=== PATIENT | female | born 1945 | race Caucasian/White ===

== ENCOUNTER 2017-12-07 15:59 | Inpatient (IN) | payer MEDICARE ==
[2017-12-07 16:52] LABS: Basophils % (A) 0 %; Eosinophils # (A) 0.1 k/uL (0-0.7); Eosinophils % (A) 1 %; HGB 13.3 gm/dL (11.4-16.0); Lymphocytes # (A) 1.9 k/uL (1.0-4.8); Lymphocytes % (A) 23 %; MCH 28.7 pg (25.0-35.0); MCHC 31.5 g/dL (31.0-37.0); MCV 90.9 fL (80.0-100.0); Mean Platelet Volume 6.8; Monocytes # (A) 0.4 k/uL (0-1.0); Monocytes % (A) 5 %; Neutrophils # (A) 5.6 k/uL (1.3-7.7); Neutrophils % (A) 69 %; Platelet Count 213 k/uL (150-450); RBC 4.62 m/uL (3.80-5.40); RDW 13.9 % (11.5-15.5); WBC 8.2 k/uL (3.8-10.6)
--- NOTE | 2017-12-07 16:53 | ED ---
General Adult HPI - General Chief complaint: Arrhythmia/Palpitations Stated complaint: Abnormal EKG, SOB Time Seen by Provider: 12/07/17 16:08 Source: patient Mode of arrival: wheelchair Limitations: no limitations - History of Present Illness Initial comments: This is a 72-year-old female who presents emergency department for shortness of breath and a shaking sensation. She states it started 3 days ago. She states that she is vibrating. She states that it feels similar to when she had a viral pneumonia in the past. She denies any fevers or chills. No lower extremity swelling. No abdominal pain. No nausea, vomiting, or diarrhea. She went to a [facility] who did an EKG and were concerned due to EKG abnormalities and sent her here. Patient denies any chest pain. She follows with Dr. Watson who is her supervisor net making and had an echo and a stress test recently that were unremarkable. No other complaints. - Related Data Home Medications Medication Instructions Recorded Confirmed Levothyroxine Sodium [Synthroid] 175 mcg PO DAILY 05/07/14 12/07/17 Insulin Aspart Protam & Aspart 40 unit SQ AC-TID 12/07/17 12/07/17 [Novolog Mix 70-30 Flexpen Syrn] Metoprolol Tartrate [Lopressor] 12.5 mg PO BID 12/07/17 12/07/17 Allergies Allergy/AdvReac Type Severity Reaction Status Date / Time nitrofurantoin Allergy Rash/Hives Verified 12/07/17 17:30 macrocrystalline [From Macrodantin] phenazopyridine HCl Allergy Rash/Hives Verified 12/07/17 17:30 [From Pyridium] Review of Systems ROS Statement: Those systems with pertinent positive or pertinent negative responses have been documented in the HPI. ROS Other: All systems not noted in ROS Statement are negative. Past Medical History Past Medical History: Atrial Fibrillation, Diabetes Mellitus, Hearing Disorder / Deafness, Hyperlipidemia, Osteoarthritis (OA), Sleep Apnea/CPAP/BIPAP, Thyroid Disorder Additional Past Medical History / Comment(s): USES BIPAP, HX AORTIC STENOSIS. HX A-FIB WITH PNEUMONIA,CATARACT LT EYE History of Any Multi-Drug Resistant Organisms: VRE Date of last positivie culture/infection: 02/02/13 MDRO Source:: URINE Past Surgical History: Joint Replacement, Orthopedic Surgery, Tonsillectomy, Tubal Ligation Additional Past Surgical History / Comment(s): JOSEPH THUMB JOINTS REPLACED; JOSEPH CTR; JOSEPH KNEE ARTHROSCOPIES; TOTAL RT KNEE 04/2013, LATER HAD MANIPULATION OF KNEE. HAD THYROID AND PARATHYROID REMOVAL. TOTAL LEFT KNEE REPLACEMENT, CATARACT RT EYE Past Anesthesia/Blood Transfusion Reactions: No Reported Reaction Past Psychological History: No Psychological Hx Reported Smoking Status: Never smoker Past Alcohol Use History: None Reported Past Drug Use History: None Reported - Past Family History Sister(s) Family Medical History: Cancer Additional Family Medical History / Comment(s): BREAST CANCER General Exam - General Exam Comments Initial Comments: Constitutional: Awake alert Appears comfortable Head: Normocephalic atraumatic Eyes: no conjunctival injection No scleral icterus EOMI Neck: No JVD Supple Heart: Regular rate rhythm normal S1-S2 no murmurs Lungs: Clear to auscultation bilaterally No wheezing No rales Abdomen: Soft nondistended nontender Extremities: Non edematous DP pulses intact Radial pulses intact Neuro: A&Ox3 No focal neurologic deficits Psych: Appropriate mood and affect Limitations: no limitations Course Vital Signs 12/07/17 12/07/17 12/07/17 16:01 16:53 17:36 Temperature 98.8 F Pulse Rate 66 66 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 There is a marked first-degree AV block with a ME of 302. There is no abnormal ST segment changes or T-wave inversions. QTC is 455. Other intervals normal. No ectopy. Medical Decision Making - Medical Decision Making This is a 72-year-old female who presents emergency report for exertional dyspnea and a vibrating sensation in her chest. The patient does have a marked first-degree AV block on her EKG. I got her up and ambulated her and she became extremely tachypneic and short of breath. She did not become hypoxic however heart rate did dip down into the 40s at that time. She states that that time is when she felt the vibrating sensation in her chest. His troponin is mildly elevated. Due to her history of aortic stenosis, the exertional components of her examination, and the bradycardia I'm concerned about her heart. I think that she needs to stay in the hospital and be evaluated by a supervisor net making. Dr. Parikh accepts the admission. - Lab Data Result diagrams: 12/07/17 16:32 12/07/17 16:32 Lab Results 12/07/17 12/07/17 12/07/17 Range/Units 16:32 16:32 16:32 WBC 8.2 (3.8-10.6) k/uL RBC 4.62 (3.80-5.40) m/uL Hgb 13.3 (11.4-16.0) gm/dL Hct 42.0 (34.0-46.0) % MCV 90.9 (80.0-100.0) fL MCH 28.7 (25.0-35.0) pg MCHC 31.5 (31.0-37.0) g/dL RDW 13.9 (11.5-15.5) % Plt Count 213 (150-450) k/uL Neutrophils % 69 % Lymphocytes % 23 % Monocytes % 5 % Eosinophils % 1 % Basophils % 0 % Neutrophils # 5.6 (1.3-7.7) k/uL Lymphocytes # 1.9 (1.0-4.8) k/uL Monocytes # 0.4 (0-1.0) k/uL Eosinophils # 0.1 (0-0.7) k/uL Basophils # 0.0 (0-0.2) k/uL PT (9.0-12.0) sec INR (<1.2) APTT (22.0-30.0) sec Sodium 142 (137-145) mmol/L Potassium 4.5 (3.5-5.1) mmol/L Chloride 104 (98-107) mmol/L Carbon Dioxide 28 (22-30) mmol/L Anion Gap 10 mmol/L BUN 9 (7-17) mg/dL Creatinine 0.77 (0.52-1.04) mg/dL Est GFR (MDRD) Af Amer >60 (>60 ml/min/1.73 sqM) Est GFR (MDRD) Non-Af >60 (>60 ml/min/1.73 sqM) Glucose 146 H (74-99) mg/dL Calcium 9.8 (8.4-10.2) mg/dL Magnesium 1.5 L (1.6-2.3) mg/dL Total Bilirubin 0.5 (0.2-1.3) mg/dL AST 25 (14-36) U/L ALT 35 (9-52) U/L Alkaline Phosphatase 89 (38-126) U/L CK-MB (CK-2) 2.1 (0.0-2.4) ng/mL Troponin I 0.038 H* (0.000-0.034) ng/mL NT-Pro-B Natriuret Pep pg/mL Total Protein 6.8 (6.3-8.2) g/dL Albumin 4.1 (3.5-5.0) g/dL 12/07/17 12/07/17 Range/Units 16:32 16:32 WBC (3.8-10.6) k/uL RBC (3.80-5.40) m/uL Hgb (11.4-16.0) gm/dL Hct (34.0-46.0) % MCV (80.0-100.0) fL MCH (25.0-35.0) pg MCHC (31.0-37.0) g/dL RDW (11.5-15.5) % Plt Count (150-450) k/uL Neutrophils % % Lymphocytes % % Monocytes % % Eosinophils % % Basophils % % Neutrophils # (1.3-7.7) k/uL Lymphocytes # (1.0-4.8) k/uL Monocytes # (0-1.0) k/uL Eosinophils # (0-0.7) k/uL Basophils # (0-0.2) k/uL PT 10.5 (9.0-12.0) sec INR 1.1 (<1.2) APTT 22.6 (22.0-30.0) sec Sodium (137-145) mmol/L Potassium (3.5-5.1) mmol/L Chloride (98-107) mmol/L Carbon Dioxide (22-30) mmol/L Anion Gap mmol/L BUN (7-17) mg/dL Creatinine (0.52-1.04) mg/dL Est GFR (MDRD) Af Amer (>60 ml/min/1.73 sqM) Est GFR (MDRD) Non-Af (>60 ml/min/1.73 sqM) Glucose (74-99) mg/dL Calcium (8.4-10.2) mg/dL Magnesium (1.6-2.3) mg/dL Total Bilirubin (0.2-1.3) mg/dL AST (14-36) U/L ALT (9-52) U/L Alkaline Phosphatase (38-126) U/L CK-MB (CK-2) (0.0-2.4) ng/mL Troponin I (0.000-0.034) ng/mL NT-Pro-B Natriuret Pep 598 pg/mL Total Protein (6.3-8.2) g/dL Albumin (3.5-5.0) g/dL Disposition Clinical Impression: Exertional dyspnea, Bradycardia, Palpitations, Aortic stenosis Disposition: ADMITTED IP TO THIS [facility] Condition: Stable
[2017-12-07 16:57] LABS: Partial Thromboplastin Time 22.6 sec (22.0-30.0)
--- NOTE | 2017-12-07 16:57 | XR ---
EXAMINATION TYPE: XR chest 2V DATE OF EXAM: 12/07/2017 COMPARISON: 02/03/2013 HISTORY: 72 year-old female shortness of breath TECHNIQUE: PA and lateral views FINDINGS: The cardiomediastinal silhouette, aorta, and pulmonary vasculature are within normal limits. Stable m ild peribronchial cuffing. Strandy left basilar atelectasis. Otherwise, no consolidation or pleural e ffusion. IMPRESSION: Chronic changes, possible chronic bronchitis/asthma. Otherwise, no acute process seen.
[2017-12-07 16:59] LABS: INR 1.1 (<1.2); Prothrombin Time 10.5 sec (9.0-12.0)
[2017-12-07 17:12] LABS: ALT 35 U/L (9-52); AST 25 U/L (14-36); Albumin 4.1 g/dL (3.5-5.0); Alkaline Phosphatase 89 U/L (38-126); Anion Gap 10 mmol/L; Blood Urea Nitrogen 9 mg/dL (7-17); Calcium 9.8 mg/dL (8.4-10.2); Carbon Dioxide 28 mmol/L (22-30); Chloride 104 mmol/L (98-107); Glucose 146 mg/dL (74-99); Magnesium 1.5 mg/dL (1.6-2.3); Potassium 4.5 mmol/L (3.5-5.1); Sodium 142 mmol/L (137-145); Total Bilirubin 0.5 mg/dL (0.2-1.3); Total Protein 6.8 g/dL (6.3-8.2)
[2017-12-07 17:23] LABS: Creatine Kinase MB 2.1 ng/mL (0.0-2.4)
[2017-12-07 17:25] LABS: Troponin I 0.038 ng/mL (0.000-0.034)
[2017-12-07] MEDS ORDERED: ASPIRIN 81 MG PO STA (18:13)
[2017-12-07] MEDS ORDERED: NALOXONE 0.4 MG/ML 1 ML VIAL IV PRN (18:40)
[2017-12-07 19:20] LABS: Appearance,Urine Clear (Clear); Bacteria,Urine Rare /hpf; Bilirubin,Urine Negative (Negative); Blood,Urine Negative (Negative); Color,Urine Light Yellow; Glucose,Urine (UA) Negative (Negative); Ketones,Urine Negative (Negative); Leukocyte Esterase,Urine Trace (Negative); Nitrite,Urine Negative (Negative); Protein,Urine Negative (Negative); RBC,Urine <1 /hpf (0-5); Specific Gravity,Urine 1.005 (1.001-1.035); Urobilinogen,Urine <2.0 mg/dL (<2.0); WBC,Urine 1 /hpf (0-5)
[2017-12-07 20:18] LABS: Glucose,Whole Blood 135 mg/dL (75-99)
[2017-12-07] MEDS ORDERED: METOPROLOL TARTRATE 12.5 MG TAB PO SCH (21:00)
[2017-12-07 23:49] LABS: Creatine Kinase MB 1.9 ng/mL (0.0-2.4)
[2017-12-07 23:50] LABS: Troponin I 0.04 ng/mL (0.000-0.034)
[2017-12-08 05:54] LABS: Basophils # (A) 0.1 k/uL (0-0.2); Basophils % (A) 1 %; Eosinophils # (A) 0.2 k/uL (0-0.7); Eosinophils % (A) 2 %; HCT 39.4 % (34.0-46.0); HGB 12.5 gm/dL (11.4-16.0); Hypochromasia Slight; Lymphocytes # (A) 1.9 k/uL (1.0-4.8); Lymphocytes % (A) 25 %; MCH 28.9 pg (25.0-35.0); MCHC 31.7 g/dL (31.0-37.0); MCV 91.1 fL (80.0-100.0); Mean Platelet Volume 7.5; Monocytes # (A) 0.4 k/uL (0-1.0); Monocytes % (A) 5 %; Neutrophils % (A) 66 %; Platelet Count 189 k/uL (150-450); RBC 4.33 m/uL (3.80-5.40); WBC 7.6 k/uL (3.8-10.6)
[2017-12-08 06:07] LABS: Anion Gap 7 mmol/L; Blood Urea Nitrogen 14 mg/dL (7-17); Calcium 9.2 mg/dL (8.4-10.2); Carbon Dioxide 31 mmol/L (22-30); Chloride 104 mmol/L (98-107); Glucose 87 mg/dL (74-99); Magnesium 1.7 mg/dL (1.6-2.3); Potassium 4.4 mmol/L (3.5-5.1); Sodium 142 mmol/L (137-145)
[2017-12-08] MEDS: INSULN ASP PRT/INSULIN ASPART 100 UNIT/ML 10 ML VIAL SQ SCH ×3 (06:09→17:40)
[2017-12-08] MEDS: LEVOTHYROXINE 100 MCG TAB PO SCH (06:09)
[2017-12-08] MEDS: LEVOTHYROXINE 75 MCG TAB PO SCH (06:09)
[2017-12-08 06:29] LABS: Creatine Kinase MB 1.5 ng/mL (0.0-2.4)
[2017-12-08 06:31] LABS: Glucose,Whole Blood 115 mg/dL (75-99)
[2017-12-08 06:33] LABS: Troponin I 0.042 ng/mL (0.000-0.034)
[2017-12-08] MEDS ORDERED: ACETAMINOPHEN TAB 325 MG TAB PO PRN ×2 (10:32→12:28)
[2017-12-08] MEDS ORDERED: ONDANSETRON 4 MG/2 ML VIAL IVP PRN (12:28)
[2017-12-08 12:33] LABS: Glucose,Whole Blood 185 mg/dL (75-99)
--- NOTE | 2017-12-08 14:33 | P.HPIM ---
History of Present Illness H&P Date: 12/08/17 Chief Complaint: Chest discomfort and vibrating sensation This is a 72-year-old female with past medical history noted below who presented to the emergency room with chest discomfort and upper respiratory tract symptoms. Patient said that for the past few days she has not been feeling well. She described flulike symptoms with no significant shortness of breath. No fevers or chills. No gray chest pain. Patient said that she noted that her heart rate was dropping into the 50s at times. She usually take metoprolol twice a day at home. She went to a local urgent care and a 12 leads EKG was performed showing evidence of first-degree heart block. Patient was sent to the emergency room for further evaluation. She was hemodynamically stable. She reported dizziness and lightheadedness. She is also feeling weak. She was evaluated by electrophysiology and plan is to proceed with pacemaker placement in the morning. Review of Systems Review of system: 14 points review of systems were obtained and were negative except to what were mentioned in the HPI. Past Medical History Past Medical History: Atrial Fibrillation, Diabetes Mellitus, Hearing Disorder / Deafness, Hyperlipidemia, Osteoarthritis (OA), Sleep Apnea/CPAP/BIPAP, Thyroid Disorder Additional Past Medical History / Comment(s): USES BIPAP, HX AORTIC STENOSIS. HX A-FIB WITH PNEUMONIA,CATARACT LT EYE History of Any Multi-Drug Resistant Organisms: VRE Date of last positivie culture/infection: 02/02/13 MDRO Source:: URINE Past Surgical History: Joint Replacement, Orthopedic Surgery, Tonsillectomy, Tubal Ligation Additional Past Surgical History / Comment(s): JOSEPH THUMB JOINTS REPLACED; OJSEPH CTR; JOSEPH KNEE ARTHROSCOPIES; TOTAL RT KNEE 04/2013, LATER HAD MANIPULATION OF KNEE. HAD THYROID AND PARATHYROID REMOVAL. TOTAL LEFT KNEE REPLACEMENT, CATARACT RT EYE Past Anesthesia/Blood Transfusion Reactions: No Reported Reaction Past Psychological History: No Psychological Hx Reported Smoking Status: Never smoker Past Alcohol Use History: None Reported Past Drug Use History: None Reported - Past Family History Sister(s) Family Medical History: Cancer Additional Family Medical History / Comment(s): BREAST CANCER Medications and Allergies Home Medications Medication Instructions Recorded Confirmed Type Levothyroxine Sodium [Synthroid] 175 mcg PO DAILY 05/07/14 12/07/17 History Insulin Aspart Protam & Aspart 20 - 30 unit SQ HS 12/07/17 12/07/17 History [NovoLOG MIX 70-30 Flexpen] Insulin Aspart Protam & Aspart 40 unit SQ AC-TID 12/07/17 12/07/17 History [Novolog Mix 70-30 Flexpen Syrn] Metoprolol Tartrate [Lopressor] 12.5 mg PO BID 12/07/17 12/07/17 History RX: Calcium Carbonate 1,000 mg PO DAILY 12/08/17 12/08/17 History Allergies Allergy/AdvReac Type Severity Reaction Status Date / Time nitrofurantoin Allergy Rash/Hives Verified 12/07/17 17:30 macrocrystalline [From Macrodantin] phenazopyridine HCl Allergy Rash/Hives Verified 12/07/17 17:30 [From Pyridium] Physical Exam Vitals: Vital Signs Temp Pulse Pulse Resp BP BP Pulse Ox 12/08/17 12:00 64 18 138/63 95 12/08/17 08:15 141/69 12/08/17 08:00 47 L 18 165/70 96 12/08/17 04:00 97.3 F L 55 L 16 113/58 98 12/07/17 23:23 98.8 F 55 L 18 109/53 98 12/07/17 20:00 97.9 F 60 18 138/61 97 12/07/17 19:16 99.7 F H 60 18 111/57 100 12/07/17 18:33 44 L 16 131/58 100 12/07/17 17:36 66 18 162/68 98 12/07/17 16:53 66 12/07/17 16:01 98.8 F 66 20 152/67 96 Intake and Output 12/07/17 12/08/17 12/08/17 22:59 06:59 14:59 Intake Total 20 10 200 Balance 20 10 200 Intake: IV 20 10 0.9 20 10 Oral 200 Other: Weight 115.666 kg 115.5 kg General: The patient is awake and alert, in no distress Eye: there is normal conjunctiva bilaterally. Neck: The neck is supple, there is no JVD. Cardiovascular: Normal S1-S2, no S3-S4, no murmurs. Respiratory: Lungs clear to auscultation bilaterally Gastrointestinal: Abdomen is soft, nontender Musculoskeletal: There is no pedal edema. Neurological:. Speech is normal. Skin: Skin is warm and dry Results CBC & Chem 7: 12/08/17 05:21 12/08/17 05:21 Labs: Abnormal Lab Results - Last 24 Hours (Table) 12/07/17 12/07/17 12/07/17 Range/Units 16:32 16:32 18:54 Carbon Dioxide (22-30) mmol/L Glucose 146 H (74-99) mg/dL POC Glucose (mg/dL) (75-99) mg/dL Magnesium 1.5 L (1.6-2.3) mg/dL Total Creatine Kinase (30-135) U/L Troponin I 0.038 H* (0.000-0.034) ng/mL Ur Leukocyte Esterase Trace H (Negative) Urine Bacteria Rare H (None) /hpf 12/07/17 12/07/17 12/08/17 Range/Units 20:17 22:50 05:21 Carbon Dioxide (22-30) mmol/L Glucose (74-99) mg/dL POC Glucose (mg/dL) 135 H (75-99) mg/dL Magnesium (1.6-2.3) mg/dL Total Creatine Kinase 187 H 190 H (30-135) U/L Troponin I 0.040 H* 0.042 H* (0.000-0.034) ng/mL Ur Leukocyte Esterase (Negative) Urine Bacteria (None) /hpf 12/08/17 12/08/17 12/08/17 Range/Units 05:21 06:30 11:23 Carbon Dioxide 31 H (22-30) mmol/L Glucose (74-99) mg/dL POC Glucose (mg/dL) 115 H 185 H (75-99) mg/dL Magnesium (1.6-2.3) mg/dL Total Creatine Kinase (30-135) U/L Troponin I (0.000-0.034) ng/mL Ur Leukocyte Esterase (Negative) Urine Bacteria (None) /hpf Thrombosis Risk Factor Assmnt - Choose All That Apply Any of the Below Risk Factors Present?: Yes Each Factor Represents 1 point: Abnormal pulmonary function (COPD), Obesity ( BMI >25) Each Risk Factor Represents 2 Points: Age 61-74 years Thrombosis Risk Factor Assessment Total Risk Factor Score: 4 Thrombosis Risk Factor Assessment Level: Moderate Risk Assessment and Plan Assessment: 1. Symptomatic first-degree AV block: AL interval 302. I would check thyroid function tests. Metoprolol was discontinued. Patient is hemodynamically stable. She was seen and evaluated by EP. Plan to proceed with pacemaker implantation in the morning. 2. Hypothyroidism awaiting TSH 3. Type 2 diabetes mellitus resume home dose of insulin 4. Hypomagnesemia, replaced Today, I reviewed her medication list and lab work results. Continue current regimen. Appreciate EP recommendations. Repeat lab work in the morning.
[2017-12-08 18:15] LABS: Glucose,Whole Blood 171 mg/dL (75-99)
[2017-12-08] MEDS: HEPARIN SODIUM,PORCINE 5,000 UNIT/ML 1 ML VIAL SQ SCH (19:10)
[2017-12-08] MEDS: SODIUM CHLORIDE 0.9% 1,000 ML IV SCH (19:10)
[2017-12-08 21:16] LABS: Glucose,Whole Blood 152 mg/dL (75-99)
[2017-12-09 06:22] LABS: Glucose,Whole Blood 122 mg/dL (75-99)
[2017-12-09] MEDS: LEVOTHYROXINE 75 MCG TAB PO SCH (06:28)
[2017-12-09] MEDS: LEVOTHYROXINE 100 MCG TAB PO SCH (06:28)
[2017-12-09] MEDS: INSULN ASP PRT/INSULIN ASPART 100 UNIT/ML 10 ML VIAL SQ SCH ×2 (06:29→11:42)
[2017-12-09 06:41] LABS: Basophils # (A) 0.1 k/uL (0-0.2); Basophils % (A) 1 %; Eosinophils # (A) 0.2 k/uL (0-0.7); Eosinophils % (A) 3 %; HCT 44.7 % (34.0-46.0); HGB 13.8 gm/dL (11.4-16.0); Lymphocytes # (A) 2.6 k/uL (1.0-4.8); Lymphocytes % (A) 35 %; MCH 28.4 pg (25.0-35.0); MCHC 30.9 g/dL (31.0-37.0); MCV 91.9 fL (80.0-100.0); Mean Platelet Volume 7.3; Monocytes # (A) 0.4 k/uL (0-1.0); Monocytes % (A) 5 %; Neutrophils # (A) 4.1 k/uL (1.3-7.7); Neutrophils % (A) 55 %; Platelet Count 215 k/uL (150-450); RBC 4.86 m/uL (3.80-5.40); WBC 7.5 k/uL (3.8-10.6)
[2017-12-09 06:54] LABS: ALT 38 U/L (9-52); AST 30 U/L (14-36); Albumin 4.1 g/dL (3.5-5.0); Alkaline Phosphatase 93 U/L (38-126); Anion Gap 12 mmol/L; Blood Urea Nitrogen 17 mg/dL (7-17); Calcium 9.7 mg/dL (8.4-10.2); Carbon Dioxide 27 mmol/L (22-30); Chloride 102 mmol/L (98-107); Glucose 131 mg/dL (74-99); Potassium 4.3 mmol/L (3.5-5.1); Sodium 141 mmol/L (137-145); Total Bilirubin 0.5 mg/dL (0.2-1.3); Total Protein 6.9 g/dL (6.3-8.2)
[2017-12-09 07:48] LABS: T4, Free (Free Thyroxine) 1.25 ng/dL (0.78-2.19)
[2017-12-09] MEDS: HEPARIN SODIUM,PORCINE 5,000 UNIT/ML 1 ML VIAL SQ SCH ×2 (08:29→20:58)
[2017-12-09 11:45] LABS: Glucose,Whole Blood 170 mg/dL (75-99)
--- NOTE | 2017-12-09 12:35 | P.PN ---
Subjective Progress Note Date: 12/09/17 This is a 72-year-old female with past medical history noted below who presented to the emergency room with chest discomfort and upper respiratory tract symptoms. Patient said that for the past few days she has not been feeling well. She described flulike symptoms with no significant shortness of breath. No fevers or chills. No gray chest pain. Patient said that she noted that her heart rate was dropping into the 50s at times. She usually take metoprolol twice a day at home. She went to a local urgent care and a 12 leads EKG was performed showing evidence of first-degree heart block. Patient was sent to the emergency room for further evaluation. She was hemodynamically stable. She reported dizziness and lightheadedness. She is also feeling weak. She was evaluated by electrophysiology and plan is to proceed with pacemaker placement in the morning. 12/09/2017 patient has been bradycardic evidence of heart block. She is scheduled for pacemaker today. Metoprolol discontinued during this admission. Patient reports that she just doesn't feel well and shaky Objective - Vital Signs Vital signs: Vital Signs Temp 98.1 F 12/09/17 08:00 Pulse 60 12/09/17 04:00 Resp 16 12/09/17 08:00 BP 135/63 12/09/17 08:00 Pulse Ox 98 12/09/17 08:00 Intake & Output 12/08/17 12/09/17 12/09/17 18:59 06:59 18:59 Intake Total 200 20 Output Total 500 Balance -300 20 Weight 114 kg Intake: IV 20 0.9 20 Oral 200 Output: Urine 500 - Exam Head normocephalic Neck supple Lungs clear to auscultation bilaterally no wheezing or crackles Heart positive murmur Abdomen is soft nontender nondistended positive bowel sounds no hepatosplenomegaly Extremities no edema Neuro alert and orientated to 3 - Labs CBC & Chem 7: 12/09/17 06:17 12/09/17 06:17 Labs: Abnormal Lab Results - Last 24 Hours (Table) 12/08/17 12/08/17 12/08/17 Range/Units 11:23 18:00 21:14 MCHC (31.0-37.0) g/dL Glucose (74-99) mg/dL POC Glucose (mg/dL) 185 H 171 H 152 H (75-99) mg/dL TSH (0.465-4.680) mIU/L 12/09/17 12/09/17 12/09/17 Range/Units 06:17 06:17 06:18 MCHC 30.9 L (31.0-37.0) g/dL Glucose 131 H (74-99) mg/dL POC Glucose (mg/dL) 122 H (75-99) mg/dL TSH <0.015 L (0.465-4.680) mIU/L Assessment and Plan Assessment: 1. Symptomatic second-degree heart block : Metoprolol discontinued. Cardiology is planning for pacemaker today. 2. Hypothyroidism : Continue home dose of Synthroid. Free T4 normal at 1.25, TSH less than 0.015 3. Type 2 diabetes mellitus: Continue insulin 4. Hypomagnesemia, replaced DVT prophylaxis subcu heparin I performed an examination of the patient and discussed their management with the physician Tree Sapper. I have reviewed the Physician Tree Sapper's notes and agree with the documented findings and plan of care
[2017-12-09] MEDS ORDERED: ceFAZolin 1,000 MG in SODIUM CHLORIDE 0.9% IRRIGATIO 250 ML IRRIGATION ONE (13:54)
[2017-12-09] MEDS ORDERED: ceFAZolin IN SWFI 2 GM/20 ML SYRINGE IVP ONE ×2 (15:00→18:45)
[2017-12-09] MEDS ORDERED: ceFAZolin IN SWFI 2 GM/20 ML SYRINGE IVP STA (16:19)
[2017-12-09] MEDS ORDERED: ceFAZolin 1,000 MG in DEXTROSE/WATER 1 50ML.BAG IVPB STA (16:20)
[2017-12-09] MEDS: SODIUM CHLORIDE 0.9% 1,000 ML IV SCH ×2 (17:33→17:40)
[2017-12-09] MEDS ORDERED: IOHEXOL 350 MG/ML 50ML BOTTLE INJ ONE (17:49)
[2017-12-09] MEDS ORDERED: ACETAMINOPHEN TAB 325 MG TAB PO PRN (17:51)
[2017-12-09] MEDS ORDERED: ACETAMINOPHEN IV (For NPO) 1,000 MG in EMPTY BAG 1 BAG IVPB ONE (18:00)
[2017-12-09] MEDS ORDERED: MIDAZOLAM 2 MG/2 ML VIAL ONE (18:05)
[2017-12-09] MEDS ORDERED: MIDAZOLAM 2 MG/2 ML VIAL IV ONE (18:06)
[2017-12-09] MEDS ORDERED: LIDOCAINE 2% INJ 20 MG/ML SQ ONE (18:07)
[2017-12-09] MEDS ORDERED: fentaNYL (PF) 50 MCG/ML 2 ML AMP ONE (18:30)
[2017-12-09] MEDS: fentaNYL (PF) 50 MCG/ML 2 ML AMP IV ONE ×2 (18:36→18:55)
[2017-12-09] MEDS ORDERED: LIDOCAINE 1% INJ 10MG/ML (20 ML MDV) SQ ONE ×4 (18:40→18:46)
[2017-12-09] MEDS ORDERED: ceFAZolin 1,000 MG in DEXTROSE/WATER 1 50ML.BAG IVPB ONE (18:45)
--- NOTE | 2017-12-09 19:53 | P.PCN ---
Preoperative Diagnosis: Transvenous temporary pacing procedure Indication for the procedure: Severe underlying bradycardia secondary to intermittent complete heart block Patient was brought to the EP lab in a fasting state. Written informed consent was obtained prior to the procedure. The right groin was prepped and draped as a protocol. A 6-Syriac sheath was placed in the right femoral vein. Via this, a temporary pacing catheter was placed in the right ventricle. Thresholds were interrogated. Temporary pacing was performed through the rest of the procedure. At the end of the entire procedure, the TVP was removed. The sheath was removed and hemostasis was assured. Patient tolerated the procedure well without any acute complications. Procedure performed Transvenous temporary pacing
--- NOTE | 2017-12-09 19:53 | P.PCN ---
Preoperative Diagnosis: My Conscious SedationPatient underwent EP procedure under conscious sedation/ moderate sedation, monitoring of the level of consciousness and physiologic parameters including but not limited to vital signs and oxygenation. Patient tolerated the procedure well without any acute complications. Start time: 1799 Stop time: 1946 Increase procedural services This was a long procedure involving dual-chamber pacemaker implantation, on account of patient's body habitus, the pocket is very deep, very deep subfascial pocket made, and at the end of the procedure it was sutured in 6 layers Disposition: floor
--- NOTE | 2017-12-09 19:59 | P.PCN ---
Preoperative Diagnosis: Successful dual-chamber pacemaker implantation for intermittent complete heart block, symptomatic with underlying aortic valve disease and preserved LV systolic function Full dictation separately
[2017-12-09 20:38] LABS: Glucose,Whole Blood 194 mg/dL (75-99)
[2017-12-09] MEDS: LOSARTAN 50 MG TAB PO SCH (20:55)
--- NOTE | 2017-12-09 21:36 | PCN ---
PROCEDURE NOTE 72-year-old female who presented with dizzy spells and feeling very odd when she stood up and walked around. She was in intermittent complete heart block with an escape rhythm in the 40s. The baseline ECG has a very prolonged HI interval but on telemetry the symptoms corresponded to third-degree heart block. She also has aortic valve disease. She is brought to the EP lab in a fasting state. Written informed consent was obtained prior to the procedure. After placement of the PVP, the left pectoral area was prepped and draped as per protocol. 1% lidocaine was used for local anesthesia. A 4 cm incision was made parallel to the deltopectoral groove about 1.5 cm medial to it. The incision was carried down to the level of the pectoralis muscle. In view of the large body habitus, this was a very large pocket and a deep pocket. The left axillary vein was accessed at 2 separate points under fluoroscopy and via appropriately-sized introducer sheaths, two passive leads were positioned in the right heart. The atrial lead was a [employer] model #1944, 46 cm in length and serial number [id number]. P waves were 5 mV. Pacing impedance 690 ohms. Pacing threshold 0.75 V at 0.4 milliseconds. The RV lead was a [employer], model #1948, 58 cm in length and serial number [id number]. R-waves 12 mV, pacing impedance 810 ohms, pacing threshold 0.5 V at 0.4 milliseconds. 10 V test negative. Both leads were secured to the underlying pectoralis fascia using 2 nonabsorbable sutures. Pocket was irrigated with antibiotic solution. Leads were connected to the generator ([employer] model number [id number] serial #[id number]) leads and the generator were then placed in the subfascial pocket. The wound was closed in 6 layers and dressed per protocol. This was a long closure on account of a very deep pocket. The device was then programmed to DDD at 60 ppm. MMODL / IJN: [id number] /
[2017-12-09] MEDS: ceFAZolin IN SWFI 2 GM/20 ML SYRINGE IVP SCH (23:03)
[2017-12-10] MEDS: HYDROcodone/APAP 5-325MG 1 EACH TAB PO PRN ×2 (00:29→15:57)
[2017-12-10] MEDS: ceFAZolin IN SWFI 2 GM/20 ML SYRINGE IVP SCH ×2 (05:08→15:46)
[2017-12-10 06:29] LABS: Glucose,Whole Blood 254 mg/dL (75-99)
[2017-12-10] MEDS: LEVOTHYROXINE 100 MCG TAB PO SCH (06:36)
[2017-12-10] MEDS: LEVOTHYROXINE 75 MCG TAB PO SCH (06:36)
[2017-12-10] MEDS: INSULN ASP PRT/INSULIN ASPART 100 UNIT/ML 10 ML VIAL SQ SCH ×4 (06:39→17:19)
[2017-12-10 06:41] LABS: Basophils # (A) 0.1 k/uL (0-0.2); Basophils % (A) 1 %; Eosinophils # (A) 0.1 k/uL (0-0.7); Eosinophils % (A) 2 %; HCT 43.2 % (34.0-46.0); HGB 13.6 gm/dL (11.4-16.0); Hypochromasia Slight; Lymphocytes # (A) 1.6 k/uL (1.0-4.8); Lymphocytes % (A) 20 %; MCH 28.8 pg (25.0-35.0); MCHC 31.5 g/dL (31.0-37.0); MCV 91.5 fL (80.0-100.0); Mean Platelet Volume 7.6; Monocytes # (A) 0.4 k/uL (0-1.0); Monocytes % (A) 5 %; Neutrophils # (A) 5.9 k/uL (1.3-7.7); Neutrophils % (A) 72 %; Platelet Count 230 k/uL (150-450); RBC 4.72 m/uL (3.80-5.40); RDW 15.2 % (11.5-15.5); WBC 8.2 k/uL (3.8-10.6)
[2017-12-10 06:51] LABS: ALT 38 U/L (9-52); AST 34 U/L (14-36); Alkaline Phosphatase 84 U/L (38-126); Anion Gap 11 mmol/L; Blood Urea Nitrogen 20 mg/dL (7-17); Calcium 9.2 mg/dL (8.4-10.2); Carbon Dioxide 28 mmol/L (22-30); Chloride 101 mmol/L (98-107); Glucose 287 mg/dL (74-99); Potassium 5.2 mmol/L (3.5-5.1); Sodium 140 mmol/L (137-145); Total Bilirubin 0.5 mg/dL (0.2-1.3); Total Protein 6.7 g/dL (6.3-8.2)
--- NOTE | 2017-12-10 08:16 | XR ---
EXAMINATION TYPE: XR chest 2V DATE OF EXAM: 12/10/2017 COMPARISON: 12/07/2017 HISTORY: Shortness of breath TECHNIQUE: Frontal and lateral views of the chest are obtained. FINDINGS: Dual-lead pacer is noted with distal leads overlying the right atrium and right ventricle. No evidenc e for pneumothorax. Scattered senescent parenchymal changes noted. Hyperinflation compatible with COPD. No evidence for infiltrate. No evidence for atelectasis. Heart size is stable. Mediastinal structures are stable and grossly unremarkable. No evidence for hilar prominence. Degenerative changes dorsal spine. IMPRESSION: 1. No evidence for acute pulmonary disease.
[2017-12-10] MEDS: HEPARIN SODIUM,PORCINE 5,000 UNIT/ML 1 ML VIAL SQ SCH ×2 (08:36→20:55)
[2017-12-10] MEDS: LOSARTAN 50 MG TAB PO SCH (08:36)
[2017-12-10 08:42] VITALS: RESP 16
--- NOTE | 2017-12-10 10:10 | P.PN ---
Subjective Progress Note Date: 12/10/17 This is a 72-year-old female with past medical history noted below who presented to the emergency room with chest discomfort and upper respiratory tract symptoms. Patient said that for the past few days she has not been feeling well. She described flulike symptoms with no significant shortness of breath. No fevers or chills. No gray chest pain. Patient said that she noted that her heart rate was dropping into the 50s at times. She usually take metoprolol twice a day at home. She went to a local urgent care and a 12 leads EKG was performed showing evidence of first-degree heart block. Patient was sent to the emergency room for further evaluation. She was hemodynamically stable. She reported dizziness and lightheadedness. She is also feeling weak. She was evaluated by electrophysiology and plan is to proceed with pacemaker placement in the morning. 12/09/2017 patient has been bradycardic evidence of heart block. She is scheduled for pacemaker today. Metoprolol discontinued during this admission. Patient reports that she just doesn't feel well and shaky 12/10/2017 patient is status post pacemaker placement yesterday evening. Patient reports improvement in her symptoms. She feels better today. She has been up and a be relating. She is no longer having that shakiness. Denies any chest pain or shortness breath. Denies any nausea or vomiting. Reports having bowel movements. Denies any difficulty urinating. Objective - Vital Signs Vital signs: Vital Signs Temp 98.7 F 12/10/17 08:00 Pulse 70 12/10/17 08:00 Resp 16 12/10/17 08:00 BP 126/63 12/10/17 08:00 Pulse Ox 95 12/10/17 08:00 Intake & Output 12/09/17 12/10/17 12/10/17 18:59 06:59 18:59 Intake Total 700 40 390 Output Total 400 Balance 300 40 390 Weight 113.5 kg Intake: IV 500 Intake, IV Titration 40 Amount Sodium Chloride 0.9% 1, 40 000 ml @ 20 mls/hr IV . Q24H [facility] Rx#:[id number] Oral 200 390 Output: Urine 400 Other: # Voids 2 - Exam Head normocephalic Neck supple Lungs clear to auscultation bilaterally no wheezing or crackles Heart positive murmur. Dressing over pacemaker to small dry patches of blood Abdomen is soft nontender nondistended positive bowel sounds no hepatosplenomegaly Extremities no edema Neuro alert and orientated to 3 - Labs CBC & Chem 7: 12/10/17 06:00 12/10/17 06:00 Labs: Abnormal Lab Results - Last 24 Hours (Table) 12/09/17 12/09/17 12/10/17 Range/Units 11:41 20:36 06:00 Potassium 5.2 H (3.5-5.1) mmol/L BUN 20 H (7-17) mg/dL Glucose 287 H (74-99) mg/dL POC Glucose (mg/dL) 170 H 194 H (75-99) mg/dL 12/10/17 Range/Units 06:28 Potassium (3.5-5.1) mmol/L BUN (7-17) mg/dL Glucose (74-99) mg/dL POC Glucose (mg/dL) 254 H (75-99) mg/dL Assessment and Plan Assessment: 1. Symptomatic third-degree heart block : Status post pacemaker placement. Metoprolol discontinued on admission. Cardiology wants to monitor patient for one more day 2. Hypothyroidism : Continue home dose of Synthroid. Free T4 normal at 1.25, TSH less than 0.015 3. Type 2 diabetes mellitus: Continue insulin. Add sliding scale coverage 4. Hypomagnesemia, replaced 5. Mild hyperkalemia potassium 5.2. Likely will correct with patient's insulin. Repeat labs in a.m. Discussed with patient to avoid eating high potassium rich foods. Repeat potassium level in a.m. DVT prophylaxis subcu heparin I performed an examination of the patient and discussed their management with the physician Cross Roller. I have reviewed the Physician Cross Roller's notes and agree with the documented findings and plan of care
[2017-12-10 11:33] LABS: Glucose,Whole Blood 332 mg/dL (75-99)
[2017-12-10] MEDS: INSULIN ASPART 100 UNIT/ML 1 ML 10 ML VIAL SQ SCH ×3 (12:01→21:37)
--- NOTE | 2017-12-10 13:57 | P.PN ---
Subjective Progress Note Date: 12/10/17 This is a 72-year-old female who presented to the hospital with symptoms of dizzy spell and shaking symptoms. She was found to be in intermittent complete heart block, she underwent implantation of a temporary pacemaker and subsequently underwent implantation of a permanent pacemaker by Dr. Badillo. Device was interrogated this morning and is functioning appropriately. Chest x-ray was performed which did not reveal any evidence of a pneumothorax. Patient was seen and examined this morning, feels well overall , she's been ambulating in the [place] most of the morning without any symptoms. Objective - Vital Signs Vital signs: Vital Signs Temp 98.7 F 12/10/17 08:00 Pulse 69 12/10/17 12:00 Resp 16 12/10/17 12:00 BP 126/65 12/10/17 12:00 Pulse Ox 96 12/10/17 12:00 Intake & Output 12/09/17 12/10/17 12/10/17 18:59 06:59 18:59 Intake Total 700 40 390 Output Total 400 Balance 300 40 390 Weight 113.5 kg Intake: IV 500 Intake, IV Titration 40 Amount Sodium Chloride 0.9% 1, 40 000 ml @ 20 mls/hr IV . Q24H [facility] Rx#:[id number] Oral 200 390 Output: Urine 400 Other: # Voids 2 - Exam PHYSICAL EXAMINATION: HEENT: Head is atraumatic, normocephalic. Pupils equal, round. Neck is supple. There is no elevated jugular venous pressure. HEART EXAMINATION: Heart S1, S2 normal. No murmur or gallop heard. CHEST EXAMINATION: Lungs are clear to auscultation and precussion. No chest wall tenderness is noted on palpation or with deep breathing. Site of pacemaker implantation, dressing is dry and intact. ABDOMEN: Soft, nontender. Bowel sounds are heard. No organomegaly noted. EXTREMITIES: 2+ peripheral pulses with no evidence of peripheral edema and no calf tenderness noted. NEUROLOGIC patient is awake, alert and oriented -3. . - Labs CBC & Chem 7: 12/10/17 06:00 12/10/17 06:00 Labs: Abnormal Lab Results - Last 24 Hours (Table) 12/09/17 12/10/17 12/10/17 Range/Units 20:36 06:00 06:28 Potassium 5.2 H (3.5-5.1) mmol/L BUN 20 H (7-17) mg/dL Glucose 287 H (74-99) mg/dL POC Glucose (mg/dL) 194 H 254 H (75-99) mg/dL 12/10/17 Range/Units 11:27 Potassium (3.5-5.1) mmol/L BUN (7-17) mg/dL Glucose (74-99) mg/dL POC Glucose (mg/dL) 332 H (75-99) mg/dL Assessment and Plan Plan: Assessment and plan #1 status post implantation of a permanent pacemaker for complete heart block #2 hypothyroidism #3 diabetes #4 hypomagnesemia, replaced Plan We will continue the patient on her current medications. Plan for possible discharge home in 24 hours if stable. DNP note has been reviewed, I agree with a documented findings and plan of care. Patient was seen and examined.
[2017-12-10 16:52] LABS: Glucose,Whole Blood 112 mg/dL (75-99)
[2017-12-10 17:44] LABS: Hemoglobin A1C 7.5 % (4.0-6.0)
[2017-12-10] MEDS: SODIUM CHLORIDE 0.9% 1,000 ML IV SCH (19:32)
[2017-12-10] MEDS ORDERED: ceFAZolin IN SWFI 2 GM/20 ML SYRINGE IVP ONE (21:00)
[2017-12-10 21:07] LABS: Glucose,Whole Blood 174 mg/dL (75-99)
[2017-12-11 05:11] VITALS: TEMP 97.5
[2017-12-11 05:56] LABS: Glucose,Whole Blood 112 mg/dL (75-99)
[2017-12-11] MEDS: INSULIN ASPART 100 UNIT/ML 1 ML 10 ML VIAL SQ SCH ×2 (05:56→11:38)
[2017-12-11] MEDS: LEVOTHYROXINE 75 MCG TAB PO SCH (05:59)
[2017-12-11] MEDS: LEVOTHYROXINE 100 MCG TAB PO SCH (05:59)
[2017-12-11 06:17] LABS: Basophils # (A) 0.1 k/uL (0-0.2); Basophils % (A) 1 %; Eosinophils # (A) 0.2 k/uL (0-0.7); Eosinophils % (A) 4 %; HCT 39.4 % (34.0-46.0); HGB 12.4 gm/dL (11.4-16.0); Hypochromasia Slight; Lymphocytes % (A) 31 %; MCHC 31.4 g/dL (31.0-37.0); MCV 92.4 fL (80.0-100.0); Mean Platelet Volume 7.5; Monocytes # (A) 0.3 k/uL (0-1.0); Monocytes % (A) 5 %; Neutrophils # (A) 3.8 k/uL (1.3-7.7); Neutrophils % (A) 58 %; Platelet Count 170 k/uL (150-450); RBC 4.26 m/uL (3.80-5.40); WBC 6.6 k/uL (3.8-10.6)
[2017-12-11 06:31] LABS: ALT 34 U/L (9-52); AST 30 U/L (14-36); Albumin 3.4 g/dL (3.5-5.0); Alkaline Phosphatase 72 U/L (38-126); Anion Gap 11 mmol/L; Blood Urea Nitrogen 22 mg/dL (7-17); Calcium 8.4 mg/dL (8.4-10.2); Carbon Dioxide 27 mmol/L (22-30); Chloride 103 mmol/L (98-107); Glucose 111 mg/dL (74-99); Potassium 4.6 mmol/L (3.5-5.1); Sodium 141 mmol/L (137-145); Total Bilirubin 0.3 mg/dL (0.2-1.3)
[2017-12-11] MEDS: INSULN ASP PRT/INSULIN ASPART 100 UNIT/ML 10 ML VIAL SQ SCH ×2 (07:01→11:38)
[2017-12-11] MEDS: HEPARIN SODIUM,PORCINE 5,000 UNIT/ML 1 ML VIAL SQ SCH (08:04)
[2017-12-11] MEDS: LOSARTAN 50 MG TAB PO SCH (08:04)
[2017-12-11 11:32] LABS: Glucose,Whole Blood 188 mg/dL (75-99)
[2017-12-11 11:43] VITALS: BP 133/65; PULSE 66
--- NOTE | 2017-12-11 12:20 | CONS ---
CONSULTATION Patient admitted on the 07 of December. I saw her that Saturday, the , in consultation. This is a 72-year-old female who presented with feeling dizzy and feeling very odd when she stood up and walked around. The symptoms were intermittent and she felt extremely strange. No chest discomfort. No actual loss of consciousness. She felt a vibrating sensation in the chest and she was short of breath. Her 12-lead ECG initially showed sinus rhythm with a very long NM interval of greater than 300 to 350 milliseconds, but on telemetry subsequently intermittent complete heart block was noted with severe bradycardia. She also felt weak. REVIEW OF SYSTEMS: No fever, chills, or rigors. No cough or expectoration. No nausea, vomiting or diarrhea. No hematuria or dysuria. No strokes or seizures. No skin lesions or musculoskeletal complaints. PAST HISTORY: Past history of moderate aortic stenosis. She is followed by Dr. Watson. History of diabetes, history of osteoarthritis, obstructive sleep apnea using a CPAP mask. PAST SURGICAL HISTORY: Cataract in left eye, tonsillectomy, tubal ligation, joint replacement. Her medications included levothyroxine, insulin and metoprolol 12.5 mg twice daily and calcium. Metoprolol was discontinued and she continued to remain in third-degree heart block. Allergies to NITROFURANTOIN and PYRIDIUM. SOCIAL HISTORY: Noncontributory. She is a never smoker. No alcohol use. PHYSICAL EXAMINATION: On examination, blood pressure was 138/63 mmHg, pulse was in the 40s during third- degree heart block. HEAD AND NECK EXAMINATION: Normal. Heart sounds S1 and S2 soft. There is an ejection systolic murmur of aortic stenosis. No S3 gallop. ABDOMEN: Soft, nontender. Extremities are warm. No edema. LABS: Labs are reviewed. White count is 12.5. BUN and creatinine are normal. Her troponins were 0.04, 0.04. Magnesium was 1.5. Potassium was normal. The 2-D echo showed preserved LV systolic function with moderate aortic stenosis based upon the 2-D echo from the office report of about 6 months back. This was in mid 2017 when she had an echo in the office. I reviewed her office data also. IMPRESSION: 1. Symptomatic third-degree heart block. 2. Moderate aortic stenosis. 3. Diabetes type 2. 4. Hypomagnesemia, replaced. SUGGEST: Dual chamber pacemaker implantation has been recommended and await TSH. MMMARIA VICTORIAL / ABDIRASHIDN: [id number] /
--- NOTE | 2017-12-11 12:40 | P.PN ---
Subjective Progress Note Date: 12/11/17 This is a 72-year-old female who presented to the hospital with symptoms of dizzy spell and shaking symptoms. She was found to be in intermittent complete heart block, she underwent implantation of a temporary pacemaker and subsequently underwent implantation of a permanent pacemaker by Dr. Badillo. Device was interrogated this morning and is functioning appropriately. Chest x-ray was performed which did not reveal any evidence of a pneumothorax. Patient was seen and examined this morning, feels well overall , she's been ambulating in the [place] most of the morning without any symptoms. 12/11/2017 Patient seen and examined this morning, doing well overall. Pacer functioning appropriately. From cardiology's perspective she may be able to be discharged home today. We will make her a follow-up appointment in the office with the device clinic as well as Dr. Waston post discharge. Objective - Vital Signs Vital signs: Vital Signs Temp 97.5 F L 12/11/17 04:00 Pulse 66 12/11/17 11:42 Resp 16 12/11/17 11:44 BP 133/65 12/11/17 11:42 Pulse Ox 98 12/11/17 11:42 Intake & Output 12/10/17 12/11/17 12/11/17 18:59 06:59 18:59 Intake Total 870 480 240 Output Total 300 Balance 870 180 240 Weight 115.5 kg Intake: Oral 870 480 240 Output: Urine 300 Other: Voiding Method Toilet Toilet # Voids 1 1 1 - Exam PHYSICAL EXAMINATION: HEENT: Head is atraumatic, normocephalic. Pupils equal, round. Neck is supple. There is no elevated jugular venous pressure. HEART EXAMINATION: Heart S1, S2 normal. No murmur or gallop heard. CHEST EXAMINATION: Lungs are clear to auscultation and precussion. No chest wall tenderness is noted on palpation or with deep breathing. Site of pacemaker implantation, dressing is dry and intact. ABDOMEN: Soft, nontender. Bowel sounds are heard. No organomegaly noted. EXTREMITIES: 2+ peripheral pulses with no evidence of peripheral edema and no calf tenderness noted. NEUROLOGIC patient is awake, alert and oriented -3. . - Labs CBC & Chem 7: 12/11/17 05:52 12/11/17 05:52 Labs: Abnormal Lab Results - Last 24 Hours (Table) 12/10/17 12/10/17 12/10/17 Range/Units 06:00 16:50 21:06 BUN (7-17) mg/dL Glucose (74-99) mg/dL POC Glucose (mg/dL) 112 H 174 H (75-99) mg/dL Hemoglobin A1c 7.5 H (4.0-6.0) % Total Protein (6.3-8.2) g/dL Albumin (3.5-5.0) g/dL 12/11/17 12/11/17 12/11/17 Range/Units 05:52 05:54 11:30 BUN 22 H (7-17) mg/dL Glucose 111 H (74-99) mg/dL POC Glucose (mg/dL) 112 H 188 H (75-99) mg/dL Hemoglobin A1c (4.0-6.0) % Total Protein 6.0 L (6.3-8.2) g/dL Albumin 3.4 L (3.5-5.0) g/dL Assessment and Plan Plan: Assessment and plan #1 status post implantation of a permanent pacemaker for complete heart block #2 hypothyroidism #3 diabetes #4 hypomagnesemia, replaced Plan We will continue the patient on her current medications. Discharged home today. Follow-up appointment with Dr. Watson and the device clinic post discharge DNP note has been reviewed, I agree with a documented findings and plan of care. Patient was seen and examined.
--- NOTE | 2017-12-11 12:52 | P.DS ---
Providers Date of admission: 12/09/17 14:09 Expected date of discharge: 12/11/17 Attending physician: Adelina Parikh Consults: 12/07/17 18:41 Consult Physician Routine Consulting Provider: [facility] Consult Reason/Comments: Bradycardia, Exertional Dyspnea, Aortic Stenosis Do you want consulting provider notified?: Yes Primary care physician: Muriel Kang [facility] Course: Diagnoses on discharge: 1. Symptomatic third-degree heart block : underwent pacemaker placement. Metoprolol discontinued on admission. Cardiology cleared patient for discharge. 2. Hypothyroidism : Continue home dose of Synthroid. Free T4 normal at 1.25, TSH less than 0.015 3. Type 2 diabetes mellitus: Continue insulin. Add sliding scale coverage 4. Hypomagnesemia, replaced 5. Mild hyperkalemia potassium 5.2. Likely will correct with patient's insulin. Repeat labs in a.m. Discussed with patient to avoid eating high potassium rich foods. Repeat potassium level in a. Hospital course: This is a 72-year-old female with past medical history noted below who presented to the emergency room with chest discomfort and upper respiratory tract symptoms. Patient said that for the past few days she has not been feeling well. She described flulike symptoms with no significant shortness of breath. No fevers or chills. No gray chest pain. Patient said that she noted that her heart rate was dropping into the 50s at times. She usually take metoprolol twice a day at home. She went to a local urgent care and a 12 leads EKG was performed showing evidence of first-degree heart block. Patient was sent to the emergency room for further evaluation. She was hemodynamically stable. She reported dizziness and lightheadedness. She is also feeling weak. She was evaluated by electrophysiology and plan is to proceed with pacemaker placement in the morning. 12/09/2017 patient has been bradycardic evidence of heart block. She is scheduled for pacemaker today. Metoprolol discontinued during this admission. Patient reports that she just doesn't feel well and shaky 12/10/2017 patient is status post pacemaker placement yesterday evening. Patient reports improvement in her symptoms. She feels better today. She has been up and a be relating. She is no longer having that shakiness. Denies any chest pain or shortness breath. Denies any nausea or vomiting. Reports having bowel movements. Denies any difficulty urinating. Patient Condition at Discharge: Stable Plan - Discharge Summary Discharge Rx Participant: No New Discharge Prescriptions: New Losartan [Cozaar] 50 mg PO DAILY tab Continue Levothyroxine Sodium [Synthroid] 175 mcg PO DAILY Metoprolol Tartrate [Lopressor] 12.5 mg PO BID Insulin Aspart Protam & Aspart [NovoLOG MIX 70-30 Flexpen] 40 unit SQ AC-TID Insulin Aspart Protam & Aspart [NovoLOG MIX 70-30 Flexpen] 20 - 30 unit SQ HS Calcium Carbonate 1,000 mg PO DAILY Discharge Medication List Levothyroxine Sodium [Synthroid] 175 mcg PO DAILY 05/07/14 [History] Insulin Aspart Protam & Aspart [NovoLOG MIX 70-30 Flexpen] 20 - 30 unit SQ HS [History] Insulin Aspart Protam & Aspart [NovoLOG MIX 70-30 Flexpen] 40 unit SQ AC-TID [History] Metoprolol Tartrate [Lopressor] 12.5 mg PO BID 12/07/17 [History] Calcium Carbonate 1,000 mg PO DAILY 12/08/17 [History] Losartan [Cozaar] 50 mg PO DAILY tab 12/11/17 [Rx] Follow up Appointment(s)/Referral(s): Caitie Watson MD [STAFF PHYSICIAN] - 12/20/17 11:15 am (SaturdayDecember 16 at 3:30 PM at [facility].) Muriel Kang DO [Primary Care Provider] - () Patient Instructions/Handouts: Pacemaker (GEN) Activity/Diet/Wound Care/Special Instructions: PATIENT EDUCATION MATERIAL Instructions following a heart rhythm device implant. 1. Keep dressing DRY for 5 DAYS. You may cover the area with Saran or Cling Wrap, prior to a shower. 2. The dressing will be removed in the Device [facility] @ [facility]. Absorbable sutures were used to close the wound. 3. Avoid raising the [left] arm above the shoulder level. [4 week restriction] 4. Avoid arm movements, like backscratching, rubbing the head, or pulling on a cord. (4 weeks restriction) 5. Gentle range of motion movements of the shoulder, closest to the incision should be performed to avoid a frozen shoulder. (Pendulum exercises of the shoulder) 6. The opposite arm may be used freely. 7. Avoid driving for 7 days. 8. Avoid activities such as golfing, swimming, weed whacking, lifting more than 10 pounds weight, bowling, gymnastics and weight training/lifting. (6 weeks restriction) 9. Activities such as wood chopping with an axe, pull-ups in the gymnasium, power lifting, arc-welding, being close to home induction cooktops will always be a problem. 10. Arm sling is a mere reminder not to raise the arm above the head. However you do not need to keep the arm completely immobilized. Your free to move the arm and use it and for normal activities. In case of any problems, please call [facility], [place], @ [phone], Attention: Device Clinic Follow up in the device clinic in [address] Watson as scheduled
== END 2017-12-11 13:20 | disposition home or self-care (01) | DRG 244 ==
LOC: EC 15:59 → 6SEL 18:42 → OBSVTOIN 12-09 14:09
PROVIDERS: ADMIT Internal Medicine; ATTEND Internal Medicine
PROC: 02H63JZ Insertion of Pacemaker Lead into Right Atrium, Percutaneous Approach (ICD-10-PCS; 2017-12-09)
PROC: 02HK3JZ Insertion of Pacemaker Lead into Right Ventricle, Percutaneous Approach (ICD-10-PCS; 2017-12-09)
PROC: 0JH606Z Insertion of Pacemaker, Dual Chamber into Chest Subcutaneous Tissue and Fascia, Open Approach (ICD-10-PCS; principal; 2017-12-09 17:40)
DX: I44.2 Atrioventricular block, complete (principal); E11.9 Type 2 diabetes mellitus without complications; E83.42 Hypomagnesemia; E87.5 Hyperkalemia; I35.0 Nonrheumatic aortic (valve) stenosis; I48.91 Unspecified atrial fibrillation; R00.1 Bradycardia, unspecified; E03.9 Hypothyroidism, unspecified; H91.90 Unspecified hearing loss, unspecified ear; M19.91 Primary osteoarthritis, unspecified site; G47.33 Obstructive sleep apnea (adult) (pediatric); E78.5 Hyperlipidemia, unspecified; Z79.4 Long term (current) use of insulin; Z79.899 Other long term (current) drug therapy; Z86.19 Personal history of other infectious and parasitic diseases; Z96.693 Finger-joint replacement, bilateral; Z96.653 Presence of artificial knee joint, bilateral; Z98.41 Cataract extraction status, right eye; Z87.01 Personal history of pneumonia (recurrent); Z88.2 Allergy status to sulfonamides; Z88.8 Allergy status to other drugs, medicaments and biological substances
CPT/HCPCS: 33208; 36415; 71046; 80048; 80053; 81001; 82550; 82553; 83036; 83735; 83880; 84439; 84443; 84484; 85025; 85610; 85730; 93005; 94760; 99285

== ENCOUNTER → 2018-06-27 | Outpatient (CLI) | payer MEDICARE ==
[2018-06-27 07:33] LABS: ALT 36 U/L (9-52); AST 36 U/L (14-36); Cholesterol 150 mg/dL (<200); HDL Cholesterol 45 mg/dL (40-60); LDL Cholesterol,Calculated 85 mg/dL (0-99); Triglycerides 98 mg/dL (<150)
== END | disposition home or self-care (01) ==
LOC: LABWHC1 07:03
PROVIDERS: ATTEND Nurse Practitioner Adult Health
DX: E78.2 Mixed hyperlipidemia (principal)
CPT/HCPCS: 36415; 80061; 84450; 84460

== ENCOUNTER → 2018-07-23 | Outpatient (CLI) | payer MEDICARE ==
[2018-07-23 13:09] LABS: HCT 40.5 % (34.0-46.0); HGB 12.8 gm/dL (11.4-16.0); Hypochromasia Slight; MCH 28.7 pg (25.0-35.0); MCHC 31.7 g/dL (31.0-37.0); MCV 90.6 fL (80.0-100.0); Mean Platelet Volume 6.7; Platelet Count 237 k/uL (150-450); RBC 4.47 m/uL (3.80-5.40); RDW 14.8 % (11.5-15.5); WBC 8.4 k/uL (3.8-10.6)
[2018-07-23 13:19] LABS: Potassium 4.6 mmol/L (3.5-5.1)
== END | disposition home or self-care (01) ==
LOC: LABPAT 12:42
PROVIDERS: ATTEND Internal Medicine Interventional Cardiology
DX: Z01.812 Encounter for preprocedural laboratory examination (principal); I35.0 Nonrheumatic aortic (valve) stenosis; I10 Essential (primary) hypertension; R06.02 Shortness of breath
CPT/HCPCS: 36415; 80051; 82565; 84520; 85027

== ENCOUNTER 2018-07-30 06:04 | Day surgery (SDC) | payer MEDICARE ==
[2018-07-24 16:07] VITALS: BMI 45.1
[~2018-07-30 06:04] MED LIST: ALPRAZolam 0.25 MG TAB PO PRN; ALPRAZolam 0.5 MG TAB PO PRN; ASPIRIN 325 MG TAB PO STA; ATORVASTATIN 80 MG TAB PO STA; NITROGLYCERIN SL TABS 0.4 MG TAB SUBLINGUAL PRN; SODIUM CHLORIDE 0.9% 1,000 ML in EMPTY BAG 1 BAG IV ONE
[2018-07-30] MEDS ORDERED: MIDAZOLAM 2 MG/2 ML VIAL ONE (06:49)
[2018-07-30] MEDS ORDERED: fentaNYL (PF) 50 MCG/ML 2 ML AMP ONE (06:49)
[2018-07-30 06:57] VITALS: PULSE 60; TEMP 99.3
[2018-07-30 07:00] LABS: Glucose,Whole Blood 152 mg/dL (75-99)
[2018-07-30] MEDS: BENZOCAINE SPRAY 1 CAN MUCOUS MEM ONE ×2 (07:03→07:09)
[2018-07-30] MEDS: MIDAZOLAM 2 MG/2 ML VIAL IVP ONE ×2 (07:09→07:11)
[2018-07-30] MEDS: fentaNYL (PF) 50 MCG/ML 2 ML AMP IVP ONE ×2 (07:09→07:11)
[2018-07-30] MEDS ORDERED: SODIUM CHLORIDE 0.9% 100 ML IV ONE (07:14)
[2018-07-30] MEDS ORDERED: LIDOCAINE 1% INJ 10MG/ML (20 ML MDV) ONE (07:17)
[2018-07-30] MEDS ORDERED: SODIUM CHLORIDE 0.9% 1,000 ML IV ONE (07:35)
[2018-07-30] MEDS ORDERED: LIDOCAINE 1% INJ 10MG/ML (20 ML MDV) SQ ONE (08:02)
--- NOTE | 2018-07-30 08:19 | ECHOT ---
TRANSESOPHAGEAL ECHOCARDIOGRAM INDICATION: Evaluation of aortic valve. PROCEDURE: After explaining the procedure to the patient, its risks and the complications, her blood pressure, heart rate, O2 saturation was monitored. The throat was sprayed with Cetacaine. She received 2 mg intravenous Versed, 50 mcg intravenous fentanyl. The probe was introduced into the esophagus without difficulty. Images were obtained. Following that, the probe was removed. There was no immediate complication. FINDING: Left atrial size is normal. The left atrial appendage is normal. Left ventricular size and systolic function normal. Concentric left ventricular hypertrophy was noted. The aortic valve revealed fibrocalcific change with aortic cusp with reduced opening. By planimetry the valve area is 0.9 centimeter square. Severe mitral annulus calcification was noted. The tricuspid valve appears to be normal. Descending thoracic aorta appears to be normal. No pericardial effusion was noted. Contrast bubble study revealed no evidence of shunting across the interatrial septum. Doppler, pulse wave and color Doppler obtained revealed mild to moderate aortic with mild mitral and tricuspid regurgitation. The peak gradient across the aortic valve was 67 mmHg with a mean of 40 mmHg. There was no shunting by color Doppler study. CONCLUSION: 1. Normal left ventricular size and systolic function with concentric left ventricular hypertrophy. 2. Severe aortic stenosis with [id number] aortic regurgitation. 3. Mitral anulus calcification. 4. Mild to moderate mitral with mild tricuspid regurgitation. 5. No shunting across the interatrial septum. MMODL / IJN: [id number] /
[2018-07-30 08:31] LABS: O2 Sat Blood Gas 66.2 %; O2 Sat Blood Gas 68.2 %; O2 Sat Blood Gas 95.3 %
[2018-07-30] MEDS ORDERED: IOPAMIDOL-370 125ML BTL INJ ONE (08:31)
[2018-07-30] MEDS ORDERED: IOPAMIDOL-370 50ML BTL INJ ONE (08:32)
[2018-07-30] MEDS ORDERED: RX INFO: IV CONTRAST WAS GIVEN 1 EACH MISC MISCELLANE PRN (08:47)
[2018-07-30] MEDS ORDERED: SODIUM CHLORIDE 0.9% 1,000 ML IV SCH (09:00)
[2018-07-30] MEDS ORDERED: LEVOTHYROXINE SODIUM 150 MCG PO SCH (09:00)
[2018-07-30] MEDS ORDERED: METOPROLOL TARTRATE 25 MG TAB PO SCH (09:00)
[2018-07-30] MEDS ORDERED: CALCIUM CARBONATE 1000 MG PO SCH (09:00)
[2018-07-30] MEDS ORDERED: ASPIRIN 325 MG TAB PO SCH (09:00)
[2018-07-30] MEDS ORDERED: ATORVASTATIN 20 MG TAB PO SCH (09:00)
--- NOTE | 2018-07-30 09:10 | CC ---
CARDIAC CATHETERIZATION REPORT Mrs. Perales is a 73-year-old female with a known history of hypertension, hyperlipidemia, diabetes mellitus, progressive aortic stenosis, who has been complaining of progressive dyspnea. In view of that, recommendation made regarding cardiac catheterization. The procedure, as well as risks and complications were discussed with the patient who is in full understanding and agreement. PROCEDURE: Patient was brought to chemical laboratory assistant in a fasting state. After receiving fentanyl and Benadryl and achieving moderate conscious state, using Xylocaine anesthesia and Seldinger technique, a 6-Uzbek sheath was introduced in the right femoral artery and an 8-Uzbek sheath in the right femoral vein. Right heart catheterization was performed using Zeigler-Mallory catheter. Multiple pressure and samples were obtained. Cardiac output by thermodilution was calculated. Following that, selective right and left angiography performed using 6-Uzbek 4 bend right and left Karen catheter. Multiple views of the coronary artery including hemiaxial views were obtained. Following that, a 6-Uzbek tight pigtail catheter was introduced into the left ventricle and a 30 degree RAY view of the left ventricle was obtained. Following that, the catheter and sheaths were removed. Hemostasis was obtained with deployment of an Angio-Seal in the right femoral artery and compression of the right femoral vein. There was no immediate complication. FINDINGS: FLUOROSCOPY: There was severe calcification involving the mitral anulus as well as the aortic valve. HEMODYNAMICS: Right atrial saturation of 68%, pulmonary artery saturation 66%. Femoral artery saturation 95%. Cardiac output by Helen 4 L/minute and by thermodilution 5.37 L/minute poor. Pulmonary artery systolic pressure of 36 with a diastolic of 20 and a mean of 23 mmHg. Pulmonary capillary wedge pressure: A-wave of 12, V-wave 14 with mean of 10 mmHg. Right ventricle systolic pressure of 38 with an end-diastolic of 8 mmHg. Right atrium A-wave of 4, V-wave of 6 with a mean of 4 mmHg. Peak gradient across the aortic valve of about 40 mmHg. The aortic valve of less than 1 cm2. CORONARIES: LEFT MAIN: This is a large-sized vessel bifurcating into the left circumflex, left anterior descending artery, left main coronary artery has no evidence of high-grade stenosis. LEFT ANTERIOR DESCENDING ARTERY: This is a large-sized vessel reaching toward the apex with a wraparound the apex segment giving rise to a large diagonal branch. The left anterior descending artery after the takeoff of diagonal branch has a 50% to 60% plaque. The rest of the vessel has no high-grade stenosis. LEFT CIRCUMFLEX: This is a nondominant vessel giving rise to a very proximal obtuse marginal branch distally giving rise to a distal obtuse marginal branch. The left circumflex and distal segment had a 40-50 percent plaque without any evidence of high- grade stenosis. RIGHT CORONARY ARTERY: This is a large dominant vessel bifurcating distally into PDA and posterolateral segment and branches. At the takeoff of the PDA, there is a 60-70% plaque. The rest of the vessel has no high-grade stenosis. LEFT VENTRICULOGRAM: Left ventriculogram was performed in 30 degree RAY view and revealed normal left ventricular size and systolic function. Ejection fraction 60%. There was no significant mitral regurgitation. CONCLUSION: 1. Calcified mitral anulus as well as calcified aortic valve. 2. Moderate triple-vessel disease. 3. Severe aortic stenosis. RECOMMENDATIONS: In view of findings and anatomy, I recommend proceeding with evaluation for aortic valve replacement. Those findings and recommendations were discussed with the patient and her family who are in full understanding and agreement. MMODL / IJN: [id number] /
[2018-07-30] MEDS ORDERED: ASPART SQ SCH ×2 (12:30→21:00)
[2018-07-30] MEDS ORDERED: INSULIN ASPART PROTAM SQ SCH ×2 (12:30→21:00)
[2018-07-30 13:22] LABS: Glucose,Whole Blood 163 mg/dL (75-99)
[2018-07-30 13:38] VITALS: RESP 20
[2018-07-30 16:14] VITALS: BP 140/62
== END 2018-07-30 16:05 | disposition home or self-care (01) ==
LOC: CATHCVL 06:04
PROVIDERS: ATTEND Internal Medicine Interventional Cardiology
DX: I08.3 Combined rheumatic disorders of mitral, aortic and tricuspid valves (principal); I25.10 Atherosclerotic heart disease of native coronary artery without angina pectoris; I70.0 Atherosclerosis of aorta; I10 Essential (primary) hypertension; E78.2 Mixed hyperlipidemia; Z95.0 Presence of cardiac pacemaker; E11.9 Type 2 diabetes mellitus without complications; Z79.4 Long term (current) use of insulin; Z79.82 Long term (current) use of aspirin; Z79.890 Hormone replacement therapy; Z79.899 Other long term (current) drug therapy; Z88.1 Allergy status to other antibiotic agents; Z88.8 Allergy status to other drugs, medicaments and biological substances
CPT/HCPCS: 93312; 93320; 93325; 93460; 85018; 82810; C1760; C1769 ×2; C1894 ×2; J2250; J2001; J3010; Q9967 ×2; 93456

== ENCOUNTER → 2018-09-02 | Outpatient (CLI) | payer MEDICARE ==
[2018-09-02 13:49] LABS: Blood Urea Nitrogen 16 mg/dL (7-17)
== END | disposition home or self-care (01) ==
LOC: LABWHC1 12:38
PROVIDERS: ATTEND Registered Nurse Critical Care Medicine
DX: I35.0 Nonrheumatic aortic (valve) stenosis (principal)
CPT/HCPCS: 36415; 82565; 84520

== ENCOUNTER 2019-02-13 19:05 | Observation (INO) | payer MEDICARE ==
--- NOTE | 2019-02-13 19:44 | ED ---
General Adult HPI - General Chief complaint: Arrhythmia/Palpitations Stated complaint: heart concerns Time Seen by Provider: 02/13/19 19:23 Source: patient, RN notes reviewed, old records reviewed Mode of arrival: ambulatory Limitations: no limitations - History of Present Illness Initial comments: 74-year-old female presenting with chief complaint of palpitations. Patient's symptoms have been ongoing over the past 2 days. She does report intermittent episodes of palpitations. She states that in between she feels quite well. She has history of previous pacemaker, follows with cardiology on a regular basis. In October 2018 she had a TAVR, at [facility]. She is currently on metoprolol, aspirin and Plavix. Denies any chest pain associated with her symptoms. No dyspnea. No fever or chills. No vomiting or diarrhea. No abdominal pain. - Related Data Home Medications Medication Instructions Recorded Confirmed Insulin Aspart Protam & Aspart 40 unit SQ AC-TID 12/07/17 02/13/19 [NovoLOG MIX 70-30 Flexpen] Metoprolol Tartrate [Lopressor] 12.5 mg PO BID 12/07/17 02/13/19 Calcium Carbonate 1,000 mg PO DAILY 12/08/17 02/13/19 Ascorbic Acid [Vitamin C] 1,000 mg PO DAILY 02/13/19 02/13/19 Aspirin EC [Ecotrin Low Dose] 81 mg PO DAILY 02/13/19 02/13/19 Clopidogrel [Plavix] 75 mg PO DAILY 02/13/19 02/13/19 Fish Oil/Dha/Epa [Fish Oil 1,200 1 cap PO DAILY 02/13/19 02/13/19 mg Fish Oil] Ginkgo Biloba 500 mg PO DAILY 02/13/19 02/13/19 L.acidoph,Paracasei, B.lactis 1 cap PO DAILY 02/13/19 02/13/19 [Probiotic] Levothyroxine Sodium [Synthroid] 175 mcg PO DAILY 02/13/19 02/13/19 Multivitamins, Thera [Multivitamin 1 tab PO DAILY 02/13/19 02/13/19 (formulary)] Rosuvastatin [Crestor] 20 mg PO HS 02/13/19 02/13/19 Vitamin D3(Unknown Dose) 1 tab PO DAILY 02/13/19 02/13/19 Vitamin E 100 unit PO DAILY 02/13/19 02/13/19 Allergies Allergy/AdvReac Type Severity Reaction Status Date / Time nitrofurantoin Allergy Rash/Hives Verified 02/13/19 19:59 macrocrystalline [From Macrodantin] phenazopyridine HCl Allergy Rash/Hives Verified 02/13/19 19:59 [From Pyridium] Review of Systems ROS Statement: Those systems with pertinent positive or pertinent negative responses have been documented in the HPI. ROS Other: All systems not noted in ROS Statement are negative. Past Medical History Past Medical History: Atrial Fibrillation, Diabetes Mellitus, Hearing Disorder / Deafness, Hyperlipidemia, Osteoarthritis (OA), Sleep Apnea/CPAP/BIPAP, Thyroid Disorder Additional Past Medical History / Comment(s): USES BIPAP, HX AORTIC STENOSIS. HX A-FIB WITH PNEUMONIA,CATARACT LT EYE History of Any Multi-Drug Resistant Organisms: VRE Date of last positivie culture/infection: 02/02/13 MDRO Source:: URINE Past Surgical History: Joint Replacement, Orthopedic Surgery, Tonsillectomy, T ubal Ligation Additional Past Surgical History / Comment(s): JOSEPH THUMB JOINTS REPLACED; JOSEPH CTR; JOSEPH KNEE ARTHROSCOPIES; TOTAL RT KNEE 04/2013, LATER HAD MANIPULATION OF KNEE. HAD THYROID AND PARATHYROID REMOVAL. TOTAL LEFT KNEE REPLACEMENT, CATARACT RT EYE Past Anesthesia/Blood Transfusion Reactions: No Reported Reaction Type of Cardiac Device: Unknown Device Placement Date:: PACEMAKER NOV 2017. Past Psychological History: No Psychological Hx Reported Smoking Status: Never smoker Past Alcohol Use History: None Reported Past Drug Use History: None Reported - Past Family History Sister(s) Family Medical History: Cancer Additional Family Medical History / Comment(s): BREAST CANCER General Exam Limitations: no limitations General appearance: alert, in no apparent distress Head exam: Present: atraumatic, normocephalic Eye exam: Present: normal appearance, PERRL ENT exam: Present: mucous membranes dry Neck exam: Present: normal inspection. Absent: tenderness, meningismus Respiratory exam: Present: normal lung sounds bilaterally. Absent: respiratory distress, wheezes Cardiovascular Exam: Present: regular rate, normal rhythm, systolic murmur GI/Abdominal exam: Present: soft. Absent: distended, tenderness Extremities exam: Present: normal inspection, normal capillary refill. Absent: pedal edema, calf tenderness Neurological exam: Present: alert, oriented X3, CN II-XII intact. Absent: motor sensory deficit Psychiatric exam: Present: normal affect, normal mood Skin exam: Present: warm, dry, intact. Absent: cyanosis, diaphoretic Course Vital Signs 02/13/19 02/13/19 19:19 20:30 Temperature 98.9 F Pulse Rate 74 60 Respiratory 16 14 Rate Blood Pressure 174/70 152/70 O2 Sat by Pulse 96 98 Oximetry EKG Findings - EKG Comments: EKG Findings:: EKG: Sinus rhythm first-degree AV block, left axis deviation, left bundle branch block rate of 68, NV interval 3:30, QRS duration 164, QTC 484, there is several pacer spikes. Medical Decision Making - Medical Decision Making 74-year-old female history of A. fib status post pacemaker, history of aortic stenosis status post TAVR, presenting with palpitations. EKG does show wide complex rhythm, there is several pacer spikes however patient is not completely pacemaker dependent. Blood pressure vitals are stable. Patient has normal CBC, normal electrolytes. She remains symptomatic in the emergency department. No evidence of arrhythmia on telemetry. Given the patient's recent valve replacement, she will be kept in observation on telemetry. Echo will be obtained. Cardiology placed on consult. Case discussed with admitting physician. - Lab Data Result diagrams: 02/13/19 19:45 02/13/19 19:45 Lab Results 02/13/19 02/13/19 02/13/19 Range/Units 19:45 19:45 19:45 WBC 6.5 (3.8-10.6) k/uL RBC 4.41 (3.80-5.40) m/uL Hgb 12.1 (11.4-16.0) gm/dL Hct 38.6 (34.0-46.0) % MCV 87.7 (80.0-100.0) fL MCH 27.4 (25.0-35.0) pg MCHC 31.3 (31.0-37.0) g/dL RDW 15.2 (11.5-15.5) % Plt Count 158 (150-450) k/uL Neutrophils % 71 % Lymphocytes % 20 % Monocytes % 4 % Eosinophils % 4 % Basophils % 0 % Neutrophils # 4.6 (1.3-7.7) k/uL Lymphocytes # 1.3 (1.0-4.8) k/uL Monocytes # 0.2 (0-1.0) k/uL Eosinophils # 0.2 (0-0.7) k/uL Basophils # 0.0 (0-0.2) k/uL PT 10.1 (9.0-12.0) sec INR 0.9 (<1.2) APTT 24.1 (22.0-30.0) sec Sodium 139 (137-145) mmol/L Potassium 4.3 (3.5-5.1) mmol/L Chloride 105 (98-107) mmol/L Carbon Dioxide 26 (22-30) mmol/L Anion Gap 8 mmol/L BUN 11 (7-17) mg/dL Creatinine 0.64 (0.52-1.04) mg/dL Est GFR (CKD-EPI)AfAm >90 (>60 ml/min/1.73 sqM) Est GFR (CKD-EPI)NonAf 89 (>60 ml/min/1.73 sqM) Glucose 323 H (74-99) mg/dL Calcium 9.2 (8.4-10.2) mg/dL Magnesium 1.8 (1.6-2.3) mg/dL Total Bilirubin 0.4 (0.2-1.3) mg/dL AST 30 (14-36) U/L ALT 31 (9-52) U/L Alkaline Phosphatase 112 (38-126) U/L Troponin I (0.000-0.034) ng/mL Total Protein 6.5 (6.3-8.2) g/dL Albumin 3.8 (3.5-5.0) g/dL 02/13/19 Range/Units 19:45 WBC (3.8-10.6) k/uL RBC (3.80-5.40) m/uL Hgb (11.4-16.0) gm/dL Hct (34.0-46.0) % MCV (80.0-100.0) fL MCH (25.0-35.0) pg MCHC (31.0-37.0) g/dL RDW (11.5-15.5) % Plt Count (150-450) k/uL Neutrophils % % Lymphocytes % % Monocytes % % Eosinophils % % Basophils % % Neutrophils # (1.3-7.7) k/uL Lymphocytes # (1.0-4.8) k/uL Monocytes # (0-1.0) k/uL Eosinophils # (0-0.7) k/uL Basophils # (0-0.2) k/uL PT (9.0-12.0) sec INR (<1.2) APTT (22.0-30.0) sec Sodium (137-145) mmol/L Potassium (3.5-5.1) mmol/L Chloride (98-107) mmol/L Carbon Dioxide (22-30) mmol/L Anion Gap mmol/L BUN (7-17) mg/dL Creatinine (0.52-1.04) mg/dL Est GFR (CKD-EPI)AfAm (>60 ml/min/1.73 sqM) Est GFR (CKD-EPI)NonAf (>60 ml/min/1.73 sqM) Glucose (74-99) mg/dL Calcium (8.4-10.2) mg/dL Magnesium (1.6-2.3) mg/dL Total Bilirubin (0.2-1.3) mg/dL AST (14-36) U/L ALT (9-52) U/L Alkaline Phosphatase (38-126) U/L Troponin I <0.012 (0.000-0.034) ng/mL Total Protein (6.3-8.2) g/dL Albumin (3.5-5.0) g/dL Disposition Clinical Impression: Paroxysmal a-fib, S/P TAVR (transcatheter aortic valve replacement), Palpitations Disposition: ADMITTED IP TO THIS [facility] Condition: Stable Is patient prescribed a controlled substance at d/c from ED?: No Referrals: Muriel Kang DO [Primary Care Provider] - 1-2 days Decision to Admit Reason: Admit from EC Decision Date: 02/13/19 Decision Time: 21:02
[2019-02-13 19:56] LABS: Basophils % (A) 0 %; Eosinophils # (A) 0.2 k/uL (0-0.7); Eosinophils % (A) 4 %; HCT 38.6 % (34.0-46.0); HGB 12.1 gm/dL (11.4-16.0); Lymphocytes # (A) 1.3 k/uL (1.0-4.8); Lymphocytes % (A) 20 %; MCH 27.4 pg (25.0-35.0); MCHC 31.3 g/dL (31.0-37.0); MCV 87.7 fL (80.0-100.0); Mean Platelet Volume 6.6; Monocytes # (A) 0.2 k/uL (0-1.0); Monocytes % (A) 4 %; Neutrophils # (A) 4.6 k/uL (1.3-7.7); Neutrophils % (A) 71 %; Platelet Count 158 k/uL (150-450); RBC 4.41 m/uL (3.80-5.40); RDW 15.2 % (11.5-15.5); WBC 6.5 k/uL (3.8-10.6)
[2019-02-13 20:04] LABS: INR 0.9 (<1.2); Partial Thromboplastin Time 24.1 sec (22.0-30.0); Prothrombin Time 10.1 sec (9.0-12.0)
[2019-02-13 20:05] LABS: ALT 31 U/L (9-52); AST 30 U/L (14-36); Albumin 3.8 g/dL (3.5-5.0); Alkaline Phosphatase 112 U/L (38-126); Anion Gap 8 mmol/L; Blood Urea Nitrogen 11 mg/dL (7-17); Calcium 9.2 mg/dL (8.4-10.2); Carbon Dioxide 26 mmol/L (22-30); Chloride 105 mmol/L (98-107); Glucose 323 mg/dL (74-99); Magnesium 1.8 mg/dL (1.6-2.3); Potassium 4.3 mmol/L (3.5-5.1); Sodium 139 mmol/L (137-145); Total Bilirubin 0.4 mg/dL (0.2-1.3); Total Protein 6.5 g/dL (6.3-8.2)
--- NOTE | 2019-02-13 20:13 | XR ---
EXAMINATION TYPE: XR chest 2V DATE OF EXAM: 02/13/2019 COMPARISON: 12/10/2017 HISTORY: Palpitations TECHNIQUE: Frontal and lateral views of the chest are obtained. FINDINGS: There is no heart failure nor confluent pneumonic infiltrate. Costophrenic angles are ally r. There is a left side pacemaker. There are chest leads. There is no pleural effusion. Bony thorax i s intact. There is some spurring in the thoracic spine. IMPRESSION: No active cardiopulmonary disease. No change.
[2019-02-13] MEDS ORDERED: NALOXONE 0.4 MG/ML 1 ML VIAL IV PRN (21:03)
[2019-02-13] MEDS ORDERED: ACETAMINOPHEN TAB 325 MG TAB PO PRN (21:03)
[2019-02-13] MEDS ORDERED: SODIUM CHLORIDE 0.9% 1,000 ML IV SCH (21:15)
[2019-02-13 22:04] VITALS: BMI 46.0
[2019-02-13 22:16] LABS: Glucose,Whole Blood 259 mg/dL (75-99)
[2019-02-13] MEDS ORDERED: INSULIN ASPART (NovoLOG) 100 UNIT/ML VIAL SQ ONE (22:54)
[2019-02-13] MEDS: CALCIUM CARBONATE 500 MG CHEWABLE PO SCH (23:17)
[2019-02-14 05:23] VITALS: TEMP 98.5
[2019-02-14] MEDS ORDERED: LEVOTHYROXINE 88 MCG TAB PO SCH (06:30)
[2019-02-14 06:50] LABS: Glucose,Whole Blood 189 mg/dL (75-99)
[2019-02-14] MEDS ORDERED: ASPIRIN 81 MG PO SCH (09:00)
[2019-02-14] MEDS ORDERED: NON-FORMULARY DRUG (Vitamin E [Vitamin E] 100 UNIT) PO SCH (09:00)
[2019-02-14] MEDS ORDERED: VITAMIN D3 PO SCH (09:00)
[2019-02-14] MEDS ORDERED: ASCORBIC ACID 500 MG TAB PO SCH (09:00)
[2019-02-14] MEDS ORDERED: CLOPIDOGREL 75 MG TAB PO SCH ×2 (09:00→21:00)
[2019-02-14] MEDS ORDERED: NON-FORMULARY DRUG (L.Acidoph,Paracasei, B.Lactis [Probiotic] 1 CAP) PO SCH (09:00)
[2019-02-14] MEDS ORDERED: NON-FORMULARY DRUG (Ginkgo Biloba [Ginkgo Biloba] 500 MG) PO SCH (09:00)
[2019-02-14] MEDS ORDERED: NON-FORMULARY DRUG (Fish Oil/Dha/Epa [Fish Oil 1,200 Mg Fish Oil] 1 CAP) PO SCH (09:00)
[2019-02-14] MEDS ORDERED: METOPROLOL TARTRATE 12.5 MG TAB PO SCH (09:00)
--- NOTE | 2019-02-14 09:03 | P.CRDCN ---
<Janna Verde A - Last Filed: 02/14/19 08:57> History of Present Illness Consult date: 02/14/19 Reason for Consult (text): Palpitations, left bundle branch block, status post TAVR History of present illness: IMPRESSION / ASSESSMENT: Palpitations History of severe aortic stenosis status post TAVR History of complete heart block status post pacemaker placement Diabetes mellitus type 2 Hypothyroidism PLAN: We will have [facility] pacemaker device interrogated for evaluation of sustained or nonsustained arrhythmia. Echocardiogram Check TSH If above studies are within normal limits, patient may be discharged home with follow-up with Dr. Watson in the next couple days. HPI This is a 74-year-old female patient of Dr. Watson who presented to the hospital with concerns for palpitations that been going on for the past 2 days. She has intermittent episodes of palpitations that she can feel in her sinuses and feels that she is skipping beats. Patient denies any chest pain, shortness of breath. She does have history of pacemaker in November [address] Badillo for complete heart block. In October 2018, patient underwent TAVR at [facility]. Heart catheterization 07/30/2018 revealed calcified mitral annulus as well as calcified aortic valve, moderate triple-vessel disease and severe aortic stenosis. MELISSA revealed normal left ventricle size and systolic function with concentric left hypertrophy. Severe aortic stenosis with mild to moderate aortic regurgitation. Mitral annulus calcification. Mild to moderate mitral and mild tricuspid regurgitation. No shunting across intra- atrial septum. ROS: No fever chills or rigors, no cough, phlegm or expectoration, no nausea, vomiting or diarrhea, no hematuria, dysuria, no musculoskeletal complaints, no strokes or seizures, no skin lesions. EXAMINATION: Gen: This is a 74-year-old morbidly obese female. She is resting in bed and appears to be comfortable and in no acute distress. 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 Pupils equal, round. Sclerae is anicteric. NECK: Supple. No JVD. No lymphadenopathy. No thyromegaly. LUNGS: Clear to auscultation. No wheezes or rhonchi. No intercostal retractions. HEART: Regular rate and rhythm. No murmur. ABDOMEN: Soft. Bowel sounds are present. No masses. No tenderness. EXTREMITIES: No pedal edema. No calf tenderness. NEUROLOGICAL: Patient is awake, alert and oriented x3. Cranial nerves 2 through 12 are grossly intact. REVIEW OF LABS, ECG & MEDICAL DATA EKG is pacer rhythm with first-degree AV block, Heart rate 68 CBC within normal limits. Complete metabolic panel within normal limits except for blood sugar of 323. Magnesium was 1.8 and potassium 4.3. Troponin 0.012. Chest x-ray shows no active cardiac pulmonary disease. Nurse practitioner note has been reviewed, I agree with documented findings and plan of care. Patient was seen and examined. Past Medical History Past Medical History: Atrial Fibrillation, Diabetes Mellitus, Hearing Disorder / Deafness, Hyperlipidemia, Osteoarthritis (OA), Pneumonia, Sleep Apnea/CPAP/BIPAP, Thyroid Disorder Additional Past Medical History / Comment(s): USES BIPAP, HX AORTIC STENOSIS. 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 HAD THYROID AND PARATHYROID REMOVAL. TOTAL LEFT KNEE REPLACEMENT, CATARACT RT EYE Past Anesthesia/Blood Transfusion Reactions: No Reported Reaction Type of Cardiac Device: Unknown Device Placement Date:: PACEMAKER NOV 2017. Past Psychological History: No Psychological Hx Reported Smoking Status: Never smoker Past Alcohol Use History: None Reported Past Drug Use History: None Reported - Past Family History Sister(s) Family Medical History: Cancer Additional Family Medical History / Comment(s): BREAST CANCER Medications and Allergies Home Medications Medication Instructions Recorded Confirmed Type Insulin Aspart Protam & Aspart 40 unit SQ AC-TID 12/07/17 02/13/19 History [NovoLOG MIX 70-30 Flexpen] Metoprolol Tartrate [Lopressor] 12.5 mg PO BID 12/07/17 02/13/19 History Calcium Carbonate 500 mg PO BID 12/08/17 02/13/19 History Ascorbic Acid [Vitamin C] 1,000 mg PO DAILY 02/13/19 02/13/19 History Aspirin EC [Ecotrin Low Dose] 81 mg PO DAILY 02/13/19 02/13/19 History Clopidogrel [Plavix] 75 mg PO DAILY 02/13/19 02/13/19 History Fish Oil/Dha/Epa [Fish Oil 1,200 1 cap PO DAILY 02/13/19 02/13/19 History mg Fish Oil] Ginkgo Biloba 500 mg PO DAILY 02/13/19 02/13/19 History L.acidoph,Paracasei, B.lactis 1 cap PO DAILY 02/13/19 02/13/19 History [Probiotic] Levothyroxine Sodium [Synthroid] 175 mcg PO DAILY 02/13/19 02/13/19 History Multivitamins, Thera [Multivitamin 1 tab PO DAILY 02/13/19 02/13/19 History (formulary)] Rosuvastatin [Crestor] 20 mg PO HS 02/13/19 02/13/19 History Vitamin D3(Unknown Dose) 1 tab PO DAILY 02/13/19 02/13/19 History Vitamin E 100 unit PO DAILY 02/13/19 02/13/19 History Allergies Allergy/AdvReac Type Severity Reaction Status Date / Time nitrofurantoin Allergy Rash/Hives Verified 02/13/19 19:59 macrocrystalline [From Macrodantin] phenazopyridine HCl Allergy Rash/Hives Verified 02/13/19 19:59 [From Pyridium] Physical Exam Vitals: Vital Signs Temp Pulse Pulse Resp BP BP Pulse Ox 02/14/19 04:00 98.5 F 62 18 142/78 100 02/14/19 00:00 98.3 F 60 18 122/58 95 02/13/19 23:39 18 02/13/19 22:35 18 02/13/19 21:56 98.8 F 65 18 143/60 96 02/13/19 21:00 60 17 187/84 98 02/13/19 20:30 60 14 152/70 98 02/13/19 19:19 98.9 F 74 16 174/70 96 Intake and Output 02/13/19 02/14/19 02/14/19 22:59 06:59 14:59 Other: Voiding Method Toilet Toilet # Voids 2 2 Weight 117.934 kg Results 02/13/19 19:45 03/29/19 19:45 Cardiac Enzymes 02/13/19 02/13/19 Range/Units 19:45 19:45 AST 30 (14-36) U/L Troponin I <0.012 (0.000-0.034) ng/mL Coagulation 02/13/19 Range/Units 19:45 PT 10.1 (9.0-12.0) sec APTT 24.1 (22.0-30.0) sec CBC 02/13/19 Range/Units 19:45 WBC 6.5 (3.8-10.6) k/uL RBC 4.41 (3.80-5.40) m/uL Hgb 12.1 (11.4-16.0) gm/dL Hct 38.6 (34.0-46.0) % Plt Count 158 (150-450) k/uL Comprehensive Metabolic Panel 02/13/19 Range/Units 19:45 Sodium 139 (137-145) mmol/L Potassium 4.3 (3.5-5.1) mmol/L Chloride 105 (98-107) mmol/L Carbon Dioxide 26 (22-30) mmol/L BUN 11 (7-17) mg/dL Creatinine 0.64 (0.52-1.04) mg/dL Glucose 323 H (74-99) mg/dL Calcium 9.2 (8.4-10.2) mg/dL AST 30 (14-36) U/L ALT 31 (9-52) U/L Alkaline Phosphatase 112 (38-126) U/L Total Protein 6.5 (6.3-8.2) g/dL Albumin 3.8 (3.5-5.0) g/dL Current Medications Generic Name Dose Route Start Last Admin Trade Name Freq PRN Reason Stop Dose Admin Acetaminophen 650 mg 02/13/19 21:03 Tylenol Tab PO Q6HR PRN Mild Pain or Fever > 100.5 Ascorbic Acid 1,000 mg 02/14/19 09:00 Vitamin C PO DAILY [facility] Aspirin 81 mg 02/14/19 09:00 Aspirin PO DAILY [facility] Atorvastatin Calcium 40 mg 02/14/19 21:00 Lipitor PO HS [facility] Calcium Carbonate/Glycine 500 mg 02/13/19 23:00 02/13/19 23:17 Tums PO 500 mg BID LILIYA Administration Clopidogrel Bisulfate 75 mg 02/14/19 09:00 Plavix PO DAILY [facility] Sodium Chloride 1,000 mls @ 20 mls/hr 02/13/19 21:15 02/13/19 22:20 Saline 0.9% IV Not Given .Q24H [facility] Insulin Aspart 40 unit 02/14/19 07:30 Novolog Mix 70-30 Vial SQ AC-TID [facility] Levothyroxine Sodium 176 mcg 02/14/19 06:30 02/14/19 06:47 Synthroid PO 176 mcg 0630 [facility] Administration Metoprolol Tartrate 12.5 mg 02/14/19 09:00 Lopressor PO BID [facility] Multivitamins 1 each 02/14/19 12:00 Theragran PO 1200 [facility] Naloxone HCl 0.2 mg 02/13/19 21:03 Narcan IV Q2M PRN Opioid Reversal Intake and Output 02/13/19 02/14/19 02/14/19 22:59 06:59 14:59 Other: Voiding Method Toilet Toilet # Voids 2 2 Weight 117.934 kg 02/13/19 19:45 02/13/19 19:45 <Sourav Badillo - Last Filed: 02/14/19 09:04> Physical Exam Vitals: Vital Signs Temp Pulse Pulse Resp BP BP Pulse Ox 02/14/19 08:00 98.5 F 57 L 16 146/64 95 02/14/19 07:58 62 18 02/14/19 04:00 98.5 F 62 18 142/78 100 02/14/19 00:00 98.3 F 60 18 122/58 95 02/13/19 23:39 18 02/13/19 22:35 18 02/13/19 21:56 98.8 F 65 18 143/60 96 02/13/19 21:00 60 17 187/84 98 02/13/19 20:30 60 14 152/70 98 02/13/19 19:19 98.9 F 74 16 174/70 96 Intake and Output 02/13/19 02/14/19 02/14/19 22:59 06:59 14:59 Other: Voiding Method Toilet Toilet Toilet # Voids 2 2 Weight 117.934 kg Results 02/13/19 19:45 02/13/19 19:45 Cardiac Enzymes 02/13/19 02/13/19 Range/Units 19:45 19:45 AST 30 (14-36) U/L Troponin I <0.012 (0.000-0.034) ng/mL Coagulation 02/13/19 Range/Units 19:45 PT 10.1 (9.0-12.0) sec APTT 24.1 (22.0-30.0) sec CBC 02/13/19 Range/Units 19:45 WBC 6.5 (3.8-10.6) k/uL RBC 4.41 (3.80-5.40) m/uL Hgb 12.1 (11.4-16.0) gm/dL Hct 38.6 (34.0-46.0) % Plt Count 158 (150-450) k/uL Comprehensive Metabolic Panel 02/13/19 Range/Units 19:45 Sodium 139 (137-145) mmol/L Potassium 4.3 (3.5-5.1) mmol/L Chloride 105 (98-107) mmol/L Carbon Dioxide 26 (22-30) mmol/L BUN 11 (7-17) mg/dL Creatinine 0.64 (0.52-1.04) mg/dL Glucose 323 H (74-99) mg/dL Calcium 9.2 (8.4-10.2) mg/dL AST 30 (14-36) U/L ALT 31 (9-52) U/L Alkaline Phosphatase 112 (38-126) U/L Total Protein 6.5 (6.3-8.2) g/dL Albumin 3.8 (3.5-5.0) g/dL Current Medications Generic Name Dose Route Start Last Admin Trade Name Freq PRN Reason Stop Dose Admin Acetaminophen 650 mg 02/13/19 21:03 Tylenol Tab PO Q6HR PRN Mild Pain or Fever > 100.5 Ascorbic Acid 1,000 mg 02/14/19 09:00 Vitamin C PO DAILY [facility] Aspirin 81 mg 02/14/19 09:00 Aspirin PO DAILY [facility] Atorvastatin Calcium 40 mg 02/14/19 21:00 Lipitor PO HS [facility] Calcium Carbonate/Glycine 500 mg 02/13/19 23:00 02/13/19 23:17 Tums PO 500 mg BID LILIYA Administration Clopidogrel Bisulfate 75 mg 02/14/19 09:00 Plavix PO DAILY [facility] Sodium Chloride 1,000 mls @ 20 mls/hr 02/13/19 21:15 02/13/19 22:20 Saline 0.9% IV Not Given .Q24H [facility] Insulin Aspart 40 unit 02/14/19 07:30 Novolog Mix 70-30 Vial SQ AC-TID [facility] Levothyroxine Sodium 176 mcg 02/14/19 06:30 02/14/19 06:47 Synthroid PO 176 mcg 0630 LILIYA Administration Metoprolol Tartrate 12.5 mg 02/14/19 09:00 Lopressor PO BID [facility] Multivitamins 1 each 02/14/19 12:00 Theragran PO 1200 [facility] Naloxone HCl 0.2 mg 02/13/19 21:03 Narcan IV Q2M PRN Opioid Reversal Intake and Output 02/13/19 02/14/19 02/14/19 22:59 06:59 14:59 Other: Voiding Method Toilet Toilet Toilet # Voids 2 2 Weight 117.934 kg 02/13/19 19:45 02/13/19 19:45
--- NOTE | 2019-02-14 09:04 | P.CRDCN ---
History of Present Illness History of present illness: Patient admitted with palpitations. No chest pain no syncope no loss of consciousness no breathing trouble She denies any sustained or nonsustained palpitations history. She felt something going up in her neck into her nose area She has a history of complete heart block status post permanent pacemaker implantation last November. Subsequently she had a Jc performed for severe aortic stenosis. Previously her LV function was normal but she has a history of complete heart block and his 100% RV paced My plan is to check a TSH, a pacemaker interrogation to look for any arrhythmias on pacemaker telemetry, LV function assessment especially since she is 100% RV paced. Further recommendations to follow See full dictation maneuvers practitioner Past Medical History Past Medical History: Atrial Fibrillation, Diabetes Mellitus, Hearing Disorder / Deafness, Hyperlipidemia, Osteoarthritis (OA), Pneumonia, Sleep Apnea/CPAP/BIPAP, Thyroid Disorder Additional Past Medical History / Comment(s): USES BIPAP, HX AORTIC STENOSIS. 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 HAD THYROID AND PARATHYROID REMOVAL. TOTAL LEFT KNEE REPLACEMENT, CATARACT RT EYE Past Anesthesia/Blood Transfusion Reactions: No Reported Reaction Type of Cardiac Device: Unknown Device Placement Date:: PACEMAKER NOV 2017. Past Psychological History: No Psychological Hx Reported Smoking Status: Never smoker Past Alcohol Use History: None Reported Past Drug Use History: None Reported - Past Family History Sister(s) Family Medical History: Cancer Additional Family Medical History / Comment(s): BREAST CANCER Medications and Allergies Home Medications Medication Instructions Recorded Confirmed Type Insulin Aspart Protam & Aspart 40 unit SQ AC-TID 12/07/17 02/13/19 History [NovoLOG MIX 70-30 Flexpen] Metoprolol Tartrate [Lopressor] 12.5 mg PO BID 12/07/17 02/13/19 History Calcium Carbonate 500 mg PO BID 12/08/17 02/13/19 History Ascorbic Acid [Vitamin C] 1,000 mg PO DAILY 02/13/19 02/13/19 History Aspirin EC [Ecotrin Low Dose] 81 mg PO DAILY 02/13/19 02/13/19 History Clopidogrel [Plavix] 75 mg PO DAILY 02/13/19 02/13/19 History Fish Oil/Dha/Epa [Fish Oil 1,200 1 cap PO DAILY 02/13/19 02/13/19 History mg Fish Oil] Ginkgo Biloba 500 mg PO DAILY 02/13/19 02/13/19 History L.acidoph,Paracasei, B.lactis 1 cap PO DAILY 02/13/19 02/13/19 History [Probiotic] Levothyroxine Sodium [Synthroid] 175 mcg PO DAILY 02/13/19 02/13/19 History Multivitamins, Thera [Multivitamin 1 tab PO DAILY 02/13/19 02/13/19 History (formulary)] Rosuvastatin [Crestor] 20 mg PO HS 02/13/19 02/13/19 History Vitamin D3(Unknown Dose) 1 tab PO DAILY 02/13/19 02/13/19 History Vitamin E 100 unit PO DAILY 02/13/19 02/13/19 History Allergies Allergy/AdvReac Type Severity Reaction Status Date / Time nitrofurantoin Allergy Rash/Hives Verified 02/13/19 19:59 macrocrystalline [From Macrodantin] phenazopyridine HCl Allergy Rash/Hives Verified 02/13/19 19:59 [From Pyridium] Physical Exam Vitals: Vital Signs Temp Pulse Pulse Resp BP BP Pulse Ox 02/14/19 08:00 98.5 F 57 L 16 146/64 95 02/14/19 07:58 62 18 02/14/19 04:00 98.5 F 62 18 142/78 100 02/14/19 00:00 98.3 F 60 18 122/58 95 02/13/19 23:39 18 02/13/19 22:35 18 02/13/19 21:56 98.8 F 65 18 143/60 96 02/13/19 21:00 60 17 187/84 98 02/13/19 20:30 60 14 152/70 98 02/13/19 19:19 98.9 F 74 16 174/70 96 Intake and Output 02/13/19 02/14/19 02/14/19 22:59 06:59 14:59 Other: Voiding Method Toilet Toilet Toilet # Voids 2 2 Weight 117.934 kg Results 02/13/19 19:45 02/13/19 19:45 Cardiac Enzymes 02/13/19 02/13/19 Range/Units 19:45 19:45 AST 30 (14-36) U/L Troponin I <0.012 (0.000-0.034) ng/mL Coagulation 02/13/19 Range/Units 19:45 PT 10.1 (9.0-12.0) sec APTT 24.1 (22.0-30.0) sec CBC 02/13/19 Range/Units 19:45 WBC 6.5 (3.8-10.6) k/uL RBC 4.41 (3.80-5.40) m/uL Hgb 12.1 (11.4-16.0) gm/dL Hct 38.6 (34.0-46.0) % Plt Count 158 (150-450) k/uL Comprehensive Metabolic Panel 02/13/19 Range/Units 19:45 Sodium 139 (137-145) mmol/L Potassium 4.3 (3.5-5.1) mmol/L Chloride 105 (98-107) mmol/L Carbon Dioxide 26 (22-30) mmol/L BUN 11 (7-17) mg/dL Creatinine 0.64 (0.52-1.04) mg/dL Glucose 323 H (74-99) mg/dL Calcium 9.2 (8.4-10.2) mg/dL AST 30 (14-36) U/L ALT 31 (9-52) U/L Alkaline Phosphatase 112 (38-126) U/L Total Protein 6.5 (6.3-8.2) g/dL Albumin 3.8 (3.5-5.0) g/dL Current Medications Generic Name Dose Route Start Last Admin Trade Name Freq PRN Reason Stop Dose Admin Acetaminophen 650 mg 02/13/19 21:03 Tylenol Tab PO Q6HR PRN Mild Pain or Fever > 100.5 Ascorbic Acid 1,000 mg 02/14/19 09:00 Vitamin C PO DAILY [facility] Aspirin 81 mg 02/14/19 09:00 Aspirin PO DAILY [facility] Atorvastatin Calcium 40 mg 02/14/19 21:00 Lipitor PO HS [facility] Calcium Carbonate/Glycine 500 mg 02/13/19 23:00 02/13/19 23:17 Tums PO 500 mg BID LILIYA Administration Clopidogrel Bisulfate 75 mg 02/14/19 09:00 Plavix PO DAILY [facility] Sodium Chloride 1,000 mls @ 20 mls/hr 02/13/19 21:15 02/13/19 22:20 Saline 0.9% IV Not Given .Q24H [facility] Insulin Aspart 40 unit 02/14/19 07:30 Novolog Mix 70-30 Vial SQ AC-TID [facility] Levothyroxine Sodium 176 mcg 02/14/19 06:30 02/14/19 06:47 Synthroid PO 176 mcg 0630 [facility] Administration Metoprolol Tartrate 12.5 mg 02/14/19 09:00 Lopressor PO BID [facility] Multivitamins 1 each 02/14/19 12:00 Theragran PO 1200 [facility] Naloxone HCl 0.2 mg 02/13/19 21:03 Narcan IV Q2M PRN Opioid Reversal Intake and Output 02/13/19 02/14/19 02/14/19 22:59 06:59 14:59 Other: Voiding Method Toilet Toilet Toilet # Voids 2 2 Weight 117.934 kg 02/13/19 19:45 02/13/19 19:45
[2019-02-14] MEDS: INSULN ASP PRT/INSULIN ASPART 100 UNIT/ML 10 ML VIAL SQ SCH ×2 (09:46→12:13)
[2019-02-14] MEDS: CALCIUM CARBONATE 500 MG CHEWABLE PO SCH (09:46)
[2019-02-14 11:52] LABS: Glucose,Whole Blood 329 mg/dL (75-99)
[2019-02-14 12:00] LABS: T4, Free (Free Thyroxine) 1.62 ng/dL (0.78-2.19)
[2019-02-14] MEDS ORDERED: MULTIVITAMINS, THERA 1 EACH TAB PO SCH (12:00)
[2019-02-14 12:03] VITALS: BP 124/74; PULSE 62; RESP 18
--- NOTE | 2019-02-14 16:08 | P.PN ---
Progress Note - Text Progress Note Date: 02/14/19 Came to see patient however she left AMA Not seen no billing
[2019-02-14] MEDS ORDERED: ATORVASTATIN 40 MG TAB PO SCH (21:00)
--- NOTE | 2019-02-15 10:58 | ECHOF ---
Referral Reason:s/p TAVR MEASUREMENTS -------- HEIGHT: 160.0 cm WEIGHT: 117.9 kg BP: 142/78 IVSd: 1.2 cm (0.6 - 1.1) LVIDd: 4.3 cm (3.9 - 5.3) LVPWd: 1.4 cm (0.6 - 1.1) IVSs: 2.2 cm LVIDs: 2.3 cm LVPWs: 1.8 cm Ao Diam: 3.0 cm (2.0 - 3.7) LA Diam: 4.4 cm (2.7 - 3.8) AV Cusp: 1.7 cm (1.5 - 2.6) EPSS: 0.9 cm MV E Ted: 1.49 m/s MV DecT: 281 ms MV A Ted: 1.87 m/s MV E/A Ratio: 0.80 AV maxP.87 mmHg AV meanP.01 mmHg RAP: 5.00 mmHg RVSP: 21.22 mmHg MV EF SLOPE: 39.96 mm/s (70 - 150) MV EXCURSION: 13.19 mm (> 18.000) FINDINGS -------- Paced rhythm. This was a technically difficult study with suboptimal views. The left ventricular size is normal. There is mild concentric left ventricular hypertrophy. Overa ll left ventricular systolic function is normal with, an EF between 55 - 60 %. The right ventricle is normal in size. The left atrium is mildly dilated. The right atrial size is normal. 5.0mg OF Lumason UTLIZED: 2 OR MORE WALL SEGMENTS NOT VISUALIZED. Peak/mean gradient across the Aortic Valve is 31.87mmHg / 20.01mmHg. Pt had the TAVR procedure done . The mitral valve leaflets are moderately thickened. Moderate mitral annular calcification present. Mild mitral regurgitation is present. The peak and mean MV gradients are 18.34mmHg 6.60mmHg as m easured by doppler. [id number] mitral stenosis. Mild tricuspid regurgitation present. The right ventricular systolic pressure, as measured by Doppl er, is 21.22mmHg. There is no pulmonic regurgitation present. The aortic root size is normal. IVC Not well visulized. There is no pericardial effusion. CONCLUSIONS -------- 1. Paced rhythm. 2. This was a technically difficult study with suboptimal views. 3. The left ventricular size is normal. 4. There is mild concentric left ventricular hypertrophy. 5. Overall left ventricular systolic function is normal with, an EF between 55 - 60 %. 6. The right ventricle is normal in size. 7. The left atrium is mildly dilated. 8. The right atrial size is normal. 9. 5.0mg OF Lumason UTLIZED: 2 OR MORE WALL SEGMENTS NOT VISUALIZED. 10. Peak/mean gradient across the Aortic Valve is 31.87mmHg / 20.01mmHg. 11. Pt had the TAVR procedure done. 12. The mitral valve leaflets are moderately thickened. 13. Moderate mitral annular calcification present. 14. Mild mitral regurgitation is present. 15. The peak and mean MV gradients are 18.34mmHg 6.60mmHg as measured by doppler. 16. Dagb-pd-gxwesqwz mitral stenosis. 17. Mild tricuspid regurgitation present. 18. The right ventricular systolic pressure, as measured by Doppler, is 21.22mmHg. 19. There is no pulmonic regurgitation present. 20. The aortic root size is normal. 21. IVC Not well visulized. 22. There is no pericardial effusion. TOOL STRAIGHTENER: Paola Paula RDCS
== END 2019-02-14 15:56 | disposition left against medical advice (07) ==
LOC: EC 19:05 → 1SOBS 21:03
PROVIDERS: ADMIT Internal Medicine; ATTEND Internal Medicine
DX: R00.2 Palpitations (principal); I48.0 Paroxysmal atrial fibrillation; E11.9 Type 2 diabetes mellitus without complications; H91.90 Unspecified hearing loss, unspecified ear; E78.5 Hyperlipidemia, unspecified; M19.90 Unspecified osteoarthritis, unspecified site; G47.30 Sleep apnea, unspecified; Z99.89 Dependence on other enabling machines and devices; E89.0 Postprocedural hypothyroidism; E66.01 Morbid (severe) obesity due to excess calories; Z68.42 Body mass index [BMI] 45.0-49.9, adult; Z53.21 Procedure and treatment not carried out due to patient leaving prior to being seen by health care provider; Z87.01 Personal history of pneumonia (recurrent); Z95.2 Presence of prosthetic heart valve; Z95.0 Presence of cardiac pacemaker; Z79.4 Long term (current) use of insulin; Z79.82 Long term (current) use of aspirin; Z79.02 Long term (current) use of antithrombotics/antiplatelets; Z79.890 Hormone replacement therapy; Z79.899 Other long term (current) drug therapy; Z88.1 Allergy status to other antibiotic agents; Z88.6 Allergy status to analgesic agent; Z16.24 Resistance to multiple antibiotics; Z80.3 Family history of malignant neoplasm of breast
CPT/HCPCS: 99285; 36415; 93005; 84439; 80053; 84443; 83735; 84484; 85025; 85610; 85730; 71046; G0378 ×2; C8929; Q9950; 93306

== ENCOUNTER 2020-10-27 06:06 | Day surgery (SDC) | payer MEDICARE ==
[2020-10-25 13:11] VITALS: BMI 46.0
[~2020-10-27 06:06] MED LIST changes: -ALPRAZolam 0.25 MG TAB PO PRN; -ALPRAZolam 0.5 MG TAB PO PRN; -ASPIRIN 325 MG TAB PO STA; -ATORVASTATIN 80 MG TAB PO STA; -NITROGLYCERIN SL TABS 0.4 MG TAB SUBLINGUAL PRN; +SODIUM CHLORIDE 0.9% 1,000 ML IV SCH; -SODIUM CHLORIDE 0.9% 1,000 ML in EMPTY BAG 1 BAG IV ONE
[2020-10-27 06:35] VITALS: PULSE 60; TEMP 99
[2020-10-27] MEDS ORDERED: SODIUM CHLORIDE 0.9% 500 ML 500 ML IV ONE (06:35)
[2020-10-27 06:43] LABS: Glucose,Whole Blood 276 mg/dL (75-99)
[2020-10-27] MEDS ORDERED: INSULIN ASPART (NovoLOG) 100 UNIT/ML VIAL SQ SCH (07:30)
[2020-10-27 07:41] VITALS: BP 166/72; RESP 16
--- NOTE | 2020-10-27 08:39 | P.EPPROC ---
- EP Procedure Note Electrophysiology Procedure Note: Procedure Cinefluoroscopy of the atrial and ventricular leads Left upper extremity venogram Diagnosis/indication Elevated atrial impedances since February 2020 The impedance graft was evaluated and somewhere between January and March there was a progressive rise in her atrial lead impedance from her baseline from 400 to a current level of almost 2500 Looking of his grafts this seems to be in almost abrupt increase in the month of February or March 2020 High atrial pacing percentage Atrial pacing threshold 1.5 V at 0.5 ms P waves 4.2 mV No noise in the atrial channel so far Current impedance 2525 ohms RV pacing threshold 0.4 start 0.4 ms, patient is pacemaker dependent, pacing impedance 630 ohms Details Cinefluoroscopy of the leads was performed no clear-cut fractures or breaks were noted in the atrial lead This is a passive lead positioned in the right atrial appendage RV lead is an RV apex 50 mL dye injected in the left arm. 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 This problem seemed to have begun in the month of March 2020 The patient denies any injury or fall or trauma to that region There does not appear to be any evidence for Twiddler's syndrome at least fluoroscopically The options include getting a central access with the subclavian stick or OR obtaining access in the reverse direction from the innominate vein, INSIDE OUT technique Versus Laser lead extraction of the atrial lead and implantation of an LV and an atrial lead Versus epicardial LV and atrial lead placement placement These were briefly discussed with the patient
== END 2020-10-27 07:54 | disposition home or self-care (01) ==
LOC: CATHEP 06:06
PROVIDERS: ATTEND Internal Medicine Clinical Cardiac Electrophysiology
DX: I70.8 Atherosclerosis of other arteries (principal); I44.2 Atrioventricular block, complete; T82.110A Breakdown (mechanical) of cardiac electrode, initial encounter; I10 Essential (primary) hypertension; E78.2 Mixed hyperlipidemia; E11.9 Type 2 diabetes mellitus without complications; Z95.2 Presence of prosthetic heart valve; I25.10 Atherosclerotic heart disease of native coronary artery without angina pectoris; Z79.02 Long term (current) use of antithrombotics/antiplatelets; Z79.82 Long term (current) use of aspirin; Z79.899 Other long term (current) drug therapy; Z79.4 Long term (current) use of insulin; Z79.890 Hormone replacement therapy
CPT/HCPCS: 36005; 75820; 76000

== ENCOUNTER → 2021-06-27 | Outpatient (CLI) | payer MEDICARE ==
--- NOTE | 2021-06-27 21:16 | CONS ---
CONSULTATION REASON FOR CONSULTATION: Sleep apnea. HISTORY OF PRESENT ILLNESS: Sheila is 76 with diagnosis of obstructive sleep apnea. The patient has been diagnosed having sleep apnea more than 20 years ago and currently she is using a BiPAP unit which is at a pressure of 18/14 cm of water. This is a ResMed F9 series unit that has exceeded its motor life and the patient is interested in updating her BiPAP unit. She has been very compliant with the treatment. She has been averaging more than 7-8 hours of her BiPAP use per night. She wakes up alert and refreshed during the day without any major hypersomnia or sleepiness. No tiredness. No fatigue. No nighttime snoring, gasping, choking, or chest pain. She is using a Comfort Gel Blue nasal mask which she is interested also in updating. Note that her weight has remained stable over the years and she is currently weighing around 282 pounds. No new onset comorbidities. PAST MEDICAL HISTORY: Obstructive sleep apnea, history of aortic valve replacement. History of pacemaker insertion, diabetes mellitus, hypothyroidism, coronary artery disease with previous coronary stent insertion, paroxysmal atrial fibrillation and hyperlipidemia. PAST SURGICAL HISTORY: Includes pacemaker insertion, knee replacement, bilateral and aortic valve replacement and cardiac catheterization and stenting. OUTPATIENT MEDICATIONS: Synthroid 175 mcg once a day, insulin 40 units 3 times a day, Imdur 10 mg p.o. daily metoprolol 25 mg twice a day and Plavix 85 mg p.o. daily. SOCIAL HISTORY: Nonsmoker, no history of alcoholism. No history of IV drugs. FAMILY HISTORY: Negative for obstructive sleep apnea. REVIEW OF SYSTEMS: Fourteen-point review of system was done and positive findings are mentioned in history of present illness. PHYSICAL EXAMINATION: BP is 149/59, pulse is 94, respirations 18, temperature 97.1. Saturation 91% on room air. BMI is 49.4. Thida score is 18-3/4 of an inch and Thida score is at 2. GENERAL APPEARANCE: Obese, calm, comfortable. HEAD: Atraumatic, normocephalic. NECK: Supple. Mallampati class 4. There is no goiter or neck mass. LUNGS: Diminished, otherwise clear. HEART: Heart sounds are irregular, positive S1-S2. No murmurs. ABDOMEN: Soft, nontender. No organomegaly. EXTREMITIES: No edema, no cyanosis or clubbing. NEUROLOGIC: Awake and alert. No focal neurological deficits. PSYCHIATRIC: Negative for anxiety or depression. IMPRESSION: 1. Obstructive sleep apnea diagnosed more than 20 years ago, successfully treated with a BiPAP at a pressure of 18/14 cm of water. 2. Obesity with a BMI of 49.9. 3. Aortic valve replacement. 4. History of pacemaker insertion. 5. Diabetes mellitus. 6. Hypothyroidism. 7. Coronary artery disease, previous coronary stenting. 8. Paroxysmal atrial fibrillation. 9. Hypothyroidism. 10.Osteoarthritis with bilateral knee replacement. PLAN: We will order a new BiPAP unit at the same settings. I do not see the need for repeating a titration for this patient, knowing that his previous treatment with the same pressure setting has been extremely successful. Her current machine has exceeded its motor life and for that reason will be important for us to proceed with a new machine that will give us adequate followup on this patient including compliancy data and success of treatment. If needed, a home sleep study will be done to confirm the findings. Otherwise, we should be able to proceed with a new BiPAP unit for this patient. I offered an AirFit N20 nasal mask, large size. The patient will try and let me know if this is something that she would like to use in the future. Encourage weight loss. Continue her followup with Cardiology and see me back after obtaining her new BiPAP unit for a compliancy check. MMODL / IJN: [id number] /
== END ==
LOC: SLEEP 15:07
PROVIDERS: ATTEND Internal Medicine Critical Care Medicine
DX: G47.33 Obstructive sleep apnea (adult) (pediatric) (principal); E66.9 Obesity, unspecified; E11.9 Type 2 diabetes mellitus without complications; E03.9 Hypothyroidism, unspecified; I25.10 Atherosclerotic heart disease of native coronary artery without angina pectoris; I48.0 Paroxysmal atrial fibrillation; M17.0 Bilateral primary osteoarthritis of knee; E78.5 Hyperlipidemia, unspecified; Z68.35 Body mass index [BMI] 35.0-35.9, adult; Z96.653 Presence of artificial knee joint, bilateral; Z95.4 Presence of other heart-valve replacement; Z95.5 Presence of coronary angioplasty implant and graft; Z95.0 Presence of cardiac pacemaker; Z79.890 Hormone replacement therapy; Z79.4 Long term (current) use of insulin; Z79.899 Other long term (current) drug therapy; Z79.01 Long term (current) use of anticoagulants; Z88.1 Allergy status to other antibiotic agents; Z88.8 Allergy status to other drugs, medicaments and biological substances
CPT/HCPCS: 99211

== ENCOUNTER 2022-01-03 15:28 | Emergency (ER) | payer MEDICARE ==
[2022-01-03 16:12] VITALS: BP 149/60; PULSE 60; RESP 20; TEMP 97.9
[2022-01-03] MEDS ORDERED: HYDROmorphone 1 MG/ML 1 ML SYRINGE IM STA ×2 (16:55→19:51)
--- NOTE | 2022-01-03 18:00 | XR ---
EXAMINATION TYPE: XR shoulder complete RT DATE OF EXAM: 01/03/2022 COMPARISON: NONE HISTORY: Shoulder pain TECHNIQUE: 4 views FINDINGS: There is some deformity of the humeral neck suggestive of an acute impacted neck fracture. There is no dislocation. Scapula is intact. AC joint is intact. IMPRESSION: There is impacted humeral neck fracture that appears acute.
[2022-01-03] MEDS ORDERED: HYDROmorphone 1 MG/ML 1 ML SYRINGE IVP STA (19:11)
--- NOTE | 2022-01-03 19:28 | ED ---
Fall HPI - General Chief Complaint: Fall Stated Complaint: fall, shoulder pain Time Seen by Provider: 01/03/22 16:28 Source: patient Mode of arrival: EMS - History of Present Illness Initial Comments: 76-year-old female with past medical history of A. fib, diabetes presents to the emergency department after she sustained a fall. She was attempting to pick her car up at [facility]. States that she slipped on some gravel and fell on an outstretched right hand. She did not sustain any head injury. Denies any neck or back pain. She is not on any blood thinners. Does have pain in the right shoulder. She is right-hand dominant. Has seen Dr. Nixon before for orthopedic surgery. Denies any numbness, tingling or weakness in her hand. No pain in the wrist or elbow. She was offered pain medication by EMS however refused. No other alleviating, precipitating or modifying factors - Related Data Home Medications Medication Instructions Recorded Confirmed Metoprolol Tartrate [Lopressor] 25 mg PO BID 12/07/17 01/03/22 Ascorbic Acid [Vitamin C] 1,000 mg PO DAILY 02/13/19 01/03/22 Clopidogrel [Plavix] 75 mg PO HS 02/13/19 01/03/22 Multivitamins, Thera [Multivitamin 1 tab PO DAILY 02/13/19 01/03/22 (formulary)] Rosuvastatin [Crestor] 20 mg PO HS 02/13/19 01/03/22 Levothyroxine Sodium [Levoxyl] 175 mcg PO DAILY 10/25/20 01/03/22 Biotin 5 mg PO DAILY 01/03/22 01/03/22 Cholecalciferol [Vitamin D3 (125 125 mcg PO BID 01/03/22 01/03/22 Mcg = 5000 Iu)] FLUoxetine HCL [PROzac] 10 mg PO DAILY 01/03/22 01/03/22 Insulin Aspart [NovoLOG Flexpen] 40 units SQ AC-TID 01/03/22 01/03/22 Irbesartan [Avapro] 37.5 mg PO DAILY 01/03/22 01/03/22 Isosorbide Mononitrate ER [Imdur] 30 mg PO DAILY 01/03/22 01/03/22 Previous Rx's Medication Instructions Recorded HYDROcodone/APAP 10-325MG [[place] 1 tab PO Q6H PRN #18 tab 01/03/22 10-325] Allergies Allergy/AdvReac Type Severity Reaction Status Date / Time nitrofurantoin Allergy Rash/Hives Verified 01/03/22 17:43 macrocrystalline [From Macrodantin] phenazopyridine HCl Allergy Rash/Hives Verified 01/03/22 17:43 [From Pyridium] Review of Systems ROS Statement: Those systems with pertinent positive or pertinent negative responses have been documented in the HPI. ROS Other: All systems not noted in ROS Statement are negative. 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 HAD THYROID AND PARATHYROID REMOVAL. TOTAL LEFT KNEE REPLACEMENT, CATARACT RT EYE, CATARACT LEFT EYE SURGERY Past Anesthesia/Blood Transfusion Reactions: No Reported Reaction Type of Cardiac Device: Unknown Device Placement Date:: PACEMAKER NOV 2017. Past Psychological History: No Psychological Hx Reported Smoking Status: Never smoker Past Alcohol Use History: None Reported Past Drug Use History: None Reported - Past Family History Daughter(s) Family Medical History: Deep Vein Thrombosis (DVT) Sister(s) Family Medical History: Cancer Additional Family Medical History / Comment(s): BREAST CANCER General Exam Limitations: no limitations Course Vital Signs 01/03/22 16:09 Temperature 97.9 F Pulse Rate 60 Respiratory 20 Rate Blood Pressure 149/60 O2 Sat by Pulse 94 L Oximetry Medical Decision Making - Medical Decision Making Upon arrival patient was placed into room 16. A thorough history and physical exam was performed. 1 mg of IM Dilaudid was given to the patient she was sent over for an x-ray of her right shoulder. He does demonstrate an impacted humeral neck fracture. Results are discussed with the patient. No signs of dislocation. Patient remains neurovascularly intact. I did discuss the diagnosis and treatment plan. She will be discharged home with a prescription for [place]. She is to alternate taking this with Motrin. Call and make an appointment with Dr. Nixon in the morning. Return for any new or worsening symptoms. Patient agreed to plan was discharged home in stable condition Disposition Clinical Impression: Fall, Right humeral fracture Disposition: HOME SELF-CARE Condition: Stable Instructions (If sedation given, give patient instructions): Arm Fracture in Adults (ED) Additional Instructions: Please follow-up with orthopedic doctor. Call and make an appointment tomorrow. Take the [place] alternating with Motrin 600 mg every 4 hours. Return for any new or worsening symptoms. Wear the sling, rest, ice the area Prescriptions: HYDROcodone/APAP 10-325MG [[place] 10-325] 1 tab PO Q6H PRN #18 tab PRN Reason: pain Is patient prescribed a controlled substance at d/c from ED?: Yes When asked, does pt state using other controlled substances?: No If prescribed controlled substance>3 days was MAPS reviewed?: Prescribed <3 Days If opioid is for acute pain is fill amount 7 days or less?: Yes If Rx opioid, was Start Talking consent form obtained?: Yes Referrals: Ibrahima Hua MD [Primary Care Provider] - 1-2 days Leobardo Soto MD [STAFF PHYSICIAN] - 1-2 days Time of Disposition: 19:27
== END 2022-01-03 20:09 | disposition home or self-care (01) ==
LOC: EC 15:28
DX: S42.211A Unspecified displaced fracture of surgical neck of right humerus, initial encounter for closed fracture (principal); I48.91 Unspecified atrial fibrillation; E11.9 Type 2 diabetes mellitus without complications; E78.5 Hyperlipidemia, unspecified; M19.90 Unspecified osteoarthritis, unspecified site; E07.9 Disorder of thyroid, unspecified; Z79.02 Long term (current) use of antithrombotics/antiplatelets; Z79.4 Long term (current) use of insulin; Z95.0 Presence of cardiac pacemaker; Z98.51 Tubal ligation status; Z96.653 Presence of artificial knee joint, bilateral; W01.0XXA Fall on same level from slipping, tripping and stumbling without subsequent striking against object, initial encounter
CPT/HCPCS: 99283; 96372 ×2; 73030; J1170

== ENCOUNTER 2022-04-17 06:10 | Day surgery (SDC) | payer MEDICARE ==
[2022-04-12 14:57] VITALS: BMI 46.0
--- NOTE | 2022-04-16 11:34 | HP ---
HISTORY AND PHYSICAL CHIEF COMPLAINT: Right hip pain. HISTORY OF PRESENT ILLNESS: The patient is a 77-year-old retired female who presents with progressive right hip pain for the past several years, worsening recently. She is having pain with any weight- bearing activities. She notes that her leg wants to give out on her. She uses a cane intermittently. She has tried medications, with minimal relief. PAST MEDICAL HISTORY: Significant for arthritis, hypertension, hypothyroidism, heart disease, type 2 diabetes. PAST SURGICAL HISTORY: Significant for bilateral total knee arthroplasty, aortic valve replacement and pacemaker placement. CURRENT MEDICATIONS: Crestor, insulin, Levoxyl, Plavix, Soma, hydrocodone. ALLERGIES: MACRODANTIN. FAMILY HISTORY: Significant for cancer and heart disease. SOCIAL HISTORY: Negative for current tobacco or alcohol use. REVIEW OF SYSTEMS: Sixteen-point review of systems otherwise reviewed and is noncontributory. PHYSICAL EXAMINATION: On examination, the patient is approximately 5 feet 3 inches, 260 pounds of endomorphic habitus. HEENT exam is nonfocal. Neck is supple. Passive motion of right hip: Flexion 80 degrees, external rotation with the hip flexed 60 degrees, internal rotation zero degrees with pain. Clinically she has 1 cm shortening of the right lower extremity compared to the left. She does have an antalgic gait pattern. Her distal neurovascular exam appears intact in the right lower extremity. X-rays to include AP of the pelvis obtained in the office show severe right hip osteoarthrosis with [id number] changes. IMPRESSION: 1. Right hip severe osteoarthrosis. 2. Increased body mass index. 3. History of aortic valve replacement. RECOMMENDATIONS: I talked to the patient at length regarding her condition along with treatment options. At this point she is quite limited because of pain related to her osteoarthrosis despite previous conservative measures. After thorough discussion, she opts to proceed with surgery. We will plan to proceed with right total hip arthroplasty utilizing the lateral approach. We will reinstitute her Plavix postoperatively. Risks and benefits were discussed at length in layman's terms. The patient underwent preoperative cardiac evaluation by Dr. Watson. MMMARIA VICTORIAL / MIYA: [id number] / ROSY
[~2022-04-17 06:10] MED LIST changes: +ACETAMINOPHEN TAB 500 MG TAB PO PRN; +DEXAMETHASONE SOD PHOSPHATE 4 MG/ML 1 ML VIAL IV ONE; +HYDROmorphone 0.5 MG/0.5 ML SYRINGE IVP PRN; +LIDOCAINE 1% (10MG/ML) FOR IV START INTRADERMA PRN; +MELOXICAM 7.5 MG TAB PO PRN; +ONDANSETRON 4 MG/2 ML VIAL IVP ONE; +ONDANSETRON 4 MG/2 ML VIAL IVP PRN; -SODIUM CHLORIDE 0.9% 1,000 ML IV SCH; +TRANEXAMIC ACID IN NACL,ISO-OS 1,000 MG in SALINE 1 100ML.BAG IVPB PRN
[2022-04-17 07:01] LABS: Glucose,Whole Blood 337 mg/dL (75-99)
[2022-04-17 07:01] LABS: Glucose,Whole Blood 336 mg/dL (75-99)
[2022-04-17] MEDS: LACTATED RINGERS 1,000 ML IV SCH (07:04)
[2022-04-17] MEDS: INSULIN ASPART (NovoLOG) 100 UNIT/ML VIAL SQ SCH ×4 (07:10→21:08)
[2022-04-17] MEDS ORDERED: MIDAZOLAM 2 MG/2 ML VIAL ONE (07:46)
[2022-04-17] MEDS ORDERED: TRANEXAMIC ACID IN NACL,ISO-OS 1,000 MG/100 ML BAG ONE (07:46)
[2022-04-17] MEDS ORDERED: SUCCINYLCHOLINE CHLORIDE VIAL 200 MG/10 ML VIAL IV ONE (07:46)
[2022-04-17] MEDS ORDERED: fentaNYL (PF) 50 MCG/ML 2 ML AMP ONE (07:46)
[2022-04-17] MEDS ORDERED: PROPOFOL 10 MG/ML 20 ML VIAL IV ONE (07:46)
[2022-04-17] MEDS ORDERED: NEOSTIGMINE 1 MG/ML 10 ML VIAL ONE (07:46)
[2022-04-17] MEDS ORDERED: PHENYLEPHRINE-0.9% NACL SYG 1,000 MCG/10 ML SYRINGE ONE (07:46)
[2022-04-17] MEDS ORDERED: GLYCOPYRROLATE 0.2 MG/ML 2 ML VIAL ONE (07:46)
[2022-04-17] MEDS ORDERED: ePHEDrine 50 MG/ML 1 ML VIAL ONE (07:46)
[2022-04-17] MEDS ORDERED: HYDROmorphone (PF) 1 MG/ML ONE (07:46)
[2022-04-17] MEDS ORDERED: ROCURONIUM 10 MG/ML (5 ML VIAL) IV ONE (07:46)
[2022-04-17] MEDS ORDERED: ceFAZolin 1,000 MG in SODIUM CHLORIDE 0.9% 1,000 ML IRRIGATION ONE (08:21)
[2022-04-17] MEDS ORDERED: LACTATED RINGERS 1,000 ML IV ONE (09:00)
[2022-04-17] MEDS ORDERED: NALOXONE 0.4 MG/ML 1 ML VIAL IV PRN (09:34)
--- NOTE | 2022-04-17 09:59 | P.OP ---
Date of Procedure: 04/17/22 Preoperative Diagnosis: Right hip severe osteoarthrosis Postoperative Diagnosis: Same Procedure(s) Performed: Right total hip arthroplastypress-fitlateral approach Implants: Depuy Corail size 11 collared KLA press-fit femoral stem, 36mm -2 cobalt chrome femoral head, 52 mm [place] acetabular shell with neutral polyethylene liner. Anesthesia: BKA Surgeon: Leobardo Soto Director Of Teacher Education #1: Jorge Guajardo Estimated Blood Loss (ml): 200 Pathology: other (Femoral head) Condition: stable Disposition: PACU Indications for Procedure: The patient's a 77-year-old female who presents with progressive right hip pain secondary osteoporosis despite conservative measures. A discussion of the risks and benefits of operative intervention versus continued conservative measures made with patient. She opted to proceed with surgery. Operative risks to include infection, neurovascular injury, development of blood clots, fracture, leg length discrepancy, instability, possible need for subsequent procedures was discussed. Informed consent was obtained. Operative Findings: As below Description of Procedure: The patient was brought to the operating room, and after induction of spinal anesthesia was placed in a lateral decubitus position. The bony prominences were appropriately padded. The pelvis was stable perpendicular to the floor with a pegboard. The right lower extremity was prepped and draped in normal fashion. A 12 cm incision was then made centered over the greater trochanter extending superiorly to level the ASIS and distally in line with the femoral shaft. The skin and subcutaneous tissues were divided sharply. Electrocautery was used for hemostasis. The fascia herb and gluteus festus fascia was split in line with the skin incision. The muscle fibers were bluntly dissected proximally. A self-retaining retractor was placed. The anterior and posterior margins of the gluteus medius muscles identified and the anterior two thirds was detached from the greater trochanter with electrocautery. The gluteus minimus tendon was identified and detached in a similar fashion. A wide capsulotomy was performed. The femoral neck fracture was identified in the lower neck cut was made approximately 1 1/2 cm above the level of the lesser trochanter with a sagittal saw at a 45 the shaft. The head was then extracted with a corkscrew. Attention was then paid towards preparing the acetabular. Anterior and posterior retractors were placed. The remaining capsular labral tissues debrided sharply clearly defining the acetabular margins. Began reaming with a 45 mm reamer taking care to initially medialize, then reaming at 45 of abduction and 20 of anteversion. Sequential reaming is performed up to 51 mm. This was down to bleeding bony surface. A trial 52 mm acetabular shell was inserted at 45 of abduction and 20 of anteversion. This was fully seated. There was good rim fit and stability. A neutral polyethylene liner was then impacted. Care taken to avoid any soft tissue interposition. Attention was then paid towards preparing the proximal femur. A box chisel was used to open the metaphyseal region. A canal finder was used to find the femoral canal. Sequential broaching was performed up to a size 11. This is placed in 15 of anteversion with the leg perpendicular floor judging off the trans-epicondylar axis. There is good rotational stability. A calcar mill was used to fashion the medial calcar. A trial KLA neck along with a 36 mm -2 trial head was placed. The hip was gently reduced. It was taken through range of motion. I felt to be stable in flexion and extension with internal and external rotation. I felt there was adequate protestant of soft tissue tension. The hip was gently dislocated. The trial components removed. Pulsatile lavage was utilized. The final size 11 KLA collared femoral stem was inserted again with the leg perpendicular to the floor in 15 of anteversion. Again there was good rotational stability. A 36 mm -2 cobalt chrome femoral head was gently impacted. The hip was gently reduced. Again it was taken through motion and felt to be stable in flexion and extension with internal and external rotation. Pulsatile lavage was again utilized. With the leg in abduction the gluteus minimus and medius tendons reattached to the greater trochanter with #2 Ethibond suture. There was minimal drainage therefore a deep drain was not placed. The fascia herb and gluteus festus fascia was closed with #2 Ethibond suture. The subcutaneous tissues were reapproximated interrupted 2-0 Vicryl sutures. The skin was reapproximated with 3-0 subcuticular strata fix suture. Skin tape and adhesive was applied. A sterile dressing was applied. The patient was awoken from sedation and transferred to recovery room in good condition. Blood loss was estimated 200 mL. No complications were incurred. Sponge and needle counts were correct in the case. Jorge CHEEK assisted during the major composes case to include exposure, implantation, and closure.
[2022-04-17] MEDS ORDERED: INSULIN ASPART (NovoLOG) 100 UNIT/ML VIAL SQ ONE (10:11)
[2022-04-17 10:15] LABS: Glucose,Whole Blood 377 mg/dL (75-99)
--- NOTE | 2022-04-17 10:25 | XR ---
EXAMINATION TYPE: XR Hip Limited RT DATE OF EXAM: 04/17/2022 Comparison: 01/25/2022 Clinical History: 77-year-old female Status post hip surgery, assess surgical alignment Findings: Image shows placement of right hip total arthroplasty. Acetabular cup and femoral stem components of the prosthesis are well seated without periprosthetic fracture. Alignment grossly anatomic. Vascular calcifications noted along the medial aspect of the upper thigh. Degenerative subarticular sclerosis right SI joint. Linear ossification projecting along the right side of the pelvis were present on the preoperative images, probably some type of soft tissue calcification. Impression: Uncomplicated postoperative appearance right hip total arthroplasty. Suspect some type of linear soft tissue calcifications projecting along the right side of the pelvis.
[2022-04-17] MEDS: HYDROmorphone 0.5 MG/0.5 ML SYRINGE IVP PRN ×2 (12:09→19:35)
[2022-04-17 14:34] LABS: Glucose,Whole Blood 436 mg/dL (75-99)
[2022-04-17] MEDS: HYDROcodone/APAP 7.5-325MG 1 EACH TAB PO PRN (15:53)
[2022-04-17] MEDS: ceFAZolin 3 GM in SODIUM CHLORIDE 0.9% 100 ML IVPB SCH (15:53)
[2022-04-17 16:31] LABS: Glucose,Whole Blood 431 mg/dL (75-99)
[2022-04-17 20:57] LABS: Glucose,Whole Blood 360 mg/dL (75-99)
[2022-04-17] MEDS ORDERED: SENNOSIDES-DOCUSATE SODIUM 1 EACH TAB PO SCH (21:00)
[2022-04-17] MEDS: HYDROcodone/APAP 5-325MG 1 EACH TAB PO PRN (21:12)
[2022-04-17] MEDS ORDERED: INSULIN DETEMIR (LEVEMIR) 100 UNIT/ML SYR SQ SCH ×2 (22:15)
--- NOTE | 2022-04-17 22:24 | P.CONS ---
History of Present Illness - History of Present Illness This is a pleasant 77 years old female with past medical history of severe os teoarthritis including of the right hip, Atrial Fibrillation not on anticoagulation, Diabetes Mellitus, Hearing Disorder / Deafness, Hyperlipidemia, Hypertension, Sleep Apnea/CPAP/BIPAP hypothyroidism Was admitted for severe osteoarthritis of the right hip and she underwent total hip arthroplasty. Today is postoperative day #1, she was sitting comfortable in bed and pleasant. She denies any specific symptoms. No chest pain, no vomiting or diarrhea. No change in urine or bowel habits. No fever. Pressure was low normal like 101/50. Her metoprolol 25 mg on hold. She is continued on aspirin and Plavix We will add normal saline 100 mL per hour Patient takes NovoLog 40 units with meals with no long-acting at home. She says she has Lantus at home but she does not use it, patient was counseled about insulin management and she agrees to start long-acting insulin and Levemir. We will start 15 units of Levemir at bedtime with 15 units of with meals of NovoLog. Review of Systems CONSTITUTIONAL: No fever, no malaise, no fatigue. HEENT: No recent visual problems or hearing problems. Denied any sore throat. CARDIOVASCULAR: No orthopnea, PND, no palpitations, no syncope. PULMONARY: No shortness of breath, no cough, no hemoptysis. GASTROINTESTINAL: No diarrhea, no nausea, no vomiting, no abdominal pain. Normoactive bowel sounds. NEUROLOGICAL: No headaches, no weakness, no numbness. HEMATOLOGICAL: Denies any bleeding or petechiae. GENITOURINARY: Denies any burning micturition, frequency, or urgency. MUSCULOSKELETAL/RHEUMATOLOGICAL: Denies any joint pain, swelling, or any muscle pain. ENDOCRINE: Denies any polyuria or polydipsia. Past Medical History Past Medical History: Atrial Fibrillation, Diabetes Mellitus, Hearing Disorder / Deafness, Hyperlipidemia, Hypertension, Osteoarthritis (OA), Pneumonia, Sleep Apnea/CPAP/BIPAP, Thyroid Disorder Additional Past Medical History / Comment(s): USES BIPAP, AORTIC VALVE REPLACEMENT , HX A-FIB WITH PNEUMONIA-RESOLVED. FX RT SHOULDER 01/03/22 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 HAD THYROID AND PARATHYROID REMOVAL. TOTAL LEFT KNEE REPLACEMENT, CATARACT RT EYE, CATARACT LEFT EYE SURGERY ,COLONOSCOPY, TVAR- 11/2018 , Aortic valve replacement 10/2018 Past Anesthesia/Blood Transfusion Reactions: No Reported Reaction Type of Cardiac Device: Permanent Pacemaker Device Placement Date:: PACEMAKER NOV 2017. Past Psychological History: No Psychological Hx Reported Smoking Status: Never smoker Past Alcohol Use History: None Reported Past Drug Use History: None Reported - Past Family History Daughter(s) Family Medical History: Deep Vein Thrombosis (DVT) Sister(s) Family Medical History: Cancer Additional Family Medical History / Comment(s): BREAST CANCER Medications and Allergies Home Medications Medication Instructions Recorded Confirmed Type Metoprolol Tartrate [Lopressor] 25 mg PO BID 12/07/17 04/12/22 History Clopidogrel [Plavix] 75 mg PO HS 02/13/19 04/12/22 History Multivitamins, Thera [Multivitamin 1 tab PO DAILY 02/13/19 04/17/22 History (formulary)] Rosuvastatin [Crestor] 20 mg PO HS 02/13/19 04/17/22 History Levothyroxine Sodium [Levoxyl] 175 mcg PO DAILY 10/25/20 04/12/22 History Insulin Aspart [NovoLOG Flexpen] 40 units SQ AC-TID 01/03/22 04/17/22 History Isosorbide Mononitrate ER [Imdur] 30 mg PO DAILY 01/03/22 04/12/22 History Aspirin [Adult Low Dose Aspirin EC] 81 mg PO DAILY 04/12/22 04/17/22 History Allergies Allergy/AdvReac Type Severity Reaction Status Date / Time nitrofurantoin Allergy Rash/Hives Verified 04/12/22 14:16 macrocrystalline [From Macrodantin] phenazopyridine HCl Allergy Rash/Hives Verified 04/12/22 14:16 [From Pyridium] Physical Exam Vitals: Vital Signs Temp Pulse Pulse Resp BP BP Pulse Ox 04/17/22 11:44 64 16 122/59 97 04/17/22 11:25 63 16 119/57 92 L 04/17/22 11:10 62 16 115/56 94 L 04/17/22 10:55 61 16 116/54 95 04/17/22 10:40 62 16 141/68 98 04/17/22 10:25 62 16 131/60 98 04/17/22 10:10 63 16 126/56 98 04/17/22 09:54 97.4 F L 75 16 166/78 93 L 04/17/22 06:48 97.9 F 63 18 137/62 93 L Intake and Output 04/16/22 04/17/22 04/17/22 22:59 06:59 14:59 Intake Total 1551 Output Total 200 Balance 1351 Intake: IV 1551 Output: Estimated Blood Loss 200 Other: Weight 125 kg 125 kg GENERAL: The patient is alert and oriented x3, not in any acute distress. Well developed, well nourished. HEENT: Pupils are round and equally reacting to light. EOMI. No scleral icterus. No conjunctival pallor. Normocephalic, atraumatic. No pharyngeal erythema. No thyromegaly. CARDIOVASCULAR: S1 and S2 present. No murmurs, rubs, or gallops. PULMONARY: Chest is clear to auscultation, no wheezing or crackles. ABDOMEN: Soft, nontender, nondistended, normoactive bowel sounds. No palpable organomegaly. MUSCULOSKELETAL: No joint swelling or deformity. EXTREMITIES: No cyanosis, clubbing, or pedal edema. NEUROLOGICAL: Gross neurological examination did not reveal any focal deficits. SKIN: No rashes. No petechiae guarded Results Labs: Abnormal Lab Results - Last 24 Hours (Table) 04/17/22 04/17/22 04/17/22 Range/Units 06:53 06:58 10:03 POC Glucose (mg/dL) 337 H 336 H 377 H (75-99) mg/dL Assessment and Plan Assessment: Severe osteoarthritis status post right ОЛЕГ Diabetes mellitus with hyperglycemia Hypertension Hyperlipidemia Chronic atrial fibrillation not on anticoagulation Obesity History of sleep apnea Plan: This is a pleasant 77 years old female with right ОЛЕГ. We'll change her insulin regimen and Levemir 15 units at bedtime and NovoLog 15 units with meals, follow-up as an outpatient. Hold metoprolol, standard 100 ml per hour Labs and medication were reviewed.. Continue same treatment. Continue with symptomatic treatment. Resume home medication. Monitor lytes and vitals. DVT and GI prophylaxis. Further recommendations as per clinical course of the patient DVT prophylaxis: Deferred to surgery primary team GI Prophylaxis: Pepcid We recommend patient follow up with PCP in one week after discharge as well as with [facility] Dr. Gaines or Dr. phelps in one week after discharge Thank you for consulting us
[2022-04-17] MEDS: SODIUM CHLORIDE 0.9% 1,000 ML IV SCH (22:46)
[2022-04-18] MEDS: ceFAZolin 3 GM in SODIUM CHLORIDE 0.9% 100 ML IVPB SCH (00:28)
[2022-04-18] MEDS: HYDROcodone/APAP 5-325MG 1 EACH TAB PO PRN (03:15)
[2022-04-18 06:58] LABS: Glucose,Whole Blood 267 mg/dL (75-99)
[2022-04-18] MEDS: INSULIN ASPART (NovoLOG) 100 UNIT/ML VIAL SQ SCH (07:18)
[2022-04-18] MEDS ORDERED: INSULIN ASPART (NovoLOG) 100 UNIT/ML VIAL SQ SCH ×3 (07:30→12:30)
[2022-04-18 07:33] VITALS: BP 139/64; PULSE 90; RESP 17; TEMP 98.6
[2022-04-18] MEDS: LACTATED RINGERS 1,000 ML IV SCH (08:35)
[2022-04-18] MEDS: SODIUM CHLORIDE 0.9% 1,000 ML IV SCH (08:36)
[2022-04-18] MEDS ORDERED: ASPIRIN 81 MG PO SCH (09:00)
[2022-04-18] MEDS ORDERED: CLOPIDOGREL 75 MG TAB PO SCH (09:00)
[2022-04-18 09:14] LABS: Basophils # (A) 0.02 X 10*3/uL (0.00-0.10); Basophils % (A) 0.2 %; Eosinophils # (A) 0 X 10*3/uL (0.04-0.35); Eosinophils % (A) 0 %; HCT 32.4 % (37.2-46.3); HGB 10.1 g/dL (12.0-15.0); Immature Grans, Automated 0.4 %; Lymphocytes # (A) 0.99 X 10*3/uL (0.90-5.00); Lymphocytes % (A) 10.6 %; MCH 29.5 pg (27.0-32.0); MCHC 31.2 g/dL (32.0-37.0); MCV 94.7 fL (80.0-97.0); Mean Platelet Volume 10.9 fL (9.5-12.2); Monocytes # (A) 0.78 X 10*3/uL (0.20-1.00); Monocytes % (A) 8.4 %; NRBC Per 100 WBC 0 /100 WBCS (0.0-0.0); Neutrophils % (A) 80.4 %; Platelet Count 143 X 10*3/uL (140-440); RBC 3.42 X 10*6/uL (4.10-5.20); RDW 14.4 % (11.5-14.5); WBC 9.33 X 10*3/uL (4.50-10.00)
--- NOTE | 2022-04-18 09:56 | P.PN ---
Subjective Progress Note Date: 04/18/22 Principal diagnosis: Status post right total hip arthroplasty Patient evaluated today at bedside, she is redressed in the sitting up in her hospital chair. She's done very well with physical therapy. Her pain is well- controlled at this time. She currently denies any headaches, lightheadedness, chest pain or shortness of breath. Objective - Vital Signs Vital signs: Vital Signs Temp 98.6 F 04/18/22 07:32 Pulse 90 04/18/22 07:32 Resp 17 04/18/22 07:32 BP 139/64 04/18/22 07:32 Pulse Ox 90 L 04/18/22 07:32 FiO2 Intake & Output 04/17/22 04/18/22 04/18/22 18:59 06:59 18:59 Intake Total 1551 Output Total 200 Balance 1351 Weight 125 kg Intake: IV 1551 Output: Estimated Blood Loss 200 Other: Voiding Method Toilet # Voids 1 - Exam Right lower extremity: Incision is clean, dry, and intact. The postoperative bandage is in good condition. There is minimal soft tissue swelling and ecchymosis surrounding the medial and lateral aspects of the incision. Calf is soft, no tenderness with palpation. Plantar flexion, dorsiflexion, EHL, FHL are intact. Sensory exam to light touch throughout the extremity is intact, dorsal pedis pulses 2+. - Labs CBC & Chem 7: 04/18/22 04:55 Labs: Abnormal Lab Results - Last 24 Hours (Table) 04/17/22 04/17/22 04/17/22 Range/Units 10:03 14:30 16:27 RBC (4.10-5.20) X 10*6/uL Hgb (12.0-15.0) g/dL Hct (37.2-46.3) % MCHC (32.0-37.0) g/dL Eosinophils # (0.04-0.35) X 10*3/uL POC Glucose (mg/dL) 377 H 436 H 431 H (75-99) mg/dL Hemoglobin A1c (0.0-6.0) % 04/17/22 04/18/22 04/18/22 Range/Units 20:48 04:55 04:55 RBC 3.42 L (4.10-5.20) X 10*6/uL Hgb 10.1 L (12.0-15.0) g/dL Hct 32.4 L (37.2-46.3) % MCHC 31.2 L (32.0-37.0) g/dL Eosinophils # 0 L (0.04-0.35) X 10*3/uL POC Glucose (mg/dL) 360 H (75-99) mg/dL Hemoglobin A1c 10.3 H (0.0-6.0) % 04/18/22 Range/Units 06:56 RBC (4.10-5.20) X 10*6/uL Hgb (12.0-15.0) g/dL Hct (37.2-46.3) % MCHC (32.0-37.0) g/dL Eosinophils # (0.04-0.35) X 10*3/uL POC Glucose (mg/dL) 267 H (75-99) mg/dL Hemoglobin A1c (0.0-6.0) % Assessment and Plan Assessment: Postoperative day #1 status post right total hip arthroplasty, lateral approach Plan: Pain control, low-dose [place] for discharge. Discussed [id number] Tylenol use also DVT prophylaxis, patient will resume both aspirin and Plavix at discharge Wound care instructions discussed, postop bandage to be removed tomorrow. We discussed showering instructions along with icing and elevating Activity level and restrictions were discussed with patient, this including posterior hip precautions Medical recommendations Discharge planning: Stable for discharge home today Time with Patient: Less than 30
--- NOTE | 2022-04-18 10:00 | P.DS ---
Providers Date of admission: 04/17/2022 Expected date of discharge: 04/18/22 Attending physician: Leobardo Soto Consults: 04/17/22 09:34 Consult Physician Routine Consulting Provider: Ibrahima Hua Consult Reason/Comments: s/p right total hip arthroplasty (lateral approach) Do you want consulting provider notified?: Yes Primary care physician: Ibrahima Hua MD Hospital Course: Date of admission: 04/17/2022 Date of discharge: 04/18/2022 Admission diagnosis: Status post right total hip arthroplasty, lateral approach Discharge diagnosis: Same Attending physician: Dr. Soto Surgical procedures: Right total hip arthroplasty, lateral approach Brief history: Patient is a 77-year-old female with a history of progressive primary right hip osteoarthritis. At this point patient has failed conservative treatment measures and has opted to proceed with a elective right total hip arthroplasty. Hospital course: Details of patient's surgery can be found in operative report. Patient tolerated the procedure well and was subsequently transported to orthopedic floor. Patient's orthopeidc and medical care was provided daily. Patient had daily laboratory tests performed for evaluation of overall blood counts. Patient had daily physical therapy to include strengthening range of motion as well as education with walker ambulation. Patient was treated with Plavix/aspirin for their postoperative DVT prophylaxis during their inpatient stay. Patient was noted to have a relatively uneventful postoperative course. Patient reported satisfactory pain control with oral pain medications by postoperative day 0. Patient showed satisfactory progress with physical therapy. Patient moved steadily through the program and had no difficulty meeting the goals by postoperative day 1. Given patient's otherwise satisfactory course and having met physical therapy goals, plan is to discharge patient home on postoperative day 1. Discharge condition/disposition: Patient will be discharged home in stable condition. Discharge medications: Instructions are given on resumption of patient's normal daily medications per primary care recommendation, in addition patient will be prescribed [place] 5 mg/325 mg, Colace 100 mg. Discharge instructions: 1. Wound care and infection precautions, keep incision dry and covered while showering, no lotions, creams, moisturizers. No soaking, tubs, pools, hottubs. Do not scrub over the incision. 2. Weight-bear as tolerated with walker / cane until follow-up. Posterior hip precautions, this including no crossing the legs, sleeping on that side, flexion of the hip past 90. 3. Ice and elevate when necessary. Do not exceed 20 minutes per hour with ice pack. 4. Utilize compression sleeve until seen at first follow up appointment. 5. Visiting nursing care. 6. Home physical therapy. 7. Pain meds and anticoagulants per prescription. 8. Pain medication has potential to cause constipation. Increase oral fluid and fiber intake. Contact primary care provider if you have not had a bowel movement within 48 hours after discharge 9. No anti-inflammatory medication until discussed at first post operative visit, this including Motrin, Aleve, Mobic, Diclofenac. 10. Follow up in office at 2 weeks postop with Efraín Clinton PA-C/Jorge Ansari 11. Follow up with your primary care doctor 7-10 days after discharge. 12. Contact [facility] with any questions, . Procedures: Right total hip arthroplasty, lateral approach Patient Condition at Discharge: Good Plan - Discharge Summary Discharge Rx Participant: Yes New Discharge Prescriptions: New Docusate [Colace] 100 mg PO DAILY #21 capsule HYDROcodone/APAP 5-325MG [[place] 5-325] 1 tab PO Q6HR PRN #21 tab PRN Reason: Pain No Action Metoprolol Tartrate [Lopressor] 25 mg PO BID Multivitamins, Thera [Multivitamin (formulary)] 1 tab PO DAILY Clopidogrel [Plavix] 75 mg PO HS Rosuvastatin [Crestor] 20 mg PO HS Levothyroxine Sodium [Levoxyl] 175 mcg PO DAILY Isosorbide Mononitrate ER [Imdur] 30 mg PO DAILY Insulin Aspart [NovoLOG Flexpen] 40 units SQ AC-TID Aspirin [Adult Low Dose Aspirin EC] 81 mg PO DAILY Discharge Medication List Metoprolol Tartrate [Lopressor] 25 mg PO BID 12/07/17 [History] Clopidogrel [Plavix] 75 mg PO HS 02/13/19 [History] Multivitamins, Thera [Multivitamin (formulary)] 1 tab PO DAILY 02/13/19 [History] Rosuvastatin [Crestor] 20 mg PO HS 02/13/19 [History] Levothyroxine Sodium [Levoxyl] 175 mcg PO DAILY 10/25/20 [History] Insulin Aspart [NovoLOG Flexpen] 40 units SQ AC-TID 01/03/22 [History] Isosorbide Mononitrate ER [Imdur] 30 mg PO DAILY 01/03/22 [History] Aspirin [Adult Low Dose Aspirin EC] 81 mg PO DAILY 04/12/22 [History] Docusate [Colace] 100 mg PO DAILY #21 capsule 04/18/22 [Rx] HYDROcodone/APAP 5-325MG [[place] 5-325] 1 tab PO Q6HR PRN #21 tab 04/18/22 [Rx] Follow up Appointment(s)/Referral(s): Jorge Guajardo PAC [PHYSICIAN RIG OPERATOR] - 05/04/22 Ibrahima Hua MD [Primary Care Provider] - 1 Week Ez Marie MD [REFERRING] - 1 Week (Manager Of Security, for diabetes mellitus) Fabby Gaines MD [STAFF PHYSICIAN] - 1 Week (Manager Of Security, for diabetes mellitus) Patient Instructions/Handouts: Total Hip Replacement (DC) Activity/Diet/Wound Care/Special Instructions: Orthopedic Discharge Instructions: 1. Wound care and infection precautions, keep incision dry and covered while showering, no lotions, creams, moisturizers. No soaking, pools, hot tubs. Do not scrub over incision. 2. Weight-bear as tolerated with walker / cane until follow-up. 3. Ice and elevate when necessary. Do not exceed 20 minutes per hour with ice pack. 4. Utilize compression sleeve until seen at first follow up appointment. 5. Pain meds and anticoagulants per prescription. 6. Pain medication has potential to cause constipation. Increase oral fluid and fiber intake. Contact primary care provider if you have not had a bowel movement within 48 hours after discharge. 7. No anti-inflammatory medication until discussed at first post operative visit, this including Motrin, Aleve, Mobic, Diclofenac. 8. Follow up in office at 2 weeks postop with Efraín Clinton PA-C/Jorge Guajardo PA-C 9. Follow up with your primary care doctor 7-10 days after discharge. 10. Contact [facility] with any questions, . Discharge Disposition: HOME SELF-CARE
[2022-04-18] MEDS: HYDROcodone/APAP 7.5-325MG 1 EACH TAB PO PRN (11:20)
--- NOTE | 2022-04-18 23:28 | P.PN ---
Subjective This is a pleasant 77 years old female with past medical history of severe osteoarthritis including of the right hip, Atrial Fibrillation not on anticoagulation, Diabetes Mellitus, Hearing Disorder / Deafness, Hyperlipidemia, Hypertension, Sleep Apnea/CPAP/BIPAP hypothyroidism Was admitted for severe osteoarthritis of the right hip and she underwent total hip arthroplasty. Today is postoperative day #1, she was sitting comfortable in bed and pleasant. She denies any specific symptoms. No chest pain, no vomiting or diarrhea. No change in urine or bowel habits. No fever. Pressure was low normal like 101/50. Her metoprolol 25 mg on hold. She is continued on aspirin and Plavix We will add normal saline 100 mL per hour Patient takes NovoLog 40 units with meals with no long-acting at home. She says she has Lantus at home but she does not use it, patient was counseled about insulin management and she agrees to start long-acting insulin and Levemir. We will start 15 units of Levemir at bedtime with 15 units of with meals of NovoLog. 04/18/1922 This morning patient was stressed. Already when I worked to home with daughter at bedside. She was pleasant, fully awake and oriented, asymptomatic. No chest pain or dyspnea. No abdominal pain. No diarrhea or dysuria. No headache or weakness or numbness. No vomiting. Previous Patient is hemodynamically stable. Hemoglobin 10.1, sugar is improved below 300 at 267, her hemoglobin A1c is 10.3. She was started yesterday on Levemir 15 units and today she was counseled as well and she agrees to continue with long-acting insulin. While increased her short-acting insulin with meals into 20 units. Patient states she has a glucometer and agrees to keep with her and her sugar and blood pressure as an outpatient. Patient denies any other symptoms. Blood pressure improved and his blood pressure medication, resumed. Patient continue with aspirin and Plavix and importance of adherence to therapy is explained to her. Objective - Vital Signs Vital signs: Vital Signs Temp 98.6 F 04/18/22 07:32 Pulse 90 04/18/22 07:32 Resp 17 04/18/22 07:32 BP 139/64 04/18/22 07:32 Pulse Ox 90 L 04/18/22 07:32 FiO2 Intake & Output 04/18/22 04/18/22 04/19/22 06:59 18:59 06:59 Other: Voiding Method Toilet - Exam GENERAL: The patient is alert and oriented x3, not in any acute distress. Morbidly obese HEENT: Pupils are round and equally reacting to light. EOMI. No scleral icterus. No conjunctival pallor. Normocephalic, atraumatic. No pharyngeal erythema. No thyromegaly. CARDIOVASCULAR: S1 and S2 present. No murmurs, rubs, or gallops. PULMONARY: Chest is clear to auscultation, no wheezing or crackles. ABDOMEN: Soft, nontender, nondistended, normoactive bowel sounds. No palpable organomegaly. MUSCULOSKELETAL: No joint swelling or deformity. -EXTREMITIES: No cyanosis, clubbing, or pedal edema. Right hip surgical wound is clean with dressing in place, rest of exam is deferred to surgery team NEUROLOGICAL: Gross neurological examination did not reveal any focal deficits. SKIN: No rashes. no petechiae. - Labs CBC & Chem 7: 04/18/22 04:55 Labs: Abnormal Lab Results - Last 24 Hours (Table) 04/18/22 04/18/22 04/18/22 Range/Units 04:55 04:55 06:56 RBC 3.42 L (4.10-5.20) X 10*6/uL Hgb 10.1 L (12.0-15.0) g/dL Hct 32.4 L (37.2-46.3) % MCHC 31.2 L (32.0-37.0) g/dL Eosinophils # 0 L (0.04-0.35) X 10*3/uL POC Glucose (mg/dL) 267 H (75-99) mg/dL Hemoglobin A1c 10.3 H (0.0-6.0) % Assessment and Plan Assessment: Severe osteoarthritis status post right ОЛЕГ Diabetes mellitus with hyperglycemia Hypertension Hyperlipidemia Chronic atrial fibrillation not on anticoagulation Obesity History of sleep apnea Plan: This is a pleasant 77 years old female with right ОЛЕГ. We'll change her insulin regimen and Levemir 20 units at bedtime and NovoLog 15 units with meals, follow-up as an outpatient. Patient agrees with this changes since that she will follow up with her PCP. Also patient was referred to mosaic worker as an outpatient Dr. Gaines and Dr. phelps, and she agrees to f/u with them resume metoprolol Labs and medication were reviewed.. Continue same treatment. Continue with symptomatic treatment. Resume home medication. Monitor lytes and vitals. DVT and GI prophylaxis. Further recommendations as per clinical course of the patient DVT prophylaxis: Deferred to surgery primary team GI Prophylaxis: Pepcid We recommend patient follow up with PCP in one week after discharge as well as with mosaic worker Dr. Gaines or Dr. phelps in one week after discharge Thank you for consulting us
== END 2022-04-18 11:54 | disposition home or self-care (01) ==
LOC: OR 06:10 → 4SSUR 09:53 → OR 04-18 11:54
PROVIDERS: ATTEND Orthopaedic Surgery
DX: M16.11 Unilateral primary osteoarthritis, right hip (principal); E03.9 Hypothyroidism, unspecified; E11.36 Type 2 diabetes mellitus with diabetic cataract; E11.65 Type 2 diabetes mellitus with hyperglycemia; E66.9 Obesity, unspecified; E78.5 Hyperlipidemia, unspecified; G47.30 Sleep apnea, unspecified; H91.90 Unspecified hearing loss, unspecified ear; I10 Essential (primary) hypertension; I48.20 Chronic atrial fibrillation, unspecified; Z79.02 Long term (current) use of antithrombotics/antiplatelets; Z79.4 Long term (current) use of insulin; Z79.82 Long term (current) use of aspirin; Z79.899 Other long term (current) drug therapy; Z80.3 Family history of malignant neoplasm of breast; Z82.49 Family history of ischemic heart disease and other diseases of the circulatory system; Z88.1 Allergy status to other antibiotic agents; Z95.0 Presence of cardiac pacemaker; Z95.2 Presence of prosthetic heart valve
CPT/HCPCS: 97161; 97535; 97165; 86900; 86901; 85025; 86850; 88300; 83036; 73501; C1776; J2250; J0330; J1100; J2710; J0690 ×3; J2405; J3010; J1170 ×2; J2370; J2704

== ENCOUNTER 2024-10-08 16:10 | Inpatient (IN) | payer MEDICARE ==
--- NOTE | 2024-10-08 17:00 | ED ---
Weakness HPI - General Chief complaint: Weakness Stated complaint: Increased weakness Time Seen by Provider: 10/08/24 16:22 Source: EMS, RN notes reviewed, old records reviewed Mode of arrival: EMS Limitations: no limitations - History of Present Illness Initial comments: This is a 79-year-old female to the ER, this patient presents today for evaluation of severe weakness and severe shortness of breath f patient's daughter called EMS secondary to weakness and shortness of breath MD Complaint: generalized weakness -: days(s) Location: generalized Severity: severe Severity scale (1-10): 9 Consistency: constant Improves with: none Worsens with: none Context: recent illness, history of similar Associated Symptoms: chest pain - Related Data Home Medications Medication Instructions Recorded Confirmed Levothyroxine Sodium [Levoxyl] 175 mcg PO DAILY 10/25/20 10/08/24 Isosorbide Mononitrate ER [Imdur] 30 mg PO DAILY 01/03/22 10/08/24 Apixaban [Eliquis] 5 mg PO BID 10/08/24 10/08/24 FLUoxetine HCL [PROzac] 10 mg PO DAILY 10/08/24 10/08/24 Furosemide [Lasix] 20 mg PO BID 10/08/24 10/08/24 Insulin Aspart [NovoLOG Flexpen] 40 units SQ AC-TID 10/08/24 10/08/24 Insulin Glargine,Hum.rec.anlog 20 - 30 units SQ HS 10/08/24 10/08/24 [Lantus Solostar Pen] Metoprolol Succinate (ER) [Toprol 50 mg PO DAILY 10/08/24 10/08/24 Xl] Rosuvastatin Calcium [Crestor] 40 mg PO HS 10/08/24 10/08/24 Allergies Allergy/AdvReac Type Severity Reaction Status Date / Time nitrofurantoin Allergy Rash/Hives Verified 10/08/24 19:32 macrocrystalline [From Macrodantin] phenazopyridine HCl Allergy Rash/Hives Verified 10/08/24 19:32 [From Pyridium] Review of Systems ROS Statement: Those systems with pertinent positive or pertinent negative responses have been documented in the HPI. ROS Other: All systems not noted in ROS Statement are negative. 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 HAD THYROID AND PARATHYROID REMOVAL. TOTAL LEFT KNEE REPLACEMENT, CATARACT RT EYE, CATARACT LEFT EYE SURGERY ,COLONOSCOPY, TVAR- 11/2018 , Aortic valve replacement 10/2018 Past Anesthesia/Blood Transfusion Reactions: No Reported Reaction Type of Cardiac Device: Permanent Pacemaker Device Placement Date:: PACEMAKER NOV 2017. Past Psychological History: No Psychological Hx Reported Smoking Status: Never smoker Past Alcohol Use History: None Reported Past Drug Use History: None Reported - Past Family History Daughter(s) Family Medical History: Deep Vein Thrombosis (DVT) Sister(s) Family Medical History: Cancer Additional Family Medical History / Comment(s): BREAST CANCER General Exam Limitations: no limitations General appearance: alert, in no apparent distress Head exam: Present: atraumatic, normocephalic, normal inspection Eye exam: Present: normal appearance, PERRL, EOMI. Absent: scleral icterus, conjunctival injection, periorbital swelling ENT exam: Present: normal exam, mucous membranes moist Neck exam: Present: normal inspection. Absent: tenderness, meningismus, lymphadenopathy Respiratory exam: Present: normal lung sounds bilaterally. Absent: respiratory distress, wheezes, rales, rhonchi, stridor Cardiovascular Exam: Present: regular rate, normal rhythm, normal heart sounds. Absent: systolic murmur, diastolic murmur, rubs, gallop, clicks GI/Abdominal exam: Present: soft, normal bowel sounds. Absent: distended, tenderness, guarding, rebound, rigid Extremities exam: Present: normal inspection, full ROM, normal capillary refill. Absent: tenderness, pedal edema, joint swelling, calf tenderness Back exam: Present: normal inspection Neurological exam: Present: alert, oriented X3, CN II-XII intact Psychiatric exam: Present: normal affect, normal mood Skin exam: Present: warm, dry, intact, normal color. Absent: rash Course Vital Signs 10/08/24 10/08/24 10/08/24 16:14 16:23 16:28 Temperature 97.9 F Pulse Rate 65 71 Respiratory 16 22 18 Rate Blood Pressure 139/101 133/75 O2 Sat by Pulse 100 100 Oximetry 10/08/24 10/08/24 10/08/24 17:39 17:45 18:35 Temperature Pulse Rate 67 67 64 Respiratory 18 18 22 Rate Blood Pressure 92/59 125/45 120/60 O2 Sat by Pulse 100 100 99 Oximetry 10/08/24 10/08/24 10/09/24 19:37 23:54 05:48 Temperature 97.4 F L 97.6 F Pulse Rate 62 64 65 Respiratory 20 20 19 Rate Blood Pressure 106/55 122/70 116/60 O2 Sat by Pulse 100 100 99 Oximetry 10/09/24 10/09/24 10/09/24 08:51 10:36 10:46 Temperature 97.6 F Pulse Rate 100 64 60 Respiratory 18 218 H 18 Rate Blood Pressure 116/60 83/40 91/79 O2 Sat by Pulse 67 L 98 100 Oximetry 10/09/24 10/09/24 10/09/24 11:06 11:34 12:11 Temperature 97.8 F Pulse Rate 60 70 62 Respiratory 18 18 18 Rate Blood Pressure 102/50 102/47 112/60 O2 Sat by Pulse 100 99 97 Oximetry 10/09/24 10/09/24 10/09/24 13:05 14:42 16:43 Temperature 97.5 F L 98.6 F Pulse Rate 61 61 62 Respiratory 18 18 18 Rate Blood Pressure 112/50 102/50 92/47 O2 Sat by Pulse 100 100 100 Oximetry 10/09/24 10/09/24 10/09/24 16:53 17:13 18:14 Temperature 98.3 F Pulse Rate 61 60 66 Respiratory 18 18 18 Rate Blood Pressure 97/53 115/52 107/40 O2 Sat by Pulse 100 100 100 Oximetry 10/09/24 10/09/24 10/09/24 18:51 20:21 20:42 Temperature Pulse Rate 64 63 62 Respiratory 18 18 16 Rate Blood Pressure 111/39 95/62 100/61 O2 Sat by Pulse 100 100 Oximetry - Reevaluation(s) Reevaluation #1: 10/08/24 18:03 Medical records reviewed Reevaluation #2: 10/08/24 18:03 Patient symptoms improved unchanged Reevaluation #3: 10/08/24 18:03 Patient informed of results questions answered Reevaluation #4: Was pt. sent in by a medical professional or institution (, [facility], [employer] AND EXHIBIT DESIGNER, urgent care, hospital, or care home...) When possible be specific @ -no Did you speak to anyone other than the patient for history (EMS, parent, family, police, friend...)? What history was obtained from this source @ -no Did you review nursing and triage notes (agree or disagree)? Why? @ -agree Are old charts reviewed (outside hosp., previous admission, EMS record, old EKG, old radiological studies, urgent care reports/EKG's, care home records)? Report findings @ -yes Differential Diagnosis (chest pain, altered mental status, abdominal pain women, abdominal pain men, vaginal bleeding, weakness, fever, dyspnea, syncope, headache, dizziness, GI bleed, back pain, seizure, CVA, palpatations, mental health, musculoskeletal)? @ -prior EKG interpreted by me (3pts min.). @ -yes X-rays interpreted by me (1pt min.). @ -Yes negative for acute disease CT interpreted by me (1pt min.). @ -no U/S interpreted by me (1pt. min.). @ -no What testing was considered but not performed or refused? (CT, X-rays, U/S, labs)? Why? @ -none What meds were considered but not given or refused? Why? @ -none Did you discuss the management of the patient with other professionals (professionals i.e. [facility] Chu, [employer] AND EXHIBIT DESIGNER, lab, RT, psych nurse, home health care social worker, cardiology physician assistant, teacher, restoration officer, case packer and sealer)? Give summary @ -no Was smoking cessation discussed for >3mins.? @ -no Was critical care preformed (if so, how long)? @ -no Were there social determinants of health that impacted care today? How? (Homelessness, low income, unemployed, alcoholism, drug addiction, transportati on, low edu. Level, literacy, decrease access to med. care, senior care, rehab)? @ -none Was there de-escalation of care discussed even if they declined (Discuss DNR or withdrawal of care, Hospice)? DNR status @ -no What co-morbidities impacted this encounter? (DM, HTN, Smoking, COPD, CAD, Cancer, CVA, ARF, Chemo, Hep., AIDS, mental health diagnosis, sleep apnea, morbid obesity)? @ -none Was patient admitted / discharged? Hospital course, mention meds given and route, prescriptions, significant lab abnormalities, going to OR and other pertinent info. @ - 79 female to ER for evaluation of severe and significant weakness with altered mental status and abnormal lab testing acute kidney injury patient will be admitted for nephrology evaluation Admitted Undiagnosed new problem with uncertain prognosis? @ -no Drug Therapy requiring intensive monitoring for toxicity (Heparin, Nitro, Insulin, Cardizem)? @ -no Were any procedures done? @ -no Diagnosis/symptom? @ -Weakness altered mental status acute kidney injury Acute, or Chronic, or Acute on Chronic? @ -Acute Uncomplicated (without systemic symptoms) or Complicated (systemic symptoms)? @ -Complicated Side effects of treatment? @ -no Exacerbation, Progression, or Severe Exacerbation? @ -exacerbation Poses a threat to life or bodily function? How? (Chest pain, [place], [place], pneumonia, PE, COPD, DKA, ARF, appy, cholecystitis, CVA, Diverticulitis, Homicidal, Suicidal, threat to staff... and all critical care pts) @ -yes extremes of age Reevaluation #5: Differential Dyspnea: Coronary syndrome, arrhythmia, tamponade, asthma, COPD, pulmonary embolism, pneumonia, pneumothorax, pulmonary effusion, anaphylaxis, diabetic ketoacidosis, flailed chest, pulmonary contusion, diaphragmatic rupture, anemia, neuromuscular, this is not meant to be an all-inclusive list. - Consultations Consultation #1: Spoke with admitting physicians who agreed admit this patient EKG Findings - EKG Comments: EKG Findings:: EKG is paced 64 QRS 53 QTc 396 - EKG Results: EKG: interpreted by [facility] Medical Decision Making - Medical Decision Making 79 female to ER for evaluation of weakness shortness of breath with severe anemia - Lab Data Result diagrams: 10/16/24 06:04 10/16/24 06:04 Lab Results 10/08/24 10/08/24 10/08/24 Range/Units 17:06 17:06 17:06 WBC 10.6 (3.8-10.6) k/uL RBC 2.69 L (3.80-5.40) m/uL Hgb 6.2 L* (11.4-16.0) gm/dL Hct 21.6 L (34.0-46.0) % MCV 80.2 (80.0-100.0) fL MCH 23.1 L (25.0-35.0) pg MCHC 28.8 L (31.0-37.0) g/dL RDW 18.8 H (11.5-15.5) % Plt Count 204 (150-450) k/uL MPV 7.3 Neutrophils % 83 % Lymphocytes % 10 % Monocytes % 4 % Eosinophils % 2 % Basophils % 0 % Neutrophils # 8.8 H (1.3-7.7) k/uL Lymphocytes # 1.0 (1.0-4.8) k/uL Monocytes # 0.5 (0-1.0) k/uL Eosinophils # 0.2 (0-0.7) k/uL Basophils # 0.0 (0-0.2) k/uL Manual Slide Review Performed Polychromasia Present Hypochromasia Marked Poikilocytosis Slight Anisocytosis Slight Microcytosis Slight Target Cells Present Tear Drop Cells Present PT 11.0 (10.0-12.5) sec INR 1.0 (<1.2) APTT 17.0 L (22.0-30.0) sec Sodium 133 L (137-145) mmol/L Potassium 4.2 (3.5-5.1) mmol/L Chloride 99 (98-107) mmol/L Carbon Dioxide 28 (22-30) mmol/L Anion Gap 6 mmol/L BUN 36 H (7-17) mg/dL Creatinine 0.94 (0.52-1.04) mg/dL Est GFR (CKD-EPI)AfAm 67 (>60 ml/min/1.73 sqM) Est GFR (CKD-EPI)NonAf 58 (>60 ml/min/1.73 sqM) Glucose 139 H (74-99) mg/dL Lactic Ac Sepsis Rflx Plasma Lactic Acid Jez (0.7-2.0) mmol/L Calcium 8.2 L (8.4-10.2) mg/dL Phosphorus 3.6 (2.5-4.5) mg/dL Magnesium 2.3 (1.6-2.3) mg/dL Total Bilirubin 0.7 (0.2-1.3) mg/dL AST 27 (14-36) U/L ALT 16 (4-34) U/L Alkaline Phosphatase 78 (38-126) U/L Troponin I (0.000-0.034) ng/mL NT-Pro-B Natriuret Pep 2830 pg/mL Total Protein 6.4 (6.3-8.2) g/dL Albumin 3.5 (3.5-5.0) g/dL Urine Color Urine Appearance (Clear) Urine pH (5.0-8.0) Ur Specific [place] (1.001-1.035) Urine Protein (Negative) Urine Glucose (UA) (Negative) Urine Ketones (Negative) Urine Blood (Negative) Urine Nitrite (Negative) Urine Bilirubin (Negative) Urine Urobilinogen (<2.0) mg/dL Ur Leukocyte Esterase (Negative) Urine RBC (0-5) /hpf Urine WBC (0-5) /hpf Ur Squamous Epith Cells (0-4) /hpf Urine Bacteria (None) /hpf Hyaline Casts (0-2) /lpf 10/08/24 10/08/24 10/08/24 Range/Units 17:06 17:06 17:09 WBC (3.8-10.6) k/uL RBC (3.80-5.40) m/uL Hgb (11.4-16.0) gm/dL Hct (34.0-46.0) % MCV (80.0-100.0) fL MCH (25.0-35.0) pg MCHC (31.0-37.0) g/dL RDW (11.5-15.5) % Plt Count (150-450) k/uL MPV Neutrophils % % Lymphocytes % % Monocytes % % Eosinophils % % Basophils % % Neutrophils # (1.3-7.7) k/uL Lymphocytes # (1.0-4.8) k/uL Monocytes # (0-1.0) k/uL Eosinophils # (0-0.7) k/uL Basophils # (0-0.2) k/uL Manual Slide Review Polychromasia Hypochromasia Poikilocytosis Anisocytosis Microcytosis Target Cells Tear Drop Cells PT (10.0-12.5) sec INR (<1.2) APTT (22.0-30.0) sec Sodium (137-145) mmol/L Potassium (3.5-5.1) mmol/L Chloride (98-107) mmol/L Carbon Dioxide (22-30) mmol/L Anion Gap mmol/L BUN (7-17) mg/dL Creatinine (0.52-1.04) mg/dL Est GFR (CKD-EPI)AfAm (>60 ml/min/1.73 sqM) Est GFR (CKD-EPI)NonAf (>60 ml/min/1.73 sqM) Glucose (74-99) mg/dL Lactic Ac Sepsis Rflx Plasma Lactic Acid Jez 2.5 H* (0.7-2.0) mmol/L Calcium (8.4-10.2) mg/dL Phosphorus (2.5-4.5) mg/dL Magnesium (1.6-2.3) mg/dL Total Bilirubin (0.2-1.3) mg/dL AST (14-36) U/L ALT (4-34) U/L Alkaline Phosphatase (38-126) U/L Troponin I 0.065 H* (0.000-0.034) ng/mL NT-Pro-B Natriuret Pep pg/mL Total Protein (6.3-8.2) g/dL Albumin (3.5-5.0) g/dL Urine Color Colorless Urine Appearance Cloudy H (Clear) Urine pH 6.0 (5.0-8.0) Ur Specific [place] 1.009 (1.001-1.035) Urine Protein Negative (Negative) Urine Glucose (UA) Negative (Negative) Urine Ketones Negative (Negative) Urine Blood Large H (Negative) Urine Nitrite Negative (Negative) Urine Bilirubin Negative (Negative) Urine Urobilinogen <2.0 (<2.0) mg/dL Ur Leukocyte Esterase Large H (Negative) Urine RBC 98 H (0-5) /hpf Urine WBC 103 H (0-5) /hpf Ur Squamous Epith Cells 1 (0-4) /hpf Urine Bacteria Many H (None) /hpf Hyaline Casts 3 H (0-2) /lpf 10/08/24 Range/Units 18:35 WBC (3.8-10.6) k/uL RBC (3.80-5.40) m/uL Hgb (11.4-16.0) gm/dL Hct (34.0-46.0) % MCV (80.0-100.0) fL MCH (25.0-35.0) pg MCHC (31.0-37.0) g/dL RDW (11.5-15.5) % Plt Count (150-450) k/uL MPV Neutrophils % % Lymphocytes % % Monocytes % % Eosinophils % % Basophils % % Neutrophils # (1.3-7.7) k/uL Lymphocytes # (1.0-4.8) k/uL Monocytes # (0-1.0) k/uL Eosinophils # (0-0.7) k/uL Basophils # (0-0.2) k/uL Manual Slide Review Polychromasia Hypochromasia Poikilocytosis Anisocytosis Microcytosis Target Cells Tear Drop Cells PT (10.0-12.5) sec INR (<1.2) APTT (22.0-30.0) sec Sodium (137-145) mmol/L Potassium (3.5-5.1) mmol/L Chloride (98-107) mmol/L Carbon Dioxide (22-30) mmol/L Anion Gap mmol/L BUN (7-17) mg/dL Creatinine (0.52-1.04) mg/dL Est GFR (CKD-EPI)AfAm (>60 ml/min/1.73 sqM) Est GFR (CKD-EPI)NonAf (>60 ml/min/1.73 sqM) Glucose (74-99) mg/dL Lactic Ac Sepsis Rflx Y Plasma Lactic Acid Jez (0.7-2.0) mmol/L Calcium (8.4-10.2) mg/dL Phosphorus (2.5-4.5) mg/dL Magnesium (1.6-2.3) mg/dL Total Bilirubin (0.2-1.3) mg/dL AST (14-36) U/L ALT (4-34) U/L Alkaline Phosphatase (38-126) U/L Troponin I (0.000-0.034) ng/mL NT-Pro-B Natriuret Pep pg/mL Total Protein (6.3-8.2) g/dL Albumin (3.5-5.0) g/dL Urine Color Urine Appearance (Clear) Urine pH (5.0-8.0) Ur Specific [place] (1.001-1.035) Urine Protein (Negative) Urine Glucose (UA) (Negative) Urine Ketones (Negative) Urine Blood (Negative) Urine Nitrite (Negative) Urine Bilirubin (Negative) Urine Urobilinogen (<2.0) mg/dL Ur Leukocyte Esterase (Negative) Urine RBC (0-5) /hpf Urine WBC (0-5) /hpf Ur Squamous Epith Cells (0-4) /hpf Urine Bacteria (None) /hpf Hyaline Casts (0-2) /lpf - EKG Data -: EKG Interpreted by [facility] - Radiology Data Radiology results: report reviewed (Chest x-ray is negative for acute disease), image reviewed Critical Care Time Critical Care Time: Yes Total Critical Care Time: 31 Disposition Clinical Impression: Weakness, Palpitations, Anemia, Pulmonary edema, CHF (congestive heart failure) Disposition: ADMITTED IP TO THIS [facility] Condition: Serious Is patient prescribed a controlled substance at d/c from ED?: No Time of Disposition: 18:00
[2024-10-08 17:38] LABS: Anisocytosis Slight; Basophils % (A) 0 %; Eosinophils # (A) 0.2 k/uL (0-0.7); Eosinophils % (A) 2 %; HCT 21.6 % (34.0-46.0); Hypochromasia Marked; Lymphocytes % (A) 10 %; MCH 23.1 pg (25.0-35.0); MCHC 28.8 g/dL (31.0-37.0); MCV 80.2 fL (80.0-100.0); Mean Platelet Volume 7.3; Microcytosis Slight; Monocytes # (A) 0.5 k/uL (0-1.0); Monocytes % (A) 4 %; Neutrophils # (A) 8.8 k/uL (1.3-7.7); Neutrophils % (A) 83 %; Platelet Count 204 k/uL (150-450); Poikilocytosis Slight; RBC 2.69 m/uL (3.80-5.40); RDW 18.8 % (11.5-15.5); WBC 10.6 k/uL (3.8-10.6)
--- NOTE | 2024-10-08 17:46 | XR ---
EXAMINATION TYPE: XR chest 1V portable DATE OF EXAM: 10/08/2024 5:35 PM COMPARISON: Chest radiographs from 02/13/2019 CLINICAL INDICATION: Female, 79 years old with history of sob; TECHNIQUE: XR chest 1V portable Frontal view of the chest. FINDINGS: Lungs/Pleura: There is no evidence of pleural effusion, focal consolidation, or pneumothorax. Pulmonary vascularity: Unremarkable. Heart/mediastinum: Cardiomediastinal silhouette is enlarged. Two lead cardiac conduction device overl gabriella the left hemithorax with lead tips projecting over the right ventricle and right atrium. Musculoskeletal: No acute osseous pathology. IMPRESSION: Cardiomegaly, pulmonary vascular congestion and bilateral pleural effusions. Correlate with BNP for c ongestive heart failure. [facility], , 10/08/2024 5:44 PM
[2024-10-08 17:51] LABS: HGB 6.2 gm/dL (11.4-16.0)
[2024-10-08 18:07] LABS: ALT 16 U/L (4-34); AST 27 U/L (14-36); African American GFR (CKD) 67 (>60 ml/min/1.73 sqM); Albumin 3.5 g/dL (3.5-5.0); Alkaline Phosphatase 78 U/L (38-126); Anion Gap 6 mmol/L; Blood Urea Nitrogen 36 mg/dL (7-17); Calcium 8.2 mg/dL (8.4-10.2); Carbon Dioxide 28 mmol/L (22-30); Chloride 99 mmol/L (98-107); Glucose 139 mg/dL (74-99); Magnesium 2.3 mg/dL (1.6-2.3); Non-African American GFR(CKD) 58 (>60 ml/min/1.73 sqM); Phosphorus 3.6 mg/dL (2.5-4.5); Potassium 4.2 mmol/L (3.5-5.1); Sodium 133 mmol/L (137-145); Total Bilirubin 0.7 mg/dL (0.2-1.3); Total Protein 6.4 g/dL (6.3-8.2)
[2024-10-08 18:14] LABS: NT-Pro-B-Type Natriuretic Pept 2830 pg/mL
[2024-10-08 18:15] LABS: Polychromasia Present; Target Cells Present
[2024-10-08 18:16] LABS: Tear Drop Cells Present
[2024-10-08] MEDS ORDERED: NALOXONE 0.4 MG/ML 1 ML VIAL IV PRN (19:48)
[2024-10-08] MEDS: SODIUM CHLORIDE 0.9% 1,000 ML IV SCH (22:12)
[2024-10-08] MEDS: PANTOPRAZOLE 40 MG/10 ML VIAL IV SCH (22:14)
[2024-10-08] MEDS ORDERED: DEXTROSE 50% SYRINGE 50 ML IVP PRN ×2 (22:31)
[2024-10-08 23:01] LABS: Glucose,Whole Blood 181 mg/dL (70-110)
[2024-10-09] MEDS: LEVOTHYROXINE 88 MCG TAB PO SCH (05:45)
[2024-10-09 06:51] LABS: Anisocytosis Slight; Basophils % (A) 0 %; Eosinophils # (A) 0.1 k/uL (0-0.7); Eosinophils % (A) 2 %; Hypochromasia Marked; Lymphocytes # (A) 0.7 k/uL (1.0-4.8); Lymphocytes % (A) 11 %; MCH 23.3 pg (25.0-35.0); MCHC 28.7 g/dL (31.0-37.0); MCV 81.4 fL (80.0-100.0); Mean Platelet Volume 8.1; Microcytosis Slight; Monocytes # (A) 0.4 k/uL (0-1.0); Monocytes % (A) 6 %; Neutrophils # (A) 5.3 k/uL (1.3-7.7); Neutrophils % (A) 80 %; Platelet Count 172 k/uL (150-450); Poikilocytosis Slight; RBC 2.36 m/uL (3.80-5.40); RDW 18.9 % (11.5-15.5); WBC 6.6 k/uL (3.8-10.6)
[2024-10-09 07:04] LABS: ALT 15 U/L (4-34); AST 25 U/L (14-36); African American GFR (CKD) 70 (>60 ml/min/1.73 sqM); Albumin 3.1 g/dL (3.5-5.0); Alkaline Phosphatase 70 U/L (38-126); Anion Gap 3 mmol/L; Blood Urea Nitrogen 32 mg/dL (7-17); Calcium 7.9 mg/dL (8.4-10.2); Carbon Dioxide 33 mmol/L (22-30); Chloride 98 mmol/L (98-107); Glucose 129 mg/dL (74-99); Magnesium 2.3 mg/dL (1.6-2.3); Non-African American GFR(CKD) 61 (>60 ml/min/1.73 sqM); Phosphorus 3.5 mg/dL (2.5-4.5); Potassium 4.4 mmol/L (3.5-5.1); Sodium 134 mmol/L (137-145); Total Bilirubin 0.6 mg/dL (0.2-1.3); Total Protein 5.7 g/dL (6.3-8.2)
[2024-10-09 07:06] LABS: HGB 5.5 gm/dL (11.4-16.0)
[2024-10-09 07:07] LABS: HCT 19.2 % (34.0-46.0)
[2024-10-09] MEDS ORDERED: INSULIN ASPART (NovoLOG) 100 UNIT/ML VIAL SQ SCH (07:30)
[2024-10-09 09:03] LABS: Glucose,Whole Blood 135 mg/dL (70-110)
[2024-10-09] MEDS: INSULIN ASPART (NovoLOG) 100 UNIT/ML VIAL SQ SCH (09:07)
--- NOTE | 2024-10-09 09:49 | P.CONS ---
History of Present Illness - Reason for Consult Consult date: 10/09/24 Anemia Requesting physician: Geovany Hutchinson - Chief Complaint Shortness of breath and swelling of lower extremities - History of Present Illness This is a pleasant 79-year-old female who presented to the emergency department with shortness of breath and lower extremity swelling as well as states swelling all over. She has a past medical history of coronary artery disease, atrial fibrillation, hyperlipidemia, osteoarthritis, sleep apnea with BiPAP, heart valve disease status post replacement May 2024, and thyroid disorder. She reports she last took her Eliquis 2 or 3 days ago. Denies any regular NSAID use. Denies any abdominal pain, nausea or vomiting. States she has been having dark stool for the last couple weeks. Initial hemoglobin on admission was 6.2 with a drop today to 5.5. Blood has been ordered however currently has not received yet. She reports last colonoscopy about 15 years ago. No history of upper endoscopy or peptic ulcer disease. Today's labs WBC 6.6 hemoglobin 5.5 hematocrit 19.2 INR was 1.0 sodium 134 potassium 4.4 BUN 32 creatinine 0.9 total bilirubin 0.6 AST 25 ALT 15 alkaline phosphatase 70 Review of Systems REVIEW OF SYSTEMS: CARDIOPULMONARY: No chest pain, reports shortness of breath, weakness and lower extremity swelling. Gastrointestinal: No abdominal pain. No nausea or vomiting. No hematemesis, coffee-ground emesis. No rectal bleeding, reports dark stools. GENITOURINARY: No dysuria or hematuria. MUSCULOSKELETAL: Reports normal range of motion., Joint pain. SKIN: No rashes. No jaundice. ENDOCRINE: No chills, fevers. No excessive weight gain or loss. No polydipsia or polyuria. PSYCHIATRIC: Unremarkable. NEUROLOGY: No change in mental status. Denies dizziness, headache. ENT: Vision unremarkable. CONSTITUTIONAL: No recent weight loss. No fever, chills, night sweats. Increased weakness. 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 HAD THYROID AND PARATHYROID REMOVAL. TOTAL LEFT KNEE REPLACEMENT, CATARACT RT EYE, CATARACT LEFT EYE SURGERY ,COLONOSCOPY, TVAR- 11/2018 , Aortic valve replacement 10/2018 Past Anesthesia/Blood Transfusion Reactions: No Reported Reaction Type of Cardiac Device: Permanent Pacemaker Device Placement Date:: PACEMAKER NOV 2017. Past Psychological History: No Psychological Hx Reported Smoking Status: Never smoker Past Alcohol Use History: None Reported Past Drug Use History: None Reported - Past Family History Daughter(s) Family Medical History: Deep Vein Thrombosis (DVT) Sister(s) Family Medical History: Cancer Additional Family Medical History / Comment(s): BREAST CANCER Medications and Allergies Home Medications Medication Instructions Recorded Confirmed Type Levothyroxine Sodium [Levoxyl] 175 mcg PO DAILY 10/25/20 10/08/24 History Isosorbide Mononitrate ER [Imdur] 30 mg PO DAILY 01/03/22 10/08/24 History Apixaban [Eliquis] 5 mg PO BID 10/08/24 10/08/24 History FLUoxetine HCL [PROzac] 10 mg PO DAILY 10/08/24 10/08/24 History Furosemide [Lasix] 20 mg PO BID 10/08/24 10/08/24 History Insulin Aspart [NovoLOG Flexpen] 40 units SQ AC-TID 10/08/24 10/08/24 History Insulin Glargine,Hum.rec.anlog 20 - 30 units SQ HS 10/08/24 10/08/24 History [Lantus Solostar Pen] Metoprolol Succinate (ER) [Toprol 50 mg PO DAILY 10/08/24 10/08/24 History Xl] Rosuvastatin Calcium [Crestor] 40 mg PO HS 10/08/24 10/08/24 History Allergies Allergy/AdvReac Type Severity Reaction Status Date / Time nitrofurantoin Allergy Rash/Hives Verified 10/08/24 19:32 macrocrystalline [From Macrodantin] phenazopyridine HCl Allergy Rash/Hives Verified 10/08/24 19:32 [From Pyridium] Physical Exam Vitals: Vital Signs Temp Pulse Resp BP Pulse Ox 10/09/24 05:48 97.6 F 65 19 116/60 99 10/08/24 23:54 64 20 122/70 100 10/08/24 19:37 97.4 F L 62 20 106/55 100 10/08/24 18:35 64 22 120/60 99 10/08/24 17:45 67 18 125/45 100 10/08/24 17:39 67 18 92/59 100 10/08/24 16:28 71 18 133/75 100 10/08/24 16:23 22 10/08/24 16:14 97.9 F 65 16 139/101 100 Intake and Output 10/08/24 10/09/24 10/09/24 22:59 06:59 14:59 Other: Weight 117.934 kg General appearance: The patient is alert, oriented, appears in no acute distress. Morbidly obese. HET: Head is normocephalic and atraumatic. Conjunctiva pink. Sclera anicteric. Neck: Supple without lymphadenopathy. Trachea midline. Heart: Regular. Lungs: Equal expansion, normal respiratory effort. Abdomen: Soft, nontender, nondistended. Morbidly obese. Skin: No rashes. No jaundice. Extremities: Normal skin color and turgor. Lower extremity swelling. Neurological: No focal deficits. Alert and oriented x3. Results CBC & Chem 7: 10/09/24 06:04 10/09/24 06:04 Labs: Abnormal Lab Results - Last 24 Hours (Table) 10/08/24 10/08/24 10/08/24 Range/Units 17:06 17:06 17:06 RBC 2.69 L (3.80-5.40) m/uL Hgb 6.2 L* (11.4-16.0) gm/dL Hct 21.6 L (34.0-46.0) % MCH 23.1 L (25.0-35.0) pg MCHC 28.8 L (31.0-37.0) g/dL RDW 18.8 H (11.5-15.5) % Neutrophils # 8.8 H (1.3-7.7) k/uL Lymphocytes # (1.0-4.8) k/uL APTT 17.0 L (22.0-30.0) sec Sodium 133 L (137-145) mmol/L Carbon Dioxide (22-30) mmol/L BUN 36 H (7-17) mg/dL Glucose 139 H (74-99) mg/dL POC Glucose (mg/dL) (70-110) mg/dL Plasma Lactic Acid Jez (0.7-2.0) mmol/L Calcium 8.2 L (8.4-10.2) mg/dL Troponin I (0.000-0.034) ng/mL Total Protein (6.3-8.2) g/dL Albumin (3.5-5.0) g/dL Crossmatch 10/08/24 10/08/24 10/08/24 Range/Units 17:06 17:06 20:57 RBC (3.80-5.40) m/uL Hgb (11.4-16.0) gm/dL Hct (34.0-46.0) % MCH (25.0-35.0) pg MCHC (31.0-37.0) g/dL RDW (11.5-15.5) % Neutrophils # (1.3-7.7) k/uL Lymphocytes # (1.0-4.8) k/uL APTT (22.0-30.0) sec Sodium (137-145) mmol/L Carbon Dioxide (22-30) mmol/L BUN (7-17) mg/dL Glucose (74-99) mg/dL POC Glucose (mg/dL) (70-110) mg/dL Plasma Lactic Acid Jez 2.5 H* (0.7-2.0) mmol/L Calcium (8.4-10.2) mg/dL Troponin I 0.065 H* 0.052 H* (0.000-0.034) ng/mL Total Protein (6.3-8.2) g/dL Albumin (3.5-5.0) g/dL Crossmatch 10/08/24 10/08/24 10/08/24 Range/Units 21:59 22:59 23:45 RBC (3.80-5.40) m/uL Hgb (11.4-16.0) gm/dL Hct (34.0-46.0) % MCH (25.0-35.0) pg MCHC (31.0-37.0) g/dL RDW (11.5-15.5) % Neutrophils # (1.3-7.7) k/uL Lymphocytes # (1.0-4.8) k/uL APTT (22.0-30.0) sec Sodium (137-145) mmol/L Carbon Dioxide (22-30) mmol/L BUN (7-17) mg/dL Glucose (74-99) mg/dL POC Glucose (mg/dL) 181 H (70-110) mg/dL Plasma Lactic Acid Jez (0.7-2.0) mmol/L Calcium (8.4-10.2) mg/dL Troponin I 0.048 H* (0.000-0.034) ng/mL Total Protein (6.3-8.2) g/dL Albumin (3.5-5.0) g/dL Crossmatch See Detail 10/08/24 10/09/24 10/09/24 Range/Units 23:50 06:04 06:04 RBC 2.36 L (3.80-5.40) m/uL Hgb 5.5 L* (11.4-16.0) gm/dL Hct 19.2 L* (34.0-46.0) % MCH 23.3 L (25.0-35.0) pg MCHC 28.7 L (31.0-37.0) g/dL RDW 18.9 H (11.5-15.5) % Neutrophils # (1.3-7.7) k/uL Lymphocytes # 0.7 L (1.0-4.8) k/uL APTT (22.0-30.0) sec Sodium 134 L (137-145) mmol/L Carbon Dioxide 33 H (22-30) mmol/L BUN 32 H (7-17) mg/dL Glucose 129 H (74-99) mg/dL POC Glucose (mg/dL) (70-110) mg/dL Plasma Lactic Acid Jez (0.7-2.0) mmol/L Calcium 7.9 L (8.4-10.2) mg/dL Troponin I (0.000-0.034) ng/mL Total Protein 5.7 L (6.3-8.2) g/dL Albumin 3.1 L (3.5-5.0) g/dL Crossmatch See Detail Comments: Chest x-ray reports cardiomegaly. Pulmonary vascular congestion and bilateral pleural effusions. Correlate with BNP for congestive heart failure. Assessment and Plan (1) Anemia Narrative/Plan: D9-year-[age] female with multiple comorbidities presenting with shortness of breath and lower extremity swelling underwent triple valve surgery she according to patient in May of this year. At that time she was started on Eliquis. She is presenting with anemia with reported dark stools over the last couple weeks. Last colonoscopy 15 years ago. No prior history of peptic ulcer disease. Had another drop in her hemoglobin today BUN is elevated. Need to consider possible upper GI bleed secondary to black stool, anemia and elevated BUN. Will proceed with upper endoscopy tomorrow if cleared by cardiology. Until then transfuse as needed for hemoglobin under 7. Current Visit: Yes Status: Acute Code(s): D64.9 - ANEMIA, UNSPECIFIED SNOMED Code(s): 842905760 (2) Shortness of breath Current Visit: Yes Status: Acute Code(s): R06.02 - SHORTNESS OF BREATH SNOMED Code(s): 498316610 (3) Coronary artery disease Current Visit: Yes Status: Acute Code(s): I25.10 - ATHSCL HEART DISEASE OF [place] CORONARY ARTERY W/O ANG PCTRS SNOMED Code(s): 07962142 (4) Atrial fibrillation Current Visit: Yes Status: Acute Code(s): I48.91 - UNSPECIFIED ATRIAL FIBRI LLATION SNOMED Code(s): 29515810 (5) Pacemaker Current Visit: Yes Status: Acute Code(s): Z95.0 - PRESENCE OF CARDIAC PACEMAKER SNOMED Code(s): 760683665 (6) Insulin dependent type 2 diabetes mellitus Current Visit: No Status: Acute Code(s): E11.9 - TYPE 2 DIABETES MELLITUS WITHOUT COMPLICATIONS SNOMED Code(s): 401438307 Plan: 1. Continue symptomatic and supportive care 2. Transfuse PRBC as ordered 3. Daily CBC, transfuse for hemoglobin less than 7 4. Protonix 40 mg daily for GI prophylaxis 5. Hold Eliquis 6. Recommend upper endoscopy 7. Await cardiology evaluation and clearance for upper endoscopy 8. Rest of medical management per primary medical team Thank you for this consultation, further recommendations forthcoming after upper endoscopy. Otherwise gastroenterology will be signing off as there will be no GI availability in the hospital next week. Dr. Bailee Allen I agree with the dictator's note, documented as a scribe by Marline Ansari.
[2024-10-09] MEDS: FLUoxetine HCL 10 MG CAP PO SCH (10:59)
[2024-10-09 12:46] LABS: Glucose,Whole Blood 191 mg/dL (70-110)
--- NOTE | 2024-10-09 13:37 | P.CRDCN ---
History of Present Illness Consult date: 10/09/24 Consult reason: congestive heart failure History of present illness: This is a 79-year-old female patient of Dr. 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 We have been asked to evaluate the patient for CHF. Patient presented to the emergency center due to severe weakness and shortness of breath. Patient underwent aortic valve replacement, mitral valve replacement and tricuspid valve repair at [facility] in May of this year. She has had follow-up with Dr. Watson with complaints of continued limited physical activity, dyspnea and peripheral edema and fatigue. She has not felt any real improvement of her symptoms since she had her surgery and is disappointed about that. She denies having any chest pain or chest pressure. Her shortness of breath seems to be worsening and she has had significantly worse edema extending into her abdomen. She apparently has also been started on home oxygen which she is increased to 7 L. Regarding anemia, patient did receive 3 to 4 units after her surgery in May and she has had follow-up lab work done in July with her PCP and she was not contacted about any abnormality at that time. Also, patient is not eating or drinking very much. She states she has no appetite and has lost her sense of taste since the surgery. She denies any abdominal pain. Daughter states that she has had a distended abdomen for few weeks that waxes and wanes. Patient states her stools are very dark but not black. She has not been on iron at home. She has been taking baby aspirin and Eliquis although aspirin is not listed on her home medication list. She denies any vaginal bleeding. Blood pressure 116/60, heart rate 100, pulse ox 99% on CPAP. Patient is seen today in the emergency center waiting for a bed on the cardiac stepdown unit. Eliquis has been placed on hold. Patient has been seen by GI with plan for EGD tomorrow if cleared by cardiology. -EKG: Atrial paced rhythm -Chest x-ray: Cardiomegaly, pulmonary vascular congestion and bilateral pleural effusions. -Laboratory studies: Hemoglobin initially 6.2 now 5.5. Sodium 134, BUN 32 and creatinine 0.91. Hemoglobin A1c 7.5. Troponin 0.065, 0.052, 0.048. proBNP 2830. -Home cardiac medications: Eliquis 5 mg twice daily, Lasix 20 mg twice daily, Imdur 30 mg daily, Toprol-XL 50 mg daily, Crestor 40 mg at bedtime, also on levothyroxine 175 mcg daily. -Echocardiogram performed 05/24/2024 revealed normal EF, prosthetic AV, prosthetic MV, TV repair. -Cardiovascular surgery 05/20/2024: Tissue AVR, tissue MVR, TV repair -Previous CV surgery 11/06/2018: TAVR. -Cardiac catheterization 2020 with stent placed in the mid D1, stent in the ostial PDA. Review Of Systems: At the time of my exam: CONSTITUTIONAL: Denies fever or chills. Reports generalized weakness, fatigue HEENT: Denies blurred vision, vision changes, or eye pain. Denies hemoptysis CARDIOVASCULAR: Denies chest pain. Denies orthopnea. Denies PND. Denies palpitations RESPIRATORY: Reports progressive shortness of breath. Reports dyspnea on exertion GASTROINTESTINAL: Denies abdominal pain. Reports abdominal bloating, abdominal edema, denies nausea or vomiting. HEMATOLOGIC: Denies bleeding disorders. GENITOURINARY: Denies any blood in urine. SKIN: Denies puritis. Denies rash. Physical examination: Gen: This is a 79-year-old female in no acute distress VS: reviewed HEENT: Head is atraumatic, normocephalic. Pupils equal, round. Sclerae is ani cteric. NECK: Supple. No JVD. LUNGS: Clear to auscultation. No wheezes or rhonchi. No intercostal retractions. HEART: Regular rate and rhythm. 2/6 systolic ejection murmur at the base, 2/6 holosystolic murmur at the apex. ABDOMEN: Soft No tenderness. EXTREMITIES: Significant lower extremity edema including the thighs and lower abdomen. No calf tenderness. NEUROLOGICAL: Patient is awake, alert and oriented x3. Assessment: Acute diastolic heart failure Severe anemia, scheduled for transfusion packed RBCs Probable acute blood loss anemia secondary to acute on chronic GI bleed History of aortic valve replacement, mitral valve replacement, tricuspid valve repair May 2024 at [facility] Coronary artery disease with prior stenting Dual-chamber pacemaker, [place], November 2017 Paroxysmal atrial fibrillation on Eliquis Hyperlipidemia Diabetes mellitus type 2 Hypertension Plan: Resume patient's home cardiac medications Start patient on IV Lasix 40 mg every 12 hours Monitor ALICIA, daily weights, electrolytes and renal function Interrogate pacemaker Obtain 2-D echocardiogram and Doppler study to assess cardiac structure and function Due to severe degree of heart failure, edema and anasarca, discussed case with GI and would not recommend moving forward with endoscopy at this point. Endoscopy has been canceled. Further recommendations to follow based upon clinical course Thank you kindly for this consultation. Nurse practitioner note has been reviewed, I agree with documented findings and plan of care. Patient was seen and examined. 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 HAD THYROID AND PARATHYROID REMOVAL. TOTAL LEFT KNEE REPLACEMENT, CATARACT RT EYE, CATARACT LEFT EYE SURGERY ,COLONOSCOPY, TVAR- 11/2018 , Aortic valve replacement 10/2018 Past Anesthesia/Blood Transfusion Reactions: No Reported Reaction Type of Cardiac Device: Permanent Pacemaker Device Placement Date:: PACEMAKER NOV 2017. Past Psychological History: No Psychological Hx Reported Smoking Status: Never smoker Past Alcohol Use History: None Reported Past Drug Use History: None Reported - Past Family History Daughter(s) Family Medical History: Deep Vein Thrombosis (DVT) Sister(s) Family Medical History: Cancer Additional Family Medical History / Comment(s): BREAST CANCER Medications and Allergies Home Medications Medication Instructions Recorded Confirmed Type Levothyroxine Sodium [Levoxyl] 175 mcg PO DAILY 10/25/20 10/08/24 History Isosorbide Mononitrate ER [Imdur] 30 mg PO DAILY 01/03/22 10/08/24 History Apixaban [Eliquis] 5 mg PO BID 10/08/24 10/08/24 History FLUoxetine HCL [PROzac] 10 mg PO DAILY 10/08/24 10/08/24 History Furosemide [Lasix] 20 mg PO BID 10/08/24 10/08/24 History Insulin Aspart [NovoLOG Flexpen] 40 units SQ AC-TID 10/08/24 10/08/24 History Insulin Glargine,Hum.rec.anlog 20 - 30 units SQ HS 10/08/24 10/08/24 History [Lantus Solostar Pen] Metoprolol Succinate (ER) [Toprol 50 mg PO DAILY 10/08/24 10/08/24 History Xl] Rosuvastatin Calcium [Crestor] 40 mg PO HS 10/08/24 10/08/24 History Allergies Allergy/AdvReac Type Severity Reaction Status Date / Time nitrofurantoin Allergy Rash/Hives Verified 10/08/24 19:32 macrocrystalline [From Macrodantin] phenazopyridine HCl Allergy Rash/Hives Verified 10/08/24 19:32 [From Pyridium] Physical Exam Vitals: Vital Signs Temp Pulse Resp BP Pulse Ox 10/09/24 05:48 97.6 F 65 19 116/60 99 10/08/24 23:54 64 20 122/70 100 10/08/24 19:37 97.4 F L 62 20 106/55 100 10/08/24 18:35 64 22 120/60 99 10/08/24 17:45 67 18 125/45 100 10/08/24 17:39 67 18 92/59 100 10/08/24 16:28 71 18 133/75 100 10/08/24 16:23 22 10/08/24 16:14 97.9 F 65 16 139/101 100 Intake and Output 10/08/24 10/09/24 10/09/24 22:59 06:59 14:59 Other: Weight 117.934 kg Results 10/09/24 06:04 10/09/24 06:04 Cardiac Enzymes 10/08/24 10/08/24 10/08/24 Range/Units 17:06 17:06 20:57 AST 27 (14-36) U/L Troponin I 0.065 H* 0.052 H* (0.000-0.034) ng/mL 10/08/24 10/09/24 Range/Units 23:45 06:04 AST 25 (14-36) U/L Troponin I 0.048 H* (0.000-0.034) ng/mL Coagulation 10/08/24 Range/Units 17:06 PT 11.0 (10.0-12.5) sec APTT 17.0 L (22.0-30.0) sec CBC 10/08/24 10/09/24 Range/Units 17:06 06:04 WBC 10.6 6.6 (3.8-10.6) k/uL RBC 2.69 L 2.36 L (3.80-5.40) m/uL Hgb 6.2 L* 5.5 L* (11.4-16.0) gm/dL Hct 21.6 L 19.2 L* (34.0-46.0) % Plt Count 204 172 (150-450) k/uL Comprehensive Metabolic Panel 10/08/24 10/09/24 Range/Units 17:06 06:04 Sodium 133 L 134 L (137-145) mmol/L Potassium 4.2 4.4 (3.5-5.1) mmol/L Chloride 99 98 (98-107) mmol/L Carbon Dioxide 28 33 H (22-30) mmol/L BUN 36 H 32 H (7-17) mg/dL Creatinine 0.94 0.91 (0.52-1.04) mg/dL Glucose 139 H 129 H (74-99) mg/dL Calcium 8.2 L 7.9 L (8.4-10.2) mg/dL AST 27 25 (14-36) U/L ALT 16 15 (4-34) U/L Alkaline Phosphatase 78 70 (38-126) U/L Total Protein 6.4 5.7 L (6.3-8.2) g/dL Albumin 3.5 3.1 L (3.5-5.0) g/dL Current Medications Generic Name Dose Route Start Last Admin Trade Name Freq PRN Reason Stop Dose Admin Atorvastatin Calcium 80 mg 10/09/24 21:00 Atorvastatin 80 Mg Tab PO HS LILIYA Dextrose/Water 25 ml 10/08/24 22:31 Dextrose 50% Syringe 50 Ml IVP PER PROTOCOL PRN Hypoglycemia Protocol Dextrose/Water 50 ml 10/08/24 22:31 Dextrose 50% Syringe 50 Ml IVP PER PROTOCOL PRN Hypoglycemia Protocol Fluoxetine HCl 10 mg 10/09/24 09:00 Fluoxetine Hcl 10 Mg Cap PO DAILY [facility] Sodium Chloride 1,000 mls @ 20 mls/hr 10/08/24 20:00 10/08/24 22:12 Saline 0.9% IV 20 mls/hr .Q24H LILIYA Administration Insulin Aspart 0 unit 10/09/24 07:30 Insulin Aspart (Novolog) 100 Unit/Ml Vial SQ ACHS [facility] Protocol Insulin Detemir 20 unit 10/09/24 21:00 Insulin Detemir (Levemir) 100 Unit/Ml Syr SQ HS [facility] Isosorbide Mononitrate 30 mg 10/09/24 09:00 Isosorbide Mononitrate Er 30 Mg Tab.Er.24h PO DAILY LILIYA Levothyroxine Sodium 176 mcg 10/09/24 06:30 10/09/24 05:45 Levothyroxine 88 Mcg Tab PO 176 mcg DAILY@0630 LILIYA Administration Metoprolol Succinate 50 mg 10/09/24 09:00 Metoprolol Succinate (Er) 50 Mg Tab.Er.24h PO DAILY LILIYA Naloxone HCl 0.2 mg 10/08/24 19:48 Naloxone 0.4 Mg/Ml 1 Ml Vial IV Q2M PRN Opioid Reversal Pantoprazole Sodium 40 mg 10/08/24 21:00 10/08/24 22:14 Pantoprazole 40 Mg/10 Ml Vial IV 40 mg BID LILIYA Administration Intake and Output 10/08/24 10/09/24 10/09/24 22:59 06:59 14:59 Other: Weight 117.934 kg 10/09/24 06:04 10/09/24 06:04
[2024-10-09] MEDS: ISOSORBIDE MONONITRATE ER 30 MG TAB.ER.24H PO SCH (14:37)
[2024-10-09] MEDS: METOPROLOL SUCCINATE (ER) 50 MG TAB.ER.24H PO SCH (14:37)
[2024-10-09] MEDS: FUROSEMIDE 10 MG/ML 4 ML VIAL IV STA (14:45)
[2024-10-09 15:08] LABS: Anisocytosis Slight; Basophils % (A) 0 %; Eosinophils # (A) 0.1 k/uL (0-0.7); Eosinophils % (A) 1 %; HCT 21.5 % (34.0-46.0); Hypochromasia Marked; Lymphocytes # (A) 0.6 k/uL (1.0-4.8); Lymphocytes % (A) 8 %; MCH 24.1 pg (25.0-35.0); MCHC 29.5 g/dL (31.0-37.0); MCV 81.9 fL (80.0-100.0); Mean Platelet Volume 7.9; Microcytosis Slight; Monocytes # (A) 0.3 k/uL (0-1.0); Monocytes % (A) 4 %; Neutrophils # (A) 5.9 k/uL (1.3-7.7); Neutrophils % (A) 85 %; Platelet Count 161 k/uL (150-450); Poikilocytosis Moderate; RBC 2.62 m/uL (3.80-5.40); RDW 18.7 % (11.5-15.5); WBC 6.9 k/uL (3.8-10.6)
[2024-10-09 15:11] LABS: HGB 6.3 gm/dL (11.4-16.0)
[2024-10-09 17:32] LABS: Appearance,Urine Cloudy (Clear); Bacteria,Urine Many /hpf; Bilirubin,Urine Negative (Negative); Blood,Urine Large (Negative); Color,Urine Colorless; Glucose,Urine (UA) Negative (Negative); Hyaline Casts,Urine 3 /lpf (0-2); Ketones,Urine Negative (Negative); Leukocyte Esterase,Urine Large (Negative); Nitrite,Urine Negative (Negative); Protein,Urine Negative (Negative); RBC,Urine 98 /hpf (0-5); Specific Gravity,Urine 1.009 (1.001-1.035); Squamous Epithelial Cell,Urine 1 /hpf (0-4); Urobilinogen,Urine <2.0 mg/dL (<2.0); WBC,Urine 103 /hpf (0-5)
[2024-10-09 17:59] LABS: Glucose,Whole Blood 243 mg/dL (70-110)
[2024-10-09 21:25] LABS: Glucose,Whole Blood 279 mg/dL (70-110)
--- NOTE | 2024-10-09 21:33 | P.HPIM ---
History of Present Illness H&P Date: 10/09/24 Chief Complaint: bhargavi Perales is a 79 yo F female with past medical history of aortic valve replacement and mitral valve replacement and tricuspid valve repair 05/2024, valvular cardiomyopathy, coronary artery disease, dual-chamber pacemaker, paroxysmal atrial fibrillation, hyperlipidemia, diabetes mellitus type 2, hypertension who presented to the emergency center due to severe weakness and shortness of breath. She complains that ever since her heart surgery at [facility] she has felt short of breath and did not get any real improvement from the procedure. She denies having any chest pain or chest pressure. She complains her shortness of breath recently worsened and she had to turn her oxygen up. She denies abdominal pain although endorses lack of appetite. Patient states her stools are very dark but not black. Blood pressure 116/60, heart rate 100, pulse ox 99% on CPAP. Hgb down to 5.1 this morning. Review of Systems All systems: negative Constitutional: Reports fatigue, Reports weakness, Denies chills, Denies fever Eyes: denies blurred vision, denies pain Ears, nose, mouth and throat: Denies headache, Denies sore throat Cardiovascular: Denies chest pain, Denies shortness of breath Respiratory: Denies cough Gastrointestinal: Denies abdominal pain, Denies diarrhea, Denies nausea, Denies vomiting Genitourinary: Denies dysuria, Denies hematuria Musculoskeletal: Denies myalgias Integumentary: Denies pruritus, Denies rash Neurological: Denies numbness, Denies weakness Psychiatric: Denies anxiety, Denies depression Endocrine: Denies fatigue, Denies weight change Past Medical History Past Medical History: Atrial Fibrillation, Diabetes Mellitus, Hearing Disorder / Deafness, Hyperlipidemia, Osteoarthritis (OA), Pneumonia, Sleep Apnea/CPAP/BIPAP, Thyroid Disorder Additional Past Medical History / Comment(s): USES BIPAP, AORTIC VALVE REPLACE MENT , HX A-FIB WITH PNEUMONIA,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 HAD THYROID AND PARATHYROID REMOVAL. TOTAL LEFT KNEE REPLACEMENT, CATARACT RT EYE, CATARACT LEFT EYE SURGERY ,COLONOSCOPY, TVAR- 11/2018 , Aortic valve replacement 10/2018 Past Anesthesia/Blood Transfusion Reactions: No Reported Reaction Type of Cardiac Device: Permanent Pacemaker Device Placement Date:: PACEMAKER NOV 2017. Past Psychological History: No Psychological Hx Reported Smoking Status: Never smoker Past Alcohol Use History: None Reported Past Drug Use History: None Reported - Past Family History Daughter(s) Family Medical History: Deep Vein Thrombosis (DVT) Sister(s) Family Medical History: Cancer Additional Family Medical History / Comment(s): BREAST CANCER Medications and Allergies Home Medications Medication Instructions Recorded Confirmed Type Levothyroxine Sodium [Levoxyl] 175 mcg PO DAILY 10/25/20 10/08/24 History Isosorbide Mononitrate ER [Imdur] 30 mg PO DAILY 01/03/22 10/08/24 History Apixaban [Eliquis] 5 mg PO BID 10/08/24 10/08/24 History FLUoxetine HCL [PROzac] 10 mg PO DAILY 10/08/24 10/08/24 History Furosemide [Lasix] 20 mg PO BID 10/08/24 10/08/24 History Insulin Aspart [NovoLOG Flexpen] 40 units SQ AC-TID 10/08/24 10/08/24 History Insulin Glargine,Hum.rec.anlog 20 - 30 units SQ HS 10/08/24 10/08/24 History [Lantus Solostar Pen] Metoprolol Succinate (ER) [Toprol 50 mg PO DAILY 10/08/24 10/08/24 History Xl] Rosuvastatin Calcium [Crestor] 40 mg PO HS 10/08/24 10/08/24 History Allergies Allergy/AdvReac Type Severity Reaction Status Date / Time nitrofurantoin Allergy Rash/Hives Verified 10/08/24 19:32 macrocrystalline [From Macrodantin] phenazopyridine HCl Allergy Rash/Hives Verified 10/08/24 19:32 [From Pyridium] Physical Exam Vitals: Vital Signs Temp Pulse Resp BP Pulse Ox 10/09/24 20:42 62 16 100/61 10/09/24 20:21 63 18 95/62 100 10/09/24 18:51 64 18 111/39 100 10/09/24 18:14 66 18 107/40 100 10/09/24 17:13 98.3 F 60 18 115/52 100 10/09/24 16:53 61 18 97/53 100 10/09/24 16:43 98.6 F 62 18 92/47 100 10/09/24 14:42 61 18 102/50 100 10/09/24 13:05 97.5 F L 61 18 112/50 100 10/09/24 12:11 62 18 112/60 97 10/09/24 11:34 70 18 102/47 99 10/09/24 11:06 97.8 F 60 18 102/50 100 10/09/24 10:46 97.6 F 60 18 91/79 100 10/09/24 10:36 64 218 H 83/40 98 10/09/24 08:51 100 18 116/60 67 L 10/09/24 05:48 97.6 F 65 19 116/60 99 10/08/24 23:54 64 20 122/70 100 Intake and Output 10/09/24 10/09/24 10/09/24 06:59 14:59 22:59 Intake Total 279 300 Output Total 600 Balance 279 -300 Intake: Intake, IV Titration 200 Amount Sodium Chloride 0.9% 1, 200 000 ml @ 20 mls/hr IV . Q24H [facility] Rx#:[id number] Oral 100 Blood Product 279 0 Rc As-1 Unit 0 [id number] Rc Pheresis 2 As3 Unit 279 [id number] Output: Urine 600 Obese elderly female on CPAP NC/AT, mmm Neck supple no thyromegaly or JVD CV irregular, systolic murmur Lungs CTAB Abd soft nondistended Skin: wamr and dry Neruo: AAOx3 no focal deficit Results CBC & Chem 7: 10/09/24 14:34 10/09/24 06:04 Labs: Abnormal Lab Results - Last 24 Hours (Table) 10/08/24 10/08/24 10/08/24 Range/Units 17:09 20:57 21:59 RBC (3.80-5.40) m/uL Hgb (11.4-16.0) gm/dL Hct (34.0-46.0) % MCH (25.0-35.0) pg MCHC (31.0-37.0) g/dL RDW (11.5-15.5) % Lymphocytes # (1.0-4.8) k/uL Sodium (137-145) mmol/L Carbon Dioxide (22-30) mmol/L BUN (7-17) mg/dL Glucose (74-99) mg/dL POC Glucose (mg/dL) (70-110) mg/dL Hemoglobin A1c (<=6.0) % Calcium (8.4-10.2) mg/dL Troponin I 0.052 H* (0.000-0.034) ng/mL Total Protein (6.3-8.2) g/dL Albumin (3.5-5.0) g/dL Urine Appearance Cloudy H (Clear) Urine Blood Large H (Negative) Ur Leukocyte Esterase Large H (Negative) Urine RBC 98 H (0-5) /hpf Urine WBC 103 H (0-5) /hpf Urine Bacteria Many H (None) /hpf Hyaline Casts 3 H (0-2) /lpf Crossmatch See Detail Blood Bank Comment 10/08/24 10/08/24 10/08/24 Range/Units 22:59 23:45 23:50 RBC (3.80-5.40) m/uL Hgb (11.4-16.0) gm/dL Hct (34.0-46.0) % MCH (25.0-35.0) pg MCHC (31.0-37.0) g/dL RDW (11.5-15.5) % Lymphocytes # (1.0-4.8) k/uL Sodium (137-145) mmol/L Carbon Dioxide (22-30) mmol/L BUN (7-17) mg/dL Glucose (74-99) mg/dL POC Glucose (mg/dL) 181 H (70-110) mg/dL Hemoglobin A1c (<=6.0) % Calcium (8.4-10.2) mg/dL Troponin I 0.048 H* (0.000-0.034) ng/mL Total Protein (6.3-8.2) g/dL Albumin (3.5-5.0) g/dL Urine Appearance (Clear) Urine Blood (Negative) Ur Leukocyte Esterase (Negative) Urine RBC (0-5) /hpf Urine WBC (0-5) /hpf Urine Bacteria (None) /hpf Hyaline Casts (0-2) /lpf Crossmatch See Detail Blood Bank Comment Sent to [facility] A 10/09/24 10/09/24 10/09/24 Range/Units 06:04 06:04 06:04 RBC 2.36 L (3.80-5.40) m/uL Hgb 5.5 L* (11.4-16.0) gm/dL Hct 19.2 L* (34.0-46.0) % MCH 23.3 L (25.0-35.0) pg MCHC 28.7 L (31.0-37.0) g/dL RDW 18.9 H (11.5-15.5) % Lymphocytes # 0.7 L (1.0-4.8) k/uL Sodium 134 L (137-145) mmol/L Carbon Dioxide 33 H (22-30) mmol/L BUN 32 H (7-17) mg/dL Glucose 129 H (74-99) mg/dL POC Glucose (mg/dL) (70-110) mg/dL Hemoglobin A1c 7.5 H (<=6.0) % Calcium 7.9 L (8.4-10.2) mg/dL Troponin I (0.000-0.034) ng/mL Total Protein 5.7 L (6.3-8.2) g/dL Albumin 3.1 L (3.5-5.0) g/dL Urine Appearance (Clear) Urine Blood (Negative) Ur Leukocyte Esterase (Negative) Urine RBC (0-5) /hpf Urine WBC (0-5) /hpf Urine Bacteria (None) /hpf Hyaline Casts (0-2) /lpf Crossmatch Blood Bank Comment 10/09/24 10/09/24 10/09/24 Range/Units 09:02 12:42 14:34 RBC 2.62 L (3.80-5.40) m/uL Hgb 6.3 L* (11.4-16.0) gm/dL Hct 21.5 L (34.0-46.0) % MCH 24.1 L (25.0-35.0) pg MCHC 29.5 L (31.0-37.0) g/dL RDW 18.7 H (11.5-15.5) % Lymphocytes # 0.6 L (1.0-4.8) k/uL Sodium (137-145) mmol/L Carbon Dioxide (22-30) mmol/L BUN (7-17) mg/dL Glucose (74-99) mg/dL POC Glucose (mg/dL) 135 H 191 H (70-110) mg/dL Hemoglobin A1c (<=6.0) % Calcium (8.4-10.2) mg/dL Troponin I (0.000-0.034) ng/mL Total Protein (6.3-8.2) g/dL Albumin (3.5-5.0) g/dL Urine Appearance (Clear) Urine Blood (Negative) Ur Leukocyte Esterase (Negative) Urine RBC (0-5) /hpf Urine WBC (0-5) /hpf Urine Bacteria (None) /hpf Hyaline Casts (0-2) /lpf Crossmatch Blood Bank Comment 10/09/24 10/09/24 Range/Units 17:56 21:23 RBC (3.80-5.40) m/uL Hgb (11.4-16.0) gm/dL Hct (34.0-46.0) % MCH (25.0-35.0) pg MCHC (31.0-37.0) g/dL RDW (11.5-15.5) % Lymphocytes # (1.0-4.8) k/uL Sodium (137-145) mmol/L Carbon Dioxide (22-30) mmol/L BUN (7-17) mg/dL Glucose (74-99) mg/dL POC Glucose (mg/dL) 243 H 279 H (70-110) mg/dL Hemoglobin A1c (<=6.0) % Calcium (8.4-10.2) mg/dL Troponin I (0.000-0.034) ng/mL Total Protein (6.3-8.2) g/dL Albumin (3.5-5.0) g/dL Urine Appearance (Clear) Urine Blood (Negative) Ur Leukocyte Esterase (Negative) Urine RBC (0-5) /hpf Urine WBC (0-5) /hpf Urine Bacteria (None) /hpf Hyaline Casts (0-2) /lpf Crossmatch Blood Bank Comment Assessment and Plan Plan: Acute on chronic systolic CHF Cardiomyopathy Valvular heart disease Acute blood loss anemia Admit, consult Cardiology and GI. Start IV protonix and start lasix and continue remiander of cardiac regimen. Hold eliquis
[2024-10-09] MEDS: FUROSEMIDE 10 MG/ML 4 ML VIAL IV SCH (21:36)
[2024-10-09] MEDS: metOLazone 5 MG TAB PO SCH (21:36)
[2024-10-09] MEDS: INSULIN DETEMIR (LEVEMIR) 100 UNIT/ML SYR SQ SCH (21:36)
[2024-10-09] MEDS: ATORVASTATIN 80 MG TAB PO SCH (21:36)
[2024-10-10 06:07] LABS: Glucose,Whole Blood 167 mg/dL (70-110)
[2024-10-10 07:22] LABS: Anisocytosis Slight; HCT 22.6 % (34.0-46.0); Hypochromasia Marked; MCH 25.2 pg (25.0-35.0); MCHC 30.6 g/dL (31.0-37.0); MCV 82.3 fL (80.0-100.0); Mean Platelet Volume 9.2; Microcytosis Slight; Platelet Count 144 k/uL (150-450); Poikilocytosis Marked; RBC 2.75 m/uL (3.80-5.40); RDW 18.6 % (11.5-15.5); WBC 6.3 k/uL (3.8-10.6)
[2024-10-10 07:35] LABS: African American GFR (CKD) 59 (>60 ml/min/1.73 sqM); Anion Gap 0 mmol/L; Blood Urea Nitrogen 29 mg/dL (7-17); Calcium 7.8 mg/dL (8.4-10.2); Carbon Dioxide 36 mmol/L (22-30); Chloride 96 mmol/L (98-107); Glucose 136 mg/dL (74-99); Non-African American GFR(CKD) 51 (>60 ml/min/1.73 sqM); Potassium 3.8 mmol/L (3.5-5.1); Sodium 132 mmol/L (137-145)
[2024-10-10 07:39] LABS: HGB 6.9 gm/dL (11.4-16.0)
--- NOTE | 2024-10-10 09:49 | CA ---
Transthoracic Echo Report Name: Sheila Perales Age: 79 Gender: F : 1945 Exam Date: 10/09/2024 15:27 Exam Location: [facility] Ht (in): 63 Wt (lb): 260 Ordering Physician: Janna Verde Attending/Referring Phys: [id number], Ammon Manager Latin Tereza Saldana RDCS Procedure CPT: Indications: LVF Cardiac Hx: Technical Quality: Very technically difficult study Contrast 1: Definity Total Dose (mL): 2 Contrast 2: Total Dose (mL): MEASUREMENTS (Male / Female) Normal Values 2D ECHO LVOT Diameter 2.2 cm LV Diastolic Volume MOD BP 75.4 cm??? 67 - 155 / 56 - 104 cm??? LV Systolic Volume MOD BP 26.4 cm??? 22 - 58 / 19 - 49 cm??? LV Ejection Fraction MOD BP 64.9 % >= 55 % LV Cardiac Index MOD BP 1557.4 cm???/min???m??? LV Diastolic Volume MOD 4C 70.3 cm??? LV Systolic Volume MOD 4C 23.5 cm??? LV Ejection Fraction MOD 4C 66.6 % LV Cardiac Index MOD 4C 1486.8 cm???/min???m??? LV Diastolic Length 4C 7.8 cm LV Systolic Length 4C 6.1 cm LV Diastolic Volume MOD 2C 79.6 cm??? LV Systolic Volume MOD 2C 28.3 cm??? LV Ejection Fraction MOD 2C 64.5 % LV Cardiac Index MOD 2C 1632.6 cm???/min???m??? LV Diastolic Length 2C 7.7 cm LV Systolic Length 2C 6.4 cm Ascending Aorta Diameter 3.2 cm DOPPLER AV Peak Velocity 176.4 cm/s AV Peak Gradient 12.5 mmHg AV Mean Velocity 123.3 cm/s AV Mean Gradient 6.7 mmHg AV Velocity Time Integral 40.4 cm LVOT Peak Velocity 112.6 cm/s LVOT Peak Gradient 5.1 mmHg LVOT Velocity Time Integral 24.3 cm LVOT Stroke Volume 90.0 cm??? LVOT Stroke Volume Index 41.6 ml/m??? LVOT Cardiac Index 2860.6 cm???/min???m??? AV Area Cont Eq vti 2.2 cm??? AV Area Cont Eq pk 2.4 cm??? MV Peak Velocity 198.2 cm/s MV Peak Gradient 15.7 mmHg MV Mean Velocity 121.1 cm/s MV Mean Gradient 6.7 mmHg MV Velocity Time Integral 70.3 cm TV Peak Velocity 113.0 cm/s TR Peak Velocity 338.8 cm/s TR Peak Gradient 45.9 mmHg Right Atrial Pressure 10.0 mmHg Pulmonary Artery Systolic Pressu 55.9 mmHg Right Ventricular Systolic Press 55.9 mmHg PV Peak Velocity 126.7 cm/s PV Peak Gradient 6.4 mmHg FINDINGS Left Ventricle Left ventricular ejection fraction is estimated at 60-65 %. Left ventricular cavity size normal. Left ventricular wall thickness normal. No obvious regional wall motion abnormalities. Right Ventricle Normal right ventricular size. Moderate to severe pulmonary hypertension. Right Atrium Right atrium not well visualized. Left Atrium Left atrium not well visualized. Mitral Valve Mitral valve replacement. Mean gradient 7mmHg. Mitral mitral regurgitation. Aortic Valve Aortic valve replacement. No paravalvular aortic regurgitation. No central aortic regurgitation. Tricuspid Valve Tricuspid valve repair. Mean gradient 3mmHg. Mild tricuspid regurgitation. Pulmonic Valve Pulmonic valve not well visualized. Pericardium No pericardial effusion. Aorta Aortic root and proximal ascending aorta not well visualized. CONCLUSIONS Technically difficult study with poor acoustic window Left ventricular ejection fraction is estimated at 60-65 %. No obvious regional wall motion abnormalities. Severe pulmonary hypertension, RVSP 56 mmHg Status post mitral valve replacement, mild mitral stenosis, mean gradient 6 mmHg at heart rate 68 bpm Aortic valve replacement, no significant PVL, or stenosis Previewed by: Dr Chip Loco (Electronically Signed) Final Date: 10 October 2024 09:48
[2024-10-10 11:26] LABS: Glucose,Whole Blood 209 mg/dL (70-110)
--- NOTE | 2024-10-10 14:59 | P.PN ---
Subjective Progress Note Date: 10/10/24 This is a 79-year-old female patient of Dr. 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 We have been asked to evaluate the patient for CHF. Patient presented to the emergency center due to severe weakness and shortness of breath. Patient underwent aortic valve replacement, mitral valve replacement and tricuspid valve repair at [facility] in May of this year. She has had follow-up with Dr. Watson with complaints of continued limited physical activity, dyspnea and peripheral edema and fatigue. She has not felt any real improvement of her symptoms since she had her surgery and is disappointed about that. She denies having any chest pain or chest pressure. Her shortness of breath seems to be worsening and she has had significantly worse edema extending into her abdomen. She apparently has also been started on home oxygen which she is increased to 7 L. Regarding anemia, patient did receive 3 to 4 units after her surgery in May and she has had follow-up lab work done in July with her PCP and she was not contacted about any abnormality at that time. Also, patient is not eating or drinking very much. She states she has no appetite and has lost her sense of taste since the surgery. She denies any abdominal pain. Daughter states that she has had a distended abdomen for few weeks that waxes and wanes. Patient states her stools are very dark but not black. She has not been on iron at home. She has been taking baby aspirin and Eliquis although aspirin is not listed on her home medication list. She denies any vaginal bleeding. Blood pressure 116/60, heart rate 100, pulse ox 99% on CPAP. Patient is seen today in the emergency center waiting for a bed on the cardiac stepdown unit. Eliquis has been placed on hold. Patient has been seen by GI with plan for EGD tomorrow if cleared by cardiology. -EKG: Atrial paced rhythm -Chest x-ray: Cardiomegaly, pulmonary vascular congestion and bilateral pleural effusions. -Laboratory studies: Hemoglobin initially 6.2 now 5.5. Sodium 134, BUN 32 and creatinine 0.91. Hemoglobin A1c 7.5. Troponin 0.065, 0.052, 0.048. proBNP 2830. -Home cardiac medications: Eliquis 5 mg twice daily, Lasix 20 mg twice daily, Imdur 30 mg daily, Toprol-XL 50 mg daily, Crestor 40 mg at bedtime, also on levothyroxine 175 mcg daily. -Echocardiogram performed 05/24/2024 revealed normal EF, prosthetic AV, prosthetic MV, TV repair. -Cardiovascular surgery 05/20/2024: Tissue AVR, tissue MVR, TV repair -Previous CV surgery 11/06/2018: TAVR. -Cardiac catheterization 2020 with stent placed in the mid D1, stent in the ostial PDA. 10/10 Physical examination: Gen: This is a 79-year-old female in no acute distress VS: reviewed HEENT: Head is atraumatic, normocephalic. Pupils equal, round. Sclerae is anicteric. NECK: Supple. No JVD. LUNGS: Clear to auscultation. No wheezes or rhonchi. No intercostal retractions. HEART: Regular rate and rhythm. 2/6 systolic ejection murmur at the base, 2/6 holosystolic murmur at the apex. ABDOMEN: Soft No tenderness. EXTREMITIES: Significant lower extremity edema including the thighs and lower abdomen. No calf tenderness. NEUROLOGICAL: Patient is awake, alert and oriented x3. Assessment: Acute diastolic heart failure Severe anemia, scheduled for transfusion packed RBCs Probable acute blood loss anemia secondary to acute on chronic GI bleed History of aortic valve replacement, mitral valve replacement, tricuspid valve repair May 2024 at [facility] Coronary artery disease with prior stenting Dual-chamber pacemaker, [place], November 2017 Paroxysmal atrial fibrillation on Eliquis Hyperlipidemia Diabetes mellitus type 2 Hypertension Echocardiogram showed EF of 60%, normally functioning bioprosthetic mitral valve with mild stenosis, normally functioning bioprosthetic aortic valve with no significant PVL or stenosis. Plan: Resume patient's home cardiac medications Start patient on IV Lasix 40 mg every 12 hours Continue metolazone, add Aldactone 25 mg daily today. Increase metoprolol to 50 mg twice daily to achieve a lower heart rate to decrease the effect of mild mitral stenosis. Replace blood as needed, keep hemoglobin above 7. Monitor ALICIA, daily weights, electrolytes and renal function Interrogate pacemaker Due to severe degree of heart failure, edema and anasarca, discussed case with GI and would not recommend moving forward with endoscopy at this point. Endoscopy has been canceled. Further recommendations to follow based upon clinical course . Objective - Vital Signs Vital signs: Vital Signs Temp 97.0 F L 10/10/24 14:18 Pulse 66 10/10/24 14:18 Resp 18 10/10/24 14:18 BP 111/57 10/10/24 14:18 Pulse Ox 99 10/10/24 14:18 FiO2 Intake & Output 10/09/24 10/10/24 10/10/24 18:59 06:59 18:59 Intake Total 579 0 690 Output Total 600 1600 1150 Balance - -460 Weight 117.934 kg Intake: IV 20 Invasive Line 1 20 Intake, IV Titration 200 Amount Sodium Chloride 0.9% 1, 200 000 ml @ 20 mls/hr IV . Q24H [facility] Rx#:[id number] Oral 100 360 Blood Product 279 0 310 Rc As-1 Unit 0 0 [id number] Rc As-1 Unit 310 [id number] Rc Pheresis 2 As3 Unit 279 [id number] Output: Urine 600 1600 1150 Other: Voiding Method External Catheter External Catheter # Voids 3 - Labs CBC & Chem 7: 10/10/24 07:07 10/10/24 07:07 Labs: Abnormal Lab Results - Last 24 Hours (Table) 10/08/24 10/08/24 10/09/24 Range/Units 17:09 23:50 14:34 RBC 2.62 L (3.80-5.40) m/uL Hgb 6.3 L* (11.4-16.0) gm/dL Hct 21.5 L (34.0-46.0) % MCH 24.1 L (25.0-35.0) pg MCHC 29.5 L (31.0-37.0) g/dL RDW 18.7 H (11.5-15.5) % Plt Count (150-450) k/uL Lymphocytes # 0.6 L (1.0-4.8) k/uL Sodium (137-145) mmol/L Chloride (98-107) mmol/L Carbon Dioxide (22-30) mmol/L BUN (7-17) mg/dL Creatinine (0.52-1.04) mg/dL Glucose (74-99) mg/dL POC Glucose (mg/dL) (70-110) mg/dL Calcium (8.4-10.2) mg/dL Urine Appearance Cloudy H (Clear) Urine Blood Large H (Negative) Ur Leukocyte Esterase Large H (Negative) Urine RBC 98 H (0-5) /hpf Urine WBC 103 H (0-5) /hpf Urine Bacteria Many H (None) /hpf Hyaline Casts 3 H (0-2) /lpf Crossmatch See Detail Blood Bank Comment Sent to [facility] A 10/09/24 10/09/24 10/10/24 Range/Units 17:56 21:23 06:03 RBC (3.80-5.40) m/uL Hgb (11.4-16.0) gm/dL Hct (34.0-46.0) % MCH (25.0-35.0) pg MCHC (31.0-37.0) g/dL RDW (11.5-15.5) % Plt Count (150-450) k/uL Lymphocytes # (1.0-4.8) k/uL Sodium (137-145) mmol/L Chloride (98-107) mmol/L Carbon Dioxide (22-30) mmol/L BUN (7-17) mg/dL Creatinine (0.52-1.04) mg/dL Glucose (74-99) mg/dL POC Glucose (mg/dL) 243 H 279 H 167 H (70-110) mg/dL Calcium (8.4-10.2) mg/dL Urine Appearance (Clear) Urine Blood (Negative) Ur Leukocyte Esterase (Negative) Urine RBC (0-5) /hpf Urine WBC (0-5) /hpf Urine Bacteria (None) /hpf Hyaline Casts (0-2) /lpf Crossmatch Blood Bank Comment 10/10/24 10/10/24 10/10/24 Range/Units 07:07 07:07 11:24 RBC 2.75 L (3.80-5.40) m/uL Hgb 6.9 L* (11.4-16.0) gm/dL Hct 22.6 L (34.0-46.0) % MCH (25.0-35.0) pg MCHC 30.6 L (31.0-37.0) g/dL RDW 18.6 H (11.5-15.5) % Plt Count 144 L (150-450) k/uL Lymphocytes # (1.0-4.8) k/uL Sodium 132 L (137-145) mmol/L Chloride 96 L (98-107) mmol/L Carbon Dioxide 36 H (22-30) mmol/L BUN 29 H (7-17) mg/dL Creatinine 1.05 H (0.52-1.04) mg/dL Glucose 136 H (74-99) mg/dL POC Glucose (mg/dL) 209 H (70-110) mg/dL Calcium 7.8 L (8.4-10.2) mg/dL Urine Appearance (Clear) Urine Blood (Negative) Ur Leukocyte Esterase (Negative) Urine RBC (0-5) /hpf Urine WBC (0-5) /hpf Urine Bacteria (None) /hpf Hyaline Casts (0-2) /lpf Crossmatch Blood Bank Comment
[2024-10-10] MEDS: SPIRONOLACTONE 25 MG TAB PO SCH (15:11)
[2024-10-10 16:34] LABS: Glucose,Whole Blood 207 mg/dL (70-110)
[2024-10-10] MEDS ORDERED: SENNOSIDES 8.6 MG TAB PO PRN (16:43)
--- NOTE | 2024-10-10 17:53 | P.PN ---
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 She complains that ever since her heart surgery at [facility] she has felt short of breath and did not get any real improvement from the procedure. She denies having any chest pain or chest pressure. She complains her shortness of breath recently worsened and she had to turn her oxygen up. She denies abdominal pain although endorses lack of radha etite. Patient states her stools are very dark but not black. Blood pressure 116/60, heart rate 100, pulse ox 99% on CPAP. Hgb down to 5.1 this [facility] 10/10 Patient presents reports of dyspnea. Patient states her breathing is better today No chest pain Currently she is getting blood transfusion Patient had severe anemia on admission with hemoglobin 5.5 and 6.3, after blood transfusion 6.9 GI team saw her yesterday but patient was not cleared by reference services head to undergo EGD which is held now Patient remains on IV Protonix Eliquis is on hold for her A-fib and other cardiac diseases Also she was placed on IV Lasix 40 mg twice daily given her acute CHF. And also on review of her blood transfusion Cardiology team added aspirin 81 mg while she is off Eliquis Ejection fraction is 60-65 percent, severe pulmonary hypertension with RVSP is 56 Hemoglobin A1c is elevated at 7.5% Review of systems CONSTITUTIONAL: No fever, no malaise, no fatigue. HEENT: No recent visual problems or hearing problems. Denied any sore throat. HEMATOLOGICAL: Denies any bleeding or petechiae. GENITOURINARY: Denies any burning micturition, frequency, or urgency. MUSCULOSKELETAL/RHEUMATOLOGICAL: Denies any joint pain, swelling, or any muscle pain. ENDOCRINE: Denies any polyuria or polydipsia. Active Medications Generic Name Dose Route Start Last Admin Trade Name Freq PRN Reason Stop Dose Admin Aspirin 81 mg 10/11/24 09:00 Aspirin 81 Mg PO DAILY [facility] Atorvastatin Calcium 20 mg 10/10/24 21:00 Atorvastatin 20 Mg Tab PO HS [facility] Dextrose/Water 25 ml 10/08/24 22:31 Dextrose 50% Syringe 50 Ml IVP PER PROTOCOL PRN Hypoglycemia Protocol Dextrose/Water 50 ml 10/08/24 22:31 Dextrose 50% Syringe 50 Ml IVP PER PROTOCOL PRN Hypoglycemia Protocol Fluoxetine HCl 10 mg 10/09/24 09:00 10/10/24 07:39 Fluoxetine Hcl 10 Mg Cap PO 10 mg DAILY LILIYA Administration Furosemide 40 mg 10/09/24 21:00 10/10/24 07:38 Furosemide 10 Mg/Ml 4 Ml Vial IV 40 mg BID LILIYA Administration Insulin Aspart 0 unit 10/09/24 07:30 10/10/24 16:55 Insulin Aspart (Novolog) 100 Unit/Ml Vial SQ 15 unit ACHS LILIYA Administration Protocol Insulin Detemir 20 unit 10/09/24 21:00 10/09/24 21:36 Insulin Detemir (Levemir) 100 Unit/Ml Syr SQ 20 unit HS LILIYA Administration Levothyroxine Sodium 176 mcg 10/09/24 06:30 10/10/24 06:13 Levothyroxine 88 Mcg Tab PO 176 mcg DAILY@0630 LILIYA Administration Metolazone 10 mg 10/09/24 20:30 10/10/24 07:38 Metolazone 5 Mg Tab PO 10 mg DAILY LILIYA Administration Metoprolol Succinate 50 mg 10/10/24 21:00 Metoprolol Succinate (Er) 50 Mg Tab.Er.24h PO BID LILIYA Naloxone HCl 0.2 mg 10/08/24 19:48 Naloxone 0.4 Mg/Ml 1 Ml Vial IV Q2M PRN Opioid Reversal Pantoprazole Sodium 40 mg 10/08/24 21:00 10/10/24 07:38 Pantoprazole 40 Mg/10 Ml Vial IV 40 mg BID LILIYA Administration Senna 8.6 mg 10/10/24 16:43 Sennosides 8.6 Mg Tab PO DAILY PRN Constipation Spironolactone 25 mg 10/10/24 15:30 10/10/24 15:11 Spironolactone 25 Mg Tab PO 25 mg DAILY LILIYA Administration Objective - Vital Signs Vital signs: Vital Signs Temp 97.0 F L 10/10/24 07:33 Pulse 60 10/10/24 07:33 Resp 18 10/10/24 07:33 BP 112/61 10/10/24 07:33 Pulse Ox 99 10/10/24 07:33 FiO2 Intake & Output 1110/10/24 10/10/24 18:59 06:59 18:59 Intake Total 579 0 190 Output Total 600 1600 Balance -21 -1600 190 Weight 117.934 kg Intake: IV 10 Invasive Line 1 10 Intake, IV Titration 200 Amount Sodium Chloride 0.9% 1, 200 000 ml @ 20 mls/hr IV . Q24H [facility] Rx#:[id number] Oral 100 180 Blood Product 279 0 Rc As-1 Unit 0 0 [id number] Rc Pheresis 2 As3 Unit 279 [id number] Output: Urine 600 1600 Other: Voiding Method External Catheter External Catheter - Exam -GENERAL: The patient is alert and oriented x3, not in any acute distress. Well developed, well nourished. Patient looks somewhat pale and tired HEENT: Pupils are round and equally reacting to light. EOMI. No scleral icterus. No conjunctival pallor. Normocephalic, atraumatic. No pharyngeal erythema. No thyromegaly. CARDIOVASCULAR: S1 and S2 present. No murmurs, rubs, or gallops. PULMONARY: Chest is clear to auscultation, no wheezing , no crackles. ABDOMEN: Soft, nontender, nondistended, normoactive bowel sounds. No palpable organomegaly. MUSCULOSKELETAL: No joint swelling or deformity. EXTREMITIES: No cyanosis, clubbing, or pedal edema. NEUROLOGICAL: Gross neurological examination did not reveal any focal deficits. SKIN: No rashes. no petechiae. - Labs CBC & Chem 7: 10/10/24 07:07 10/10/24 07:07 Labs: Abnormal Lab Results - Last 24 Hours (Table) 10/08/24 10/08/24 10/09/24 Range/Units 17:09 23:50 12:42 RBC (3.80-5.40) m/uL Hgb (11.4-16.0) gm/dL Hct (34.0-46.0) % MCH (25.0-35.0) pg MCHC (31.0-37.0) g/dL RDW (11.5-15.5) % Plt Count (150-450) k/uL Lymphocytes # (1.0-4.8) k/uL Sodium (137-145) mmol/L Chloride (98-107) mmol/L Carbon Dioxide (22-30) mmol/L BUN (7-17) mg/dL Creatinine (0.52-1.04) mg/dL Glucose (74-99) mg/dL POC Glucose (mg/dL) 191 H (70-110) mg/dL Calcium (8.4-10.2) mg/dL Urine Appearance Cloudy H (Clear) Urine Blood Large H (Negative) Ur Leukocyte Esterase Large H (Negative) Urine RBC 98 H (0-5) /hpf Urine WBC 103 H (0-5) /hpf Urine Bacteria Many H (None) /hpf Hyaline Casts 3 H (0-2) /lpf Crossmatch See Detail Blood Bank Comment Sent to [facility] 10/09/24 10/09/24 10/09/24 Range/Units 14:34 17:56 21:23 RBC 2.62 L (3.80-5.40) m/uL Hgb 6.3 L* (11.4-16.0) gm/dL Hct 21.5 L (34.0-46.0) % MCH 24.1 L (25.0-35.0) pg MCHC 29.5 L (31.0-37.0) g/dL RDW 18.7 H (11.5-15.5) % Plt Count (150-450) k/uL Lymphocytes # 0.6 L (1.0-4.8) k/uL Sodium (137-145) mmol/L Chloride (98-107) mmol/L Carbon Dioxide (22-30) mmol/L BUN (7-17) mg/dL Creatinine (0.52-1.04) mg/dL Glucose (74-99) mg/dL POC Glucose (mg/dL) 243 H 279 H (70-110) mg/dL Calcium (8.4-10.2) mg/dL Urine Appearance (Clear) Urine Blood (Negative) Ur Leukocyte Esterase (Negative) Urine RBC (0-5) /hpf Urine WBC (0-5) /hpf Urine Bacteria (None) /hpf Hyaline Casts (0-2) /lpf Crossmatch Blood Bank Comment 10/10/24 10/10/24 10/10/24 Range/Units 06:03 07:07 07:07 RBC 2.75 L (3.80-5.40) m/uL Hgb 6.9 L* (11.4-16.0) gm/dL Hct 22.6 L (34.0-46.0) % MCH (25.0-35.0) pg MCHC 30.6 L (31.0-37.0) g/dL RDW 18.6 H (11.5-15.5) % Plt Count 144 L (150-450) k/uL Lymphocytes # (1.0-4.8) k/uL Sodium 132 L (137-145) mmol/L Chloride 96 L (98-107) mmol/L Carbon Dioxide 36 H (22-30) mmol/L BUN 29 H (7-17) mg/dL Creatinine 1.05 H (0.52-1.04) mg/dL Glucose 136 H (74-99) mg/dL POC Glucose (mg/dL) 167 H (70-110) mg/dL Calcium 7.8 L (8.4-10.2) mg/dL Urine Appearance (Clear) Urine Blood (Negative) Ur Leukocyte Esterase (Negative) Urine RBC (0-5) /hpf Urine WBC (0-5) /hpf Urine Bacteria (None) /hpf Hyaline Casts (0-2) /lpf Crossmatch Blood Bank Comment Assessment and Plan Assessment: Acute blood loss severe anemia, present on admission. Acute on chronic diastolic CHF with ejection fraction 60 to 65% History of aortic valve replacement, mitral valve replacement and tricuspid valve repair on 05/2024 Diabetes mellitus Coronary artery disease Paroxysmal atrial fibrillation status post dual-chamber pacemaker Hypertension Hyperlipidemia Plan: Continue with the blood transfusion [facility] Cardiology team started the patient on aspirin for her A-fib while off [employer] GI team evaluated the patient, recommended EGD however patient was not cleared by reference services head yet. No GI service in this frail state during the weekend Continue with IV Protonix Continue with IV Lasix Resume cardiac medication Labs and medication were reviewed.. Continue same treatment. Continue with symptomatic treatment. Resume home medication. Monitor labs and vitals. DVT and GI prophylaxis. Further recommendations as per clinical course of the patient DVT prophylaxis: hold anticoagulation in view of severe anemia GI Prophylaxis: Protonix Prognosis is guarded
[2024-10-10 19:41] LABS: Glucose,Whole Blood 132 mg/dL (70-110)
[2024-10-10] MEDS: ATORVASTATIN 20 MG TAB PO SCH (19:43)
[2024-10-10] MEDS: METOPROLOL SUCCINATE (ER) 50 MG TAB.ER.24H PO SCH (19:43)
[2024-10-11 06:03] LABS: Glucose,Whole Blood 139 mg/dL (70-110)
[2024-10-11] MEDS: ASPIRIN 81 MG PO SCH (07:30)
[2024-10-11 10:56] LABS: Anisocytosis Slight; HCT 29.4 % (34.0-46.0); Hypochromasia Marked; MCH 25.3 pg (25.0-35.0); MCHC 30.3 g/dL (31.0-37.0); MCV 83.7 fL (80.0-100.0); Mean Platelet Volume 7.8; Platelet Count 158 k/uL (150-450); Poikilocytosis Moderate; RBC 3.51 m/uL (3.80-5.40); RDW 18.2 % (11.5-15.5); WBC 9.2 k/uL (3.8-10.6)
[2024-10-11 11:18] LABS: African American GFR (CKD) 53 (>60 ml/min/1.73 sqM); Anion Gap 5 mmol/L; Blood Urea Nitrogen 25 mg/dL (7-17); Carbon Dioxide 40 mmol/L (22-30); Chloride 91 mmol/L (98-107); Glucose 155 mg/dL (74-99); Non-African American GFR(CKD) 46 (>60 ml/min/1.73 sqM); Potassium 3.4 mmol/L (3.5-5.1); Sodium 136 mmol/L (137-145)
[2024-10-11 11:26] LABS: HGB 8.9 gm/dL (11.4-16.0)
[2024-10-11 11:29] LABS: Glucose,Whole Blood 203 mg/dL (70-110)
--- NOTE | 2024-10-11 14:17 | P.PN ---
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 She complains that ever since her heart surgery at [facility] she has felt short of breath and did not get any real improvement from the procedure. She denies having any chest pain or chest pressure. She complains her shortness of breath recently worsened and she had to turn her oxygen up. She denies abdominal pain although endorses lack of radha etite. Patient states her stools are very dark but not black. Blood pressure 116/60, heart rate 100, pulse ox 99% on CPAP. [facility] 5[facility] Patient presents reports of dyspnea. Patient states her breathing is better today No chest pain Currently she is getting blood transfusion Patient had severe anemia on admission with hemoglobin 5.5 and 6.3, after blood transfusion 6.9 GI team saw her yesterday but patient was not cleared by station jailer to undergo EGD which is held now Patient remains on IV Protonix Eliquis is on hold for her A-fib and other cardiac diseases Also she was placed on IV Lasix 40 mg twice daily given her acute CHF. And also on review of her blood transfusion Cardiology team added aspirin 81 mg while she is off Eliquis Ejection fraction is 60-65 percent, severe pulmonary hypertension with RVSP is 56 Hemoglobin A1c is elevated at 7.5% 10/11 Patient sitting at the edge of the bed She is still complaining from some dyspnea but improving. Still complaining from 2-3+ bilateral pitting leg edema. Also patient drinking a lot of water, she was counseled extensively about fluid restriction and she agrees She is kept on IV Lasix 40 mg twice daily. Fluid restriction is added Currently her Eliquis is on hold and she was started on aspirin 81 mg Patient evaluated by GI team however she was not cleared to undergo EGD/colonoscopy by station jailer. Patient status 3 units of blood transfusion and hemoglobin improved to 8.9 Hemoglobin A1c 7.5 Ejection fraction 60 to 65% with severe pulmonary hypertension with RVSP at 56 Patient also is on IV Protonix Review of systems CONSTITUTIONAL: No fever, no malaise, no fatigue. HEENT: No recent visual problems or hearing problems. HEMATOLOGICAL: Denies any bleeding or petechiae. GENITOURINARY: Denies any burning micturition, frequency, or urgency. MUSCULOSKELETAL/RHEUMATOLOGICAL: Denies any joint pain, swelling, or any muscle pain. ENDOCRINE: Denies any polyuria or polydipsia. Active Medications Generic Name Dose Route Start Last Admin Trade Name Freq PRN Reason Stop Dose Admin Aspirin 81 mg 10/11/24 09:00 10/11/24 07:30 Aspirin 81 Mg PO 81 mg DAILY LILIYA Administration Atorvastatin Calcium 20 mg 10/10/24 21:00 10/10/24 19:43 Atorvastatin 20 Mg Tab PO 20 mg HS LILIYA Administration Dextrose/Water 25 ml 10/08/24 22:31 Dextrose 50% Syringe 50 Ml IVP PER PROTOCOL PRN Hypoglycemia Protocol Dextrose/Water 50 ml 10/08/24 22:31 Dextrose 50% Syringe 50 Ml IVP PER PROTOCOL PRN Hypoglycemia Protocol Fluoxetine HCl 10 mg 10/09/24 09:00 10/11/24 07:30 Fluoxetine Hcl 10 Mg Cap PO 10 mg DAILY LILIYA Administration Furosemide 40 mg 10/09/24 21:00 10/11/24 07:30 Furosemide 10 Mg/Ml 4 Ml Vial IV 40 mg BID LILIYA Administration Insulin Aspart 0 unit 10/09/24 07:30 10/11/24 11:56 Insulin Aspart (Novolog) 100 Unit/Ml Vial SQ 15 unit ACHS LILIYA Administration Protocol Insulin Detemir 20 unit 10/09/24 21:00 10/10/24 19:42 Insulin Detemir (Levemir) 100 Unit/Ml Syr SQ 20 unit HS LILIYA Administration Levothyroxine Sodium 176 mcg 10/09/24 06:30 10/11/24 06:17 Levothyroxine 88 Mcg Tab PO 176 mcg DAILY@0630 LILIYA Administration Metolazone 10 mg 10/09/24 20:30 10/11/24 07:31 Metolazone 5 Mg Tab PO 10 mg DAILY LILIYA Administration Metoprolol Succinate 50 mg 10/10/24 21:00 10/11/24 07:30 Metoprolol Succinate (Er) 50 Mg Tab.Er.24h PO 50 mg BID LILIYA Administration Naloxone HCl 0.2 mg 10/08/24 19:48 Naloxone 0.4 Mg/Ml 1 Ml Vial IV Q2M PRN Opioid Reversal Pantoprazole Sodium 40 mg 10/08/24 21:00 10/11/24 07:31 Pantoprazole 40 Mg/10 Ml Vial IV 40 mg BID LILIYA Administration Senna 8.6 mg 10/10/24 16:43 Sennosides 8.6 Mg Tab PO DAILY PRN Constipation Spironolactone 25 mg 10/10/24 15:30 10/11/24 07:31 Spironolactone 25 Mg Tab PO 25 mg DAILY LILIYA Administration Objective - Vital Signs Vital signs: Vital Signs Temp 97.5 F L 10/11/24 07:14 Pulse 63 10/11/24 11:34 Resp 18 10/11/24 11:34 BP 117/62 10/11/24 11:34 Pulse Ox 98 10/11/24 11:34 FiO2 Intake & Output 10/10/24 10/11/24 10/11/24 18:59 06:59 18:59 Intake Total 870 368 Output Total 1150 850 850 Balance -987 -583 -872 Intake: IV 20 8 Invasive Line 1 20 8 Oral 540 360 Blood Product 310 Rc As-1 Unit 310 [id number] Output: Urine 1150 850 850 Other: Voiding Method External Catheter External Catheter External Catheter # Voids 3 1 # Bowel Movements 1 - Exam -GENERAL: The patient is alert and oriented x3, not in any acute distress. Well developed, well nourished. Patient looks somewhat pale and tired HEENT: Pupils are round and equally reacting to light. EOMI. No scleral icterus. No conjunctival pallor. Normocephalic, atraumatic. No pharyngeal erythema. No thyromegaly. CARDIOVASCULAR: S1 and S2 present. No murmurs, rubs, or gallops. -PULMONARY: Chest is clear to auscultation, no wheezing , bilateral basal crackles. ABDOMEN: Soft, nontender, nondistended, normoactive bowel sounds. No palpable organomegaly. MUSCULOSKELETAL: No joint swelling or deformity. -EXTREMITIES: No cyanosis, clubbing,. Bilateral pitting leg edema. NEUROLOGICAL: Gross neurological examination did not reveal any focal deficits. SKIN: No rashes. no petechiae. - Labs CBC & Chem 7: 10/11/24 09:49 10/11/24 09:49 Labs: Abnormal Lab Results - Last 24 Hours (Table) 10/08/24 10/10/2410/10/24 Range/Units 23:50 16:32 19:40 RBC (3.80-5.40) m/uL Hgb (11.4-16.0) gm/dL Hct (34.0-46.0) % MCHC (31.0-37.0) g/dL RDW (11.5-15.5) % Sodium (137-145) mmol/L Potassium (3.5-5.1) mmol/L Chloride (98-107) mmol/L Carbon Dioxide (22-30) mmol/L BUN (7-17) mg/dL Creatinine (0.52-1.04) mg/dL Glucose (74-99) mg/dL POC Glucose (mg/dL) 207 H 132 H (70-110) mg/dL Calcium (8.4-10.2) mg/dL Crossmatch See Detail Reference Lab Result See [facility] REF Reports A 10/11/24 10/11/24 10/11/24 Range/Units 06:01 09:49 09:49 RBC 3.51 L (3.80-5.40) m/uL Hgb 8.9 L D (11.4-16.0) gm/dL Hct 29.4 L (34.0-46.0) % MCHC 30.3 L (31.0-37.0) g/dL RDW 18.2 H (11.5-15.5) % Sodium 136 L (137-145) mmol/L Potassium 3.4 L (3.5-5.1) mmol/L Chloride 91 L (98-107) mmol/L Carbon Dioxide 40 H (22-30) mmol/L BUN 25 H (7-17) mg/dL Creatinine 1.15 H (0.52-1.04) mg/dL Glucose 155 H (74-99) mg/dL POC Glucose (mg/dL) 139 H (70-110) mg/dL Calcium 8.0 L (8.4-10.2) mg/dL Crossmatch Reference Lab Result 10/11/24 Range/Units 11:27 RBC (3.80-5.40) m/uL Hgb (11.4-16.0) gm/dL Hct (34.0-46.0) % MCHC (31.0-37.0) g/dL RDW (11.5-15.5) % Sodium (137-145) mmol/L Potassium (3.5-5.1) mmol/L Chloride (98-107) mmol/L Carbon Dioxide (22-30) mmol/L BUN (7-17) mg/dL Creatinine (0.52-1.04) mg/dL Glucose (74-99) mg/dL POC Glucose (mg/dL) 203 H (70-110) mg/dL Calcium (8.4-10.2) mg/dL Crossmatch Reference Lab Result Assessment and Plan Assessment: Acute blood loss severe anemia, present on admission. Acute on chronic diastolic CHF with ejection fraction 60 to 65% History of aortic valve replacement, mitral valve replacement and tricuspid valve repair on 05/2024 Diabetes mellitus Coronary artery disease Paroxysmal atrial fibrillation status post dual-chamber pacemaker Hypertension Hyperlipidemia Plan: S/p blood transfusion, blood hemoglobin improved. Keep monitoring Eliquis is on hold and patient was started on aspirin by station jailer GI team evaluated the patient, recommended EGD however patient was not cleared by station jailer yet. No GI service in this frail state during the weekend Continue with IV Protonix Continue with IV Lasix And fluid restriction Resume cardiac medication Labs and medication were reviewed.. Continue same treatment. Continue with symptomatic treatment. Resume home medication. Monitor labs and vitals. DVT and GI prophylaxis. Further recommendations as per clinical course of the patient DVT prophylaxis: hold anticoagulation in view of severe anemia GI Prophylaxis: Protonix Prognosis is guarded
[2024-10-11 16:13] LABS: Glucose,Whole Blood 218 mg/dL (70-110)
[2024-10-11] MEDS: POTASSIUM CHLORIDE ER 20 MEQ TAB.ER PO STA (17:13)
--- NOTE | 2024-10-11 18:25 | P.PN ---
Subjective Progress Note Date: 10/11/24 This is a 79-year-old female patient of Dr. 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 We have been asked to evaluate the patient for CHF. Patient presented to the emergency center due to severe weakness and shortness of breath. Patient underwent aortic valve replacement, mitral valve replacement and tricuspid valve repair at [facility] in May of this year. She has had follow-up with Dr. Watson with complaints of continued limited physical activity, dyspnea and peripheral edema and fatigue. She has not felt any real improvement of her symptoms since she had her surgery and is disappointed about that. She denies having any chest pain or chest pressure. Her shortness of breath seems to be worsening and she has had significantly worse edema extending into her abdomen. She apparently has also been started on home oxygen which she is increased to 7 L. Regarding anemia, patient did receive 3 to 4 units after her surgery in May and she has had follow-up lab work done in July with her PCP and she was not contacted about any abnormality at that time. Also, patient is not eating or drinking very much. She states she has no appetite and has lost her sense of taste since the surgery. She denies any abdominal pain. Daughter states that she has had a distended abdomen for few weeks that waxes and wanes. Patient states her stools are very dark but not black. She has not been on iron at home. She has been taking baby aspirin and Eliquis although aspirin is not listed on her home medication list. She denies any vaginal bleeding. Blood pressure 116/60, heart rate 100, pulse ox 99% on CPAP. Patient is seen today in the emergency center waiting for a bed on the cardiac stepdown unit. Eliquis has been placed on hold. Patient has been seen by GI with plan for EGD tomorrow if cleared by cardiology. -EKG: Atrial paced rhythm -Chest x-ray: Cardiomegaly, pulmonary vascular congestion and bilateral pleural effusions. -Laboratory studies: Hemoglobin initially 6.2 now 5.5. Sodium 134, BUN 32 and creatinine 0.91. Hemoglobin A1c 7.5. Troponin 0.065, 0.052, 0.048. proBNP 2830. -Home cardiac medications: Eliquis 5 mg twice daily, Lasix 20 mg twice daily, Imdur 30 mg daily, Toprol-XL 50 mg daily, Crestor 40 mg at bedtime, also on levothyroxine 175 mcg daily. -Echocardiogram performed 05/24/2024 revealed normal EF, prosthetic AV, prosthetic MV, TV repair. -Cardiovascular surgery 05/20/2024: Tissue AVR, tissue MVR, TV repair -Previous CV surgery 11/06/2018: TAVR. -Cardiac catheterization 2020 with stent placed in the mid D1, stent in the ostial PDA. October 11 Patient's creatinine slightly trended up. She is continuing to have good urine output. Will continue IV diuretics at this time. Hemoglobin has been stable. Physical examination: Gen: This is a 79-year-old female in no acute distress VS: reviewed HEENT: Head is atraumatic, normocephalic. Pupils equal, round. Sclerae is anicteric. NECK: Supple. No JVD. LUNGS: Clear to auscultation. No wheezes or rhonchi. No intercostal retractions. HEART: Regular rate and rhythm. 2/6 systolic ejection murmur at the base, 2/6 holosystolic murmur at the apex. ABDOMEN: Soft No tenderness. EXTREMITIES: Significant lower extremity edema including the thighs and lower abdomen. No calf tenderness. NEUROLOGICAL: Patient is awake, alert and oriented x3. Assessment: Acute diastolic heart failure Severe anemia, scheduled for transfusion packed RBCs Probable acute blood loss anemia secondary to acute on chronic GI bleed History of aortic valve replacement, mitral valve replacement, tricuspid valve repair May 2024 at [facility] Coronary artery disease with prior stenting Dual-chamber pacemaker, [facility] [place], November 2017 Paroxysmal atrial fibrillation on Eliquis Hyperlipidemia Diabetes mellitus type 2 Hypertension Echocardiogram showed EF of 60%, normally functioning bioprosthetic mitral valve with mild stenosis, normally functioning bioprosthetic aortic valve with no significant PVL or stenosis. Plan: Resume patient's home cardiac medications Start patient on IV Lasix 40 mg every 12 hours Continue metolazone, add Aldactone 25 mg daily today. Increase metoprolol to 50 mg twice daily to achieve a lower heart rate to decrease the effect of mild mitral stenosis. Replace blood as needed, keep hemoglobin above 7. Monitor ALICIA, daily weights, electrolytes and renal function Interrogate pacemaker Due to severe degree of heart failure, edema and anasarca, discussed case with GI and would not recommend moving forward with endoscopy at this point. Endoscopy has been canceled. Further recommendations to follow based upon clinical course . Objective - Vital Signs Vital signs: Vital Signs Temp 97.4 F L 10/11/24 17:48 Pulse 62 10/11/24 17:48 Resp 18 10/11/24 17:48 BP 136/76 10/11/24 17:48 Pulse Ox 95 10/11/24 17:48 FiO2 Intake & Output 10/10/24 10/11/24 10/11/24 18:59 06:59 18:59 Intake Total 870 548 Output Total 1150 850 850 Balance -280 -850 -302 Intake: IV 20 8 Invasive Line 1 20 8 Oral 540 540 Blood Product 310 Rc As-1 Unit 310 [id number] Output: Urine 1150 850 850 Other: Voiding Method External Catheter External Catheter External Catheter # Voids 3 1 # Bowel Movements 1 - Labs CBC & Chem 7: 10/11/24 09:49 10/11/24 09:49 Labs: Abnormal Lab Results - Last 24 Hours (Table) 10/08/24 10/10/24 10/11/24 Range/Units 23:50 19:40 06:01 RBC (3.80-5.40) m/uL Hgb (11.4-16.0) gm/dL Hct (34.0-46.0) % MCHC (31.0-37.0) g/dL RDW (11.5-15.5) % Sodium (137-145) mmol/L Potassium (3.5-5.1) mmol/L Chloride (98-107) mmol/L Carbon Dioxide (22-30) mmol/L BUN (7-17) mg/dL Creatinine (0.52-1.04) mg/dL Glucose (74-99) mg/dL POC Glucose (mg/dL) 132 H 139 H (70-110) mg/dL Calcium (8.4-10.2) mg/dL Reference Lab Result See [facility] REF Reports A 10/11/24 10/11/24 10/11/24 Range/Units 09:49 09:49 11:27 RBC 3.51 L (3.80-5.40) m/uL Hgb 8.9 L D (11.4-16.0) gm/dL Hct 29.4 L (34.0-46.0) % MCHC 30.3 L (31.0-37.0) g/dL RDW 18.2 H (11.5-15.5) % Sodium 136 L (137-145) mmol/L Potassium 3.4 L (3.5-5.1) mmol/L Chloride 91 L (98-107) mmol/L Carbon Dioxide 40 H (22-30) mmol/L BUN 25 H (7-17) mg/dL Creatinine 1.15 H (0.52-1.04) mg/dL Glucose 155 H (74-99) mg/dL POC Glucose (mg/dL) 203 H (70-110) mg/dL Calcium 8.0 L (8.4-10.2) mg/dL Reference Lab Result 10/11/24 Range/Units 16:11 RBC (3.80-5.40) m/uL Hgb (11.4-16.0) gm/dL Hct (34.0-46.0) % MCHC (31.0-37.0) g/dL RDW (11.5-15.5) % Sodium (137-145) mmol/L Potassium (3.5-5.1) mmol/L Chloride (98-107) mmol/L Carbon Dioxide (22-30) mmol/L BUN (7-17) mg/dL Creatinine (0.52-1.04) mg/dL Glucose (74-99) mg/dL POC Glucose (mg/dL) 218 H (70-110) mg/dL Calcium (8.4-10.2) mg/dL Reference Lab Result
[2024-10-11 20:08] LABS: Glucose,Whole Blood 161 mg/dL (70-110)
[2024-10-12 05:57] LABS: Glucose,Whole Blood 142 mg/dL (70-110)
[2024-10-12 06:59] LABS: Anisocytosis Slight; Basophils % (A) 0 %; Eosinophils # (A) 0.2 k/uL (0-0.7); Eosinophils % (A) 3 %; HCT 26.8 % (34.0-46.0); HGB 8.1 gm/dL (11.4-16.0); Hypochromasia Marked; Lymphocytes # (A) 0.8 k/uL (1.0-4.8); Lymphocytes % (A) 11 %; MCH 25.1 pg (25.0-35.0); MCHC 30.1 g/dL (31.0-37.0); MCV 83.5 fL (80.0-100.0); Mean Platelet Volume 7.6; Monocytes # (A) 0.4 k/uL (0-1.0); Monocytes % (A) 6 %; Neutrophils # (A) 5.6 k/uL (1.3-7.7); Neutrophils % (A) 78 %; Platelet Count 122 k/uL (150-450); Poikilocytosis Moderate; RBC 3.21 m/uL (3.80-5.40); WBC 7.1 k/uL (3.8-10.6)
[2024-10-12 07:16] LABS: African American GFR (CKD) 60 (>60 ml/min/1.73 sqM); Blood Urea Nitrogen 21 mg/dL (7-17); Chloride 92 mmol/L (98-107); Glucose 121 mg/dL (74-99); Magnesium 1.9 mg/dL (1.6-2.3); Non-African American GFR(CKD) 52 (>60 ml/min/1.73 sqM); Potassium 3.9 mmol/L (3.5-5.1); Sodium 136 mmol/L (137-145)
[2024-10-12 07:23] LABS: Anion Gap 5 mmol/L
[2024-10-12 07:48] LABS: Carbon Dioxide 39 mmol/L (22-30)
[2024-10-12 11:45] LABS: Glucose,Whole Blood 182 mg/dL (70-110)
--- NOTE | 2024-10-12 14:15 | P.PN ---
Subjective HISTORY OF PRESENT ILLNESS: This is a 79-year-old female patient of Dr. 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 We have been asked to evaluate the patient for CHF. Patient presented to the emergency center due to severe weakness and shortness of breath. Patient underwent aortic valve replacement, mitral valve replacement and tricuspid valve repair at [facility] in May of this year. She has had follow-up with Dr. Watson with complaints of continued limited physical activity, dyspnea and peripheral edema and fatigue. She has not felt any real improvement of her symptoms since she had her surgery and is disappointed about that. She denies having any chest pain or chest pressure. Her shortness of breath seems to be worsening and she has had significantly worse edema extending into her abdomen. She apparently has also been started on home oxygen which she is increased to 7 L. Regarding anemia, patient did receive 3 to 4 units after her surgery in May and she has had follow-up lab work done in July with her PCP and she was not contacted about any abnormality at that time. Also, patient is not eating or drinking very much. She states she has no appetite and has lost her sense of taste since the surgery. She denies any abdominal pain. Daughter states that she has had a distended abdomen for few weeks that waxes and wanes. Patient states her stools are very dark but not black. She has not been on iron at home. She has been taking baby aspirin and Eliquis although aspirin is not listed on her home medication list. She denies any vaginal bleeding. Blood pressure 116/60, heart rate 100, pulse ox 99% on CPAP. Patient is seen today in the emergency center waiting for a bed on the cardiac stepdown unit. Eliquis has been placed on hold. Patient has been seen by GI with plan for EGD tomorrow if cleared by cardiology. -EKG: Atrial paced rhythm -Chest x-ray: Cardiomegaly, pulmonary vascular congestion and bilateral pleural effusions. -Laboratory studies: Hemoglobin initially 6.2 now 5.5. Sodium 134, BUN 32 and creatinine 0.91. Hemoglobin A1c 7.5. Troponin 0.065, 0.052, 0.048. proBNP 2830. -Home cardiac medications: Eliquis 5 mg twice daily, Lasix 20 mg twice daily, Imdur 30 mg daily, Toprol-XL 50 mg daily, Crestor 40 mg at bedtime, also on levothyroxine 175 mcg daily. -Echocardiogram performed 05/24/2024 revealed normal EF, prosthetic AV, prosthetic MV, TV repair. -Cardiovascular surgery 05/20/2024: Tissue AVR, tissue MVR, TV repair -Previous CV surgery 11/06/2018: TAVR. -Cardiac catheterization 2020 with stent placed in the mid D1, stent in the ostial PDA. 10/12/2024 Patient examined this morning at the bedside. Patient currently denies chest pain or pressure. She denies shortness of breath. She continues to have significant lower extremity edema. Patient is feeling ember at the bedside also reports she has a lot of swelling around her abdomen which is not normal for her. Echocardiogram completed revealing ejection fraction 60 to 65%, status post mitral valve replacement, mild mitral stenosis, mean gradient 6 mmHg, aortic valve replacement with no perivalvular aortic regurgitation, moderate to severe pulmonary hypertension. Hemoglobin today 8.1. Telemetry reveals paced rhythm at 60. PHYSICAL EXAM: VITAL SIGNS: Reviewed. GENERAL: Well-developed in no acute distress. NECK: Supple. No JVD or thyromegaly LUNGS: Respirations even and unlabored. Lungs essentially clear to auscultation bilaterally. HEART: Regular rate and rhythm. S1 and S2 heard. Systolic murmur noted. EXTREMITIES: Normal range of motion. No clubbing or cyanosis. Peripheral p ulses intact. 3+ pitting bilateral lower extremity edema ASSESSMENT: Acute diastolic heart failure Severe anemia, status post RBC transfusion, endoscopy canceled secondary to heart failure Probable acute blood loss anemia secondary to acute on chronic GI bleed History of aortic valve replacement, mitral valve replacement, tricuspid valve repair May 2024 at [facility] Coronary artery disease with prior stenting Dual-chamber pacemaker, [facility] [place], November 2017 Paroxysmal atrial fibrillation on Eliquis Hyperlipidemia Diabetes mellitus type 2 Hypertension Moderate to severe pulmonary hypertension PLAN: Continue to monitor hemoglobin. Eliquis remains on hold. Increase Lasix to 40 mg every 8 hours Daily weights, accurate intake and output, and monitoring of kidney function Decrease Zaroxolyn to 5 mg daily Further recommendations pending patient course Nurse practitioner note has been reviewed by physician. Signing provider agrees with the documented findings, assessment, and plan of care documented by [employer] as a scribe. Objective - Vital Signs Vital signs: Vital Signs Temp 97.9 F 10/12/24 08:00 Pulse 61 10/12/24 08:00 Resp 16 10/12/24 08:00 BP 115/59 10/12/24 08:00 Pulse Ox 96 10/12/24 08:27 FiO2 Intake & Output 10/11/24 10/12/24 10/12/24 18:59 06:59 18:59 Intake Total 548 240 Output Total 850 1600 Balance -302 -1600 240 Intake: IV 8 Invasive Line 1 8 Oral 540 240 Output: Urine 850 1600 Other: Voiding Method External Catheter External Catheter External Catheter # Voids 1 # Bowel Movements 1 - Labs CBC & Chem 7: 10/12/24 06:39 10/12/24 06:39 Labs: Abnormal Lab Results - Last 24 Hours (Table) 10/08/24 10/11/24 10/11/24 Range/Units 23:50 16:11 20:07 RBC (3.80-5.40) m/uL Hgb (11.4-16.0) gm/dL Hct (34.0-46.0) % MCHC (31.0-37.0) g/dL RDW (11.5-15.5) % Plt Count (150-450) k/uL Lymphocytes # (1.0-4.8) k/uL Sodium (137-145) mmol/L Chloride (98-107) mmol/L Carbon Dioxide (22-30) mmol/L BUN (7-17) mg/dL Glucose (74-99) mg/dL POC Glucose (mg/dL) 218 H 161 H (70-110) mg/dL Calcium (8.4-10.2) mg/dL Crossmatch See Detail 10/12/24 10/12/24 10/12/24 Range/Units 05:56 06:39 06:39 RBC 3.21 L (3.80-5.40) m/uL Hgb 8.1 L (11.4-16.0) gm/dL Hct 26.8 L (34.0-46.0) % MCHC 30.1 L (31.0-37.0) g/dL RDW 18.0 H (11.5-15.5) % Plt Count 122 L (150-450) k/uL Lymphocytes # 0.8 L (1.0-4.8) k/uL Sodium 136 L (137-145) mmol/L Chloride 92 L (98-107) mmol/L Carbon Dioxide 39 H (22-30) mmol/L BUN 21 H (7-17) mg/dL Glucose 121 H (74-99) mg/dL POC Glucose (mg/dL) 142 H (70-110) mg/dL Calcium 8.0 L (8.4-10.2) mg/dL Crossmatch
[2024-10-12 16:42] LABS: Glucose,Whole Blood 227 mg/dL (70-110)
[2024-10-12] MEDS: FUROSEMIDE 10 MG/ML 4 ML VIAL IV SCH (17:01)
[2024-10-12 19:54] LABS: Glucose,Whole Blood 259 mg/dL (70-110)
--- NOTE | 2024-10-12 21:31 | P.PN ---
Subjective Progress Note Date: 10/12/24 Vamsi Alexandre is a 72 year-old male with past medical history of coronary artery disease, paroxysmal atrial fibrillation on Eliquis, ischemic cardiomyopathy, who presented to the ED complaining of chest pain. He describes a tightness across his entire chest that happened after he was exerting himself but then did not resolve so he came to the ED. He does report BP intermittently going high and patient also complains of lower extremity edema right greater than left. On presentation blood pressure 109/86, heart rate 65, pulse ox 97% on room air, EKG NSR, WBC 6.9 Hgb 11.6, BUN 25 Cr 2.84. Trop 0.041, 0.042, 0.051. BNP 1690. 10/10 Patient complains from some His dyspnea is off on all as he explains, worse when he lays down He denies chest pain] Vital stable His creatinine 2.8 and 2.7 indicative of chronic kidney disease His troponin were mildly elevated 0.04 and 0.05. [employer] team are planning for cardiac cath on Saturday morning Nephrology team were consulted Chest x-ray is negative Echocardiogram showing ejection fraction 40 to 45% with hypokinetic basal and inferior wall 10/11 Patient with no chest pain. Dyspnea improved. No leg swelling No other complaint Is currently on aspirin 81 mg, Eliquis is on hold for his paroxysmal A-fib Also he is currently not on heparin drip. IV Lasix also was discontinued Creatinine stable at 2.8. Hemoglobin stable at 11.8 Renal ultrasound showing no hydronephrosis, I reviewed and agree Lisinopril dose lowered to 10 mg and Norvasc dose lowered to 5 mg. Patient continued on metoprolol 75 mg 10/12 Her Hgb is stable at 8.2 this morning, she denies shortness of breath. Eliquis remains on hold. Objective - Vital Signs Vital signs: Vital Signs Temp 98.4 F 10/12/24 19:49 Pulse 62 10/12/24 19:49 Resp 16 10/12/24 19:49 BP 181/79 10/12/24 19:49 Pulse Ox 98 10/12/24 19:49 FiO2 Intake & Output 10/12/24 10/12/24 10/13/24 06:59 18:59 06:59 Intake Total 240 Output Total 1600 750 800 Balance -1600 -510 -800 Intake: Oral 240 Output: Urine 1600 750 800 Other: Voiding Method External Catheter External Catheter External Catheter - Exam Gen: elderly female in NAD HEENT: On CPAP machine CV: Irregular, no murmur Lungs; CTAB - Labs CBC & Chem 7: 10/12/24 06:39 10/12/24 06:39 Labs: Abnormal Lab Results - Last 24 Hours (Table) 10/08/24 10/12/24 10/12/24 Range/Units 23:50 05:56 06:39 RBC 3.21 L (3.80-5.40) m/uL Hgb 8.1 L (11.4-16.0) gm/dL Hct 26.8 L (34.0-46.0) % MCHC 30.1 L (31.0-37.0) g/dL RDW 18.0 H (11.5-15.5) % Plt Count 122 L (150-450) k/uL Lymphocytes # 0.8 L (1.0-4.8) k/uL Sodium (137-145) mmol/L Chloride (98-107) mmol/L Carbon Dioxide (22-30) mmol/L BUN (7-17) mg/dL Glucose (74-99) mg/dL POC Glucose (mg/dL) 142 H (70-110) mg/dL Calcium (8.4-10.2) mg/dL Crossmatch See Detail 10/12/24 10/12/24 10/12/24 Range/Units 06:39 11:41 16:41 RBC (3.80-5.40) m/uL Hgb (11.4-16.0) gm/dL Hct (34.0-46.0) % MCHC (31.0-37.0) g/dL RDW (11.5-15.5) % Plt Count (150-450) k/uL Lymphocytes # (1.0-4.8) k/uL Sodium 136 L (137-145) mmol/L Chloride 92 L (98-107) mmol/L Carbon Dioxide 39 H (22-30) mmol/L BUN 21 H (7-17) mg/dL Glucose 121 H (74-99) mg/dL POC Glucose (mg/dL) 182 H 227 H (70-110) mg/dL Calcium 8.0 L (8.4-10.2) mg/dL Crossmatch 10/12/24 Range/Units 19:53 RBC (3.80-5.40) m/uL Hgb (11.4-16.0) gm/dL Hct (34.0-46.0) % MCHC (31.0-37.0) g/dL RDW (11.5-15.5) % Plt Count (150-450) k/uL Lymphocytes # (1.0-4.8) k/uL Sodium (137-145) mmol/L Chloride (98-107) mmol/L Carbon Dioxide (22-30) mmol/L BUN (7-17) mg/dL Glucose (74-99) mg/dL POC Glucose (mg/dL) 259 H (70-110) mg/dL Calcium (8.4-10.2) mg/dL Crossmatch Assessment and Plan Plan: Closely monitor hgb, eliquis per cardiology. Continue with ASA. Continue
[2024-10-13 06:16] LABS: Glucose,Whole Blood 183 mg/dL (70-110)
[2024-10-13 07:06] LABS: Anisocytosis Slight; Basophils % (A) 0 %; Eosinophils # (A) 0.2 k/uL (0-0.7); Eosinophils % (A) 3 %; HCT 27.3 % (34.0-46.0); HGB 8.2 gm/dL (11.4-16.0); Hypochromasia Marked; Lymphocytes # (A) 0.6 k/uL (1.0-4.8); Lymphocytes % (A) 9 %; MCH 25.1 pg (25.0-35.0); MCV 83.8 fL (80.0-100.0); Mean Platelet Volume 8.3; Monocytes # (A) 0.5 k/uL (0-1.0); Monocytes % (A) 7 %; Neutrophils % (A) 79 %; Platelet Count 127 k/uL (150-450); Poikilocytosis Moderate; RBC 3.25 m/uL (3.80-5.40); RDW 18.5 % (11.5-15.5); WBC 6.4 k/uL (3.8-10.6)
[2024-10-13 07:20] LABS: African American GFR (CKD) 60 (>60 ml/min/1.73 sqM); Blood Urea Nitrogen 19 mg/dL (7-17); Chloride 86 mmol/L (98-107); Glucose 169 mg/dL (74-99); Magnesium 1.8 mg/dL (1.6-2.3); Non-African American GFR(CKD) 52 (>60 ml/min/1.73 sqM); Potassium 3.1 mmol/L (3.5-5.1); Sodium 136 mmol/L (137-145)
[2024-10-13 07:36] LABS: Anion Gap 8 mmol/L
[2024-10-13 07:41] LABS: Carbon Dioxide 42 mmol/L (22-30)
[2024-10-13] MEDS: metOLazone 5 MG TAB PO SCH (09:17)
[2024-10-13] MEDS: POTASSIUM CHLORIDE ER 20 MEQ TAB.ER PO STA (09:17)
[2024-10-13 11:33] LABS: Glucose,Whole Blood 292 mg/dL (70-110)
--- NOTE | 2024-10-13 12:35 | P.PN ---
Subjective HISTORY OF PRESENT ILLNESS: This is a 79-year-old female patient of Dr. 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 We have been asked to evaluate the patient for CHF. Patient presented to the emergency center due to severe weakness and shortness of breath. Patient underwent aortic valve replacement, mitral valve replacement and tricuspid valve repair at [facility] in May of this year. She has had follow-up with Dr. Watson with complaints of continued limited physical activity, dyspnea and peripheral edema and fatigue. She has not felt any real improvement of her symptoms since she had her surgery and is disappointed about that. She denies having any chest pain or chest pressure. Her shortness of breath seems to be worsening and she has had significantly worse edema extending into her abdomen. She apparently has also been started on home oxygen which she is increased to 7 L. Regarding anemia, patient did receive 3 to 4 units after her surgery in May and she has had follow-up lab work done in July with her PCP and she was not contacted about any abnormality at that time. Also, patient is not eating or drinking very much. She states she has no appetite and has lost her sense of taste since the surgery. She denies any abdominal pain. Daughter states that she has had a distended abdomen for few weeks that waxes and wanes. Patient states her stools are very dark but not black. She has not been on iron at home. She has been taking baby aspirin and Eliquis although aspirin is not listed on her home medication list. She denies any vaginal bleeding. Blood pressure 116/60, heart rate 100, pulse ox 99% on CPAP. Patient is seen today in the emergency center waiting for a bed on the cardiac stepdown unit. Eliquis has been placed on hold. Patient has been seen by GI with plan for EGD tomorrow if cleared by cardiology. -EKG: Atrial paced rhythm -Chest x-ray: Cardiomegaly, pulmonary vascular congestion and bilateral pleural effusions. -Laboratory studies: Hemoglobin initially 6.2 now 5.5. Sodium 134, BUN 32 and creatinine 0.91. Hemoglobin A1c 7.5. Troponin 0.065, 0.052, 0.048. proBNP 2830. -Home cardiac medications: Eliquis 5 mg twice daily, Lasix 20 mg twice daily, Imdur 30 mg daily, Toprol-XL 50 mg daily, Crestor 40 mg at bedtime, also on levothyroxine 175 mcg daily. -Echocardiogram performed 05/24/2024 revealed normal EF, prosthetic AV, prosthetic MV, TV repair. -Cardiovascular surgery 05/20/2024: Tissue AVR, tissue MVR, TV repair -Previous CV surgery 11/06/2018: TAVR. -Cardiac catheterization 2020 with stent placed in the mid D1, stent in the ostial PDA. 10/12/2024 Patient examined this morning at the bedside. Patient currently denies chest pain or pressure. She denies shortness of breath. She continues to have significant lower extremity edema. Patient is feeling ember at the bedside also reports she has a lot of swelling around her abdomen which is not normal for her. Echocardiogram completed revealing ejection fraction 60 to 65%, status post mitral valve replacement, mild mitral stenosis, mean gradient 6 mmHg, aortic valve replacement with no perivalvular aortic regurgitation, moderate to severe pulmonary hypertension. Hemoglobin today 8.1. Telemetry reveals paced rhythm at 60. 10/13/2024 Patient examined this morning at the bedside. Patient is currently sitting up in the chair. Patient currently denies chest pain or pressure. She denies shortness of breath. She remains on IV diuretics. She continues to have lower extremity edema. CO2 42 today. She has been started on Diamox per pulmonary medicine. blood pressure 118/63. BUN 19. Creatinine 1.04. Hemoglobin today 8.2. Eliquis remains on hold. Telemetry reveals paced rhythm. PHYSICAL EXAM: VITAL SIGNS: Reviewed. GENERAL: Well-developed in no acute distress. NECK: Supple. No JVD or thyromegaly LUNGS: Respirations even and unlabored. Lungs essentially clear to auscultation bilaterally. HEART: Regular rate and rhythm. S1 and S2 heard. Systolic murmur noted. EXTREMITIES: Normal range of motion. No clubbing or cyanosis. Peripheral pulses intact. 3+ pitting bilateral lower extremity edema ASSESSMENT: Acute diastolic heart failure Severe anemia, status post RBC transfusion, endoscopy canceled secondary to heart failure Probable acute blood loss anemia secondary to acute on chronic GI bleed History of aortic valve replacement, mitral valve replacement, tricuspid valve repair May 2024 at [facility] Coronary artery disease with prior stenting Dual-chamber pacemaker, [facility] [employer], November 2017 Paroxysmal atrial fibrillation on Eliquis Hyperlipidemia Diabetes mellitus type 2 Hypertension Moderate to severe pulmonary hypertension PLAN: Continue to monitor hemoglobin. Eliquis remains on hold. Continue IV diuretics for additional 24 hours Daily weights, accurate intake and output, and monitoring of kidney function CO2 42. Patient has been started on Diamox per pulmonary medicine Further recommendations pending patient course Nurse practitioner note has been reviewed by physician. Signing provider agrees with the documented findings, assessment, and plan of care documented by OPERATIONS RESEARCH SCIENTIST as a scribe. Objective - Vital Signs Vital signs: Vital Signs Temp 98.1 F 10/13/24 08:00 Pulse 63 10/13/24 08:00 Resp 16 10/13/24 08:00 BP 118/63 10/13/24 08:00 Pulse Ox 99 10/13/24 08:16 FiO2 Intake & Output 10/12/24 10/13/24 10/13/24 18:59 06:59 18:59 Intake Total 240 236 Output Total 750 3025 600 Balance -510 -3024 -806 Weight 130.7 kg Intake: Oral 240 236 Output: Urine 750 3025 600 Other: Voiding Method External Catheter External Catheter # Bowel Movements 1 - Labs CBC & Chem 7: 10/13/24 05:34 10/13/24 05:34 Labs: Abnormal Lab Results - Last 24 Hours (Table) 10/12/24 10/12/24 10/12/24 Range/Units 11:41 16:41 19:53 RBC (3.80-5.40) m/uL Hgb (11.4-16.0) gm/dL Hct (34.0-46.0) % MCHC (31.0-37.0) g/dL RDW (11.5-15.5) % Plt Count (150-450) k/uL Lymphocytes # (1.0-4.8) k/uL Sodium (137-145) mmol/L Potassium (3.5-5.1) mmol/L Chloride (98-107) mmol/L Carbon Dioxide (22-30) mmol/L BUN (7-17) mg/dL Glucose (74-99) mg/dL POC Glucose (mg/dL) 182 H 227 H 259 H (70-110) mg/dL Calcium (8.4-10.2) mg/dL 11/10/13/24 10/13/24 Range/Units 05:34 05:34 06:15 RBC 3.25 L (3.80-5.40) m/uL Hgb 8.2 L (11.4-16.0) gm/dL Hct 27.3 L (34.0-46.0) % MCHC 30.0 L (31.0-37.0) g/dL RDW 18.5 H (11.5-15.5) % Plt Count 127 L (150-450) k/uL Lymphocytes # 0.6 L (1.0-4.8) k/uL Sodium 136 L (137-145) mmol/L Potassium 3.1 L (3.5-5.1) mmol/L Chloride 86 L (98-107) mmol/L Carbon Dioxide 42 H* (22-30) mmol/L BUN 19 H (7-17) mg/dL Glucose 169 H (74-99) mg/dL POC Glucose (mg/dL) 183 H (70-110) mg/dL Calcium 8.0 L (8.4-10.2) mg/dL
--- NOTE | 2024-10-13 13:28 | XR ---
EXAMINATION TYPE: XR chest 1V DATE OF EXAM: 10/13/2024 COMPARISON: 10/08/2024 CLINICAL INDICATION: Female, 79 years old with shortness of breath, history of CHF; TECHNIQUE: Single frontal view of the chest is obtained. FINDINGS: Median sternotomy wires are present with prosthetic aortic valve. Left anterior chest wall pacemaker generator with right atrial right ventricular leads. Heart upper limits of normal in size. Diffuse interstitial density. [id number] left pleural effusion and left basilar opacity persi sts. IMPRESSION: Overall stable exam with a finding suggesting CHF with pulmonary vascular congestion. Al so, similar small to moderate left pleural effusion with adjacent atelectasis and/or consolidation. [facility], , 10/13/2024 1:26 PM
--- NOTE | 2024-10-13 13:48 | P.CNPUL ---
History of Present Illness Consult date: 10/13/24 Reason for consult: dyspnea History of present illness: This is a 79-year-old female patient who is being seen in consultation for metabolic alkalosis. The patient was hospitalized on 10/08/2024 and the patient was in significant volume overload and she was also complaining of some shortness of breath and the patient's chest x-ray showed a left-sided pleural effusion. The patient had previous history of aortic valve placement and mitral valve replacement and tricuspid valve repair patient also has history of coronary artery disease and the patient has undergone previous stenting of the mid LAD and ostial PDA.The patient has a dual-chamber pacemaker insertion. She has paroxysmal atrial fibrillation, diabetes mellitus type 2, hypertension hyperlipidemia. The patient underwent her cardiac surgery at the [facility] back in May of this year. She has been followed by [facility]. She is also known to have obstructive sleep apnea. I have seen her in the sleep center in the past and the patient has been maintained on the BiPAP pressure of 18 over 14 cm of water and she has been quite compliant with treatment. She is also on oxygen and she had progressive worsening in her hypoxemia along with increased shortness of breath. Based on that, the patient came into the hospital. EKG showed a paced rhythm. The chest x-ray showed cardiomegaly and bilateral pleural effusion worse on the left. The patient's hemoglobin was low at 6.2 and dropped down to 5.5. The patient was transfused with a total of 3 units of packed RBC during the current hospitalization the patient's hemoglobin is currently is at 8.2. A repeat echocardiogram was done during this current hospitalization on 10/09/2024 and the patient was found to have a normal LV with an ejection fraction of 6065%, severe pulm hypertension with a PA pressure of 56. The patient had mitral valve replacement with mild mitral stenosis and aortic valve replacement without any valvular abnormalities or regurgitation. No evidence of any pericardial effusion. During this current admission, the patient was subjected to diuresis the patient is currently on Lasix 40 mg IV every 8 hours and the patient is also on Zaroxolyn 5 mg p.o. daily and Aldactone 25 mg p.o. daily. I checked the fluid balance and over the past 4 days, the patient has been in the negative fluid balance of at least 8 L. There has been also steady increase in his serum bicarb. The patient is initial bicarb at the time of admission was 28 and currently is up to 42. I obtained a follow-up chest x-ray this morning and it showed overall stable findings consistent with CHF and pulm vessel congestion. There is a small to moderate-sized left-sided pleural effusion along with some adjacent atelectatic change. Hemoglobin is at 8.2 with a white cell count of 6.4 and a platelet count of 127. BUN is 19 with a creatinine of 1.09 and sodium levels at 136 and potassium levels at 3.1. She remains on Levemir insulin 20 units nightly and NovoLog sliding scale coverage. She is also on Toprol 50 mg p.o. twice daily and IV Protonix. She remains on aspirin. Review of Systems Constitutional: Reports fatigue, Reports weight gain Eyes: denies as per HPI, denies blurred vision, denies bulging eye, denies decreased vision, denies diplopia, denies discharge, denies dry eye, denies irritation, denies itching, denies pain, denies photophobia, denies loss of peripheral vision, denies loss of vision, denies tunnel vision/blind spots Ears: deny: decreased hearing, ear discharge, earache, tinnitus Ears, nose, mouth and throat: Reports as per HPI Breasts: absent: as per HPI, change in shape, gynecomastia, masses, nipple discharge, pain, skin changes, swelling Breasts: Reports as per HPI Cardiovascular: Reports decreased exercise tolerance, Reports dyspnea on exertion, Reports edema, Reports shortness of breath Respiratory: Reports dyspnea, Reports home oxygen, Reports sleep apnea, Reports snoring Gastrointestinal: Reports as per HPI Genitourinary: Reports as per HPI Menstruation: Reports as per HPI Musculoskeletal: Reports as per HPI Musculoskeletal: bilateral: ankle swelling, absent: ankle pain, ankle stiffness Integumentary: Reports as per HPI Neurological: Reports as per HPI Psychiatric: Reports as per HPI Endocrine: Reports as per HPI Hematologic/Lymphatic: Reports as per HPI Allergic/Immunologic: Reports as per HPI Past Medical History Past Medical History: Atrial Fibrillation, Diabetes Mellitus, Hearing Disorder / Deafness, Hyperlipidemia, Osteoarthritis (OA), Pneumonia, Sleep Apnea/CPAP/BIPAP, Thyroid Disorder Additional Past Medical History / Comment(s): USES BIPAP, AORTIC VALVE REPLACEMENT , HX A-FIB WITH PNEUMONIA,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 HAD THYROID AND PARATHYROID REMOVAL. TOTAL LEFT KNEE REPLACEMENT, CATARACT RT EYE, CATARACT LEFT EYE SURGERY ,COLONOSCOPY, TVAR- , Aortic valve replacement 10/2018 Past Anesthesia/Blood Transfusion Reactions: No Reported Reaction Type of Cardiac Device: Permanent Pacemaker Device Placement Date:: PACEMAKER NOV 2017. Past Psychological History: No Psychological Hx Reported Smoking Status: Never smoker Past Alcohol Use History: None Reported Past Drug Use History: None Reported - Past Family History Daughter(s) Family Medical History: Deep Vein Thrombosis (DVT) Sister(s) Family Medical History: Cancer Additional Family Medical History / Comment(s): BREAST CANCER Medications and Allergies Home Medications Medication Instructions Recorded Confirmed Type Levothyroxine Sodium [Levoxyl] 175 mcg PO DAILY 10/25/20 10/08/24 History Isosorbide Mononitrate ER [Imdur] 30 mg PO DAILY 01/03/22 10/08/24 History Apixaban [Eliquis] 5 mg PO BID 10/08/24 10/08/24 History FLUoxetine HCL [PROzac] 10 mg PO DAILY 10/08/24 10/08/24 History Furosemide [Lasix] 20 mg PO BID 10/08/24 10/08/24 History Insulin Aspart [NovoLOG Flexpen] 40 units SQ AC-TID 10/08/24 10/08/24 History Insulin Glargine,Hum.rec.anlog 20 - 30 units SQ HS 10/08/24 10/08/24 History [Lantus Solostar Pen] Metoprolol Succinate (ER) [Toprol 50 mg PO DAILY 10/08/24 10/08/24 History Xl] Rosuvastatin Calcium [Crestor] 40 mg PO HS 10/08/24 10/08/24 History Allergies Allergy/AdvReac Type Severity Reaction Status Date / Time nitrofurantoin Allergy Rash/Hives Verified 10/08/24 19:32 macrocrystalline [From Macrodantin] phenazopyridine HCl Allergy Rash/Hives Verified 10/08/24 19:32 [From Pyridium] Physical Exam Vitals: Vital Signs Temp Pulse Resp BP Pulse Ox 10/13/24 12:00 98.1 F 62 16 102/58 99 10/13/24 08:16 99 10/13/24 08:00 98.1 F 63 16 118/63 97 10/13/24 03:53 61 18 177/69 99 10/12/24 23:25 63 16 144/69 98 10/12/24 19:49 98.4 F 62 16 181/79 98 10/12/24 16:00 98.1 F 64 14 127/82 98 10/12/24 14:00 62 14 Intake and Output 10/12/24 10/13/24 10/13/24 22:59 06:59 14:59 Intake Total 354 Output Total 1200 1825 600 Balance -1200 -1825 -246 Intake: Oral 354 Output: Urine 1200 1825 600 Other: Voiding Method External Catheter External Catheter External Catheter # Bowel Movements 1 Weight 130.7 kg The patient appeared well nourished and normally developed. Vital signs as documented. At the time of my evaluation, the patient was utilizing her home BiPAP from home at a pressure of 18/14 cm of water. While off the BiPAP, the patient is on 5 L. Head exam is unremarkable. No scleral icterus or corneal arcus noted. Neck is without jugular venous distension, thyromegaly, or carotid bruits. Carotid upstrokes are brisk bilaterally. Lungs are clear to auscultation and percussion. Diminished breath sound lung base especially left lung base along with dullness to percussion. Cardiac exam reveals the PMI to be normally sized and situated. Rhythm is regular. First and second heart sounds normal. No murmurs, rubs or gallops. Patient has a pacemaker in place. Abdominal exam reveals normal bowel sounds, no masses, no organomegaly and no aortic enlargement. Extremities show significant edema in all 4 extremities mainly in the lower extremities extending to her thighs and abdomen and both femoral and pedal pulses are normal. Examination of the skin revealed no evidence of significant rashes, suspicious appearing nevi or other concerning lesions. Neurologically, the patient is awake and alert and the patient does not have any focal neurological deficit. Cranial nerves are essentially intact. Results - Laboratory Findings CBC and BMP: 10/13/24 05:34 10/13/24 05:34 PT/INR, D-dimer PT 11.0 sec (10.0-12.5) 10/08/24 17:06 INR 1.0 (<1.2) 10/08/24 17:06 Abnormal lab findings: Abnormal Labs 10/08/24 10/08/24 10/08/24 17:06 17:06 17:06 RBC 2.69 L Hgb 6.2 L* Hct 21.6 L MCH 23.1 L MCHC 28.8 L RDW 18.8 H Plt Count Neutrophils # 8.8 H Lymphocytes # APTT 17.0 L Sodium 133 L Potassium Chloride Carbon Dioxide BUN 36 H Creatinine Glucose 139 H POC Glucose (mg/dL) Hemoglobin A1c Plasma Lactic Acid Jez Calcium 8.2 L Troponin I Total Protein Albumin Urine Appearance Urine Blood Ur Leukocyte Esterase Urine RBC Urine WBC Urine Bacteria Hyaline Casts Crossmatch Blood Bank Comment Reference Lab Result 10/08/24 10/08/24 10/08/24 17:06 17:06 17:09 RBC Hgb Hct MCH MCHC RDW Plt Count Neutrophils # Lymphocytes # APTT Sodium Potassium Chloride Carbon Dioxide BUN Creatinine Glucose POC Glucose (mg/dL) Hemoglobin A1c Plasma Lactic Acid Jez 2.5 H* Calcium Troponin I 0.065 H* Total Protein Albumin Urine Appearance Cloudy H Urine Blood Large H Ur Leukocyte Esterase Large H Urine RBC 98 H Urine WBC 103 H Urine Bacteria Many H Hyaline Casts 3 H Crossmatch Blood Bank Comment Reference Lab Result 10/08/24 10/08/24 10/08/24 20:57 21:59 22:59 RBC Hgb Hct MCH MCHC RDW Plt Count Neutrophils # Lymphocytes # APTT Sodium Potassium Chloride Carbon Dioxide BUN Creatinine Glucose POC Glucose (mg/dL) 181 H Hemoglobin A1c Plasma Lactic Acid Jez Calcium Troponin I 0.052 H* Total Protein Albumin Urine Appearance Urine Blood Ur Leukocyte Esterase Urine RBC Urine WBC Urine Bacteria Hyaline Casts Crossmatch See Detail Blood Bank Comment Reference Lab Result 10/08/24 10/08/24 10/09/24 23:45 23:50 06:04 RBC 2.36 L Hgb 5.5 L* Hct 19.2 L* MCH 23.3 L MCHC 28.7 L RDW 18.9 H Plt Count Neutrophils # Lymphocytes # 0.7 L APTT Sodium Potassium Chloride Carbon Dioxide BUN Creatinine Glucose POC Glucose (mg/dL) Hemoglobin A1c Plasma Lactic Acid Jez Calcium Troponin I 0.048 H* Total Protein Albumin Urine Appearance Urine Blood Ur Leukocyte Esterase Urine RBC Urine WBC Urine Bacteria Hyaline Casts Crossmatch See Detail Blood Bank Comment Sent to [facility] A Reference Lab Result See BBK REF Reports A 10/09/24 10/09/24 10/09/24 06:04 06:04 09:02 RBC Hgb Hct MCH MCHC RDW Plt Count Neutrophils # Lymphocytes # APTT Sodium 134 L Potassium Chloride Carbon Dioxide 33 H BUN 32 H Creatinine Glucose 129 H POC Glucose (mg/dL) 135 H Hemoglobin A1c 7.5 H Plasma Lactic Acid Jez Calcium 7.9 L Troponin I Total Protein 5.7 L Albumin 3.1 L Urine Appearance Urine Blood Ur Leukocyte Esterase Urine RBC Urine WBC Urine Bacteria Hyaline Casts Crossmatch Blood Bank Comment Reference Lab Result 10/09/24 10/09/24 10/09/24 12:42 14:34 17:56 RBC 2.62 L Hgb 6.3 L* Hct 21.5 L MCH 24.1 L MCHC 29.5 L RDW 18.7 H Plt Count Neutrophils # Lymphocytes # 0.6 L APTT Sodium Potassium Chloride Carbon Dioxide BUN Creatinine Glucose POC Glucose (mg/dL) 191 H 243 H Hemoglobin A1c Plasma Lactic Acid Jez Calcium Troponin I Total Protein Albumin Urine Appearance Urine Blood Ur Leukocyte Esterase Urine RBC Urine WBC Urine Bacteria Hyaline Casts Crossmatch Blood Bank Comment Reference Lab Result 10/09/24 10/10/24 10/10/24 21:23 06:03 07:07 RBC Hgb Hct MCH MCHC RDW Plt Count Neutrophils # Lymphocytes # APTT Sodium 132 L Potassium Chloride 96 L Carbon Dioxide 36 H BUN 29 H Creatinine 1.05 H Glucose 136 H POC Glucose (mg/dL) 279 H 167 H Hemoglobin A1c Plasma Lactic Acid Jez Calcium 7.8 L Troponin I Total Protein Albumin Urine Appearance Urine Blood Ur Leukocyte Esterase Urine RBC Urine WBC Urine Bacteria Hyaline Casts Crossmatch Blood Bank Comment Reference Lab Result 10/10/24 10/10/24 10/10/24 07:07 11:24 16:32 RBC 2.75 L Hgb 6.9 L* Hct 22.6 L MCH MCHC 30.6 L RDW 18.6 H Plt Count 144 L Neutrophils # Lymphocytes # APTT Sodium Potassium Chloride Carbon Dioxide BUN Creatinine Glucose POC Glucose (mg/dL) 209 H 207 H Hemoglobin A1c Plasma Lactic Acid Jez Calcium Troponin I Total Protein Albumin Urine Appearance Urine Blood Ur Leukocyte Esterase Urine RBC Urine WBC Urine Bacteria Hyaline Casts Crossmatch Blood Bank Comment Reference Lab Result 10/10/24 10/11/24 10/11/24 19:40 06:01 09:49 RBC Hgb Hct MCH MCHC RDW Plt Count Neutrophils # Lymphocytes # APTT Sodium 136 L Potassium 3.4 L Chloride 91 L Carbon Dioxide 40 H BUN 25 H Creatinine 1.15 H Glucose 155 H POC Glucose (mg/dL) 132 H 139 H Hemoglobin A1c Plasma Lactic Acid Jez Calcium 8.0 L Troponin I Total Protein Albumin Urine Appearance Urine Blood Ur Leukocyte Esterase Urine RBC Urine WBC Urine Bacteria Hyaline Casts Crossmatch Blood Bank Comment Reference Lab Result 10/11/24 10/11/24 10/11/24 09:49 11:27 16:11 RBC 3.51 L Hgb 8.9 L D Hct 29.4 L MCH MCHC 30.3 L RDW 18.2 H Plt Count Neutrophils # Lymphocytes # APTT Sodium Potassium Chloride Carbon Dioxide BUN Creatinine Glucose POC Glucose (mg/dL) 203 H 218 H Hemoglobin A1c Plasma Lactic Acid Jez Calcium Troponin I Total Protein Albumin Urine Appearance Urine Blood Ur Leukocyte Esterase Urine RBC Urine WBC Urine Bacteria Hyaline Casts Crossmatch Blood Bank Comment Reference Lab Result 10/11/24 10/12/24 10/12/24 20:07 05:56 06:39 RBC 3.21 L Hgb 8.1 L Hct 26.8 L MCH MCHC 30.1 L RDW 18.0 H Plt Count 122 L Neutrophils # Lymphocytes # 0.8 L APTT Sodium Potassium Chloride Carbon Dioxide BUN Creatinine Glucose POC Glucose (mg/dL) 161 H 142 H Hemoglobin A1c Plasma Lactic Acid Jez Calcium Troponin I Total Protein Albumin Urine Appearance Urine Blood Ur Leukocyte Esterase Urine RBC Urine WBC Urine Bacteria Hyaline Casts Crossmatch Blood Bank Comment Reference Lab Result 10/12/24 10/12/24 10/12/24 06:39 11:41 16:41 RBC Hgb Hct MCH MCHC RDW Plt Count Neutrophils # Lymphocytes # APTT Sodium 136 L Potassium Chloride 92 L Carbon Dioxide 39 H BUN 21 H Creatinine Glucose 121 H POC Glucose (mg/dL) 182 H 227 H Hemoglobin A1c Plasma Lactic Acid Jez Calcium 8.0 L Troponin I Total Protein Albumin Urine Appearance Urine Blood Ur Leukocyte Esterase Urine RBC Urine WBC Urine Bacteria Hyaline Casts Crossmatch Blood Bank Comment Reference Lab Result 10/12/24 10/13/24 10/13/24 19:53 05:34 05:34 RBC 3.25 L Hgb 8.2 L Hct 27.3 L MCH MCHC 30.0 L RDW 18.5 H Plt Count 127 L Neutrophils # Lymphocytes # 0.6 L APTT Sodium 136 L Potassium 3.1 L Chloride 86 L Carbon Dioxide 42 H* BUN 19 H Creatinine Glucose 169 H POC Glucose (mg/dL) 259 H Hemoglobin A1c Plasma Lactic Acid Jez Calcium 8.0 L Troponin I Total Protein Albumin Urine Appearance Urine Blood Ur Leukocyte Esterase Urine RBC Urine WBC Urine Bacteria Hyaline Casts Crossmatch Blood Bank Comment Reference Lab Result 10/13/24 10/13/24 06:15 11:32 RBC Hgb Hct MCH MCHC RDW Plt Count Neutrophils # Lymphocytes # APTT Sodium Potassium Chloride Carbon Dioxide BUN Creatinine Glucose POC Glucose (mg/dL) 183 H 292 H Hemoglobin A1c Plasma Lactic Acid Jez Calcium Troponin I Total Protein Albumin Urine Appearance Urine Blood Ur Leukocyte Esterase Urine RBC Urine WBC Urine Bacteria Hyaline Casts Crossmatch Blood Bank Comment Reference Lab Result - Diagnostic Findings Chest x-ray: image reviewed Assessment and Plan Plan: Acute on chronic dyspnea with signs of decompensated heart failure essentially due to diastolic heart failure and valvular heart disease. The patient had significant volume overload at time of admission and the patient has been diuresed with IV Lasix and she is currently on a combination of Lasix, Zaroxolyn and Aldactone. Acute on chronic hypoxic respiratory failure, currently on 5 L of oxygen by nasal cannula Obstructive sleep apnea maintained on BiPAP pressure of 18/14 cm of water, u tilizing her on device from home Acute on chronic anemia, s/p transfusion with a total of 3 units of packed RBC. Awaiting endoscopy History of valvular heart disease and the patient is status post aortic valve replacement, mitral valve replacement and tricuspid valve repair in May 2024 performed at [facility] Dual-chamber pacemaker insertion, November 2017 Paroxysmal A-fib maintained on anticoagulation with Eliquis Coronary artery disease with previous coronary stenting of the LAD and ostial PDA Diabetes mellitus type 2 Hyperlipidemia Hypertension Severe pulmonary hypertension, group 2 Metabolic alkalosis developed during this current hospital stay due to aggressive diuresis and the patient has been increased 8 to 9 L negative fluid balance with ongoing edema Plan Continue diuretics per cardiology Give the patient Diamox 500 mg IV x 2 doses and monitor the serum bicarb Monitor the hemoglobin and keep anticoagulation on hold Continue BiPAP at a pressure of 18/14 cm of water and the patient is using her own device Continue metoprolol Currently on 5 L of oxygen by nasal cannula with failure to to maintain saturation above 90% Mild left-sided pleural effusion thoracentesis if needed Cardiology follow-up Will continue to follow
[2024-10-13 16:40] LABS: Glucose,Whole Blood 304 mg/dL (70-110)
[2024-10-13 19:59] LABS: Glucose,Whole Blood 264 mg/dL (70-110)
--- NOTE | 2024-10-13 20:38 | P.PN ---
Subjective Progress Note Date: 10/13/24 Vamsi Alexandre is a 72 year-old male with past medical history of coronary artery disease, paroxysmal atrial fibrillation on Eliquis, ischemic cardiomyopathy, who presented to the ED complaining of chest pain. He describes a tightness across his entire chest that happened after he was exerting himself but then did not resolve so he came to the ED. He does report BP intermittently going high and patient also complains of lower extremity edema right greater than left. On presentation blood pressure 109/86, heart rate 65, pulse ox 97% on room air, EKG NSR, WBC 6.9 Hgb 11.6, BUN 25 Cr 2.84. Trop 0.041, 0.042, 0.051. BNP 1690. 10/10 Patient complains from some His dyspnea is off on all as he explains, worse when he lays down He denies chest pain] Vital stable His creatinine 2.8 and 2.7 indicative of chronic kidney disease His troponin were mildly elevated 0.04 and 0.05. [employer] team are planning for cardiac cath on Saturday Nephrology team were consulted Chest x-ray is negative Echocardiogram showing ejection fraction 40 to 45% with hypokinetic basal and inferior wall 10/11 Patient with no chest pain. Dyspnea improved. No leg swelling No other complaint Is currently on aspirin 81 mg, Eliquis is on hold for his paroxysmal A-fib Also he is currently not on heparin drip. IV Lasix also was discontinued Creatinine stable at 2.8. Hemoglobin stable at 11.8 Renal ultrasound showing no hydronephrosis, I reviewed and agree Lisinopril dose lowered to 10 mg and Norvasc dose lowered to 5 mg. Patient continued on metoprolol 75 mg 10/12 Her Hgb is stable at 8.2 this morning, she denies shortness of breath. Eliquis remains on hold. 10/13 Her Hgb remains stable and eliquis is on hold today. She continues negative fluid balance. Her CO2 this morning is up to 42 Objective - Vital Signs Vital signs: Vital Signs Temp 97.8 F 10/13/24 20:19 Pulse 61 10/13/24 20:19 Resp 16 10/13/24 20:19 BP 100/61 10/13/24 20:19 Pulse Ox 98 10/13/24 20:19 FiO2 Intake & Output 1110/13/24 10/14/24 06:59 18:59 06:59 Intake Total 354 Output Total 3025 800 Balance -3025 -446 Weight 130.7 kg Intake: Oral 354 Output: Urine 3020 800 Other: Voiding Method External Catheter External Catheter # Bowel Movements 1 - Exam Gen: elderly female in NAD HEENT: On CPAP machine CV: Regular rate and rhythm Lungs; CTAB - Labs CBC & Chem 7: 10/13/24 05:34 10/13/24 05:34 Labs: Abnormal Lab Results - Last 24 Hours (Table) 10/13/24 10/13/24 10/13/24 Range/Units 05:34 05:34 06:15 RBC 3.25 L (3.80-5.40) m/uL Hgb 8.2 L (11.4-16.0) gm/dL Hct 27.3 L (34.0-46.0) % MCHC 30.0 L (31.0-37.0) g/dL RDW 18.5 H (11.5-15.5) % Plt Count 127 L (150-450) k/uL Lymphocytes # 0.6 L (1.0-4.8) k/uL Sodium 136 L (137-145) mmol/L Potassium 3.1 L (3.5-5.1) mmol/L Chloride 86 L (98-107) mmol/L Carbon Dioxide 42 H* (22-30) mmol/L BUN 19 H (7-17) mg/dL Glucose 169 H (74-99) mg/dL POC Glucose (mg/dL) 183 H (70-110) mg/dL Calcium 8.0 L (8.4-10.2) mg/dL 10/13/24 10/13/24 10/13/24 Range/Units 11:32 16:39 19:57 RBC (3.80-5.40) m/uL Hgb (11.4-16.0) gm/dL Hct (34.0-46.0) % MCHC (31.0-37.0) g/dL RDW (11.5-15.5) % Plt Count (150-450) k/uL Lymphocytes # (1.0-4.8) k/uL Sodium (137-145) mmol/L Potassium (3.5-5.1) mmol/L Chloride (98-107) mmol/L Carbon Dioxide (22-30) mmol/L BUN (7-17) mg/dL Glucose (74-99) mg/dL POC Glucose (mg/dL) 292 H 304 H 264 H (70-110) mg/dL Calcium (8.4-10.2) mg/dL Assessment and Plan Plan: Continue with current regimen, hold anticoagulation per Cardiology and diurese. Consult pulmonology and start diamox for mixed acid base disturbance. Closely monitor Hgb and continue PPI
[2024-10-14 06:06] LABS: Glucose,Whole Blood 291 mg/dL (70-110)
[2024-10-14 07:42] LABS: African American GFR (CKD) 49 (>60 ml/min/1.73 sqM); Blood Urea Nitrogen 18 mg/dL (7-17); Calcium 7.9 mg/dL (8.4-10.2); Chloride 89 mmol/L (98-107); Glucose 231 mg/dL (74-99); Non-African American GFR(CKD) 43 (>60 ml/min/1.73 sqM); Potassium 3.2 mmol/L (3.5-5.1); Sodium 133 mmol/L (137-145)
[2024-10-14 07:49] LABS: Anion Gap 7 mmol/L
[2024-10-14 07:50] LABS: Carbon Dioxide 37 mmol/L (22-30)
[2024-10-14 09:20] LABS: Anisocytosis Slight; HCT 28.1 % (34.0-46.0); HGB 8.1 gm/dL (11.4-16.0); Hypochromasia Marked; MCH 24.6 pg (25.0-35.0); MCHC 28.8 g/dL (31.0-37.0); MCV 85.5 fL (80.0-100.0); Mean Platelet Volume 8.9; Platelet Count 114 k/uL (150-450); Poikilocytosis Moderate; RBC 3.29 m/uL (3.80-5.40); RDW 18.1 % (11.5-15.5); WBC 6.6 k/uL (3.8-10.6)
[2024-10-14] MEDS: FUROSEMIDE 20 MG TAB PO SCH (09:48)
--- NOTE | 2024-10-14 09:49 | P.PN ---
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 She complains that ever since her heart surgery at [facility] she has felt short of breath and did not get any real improvement from the procedure. She denies having any chest pain or chest pressure. She complains her shortness of breath recently worsened and she had to turn her oxygen up. She denies abdominal pain although endorses lack of radha etite. Patient states her stools are very dark but not black. Blood pressure 116/60, heart rate 100, pulse ox 99% on CPAP. Hgb down to 5.1 this morning. 10/10 Patient complains from some His dyspnea is off on all as he explains, worse when he lays down He denies chest pain] Vital stable His creatinine 2.8 and 2.7 indicative of chronic kidney disease His troponin were mildly elevated 0.04 and 0.05. Personal Care Worker team are planning for cardiac cath on Saturday Nephrology team were consulted Chest x-ray is negative Echocardiogram showing ejection fraction 40 to 45% with hypokinetic basal and inferior wall 10/11 Patient with no chest pain. Dyspnea improved. No leg swelling No other complaint Is currently on aspirin 81 mg, Eliquis is on hold for his paroxysmal A-fib Also he is currently not on heparin drip. IV Lasix also was discontinued Creatinine stable at 2.8. Hemoglobin stable at 11.8 Renal ultrasound showing no hydronephrosis, I reviewed and agree Lisinopril dose lowered to 10 mg and Norvasc dose lowered to 5 mg. Patient continued on metoprolol 75 mg 10/12 Her Hgb is stable at 8.2 this morning, she denies shortness of breath. Eliquis remains on hold. 10/13 Her Hgb remains stable and eliquis is on hold today. She continues negative fluid balance. Her CO2 this morning is up to 42 10/14 She is feeling well today, denies chest pain, shortness of breath. She did get I V diamox with improvement in bicarb to 38 today. Hgb remains stable at 8.1 today. Objective - Vital Signs Vital signs: Vital Signs Temp 97.5 F L 10/14/24 03:40 Pulse 61 10/14/24 03:40 Resp 17 10/14/24 03:40 BP 110/58 10/14/24 03:40 Pulse Ox 100 10/14/24 03:40 FiO2 Intake & Output 10/13/24 10/14/24 10/14/24 18:59 06:59 18:59 Intake Total 354 30 240 Output Total 800 2100 Balance -446 240 Weight 127.3 kg Intake: IV 30 Invasive Line 1 20 Invasive Line 2 10 Oral 354 240 Output: Urine 800 2100 Other: Voiding Method External Catheter External Catheter # Bowel Movements 1 - Exam Gen: elderly female in NAD HEENT: On CPAP machine CV: Regular rate and rhythm Lungs; CTAB - Labs CBC & Chem 7: 10/14/24 06:32 10/14/24 06:32 Labs: Abnormal Lab Results - Last 24 Hours (Table) 10/13/24 10/13/24 10/13/24 Range/Units 11: 16:39 19:57 RBC (3.80-5.40) m/uL Hgb (11.4-16.0) gm/dL Hct (34.0-46.0) % MCH (25.0-35.0) pg MCHC (31.0-37.0) g/dL RDW (11.5-15.5) % Plt Count (150-450) k/uL Sodium (137-145) mmol/L Potassium (3.5-5.1) mmol/L Chloride (98-107) mmol/L Carbon Dioxide (22-30) mmol/L BUN (7-17) mg/dL Creatinine (0.52-1.04) mg/dL Glucose (74-99) mg/dL POC Glucose (mg/dL) 292 H 304 H 264 H (70-110) mg/dL Calcium (8.4-10.2) mg/dL 10/14/24 10/14/24 10/14/24 Range/Units 06:04 06:32 06:32 RBC 3.29 L (3.80-5.40) m/uL Hgb 8.1 L (11.4-16.0) gm/dL Hct 28.1 L (34.0-46.0) % MCH 24.6 L (25.0-35.0) pg MCHC 28.8 L (31.0-37.0) g/dL RDW 18.1 H (11.5-15.5) % Plt Count 114 L (150-450) k/uL Sodium 133 L (137-145) mmol/L Potassium 3.2 L (3.5-5.1) mmol/L Chloride 89 L (98-107) mmol/L Carbon Dioxide 37 H (22-30) mmol/L BUN 18 H (7-17) mg/dL Creatinine 1.22 H (0.52-1.04) mg/dL Glucose 231 H (74-99) mg/dL POC Glucose (mg/dL) 291 H (70-110) mg/dL Calcium 7.9 L (8.4-10.2) mg/dL Assessment and Plan Plan: Continue with current regimen, hold anticoagulation per Cardiology and diurese. Closely monitor Hgb and continue PPI. Pulmonology following
[2024-10-14 11:39] LABS: Glucose,Whole Blood 203 mg/dL (70-110)
--- NOTE | 2024-10-14 12:08 | P.PN ---
Subjective HISTORY OF PRESENT ILLNESS: This is a 79-year-old female patient of Dr. 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 We have been asked to evaluate the patient for CHF. Patient presented to the emergency center due to severe weakness and shortness of breath. Patient underwent aortic valve replacement, mitral valve replacement and tricuspid valve repair at [place] in May of this year. She has had follow-up with Dr. Watson with complaints of continued limited physical activity, dyspnea and peripheral edema and fatigue. She has not felt any real improvement of her symptoms since she had her surgery and is disappointed about that. She denies having any chest pain or chest pressure. Her shortness of breath seems to be worsening and she has had significantly worse edema extending into her abdomen. She apparently has also been started on home oxygen which she is increased to 7 L. Regarding anemia, patient did receive 3 to 4 units after her surgery in May and she has had follow-up lab work done in July with her PCP and she was not contacted about any abnormality at that time. Also, patient is not eating or drinking very much. She states she has no appetite and has lost her sense of taste since the surgery. She denies any abdominal pain. Daughter states that she has had a distended abdomen for few weeks that waxes and wanes. Patient states her stools are very dark but not black. She has not been on iron at home. She has been taking baby aspirin and Eliquis although aspirin is not listed on her home medication list. She denies any vaginal bleeding. Blood pressure 116/60, heart rate 100, pulse ox 99% on CPAP. Patient is seen today in the emergency center waiting for a bed on the cardiac stepdown unit. Eliquis has been placed on hold. Patient has been seen by GI with plan for EGD tomorrow if cleared by cardiology. -EKG: Atrial paced rhythm -Chest x-ray: Cardiomegaly, pulmonary vascular congestion and bilateral pleural effusions. -Laboratory studies: Hemoglobin initially 6.2 now 5.5. Sodium 134, BUN 32 and creatinine 0.91. Hemoglobin A1c 7.5. Troponin 0.065, 0.052, 0.048. proBNP 2830. -Home cardiac medications: Eliquis 5 mg twice daily, Lasix 20 mg twice daily, Imdur 30 mg daily, Toprol-XL 50 mg daily, Crestor 40 mg at bedtime, also on levothyroxine 175 mcg daily. -Echocardiogram performed 05/24/2024 revealed normal EF, prosthetic AV, prosthetic MV, TV repair. -Cardiovascular surgery 05/20/2024: Tissue AVR, tissue MVR, TV repair -Previous CV surgery 11/06/2018: TAVR. -Cardiac catheterization 2020 with stent placed in the mid D1, stent in the ostial PDA. 10/12/2024 Patient examined this morning at the bedside. Patient currently denies chest pain or pressure. She denies shortness of breath. She continues to have significant lower extremity edema. Patient is feeling ember at the bedside also reports she has a lot of swelling around her abdomen which is not normal for her. Echocardiogram completed revealing ejection fraction 60 to 65%, status post mitral valve replacement, mild mitral stenosis, mean gradient 6 mmHg, aortic valve replacement with no perivalvular aortic regurgitation, moderate to severe pulmonary hypertension. Hemoglobin today 8.1. Telemetry reveals paced rhythm at 60. 10/13/2024 Patient examined this morning at the bedside. Patient is currently sitting up in the chair. Patient currently denies chest pain or pressure. She denies shortness of breath. She remains on IV diuretics. She continues to have lower extremity edema. CO2 42 today. She has been started on Diamox per pulmonary medicine. blood pressure 118/63. BUN 19. Creatinine 1.04. Hemoglobin today 8.2. Eliquis remains on hold. Telemetry reveals paced rhythm. 10/14/2024 Patient examined this morning the bedside. Patient denies having any chest pain or pressure. She denies shortness of breath. Remains on IV Lasix. Patient CO2 improved today. She was given Diamox x 2 doses yesterday per pulmonary medicine. She continues to have lower extremity edema although improving. Telemetry reveals paced rhythm. PHYSICAL EXAM: VITAL SIGNS: Reviewed. GENERAL: Well-developed in no acute distress. NECK: Supple. No JVD or thyromegaly LUNGS: Respirations even and unlabored. Lungs essentially clear to auscultation bilaterally. HEART: Regular rate and rhythm. S1 and S2 heard. Systolic murmur noted. EXTREMITIES: Normal range of motion. No clubbing or cyanosis. Peripheral pulses intact. 2+ pitting bilateral lower extremity edema ASSESSMENT: Acute diastolic heart failure Severe anemia, status post RBC transfusion, endoscopy canceled secondary to h eart failure Probable acute blood loss anemia secondary to acute on chronic GI bleed History of aortic valve replacement, mitral valve replacement, tricuspid valve repair May 2024 at [place] Coronary artery disease with prior stenting Dual-chamber pacemaker, [facility], November 2017 Paroxysmal atrial fibrillation on Eliquis Hyperlipidemia Diabetes mellitus type 2 Hypertension Moderate to severe pulmonary hypertension PLAN: Continue to monitor hemoglobin. Eliquis remains on hold. Discontinue IV Lasix. Begin oral Lasix 60 mg in the morning and 40 mg in the afternoon Daily weights, accurate intake and output, and monitoring of kidney function Further recommendations pending patient course Nurse practitioner note has been reviewed by physician. Signing provider agrees with the documented findings, assessment, and plan of care documented by AMBULANCE OPERATIONS SUPERVISOR as a scribe. Objective - Vital Signs Vital signs: Vital Signs Temp 97.8 F 10/14/24 08:10 Pulse 63 10/14/24 08:10 Resp 19 10/14/24 08:10 BP 103/57 10/14/24 08:10 Pulse Ox 100 10/14/24 08:10 FiO2 Intake & Output 10/13/24 10/14/24 10/14/24 18:59 06:59 18:59 Intake Total 354 30 250 Output Total 800 2100 Balance - 250 Weight 127.3 kg 127.3 kg Intake: IV 30 10 Invasive Line 1 20 Invasive Line 2 10 10 Oral 354 240 Output: Urine 800 2100 Other: Voiding Method External Catheter External Catheter External Catheter # Bowel Movements 1 - Labs CBC & Chem 7: 10/14/24 06:32 10/14/24 06:32 Labs: Abnormal Lab Results - Last 24 Hours (Table) 10/13/24 10/13/24 10/14/24 Range/Units 16:39 19:57 06:04 RBC (3.80-5.40) m/uL Hgb (11.4-16.0) gm/dL Hct (34.0-46.0) % MCH (25.0-35.0) pg MCHC (31.0-37.0) g/dL RDW (11.5-15.5) % Plt Count (150-450) k/uL Sodium (137-145) mmol/L Potassium (3.5-5.1) mmol/L Chloride (98-107) mmol/L Carbon Dioxide (22-30) mmol/L BUN (7-17) mg/dL Creatinine (0.52-1.04) mg/dL Glucose (74-99) mg/dL POC Glucose (mg/dL) 304 H 264 H 291 H (70-110) mg/dL Calcium (8.4-10.2) mg/dL 10/14/24 10/14/24 10/14/24 Range/Units 06:32 06:32 11:37 RBC 3.29 L (3.80-5.40) m/uL Hgb 8.1 L (11.4-16.0) gm/dL Hct 28.1 L (34.0-46.0) % MCH 24.6 L (25.0-35.0) pg MCHC 28.8 L (31.0-37.0) g/dL RDW 18.1 H (11.5-15.5) % Plt Count 114 L (150-450) k/uL Sodium 133 L (137-145) mmol/L Potassium 3.2 L (3.5-5.1) mmol/L Chloride 89 L (98-107) mmol/L Carbon Dioxide 37 H (22-30) mmol/L BUN 18 H (7-17) mg/dL Creatinine 1.22 H (0.52-1.04) mg/dL Glucose 231 H (74-99) mg/dL POC Glucose (mg/dL) 203 H (70-110) mg/dL Calcium 7.9 L (8.4-10.2) mg/dL
[2024-10-14] MEDS ORDERED: Potassium Replacement Protocol 1 EACH MISC MISCELLANE PRN (13:34)
[2024-10-14] MEDS: POTASSIUM CHLORIDE ER 20 MEQ TAB.ER PO SCH (15:08)
[2024-10-14] MEDS: FUROSEMIDE 40 MG TAB PO SCH (15:08)
[2024-10-14 16:58] LABS: Glucose,Whole Blood 242 mg/dL (70-110)
--- NOTE | 2024-10-14 19:48 | P.PN ---
Subjective Progress Note Date: 10/14/24 This is a 79-year-old female patient who is being seen in consultation for metabolic alkalosis. The patient was hospitalized on 10/08/2024 and the patient was in significant volume overload and she was also complaining of some shortness of breath and the patient's chest x-ray showed a left-sided pleural effusion. The patient had previous history of aortic valve placement and mitral valve replacement and tricuspid valve repair patient also has history of coronary artery disease and the patient has undergone previous stenting of the mid LAD and ostial PDA.The patient has a dual-chamber pacemaker insertion. She has paroxysmal atrial fibrillation, diabetes mellitus type 2, hypertension hyperlipidemia. The patient underwent her cardiac surgery at the [facility] back in May of this year. She has been followed by [facility]. She is also known to have obstructive sleep apnea. I have seen her in the sleep center in the past and the patient has been maintained on the BiPAP pressure of 18 over 14 cm of water and she has been quite compliant with treatment. She is also on oxygen and she had progressive worsening in her hypoxemia along with increased shortness of breath. Based on that, the patient came into the hospital. EKG showed a paced rhythm. The chest x-ray showed cardiomegaly and bilateral pleural effusion worse on the left. The patient's hemoglobin was low at 6.2 and dropped down to 5.5. The patient was transfused with a total of 3 units of packed RBC during the current hospitalization the patient's hemoglobin is currently is at 8.2. A repeat echocardiogram was done during this current hospitalization on 10/09/2024 and the patient was found to have a normal LV with an ejection fraction of 6065%, severe pulm hypertension with a PA pressure of 56. The patient had mitral valve replacement with mild mitral stenosis and aortic valve replacement without any valvular abnormalities or regurgitation. No evidence of any pericardial effusion. During this current admission, the patient was subjected to diuresis the patient is currently on Lasix 40 mg IV every 8 hours and the patient is also on Zaroxolyn 5 mg p.o. daily and Aldactone 25 mg p.o. daily. I checked the fluid balance and over the past 4 days, the patient has been in the negative fluid balance of at least 8 L. There has been also steady increase in his serum bicarb. The patient is initial bicarb at the time of admission was 28 and currently is up to 42. I obtained a follow-up chest x-ray this morning and it showed overall stable findings consistent with CHF and pulm vessel congestion. There is a small to moderate-sized left-sided pleural effusion along with some adjacent atelectatic change. Hemoglobin is at 8.2 with a white cell count of 6.4 and a platelet count of 127. BUN is 19 with a creatinine of 1.09 and sodium levels at 136 and potassium levels at 3.1. She remains on Levemir insulin 20 units nightly and NovoLog sliding scale coverage. She is also on Toprol 50 mg p.o. twice daily and IV Protonix. She remains on aspirin. On 10/14/2024, the patient is being seen for a follow-up. The patient is doing well. She continues to diurese well. Fluid balance has been -2.5 L over the past 24 hours. Nevertheless, she continues to have significant amount of edema in the abdomen lower extremities involving the thighs. BUN is 18 with a creatinine of 1.22. The patient developed metabolic alkalosis. The serum bicarb was quite elevated and the patient received a total of 2 doses of Diamox and the serum bicarb is down to 37. Meanwhile, the diuretics have been modified and the patient is currently on Lasix 60 mg in the morning and 40 mg in the evening. The patient is also on Zaroxolyn 5 mg p.o. daily and Aldactone 25 mg p.o. daily. The patient is utilizing her BiPAP and once off the BiPAP, she is maintaining herself on oxygen at 5 L/min nasal cannula. No significant shortness of breath. No cough or sputum production. Edema still extensive. Objective - Vital Signs Vital signs: Vital Signs Temp 97.8 F 10/14/24 16:10 Pulse 65 10/14/24 16:10 Resp 18 10/14/24 16:10 BP 102/64 10/14/24 16:10 Pulse Ox 98 10/14/24 16:10 FiO2 Intake & Output 10/13/24 10/14/24 10/14/24 18:59 06:59 18:59 Intake Total 354 30 260 Output Total 800 2100 1000 Balance -446 -2070 -740 Weight 127.3 kg 127.3 kg Intake: IV 30 20 Invasive Line 1 20 Invasive Line 2 10 20 Oral 354 240 Output: Urine 800 2100 1000 Other: Voiding Method External Catheter External Catheter External Catheter # Bowel Movements 1 - Exam The patient appeared well nourished and normally developed. Vital signs as documented. At the time of my evaluation, the patient was utilizing her home BiPAP from home at a pressure of 18/14 cm of water. While off the BiPAP, the patient is on 5 L. Head exam is unremarkable. No scleral icterus or corneal arcus noted. Neck is without jugular venous distension, thyromegaly, or carotid bruits. Carotid upstrokes are brisk bilaterally. Lungs are clear to auscultation and percussion. Diminished breath sound lung base especially left lung base along with dullness to percussion. Cardiac exam reveals the PMI to be normally sized and situated. Rhythm is r egular. First and second heart sounds normal. No murmurs, rubs or gallops. Patient has a pacemaker in place. Abdominal exam reveals normal bowel sounds, no masses, no organomegaly and no aortic enlargement. Extremities show significant edema in all 4 extremities mainly in the lower extremities extending to her thighs and abdomen and both femoral and pedal pulses are normal. Examination of the skin revealed no evidence of significant rashes, suspicious appearing nevi or other concerning lesions. Neurologically, the patient is awake and alert and the patient does not have any focal neurological deficit. Cranial nerves are essentially intact. - Labs CBC & Chem 7: 10/14/24 06:32 10/14/24 06:32 Labs: Abnormal Lab Results - Last 24 Hours (Table) 10/13/24 10/14/24 10/14/24 Range/Units 19:57 06:04 06:32 RBC (3.80-5.40) m/uL Hgb (11.4-16.0) gm/dL Hct (34.0-46.0) % MCH (25.0-35.0) pg MCHC (31.0-37.0) g/dL RDW (11.5-15.5) % Plt Count (150-450) k/uL Sodium 133 L (137-145) mmol/L Potassium 3.2 L (3.5-5.1) mmol/L Chloride 89 L (98-107) mmol/L Carbon Dioxide 37 H (22-30) mmol/L BUN 18 H (7-17) mg/dL Creatinine 1.22 H (0.52-1.04) mg/dL Glucose 231 H (74-99) mg/dL POC Glucose (mg/dL) 264 H 291 H (70-110) mg/dL Calcium 7.9 L (8.4-10.2) mg/dL 10/14/24 10/14/24 10/14/24 Range/Units 06:32 11:37 16:56 RBC 3.29 L (3.80-5.40) m/uL Hgb 8.1 L (11.4-16.0) gm/dL Hct 28.1 L (34.0-46.0) % MCH 24.6 L (25.0-35.0) pg MCHC 28.8 L (31.0-37.0) g/dL RDW 18.1 H (11.5-15.5) % Plt Count 114 L (150-450) k/uL Sodium (137-145) mmol/L Potassium (3.5-5.1) mmol/L Chloride (98-107) mmol/L Carbon Dioxide (22-30) mmol/L BUN (7-17) mg/dL Creatinine (0.52-1.04) mg/dL Glucose (74-99) mg/dL POC Glucose (mg/dL) 203 H 242 H (70-110) mg/dL Calcium (8.4-10.2) mg/dL Assessment and Plan Plan: Acute on chronic dyspnea with signs of decompensated heart failure essentially due to diastolic heart failure and valvular heart disease. The patient had significant volume overload at time of admission and the patient has been diuresed with IV Lasix and she is currently on a combination of p.o. Lasix, Zaroxolyn and Aldactone. The patient maintains a negative fluid balance. Acute on chronic hypoxic respiratory failure, currently on 5 L of oxygen by nasal cannula Obstructive sleep apnea maintained on BiPAP pressure of 18/14 cm of water, utilizing her on device from home Acute on chronic anemia, s/p transfusion with a total of 3 units of packed RBC. Awaiting endoscopy History of valvular heart disease and the patient is status post aortic valve replacement, mitral valve replacement and tricuspid valve repair in May 2024 performed at [facility] Dual-chamber pacemaker insertion, November 2017 Paroxysmal A-fib maintained on anticoagulation with Eliquis Coronary artery disease with previous coronary stenting of the LAD and ostial PDA Diabetes mellitus type 2 Hyperlipidemia Hypertension Severe pulmonary hypertension, group 2 Metabolic alkalosis developed during this current hospital stay due to aggressive diuresis and the patient has been increased 8 to 9 L negative fluid balance with ongoing edema. The patient was given 2 doses of Diamox and the metabolic alkalosis improved. Plan Continue diuretics per cardiology Given Diamox yesterday, a total of 2 doses Monitor the hemoglobin and keep anticoagulation on hold and the hemoglobin remains stable Continue BiPAP at a pressure of 18/14 cm of water and the patient is using her own device Continue metoprolol Currently on 5 L of oxygen by nasal cannula with failure to to maintain sa turation above 90% Mild left-sided pleural effusion thoracentesis if needed Cardiology follow-up Will continue to follow
[2024-10-14 20:01] LABS: Glucose,Whole Blood 241 mg/dL (70-110)
[2024-10-15 06:28] LABS: Glucose,Whole Blood 205 mg/dL (70-110)
[2024-10-15 11:32] LABS: Glucose,Whole Blood 243 mg/dL (70-110)
--- NOTE | 2024-10-15 13:13 | P.PN ---
Subjective HISTORY OF PRESENT ILLNESS: This is a 79-year-old female patient of Dr. 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 We have been asked to evaluate the patient for CHF. Patient presented to the emergency center due to severe weakness and shortness of breath. Patient underwent aortic valve replacement, mitral valve replacement and tricuspid valve repair at [facility] in May of this year. She has had follow-up with Dr. Watson with complaints of continued limited physical activity, dyspnea and peripheral edema and fatigue. She has not felt any real improvement of her symptoms since she had her surgery and is disappointed about that. She denies having any chest pain or chest pressure. Her shortness of breath seems to be worsening and she has had significantly worse edema extending into her abdomen. She apparently has also been started on home oxygen which she is increased to 7 L. Regarding anemia, patient did receive 3 to 4 units after her surgery in May and she has had follow-up lab work done in July with her PCP and she was not contacted about any abnormality at that time. Also, patient is not eating or drinking very much. She states she has no appetite and has lost her sense of taste since the surgery. She denies any abdominal pain. Daughter states that she has had a distended abdomen for few weeks that waxes and wanes. Patient states her stools are very dark but not black. She has not been on iron at home. She has been taking baby aspirin and Eliquis although aspirin is not listed on her home medication list. She denies any vaginal bleeding. Blood pressure 116/60, heart rate 100, pulse ox 99% on CPAP. Patient is seen today in the emergency center waiting for a bed on the cardiac stepdown unit. Eliquis has been placed on hold. Patient has been seen by GI with plan for EGD tomorrow if cleared by cardiology. -EKG: Atrial paced rhythm -Chest x-ray: Cardiomegaly, pulmonary vascular congestion and bilateral pleural effusions. -Laboratory studies: Hemoglobin initially 6.2 now 5.5. Sodium 134, BUN 32 and creatinine 0.91. Hemoglobin A1c 7.5. Troponin 0.065, 0.052, 0.048. proBNP 2830. -Home cardiac medications: Eliquis 5 mg twice daily, Lasix 20 mg twice daily, Imdur 30 mg daily, Toprol-XL 50 mg daily, Crestor 40 mg at bedtime, also on levothyroxine 175 mcg daily. -Echocardiogram performed 05/24/2024 revealed normal EF, prosthetic AV, prosthetic MV, TV repair. -Cardiovascular surgery 05/20/2024: Tissue AVR, tissue MVR, TV repair -Previous CV surgery 11/06/2018: TAVR. -Cardiac catheterization 2020 with stent placed in the mid D1, stent in the ostial PDA. 10/12/2024 Patient examined this morning at the bedside. Patient currently denies chest pain or pressure. She denies shortness of breath. She continues to have significant lower extremity edema. Patient is feeling ember at the bedside also reports she has a lot of swelling around her abdomen which is not normal for her. Echocardiogram completed revealing ejection fraction 60 to 65%, status post mitral valve replacement, mild mitral stenosis, mean gradient 6 mmHg, aortic valve replacement with no perivalvular aortic regurgitation, moderate to severe pulmonary hypertension. Hemoglobin today 8.1. Telemetry reveals paced rhythm at 60. 10/13/2024 Patient examined this morning at the bedside. Patient is currently sitting up in the chair. Patient currently denies chest pain or pressure. She denies shortness of breath. She remains on IV diuretics. She continues to have lower extremity edema. CO2 42 today. She has been started on Diamox per pulmonary medicine. blood pressure 118/63. BUN 19. Creatinine 1.04. Hemoglobin today 8.2. Eliquis remains on hold. Telemetry reveals paced rhythm. 10/14/2024 Patient examined this morning the bedside. Patient denies having any chest pain or pressure. She denies shortness of breath. Remains on IV Lasix. Patient CO2 improved today. She was given Diamox x 2 doses yesterday per pulmonary medicine. She continues to have lower extremity edema although improving. Telemetry reveals paced rhythm. 10/14/2024 Patient examined this morning at the bedside. Patient on CPAP at the time of examination. She denies chest pain or pressure. She denies shortness of breath. She has been transitioned to oral Lasix. PHYSICAL EXAM: VITAL SIGNS: Reviewed. GENERAL: Well-developed in no acute distress. NECK: Supple. No JVD or thyromegaly LUNGS: Respirations even and unlabored. Lungs essentially clear to auscultation bilaterally. HEART: Regular rate and rhythm. S1 and S2 heard. Systolic murmur noted. EXTREMITIES: Normal range of motion. No clubbing or cyanosis. Peripheral pulses intact. 2+ pitting bilateral lower extremity edema, improving ASSESSMENT: Acute diastolic heart failure Severe anemia, status post RBC transfusion, endoscopy canceled secondary to heart failure Probable acute blood loss anemia secondary to acute on chronic GI bleed History of aortic valve replacement, mitral valve replacement, tricuspid valve repair May 2024 at [facility] Coronary artery disease with prior stenting Dual-chamber pacemaker, [facility] [employer], November 2017 Paroxysmal atrial fibrillation on Eliquis Hyperlipidemia Diabetes mellitus type 2 Hypertension Moderate to severe pulmonary hypertension PLAN: Continue to monitor hemoglobin. Eliquis remains on hold. Continue oral Lasix 60 mg in the morning and 40 mg in the afternoon Daily weights, accurate intake and output, and monitoring of kidney function Further recommendations pending patient course Nurse practitioner note has been reviewed by physician. Signing provider agrees with the documented findings, assessment, and plan of care documented by [employer] as a scribe. Objective - Vital Signs Vital signs: Vital Signs Temp 98.5 F 10/15/24 11:38 Pulse 61 10/15/24 11:38 Resp 18 10/15/24 11:38 BP 105/63 10/15/24 11:38 Pulse Ox 96 10/15/24 11:38 FiO2 Intake & Output 10/14/24 10/15/24 10/15/24 18:59 06:59 18:59 Intake Total 260 20 490 Output Total 1000 Balance -740 20 490 Weight 127.3 kg 125.1 kg Intake: IV 20 20 10 Invasive Line 2 20 20 10 Oral 240 480 Output: Urine 1000 Other: Voiding Method External Catheter External Catheter - Labs CBC & Chem 7: 10/14/24 06:32 10/14/24 06:32 Labs: Abnormal Lab Results - Last 24 Hours (Table) 10/14/24 10/14/24 10/15/24 Range/Units 16:56 20:00 06:27 POC Glucose (mg/dL) 242 H 241 H 205 H (70-110) mg/dL 10/15/24 Range/Units 11:30 POC Glucose (mg/dL) 243 H (70-110) mg/dL
--- NOTE | 2024-10-15 14:25 | P.PN ---
Subjective Progress Note Date: 10/15/24 This is a 79-year-old female patient who is being seen in consultation for metabolic alkalosis. The patient was hospitalized on 10/08/2024 and the patient was in significant volume overload and she was also complaining of some shortness of breath and the patient's chest x-ray showed a left-sided pleural effusion. The patient had previous history of aortic valve placement and mitral valve replacement and tricuspid valve repair patient also has history of coronary artery disease and the patient has undergone previous stenting of the mid LAD and ostial PDA.The patient has a dual-chamber pacemaker insertion. She has paroxysmal atrial fibrillation, diabetes mellitus type 2, hypertension hyperlipidemia. The patient underwent her cardiac surgery at the [facility] back in May of this year. She has been followed by [facility]. She is also known to have obstructive sleep apnea. I have seen her in the sleep center in the past and the patient has been maintained on the BiPAP pressure of 18 over 14 cm of water and she has been quite compliant with treatment. She is also on oxygen and she had progressive worsening in her hypoxemia along with increased shortness of breath. Based on that, the patient came into the hospital. EKG showed a paced rhythm. The chest x-ray showed cardiomegaly and bilateral pleural effusion worse on the left. The patient's hemoglobin was low at 6.2 and dropped down to 5.5. The patient was transfused with a total of 3 units of packed RBC during the current hospitalization the patient's hemoglobin is currently is at 8.2. A repeat echocardiogram was done during this current hospitalization on 10/09/2024 and the patient was found to have a normal LV with an ejection fraction of 6065%, severe pulm hypertension with a PA pressure of 56. The patient had mitral valve replacement with mild mitral stenosis and aortic valve replacement without any valvular abnormalities or regurgitation. No evidence of any pericardial effusion. During this current admission, the patient was subjected to diuresis the patient is currently on Lasix 40 mg IV every 8 hours and the patient is also on Zaroxolyn 5 mg p.o. daily and Aldactone 25 mg p.o. daily. I checked the fluid balance and over the past 4 days, the patient has been in the negative fluid balance of at least 8 L. There has been also steady increase in his serum bicarb. The patient is initial bicarb at the time of admission was 28 and currently is up to 42. I obtained a follow-up chest x-ray this morning and it showed overall stable findings consistent with CHF and pulm vessel congestion. There is a small to moderate-sized left-sided pleural effusion along with some adjacent atelectatic change. Hemoglobin is at 8.2 with a white cell count of 6.4 and a platelet count of 127. BUN is 19 with a creatinine of 1.09 and sodium levels at 136 and potassium levels at 3.1. She remains on Levemir insulin 20 units nightly and NovoLog sliding scale coverage. She is also on Toprol 50 mg p.o. twice daily and IV Protonix. She remains on aspirin. On 10/14/2024, the patient is being seen for a follow-up. The patient is doing well. She continues to diurese well. Fluid balance has been -2.5 L over the past 24 hours. Nevertheless, she continues to have significant amount of edema in the abdomen lower extremities involving the thighs. BUN is 18 with a creatinine of 1.22. The patient developed metabolic alkalosis. The serum bicarb was quite elevated and the patient received a total of 2 doses of Diamox and the serum bicarb is down to 37. Meanwhile, the diuretics have been modified and the patient is currently on Lasix 60 mg in the morning and 40 mg in the evening. The patient is also on Zaroxolyn 5 mg p.o. daily and Aldactone 25 mg p.o. daily. The patient is utilizing her BiPAP and once off the BiPAP, she is maintaining herself on oxygen at 5 L/min nasal cannula. No significant shortness of breath. No cough or sputum production. Edema still extensive. On 10/15/2024, the patient is being seen for a follow-up. Doing well. Still has edema lower extremities. Nevertheless, the fluid balance has been -2.5 L over the past 24 hours and if she is producing good urine output. She remains on Lasix 60 mg in the morning and 40 mg in the evenings p.o. and the patient remains on Aldactone 25 mg p.o. daily and Zaroxolyn 5 mg p.o. daily. She is utilizing her BiPAP routinely. No labs are available from today. Nevertheless, the patient is awake and alert and communicating. No other significant events overnight. Objective - Vital Signs Vital signs: Vital Signs Temp 98.8 F 10/15/24 08:20 Pulse 62 10/15/24 08:20 Resp 18 10/15/24 08:20 BP 96/48 10/15/24 08:20 Pulse Ox 98 10/15/24 08:20 FiO2 Intake & Output 10/14/24 10/15/24 10/15/24 18:59 06:59 18:59 Intake Total 260 20 490 Output Total 1000 Balance -740 20 490 Weight 127.3 kg 125.1 kg Intake: IV 20 20 10 Invasive Line 2 20 20 10 Oral 240 480 Output: Urine 1000 Other: Voiding Method External Catheter External Catheter - Exam The patient appeared well nourished and normally developed. Vital signs as documented. At the time of my evaluation, the patient was utilizing her home BiPAP from home at a pressure of 18/14 cm of water. While off the BiPAP, the patient is on 5 L. Head exam is unremarkable. No scleral icterus or corneal arcus noted. Neck is without jugular venous distension, thyromegaly, or carotid bruits. Carotid upstrokes are brisk bilaterally. Lungs are clear to auscultation and percussion. Diminished breath sound lung base especially left lung base along with dullness to percussion. Cardiac exam reveals the PMI to be normally sized and situated. Rhythm is regular. First and second heart sounds normal. No murmurs, rubs or gallops. Patient has a pacemaker in place. Abdominal exam reveals normal bowel sounds, no masses, no organomegaly and no aortic enlargement. Extremities show significant edema in all 4 extremities mainly in the lower extremities extending to her thighs and abdomen and both femoral and pedal pulses are normal. Examination of the skin revealed no evidence of significant rashes, suspicious appearing nevi or other concerning lesions. Neurologically, the patient is awake and alert and the patient does not have any focal neurological deficit. Cranial nerves are essentially intact. - Labs CBC & Chem 7: 10/14/24 06:32 10/14/24 06:32 Labs: Abnormal Lab Results - Last 24 Hours (Table) 10/14/24 10/14/24 10/14/24 Range/Units 11:37 16:56 20:00 POC Glucose (mg/dL) 203 H 242 H 241 H (70-110) mg/dL 10/15/24 Range/Units 06:27 POC Glucose (mg/dL) 205 H (70-110) mg/dL Assessment and Plan Plan: Acute on chronic dyspnea with signs of decompensated heart failure essentially due to diastolic heart failure and valvular heart disease. The patient had significant volume overload at time of admission and the patient has been diuresed with IV Lasix and she is currently on a combination of p.o. Lasix, Zaroxolyn and Aldactone. The patient maintains a negative fluid balance. Acute on chronic hypoxic respiratory failure, currently on 5 L of oxygen by nasal cannula Obstructive sleep apnea maintained on BiPAP pressure of 18/14 cm of water, utilizing her on device from home Acute on chronic anemia, s/p transfusion with a total of 3 units of packed RBC. Awaiting endoscopy History of valvular heart disease and the patient is status post aortic valve replacement, mitral valve replacement and tricuspid valve repair in May 2024 performed at [facility] Dual-chamber pacemaker insertion, November 2017 Paroxysmal A-fib maintained on anticoagulation with Eliquis Coronary artery disease with previous coronary stenting of the LAD and ostial PDA Diabetes mellitus type 2 Hyperlipidemia Hypertension Severe pulmonary hypertension, group 2 Metabolic alkalosis developed during this current hospital stay due to aggressive diuresis and the patient has been increased 8 to 9 L negative fluid balance with ongoing edema. The patient was given 2 doses of Diamox and the metabolic alkalosis improved. Plan Continue diuretics per cardiology Monitor electrolytes including the serum bicarb level Monitor the hemoglobin and keep anticoagulation on hold and the hemoglobin remains stable Continue BiPAP at a pressure of 18/14 cm of water and the patient is using her own device Continue metoprolol Currently on 5 L of oxygen by nasal cannula with failure to to maintain saturation above 90% Mild left-sided pleural effusion thoracentesis if needed Cardiology follow-up Will continue to follow
[2024-10-15 17:14] LABS: Glucose,Whole Blood 238 mg/dL (70-110)
[2024-10-15 20:22] LABS: Glucose,Whole Blood 235 mg/dL (70-110)
--- NOTE | 2024-10-15 23:10 | P.PN ---
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 She complains that ever since her heart surgery at [facility] she has felt short of breath and did not get any real improvement from the procedure. She denies having any chest pain or chest pressure. She complains her shortness of breath recently worsened and she had to turn her oxygen up. She denies abdominal pain although endorses lack of radha etite. Patient states her stools are very dark but not black. Blood pressure 116/60, heart rate 100, pulse ox 99% on CPAP. [facility] Patient presents reports of dyspnea. Patient states her breathing is better today No chest pain Currently she is getting blood transfusion Patient had severe anemia on admission with hemoglobin 5.5 and 6.3, after blood transfusion 6.9 GI team saw her yesterday but patient was not cleared by supervisor [employer] to undergo EGD which is held now Patient remains on IV Protonix Eliquis is on hold for her A-fib and other cardiac diseases Also she was placed on IV Lasix 40 mg twice daily given her acute CHF. And also on review of her blood transfusion Cardiology team added aspirin 81 mg while she is off Eliquis Ejection fraction is 60-65 percent, severe pulmonary hypertension with RVSP is 56 Hemoglobin A1c is elevated at 7.5% 10/11 Patient sitting at the edge of the bed She is still complaining from some dyspnea but improving. Still complaining from 2-3+ bilateral pitting leg edema. Also patient drinking a lot of water, she was counseled extensively about fluid restriction and she agrees She is kept on IV Lasix 40 mg twice daily. Fluid restriction is added Currently her Eliquis is on hold and she was started on aspirin 81 mg Patient evaluated by GI team however she was not cleared to undergo EGD/colonoscopy by supervisor [employer]. Patient status 3 units of blood transfusion and hemoglobin improved to 8.9 Hemoglobin A1c 7.5 Ejection fraction 60 to 65% with severe pulmonary hypertension with RVSP at 56 10/12 Patient breathing is better No blood in stool and she has a brown bowel movement She is diuresing very well while she kept on 100 mg of oral Lasix daily at 40 mg in the morning and 60 mg in the evening plus metolazone 5 mg. Eliquis remains on hold, GI team consult EGD because patient was not cleared by supervisor [employer] earlier in the week. Will keep monitoring hemoglobin while off Eliquis for her paroxysmal A-fib. She is currently on aspirin added instead of holding Eliquis She is on oral Lasix and IV Protonix Objective - Vital Signs Vital signs: Vital Signs Temp 98.5 F 10/15/24 11:38 Pulse 61 10/15/24 11:38 Resp 18 10/15/24 11:38 BP 105/63 10/15/24 11:38 Pulse Ox 96 10/15/24 11:38 FiO2 Intake & Output 10/14/24 10/15/24 10/15/24 18:59 06:59 18:59 Intake Total 260 20 490 Output Total 1000 Balance -740 20 490 Weight 127.3 kg 125.1 kg Intake: IV 20 20 10 Invasive Line 2 20 20 10 Oral 240 480 Output: Urine 1000 Other: Voiding Method External Catheter External Catheter - Exam -GENERAL: The patient is alert and oriented x3, not in any acute distress. Well developed, well nourished. Patient looks somewhat pale and tired HEENT: Pupils are round and equally reacting to light. EOMI. No scleral icterus. No conjunctival pallor. Normocephalic, atraumatic. No pharyngeal erythema. No thyromegaly. CARDIOVASCULAR: S1 and S2 present. No murmurs, rubs, or gallops. -PULMONARY: Chest is clear to auscultation, no wheezing , bilateral basal crackles. ABDOMEN: Soft, nontender, nondistended, normoactive bowel sounds. No palpable organomegaly. MUSCULOSKELETAL: No joint swelling or deformity. -EXTREMITIES: No cyanosis, clubbing,. Bilateral pitting leg edema. NEUROLOGICAL: Gross neurological examination did not reveal any focal deficits. SKIN: No rashes. no petechiae. - Labs CBC & Chem 7: 10/14/24 06:32 10/14/24 06:32 Labs: Abnormal Lab Results - Last 24 Hours (Table) 10/14/24 10/14/24 10/15/24 Range/Units 16:56 20:00 06:27 POC Glucose (mg/dL) 242 H 241 H 205 H (70-110) mg/dL 10/15/24 Range/Units 11:30 POC Glucose (mg/dL) 243 H (70-110) mg/dL Assessment and Plan Assessment: Acute blood loss severe anemia, present on admission. Acute on chronic diastolic CHF with ejection fraction 60 to 65% History of aortic valve replacement, mitral valve replacement and tricuspid valve repair on 05/2024 Diabetes mellitus Coronary artery disease Paroxysmal atrial fibrillation status post dual-chamber pacemaker Hypertension Hyperlipidemia Plan: S/p blood transfusion, blood hemoglobin improved. Keep monitoring Eliquis is on hold and patient was started on aspirin by supervisor [employer] GI team evaluated the patient, recommended EGD however patient was not cleared by supervisor [employer] yet. No GI service in this frail state during the weekend Continue with IV Protonix Continue with oral Lasix plus metolazone And fluid restriction Resume cardiac medication Labs and medication were reviewed.. Continue same treatment. Continue with symptomatic treatment. Resume home medication. Monitor labs and vitals. DVT and GI prophylaxis. Further recommendations as per clinical course of the patient DVT prophylaxis: hold anticoagulation in view of severe anemia GI Prophylaxis: Protonix Prognosis is guarded
[2024-10-16 06:13] LABS: Glucose,Whole Blood 235 mg/dL (70-110)
[2024-10-16 06:35] LABS: African American GFR (CKD) 49 (>60 ml/min/1.73 sqM); Blood Urea Nitrogen 24 mg/dL (7-17); Calcium 7.8 mg/dL (8.4-10.2); Chloride 91 mmol/L (98-107); Glucose 211 mg/dL (74-99); Non-African American GFR(CKD) 42 (>60 ml/min/1.73 sqM); Potassium 3.4 mmol/L (3.5-5.1); Sodium 134 mmol/L (137-145)
[2024-10-16 06:41] LABS: Anion Gap 6 mmol/L
[2024-10-16 06:43] LABS: Carbon Dioxide 37 mmol/L (22-30)
[2024-10-16 07:34] LABS: Anisocytosis Slight; Basophils # (A) 0.1 k/uL (0-0.2); Basophils % (A) 1 %; Eosinophils # (A) 0.2 k/uL (0-0.7); Eosinophils % (A) 2 %; HCT 26.3 % (34.0-46.0); HGB 7.9 gm/dL (11.4-16.0); Hypochromasia Marked; Lymphocytes # (A) 0.5 k/uL (1.0-4.8); Lymphocytes % (A) 7 %; MCH 25.5 pg (25.0-35.0); MCHC 30.1 g/dL (31.0-37.0); MCV 84.5 fL (80.0-100.0); Mean Platelet Volume 8.2; Monocytes # (A) 0.6 k/uL (0-1.0); Monocytes % (A) 7 %; Neutrophils # (A) 6.3 k/uL (1.3-7.7); Neutrophils % (A) 81 %; Platelet Count 122 k/uL (150-450); Poikilocytosis Slight; RBC 3.11 m/uL (3.80-5.40); RDW 18.3 % (11.5-15.5); WBC 7.7 k/uL (3.8-10.6)
--- NOTE | 2024-10-16 09:45 | P.PN ---
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 She complains that ever since her heart surgery at [facility] she has felt short of breath and did not get any real improvement from the procedure. She denies having any chest pain or chest pressure. She complains her shortness of breath recently worsened and she had to turn her oxygen up. She denies abdominal pain although endorses lack of radha etite. Patient states her stools are very dark but not black. Blood pressure 116/60, heart rate 100, pulse ox 99% on CPAP. [facility] Patient presents reports of dyspnea. 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 And also on review of her blood transfusion Cardiology team added aspirin 81 mg while she is off Eliquis Ejection fraction is 60-65 percent, severe pulmonary hypertension with RVSP is 56 Hemoglobin A1c is elevated at 7.5% 10/11 Patient sitting at the edge of the bed She is still complaining from some dyspnea but improving. Still complaining from 2-3+ bilateral pitting leg edema. Also patient drinking a lot of water, she was counseled extensively about fluid restriction and she agrees She is kept on IV Lasix 40 mg twice daily. Fluid restriction is added Currently her Eliquis is on hold and she was started on aspirin 81 mg Patient evaluated by GI team however she was not cleared to undergo EGD/colonoscopy by ship [employer] pilot. Patient status 3 units of blood transfusion and hemoglobin improved to 8.9 Hemoglobin A1c 7.5 Ejection fraction 60 to 65% with severe pulmonary hypertension with RVSP at 56 10/12 Patient breathing is better No blood in stool and she has a brown bowel movement She is diuresing very well while she kept on 100 mg of oral Lasix daily at 40 mg in the morning and 60 mg in the evening plus metolazone 5 mg. Eliquis remains on hold, GI team consult EGD because patient was not cleared by ship [employer] pilot earlier in the week. Will keep monitoring hemoglobin while off Eliquis for her paroxysmal A-fib. She is currently on aspirin added instead of holding Eliquis She is on oral Lasix and IV Protonix 10/16 Patient keep doing well She is on 5 L oxygen via nasal cannula No other new complaint Hemoglobin improved to 7.9 today Creatinine stable 1.2. Low potassium replaced at 3.4 She remains on p.o. Lasix 40 mg in the evening and 40 mg in the a.m. twice daily Objective - Vital Signs Vital signs: Vital Signs Temp 98.3 F 10/16/24 08:00 Pulse 60 10/16/24 08:00 Resp 16 10/16/24 08:00 BP 95/39 10/16/24 08:00 Pulse Ox 93 L 10/16/24 08:00 FiO2 Intake & Output 10/15/24 10/16/24 10/16/24 18:59 06:59 18:59 Intake Total 740 250 Output Total 1000 400 Balance -260 -150 Weight 123.7 kg Intake: IV 20 10 Invasive Line 2 20 10 Oral 720 240 Output: Urine 1000 400 Other: Voiding Method External Catheter External Catheter # Voids 1 - Exam -GENERAL: The patient is alert and oriented x3, not in any acute distress. Well developed, well nourished. Patient looks somewhat pale and tired HEENT: Pupils are round and equally reacting to light. EOMI. No scleral icterus. No conjunctival pallor. Normocephalic, atraumatic. No pharyngeal erythema. No thyromegaly. CARDIOVASCULAR: S1 and S2 present. No murmurs, rubs, or gallops. -PULMONARY: Chest is clear to auscultation, no wheezing , bilateral basal crackles. ABDOMEN: Soft, nontender, nondistended, normoactive bowel sounds. No palpable organomegaly. MUSCULOSKELETAL: No joint swelling or deformity. -EXTREMITIES: No cyanosis, clubbing,. Bilateral pitting leg edema. NEUROLOGICAL: Gross neurological examination did not reveal any focal deficits. SKIN: No rashes. no petechiae. - Labs CBC & Chem 7: 10/16/24 06:04 10/16/24 06:04 Labs: Abnormal Lab Results - Last 24 Hours (Table) 10/15/24 10/15/24 10/15/24 Range/Units 11:30 17:12 20:20 RBC (3.80-5.40) m/uL Hgb (11.4-16.0) gm/dL Hct (34.0-46.0) % MCHC (31.0-37.0) g/dL RDW (11.5-15.5) % Plt Count (150-450) k/uL Lymphocytes # (1.0-4.8) k/uL Sodium (137-145) mmol/L Potassium (3.5-5.1) mmol/L Chloride (98-107) mmol/L Carbon Dioxide (22-30) mmol/L BUN (7-17) mg/dL Creatinine (0.52-1.04) mg/dL Glucose (74-99) mg/dL POC Glucose (mg/dL) 243 H 238 H 235 H (70-110) mg/dL Calcium (8.4-10.2) mg/dL 10/16/24 10/16/24 10/16/24 Range/Units 06:04 06:04 06:12 RBC 3.11 L (3.80-5.40) m/uL Hgb 7.9 L (11.4-16.0) gm/dL Hct 26.3 L (34.0-46.0) % MCHC 30.1 L (31.0-37.0) g/dL RDW 18.3 H (11.5-15.5) % Plt Count 122 L (150-450) k/uL Lymphocytes # 0.5 L (1.0-4.8) k/uL Sodium 134 L (137-145) mmol/L Potassium 3.4 L (3.5-5.1) mmol/L Chloride 91 L (98-107) mmol/L Carbon Dioxide 37 H (22-30) mmol/L BUN 24 H (7-17) mg/dL Creatinine 1.23 H (0.52-1.04) mg/dL Glucose 211 H (74-99) mg/dL POC Glucose (mg/dL) 235 H (70-110) mg/dL Calcium 7.8 L (8.4-10.2) mg/dL Assessment and Plan Assessment: Acute blood loss severe anemia, present on admission. Acute on chronic diastolic CHF with ejection fraction 60 to 65% History of aortic valve replacement, mitral valve replacement and tricuspid valve repair on 05/2024 Diabetes mellitus Coronary artery disease Paroxysmal atrial fibrillation status post dual-chamber pacemaker Hypertension Hyperlipidemia Plan: Monitor hemoglobin. Eliquis is on hold and patient was started on aspirin by ship [employer] pilot GI team evaluated the patient, recommended EGD however patient was not cleared by ship harbor pilot yet. No GI service in this frail state during the weekend Continue with IV Protonix Continue with oral Lasix plus metolazone And fluid restriction Resume cardiac medication Labs and medication were reviewed.. Continue same treatment. Continue with symptomatic treatment. Resume home medication. Monitor labs and vitals. DVT and GI prophylaxis. Further recommendations as per clinical course of the patient DVT prophylaxis: hold anticoagulation in view of severe anemia GI Prophylaxis: Protonix Prognosis is guarded
--- NOTE | 2024-10-16 11:33 | P.PN ---
Subjective HISTORY OF PRESENT ILLNESS: This is a 79-year-old female patient of Dr. 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 We have been asked to evaluate the patient for CHF. Patient presented to the emergency center due to severe weakness and shortness of breath. Patient underwent aortic valve replacement, mitral valve replacement and tricuspid valve repair at [facility] in May of this year. She has had follow-up with Dr. Watson with complaints of continued limited physical activity, dyspnea and peripheral edema and fatigue. She has not felt any real improvement of her symptoms since she had her surgery and is disappointed about that. She denies having any chest pain or chest pressure. Her shortness of breath seems to be worsening and she has had significantly worse edema extending into her abdomen. She apparently has also been started on home oxygen which she is increased to 7 L. Regarding anemia, patient did receive 3 to 4 units after her surgery in May and she has had follow-up lab work done in July with her PCP and she was not contacted about any abnormality at that time. Also, patient is not eating or drinking very much. She states she has no appetite and has lost her sense of taste since the surgery. She denies any abdominal pain. Daughter states that she has had a distended abdomen for few weeks that waxes and wanes. Patient states her stools are very dark but not black. She has not been on iron at home. She has been taking baby aspirin and Eliquis although aspirin is not listed on her home medication list. She denies any vaginal bleeding. Blood pressure 116/60, heart rate 100, pulse ox 99% on CPAP. Patient is seen today in the emergency center waiting for a bed on the cardiac stepdown unit. Eliquis has been placed on hold. Patient has been seen by GI with plan for EGD tomorrow if cleared by cardiology. -EKG: Atrial paced rhythm -Chest x-ray: Cardiomegaly, pulmonary vascular congestion and bilateral pleural effusions. -Laboratory studies: Hemoglobin initially 6.2 now 5.5. Sodium 134, BUN 32 and creatinine 0.91. Hemoglobin A1c 7.5. Troponin 0.065, 0.052, 0.048. proBNP 2830. -Home cardiac medications: Eliquis 5 mg twice daily, Lasix 20 mg twice daily, Imdur 30 mg daily, Toprol-XL 50 mg daily, Crestor 40 mg at bedtime, also on levothyroxine 175 mcg daily. -Echocardiogram performed 05/24/2024 revealed normal EF, prosthetic AV, prosthetic MV, TV repair. -Cardiovascular surgery 05/20/2024: Tissue AVR, tissue MVR, TV repair -Previous CV surgery 11/06/2018: TAVR. -Cardiac catheterization 2020 with stent placed in the mid D1, stent in the ostial PDA. 10/12/2024 Patient examined this morning at the bedside. Patient currently denies chest pain or pressure. She denies shortness of breath. She continues to have significant lower extremity edema. Patient is feeling ember at the bedside also reports she has a lot of swelling around her abdomen which is not normal for her. Echocardiogram completed revealing ejection fraction 60 to 65%, status post mitral valve replacement, mild mitral stenosis, mean gradient 6 mmHg, aortic valve replacement with no perivalvular aortic regurgitation, moderate to severe pulmonary hypertension. Hemoglobin today 8.1. Telemetry reveals paced rhythm at 60. 10/13/2024 Patient examined this morning at the bedside. Patient is currently sitting up in the chair. Patient currently denies chest pain or pressure. She denies shortness of breath. She remains on IV diuretics. She continues to have lower extremity edema. CO2 42 today. She has been started on Diamox per pulmonary medicine. blood pressure 118/63. BUN 19. Creatinine 1.04. Hemoglobin today 8.2. Eliquis remains on hold. Telemetry reveals paced rhythm. 10/14/2024 Patient examined this morning the bedside. Patient denies having any chest pain or pressure. She denies shortness of breath. Remains on IV Lasix. Patient CO2 improved today. She was given Diamox x 2 doses yesterday per pulmonary medicine. She continues to have lower extremity edema although improving. Telemetry reveals paced rhythm. 10/15/2024 Patient examined this morning at the bedside. Patient on CPAP at the time of examination. She denies chest pain or pressure. She denies shortness of breath. She has been transitioned to oral Lasix. 10/16/2024 Patient examined this morning at the bedside. Patient currently denies chest pain or pressure. She denies shortness of breath. She remains on oral diuretics. Creatinine today 1.23. Patient's lower extremity edema is slowly improving. Hemoglobin stable at 7.9. Her Eliquis remains on hold. PHYSICAL EXAM: VITAL SIGNS: Reviewed. GENERAL: Well-developed in no acute distress. NECK: Supple. No JVD or thyromegaly LUNGS: Respirations even and unlabored. Lungs essentially clear to auscultation bilaterally. HEART: Regular rate and rhythm. S1 and S2 heard. Systolic murmur noted. EXTREMITIES: Normal range of motion. No clubbing or cyanosis. Peripheral pulses intact. 2+ pitting bilateral lower extremity edema, improving ASSESSMENT: Acute diastolic heart failure Severe anemia, status post RBC transfusion, endoscopy canceled secondary to heart failure Probable acute blood loss anemia secondary to acute on chronic GI bleed History of aortic valve replacement, mitral valve replacement, tricuspid valve r epair May 2024 at [facility] Coronary artery disease with prior stenting Dual-chamber pacemaker, [facility], November 2017 Paroxysmal atrial fibrillation on Eliquis Hyperlipidemia Diabetes mellitus type 2 Hypertension Moderate to severe pulmonary hypertension PLAN: Continue to monitor hemoglobin. Eliquis remains on hold. Continue oral Lasix 60 mg in the morning and 40 mg in the afternoon Daily weights, accurate intake and output, and monitoring of kidney function Patient is currently stable from a cardiac perspective Further recommendations pending patient course Nurse practitioner note has been reviewed by physician. Signing provider agrees with the documented findings, assessment, and plan of care documented by QUAL[employer] TECHNICIAN [employer]ERGLASS as a scribe. Objective - Vital Signs Vital signs: Vital Signs Temp 98.3 F 10/16/24 08:00 Pulse 60 10/16/24 08:00 Resp 16 10/16/24 08:00 BP 95/39 10/16/24 08:00 Pulse Ox 93 L 10/16/24 08:00 FiO2 Intake & Output 10/15/24 10/16/24 10/16/24 18:59 06:59 18:59 Intake Total 740 250 Output Total 1000 400 Balance -260 -150 Weight 123.7 kg Intake: IV 20 10 Invasive Line 2 20 10 Oral 720 240 Output: Urine 1000 400 Other: Voiding Method External Catheter External Catheter External Catheter # Voids 1 - Labs CBC & Chem 7: 10/16/24 06:04 10/16/24 06:04 Labs: Abnormal Lab Results - Last 24 Hours (Table) 10/15/24 10/15/24 10/15/24 Range/Units 11:30 17:12 20:20 RBC (3.80-5.40) m/uL Hgb (11.4-16.0) gm/dL Hct (34.0-46.0) % MCHC (31.0-37.0) g/dL RDW (11.5-15.5) % Plt Count (150-450) k/uL Lymphocytes # (1.0-4.8) k/uL Sodium (137-145) mmol/L Potassium (3.5-5.1) mmol/L Chloride (98-107) mmol/L Carbon Dioxide (22-30) mmol/L BUN (7-17) mg/dL Creatinine (0.52-1.04) mg/dL Glucose (74-99) mg/dL POC Glucose (mg/dL) 243 H 238 H 235 H (70-110) mg/dL Calcium (8.4-10.2) mg/dL 10/16/24 10/16/24 10/16/24 Range/Units 06:04 06:04 06:12 RBC 3.11 L (3.80-5.40) m/uL Hgb 7.9 L (11.4-16.0) gm/dL Hct 26.3 L (34.0-46.0) % MCHC 30.1 L (31.0-37.0) g/dL RDW 18.3 H (11.5-15.5) % Plt Count 122 L (150-450) k/uL Lymphocytes # 0.5 L (1.0-4.8) k/uL Sodium 134 L (137-145) mmol/L Potassium 3.4 L (3.5-5.1) mmol/L Chloride 91 L (98-107) mmol/L Carbon Dioxide 37 H (22-30) mmol/L BUN 24 H (7-17) mg/dL Creatinine 1.23 H (0.52-1.04) mg/dL Glucose 211 H (74-99) mg/dL POC Glucose (mg/dL) 235 H (70-110) mg/dL Calcium 7.8 L (8.4-10.2) mg/dL
[2024-10-16 11:45] LABS: Glucose,Whole Blood 226 mg/dL (70-110)
[2024-10-16] MEDS: POTASSIUM CHLORIDE ER 20 MEQ TAB.ER PO STA (12:10)
[2024-10-16 16:33] LABS: Glucose,Whole Blood 252 mg/dL (70-110)
--- NOTE | 2024-10-16 17:04 | CDI ---
Documentation Clarification Form Date: 10/16/2024 04:52:53 PM From: Sabrina Hdz RN, CCDS Phone: [phone] Admit Date: 10/08/2024 07:50:00 PM Patient Name: Sheila Perales Visit Number: [id number] Discharge Date: ATTENTION: The Clinical Documentation Specialists (CDI) and [facility] Coding Staff appreciate your assistance in clarifying documentation. Please respond to the clarification below the line at the bottom and electronically sign. The CDI & [facility] Coding staff will review the response and follow-up if needed. Please note: Queries are made part of the Legal Health Record. If you have any questions, please contact the author of this message via ITS. Doctor. Ibrahima Hua Your patient has documentation of chronic kidney disease in the progress notes starting on 10/12/24. Based on this information and the findings below, is there an additional diagnosis that is clinically appropriate for this patient? Patient history/risk factors: Atrial Fibrillation, Diabetes Mellitus, Hyperlipidemia, Thyroid Disorder Clinical Indicators: 79-year-old female to the ER complaint, increased weakness and severe shortness of breath. Her HGB 6.3 HCT 21.5 She is being treated for acute diastolic heart failure and severe anemia. 114/66 62 14 98.3 100% CPAP 10/08 BUN 36 CR 0.94 GFR 58 10/09 BUN 32 CR 0.01 GFR 61 10/10 BUN 29 CR 1.05 GFR 51 10/11 BUN 25 CR 1.15 GFR 46 10/12 BUN 21 CR 1.04 GFR 52 12/13 BUN 19 CR 1.04 GFR 52 10/14 BUN 18 CR 1.22 GFR 43 10/16 BUN 24 CR 1.23 GFR 42 Treatment Daily weights, accurate intake and output Basic Metabolic Panel Daily (per orders Is there an additional diagnosis that is clinically appropriate for this patient? [ X ] Acute Kidney Injury [ ] Acute Renal Failure [ ] Acute on Chronic Renal Failure (please stage) [ ] No additional diagnosis/Not clinically significant [ ] Unable to determine [ ] Other, please specify Reference: KDIGO AKASH Criteria An increase in serum creatinine by greater than or equal to 0.3 mg/dL within 48 hours; An increase in serum creatinine by greater than or equal to 1.5 times baseline, which is known or presumed to have occurred within the prior 7 days; A urine volume less than 0.5 ml/kg/h for 6 hours. When the baseline is unknown the lowest creatinine during admission assumed to be baseline (Template Last Revised: December 2022) MTDD
--- NOTE | 2024-10-16 17:22 | P.PN ---
Subjective Progress Note Date: 10/16/24 This is a 79-year-old female patient who is being seen in consultation for metabolic alkalosis. The patient was hospitalized on 10/08/2024 and the patient was in significant volume overload and she was also complaining of some shortness of breath and the patient's chest x-ray showed a left-sided pleural effusion. The patient had previous history of aortic valve placement and mitral valve replacement and tricuspid valve repair patient also has history of coronary artery disease and the patient has undergone previous stenting of the mid LAD and ostial PDA.The patient has a dual-chamber pacemaker insertion. She has paroxysmal atrial fibrillation, diabetes mellitus type 2, hypertension hyperlipidemia. The patient underwent her cardiac surgery at [facility] back in May of this year. She has been followed [facility]. She is also known to have obstructive sleep apnea. I have seen her in the sleep center in the past and the patient has been maintained on the BiPAP pressure of 18 over 14 cm of water and she has been quite compliant with treatment. She is also on oxygen and she had progressive worsening in her hypoxemia along with increased shortness of breath. Based on that, the patient came into the hospital. EKG showed a paced rhythm. The chest x-ray showed cardiomegaly and bilateral pleural effusion worse on the left. The patient's hemoglobin was low at 6.2 and dropped down to 5.5. The patient was transfused with a total of 3 units of packed RBC during the current hospitalization the patient's hemoglobin is currently is at 8.2. A repeat echocardiogram was done during this current hospitalization on 10/09/2024 and the patient was found to have a normal LV with an ejection fraction of 6065%, severe pulm hypertension with a PA pressure of 56. The patient had mitral valve replacement with mild mitral stenosis and aortic valve replacement without any valvular abnormalities or regurgitation. No evidence of any pericardial effusion. During this current admission, the patient was subjected to diuresis the patient is currently on Lasix 40 mg IV every 8 hours and the patient is also on Zaroxolyn 5 mg p.o. daily and Aldactone 25 mg p.o. daily. I checked the fluid balance and over the past 4 days, the patient has been in the negative fluid balance of at least 8 L. There has been also steady increase in his serum bicarb. The patient is initial bicarb at the time of admission was 28 and currently is up to 42. I obtained a follow-up chest x-ray this morning and it showed overall stable findings consistent with CHF and pulm vessel congestion. There is a small to moderate-sized left-sided pleural effusion along with some adjacent atelectatic change. Hemoglobin is at 8.2 with a white cell count of 6.4 and a platelet count of 127. BUN is 19 with a creatinine of 1.09 and sodium levels at 136 and potassium levels at 3.1. She remains on Levemir insulin 20 units nightly and NovoLog sliding scale coverage. She is also on Toprol 50 mg p.o. twice daily and IV Protonix. She remains on aspirin. On 10/14/2024, the patient is being seen for a follow-up. The patient is doing well. She continues to diurese well. Fluid balance has been -2.5 L over the past 24 hours. Nevertheless, she continues to have significant amount of edema in the abdomen lower extremities involving the thighs. BUN is 18 with a creatinine of 1.22. The patient developed metabolic alkalosis. The serum bicarb was quite elevated and the patient received a total of 2 doses of Diamox and the serum bicarb is down to 37. Meanwhile, the diuretics have been modified and the patient is currently on Lasix 60 mg in the morning and 40 mg in the evening. The patient is also on Zaroxolyn 5 mg p.o. daily and Aldactone 25 mg p.o. daily. The patient is utilizing her BiPAP and once off the BiPAP, she is maintaining herself on oxygen at 5 L/min nasal cannula. No significant shortness of breath. No cough or sputum production. Edema still extensive. On 10/15/2024, the patient is being seen for a follow-up. Doing well. Still has edema lower extremities. Nevertheless, the fluid balance has been -2.5 L over the past 24 hours and if she is producing good urine output. She remains on Lasix 60 mg in the morning and 40 mg in the evenings p.o. and the patient remains on Aldactone 25 mg p.o. daily and Zaroxolyn 5 mg p.o. daily. She is utilizing her BiPAP routinely. No labs are available from today. Nevertheless, the patient is awake and alert and communicating. No other significant events overnight. On 10/16/2024, the patient remains clinically stable. No new complaints. Remains in negative fluid balance. She has developed some metabolic alkalosis with a serum bicarb of 37. BUN is 24 with a creatinine of 1.2. The white cell count is at 7.7 with a hemoglobin of 7.5. Continues to utilize her BiPAP on a regular basis. After BiPAP, she is on 5 L of oxygen nasal cannula. No new complaints. Diuretics include Lasix 60 mg morning and 40 mg the evening and the patient remains on Zaroxolyn and Aldactone. Objective - Vital Signs Vital signs: Vital Signs Temp 98.3 F 10/16/24 08:00 Pulse 60 10/16/24 08:00 Resp 16 10/16/24 08:00 BP 95/39 10/16/24 08:00 Pulse Ox 93 L 10/16/24 08:00 FiO2 Intake & Output 10/15/24 10/16/24 10/16/24 18:59 06:59 18:59 Intake Total 740 250 Output Total 1000 400 Balance -260 -150 Weight 123.7 kg Intake: IV 20 10 Invasive Line 2 20 10 Oral 720 240 Output: Urine 1000 400 Other: Voiding Method External Catheter External Catheter External Catheter # Voids 1 - Exam The patient appeared well nourished and normally developed. Vital signs as documented. At the time of my evaluation, the patient was utilizing her home BiPAP from home at a pressure of 18/14 cm of water. While off the BiPAP, the patient is on 5 L. Head exam is unremarkable. No scleral icterus or corneal arcus noted. Neck is without jugular venous distension, thyromegaly, or carotid bruits. Carotid upstrokes are brisk bilaterally. Lungs are clear to auscultation and percussion. Diminished breath sound lung base especially left lung base along with dullness to percussion. Cardiac exam reveals the PMI to be normally sized and situated. Rhythm is regular. First and second heart sounds normal. No murmurs, rubs or gallops. Patient has a pacemaker in place. Abdominal exam reveals normal bowel sounds, no masses, no organomegaly and no aortic enlargement. Extremities show significant edema in all 4 extremities mainly in the lower extremities extending to her thighs and abdomen and both femoral and pedal pulses are normal. Examination of the skin revealed no evidence of significant rashes, suspicious appearing nevi or other concerning lesions. Neurologically, the patient is awake and alert and the patient does not have any focal neurological deficit. Cranial nerves are essentially intact. - Labs CBC & Chem 7: 10/16/24 06:04 10/16/24 06:04 Labs: Abnormal Lab Results - Last 24 Hours (Table) 10/15/24 10/15/24 10/16/24 Range/Units 17:12 20:20 06:04 RBC 3.11 L (3.80-5.40) m/uL Hgb 7.9 L (11.4-16.0) gm/dL Hct 26.3 L (34.0-46.0) % MCHC 30.1 L (31.0-37.0) g/dL RDW 18.3 H (11.5-15.5) % Plt Count 122 L (150-450) k/uL Lymphocytes # 0.5 L (1.0-4.8) k/uL Sodium (137-145) mmol/L Potassium (3.5-5.1) mmol/L Chloride (98-107) mmol/L Carbon Dioxide (22-30) mmol/L BUN (7-17) mg/dL Creatinine (0.52-1.04) mg/dL Glucose (74-99) mg/dL POC Glucose (mg/dL) 238 H 235 H (70-110) mg/dL Calcium (8.4-10.2) mg/dL 10/16/24 10/16/24 10/16/24 Range/Units 06:04 06:12 11:43 RBC (3.80-5.40) m/uL Hgb (11.4-16.0) gm/dL Hct (34.0-46.0) % MCHC (31.0-37.0) g/dL RDW (11.5-15.5) % Plt Count (150-450) k/uL Lymphocytes # (1.0-4.8) k/uL Sodium 134 L (137-145) mmol/L Potassium 3.4 L (3.5-5.1) mmol/L Chloride 91 L (98-107) mmol/L Carbon Dioxide 37 H (22-30) mmol/L BUN 24 H (7-17) mg/dL Creatinine 1.23 H (0.52-1.04) mg/dL Glucose 211 H (74-99) mg/dL POC Glucose (mg/dL) 235 H 226 H (70-110) mg/dL Calcium 7.8 L (8.4-10.2) mg/dL Assessment and Plan Plan: Acute on chronic dyspnea with signs of decompensated heart failure essentially due to diastolic heart failure and valvular heart disease. The patient had significant volume overload at time of admission and the patient has been diuresed with IV Lasix and she is currently on a combination of p.o. Lasix, Zaroxolyn and Aldactone. The patient maintains a negative fluid balance. Acute on chronic hypoxic respiratory failure, currently on 5 L of oxygen by nasal cannula Obstructive sleep apnea maintained on BiPAP pressure of 18/14 cm of water, utilizing her on device from home Acute on chronic anemia, s/p transfusion with a total of 3 units of packed RBC. Awaiting endoscopy History of valvular heart disease and the patient is status post aortic valve replacement, mitral valve replacement and tricuspid valve repair in May 2024 performed at [facility] Dual-chamber pacemaker insertion, November 2017 Paroxysmal A-fib maintained on anticoagulation with Eliquis Coronary artery disease with previous coronary stenting of the LAD and ostial PDA Diabetes mellitus type 2 Hyperlipidemia Hypertension Severe pulmonary hypertension, group 2 Metabolic alkalosis developed during this current hospital stay due to aggressiv e diuresis and the patient has been increased 8 to 9 L negative fluid balance with ongoing edema. The patient was given 2 doses of Diamox and the metabolic alkalosis improved. Plan Continue diuretics per cardiology, the patient remains on a combination of Lasix, Zaroxolyn and Aldactone. Monitor electrolytes including the serum bicarb level, as the patient has a component of metabolic alkalosis with a serum bicarb of 37 Monitor the hemoglobin and keep anticoagulation on hold and the hemoglobin remains stable Continue BiPAP at a pressure of 18/14 cm of water and the patient is using her own device Continue metoprolol Currently on 5 L of oxygen by nasal cannula with failure to to maintain sa turation above 90% Mild left-sided pleural effusion thoracentesis if needed Cardiology follow-up Will continue to follow
[2024-10-16 20:01] LABS: Glucose,Whole Blood 314 mg/dL (70-110)
[2024-10-17 06:11] LABS: Glucose,Whole Blood 168 mg/dL (70-110)
[2024-10-17 06:56] LABS: African American GFR (CKD) 51 (>60 ml/min/1.73 sqM); Blood Urea Nitrogen 25 mg/dL (7-17); Calcium 8.1 mg/dL (8.4-10.2); Chloride 91 mmol/L (98-107); Glucose 155 mg/dL (74-99); Magnesium 2.1 mg/dL (1.6-2.3); Non-African American GFR(CKD) 44 (>60 ml/min/1.73 sqM); Potassium 3.7 mmol/L (3.5-5.1); Sodium 133 mmol/L (137-145)
[2024-10-17 07:03] LABS: Anion Gap 7 mmol/L; Carbon Dioxide 35 mmol/L (22-30)
[2024-10-17 11:34] LABS: Glucose,Whole Blood 269 mg/dL (70-110)
--- NOTE | 2024-10-17 12:15 | P.PN ---
Subjective HISTORY OF PRESENT ILLNESS: This is a 79-year-old female patient of Dr. 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 We have been asked to evaluate the patient for CHF. Patient presented to the emergency center due to severe weakness and shortness of breath. Patient underwent aortic valve replacement, mitral valve replacement and tricuspid valve repair at [facility] in May of this year. She has had follow-up with Dr. Watson with complaints of continued limited physical activity, dyspnea and peripheral edema and fatigue. She has not felt any real improvement of her symptoms since she had her surgery and is disappointed about that. She denies having any chest pain or chest pressure. Her shortness of breath seems to be worsening and she has had significantly worse edema extending into her abdomen. She apparently has also been started on home oxygen which she is increased to 7 L. Regarding anemia, patient did receive 3 to 4 units after her surgery in May and she has had follow-up lab work done in July with her PCP and she was not contacted about any abnormality at that time. Also, patient is not eating or drinking very much. She states she has no appetite and has lost her sense of taste since the surgery. She denies any abdominal pain. Daughter states that she has had a distended abdomen for few weeks that waxes and wanes. Patient states her stools are very dark but not black. She has not been on iron at home. She has been taking baby aspirin and Eliquis although aspirin is not listed on her home medication list. She denies any vaginal bleeding. Blood pressure 116/60, heart rate 100, pulse ox 99% on CPAP. Patient is seen today in the emergency center waiting for a bed on the cardiac stepdown unit. Eliquis has been placed on hold. Patient has been seen by GI with plan for EGD tomorrow if cleared by cardiology. -EKG: Atrial paced rhythm -Chest x-ray: Cardiomegaly, pulmonary vascular congestion and bilateral pleural effusions. -Laboratory studies: Hemoglobin initially 6.2 now 5.5. Sodium 134, BUN 32 and creatinine 0.91. Hemoglobin A1c 7.5. Troponin 0.065, 0.052, 0.048. proBNP 2830. -Home cardiac medications: Eliquis 5 mg twice daily, Lasix 20 mg twice daily, Imdur 30 mg daily, Toprol-XL 50 mg daily, Crestor 40 mg at bedtime, also on levothyroxine 175 mcg daily. -Echocardiogram performed 05/24/2024 revealed normal EF, prosthetic AV, prosthetic MV, TV repair. -Cardiovascular surgery 05/20/2024: Tissue AVR, tissue MVR, TV repair -Previous CV surgery 11/06/2018: TAVR. -Cardiac catheterization 2020 with stent placed in the mid D1, stent in the ostial PDA. 10/12/2024 Patient examined this morning at the bedside. Patient currently denies chest pain or pressure. She denies shortness of breath. She continues to have significant lower extremity edema. Patient is feeling ember at the bedside also reports she has a lot of swelling around her abdomen which is not normal for her. Echocardiogram completed revealing ejection fraction 60 to 65%, status post mitral valve replacement, mild mitral stenosis, mean gradient 6 mmHg, aortic valve replacement with no perivalvular aortic regurgitation, moderate to severe pulmonary hypertension. Hemoglobin today 8.1. Telemetry reveals paced rhythm at 60. 10/13/2024 Patient examined this morning at the bedside. Patient is currently sitting up in the chair. Patient currently denies chest pain or pressure. She denies shortness of breath. She remains on IV diuretics. She continues to have lower extremity edema. CO2 42 today. She has been started on Diamox per pulmonary medicine. blood pressure 118/63. BUN 19. Creatinine 1.04. Hemoglobin today 8.2. Eliquis remains on hold. Telemetry reveals paced rhythm. 10/14/2024 Patient examined this morning the bedside. Patient denies having any chest pain or pressure. She denies shortness of breath. Remains on IV Lasix. Patient CO2 improved today. She was given Diamox x 2 doses yesterday per pulmonary medicine. She continues to have lower extremity edema although improving. Telemetry reveals paced rhythm. 10/15/2024 Patient examined this morning at the bedside. Patient on CPAP at the time of examination. She denies chest pain or pressure. She denies shortness of breath. She has been transitioned to oral Lasix. 10/16/2024 Patient examined this morning at the bedside. Patient currently denies chest pain or pressure. She denies shortness of breath. She remains on oral diuretics. Creatinine today 1.23. Patient's lower extremity edema is slowly improving. Hemoglobin stable at 7.9. Her Eliquis remains on hold. 10/17/2024 Patient examined this morning. She is sitting up in the chair. Patient currently denies chest pain or pressure. She denies shortness of breath. She remains on oral diuretics. Creatinine today 1.19. It was noted that the patient was eating Pringles yesterday plan evaluation. Patient was once again educated on low-sodium diet. She verbalized understanding. PHYSICAL EXAM: VITAL SIGNS: Reviewed. GENERAL: Well-developed in no acute distress. NECK: Supple. No JVD or thyromegaly LUNGS: Respirations even and unlabored. Lungs essentially clear to auscultation bilaterally. HEART: Regular rate and rhythm. S1 and S2 heard. Systolic murmur noted. EXTREMITIES: Normal range of motion. No clubbing or cyanosis. Peripheral pulses intact. 2+ pitting bilateral lower extremity edema, improving ASSESSMENT: Acute on chronic diastolic heart failure Severe anemia, status post RBC transfusion, endoscopy canceled secondary to heart failure Probable acute blood loss anemia secondary to acute on chronic GI bleed History of aortic valve replacement, mitral valve replacement, tricuspid valve repair May 2024 at [facility] Coronary artery disease with prior stenting Dual-chamber pacemaker, [facility] [employer], November 2017 Paroxysmal atrial fibrillation on Eliquis Hyperlipidemia Diabetes mellitus type 2 Hypertension Moderate to severe pulmonary hypertension PLAN: Continue to monitor hemoglobin. Eliquis remains on hold. Continue oral Lasix 60 mg in the morning and 40 mg in the afternoon Daily weights, accurate intake and output, and monitoring of kidney function Patient is currently stable from a cardiac perspective Further recommendations pending patient course Nurse practitioner note has been reviewed by physician. Signing provider agrees with the documented findings, assessment, and plan of care documented by [employer] REPRESENTATIVE as a scribe. Objective - Vital Signs Vital signs: Vital Signs Temp 98.0 F 10/17/24 11:36 Pulse 64 10/17/24 11:36 Resp 17 10/17/24 11:36 BP 110/65 10/17/24 11:36 Pulse Ox 100 10/17/24 11:36 FiO2 Intake & Output 10/16/24 10/17/24 10/17/24 18:59 06:59 18:59 Intake Total 240 190 Balance 240 190 Weight 123.9 kg Intake: IV 10 Invasive Line 3 10 Oral 240 180 Other: Voiding Method External Catheter External Catheter Toilet External Catheter # Voids 1 - Labs CBC & Chem 7: 10/16/24 06:04 10/17/24 06:25 Labs: Abnormal Lab Results - Last 24 Hours (Table) 10/16/24 10/16/24 10/17/24 Range/Units 16:32 20:00 06:10 Sodium (137-145) mmol/L Chloride (98-107) mmol/L Carbon Dioxide (22-30) mmol/L BUN (7-17) mg/dL Creatinine (0.52-1.04) mg/dL Glucose (74-99) mg/dL POC Glucose (mg/dL) 252 H 314 H 168 H (70-110) mg/dL Calcium (8.4-10.2) mg/dL 10/17/24 10/17/24 Range/Units 06:25 11:33 Sodium 133 L (137-145) mmol/L Chloride 91 L (98-107) mmol/L Carbon Dioxide 35 H (22-30) mmol/L BUN 25 H (7-17) mg/dL Creatinine 1.19 H (0.52-1.04) mg/dL Glucose 155 H (74-99) mg/dL POC Glucose (mg/dL) 269 H (70-110) mg/dL Calcium 8.1 L (8.4-10.2) mg/dL
[2024-10-17] MEDS: ZINC OXIDE PASTE (Z-GUARD) 1 APPLIC TOPICAL PRN (13:32)
--- NOTE | 2024-10-17 14:20 | P.PN ---
Subjective Progress Note Date: 10/17/24 This is a 79-year-old female patient who is being seen in consultation for metabolic alkalosis. The patient was hospitalized on 10/08/2024 and the patient was in significant volume overload and she was also complaining of some shortness of breath and the patient's chest x-ray showed a left-sided pleural effusion. The patient had previous history of aortic valve placement and mitral valve replacement and tricuspid valve repair patient also has history of coronary artery disease and the patient has undergone previous stenting of the mid LAD and ostial PDA.The patient has a dual-chamber pacemaker insertion. She has paroxysmal atrial fibrillation, diabetes mellitus type 2, hypertension hyperlipidemia. The patient underwent her cardiac surgery at the [facility] back in May of this year. She has been [facility]. She is also known to have obstructive sleep apnea. I have seen her in the sleep center in the past and the patient has been maintained on the BiPAP pressure of 18 over 14 cm of water and she has been quite compliant with treatment. She is also on oxygen and she had progressive worsening in her hypoxemia along with increased shortness of breath. Based on that, the patient came into the hospital. EKG showed a paced rhythm. The chest x-ray showed cardiomegaly and bilateral pleural effusion worse on the left. The patient's hemoglobin was low at 6.2 and dropped down to 5.5. The patient was transfused with a total of 3 units of packed RBC during the current hospitalization the patient's hemoglobin is currently is at 8.2. A repeat echocardiogram was done during this current hospitalization on 10/09/2024 and the patient was found to have a normal LV with an ejection fraction of 6065%, severe pulm hypertension with a PA pressure of 56. The patient had mitral valve replacement with mild mitral stenosis and aortic valve replacement without any valvular abnormalities or regurgitation. No evidence of any pericardial effusion. During this current admission, the patient was subjected to diuresis the patient is currently on Lasix 40 mg IV every 8 hours and the patient is also on Zaroxolyn 5 mg p.o. daily and Aldactone 25 mg p.o. daily. I checked the fluid balance and over the past 4 days, the patient has been in the negative fluid balance of at least 8 L. There has been also steady increase in his serum bicarb. The patient is initial bicarb at the time of admission was 28 and currently is up to 42. I obtained a follow-up chest x-ray this morning and it showed overall stable findings consistent with CHF and pulm vessel congestion. There is a small to moderate-sized left-sided pleural effusion along with some adjacent atelectatic change. Hemoglobin is at 8.2 with a white cell count of 6.4 and a platelet count of 127. BUN is 19 with a creatinine of 1.09 and sodium levels at 136 and potassium levels at 3.1. She remains on Levemir insulin 20 units nightly and NovoLog sliding scale coverage. She is also on Toprol 50 mg p.o. twice daily and IV Protonix. She remains on aspirin. On 10/14/2024, the patient is being seen for a follow-up. The patient is doing well. She continues to diurese well. Fluid balance has been -2.5 L over the past 24 hours. Nevertheless, she continues to have significant amount of edema in the abdomen lower extremities involving the thighs. BUN is 18 with a creatinine of 1.22. The patient developed metabolic alkalosis. The serum bicarb was quite elevated and the patient received a total of 2 doses of Diamox and the serum bicarb is down to 37. Meanwhile, the diuretics have been modified and the patient is currently on Lasix 60 mg in the morning and 40 mg in the evening. The patient is also on Zaroxolyn 5 mg p.o. daily and Aldactone 25 mg p.o. daily. The patient is utilizing her BiPAP and once off the BiPAP, she is maintaining herself on oxygen at 5 L/min nasal cannula. No significant shortness of breath. No cough or sputum production. Edema still extensive. On 10/15/2024, the patient is being seen for a follow-up. Doing well. Still has edema lower extremities. Nevertheless, the fluid balance has been -2.5 L over the past 24 hours and if she is producing good urine output. She remains on Lasix 60 mg in the morning and 40 mg in the evenings p.o. and the patient remains on Aldactone 25 mg p.o. daily and Zaroxolyn 5 mg p.o. daily. She is utilizing her BiPAP routinely. No labs are available from today. Nevertheless, the patient is awake and alert and communicating. No other significant events overnight. On 10/16/2024, the patient remains clinically stable. No new complaints. Remains in negative fluid balance. She has developed some metabolic alkalosis with a serum bicarb of 37. BUN is 24 with a creatinine of 1.2. The white cell count is at 7.7 with a hemoglobin of 7.5. Continues to utilize her BiPAP on a regular basis. After BiPAP, she is on 5 L of oxygen nasal cannula. No new complaints. Diuretics include Lasix 60 mg morning and 40 mg the evening and the patient remains on Zaroxolyn and Aldactone. On 10/17/2024, the patient is sitting up in a chair and she is calm and comfortable and she reports improvement in her volume status and edema in lower extremities. She remains negative fluid balance. She continues to be on di uretics, a combination of Lasix, Aldactone and Zaroxolyn. Fluid balance is negative. BUN 25 with a creatinine of 1.1. Sodium levels at 133. No altered mentation. Using BiPAP and once off the BiPAP, the patient is on oxygen at 5 L/min nasal cannula. No cough. No sputum production. No fever or chills. No altered mentation. Objective - Vital Signs Vital signs: Vital Signs Temp 97.6 F 10/17/24 08:28 Pulse 60 10/17/24 08:28 Resp 17 10/17/24 08:29 BP 99/65 10/17/24 08:28 Pulse Ox 97 10/17/24 08:28 FiO2 Intake & Output 10/16/24 10/17/24 10/17/24 18:59 06:59 18:59 Intake Total 240 190 Balance 240 190 Weight 123.9 kg Intake: IV 10 Invasive Line 3 10 Oral 240 180 Other: Voiding Method External Catheter External Catheter Toilet External Catheter - Exam The patient appeared well nourished and normally developed. Vital signs as documented. At the time of my evaluation, the patient was utilizing her home BiPAP from home at a pressure of 18/14 cm of water. While off the BiPAP, the patient is on 5 L. Head exam is unremarkable. No scleral icterus or corneal arcus noted. Neck is without jugular venous distension, thyromegaly, or carotid bruits. Carotid upstrokes are brisk bilaterally. Lungs are clear to auscultation and percussion. Diminished breath sound lung base especially left lung base along with dullness to percussion. Cardiac exam reveals the PMI to be normally sized and situated. Rhythm is regular. First and second heart sounds normal. No murmurs, rubs or gallops. Patient has a pacemaker in place. Abdominal exam reveals normal bowel sounds, no masses, no organomegaly and no aortic enlargement. Extremities show significant edema in all 4 extremities mainly in the lower extremities extending to her thighs and abdomen and both femoral and pedal pulses are normal. Examination of the skin revealed no evidence of significant rashes, suspicious appearing nevi or other concerning lesions. Neurologically, the patient is awake and alert and the patient does not have any focal neurological deficit. Cranial nerves are essentially intact. - Labs CBC & Chem 7: 10/16/24 06:04 10/17/24 06:25 Labs: Abnormal Lab Results - Last 24 Hours (Table) 10/16/24 10/16/24 10/16/24 Range/Units 11:43 16:32 20:00 Sodium (137-145) mmol/L Chloride (98-107) mmol/L Carbon Dioxide (22-30) mmol/L BUN (7-17) mg/dL Creatinine (0.52-1.04) mg/dL Glucose (74-99) mg/dL POC Glucose (mg/dL) 226 H 252 H 314 H (70-110) mg/dL Calcium (8.4-10.2) mg/dL 10/17/24 10/17/24 Range/Units 06:10 06:25 Sodium 133 L (137-145) mmol/L Chloride 91 L (98-107) mmol/L Carbon Dioxide 35 H (22-30) mmol/L BUN 25 H (7-17) mg/dL Creatinine 1.19 H (0.52-1.04) mg/dL Glucose 155 H (74-99) mg/dL POC Glucose (mg/dL) 168 H (70-110) mg/dL Calcium 8.1 L (8.4-10.2) mg/dL Assessment and Plan Plan: Acute on chronic dyspnea with signs of decompensated heart failure essentially due to diastolic heart failure and valvular heart disease. The patient had significant volume overload at time of admission and the patient has been diuresed with IV Lasix and she is currently on a combination of p.o. Lasix, Zaroxolyn and Aldactone. The patient maintains a negative fluid balance. Acute on chronic hypoxic respiratory failure, currently on 5 L of oxygen by nasal cannula Obstructive sleep apnea maintained on BiPAP pressure of 18/14 cm of water, utilizing her on device from home Acute on chronic anemia, s/p transfusion with a total of 3 units of packed RBC. Awaiting endoscopy History of valvular heart disease and the patient is status post aortic valve replacement, mitral valve replacement and tricuspid valve repair in May 2024 performed at [facility] Dual-chamber pacemaker insertion, November 2017 Paroxysmal A-fib maintained on anticoagulation with Eliquis Coronary artery disease with previous coronary stenting of the LAD and ostial PDA Diabetes mellitus type 2 Hyperlipidemia Hypertension Severe pulmonary hypertension, group 2 Metabolic alkalosis developed during this current hospital stay due to aggressive diuresis and the patient has been increased 8 to 9 L negative fluid balance with ongoing edema. The patient was given 2 doses of Diamox and the metabolic alkalosis improved. Plan Continue diuretics per cardiology, the patient remains on a combination of Lasix, Zaroxolyn and Aldactone. Monitor electrolytes including the serum bicarb level, as the patient has a component of metabolic alkalosis with a serum bicarb of 37 Monitor the hemoglobin and keep anticoagulation on hold and the hemoglobin remains stable Continue BiPAP at a pressure of 18/14 cm of water and the patient is using her own device Continue metoprolol Currently on 5 L of oxygen by nasal cannula with failure to to maintain saturation above 90% Awaiting GI workup regarding possibility of GI bleed. She is being considered for EGD and colonoscopy Will continue to follow
[2024-10-17 16:10] LABS: Glucose,Whole Blood 275 mg/dL (70-110)
--- NOTE | 2024-10-17 19:55 | P.PN ---
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 She complains that ever since her heart surgery at [facility] she has felt short of breath and did not get any real improvement from the procedure. She denies having any chest pain or chest pressure. She complains her shortness of breath recently worsened and she had to turn her oxygen up. She denies abdominal pain although endorses lack of radha etite. Patient states her stools are very dark but not black. Blood pressure 116/60, heart rate 100, pulse ox 99% on CPAP. [facility] Patient presents reports of dyspnea. Patient states her breathing is better today No chest pain Currently she is getting blood transfusion Patient had severe anemia on admission with hemoglobin 5.5 and 6.3, after blood transfusion 6.9 GI team saw her yesterday but patient was not cleared by key account executive to undergo EGD which is held now Patient remains on IV Protonix Eliquis is on hold for her A-fib and other cardiac diseases Also she was placed on IV Lasix 40 mg twice daily given her acute CHF. And also on review of her blood transfusion Cardiology team added aspirin 81 mg while she is off Eliquis Ejection fraction is 60-65 percent, severe pulmonary hypertension with RVSP is 56 Hemoglobin A1c is elevated at 7.5% 10/11 Patient sitting at the edge of the bed She is still complaining from some dyspnea but improving. Still complaining from 2-3+ bilateral pitting leg edema. Also patient drinking a lot of water, she was counseled extensively about fluid restriction and she agrees She is kept on IV Lasix 40 mg twice daily. Fluid restriction is added Currently her Eliquis is on hold and she was started on aspirin 81 mg Patient evaluated by GI team however she was not cleared to undergo EGD/colonoscopy by key account executive. Patient status 3 units of blood transfusion and hemoglobin improved to 8.9 Hemoglobin A1c 7.5 Ejection fraction 60 to 65% with severe pulmonary hypertension with RVSP at 56 10/12 Patient breathing is better No blood in stool and she has a brown bowel movement She is diuresing very well while she kept on 100 mg of oral Lasix daily at 40 mg in the morning and 60 mg in the evening plus metolazone 5 mg. Eliquis remains on hold, GI team consult EGD because patient was not cleared by key account executive earlier in the week. Will keep monitoring hemoglobin while off Eliquis for her paroxysmal A-fib. She is currently on aspirin added instead of holding Eliquis She is on oral Lasix and IV Protonix 10/16 Patient keep doing well She is on 5 L oxygen via nasal cannula No other new complaint Hemoglobin improved to 7.9 today Creatinine stable 1.2. Low potassium replaced at 3.4 She remains on p.o. Lasix 40 mg in the evening and 40 mg in the a.m. twice daily 10/17 currently patient is euvolemic And kept on oral Lasix 40 mg daily and metolazone 5 mg daily. Creatinine stable at 1.1. Patient is stable now per key account executive. Pending the GI team for further workup. Possible EGD and colonoscopy. Eliquis is on hold. Objective - Vital Signs Vital signs: Vital Signs Temp 98.0 F 10/17/24 11:36 Pulse 64 10/17/24 13:25 Resp 17 10/17/24 13:25 BP 110/65 10/17/24 11:36 Pulse Ox 100 10/17/24 11:36 FiO2 Intake & Output 10/16/24 10/17/24 10/17/24 18:59 06:59 18:59 Intake Total 240 380 Balance 240 380 Weight 123.9 kg Intake: IV 20 Invasive Line 3 20 Oral 240 360 Other: Voiding Method External Catheter External Catheter Toilet External Catheter # Voids 1 - Exam -GENERAL: The patient is alert and oriented x3, not in any acute distress. Well developed, well nourished. Patient looks somewhat pale and tired HEENT: Pupils are round and equally reacting to light. EOMI. No scleral icterus. No conjunctival pallor. Normocephalic, atraumatic. No pharyngeal erythema. No thyromegaly. CARDIOVASCULAR: S1 and S2 present. No murmurs, rubs, or gallops. -PULMONARY: Chest is clear to auscultation, no wheezing , bilateral basal crackles. ABDOMEN: Soft, nontender, nondistended, normoactive bowel sounds. No palpable organomegaly. MUSCULOSKELETAL: No joint swelling or deformity. -EXTREMITIES: No cyanosis, clubbing,. Bilateral pitting leg edema. NEUROLOGICAL: Gross neurological examination did not reveal any focal deficits. SKIN: No rashes. no petechiae. - Labs CBC & Chem 7: 10/16/24 06:04 10/17/24 06:25 Labs: Abnormal Lab Results - Last 24 Hours (Table) 10/16/24 10/16/24 10/17/24 Range/Units 16:32 20:00 06:10 Sodium (137-145) mmol/L Chloride (98-107) mmol/L Carbon Dioxide (22-30) mmol/L BUN (7-17) mg/dL Creatinine (0.52-1.04) mg/dL Glucose (74-99) mg/dL POC Glucose (mg/dL) 252 H 314 H 168 H (70-110) mg/dL Calcium (8.4-10.2) mg/dL 10/17/24 10/17/24 Range/Units 06:25 11:33 Sodium 133 L (137-145) mmol/L Chloride 91 L (98-107) mmol/L Carbon Dioxide 35 H (22-30) mmol/L BUN 25 H (7-17) mg/dL Creatinine 1.19 H (0.52-1.04) mg/dL Glucose 155 H (74-99) mg/dL POC Glucose (mg/dL) 269 H (70-110) mg/dL Calcium 8.1 L (8.4-10.2) mg/dL Assessment and Plan Assessment: Acute blood loss severe anemia, present on admission. Acute on chronic diastolic CHF with ejection fraction 60 to 65% History of aortic valve replacement, mitral valve replacement and tricuspid valve repair on 05/2024 Diabetes mellitus Coronary artery disease Paroxysmal atrial fibrillation status post dual-chamber pacemaker Hypertension Hyperlipidemia Plan: Monitor hemoglobin. Eliquis is on hold and patient was started on aspirin by key account executive GI team evaluated the patient, recommended EGD however patient was not cleared by key account executive yet. No GI service in this frail state during the weekend. Currently key account executive found her stable and GI team might consider further workup now Continue with IV Protonix Continue with oral Lasix plus metolazone And fluid restriction Resume cardiac medication Labs and medication were reviewed.. Continue same treatment. Continue with symptomatic treatment. Resume home medication. Monitor labs and vitals. DVT and GI prophylaxis. Further recommendations as per clinical course of the patient DVT prophylaxis: hold anticoagulation in view of severe anemia GI Prophylaxis: Protonix Prognosis is guarded
[2024-10-17 19:58] LABS: Glucose,Whole Blood 218 mg/dL (70-110)
[2024-10-18 06:06] LABS: Glucose,Whole Blood 149 mg/dL (70-110)
[2024-10-18 08:14] LABS: Anisocytosis Slight; Basophils # (A) 0.1 k/uL (0-0.2); Basophils % (A) 1 %; Eosinophils # (A) 0.2 k/uL (0-0.7); Eosinophils % (A) 3 %; HCT 26.7 % (34.0-46.0); HGB 8.1 gm/dL (11.4-16.0); Hypochromasia Marked; Lymphocytes # (A) 0.4 k/uL (1.0-4.8); Lymphocytes % (A) 6 %; MCH 25.6 pg (25.0-35.0); MCHC 30.2 g/dL (31.0-37.0); MCV 84.7 fL (80.0-100.0); Mean Platelet Volume 7.8; Monocytes # (A) 0.4 k/uL (0-1.0); Monocytes % (A) 6 %; Neutrophils # (A) 5.5 k/uL (1.3-7.7); Neutrophils % (A) 83 %; Platelet Count 146 k/uL (150-450); Poikilocytosis Slight; RBC 3.15 m/uL (3.80-5.40); RDW 18.8 % (11.5-15.5); WBC 6.6 k/uL (3.8-10.6)
[2024-10-18 08:29] LABS: African American GFR (CKD) 49 (>60 ml/min/1.73 sqM); Blood Urea Nitrogen 25 mg/dL (7-17); Calcium 8.2 mg/dL (8.4-10.2); Chloride 89 mmol/L (98-107); Glucose 127 mg/dL (74-99); Non-African American GFR(CKD) 42 (>60 ml/min/1.73 sqM); Potassium 3.8 mmol/L (3.5-5.1); Sodium 136 mmol/L (137-145)
[2024-10-18 08:38] LABS: Anion Gap 8 mmol/L
[2024-10-18 08:45] LABS: Carbon Dioxide 39 mmol/L (22-30)
--- NOTE | 2024-10-18 11:24 | P.PN ---
Subjective HISTORY OF PRESENT ILLNESS: This is a 79-year-old female patient of Dr. 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 We have been asked to evaluate the patient for CHF. Patient presented to the emergency center due to severe weakness and shortness of breath. Patient underwent aortic valve replacement, mitral valve replacement and tricuspid valve repair at [facility] in May of this year. She has had follow-up with Dr. Watson with complaints of continued limited physical activity, dyspnea and peripheral edema and fatigue. She has not felt any real improvement of her symptoms since she had her surgery and is disappointed about that. She denies having any chest pain or chest pressure. Her shortness of breath seems to be worsening and she has had significantly worse edema extending into her abdomen. She apparently has also been started on home oxygen which she is increased to 7 L. Regarding anemia, patient did receive 3 to 4 units after her surgery in May and she has had follow-up lab work done in July with her PCP and she was not contacted about any abnormality at that time. Also, patient is not eating or drinking very much. She states she has no appetite and has lost her sense of taste since the surgery. She denies any abdominal pain. Daughter states that she has had a distended abdomen for few weeks that waxes and wanes. Patient states her stools are very dark but not black. She has not been on iron at home. She has been taking baby aspirin and Eliquis although aspirin is not listed on her home medication list. She denies any vaginal bleeding. Blood pressure 116/60, heart rate 100, pulse ox 99% on CPAP. Patient is seen today in the emergency center waiting for a bed on the cardiac stepdown unit. Eliquis has been placed on hold. Patient has been seen by GI with plan for EGD tomorrow if cleared by cardiology. -EKG: Atrial paced rhythm -Chest x-ray: Cardiomegaly, pulmonary vascular congestion and bilateral pleural effusions. -Laboratory studies: Hemoglobin initially 6.2 now 5.5. Sodium 134, BUN 32 and creatinine 0.91. Hemoglobin A1c 7.5. Troponin 0.065, 0.052, 0.048. proBNP 2830. -Home cardiac medications: Eliquis 5 mg twice daily, Lasix 20 mg twice daily, Imdur 30 mg daily, Toprol-XL 50 mg daily, Crestor 40 mg at bedtime, also on levothyroxine 175 mcg daily. -Echocardiogram performed 05/24/2024 revealed normal EF, prosthetic AV, prosthetic MV, TV repair. -Cardiovascular surgery 05/20/2024: Tissue AVR, tissue MVR, TV repair -Previous CV surgery 11/06/2018: TAVR. -Cardiac catheterization 2020 with stent placed in the mid D1, stent in the ostial PDA. 10/12/2024 Patient examined this morning at the bedside. Patient currently denies chest pain or pressure. She denies shortness of breath. She continues to have significant lower extremity edema. Patient is feeling ember at the bedside also reports she has a lot of swelling around her abdomen which is not normal for her. Echocardiogram completed revealing ejection fraction 60 to 65%, status post mitral valve replacement, mild mitral stenosis, mean gradient 6 mmHg, aortic valve replacement with no perivalvular aortic regurgitation, moderate to severe pulmonary hypertension. Hemoglobin today 8.1. Telemetry reveals paced rhythm at 60. 10/13/2024 Patient examined this morning at the bedside. Patient is currently sitting up in the chair. Patient currently denies chest pain or pressure. She denies shortness of breath. She remains on IV diuretics. She continues to have lower extremity edema. CO2 42 today. She has been started on Diamox per pulmonary medicine. blood pressure 118/63. BUN 19. Creatinine 1.04. Hemoglobin today 8.2. Eliquis remains on hold. Telemetry reveals paced rhythm. 10/14/2024 Patient examined this morning the bedside. Patient denies having any chest pain or pressure. She denies shortness of breath. Remains on IV Lasix. Patient CO2 improved today. She was given Diamox x 2 doses yesterday per pulmonary medicine. She continues to have lower extremity edema although improving. Telemetry reveals paced rhythm. 10/15/2024 Patient examined this morning at the bedside. Patient on CPAP at the time of examination. She denies chest pain or pressure. She denies shortness of breath. She has been transitioned to oral Lasix. 10/16/2024 Patient examined this morning at the bedside. Patient currently denies chest pain or pressure. She denies shortness of breath. She remains on oral diuretics. Creatinine today 1.23. Patient's lower extremity edema is slowly improving. Hemoglobin stable at 7.9. Her Eliquis remains on hold. 10/17/2024 Patient examined this morning. She is sitting up in the chair. Patient currently denies chest pain or pressure. She denies shortness of breath. She remains on oral diuretics. Creatinine today 1.19. It was noted that the patient was eating Pringles yesterday plan evaluation. Patient was once again educated on low-sodium diet. She verbalized understanding. 10/18/2024 Patient examined this morning at the bedside. Patient currently denies chest pain or pressure. She denies shortness of breath. She remains on oral diuretics. Creatinine stable at 1.23. Hemoglobin stable at 8.1. Her Eliquis remains on hold. PHYSICAL EXAM: VITAL SIGNS: Reviewed. GENERAL: Well-developed in no acute distress. NECK: Supple. No JVD or thyromegaly LUNGS: Respirations even and unlabored. Lungs essentially clear to auscultation bilaterally. HEART: Regular rate and rhythm. S1 and S2 heard. Systolic murmur noted. EXTREMITIES: Normal range of motion. No clubbing or cyanosis. Peripheral pulses intact. 1-2+ pitting bilateral lower extremity edema, improving ASSESSMENT: Acute on chronic diastolic heart failure Severe anemia, status post RBC transfusion, endoscopy canceled secondary to heart failure Probable acute blood loss anemia secondary to acute on chronic GI bleed History of aortic valve replacement, mitral valve replacement, tricuspid valve repair May 2024 at [facility] Coronary artery disease with prior stenting Dual-chamber pacemaker, [facility] [employer], November 2017 Paroxysmal atrial fibrillation on Eliquis Hyperlipidemia Diabetes mellitus type 2 Hypertension Moderate to severe pulmonary hypertension PLAN: Continue to monitor hemoglobin. Eliquis remains on hold. Continue oral Lasix 60 mg in the morning and 40 mg in the afternoon Daily weights, accurate intake and output, and monitoring of kidney function Patient is currently stable from a cardiac perspective Further recommendations pending patient course Nurse practitioner note has been reviewed by physician. Signing provider agrees with the documented findings, assessment, and plan of care documented by [employer] as a scribe. Objective - Vital Signs Vital signs: Vital Signs Temp 97.7 F 10/18/24 08:06 Pulse 61 10/18/24 08:07 Resp 19 10/18/24 08:07 BP 100/56 10/18/24 08:06 Pulse Ox 92 L 10/18/24 08:06 FiO2 Intake & Output 10/17/24 10/18/24 10/18/24 18:59 06:59 18:59 Intake Total 380 20 246 Output Total 300 Balance 80 20 246 Weight 122.5 kg Intake: IV 20 20 10 Invasive Line 3 20 20 10 Oral 360 236 Output: Urine 300 Other: Voiding Method Toilet Toilet Toilet External Catheter External Catheter External Catheter # Voids 1 # Bowel Movements 1 - Labs CBC & Chem 7: 10/18/24 07:36 10/18/24 07:36 Labs: Abnormal Lab Results - Last 24 Hours (Table) 10/17/24 10/17/24 10/17/24 Range/Units 11:33 16:09 19:57 RBC (3.80-5.40) m/uL Hgb (11.4-16.0) gm/dL Hct (34.0-46.0) % MCHC (31.0-37.0) g/dL RDW (11.5-15.5) % Plt Count (150-450) k/uL Lymphocytes # (1.0-4.8) k/uL Sodium (137-145) mmol/L Chloride (98-107) mmol/L Carbon Dioxide (22-30) mmol/L BUN (7-17) mg/dL Creatinine (0.52-1.04) mg/dL Glucose (74-99) mg/dL POC Glucose (mg/dL) 269 H 275 H 218 H (70-110) mg/dL Calcium (8.4-10.2) mg/dL 10/18/24 10/18/24 10/18/24 Range/Units 06:05 07:36 07:36 RBC 3.15 L (3.80-5.40) m/uL Hgb 8.1 L (11.4-16.0) gm/dL Hct 26.7 L (34.0-46.0) % MCHC 30.2 L (31.0-37.0) g/dL RDW 18.8 H (11.5-15.5) % Plt Count 146 L (150-450) k/uL Lymphocytes # 0.4 L (1.0-4.8) k/uL Sodium 136 L (137-145) mmol/L Chloride 89 L (98-107) mmol/L Carbon Dioxide 39 H (22-30) mmol/L BUN 25 H (7-17) mg/dL Creatinine 1.23 H (0.52-1.04) mg/dL Glucose 127 H (74-99) mg/dL POC Glucose (mg/dL) 149 H (70-110) mg/dL Calcium 8.2 L (8.4-10.2) mg/dL
[2024-10-18 11:27] LABS: Glucose,Whole Blood 243 mg/dL (70-110)
--- NOTE | 2024-10-18 13:30 | P.PN ---
Subjective Progress Note Date: 10/18/24 This is a 79-year-old female patient who is being seen in consultation for metabolic alkalosis. The patient was hospitalized on 10/08/2024 and the patient was in significant volume overload and she was also complaining of some shortness of breath and the patient's chest x-ray showed a left-sided pleural effusion. The patient had previous history of aortic valve placement and mitral valve replacement and tricuspid valve repair patient also has history of coronary artery disease and the patient has undergone previous stenting of the mid LAD and ostial PDA.The patient has a dual-chamber pacemaker insertion. She has paroxysmal atrial fibrillation, diabetes mellitus type 2, hypertension hyperlipidemia. The patient underwent her cardiac surgery at the [facility] back in May of this year. She has been followed by [facility]. She is also known to have obstructive sleep apnea. I have seen her in the sleep center in the past and the patient has been maintained on the BiPAP pressure of 18 over 14 cm of water and she has been quite compliant with treatment. She is also on oxygen and she had progressive worsening in her hypoxemia along with increased shortness of breath. Based on that, the patient came into the hospital. EKG showed a paced rhythm. The chest x-ray showed cardiomegaly and bilateral pleural effusion worse on the left. The patient's hemoglobin was low at 6.2 and dropped down to 5.5. The patient was transfused with a total of 3 units of packed RBC during the current hospitalization the patient's hemoglobin is currently is at 8.2. A repeat echocardiogram was done during this current hospitalization on 10/09/2024 and the patient was found to have a normal LV with an ejection fraction of 6065%, severe pulm hypertension with a PA pressure of 56. The patient had mitral valve replacement with mild mitral stenosis and aortic valve replacement without any valvular abnormalities or regurgitation. No evidence of any pericardial effusion. During this current admission, the patient was subjected to diuresis the patient is currently on Lasix 40 mg IV every 8 hours and the patient is also on Zaroxolyn 5 mg p.o. daily and Aldactone 25 mg p.o. daily. I checked the fluid balance and over the past 4 days, the patient has been in the negative fluid balance of at least 8 L. There has been also steady increase in his serum bicarb. The patient is initial bicarb at the time of admission was 28 and currently is up to 42. I obtained a follow-up chest x-ray this morning and it showed overall stable findings consistent with CHF and pulm vessel congestion. There is a small to moderate-sized left-sided pleural effusion along with some adjacent atelectatic change. Hemoglobin is at 8.2 with a white cell count of 6.4 and a platelet count of 127. BUN is 19 with a creatinine of 1.09 and sodium levels at 136 and potassium levels at 3.1. She remains on Levemir insulin 20 units nightly and NovoLog sliding scale coverage. She is also on Toprol 50 mg p.o. twice daily and IV Protonix. She remains on aspirin. On 10/14/2024, the patient is being seen for a follow-up. The patient is doing well. She continues to diurese well. Fluid balance has been -2.5 L over the past 24 hours. Nevertheless, she continues to have significant amount of edema in the abdomen lower extremities involving the thighs. BUN is 18 with a creatinine of 1.22. The patient developed metabolic alkalosis. The serum bicarb was quite elevated and the patient received a total of 2 doses of Diamox and the serum bicarb is down to 37. Meanwhile, the diuretics have been modified and the patient is currently on Lasix 60 mg in the morning and 40 mg in the evening. The patient is also on Zaroxolyn 5 mg p.o. daily and Aldactone 25 mg p.o. daily. The patient is utilizing her BiPAP and once off the BiPAP, she is maintaining herself on oxygen at 5 L/min nasal cannula. No significant shortness of breath. No cough or sputum production. Edema still extensive. On 10/15/2024, the patient is being seen for a follow-up. Doing well. Still has edema lower extremities. Nevertheless, the fluid balance has been -2.5 L over the past 24 hours and if she is producing good urine output. She remains on Lasix 60 mg in the morning and 40 mg in the evenings p.o. and the patient remains on Aldactone 25 mg p.o. daily and Zaroxolyn 5 mg p.o. daily. She is utilizing her BiPAP routinely. No labs are available from today. Nevertheless, the patient is awake and alert and communicating. No other significant events overnight. On 10/16/2024, the patient remains clinically stable. No new complaints. Remains in negative fluid balance. She has developed some metabolic alkalosis with a serum bicarb of 37. BUN is 24 with a creatinine of 1.2. The white cell count is at 7.7 with a hemoglobin of 7.5. Continues to utilize her BiPAP on a regular basis. After BiPAP, she is on 5 L of oxygen nasal cannula. No new complaints. Diuretics include Lasix 60 mg morning and 40 mg the evening and the patient remains on Zaroxolyn and Aldactone. On 10/17/2024, the patient is sitting up in a chair and she is calm and comfortable and she reports improvement in her volume status and edema in lower extremities. She remains negative fluid balance. She continues to be on di uretics, a combination of Lasix, Aldactone and Zaroxolyn. Fluid balance is negative. BUN 25 with a creatinine of 1.1. Sodium levels at 133. No altered mentation. Using BiPAP and once off the BiPAP, the patient is on oxygen at 5 L/min nasal cannula. No cough. No sputum production. No fever or chills. No altered mentation. On 10/18/2024, the patient is being seen for a follow-up. Doing well. No specific complaints. Continues to diurese. Negative fluid balance. Maintain on BiPAP on and off during the day and continuously overnight. While off the BiPAP, the patient is on 5 L with a pulse ox of 99%. Hemoglobin is 8.1. Awaiting EGD and colonoscopy. The BUN is 25 with a creatinine of 1.23 and a serum bicarb is at 39 and sodium levels at 139. Remains on Lasix, Zaroxolyn and Aldactone. Objective - Vital Signs Vital signs: Vital Signs Temp 97.7 F 10/18/24 08:06 Pulse 61 10/18/24 08:07 Resp 19 10/18/24 08:07 BP 100/56 10/18/24 08:06 Pulse Ox 92 L 10/18/24 08:06 FiO2 Intake & Output 10/17/24 10/18/24 10/18/24 18:59 06:59 18:59 Intake Total 380 20 246 Output Total 300 Balance 80 20 246 Weight 122.5 kg Intake: IV 20 20 10 Invasive Line 3 20 20 10 Oral 360 236 Output: Urine 300 Other: Voiding Method Toilet Toilet Toilet External Catheter External Catheter External Catheter # Voids 1 # Bowel Movements 1 - Exam The patient appeared well nourished and normally developed. Vital signs as documented. At the time of my evaluation, the patient was utilizing her home BiPAP from home at a pressure of 18/14 cm of water. While off the BiPAP, the patient is on 5 L. Head exam is unremarkable. No scleral icterus or corneal arcus noted. Neck is without jugular venous distension, thyromegaly, or carotid bruits. Carotid upstrokes are brisk bilaterally. Lungs are clear to auscultation and percussion. Diminished breath sound lung base especially left lung base along with dullness to percussion. Cardiac exam reveals the PMI to be normally sized and situated. Rhythm is re gular. First and second heart sounds normal. No murmurs, rubs or gallops. Patient has a pacemaker in place. Abdominal exam reveals normal bowel sounds, no masses, no organomegaly and no aortic enlargement. Extremities show significant edema in all 4 extremities mainly in the lower extremities extending to her thighs and abdomen and both femoral and pedal pulses are normal. Examination of the skin revealed no evidence of significant rashes, suspicious appearing nevi or other concerning lesions. Neurologically, the patient is awake and alert and the patient does not have any focal neurological deficit. Cranial nerves are essentially intact. - Labs CBC & Chem 7: 10/18/24 07:36 10/18/24 07:36 Labs: Abnormal Lab Results - Last 24 Hours (Table) 10/17/24 10/17/24 10/17/24 Range/Units 11:33 16:09 19:57 RBC (3.80-5.40) m/uL Hgb (11.4-16.0) gm/dL Hct (34.0-46.0) % MCHC (31.0-37.0) g/dL RDW (11.5-15.5) % Plt Count (150-450) k/uL Lymphocytes # (1.0-4.8) k/uL Sodium (137-145) mmol/L Chloride (98-107) mmol/L Carbon Dioxide (22-30) mmol/L BUN (7-17) mg/dL Creatinine (0.52-1.04) mg/dL Glucose (74-99) mg/dL POC Glucose (mg/dL) 269 H 275 H 218 H (70-110) mg/dL Calcium (8.4-10.2) mg/dL 10/18/24 10/18/24 10/18/24 Range/Units 06:05 07:36 07:36 RBC 3.15 L (3.80-5.40) m/uL Hgb 8.1 L (11.4-16.0) gm/dL Hct 26.7 L (34.0-46.0) % MCHC 30.2 L (31.0-37.0) g/dL RDW 18.8 H (11.5-15.5) % Plt Count 146 L (150-450) k/uL Lymphocytes # 0.4 L (1.0-4.8) k/uL Sodium 136 L (137-145) mmol/L Chloride 89 L (98-107) mmol/L Carbon Dioxide 39 H (22-30) mmol/L BUN 25 H (7-17) mg/dL Creatinine 1.23 H (0.52-1.04) mg/dL Glucose 127 H (74-99) mg/dL POC Glucose (mg/dL) 149 H (70-110) mg/dL Calcium 8.2 L (8.4-10.2) mg/dL Assessment and Plan Plan: Acute on chronic dyspnea with signs of decompensated heart failure essentially due to diastolic heart failure and valvular heart disease. The patient had significant volume overload at time of admission and the patient has been diuresed with IV Lasix and she is currently on a combination of p.o. Lasix, Zaroxolyn and Aldactone. The patient maintains a negative fluid balance. Acute on chronic hypoxic respiratory failure, currently on 5 L of oxygen by nasal cannula Obstructive sleep apnea maintained on BiPAP pressure of 18/14 cm of water, utilizing her on device from home Acute on chronic anemia, s/p transfusion with a total of 3 units of packed RBC. Awaiting endoscopy, hemoglobin is at 8.1. History of valvular heart disease and the patient is status post aortic valve replacement, mitral valve replacement and tricuspid valve repair in May 2024 performed at [facility] Dual-chamber pacemaker insertion, November 2017 Paroxysmal A-fib maintained on anticoagulation with Eliquis Coronary artery disease with previous coronary stenting of the LAD and ostial PDA Diabetes mellitus type 2 Hyperlipidemia Hypertension Severe pulmonary hypertension, group 2 Metabolic alkalosis developed during this current hospital stay due to aggressive diuresis and the patient has been increased 8 to 9 L negative fluid balance with ongoing edema. The patient was given 2 doses of Diamox and the metabolic alkalosis improved. Plan Continue diuretics per cardiology, the patient remains on a combination of Lasix, Zaroxolyn and Aldactone. Monitor electrolytes including the serum bicarb level, as the patient has a component of metabolic alkalosis with a serum bicarb of 39 Monitor the hemoglobin and keep anticoagulation on hold and the hemoglobin remains stable Continue BiPAP at a pressure of 18/14 cm of water and the patient is using her own device Continue metoprolol Currently on 5 L of oxygen by nasal cannula with failure to to maintain saturation above 90% Awaiting GI workup regarding possibility of GI bleed. She is being considered for EGD and colonoscopy Will continue to follow
[2024-10-18 16:24] LABS: Glucose,Whole Blood 317 mg/dL (70-110)
--- NOTE | 2024-10-18 17:16 | P.GSHP ---
History of Present Illness H&P Date: 10/18/24 CHIEF COMPLAINT: Acute anemia HISTORY OF PRESENT ILLNESS: The patient is a 79-year-old female with recent triple valve replacement at [facility] in May 2024 who presented to the hospital with severe fatigue. She was sent acute heart failure due to severe anemia. Patient does report that her stools have been dark since her procedure as she has been on blood thinners. History is obtained by her daughter at bedside as well. Patient initially was to undergo a upper and lower endoscopy h owever due to the severity on instability of her heart condition, nothing was done. She is still off blood thinners. Patient was about to be discharged until family requested endoscopies due to her acute anemia. Patient is currently tolerating normal diet. No reports abdominal pain. She still reports dark stools. Last colonoscopy was over 15 years ago. PAST MEDICAL HISTORY: See list and reviewed PAST SURGICAL HISTORY: See list and reviewed MEDICATIONS: See list and reviewed ALLERGIES: See list and reviewed SOCIAL HISTORY: See list and reviewed FAMILY HISTORY: See list and reviewed REVIEW OF ORGAN SYSTEMS: CONSTITUTIONAL: No fevers or chills. Morbid obesity, BMI 47.8 EYES: Denies any trouble with vision. No glasses. HEENT: No difficulties with hearing. No nosebleeds. No difficulty swallowing. RESPIRATORY: Difficulty breathing with dyspnea on admission. Dyspnea now resolved. CARDIOVASCULAR: Congestive heart failure status post triple valve replacement at [facility]. Hyperlipidemia. GASTROINTESTINAL: Reports dark stools. Last colonoscopy 15 years ago. GENITOURINARY: Denies any blood in urine or increased urinary frequency. NEUROLOGICAL: Denies any numbness or tingling along the distal extremities. No seizure disorders or headaches. MUSCULOSKELETAL: Denies any back pain, stiffness or joint arthritis. SKIN: No current skin cancer. No rash. PSYCHIATRIC: Denies current depression or suicidal thoughts. ENDOCRINE: Denies current thyroid disorders. Has diabetes type 2, insulin- dependent. HEME/LYMPHATIC: Denies any lumps and bumps around the neck. No recent deep venous thrombosis. ALLERGY/IMMUNOLOGY: No immunoglobulin therapy. No immune deficiencies. BREAST: Denies current breast lumps, pain or nipple discharge. PHYSICAL EXAM: VITALS: Reviewed CONSTITUTIONAL: Well developed and in no acute distress. EYES: Conjuctivae without sclera icterus. Extraocular movements grossly intact. HEAD, EARS, NOSE, THROAT: Moist buccal mucosa. Head is atraumatic, normocephalic. Hears conversational speech. No nasal drainage. NECK: Supple. No JV distention. No thyroidomegaly. RESPIRATORY: Non-labored respirations and equal bilateral excursions. No gross wheezes. CARDIOVASCULAR: Palpable 2+ radial pulses. ABDOMEN: Obese nontender. LYMPH: No neck lymphadenopathy. MUSCULOSKELETAL: No clubbing cyanosis or edema SKIN: Warm and well perfused with good skin turgor. NEUROLOGIC: Cranial nerves II through XII grossly intact. No focal or lateralizing signs. PSYCH: Appropriate affect. Alert and oriented to person, place and time. Displays appropriate insight. CLINCAL LABS: Reviewed. Acute anemia hemoglobin 5.5 now up to 8.1. Creatinine at 1.23. WBC normal. ECHO: Demonstrates ejection fraction over 60%. IMAGING: Chest x-ray 10/13/2024 demonstrates left pleural effusion. This is my independent interpretation. EKG: EKG reviewed demonstrates atrial pacemaker. Anterior myocardial infarction noted. ASSESSMENT: 1. Acute blood loss anemia, hemoglobin 5.5 now 8.1 2. Morbid obesity excess calories, BMI 47.8 3. Congestive heart failure, diastolic dysfunction 4. Diabetes type 2, insulin-dependent 5. GI bleed PLAN: 1. Patient reports longstanding dark stools and being on blood thinners with high risk of GI bleed from a upper source. Will proceed with upper endoscopy. 2. As patient is tolerating a normal diet, bowel cleanse will be needed. Defer colonoscopy pending upper endoscopy described and discussed with the patient and daughter at bedside. 3. Shared decision making performed whereby cautious interventions to be performed due to patient's recent acute anemia, diastolic heart failure. 4. Patient is elevated risk. ADVANCE DIRECTIVE: CODE STATUS in chart. 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 HAD THYROID AND PARATHYROID REMOVAL. TOTAL LEFT KNEE REPLACEMENT, CATARACT RT EYE, CATARACT LEFT EYE SURGERY ,COLONOSCOPY, TVAR- 11/2018 , Aortic valve replacement 10/2018 Past Anesthesia/Blood Transfusion Reactions: No Reported Reaction Type of Cardiac Device: Permanent Pacemaker Device Placement Date:: PACEMAKER NOV 2017. Past Psychological History: No Psychological Hx Reported Smoking Status: Never smoker Past Alcohol Use History: None Reported Past Drug Use History: None Reported - Past Family History Daughter(s) Family Medical History: Deep Vein Thrombosis (DVT) Sister(s) Family Medical History: Cancer Additional Family Medical History / Comment(s): BREAST CANCER Medications and Allergies Home Medications Medication Instructions Recorded Confirmed Type Levothyroxine Sodium [Levoxyl] 175 mcg PO DAILY 10/25/20 10/08/24 History Isosorbide Mononitrate ER [Imdur] 30 mg PO DAILY 01/03/22 10/08/24 History Apixaban [Eliquis] 5 mg PO BID 10/08/24 10/08/24 History FLUoxetine HCL [PROzac] 10 mg PO DAILY 10/08/24 10/08/24 History Furosemide [Lasix] 20 mg PO BID 10/08/24 10/08/24 History Insulin Aspart [NovoLOG Flexpen] 40 units SQ AC-TID 10/08/24 10/08/24 History Insulin Glargine,Hum.rec.anlog 20 - 30 units SQ HS 10/08/24 10/08/24 History [Lantus Solostar Pen] Metoprolol Succinate (ER) [Toprol 50 mg PO DAILY 10/08/24 10/08/24 History Xl] Rosuvastatin Calcium [Crestor] 40 mg PO HS 10/08/24 10/08/24 History Allergies Allergy/AdvReac Type Severity Reaction Status Date / Time nitrofurantoin Allergy Rash/Hives Verified 10/08/24 19:32 macrocrystalline [From Macrodantin] phenazopyridine HCl Allergy Rash/Hives Verified 10/08/24 19:32 [From Pyridium] Surgical - Exam Vital Signs Temp Pulse Resp BP Pulse Ox 97.9 F 65 16 139/101 100 10/08/24 16:14 10/08/24 16:14 10/08/24 16:14 10/08/24 16:14 10/08/24 16:14 Results - Labs 10/18/24 07:36 10/18/24 07:36 Abnormal Lab Results - Last 24 Hours (Table) 10/17/24 10/18/24 10/18/24 Range/Units 19:57 06:05 07:36 RBC 3.15 L (3.80-5.40) m/uL Hgb 8.1 L (11.4-16.0) gm/dL Hct 26.7 L (34.0-46.0) % MCHC 30.2 L (31.0-37.0) g/dL RDW 18.8 H (11.5-15.5) % Plt Count 146 L (150-450) k/uL Lymphocytes # 0.4 L (1.0-4.8) k/uL Sodium (137-145) mmol/L Chloride (98-107) mmol/L Carbon Dioxide (22-30) mmol/L BUN (7-17) mg/dL Creatinine (0.52-1.04) mg/dL Glucose (74-99) mg/dL POC Glucose (mg/dL) 218 H 149 H (70-110) mg/dL Calcium (8.4-10.2) mg/dL 10/18/24 10/18/24 10/18/24 Range/Units 07:36 11:26 16:22 RBC (3.80-5.40) m/uL Hgb (11.4-16.0) gm/dL Hct (34.0-46.0) % MCHC (31.0-37.0) g/dL RDW (11.5-15.5) % Plt Count (150-450) k/uL Lymphocytes # (1.0-4.8) k/uL Sodium 136 L (137-145) mmol/L Chloride 89 L (98-107) mmol/L Carbon Dioxide 39 H (22-30) mmol/L BUN 25 H (7-17) mg/dL Creatinine 1.23 H (0.52-1.04) mg/dL Glucose 127 H (74-99) mg/dL POC Glucose (mg/dL) 243 H 317 H (70-110) mg/dL Calcium 8.2 L (8.4-10.2) mg/dL Diabetes panel 10/18/24 Range/Units 07:36 Sodium 136 L (137-145) mmol/L Potassium 3.8 (3.5-5.1) mmol/L Chloride 89 L (98-107) mmol/L Carbon Dioxide 39 H (22-30) mmol/L BUN 25 H (7-17) mg/dL Creatinine 1.23 H (0.52-1.04) mg/dL Glucose 127 H (74-99) mg/dL Calcium 8.2 L (8.4-10.2) mg/dL Calcium panel 10/18/24 Range/Units 07:36 Calcium 8.2 L (8.4-10.2) mg/dL Pituitary panel 10/18/24 Range/Units 07:36 Sodium 136 L (137-145) mmol/L Potassium 3.8 (3.5-5.1) mmol/L Chloride 89 L (98-107) mmol/L Carbon Dioxide 39 H (22-30) mmol/L BUN 25 H (7-17) mg/dL Creatinine 1.23 H (0.52-1.04) mg/dL Glucose 127 H (74-99) mg/dL Calcium 8.2 L (8.4-10.2) mg/dL Adrenal panel 10/18/24 Range/Units 07:36 Sodium 136 L (137-145) mmol/L Potassium 3.8 (3.5-5.1) mmol/L Chloride 89 L (98-107) mmol/L Carbon Dioxide 39 H (22-30) mmol/L BUN 25 H (7-17) mg/dL Creatinine 1.23 H (0.52-1.04) mg/dL Glucose 127 H (74-99) mg/dL Calcium 8.2 L (8.4-10.2) mg/dL
[2024-10-18 19:58] LABS: Glucose,Whole Blood 322 mg/dL (70-110)
--- NOTE | 2024-10-19 04:34 | P.PN ---
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 She complains that ever since her heart surgery at [facility] she has felt short of breath and did not get any real improvement from the procedure. She denies having any chest pain or chest pressure. She complains her shortness of breath recently worsened and she had to turn her oxygen up. She denies abdominal pain although endorses lack of radha etite. Patient states her stools are very dark but not black. Blood pressure 116/60, heart rate 100, pulse ox 99% on CPAP. Hgb down to 5.1 this [facility] 10/10 Patient presents reports of dyspnea. Patient states her breathing is better today No chest pain Currently she is getting blood transfusion Patient had severe anemia on admission with hemoglobin 5.5 and 6.3, after blood transfusion 6.9 GI team saw her yesterday but patient was not cleared by [facility] to undergo EGD which is held now Patient remains on IV Protonix Eliquis is on hold for her A-fib and other cardiac diseases Also she was placed on IV Lasix 40 mg twice daily given her acute CHF. And also on review of her blood transfusion Cardiology team added aspirin 81 mg while she is off Eliquis Ejection fraction is 60-65 percent, severe pulmonary hypertension with RVSP is 56 Hemoglobin A1c is elevated at 7.5% 10/11 Patient sitting at the edge of the bed She is still complaining from some dyspnea but improving. Still complaining from 2-3+ bilateral pitting leg edema. Also patient drinking a lot of water, she was counseled extensively about fluid restriction and she agrees She is kept on IV Lasix 40 mg twice daily. Fluid restriction is added Currently her Eliquis is on hold and she was started on aspirin 81 mg Patient evaluated by GI team however she was not cleared to undergo EGD/colonoscopy by [facility]. Patient status 3 units of blood transfusion and hemoglobin improved to 8.9 Hemoglobin A1c 7.5 Ejection fraction 60 to 65% with severe pulmonary hypertension with RVSP at 56 10/12 Patient breathing is better No blood in stool and she has a brown bowel movement She is diuresing very well while she kept on 100 mg of oral Lasix daily at 40 mg in the morning and 60 mg in the evening plus metolazone 5 mg. Eliquis remains on hold, GI team consult EGD because patient was not cleared by [facility] earlier in the week. Will keep monitoring hemoglobin while off Eliquis for her paroxysmal A-fib. She is currently on aspirin added instead of holding Eliquis She is on oral Lasix and IV Protonix 10/16 Patient keep doing well She is on 5 L oxygen via nasal cannula No other new complaint Hemoglobin improved to 7.9 today Creatinine stable 1.2. Low potassium replaced at 3.4 She remains on p.o. Lasix 40 mg in the evening and 40 mg in the a.m. twice daily 10/17 currently patient is euvolemic And kept on oral Lasix 40 mg daily and metolazone 5 mg daily. Creatinine stable at 1.1. Patient is stable now per [facility]. Pending the GI team for further workup. Possible EGD and colonoscopy. Eliquis is on hold. 10/18 Patient awake sitting up in bed looks comfortable and relaxed, no new complaints She is getting more euvolemic now No GI coverage this coming week therefore we are going to consult surgery for her anemia. Initially plans for EGD was held as patient was not cardiologically stable. Consult surgery team for further evaluation Objective - Vital Signs Vital signs: Vital Signs Temp 98.3 F 10/18/24 12:00 Pulse 62 10/18/24 12:00 Resp 19 10/18/24 12:00 BP 114/60 10/18/24 12:00 Pulse Ox 99 10/18/24 12:00 FiO2 Intake & Output 10/17/24 10/18/24 10/18/24 18:59 06:59 18:59 Intake Total 380 20 246 Output Total 300 200 Balance 80 20 46 Weight 122.5 kg Intake: IV 20 20 10 Invasive Line 3 20 20 10 Oral 360 236 Output: Urine 300 200 Other: Voiding Method Toilet Toilet Toilet External Catheter External Catheter External Catheter # Voids 1 1 # Bowel Movements 1 - Exam -GENERAL: The patient is alert and oriented x3, not in any acute distress. Well developed, well nourished. Patient looks somewhat pale and tired HEENT: Pupils are round and equally reacting to light. EOMI. No scleral icterus. No conjunctival pallor. Normocephalic, atraumatic. No pharyngeal erythema. No thyromegaly. CARDIOVASCULAR: S1 and S2 present. No murmurs, rubs, or gallops. -PULMONARY: Chest is clear to auscultation, no wheezing , bilateral basal crackles. ABDOMEN: Soft, nontender, nondistended, normoactive bowel sounds. No palpable organomegaly. MUSCULOSKELETAL: No joint swelling or deformity. -EXTREMITIES: No cyanosis, clubbing,. Bilateral pitting leg edema. NEUROLOGICAL: Gross neurological examination did not reveal any focal deficits. SKIN: No rashes. no petechiae. - Labs CBC & Chem 7: 10/18/24 07:36 10/18/24 07:36 Labs: Abnormal Lab Results - Last 24 Hours (Table) 10/17/24 10/17/24 10/18/24 Range/Units 16:09 19:57 06:05 RBC (3.80-5.40) m/uL Hgb (11.4-16.0) gm/dL Hct (34.0-46.0) % MCHC (31.0-37.0) g/dL RDW (11.5-15.5) % Plt Count (150-450) k/uL Lymphocytes # (1.0-4.8) k/uL Sodium (137-145) mmol/L Chloride (98-107) mmol/L Carbon Dioxide (22-30) mmol/L BUN (7-17) mg/dL Creatinine (0.52-1.04) mg/dL Glucose (74-99) mg/dL POC Glucose (mg/dL) 275 H 218 H 149 H (70-110) mg/dL Calcium (8.4-10.2) mg/dL 10/18/24 10/18/24 10/18/24 Range/Units 07:36 07:36 11:26 RBC 3.15 L (3.80-5.40) m/uL Hgb 8.1 L (11.4-16.0) gm/dL Hct 26.7 L (34.0-46.0) % MCHC 30.2 L (31.0-37.0) g/dL RDW 18.8 H (11.5-15.5) % Plt Count 146 L (150-450) k/uL Lymphocytes # 0.4 L (1.0-4.8) k/uL Sodium 136 L (137-145) mmol/L Chloride 89 L (98-107) mmol/L Carbon Dioxide 39 H (22-30) mmol/L BUN 25 H (7-17) mg/dL Creatinine 1.23 H (0.52-1.04) mg/dL Glucose 127 H (74-99) mg/dL POC Glucose (mg/dL) 243 H (70-110) mg/dL Calcium 8.2 L (8.4-10.2) mg/dL Assessment and Plan Assessment: Acute blood loss severe anemia, present on admission. Acute on chronic diastolic CHF with ejection fraction 60 to 65% History of aortic valve replacement, mitral valve replacement and tricuspid valve repair on 05/2024 Diabetes mellitus Coronary artery disease Paroxysmal atrial fibrillation status post dual-chamber pacemaker Hypertension Hyperlipidemia Plan: Monitor hemoglobin. Eliquis is on hold and patient was started on aspirin by [facility] GI team evaluated the patient, recommended EGD however patient was not cleared by [facility] yet. No GI service in this frail state during the weekend. Currently [facility] found her stable and GI team might consider further workup now Consult surgery team Continue with IV Protonix Continue with oral Lasix plus metolazone fluid restriction Resume cardiac medication Labs and medication were reviewed.. Continue same treatment. Continue with symptomatic treatment. Resume home medication. Monitor labs and vitals. DVT and GI prophylaxis. Further recommendations as per clinical course of the patient DVT prophylaxis: hold anticoagulation in view of severe anemia GI Prophylaxis: Protonix Prognosis is guarded
[2024-10-19 06:22] LABS: Glucose,Whole Blood 164 mg/dL (70-110)
[2024-10-19 07:17] LABS: Anisocytosis Slight; Basophils % (A) 1 %; Eosinophils # (A) 0.2 k/uL (0-0.7); Eosinophils % (A) 3 %; HCT 24.6 % (34.0-46.0); HGB 7.5 gm/dL (11.4-16.0); Hypochromasia Marked; Lymphocytes # (A) 0.5 k/uL (1.0-4.8); Lymphocytes % (A) 8 %; MCH 25.4 pg (25.0-35.0); MCHC 30.3 g/dL (31.0-37.0); MCV 83.9 fL (80.0-100.0); Mean Platelet Volume 8.7; Monocytes # (A) 0.3 k/uL (0-1.0); Monocytes % (A) 5 %; Neutrophils % (A) 82 %; Platelet Count 156 k/uL (150-450); Poikilocytosis Slight; RBC 2.94 m/uL (3.80-5.40); RDW 18.6 % (11.5-15.5); WBC 6.1 k/uL (3.8-10.6)
[2024-10-19 07:34] LABS: African American GFR (CKD) 53 (>60 ml/min/1.73 sqM); Anion Gap 1 mmol/L; Blood Urea Nitrogen 25 mg/dL (7-17); Calcium 7.7 mg/dL (8.4-10.2); Carbon Dioxide 40 mmol/L (22-30); Chloride 93 mmol/L (98-107); Glucose 143 mg/dL (74-99); Non-African American GFR(CKD) 46 (>60 ml/min/1.73 sqM); Potassium 3.7 mmol/L (3.5-5.1); Sodium 134 mmol/L (137-145)
[2024-10-19] MEDS ORDERED: PROPOFOL 10 MG/ML 20 ML VIAL IV ONE (10:15)
[2024-10-19] MEDS ORDERED: GLYCOPYRROLATE 0.2 MG/ML 2 ML VIAL ONE (10:15)
[2024-10-19] MEDS ORDERED: KETAMINE HCL IN 0.9 % NACL 50 MG/5 ML SYRINGE ONE (10:15)
[2024-10-19] MEDS ORDERED: LIDOCAINE 1% INJ 10MG/ML (20 ML MDV) ONE (10:15)
[2024-10-19] MEDS: LACTATED RINGERS 1,000 ML IV ONE (10:21)
--- NOTE | 2024-10-19 10:24 | P.GSCN ---
History of Present Illness Consult date: 10/18/24 History of present illness: CHIEF COMPLAINT: Acute anemia HISTORY OF PRESENT ILLNESS: The patient is a 79-year-old female with recent triple valve replacement at [facility] in May 2024 who presented to the hospital with severe fatigue. She was sent acute heart failure due to severe anemia. Patient does report that her stools have been dark since her procedure as she has been on blood thinners. History is obtained by her daughter at bedside as well. Patient initially was to undergo a upper and lower endoscopy however due to the severity on instability of her heart condition, nothing was done. She is still off blood thinners. Patient was about to be discharged until family requested endoscopies due to her acute anemia. Patient is currently tolerating normal diet. No reports abdominal pain. She still reports dark stools. Last colonoscopy was over 15 years ago. PAST MEDICAL HISTORY: See list and reviewed PAST SURGICAL HISTORY: See list and reviewed MEDICATIONS: See list and reviewed ALLERGIES: See list and reviewed SOCIAL HISTORY: See list and reviewed FAMILY HISTORY: See list and reviewed REVIEW OF ORGAN SYSTEMS: CONSTITUTIONAL: No fevers or chills. Morbid obesity, BMI 47.8 EYES: Denies any trouble with vision. No glasses. HEENT: No difficulties with hearing. No nosebleeds. No difficulty swallowing. RESPIRATORY: Difficulty breathing with dyspnea on admission. Dyspnea now resolved. CARDIOVASCULAR: Congestive heart failure status post triple valve replacement at [facility]. Hyperlipidemia. GASTROINTESTINAL: Reports dark stools. Last colonoscopy 15 years ago. GENITOURINARY: Denies any blood in urine or increased urinary frequency. NEUROLOGICAL: Denies any numbness or tingling along the distal extremities. No seizure disorders or headaches. MUSCULOSKELETAL: Denies any back pain, stiffness or joint arthritis. SKIN: No current skin cancer. No rash. PSYCHIATRIC: Denies current depression or suicidal thoughts. ENDOCRINE: Denies current thyroid disorders. Has diabetes type 2, insulin- dependent. HEME/LYMPHATIC: Denies any lumps and bumps around the neck. No recent deep venous thrombosis. ALLERGY/IMMUNOLOGY: No immunoglobulin therapy. No immune deficiencies. BREAST: Denies current breast lumps, pain or nipple discharge. PHYSICAL EXAM: VITALS: Reviewed CONSTITUTIONAL: Well developed and in no acute distress. EYES: Conjuctivae without sclera icterus. Extraocular movements grossly intact. HEAD, EARS, NOSE, THROAT: Moist buccal mucosa. Head is atraumatic, normocephalic. Hears conversational speech. No nasal drainage. NECK: Supple. No JV distention. No thyroidomegaly. RESPIRATORY: Non-labored respirations and equal bilateral excursions. No gross wheezes. CARDIOVASCULAR: Palpable 2+ radial pulses. ABDOMEN: Obese nontender. LYMPH: No neck lymphadenopathy. MUSCULOSKELETAL: No clubbing cyanosis or edema SKIN: Warm and well perfused with good skin turgor. NEUROLOGIC: Cranial nerves II through XII grossly intact. No focal or lateralizing signs. PSYCH: Appropriate affect. Alert and oriented to person, place and time. Displays appropriate insight. CLINCAL LABS: Reviewed. Acute anemia hemoglobin 5.5 now up to 8.1. Creatinine at 1.23. WBC normal. ECHO: Demonstrates ejection fraction over 60%. IMAGING: Chest x-ray 10/13/2024 demonstrates left pleural effusion. This is my independent interpretation. EKG: EKG reviewed demonstrates atrial pacemaker. Anterior myocardial infarction noted. ASSESSMENT: 1. Acute blood loss anemia, hemoglobin 5.5 now 8.1 2. Morbid obesity excess calories, BMI 47.8 3. Congestive heart failure, diastolic dysfunction 4. Diabetes type 2, insulin-dependent 5. GI bleed PLAN: 1. Patient reports longstanding dark stools and being on blood thinners with high risk of GI bleed from a upper source. Will proceed with upper endoscopy. 2. As patient is tolerating a normal diet, bowel cleanse will be needed. Defer colonoscopy pending upper endoscopy described and discussed with the patient and daughter at bedside. 3. Shared decision making performed whereby cautious interventions to be performed due to patient's recent acute anemia, diastolic heart failure. 4. Patient is elevated risk. ADVANCE DIRECTIVE: CODE STATUS in chart. 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 HAD THYROID AND PARATHYROID REMOVAL. TOTAL LEFT KNEE REPLACEMENT, CATARACT RT EYE, CATARACT LEFT EYE SURGERY ,COLONOSCOPY, TVAR- 11/2018 , Aortic valve replacement 10/2018 Past Anesthesia/Blood Transfusion Reactions: No Reported Reaction Type of Cardiac Device: Permanent Pacemaker Device Placement Date:: PACEMAKER NOV 2017. Past Psychological History: No Psychological Hx Reported Smoking Status: Never smoker Past Alcohol Use History: None Reported Past Drug Use History: None Reported - Past Family History Daughter(s) Family Medical History: Deep Vein Thrombosis (DVT) Sister(s) Family Medical History: Cancer Additional Family Medical History / Comment(s): BREAST CANCER Medications and Allergies Home Medications Medication Instructions Recorded Confirmed Type Levothyroxine Sodium [Levoxyl] 175 mcg PO DAILY 10/25/20 10/08/24 History Isosorbide Mononitrate ER [Imdur] 30 mg PO DAILY 01/03/22 10/08/24 History Apixaban [Eliquis] 5 mg PO BID 10/08/24 10/08/24 History FLUoxetine HCL [PROzac] 10 mg PO DAILY 10/08/24 10/08/24 History Furosemide [Lasix] 20 mg PO BID 10/08/24 10/08/24 History Insulin Aspart [NovoLOG Flexpen] 40 units SQ AC-TID 10/08/24 10/08/24 History Insulin Glargine,Hum.rec.anlog 20 - 30 units SQ HS 10/08/24 10/08/24 History [Lantus Solostar Pen] Metoprolol Succinate (ER) [Toprol 50 mg PO DAILY 10/08/24 10/08/24 History Xl] Rosuvastatin Calcium [Crestor] 40 mg PO HS 10/08/24 10/08/24 History Allergies Allergy/AdvReac Type Severity Reaction Status Date / Time nitrofurantoin Allergy Rash/Hives Verified 10/08/24 19:32 macrocrystalline [From Macrodantin] phenazopyridine HCl Allergy Rash/Hives Verified 10/08/24 19:32 [From Pyridium] Surgical - Exam Vital Signs Temp Pulse Resp BP Pulse Ox 97.9 F 65 16 139/101 100 10/08/24 16:14 10/08/24 16:14 10/08/24 16:14 10/08/24 16:14 10/08/24 16:14 Results - Labs 10/19/24 06:41 10/19/24 06:41 Abnormal Lab Results - Last 24 Hours (Table) 10/18/24 10/18/24 10/18/24 Range/Units 11:26 16:22 19:57 RBC (3.80-5.40) m/uL Hgb (11.4-16.0) gm/dL Hct (34.0-46.0) % MCHC (31.0-37.0) g/dL RDW (11.5-15.5) % Lymphocytes # (1.0-4.8) k/uL Sodium (137-145) mmol/L Chloride (98-107) mmol/L Carbon Dioxide (22-30) mmol/L BUN (7-17) mg/dL Creatinine (0.52-1.04) mg/dL Glucose (74-99) mg/dL POC Glucose (mg/dL) 243 H 317 H 322 H (70-110) mg/dL Calcium (8.4-10.2) mg/dL 10/19/24 10/19/24 10/19/24 Range/Units 06:20 06:41 06:41 RBC 2.94 L (3.80-5.40) m/uL Hgb 7.5 L (11.4-16.0) gm/dL Hct 24.6 L (34.0-46.0) % MCHC 30.3 L (31.0-37.0) g/dL RDW 18.6 H (11.5-15.5) % Lymphocytes # 0.5 L (1.0-4.8) k/uL Sodium 134 L (137-145) mmol/L Chloride 93 L (98-107) mmol/L Carbon Dioxide 40 H (22-30) mmol/L BUN 25 H (7-17) mg/dL Creatinine 1.15 H (0.52-1.04) mg/dL Glucose 143 H (74-99) mg/dL POC Glucose (mg/dL) 164 H (70-110) mg/dL Calcium 7.7 L (8.4-10.2) mg/dL Diabetes panel 10/19/24 Range/Units 06:41 Sodium 134 L (137-145) mmol/L Potassium 3.7 (3.5-5.1) mmol/L Chloride 93 L (98-107) mmol/L Carbon Dioxide 40 H (22-30) mmol/L BUN 25 H (7-17) mg/dL Creatinine 1.15 H (0.52-1.04) mg/dL Glucose 143 H (74-99) mg/dL Calcium 7.7 L (8.4-10.2) mg/dL Calcium panel 10/19/24 Range/Units 06:41 Calcium 7.7 L (8.4-10.2) mg/dL Pituitary panel 10/19/24 Range/Units 06:41 Sodium 134 L (137-145) mmol/L Potassium 3.7 (3.5-5.1) mmol/L Chloride 93 L (98-107) mmol/L Carbon Dioxide 40 H (22-30) mmol/L BUN 25 H (7-17) mg/dL Creatinine 1.15 H (0.52-1.04) mg/dL Glucose 143 H (74-99) mg/dL Calcium 7.7 L (8.4-10.2) mg/dL Adrenal panel 10/19/24 Range/Units 06:41 Sodium 134 L (137-145) mmol/L Potassium 3.7 (3.5-5.1) mmol/L Chloride 93 L (98-107) mmol/L Carbon Dioxide 40 H (22-30) mmol/L BUN 25 H (7-17) mg/dL Creatinine 1.15 H (0.52-1.04) mg/dL Glucose 143 H (74-99) mg/dL Calcium 7.7 L (8.4-10.2) mg/dL
--- NOTE | 2024-10-19 10:25 | P.HPADDEND ---
H&P Addendum H&P Addendum Date: 10/19/24 Patient agrees to be full code during her upper and lower endoscopy. Will be no code after her procedure.
--- NOTE | 2024-10-19 10:33 | P.PCN ---
Date of Procedure: 10/19/24 Description of Procedure: PREOPERATIVE DIAGNOSIS: Gastrointestinal bleeding with melena Morbid obesity excess calories, BMI 48.1 Status post blood transfusions POSTOPERATIVE DIAGNOSIS: Gastroesophageal reflux disease with erosive esophagitis Morbid obesity. Gastritis without active bleeding Duodenitis without active bleeding Duodenal polyp OPERATION: Esophagogastroduodenoscopy with biopsies along esophagus, antrum and duodenum SURGEON: Lorrie Hurtado MD ANESTHESIA: MAC. INDICATIONS: The patient is a 79-year-old female who presents with melena and gastrointestinal bleeding. Benefits and risks of the procedure were described. Informed consent was obtained. DESCRIPTION: The patient was brought into the endoscopy suite and laid in the left lateral decubitus position. An Olympus gastroscope was passed along the posterior oropharynx down to the distal esophagus where the squamocolumnar junction was encountered at 38 cm from the incisors. Blood was found in the posterior oropharynx. The stomach was entered and no bile reflux was found. Additional findings are listed below. Biopsies with cold forceps were obtained of the antrum. The first through third portion of the duodenum was examined. Retroflexion of the scope confirmed Hill grade 2 lower esophageal valve. The squamocolumnar junction demonstrated LA grade B erosive esophagitis. The stomach was desufflated. The patient tolerated the procedure well. FINDINGS: Squamocolumnar junction 38 cm from the incisors. Diaphragmatic hiatus at 38 cm. Hill grade 2 lower esophageal valve. LA grade B erosive esophagitis. Biopsies obtained Biopsies obtained of the duodenum. Duodenitis and duodenal polyps first portion. Chronic gastritis with biopsies obtained. Blood found on the posterior oropharynx RECOMMENDATIONS: Recommend colonoscopy for GI bleed workup.
[2024-10-19 11:21] LABS: Glucose,Whole Blood 175 mg/dL (70-110)
--- NOTE | 2024-10-19 11:47 | P.PN ---
Subjective Progress Note Date: 10/19/24 HISTORY OF PRESENT ILLNESS: This is a 79-year-old female patient of Dr. 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 We have been asked to evaluate the patient for CHF. Patient presented to the emergency center due to severe weakness and shortness of breath. Patient underwent aortic valve replacement, mitral valve replacement and tricuspid valve repair at [facility] in May of this year. She has had follow-up with Dr. Watson with complaints of continued limited physical activity, dyspnea and peripheral edema and fatigue. She has not felt any real improvement of her symptoms since she had her surgery and is disappointed about that. She denies having any chest pain or chest pressure. Her shortness of breath seems to be worsening and she has had significantly worse edema extending into her abdomen. She apparently has also been started on home oxygen which she is increased to 7 L. Regarding anemia, patient did receive 3 to 4 units after her surgery in May and she has h ad follow-up lab work done in July with her PCP and she was not contacted about any abnormality at that time. Also, patient is not eating or drinking very much. She states she has no appetite and has lost her sense of taste since the surgery. She denies any abdominal pain. Daughter states that she has had a distended abdomen for few weeks that waxes and wanes. Patient states her stools are very dark but not black. She has not been on iron at home. She has been taking baby aspirin and Eliquis although aspirin is not listed on her home medication list. She denies any vaginal bleeding. Blood pressure 116/60, heart rate 100, pulse ox 99% on CPAP. Patient is seen today in the emergency center waiting for a bed on the cardiac stepdown unit. Eliquis has been placed on hold. Patient has been seen by GI with plan for EGD tomorrow if cleared by cardiology. -EKG: Atrial paced rhythm -Chest x-ray: Cardiomegaly, pulmonary vascular congestion and bilateral pleural effusions. -Laboratory studies: Hemoglobin initially 6.2 now 5.5. Sodium 134, BUN 32 and creatinine 0.91. Hemoglobin A1c 7.5. Troponin 0.065, 0.052, 0.048. proBNP 2830. -Home cardiac medications: Eliquis 5 mg twice daily, Lasix 20 mg twice daily, Imdur 30 mg daily, Toprol-XL 50 mg daily, Crestor 40 mg at bedtime, also on levothyroxine 175 mcg daily. -Echocardiogram performed 05/24/2024 revealed normal EF, prosthetic AV, prosthetic MV, TV repair. -Cardiovascular surgery 05/20/2024: Tissue AVR, tissue MVR, TV repair -Previous CV surgery 11/06/2018: TAVR. -Cardiac catheterization 2020 with stent placed in the mid D1, stent in the ostial PDA. 10/12/2024 Patient examined this morning at the bedside. Patient currently denies chest pain or pressure. She denies shortness of breath. She continues to have significant lower extremity edema. Patient is feeling ember at the bedside also reports she has a lot of swelling around her abdomen which is not normal for her. Echocardiogram completed revealing ejection fraction 60 to 65%, status post mitral valve replacement, mild mitral stenosis, mean gradient 6 mmHg, aortic valve replacement with no perivalvular aortic regurgitation, moderate to severe pulmonary hypertension. Hemoglobin today 8.1. Telemetry reveals paced rhythm at 60. 10/13/2024 Patient examined this morning at the bedside. Patient is currently sitting up in the chair. Patient currently denies chest pain or pressure. She denies shortness of breath. She remains on IV diuretics. She continues to have lower extremity edema. CO2 42 today. She has been started on Diamox per pulmonary medicine. blood pressure 118/63. BUN 19. Creatinine 1.04. Hemoglobin today 8.2. Eliquis remains on hold. Telemetry reveals paced rhythm. 10/14/2024 Patient examined this morning the bedside. Patient denies having any chest pain or pressure. She denies shortness of breath. Remains on IV Lasix. Patient CO2 improved today. She was given Diamox x 2 doses yesterday per pulmonary medicine. She continues to have lower extremity edema although improving. Telemetry reveals paced rhythm. 10/15/2024 Patient examined this morning at the bedside. Patient on CPAP at the time of examination. She denies chest pain or pressure. She denies shortness of breath. She has been transitioned to oral Lasix. 10/16/2024 Patient examined this morning at the bedside. Patient currently denies chest pain or pressure. She denies shortness of breath. She remains on oral diuretics. Creatinine today 1.23. Patient's lower extremity edema is slowly improving. Hemoglobin stable at 7.9. Her Eliquis remains on hold. 10/17/2024 Patient examined this morning. She is sitting up in the chair. Patient currently denies chest pain or pressure. She denies shortness of breath. She remains on oral diuretics. Creatinine today 1.19. It was noted that the patient was eating Pringles yesterday plan evaluation. Patient was once again educated on low-sodium diet. She verbalized understanding. 10/18/2024 Patient examined this morning at the bedside. Patient currently denies chest pain or pressure. She denies shortness of breath. She remains on oral diuretics. Creatinine stable at 1.23. Hemoglobin stable at 8.1. Her Eliquis remains on hold. 10/19/24 Patient seen and examined. Patient is scheduled for EGD today with general surgery. Eliquis remains on hold and family member asking about this. Eliquis will remain on hold until cleared by the general surgery. She is currently on CPAP. Blood pressure 107/55, heart rate in the 60s, pulse ox 97%. Repeat blood work reveals hemoglobin 7.5, BUN 25 creatinine 1.15. PHYSICAL EXAM: VITAL SIGNS: Reviewed. GENERAL: Well-developed in no acute distress. NECK: Supple. No JVD or thyromegaly LUNGS: Respirations even and unlabored. Lungs essentially clear to auscultation bilaterally. HEART: Regular rate and rhythm. S1 and S2 heard. Systolic murmur noted. EXTREMITIES: Normal range of motion. No clubbing or cyanosis. Peripheral pul ses intact. 1-2+ pitting bilateral lower extremity edema, improving ASSESSMENT: Acute on chronic diastolic heart failure Severe anemia, status post RBC transfusion, EGD scheduled today Probable acute blood loss anemia secondary to acute on chronic GI bleed History of aortic valve replacement, mitral valve replacement, tricuspid valve repair May 2024 at [facility] Coronary artery disease with prior stenting Dual-chamber pacemaker, [facility], November 2017 Paroxysmal atrial fibrillation on Eliquis Hyperlipidemia Diabetes mellitus type 2 Hypertension Moderate to severe pulmonary hypertension PLAN: Continue to monitor hemoglobin. Eliquis remains on hold. Resume Eliquis once cleared by general surgery. Continue oral Lasix 60 mg in the morning and 40 mg in the afternoon Daily weights, accurate intake and output, and monitoring of kidney function Patient is currently stable from a cardiac perspective Further recommendations pending patient course Nurse practitioner note has been reviewed by physician. Signing provider agrees with the documented findings, assessment, and plan of care documented by [employer] as a scribe. Objective - Vital Signs Vital signs: Vital Signs Temp 97.8 F 10/19/24 04:00 Pulse 65 10/19/24 04:00 Resp 16 10/19/24 04:00 BP 113/71 10/19/24 04:00 Pulse Ox 98 10/19/24 04:00 FiO2 Intake & Output 10/18/24 10/19/24 10/19/24 18:59 06:59 18:59 Intake Total 256 Output Total 200 350 Balance 56 -350 Weight 123.1 kg Intake: IV 20 Invasive Line 3 20 Oral 236 Output: Urine 200 350 Other: Voiding Method Toilet Toilet External Catheter External Catheter # Voids 1 # Bowel Movements 1 - Labs CBC & Chem 7: 10/19/24 06:41 10/19/24 06:41 Labs: Abnormal Lab Results - Last 24 Hours (Table) 10/18/24 10/18/24 10/18/24 Range/Units 07:36 11:26 16:22 RBC (3.80-5.40) m/uL Hgb (11.4-16.0) gm/dL Hct (34.0-46.0) % MCHC (31.0-37.0) g/dL RDW (11.5-15.5) % Lymphocytes # (1.0-4.8) k/uL Sodium 136 L (137-145) mmol/L Chloride 89 L (98-107) mmol/L Carbon Dioxide 39 H (22-30) mmol/L BUN 25 H (7-17) mg/dL Creatinine 1.23 H (0.52-1.04) mg/dL Glucose 127 H (74-99) mg/dL POC Glucose (mg/dL) 243 H 317 H (70-110) mg/dL Calcium 8.2 L (8.4-10.2) mg/dL 10/18/24 10/19/24 10/19/24 Range/Units 19:57 06:20 06:41 RBC 2.94 L (3.80-5.40) m/uL Hgb 7.5 L (11.4-16.0) gm/dL Hct 24.6 L (34.0-46.0) % MCHC 30.3 L (31.0-37.0) g/dL RDW 18.6 H (11.5-15.5) % Lymphocytes # 0.5 L (1.0-4.8) k/uL Sodium (137-145) mmol/L Chloride (98-107) mmol/L Carbon Dioxide (22-30) mmol/L BUN (7-17) mg/dL Creatinine (0.52-1.04) mg/dL Glucose (74-99) mg/dL POC Glucose (mg/dL) 322 H 164 H (70-110) mg/dL Calcium (8.4-10.2) mg/dL 10/19/24 Range/Units 06:41 RBC (3.80-5.40) m/uL Hgb (11.4-16.0) gm/dL Hct (34.0-46.0) % MCHC (31.0-37.0) g/dL RDW (11.5-15.5) % Lymphocytes # (1.0-4.8) k/uL Sodium 134 L (137-145) mmol/L Chloride 93 L (98-107) mmol/L Carbon Dioxide 40 H (22-30) mmol/L BUN 25 H (7-17) mg/dL Creatinine 1.15 H (0.52-1.04) mg/dL Glucose 143 H (74-99) mg/dL POC Glucose (mg/dL) (70-110) mg/dL Calcium 7.7 L (8.4-10.2) mg/dL
[2024-10-19] MEDS: LACTULOSE 20 GM/30 ML CUP PO SCH (12:07)
[2024-10-19 16:23] LABS: Glucose,Whole Blood 290 mg/dL (70-110)
--- NOTE | 2024-10-19 16:32 | P.PN ---
Subjective Progress Note Date: 10/19/24 This is a 79-year-old female patient who is being seen in consultation for metabolic alkalosis. The patient was hospitalized on 10/08/2024 and the patient was in significant volume overload and she was also complaining of some shortness of breath and the patient's chest x-ray showed a left-sided pleural effusion. The patient had previous history of aortic valve placement and mitral valve replacement and tricuspid valve repair patient also has history of coronary artery disease and the patient has undergone previous stenting of the mid LAD and ostial PDA.The patient has a dual-chamber pacemaker insertion. She has paroxysmal atrial fibrillation, diabetes mellitus type 2, hypertension hyperlipidemia. The patient underwent her cardiac surgery at the [facility] back in May of this year. [facility] has been [facility]. She is also known to have obstructive sleep apnea. I have seen her in the sleep center in the past and the patient has been maintained on the BiPAP pressure of 18 over 14 cm of water and she has been quite compliant with treatment. She is also on oxygen and she had progressive worsening in her hypoxemia along with increased shortness of breath. Based on that, the patient came into the hospital. EKG showed a paced rhythm. The chest x-ray showed cardiomegaly and bilateral pleural effusion worse on the left. The patient's hemoglobin was low at 6.2 and dropped down to 5.5. The patient was transfused with a total of 3 units of packed RBC during the current hospitalization the patient's hemoglobin is currently is at 8.2. A repeat echocardiogram was done during this current hospitalization on 10/09/2024 and the patient was found to have a normal LV with an ejection fraction of 6065%, severe pulm hypertension with a PA pressure of 56. The patient had mitral valve replacement with mild mitral stenosis and aortic valve replacement without any valvular abnormalities or regurgitation. No evidence of any pericardial effusion. During this current admission, the patient was subjected to diuresis the patient is currently on Lasix 40 mg IV every 8 hours and the patient is also on Zaroxolyn 5 mg p.o. daily and Aldactone 25 mg p.o. daily. I checked the fluid balance and over the past 4 days, the patient has been in the negative fluid balance of at least 8 L. There has been also steady increase in his serum bicarb. The patient is i nitial bicarb at the time of admission was 28 and currently is up to 42. I obtained a follow-up chest x-ray this morning and it showed overall stable findings consistent with CHF and pulm vessel congestion. There is a small to moderate-sized left-sided pleural effusion along with some adjacent atelectatic change. Hemoglobin is at 8.2 with a white cell count of 6.4 and a platelet count of 127. BUN is 19 with a creatinine of 1.09 and sodium levels at 136 and potassium levels at 3.1. She remains on Levemir insulin 20 units nightly and NovoLog sliding scale coverage. She is also on Toprol 50 mg p.o. twice daily and IV Protonix. She remains on aspirin. On 10/14/2024, the patient is being seen for a follow-up. The patient is doing well. She continues to diurese well. Fluid balance has been -2.5 L over the past 24 hours. Nevertheless, she continues to have significant amount of edema in the abdomen lower extremities involving the thighs. BUN is 18 with a creatinine of 1.22. The patient developed metabolic alkalosis. The serum bicarb was quite elevated and the patient received a total of 2 doses of Diamox and the serum bicarb is down to 37. Meanwhile, the diuretics have been modified and the patient is currently on Lasix 60 mg in the morning and 40 mg in the evening. The patient is also on Zaroxolyn 5 mg p.o. daily and Aldactone 25 mg p.o. daily. The patient is utilizing her BiPAP and once off the BiPAP, she is maintaining herself on oxygen at 5 L/min nasal cannula. No significant shortness of breath. No cough or sputum production. Edema still extensive. On 10/15/2024, the patient is being seen for a follow-up. Doing well. Still has edema lower extremities. Nevertheless, the fluid balance has been -2.5 L over the past 24 hours and if she is producing good urine output. She remains on Lasix 60 mg in the morning and 40 mg in the evenings p.o. and the patient remains on Aldactone 25 mg p.o. daily and Zaroxolyn 5 mg p.o. daily. She is utilizing her BiPAP routinely. No labs are available from today. Nevertheless, the patient is awake and alert and communicating. No other significant events overnight. On 10/16/2024, the patient remains clinically stable. No new complaints. Remains in negative fluid balance. She has developed some metabolic alkalosis with a serum bicarb of 37. BUN is 24 with a creatinine of 1.2. The white cell count is at 7.7 with a hemoglobin of 7.5. Continues to utilize her BiPAP on a regular basis. After BiPAP, she is on 5 L of oxygen nasal cannula. No new complaints. Diuretics include Lasix 60 mg morning and 40 mg the evening and the patient remains on Zaroxolyn and Aldactone. On 10/17/2024, the patient is sitting up in a chair and she is calm and comfortable and she reports improvement in her volume status and edema in lower extremities. She remains negative fluid balance. She continues to be on diu retics, a combination of Lasix, Aldactone and Zaroxolyn. Fluid balance is negative. BUN 25 with a creatinine of 1.1. Sodium levels at 133. No altered mentation. Using BiPAP and once off the BiPAP, the patient is on oxygen at 5 L/min nasal cannula. No cough. No sputum production. No fever or chills. No altered mentation. On 10/18/2024, the patient is being seen for a follow-up. Doing well. No specific complaints. Continues to diurese. Negative fluid balance. Maintain on BiPAP on and off during the day and continuously overnight. While off the BiPAP, the patient is on 5 L with a pulse ox of 99%. Hemoglobin is 8.1. Awaiting EGD and colonoscopy. The BUN is 25 with a creatinine of 1.23 and a serum bicarb is at 39 and sodium levels at 139. Remains on Lasix, Zaroxolyn and Aldactone. The patient is seen today October 19, 2024 in follow-up on the selective care unit. She is currently resting comfortably in bed. Awake and alert in no acute distress. She is maintaining O2 saturations in the 90s on 5 L/min per nasal cannula. She is utilizing BiPAP throughout the evenings and during the day while napping. She did undergo EGD today revealed no evidence of active bleeding. There is gastritis, duodenitis. Erosive esophagitis. White count 6.1. Hemoglobin 7.5. Platelets 156. Sodium 134. Potassium 3.7. Bicarb 40. BUN 25. Creatinine 1.15. Glucose 143. She remains on diuretics. Objective - Vital Signs Vital signs: Vital Signs Temp 97.4 F L 10/19/24 15:56 Pulse 63 10/19/24 15:56 Resp 16 10/19/24 15:56 BP 104/52 10/19/24 15:56 Pulse Ox 99 10/19/24 15:56 FiO2 Intake & Output 10/18/24 10/19/24 10/19/24 18:59 06:59 18:59 Intake Total 256 100 Output Total 200 350 Balance 56 -350 100 Weight 123.1 kg Intake: IV 20 100 Invasive Line 3 20 Oral 236 Output: Urine 200 350 Other: Voiding Method Toilet Toilet Toilet External Catheter External Catheter External Catheter # Voids 1 # Bowel Movements 1 - Exam GENERAL EXAM: Alert, obese 79-year-old female, on 5 L nasal cannula, comfortable in no apparent distress. HEAD: Normocephalic. EYES: Normal reaction of pupils, equal size. NOSE: Clear with pink turbinates. THROAT: No erythema or exudates. NECK: No masses, no JVD. CHEST: No chest wall deformity. LUNGS: Equal air entry with no crackles, wheeze, rhonchi or dullness. CVS: S1 and S2 normal with no audible murmur, regular rhythm. ABDOMEN: No hepatosplenomegaly, normal bowel sounds, no guarding or rigidity. SPINE: No scoliosis or deformity SKIN: No rashes CENTRAL NERVOUS SYSTEM: No focal deficits, tone is normal in all 4 extremities. EXTREMITIES: There is no peripheral edema. No clubbing, no cyanosis. Peripheral pulses are intact. - Labs CBC & Chem 7: 10/19/24 06:41 10/19/24 06:41 Labs: Abnormal Lab Results - Last 24 Hours (Table) 10/18/24 10/19/24 10/19/24 Range/Units 19:57 06:20 06:41 RBC 2.94 L (3.80-5.40) m/uL Hgb 7.5 L (11.4-16.0) gm/dL Hct 24.6 L (34.0-46.0) % MCHC 30.3 L (31.0-37.0) g/dL RDW 18.6 H (11.5-15.5) % Lymphocytes # 0.5 L (1.0-4.8) k/uL Sodium (137-145) mmol/L Chloride (98-107) mmol/L Carbon Dioxide (22-30) mmol/L BUN (7-17) mg/dL Creatinine (0.52-1.04) mg/dL Glucose (74-99) mg/dL POC Glucose (mg/dL) 322 H 164 H (70-110) mg/dL Calcium (8.4-10.2) mg/dL 10/19/24 10/19/24 10/19/24 Range/Units 06:41 11:19 16:22 RBC (3.80-5.40) m/uL Hgb (11.4-16.0) gm/dL Hct (34.0-46.0) % MCHC (31.0-37.0) g/dL RDW (11.5-15.5) % Lymphocytes # (1.0-4.8) k/uL Sodium 134 L (137-145) mmol/L Chloride 93 L (98-107) mmol/L Carbon Dioxide 40 H (22-30) mmol/L BUN 25 H (7-17) mg/dL Creatinine 1.15 H (0.52-1.04) mg/dL Glucose 143 H (74-99) mg/dL POC Glucose (mg/dL) 175 H 290 H (70-110) mg/dL Calcium 7.7 L (8.4-10.2) mg/dL Assessment and Plan Assessment: Acute on chronic dyspnea with signs of decompensated heart failure essentially due to diastolic heart failure and valvular heart disease. The patient had sign ificant volume overload at time of admission and the patient has been diuresed with IV Lasix and she is currently on a combination of p.o. Lasix, Zaroxolyn and Aldactone. The patient maintains a negative fluid balance Acute on chronic hypoxic respiratory failure, currently on 5 L of oxygen by nasa l cannula Obstructive sleep apnea maintained on BiPAP pressure of 18/14 cm of water, utilizing her on device from home Acute on chronic anemia, s/p transfusion with a total of 3 units of packed RBC. Hemoglobin is at 7.5. EGD today October 19, 2024 revealed no active bleeding History of valvular heart disease and the patient is status post aortic valve replacement, mitral valve replacement and tricuspid valve repair in May 2024 performed at [facility] Dual-chamber pacemaker insertion, November 2017 Paroxysmal A-fib maintained on anticoagulation with Eliquis Coronary artery disease with previous coronary stenting of the LAD and ostial PDA Diabetes mellitus type 2 Hyperlipidemia Hypertension Severe pulmonary hypertension, group 2 Metabolic alkalosis developed during this current hospital stay due to aggressive diuresis and the patient has been increased 8 to 9 L negative fluid balance with ongoing edema. The patient was given 2 doses of Diamox and the metabolic alkalosis improved. Plan: The patient was seen and evaluated EGD results reviewed Labs and medications reviewed Current hemoglobin 7.5 Status post 3 units packed red blood cells this admission Titrate down the FiO2 as tolerated We will continue to follow I have personally seen and examined the patient, performed the documentation and the assessment and plan as written. Number of minutes spent on the visit: 10 Dictation was produced using [employer] dictation software. Please excuse any grammatical, word or spelling errors.
--- NOTE | 2024-10-19 18:06 | P.PN ---
Subjective Progress Note Date: 10/19/24 Lissett remains on hold ,patient is n.p.o., scheduled for EGD today with general surgery. Pending EGD results potential colonoscopy. Hemoglobin decreased to 7.5, platelets 156. Glucose 127, BUN 25, creatinine 1.15, carb 40. Maintaining O2 sats in the 90s on 5 L nasal cannula. Used BiPAP during the night. Denies chest pain, palpitations or increase in shortness of breath. Denies lightheadedness dizziness or focal deficits. Denies abdominal pain. Objective - Vital Signs Vital signs: Vital Signs Temp 97.4 F L 10/19/24 15:56 Pulse 63 10/19/24 15:56 Resp 16 10/19/24 15:56 BP 104/52 10/19/24 15:56 Pulse Ox 99 10/19/24 15:56 FiO2 Intake & Output 10/18/24 10/19/24 10/19/24 18:59 06:59 18:59 Intake Total 256 100 Output Total 200 350 Balance 56 -350 100 Weight 123.1 kg Intake: IV 20 100 Invasive Line 3 20 Oral 236 Output: Urine 200 350 Other: Voiding Method Toilet Toilet Toilet External Catheter External Catheter External Catheter # Voids 1 # Bowel Movements 1 - Exam PHYSICAL EXAM: VITAL SIGNS: [Reviewed] GENERAL: Alert and oriented x 3, sitting up in bed, no acute distress HEENT: Conjunctivae normal. eyes normal. NECK: Supple, no JVD. CARDIOVASCULAR: S1, S2 regular. Systolic murmur. RESPIRATION: Unlabored , equal air entry ,breath sounds diminished in the bases. No rhonchi or crackles. ABDOMEN: Soft, nontender . No guarding. no masses palpable. No ascites, No hepatosplenomegaly.Bowel sounds heard. LEGS: No edema. no swelling NERVOUS SYSTEM: Cranial N 2-12 grossly normal.No focal deficits. Strength and sensation grossly intact. Skin: Warm and dry no rash - Labs CBC & Chem 7: 10/19/24 06:41 10/19/24 06:41 Labs: Abnormal Lab Results - Last 24 Hours (Table) 10/18/24 10/19/24 10/19/24 Range/Units 19:57 06:20 06:41 RBC 2.94 L (3.80-5.40) m/uL Hgb 7.5 L (11.4-16.0) gm/dL Hct 24.6 L (34.0-46.0) % MCHC 30.3 L (31.0-37.0) g/dL RDW 18.6 H (11.5-15.5) % Lymphocytes # 0.5 L (1.0-4.8) k/uL Sodium (137-145) mmol/L Chloride (98-107) mmol/L Carbon Dioxide (22-30) mmol/L BUN (7-17) mg/dL Creatinine (0.52-1.04) mg/dL Glucose (74-99) mg/dL POC Glucose (mg/dL) 322 H 164 H (70-110) mg/dL Calcium (8.4-10.2) mg/dL 10/19/24 10/19/24 10/19/24 Range/Units 06:41 11:19 16:22 RBC (3.80-5.40) m/uL Hgb (11.4-16.0) gm/dL Hct (34.0-46.0) % MCHC (31.0-37.0) g/dL RDW (11.5-15.5) % Lymphocytes # (1.0-4.8) k/uL Sodium 134 L (137-145) mmol/L Chloride 93 L (98-107) mmol/L Carbon Dioxide 40 H (22-30) mmol/L BUN 25 H (7-17) mg/dL Creatinine 1.15 H (0.52-1.04) mg/dL Glucose 143 H (74-99) mg/dL POC Glucose (mg/dL) 175 H 290 H (70-110) mg/dL Calcium 7.7 L (8.4-10.2) mg/dL Assessment and Plan Assessment: Acute on chronic anemia, status post 3 units packed RBCs, EGD pending Acute on chronic CHF, diastolic dysfunction Acute on chronic hypoxic respiratory failure, secondary to the above Moderate to severe pulmonary hypertension Diabetes mellitus type 2 History of aortic valve replacement, mitral valve replacement and tricuspid valve repair May 2024-[facility] Paroxysmal atrial fibrillation, anticoagulated with Eliquis CAD, history of stent Dual-chamber pacemaker, [facility] [place],11/2017 Hypertension Hyperlipidemia Plan: Continue on current medication regimen ,monitoring and symptomatic treatment. Maintain n.p.o., continue holding Eliquis, EGD pending. Diuresing metolazone and oral Lasix. The impression and plan of care has been dictated as directed. : I performed a history and examination of this patient, discussed the same with the dictator. I agree with the dictator's note ,documented as a scribe. Any additional findings or plans will be noted.
[2024-10-19 19:54] LABS: Glucose,Whole Blood 294 mg/dL (70-110)
--- NOTE | 2024-10-19 21:59 | P.PN ---
Subjective Progress Note Date: 10/19/24 CHIEF COMPLAINT: GI bleed HISTORY OF PRESENT ILLNESS: The patient is a 79-year-old female with GI bleed. She completed upper endoscopy. Daughter is at bedside. She denies any abdominal pain. ROS: No reports of nausea and vomiting. No bowel movements. No fevers or chills. No new chest pain. No productive sputum PHYSICAL EXAM: VITAL SIGNS: Reviewed CONSTITUTIONAL: Well developed and in no acute distress. EYES: Conjuctivae without sclera icterus. Extraocular movements grossly intact. HEAD, EARS, NOSE, THROAT: Moist buccal mucosa. Head is atraumatic, normocephalic. Hears conversational speech. No nasal drainage. RESPIRATORY: Non-labored respirations and equal bilateral excursions. CARDIOVASCULAR: Palpable 2+ radial pulses. ABDOMEN: Obese. Nontender. MUSCULOSKELETAL: No gross deformity of the lower extremities noted. No clubbing. No cyanosis. SKIN: Good skin turgor. Well perfused. NEUROLOGIC: Cranial nerves II through XII grossly intact. No focal or lateralizing signs. PSYCH: Appropriate affect. Alert and oriented to person, place and time. CLINICAL LABS: Reviewed. Hemoglobin down 8.1-7.5, anemia. ASSESSMENT: 1. Gastrointestinal bleed 2. Status post blood transfusion 3. Congestive heart failure with diastolic dysfunction 4. History of triple valve replacement 5. Acute blood loss anemia PLAN: 1. Recommend colonoscopy due to unremarkable upper endoscopy. Patient reports last colonoscopy was over 15 years ago. 2. Due to patient's recent diastolic dysfunction with congestive heart failure, slow cleanse described including a low volume GI prep. 3. Clear liquid diet today and tomorrow Objective - Vital Signs Vital signs: Vital Signs Temp 97.4 F L 10/19/24 15:56 Pulse 63 10/19/24 15:56 Resp 16 10/19/24 15:56 BP 104/52 10/19/24 15:56 Pulse Ox 99 10/19/24 15:56 FiO2 Intake & Output 10/19/24 10/19/24 10/20/24 06:59 18:59 06:59 Intake Total 280 240 Output Total 350 Balance -350 280 240 Weight 123.1 kg Intake: IV 100 Oral 180 240 Output: Urine 350 Other: Voiding Method Toilet Toilet External Catheter External Catheter - Labs CBC & Chem 7: 10/19/24 06:41 10/19/24 06:41 Labs: Abnormal Lab Results - Last 24 Hours (Table) 10/19/24 10/19/24 10/19/24 Range/Units 06:20 06:41 06:41 RBC 2.94 L (3.80-5.40) m/uL Hgb 7.5 L (11.4-16.0) gm/dL Hct 24.6 L (34.0-46.0) % MCHC 30.3 L (31.0-37.0) g/dL RDW 18.6 H (11.5-15.5) % Lymphocytes # 0.5 L (1.0-4.8) k/uL Sodium 134 L (137-145) mmol/L Chloride 93 L (98-107) mmol/L Carbon Dioxide 40 H (22-30) mmol/L BUN 25 H (7-17) mg/dL Creatinine 1.15 H (0.52-1.04) mg/dL Glucose 143 H (74-99) mg/dL POC Glucose (mg/dL) 164 H (70-110) mg/dL Calcium 7.7 L (8.4-10.2) mg/dL 10/19/24 10/19/24 10/19/24 Range/Units 11:19 16:22 19:52 RBC (3.80-5.40) m/uL Hgb (11.4-16.0) gm/dL Hct (34.0-46.0) % MCHC (31.0-37.0) g/dL RDW (11.5-15.5) % Lymphocytes # (1.0-4.8) k/uL Sodium (137-145) mmol/L Chloride (98-107) mmol/L Carbon Dioxide (22-30) mmol/L BUN (7-17) mg/dL Creatinine (0.52-1.04) mg/dL Glucose (74-99) mg/dL POC Glucose (mg/dL) 175 H 290 H 294 H (70-110) mg/dL Calcium (8.4-10.2) mg/dL
[2024-10-20 06:11] LABS: Glucose,Whole Blood 69 mg/dL (70-110)
[2024-10-20 07:28] LABS: Anisocytosis Slight; Basophils # (A) 0.1 k/uL (0-0.2); Basophils % (A) 1 %; Eosinophils # (A) 0.2 k/uL (0-0.7); Eosinophils % (A) 3 %; HCT 25.3 % (34.0-46.0); HGB 7.5 gm/dL (11.4-16.0); Hypochromasia Marked; Lymphocytes # (A) 0.5 k/uL (1.0-4.8); Lymphocytes % (A) 8 %; MCHC 29.6 g/dL (31.0-37.0); MCV 84.2 fL (80.0-100.0); Mean Platelet Volume 7.6; Monocytes # (A) 0.4 k/uL (0-1.0); Monocytes % (A) 6 %; Neutrophils # (A) 4.9 k/uL (1.3-7.7); Neutrophils % (A) 81 %; Platelet Count 159 k/uL (150-450); Poikilocytosis Slight; RBC 3.01 m/uL (3.80-5.40)
[2024-10-20 07:35] LABS: African American GFR (CKD) 59 (>60 ml/min/1.73 sqM); Anion Gap 4 mmol/L; Blood Urea Nitrogen 23 mg/dL (7-17); Calcium 7.9 mg/dL (8.4-10.2); Chloride 90 mmol/L (98-107); Glucose 80 mg/dL (74-99); Non-African American GFR(CKD) 51 (>60 ml/min/1.73 sqM); Potassium 3.5 mmol/L (3.5-5.1); Sodium 134 mmol/L (137-145)
[2024-10-20 07:56] LABS: Carbon Dioxide 34 mmol/L (22-30)
[2024-10-20] MEDS ORDERED: LIDOCAINE 1% (10MG/ML) FOR IV START INTRADERMA PRN (08:11)
[2024-10-20] MEDS: PEG 3350 (236 GM/BTL) + LYTES 4,000 ML BOTTLE PO ONE ×2 (10:28→17:55)
--- NOTE | 2024-10-20 11:17 | P.PN ---
Subjective Progress Note Date: 10/20/24 HISTORY OF PRESENT ILLNESS: This is a 79-year-old female patient of Dr. 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 We have been asked to evaluate the patient for CHF. Patient presented to the emergency center due to severe weakness and shortness of breath. Patient underwent aortic valve replacement, mitral valve replacement and tricuspid valve repair at [facility] in May of this year. She has had follow-up with Dr. Watson with complaints of continued limited physical activity, dyspnea and peripheral edema and fatigue. She has not felt any real improvement of her symptoms since she had her surgery and is disappointed about that. She denies having any chest pain or chest pressure. Her shortness of breath seems to be worsening and she has had significantly worse edema extending into her abdomen. She apparently has also been started on home oxygen which she is increased to 7 L. Regarding anemia, patient did receive 3 to 4 units after her surgery in May and she has h ad follow-up lab work done in July with her PCP and she was not contacted about any abnormality at that time. Also, patient is not eating or drinking very much. She states she has no appetite and has lost her sense of taste since the surgery. She denies any abdominal pain. Daughter states that she has had a distended abdomen for few weeks that waxes and wanes. Patient states her stools are very dark but not black. She has not been on iron at home. She has been taking baby aspirin and Eliquis although aspirin is not listed on her home medication list. She denies any vaginal bleeding. Blood pressure 116/60, heart rate 100, pulse ox 99% on CPAP. Patient is seen today in the emergency center waiting for a bed on the cardiac stepdown unit. Eliquis has been placed on hold. Patient has been seen by GI with plan for EGD tomorrow if cleared by cardiology. -EKG: Atrial paced rhythm -Chest x-ray: Cardiomegaly, pulmonary vascular congestion and bilateral pleural effusions. -Laboratory studies: Hemoglobin initially 6.2 now 5.5. Sodium 134, BUN 32 and creatinine 0.91. Hemoglobin A1c 7.5. Troponin 0.065, 0.052, 0.048. proBNP 2830. -Home cardiac medications: Eliquis 5 mg twice daily, Lasix 20 mg twice daily, Imdur 30 mg daily, Toprol-XL 50 mg daily, Crestor 40 mg at bedtime, also on levothyroxine 175 mcg daily. -Echocardiogram performed 05/24/2024 revealed normal EF, prosthetic AV, prosthetic MV, TV repair. -Cardiovascular surgery 05/20/2024: Tissue AVR, tissue MVR, TV repair -Previous CV surgery 11/06/2018: TAVR. -Cardiac catheterization 2020 with stent placed in the mid D1, stent in the ostial PDA. 10/12/2024 Patient examined this morning at the bedside. Patient currently denies chest pain or pressure. She denies shortness of breath. She continues to have significant lower extremity edema. Patient is feeling ember at the bedside also reports she has a lot of swelling around her abdomen which is not normal for her. Echocardiogram completed revealing ejection fraction 60 to 65%, status post mitral valve replacement, mild mitral stenosis, mean gradient 6 mmHg, aortic valve replacement with no perivalvular aortic regurgitation, moderate to severe pulmonary hypertension. Hemoglobin today 8.1. Telemetry reveals paced rhythm at 60. 10/13/2024 Patient examined this morning at the bedside. Patient is currently sitting up in the chair. Patient currently denies chest pain or pressure. She denies shortness of breath. She remains on IV diuretics. She continues to have lower extremity edema. CO2 42 today. She has been started on Diamox per pulmonary medicine. blood pressure 118/63. BUN 19. Creatinine 1.04. Hemoglobin today 8.2. Eliquis remains on hold. Telemetry reveals paced rhythm. 10/14/2024 Patient examined this morning the bedside. Patient denies having any chest pain or pressure. She denies shortness of breath. Remains on IV Lasix. Patient CO2 improved today. She was given Diamox x 2 doses yesterday per pulmonary medicine. She continues to have lower extremity edema although improving. Telemetry reveals paced rhythm. 10/15/2024 Patient examined this morning at the bedside. Patient on CPAP at the time of examination. She denies chest pain or pressure. She denies shortness of breath. She has been transitioned to oral Lasix. 10/16/2024 Patient examined this morning at the bedside. Patient currently denies chest pain or pressure. She denies shortness of breath. She remains on oral diuretics. Creatinine today 1.23. Patient's lower extremity edema is slowly improving. Hemoglobin stable at 7.9. Her Ugois remains on hold. 10/17/2024 Patient examined this morning. She is sitting up in the chair. Patient currently denies chest pain or pressure. She denies shortness of breath. She remains on oral diuretics. Creatinine today 1.19. It was noted that the patient was eating Pringles yesterday plan evaluation. Patient was once again educated on low-sodium diet. She verbalized understanding. 10/18/2024 Patient examined this morning at the bedside. Patient currently denies chest pain or pressure. She denies shortness of breath. She remains on oral diuretics. Creatinine stable at 1.23. Hemoglobin stable at 8.1. Her Nayeliquis remains on hold. 10/19/24 Patient seen and examined. Patient is scheduled for EGD today with general surgery. Lissett remains on hold and family member asking about this. Lissett will remain on hold until cleared by the general surgery. She is currently on CPAP. Blood pressure 107/55, heart rate in the 60s, pulse ox 97%. Repeat blood work reveals hemoglobin 7.5, BUN 25 creatinine 1.15. 10/20/2024 Patient seen and examined. Yesterday she underwent EGD that did not find source of bleeding. She is now scheduled for colonoscopy tomorrow. Lissett remains on hold until cleared by general surgery. She states she is feeling well today. No chest pain and no shortness of breath. Blood pressure 115/70, heart rate 63, pulse ox 99% on 5 L nasal cannula. Repeat blood work reveals hemoglobin 7.5, BUN 23 and creatinine 1.05. PHYSICAL EXAM: VITAL SIGNS: Reviewed. GENERAL: Well-developed in no acute distress. NECK: Supple. No JVD or thyro, BUN 23 creatinine 1.05.megaly LUNGS: Respirations even and unlabored. Lungs essentially clear to auscultation bilaterally. HEART: Regular rate and rhythm. S1 and S2 heard. Systolic murmur noted. EXTREMITIES: Normal range of motion. No clubbing or cyanosis. Peripheral pulses intact. 1-2+ pitting bilateral lower extremity edema, improving ASSESSMENT: Acute on chronic diastolic heart failure Severe anemia, status post RBC transfusion, status post EGD and colonoscopy is scheduled for tomorrow Probable acute blood loss anemia secondary to acute on chronic GI bleed History of aortic valve replacement, mitral valve replacement, tricuspid valve repair May 2024 at [facility] Coronary artery disease with prior stenting Dual-chamber pacemaker, [facility], November 2017 Paroxysmal atrial fibrillation on Eliquis Hyperlipidemia Diabetes mellitus type 2 Hypertension Moderate to severe pulmonary hypertension PLAN: Continue to monitor hemoglobin. Eliquis remains on hold. Resume Eliquis once cleared by general surgery. Continue oral Lasix 60 mg in the morning and 40 mg in the afternoon Daily weights, accurate intake and output, and monitoring of kidney function Patient is currently stable from a cardiac perspective Further recommendations pending patient course Nurse practitioner note has been reviewed by physician. Signing provider agrees with the documented findings, assessment, and plan of care documented by TEACHING FELLOW as a scribe. Objective - Vital Signs Vital signs: Vital Signs Temp 98.1 F 10/20/24 04:00 Pulse 63 10/20/24 04:00 Resp 16 10/20/24 04:00 BP 119/58 10/20/24 04:00 Pulse Ox 95 10/20/24 04:00 FiO2 Intake & Output 10/19/24 10/20/24 10/20/24 18:59 06:59 18:59 Intake Total 280 240 Output Total 500 Balance 280 -260 Weight 121 kg Intake: IV 100 Oral 180 240 Output: Urine 500 Other: Voiding Method Toilet Toilet External Catheter External Catheter - Labs CBC & Chem 7: 10/20/24 07:03 10/20/24 07:03 Labs: Abnormal Lab Results - Last 24 Hours (Table) 10/19/24 10/19/24 10/19/24 Range/Units 11:19 16:22 19:52 RBC (3.80-5.40) m/uL Hgb (11.4-16.0) gm/dL Hct (34.0-46.0) % MCHC (31.0-37.0) g/dL RDW (11.5-15.5) % Lymphocytes # (1.0-4.8) k/uL Sodium (137-145) mmol/L Chloride (98-107) mmol/L Carbon Dioxide (22-30) mmol/L BUN (7-17) mg/dL Creatinine (0.52-1.04) mg/dL POC Glucose (mg/dL) 175 H 290 H 294 H (70-110) mg/dL Calcium (8.4-10.2) mg/dL 10/20/24 10/20/24 10/20/24 Range/Units 06:10 07:03 07:03 RBC 3.01 L (3.80-5.40) m/uL Hgb 7.5 L (11.4-16.0) gm/dL Hct 25.3 L (34.0-46.0) % MCHC 29.6 L (31.0-37.0) g/dL RDW 19.0 H (11.5-15.5) % Lymphocytes # 0.5 L (1.0-4.8) k/uL Sodium 134 L (137-145) mmol/L Chloride 90 L (98-107) mmol/L Carbon Dioxide 34 H (22-30) mmol/L BUN 23 H (7-17) mg/dL Creatinine 1.05 H (0.52-1.04) mg/dL POC Glucose (mg/dL) 69 L (70-110) mg/dL Calcium 7.9 L (8.4-10.2) mg/dL
[2024-10-20 11:56] LABS: Glucose,Whole Blood 174 mg/dL (70-110)
--- NOTE | 2024-10-20 12:03 | P.PN ---
Subjective Progress Note Date: 10/20/24 CHIEF COMPLAINT: GI bleed HISTORY OF PRESENT ILLNESS: Surgical service following regards to patient's GI bleed. Patient reports having a brown bowel movement yesterday. No further dark stools. Her EGD had reported erosive esophagitis, chronic gastritis, duodenitis and a duodenal polyp. Blood found on the posterior oropharynx. Hemoglobin stable at 7.5. Vital stable. PHYSICAL EXAM: VITAL SIGNS: Reviewed GENERAL: Well-developed in no acute distress. HEENT: No sclera icterus. Extraocular movements grossly intact. Moist buccal mucosa. Head is atraumatic, normocephalic. Hears conversational speech. No nasal drainage. NECK: Supple without lymphadenopathy. CHEST: Non-labored respirations and equal bilateral excursions. CARDIOVASCULAR: Palpable 2+ radial pulses. ABDOMEN: Soft. Nondistended. Nontender. MUSCULOSKELETAL: No clubbing or cyanosis. NEUROLOGIC: No focal or lateralizing signs. Cranial nerves II through XII grossly intact. PSYCH: Appropriate affect. Alert and oriented to person, place and time. SKIN: Well perfused. Good skin turgor. ASSESSMENT: 1. Gastrointestinal bleed 2. Status post blood transfusion 3. Congestive heart failure with diastolic dysfunction 4. History of triple valve replacement 5. Acute blood loss anemia PLAN: -Patient scheduled for colonoscopy tomorrow -Bowel prep today with 2 L of GoLytely, milk of mag and lactulose -Clear liquid diet today -N.p.o. after midnight Physician Log Operations Coordinator note has been reviewed by physician. Signing provider agrees with the documented findings, assessment, and plan of care. As above. Recommend low volume prep due to recent congestive heart failure. Patient is elevated risk for colonoscopy. Overall, hemoglobin stable 7.5 in the last 24 hours. Objective - Vital Signs Vital signs: Vital Signs Temp 98.8 F 10/20/24 08:00 Pulse 63 10/20/24 08:00 Resp 20 10/20/24 08:00 BP 115/70 10/20/24 08:00 Pulse Ox 99 10/20/24 08:00 FiO2 Intake & Output 10/19/24 10/20/24 10/20/24 18:59 06:59 18:59 Intake Total 280 240 Output Total 500 Balance 280 -260 Weight 121 kg Intake: IV 100 Oral 180 240 Output: Urine 500 Other: Voiding Method Toilet Toilet Toilet External Catheter External Catheter External Catheter - Labs CBC & Chem 7: 10/21/24 06:43 10/21/24 06:43 Labs: Abnormal Lab Results - Last 24 Hours (Table) 10/19/24 10/19/24 10/20/24 Range/Units 16:22 19:52 06:10 RBC (3.80-5.40) m/uL Hgb (11.4-16.0) gm/dL Hct (34.0-46.0) % MCHC (31.0-37.0) g/dL RDW (11.5-15.5) % Lymphocytes # (1.0-4.8) k/uL Sodium (137-145) mmol/L Chloride (98-107) mmol/L Carbon Dioxide (22-30) mmol/L BUN (7-17) mg/dL Creatinine (0.52-1.04) mg/dL POC Glucose (mg/dL) 290 H 294 H 69 L (70-110) mg/dL Calcium (8.4-10.2) mg/dL 10/20/24 10/20/24 10/20/24 Range/Units 07:03 07:03 11:47 RBC 3.01 L (3.80-5.40) m/uL Hgb 7.5 L (11.4-16.0) gm/dL Hct 25.3 L (34.0-46.0) % MCHC 29.6 L (31.0-37.0) g/dL RDW 19.0 H (11.5-15.5) % Lymphocytes # 0.5 L (1.0-4.8) k/uL Sodium 134 L (137-145) mmol/L Chloride 90 L (98-107) mmol/L Carbon Dioxide 34 H (22-30) mmol/L BUN 23 H (7-17) mg/dL Creatinine 1.05 H (0.52-1.04) mg/dL POC Glucose (mg/dL) 174 H (70-110) mg/dL Calcium 7.9 L (8.4-10.2) mg/dL
--- NOTE | 2024-10-20 15:43 | P.PN ---
Subjective Progress Note Date: 10/20/24 Principal diagnosis: Acute on chronic diastolic congestive heart failure, acute on chronic hypoxic respiratory failure with history of obstructive sleep apnea syndrome and valvular heart disease. This is a 79-year-old female patient who is being seen in consultation for metabolic alkalosis. The patient was hospitalized on 10/08/2024 and the patient was in significant volume overload and she was also complaining of some shortness of breath and the patient's chest x-ray showed a left-sided pleural effusion. The patient had previous history of aortic valve placement and mitral valve replacement and tricuspid valve repair patient also has history of coronary artery disease and the patient has undergone previous stenting of the mid LAD and ostial PDA.The patient has a dual-chamber pacemaker insertion. She has paroxysmal atrial fibrillation, diabetes mellitus type 2, hypertension hyperlipidemia. The patient underwent her cardiac surgery at the [facility] back in May of this year. She has been followed by [facility]. She is also known to have obstructive sleep apnea. I have seen her in the sleep center in the past and the patient has been maintained on the BiPAP pressure of 18 over 14 cm of water and she has been quite compliant with treat ent. She is also on oxygen and she had progressive worsening in her hypoxemia along with increased shortness of breath. Based on that, the patient came into the hospital. EKG showed a paced rhythm. The chest x-ray showed cardiomegaly and bilateral pleural effusion worse on the left. The patient's hemoglobin was low at 6.2 and dropped down to 5.5. The patient was transfused with a total of 3 units of packed RBC during the current hospitalization the patient's hemoglobin is currently is at 8.2. A repeat echocardiogram was done during this current hospitalization on 10/09/2024 and the patient was found to have a normal LV with an ejection fraction of 6065%, severe pulm hypertension with a PA pressure of 56. The patient had mitral valve replacement with mild mitral stenosis and aortic valve replacement without any valvular abnormalities or regurgitation. No evidence of any pericardial effusion. During this current admission, the patient was subjected to diuresis the patient is currently on Lasix 40 mg IV every 8 hours and the patient is also on Zaroxolyn 5 mg p.o. daily and Aldactone 25 mg p.o. daily. I checked the fluid balance and over the past 4 days, the patient has been in the negative fluid balance of at least 8 L. There has been also steady increase in his serum bicarb. The patient is initial bicarb at the time of admission was 28 and currently is up to 42. I obtained a follow-up chest x-ray this morning and it showed overall stable findings consistent with CHF and pulm vessel congestion. There is a small to moderate-sized left-sided pleural effusion along with some adjacent atelectatic change. Hemoglobin is at 8.2 with a white cell count of 6.4 and a platelet count of 127. BUN is 19 with a creatinine of 1.09 and sodium levels at 136 and potassium levels at 3.1. She remains on Levemir insulin 20 units nightly and NovoLog sliding scale coverage. She is also on Toprol 50 mg p.o. twice daily and IV Protonix. She remains on aspirin. On 10/14/2024, the patient is being seen for a follow-up. The patient is doing well. She continues to diurese well. Fluid balance has been -2.5 L over the past 24 hours. Nevertheless, she continues to have significant amount of edema in the abdomen lower extremities involving the thighs. BUN is 18 with a c reatinine of 1.22. The patient developed metabolic alkalosis. The serum bicarb was quite elevated and the patient received a total of 2 doses of Diamox and the serum bicarb is down to 37. Meanwhile, the diuretics have been modified and the patient is currently on Lasix 60 mg in the morning and 40 mg in the evening. The patient is also on Zaroxolyn 5 mg p.o. daily and Aldactone 25 mg p.o. daily. The patient is utilizing her BiPAP and once off the BiPAP, she is maintaining herself on oxygen at 5 L/min nasal cannula. No significant shortness of breath. No cough or sputum production. Edema still extensive. On 10/15/2024, the patient is being seen for a follow-up. Doing well. Still has edema lower extremities. Nevertheless, the fluid balance has been -2.5 L over the past 24 hours and if she is producing good urine output. She remains on Lasix 60 mg in the morning and 40 mg in the evenings p.o. and the patient remains on Aldactone 25 mg p.o. daily and Zaroxolyn 5 mg p.o. daily. She is utilizing her BiPAP routinely. No labs are available from today. Nevertheless, the patient is awake and alert and communicating. No other significant events overnight. On 10/16/2024, the patient remains clinically stable. No new complaints. Remains in negative fluid balance. She has developed some metabolic alkalosis with a serum bicarb of 37. BUN is 24 with a creatinine of 1.2. The white cell count is at 7.7 with a hemoglobin of 7.5. Continues to utilize her BiPAP on a regular basis. After BiPAP, she is on 5 L of oxygen nasal cannula. No new complaints. Diuretics include Lasix 60 mg morning and 40 mg the evening and the patient remains on Zaroxolyn and Aldactone. On 10/17/2024, the patient is sitting up in a chair and she is calm and comfortable and she reports improvement in her volume status and edema in lower extremities. She remains negative fluid balance. She continues to be on diuretics, a combination of Lasix, Aldactone and Zaroxolyn. Fluid balance is n egative. BUN 25 with a creatinine of 1.1. Sodium levels at 133. No altered mentation. Using BiPAP and once off the BiPAP, the patient is on oxygen at 5 L/min nasal cannula. No cough. No sputum production. No fever or chills. No altered mentation. On 10/18/2024, the patient is being seen for a follow-up. Doing well. No specific complaints. Continues to diurese. Negative fluid balance. Maintain on BiPAP on and off during the day and continuously overnight. While off the BiPAP, the patient is on 5 L with a pulse ox of 99%. Hemoglobin is 8.1. Awaiting EGD and colonoscopy. The BUN is 25 with a creatinine of 1.23 and a serum bicarb is at 39 and sodium levels at 139. Remains on Lasix, Zaroxolyn and Aldactone. The patient is seen today October 19, 2024 in follow-up on the selective care unit. She is currently resting comfortably in bed. Awake and alert in no acute distress. She is maintaining O2 saturations in the 90s on 5 L/min per nasal cannula. She is utilizing BiPAP throughout the evenings and during the day while napping. She did undergo EGD today revealed no evidence of active bleeding. There is gastritis, duodenitis. Erosive esophagitis. White count 6.1. Hemoglobin 7.5. Platelets 156. Sodium 134. Potassium 3.7. Bicarb 40. BUN 25. Creatinine 1.15. Glucose 143. She remains on diuretics. Patient today on 10/20/2024, feeling better, her EGD is basically nondiagnostic, patient is now scheduled to have colonoscopy. She was found to have gastritis duodenitis and erosive gastritis. Clinically the patient is feeling better, not in any distress, sitting at the bedside chair, denies any shortness of breath. Continues to have 5 L nasal cannula however her O2 saturation 100% her blood pressure is stable 105/53. And she is afebrile. WBC count is 6 hemoglobin 7.5, unchanged from yesterday and it was 7.5 hemoglobin was 8.1 on 10/18. Patient den ies any symptoms to suggest active bleeding Objective - Vital Signs Vital signs: Vital Signs Temp 98 F 10/20/24 12:55 Pulse 65 10/20/24 12:55 Resp 20 10/20/24 12:55 BP 105/53 10/20/24 12:55 Pulse Ox 100 10/20/24 12:55 FiO2 Intake & Output 10/19/24 10/20/24 10/20/24 18:59 06:59 18:59 Intake Total 280 240 Output Total 500 Balance 280 -260 Weight 121 kg Intake: IV 100 Oral 180 240 Output: Urine 500 Other: Voiding Method Toilet Toilet Toilet External Catheter External Catheter External Catheter - Exam GENERAL EXAM: 79-year-old female in no distress on nasal cannula BiPAP is at bedside, patient has been on BiPAP on a regular basis HEAD: Normocephalic. EYES: Normal reaction of pupils, equal size. NOSE: Clear with pink turbinates. THROAT: No erythema or exudates. NECK: No masses, no JVD. CHEST: No chest wall deformity. LUNGS: Equal air entry with no crackles, wheeze, rhonchi or dullness. CVS: S1 and S2 normal with no audible murmur, regular rhythm. ABDOMEN: No hepatosplenomegaly, normal bowel sounds, no guarding or rigidity. SKIN: No rashes CENTRAL NERVOUS SYSTEM: No focal deficits, tone is normal in all 4 extremities. EXTREMITIES: There is no peripheral edema. No clubbing, no cyanosis. Rain pheral pulses are intact. - Labs CBC & Chem 7: 10/20/24 07:03 10/20/24 07:03 Labs: Abnormal Lab Results - Last 24 Hours (Table) 10/19/24 10/19/24 10/20/24 Range/Units 16:22 19:52 06:10 RBC (3.80-5.40) m/uL Hgb (11.4-16.0) gm/dL Hct (34.0-46.0) % MCHC (31.0-37.0) g/dL RDW (11.5-15.5) % Lymphocytes # (1.0-4.8) k/uL Sodium (137-145) mmol/L Chloride (98-107) mmol/L Carbon Dioxide (22-30) mmol/L BUN (7-17) mg/dL Creatinine (0.52-1.04) mg/dL POC Glucose (mg/dL) 290 H 294 H 69 L (70-110) mg/dL Calcium (8.4-10.2) mg/dL 10/20/24 10/20/24 10/20/24 Range/Units 07:03 07:03 11:47 RBC 3.01 L (3.80-5.40) m/uL Hgb 7.5 L (11.4-16.0) gm/dL Hct 25.3 L (34.0-46.0) % MCHC 29.6 L (31.0-37.0) g/dL RDW 19.0 H (11.5-15.5) % Lymphocytes # 0.5 L (1.0-4.8) k/uL Sodium 134 L (137-145) mmol/L Chloride 90 L (98-107) mmol/L Carbon Dioxide 34 H (22-30) mmol/L BUN 23 H (7-17) mg/dL Creatinine 1.05 H (0.52-1.04) mg/dL POC Glucose (mg/dL) 174 H (70-110) mg/dL Calcium 7.9 L (8.4-10.2) mg/dL Assessment and Plan Assessment: Impression Acute on chronic dyspnea with signs of decompensated heart failure essentially due to diastolic heart failure and valvular heart disease. Remains on diuretics, improving. Acute on chronic hypoxic respiratory failure, currently on 5 L of oxygen by nasal cannula Obstructive sleep apnea maintained on BiPAP pressure of 18/14 cm of water, utilizing her on device from home Acute on chronic anemia, s/p transfusion with a total of 3 units of packed RBC. Hemoglobin is at 7.5. EGD today October 19, 2024 revealed no active bleeding History of valvular heart disease and the patient is status post aortic valve replacement, mitral valve replacement and tricuspid valve repair in May 2024 performed at [facility] Dual-chamber pacemaker insertion, November 2017 Paroxysmal A-fib maintained on anticoagulation with Eliquis Coronary artery disease with previous coronary stenting of the LAD and ostial PDA Diabetes mellitus type 2 Hyperlipidemia Hypertension Severe pulmonary hypertension, group 2 Metabolic alkalosis developed during this current hospital stay due to agg ressive diuresis and the patient has been increased 8 to 9 L negative fluid balance with ongoing edema. The patient was given 2 doses of Diamox and the metabolic alkalosis improved. Recommendation: Continue diuretics Reviewed the results of her EGD Continue to monitor hemoglobin today is 7.5 patient received a total of 3 units of packed RBCs since admission Patient is being considered for colonoscopy on . Will continue to follow Time with Patient: Less than 30
[2024-10-20 16:47] LABS: Glucose,Whole Blood 139 mg/dL (70-110)
[2024-10-20 20:07] LABS: Glucose,Whole Blood 228 mg/dL (70-110)
[2024-10-20] MEDS: LACTATED RINGERS 1,000 ML IV SCH (20:13)
[2024-10-21 05:59] LABS: Glucose,Whole Blood 108 mg/dL (70-110)
[2024-10-21 07:38] LABS: Anisocytosis Slight; HCT 25.6 % (34.0-46.0); HGB 7.6 gm/dL (11.4-16.0); Hypochromasia Marked; MCH 24.8 pg (25.0-35.0); MCHC 29.6 g/dL (31.0-37.0); MCV 83.7 fL (80.0-100.0); Mean Platelet Volume 7.9; Microcytosis Slight; Platelet Count 193 k/uL (150-450); Poikilocytosis Slight; RBC 3.06 m/uL (3.80-5.40); RDW 19.1 % (11.5-15.5); WBC 5.5 k/uL (3.8-10.6)
[2024-10-21 07:56] LABS: African American GFR (CKD) 58 (>60 ml/min/1.73 sqM); Anion Gap 6 mmol/L; Blood Urea Nitrogen 21 mg/dL (7-17); Carbon Dioxide 39 mmol/L (22-30); Chloride 89 mmol/L (98-107); Glucose 95 mg/dL (74-99); Non-African American GFR(CKD) 50 (>60 ml/min/1.73 sqM); Potassium 3.7 mmol/L (3.5-5.1); Sodium 134 mmol/L (137-145)
--- NOTE | 2024-10-21 11:04 | P.PN ---
Subjective Progress Note Date: 10/20/24 Lissett remains on hold ,patient is n.p.o., scheduled for EGD today with general surgery. Pending EGD results potential colonoscopy. Hemoglobin decreased to 7.5, platelets 156. Glucose 127, BUN 25, creatinine 1.15, carb 40. Maintaining O2 sats in the 90s on 5 L nasal cannula. Used BiPAP during the night. Denies chest pain, palpitations or increase in shortness of breath. Denies lightheadedness dizziness or focal deficits. Denies abdominal pain. 10/20/2024 hemoglobin remains at 7.5, platelets 159 .status post EGD reporting blood found in the posterior oropharynx, gastroesophageal reflux disease with erosive esophagitis nonbleeding gastritis, nonbleeding duodenitis, duodenal polyp. Scheduled for colonoscopy tomorrow. Positive bowel movement yesterday. Denies nosebleeds, denies nausea, vomiting or diarrhea. Denies abdominal pain. Denies chest pain, palpitations or increased shortness of breath. Denies lightheadedness, dizziness or focal deficits. Bicarb 34, BUN 23, creatinine 1.0 5. Afebrile, normal WBC. Objective - Vital Signs Vital signs: Vital Signs Temp 98 F 10/20/24 12:55 Pulse 65 10/20/24 12:55 Resp 20 10/20/24 12:55 BP 105/53 10/20/24 12:55 Pulse Ox 100 10/20/24 12:55 FiO2 Intake & Output 10/19/24 10/20/24 10/20/24 18:59 06:59 18:59 Intake Total 280 240 Output Total 500 Balance 280 -260 Weight 121 kg Intake: IV 100 Oral 180 240 Output: Urine 500 Other: Voiding Method Toilet Toilet Toilet External Catheter External Catheter External Catheter - Exam PHYSICAL EXAM: VITAL SIGNS: [Reviewed] GENERAL: Alert and oriented x 3, sitting up in bed, no acute distress HEENT: Conjunctivae normal. eyes normal. NECK: Supple, no JVD. CARDIOVASCULAR: S1, S2 regular. Systolic murmur. RESPIRATION: Unlabored , equal air entry , clear to auscultation. ABDOMEN: Soft, nontender . No guarding. no masses palpable. Positive bowel sounds. LEGS: Trace edema. no clubbing or cyanosis. NERVOUS SYSTEM: Cranial N 2-12 grossly normal.No focal deficits. Strength and sensation grossly intact. Skin: Warm and dry, no rash - Labs CBC & Chem 7: 10/21/24 06:43 10/21/24 06:43 Labs: Abnormal Lab Results - Last 24 Hours (Table) 10/19/24 10/19/24 10/20/24 Range/Units 16:22 19:52 06:10 RBC (3.80-5.40) m/uL Hgb (11.4-16.0) gm/dL Hct (34.0-46.0) % MCHC (31.0-37.0) g/dL RDW (11.5-15.5) % Lymphocytes # (1.0-4.8) k/uL Sodium (137-145) mmol/L Chloride (98-107) mmol/L Carbon Dioxide (22-30) mmol/L BUN (7-17) mg/dL Creatinine (0.52-1.04) mg/dL POC Glucose (mg/dL) 290 H 294 H 69 L (70-110) mg/dL Calcium (8.4-10.2) mg/dL 10/20/24 10/20/24 10/20/24 Range/Units 07:03 07:03 11:47 RBC 3.01 L (3.80-5.40) m/uL Hgb 7.5 L (11.4-16.0) gm/dL Hct 25.3 L (34.0-46.0) % MCHC 29.6 L (31.0-37.0) g/dL RDW 19.0 H (11.5-15.5) % Lymphocytes # 0.5 L (1.0-4.8) k/uL Sodium 134 L (137-145) mmol/L Chloride 90 L (98-107) mmol/L Carbon Dioxide 34 H (22-30) mmol/L BUN 23 H (7-17) mg/dL Creatinine 1.05 H (0.52-1.04) mg/dL POC Glucose (mg/dL) 174 H (70-110) mg/dL Calcium 7.9 L (8.4-10.2) mg/dL Assessment and Plan Assessment: Acute on chronic anemia, status post 3 units packed RBCs, status post EGD reporting blood found in the posterior oropharynx ,no active bleeding;gastroesophageal reflux disease with erosive esophagitis,gastritis, duodenitis, duodenal polyp. Acute on chronic CHF, diastolic dysfunction Acute on chronic hypoxic respiratory failure, secondary to the above Moderate to severe pulmonary hypertension Diabetes mellitus type 2 History of aortic valve replacement, mitral valve replacement and tricuspid valve repair May 2024-[facility] Paroxysmal atrial fibrillation, anticoagulated with Eliquis CAD, history of stent Dual-chamber pacemaker, [facility],11/2017 Hypertension Hyperlipidemia Plan: Continue on current medication regimen ,monitoring and symptomatic treatment. Continue holding Eliquis, colonoscopy scheduled for tomorrow. maintain diuretics. Close monitoring of hemoglobin, renal function with repeat labs ordered for a.m. The impression and plan of care has been dictated as directed. : I performed a history and examination of this patient, discussed the same with the dictator. I agree with the dictator's note ,documented as a scribe. Any additional findings or plans will be noted.
--- NOTE | 2024-10-21 11:08 | P.PN ---
Subjective Progress Note Date: 10/21/24 Lissett remains on hold ,patient is n.p.o., scheduled for EGD today with general surgery. Pending EGD results potential colonoscopy. Hemoglobin decreased to 7.5, platelets 156. Glucose 127, BUN 25, creatinine 1.15, carb 40. Maintaining O2 sats in the 90s on 5 L nasal cannula. Used BiPAP during the night. Denies chest pain, palpitations or increase in shortness of breath. Denies lightheadedness dizziness or focal deficits. Denies abdominal pain. 10/20/2024 hemoglobin remains at 7.5, platelets 159 .status post EGD reporting blood found in the posterior oropharynx, gastroesophageal reflux disease with erosive esophagitis nonbleeding gastritis, nonbleeding duodenitis, duodenal polyp. Scheduled for colonoscopy tomorrow. Positive bowel movement yesterday. Denies nosebleeds, denies nausea, vomiting or diarrhea. Denies abdominal pain. Denies chest pain, palpitations or increased shortness of breath. Denies lightheadedness, dizziness or focal deficits. Bicarb 34, BUN 23, creatinine 1.0 5. Afebrile, normal WBC. 10/21/2024 hemoglobin 7.6, platelets 193 .duodenum, gastric antrum and esophagus biopsies -pathology reporting mild acute duodenitis with focal foveolar metaplasia and submucosal Susan's gland hyperplasia suggestive of peptic duodenitis, minimal chronic gastritis with mucosal reactive changes, Helicobacter pylori organisms not identified, mild chronic esophagitis with rare intramucosal eosinophils consistent with reflux esophagitis. Diuresing well with 24-hour I&O reflecting a negative fluid balance .NPO, Lissett remains on hold, scheduled for colonoscopy. Denies chest pain, palpitations or increase shortness of breath. Maintaining O2 sats in the high 90s to 100% on 4 L nasal cannula. Bicarb 39, BUN 21, creatinine 1.07. Objective - Vital Signs Vital signs: Vital Signs Temp 97.2 F L 10/21/24 04:40 Pulse 61 10/21/24 09:36 Resp 18 10/21/24 09:36 BP 108/54 10/21/24 09:36 Pulse Ox 100 10/21/24 09:36 FiO2 Intake & Output 10/20/24 10/21/24 10/21/24 18:59 06:59 18:59 Intake Total 0 Output Total 600 Balance -600 0 Weight 120.9 kg Intake: Oral 0 Output: Urine 600 Other: Voiding Method Toilet Toilet Toilet External Catheter External Catheter External Catheter # Voids 1 # Bowel Movements 2 - Exam PHYSICAL EXAM: VITAL SIGNS: [Reviewed] GENERAL: Alert and oriented x 3, sitting up in bed, no acute distress HEENT: Conjunctivae normal. eyes normal. NECK: Supple, no JVD. CARDIOVASCULAR: S1, S2 regular. Systolic murmur. RESPIRATION: Unlabored , equal air entry , clear to auscultation. ABDOMEN: Soft, nontender . No guarding. no masses palpable. Positive bowel sounds. LEGS: Trace edema. no clubbing or cyanosis. NERVOUS SYSTEM: Cranial N 2-12 grossly normal.No focal deficits. Strength and sensation grossly intact. Skin: Warm and dry, no rash - Labs CBC & Chem 7: 10/21/24 06:43 10/21/24 06:43 Labs: Abnormal Lab Results - Last 24 Hours (Table) 10/20/24 10/20/24 10/20/24 Range/Units 11:47 16:45 20:05 RBC (3.80-5.40) m/uL Hgb (11.4-16.0) gm/dL Hct (34.0-46.0) % MCH (25.0-35.0) pg MCHC (31.0-37.0) g/dL RDW (11.5-15.5) % Sodium (137-145) mmol/L Chloride (98-107) mmol/L Carbon Dioxide (22-30) mmol/L BUN (7-17) mg/dL Creatinine (0.52-1.04) mg/dL POC Glucose (mg/dL) 174 H 139 H 228 H (70-110) mg/dL Calcium (8.4-10.2) mg/dL 10/21/24 10/21/24 Range/Units 06:43 06:43 RBC 3.06 L (3.80-5.40) m/uL Hgb 7.6 L (11.4-16.0) gm/dL Hct 25.6 L (34.0-46.0) % MCH 24.8 L (25.0-35.0) pg MCHC 29.6 L (31.0-37.0) g/dL RDW 19.1 H (11.5-15.5) % Sodium 134 L (137-145) mmol/L Chloride 89 L (98-107) mmol/L Carbon Dioxide 39 H (22-30) mmol/L BUN 21 H (7-17) mg/dL Creatinine 1.07 H (0.52-1.04) mg/dL POC Glucose (mg/dL) (70-110) mg/dL Calcium 8.0 L (8.4-10.2) mg/dL Assessment and Plan Assessment: Acute on chronic anemia, status post 3 units packed RBCs, status post EGD reporting blood found in the posterior oropharynx ,no active bleeding;gastroesophageal reflux disease with erosive esophagitis,gastritis, duodenitis, duodenal polyp. Acute on chronic CHF, diastolic dysfunction Acute on chronic hypoxic respiratory failure, secondary to the above Moderate to severe pulmonary hypertension Diabetes mellitus type 2 History of aortic valve replacement, mitral valve replacement and tricuspid valve repair May 2024-[facility] Paroxysmal atrial fibrillation, anticoagulated with Eliquis CAD, history of stent Dual-chamber pacemaker, [facility],11/2017 Hypertension Hyperlipidemia Plan: Continue on current medication regimen ,monitoring and symptomatic treatment. NPO, Eliquis remains on hold, colonoscopy pending. close monitoring of hemoglobin, renal function with repeat labs ordered for a.m. The impression and plan of care has been dictated as directed. : I performed a history and examination of this patient, discussed the same with the dictator. I agree with the dictator's note ,documented as a scribe. Any additional findings or plans will be noted.
[2024-10-21 11:35] LABS: Glucose,Whole Blood 113 mg/dL (70-110)
[2024-10-21] MEDS ORDERED: PROPOFOL 10 MG/ML 20 ML VIAL IV ONE (11:57)
[2024-10-21] MEDS: LACTATED RINGERS 1,000 ML IV ONE (12:30)
--- NOTE | 2024-10-21 12:35 | P.PCN ---
Date of Procedure: 10/21/24 Description of Procedure: PREOPERATIVE DIAGNOSIS: Gastrointestinal bleeding Acute blood loss anemia Morbid obesity excess calories, BMI 47.2 POSTOPERATIVE DIAGNOSIS: Tubular adenoma hepatic flexure Tubular adenoma cecum Sigmoid diverticulosis Internal hemorrhoids, grade 2 Melanosis coli OPERATION: Colonoscopy to the ileocecal valve and appendiceal orifice, cecum Colonoscopy with hot snare polypectomy SURGEON: Lorrie Hurtado MD. ANESTHESIA: MAC. INDICATIONS: The patient is an 79-year-old female who presents with acute blood loss anemia including transfusions. Upper endoscopy had been unremarkable. Lower endoscopy was performed for GI bleed. Benefits and risks were described and informed c onsent was obtained. DESCRIPTION OF PROCEDURE: The patient had undergone Nulytely prep with lactulose and milk of magnesia. The patient had been brought into the operating room and laid in the left lateral decubitus position. After adequate intravenous sedation, the rectum was examined with 2% lidocaine jelly. External hemorrhoids were encountered. The rectal tone was within normal limits. No lesions were palpated in the rectal vault. An Olympus colonoscope was advanced until the cecum, ileocecal valve and appendiceal orifice were clearly viewed. The prep was good. Sigmoid diverticulosis was encountered. Colonic polyps were found and removed. No evidence of focal colitis was found. Retroflexion of the scope demonstrated grade 2 internal hemorrhoids without active bleeding or inflammation. The colon was desufflated. The patient had tolerated the procedure well. Withdrawal time was over 6 minutes. FINDINGS: Aronchick preparation quality scale 2 (1-5) Internal hemorrhoids, grade 2 without bleeding External hemorrhoids, grade 2 without bleeding. No arteriovenous malformations. Sigmoid diverticulosis, moderate Redundant sigmoid colon requiring abdominal wall pressure Removal of 3 polyps: - Snare polypectomy cecum, 8 mm tubulovillous adenoma - Snare polypectomy hepatic flexure x 2, 4 - 5 mm flat villous adenoma No focal colitis. RECOMMENDATIONS: Repeat colonoscopy 3 years, 2026 May resume blood thinner 10/24/2024 Plan - Discharge Summary Discharge Rx Participant: No New Discharge Prescriptions: No Action Levothyroxine Sodium [Levoxyl] 175 mcg PO DAILY Isosorbide Mononitrate ER [Imdur] 30 mg PO DAILY FLUoxetine HCL [PROzac] 10 mg PO DAILY Rosuvastatin Calcium [Crestor] 40 mg PO HS Metoprolol Succinate (ER) [Toprol Xl] 50 mg PO DAILY Insulin Glargine,Hum.rec.anlog [Lantus Solostar Pen] 20 - 30 units SQ HS Furosemide [Lasix] 20 mg PO BID Apixaban [Eliquis] 5 mg PO BID Insulin Aspart [NovoLOG Flexpen] 40 units SQ AC-TID Discharge Medication List Levothyroxine Sodium [Levoxyl] 175 mcg PO DAILY 10/25/20 [History] Isosorbide Mononitrate ER [Imdur] 30 mg PO DAILY 01/03/22 [History] Apixaban [Eliquis] 5 mg PO BID 10/08/24 [History] FLUoxetine HCL [PROzac] 10 mg PO DAILY 10/08/24 [History] Furosemide [Lasix] 20 mg PO BID 10/08/24 [History] Insulin Aspart [NovoLOG Flexpen] 40 units SQ AC-TID 10/08/24 [History] Insulin Glargine,Hum.rec.anlog [Lantus Solostar Pen] 20 - 30 units SQ HS 10/08/24 [History] Metoprolol Succinate (ER) [Toprol Xl] 50 mg PO DAILY 10/08/24 [History] Rosuvastatin Calcium [Crestor] 40 mg PO HS 10/08/24 [History] Follow up Appointment(s)/Referral(s): [facility], [NON-STAFF] - Ibrahima Hua MD [Primary Care Provider] - 1-2 days Eber Owens DO [STAFF PHYSICIAN] - 1 Week (Patient has seen Dr. Watson in the past and now would like to switch to Dr. Owens) [employer] [facility] [NON-STAFF] - As Needed ([employer] contact as requested. Please call them for any equipment needs (i.e. information on getting a ramp))
--- NOTE | 2024-10-21 13:50 | P.PN ---
Subjective Progress Note Date: 10/21/24 This is a 79-year-old female patient who is being seen in consultation for metabolic alkalosis. The patient was hospitalized on 10/08/2024 and the patient was in significant volume overload and she was also complaining of some shortness of breath and the patient's chest x-ray showed a left-sided pleural effusion. The patient had previous history of aortic valve placement and mitral valve replacement and tricuspid valve repair patient also has history of coronary artery disease and the patient has undergone previous stenting of the mid LAD and ostial PDA.The patient has a dual-chamber pacemaker insertion. She has paroxysmal atrial fibrillation, diabetes mellitus type 2, hypertension hyperlipidemia. The patient underwent her cardiac surgery at the [facility] back in May of this year. She has been followed by [facility]. She is also known to have obstructive sleep apnea. I have seen her in the sleep center in the past and the patient has been maintained on the BiPAP pressure of 18 over 14 cm of water and she has been quite compliant with treatment. She is also on oxygen and she had progressive worsening in her hypoxemia along with increased shortness of breath. Based on that, the patient came into the hospital. EKG showed a paced rhythm. The chest x-ray showed cardiomegaly and bilateral pleural effusion worse on the left. The patient's hemoglobin was low at 6.2 and dropped down to 5.5. The patient was transfused with a total of 3 units of packed RBC during the current hospitalization the patient's hemoglobin is currently is at 8.2. A repeat echocardiogram was done during this current hospitalization on 10/09/2024 and the patient was found to have a normal LV with an ejection fraction of 6065%, severe pulm hypertension with a PA pressure of 56. The patient had mitral valve replacement with mild mitral stenosis and aortic valve replacement without any valvular abnormalities or regurgitation. No evidence of any pericardial effusion. During this current admission, the patient was subjected to diuresis the patient is currently on Lasix 40 mg IV every 8 hours and the patient is also on Zaroxolyn 5 mg p.o. daily and Aldactone 25 mg p.o. daily. I checked the fluid balance and over the past 4 days, the patient has been in the negative fluid balance of at least 8 L. There has been also steady increase in his serum bicarb. The patient is i nitial bicarb at the time of admission was 28 and currently is up to 42. I obtained a follow-up chest x-ray this morning and it showed overall stable findings consistent with CHF and pulm vessel congestion. There is a small to moderate-sized left-sided pleural effusion along with some adjacent atelectatic change. Hemoglobin is at 8.2 with a white cell count of 6.4 and a platelet count of 127. BUN is 19 with a creatinine of 1.09 and sodium levels at 136 and potassium levels at 3.1. She remains on Levemir insulin 20 units nightly and NovoLog sliding scale coverage. She is also on Toprol 50 mg p.o. twice daily and IV Protonix. She remains on aspirin. On 10/14/2024, the patient is being seen for a follow-up. The patient is doing well. She continues to diurese well. Fluid balance has been -2.5 L over the past 24 hours. Nevertheless, she continues to have significant amount of edema in the abdomen lower extremities involving the thighs. BUN is 18 with a creatinine of 1.22. The patient developed metabolic alkalosis. The serum bicarb was quite elevated and the patient received a total of 2 doses of Diamox and the serum bicarb is down to 37. Meanwhile, the diuretics have been modified and the patient is currently on Lasix 60 mg in the morning and 40 mg in the evening. The patient is also on Zaroxolyn 5 mg p.o. daily and Aldactone 25 mg p.o. daily. The patient is utilizing her BiPAP and once off the BiPAP, she is maintaining herself on oxygen at 5 L/min nasal cannula. No significant shortness of breath. No cough or sputum production. Edema still extensive. On 10/15/2024, the patient is being seen for a follow-up. Doing well. Still has edema lower extremities. Nevertheless, the fluid balance has been -2.5 L over the past 24 hours and if she is producing good urine output. She remains on Lasix 60 mg in the morning and 40 mg in the evenings p.o. and the patient remains on Aldactone 25 mg p.o. daily and Zaroxolyn 5 mg p.o. daily. She is utilizing her BiPAP routinely. No labs are available from today. Nevertheless, the patient is awake and alert and communicating. No other significant events overnight. On 10/16/2024, the patient remains clinically stable. No new complaints. Remains in negative fluid balance. She has developed some metabolic alkalosis with a serum bicarb of 37. BUN is 24 with a creatinine of 1.2. The white cell count is at 7.7 with a hemoglobin of 7.5. Continues to utilize her BiPAP on a regular basis. After BiPAP, she is on 5 L of oxygen nasal cannula. No new complaints. Diuretics include Lasix 60 mg morning and 40 mg the evening and the patient remains on Zaroxolyn and Aldactone. On 10/17/2024, the patient is sitting up in a chair and she is calm and comfortable and she reports improvement in her volume status and edema in lower extremities. She remains negative fluid balance. She continues to be on diu retics, a combination of Lasix, Aldactone and Zaroxolyn. Fluid balance is negative. BUN 25 with a creatinine of 1.1. Sodium levels at 133. No altered mentation. Using BiPAP and once off the BiPAP, the patient is on oxygen at 5 L/min nasal cannula. No cough. No sputum production. No fever or chills. No altered mentation. On 10/18/2024, the patient is being seen for a follow-up. Doing well. No specific complaints. Continues to diurese. Negative fluid balance. Maintain on BiPAP on and off during the day and continuously overnight. While off the BiPAP, the patient is on 5 L with a pulse ox of 99%. Hemoglobin is 8.1. Awaiting EGD and colonoscopy. The BUN is 25 with a creatinine of 1.23 and a serum bicarb is at 39 and sodium levels at 139. Remains on Lasix, Zaroxolyn and Aldactone. The patient is seen today October 19, 2024 in follow-up on the selective care unit. She is currently resting comfortably in bed. Awake and alert in no acute distress. She is maintaining O2 saturations in the 90s on 5 L/min per nasal cannula. She is utilizing BiPAP throughout the evenings and during the day while napping. She did undergo EGD today revealed no evidence of active bleeding. There is gastritis, duodenitis. Erosive esophagitis. White count 6.1. Hemoglobin 7.5. Platelets 156. Sodium 134. Potassium 3.7. Bicarb 40. BUN 25. Creatinine 1.15. Glucose 143. She remains on diuretics. The patient is seen today October 21, 2024 in follow-up on the [facility]. She is currently sitting up in bed. Awake and alert in no acute distress. Maintaining good O2 saturations in the 90s on 5 L/min per nasal cannula. She is utilizing her BiPap at night. Plan is for colonoscopy today. White count 5.5. Hemoglobin 7.6. Platelets 193. Sodium 134. Potassium 3.7. Bicarb 39. BUN 21. Creatinine 1.07. Glucose 95. She has been afebrile. Hemodynamically sta ble. Objective - Vital Signs Vital signs: Vital Signs Temp 97.2 F L 10/21/24 04:40 Pulse 61 10/21/24 09:36 Resp 18 10/21/24 09:36 BP 108/54 10/21/24 09:36 Pulse Ox 100 10/21/24 09:36 FiO2 Intake & Output 10/20/24 10/21/24 10/21/24 18:59 06:59 18:59 Intake Total 100 Output Total 600 Balance -600 100 Weight 120.9 kg Intake: IV 100 Oral 0 Output: Urine 600 Other: Voiding Method Toilet Toilet Toilet External Catheter External Catheter External Catheter # Voids 1 # Bowel Movements 2 - Exam GENERAL EXAM: Alert, obese 79-year-old female, sitting up in bed, on 5 L nasal cannula, comfortable in no apparent distress. HEAD: Normocephalic. EYES: Normal reaction of pupils, equal size. NOSE: Clear with pink turbinates. THROAT: No erythema or exudates. NECK: No masses, no JVD. CHEST: No chest wall deformity. LUNGS: Equal air entry with no crackles, wheeze, rhonchi or dullness. CVS: S1 and S2 normal with no audible murmur, regular rhythm. ABDOMEN: No hepatosplenomegaly, normal bowel sounds, no guarding or rigidity. SPINE: No scoliosis or deformity SKIN: No rashes CENTRAL NERVOUS SYSTEM: No focal deficits, tone is normal in all 4 extremities. EXTREMITIES: There is no peripheral edema. No clubbing, no cyanosis. Peripheral pulses are intact. - Labs CBC & Chem 7: 10/21/24 06:43 10/21/24 06:43 Labs: Abnormal Lab Results - Last 24 Hours (Table) 10/20/24 10/20/24 10/21/24 Range/Units 16:45 20:05 06:43 RBC 3.06 L (3.80-5.40) m/uL Hgb 7.6 L (11.4-16.0) gm/dL Hct 25.6 L (34.0-46.0) % MCH 24.8 L (25.0-35.0) pg MCHC 29.6 L (31.0-37.0) g/dL RDW 19.1 H (11.5-15.5) % Sodium (137-145) mmol/L Chloride (98-107) mmol/L Carbon Dioxide (22-30) mmol/L BUN (7-17) mg/dL Creatinine (0.52-1.04) mg/dL POC Glucose (mg/dL) 139 H 228 H (70-110) mg/dL Calcium (8.4-10.2) mg/dL 10/21/24 10/21/24 Range/Units 06:43 11:32 RBC (3.80-5.40) m/uL Hgb (11.4-16.0) gm/dL Hct (34.0-46.0) % MCH (25.0-35.0) pg MCHC (31.0-37.0) g/dL RDW (11.5-15.5) % Sodium 134 L (137-145) mmol/L Chloride 89 L (98-107) mmol/L Carbon Dioxide 39 H (22-30) mmol/L BUN 21 H (7-17) mg/dL Creatinine 1.07 H (0.52-1.04) mg/dL POC Glucose (mg/dL) 113 H (70-110) mg/dL Calcium 8.0 L (8.4-10.2) mg/dL Assessment and Plan Assessment: Acute on chronic dyspnea with signs of decompensated heart failure essentially due to diastolic heart failure and valvular heart disease. The patient had significant volume overload at time of admission and the patient has been diuresed with IV Lasix and she is currently on a combination of p.o. Lasix, Zaroxolyn and Aldactone. The patient maintains a negative fluid balance Acute on chronic hypoxic respiratory failure, currently on 5 L of oxygen by nasal cannula Obstructive sleep apnea maintained on BiPAP pressure of 18/14 cm of water, utilizing her on device from home Acute on chronic anemia, s/p transfusion with a total of 3 units of packed RBC. Hemoglobin is at 7.6. EGD today October 19, 2024 revealed no active bleeding. Plan is for colonoscopy today History of valvular heart disease and the patient is status post aortic valve replacement, mitral valve replacement and tricuspid valve repair in May 2024 performed at [facility] Dual-chamber pacemaker insertion, November 2017 Paroxysmal A-fib maintained on anticoagulation with Eliquis Coronary artery disease with previous coronary stenting of the LAD and ostial PDA Diabetes mellitus type 2 Hyperlipidemia Hypertension Severe pulmonary hypertension, group 2 Plan: The patient was seen and evaluated Labs and medications reviewed Current hemoglobin 7.6 Titrate down the FiO2 as tolerated Plan is for colonoscopy today We will continue to follow I have personally seen and examined the patient, performed the documentation and the assessment and plan as written. Number of minutes spent on the visit: 10 Dictation was produced using G3 dictation software. Please excuse any grammatical, word or spelling errors.
--- NOTE | 2024-10-21 15:18 | P.PN ---
Subjective Progress Note Date: 10/21/24 HISTORY OF PRESENT ILLNESS: This is a 79-year-old female patient of Dr. 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 We have been asked to evaluate the patient for CHF. Patient presented to the emergency center due to severe weakness and shortness of breath. Patient underwent aortic valve replacement, mitral valve replacement and tricuspid valve repair at [facility] in May of this year. She has had follow-up with Dr. Watson with complaints of continued limited physical activity, dyspnea and peripheral edema and fatigue. She has not felt any real improvement of her symptoms since she had her surgery and is disappointed about that. She denies having any chest pain or chest pressure. Her shortness of breath seems to be worsening and she has had significantly worse edema extending into her abdomen. She apparently has also been started on home oxygen which she is increased to 7 L. Regarding anemia, patient did receive 3 to 4 units after her surgery in May and she has h ad follow-up lab work done in July with her PCP and she was not contacted about any abnormality at that time. Also, patient is not eating or drinking very much. She states she has no appetite and has lost her sense of taste since the surgery. She denies any abdominal pain. Daughter states that she has had a distended abdomen for few weeks that waxes and wanes. Patient states her stools are very dark but not black. She has not been on iron at home. She has been taking baby aspirin and Eliquis although aspirin is not listed on her home medication list. She denies any vaginal bleeding. Blood pressure 116/60, heart rate 100, pulse ox 99% on CPAP. Patient is seen today in the emergency center waiting for a bed on the cardiac stepdown unit. Eliquis has been placed on hold. Patient has been seen by GI with plan for EGD tomorrow if cleared by cardiology. -EKG: Atrial paced rhythm -Chest x-ray: Cardiomegaly, pulmonary vascular congestion and bilateral pleural effusions. -Laboratory studies: Hemoglobin initially 6.2 now 5.5. Sodium 134, BUN 32 and creatinine 0.91. Hemoglobin A1c 7.5. Troponin 0.065, 0.052, 0.048. proBNP 2830. -Home cardiac medications: Eliquis 5 mg twice daily, Lasix 20 mg twice daily, Imdur 30 mg daily, Toprol-XL 50 mg daily, Crestor 40 mg at bedtime, also on levothyroxine 175 mcg daily. -Echocardiogram performed 05/24/2024 revealed normal EF, prosthetic AV, prosthetic MV, TV repair. -Cardiovascular surgery 05/20/2024: Tissue AVR, tissue MVR, TV repair -Previous CV surgery 11/06/2018: TAVR. -Cardiac catheterization 2020 with stent placed in the mid D1, stent in the ostial PDA. 10/12/2024 Patient examined this morning at the bedside. Patient currently denies chest pain or pressure. She denies shortness of breath. She continues to have significant lower extremity edema. Patient is feeling ember at the bedside also reports she has a lot of swelling around her abdomen which is not normal for her. Echocardiogram completed revealing ejection fraction 60 to 65%, status post mitral valve replacement, mild mitral stenosis, mean gradient 6 mmHg, aortic valve replacement with no perivalvular aortic regurgitation, moderate to severe pulmonary hypertension. Hemoglobin today 8.1. Telemetry reveals paced rhythm at 60. 10/13/2024 Patient examined this morning at the bedside. Patient is currently sitting up in the chair. Patient currently denies chest pain or pressure. She denies shortness of breath. She remains on IV diuretics. She continues to have lower extremity edema. CO2 42 today. She has been started on Diamox per pulmonary medicine. blood pressure 118/63. BUN 19. Creatinine 1.04. Hemoglobin today 8.2. Eliquis remains on hold. Telemetry reveals paced rhythm. 10/14/2024 Patient examined this morning the bedside. Patient denies having any chest pain or pressure. She denies shortness of breath. Remains on IV Lasix. Patient CO2 improved today. She was given Diamox x 2 doses yesterday per pulmonary medicine. She continues to have lower extremity edema although improving. Telemetry reveals paced rhythm. 10/15/2024 Patient examined this morning at the bedside. Patient on CPAP at the time of examination. She denies chest pain or pressure. She denies shortness of breath. She has been transitioned to oral Lasix. 10/16/2024 Patient examined this morning at the bedside. Patient currently denies chest pain or pressure. She denies shortness of breath. She remains on oral diuretics. Creatinine today 1.23. Patient's lower extremity edema is slowly improving. Hemoglobin stable at 7.9. Her Eliquis remains on hold. 10/17/2024 Patient examined this morning. She is sitting up in the chair. Patient currently denies chest pain or pressure. She denies shortness of breath. She remains on oral diuretics. Creatinine today 1.19. It was noted that the patient was eating Pringles yesterday plan evaluation. Patient was once again educated on low-sodium diet. She verbalized understanding. 10/18/2024 Patient examined this morning at the bedside. Patient currently denies chest pain or pressure. She denies shortness of breath. She remains on oral diuretics. Creatinine stable at 1.23. Hemoglobin stable at 8.1. Her Eliquis remains on hold. 10/19/24 Patient seen and examined. Patient is scheduled for EGD today with general surgery. Lissett remains on hold and family member asking about this. Lissett will remain on hold until cleared by the general surgery. She is currently on CPAP. Blood pressure 107/55, heart rate in the 60s, pulse ox 97%. Repeat blood work reveals hemoglobin 7.5, BUN 25 creatinine 1.15. 10/20/2024 Patient seen and examined. Yesterday she underwent EGD that did not find source of bleeding. She is now scheduled for colonoscopy tomorrow. Lissett remains on hold until cleared by general surgery. She states she is feeling well today. No chest pain and no shortness of breath. Blood pressure 115/70, heart rate 63, pulse ox 99% on 5 L nasal cannula. Repeat blood work reveals hemoglobin 7.5, BUN 23 and creatinine 1.05. 10/21/2024 Patient seen and examined. Patient is scheduled for colonoscopy today with Dr. Hurtado. She denies have any chest pain or shortness of breath. Heart rates are in the 60s, blood pressure 108/54, pulse ox 100% on room air. Repeat blood work reveals hemoglobin 7.6, BUN 21 creatinine 1.07. PHYSICAL EXAM: VITAL SIGNS: Reviewed. GENERAL: Well-developed in no acute distress. NECK: Supple. No JVD or thyro, BUN 23 creatinine 1.05.megaly LUNGS: Respirations even and unlabored. Lungs essentially clear to auscultation bilaterally. HEART: Regular rate and rhythm. S1 and S2 heard. Systolic murmur noted. EXTREMITIES: Normal range of motion. No clubbing or cyanosis. Peripheral pulses intact. 1-2+ pitting bilateral lower extremity edema, improving ASSESSMENT: Acute on chronic diastolic heart failure Severe anemia, status post RBC transfusion, status post EGD and colonoscopy is scheduled for tomorrow Probable acute blood loss anemia secondary to acute on chronic GI bleed History of aortic valve replacement, mitral valve replacement, tricuspid valve repair May 2024 at [facility] Coronary artery disease with prior stenting Dual-chamber pacemaker, [facility] [employer], November 2017 Paroxysmal atrial fibrillation on Eliquis Hyperlipidemia Diabetes mellitus type 2 Hypertension Moderate to severe pulmonary hypertension PLAN: Continue to monitor hemoglobin. Eliquis remains on hold. Resume Eliquis once cleared by general surgery. Continue aspirin 81 mg daily for now. Continue oral Lasix 60 mg in the morning and 40 mg in the afternoon Continue patient on statin, Toprol XL 50 mg twice daily and Aldactone 25 mg daily Further recommendations pending patient course Nurse practitioner note has been reviewed by physician. Signing provider agrees with the documented findings, assessment, and plan of care documented by LANDSCAPE DRAFTER as a scribe. Objective - Vital Signs Vital signs: Vital Signs Temp 97.2 F L 10/21/24 04:40 Pulse 61 10/21/24 09:36 Resp 18 10/21/24 09:36 BP 108/54 10/21/24 09:36 Pulse Ox 100 10/21/24 09:36 FiO2 Intake & Output 10/20/24 10/21/24 10/21/24 18:59 06:59 18:59 Intake Total 0 Output Total 600 Balance -600 0 Weight 120.9 kg Intake: Oral 0 Output: Urine 600 Other: Voiding Method Toilet Toilet Toilet External Catheter External Catheter External Catheter # Voids 1 # Bowel Movements 2 - Labs CBC & Chem 7: 10/21/24 06:43 10/21/24 06:43 Labs: Abnormal Lab Results - Last 24 Hours (Table) 10/20/24 10/20/24 10/20/24 Range/Units 11:47 16:45 20:05 RBC (3.80-5.40) m/uL Hgb (11.4-16.0) gm/dL Hct (34.0-46.0) % MCH (25.0-35.0) pg MCHC (31.0-37.0) g/dL RDW (11.5-15.5) % Sodium (137-145) mmol/L Chloride (98-107) mmol/L Carbon Dioxide (22-30) mmol/L BUN (7-17) mg/dL Creatinine (0.52-1.04) mg/dL POC Glucose (mg/dL) 174 H 139 H 228 H (70-110) mg/dL Calcium (8.4-10.2) mg/dL 10/21/24 10/21/24 Range/Units 06:43 06:43 RBC 3.06 L (3.80-5.40) m/uL Hgb 7.6 L (11.4-16.0) gm/dL Hct 25.6 L (34.0-46.0) % MCH 24.8 L (25.0-35.0) pg MCHC 29.6 L (31.0-37.0) g/dL RDW 19.1 H (11.5-15.5) % Sodium 134 L (137-145) mmol/L Chloride 89 L (98-107) mmol/L Carbon Dioxide 39 H (22-30) mmol/L BUN 21 H (7-17) mg/dL Creatinine 1.07 H (0.52-1.04) mg/dL POC Glucose (mg/dL) (70-110) mg/dL Calcium 8.0 L (8.4-10.2) mg/dL
[2024-10-21 16:32] LABS: Glucose,Whole Blood 164 mg/dL (70-110)
[2024-10-21 20:06] LABS: Glucose,Whole Blood 204 mg/dL (70-110)
[2024-10-22 05:40] LABS: Glucose,Whole Blood 178 mg/dL (70-110)
[2024-10-22 07:12] LABS: Anisocytosis Slight; Basophils % (A) 1 %; Eosinophils # (A) 0.2 k/uL (0-0.7); Eosinophils % (A) 3 %; HCT 24.2 % (34.0-46.0); HGB 7.2 gm/dL (11.4-16.0); Hypochromasia Marked; Lymphocytes # (A) 0.6 k/uL (1.0-4.8); Lymphocytes % (A) 10 %; MCH 24.9 pg (25.0-35.0); MCHC 29.8 g/dL (31.0-37.0); MCV 83.8 fL (80.0-100.0); Mean Platelet Volume 6.7; Microcytosis Slight; Monocytes # (A) 0.4 k/uL (0-1.0); Monocytes % (A) 7 %; Neutrophils # (A) 4.6 k/uL (1.3-7.7); Neutrophils % (A) 78 %; Platelet Count 170 k/uL (150-450); Poikilocytosis Slight; RBC 2.89 m/uL (3.80-5.40); RDW 19.3 % (11.5-15.5); WBC 5.9 k/uL (3.8-10.6)
[2024-10-22 07:34] LABS: African American GFR (CKD) 50 (>60 ml/min/1.73 sqM); Blood Urea Nitrogen 20 mg/dL (7-17); Chloride 90 mmol/L (98-107); Glucose 141 mg/dL (74-99); Non-African American GFR(CKD) 43 (>60 ml/min/1.73 sqM); Potassium 3.9 mmol/L (3.5-5.1); Sodium 136 mmol/L (137-145)
[2024-10-22 07:40] LABS: Anion Gap 9 mmol/L; Carbon Dioxide 37 mmol/L (22-30)
--- NOTE | 2024-10-22 11:23 | P.DS ---
Providers Date of admission: 10/08/24 19:50 Expected date of discharge: 10/22/24 Attending physician: Ibrahima Hua MD Consults: 10/08/24 19:48 Consult Physician Routine Consulting Provider: Caitie Watson Consult Reason/Comments: chf Do you want consulting provider notified?: Yes Consult Physician Routine Consulting Provider: Little Allen Consult Reason/Comments: anemia Do you want consulting provider notified?: Yes 10/13/24 08:45 Consult Physician Routine Consulting Provider: Mehrdad Evans Consult Reason/Comments: hypercapnia Do you want consulting provider notified?: Yes 10/18/24 14:19 Consult Physician Routine Consulting Provider: Lorrie Hurtado Consult Reason/Comments: amenia/GI Bleed EGD/Colonscopy? Do you want consulting provider notified?: Yes Primary care physician: Ibrahima Hua MD Hospital Course: Acute on chronic anemia, status post 4 units packed RBCs, status post EGD reporting blood found in the posterior oropharynx ,no active bleed ing;gastroesophageal reflux disease with erosive esophagitis,gastritis, duodenitis, duodenal polyp. Status post colonoscopy reporting nonbleeding internal and external hemorrhoids, no AV malformation, moderate sigmoid diverticulosis, removal of 3 polyps, no focal colitis. Acute on chronic CHF, diastolic dysfunction Acute on chronic hypoxic respiratory failure, secondary to the above Moderate to severe pulmonary hypertension Diabetes mellitus type 2 History of aortic valve replacement, mitral valve replacement and tricuspid valve repair May 2024-[facility] Paroxysmal atrial fibrillation, anticoagulated with Eliquis CAD, history of stent Dual-chamber pacemaker, [facility],11/2017 Hypertension Hyperlipidemia Morbid obesity, BMI 47 Hospital course:Eliquis remains on hold ,patient is n.p.o., scheduled for EGD today with general surgery. Pending EGD results potential colonoscopy. Hemoglobin decreased to 7.5, platelets 156. Glucose 127, BUN 25, creatinine 1.15, carb 40. Maintaining O2 sats in the 90s on 5 L nasal cannula. Used BiPAP during the night. Denies chest pain, palpitations or increase in shortness of breath. Denies lightheadedness dizziness or focal deficits. Denies abdominal pain. 10/20/2024 hemoglobin remains at 7.5, platelets 159 .status post EGD reporting blood found in the posterior oropharynx, gastroesophageal reflux disease with erosive esophagitis nonbleeding gastritis, nonbleeding duodenitis, duodenal polyp. Scheduled for colonoscopy tomorrow. Positive bowel movement yesterday. Denies nosebleeds, denies nausea, vomiting or diarrhea. Denies abdominal pain. Denies chest pain, palpitations or increased shortness of breath. Denies lightheadedness, dizziness or focal deficits. Bicarb 34, BUN 23, creatinine 1.05. Afebrile, normal WBC. 10/21/2024 hemoglobin 7.6, platelets 193 .duodenum, gastric antrum and esophagus biopsies -pathology reporting mild acute duodenitis with focal foveolar metaplasia and submucosal Susan's gland hyperplasia suggestive of peptic duodenitis, minimal chronic gastritis with mucosal reactive changes, Helicobacter pylori organisms not identified, mild chronic esophagitis with rare intramucosal eosinophils consistent with reflux esophagitis. Diuresing well with 24-hour I&O reflecting a negative fluid balance .NPO, Eliquis remains on hold, scheduled for colonoscopy. Denies chest pain, palpitations or increase shortness of breath. Maintaining O2 sats in the high 90s to 100% on 4 L nasal cannula. Bicarb 39, BUN 21, creatinine 1.07. Completed colonoscopy yesterday, reporting nonbleeding internal and external hemorrhoids, no AV malformation, moderate sigmoid diverticulosis, removal of 3 polyps, no focal colitis. Patient received clearance for discharge and clearance to resume blood thinner on 10/24/2024 per general surgery. Patient has been instructed to resume Eliquis 2 days prior to follow-up with PCP next week. Close monitoring of hemoglobin, will recheck in 3 days and at PCPs office. patient also has been scheduled for capsule study with Dr. Little Palacios/GI on 10/29/2024, out patient, as there is no inpatient GI services currently. Denies bleeding. Denies dark stools. Denies nausea, vomiting or abdominal pain. Hemoglobin 7.2, receiving 1 unit of packed RBCs prior to discharge. cleared by cardiology for discharge , recommending current medication regimen with Lasix decreased to 40 twice daily. Denies chest pain, palpitations or increase in shortness of breath. Patient will be discharged home in a stable condition with guarded prognosis. The impression and plan of care has been dictated as directed. : I performed a history and examination of this patient, discussed the same with the dictator. I agree with the dictator's note ,documented as a scribe. Any additional findings or plans will be noted. Patient Condition at Discharge: Stable Plan - Discharge Summary Discharge Rx Participant: No New Discharge Prescriptions: New Spironolactone [Aldactone] 25 mg PO DAILY #30 tab Pantoprazole Sodium [Protonix] 40 mg PO DAILY #30 tab Sennosides [Senokot] 8.6 mg PO DAILY PRN tab PRN Reason: Constipation Aspirin 81 mg PO DAILY tab Lactulose [Cephulac] 30 gm PO BID #900 ml Furosemide [Lasix] 40 mg PO BID #60 tab Metoprolol Succinate (ER) [Toprol XL] 50 mg PO BID #60 tab metOLazone [Zaroxolyn] 5 mg PO DAILY #30 tab Continue Levothyroxine Sodium [Levoxyl] 175 mcg PO DAILY Apixaban [Eliquis] 5 mg PO BID #0 FLUoxetine HCL [PROzac] 10 mg PO DAILY Rosuvastatin Calcium [Crestor] 40 mg PO HS Insulin Glargine,Hum.rec.anlog [Lantus Solostar Pen] 20 - 30 units SQ HS Furosemide [Lasix] 20 mg PO BID Insulin Aspart [NovoLOG Flexpen] 40 units SQ AC-TID Discontinued Isosorbide Mononitrate ER [Imdur] 30 mg PO DAILY Metoprolol Succinate (ER) [Toprol XL] 50 mg PO DAILY Discharge Medication List Levothyroxine Sodium [Levoxyl] 175 mcg PO DAILY 10/25/20 [History] FLUoxetine HCL [PROzac] 10 mg PO DAILY 10/08/24 [History] Furosemide [Lasix] 20 mg PO BID 10/08/24 [History] Insulin Aspart [NovoLOG Flexpen] 40 units SQ AC-TID 10/08/24 [History] Insulin Glargine,Hum.rec.anlog [Lantus Solostar Pen] 20 - 30 units SQ HS 10/08/24 [History] Rosuvastatin Calcium [Crestor] 40 mg PO HS 10/08/24 [History] Apixaban [Eliquis] 5 mg PO BID #0 10/22/24 [Rx] Aspirin 81 mg PO DAILY tab 10/22/24 [Rx] Furosemide [Lasix] 40 mg PO BID #60 tab 10/22/24 [Rx] Lactulose [Cephulac] 30 gm PO BID #900 ml 10/22/24 [Rx] Metoprolol Succinate (ER) [Toprol XL] 50 mg PO BID #60 tab 10/22/24 [Rx] Pantoprazole Sodium [Protonix] 40 mg PO DAILY #30 tab 10/22/24 [Rx] Sennosides [Senokot] 8.6 mg PO DAILY PRN tab 10/22/24 [Rx] Spironolactone [Aldactone] 25 mg PO DAILY #30 tab 10/22/24 [Rx] metOLazone [Zaroxolyn] 5 mg PO DAILY #30 tab 10/22/24 [Rx] Follow up Appointment(s)/Referral(s): [facility], [NON-STAFF] - Caitie Watson MD [STAFF PHYSICIAN] - 1 Week Ibrahima Hua MD [Primary Care Provider] - 10/26/24 Little Allen MD [STAFF PHYSICIAN] - 10/29/24 (Capsule study.) [employer] [NON-STAFF] - As Needed ([employer] contact as requested. Please call them for any equipment needs (i.e. information on getting a ramp)) Ambulatory/Diagnostic Orders: Complete Blood Count w/diff [LAB.AMB] Time Frame: 3 Days, Location: None Selected Activity/Diet/Wound Care/Special Instructions: Patient has been instructed to resume Eliquis 2 days before confirmed appointment with PCP early next week. Please schedule patient for appointment for earlier in the week next week, preferably Saturday or Saturday prior to discharge.
[2024-10-22 11:27] LABS: Glucose,Whole Blood 193 mg/dL (70-110)
--- NOTE | 2024-10-22 13:24 | P.PN ---
Subjective Progress Note Date: 10/22/24 CHIEF COMPLAINT: GI bleed HISTORY OF PRESENT ILLNESS: Surgical service following regards to patient's GI bleed. Patient is status post colonoscopy with findings of a tubular adenoma at the hepatic flexure and cecum, sigmoid diverticulosis, internal hemorrhoids and melanosis coli. Patient has had no further bleeding. Denies any abdominal pain. Hemoglobin is 7.2 she is receiving a unit of blood. They are planning discharge today. Patient denies any abdominal pain. PHYSICAL EXAM: VITAL SIGNS: Reviewed GENERAL: Well-developed in no acute distress. HEENT: No sclera icterus. Extraocular movements grossly intact. Moist buccal mucosa. Head is atraumatic, normocephalic. Hears conversational speech. No nasal drainage. NECK: Supple without lymphadenopathy. CHEST: Non-labored respirations and equal bilateral excursions. CARDIOVASCULAR: Palpable 2+ radial pulses. ABDOMEN: Soft. Nondistended. Nontender. MUSCULOSKELETAL: No clubbing or cyanosis. NEUROLOGIC: No focal or lateralizing signs. Cranial nerves II through XII grossly intact. PSYCH: Appropriate affect. Alert and oriented to person, place and time. SKIN: Well perfused. Good skin turgor. ASSESSMENT: 1. Gastrointestinal bleed 2. Status post blood transfusion 3. Congestive heart failure with diastolic dysfunction 4. History of triple valve replacement 5. Acute blood loss anemia PLAN: -Recommend to hold anticoagulation until 10/24/2024 -Recommend patient follow-up with GI service for capsule endoscopy -Recommend that patient follows up with her motorized squad lieutenant out of [facility] where she has had her heart valve surgery -Patient can be discharge from surgical standpoint Physician [employer] Supervisor note has been reviewed by physician. Signing provider agrees with the documented findings, assessment, and plan of care. As above. Please see additional documentation below. CHIEF COMPLAINT: GI bleed HISTORY OF PRESENT ILLNESS: The patient is a 79-year-old female with GI bleed of unclear etiology. Both upper and lower endoscopy were completed. No visible signs of bleeding. Additionally, patient has pre-existing history of triple valvular replacement requiring anticoagulant therapy. Extended time off of blood thinners is encouraged due to recent colonoscopy polypectomy. ROS: No reports of nausea and vomiting. No bowel movements. No fevers or chills. No new chest pain. No productive sputum PHYSICAL EXAM: VITAL SIGNS: Reviewed CONSTITUTIONAL: Well developed and in no acute distress. EYES: Conjuctivae without sclera icterus. Extraocular movements grossly intact. HEAD, EARS, NOSE, THROAT: Moist buccal mucosa. Head is atraumatic, normocephalic. Hears conversational speech. No nasal drainage. RESPIRATORY: Non-labored respirations and equal bilateral excursions. CARDIOVASCULAR: Palpable 2+ radial pulses. ABDOMEN: Obese. Nontender. MUSCULOSKELETAL: No gross deformity of the lower extremities noted. No clubbing. No cyanosis. SKIN: Good skin turgor. Well perfused. NEUROLOGIC: Cranial nerves II through XII grossly intact. No focal or lateralizing signs. PSYCH: Appropriate affect. Alert and oriented to person, place and time. CLINICAL LABS: Reviewed. Hemoglobin down 8.1-7.5, today 7.2, anemia. ASSESSMENT: 1. Gastrointestinal bleed 2. Status post blood transfusion 3. Congestive heart failure with diastolic dysfunction 4. History of triple valve replacement 5. Acute blood loss anemia 6. Obesity due to excess calories, BMI 43.1 7. Chronic anticoagulant use PLAN: 1. Diet as tolerated. 2. Continue of blood thinners due to recent colonoscopy. 3. Due to patient's complicated cardiac history of recent valvular replacement do recommend follow-up at [facility] regarding management of prolonged anticoagulation due to recent anemia 4. Additionally, as both upper and lower endoscopy did not demonstrate acute bleeding, capsule endoscopy may be of benefit as outpatient. Objective - Vital Signs Vital signs: Vital Signs Temp 97.3 F L 10/22/24 08:55 Pulse 67 10/22/24 08:55 Resp 20 10/22/24 08:55 BP 112/56 10/22/24 08:55 Pulse Ox 98 10/22/24 08:55 FiO2 Intake & Output 10/21/24 10/22/24 10/22/24 18:59 06:59 18:59 Intake Total 336 150 Output Total 400 Balance 336 -400 150 Weight 120.7 kg Intake: IV 100 Oral 236 150 Output: Urine 400 Other: Voiding Method Toilet Toilet Toilet External Catheter # Voids 2 - Labs CBC & Chem 7: 10/29/24 11:25 10/28/24 09:29 Labs: Abnormal Lab Results - Last 24 Hours (Table) 10/21/24 10/21/24 10/22/24 Range/Units 16:29 20:01 05:38 RBC (3.80-5.40) m/uL Hgb (11.4-16.0) gm/dL Hct (34.0-46.0) % MCH (25.0-35.0) pg MCHC (31.0-37.0) g/dL RDW (11.5-15.5) % Lymphocytes # (1.0-4.8) k/uL Sodium (137-145) mmol/L Chloride (98-107) mmol/L Carbon Dioxide (22-30) mmol/L BUN (7-17) mg/dL Creatinine (0.52-1.04) mg/dL Glucose (74-99) mg/dL POC Glucose (mg/dL) 164 H 204 H 178 H (70-110) mg/dL Calcium (8.4-10.2) mg/dL Crossmatch 10/22/24 10/22/24 10/22/24 Range/Units 06:43 06:43 10:55 RBC 2.89 L (3.80-5.40) m/uL Hgb 7.2 L (11.4-16.0) gm/dL Hct 24.2 L (34.0-46.0) % MCH 24.9 L (25.0-35.0) pg MCHC 29.8 L (31.0-37.0) g/dL RDW 19.3 H (11.5-15.5) % Lymphocytes # 0.6 L (1.0-4.8) k/uL Sodium 136 L (137-145) mmol/L Chloride 90 L (98-107) mmol/L Carbon Dioxide 37 H (22-30) mmol/L BUN 20 H (7-17) mg/dL Creatinine 1.21 H (0.52-1.04) mg/dL Glucose 141 H (74-99) mg/dL POC Glucose (mg/dL) (70-110) mg/dL Calcium 8.0 L (8.4-10.2) mg/dL Crossmatch See Detail 10/22/24 Range/Units 11:25 RBC (3.80-5.40) m/uL Hgb (11.4-16.0) gm/dL Hct (34.0-46.0) % MCH (25.0-35.0) pg MCHC (31.0-37.0) g/dL RDW (11.5-15.5) % Lymphocytes # (1.0-4.8) k/uL Sodium (137-145) mmol/L Chloride (98-107) mmol/L Carbon Dioxide (22-30) mmol/L BUN (7-17) mg/dL Creatinine (0.52-1.04) mg/dL Glucose (74-99) mg/dL POC Glucose (mg/dL) 193 H (70-110) mg/dL Calcium (8.4-10.2) mg/dL Crossmatch
--- NOTE | 2024-10-22 13:35 | P.PN ---
Subjective Progress Note Date: 10/22/24 HISTORY OF PRESENT ILLNESS: This is a 79-year-old female patient of Dr. 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 We have been asked to evaluate the patient for CHF. Patient presented to the emergency center due to severe weakness and shortness of breath. Patient underwent aortic valve replacement, mitral valve replacement and tricuspid valve repair at [facility] in May of this year. She has had follow-up with Dr. Watson with complaints of continued limited physical activity, dyspnea and peripheral edema and fatigue. She has not felt any real improvement of her symptoms since she had her surgery and is disappointed about that. She denies having any chest pain or chest pressure. Her shortness of breath seems to be worsening and she has had significantly worse edema extending into her abdomen. She apparently has also been started on home oxygen which she is increased to 7 L. Regarding anemia, patient did receive 3 to 4 units after her surgery in May and she has h ad follow-up lab work done in July with her PCP and she was not contacted about any abnormality at that time. Also, patient is not eating or drinking very much. She states she has no appetite and has lost her sense of taste since the surgery. She denies any abdominal pain. Daughter states that she has had a distended abdomen for few weeks that waxes and wanes. Patient states her stools are very dark but not black. She has not been on iron at home. She has been taking baby aspirin and Eliquis although aspirin is not listed on her home medication list. She denies any vaginal bleeding. Blood pressure 116/60, heart rate 100, pulse ox 99% on CPAP. Patient is seen today in the emergency center waiting for a bed on the cardiac stepdown unit. Eliquis has been placed on hold. Patient has been seen by GI with plan for EGD tomorrow if cleared by cardiology. -EKG: Atrial paced rhythm -Chest x-ray: Cardiomegaly, pulmonary vascular congestion and bilateral pleural effusions. -Laboratory studies: Hemoglobin initially 6.2 now 5.5. Sodium 134, BUN 32 and creatinine 0.91. Hemoglobin A1c 7.5. Troponin 0.065, 0.052, 0.048. proBNP 2830. -Home cardiac medications: Eliquis 5 mg twice daily, Lasix 20 mg twice daily, Imdur 30 mg daily, Toprol-XL 50 mg daily, Crestor 40 mg at bedtime, also on levothyroxine 175 mcg daily. -Echocardiogram performed 05/24/2024 revealed normal EF, prosthetic AV, prosthetic MV, TV repair. -Cardiovascular surgery 05/20/2024: Tissue AVR, tissue MVR, TV repair -Previous CV surgery 11/06/2018: TAVR. -Cardiac catheterization 2020 with stent placed in the mid D1, stent in the ostial PDA. 10/12/2024 Patient examined this morning at the bedside. Patient currently denies chest pain or pressure. She denies shortness of breath. She continues to have significant lower extremity edema. Patient is feeling ember at the bedside also reports she has a lot of swelling around her abdomen which is not normal for her. Echocardiogram completed revealing ejection fraction 60 to 65%, status post mitral valve replacement, mild mitral stenosis, mean gradient 6 mmHg, aortic valve replacement with no perivalvular aortic regurgitation, moderate to severe pulmonary hypertension. Hemoglobin today 8.1. Telemetry reveals paced rhythm at 60. 10/13/2024 Patient examined this morning at the bedside. Patient is currently sitting up in the chair. Patient currently denies chest pain or pressure. She denies shortness of breath. She remains on IV diuretics. She continues to have lower extremity edema. CO2 42 today. She has been started on Diamox per pulmonary medicine. blood pressure 118/63. BUN 19. Creatinine 1.04. Hemoglobin today 8.2. Eliquis remains on hold. Telemetry reveals paced rhythm. 10/14/2024 Patient examined this morning the bedside. Patient denies having any chest pain or pressure. She denies shortness of breath. Remains on IV Lasix. Patient CO2 improved today. She was given Diamox x 2 doses yesterday per pulmonary medicine. She continues to have lower extremity edema although improving. Telemetry reveals paced rhythm. 10/15/2024 Patient examined this morning at the bedside. Patient on CPAP at the time of examination. She denies chest pain or pressure. She denies shortness of breath. She has been transitioned to oral Lasix. 10/16/2024 Patient examined this morning at the bedside. Patient currently denies chest pain or pressure. She denies shortness of breath. She remains on oral diuretics. Creatinine today 1.23. Patient's lower extremity edema is slowly improving. Hemoglobin stable at 7.9. Her Eliquis remains on hold. 10/17/2024 Patient examined this morning. She is sitting up in the chair. Patient currently denies chest pain or pressure. She denies shortness of breath. She remains on oral diuretics. Creatinine today 1.19. It was noted that the patient was eating Pringles yesterday plan evaluation. Patient was once again educated on low-sodium diet. She verbalized understanding. 10/18/2024 Patient examined this morning at the bedside. Patient currently denies chest pain or pressure. She denies shortness of breath. She remains on oral diuretics. Creatinine stable at 1.23. Hemoglobin stable at 8.1. Her Eliquis remains on hold. 10/19/24 Patient seen and examined. Patient is scheduled for EGD today with general surgery. Lissett remains on hold and family member asking about this. Lissett will remain on hold until cleared by the general surgery. She is currently on CPAP. Blood pressure 107/55, heart rate in the 60s, pulse ox 97%. Repeat blood work reveals hemoglobin 7.5, BUN 25 creatinine 1.15. 10/20/2024 Patient seen and examined. Yesterday she underwent EGD that did not find source of bleeding. She is now scheduled for colonoscopy tomorrow. Lissett remains on hold until cleared by general surgery. She states she is feeling well today. No chest pain and no shortness of breath. Blood pressure 115/70, heart rate 63, pulse ox 99% on 5 L nasal cannula. Repeat blood work reveals hemoglobin 7.5, BUN 23 and creatinine 1.05. 10/21/2024 Patient seen and examined. Patient is scheduled for colonoscopy today with Dr. Hurtado. She denies have any chest pain or shortness of breath. Heart rates are in the 60s, blood pressure 108/54, pulse ox 100% on room air. Repeat blood work reveals hemoglobin 7.6, BUN 21 creatinine 1.07. 10/22/24 Patient seen and examined. Yesterday, patient underwent colonoscopy with no source of bleeding found. Daughter is quite upset with the entire situation. Patient denies having any chest pain, no shortness of breath. Blood pressure 112/56, heart rate 67, pulse ox 98% on 5 L nasal cannula. Patient has been on Lasix 60 mg in the morning 40 mg in the afternoon. PHYSICAL EXAM: VITAL SIGNS: Reviewed. GENERAL: Well-developed in no acute distress. NECK: Supple. No JVD or thyro, BUN 23 creatinine 1.05.megaly LUNGS: Respirations even and unlabored. Lungs essentially clear to auscultation bilaterally. HEART: Regular rate and rhythm. S1 and S2 heard. Systolic murmur noted. EXTREMITIES: Normal range of motion. No clubbing or cyanosis. Peripheral pulses intact. 1-2+ pitting bilateral lower extremity edema, improving ASSESSMENT: Acute on chronic diastolic heart failure Severe anemia, status post RBC transfusion, status post EGD and colonoscopy is scheduled for tomorrow Probable acute blood loss anemia secondary to acute on chronic GI bleed History of aortic valve replacement, mitral valve replacement, tricuspid valve repair May 2024 at [facility] Coronary artery disease with prior stenting Dual-chamber pacemaker, [facility], November 2017 Paroxysmal atrial fibrillation on Eliquis Hyperlipidemia Diabetes mellitus type 2 Hypertension Moderate to severe pulmonary hypertension PLAN: Continue to monitor hemoglobin. Eliquis remains on hold. Resume Eliquis once cleared by general surgery. Continue aspirin 81 mg daily for now. Continue oral Lasix 40 mg twice daily Continue patient on statin, Toprol XL 50 mg twice daily and Aldactone 25 mg daily Patient is cleared for discharge from cardiology May follow-up in the office with Dr. Watson in 1 to 2 weeks. Nurse practitioner note has been reviewed by physician. Signing provider agrees with the documented findings, assessment, and plan of care documented by CREDIT OFFICER as a scribe. Objective - Vital Signs Vital signs: Vital Signs Temp 97.3 F L 10/22/24 08:55 Pulse 67 10/22/24 08:55 Resp 20 10/22/24 08:55 BP 112/56 10/22/24 08:55 Pulse Ox 98 10/22/24 08:55 FiO2 Intake & Output 10/21/24 10/22/24 10/22/24 18:59 06:59 18:59 Intake Total 336 150 Output Total 400 Balance 336 -400 150 Weight 120.7 kg Intake: IV 100 Oral 236 150 Output: Urine 400 Other: Voiding Method Toilet Toilet External Catheter # Voids 2 - Labs CBC & Chem 7: 10/22/24 06:43 10/22/24 06:43 Labs: Abnormal Lab Results - Last 24 Hours (Table) 10/21/24 10/21/24 10/21/24 Range/Units 11:32 16:29 20:01 RBC (3.80-5.40) m/uL Hgb (11.4-16.0) gm/dL Hct (34.0-46.0) % MCH (25.0-35.0) pg MCHC (31.0-37.0) g/dL RDW (11.5-15.5) % Lymphocytes # (1.0-4.8) k/uL Sodium (137-145) mmol/L Chloride (98-107) mmol/L Carbon Dioxide (22-30) mmol/L BUN (7-17) mg/dL Creatinine (0.52-1.04) mg/dL Glucose (74-99) mg/dL POC Glucose (mg/dL) 113 H 164 H 204 H (70-110) mg/dL Calcium (8.4-10.2) mg/dL 10/22/24 10/22/24 10/22/24 Range/Units 05:38 06:43 06:43 RBC 2.89 L (3.80-5.40) m/uL Hgb 7.2 L (11.4-16.0) gm/dL Hct 24.2 L (34.0-46.0) % MCH 24.9 L (25.0-35.0) pg MCHC 29.8 L (31.0-37.0) g/dL RDW 19.3 H (11.5-15.5) % Lymphocytes # 0.6 L (1.0-4.8) k/uL Sodium 136 L (137-145) mmol/L Chloride 90 L (98-107) mmol/L Carbon Dioxide 37 H (22-30) mmol/L BUN 20 H (7-17) mg/dL Creatinine 1.21 H (0.52-1.04) mg/dL Glucose 141 H (74-99) mg/dL POC Glucose (mg/dL) 178 H (70-110) mg/dL Calcium 8.0 L (8.4-10.2) mg/dL
--- NOTE | 2024-10-22 14:15 | XR ---
EXAMINATION TYPE: XR chest 1V portable DATE OF EXAM: 10/22/2024 12:53 PM COMPARISON: 10/13/2024 CLINICAL INDICATION: Female, 79 years old with history of f/u pleural effusion, , FINDINGS: Median sternotomy wires and prosthetic aortic valve. Left anterior chest wall pacemaker generator wit h right atrial and ventricular leads. Heart borderline enlarged. Diffuse interstitial density persist s with slight worsening. Ongoing moderate left pleural effusion with adjacent patchy left basilar opa city. IMPRESSION: 1. Correlate for CHF with pulmonary vascular congestion, slightly worsened from prior. 2. Ongoing moderate left pleural effusion with adjacent atelectasis and/or consolidation. [facility], , 10/22/2024 2:13 PM
[2024-10-22] MEDS: FUROSEMIDE 40 MG TAB PO SCH (15:49)
--- NOTE | 2024-10-22 16:45 | P.PN ---
Subjective Progress Note Date: 10/22/24 Principal diagnosis: Acute on chronic diastolic congestive heart failure, acute on chronic hypoxic respiratory failure with history of obstructive sleep apnea syndrome and valvular heart disease. This is a 79-year-old female patient who is being seen in consultation for metabolic alkalosis. The patient was hospitalized on 10/08/2024 and the patient was in significant volume overload and she was also complaining of some shortness of breath and the patient's chest x-ray showed a left-sided pleural effusion. The patient had previous history of aortic valve placement and mitral valve replacement and tricuspid valve repair patient also has history of coronary artery disease and the patient has undergone previous stenting of the mid LAD and ostial PDA.The patient has a dual-chamber pacemaker insertion. She has paroxysmal atrial fibrillation, diabetes mellitus type 2, hypertension hyperlipidemia. The patient underwent her cardiac surgery at the [facility] back in May of this year. She has been followed by [facility]. She is also known to have obstructive sleep apnea. I have seen her in the sleep center in the past and the patient has been maintained on the BiPAP pressure of 18 over 14 cm of water and she has been quite compliant with treat ent. She is also on oxygen and she had progressive worsening in her hypoxemia along with increased shortness of breath. Based on that, the patient came into the hospital. EKG showed a paced rhythm. The chest x-ray showed cardiomegaly and bilateral pleural effusion worse on the left. The patient's hemoglobin was low at 6.2 and dropped down to 5.5. The patient was transfused with a total of 3 units of packed RBC during the current hospitalization the patient's hemoglobin is currently is at 8.2. A repeat echocardiogram was done during this current hospitalization on 10/09/2024 and the patient was found to have a normal LV with an ejection fraction of 6065%, severe pulm hypertension with a PA pressure of 56. The patient had mitral valve replacement with mild mitral stenosis and aortic valve replacement without any valvular abnormalities or regurgitation. No evidence of any pericardial effusion. During this current admission, the patient was subjected to diuresis the patient is currently on Lasix 40 mg IV every 8 hours and the patient is also on Zaroxolyn 5 mg p.o. daily and Aldactone 25 mg p.o. daily. I checked the fluid balance and over the past 4 days, the patient has been in the negative fluid balance of at least 8 L. There has been also steady increase in his serum bicarb. The patient is initial bicarb at the time of admission was 28 and currently is up to 42. I obtained a follow-up chest x-ray this morning and it showed overall stable findings consistent with CHF and pulm vessel congestion. There is a small to moderate-sized left-sided pleural effusion along with some adjacent atelectatic change. Hemoglobin is at 8.2 with a white cell count of 6.4 and a platelet count of 127. BUN is 19 with a creatinine of 1.09 and sodium levels at 136 and potassium levels at 3.1. She remains on Levemir insulin 20 units nightly and NovoLog sliding scale coverage. She is also on Toprol 50 mg p.o. twice daily and IV Protonix. She remains on aspirin. On 10/14/2024, the patient is being seen for a follow-up. The patient is doing well. She continues to diurese well. Fluid balance has been -2.5 L over the past 24 hours. Nevertheless, she continues to have significant amount of edema in the abdomen lower extremities involving the thighs. BUN is 18 with a c reatinine of 1.22. The patient developed metabolic alkalosis. The serum bicarb was quite elevated and the patient received a total of 2 doses of Diamox and the serum bicarb is down to 37. Meanwhile, the diuretics have been modified and the patient is currently on Lasix 60 mg in the morning and 40 mg in the evening. The patient is also on Zaroxolyn 5 mg p.o. daily and Aldactone 25 mg p.o. daily. The patient is utilizing her BiPAP and once off the BiPAP, she is maintaining herself on oxygen at 5 L/min nasal cannula. No significant shortness of breath. No cough or sputum production. Edema still extensive. On 10/15/2024, the patient is being seen for a follow-up. Doing well. Still has edema lower extremities. Nevertheless, the fluid balance has been -2.5 L over the past 24 hours and if she is producing good urine output. She remains on Lasix 60 mg in the morning and 40 mg in the evenings p.o. and the patient remains on Aldactone 25 mg p.o. daily and Zaroxolyn 5 mg p.o. daily. She is utilizing her BiPAP routinely. No labs are available from today. Nevertheless, the patient is awake and alert and communicating. No other significant events overnight. On 10/16/2024, the patient remains clinically stable. No new complaints. Remains in negative fluid balance. She has developed some metabolic alkalosis with a serum bicarb of 37. BUN is 24 with a creatinine of 1.2. The white cell count is at 7.7 with a hemoglobin of 7.5. Continues to utilize her BiPAP on a regular basis. After BiPAP, she is on 5 L of oxygen nasal cannula. No new complaints. Diuretics include Lasix 60 mg morning and 40 mg the evening and the patient remains on Zaroxolyn and Aldactone. On 10/17/2024, the patient is sitting up in a chair and she is calm and comfortable and she reports improvement in her volume status and edema in lower extremities. She remains negative fluid balance. She continues to be on diuretics, a combination of Lasix, Aldactone and Zaroxolyn. Fluid balance is n egative. BUN 25 with a creatinine of 1.1. Sodium levels at 133. No altered mentation. Using BiPAP and once off the BiPAP, the patient is on oxygen at 5 L/min nasal cannula. No cough. No sputum production. No fever or chills. No altered mentation. On 10/18/2024, the patient is being seen for a follow-up. Doing well. No specific complaints. Continues to diurese. Negative fluid balance. Maintain on BiPAP on and off during the day and continuously overnight. While off the BiPAP, the patient is on 5 L with a pulse ox of 99%. Hemoglobin is 8.1. Awaiting EGD and colonoscopy. The BUN is 25 with a creatinine of 1.23 and a serum bicarb is at 39 and sodium levels at 139. Remains on Lasix, Zaroxolyn and Aldactone. The patient is seen today October 19, 2024 in follow-up on the selective care unit. She is currently resting comfortably in bed. Awake and alert in no acute distress. She is maintaining O2 saturations in the 90s on 5 L/min per nasal cannula. She is utilizing BiPAP throughout the evenings and during the day while napping. She did undergo EGD today revealed no evidence of active bleeding. There is gastritis, duodenitis. Erosive esophagitis. White count 6.1. Hemoglobin 7.5. Platelets 156. Sodium 134. Potassium 3.7. Bicarb 40. BUN 25. Creatinine 1.15. Glucose 143. She remains on diuretics. Patient today on 10/20/2024, feeling better, her EGD is basically nondiagnostic, patient is now scheduled to have colonoscopy. She was found to have gastritis duodenitis and erosive gastritis. Clinically the patient is feeling better, not in any distress, sitting at the bedside chair, denies any shortness of breath. Continues to have 5 L nasal cannula however her O2 saturation 100% her blood pressure is stable 105/53. And she is afebrile. WBC count is 6 hemoglobin 7.5, unchanged from yesterday and it was 7.5 hemoglobin was 8.1 on 10/18. Patient den ies any symptoms to suggest active bleeding Reevaluate today on 10/21/2024, patient is doing fairly well, she had colonoscopy and she had polyps removed, there was no evidence of active bleeding. Patient is being considered for discharge, follow-up chest x-ray showed basically the same continues to have left pleural effusion, hence I recommended increasing the Lasix dose she is presently on. Apparently this was cut down since admission but clinically no major change hemoglobin is holding she has a hemoglobin of 7.2 WBC is 5.9, electrolytes are normal renal profile showed a BUN of 20 creatinine 1.21 patient is now on Lasix 60 mg in the morning and 40 mg in the afternoon. This was adjusted by cardiology nonetheless her chest x-ray continues to show evidence of mild pulmonary edema with left pleural effusion patient is known to have history of aortic valve replacement mitral valve replacement and tricuspid valve repair at the [facility] in May of 2024. And she does have moderat e to severe pulmonary hypertension She is chronically on home O2 Objective - Vital Signs Vital signs: Vital Signs Temp 98.1 F 10/22/24 15:51 Pulse 64 10/22/24 15:51 Resp 16 10/22/24 15:51 BP 121/59 10/22/24 15:51 Pulse Ox 98 10/22/24 15:51 FiO2 Intake & Output 10/21/24 10/22/24 10/22/24 18:59 06:59 18:59 Intake Total 336 270 Output Total 400 Balance 336 -400 270 Weight 120.7 kg Intake: IV 100 Oral 236 270 Output: Urine 400 Other: Voiding Method Toilet Toilet Toilet External Catheter # Voids 2 1 # Bowel Movements 1 - Exam GENERAL EXAM: 79-year-old female in no distress on nasal cannula 5 L nasal cannula with O2 sat of 98% HEAD: Normocephalic. EYES: Normal reaction of pupils, equal size. NOSE: Clear with pink turbinates. THROAT: No erythema or exudates. NECK: No masses, no JVD. CHEST: No chest wall deformity. LUNGS: Equal air entry with no crackles, wheeze, rhonchi or dullness. Likely diminished breath sounds at the left base no crackles wheezes CVS: S1 and S2 normal with no audible murmur, regular rhythm. ABDOMEN: No hepatosplenomegaly, normal bowel sounds, no guarding or rigidity. SKIN: No rashes CENTRAL NERVOUS SYSTEM: No focal deficits, tone is normal in all 4 extremities. EXTREMITIES: There is no peripheral edema. No clubbing, no cyanosis. Peripheral pulses are intact. - Labs CBC & Chem 7: 10/22/24 06:43 10/22/24 06:43 Labs: Abnormal Lab Results - Last 24 Hours (Table) 10/21/24 10/22/24 10/22/24 Range/Units 20:01 05:38 06:43 RBC 2.89 L (3.80-5.40) m/uL Hgb 7.2 L (11.4-16.0) gm/dL Hct 24.2 L (34.0-46.0) % MCH 24.9 L (25.0-35.0) pg MCHC 29.8 L (31.0-37.0) g/dL RDW 19.3 H (11.5-15.5) % Lymphocytes # 0.6 L (1.0-4.8) k/uL Sodium (137-145) mmol/L Chloride (98-107) mmol/L Carbon Dioxide (22-30) mmol/L BUN (7-17) mg/dL Creatinine (0.52-1.04) mg/dL Glucose (74-99) mg/dL POC Glucose (mg/dL) 204 H 178 H (70-110) mg/dL Calcium (8.4-10.2) mg/dL Crossmatch 10/22/24 10/22/24 10/22/24 Range/Units 06:43 10:55 11:25 RBC (3.80-5.40) m/uL Hgb (11.4-16.0) gm/dL Hct (34.0-46.0) % MCH (25.0-35.0) pg MCHC (31.0-37.0) g/dL RDW (11.5-15.5) % Lymphocytes # (1.0-4.8) k/uL Sodium 136 L (137-145) mmol/L Chloride 90 L (98-107) mmol/L Carbon Dioxide 37 H (22-30) mmol/L BUN 20 H (7-17) mg/dL Creatinine 1.21 H (0.52-1.04) mg/dL Glucose 141 H (74-99) mg/dL POC Glucose (mg/dL) 193 H (70-110) mg/dL Calcium 8.0 L (8.4-10.2) mg/dL Crossmatch See Detail Assessment and Plan Assessment: Impression Acute on chronic dyspnea with signs of decompensated heart failure essentially due to diastolic heart failure and valvular heart disease. Remains on diuretics, clinically improving. Chest x-ray is basically unchanged Acute on chronic hypoxic respiratory failure, currently on 5 L of oxygen by nasal cannula Obstructive sleep apnea maintained on BiPAP pressure of 18/14 cm of water, utilizing her on device from home Acute on chronic anemia, s/p transfusion with a total of 3 units of packed RBC. Hemoglobin is at 7.5. EGD today October 19, 2024 revealed no active bleeding History of valvular heart disease and the patient is status post aortic valve replacement, mitral valve replacement and tricuspid valve repair in May 2024 performed at [facility] Dual-chamber pacemaker insertion, November 2017 Paroxysmal A-fib maintained on anticoagulation with Eliquis Coronary artery disease with previous coronary stenting of the LAD and ostial PDA Diabetes mellitus type 2 Hyperlipidemia Hypertension Severe pulmonary hypertension, group 2 Metabolic alkalosis developed during this current hospital stay due to aggressive diuresis and the patient has been increased 8 to 9 L negative fluid balance with ongoing edema. The patient was given 2 doses of Diamox and the metabolic alkalosis improved. Recommendation: Continue diuretics, as per cardiology consider increasing the dose since her chest x-ray is basically about the same continues to have left pleural effusion Reviewed the results of her EGD, and the results of the colonoscopy Continue to monitor hemoglobin today is 7.2 patient received a total of 3 units of packed RBCs, will receive another unit today Will continue to follow Time with Patient: Less than 30
[2024-10-22 16:53] LABS: Glucose,Whole Blood 212 mg/dL (70-110)
[2024-10-22 20:23] LABS: Glucose,Whole Blood 270 mg/dL (70-110)
[2024-10-23 06:13] LABS: Glucose,Whole Blood 109 mg/dL (70-110)
--- NOTE | 2024-10-23 08:25 | US ---
EXAMINATION TYPE: US chest DATE OF EXAM: 10/23/2024 COMPARISON: Radiograph 10/22/2024 CLINICAL INDICATION: Female, 79 years old with history of Markings for thoracentesis by pulmonary sta ff; Left effusion TECHNIQUE: Grayscale imaging of the chest. Targeted ultrasound of the posterior lower left hemithora x FINDINGS: EXAM MEASUREMENTS: Left Pleural Effusion pocket size: 10.5 cm Left skin surface to fluid distance: 3.5 cm Left side marked for possible thoracentesis outside the dept. Pulmonologists are able to review the images in the patient?s EMR. IMPRESSIONS: Moderate left pleural effusion with marking performed. [facility], , 10/23/2024 8:23 AM
[2024-10-23 09:38] LABS: Anisocytosis Slight; HCT 24.3 % (34.0-46.0); HGB 7.3 gm/dL (11.4-16.0); Hypochromasia Marked; MCH 25.5 pg (25.0-35.0); Mean Platelet Volume 8.1; Platelet Count 171 k/uL (150-450); Poikilocytosis Slight; RBC 2.85 m/uL (3.80-5.40); RDW 19.5 % (11.5-15.5); WBC 6.5 k/uL (3.8-10.6)
[2024-10-23 09:58] LABS: African American GFR (CKD) 54 (>60 ml/min/1.73 sqM); Anion Gap 6 mmol/L; Blood Urea Nitrogen 20 mg/dL (7-17); Calcium 8.1 mg/dL (8.4-10.2); Carbon Dioxide 38 mmol/L (22-30); Chloride 90 mmol/L (98-107); Glucose 182 mg/dL (74-99); Non-African American GFR(CKD) 47 (>60 ml/min/1.73 sqM); Potassium 3.7 mmol/L (3.5-5.1); Sodium 134 mmol/L (137-145)
[2024-10-23 11:07] LABS: Glucose,Whole Blood 210 mg/dL (70-110)
--- NOTE | 2024-10-23 11:39 | P.PN ---
Subjective Progress Note Date: 10/23/24 CHIEF COMPLAINT: GI bleed HISTORY OF PRESENT ILLNESS: Surgical service following regards to patient's GI bleed. Patient is status post colonoscopy with findings of a tubular adenoma at the hepatic flexure and cecum, sigmoid diverticulosis, internal hemorrhoids and melanosis coli. EGD reporting erosive esophagitis and gastritis. Patient denies any blood or in her stools or any black stools. She has had normal brown bowel movement. Discharge held yesterday due to pleural effusion. She is scheduled for a chest ultrasound today. Patient did not receive blood transfusion yesterday because PRBCs were not available. Patient had to have antibody identification done. Vital stable. Hemoglobin stable 7.3 PHYSICAL EXAM: VITAL SIGNS: Reviewed GENERAL: Well-developed in no acute distress. HEENT: No sclera icterus. Extraocular movements grossly intact. Moist buccal mucosa. Head is atraumatic, normocephalic. Hears conversational speech. No nasal drainage. NECK: Supple without lymphadenopathy. CHEST: Non-labored respirations and equal bilateral excursions. CARDIOVASCULAR: Palpable 2+ radial pulses. ABDOMEN: Soft. Nondistended. Nontender. MUSCULOSKELETAL: No clubbing or cyanosis. NEUROLOGIC: No focal or lateralizing signs. Cranial nerves II through XII grossly intact. PSYCH: Appropriate affect. Alert and oriented to person, place and time. SKIN: Well perfused. Good skin turgor. ASSESSMENT: 1. Gastrointestinal bleed resolved status post EGD and colonoscopy 2. Status post blood transfusion 3. Congestive heart failure with diastolic dysfunction 4. History of triple valve replacement 5. Acute blood loss anemia PLAN: -Recommend to hold anticoagulation until 10/24/2024 -Recommend patient follow-up with GI service for capsule endoscopy outpatient -Recommend that patient follows up with her sterile process tech out of [facility] where she has had her heart valve surgery -Patient can be discharge from surgical standpoint when medically cleared Physician Commercial [employer] Auditor note has been reviewed by physician. Signing provider agrees with the documented findings, assessment, and plan of care. As above. Please see additional documentation below. CHIEF COMPLAINT: GI bleed HISTORY OF PRESENT ILLNESS: The patient is a 79-year-old female who presents to the hospital with acute anemia. Upper and lower endoscopies were performed. Additionally, patient has new problem of pleural effusion. She did present with congestive heart failure upon her initial admission. At this time, her hemoglobin has been stable. No signs of bleeding. ROS: No reports of nausea and vomiting. Bowel movement without blood. No fevers or chills. No new chest pain. No productive sputum PHYSICAL EXAM: VITAL SIGNS: Reviewed CONSTITUTIONAL: Well developed and in no acute distress. EYES: Conjuctivae without sclera icterus. Extraocular movements grossly intact. HEAD, EARS, NOSE, THROAT: Moist buccal mucosa. Head is atraumatic, normocephalic. Hears conversational speech. No nasal drainage. RESPIRATORY: Non-labored respirations and equal bilateral excursions. CARDIOVASCULAR: Palpable 2+ radial pulses. ABDOMEN: Obese. Nontender. MUSCULOSKELETAL: No gross deformity of the lower extremities noted. No clubbing. No cyanosis. SKIN: Good skin turgor. Well perfused. NEUROLOGIC: Cranial nerves II through XII grossly intact. No focal or lateralizing signs. PSYCH: Appropriate affect. Alert and oriented to person, place and time. CLINICAL LABS: Reviewed. Hemoglobin stabilizing 7.2-7.3, persistent anemia. ASSESSMENT: 1. Gastrointestinal bleed 2. Status post blood transfusion 3. Congestive heart failure with diastolic dysfunction 4. History of triple valve replacement 5. Acute blood loss anemia 6. Obesity due to excess calories, BMI 43.1 7. Chronic anticoagulant use 8. Pleural effusion, new PLAN: 1. Recommend management of pleural effusion due to recent congestive heart failure including cardiopulmonary history of valvular replacement. 2. May benefit from GI consultation for capsule endoscopy which also may be done as outpatient. 3. Overall, patient is high risk with complications of valvular surgery including recent anemia due to prolonged nonanticoagulation status. Objective - Vital Signs Vital signs: Vital Signs Temp 99.4 F 10/23/24 08:00 Pulse 62 10/23/24 08:00 Resp 16 10/23/24 08:00 BP 101/52 10/23/24 08:00 Pulse Ox 100 10/23/24 08:00 FiO2 Intake & Output 10/22/24 10/23/24 10/23/24 18:59 06:59 18:59 Intake Total 570 120 Output Total 1450 Balance 570 -1450 120 Weight 118.7 kg Intake: Oral 570 120 Output: Urine 1450 Other: Voiding Method Toilet Toilet Toilet # Voids 1 # Bowel Movements 1 - Labs CBC & Chem 7: 10/29/24 11:25 10/28/24 09:29 Labs: Abnormal Lab Results - Last 24 Hours (Table) 10/22/24 10/22/24 10/22/24 Range/Units 10:55 16:52 20:22 RBC (3.80-5.40) m/uL Hgb (11.4-16.0) gm/dL Hct (34.0-46.0) % MCHC (31.0-37.0) g/dL RDW (11.5-15.5) % Sodium (137-145) mmol/L Chloride (98-107) mmol/L Carbon Dioxide (22-30) mmol/L BUN (7-17) mg/dL Creatinine (0.52-1.04) mg/dL Glucose (74-99) mg/dL POC Glucose (mg/dL) 212 H 270 H (70-110) mg/dL Calcium (8.4-10.2) mg/dL Crossmatch See Detail Blood Bank Comment Sent to [facility] A Reference Lab Result See [facility] REF Reports A 10/23/24 10/23/24 10/23/24 Range/Units 09:10 09:10 11:05 RBC 2.85 L (3.80-5.40) m/uL Hgb 7.3 L (11.4-16.0) gm/dL Hct 24.3 L (34.0-46.0) % MCHC 30.0 L (31.0-37.0) g/dL RDW 19.5 H (11.5-15.5) % Sodium 134 L (137-145) mmol/L Chloride 90 L (98-107) mmol/L Carbon Dioxide 38 H (22-30) mmol/L BUN 20 H (7-17) mg/dL Creatinine 1.13 H (0.52-1.04) mg/dL Glucose 182 H (74-99) mg/dL POC Glucose (mg/dL) 210 H (70-110) mg/dL Calcium 8.1 L (8.4-10.2) mg/dL Crossmatch Blood Bank Comment Reference Lab Result
[2024-10-23 14:33] LABS: Total Protein 6.7 g/dL (6.3-8.2)
--- NOTE | 2024-10-23 14:39 | XR ---
EXAMINATION TYPE: XR chest 1V portable DATE OF EXAM: 10/23/2024 2:20 PM COMPARISON: 10/22/2024 CLINICAL INDICATION: Female, 79 years old with shortness of breath, history of lt thoracentesis, , FINDINGS: Left anterior chest wall pacemaker generator with right atrial and ventricular leads. Median sternoto my wires are present with prosthetic aortic valve. Heart mildly enlarged. Suspect dense mitral annula r calcifications. Diffuse interstitial opacities persist with slight worsening. Small bilateral pleur al effusions remain, improved on the left. No appreciable pneumothorax. IMPRESSION: 1. Correlate for ongoing CHF with mild interstitial pulmonary edema, similar to slightly worsened. 2. Residual small bilateral pleural effusions, improved on the left. [facility], , 10/23/2024 2:37 PM
[2024-10-23] MEDS: FUROSEMIDE 10 MG/ML 10 ML VIAL IV STA (15:39)
--- NOTE | 2024-10-23 15:52 | XR ---
EXAMINATION TYPE: XR chest 1V DATE OF EXAM: 10/23/2024 3:45 PM COMPARISON: Chest radiographs from 10/23/2024 CLINICAL INDICATION: Female, 79 years old with history of sob after thora; TECHNIQUE: XR chest 1V Frontal view of the chest. FINDINGS: Lungs/Pleura: There is no evidence of pleural effusion, focal consolidation, or pneumothorax. Pulmonary vascularity: Unremarkable. Heart/mediastinum: Cardiomediastinal silhouette is enlarged. Two lead cardiac conduction device overl gabriella the left hemithorax with lead tips projecting over the right ventricle and right atrium. Musculoskeletal: No acute osseous pathology. IMPRESSION: 1. No evidence for pneumothorax. 2. Cardiomegaly, pulmonary vascular congestion and bilateral pleural effusions. Correlate with BNP f or congestive heart failure. [facility], , 10/23/2024 3:49 PM
[2024-10-23 16:13] LABS: Glucose,Whole Blood 309 mg/dL (70-110)
--- NOTE | 2024-10-23 16:38 | P.PN ---
Subjective Progress Note Date: 10/23/24 79-year-old female patient who is on oxygen and she had progressive worsening in her hypoxemia along with increased shortness of breath. Based on that, the patient came into the hospital. EKG showed a paced rhythm. The chest x-ray showed cardiomegaly and bilateral pleural effusion worse on the left. The patient's hemoglobin was low at 6.2 and dropped down to 5.5. The patient was transfused with a total of 3 units of packed RBC during the current hospitalization the patient's hemoglobin is currently is at 8.2. A repeat echocardiogram was done during this current hospitalization on 10/09/2024 and the patient was found to have a normal LV with an ejection fraction of 6065%, severe pulm hypertension with a PA pressure of 56. The patient had mitral valve replacement with mild mitral stenosis and aortic valve replacement without any valvular abnormalities or regurgitation. No evidence of any pericardial effusion. During this current admission, the patient was subjected to diuresis the patient is currently on Lasix 40 mg IV every 8 hours and the patient is also on Zaroxolyn 5 mg p.o. daily and Aldactone 25 mg p.o. daily. I checked the fluid balance and over the past 4 days, the patient has been in the negative fluid balance of at least 8 L. There has been also steady increase in his serum bicarb. The patient is initial bicarb at the time of admission was 28 and currently is up to 42. I obtained a follow-up chest x-ray this morning and it showed overall stable findings consistent with CHF and pulm vessel congestion. There is a small to moderate-sized left-sided pleural effusion along with some adjacent atelectatic change. Hemoglobin is at 8.2 with a white cell count of 6.4 and a platelet count of 127. BUN is 19 with a creatinine of 1.09 and sodium levels at 136 and potassium levels at 3.1. She remains on Levemir insulin 20 units nightly and NovoLog sliding scale coverage. She is also on Toprol 50 mg p.o. twice daily and IV Protonix. She remains on aspirin. Objective - Vital Signs Vital signs: Vital Signs Temp 99.4 F 10/23/24 08:00 Pulse 62 10/23/24 08:00 Resp 16 10/23/24 08:00 BP 101/52 10/23/24 08:00 Pulse Ox 100 10/23/24 08:00 FiO2 Intake & Output 10/22/24 10/23/24 10/23/24 18:59 06:59 18:59 Intake Total 570 120 Output Total 1450 Balance 570 -1450 120 Weight 118.7 kg Intake: Oral 570 120 Output: Urine 1450 Other: Voiding Method Toilet Toilet # Voids 1 # Bowel Movements 1 - Exam GENERAL EXAM: 79-year-old female in no distress on nasal cannula 5 L nasal cannula with O2 sat of 98% HEAD: Normocephalic. EYES: Normal reaction of pupils, equal size. NECK: No masses, no JVD. CHEST: No chest wall deformity. LUNGS: Equal air entry with no crackles, wheeze, rhonchi or dullness. Likely diminished breath sounds at the left base no crackles wheezes CVS: S1 and S2 normal with no audible murmur, regular rhythm. ABDOMEN: No hepatosplenomegaly, normal bowel sounds, no guarding or rigidity. CENTRAL NERVOUS SYSTEM: No focal deficits, tone is normal in all 4 extremities. EXTREMITIES: There is no peripheral edema. No clubbing, no cyanosis. Peripheral pulses are intact. - Labs CBC & Chem 7: 10/23/24 09:10 10/23/24 09:10 Labs: Abnormal Lab Results - Last 24 Hours (Table) 10/22/24 10/22/24 10/22/24 Range/Units 10:55 11:25 16:52 RBC (3.80-5.40) m/uL Hgb (11.4-16.0) gm/dL Hct (34.0-46.0) % MCHC (31.0-37.0) g/dL RDW (11.5-15.5) % Sodium (137-145) mmol/L Chloride (98-107) mmol/L Carbon Dioxide (22-30) mmol/L BUN (7-17) mg/dL Creatinine (0.52-1.04) mg/dL Glucose (74-99) mg/dL POC Glucose (mg/dL) 193 H 212 H (70-110) mg/dL Calcium (8.4-10.2) mg/dL Crossmatch See Detail Blood Bank [facility] Result See BBK REF Reports A 10/22/24 10/23/24 10/23/24 Range/Units 20:22 09:10 09:10 RBC 2.85 L (3.80-5.40) m/uL Hgb 7.3 L (11.4-16.0) gm/dL Hct 24.3 L (34.0-46.0) % MCHC 30.0 L (31.0-37.0) g/dL RDW 19.5 H (11.5-15.5) % Sodium 134 L (137-145) mmol/L Chloride 90 L (98-107) mmol/L Carbon Dioxide 38 H (22-30) mmol/L BUN 20 H (7-17) mg/dL Creatinine 1.13 H (0.52-1.04) mg/dL Glucose 182 H (74-99) mg/dL POC Glucose (mg/dL) 270 H (70-110) mg/dL Calcium 8.1 L (8.4-10.2) mg/dL Crossmatch Blood Bank Comment Reference Lab Result Assessment and Plan Assessment: Acute on chronic anemia, status post 3 units packed RBCs, status post EGD reporting blood found in the posterior oropharynx ,no active bleeding;gastroesophageal reflux disease with erosive esophagitis,gastritis, duodenitis, duodenal polyp. 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 PHILLIPOLissett remains on hold, colonoscopy pending. close monitoring of hemoglobin, renal function with repeat labs ordered for a.m.
--- NOTE | 2024-10-23 17:44 | P.PN ---
Subjective Progress Note Date: 10/23/24 This is a 79-year-old female patient who is being seen in consultation for metabolic alkalosis. The patient was hospitalized on 10/08/2024 and the patient was in significant volume overload and she was also complaining of some shortness of breath and the patient's chest x-ray showed a left-sided pleural effusion. The patient had previous history of aortic valve placement and mitral valve replacement and tricuspid valve repair patient also has history of coronary artery disease and the patient has undergone previous stenting of the mid LAD and ostial PDA.The patient has a dual-chamber pacemaker insertion. She has paroxysmal atrial fibrillation, diabetes mellitus type 2, hypertension hyperlipidemia. The patient underwent her cardiac surgery at the [facility] back in May of this year. [facility] has [facility]. She is also known to have obstructive sleep apnea. I have seen her in the sleep center in the past and the patient has been maintained on the BiPAP pressure of 18 over 14 cm of water and she has been quite compliant with treatment. She is also on oxygen and she had progressive worsening in her hypoxemia along with increased shortness of breath. Based on that, the patient came into the hospital. EKG showed a paced rhythm. The chest x-ray showed cardiomegaly and bilateral pleural effusion worse on the left. The patient's hemoglobin was low at 6.2 and dropped down to 5.5. The patient was transfused with a total of 3 units of packed RBC during the current hospitalization the patient's hemoglobin is currently is at 8.2. A repeat echocardiogram was done during this current hospitalization on 10/09/2024 and the patient was found to have a normal LV with an ejection fraction of 6065%, severe pulm hypertension with a PA pressure of 56. The patient had mitral valve replacement with mild mitral stenosis and aortic valve replacement without any valvular abnormalities or regurgitation. No evidence of any pericardial effusion. During this current admission, the patient was subjected to diuresis the patient is currently on Lasix 40 mg IV every 8 hours and the patient is also on Zaroxolyn 5 mg p.o. daily and Aldactone 25 mg p.o. daily. I checked the fluid balance and over the past 4 days, the patient has been in the negative fluid balance of at least 8 L. There has been also steady increase in his serum bicarb. The patient is i nitial bicarb at the time of admission was 28 and currently is up to 42. I obtained a follow-up chest x-ray this morning and it showed overall stable findings consistent with CHF and pulm vessel congestion. There is a small to moderate-sized left-sided pleural effusion along with some adjacent atelectatic change. Hemoglobin is at 8.2 with a white cell count of 6.4 and a platelet count of 127. BUN is 19 with a creatinine of 1.09 and sodium levels at 136 and potassium levels at 3.1. She remains on Levemir insulin 20 units nightly and NovoLog sliding scale coverage. She is also on Toprol 50 mg p.o. twice daily and IV Protonix. She remains on aspirin. On 10/14/2024, the patient is being seen for a follow-up. The patient is doing well. She continues to diurese well. Fluid balance has been -2.5 L over the past 24 hours. Nevertheless, she continues to have significant amount of edema in the abdomen lower extremities involving the thighs. BUN is 18 with a creatinine of 1.22. The patient developed metabolic alkalosis. The serum bicarb was quite elevated and the patient received a total of 2 doses of Diamox and the serum bicarb is down to 37. Meanwhile, the diuretics have been modified and the patient is currently on Lasix 60 mg in the morning and 40 mg in the evening. The patient is also on Zaroxolyn 5 mg p.o. daily and Aldactone 25 mg p.o. daily. The patient is utilizing her BiPAP and once off the BiPAP, she is maintaining herself on oxygen at 5 L/min nasal cannula. No significant shortness of breath. No cough or sputum production. Edema still extensive. On 10/15/2024, the patient is being seen for a follow-up. Doing well. Still has edema lower extremities. Nevertheless, the fluid balance has been -2.5 L over the past 24 hours and if she is producing good urine output. She remains on Lasix 60 mg in the morning and 40 mg in the evenings p.o. and the patient remains on Aldactone 25 mg p.o. daily and Zaroxolyn 5 mg p.o. daily. She is utilizing her BiPAP routinely. No labs are available from today. Nevertheless, the patient is awake and alert and communicating. No other significant events overnight. On 10/16/2024, the patient remains clinically stable. No new complaints. Remains in negative fluid balance. She has developed some metabolic alkalosis with a serum bicarb of 37. BUN is 24 with a creatinine of 1.2. The white cell count is at 7.7 with a hemoglobin of 7.5. Continues to utilize her BiPAP on a regular basis. After BiPAP, she is on 5 L of oxygen nasal cannula. No new complaints. Diuretics include Lasix 60 mg morning and 40 mg the evening and the patient remains on Zaroxolyn and Aldactone. On 10/17/2024, the patient is sitting up in a chair and she is calm and comfortable and she reports improvement in her volume status and edema in lower extremities. She remains negative fluid balance. She continues to be on diu retics, a combination of Lasix, Aldactone and Zaroxolyn. Fluid balance is negative. BUN 25 with a creatinine of 1.1. Sodium levels at 133. No altered mentation. Using BiPAP and once off the BiPAP, the patient is on oxygen at 5 L/min nasal cannula. No cough. No sputum production. No fever or chills. No altered mentation. On 10/18/2024, the patient is being seen for a follow-up. Doing well. No specific complaints. Continues to diurese. Negative fluid balance. Maintain on BiPAP on and off during the day and continuously overnight. While off the BiPAP, the patient is on 5 L with a pulse ox of 99%. Hemoglobin is 8.1. Awaiting EGD and colonoscopy. The BUN is 25 with a creatinine of 1.23 and a serum bicarb is at 39 and sodium levels at 139. Remains on Lasix, Zaroxolyn and Aldactone. The patient is seen today October 19, 2024 in follow-up on the selective care unit. She is currently resting comfortably in bed. Awake and alert in no acute distress. She is maintaining O2 saturations in the 90s on 5 L/min per nasal cannula. She is utilizing BiPAP throughout the evenings and during the day while napping. She did undergo EGD today revealed no evidence of active bleeding. There is gastritis, duodenitis. Erosive esophagitis. White count 6.1. Hemoglobin 7.5. Platelets 156. Sodium 134. Potassium 3.7. Bicarb 40. BUN 25. Creatinine 1.15. Glucose 143. She remains on diuretics. The patient is seen today October 21, 2024 in follow-up on the [facility]. She is currently sitting up in bed. Awake and alert in no acute distress. Maintaining good O2 saturations in the 90s on 5 L/min per nasal cannula. She is utilizing her BiPap at night. Plan is for colonoscopy today. White count 5.5. Hemoglobin 7.6. Platelets 193. Sodium 134. Potassium 3.7. Bicarb 39. BUN 21. Creatinine 1.07. Glucose 95. She has been afebrile. Hemodynamically sta ble. The patient is seen today October 22, 2024 in follow-up on the selective care unit. She is currently sitting up in a chair at the bedside. Awake and alert in no acute distress. Receiving a unit of packed red blood cells. Denies any worsening shortness of breath, cough or congestion. She did have ongoing left pleural effusion. Ultrasound did show significant fluid. She underwent a left- sided thoracentesis today with Dr. Ledbetter. 850 mL of dark yellow fluid removed. She tolerated the procedure well. Chest x-ray showed improvement. No evidence of pneumothorax. She is maintaining O2 saturations in the high 90s on 5 L/min per nasal cannula. She is afebrile. Hemodynamically stable. White count 6.5. Hemoglobin 7.3. Platelets 171. Sodium 134. Potassium 3.7. Bicarb 38. BUN 20. Creatinine 1.13. Glucose 182. Eliquis remains on hold. Objective - Vital Signs Vital signs: Vital Signs Temp 98.5 F 10/23/24 15:41 Pulse 68 10/23/24 15:41 Resp 22 10/23/24 15:41 BP 101/68 10/23/24 15:41 Pulse Ox 97 10/23/24 15:41 FiO2 Intake & Output 10/22/24 10/23/24 10/23/24 18:59 06:59 18:59 Intake Total 570 430 Output Total 1450 Balance 570 -1450 430 Weight 118.7 kg Intake: Oral 570 120 Blood Product 310 Rc As-1 Unit 310 [id number] Output: Urine 1450 Other: Voiding Method Toilet Toilet Toilet # Voids 1 # Bowel Movements 1 - Exam GENERAL EXAM: Alert, pleasant 79-year-old female, sitting up in bed, on 5 L nasal cannula, in no apparent distress. HEAD: Normocephalic. EYES: Normal reaction of pupils, equal size. NOSE: Clear with pink turbinates. THROAT: No erythema or exudates. NECK: No masses, no JVD. CHEST: No chest wall deformity. LUNGS: Equal air entry with crackles in the left lung base. CVS: S1 and S2 normal with no audible murmur, regular rhythm. ABDOMEN: No hepatosplenomegaly, normal bowel sounds, no guarding or rigidity. SPINE: No scoliosis or deformity SKIN: No rashes CENTRAL NERVOUS SYSTEM: No focal deficits, tone is normal in all 4 extremities. EXTREMITIES: There is no peripheral edema. No clubbing, no cyanosis. Peripheral pulses are intact. - Labs CBC & Chem 7: 10/23/24 09:10 10/23/24 09:10 Labs: Abnormal Lab Results - Last 24 Hours (Table) 10/22/24 10/22/24 10/23/24 Range/Units 10:55 20:22 09:10 RBC (3.80-5.40) m/uL Hgb (11.4-16.0) gm/dL Hct (34.0-46.0) % MCHC (31.0-37.0) g/dL RDW (11.5-15.5) % Sodium 134 L (137-145) mmol/L Chloride 90 L (98-107) mmol/L Carbon Dioxide 38 H (22-30) mmol/L BUN 20 H (7-17) mg/dL Creatinine 1.13 H (0.52-1.04) mg/dL Glucose 182 H (74-99) mg/dL POC Glucose (mg/dL) 270 H (70-110) mg/dL Calcium 8.1 L (8.4-10.2) mg/dL Lactate Dehydrogenase (120-246) U/L Crossmatch See Detail Blood Bank Comment Sent to [facility] A Reference Lab Result See BBK REF Reports A 10/23/24 10/23/24 10/23/24 Range/Units 09:10 09:10 11:05 RBC 2.85 L (3.80-5.40) m/uL Hgb 7.3 L (11.4-16.0) gm/dL Hct 24.3 L (34.0-46.0) % MCHC 30.0 L (31.0-37.0) g/dL RDW 19.5 H (11.5-15.5) % Sodium (137-145) mmol/L Chloride (98-107) mmol/L Carbon Dioxide (22-30) mmol/L BUN (7-17) mg/dL Creatinine (0.52-1.04) mg/dL Glucose (74-99) mg/dL POC Glucose (mg/dL) 210 H (70-110) mg/dL Calcium (8.4-10.2) mg/dL Lactate Dehydrogenase 393 H (120-246) U/L Crossmatch Blood Bank Comment Reference Lab Result 10/23/24 Range/Units 16:11 RBC (3.80-5.40) m/uL Hgb (11.4-16.0) gm/dL Hct (34.0-46.0) % MCHC (31.0-37.0) g/dL RDW (11.5-15.5) % Sodium (137-145) mmol/L Chloride (98-107) mmol/L Carbon Dioxide (22-30) mmol/L BUN (7-17) mg/dL Creatinine (0.52-1.04) mg/dL Glucose (74-99) mg/dL POC Glucose (mg/dL) 309 H (70-110) mg/dL Calcium (8.4-10.2) mg/dL Lactate Dehydrogenase (120-246) U/L Crossmatch Blood Bank Comment Reference Lab Result Assessment and Plan Assessment: Acute on chronic dyspnea with signs of decompensated heart failure essentially due to diastolic heart failure and valvular heart disease. The patient had significant volume overload at time of admission and the patient has been diuresed with IV Lasix and she is currently on a combination of p.o. Lasix, Zaroxolyn and Aldactone. The patient maintains a negative fluid balance Left sided pleural effusion, status post thoracentesis on 10/23/2024 with 850 mL removed, cultures and cytology pending Acute on chronic hypoxic respiratory failure, currently on 5 L of oxygen by nasal cannula Obstructive sleep apnea maintained on BiPAP pressure of 18/14 cm of water, utilizing her on device from home Acute on chronic anemia, s/p transfusion with a total of 4 units of packed RBC. Hemoglobin is at 7.3. EGD October 19, 2024 revealed no active bleeding. Colonoscopy on 10/21/2024 revealed no active bleeding History of valvular heart disease and the patient is status post aortic valve replacement, mitral valve replacement and tricuspid valve repair in May 2024 performed at [facility] Dual-chamber pacemaker insertion, November 2017 Paroxysmal A-fib maintained on anticoagulation with Eliquis Coronary artery disease with previous coronary stenting of the LAD and ostial PDA Diabetes mellitus type 2 Hyperlipidemia Hypertension Severe pulmonary hypertension, group 2 Plan: The patient was seen and evaluated Chest x-rays, labs and medications reviewed Current hemoglobin 7.3 Receiving a unit of packed red blood cells today Did undergo thoracentesis today by Dr. Ledbetter 850 mL of fluid removed Cytology and cultures pending Titrate down the FiO2 as tolerated Lissett remains on hold Home once cleared by surgical services I have personally seen and examined the patient, performed the documentation and the assessment and plan as written. Number of minutes spent on the visit: 10 Dictation was produced using [employer] dictation software. Please excuse any grammatical, word or spelling errors.
[2024-10-23 20:02] LABS: Glucose,Whole Blood 250 mg/dL (70-110)
--- NOTE | 2024-10-23 22:10 | OP ---
OPERATIVE REPORT DATE OF SERVICE : PROCEDURE: Left-sided thoracentesis. PREOPERATIVE DIAGNOSIS: Left pleural effusion, not improving with diuretics. POSTOPERATIVE DIAGNOSIS: Left pleural effusion, not improving with diuretics. ANESTHESIA USED: 2 mL of 1% lidocaine. DESCRIPTION OF PROCEDURE: The patient was placed in a sitting upright position, the area below the left scapula was prepared in a sterile fashion. Drapes were applied. The area was earlier localized by ultrasound and correlated to the 8th intercostal space and tip of the scapula. The area was locally anesthetized, then a 26-gauge needle inserted at the same site, advanced into the pleural space until fluid was localized with the needle. Then a small tiny incision was made and a standard thoracentesis catheter and needle used, advanced into the pleural space. Fluid was obtained. Catheter advanced over the needle and the needle was pulled out of the pleural space. Freely flowing fluid was removed, roughly 850 cc of slightly serosanguineous fluid removed from the right pleural space. Fluid was sent for different diagnostic studies. Procedure was well was well tolerated. Chest x-ray showed no complications. MMODL / IJN: [id number] /
[2024-10-24] MEDS: FUROSEMIDE 10 MG/ML 4 ML VIAL IV SCH (00:32)
[2024-10-24 05:49] LABS: Appearance,BF Slightly Cloudy (Clear)
[2024-10-24 06:16] LABS: Glucose,Whole Blood 183 mg/dL (70-110)
[2024-10-24 06:27] LABS: LDH, Body Fluid Source Pleural Fluid; T. Protein, Body Fluid Source Pleural Fluid; Total Protein, Body Fluid 2960 mg/dL
[2024-10-24 08:00] LABS: Anisocytosis Slight; Basophils % (A) 0 %; Eosinophils # (A) 0.2 k/uL (0-0.7); Eosinophils % (A) 3 %; HCT 26.7 % (34.0-46.0); HGB 8.1 gm/dL (11.4-16.0); Hypochromasia Marked; Lymphocytes # (A) 0.5 k/uL (1.0-4.8); Lymphocytes % (A) 9 %; MCH 25.7 pg (25.0-35.0); MCHC 30.5 g/dL (31.0-37.0); MCV 84.3 fL (80.0-100.0); Mean Platelet Volume 8.1; Monocytes # (A) 0.3 k/uL (0-1.0); Monocytes % (A) 5 %; Neutrophils # (A) 4.7 k/uL (1.3-7.7); Neutrophils % (A) 81 %; Platelet Count 170 k/uL (150-450); Poikilocytosis Moderate; RBC 3.16 m/uL (3.80-5.40); WBC 5.8 k/uL (3.8-10.6)
[2024-10-24 08:11] LABS: African American GFR (CKD) 57 (>60 ml/min/1.73 sqM); Blood Urea Nitrogen 19 mg/dL (7-17); Calcium 8.3 mg/dL (8.4-10.2); Chloride 89 mmol/L (98-107); Glucose 137 mg/dL (74-99); Non-African American GFR(CKD) 49 (>60 ml/min/1.73 sqM); Potassium 3.3 mmol/L (3.5-5.1); Sodium 134 mmol/L (137-145)
[2024-10-24 08:18] LABS: Anion Gap 10 mmol/L
[2024-10-24 08:39] LABS: Carbon Dioxide 35 mmol/L (22-30)
[2024-10-24 11:56] LABS: Glucose,Whole Blood 270 mg/dL (70-110)
--- NOTE | 2024-10-24 12:23 | P.PN ---
Progress Note - Text Progress Note Date: 10/24/24 Surgery locums coverage Hospitalized for anemia with eliquis after valve replacement, had colonoscopy and polyp removal. No external sign of bleeding. Hgb up to 8.1 post transfusion The family reports today is day to start Eliquis
--- NOTE | 2024-10-24 15:20 | P.PN ---
Subjective Progress Note Date: 10/24/24 This is a 79-year-old female patient who is being seen in consultation for metabolic alkalosis. The patient was hospitalized on 10/08/2024 and the patient was in significant volume overload and she was also complaining of some shortness of breath and the patient's chest x-ray showed a left-sided pleural effusion. The patient had previous history of aortic valve placement and mitral valve replacement and tricuspid valve repair patient also has history of coronary artery disease and the patient has undergone previous stenting of the mid LAD and ostial PDA.The patient has a dual-chamber pacemaker insertion. She has paroxysmal atrial fibrillation, diabetes mellitus type 2, hypertension hyperlipidemia. The patient underwent her cardiac surgery at the [facility] back in May of this year. She has been [facility]. She is also known to have obstructive sleep apnea. I have seen her in the sleep center in the past and the patient has been maintained on the BiPAP pressure of 18 over 14 cm of water and she has been quite compliant with treatment. She is also on oxygen and she had progressive worsening in her hypoxemia along with increased shortness of breath. Based on that, the patient came into the hospital. EKG showed a paced rhythm. The chest x-ray showed cardiomegaly and bilateral pleural effusion worse on the left. The patient's hemoglobin was low at 6.2 and dropped down to 5.5. The patient was transfused with a total of 3 units of packed RBC during the current hospitalization the patient's hemoglobin is currently is at 8.2. A repeat echocardiogram was done during this current hospitalization on 10/09/2024 and the patient was found to have a normal LV with an ejection fraction of 6065%, severe pulm hypertension with a PA pressure of 56. The patient had mitral valve replacement with mild mitral stenosis and aortic valve replacement without any valvular abnormalities or regurgitation. No evidence of any pericardial effusion. During this current admission, the patient was subjected to diuresis the patient is currently on Lasix 40 mg IV every 8 hours and the patient is also on Zaroxolyn 5 mg p.o. daily and Aldactone 25 mg p.o. daily. I checked the fluid balance and over the past 4 days, the patient has been in the negative fluid balance of at least 8 L. There has been also steady increase in his serum bicarb. The patient is i nitial bicarb at the time of admission was 28 and currently is up to 42. I obtained a follow-up chest x-ray this morning and it showed overall stable findings consistent with CHF and pulm vessel congestion. There is a small to moderate-sized left-sided pleural effusion along with some adjacent atelectatic change. Hemoglobin is at 8.2 with a white cell count of 6.4 and a platelet count of 127. BUN is 19 with a creatinine of 1.09 and sodium levels at 136 and potassium levels at 3.1. She remains on Levemir insulin 20 units nightly and NovoLog sliding scale coverage. She is also on Toprol 50 mg p.o. twice daily and IV Protonix. She remains on aspirin. On 10/14/2024, the patient is being seen for a follow-up. The patient is doing well. She continues to diurese well. Fluid balance has been -2.5 L over the past 24 hours. Nevertheless, she continues to have significant amount of edema in the abdomen lower extremities involving the thighs. BUN is 18 with a creatinine of 1.22. The patient developed metabolic alkalosis. The serum bicarb was quite elevated and the patient received a total of 2 doses of Diamox and the serum bicarb is down to 37. Meanwhile, the diuretics have been modified and the patient is currently on Lasix 60 mg in the morning and 40 mg in the evening. The patient is also on Zaroxolyn 5 mg p.o. daily and Aldactone 25 mg p.o. daily. The patient is utilizing her BiPAP and once off the BiPAP, she is maintaining herself on oxygen at 5 L/min nasal cannula. No significant shortness of breath. No cough or sputum production. Edema still extensive. On 10/15/2024, the patient is being seen for a follow-up. Doing well. Still has edema lower extremities. Nevertheless, the fluid balance has been -2.5 L over the past 24 hours and if she is producing good urine output. She remains on Lasix 60 mg in the morning and 40 mg in the evenings p.o. and the patient remains on Aldactone 25 mg p.o. daily and Zaroxolyn 5 mg p.o. daily. She is utilizing her BiPAP routinely. No labs are available from today. Nevertheless, the patient is awake and alert and communicating. No other significant events overnight. On 10/16/2024, the patient remains clinically stable. No new complaints. Remains in negative fluid balance. She has developed some metabolic alkalosis with a serum bicarb of 37. BUN is 24 with a creatinine of 1.2. The white cell count is at 7.7 with a hemoglobin of 7.5. Continues to utilize her BiPAP on a regular basis. After BiPAP, she is on 5 L of oxygen nasal cannula. No new complaints. Diuretics include Lasix 60 mg morning and 40 mg the evening and the patient remains on Zaroxolyn and Aldactone. On 10/17/2024, the patient is sitting up in a chair and she is calm and comfortable and she reports improvement in her volume status and edema in lower extremities. She remains negative fluid balance. She continues to be on diu retics, a combination of Lasix, Aldactone and Zaroxolyn. Fluid balance is negative. BUN 25 with a creatinine of 1.1. Sodium levels at 133. No altered mentation. Using BiPAP and once off the BiPAP, the patient is on oxygen at 5 L/min nasal cannula. No cough. No sputum production. No fever or chills. No altered mentation. On 10/18/2024, the patient is being seen for a follow-up. Doing well. No specific complaints. Continues to diurese. Negative fluid balance. Maintain on BiPAP on and off during the day and continuously overnight. While off the BiPAP, the patient is on 5 L with a pulse ox of 99%. Hemoglobin is 8.1. Awaiting EGD and colonoscopy. The BUN is 25 with a creatinine of 1.23 and a serum bicarb is at 39 and sodium levels at 139. Remains on Lasix, Zaroxolyn and Aldactone. The patient is seen today October 19, 2024 in follow-up on the selective care unit. She is currently resting comfortably in bed. Awake and alert in no acute distress. She is maintaining O2 saturations in the 90s on 5 L/min per nasal cannula. She is utilizing BiPAP throughout the evenings and during the day while napping. She did undergo EGD today revealed no evidence of active bleeding. There is gastritis, duodenitis. Erosive esophagitis. White count 6.1. Hemoglobin 7.5. Platelets 156. Sodium 134. Potassium 3.7. Bicarb 40. BUN 25. Creatinine 1.15. Glucose 143. She remains on diuretics. The patient is seen today October 21, 2024 in follow-up on the [facility] care it. She is currently sitting up in bed. Awake and alert in no acute distress. Maintaining good O2 saturations in the 90s on 5 L/min per nasal cannula. She is utilizing her BiPap at night. Plan is for colonoscopy today. White count 5.5. Hemoglobin 7.6. Platelets 193. Sodium 134. Potassium 3.7. Bicarb 39. BUN 21. Creatinine 1.07. Glucose 95. She has been afebrile. Hemodynamically sta ble. The patient is seen today October 23, 2024 in follow-up on the selective care unit. She is currently sitting up in a chair at the bedside. Awake and alert in no acute distress. Receiving a unit of packed red blood cells. Denies any worsening shortness of breath, cough or congestion. She did have ongoing left pleural effusion. Ultrasound did show significant fluid. She underwent a left- sided thoracentesis today with Dr. Ledbetter. 850 mL of dark yellow fluid removed. She tolerated the procedure well. Chest x-ray showed improvement. No evidence of pneumothorax. She is maintaining O2 saturations in the high 90s on 5 L/min per nasal cannula. She is afebrile. Hemodynamically stable. White count 6.5. Hemoglobin 7.3. Platelets 171. Sodium 134. Potassium 3.7. Bicarb 38. BUN 20. Creatinine 1.13. Glucose 182. Eliquis remains on hold. The patient is seen today October 24, 2024 in follow-up on the selective care unit. She is currently sitting up in a chair. Awake and alert in no acute distress. Denies any worsening shortness of breath, cough or congestion. She d id undergo a left-sided thoracentesis yesterday. She remains on IV diuretics. White count 5.8. Hemoglobin 8.1. Platelets 170. Sodium 134. Potassium 3.8. Bicarb 35. BUN 19. Creatinine 1.08. Sodium 137. Objective - Vital Signs Vital signs: Vital Signs Temp 98.4 F 10/24/24 08:00 Pulse 68 10/24/24 08:00 Resp 16 10/24/24 08:00 BP 125/56 10/24/24 08:00 Pulse Ox 96 10/24/24 08:00 FiO2 Intake & Output 10/23/24 10/24/24 10/24/24 18:59 06:59 18:59 Intake Total 430 358 Output Total 1700 625 Balance 430 -1700 -267 Weight 118.4 kg Intake: Oral 120 358 Blood Product 310 Rc As-1 Unit 310 [id number] Output: Urine 1700 625 Other: Voiding Method Toilet Toilet Toilet - Exam GENERAL EXAM: Alert, pleasant 79-year-old female, up in a chair, on 5 L nasal cannula, in no apparent distress. HEAD: Normocephalic. EYES: Normal reaction of pupils, equal size. NOSE: Clear with pink turbinates. THROAT: No erythema or exudates. NECK: No masses, no JVD. CHEST: No chest wall deformity. LUNGS: Equal air entry with crackles in the left lung base. CVS: S1 and S2 normal with no audible murmur, regular rhythm. ABDOMEN: No hepatosplenomegaly, normal bowel sounds, no guarding or rigidity. SPINE: No scoliosis or deformity SKIN: No rashes CENTRAL NERVOUS SYSTEM: No focal deficits, tone is normal in all 4 extremities. EXTREMITIES: There is no peripheral edema. No clubbing, no cyanosis. Peripheral pulses are intact. - Labs CBC & Chem 7: 10/24/24 07:07 10/24/24 07:07 Labs: Abnormal Lab Results - Last 24 Hours (Table) 10/22/24 10/23/24 10/23/24 Range/Units 10:55 13:45 16:11 RBC (3.80-5.40) m/uL Hgb (11.4-16.0) gm/dL Hct (34.0-46.0) % MCHC (31.0-37.0) g/dL RDW (11.5-15.5) % Lymphocytes # (1.0-4.8) k/uL Sodium (137-145) mmol/L Potassium (3.5-5.1) mmol/L Chloride (98-107) mmol/L Carbon Dioxide (22-30) mmol/L BUN (7-17) mg/dL Creatinine (0.52-1.04) mg/dL Glucose (74-99) mg/dL POC Glucose (mg/dL) 309 H (70-110) mg/dL Calcium (8.4-10.2) mg/dL Fluid Appearance Slightly Cloudy A (Clear) Crossmatch See Detail 10/23/24 10/24/24 10/24/24 Range/Units 20:01 06:15 07:07 RBC 3.16 L (3.80-5.40) m/uL Hgb 8.1 L (11.4-16.0) gm/dL Hct 26.7 L (34.0-46.0) % MCHC 30.5 L (31.0-37.0) g/dL RDW 19.0 H (11.5-15.5) % Lymphocytes # 0.5 L (1.0-4.8) k/uL Sodium (137-145) mmol/L Potassium (3.5-5.1) mmol/L Chloride (98-107) mmol/L Carbon Dioxide (22-30) mmol/L BUN (7-17) mg/dL Creatinine (0.52-1.04) mg/dL Glucose (74-99) mg/dL POC Glucose (mg/dL) 250 H 183 H (70-110) mg/dL Calcium (8.4-10.2) mg/dL Fluid Appearance (Clear) Crossmatch 10/24/24 10/24/24 Range/Units 07:07 11:54 RBC (3.80-5.40) m/uL Hgb (11.4-16.0) gm/dL Hct (34.0-46.0) % MCHC (31.0-37.0) g/dL RDW (11.5-15.5) % Lymphocytes # (1.0-4.8) k/uL Sodium 134 L (137-145) mmol/L Potassium 3.3 L (3.5-5.1) mmol/L Chloride 89 L (98-107) mmol/L Carbon Dioxide 35 H (22-30) mmol/L BUN 19 H (7-17) mg/dL Creatinine 1.08 H (0.52-1.04) mg/dL Glucose 137 H (74-99) mg/dL POC Glucose (mg/dL) 270 H (70-110) mg/dL Calcium 8.3 L (8.4-10.2) mg/dL Fluid Appearance (Clear) Crossmatch Assessment and Plan Assessment: Acute on chronic dyspnea with signs of decompensated heart failure essentially due to diastolic heart failure and valvular heart disease. The patient had significant volume overload at time of admission and the patient has been diuresed with IV Lasix Left sided pleural effusion, status post thoracentesis on 10/23/2024 with 850 mL removed, cultures and cytology pending Acute on chronic hypoxic respiratory failure, currently on 5 L of oxygen by nasal cannula Obstructive sleep apnea maintained on BiPAP pressure of 18/14 cm of water, utilizing her on device from home Acute on chronic anemia, s/p transfusion with a total of 4 units of packed RBC. Hemoglobin is at 7.3. EGD October 19, 2024 revealed no active bleeding. Colonoscopy on 10/21/2024 revealed no active bleeding History of valvular heart disease and the patient is status post aortic valve replacement, mitral valve replacement and tricuspid valve repair in May 2024 performed at [facility] Dual-chamber pacemaker insertion, November 2017 Paroxysmal A-fib maintained on anticoagulation with Eliquis Coronary artery disease with previous coronary stenting of the LAD and ostial PDA Diabetes mellitus type 2 Hyperlipidemia Hypertension Severe pulmonary hypertension, group 2 Plan: The patient was seen and evaluated Chest x-rays, labs and medications reviewed Current hemoglobin 8.1 Thoracentesis performed yesterday Cytology and cultures pending Titrate down the FiO2 as tolerated Increase her activity as tolerated I have personally seen and examined the patient, performed the documentation and the assessment and plan as written. Number of minutes spent on the visit: 10 Dictation was produced using [employer] dictation software. Please excuse any grammatical, word or spelling errors.
--- NOTE | 2024-10-24 15:58 | P.PN ---
Subjective Progress Note Date: 10/24/24 79-year-old female patient who is on oxygen and she had progressive worsening in her hypoxemia along with increased shortness of breath. Based on that, the patient came into the hospital. EKG showed a paced rhythm. The chest x-ray showed cardiomegaly and bilateral pleural effusion worse on the left. The patient's hemoglobin was low at 6.2 and dropped down to 5.5. The patient was transfused with a total of 3 units of packed RBC during the current hospitalization the patient's hemoglobin is currently is at 8.2. A repeat echocardiogram was done during this current hospitalization on 10/09/2024 and the patient was found to have a normal LV with an ejection fraction of 6065%, severe pulm hypertension with a PA pressure of 56. The patient had mitral valve replacement with mild mitral stenosis and aortic valve replacement without any valvular abnormalities or regurgitation. No evidence of any pericardial effusion. During this current admission, the patient was subjected to diuresis the patient is currently on Lasix 40 mg IV every 8 hours and the patient is also on Zaroxolyn 5 mg p.o. daily and Aldactone 25 mg p.o. daily. I checked the fluid balance and over the past 4 days, the patient has been in the negative fluid balance of at least 8 L. There has been also steady increase in his serum bicarb. The patient is initial bicarb at the time of admission was 28 and currently is up to 42. I obtained a follow-up chest x-ray this morning and it showed overall stable findings consistent with CHF and pulm vessel congestion. There is a small to moderate-sized left-sided pleural effusion along with some adjacent atelectatic change. Hemoglobin is at 8.2 with a white cell count of 6.4 and a platelet count of 127. BUN is 19 with a creatinine of 1.09 and sodium levels at 136 and potassium levels at 3.1. She remains on Levemir insulin 20 units nightly and NovoLog sliding scale coverage. She is also on Toprol 50 mg p.o. twice daily and IV Protonix. She remains on aspirin. 24-hour interval change 10/24/2024 Patient is seen and evaluated in follow-up on the selective care unit. She is currently resting comfortably in bed. Awake and alert in no acute distress. She is maintaining O2 saturations in the 90s on 5 L/min per nasal cannula. She is utilizing BiPAP throughout the evenings and during the day while napping. Denies any worsening shortness of breath, cough or congestion. --She did undergo a left-sided thoracentesis yesterday with 850 cc of dark yellow fluid removed. She remains on IV diuretics. White count 5.8. Hemoglobin 8.1. Platelets 170. Sodium 134. Potassium 3.8. Bicarb 35. BUN 19. Creatinine 1.08. Sodium 137. Follow-up chest x-ray does not reveal any pneumothorax -- Hemoglobin is currently stable; with resume home anticoagulation today as recommended by surgery Objective - Vital Signs Vital signs: Vital Signs Temp 98.4 F 10/24/24 08:00 Pulse 68 10/24/24 08:00 Resp 16 10/24/24 08:00 BP 125/56 10/24/24 08:00 Pulse Ox 96 10/24/24 08:00 FiO2 Intake & Output 10/23/24 10/24/24 10/24/24 18:59 06:59 18:59 Intake Total 430 240 Output Total 1700 Balance 430 -1700 240 Weight 118.4 kg Intake: Oral 120 240 Blood Product 310 Rc As-1 Unit 310 [id number] Output: Urine 1700 Other: Voiding Method Toilet Toilet Toilet - Exam GENERAL EXAM: 79-year-old female in no distress on nasal cannula 5 L nasal cannula with O2 sat of 98% HEAD: Normocephalic. EYES: Normal reaction of pupils, equal size. NECK: No masses, no JVD. CHEST: No chest wall deformity. LUNGS: Equal air entry with no crackles, wheeze, rhonchi or dullness. Likely diminished breath sounds at the left base no crackles wheezes CVS: S1 and S2 normal with no audible murmur, regular rhythm. ABDOMEN: No hepatosplenomegaly, normal bowel sounds, no guarding or rigidity. CENTRAL NERVOUS SYSTEM: No focal deficits, tone is normal in all 4 extremities. EXTREMITIES: There is no peripheral edema. No clubbing, no cyanosis. Peripheral pulses are intact. - Labs CBC & Chem 7: 10/24/24 07:07 10/24/24 07:07 Labs: Abnormal Lab Results - Last 24 Hours (Table) 12/05/24 12/06/24 12/06/24 Range/Units 10:55 09:10 13:45 RBC (3.80-5.40) m/uL Hgb (11.4-16.0) gm/dL Hct (34.0-46.0) % MCHC (31.0-37.0) g/dL RDW (11.5-15.5) % Lymphocytes # (1.0-4.8) k/uL Sodium (137-145) mmol/L Potassium (3.5-5.1) mmol/L Chloride (98-107) mmol/L Carbon Dioxide (22-30) mmol/L BUN (7-17) mg/dL Creatinine (0.52-1.04) mg/dL Glucose (74-99) mg/dL POC Glucose (mg/dL) (70-110) mg/dL Calcium (8.4-10.2) mg/dL Lactate Dehydrogenase 393 H (120-246) U/L Fluid Appearance Slightly Cloudy A (Clear) Crossmatch See Detail 10/23/24 10/23/24 10/24/24 Range/Units 16:11 20:01 06:15 RBC (3.80-5.40) m/uL Hgb (11.4-16.0) gm/dL Hct (34.0-46.0) % MCHC (31.0-37.0) g/dL RDW (11.5-15.5) % Lymphocytes # (1.0-4.8) k/uL Sodium (137-145) mmol/L Potassium (3.5-5.1) mmol/L Chloride (98-107) mmol/L Carbon Dioxide (22-30) mmol/L BUN (7-17) mg/dL Creatinine (0.52-1.04) mg/dL Glucose (74-99) mg/dL POC Glucose (mg/dL) 309 H 250 H 183 H (70-110) mg/dL Calcium (8.4-10.2) mg/dL Lactate Dehydrogenase (120-246) U/L Fluid Appearance (Clear) Crossmatch 10/24/24 10/24/24 10/24/24 Range/Units 07:07 07:07 11:54 RBC 3.16 L (3.80-5.40) m/uL Hgb 8.1 L (11.4-16.0) gm/dL Hct 26.7 L (34.0-46.0) % MCHC 30.5 L (31.0-37.0) g/dL RDW 19.0 H (11.5-15.5) % Lymphocytes # 0.5 L (1.0-4.8) k/uL Sodium 134 L (137-145) mmol/L Potassium 3.3 L (3.5-5.1) mmol/L Chloride 89 L (98-107) mmol/L Carbon Dioxide 35 H (22-30) mmol/L BUN 19 H (7-17) mg/dL Creatinine 1.08 H (0.52-1.04) mg/dL Glucose 137 H (74-99) mg/dL POC Glucose (mg/dL) 270 H (70-110) mg/dL Calcium 8.3 L (8.4-10.2) mg/dL Lactate Dehydrogenase (120-246) U/L Fluid Appearance (Clear) Crossmatch Assessment and Plan Assessment: Acute on chronic anemia, status post 3 units packed RBCs, status post EGD reporting blood found in the posterior oropharynx ,no active bleeding;gastroesophageal reflux disease with erosive esophagitis,gastritis, duo denitis, duodenal polyp. Acute on chronic CHF, diastolic dysfunction Acute on chronic hypoxic respiratory failure, secondary to the above Moderate to severe pulmonary hypertension Diabetes mellitus type 2 History of aortic valve replacement, mitral valve replacement and tricuspid valve repair May 2024-[facility] Paroxysmal atrial fibrillation, anticoagulated with Eliquis CAD, history of stent Dual-chamber pacemaker, [facility] [place],11/2017 Hypertension Hyperlipidemia Plan: Continue on current medication regimen ,monitoring and symptomatic treatment. PHILLIPOLissett remains on hold, colonoscopy pending. close monitoring of hemoglobin, renal function with repeat labs ordered for a.m.
[2024-10-24 16:25] LABS: Glucose,Whole Blood 306 mg/dL (70-110)
[2024-10-24 20:19] LABS: Glucose,Whole Blood 273 mg/dL (70-110)
[2024-10-24] MEDS: APIXABAN 5 MG TAB PO SCH (20:20)
[2024-10-25 06:18] LABS: Glucose,Whole Blood 147 mg/dL (70-110)
[2024-10-25 09:14] LABS: Anisocytosis Slight; Basophils % (A) 0 %; Eosinophils # (A) 0.2 k/uL (0-0.7); Eosinophils % (A) 2 %; HCT 26.2 % (34.0-46.0); HGB 8.2 gm/dL (11.4-16.0); Hypochromasia Marked; Lymphocytes # (A) 0.6 k/uL (1.0-4.8); Lymphocytes % (A) 8 %; MCH 26.5 pg (25.0-35.0); MCHC 31.1 g/dL (31.0-37.0); MCV 85.3 fL (80.0-100.0); Mean Platelet Volume 7.5; Monocytes # (A) 0.4 k/uL (0-1.0); Monocytes % (A) 5 %; Neutrophils # (A) 6.2 k/uL (1.3-7.7); Neutrophils % (A) 82 %; Platelet Count 180 k/uL (150-450); Poikilocytosis Slight; RBC 3.07 m/uL (3.80-5.40); RDW 19.4 % (11.5-15.5); WBC 7.6 k/uL (3.8-10.6)
--- NOTE | 2024-10-25 09:15 | P.PN ---
Subjective Progress Note Date: 10/25/24 patient is stable. There is no signs of GI bleed. Her Hemoccult was a 0.2. On exam vital signs were stable. Abdomen soft. Patient will be observed. Objective - Vital Signs Vital signs: Vital Signs Temp 98.9 F 10/25/24 08:00 Pulse 68 10/25/24 08:00 Resp 16 10/25/24 08:00 BP 101/49 10/25/24 08:00 Pulse Ox 95 10/25/24 08:00 FiO2 Intake & Output 10/24/24 10/25/24 10/25/24 18:59 06:59 18:59 Intake Total 598 240 Output Total 625 400 Balance -27 -400 240 Weight 118.1 kg Intake: Oral 598 240 Output: Urine 625 400 Other: Voiding Method Toilet Toilet - Labs CBC & Chem 7: 10/25/24 08:08 10/24/24 07:07 Labs: Abnormal Lab Results - Last 24 Hours (Table) 10/24/24 10/24/24 10/24/24 Range/Units 11:54 16:23 20:18 RBC (3.80-5.40) m/uL Hgb (11.4-16.0) gm/dL Hct (34.0-46.0) % RDW (11.5-15.5) % Lymphocytes # (1.0-4.8) k/uL POC Glucose (mg/dL) 270 H 306 H 273 H (70-110) mg/dL 10/25/24 10/25/24 Range/Units 06:16 08:08 RBC 3.07 L (3.80-5.40) m/uL Hgb 8.2 L (11.4-16.0) gm/dL Hct 26.2 L (34.0-46.0) % RDW 19.4 H (11.5-15.5) % Lymphocytes # 0.6 L (1.0-4.8) k/uL POC Glucose (mg/dL) 147 H (70-110) mg/dL Microbiology - Last 24 Hours (Table) 10/23/24 13:45 Gram Stain - Preliminary Pleural Fluid
[2024-10-25 09:32] LABS: African American GFR (CKD) 54 (>60 ml/min/1.73 sqM); Blood Urea Nitrogen 20 mg/dL (7-17); Calcium 8.4 mg/dL (8.4-10.2); Chloride 88 mmol/L (98-107); Glucose 125 mg/dL (74-99); Non-African American GFR(CKD) 46 (>60 ml/min/1.73 sqM); Potassium 3.6 mmol/L (3.5-5.1); Sodium 133 mmol/L (137-145)
[2024-10-25 09:39] LABS: Anion Gap 10 mmol/L
[2024-10-25 09:44] LABS: Carbon Dioxide 35 mmol/L (22-30)
[2024-10-25 11:44] LABS: Glucose,Whole Blood 240 mg/dL (70-110)
--- NOTE | 2024-10-25 15:17 | P.PN ---
Subjective Progress Note Date: 10/25/24 Principal diagnosis: Acute on chronic diastolic congestive heart failure, acute on chronic hypoxic respiratory failure with history of obstructive sleep apnea syndrome and valvular heart disease. This is a 79-year-old female patient who is being seen in consultation for metabolic alkalosis. The patient was hospitalized on 10/08/2024 and the patient was in significant volume overload and she was also complaining of some shortness of breath and the patient's chest x-ray showed a left-sided pleural effusion. The patient had previous history of aortic valve placement and mitral valve replacement and tricuspid valve repair patient also has history of coronary artery disease and the patient has undergone previous stenting of the mid LAD and ostial PDA.The patient has a dual-chamber pacemaker insertion. She has paroxysmal atrial fibrillation, diabetes mellitus type 2, hypertension hyperlipidemia. The patient underwent her cardiac surgery at the [facility] back in May of this year. She has been [facility]. She is also known to have obstructive sleep apnea. I have seen her in the sleep center in the past and the patient has been maintained on the BiPAP pressure of 18 over 14 cm of water and she has been quite compliant with treat ent. She is also on oxygen and she had progressive worsening in her hypoxemia along with increased shortness of breath. Based on that, the patient came into the hospital. EKG showed a paced rhythm. The chest x-ray showed cardiomegaly and bilateral pleural effusion worse on the left. The patient's hemoglobin was low at 6.2 and dropped down to 5.5. The patient was transfused with a total of 3 units of packed RBC during the current hospitalization the patient's hemoglobin is currently is at 8.2. A repeat echocardiogram was done during this current hospitalization on 10/09/2024 and the patient was found to have a normal LV with an ejection fraction of 6065%, severe pulm hypertension with a PA pressure of 56. The patient had mitral valve replacement with mild mitral stenosis and aortic valve replacement without any valvular abnormalities or regurgitation. No evidence of any pericardial effusion. During this current admission, the patient was subjected to diuresis the patient is currently on Lasix 40 mg IV every 8 hours and the patient is also on Zaroxolyn 5 mg p.o. daily and Aldactone 25 mg p.o. daily. I checked the fluid balance and over the past 4 days, the patient has been in the negative fluid balance of at least 8 L. There has been also steady increase in his serum bicarb. The patient is initial bicarb at the time of admission was 28 and currently is up to 42. I obtained a follow-up chest x-ray this morning and it showed overall stable findings consistent with CHF and pulm vessel congestion. There is a small to moderate-sized left-sided pleural effusion along with some adjacent atelectatic change. Hemoglobin is at 8.2 with a white cell count of 6.4 and a platelet count of 127. BUN is 19 with a creatinine of 1.09 and sodium levels at 136 and potassium levels at 3.1. She remains on Levemir insulin 20 units nightly and NovoLog sliding scale coverage. She is also on Toprol 50 mg p.o. twice daily and IV Protonix. She remains on aspirin. On 10/14/2024, the patient is being seen for a follow-up. The patient is doing well. She continues to diurese well. Fluid balance has been -2.5 L over the past 24 hours. Nevertheless, she continues to have significant amount of edema in the abdomen lower extremities involving the thighs. BUN is 18 with a c reatinine of 1.22. The patient developed metabolic alkalosis. The serum bicarb was quite elevated and the patient received a total of 2 doses of Diamox and the serum bicarb is down to 37. Meanwhile, the diuretics have been modified and the patient is currently on Lasix 60 mg in the morning and 40 mg in the evening. The patient is also on Zaroxolyn 5 mg p.o. daily and Aldactone 25 mg p.o. daily. The patient is utilizing her BiPAP and once off the BiPAP, she is maintaining herself on oxygen at 5 L/min nasal cannula. No significant shortness of breath. No cough or sputum production. Edema still extensive. On 10/15/2024, the patient is being seen for a follow-up. Doing well. Still has edema lower extremities. Nevertheless, the fluid balance has been -2.5 L over the past 24 hours and if she is producing good urine output. She remains on Lasix 60 mg in the morning and 40 mg in the evenings p.o. and the patient remains on Aldactone 25 mg p.o. daily and Zaroxolyn 5 mg p.o. daily. She is utilizing her BiPAP routinely. No labs are available from today. Nevertheless, the patient is awake and alert and communicating. No other significant events overnight. On 10/16/2024, the patient remains clinically stable. No new complaints. Remains in negative fluid balance. She has developed some metabolic alkalosis with a serum bicarb of 37. BUN is 24 with a creatinine of 1.2. The white cell count is at 7.7 with a hemoglobin of 7.5. Continues to utilize her BiPAP on a regular basis. After BiPAP, she is on 5 L of oxygen nasal cannula. No new complaints. Diuretics include Lasix 60 mg morning and 40 mg the evening and the patient remains on Zaroxolyn and Aldactone. On 10/17/2024, the patient is sitting up in a chair and she is calm and comfortable and she reports improvement in her volume status and edema in lower extremities. She remains negative fluid balance. She continues to be on diuretics, a combination of Lasix, Aldactone and Zaroxolyn. Fluid balance is n egative. BUN 25 with a creatinine of 1.1. Sodium levels at 133. No altered mentation. Using BiPAP and once off the BiPAP, the patient is on oxygen at 5 L/min nasal cannula. No cough. No sputum production. No fever or chills. No altered mentation. On 10/18/2024, the patient is being seen for a follow-up. Doing well. No specific complaints. Continues to diurese. Negative fluid balance. Maintain on BiPAP on and off during the day and continuously overnight. While off the BiPAP, the patient is on 5 L with a pulse ox of 99%. Hemoglobin is 8.1. Awaiting EGD and colonoscopy. The BUN is 25 with a creatinine of 1.23 and a serum bicarb is at 39 and sodium levels at 139. Remains on Lasix, Zaroxolyn and Aldactone. The patient is seen today October 19, 2024 in follow-up on the selective care unit. She is currently resting comfortably in bed. Awake and alert in no acute distress. She is maintaining O2 saturations in the 90s on 5 L/min per nasal cannula. She is utilizing BiPAP throughout the evenings and during the day while napping. She did undergo EGD today revealed no evidence of active bleeding. There is gastritis, duodenitis. Erosive esophagitis. White count 6.1. Hemoglobin 7.5. Platelets 156. Sodium 134. Potassium 3.7. Bicarb 40. BUN 25. Creatinine 1.15. Glucose 143. She remains on diuretics. Patient today on 10/20/2024, feeling better, her EGD is basically nondiagnostic, patient is now scheduled to have colonoscopy. She was found to have gastritis duodenitis and erosive gastritis. Clinically the patient is feeling better, not in any distress, sitting at the bedside chair, denies any shortness of breath. Continues to have 5 L nasal cannula however her O2 saturation 100% her blood pressure is stable 105/53. And she is afebrile. WBC count is 6 hemoglobin 7.5, unchanged from yesterday and it was 7.5 hemoglobin was 8.1 on 10/18. Patient den ies any symptoms to suggest active bleeding Reevaluate today on 10/21/2024, patient is doing fairly well, she had colonoscopy and she had polyps removed, there was no evidence of active bleeding. Patient is being considered for discharge, follow-up chest x-ray showed basically the same continues to have left pleural effusion, hence I recommended increasing the Lasix dose she is presently on. Apparently this was cut down since admission but clinically no major change hemoglobin is holding she has a hemoglobin of 7.2 WBC is 5.9, electrolytes are normal renal profile showed a BUN of 20 creatinine 1.21 patient is now on Lasix 60 mg in the morning and 40 mg in the afternoon. This was adjusted by cardiology nonetheless her chest x-ray continues to show evidence of mild pulmonary edema with left pleural effusion patient is known to have history of aortic valve replacement mitral valve replacement and tricuspid valve repair at the [facility] in May of 2024. And she does have moderat e to severe pulmonary hypertension She is chronically on home O2 Patient was seen today on 10/25/2024, doing well, feeling much better, breathing easier, hemoglobin is stable, no evidence of active blood loss, pulmonary xavier hardly any pulmonary symptoms no cough no wheezing no shortness of breath, her shortness of breath improved significantly since she had her thoracentesis. Her pleural effusion showed relatively low LDH but her protein was a bit elevated at 2960, baseline serum total protein is 6.7 hence I believe the fluid is basically transudative in nature and it is consistent with fluid of congestive heart failure Objective - Vital Signs Vital signs: Vital Signs Temp 98.2 F 10/25/24 12:00 Pulse 60 10/25/24 12:00 Resp 14 10/25/24 12:00 BP 99/50 10/25/24 12:00 Pulse Ox 99 10/25/24 12:00 FiO2 Intake & Output 10/24/24 10/25/24 10/25/24 18:59 06:59 18:59 Intake Total 598 358 Output Total 625 400 Balance -27 -400 358 Weight 118.1 kg Intake: Oral 598 358 Output: Urine 625 400 Other: Voiding Method Toilet Toilet Toilet - Exam GENERAL EXAM: 79-year-old female in no distress on nasal cannula 5 L nasal cannula with O2 sat of 99 % HEAD: Normocephalic. EYES: Normal reaction of pupils, equal size. NOSE: Clear with pink turbinates. THROAT: No erythema or exudates. NECK: No masses, no JVD. CHEST: No chest wall deformity. LUNGS: Equal air entry with no crackles, wheeze, rhonchi or dullness. CVS: S1 and S2 normal with no audible murmur, regular rhythm. ABDOMEN: No hepatosplenomegaly, normal bowel sounds, no guarding or rigidity. SKIN: No rashes CENTRAL NERVOUS SYSTEM: No focal deficits, tone is normal in all 4 extremities. EXTREMITIES: There is no peripheral edema. No clubbing, no cyanosis. Rain pheral pulses are intact. - Labs CBC & Chem 7: 10/25/24 08:08 10/25/24 08:08 Labs: Abnormal Lab Results - Last 24 Hours (Table) 10/24/24 10/24/24 10/25/24 Range/Units 16:23 20:18 06:16 RBC (3.80-5.40) m/uL Hgb (11.4-16.0) gm/dL Hct (34.0-46.0) % RDW (11.5-15.5) % Lymphocytes # (1.0-4.8) k/uL Sodium (137-145) mmol/L Chloride (98-107) mmol/L Carbon Dioxide (22-30) mmol/L BUN (7-17) mg/dL Creatinine (0.52-1.04) mg/dL Glucose (74-99) mg/dL POC Glucose (mg/dL) 306 H 273 H 147 H (70-110) mg/dL 10/25/24 10/25/24 10/25/24 Range/Units 08:08 08:08 11:42 RBC 3.07 L (3.80-5.40) m/uL Hgb 8.2 L (11.4-16.0) gm/dL Hct 26.2 L (34.0-46.0) % RDW 19.4 H (11.5-15.5) % Lymphocytes # 0.6 L (1.0-4.8) k/uL Sodium 133 L (137-145) mmol/L Chloride 88 L (98-107) mmol/L Carbon Dioxide 35 H (22-30) mmol/L BUN 20 H (7-17) mg/dL Creatinine 1.14 H (0.52-1.04) mg/dL Glucose 125 H (74-99) mg/dL POC Glucose (mg/dL) 240 H (70-110) mg/dL Microbiology - Last 24 Hours (Table) 10/23/24 13:45 Gram Stain - Preliminary Pleural Fluid Body Fluid Culture - Preliminary Assessment and Plan Assessment: Impression Acute on chronic dyspnea with signs of decompensated heart failure essentially due to diastolic heart failure and valvular heart disease. Remains on diuretics, clinically improving. Chest x-ray is basically unchanged Acute on chronic hypoxic respiratory failure, currently on 5 L of oxygen by nasal cannula Obstructive sleep apnea maintained on BiPAP pressure of 18/14 cm of water, utilizing her on device from home Acute on chronic anemia, s/p transfusion with a total of 3 units of packed RBC. Hemoglobin is at 7.5. EGD today October 19, 2024 revealed no active bleeding History of valvular heart disease and the patient is status post aortic valve replacement, mitral valve replacement and tricuspid valve repair in May 2024 performed at [facility] Dual-chamber pacemaker insertion, November 2017 Paroxysmal A-fib maintained on anticoagulation with Eliquis Coronary artery disease with previous coronary stenting of the LAD and ostial PDA Diabetes mellitus type 2 Hyperlipidemia Hypertension Severe pulmonary hypertension, group 2 Metabolic alkalosis developed during this current hospital stay due to aggressive diuresis and the patient has been increased 8 to 9 L negative fluid balance with ongoing edema. The patient was given 2 doses of Diamox and the metabolic alkalosis improved. Recommendation: Continue diuretics, pleural effusion turned out to be transudative in nature Continue to monitor hemoglobin Cytology of the pleural effusion is pending but very unlikely to be malignant Continue oxygen and titrate accordingly Increase activity Consider discharge planning once cleared by other consultants Will continue to follow Time with Patient: Less than 30
--- NOTE | 2024-10-25 16:05 | P.PN ---
Subjective Progress Note Date: 10/25/24 79-year-old female patient who is on oxygen and she had progressive worsening in her hypoxemia along with increased shortness of breath. Based on that, the patient came into the hospital. EKG showed a paced rhythm. The chest x-ray showed cardiomegaly and bilateral pleural effusion worse on the left. The patient's hemoglobin was low at 6.2 and dropped down to 5.5. The patient was transfused with a total of 3 units of packed RBC during the current hospitalization the patient's hemoglobin is currently is at 8.2. A repeat echocardiogram was done during this current hospitalization on 10/09/2024 and the patient was found to have a normal LV with an ejection fraction of 6065%, severe pulm hypertension with a PA pressure of 56. The patient had mitral valve replacement with mild mitral stenosis and aortic valve replacement without any valvular abnormalities or regurgitation. No evidence of any pericardial effusion. During this current admission, the patient was subjected to diuresis the patient is currently on Lasix 40 mg IV every 8 hours and the patient is also on Zaroxolyn 5 mg p.o. daily and Aldactone 25 mg p.o. daily. I checked the fluid balance and over the past 4 days, the patient has been in the negative fluid balance of at least 8 L. There has been also steady increase in his serum bicarb. The patient is initial bicarb at the time of admission was 28 and currently is up to 42. I obtained a follow-up chest x-ray this morning and it showed overall stable findings consistent with CHF and pulm vessel congestion. There is a small to moderate-sized left-sided pleural effusion along with some adjacent atelectatic change. Hemoglobin is at 8.2 with a white cell count of 6.4 and a platelet count of 127. BUN is 19 with a creatinine of 1.09 and sodium levels at 136 and potassium levels at 3.1. She remains on Levemir insulin 20 units nightly and NovoLog sliding scale coverage. She is also on Toprol 50 mg p.o. twice daily and IV Protonix. She remains on aspirin. 24-hour interval change 10/24/2024 Patient is seen and evaluated in follow-up on the selective care unit. She is currently resting comfortably in bed. Awake and alert in no acute distress. She is maintaining O2 saturations in the 90s on 5 L/min per nasal cannula. She is utilizing BiPAP throughout the evenings and during the day while napping. Denies any worsening shortness of breath, cough or congestion. --She did undergo a left-sided thoracentesis yesterday with 850 cc of dark yellow fluid removed. She remains on IV diuretics. White count 5.8. Hemoglobin 8.1. Platelets 170. Sodium 134. Potassium 3.8. Bicarb 35. BUN 19. Creatinine 1.08. Sodium 137. Follow-up chest x-ray does not reveal any pneumothorax -- Hemoglobin is currently stable; with resume home anticoagulation today as recommended by surgery 10/25/2024 -Patient is seen and evaluated in room with daughter at bedside; sitting up in a bedside chair; reports she is doing well, feeling much better, breathing easier, hemoglobin is stable, no evidence of active blood loss, pulmonary xavier hardly any pulmonary symptoms no cough no wheezing no shortness of breath, her shortness of breath improved significantly since she had her thoracentesis. - Her pleural effusion showed relatively low LDH but her protein was a bit elevated at 2960, baseline serum total protein is 6.7; transudative in nature and it is consistent with fluid of congestive heart failure Pulmonary recommending to continue with diuretics for pleural effusion Patient has been resumed on anticoagulation; hemoglobin staying stable Objective - Vital Signs Vital signs: Vital Signs Temp 98.9 F 10/25/24 08:00 Pulse 68 10/25/24 08:00 Resp 16 10/25/24 08:00 BP 101/49 10/25/24 08:00 Pulse Ox 95 10/25/24 08:00 FiO2 Intake & Output 10/24/24 10/25/24 10/25/24 18:59 06:59 18:59 Intake Total 598 240 Output Total 625 400 Balance -27 -400 240 Weight 118.1 kg Intake: Oral 598 240 Output: Urine 625 400 Other: Voiding Method Toilet Toilet - Exam GENERAL EXAM: 79-year-old female in no distress on nasal cannula 5 L nasal ca nnula with O2 sat of 98% HEAD: Normocephalic. EYES: Normal reaction of pupils, equal size. NECK: No masses, no JVD. CHEST: No chest wall deformity. LUNGS: Equal air entry with no crackles, wheeze, rhonchi or dullness. Likely diminished breath sounds at the left base no crackles wheezes CVS: S1 and S2 normal with no audible murmur, regular rhythm. ABDOMEN: No hepatosplenomegaly, normal bowel sounds, no guarding or rigidity. CENTRAL NERVOUS SYSTEM: No focal deficits, tone is normal in all 4 extremities. EXTREMITIES: There is no peripheral edema. No clubbing, no cyanosis. Peripheral pulses are intact. - Labs CBC & Chem 7: 10/25/24 08:08 10/25/24 08:08 Labs: Abnormal Lab Results - Last 24 Hours (Table) 10/24/24 10/24/24 10/24/24 Range/Units 11:54 16:23 20:18 RBC (3.80-5.40) m/uL Hgb (11.4-16.0) gm/dL Hct (34.0-46.0) % RDW (11.5-15.5) % Lymphocytes # (1.0-4.8) k/uL Sodium (137-145) mmol/L Chloride (98-107) mmol/L Carbon Dioxide (22-30) mmol/L BUN (7-17) mg/dL Creatinine (0.52-1.04) mg/dL Glucose (74-99) mg/dL POC Glucose (mg/dL) 270 H 306 H 273 H (70-110) mg/dL 10/25/24 10/25/24 10/25/24 Range/Units 06:16 08:08 08:08 RBC 3.07 L (3.80-5.40) m/uL Hgb 8.2 L (11.4-16.0) gm/dL Hct 26.2 L (34.0-46.0) % RDW 19.4 H (11.5-15.5) % Lymphocytes # 0.6 L (1.0-4.8) k/uL Sodium 133 L (137-145) mmol/L Chloride 88 L (98-107) mmol/L Carbon Dioxide 35 H (22-30) mmol/L BUN 20 H (7-17) mg/dL Creatinine 1.14 H (0.52-1.04) mg/dL Glucose 125 H (74-99) mg/dL POC Glucose (mg/dL) 147 H (70-110) mg/dL Microbiology - Last 24 Hours (Table) 10/23/24 13:45 Gram Stain - Preliminary Pleural Fluid Body Fluid Culture - Preliminary Assessment and Plan Assessment: Acute on chronic anemia, status post 3 units packed RBCs, status post EGD reporting blood found in the posterior oropharynx ,no active bleeding;gastroesophageal reflux disease with erosive esophagitis,gastritis, duodenitis, duodenal polyp. Acute on chronic CHF, diastolic dysfunction Acute on chronic hypoxic respiratory failure, secondary to the above Moderate to severe pulmonary hypertension Diabetes mellitus type 2 History of aortic valve replacement, mitral valve replacement and tricuspid valve repair May 2024-[facility] Paroxysmal atrial fibrillation, anticoagulated with Eliquis CAD, history of stent Dual-chamber pacemaker, [facility],11/2017 Hypertension Hyperlipidemia Plan: Continue on current medication regimen ,monitoring and symptomatic treatment. NPO, Nayeliquis remains on hold, colonoscopy pending. close monitoring of hemoglobin, renal function with repeat labs ordered for a.m.
[2024-10-25 16:50] LABS: Glucose,Whole Blood 275 mg/dL (70-110)
[2024-10-25 20:00] LABS: Glucose,Whole Blood 307 mg/dL (70-110)
[2024-10-26 06:12] LABS: Glucose,Whole Blood 144 mg/dL (70-110)
[2024-10-26 07:59] LABS: Anisocytosis Slight; Basophils % (A) 0 %; Eosinophils # (A) 0.2 k/uL (0-0.7); Eosinophils % (A) 3 %; HCT 26.4 % (34.0-46.0); Hypochromasia Marked; Lymphocytes # (A) 0.5 k/uL (1.0-4.8); Lymphocytes % (A) 9 %; MCHC 30.5 g/dL (31.0-37.0); MCV 85.2 fL (80.0-100.0); Mean Platelet Volume 7.6; Monocytes # (A) 0.4 k/uL (0-1.0); Monocytes % (A) 6 %; Neutrophils # (A) 4.9 k/uL (1.3-7.7); Neutrophils % (A) 80 %; Platelet Count 187 k/uL (150-450); RDW 19.3 % (11.5-15.5); WBC 6.1 k/uL (3.8-10.6)
[2024-10-26 08:17] LABS: African American GFR (CKD) 52 (>60 ml/min/1.73 sqM); Blood Urea Nitrogen 22 mg/dL (7-17); Calcium 8.3 mg/dL (8.4-10.2); Chloride 88 mmol/L (98-107); Glucose 111 mg/dL (74-99); Non-African American GFR(CKD) 45 (>60 ml/min/1.73 sqM); Potassium 3.3 mmol/L (3.5-5.1); Sodium 135 mmol/L (137-145)
[2024-10-26 08:24] LABS: Anion Gap 9 mmol/L
[2024-10-26 08:26] LABS: Carbon Dioxide 38 mmol/L (22-30)
[2024-10-26 11:25] LABS: Glucose,Whole Blood 272 mg/dL (70-110)
--- NOTE | 2024-10-26 11:33 | P.PN ---
Subjective Progress Note Date: 10/26/24 CHIEF COMPLAINT: GI bleed HISTORY OF PRESENT ILLNESS: Surgical service following regards to patient's GI bleed. Patient is status post colonoscopy with findings of a tubular adenoma at the hepatic flexure and cecum, sigmoid diverticulosis, internal hemorrhoids and melanosis coli. EGD reporting erosive esophagitis and gastritis. Patient denies any blood in her stools or melanotic stools throughout the weekend. Her Eliquis was restarted on Saturday. Patient denies any abdominal pain. Denies any nausea or vomiting. Hemoglobin stable at 8.0. She did have a thoracentesis for the pleural effusion on Saturday with pulmonary service. PHYSICAL EXAM: VITAL SIGNS: Reviewed GENERAL: Well-developed in no acute distress. HEENT: No sclera icterus. Extraocular movements grossly intact. Moist buccal mucosa. Head is atraumatic, normocephalic. Hears conversational speech. No nasal drainage. NECK: Supple without lymphadenopathy. CHEST: Non-labored respirations and equal bilateral excursions. CARDIOVASCULAR: Palpable 2+ radial pulses. ABDOMEN: Soft. Nondistended. Nontender. MUSCULOSKELETAL: No clubbing or cyanosis. NEUROLOGIC: No focal or lateralizing signs. Cranial nerves II through XII grossly intact. PSYCH: Appropriate affect. Alert and oriented to person, place and time. SKIN: Well perfused. Good skin turgor. ASSESSMENT: 1. Gastrointestinal bleed resolved status post EGD and colonoscopy 2. Status post blood transfusion 3. Congestive heart failure with diastolic dysfunction 4. History of triple valve replacement 5. Acute blood loss anemia PLAN: -Recommend patient follow-up with GI service for capsule endoscopy outpatient -Recommend that patient follows up with her director of speech pathology out of [facility] where she has had her heart valve surgery -Continue PPI for esophagitis and gastritis -Patient can be discharge from surgical standpoint when medically cleared Physician Electrophysiology Tech note has been reviewed by physician. Signing provider agrees with the documented findings, assessment, and plan of care. As above. Please see additional documentation below. CHIEF COMPLAINT: GI bleed HISTORY OF PRESENT ILLNESS: The patient is a 79-year-old female who presents to the hospital with acute anemia. Upper and lower endoscopies were performed with finding of adenoma of the colon. Has no further signs of bleeding. No reports of abdominal pain. She is having bowel movements without blood. ROS: No reports of nausea and vomiting. Bowel movement without blood. No fevers or chills. No new chest pain. No productive sputum PHYSICAL EXAM: VITAL SIGNS: Reviewed CONSTITUTIONAL: Well developed and in no acute distress. EYES: Conjuctivae without sclera icterus. Extraocular movements grossly intact. HEAD, EARS, NOSE, THROAT: Moist buccal mucosa. Head is atraumatic, normocephalic. Hears conversational speech. No nasal drainage. RESPIRATORY: Non-labored respirations and equal bilateral excursions. CARDIOVASCULAR: Palpable 2+ radial pulses. ABDOMEN: Obese. Nontender. MUSCULOSKELETAL: No gross deformity of the lower extremities noted. No clubbing. No cyanosis. SKIN: Good skin turgor. Well perfused. NEUROLOGIC: Cranial nerves II through XII grossly intact. No focal or lateralizing signs. PSYCH: Appropriate affect. Alert and oriented to person, place and time. CLINICAL LABS: Reviewed. Hemoglobin trending upward 7.2-8.0. ASSESSMENT: 1. Gastrointestinal bleed 2. Status post blood transfusion 3. Congestive heart failure with diastolic dysfunction 4. History of triple valve replacement 5. Acute blood loss anemia 6. Obesity due to excess calories, BMI 43.1 7. Chronic anticoagulant use 8. Pleural effusion, new PLAN: 1. Due to patient's complex cardiopulmonary history, follow-up with [facility] regarding management of her valvular heart disease. 2. Outpatient capsule endoscopy due to acute anemia on presentation to the hospital now improved. 3. May dischargewhen medically stable. Objective - Vital Signs Vital signs: Vital Signs Temp 98.2 F 10/26/24 08:00 Pulse 60 10/26/24 08:00 Resp 14 10/26/24 08:00 BP 95/59 10/26/24 08:00 Pulse Ox 99 10/26/24 08:00 FiO2 Intake & Output 10/25/24 10/26/24 10/26/24 18:59 06:59 18:59 Intake Total 476 360 Output Total 850 Balance 476 -850 360 Weight 113 kg Intake: Oral 476 360 Output: Urine 850 Other: Voiding Method Toilet Toilet Toilet - Labs CBC & Chem 7: 10/29/24 11:25 10/28/24 09:29 Labs: Abnormal Lab Results - Last 24 Hours (Table) 10/25/24 10/25/24 10/25/24 Range/Units 11:42 16:48 19:58 RBC (3.80-5.40) m/uL Hgb (11.4-16.0) gm/dL Hct (34.0-46.0) % MCHC (31.0-37.0) g/dL RDW (11.5-15.5) % Lymphocytes # (1.0-4.8) k/uL Sodium (137-145) mmol/L Potassium (3.5-5.1) mmol/L Chloride (98-107) mmol/L Carbon Dioxide (22-30) mmol/L BUN (7-17) mg/dL Creatinine (0.52-1.04) mg/dL Glucose (74-99) mg/dL POC Glucose (mg/dL) 240 H 275 H 307 H (70-110) mg/dL Calcium (8.4-10.2) mg/dL 10/26/24 10/26/24 10/26/24 Range/Units 06:11 07:27 07:27 RBC 3.10 L (3.80-5.40) m/uL Hgb 8.0 L (11.4-16.0) gm/dL Hct 26.4 L (34.0-46.0) % MCHC 30.5 L (31.0-37.0) g/dL RDW 19.3 H (11.5-15.5) % Lymphocytes # 0.5 L (1.0-4.8) k/uL Sodium 135 L (137-145) mmol/L Potassium 3.3 L (3.5-5.1) mmol/L Chloride 88 L (98-107) mmol/L Carbon Dioxide 38 H (22-30) mmol/L BUN 22 H (7-17) mg/dL Creatinine 1.17 H (0.52-1.04) mg/dL Glucose 111 H (74-99) mg/dL POC Glucose (mg/dL) 144 H (70-110) mg/dL Calcium 8.3 L (8.4-10.2) mg/dL 10/26/24 Range/Units 11:23 RBC (3.80-5.40) m/uL Hgb (11.4-16.0) gm/dL Hct (34.0-46.0) % MCHC (31.0-37.0) g/dL RDW (11.5-15.5) % Lymphocytes # (1.0-4.8) k/uL Sodium (137-145) mmol/L Potassium (3.5-5.1) mmol/L Chloride (98-107) mmol/L Carbon Dioxide (22-30) mmol/L BUN (7-17) mg/dL Creatinine (0.52-1.04) mg/dL Glucose (74-99) mg/dL POC Glucose (mg/dL) 272 H (70-110) mg/dL Calcium (8.4-10.2) mg/dL Microbiology - Last 24 Hours (Table) 10/23/24 13:45 Gram Stain - Preliminary Pleural Fluid Body Fluid Culture - Preliminary 10/23/24 13:45 Acid Fast Bacilli Smear - Preliminary Pleural Fluid
[2024-10-26] MEDS ORDERED: Potassium Replacement Protocol 1 EACH MISC MISCELLANE PRN (15:33)
[2024-10-26 16:16] LABS: Glucose,Whole Blood 270 mg/dL (70-110)
[2024-10-26] MEDS: POTASSIUM CHLORIDE ER 20 MEQ TAB.ER PO SCH (16:25)
--- NOTE | 2024-10-26 16:31 | P.PN ---
Subjective Progress Note Date: 10/26/24 This is a 79-year-old female patient who is being seen in consultation for metabolic alkalosis. The patient was hospitalized on 10/08/2024 and the patient was in significant volume overload and she was also complaining of some shortness of breath and the patient's chest x-ray showed a left-sided pleural effusion. The patient had previous history of aortic valve placement and mitral valve replacement and tricuspid valve repair patient also has history of coronary artery disease and the patient has undergone previous stenting of the mid LAD and ostial PDA.The patient has a dual-chamber pacemaker insertion. She has paroxysmal atrial fibrillation, diabetes mellitus type 2, hypertension hyperlipidemia. The patient underwent her cardiac surgery at the [facility] back in May of this year. [facility] has been [facility]. She is also known to have obstructive sleep apnea. I have seen her in the sleep center in the past and the patient has been maintained on the BiPAP pressure of 18 over 14 cm of water and she has been quite compliant with treatment. She is also on oxygen and she had progressive worsening in her hypoxemia along with increased shortness of breath. Based on that, the patient came into the hospital. EKG showed a paced rhythm. The chest x-ray showed cardiomegaly and bilateral pleural effusion worse on the left. The patient's hemoglobin was low at 6.2 and dropped down to 5.5. The patient was transfused with a total of 3 units of packed RBC during the current hospitalization the patient's hemoglobin is currently is at 8.2. A repeat echocardiogram was done during this current hospitalization on 10/09/2024 and the patient was found to have a normal LV with an ejection fraction of 6065%, severe pulm hypertension with a PA pressure of 56. The patient had mitral valve replacement with mild mitral stenosis and aortic valve replacement without any valvular abnormalities or regurgitation. No evidence of any pericardial effusion. During this current admission, the patient was subjected to diuresis the patient is currently on Lasix 40 mg IV every 8 hours and the patient is also on Zaroxolyn 5 mg p.o. daily and Aldactone 25 mg p.o. daily. I checked the fluid balance and over the past 4 days, the patient has been in the negative fluid balance of at least 8 L. There has been also steady increase in his serum bicarb. The patient is i nitial bicarb at the time of admission was 28 and currently is up to 42. I obtained a follow-up chest x-ray this morning and it showed overall stable findings consistent with CHF and pulm vessel congestion. There is a small to moderate-sized left-sided pleural effusion along with some adjacent atelectatic change. Hemoglobin is at 8.2 with a white cell count of 6.4 and a platelet count of 127. BUN is 19 with a creatinine of 1.09 and sodium levels at 136 and potassium levels at 3.1. She remains on Levemir insulin 20 units nightly and NovoLog sliding scale coverage. She is also on Toprol 50 mg p.o. twice daily and IV Protonix. She remains on aspirin. On 10/14/2024, the patient is being seen for a follow-up. The patient is doing well. She continues to diurese well. Fluid balance has been -2.5 L over the past 24 hours. Nevertheless, she continues to have significant amount of edema in the abdomen lower extremities involving the thighs. BUN is 18 with a creatinine of 1.22. The patient developed metabolic alkalosis. The serum bicarb was quite elevated and the patient received a total of 2 doses of Diamox and the serum bicarb is down to 37. Meanwhile, the diuretics have been modified and the patient is currently on Lasix 60 mg in the morning and 40 mg in the evening. The patient is also on Zaroxolyn 5 mg p.o. daily and Aldactone 25 mg p.o. daily. The patient is utilizing her BiPAP and once off the BiPAP, she is maintaining herself on oxygen at 5 L/min nasal cannula. No significant shortness of breath. No cough or sputum production. Edema still extensive. On 10/15/2024, the patient is being seen for a follow-up. Doing well. Still has edema lower extremities. Nevertheless, the fluid balance has been -2.5 L over the past 24 hours and if she is producing good urine output. She remains on Lasix 60 mg in the morning and 40 mg in the evenings p.o. and the patient remains on Aldactone 25 mg p.o. daily and Zaroxolyn 5 mg p.o. daily. She is utilizing her BiPAP routinely. No labs are available from today. Nevertheless, the patient is awake and alert and communicating. No other significant events overnight. On 10/16/2024, the patient remains clinically stable. No new complaints. Remains in negative fluid balance. She has developed some metabolic alkalosis with a serum bicarb of 37. BUN is 24 with a creatinine of 1.2. The white cell count is at 7.7 with a hemoglobin of 7.5. Continues to utilize her BiPAP on a regular basis. After BiPAP, she is on 5 L of oxygen nasal cannula. No new complaints. Diuretics include Lasix 60 mg morning and 40 mg the evening and the patient remains on Zaroxolyn and Aldactone. On 10/17/2024, the patient is sitting up in a chair and she is calm and comfortable and she reports improvement in her volume status and edema in lower extremities. She remains negative fluid balance. She continues to be on diu retics, a combination of Lasix, Aldactone and Zaroxolyn. Fluid balance is negative. BUN 25 with a creatinine of 1.1. Sodium levels at 133. No altered mentation. Using BiPAP and once off the BiPAP, the patient is on oxygen at 5 L/min nasal cannula. No cough. No sputum production. No fever or chills. No altered mentation. On 10/18/2024, the patient is being seen for a follow-up. Doing well. No specific complaints. Continues to diurese. Negative fluid balance. Maintain on BiPAP on and off during the day and continuously overnight. While off the BiPAP, the patient is on 5 L with a pulse ox of 99%. Hemoglobin is 8.1. Awaiting EGD and colonoscopy. The BUN is 25 with a creatinine of 1.23 and a serum bicarb is at 39 and sodium levels at 139. Remains on Lasix, Zaroxolyn and Aldactone. The patient is seen today October 19, 2024 in follow-up on the selective care unit. She is currently resting comfortably in bed. Awake and alert in no acute distress. She is maintaining O2 saturations in the 90s on 5 L/min per nasal cannula. She is utilizing BiPAP throughout the evenings and during the day while napping. She did undergo EGD today revealed no evidence of active bleeding. There is gastritis, duodenitis. Erosive esophagitis. White count 6.1. Hemoglobin 7.5. Platelets 156. Sodium 134. Potassium 3.7. Bicarb 40. BUN 25. Creatinine 1.15. Glucose 143. She remains on diuretics. The patient is seen today October 21, 2024 in follow-up on the [facility] it. She is currently sitting up in bed. Awake and alert in no acute distress. Maintaining good O2 saturations in the 90s on 5 L/min per nasal cannula. She is utilizing her BiPap at night. Plan is for colonoscopy today. White count 5.5. Hemoglobin 7.6. Platelets 193. Sodium 134. Potassium 3.7. Bicarb 39. BUN 21. Creatinine 1.07. Glucose 95. She has been afebrile. Hemodynamically sta ble. The patient is seen today October 23, 2024 in follow-up on the selective care unit. She is currently sitting up in a chair at the bedside. Awake and alert in no acute distress. Receiving a unit of packed red blood cells. Denies any worsening shortness of breath, cough or congestion. She did have ongoing left pleural effusion. Ultrasound did show significant fluid. She underwent a left- sided thoracentesis today with Dr. Ledbetter. 850 mL of dark yellow fluid removed. She tolerated the procedure well. Chest x-ray showed improvement. No evidence of pneumothorax. She is maintaining O2 saturations in the high 90s on 5 L/min per nasal cannula. She is afebrile. Hemodynamically stable. White count 6.5. Hemoglobin 7.3. Platelets 171. Sodium 134. Potassium 3.7. Bicarb 38. BUN 20. Creatinine 1.13. Glucose 182. Eliquis remains on hold. The patient is seen today October 24, 2024 in follow-up on the [facility] care unit. She is currently sitting up in a chair. Awake and alert in no acute distress. Denies any worsening shortness of breath, cough or congestion. She d id undergo a left-sided thoracentesis yesterday. She remains on IV diuretics. White count 5.8. Hemoglobin 8.1. Platelets 170. Sodium 134. Potassium 3.8. Bicarb 35. BUN 19. Creatinine 1.08. Sodium 137. The patient is seen today October 26, 2024 in follow-up on the selective care unit. She is currently resting in bed. Awake and alert in no acute distress. Maintaining O2 saturations in the 90s on 5 L/min per nasal cannula. She denies any worsening shortness of breath, cough or congestion. She did undergo a left- sided thoracentesis on October 23, 2024. Cytology pending. White count 6.1. Hemoglobin 8.0. Platelets 187. Sodium 135. Potassium 3.3. Bicarb 38. BUN 22. Creatinine 1.17. Glucose 111. She remains on Eliquis. Remains on IV and oral diuretics. Objective - Vital Signs Vital signs: Vital Signs Temp 98.1 F 10/26/24 11:36 Pulse 61 10/26/24 13:53 Resp 16 10/26/24 13:53 BP 103/64 10/26/24 11:36 Pulse Ox 99 10/26/24 11:36 FiO2 Intake & Output 10/25/24 10/26/24 10/26/24 18:59 06:59 18:59 Intake Total 476 720 Output Total 850 Balance 476 -850 720 Weight 113 kg Intake: Oral 476 720 Output: Urine 850 Other: Voiding Method Toilet Toilet Toilet - Exam GENERAL EXAM: Alert, 79-year-old female, resting comfortably in bed, on 5 L nasal cannula, in no apparent distress. HEAD: Normocephalic. EYES: Normal reaction of pupils, equal size. NOSE: Clear with pink turbinates. THROAT: No erythema or exudates. NECK: No masses, no JVD. CHEST: No chest wall deformity. LUNGS: Equal air entry with crackles in the left lung base. CVS: S1 and S2 normal with no audible murmur, regular rhythm. ABDOMEN: No hepatosplenomegaly, normal bowel sounds, no guarding or rigidity. SPINE: No scoliosis or deformity SKIN: No rashes CENTRAL NERVOUS SYSTEM: No focal deficits, tone is normal in all 4 extremities. EXTREMITIES: There is no peripheral edema. No clubbing, no cyanosis. Peripheral pulses are intact. - Labs CBC & Chem 7: 10/26/24 07:27 10/26/24 07:27 Labs: Abnormal Lab Results - Last 24 Hours (Table) 10/25/24 10/25/24 10/26/24 Range/Units 16:48 19:58 06:11 RBC (3.80-5.40) m/uL Hgb (11.4-16.0) gm/dL Hct (34.0-46.0) % MCHC (31.0-37.0) g/dL RDW (11.5-15.5) % Lymphocytes # (1.0-4.8) k/uL Sodium (137-145) mmol/L Potassium (3.5-5.1) mmol/L Chloride (98-107) mmol/L Carbon Dioxide (22-30) mmol/L BUN (7-17) mg/dL Creatinine (0.52-1.04) mg/dL Glucose (74-99) mg/dL POC Glucose (mg/dL) 275 H 307 H 144 H (70-110) mg/dL Calcium (8.4-10.2) mg/dL 10/26/24 10/26/24 10/26/24 Range/Units 07:27 07:27 11:23 RBC 3.10 L (3.80-5.40) m/uL Hgb 8.0 L (11.4-16.0) gm/dL Hct 26.4 L (34.0-46.0) % MCHC 30.5 L (31.0-37.0) g/dL RDW 19.3 H (11.5-15.5) % Lymphocytes # 0.5 L (1.0-4.8) k/uL Sodium 135 L (137-145) mmol/L Potassium 3.3 L (3.5-5.1) mmol/L Chloride 88 L (98-107) mmol/L Carbon Dioxide 38 H (22-30) mmol/L BUN 22 H (7-17) mg/dL Creatinine 1.17 H (0.52-1.04) mg/dL Glucose 111 H (74-99) mg/dL POC Glucose (mg/dL) 272 H (70-110) mg/dL Calcium 8.3 L (8.4-10.2) mg/dL 10/26/24 Range/Units 16:15 RBC (3.80-5.40) m/uL Hgb (11.4-16.0) gm/dL Hct (34.0-46.0) % MCHC (31.0-37.0) g/dL RDW (11.5-15.5) % Lymphocytes # (1.0-4.8) k/uL Sodium (137-145) mmol/L Potassium (3.5-5.1) mmol/L Chloride (98-107) mmol/L Carbon Dioxide (22-30) mmol/L BUN (7-17) mg/dL Creatinine (0.52-1.04) mg/dL Glucose (74-99) mg/dL POC Glucose (mg/dL) 270 H (70-110) mg/dL Calcium (8.4-10.2) mg/dL Microbiology - Last 24 Hours (Table) 10/23/24 13:45 Gram Stain - Preliminary Pleural Fluid Body Fluid Culture - Preliminary 10/23/24 13:45 Acid Fast Bacilli Smear - Preliminary Pleural Fluid Assessment and Plan Assessment: Acute on chronic dyspnea with signs of decompensated heart failure essentially due to diastolic heart failure and valvular heart disease. The patient had significant volume overload at time of admission and the patient has been diuresed with IV Lasix Left sided pleural effusion, status post thoracentesis on 10/23/2024 with 850 mL removed, cultures and cytology pending Acute on chronic hypoxic respiratory failure, currently on 5 L of oxygen by nasal cannula Obstructive sleep apnea maintained on BiPAP pressure of 18/14 cm of water, utilizing her on device from home Acute on chronic anemia, s/p transfusion with a total of 4 units of packed RBC. Hemoglobin is at 7.3. EGD October 19, 2024 revealed no active bleeding. Colonoscopy on 10/21/2024 revealed no active bleeding History of valvular heart disease and the patient is status post aortic valve replacement, mitral valve replacement and tricuspid valve repair in May 2024 performed at [facility] Dual-chamber pacemaker insertion, November 2017 Paroxysmal A-fib maintained on anticoagulation with Eliquis Coronary artery disease with previous coronary stenting of the LAD and ostial PDA Diabetes mellitus type 2 Hyperlipidemia Hypertension Severe pulmonary hypertension, group 2 Plan: The patient was seen and evaluated Labs and medications reviewed Current hemoglobin 8.0 Titrate down the FiO2 as tolerated Increase her activity as tolerated Plan is for outpatient capsule study Plan is for home with [facility] I have personally seen and examined the patient, performed the documentation and the assessment and plan as written. Number of minutes spent on the visit: 10 Dictation was produced using [email or web address] dictation software. Please excuse any grammatical, word or spelling errors.
[2024-10-26 20:10] LABS: Glucose,Whole Blood 316 mg/dL (70-110)
--- NOTE | 2024-10-26 21:07 | P.PN ---
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 She complains that ever since her heart surgery at [facility] she has felt short of breath and did not get any real improvement from the procedure. She denies having any chest pain or chest pressure. She complains her shortness of breath recently worsened and she had to turn her oxygen up. She denies abdominal pain although endorses lack of radha etite. Patient states her stools are very dark but not black. Blood pressure 116/60, heart rate 100, pulse ox 99% on CPAP. [facility] Patient presents reports of dyspnea. Patient states her breathing is better today No chest pain Currently she is getting blood transfusion Patient had severe anemia on admission with hemoglobin 5.5 and 6.3, after blood transfusion 6.9 GI team saw her yesterday but patient was not cleared by head coach to undergo EGD which is held now Patient remains on IV Protonix Eliquis is on hold for her A-fib and other cardiac diseases Also she was placed on IV Lasix 40 mg twice daily given her acute CHF. And also on review of her blood transfusion Cardiology team added aspirin 81 mg while she is off Eliquis Ejection fraction is 60-65 percent, severe pulmonary hypertension with RVSP is 56 Hemoglobin A1c is elevated at 7.5% 10/11 Patient sitting at the edge of the bed She is still complaining from some dyspnea but improving. Still complaining from 2-3+ bilateral pitting leg edema. Also patient drinking a lot of water, she was counseled extensively about fluid restriction and she agrees She is kept on IV Lasix 40 mg twice daily. Fluid restriction is added Currently her Eliquis is on hold and she was started on aspirin 81 mg Patient evaluated by GI team however she was not cleared to undergo EGD/colonoscopy by head coach. Patient status 3 units of blood transfusion and hemoglobin improved to 8.9 Hemoglobin A1c 7.5 Ejection fraction 60 to 65% with severe pulmonary hypertension with RVSP at 56 10/12 Patient breathing is better No blood in stool and she has a brown bowel movement She is diuresing very well while she kept on 100 mg of oral Lasix daily at 40 mg in the morning and 60 mg in the evening plus metolazone 5 mg. Eliquis remains on hold, GI team consult EGD because patient was not cleared by head coach earlier in the week. Will keep monitoring hemoglobin while off Eliquis for her paroxysmal A-fib. She is currently on aspirin added instead of holding Eliquis She is on oral Lasix and IV Protonix 10/16 Patient keep doing well She is on 5 L oxygen via nasal cannula No other new complaint Hemoglobin improved to 7.9 today Creatinine stable 1.2. Low potassium replaced at 3.4 She remains on p.o. Lasix 40 mg in the evening and 40 mg in the a.m. twice daily 10/17 currently patient is euvolemic And kept on oral Lasix 40 mg daily and metolazone 5 mg daily. Creatinine stable at 1.1. Patient is stable now per head coach. Pending the GI team for further workup. Possible EGD and colonoscopy. Eliquis is on hold. 10/18 Patient awake sitting up in bed looks comfortable and relaxed, no new complaints She is getting more euvolemic now No GI coverage this coming week therefore we are going to consult surgery for her anemia. Initially plans for EGD was held as patient was not cardiologically stable. Consult surgery team for further evaluation 10/26 Resume the care of the patient today, she is sitting up in bed, she still complaining from exertional dyspnea and cannot lie flat Currently she is on 5 L oxygen. She is s/p thoracocentesis on 10/23 She is still on IV Lasix. Hemoglobin today 8.0. Currently patient resumed her Eliquis Monitor hemoglobin tomorrow May consider GI evaluation for capsule endoscopy Objective - Vital Signs Vital signs: Vital Signs Temp 98.2 F 10/26/24 08:00 Pulse 60 10/26/24 08:00 Resp 14 10/26/24 08:00 BP 95/59 10/26/24 08:00 Pulse Ox 99 10/26/24 08:00 FiO2 Intake & Output 10/25/24 10/26/24 10/26/24 18:59 06:59 18:59 Intake Total 476 360 Output Total 850 Balance 476 -850 360 Weight 113 kg Intake: Oral 476 360 Output: Urine 850 Other: Voiding Method Toilet Toilet - Exam -GENERAL: The patient is alert and oriented x3, not in any acute distress. Well developed, well nourished. Patient looks somewhat pale and tired HEENT: Pupils are round and equally reacting to light. EOMI. No scleral icterus. No conjunctival pallor. Normocephalic, atraumatic. No pharyngeal erythema. No thyromegaly. CARDIOVASCULAR: S1 and S2 present. No murmurs, rubs, or gallops. -PULMONARY: Chest is clear to auscultation, no wheezing , bilateral basal crackles. ABDOMEN: Soft, nontender, nondistended, normoactive bowel sounds. No palpable organomegaly. MUSCULOSKELETAL: No joint swelling or deformity. -EXTREMITIES: No cyanosis, clubbing,. Bilateral pitting leg edema. NEUROLOGICAL: Gross neurological examination did not reveal any focal deficits. SKIN: No rashes. no petechiae. - Labs CBC & Chem 7: 10/26/24 07:27 10/26/24 07:27 Labs: Abnormal Lab Results - Last 24 Hours (Table) 10/25/24 10/25/24 10/25/24 Range/Units 11:42 16:48 19:58 RBC (3.80-5.40) m/uL Hgb (11.4-16.0) gm/dL Hct (34.0-46.0) % MCHC (31.0-37.0) g/dL RDW (11.5-15.5) % Lymphocytes # (1.0-4.8) k/uL Sodium (137-145) mmol/L Potassium (3.5-5.1) mmol/L Chloride (98-107) mmol/L Carbon Dioxide (22-30) mmol/L BUN (7-17) mg/dL Creatinine (0.52-1.04) mg/dL Glucose (74-99) mg/dL POC Glucose (mg/dL) 240 H 275 H 307 H (70-110) mg/dL Calcium (8.4-10.2) mg/dL 10/26/24 10/26/24 10/26/24 Range/Units 06:11 07:27 07:27 RBC 3.10 L (3.80-5.40) m/uL Hgb 8.0 L (11.4-16.0) gm/dL Hct 26.4 L (34.0-46.0) % MCHC 30.5 L (31.0-37.0) g/dL RDW 19.3 H (11.5-15.5) % Lymphocytes # 0.5 L (1.0-4.8) k/uL Sodium 135 L (137-145) mmol/L Potassium 3.3 L (3.5-5.1) mmol/L Chloride 88 L (98-107) mmol/L Carbon Dioxide 38 H (22-30) mmol/L BUN 22 H (7-17) mg/dL Creatinine 1.17 H (0.52-1.04) mg/dL Glucose 111 H (74-99) mg/dL POC Glucose (mg/dL) 144 H (70-110) mg/dL Calcium 8.3 L (8.4-10.2) mg/dL Microbiology - Last 24 Hours (Table) 10/23/24 13:45 Gram Stain - Preliminary Pleural Fluid Body Fluid Culture - Preliminary 10/23/24 13:45 Acid Fast Bacilli Smear - Preliminary Pleural Fluid Assessment and Plan Assessment: Acute blood loss severe anemia, present on admission. Acute on chronic diastolic CHF with ejection fraction 60 to 65% History of aortic valve replacement, mitral valve replacement and tricuspid valve repair on 05/2024 Diabetes mellitus Coronary artery disease Paroxysmal atrial fibrillation status post dual-chamber pacemaker Hypertension Hyperlipidemia Plan: Monitor hemoglobin. She is currently on Eliquis and aspirin She is status post EGD Patient may require capsule endoscopy. Consider GI evaluation surgery team consult Continue with Protonix Continue with IV Lasix plus metolazone fluid restriction Resume cardiac medication Labs and medication were reviewed.. Continue same treatment. Continue with symptomatic treatment. Resume home medication. Monitor labs and vitals. DVT and GI prophylaxis. Further recommendations as per clinical course of the patient DVT prophylaxis: Eliquis GI Prophylaxis: Protonix Prognosis is guarded
[2024-10-27 06:03] LABS: Glucose,Whole Blood 208 mg/dL (70-110)
[2024-10-27 07:35] LABS: Anisocytosis Slight; Basophils % (A) 1 %; Eosinophils # (A) 0.2 k/uL (0-0.7); Eosinophils % (A) 3 %; HCT 25.7 % (34.0-46.0); HGB 7.6 gm/dL (11.4-16.0); Hypochromasia Marked; Lymphocytes # (A) 0.6 k/uL (1.0-4.8); Lymphocytes % (A) 9 %; MCH 25.7 pg (25.0-35.0); MCHC 29.6 g/dL (31.0-37.0); MCV 86.7 fL (80.0-100.0); Mean Platelet Volume 7.5; Monocytes # (A) 0.4 k/uL (0-1.0); Monocytes % (A) 6 %; Neutrophils # (A) 4.9 k/uL (1.3-7.7); Neutrophils % (A) 80 %; Platelet Count 173 k/uL (150-450); RBC 2.97 m/uL (3.80-5.40); RDW 19.4 % (11.5-15.5); WBC 6.2 k/uL (3.8-10.6)
[2024-10-27 08:15] LABS: African American GFR (CKD) 52 (>60 ml/min/1.73 sqM); Anion Gap 4 mmol/L; Blood Urea Nitrogen 27 mg/dL (7-17); Calcium 8.1 mg/dL (8.4-10.2); Carbon Dioxide 39 mmol/L (22-30); Chloride 90 mmol/L (98-107); Glucose 175 mg/dL (74-99); Non-African American GFR(CKD) 45 (>60 ml/min/1.73 sqM); Potassium 3.6 mmol/L (3.5-5.1); Sodium 133 mmol/L (137-145)
--- NOTE | 2024-10-27 10:16 | P.PN ---
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 She complains that ever since her heart surgery at [facility] she has felt short of breath and did not get any real improvement from the procedure. She denies having any chest pain or chest pressure. She complains her shortness of breath recently worsened and she had to turn her oxygen up. She denies abdominal pain although endorses lack of radha etite. Patient states her stools are very dark but not black. Blood pressure 116/60, heart rate 100, pulse ox 99% on CPAP. [facility] Patient presents reports of dyspnea. Patient states her breathing is better today No chest pain Currently she is getting blood transfusion Patient had severe anemia on admission with hemoglobin 5.5 and 6.3, after blood transfusion 6.9 GI team saw her yesterday but patient was not cleared by workforce specialist to undergo EGD which is held now Patient remains on IV Protonix Eliquis is on hold for her A-fib and other cardiac diseases Also she was placed on IV Lasix 40 mg twice daily given her acute CHF. And also on review of her blood transfusion Cardiology team added aspirin 81 mg while she is off Eliquis Ejection fraction is 60-65 percent, severe pulmonary hypertension with RVSP is 56 Hemoglobin A1c is elevated at 7.5% 10/11 Patient sitting at the edge of the bed She is still complaining from some dyspnea but improving. Still complaining from 2-3+ bilateral pitting leg edema. Also patient drinking a lot of water, she was counseled extensively about fluid restriction and she agrees She is kept on IV Lasix 40 mg twice daily. Fluid restriction is added Currently her Eliquis is on hold and she was started on aspirin 81 mg Patient evaluated by GI team however she was not cleared to undergo EGD/colonoscopy by workforce specialist. Patient status 3 units of blood transfusion and hemoglobin improved to 8.9 Hemoglobin A1c 7.5 Ejection fraction 60 to 65% with severe pulmonary hypertension with RVSP at 56 10/12 Patient breathing is better No blood in stool and she has a brown bowel movement She is diuresing very well while she kept on 100 mg of oral Lasix daily at 40 mg in the morning and 60 mg in the evening plus metolazone 5 mg. Eliquis remains on hold, GI team consult EGD because patient was not cleared by workforce specialist earlier in the week. Will keep monitoring hemoglobin while off Eliquis for her paroxysmal A-fib. She is currently on aspirin added instead of holding Eliquis She is on oral Lasix and IV Protonix 10/16 Patient keep doing well She is on 5 L oxygen via nasal cannula No other new complaint Hemoglobin improved to 7.9 today Creatinine stable 1.2. Low potassium replaced at 3.4 She remains on p.o. Lasix 40 mg in the evening and 40 mg in the a.m. twice daily 10/17 currently patient is euvolemic And kept on oral Lasix 40 mg daily and metolazone 5 mg daily. Creatinine stable at 1.1. Patient is stable now per workforce specialist. Pending the GI team for further workup. Possible EGD and colonoscopy. Eliquis is on hold. 10/18 Patient awake sitting up in bed looks comfortable and relaxed, no new complaints She is getting more euvolemic now No GI coverage this coming week therefore we are going to consult surgery for her anemia. Initially plans for EGD was held as patient was not cardiologically stable. Consult surgery team for further evaluation 10/26 Resume the care of the patient today, she is sitting up in bed, she still complaining from exertional dyspnea and cannot lie flat Currently she is on 5 L oxygen. She is s/p thoracocentesis on 10/23 She is still on IV Lasix. Hemoglobin today 8.0. Currently patient resumed her Eliquis Monitor hemoglobin tomorrow May consider GI evaluation for capsule endoscopy 10/27 Patient hemoglobin dropped to 7.6 today. Patient denies bowel movement, patient denies bleeding per rectum. Patient denies bleeding from anywhere else. She looks somewhat pale and tired. Patient and daughter at bedside are concerned and they want to address this drop in hemoglobin Yesterday I discussed the case with GI team to be evaluated for possible capsule endoscopy, we are going to consult their service again today. Plan of care discussed in details with the patient and daughter at bedside and they are agreeable. Objective - Vital Signs Vital signs: Vital Signs Temp 97.6 F 10/27/24 08:00 Pulse 61 10/27/24 08:00 Resp 16 10/27/24 08:00 BP 103/64 10/27/24 08:00 Pulse Ox 98 10/27/24 08:00 FiO2 Intake & Output 10/26/24 10/27/24 10/27/24 18:59 06:59 18:59 Intake Total 960 250 Output Total 400 Balance 960 -400 250 Weight 112.4 kg Intake: IV 10 Invasive Line 4 10 Oral 960 240 Output: Urine 400 Other: Voiding Method Toilet Toilet Toilet - Exam -GENERAL: The patient is alert and oriented x3, not in any acute distress. Well developed, well nourished. Patient looks somewhat pale and tired HEENT: Pupils are round and equally reacting to light. EOMI. No scleral icterus. No conjunctival pallor. Normocephalic, atraumatic. No pharyngeal erythema. No thyromegaly. CARDIOVASCULAR: S1 and S2 present. No murmurs, rubs, or gallops. -PULMONARY: Chest is clear to auscultation, no wheezing , bilateral basal crackles. ABDOMEN: Soft, nontender, nondistended, normoactive bowel sounds. No palpable organomegaly. MUSCULOSKELETAL: No joint swelling or deformity. -EXTREMITIES: No cyanosis, clubbing,. Bilateral pitting leg edema. NEUROLOGICAL: Gross neurological examination did not reveal any focal deficits. SKIN: No rashes. no petechiae. - Labs CBC & Chem 7: 10/27/24 06:57 10/27/24 06:57 Labs: Abnormal Lab Results - Last 24 Hours (Table) 10/26/24 10/26/24 10/26/24 Range/Units 11:23 16:15 20:09 RBC (3.80-5.40) m/uL Hgb (11.4-16.0) gm/dL Hct (34.0-46.0) % MCHC (31.0-37.0) g/dL RDW (11.5-15.5) % Lymphocytes # (1.0-4.8) k/uL Sodium (137-145) mmol/L Chloride (98-107) mmol/L Carbon Dioxide (22-30) mmol/L BUN (7-17) mg/dL Creatinine (0.52-1.04) mg/dL Glucose (74-99) mg/dL POC Glucose (mg/dL) 272 H 270 H 316 H (70-110) mg/dL Calcium (8.4-10.2) mg/dL 10/27/24 10/27/24 10/27/24 Range/Units 06:01 06:57 06:57 RBC 2.97 L (3.80-5.40) m/uL Hgb 7.6 L (11.4-16.0) gm/dL Hct 25.7 L (34.0-46.0) % MCHC 29.6 L (31.0-37.0) g/dL RDW 19.4 H (11.5-15.5) % Lymphocytes # 0.6 L (1.0-4.8) k/uL Sodium 133 L (137-145) mmol/L Chloride 90 L (98-107) mmol/L Carbon Dioxide 39 H (22-30) mmol/L BUN 27 H (7-17) mg/dL Creatinine 1.17 H (0.52-1.04) mg/dL Glucose 175 H (74-99) mg/dL POC Glucose (mg/dL) 208 H (70-110) mg/dL Calcium 8.1 L (8.4-10.2) mg/dL Microbiology - Last 24 Hours (Table) 10/23/24 13:45 Gram Stain - Preliminary Pleural Fluid Body Fluid Culture - Preliminary Assessment and Plan Assessment: Acute blood loss severe anemia, present on admission. Acute on chronic diastolic CHF with ejection fraction 60 to 65% History of aortic valve replacement, mitral valve replacement and tricuspid valve repair on 05/2024 Diabetes mellitus Coronary artery disease Paroxysmal atrial fibrillation status post dual-chamber pacemaker Hypertension Hyperlipidemia Plan: Monitor hemoglobin. She is currently on Eliquis and aspirin She is status post EGD Patient may require capsule endoscopy. Further GI evaluation is requested surgery team consult Continue with Protonix Continue with IV Lasix plus metolazone fluid restriction Resume cardiac medication Labs and medication were reviewed.. Continue same treatment. Continue with symptomatic treatment. Resume home medication. Monitor labs and vitals. DVT and GI prophylaxis. Further recommendations as per clinical course of the patient DVT prophylaxis: Eliquis GI Prophylaxis: Protonix Prognosis is guarded
[2024-10-27 11:24] LABS: Glucose,Whole Blood 228 mg/dL (70-110)
--- NOTE | 2024-10-27 12:23 | P.CONS ---
History of Present Illness - Reason for Consult Consult date: 10/27/24 Drop in hemoglobin Requesting physician: Sergio E Sheet - Chief Complaint Shortness of breath - History of Present Illness This is a pleasant 79-year-old female who presented to the emergency department with shortness of breath and lower extremity swelling as well as states swelling all over 19 days ago. She has a past medical history of coronary artery disease, atrial fibrillation, hyperlipidemia, osteoarthritis, sleep apnea with BiPAP, heart valve disease status post replacement May 2024 on Eliquis, and thyroid disorder. Gastroenterology was consulted for anemia when patient was first admitted to the hospital with a hemoglobin of 6.2. At that time she had reported that she did have some dark stools. Did not say that they were black. No abdominal pain, nausea or vomiting. Was stating that she has had poor nutritional intake. D plan was for upper endoscopy for further evaluation at that time however patient's respiratory status was poor and she was not cleared by pulmonology. Gastroenterology then was no longer available in the hospital and we had signed off. During her hospitalization she was seen by general surgery for anemia and had an upper and lower endoscopy with Dr. Hurtado. Upper endoscopy was done on 10/19/2024 with findings of gastritis and duodenitis with biopsy reports showing peptic duodenitis, minimal chronic gastritis and m ild chronic esophagitis. Colonoscopy was completed on 10/21/2024 status post polypectomy with biopsy report of tubular adenoma. Patient continues to state that she is not having any blood in her stool, no abdominal pain, nausea or vomiting. She is tolerating a regular diet. Her daughter is at the bedside and states that her mother's appetite has been very poor and she has not been eating well prior to coming to the hospital and still has very little appetite. Patient has received 4 units of blood during this hospitalization. She is currently on her Eliquis 5 mg twice daily. Previous plan was for discharge last week with patient to follow-up as an outpatient for small bowel capsule endo scopy this . However patient is still been hospitalized and had a slight drop in her hemoglobin from 8.0 yesterday to 7.6 today. She has a normocytic normochromic anemia. No iron studies have been completed. Review of Systems REVIEW OF SYSTEMS: CARDIOPULMONARY: No chest pain, positive shortness of breath but improved. Generalized edema and lower extremity edema improved. Gastrointestinal: No abdominal pain. No nausea or vomiting. No hematemesis, coffee-ground emesis. No rectal bleeding, or melena. GENITOURINARY: No dysuria or hematuria. MUSCULOSKELETAL: Reports normal range of motion., Joint pain. SKIN: No rashes. No jaundice. ENDOCRINE: No chills, fevers. No excessive weight gain or loss. No polydipsia or polyuria. PSYCHIATRIC: Unremarkable. NEUROLOGY: No change in mental status. Denies dizziness, headache. ENT: Vision unremarkable. CONSTITUTIONAL: No recent weight loss. No fever, chills, night sweats. 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 HAD THYROID AND PARATHYROID REMOVAL. TOTAL LEFT KNEE REPLACEMENT, CATARACT RT EYE, CATARACT LEFT EYE SURGERY ,COLONOSCOPY, TVAR-12/07 18 , Aortic valve replacement 10/2018 Past Anesthesia/Blood Transfusion Reactions: No Reported Reaction Type of Cardiac Device: Permanent Pacemaker Device Placement Date:: PACEMAKER NOV 2017. Past Psychological History: No Psychological Hx Reported Smoking Status: Never smoker Past Alcohol Use History: None Reported Past Drug Use History: None Reported - Past Family History Daughter(s) Family Medical History: Deep Vein Thrombosis (DVT) Sister(s) Family Medical History: Cancer Additional Family Medical History / Comment(s): BREAST CANCER Medications and Allergies Home Medications Medication Instructions Recorded Confirmed Type Levothyroxine Sodium [Levoxyl] 175 mcg PO DAILY 10/25/20 10/08/24 History FLUoxetine HCL [PROzac] 10 mg PO DAILY 10/08/24 10/08/24 History Furosemide [Lasix] 20 mg PO BID 10/08/24 10/08/24 History Insulin Aspart [NovoLOG Flexpen] 40 units SQ AC-TID 10/08/24 10/08/24 History Insulin Glargine,Hum.rec.anlog 20 - 30 units SQ HS 10/08/24 10/08/24 History [Lantus Solostar Pen] Rosuvastatin Calcium [Crestor] 40 mg PO HS 10/08/24 10/08/24 History Apixaban [Eliquis] 5 mg PO BID #0 10/22/24 10/08/24 Rx Aspirin 81 mg PO DAILY tab 10/22/24 Rx Furosemide [Lasix] 40 mg PO BID #60 tab 10/22/24 Rx Lactulose [Cephulac] 30 gm PO BID #900 ml 10/22/24 Rx Metoprolol Succinate (ER) [Toprol 50 mg PO BID #60 tab 10/22/24 Rx XL] Pantoprazole Sodium [Protonix] 40 mg PO DAILY #30 tab 10/22/24 Rx Sennosides [Senokot] 8.6 mg PO DAILY PRN tab 10/22/24 Rx Spironolactone [Aldactone] 25 mg PO DAILY #30 tab 10/22/24 Rx metOLazone [Zaroxolyn] 5 mg PO DAILY #30 tab 10/22/24 Rx Allergies Allergy/AdvReac Type Severity Reaction Status Date / Time nitrofurantoin Allergy Rash/Hives Verified 10/08/24 19:32 macrocrystalline [From Macrodantin] phenazopyridine HCl Allergy Rash/Hives Verified 10/08/24 19:32 [From Pyridium] Physical Exam Vitals: Vital Signs Temp Pulse Resp BP Pulse Ox 10/27/24 08:00 97.6 F 61 16 103/64 98 10/27/24 07:39 98 10/27/24 04:26 98.4 F 65 16 106/62 94 L 10/27/24 01:10 16 10/27/24 00:00 98.3 F 70 16 105/61 94 L 10/26/24 20:00 16 10/26/24 19:32 98.7 F 63 16 109/66 97 10/26/24 16:00 98.2 F 65 16 128/68 96 10/26/24 13:53 61 16 Intake and Output 12/09/24 12/10/24 12/10/24 22:59 06:59 14:59 Intake Total 240 250 Output Total 400 Balance 240 -400 250 Intake: IV 10 Invasive Line 4 10 Oral 240 240 Output: Urine 400 Other: Voiding Method Toilet Toilet Toilet Weight 112.4 kg General appearance: The patient is alert, oriented, appears in no acute distress. Obese. HET: Head is normocephalic and atraumatic. Conjunctiva pink. Sclera anicteric. Neck: Supple without lymphadenopathy. Trachea midline. Heart: Regular. Lungs: Equal expansion, normal respiratory effort. Abdomen: Soft, nontender, nondistended. Skin: No rashes. No jaundice. Extremities: Normal skin color and turgor. Lower extremity edema. Neurological: No focal deficits. Alert and oriented x3. Results CBC & Chem 7: 10/27/24 06:57 10/27/24 06:57 Labs: Abnormal Lab Results - Last 24 Hours (Table) 10/26/24 10/26/24 10/27/24 Range/Units 16:15 20:09 06:01 RBC (3.80-5.40) m/uL Hgb (11.4-16.0) gm/dL Hct (34.0-46.0) % MCHC (31.0-37.0) g/dL RDW (11.5-15.5) % Lymphocytes # (1.0-4.8) k/uL Sodium (137-145) mmol/L Chloride (98-107) mmol/L Carbon Dioxide (22-30) mmol/L BUN (7-17) mg/dL Creatinine (0.52-1.04) mg/dL Glucose (74-99) mg/dL POC Glucose (mg/dL) 270 H 316 H 208 H (70-110) mg/dL Calcium (8.4-10.2) mg/dL 10/27/24 10/27/24 10/27/24 Range/Units 06:57 06:57 11:21 RBC 2.97 L (3.80-5.40) m/uL Hgb 7.6 L (11.4-16.0) gm/dL Hct 25.7 L (34.0-46.0) % MCHC 29.6 L (31.0-37.0) g/dL RDW 19.4 H (11.5-15.5) % Lymphocytes # 0.6 L (1.0-4.8) k/uL Sodium 133 L (137-145) mmol/L Chloride 90 L (98-107) mmol/L Carbon Dioxide 39 H (22-30) mmol/L BUN 27 H (7-17) mg/dL Creatinine 1.17 H (0.52-1.04) mg/dL Glucose 175 H (74-99) mg/dL POC Glucose (mg/dL) 228 H (70-110) mg/dL Calcium 8.1 L (8.4-10.2) mg/dL Microbiology - Last 24 Hours (Table) 10/23/24 13:45 Gram Stain - Preliminary Pleural Fluid Body Fluid Culture - Preliminary Assessment and Plan (1) Anemia Narrative/Plan: 79-year-old female with multiple comorbidities presenting with shortness of breath and lower extremity swelling underwent triple valve surgery she according to patient in May of this year and is on anticoagulation with Eliquis.. Patient has been admitted for the last 19 days with the GI initially on consult for anemia with recommendation for upper endoscopy at that time however patient was not stable from a pulmonary standpoint. She has since been followed by general surgery for anemia without any gross signs of GI bleed. She has had upper and lower endoscopy without any evidence of a GI bleed. Plan was for outpatient small bowel capsule endoscopy however patient still hospitalized. She continues to have a normocytic normochromic anemia without any gross signs of GI bleed. Unclear etiology of anemia may be secondary to poor nutrition, or anemia of chronic disease. However will complete testing to rule out sources a GI bleed. Plan for small bowel capsule endoscopy tomorrow. Iron studies ordered. Current Visit: Yes Status: Acute Code(s): D64.9 - ANEMIA, UNSPECIFIED SNOMED Code(s): 523123070 (2) Shortness of breath Current Visit: Yes Status: Acute Code(s): R06.02 - SHORTNESS OF BREATH SNOMED Code(s): 795153743 (3) Coronary artery disease Current Visit: Yes Status: Acute Code(s): I25.10 - ATHSCL HEART DISEASE OF [place] CORONARY ARTERY W/O ANG PCTRS SNOMED Code(s): 63387238 (4) Atrial fibrillation Current Visit: Yes Status: Acute Code(s): I48.91 - UNSPECIFIED ATRIAL FIBRILLATION SNOMED Code(s): 24757979 (5) Pacemaker Current Visit: Yes Status: Acute Code(s): Z95.0 - PRESENCE OF CARDIAC PACEMAKER SNOMED Code(s): 988475343 (6) Insulin dependent type 2 diabetes mellitus Current Visit: No Status: Acute Code(s): E11.9 - TYPE 2 DIABETES MELLITUS WITHOUT COMPLICATIONS SNOMED Code(s): 021010334 (7) History of heart valve replacement Current Visit: Yes Status: Acute Code(s): Z95.2 - PRESENCE OF PROSTHETIC HEART VALVE SNOMED Code(s): 942764406 Plan: 1. Continue symptomatic and supportive care 2. May continue Eliquis 3. Daily CBC, transfuse for hemoglobin less than 7 4. Protonix 40 mg daily for GI prophylaxis 5. Iron studies, ferritin ordered 6. Patient is status post upper endoscopy and colonoscopy without any findings of GI bleed 7. Patient can have clear liquid diet this evening, n.p.o. after midnight 8. Magnesium citrate this evening 9. Will plan for small bowel capsule endoscopy tomorrow 10. Consider hematology consultation which can be done as an outpatient Thank you for this consultation, we will continue to follow. Dr. Bailee Allen I agree with the dictator's note, documented as a scribe by Marline Ansari.
[2024-10-27 12:53] LABS: Anisocytosis Slight; Basophils % (A) 0 %; Eosinophils # (A) 0.3 k/uL (0-0.7); Eosinophils % (A) 4 %; HCT 27.2 % (34.0-46.0); HGB 8.2 gm/dL (11.4-16.0); Hypochromasia Marked; Lymphocytes # (A) 0.6 k/uL (1.0-4.8); Lymphocytes % (A) 8 %; MCHC 30.2 g/dL (31.0-37.0); MCV 86.1 fL (80.0-100.0); Mean Platelet Volume 7.5; Monocytes # (A) 0.3 k/uL (0-1.0); Monocytes % (A) 5 %; Neutrophils # (A) 5.7 k/uL (1.3-7.7); Neutrophils % (A) 82 %; Platelet Count 179 k/uL (150-450); RBC 3.16 m/uL (3.80-5.40); RDW 19.5 % (11.5-15.5); WBC 6.9 k/uL (3.8-10.6)
--- NOTE | 2024-10-27 15:15 | P.PN ---
Subjective Progress Note Date: 10/27/24 Principal diagnosis: Anemia. On 10/15/2024, the patient is being seen for a follow-up. Doing well. Still has edema lower extremities. Nevertheless, the fluid balance has been -2.5 L over the past 24 hours and if she is producing good urine output. She remains on Lasix 60 mg in the morning and 40 mg in the evenings p.o. and the patient remains on Aldactone 25 mg p.o. daily and Zaroxolyn 5 mg p.o. daily. She is utilizing her BiPAP routinely. No labs are available from today. Nevertheless, the patient is awake and alert and communicating. No other significant events o vernight. On 10/16/2024, the patient remains clinically stable. No new complaints. Remains in negative fluid balance. She has developed some metabolic alkalosis with a serum bicarb of 37. BUN is 24 with a creatinine of 1.2. The white cell count is at 7.7 with a hemoglobin of 7.5. Continues to utilize her BiPAP on a regular basis. After BiPAP, she is on 5 L of oxygen nasal cannula. No new complaints. Diuretics include Lasix 60 mg morning and 40 mg the evening and the patient remains on Zaroxolyn and Aldactone. On 10/17/2024, the patient is sitting up in a chair and she is calm and co mfortable and she reports improvement in her volume status and edema in lower extremities. She remains negative fluid balance. She continues to be on diuretics, a combination of Lasix, Aldactone and Zaroxolyn. Fluid balance is negative. BUN 25 with a creatinine of 1.1. Sodium levels at 133. No altered mentation. Using BiPAP and once off the BiPAP, the patient is on oxygen at 5 L/min nasal cannula. No cough. No sputum production. No fever or chills. No altered mentation. On 10/18/2024, the patient is being seen for a follow-up. Doing well. No specific complaints. Continues to diurese. Negative fluid balance. Maintain on BiPAP on and off during the day and continuously overnight. While off the BiPAP, the patient is on 5 L with a pulse ox of 99%. Hemoglobin is 8.1. Awaiting EGD and colonoscopy. The BUN is 25 with a creatinine of 1.23 and a serum bicarb is at 39 and sodium levels at 139. Remains on Lasix, Zaroxolyn and Aldactone. The patient is seen today October 19, 2024 in follow-up on the selective care unit. She is currently resting comfortably in bed. Awake and alert in no acute distress. She is maintaining O2 saturations in the 90s on 5 L/min per nasal ca nnula. She is utilizing BiPAP throughout the evenings and during the day while napping. She did undergo EGD today revealed no evidence of active bleeding. There is gastritis, duodenitis. Erosive esophagitis. White count 6.1. Hemoglobin 7.5. Platelets 156. Sodium 134. Potassium 3.7. Bicarb 40. BUN 25. Creatinine 1.15. Glucose 143. She remains on diuretics. The patient is seen today October 21, 2024 in follow-up on the selective care unit. She is currently sitting up in bed. Awake and alert in no acute distress. Maintaining good O2 saturations in the 90s on 5 L/min per nasal cannula. She is utilizing her BiPap at night. Plan is for colonoscopy today. White count 5.5. Hemoglobin 7.6. Platelets 193. Sodium 134. Potassium 3.7. Bicarb 39. BUN 21. Creatinine 1.07. Glucose 95. She has been afebrile. Hemodynamically stable. The patient is seen today October 23, 2024 in follow-up on the selective care unit. She is currently sitting up in a chair at the bedside. Awake and alert in no acute distress. Receiving a unit of packed red blood cells. Denies any w orsening shortness of breath, cough or congestion. She did have ongoing left pleural effusion. Ultrasound did show significant fluid. She underwent a left- sided thoracentesis today with Dr. Ledbetter. 850 mL of dark yellow fluid removed. She tolerated the procedure well. Chest x-ray showed improvement. No evidence of pneumothorax. She is maintaining O2 saturations in the high 90s on 5 L/min p er nasal cannula. She is afebrile. Hemodynamically stable. White count 6.5. Hemoglobin 7.3. Platelets 171. Sodium 134. Potassium 3.7. Bicarb 38. BUN 20. Creatinine 1.13. Glucose 182. Eliquis remains on hold. The patient is seen today October 24, 2024 in follow-up on the selective care u nit. She is currently sitting up in a chair. Awake and alert in no acute distress. Denies any worsening shortness of breath, cough or congestion. She did undergo a left-sided thoracentesis yesterday. She remains on IV diuretics. White count 5.8. Hemoglobin 8.1. Platelets 170. Sodium 134. Potassium 3.8. Bicarb 35. BUN 19. Creatinine 1.08. Sodium 137. The patient is seen today October 26, 2024 in follow-up on the selective care unit. She is currently resting in bed. Awake and alert in no acute distress. Maintaining O2 saturations in the 90s on 5 L/min per nasal cannula. She denies any worsening shortness of breath, cough or congestion. She did undergo a left- sided thoracentesis on October 23, 2024. Cytology pending. White count 6.1. Hemoglobin 8.0. Platelets 187. Sodium 135. Potassium 3.3. Bicarb 38. BUN 22. Creatinine 1.17. Glucose 111. She remains on Eliquis. Remains on IV and oral diuretics. Progress note dated October 27, 2024. 79-year-old female seen today in room 374. Today's hemoglobin was down to 7.6, from 8 yesterday. She continues on 5 L by nasal cannula. Clinically, she appears to be relatively stable. She has had a left-sided thoracentesis, performed on October 23, 2024. Current labs include a white count of 6.9, hemoglobin 8.2, hematocrit 27.2, and platelet count 279,000. The patient has received a total of 4 units of PRBCs. Objective - Vital Signs Vital signs: Vital Signs Temp 97.6 F 10/27/24 08:00 Pulse 64 10/27/24 14:00 Resp 16 10/27/24 14:00 BP 95/56 10/27/24 12:00 Pulse Ox 95 10/27/24 12:00 FiO2 Intake & Output 10/26/24 10/27/24 10/27/24 18:59 06:59 18:59 Intake Total 960 380 Output Total 400 Balance 960 -400 380 Weight 112.4 kg Intake: IV 20 Invasive Line 4 20 Oral 960 360 Output: Urine 400 Other: Voiding Method Toilet Toilet Toilet - Exam No acute distress, oriented 3. Currently on 5 L nasal cannula. HEENT examination is grossly unremarkable. Mucous membranes are moist. No oral lesions. Neck supple. Full range of motion. No adenopathy thyromegaly or neck vein distention. Cardiovascular examination reveals regular rhythm rate. S1-S2 normal. No S3 or S4. No discernible murmur noted. Lungs reveal mostly clear breath sounds. Few scattered crackles at the left lung base. Abdomen soft bowel sounds are heard. No masses or tenderness. Extremities are intact. No cyanosis clubbing or edema. Skin is without rash or lesion. Neurologic examination is brief but nonfocal. - Labs CBC & Chem 7: 10/27/24 12:29 10/27/24 06:57 Labs: Abnormal Lab Results - Last 24 Hours (Table) 10/26/24 10/26/24 10/27/24 Range/Units 16:15 20:09 06:01 RBC (3.80-5.40) m/uL Hgb (11.4-16.0) gm/dL Hct (34.0-46.0) % MCHC (31.0-37.0) g/dL RDW (11.5-15.5) % Lymphocytes # (1.0-4.8) k/uL Sodium (137-145) mmol/L Chloride (98-107) mmol/L Carbon Dioxide (22-30) mmol/L BUN (7-17) mg/dL Creatinine (0.52-1.04) mg/dL Glucose (74-99) mg/dL POC Glucose (mg/dL) 270 H 316 H 208 H (70-110) mg/dL Calcium (8.4-10.2) mg/dL 10/27/24 10/27/24 10/27/24 Range/Units 06:57 06:57 11:21 RBC 2.97 L (3.80-5.40) m/uL Hgb 7.6 L (11.4-16.0) gm/dL Hct 25.7 L (34.0-46.0) % MCHC 29.6 L (31.0-37.0) g/dL RDW 19.4 H (11.5-15.5) % Lymphocytes # 0.6 L (1.0-4.8) k/uL Sodium 133 L (137-145) mmol/L Chloride 90 L (98-107) mmol/L Carbon Dioxide 39 H (22-30) mmol/L BUN 27 H (7-17) mg/dL Creatinine 1.17 H (0.52-1.04) mg/dL Glucose 175 H (74-99) mg/dL POC Glucose (mg/dL) 228 H (70-110) mg/dL Calcium 8.1 L (8.4-10.2) mg/dL 10/27/24 Range/Units 12:29 RBC 3.16 L (3.80-5.40) m/uL Hgb 8.2 L (11.4-16.0) gm/dL Hct 27.2 L (34.0-46.0) % MCHC 30.2 L (31.0-37.0) g/dL RDW 19.5 H (11.5-15.5) % Lymphocytes # 0.6 L (1.0-4.8) k/uL Sodium (137-145) mmol/L Chloride (98-107) mmol/L Carbon Dioxide (22-30) mmol/L BUN (7-17) mg/dL Creatinine (0.52-1.04) mg/dL Glucose (74-99) mg/dL POC Glucose (mg/dL) (70-110) mg/dL Calcium (8.4-10.2) mg/dL Microbiology - Last 24 Hours (Table) 10/23/24 13:45 Gram Stain - Preliminary Pleural Fluid Body Fluid Culture - Preliminary Assessment and Plan Assessment: Acute on chronic dyspnea with signs of decompensated heart failure essentially due to diastolic heart failure and valvular heart disease. Left sided pleural effusion, status post thoracentesis on 10/23/2024 with 850 mL removed. Acute on chronic hypoxic respiratory failure, currently on 5 L of oxygen by nasal cannula. Obstructive sleep apnea maintained on BiPAP pressure of 18/14 cm of water. Acute on chronic anemia, s/p transfusion with a total of 4 units of packed RBC. History of valvular heart disease and the patient is status post aortic valve replacement, mitral valve replacement and tricuspid valve repair in May 2024 performed at [facility]. Dual-chamber pacemaker insertion, November 2017. Paroxysmal A-fib maintained on anticoagulation with Eliquis. Coronary artery disease with previous coronary stenting of the LAD and ostial PDA. Diabetes mellitus type 2. Hyperlipidemia. Hypertension. Severe pulmonary hypertension, group 2. Plan: Plan dated October 27, 2024. The patient is seen today in room 374. The patient's hemoglobin has been dropping a bit. Clinically, the patient is reasonably stable. She continues on 5 L nasal cannula. Labs, x-rays, medications are reviewed. We will continue to follow the patient. Prognosis is guarded. The patient is a DO NOT RESUSCITATE patient. Time with Patient: Less than 30
[2024-10-27 16:02] LABS: % Iron Saturation 15.53 (12.00-45.00)
[2024-10-27 16:30] LABS: Glucose,Whole Blood 329 mg/dL (70-110)
[2024-10-27] MEDS: MAGNESIUM CITRATE 296 ML BOTTLE PO ONE (19:44)
[2024-10-27 20:38] LABS: Glucose,Whole Blood 359 mg/dL (70-110)
[2024-10-28 06:19] LABS: Glucose,Whole Blood 167 mg/dL (70-110)
[2024-10-28] MEDS: SIMETHICONE 40 MG/0.6 ML DROPS 2,000 MG/30 ML BOTTLE PO ONE (06:55)
[2024-10-28 09:46] LABS: Anisocytosis Slight; HCT 25.3 % (34.0-46.0); HGB 7.7 gm/dL (11.4-16.0); Hypochromasia Marked; MCH 26.3 pg (25.0-35.0); MCHC 30.6 g/dL (31.0-37.0); MCV 85.7 fL (80.0-100.0); Mean Platelet Volume 7.1; Platelet Count 175 k/uL (150-450); RBC 2.95 m/uL (3.80-5.40); RDW 19.2 % (11.5-15.5); WBC 6.4 k/uL (3.8-10.6)
[2024-10-28 10:02] LABS: African American GFR (CKD) 52 (>60 ml/min/1.73 sqM); Anion Gap 6 mmol/L; Blood Urea Nitrogen 29 mg/dL (7-17); Calcium 8.2 mg/dL (8.4-10.2); Chloride 90 mmol/L (98-107); Glucose 124 mg/dL (74-99); Non-African American GFR(CKD) 45 (>60 ml/min/1.73 sqM); Potassium 3.6 mmol/L (3.5-5.1); Sodium 136 mmol/L (137-145)
[2024-10-28 10:18] LABS: Carbon Dioxide 40 mmol/L (22-30)
--- NOTE | 2024-10-28 10:48 | P.PN ---
Subjective Progress Note Date: 10/28/24 Lissett remains on hold ,patient is n.p.o., scheduled for EGD today with general surgery. Pending EGD results potential colonoscopy. Hemoglobin decreased to 7.5, platelets 156. Glucose 127, BUN 25, creatinine 1.15, carb 40. Maintaining O2 sats in the 90s on 5 L nasal cannula. Used BiPAP during the night. Denies chest pain, palpitations or increase in shortness of breath. Denies lightheadedness dizziness or focal deficits. Denies abdominal pain. 10/20/2024 hemoglobin remains at 7.5, platelets 159 .status post EGD reporting blood found in the posterior oropharynx, gastroesophageal reflux disease with erosive esophagitis nonbleeding gastritis, nonbleeding duodenitis, duodenal polyp. Scheduled for colonoscopy tomorrow. Positive bowel movement yesterday. Denies nosebleeds, denies nausea, vomiting or diarrhea. Denies abdominal pain. Denies chest pain, palpitations or increased shortness of breath. Denies lightheadedness, dizziness or focal deficits. Bicarb 34, BUN 23, creatinine 1.0 5. Afebrile, normal WBC. 10/21/2024 hemoglobin 7.6, platelets 193 .duodenum, gastric antrum and esophagus biopsies -pathology reporting mild acute duodenitis with focal foveolar metaplasia and submucosal Susan's gland hyperplasia suggestive of peptic duodenitis, minimal chronic gastritis with mucosal reactive changes, Helicobacter pylori organisms not identified, mild chronic esophagitis with rare intramucosal eosinophils consistent with reflux esophagitis. Diuresing well with 24-hour I&O reflecting a negative fluid balance .NPO, Lissett remains on hold, scheduled for colonoscopy. Denies chest pain, palpitations or increase shortness of breath. Maintaining O2 sats in the high 90s to 100% on 4 L nasal cannula. Bicarb 39, BUN 21, creatinine 1.07. 10/28/24 capsule study in progress as per GI. Denies bleeding; denies dark stools. Denies nausea, vomiting. Denies abdominal pain. Denies chest pain, palpitations or shortness of breath. Iron 48,TIBC 309, percentage saturation 15.53, transferrin 221, ferritin 120. Objective - Vital Signs Vital signs: Vital Signs Temp 97.8 F 10/28/24 08:20 Pulse 62 10/28/24 08:20 Resp 17 10/28/24 08:20 BP 109/66 10/28/24 08:20 Pulse Ox 99 10/28/24 08:20 FiO2 Intake & Output 10/27/24 10/28/24 10/28/24 18:59 06:59 18:59 Intake Total 380 20 Balance 380 20 Weight 111.4 kg Intake: IV 20 20 Invasive Line 4 20 20 Oral 360 Other: Voiding Method Toilet Toilet - Exam PHYSICAL EXAM: VITAL SIGNS: [Reviewed] GENERAL: Alert and oriented x 3, sitting up in bed, no acute distress HEENT: Conjunctivae normal. eyes normal. NECK: Supple, no JVD. CARDIOVASCULAR: S1, S2 regular. Systolic murmur. RESPIRATION: Unlabored , equal air entry , clear to auscultation. ABDOMEN: Soft, nontender . No guarding. no masses palpable. Positive bowel sounds. LEGS: Trace edema. no clubbing or cyanosis. NERVOUS SYSTEM: Cranial N 2-12 grossly normal.No focal deficits. Skin: Warm and dry, no rash - Labs CBC & Chem 7: 10/28/24 09:29 10/28/24 09:29 Labs: Abnormal Lab Results - Last 24 Hours (Table) 10/27/24 10/27/24 10/27/24 Range/Units 06:57 11:21 12:29 RBC 3.16 L (3.80-5.40) m/uL Hgb 8.2 L (11.4-16.0) gm/dL Hct 27.2 L (34.0-46.0) % MCHC 30.2 L (31.0-37.0) g/dL RDW 19.5 H (11.5-15.5) % Lymphocytes # 0.6 L (1.0-4.8) k/uL Sodium (137-145) mmol/L Chloride (98-107) mmol/L Carbon Dioxide (22-30) mmol/L BUN (7-17) mg/dL Creatinine (0.52-1.04) mg/dL Glucose (74-99) mg/dL POC Glucose (mg/dL) 228 H (70-110) mg/dL Calcium (8.4-10.2) mg/dL Iron 48 L (50-170) UG/DL 10/27/24 10/27/24 10/28/24 Range/Units 16:27 20:36 06:18 RBC (3.80-5.40) m/uL Hgb (11.4-16.0) gm/dL Hct (34.0-46.0) % MCHC (31.0-37.0) g/dL RDW (11.5-15.5) % Lymphocytes # (1.0-4.8) k/uL Sodium (137-145) mmol/L Chloride (98-107) mmol/L Carbon Dioxide (22-30) mmol/L BUN (7-17) mg/dL Creatinine (0.52-1.04) mg/dL Glucose (74-99) mg/dL POC Glucose (mg/dL) 329 H 359 H 167 H (70-110) mg/dL Calcium (8.4-10.2) mg/dL Iron (50-170) UG/DL 10/28/24 10/28/24 Range/Units 09:29 09:29 RBC 2.95 L (3.80-5.40) m/uL Hgb 7.7 L (11.4-16.0) gm/dL Hct 25.3 L (34.0-46.0) % MCHC 30.6 L (31.0-37.0) g/dL RDW 19.2 H (11.5-15.5) % Lymphocytes # (1.0-4.8) k/uL Sodium 136 L (137-145) mmol/L Chloride 90 L (98-107) mmol/L Carbon Dioxide 40 H (22-30) mmol/L BUN 29 H (7-17) mg/dL Creatinine 1.17 H (0.52-1.04) mg/dL Glucose 124 H (74-99) mg/dL POC Glucose (mg/dL) (70-110) mg/dL Calcium 8.2 L (8.4-10.2) mg/dL Iron (50-170) UG/DL Microbiology - Last 24 Hours (Table) 10/23/24 13:45 Gram Stain - Final Pleural Fluid Body Fluid Culture - Final Assessment and Plan Assessment: Acute on chronic anemia, status post 4 units packed RBCs, status post nondiagnostic EGD and colonoscopy. Capsule study pending. 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 Labs pending. Capsule study in progress. Daughter at bedside, insisting that GI recommended inpatient hematology-consult initiated. Discharge planning in progress. The impression and plan of care has been dictated as directed. : I performed a history and examination of this patient, discussed the same with the dictator. I agree with the dictator's note ,documented as a scribe. Any additional findings or plans will be noted.
[2024-10-28 11:26] VITALS: BMI 43.4
[2024-10-28 12:01] LABS: Glucose,Whole Blood 166 mg/dL (70-110)
--- NOTE | 2024-10-28 12:41 | P.PN ---
Subjective Progress Note Date: 10/28/24 Principal diagnosis: Anemia This is a pleasant 79-year-old female who presented to the emergency department with shortness of breath and lower extremity swelling as well as states swelling all over 19 days ago. She has a past medical history of coronary artery disease, atrial fibrillation, hyperlipidemia, osteoarthritis, sleep apnea with BiPAP, heart valve disease status post replacement May 2024 on Eliquis, and thyroid disorder. Gastroenterology was consulted for anemia when patient was first admitted to the hospital with a hemoglobin of 6.2. At that time she had reported that she did have some dark stools. Did not say that they were black. No abdominal pain, nausea or vomiting. Was stating that she has had poor nutritional intake. D plan was for upper endoscopy for further evaluation at that time however patient's respiratory status was poor and she was not cleared by pulmonology. Gastroenterology then was no longer available in the hospital and we had signed off. During her hospitalization she was seen by general surgery for anemia and had an upper and lower endoscopy with Dr. Hurtado. Upper endoscopy was done on 10/19/2024 with findings of gastritis and duodenitis with biopsy reports showing peptic duodenitis, minimal chronic gastritis and mi ld chronic esophagitis. Colonoscopy was completed on 10/21/2024 status post polypectomy with biopsy report of tubular adenoma. Patient continues to state that she is not having any blood in her stool, no abdominal pain, nausea or vomiting. She is tolerating a regular diet. Her daughter is at the bedside and states that her mother's appetite has been very poor and she has not been eating well prior to coming to the hospital and still has very little appetite. Patient has received 4 units of blood during this hospitalization. She is currently on her Eliquis 5 mg twice daily. Previous plan was for discharge last week with patient to follow-up as an outpatient for small bowel capsule endos copy this . However patient is still been hospitalized and had a slight drop in her hemoglobin from 8.0 yesterday to 7.6 today. She has a normocytic normochromic anemia. No iron studies have been completed. 10/28/2024 Patient seen and examined today as a follow-up. She continues to deny any blood in her stool or black stool. No abdominal pain nausea or vomiting. Underwent small bowel capsule endoscopy this morning. Test is currently in progress. Hemoglobin stable at 7.7, iron 46, saturation, TIBC and ferritin all normal. Hematology was consulted by PCP. Objective - Vital Signs Vital signs: Vital Signs Temp 97.8 F 10/28/24 08:20 Pulse 62 10/28/24 08:20 Resp 17 10/28/24 08:20 BP 109/66 10/28/24 08:20 Pulse Ox 99 10/28/24 08:20 FiO2 Intake & Output 10/27/24 10/28/24 10/28/24 18:59 06:59 18:59 Intake Total 380 20 Balance 380 20 Weight 111.4 kg Intake: IV 20 20 Invasive Line 4 20 20 Oral 360 Other: Voiding Method Toilet Toilet - Exam General appearance: The patient is alert, oriented, appears in no acute distress. HET: Head is normocephalic and atraumatic. Conjunctiva pink. Sclera anicteric. Neck: Supple without lymphadenopathy. Abdomen: Soft, nontender, nondistended. Extremities: Normal skin color and turgor. No pedal edema Skin: No rashes, no jaundice Neurological: No focal deficits. Alert and oriented. - Labs CBC & Chem 7: 10/28/24 09:29 10/28/24 09:29 Labs: Abnormal Lab Results - Last 24 Hours (Table) 10/27/24 10/27/24 10/27/24 Range/Units 06:57 11:21 12:29 RBC 3.16 L (3.80-5.40) m/uL Hgb 8.2 L (11.4-16.0) gm/dL Hct 27.2 L (34.0-46.0) % MCHC 30.2 L (31.0-37.0) g/dL RDW 19.5 H (11.5-15.5) % Lymphocytes # 0.6 L (1.0-4.8) k/uL POC Glucose (mg/dL) 228 H (70-110) mg/dL Iron 48 L (50-170) UG/DL 10/27/24 10/27/24 10/28/24 Range/Units 16:27 20:36 06:18 RBC (3.80-5.40) m/uL Hgb (11.4-16.0) gm/dL Hct (34.0-46.0) % MCHC (31.0-37.0) g/dL RDW (11.5-15.5) % Lymphocytes # (1.0-4.8) k/uL POC Glucose (mg/dL) 329 H 359 H 167 H (70-110) mg/dL Iron (50-170) UG/DL 10/28/24 Range/Units 09:29 RBC 2.95 L (3.80-5.40) m/uL Hgb 7.7 L (11.4-16.0) gm/dL Hct 25.3 L (34.0-46.0) % MCHC 30.6 L (31.0-37.0) g/dL RDW 19.2 H (11.5-15.5) % Lymphocytes # (1.0-4.8) k/uL POC Glucose (mg/dL) (70-110) mg/dL Iron (50-170) UG/DL Microbiology - Last 24 Hours (Table) 10/23/24 13:45 Gram Stain - Final Pleural Fluid Body Fluid Culture - Final Assessment and Plan (1) Anemia Narrative/Plan: 79-year-old female with multiple comorbidities presenting with shortness of breath and lower extremity swelling underwent triple valve surgery she according to patient in May of this year and is on anticoagulation with Eliquis.. Patient has been admitted for the last 19 days with the GI initially on consult for anemia with recommendation for upper endoscopy at that time however patient was not stable from a pulmonary standpoint. She has since been followed by g eneral surgery for anemia without any gross signs of GI bleed. She has had upper and lower endoscopy without any evidence of a GI bleed. Plan was for outpatient small bowel capsule endoscopy however patient still hospitalized. She continues to have a normocytic normochromic anemia without any gross signs of GI bleed. Unclear etiology of anemia may be secondary to poor nutrition, or anemia of chronic disease. However will complete testing to rule out sources a GI bleed. Plan for small bowel capsule endoscopy tomorrow. Iron studies ordered. Current Visit: Yes Status: Acute Code(s): D64.9 - ANEMIA, UNSPECIFIED SNOMED Code(s): 645239566 (2) Shortness of breath Current Visit: Yes Status: Acute Code(s): R06.02 - SHORTNESS OF BREATH SNOMED Code(s): 108798967 (3) Coronary artery disease Current Visit: Yes Status: Acute Code(s): I25.10 - ATHSCL HEART DISEASE OF N ATIVE CORONARY ARTERY W/O ANG PCTRS SNOMED Code(s): 00654604 (4) Atrial fibrillation Current Visit: Yes Status: Acute Code(s): I48.91 - UNSPECIFIED ATRIAL FIBRILLATION SNOMED Code(s): 72135097 (5) Pacemaker Current Visit: Yes Status: Acute Code(s): Z95.0 - PRESENCE OF CARDIAC PACEMAKER SNOMED Code(s): 235933645 (6) Insulin dependent type 2 diabetes mellitus Current Visit: No Status: Acute Code(s): E11.9 - TYPE 2 DIABETES MELLITUS WITHOUT COMPLICATIONS SNOMED Code(s): 806646384 (7) History of heart valve replacement Current Visit: Yes Status: Acute Code(s): Z95.2 - PRESENCE OF PROSTHETIC HEART VALVE SNOMED Code(s): 300939461 Plan: 1. Continue symptomatic and supportive care 2. May continue Eliquis 3. Daily CBC, transfuse for hemoglobin less than 7 4. Protonix 40 mg daily for GI prophylaxis 5. Iron studies, ferritin ordered 6. Patient is status post upper endoscopy and colonoscopy without any findings of GI bleed 7. May have regular diet for lunch 8. Small bowel capsule endoscopy in progress 9. Hematology on consult, await further recommendations Thank you for this consultation, we will continue to follow. Dr. Bailee Allen I agree with the dictator's note, documented as a scribe by Marline Ansari.
[2024-10-28] MEDS: SODIUM FERRIC GLUCONAT-SUCROSE 125 MG in SODIUM CHLORIDE 0.9% 100 ML IVPB SCH (13:18)
--- NOTE | 2024-10-28 16:05 | P.PN ---
Subjective Progress Note Date: 10/28/24 Principal diagnosis: Anemia. On 10/15/2024, the patient is being seen for a follow-up. Doing well. Still has edema lower extremities. Nevertheless, the fluid balance has been -2.5 L over the past 24 hours and if she is producing good urine output. She remains on Lasix 60 mg in the morning and 40 mg in the evenings p.o. and the patient remains on Aldactone 25 mg p.o. daily and Zaroxolyn 5 mg p.o. daily. She is utilizing her BiPAP routinely. No labs are available from today. Nevertheless, the patient is awake and alert and communicating. No other significant events o vernight. On 10/16/2024, the patient remains clinically stable. No new complaints. Remains in negative fluid balance. She has developed some metabolic alkalosis with a serum bicarb of 37. BUN is 24 with a creatinine of 1.2. The white cell count is at 7.7 with a hemoglobin of 7.5. Continues to utilize her BiPAP on a regular basis. After BiPAP, she is on 5 L of oxygen nasal cannula. No new complaints. Diuretics include Lasix 60 mg morning and 40 mg the evening and the patient remains on Zaroxolyn and Aldactone. On 10/17/2024, the patient is sitting up in a chair and she is calm and co mfortable and she reports improvement in her volume status and edema in lower extremities. She remains negative fluid balance. She continues to be on diuretics, a combination of Lasix, Aldactone and Zaroxolyn. Fluid balance is negative. BUN 25 with a creatinine of 1.1. Sodium levels at 133. No altered mentation. Using BiPAP and once off the BiPAP, the patient is on oxygen at 5 L/min nasal cannula. No cough. No sputum production. No fever or chills. No altered mentation. On 10/18/2024, the patient is being seen for a follow-up. Doing well. No specific complaints. Continues to diurese. Negative fluid balance. Maintain on BiPAP on and off during the day and continuously overnight. While off the BiPAP, the patient is on 5 L with a pulse ox of 99%. Hemoglobin is 8.1. Awaiting EGD and colonoscopy. The BUN is 25 with a creatinine of 1.23 and a serum bicarb is at 39 and sodium levels at 139. Remains on Lasix, Zaroxolyn and Aldactone. The patient is seen today October 19, 2024 in follow-up on the selective care unit. She is currently resting comfortably in bed. Awake and alert in no acute distress. She is maintaining O2 saturations in the 90s on 5 L/min per nasal ca nnula. She is utilizing BiPAP throughout the evenings and during the day while napping. She did undergo EGD today revealed no evidence of active bleeding. There is gastritis, duodenitis. Erosive esophagitis. White count 6.1. Hemoglobin 7.5. Platelets 156. Sodium 134. Potassium 3.7. Bicarb 40. BUN 25. Creatinine 1.15. Glucose 143. She remains on diuretics. The patient is seen today October 21, 2024 in follow-up on the selective care unit. She is currently sitting up in bed. Awake and alert in no acute distress. Maintaining good O2 saturations in the 90s on 5 L/min per nasal cannula. She is utilizing her BiPap at night. Plan is for colonoscopy today. White count 5.5. Hemoglobin 7.6. Platelets 193. Sodium 134. Potassium 3.7. Bicarb 39. BUN 21. Creatinine 1.07. Glucose 95. She has been afebrile. Hemodynamically stable. The patient is seen today October 23, 2024 in follow-up on the selective care unit. She is currently sitting up in a chair at the bedside. Awake and alert in no acute distress. Receiving a unit of packed red blood cells. Denies any w orsening shortness of breath, cough or congestion. She did have ongoing left pleural effusion. Ultrasound did show significant fluid. She underwent a left- sided thoracentesis today with Dr. Ledbetter. 850 mL of dark yellow fluid removed. She tolerated the procedure well. Chest x-ray showed improvement. No evidence of pneumothorax. She is maintaining O2 saturations in the high 90s on 5 L/min p er nasal cannula. She is afebrile. Hemodynamically stable. White count 6.5. Hemoglobin 7.3. Platelets 171. Sodium 134. Potassium 3.7. Bicarb 38. BUN 20. Creatinine 1.13. Glucose 182. Eliquis remains on hold. The patient is seen today October 24, 2024 in follow-up on the selective care u nit. She is currently sitting up in a chair. Awake and alert in no acute distress. Denies any worsening shortness of breath, cough or congestion. She did undergo a left-sided thoracentesis yesterday. She remains on IV diuretics. White count 5.8. Hemoglobin 8.1. Platelets 170. Sodium 134. Potassium 3.8. Bicarb 35. BUN 19. Creatinine 1.08. Sodium 137. The patient is seen today October 26, 2024 in follow-up on the selective care unit. She is currently resting in bed. Awake and alert in no acute distress. Maintaining O2 saturations in the 90s on 5 L/min per nasal cannula. She denies any worsening shortness of breath, cough or congestion. She did undergo a left- sided thoracentesis on October 23, 2024. Cytology pending. White count 6.1. Hemoglobin 8.0. Platelets 187. Sodium 135. Potassium 3.3. Bicarb 38. BUN 22. Creatinine 1.17. Glucose 111. She remains on Eliquis. Remains on IV and oral diuretics. Progress note dated October 27, 2024. 79-year-old female seen today in room 374. Today's hemoglobin was down to 7.6, from 8 yesterday. She continues on 5 L by nasal cannula. Clinically, she appears to be relatively stable. She has had a left-sided thoracentesis, performed on October 23, 2024. Current labs include a white count of 6.9, hemoglobin 8.2, hematocrit 27.2, and platelet count 279,000. The patient has received a total of 4 units of PRBCs. Progress note dated October 28, 2024. 79-year-old female seen today in room 374. Her hemoglobin was 7.7. Thus far during this hospitalization, she has received 4 units of packed red blood cells. She continues on O2 at 4 L by nasal cannula. She is not receiving any IV fluids. She apparently is going to receive some iron infusions. Current labs include a white count of 6.4, hemoglobin 7.7, hematocrit 25.3, and a normal platelet count. Sodium 136, potassium 3.6, chloride 90, CO2 40, BUN 29, and creatinine 1.17. Glucose is 166. Calcium 8.2. Objective - Vital Signs Vital signs: Vital Signs Temp 97.8 F 10/28/24 08:20 Pulse 62 10/28/24 13:41 Resp 17 10/28/24 13:41 BP 109/66 10/28/24 08:20 Pulse Ox 99 10/28/24 08:20 FiO2 Intake & Output 10/27/24 10/28/24 10/28/24 18:59 06:59 18:59 Intake Total 380 20 20 Balance 380 20 20 Weight 111.4 kg 111.4 kg Intake: IV 20 20 20 Invasive Line 4 20 20 20 Oral 360 Other: Voiding Method Toilet Toilet Toilet - Exam No acute distress, oriented 3. Currently on 4 L nasal cannula. HEENT examination is grossly unremarkable. Mucous membranes are moist. No oral lesions. Neck supple. Full range of motion. No adenopathy thyromegaly or neck vein distention. Cardiovascular examination reveals regular rhythm rate. S1-S2 normal. No S3 or S4. No discernible murmur noted. Lungs reveal mostly clear breath sounds. Few scattered crackles at the left melissa ng base. Abdomen soft bowel sounds are heard. No masses or tenderness. Extremities are intact. No cyanosis clubbing or edema. Skin is without rash or lesion. Neurologic examination is brief but nonfocal. - Labs CBC & Chem 7: 10/28/24 09:29 10/28/24 09:29 Labs: Abnormal Lab Results - Last 24 Hours (Table) 10/27/24 10/27/24 10/27/24 Range/Units 06:57 16:27 20:36 RBC (3.80-5.40) m/uL Hgb (11.4-16.0) gm/dL Hct (34.0-46.0) % MCHC (31.0-37.0) g/dL RDW (11.5-15.5) % Sodium (137-145) mmol/L Chloride (98-107) mmol/L Carbon Dioxide (22-30) mmol/L BUN (7-17) mg/dL Creatinine (0.52-1.04) mg/dL Glucose (74-99) mg/dL POC Glucose (mg/dL) 329 H 359 H (70-110) mg/dL Calcium (8.4-10.2) mg/dL Iron 48 L (50-170) UG/DL 10/28/24 10/28/24 10/28/24 Range/Units 06:18 09:29 09:29 RBC 2.95 L (3.80-5.40) m/uL Hgb 7.7 L (11.4-16.0) gm/dL Hct 25.3 L (34.0-46.0) % MCHC 30.6 L (31.0-37.0) g/dL RDW 19.2 H (11.5-15.5) % Sodium 136 L (137-145) mmol/L Chloride 90 L (98-107) mmol/L Carbon Dioxide 40 H (22-30) mmol/L BUN 29 H (7-17) mg/dL Creatinine 1.17 H (0.52-1.04) mg/dL Glucose 124 H (74-99) mg/dL POC Glucose (mg/dL) 167 H (70-110) mg/dL Calcium 8.2 L (8.4-10.2) mg/dL Iron (50-170) UG/DL 10/28/24 Range/Units 11:59 RBC (3.80-5.40) m/uL Hgb (11.4-16.0) gm/dL Hct (34.0-46.0) % MCHC (31.0-37.0) g/dL RDW (11.5-15.5) % Sodium (137-145) mmol/L Chloride (98-107) mmol/L Carbon Dioxide (22-30) mmol/L BUN (7-17) mg/dL Creatinine (0.52-1.04) mg/dL Glucose (74-99) mg/dL POC Glucose (mg/dL) 166 H (70-110) mg/dL Calcium (8.4-10.2) mg/dL Iron (50-170) UG/DL Microbiology - Last 24 Hours (Table) 10/23/24 13:45 Gram Stain - Final Pleural Fluid Body Fluid Culture - Final Assessment and Plan Assessment: Acute on chronic dyspnea with signs of decompensated heart failure essentially due to diastolic heart failure and valvular heart disease. Left sided pleural effusion, status post thoracentesis on 10/23/2024 with 850 mL removed. Acute on chronic hypoxic respiratory failure, currently on 5 L of oxygen by nasal cannula. Obstructive sleep apnea maintained on BiPAP pressure of 18/14 cm of water. Acute on chronic anemia, s/p transfusion with a total of 4 units of packed RBC. History of valvular heart disease and the patient is status post aortic valve replacement, mitral valve replacement and tricuspid valve repair in May 2024 performed at [facility]. Dual-chamber pacemaker insertion, November 2017. Paroxysmal A-fib maintained on anticoagulation with Eliquis. Coronary artery disease with previous coronary stenting of the LAD and ostial PDA. Diabetes mellitus type 2. Hyperlipidemia. Hypertension. Severe pulmonary hypertension, group 2. Plan: Plan dated October 27, 2024. The patient is seen today in room 374. The patient's hemoglobin has been dropping a bit. Clinically, the patient is reasonably stable. She continues on 5 L nasal cannula. Labs, x-rays, medications are reviewed. We will continue to follow the patient. Prognosis is guarded. The patient is a DO NOT RESUSCITATE patient. Plan dated October 28, 2024. The patient is again seen today in room 374. She is resting comfortably in bed family members are at the bedside. She continues on oxygen at 4 L. She is awake and alert. No acute distress. She is not receiving any IV fluids. Apparently she is going to receive some iron infusions. Her hemoglobin today was 7.7. Since being here in the hospital she has received a total of 4 units of packed red blood cells. Labs, x-rays, medications are reviewed. The patient is a DO NOT RESUSCITATE patient. We will continue to follow the patient, and make recommendations along the way. Time with Patient: Less than 30
[2024-10-28 16:56] LABS: Glucose,Whole Blood 275 mg/dL (70-110)
--- NOTE | 2024-10-28 17:34 | P.CONS ---
History of Present Illness - Reason for Consult Consult date: 10/28/24 anemia Requesting physician: Rupinder Lujan - Chief Complaint weakness, anemia - History of Present Illness Patient is a 79-year-old female with a significant history of prosthetic heart valve and cardiac stents, anticoagulated with Eliquis and aspirin. Consult was placed for anemia. Patient has had prolonged admission and initially presented with weakness and shortness of breath. Upon admission hemoglobin was noted at 6.2 subsequently 5.5. Since admission patient has received 4 units of PRBCs. Patient has been evaluated by general surgery and underwent upper and lower scopes with no evidence of acute bleeding. Biopsies obtained were negative for malignancy. GI has also been consulted and ordered capsule study. Iron studies obtained on 10/27 showed iron saturation 15.5% and ferritin 120. CBC on 10/27 showing hemoglobin 8.2, MCV 86.1, WBC 6.9, platelets 179,000, differential showing no significant abnormalities. Upon trending labs mild anemia in the 10 range was noted in 2013 and 2021. Bilirubin 0.6. Creatinine 1.17, GFR 45. Patient denies noting any gray blood in stool or melena. She has been restarted on Eliquis and baby aspirin. Patient states she has been on aspirin for at least 25 years since having cardiac stent placed, and was started on eliquis in May 2024 after having prosthetic heart valve placed. 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 HAD THYROID AND PARATHYROID REMOVAL. TOTAL LEFT KNEE REPLACEMENT, CATARACT RT EYE, CATARACT LEFT EYE SURGERY ,COLONOSCOPY, TVAR- , Aortic valve replacement 10/2018 Past Anesthesia/Blood Transfusion Reactions: No Reported Reaction Type of Cardiac Device: Permanent Pacemaker Device Placement Date:: PACEMAKER NOV 2017. Past Psychological History: No Psychological Hx Reported Smoking Status: Never smoker Past Alcohol Use History: None Reported Past Drug Use History: None Reported - Past Family History Daughter(s) Family Medical History: Deep Vein Thrombosis (DVT) Sister(s) Family Medical History: Cancer Additional Family Medical History / Comment(s): BREAST CANCER Medications and Allergies Home Medications Medication Instructions Recorded Confirmed Type Levothyroxine Sodium [Levoxyl] 175 mcg PO DAILY 10/25/20 10/08/24 History FLUoxetine HCL [PROzac] 10 mg PO DAILY 10/08/24 10/08/24 History Furosemide [Lasix] 20 mg PO BID 10/08/24 10/08/24 History Insulin Aspart [NovoLOG Flexpen] 40 units SQ AC-TID 10/08/24 10/08/24 History Insulin Glargine,Hum.rec.anlog 20 - 30 units SQ HS 10/08/24 10/08/24 History [Lantus Solostar Pen] Rosuvastatin Calcium [Crestor] 40 mg PO HS 10/08/24 10/08/24 History Apixaban [Eliquis] 5 mg PO BID #0 10/22/24 10/08/24 Rx Aspirin 81 mg PO DAILY tab 10/22/24 Rx Furosemide [Lasix] 40 mg PO BID #60 tab 10/22/24 Rx Lactulose [Cephulac] 30 gm PO BID #900 ml 10/22/24 Rx Metoprolol Succinate (ER) [Toprol 50 mg PO BID #60 tab 10/22/24 Rx XL] Pantoprazole Sodium [Protonix] 40 mg PO DAILY #30 tab 10/22/24 Rx Sennosides [Senokot] 8.6 mg PO DAILY PRN tab 10/22/24 Rx Spironolactone [Aldactone] 25 mg PO DAILY #30 tab 10/22/24 Rx metOLazone [Zaroxolyn] 5 mg PO DAILY #30 tab 10/22/24 Rx Allergies Allergy/AdvReac Type Severity Reaction Status Date / Time nitrofurantoin Allergy Rash/Hives Verified 10/08/24 19:32 macrocrystalline [From Macrodantin] phenazopyridine HCl Allergy Rash/Hives Verified 10/08/24 19:32 [From Pyridium] Physical Exam Vitals: Vital Signs Temp Pulse Resp BP Pulse Ox 10/28/24 08:20 97.8 F 62 17 109/66 99 10/28/24 04:12 97.4 F L 63 16 99/52 95 10/28/24 01:19 16 10/27/24 23:48 97.4 F L 62 16 120/75 92 L 10/27/24 20:00 16 10/27/24 19:53 98.5 F 68 16 109/69 98 10/27/24 15:17 98.7 F 70 16 113/65 95 10/27/24 14:00 64 16 Intake and Output 10/27/24 10/28/24 10/28/24 22:59 06:59 14:59 Intake Total 10 10 Balance 10 10 Intake: IV 10 10 Invasive Line 4 10 10 Other: Voiding Method Toilet Toilet Weight 111.4 kg 111.4 kg - Constitutional General appearance: no acute distress, obese - EENT Eyes: anicteric sclerae, EOMI ENT: hearing grossly normal - Respiratory Respiratory: left: rales - Cardiovascular Abnormal Heart Sounds: systolic murmur - Gastrointestinal General gastrointestinal: soft, no tenderness - Integumentary Integumentary: no cyanotic, pale - Psychiatric Psychiatric: A&O x's 3 Results CBC & Chem 7: 10/28/24 09:29 10/28/24 09:29 Labs: Abnormal Lab Results - Last 24 Hours (Table) 10/27/24 10/27/24 10/27/24 Range/Units 06:57 12:29 16:27 RBC 3.16 L (3.80-5.40) m/uL Hgb 8.2 L (11.4-16.0) gm/dL Hct 27.2 L (34.0-46.0) % MCHC 30.2 L (31.0-37.0) g/dL RDW 19.5 H (11.5-15.5) % Lymphocytes # 0.6 L (1.0-4.8) k/uL Sodium (137-145) mmol/L Chloride (98-107) mmol/L Carbon Dioxide (22-30) mmol/L BUN (7-17) mg/dL Creatinine (0.52-1.04) mg/dL Glucose (74-99) mg/dL POC Glucose (mg/dL) 329 H (70-110) mg/dL Calcium (8.4-10.2) mg/dL Iron 48 L (50-170) UG/DL 10/27/24 10/28/24 10/28/24 Range/Units 20:36 06:18 09:29 RBC 2.95 L (3.80-5.40) m/uL Hgb 7.7 L (11.4-16.0) gm/dL Hct 25.3 L (34.0-46.0) % MCHC 30.6 L (31.0-37.0) g/dL RDW 19.2 H (11.5-15.5) % Lymphocytes # (1.0-4.8) k/uL Sodium (137-145) mmol/L Chloride (98-107) mmol/L Carbon Dioxide (22-30) mmol/L BUN (7-17) mg/dL Creatinine (0.52-1.04) mg/dL Glucose (74-99) mg/dL POC Glucose (mg/dL) 359 H 167 H (70-110) mg/dL Calcium (8.4-10.2) mg/dL Iron (50-170) UG/DL 10/28/24 10/28/24 Range/Units 09:29 11:59 RBC (3.80-5.40) m/uL Hgb (11.4-16.0) gm/dL Hct (34.0-46.0) % MCHC (31.0-37.0) g/dL RDW (11.5-15.5) % Lymphocytes # (1.0-4.8) k/uL Sodium 136 L (137-145) mmol/L Chloride 90 L (98-107) mmol/L Carbon Dioxide 40 H (22-30) mmol/L BUN 29 H (7-17) mg/dL Creatinine 1.17 H (0.52-1.04) mg/dL Glucose 124 H (74-99) mg/dL POC Glucose (mg/dL) 166 H (70-110) mg/dL Calcium 8.2 L (8.4-10.2) mg/dL Iron (50-170) UG/DL Microbiology - Last 24 Hours (Table) 10/23/24 13:45 Gram Stain - Final Pleural Fluid Body Fluid Culture - Final Chest x-ray: report reviewed Assessment and Plan (1) Anemia Current Visit: Yes Status: Acute Code(s): D64.9 - ANEMIA, UNSPECIFIED SNOMED Code(s): 150849135 (2) Coronary artery disease Current Visit: Yes Status: Acute Code(s): I25.10 - ATHSCL HEART DISEASE OF [place] CORONARY ARTERY W/O ANG PCTRS SNOMED Code(s): 87894384 (3) History of heart valve replacement Current Visit: Yes Status: Acute Code(s): Z95.2 - PRESENCE OF PROSTHETIC HEART VALVE SNOMED Code(s): 939359940 Plan: Iron deficiency anemia: Significant history of prosthetic heart valve and cardiac stents, anticoagulated with Eliquis (started 05/2024) and aspirin. Presented with weakness and shortness of breath. Denies gray blood in stool or melena. -Upon admission hemoglobin was noted at 6.2 and subsequently 5.5. Since admi ssion patient has received 4 units of PRBCs. -Underwent upper and lower scopes with no evidence of acute bleeding. Biopsies obtained were negative for malignancy. GI has also been consulted and ordered capsule study, results pending -Iron studies obtained on 10/27 showed iron saturation 15.5% and ferritin 120. Would expect these studies to be higher after receiving 4 units of PRBCs. CBC yesterday showing hemoglobin 8.2, MCV 86.1, WBC 6.9, platelets 179,000, differential showing no significant abnormalities. Upon trending labs, mild anemia in the 10 range was noted in 2013 and 2021. Bilirubin 0.6. Creatinine 1.17, GFR 45. 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 Iron studies showing lower than expected iron saturation and ferritin s/p 4 units of PRBCs. Parenteral iron ordered x 4 doses. Will schedule additional iron transfusions in the outpt setting -For now she can continue eliquis/aspirin. If persisting drops in hgb is noted, will need to have cardiology reevaluate to provide further anticoagulation recs regarding hx of cardiac stents and recent prosthetic heart valve placement -Continue to closely monitor CBC. Transfuse for hgb less than 7 or if symptomatic Doctor attests: I performed a history and physical examination of this patient, developed impression and plan of care. Discussed with dictator. I agree with dictators note, documented as a scribe.
[2024-10-28 20:09] LABS: Glucose,Whole Blood 264 mg/dL (70-110)
[2024-10-28 21:51] LABS: Glucose,Whole Blood 322 mg/dL (70-110)
[2024-10-29 06:26] LABS: Glucose,Whole Blood 159 mg/dL (70-110)
[2024-10-29 11:39] LABS: Glucose,Whole Blood 238 mg/dL (70-110)
[2024-10-29 11:51] LABS: Anisocytosis Slight; Basophils % (A) 0 %; Eosinophils # (A) 0.2 k/uL (0-0.7); Eosinophils % (A) 3 %; HGB 8.2 gm/dL (11.4-16.0); Hypochromasia Marked; Lymphocytes # (A) 0.6 k/uL (1.0-4.8); Lymphocytes % (A) 10 %; MCH 26.3 pg (25.0-35.0); MCHC 30.4 g/dL (31.0-37.0); MCV 86.4 fL (80.0-100.0); Mean Platelet Volume 8.3; Monocytes # (A) 0.3 k/uL (0-1.0); Monocytes % (A) 5 %; Neutrophils # (A) 5.1 k/uL (1.3-7.7); Neutrophils % (A) 80 %; Platelet Count 192 k/uL (150-450); Poikilocytosis Slight; RBC 3.12 m/uL (3.80-5.40); RDW 19.2 % (11.5-15.5); WBC 6.3 k/uL (3.8-10.6)
--- NOTE | 2024-10-29 13:32 | P.PN ---
Subjective Progress Note Date: 10/29/24 This is a 79-year-old female patient who is being seen in consultation for metabolic alkalosis. The patient was hospitalized on 10/08/2024 and the patient was in significant volume overload and she was also complaining of some shortness of breath and the patient's chest x-ray showed a left-sided pleural effusion. The patient had previous history of aortic valve placement and mitral valve replacement and tricuspid valve repair patient also has history of coronary artery disease and the patient has undergone previous stenting of the mid LAD and ostial PDA.The patient has a dual-chamber pacemaker insertion. She has paroxysmal atrial fibrillation, diabetes mellitus type 2, hypertension hyperlipidemia. The patient underwent her cardiac surgery at the [facility] back in May of this year. She has been followed by [facility]. She is also known to have obstructive sleep apnea. I have seen her in the sleep center in the past and the patient has been maintained on the BiPAP pressure of 18 over 14 cm of water and she has been quite compliant with treatment. She is also on oxygen and she had progressive worsening in her hypoxemia along with increased shortness of breath. Based on that, the patient came into the hospital. EKG showed a paced rhythm. The chest x-ray showed cardiomegaly and bilateral pleural effusion worse on the left. The patient's hemoglobin was low at 6.2 and dropped down to 5.5. The patient was transfused with a total of 3 units of packed RBC during the current hospitalization the patient's hemoglobin is currently is at 8.2. A repeat echocardiogram was done during this current hospitalization on 10/09/2024 and the patient was found to have a normal LV with an ejection fraction of 6065%, severe pulm hypertension with a PA pressure of 56. The patient had mitral valve replacement with mild mitral stenosis and aortic valve replacement without any valvular abnormalities or regurgitation. No evidence of any pericardial effusion. During this current admission, the patient was subjected to diuresis the patient is currently on Lasix 40 mg IV every 8 hours and the patient is also on Zaroxolyn 5 mg p.o. daily and Aldactone 25 mg p.o. daily. I checked the fluid balance and over the past 4 days, the patient has been in the negative fluid balance of at least 8 L. There has been also steady increase in his serum bicarb. The patient is i nitial bicarb at the time of admission was 28 and currently is up to 42. I obtained a follow-up chest x-ray this morning and it showed overall stable findings consistent with CHF and pulm vessel congestion. There is a small to moderate-sized left-sided pleural effusion along with some adjacent atelectatic change. Hemoglobin is at 8.2 with a white cell count of 6.4 and a platelet count of 127. BUN is 19 with a creatinine of 1.09 and sodium levels at 136 and potassium levels at 3.1. She remains on Levemir insulin 20 units nightly and NovoLog sliding scale coverage. She is also on Toprol 50 mg p.o. twice daily and IV Protonix. She remains on aspirin. On 10/14/2024, the patient is being seen for a follow-up. The patient is doing well. She continues to diurese well. Fluid balance has been -2.5 L over the past 24 hours. Nevertheless, she continues to have significant amount of edema in the abdomen lower extremities involving the thighs. BUN is 18 with a creatinine of 1.22. The patient developed metabolic alkalosis. The serum bicarb was quite elevated and the patient received a total of 2 doses of Diamox and the serum bicarb is down to 37. Meanwhile, the diuretics have been modified and the patient is currently on Lasix 60 mg in the morning and 40 mg in the evening. The patient is also on Zaroxolyn 5 mg p.o. daily and Aldactone 25 mg p.o. daily. The patient is utilizing her BiPAP and once off the BiPAP, she is maintaining herself on oxygen at 5 L/min nasal cannula. No significant shortness of breath. No cough or sputum production. Edema still extensive. On 10/15/2024, the patient is being seen for a follow-up. Doing well. Still has edema lower extremities. Nevertheless, the fluid balance has been -2.5 L over the past 24 hours and if she is producing good urine output. She remains on Lasix 60 mg in the morning and 40 mg in the evenings p.o. and the patient remains on Aldactone 25 mg p.o. daily and Zaroxolyn 5 mg p.o. daily. She is utilizing her BiPAP routinely. No labs are available from today. Nevertheless, the patient is awake and alert and communicating. No other significant events overnight. On 10/16/2024, the patient remains clinically stable. No new complaints. Remains in negative fluid balance. She has developed some metabolic alkalosis with a serum bicarb of 37. BUN is 24 with a creatinine of 1.2. The white cell count is at 7.7 with a hemoglobin of 7.5. Continues to utilize her BiPAP on a regular basis. After BiPAP, she is on 5 L of oxygen nasal cannula. No new complaints. Diuretics include Lasix 60 mg morning and 40 mg the evening and the patient remains on Zaroxolyn and Aldactone. On 10/17/2024, the patient is sitting up in a chair and she is calm and comfortable and she reports improvement in her volume status and edema in lower extremities. She remains negative fluid balance. She continues to be on diu retics, a combination of Lasix, Aldactone and Zaroxolyn. Fluid balance is negative. BUN 25 with a creatinine of 1.1. Sodium levels at 133. No altered mentation. Using BiPAP and once off the BiPAP, the patient is on oxygen at 5 L/min nasal cannula. No cough. No sputum production. No fever or chills. No altered mentation. On 10/18/2024, the patient is being seen for a follow-up. Doing well. No specific complaints. Continues to diurese. Negative fluid balance. Maintain on BiPAP on and off during the day and continuously overnight. While off the BiPAP, the patient is on 5 L with a pulse ox of 99%. Hemoglobin is 8.1. Awaiting EGD and colonoscopy. The BUN is 25 with a creatinine of 1.23 and a serum bicarb is at 39 and sodium levels at 139. Remains on Lasix, Zaroxolyn and Aldactone. The patient is seen today October 19, 2024 in follow-up on the selective care unit. She is currently resting comfortably in bed. Awake and alert in no acute distress. She is maintaining O2 saturations in the 90s on 5 L/min per nasal cannula. She is utilizing BiPAP throughout the evenings and during the day while napping. She did undergo EGD today revealed no evidence of active bleeding. There is gastritis, duodenitis. Erosive esophagitis. White count 6.1. Hemoglobin 7.5. Platelets 156. Sodium 134. Potassium 3.7. Bicarb 40. BUN 25. Creatinine 1.15. Glucose 143. She remains on diuretics. The patient is seen today October 21, 2024 in follow-up on the [facility] it. She is currently sitting up in bed. Awake and alert in no acute distress. Maintaining good O2 saturations in the 90s on 5 L/min per nasal cannula. She is utilizing her BiPap at night. Plan is for colonoscopy today. White count 5.5. Hemoglobin 7.6. Platelets 193. Sodium 134. Potassium 3.7. Bicarb 39. BUN 21. Creatinine 1.07. Glucose 95. She has been afebrile. Hemodynamically sta ble. The patient is seen today October 23, 2024 in follow-up on the selective care unit. She is currently sitting up in a chair at the bedside. Awake and alert in no acute distress. Receiving a unit of packed red blood cells. Denies any worsening shortness of breath, cough or congestion. She did have ongoing left pleural effusion. Ultrasound did show significant fluid. She underwent a left- sided thoracentesis today with Dr. Ledbetter. 850 mL of dark yellow fluid removed. She tolerated the procedure well. Chest x-ray showed improvement. No evidence of pneumothorax. She is maintaining O2 saturations in the high 90s on 5 L/min per nasal cannula. She is afebrile. Hemodynamically stable. White count 6.5. Hemoglobin 7.3. Platelets 171. Sodium 134. Potassium 3.7. Bicarb 38. BUN 20. Creatinine 1.13. Glucose 182. Eliquis remains on hold. The patient is seen today October 24, 2024 in follow-up on the [facility] care unit. She is currently sitting up in a chair. Awake and alert in no acute distress. Denies any worsening shortness of breath, cough or congestion. She d id undergo a left-sided thoracentesis yesterday. She remains on IV diuretics. White count 5.8. Hemoglobin 8.1. Platelets 170. Sodium 134. Potassium 3.8. Bicarb 35. BUN 19. Creatinine 1.08. Sodium 137. The patient is seen today October 26, 2024 in follow-up on the selective care unit. She is currently resting in bed. Awake and alert in no acute distress. Maintaining O2 saturations in the 90s on 5 L/min per nasal cannula. She denies any worsening shortness of breath, cough or congestion. She did undergo a left- sided thoracentesis on October 23, 2024. Cytology pending. White count 6.1. Hemoglobin 8.0. Platelets 187. Sodium 135. Potassium 3.3. Bicarb 38. BUN 22. Creatinine 1.17. Glucose 111. She remains on Eliquis. Remains on IV and oral diuretics. The patient is seen today October 29, 2024 in follow-up on the regular medical floor. She was transferred off the selective care unit. She is currently sitting up in bed. Awake and alert in no acute distress. Maintaining O2 saturations in the 90s on 4 L/min per nasal cannula. She does utilize her home BiPAP throughout the night. She has been afebrile. Hemodynamically stable. She is status post 4 units of packed red blood cells this admission. Current hemoglobin 8.2. Platelets 192. White count 6.3. She was initiated on a capsule study yesterday. She has also been initiated on iron supplements per hematology. She is continued on anticoagulation in the form of Eliquis. Objective - Vital Signs Vital signs: Vital Signs Temp 97.8 F 10/29/24 06:51 Pulse 62 10/29/24 06:51 Resp 18 10/29/24 06:51 BP 108/66 10/29/24 06:51 Pulse Ox 96 10/29/24 06:51 FiO2 Intake & Output 10/28/24 10/29/24 10/29/24 18:59 06:59 18:59 Intake Total 20 Balance 20 Weight 111.4 kg 111 kg Intake: IV 20 Invasive Line 4 20 Other: Voiding Method Toilet Toilet Toilet External Catheter - Exam GENERAL EXAM: Alert, 79-year-old female, sitting up in bed, on 4 L nasal cannula, in no apparent distress. HEAD: Normocephalic. EYES: Normal reaction of pupils, equal size. NOSE: Clear with pink turbinates. THROAT: No erythema or exudates. NECK: No masses, no JVD. CHEST: No chest wall deformity. LUNGS: Equal air entry with no wheeze rhonchi or crackles. CVS: S1 and S2 normal with no audible murmur, regular rhythm. ABDOMEN: No hepatosplenomegaly, normal bowel sounds, no guarding or rigidity. SPINE: No scoliosis or deformity SKIN: No rashes CENTRAL NERVOUS SYSTEM: No focal deficits, tone is normal in all 4 extremities. EXTREMITIES: There is no peripheral edema. No clubbing, no cyanosis. Peripheral pulses are intact. - Labs CBC & Chem 7: 10/29/24 11:25 10/28/24 09:29 Labs: Abnormal Lab Results - Last 24 Hours (Table) 10/28/24 10/28/24 10/28/24 Range/Units 16:54 20:08 21:50 RBC (3.80-5.40) m/uL Hgb (11.4-16.0) gm/dL Hct (34.0-46.0) % MCHC (31.0-37.0) g/dL RDW (11.5-15.5) % Lymphocytes # (1.0-4.8) k/uL POC Glucose (mg/dL) 275 H 264 H 322 H (70-110) mg/dL 10/29/24 10/29/24 10/29/24 Range/Units 06:25 11:25 11:38 RBC 3.12 L (3.80-5.40) m/uL Hgb 8.2 L (11.4-16.0) gm/dL Hct 27.0 L (34.0-46.0) % MCHC 30.4 L (31.0-37.0) g/dL RDW 19.2 H (11.5-15.5) % Lymphocytes # 0.6 L (1.0-4.8) k/uL POC Glucose (mg/dL) 159 H 238 H (70-110) mg/dL Assessment and Plan Assessment: Acute on chronic dyspnea with signs of decompensated heart failure essentially due to diastolic heart failure and valvular heart disease. The patient had significant volume overload at time of admission and has been diuresed Left sided pleural effusion, status post thoracentesis on 10/23/2024 with 850 mL removed, cultures revealed no growth and cytology pending Acute on chronic hypoxic respiratory failure, currently on 4 L of oxygen by nasal cannula Obstructive sleep apnea maintained on BiPAP pressure of 18/14 cm of water, utilizing her on device from home Acute on chronic anemia, s/p transfusion with a total of 4 units of packed RBC. Hemoglobin is at 8.2. EGD October 19, 2024 revealed no active bleeding. Colonoscopy on 10/21/2024 revealed no active bleeding. Capsule study initiated History of valvular heart disease and the patient is status post aortic valve replacement, mitral valve replacement and tricuspid valve repair in May 2024 performed at [facility] Dual-chamber pacemaker insertion, November 2017 Paroxysmal A-fib maintained on anticoagulation with Eliquis Coronary artery disease with previous coronary stenting of the LAD and ostial PDA Diabetes mellitus type 2 Hyperlipidemia Hypertension Severe pulmonary hypertension, group 2 Plan: The patient was seen and evaluated Labs and medications reviewed Current hemoglobin 8.2 Undergoing a capsule study Titrate down the FiO2 as tolerated Increase her activity as tolerated Plan is for home with [facility] at discharge I have personally seen and examined the patient, performed the documentation and the assessment and plan as written. Number of minutes spent on the visit: 10 Dictation was produced using [employer] dictation software. Please excuse any grammatical, word or spelling errors.
--- NOTE | 2024-10-29 13:59 | P.PN ---
Subjective Progress Note Date: 10/29/24 Principal diagnosis: Anemia This is a pleasant 79-year-old female who presented to the emergency department with shortness of breath and lower extremity swelling as well as states swelling all over 19 days ago. She has a past medical history of coronary artery disease, atrial fibrillation, hyperlipidemia, osteoarthritis, sleep apnea with BiPAP, heart valve disease status post replacement May 2024 on Eliquis, and thyroid disorder. Gastroenterology was consulted for anemia when patient was first admitted to the hospital with a hemoglobin of 6.2. At that time she had reported that she did have some dark stools. Did not say that they were black. No abdominal pain, nausea or vomiting. Was stating that she has had poor nutritional intake. D plan was for upper endoscopy for further evaluation at that time however patient's respiratory status was poor and she was not cleared by pulmonology. Gastroenterology then was no longer available in the hospital and we had signed off. During her hospitalization she was seen by general surgery for anemia and had an upper and lower endoscopy with Dr. Hurtado. Upper endoscopy was done on 10/19/2024 with findings of gastritis and duodenitis with biopsy reports showing peptic duodenitis, minimal chronic gastritis and mi ld chronic esophagitis. Colonoscopy was completed on 10/21/2024 status post polypectomy with biopsy report of tubular adenoma. Patient continues to state that she is not having any blood in her stool, no abdominal pain, nausea or vomiting. She is tolerating a regular diet. Her daughter is at the bedside and states that her mother's appetite has been very poor and she has not been eating well prior to coming to the hospital and still has very little appetite. Patient has received 4 units of blood during this hospitalization. She is currently on her Eliquis 5 mg twice daily. Previous plan was for discharge last week with patient to follow-up as an outpatient for small bowel capsule endos copy this . However patient is still been hospitalized and had a slight drop in her hemoglobin from 8.0 yesterday to 7.6 today. She has a normocytic normochromic anemia. No iron studies have been completed. 10/28/2024 Patient seen and examined today as a follow-up. She continues to deny any blood in her stool or black stool. No abdominal pain nausea or vomiting. Underwent small bowel capsule endoscopy this morning. Test is currently in progress. Hemoglobin stable at 7.7, iron 46, saturation, TIBC and ferritin all normal. Hematology was consulted by PCP. 10/29/2024 Patient is seen and examined today as a follow-up. She is sitting up in the recliner. She denies any abdominal pain, nausea or vomiting. No blood in her stool or black stool. Hemoglobin is up to 8.2 from 7.4 yesterday. She had her small bowel capsule endoscopy with findings of scant amount of blood/oozing in the distal duodenum likely secondary to AVM. Patient is currently on her Eliquis for atrial fibrillation. Objective - Vital Signs Vital signs: Vital Signs Temp 97.8 F 10/29/24 06:51 Pulse 62 10/29/24 06:51 Resp 18 10/29/24 06:51 BP 108/66 10/29/24 06:51 Pulse Ox 96 10/29/24 06:51 FiO2 Intake & Output 10/28/24 10/29/24 10/29/24 18:59 06:59 18:59 Intake Total 20 Balance 20 Weight 111.4 kg 111 kg Intake: IV 20 Invasive Line 4 20 Other: Voiding Method Toilet Toilet Toilet External Catheter - Exam General appearance: The patient is alert, oriented, appears in no acute distress. HET: Head is normocephalic and atraumatic. Conjunctiva pink. Sclera anicteric. Neck: Supple without lymphadenopathy. Abdomen: Soft, nontender, nondistended. Extremities: Normal skin color and turgor. No pedal edema Skin: No rashes, no jaundice Neurological: No focal deficits. Alert and oriented. - Labs CBC & Chem 7: 10/29/24 11:25 10/28/24 09:29 Labs: Abnormal Lab Results - Last 24 Hours (Table) 10/28/24 10/28/24 10/28/24 Range/Units 16:54 20:08 21:50 RBC (3.80-5.40) m/uL Hgb (11.4-16.0) gm/dL Hct (34.0-46.0) % MCHC (31.0-37.0) g/dL RDW (11.5-15.5) % Lymphocytes # (1.0-4.8) k/uL POC Glucose (mg/dL) 275 H 264 H 322 H (70-110) mg/dL 10/29/24 10/29/24 10/29/24 Range/Units 06:25 11:25 11:38 RBC 3.12 L (3.80-5.40) m/uL Hgb 8.2 L (11.4-16.0) gm/dL Hct 27.0 L (34.0-46.0) % MCHC 30.4 L (31.0-37.0) g/dL RDW 19.2 H (11.5-15.5) % Lymphocytes # 0.6 L (1.0-4.8) k/uL POC Glucose (mg/dL) 159 H 238 H (70-110) mg/dL Assessment and Plan (1) Anemia Narrative/Plan: 79-year-old female with multiple comorbidities presenting with shortness of breath and lower extremity swelling underwent triple valve surgery she according to patient in May of this year and is on anticoagulation with Eliquis.. Patient has been admitted for the last 19 days with the GI initially on consult for anemia with recommendation for upper endoscopy at that time however patient was not stable from a pulmonary standpoint. She has since been followed by general surgery for anemia without any gross signs of GI bleed. She has had upper and lower endoscopy without any evidence of a GI bleed. Plan was for outpatient small bowel capsule endoscopy however patient still hospitalized. She continues to have a normocytic normochromic anemia without any gross signs of GI bleed. Unclear etiology of anemia may be secondary to poor nutrition, or anemia of chronic disease. However will complete testing to rule out sources a GI bleed. P Small bowel video capsule endoscopy completed with a scant amount of blood/oozing likely from a AVM in the distal duodenum. Unfortunately due to location unable to treat. Consider holding anticoagulation and discussing further with cardiology regarding ongoing anticoagulation. Current Visit: Yes Status: Acute Code(s): D64.9 - ANEMIA, UNSPECIFIED SNOMED Code(s): 656724065 (2) Shortness of breath Current Visit: Yes Status: Acute Code(s): R06.02 - SHORTNESS OF BREATH SNOMED Code(s): 775026159 (3) Coronary artery disease Current Visit: Yes Status: Acute Code(s): I25.10 - ATHSCL HEART DISEASE OF [place] CORONARY ARTERY W/O ANG PCTRS SNOMED Code(s): 52684209 (4) Atrial fibrillation Current Visit: Yes Status: Acute Code(s): I48.91 - UNSPECIFIED ATRIAL FIBRILLATION SNOMED Code(s): 90275538 (5) Pacemaker Current Visit: Yes Status: Acute Code(s): Z95.0 - PRESENCE OF CARDIAC PACEMAKER SNOMED Code(s): 027768620 (6) Insulin dependent type 2 diabetes mellitus Current Visit: No Status: Acute Code(s): E11.9 - TYPE 2 DIABETES MELLITUS WITHOUT COMPLICATIONS SNOMED Code(s): 967756239 (7) History of heart valve replacement Current Visit: Yes Status: Acute Code(s): Z95.2 - PRESENCE OF PROSTHETIC HEART VALVE SNOMED Code(s): 220669316 Plan: 1. Continue symptomatic and supportive care 2. Hematology on consultation 3. Daily CBC, transfuse for hemoglobin less than 7 4. Protonix 40 mg daily for GI prophylaxis 5. Iron studies, ferritin ordered 6. Patient is status post upper endoscopy and colonoscopy without any findings of GI bleed 7. May have regular diet for lunch 8. Small bowel capsule endoscopy completed and reviewed. Appears to have oozing in distal duodenum likely secondary to AVM. However due to location unable to treat by gastroenterology 9. Recommend holding anticoagulation for 1 to 2 days 10. Recommend patient follow-up with cardiology, need to consider holding anticoagulation if possible for AVMs Thank you for this consultation, we will continue to follow. Dr. Bailee Allen I agree with the dictator's note, documented as a scribe by Marline Ansari.
--- NOTE | 2024-10-29 14:33 | P.PN ---
Subjective Progress Note Date: 10/29/24 Lissett remains on hold ,patient is n.p.o., scheduled for EGD today with general surgery. Pending EGD results potential colonoscopy. Hemoglobin decreased to 7.5, platelets 156. Glucose 127, BUN 25, creatinine 1.15, carb 40. Maintaining O2 sats in the 90s on 5 L nasal cannula. Used BiPAP during the night. Denies chest pain, palpitations or increase in shortness of breath. Denies lightheadedness dizziness or focal deficits. Denies abdominal pain. 10/20/2024 hemoglobin remains at 7.5, platelets 159 .status post EGD reporting blood found in the posterior oropharynx, gastroesophageal reflux disease with erosive esophagitis nonbleeding gastritis, nonbleeding duodenitis, duodenal polyp. Scheduled for colonoscopy tomorrow. Positive bowel movement yesterday. Denies nosebleeds, denies nausea, vomiting or diarrhea. Denies abdominal pain. Denies chest pain, palpitations or increased shortness of breath. Denies lightheadedness, dizziness or focal deficits. Bicarb 34, BUN 23, creatinine 1.0 5. Afebrile, normal WBC. 10/21/2024 hemoglobin 7.6, platelets 193 .duodenum, gastric antrum and esophagus biopsies -pathology reporting mild acute duodenitis with focal foveolar metaplasia and submucosal Susan's gland hyperplasia suggestive of peptic duodenitis, minimal chronic gastritis with mucosal reactive changes, Helicobacter pylori organisms not identified, mild chronic esophagitis with rare intramucosal eosinophils consistent with reflux esophagitis. Diuresing well with 24-hour I&O reflecting a negative fluid balance .NPO, Lissett remains on hold, scheduled for colonoscopy. Denies chest pain, palpitations or increase shortness of breath. Maintaining O2 sats in the high 90s to 100% on 4 L nasal cannula. Bicarb 39, BUN 21, creatinine 1.07. 10/28/24 capsule study in progress as per GI. Denies bleeding; denies dark stools. Denies nausea, vomiting. Denies abdominal pain. Denies chest pain, palpitations or shortness of breath. Iron 48,TIBC 309, percentage saturation 15.53, transferrin 221, ferritin 120. 10/29/2024 receiving IV iron infusions as per hematology .maintaining O2 sats in the 90s on 4 L nasal cannula, using her BiPAP at night. Denies any bleeding. Denies nausea vomiting or diarrhea. Denies abdominal pain. continues on Eliquis, hemoglobin stable, 8.2, platelets 192. Status post capsule study, results pending. Objective - Vital Signs Vital signs: Vital Signs Temp 97.8 F 10/29/24 06:51 Pulse 62 10/29/24 06:51 Resp 18 10/29/24 06:51 BP 108/66 10/29/24 06:51 Pulse Ox 96 10/29/24 06:51 FiO2 Intake & Output 10/28/24 10/29/24 10/29/24 18:59 06:59 18:59 Intake Total 20 Balance 20 Weight 111.4 kg 111 kg Intake: IV 20 Invasive Line 4 20 Other: Voiding Method Toilet Toilet Toilet External Catheter - Exam PHYSICAL EXAM: VITAL SIGNS: [Reviewed] GENERAL: Alert and oriented x 3, sitting up in bed, no acute distress HEENT: Normocephalic, conjunctivae normal. eyes normal. NECK: Supple, no JVD. CARDIOVASCULAR: S1, S2 regular. Systolic murmur. RESPIRATION: Unlabored , equal air entry , clear to auscultation. ABDOMEN: Soft, nontender . No guarding. no masses palpable. Positive bowel sounds. LEGS: Trace edema. no clubbing or cyanosis. NERVOUS SYSTEM: Cranial N 2-12 grossly normal.No focal deficits. Skin: Warm and dry, no rash - Labs CBC & Chem 7: 10/29/24 11:25 10/28/24 09:29 Labs: Abnormal Lab Results - Last 24 Hours (Table) 10/28/24 10/28/24 10/28/24 Range/Units 16:54 20:08 21:50 RBC (3.80-5.40) m/uL Hgb (11.4-16.0) gm/dL Hct (34.0-46.0) % MCHC (31.0-37.0) g/dL RDW (11.5-15.5) % Lymphocytes # (1.0-4.8) k/uL POC Glucose (mg/dL) 275 H 264 H 322 H (70-110) mg/dL 10/29/24 10/29/24 10/29/24 Range/Units 06:25 11:25 11:38 RBC 3.12 L (3.80-5.40) m/uL Hgb 8.2 L (11.4-16.0) gm/dL Hct 27.0 L (34.0-46.0) % MCHC 30.4 L (31.0-37.0) g/dL RDW 19.2 H (11.5-15.5) % Lymphocytes # 0.6 L (1.0-4.8) k/uL POC Glucose (mg/dL) 159 H 238 H (70-110) mg/dL Assessment and Plan Assessment: Acute on chronic anemia, status post 4 units packed RBCs, status post nondiagnostic EGD and colonoscopy. Status post capsule study, results pending Acute on chronic CHF, diastolic dysfunction Left-sided pleural effusion status post thoracentesis Acute on chronic hypoxic respiratory failure, secondary to the above Moderate to severe pulmonary hypertension Obstructive sleep apnea, maintained on BiPAP Diabetes mellitus type 2 History of aortic valve replacement, mitral valve replacement and tricuspid valve repair May 2024-[facility] Paroxysmal atrial fibrillation, anticoagulated with Eliquis CAD, history of stent Dual-chamber pacemaker, [facility],11/2017 Hypertension Hyperlipidemia Plan: Continue on current medication regimen ,monitoring and symptomatic treatment. Labs pending. Capsule study results pending. The impression and plan of care has been dictated as directed. : I performed a history and examination of this patient, discussed the same with the dictator. I agree with the dictator's note ,documented as a scribe. Any additional findings or plans will be noted.
[2024-10-29 15:09] LABS: Appearance,Urine Cloudy (Clear); Bacteria,Urine Occasional /hpf; Bilirubin,Urine Negative (Negative); Blood,Urine Moderate (Negative); Color,Urine Colorless; Glucose,Urine (UA) Negative (Negative); Hyaline Casts,Urine 7 /lpf (0-2); Ketones,Urine Negative (Negative); Leukocyte Esterase,Urine Large (Negative); Mucus,Urine Rare /hpf; Nitrite,Urine Negative (Negative); PH, Urine 7.5 (5.0-8.0); Protein,Urine Negative (Negative); RBC,Urine 41 /hpf (0-5); Squamous Epithelial Cell,Urine 1 /hpf (0-4); Urobilinogen,Urine <2.0 mg/dL (<2.0); WBC,Urine 154 /hpf (0-5)
[2024-10-29 16:37] LABS: Glucose,Whole Blood 304 mg/dL (70-110)
[2024-10-29 19:53] LABS: Glucose,Whole Blood 320 mg/dL (70-110)
[2024-10-29 22:16] LABS: Glucose,Whole Blood 233 mg/dL (70-110)
[2024-10-30 02:05] VITALS: RESP 16
[2024-10-30 06:22] LABS: Glucose,Whole Blood 166 mg/dL (70-110)
[2024-10-30 07:53] VITALS: BP 114/59; PULSE 59; TEMP 98
[2024-10-30] MEDS: APIXABAN 5 MG TAB PO SCH (08:47)
--- NOTE | 2024-10-30 10:37 | P.PN ---
Subjective Progress Note Date: 10/30/24 Principal diagnosis: Anemia This is a pleasant 79-year-old female who presented to the emergency department with shortness of breath and lower extremity swelling as well as states swelling all over 19 days ago. She has a past medical history of coronary artery disease, atrial fibrillation, hyperlipidemia, osteoarthritis, sleep apnea with BiPAP, heart valve disease status post replacement May 2024 on Eliquis, and thyroid disorder. Gastroenterology was consulted for anemia when patient was first admitted to the hospital with a hemoglobin of 6.2. At that time she had reported that she did have some dark stools. Did not say that they were black. No abdominal pain, nausea or vomiting. Was stating that she has had poor nutritional intake. D plan was for upper endoscopy for further evaluation at that time however patient's respiratory status was poor and she was not cleared by pulmonology. Gastroenterology then was no longer available in the hospital and we had signed off. During her hospitalization she was seen by general surgery for anemia and had an upper and lower endoscopy with Dr. Hurtado. Upper endoscopy was done on 10/19/2024 with findings of gastritis and duodenitis with biopsy reports showing peptic duodenitis, minimal chronic gastritis and mi ld chronic esophagitis. Colonoscopy was completed on 10/21/2024 status post polypectomy with biopsy report of tubular adenoma. Patient continues to state that she is not having any blood in her stool, no abdominal pain, nausea or vomiting. She is tolerating a regular diet. Her daughter is at the bedside and states that her mother's appetite has been very poor and she has not been eating well prior to coming to the hospital and still has very little appetite. Patient has received 4 units of blood during this hospitalization. She is currently on her Eliquis 5 mg twice daily. Previous plan was for discharge last week with patient to follow-up as an outpatient for small bowel capsule endos copy this . However patient is still been hospitalized and had a slight drop in her hemoglobin from 8.0 yesterday to 7.6 today. She has a normocytic normochromic anemia. No iron studies have been completed. 10/28/2024 Patient seen and examined today as a follow-up. She continues to deny any blood in her stool or black stool. No abdominal pain nausea or vomiting. Underwent small bowel capsule endoscopy this morning. Test is currently in progress. Hemoglobin stable at 7.7, iron 46, saturation, TIBC and ferritin all normal. Hematology was consulted by PCP. 10/29/2024 Patient is seen and examined today as a follow-up. She is sitting up in the recliner. She denies any abdominal pain, nausea or vomiting. No blood in her stool or black stool. Hemoglobin is up to 8.2 from 7.4 yesterday. She had her small bowel capsule endoscopy with findings of scant amount of blood/oozing in the distal duodenum likely secondary to AVM. Patient is currently on her Eliquis for atrial fibrillation. 10/30/2024 Patient seen and examined today as a follow-up. After further evaluation of the small bowel capsule it appears that there is a small erosion not AVM at the terminal ileum with oozing but no blood seen in the cecum. Patient denies any abdominal pain, nausea or vomiting. Denies any blood in her stool or black stool. She has received IV iron supplement. Objective - Vital Signs Vital signs: Vital Signs Temp 98.1 F 10/30/24 01:30 Pulse 67 10/30/24 01:30 Resp 16 10/30/24 01:30 BP 106/56 10/30/24 01:30 Pulse Ox 96 10/30/24 01:30 FiO2 Intake & Output 10/29/24 10/29/24 10/30/24 06:59 18:59 06:59 Intake Total 220 Output Total 1300 Balance -1080 Weight 111 kg Intake: Oral 220 Output: Urine 1300 Other: Voiding Method Toilet Toilet Toilet External Catheter - Exam General appearance: The patient is alert, oriented, appears in no acute distress. HET: Head is normocephalic and atraumatic. Conjunctiva pink. Sclera anicteric. Neck: Supple without lymphadenopathy. Abdomen: Soft, nontender, nondistended. Extremities: Normal skin color and turgor. No pedal edema Skin: No rashes, no jaundice Neurological: No focal deficits. Alert and oriented. - Labs CBC & Chem 7: 10/29/24 11:25 10/28/24 09:29 Labs: Abnormal Lab Results - Last 24 Hours (Table) 10/29/24 10/29/24 10/29/24 Range/Units 11:25 11:38 14:28 RBC 3.12 L (3.80-5.40) m/uL Hgb 8.2 L (11.4-16.0) gm/dL Hct 27.0 L (34.0-46.0) % MCHC 30.4 L (31.0-37.0) g/dL RDW 19.2 H (11.5-15.5) % Lymphocytes # 0.6 L (1.0-4.8) k/uL POC Glucose (mg/dL) 238 H (70-110) mg/dL Urine Appearance Cloudy H (Clear) Urine Blood Moderate H (Negative) Ur Leukocyte Esterase Large H (Negative) Urine RBC 41 H (0-5) /hpf Urine WBC 154 H (0-5) /hpf Urine WBC Clumps Few H (None) /hpf Urine Bacteria Occasional H (None) /hpf Hyaline Casts 7 H (0-2) /lpf Urine Mucus Rare H (None) /hpf 10/29/24 10/29/24 10/29/24 Range/Units 16:36 19:51 22:14 RBC (3.80-5.40) m/uL Hgb (11.4-16.0) gm/dL Hct (34.0-46.0) % MCHC (31.0-37.0) g/dL RDW (11.5-15.5) % Lymphocytes # (1.0-4.8) k/uL POC Glucose (mg/dL) 304 H 320 H 233 H (70-110) mg/dL Urine Appearance (Clear) Urine Blood (Negative) Ur Leukocyte Esterase (Negative) Urine RBC (0-5) /hpf Urine WBC (0-5) /hpf Urine WBC Clumps (None) /hpf Urine Bacteria (None) /hpf Hyaline Casts (0-2) /lpf Urine Mucus (None) /hpf 10/30/24 Range/Units 06:21 RBC (3.80-5.40) m/uL Hgb (11.4-16.0) gm/dL Hct (34.0-46.0) % MCHC (31.0-37.0) g/dL RDW (11.5-15.5) % Lymphocytes # (1.0-4.8) k/uL POC Glucose (mg/dL) 166 H (70-110) mg/dL Urine Appearance (Clear) Urine Blood (Negative) Ur Leukocyte Esterase (Negative) Urine RBC (0-5) /hpf Urine WBC (0-5) /hpf Urine WBC Clumps (None) /hpf Urine Bacteria (None) /hpf Hyaline Casts (0-2) /lpf Urine Mucus (None) /hpf Assessment and Plan (1) Anemia Narrative/Plan: 79-year-old female with multiple comorbidities presenting with shortness of breath and lower extremity swelling underwent triple valve surgery she according to patient in May of this year and is on anticoagulation with Eliquis.. Patient has been admitted for the last 19 days with the GI initially on consult for anemia with recommendation for upper endoscopy at that time however patient was not stable from a pulmonary standpoint. She has since been followed by general surgery for anemia without any gross signs of GI bleed. She has had upper and lower endoscopy without any evidence of a GI bleed. Plan was for outpatient small bowel capsule endoscopy however patient still hospitalized. She continues to have a normocytic normochromic anemia without any gross signs of GI bleed. Unclear etiology of anemia may be secondary to poor nutrition, or anemia of chronic disease. However will complete testing to rule out sources a GI bleed. P Small bowel video capsule endoscopy completed with a scant amount of blood/oozing from small superficial erosion in the terminal ileum, unfortunately due to location unable to treat. Continue with PPI. Avoid NSAIDs. Follow-up outpatient and monitor hemoglobin. Current Visit: Yes Status: Acute Code(s): D64.9 - ANEMIA, UNSPECIFIED SNOMED Code(s): 646232804 (2) Shortness of breath Current Visit: Yes Status: Acute Code(s): R06.02 - SHORTNESS OF BREATH SNOMED Code(s): 562846075 (3) Coronary artery disease Current Visit: Yes Status: Acute Code(s): I25.10 - ATHSCL HEART DISEASE OF [place] CORONARY ARTERY W/O ANG PCTRS SNOMED Code(s): 97436415 (4) Atrial fibrillation Current Visit: Yes Status: Acute Code(s): I48.91 - UNSPECIFIED ATRIAL FIBRILLATION SNOMED Code(s): 32309900 (5) Pacemaker Current Visit: Yes Status: Acute Code(s): Z95.0 - PRESENCE OF CARDIAC PACEMAKER SNOMED Code(s): 141399152 (6) Insulin dependent type 2 diabetes mellitus Current Visit: No Status: Acute Code(s): E11.9 - TYPE 2 DIABETES MELLITUS WITHOUT COMPLICATIONS SNOMED Code(s): 172844328 (7) History of heart valve replacement Current Visit: Yes Status: Acute Code(s): Z95.2 - PRESENCE OF PROSTHETIC HEA RT VALVE SNOMED Code(s): 810674011 Plan: 1. Continue symptomatic and supportive care 2. Hematology on consultation 3. Patient is status post upper endoscopy and colonoscopy without any findings of GI bleed 4. Small bowel capsule endoscopy completed and reviewed. Superficial erosion in the terminal ileum with oozing. However due to location unable to treat by gastroenterology, continue with Protonix and erosion will heal on its own. 5. May resume anticoagulation 6. Monitor outpatient hemoglobin 7. Outpatient follow-up with gastroenterology, if hemoglobin continues to trend down can consider possible referral to advanced horticulture/floriculture teacher. Thank you for this consultation, patient is cleared by gastroenterology for discharge. Dr. Bailee Allen I agree with the dictator's note, documented as a scribe by Marline Ansari.
[2024-10-30 11:33] LABS: Glucose,Whole Blood 253 mg/dL (70-110)
--- NOTE | 2024-10-30 13:47 | P.PN ---
Subjective Progress Note Date: 10/30/24 Pt reporting feeling improved. Denies blood in stool and melena. Hgb 8.2 yesterday. Capsule study showing scant bleeding in distal duodenum, likely r/t AVM. Plan for discharge today Objective - Vital Signs Vital signs: Vital Signs Temp 98.0 F 10/30/24 07:01 Pulse 59 L 10/30/24 07:01 Resp 16 10/30/24 07:01 BP 114/59 10/30/24 07:01 Pulse Ox 97 10/30/24 07:01 FiO2 Intake & Output 10/29/24 10/30/24 10/30/24 18:59 06:59 18:59 Intake Total 220 Output Total 1300 300 Balance -1080 -300 Weight 110.4 kg Intake: Oral 220 Output: Urine 1300 300 Other: Voiding Method Toilet Toilet Toilet Diaper # Bowel Movements 1 - Constitutional General appearance: Present: no acute distress, obese - EENT Eyes: Present: anicteric sclerae, EOMI ENT: Present: hearing grossly normal - Respiratory Details: breathing is even and unlabored - Cardiovascular Details: skin warm and dry - Integumentary Integumentary: Present: pale. Absent: cyanotic - Psychiatric Psychiatric: Present: A&O x's 3 - Labs CBC & Chem 7: 10/29/24 11:25 10/28/24 09:29 Labs: Abnormal Lab Results - Last 24 Hours (Table) 10/29/24 10/29/24 10/29/24 Range/Units 14:28 16:36 19:51 POC Glucose (mg/dL) 304 H 320 H (70-110) mg/dL Urine Appearance Cloudy H (Clear) Urine Blood Moderate H (Negative) Ur Leukocyte Esterase Large H (Negative) Urine RBC 41 H (0-5) /hpf Urine WBC 154 H (0-5) /hpf Urine WBC Clumps Few H (None) /hpf Urine Bacteria Occasional H (None) /hpf Hyaline Casts 7 H (0-2) /lpf Urine Mucus Rare H (None) /hpf 10/29/24 10/30/24 10/30/24 Range/Units 22:14 06:21 11:32 POC Glucose (mg/dL) 233 H 166 H 253 H (70-110) mg/dL Urine Appearance (Clear) Urine Blood (Negative) Ur Leukocyte Esterase (Negative) Urine RBC (0-5) /hpf Urine WBC (0-5) /hpf Urine WBC Clumps (None) /hpf Urine Bacteria (None) /hpf Hyaline Casts (0-2) /lpf Urine Mucus (None) /hpf Assessment and Plan (1) Anemia Status: Acute Code(s): D64.9 - ANEMIA, UNSPECIFIED SNOMED Code(s): 503740158 (2) Coronary artery disease Status: Acute Code(s): I25.10 - ATHSCL HEART DISEASE OF [place] CORONARY ARTERY W/O ANG PCTRS SNOMED Code(s): 43803529 (3) History of heart valve replacement Status: Acute Code(s): Z95.2 - PRESENCE OF PROSTHETIC HEART VALVE SNOMED Code(s): 460617310 Plan: Iron deficiency anemia: Significant history of prosthetic heart valve and cardiac stents, anticoagulated with Eliquis (started 05/2024) and aspirin. Presented with weakness and shortness of breath. Denies gray blood in stool or melena. -Upon admission hemoglobin was noted at 6.2 and subsequently 5.5. Since admission patient has received 4 units of PRBCs. -Underwent upper and lower scopes with no evidence of acute bleeding. Biopsies obtained were negative for malignancy. GI has also been consulted and ordered capsule study, showing scant bleeding in distal duodenum, likely r/t AVM. -Iron studies obtained on 10/27 showed iron saturation 15.5% and ferritin 120. Would expect these studies to be higher after receiving 4 units of PRBCs. CBC showing hemoglobin 8.2, MCV 86.1, WBC 6.9, platelets 179,000, differential showing no significant abnormalities. Upon trending labs, mild anemia in the 10 range was noted in 2013 and 2021. Bilirubin 0.6. Creatinine 1.17, GFR 45. 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 Iron studies showing lower than expected iron saturation and ferritin s/p 4 units of PRBCs. Parenteral iron ordered x 4 doses. Will schedule additional iron transfusions and f/u in the outpt setting -For now she can continue eliquis/aspirin. If persisting drops in hgb is noted, will need to have cardiology reevaluate to provide further anticoagulation recs regarding hx of cardiac stents and recent prosthetic heart valve placement -Continue to monitor CBC. Transfuse for hgb less than 7 or if symptomatic
--- NOTE | 2024-10-30 14:20 | P.PN ---
Subjective Progress Note Date: 10/30/24 This is a 79-year-old female patient who is being seen in consultation for metabolic alkalosis. The patient was hospitalized on 10/08/2024 and the patient was in significant volume overload and she was also complaining of some shortness of breath and the patient's chest x-ray showed a left-sided pleural effusion. The patient had previous history of aortic valve placement and mitral valve replacement and tricuspid valve repair patient also has history of coronary artery disease and the patient has undergone previous stenting of the mid LAD and ostial PDA.The patient has a dual-chamber pacemaker insertion. She has paroxysmal atrial fibrillation, diabetes mellitus type 2, hypertension hyperlipidemia. The patient underwent her cardiac surgery at the [facility] back in May of this year. She has been [facility]. She is also known to have obstructive sleep apnea. I have seen her in the sleep center in the past and the patient has been maintained on the BiPAP pressure of 18 over 14 cm of water and she has been quite compliant with treatment. She is also on oxygen and she had progressive worsening in her hypoxemia along with increased shortness of breath. Based on that, the patient came into the hospital. EKG showed a paced rhythm. The chest x-ray showed cardiomegaly and bilateral pleural effusion worse on the left. The patient's hemoglobin was low at 6.2 and dropped down to 5.5. The patient was transfused with a total of 3 units of packed RBC during the current hospitalization the patient's hemoglobin is currently is at 8.2. A repeat echocardiogram was done during this current hospitalization on 10/09/2024 and the patient was found to have a normal LV with an ejection fraction of 6065%, severe pulm hypertension with a PA pressure of 56. The patient had mitral valve replacement with mild mitral stenosis and aortic valve replacement without any valvular abnormalities or regurgitation. No evidence of any pericardial effusion. During this current admission, the patient was subjected to diuresis the patient is currently on Lasix 40 mg IV every 8 hours and the patient is also on Zaroxolyn 5 mg p.o. daily and Aldactone 25 mg p.o. daily. I checked the fluid balance and over the past 4 days, the patient has been in the negative fluid balance of at least 8 L. There has been also steady increase in his serum bicarb. The patient is i nitial bicarb at the time of admission was 28 and currently is up to 42. I obtained a follow-up chest x-ray this morning and it showed overall stable findings consistent with CHF and pulm vessel congestion. There is a small to moderate-sized left-sided pleural effusion along with some adjacent atelectatic change. Hemoglobin is at 8.2 with a white cell count of 6.4 and a platelet count of 127. BUN is 19 with a creatinine of 1.09 and sodium levels at 136 and potassium levels at 3.1. She remains on Levemir insulin 20 units nightly and NovoLog sliding scale coverage. She is also on Toprol 50 mg p.o. twice daily and IV Protonix. She remains on aspirin. On 10/14/2024, the patient is being seen for a follow-up. The patient is doing well. She continues to diurese well. Fluid balance has been -2.5 L over the past 24 hours. Nevertheless, she continues to have significant amount of edema in the abdomen lower extremities involving the thighs. BUN is 18 with a creatinine of 1.22. The patient developed metabolic alkalosis. The serum bicarb was quite elevated and the patient received a total of 2 doses of Diamox and the serum bicarb is down to 37. Meanwhile, the diuretics have been modified and the patient is currently on Lasix 60 mg in the morning and 40 mg in the evening. The patient is also on Zaroxolyn 5 mg p.o. daily and Aldactone 25 mg p.o. daily. The patient is utilizing her BiPAP and once off the BiPAP, she is maintaining herself on oxygen at 5 L/min nasal cannula. No significant shortness of breath. No cough or sputum production. Edema still extensive. On 10/15/2024, the patient is being seen for a follow-up. Doing well. Still has edema lower extremities. Nevertheless, the fluid balance has been -2.5 L over the past 24 hours and if she is producing good urine output. She remains on Lasix 60 mg in the morning and 40 mg in the evenings p.o. and the patient remains on Aldactone 25 mg p.o. daily and Zaroxolyn 5 mg p.o. daily. She is utilizing her BiPAP routinely. No labs are available from today. Nevertheless, the patient is awake and alert and communicating. No other significant events overnight. On 10/16/2024, the patient remains clinically stable. No new complaints. Remains in negative fluid balance. She has developed some metabolic alkalosis with a serum bicarb of 37. BUN is 24 with a creatinine of 1.2. The white cell count is at 7.7 with a hemoglobin of 7.5. Continues to utilize her BiPAP on a regular basis. After BiPAP, she is on 5 L of oxygen nasal cannula. No new complaints. Diuretics include Lasix 60 mg morning and 40 mg the evening and the patient remains on Zaroxolyn and Aldactone. On 10/17/2024, the patient is sitting up in a chair and she is calm and comfortable and she reports improvement in her volume status and edema in lower extremities. She remains negative fluid balance. She continues to be on diu retics, a combination of Lasix, Aldactone and Zaroxolyn. Fluid balance is negative. BUN 25 with a creatinine of 1.1. Sodium levels at 133. No altered mentation. Using BiPAP and once off the BiPAP, the patient is on oxygen at 5 L/min nasal cannula. No cough. No sputum production. No fever or chills. No altered mentation. On 10/18/2024, the patient is being seen for a follow-up. Doing well. No specific complaints. Continues to diurese. Negative fluid balance. Maintain on BiPAP on and off during the day and continuously overnight. While off the BiPAP, the patient is on 5 L with a pulse ox of 99%. Hemoglobin is 8.1. Awaiting EGD and colonoscopy. The BUN is 25 with a creatinine of 1.23 and a serum bicarb is at 39 and sodium levels at 139. Remains on Lasix, Zaroxolyn and Aldactone. The patient is seen today October 19, 2024 in follow-up on the selective care unit. She is currently resting comfortably in bed. Awake and alert in no acute distress. She is maintaining O2 saturations in the 90s on 5 L/min per nasal cannula. She is utilizing BiPAP throughout the evenings and during the day while napping. She did undergo EGD today revealed no evidence of active bleeding. There is gastritis, duodenitis. Erosive esophagitis. White count 6.1. Hemoglobin 7.5. Platelets 156. Sodium 134. Potassium 3.7. Bicarb 40. BUN 25. Creatinine 1.15. Glucose 143. She remains on diuretics. The patient is seen today October 21, 2024 in follow-up on the [facility] it. She is currently sitting up in bed. Awake and alert in no acute distress. Maintaining good O2 saturations in the 90s on 5 L/min per nasal cannula. She is utilizing her BiPap at night. Plan is for colonoscopy today. White count 5.5. Hemoglobin 7.6. Platelets 193. Sodium 134. Potassium 3.7. Bicarb 39. BUN 21. Creatinine 1.07. Glucose 95. She has been afebrile. Hemodynamically sta ble. The patient is seen today October 23, 2024 in follow-up on the selective care unit. She is currently sitting up in a chair at the bedside. Awake and alert in no acute distress. Receiving a unit of packed red blood cells. Denies any worsening shortness of breath, cough or congestion. She did have ongoing left pleural effusion. Ultrasound did show significant fluid. She underwent a left- sided thoracentesis today with Dr. Ledbetter. 850 mL of dark yellow fluid removed. She tolerated the procedure well. Chest x-ray showed improvement. No evidence of pneumothorax. She is maintaining O2 saturations in the high 90s on 5 L/min per nasal cannula. She is afebrile. Hemodynamically stable. White count 6.5. Hemoglobin 7.3. Platelets 171. Sodium 134. Potassium 3.7. Bicarb 38. BUN 20. Creatinine 1.13. Glucose 182. Eliquis remains on hold. The patient is seen today October 24, 2024 in follow-up on the [facility]. She is currently sitting up in a chair. Awake and alert in no acute distress. Denies any worsening shortness of breath, cough or congestion. She d id undergo a left-sided thoracentesis yesterday. She remains on IV diuretics. White count 5.8. Hemoglobin 8.1. Platelets 170. Sodium 134. Potassium 3.8. Bicarb 35. BUN 19. Creatinine 1.08. Sodium 137. The patient is seen today October 26, 2024 in follow-up on the selective care unit. She is currently resting in bed. Awake and alert in no acute distress. Maintaining O2 saturations in the 90s on 5 L/min per nasal cannula. She denies any worsening shortness of breath, cough or congestion. She did undergo a left- sided thoracentesis on October 23, 2024. Cytology pending. White count 6.1. Hemoglobin 8.0. Platelets 187. Sodium 135. Potassium 3.3. Bicarb 38. BUN 22. Creatinine 1.17. Glucose 111. She remains on Eliquis. Remains on IV and oral diuretics. The patient is seen today October 29, 2024 in follow-up on the regular medical floor. She was transferred off the selective care unit. She is currently sitting up in bed. Awake and alert in no acute distress. Maintaining O2 saturations in the 90s on 4 L/min per nasal cannula. She does utilize her home BiPAP throughout the night. She has been afebrile. Hemodynamically stable. She is status post 4 units of packed red blood cells this admission. Current hemoglobin 8.2. Platelets 192. White count 6.3. She was initiated on a capsule study yesterday. She has also been initiated on iron supplements per hematology. She is continued on anticoagulation in the form of Eliquis. The patient is seen today October 30, 2024 in follow-up on the regular medical floor. She is currently sitting up in bed. Awake and alert in no acute distress. Maintaining good O2 saturations in the 90s on liters per minute per nasal cannula. She used her home BiPAP throughout the evening. She is afebrile. Hemodynamically stable. Glucose 166. Small bowel capsule endoscopy revealed a superficial erosion in the terminal ileum with bruising. Due to location unable to be treated by GI service. She is continued on Protonix. Objective - Vital Signs Vital signs: Vital Signs Temp 98.0 F 10/30/24 07:01 Pulse 59 L 10/30/24 07:01 Resp 16 10/30/24 07:01 BP 114/59 10/30/24 07:01 Pulse Ox 97 10/30/24 07:01 FiO2 Intake & Output 10/29/24 10/30/24 10/30/24 18:59 06:59 18:59 Intake Total 220 Output Total 1300 300 Balance -1080 -300 Weight 110.4 kg Intake: Oral 220 Output: Urine 1300 300 Other: Voiding Method Toilet Toilet Toilet Diaper # Bowel Movements 1 - Exam GENERAL EXAM: Alert, very pleasant 79-year-old female, sitting up in bed, on 4 L nasal cannula, in no apparent distress. HEAD: Normocephalic. EYES: Normal reaction of pupils, equal size. NOSE: Clear with pink turbinates. THROAT: No erythema or exudates. NECK: No masses, no JVD. CHEST: No chest wall deformity. LUNGS: Equal air entry with no wheeze rhonchi or crackles. CVS: S1 and S2 normal with no audible murmur, regular rhythm. ABDOMEN: No hepatosplenomegaly, normal bowel sounds, no guarding or rigidity. SPINE: No scoliosis or deformity SKIN: No rashes CENTRAL NERVOUS SYSTEM: No focal deficits, tone is normal in all 4 extremities. EXTREMITIES: There is no peripheral edema. No clubbing, no cyanosis. Peripheral pulses are intact. - Labs CBC & Chem 7: 10/29/24 11:25 10/28/24 09:29 Labs: Abnormal Lab Results - Last 24 Hours (Table) 10/29/24 10/29/24 10/29/24 Range/Units 14:28 16:36 19:51 POC Glucose (mg/dL) 304 H 320 H (70-110) mg/dL Urine Appearance Cloudy H (Clear) Urine Blood Moderate H (Negative) Ur Leukocyte Esterase Large H (Negative) Urine RBC 41 H (0-5) /hpf Urine WBC 154 H (0-5) /hpf Urine WBC Clumps Few H (None) /hpf Urine Bacteria Occasional H (None) /hpf Hyaline Casts 7 H (0-2) /lpf Urine Mucus Rare H (None) /hpf 10/29/24 10/30/24 10/30/24 Range/Units 22:14 06:21 11:32 POC Glucose (mg/dL) 233 H 166 H 253 H (70-110) mg/dL Urine Appearance (Clear) Urine Blood (Negative) Ur Leukocyte Esterase (Negative) Urine RBC (0-5) /hpf Urine WBC (0-5) /hpf Urine WBC Clumps (None) /hpf Urine Bacteria (None) /hpf Hyaline Casts (0-2) /lpf Urine Mucus (None) /hpf Assessment and Plan Assessment: Acute on chronic dyspnea with signs of decompensated heart failure essentially due to diastolic heart failure and valvular heart disease. The patient had significant volume overload at time of admission and has been diuresed Left sided pleural effusion, status post thoracentesis on 10/23/2024 with 850 mL removed, cultures revealed no growth and cytology negative for malignancy Acute on chronic hypoxic respiratory failure, currently on 4 L of oxygen by nasal cannula Obstructive sleep apnea maintained on BiPAP pressure of 18/14 cm of water, utilizing her on device from home Acute on chronic anemia, s/p transfusion with a total of 4 units of packed RBC. Hemoglobin is at 8.2. EGD October 19, 2024 revealed no active bleeding. Colonoscopy on 10/21/2024 revealed no active bleeding. Capsule study initiated History of valvular heart disease and the patient is status post aortic valve replacement, mitral valve replacement and tricuspid valve repair in May 2024 performed at [facility] Dual-chamber pacemaker insertion, November 2017 Paroxysmal A-fib maintained on anticoagulation with Eliquis Coronary artery disease with previous coronary stenting of the LAD and ostial PDA Diabetes mellitus type 2 Hyperlipidemia Hypertension Severe pulmonary hypertension, group 2 Plan: The patient was seen and evaluated Medications reviewed Pleural fluid cytology negative cultures and negative malignancy Stable for discharge from the pulmonary standpoint Plan is for home with [facility] at discharge To follow-up closely with GI and hematology services I have personally seen and examined the patient, performed the documentation and the assessment and plan as written. Number of minutes spent on the visit: 10 Dictation was produced using [employer] dictation software. Please excuse any grammatical, word or spelling errors.
--- NOTE | 2024-10-30 18:07 | P.DS ---
Providers Date of admission: 10/08/24 19:50 Expected date of discharge: 10/30/24 Attending physician: Ibrahima Hua MD Consults: 10/08/24 19:48 Consult Physician Routine Consulting Provider: Caitie Watson Consult Reason/Comments: chf Do you want consulting provider notified?: Yes 10/13/24 08:45 Consult Physician Routine Consulting Provider: Mehrdad Evans Consult Reason/Comments: hypercapnia Do you want consulting provider notified?: Yes 10/27/24 10:15 Consult Physician Routine Consulting Provider: Little Allen Consult Reason/Comments: dropping Hb Do you want consulting provider notified?: Yes 10/28/24 08:46 Consult Physician Routine Consulting Provider: Ricardo Duenas Consult Reason/Comments: anemia, etiology unclear, pt. request Do you want consulting provider notified?: Yes Primary care physician: Ibrahima Hua MD Hospital Course: Final Diagnoses: Acute on chronic anemia, status post 4 units packed RBCs, status post nondiagnostic EGD and colonoscopy. Status post capsule study, reporting a little erosion at the terminal ileum with oozing but no blood seen in the cecum, not AVM oozing recommending Protonix twice daily and may resume Eliquis as per GI. 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 Paroxysmal atrial fibrillation, anticoagulated with Eliquis CAD, history of stent Dual-chamber pacemaker, [facility],11/2017 Hypertension Hyperlipidemia Acute UTI Hospital course:Eliquis remains on hold ,patient is n.p.o., scheduled for EGD today with general surgery. Pending EGD results potential colonoscopy. Hemoglobin decreased to 7.5, platelets 156. Glucose 127, BUN 25, creatinine 1.15, carb 40. Maintaining O2 sats in the 90s on 5 L nasal cannula. Used BiPAP during the night. Denies chest pain, palpitations or increase in shortness of breath. Denies lightheadedness dizziness or focal deficits. Denies abdominal pain. 10/20/2024 hemoglobin remains at 7.5, platelets 159 .status post EGD reporting blood found in the posterior oropharynx, gastroesophageal reflux disease with erosive esophagitis nonbleeding gastritis, nonbleeding duodenitis, duodenal polyp. Scheduled for colonoscopy tomorrow. Positive bowel movement yesterday. Denies nosebleeds, denies nausea, vomiting or diarrhea. Denies abdominal pain. Denies chest pain, palpitations or increased shortness of breath. Denies lighth eadedness, dizziness or focal deficits. Bicarb 34, BUN 23, creatinine 1.05. Afebrile, normal WBC. 10/21/2024 hemoglobin 7.6, platelets 193 .duodenum, gastric antrum and esophagus biopsies -pathology reporting mild acute duodenitis with focal foveolar metaplasia and submucosal Susan's gland hyperplasia suggestive of peptic duodenitis, minimal chronic gastritis with mucosal reactive changes, Helicobacter pylori organisms not identified, mild chronic esophagitis with rare intramucosal eosinophils consistent with reflux esophagitis. Diuresing well with 24-hour I&O reflecting a negative fluid balance .NPO, Eliquis remains on hold, scheduled for colonoscopy. Denies chest pain, palpitations or increase shortness of breath. Maintaining O2 sats in the high 90s to 100% on 4 L nasal cannula. Bicarb 39, BUN 21, creatinine 1.07. 10/28/24 capsule study in progress as per GI. Denies bleeding; denies dark stools. Denies nausea, vomiting. Denies abdominal pain. Denies chest pain, palpitations or shortness of breath. Iron 48,TIBC 309, percentage saturation 15.53, transferrin 221, ferritin 120. 10/29/2024 receiving IV iron infusions as per hematology .maintaining O2 sats in the 90s on 4 L nasal cannula, using her BiPAP at night. Denies any bleeding. Denies nausea vomiting or diarrhea. Denies abdominal pain. continues on Eliquis, hemoglobin stable, 8.2, platelets 192. Status post capsule study, results pending. Status post capsule study, reporting a little erosion at the terminal ileum with oozing but no blood seen in the cecum, not AVM oozing, recommending Protonix twice daily and may resume Eliquis as per GI. GI reports due to location unable to treat, continue on PPI and erosion will heal on its own. denies chest pain, palpitations or shortness of breath. Denies nausea or vomiting. Denies abdominal pain. Denies bleeding, blood in stool, dark stools. Received IV iron supplements x 3 as per oncology. Last night felt as if she may be at the beginning of a UTI and antibiotics initiated, UA reported negative for nitrates large leukocytes and 154 WBCs. Patient will complete 3 more days of antibiotics at discharge.Close monitoring of hemoglobin, avoiding NSAIDs, maintaining PPI. cleared by pulmonary and GI for discharge. Patient will be discharged home today in a stable condition with guarded prognosis. The impression and plan of care has been dictated as directed. : I performed a history and examination of this patient, discussed the same with the dictator. I agree with the dictator's note ,documented as a scribe. Any additional findings or plans will be noted. Patient Condition at Discharge: Stable Plan - Discharge Summary Discharge Rx Participant: No New Discharge Prescriptions: New Spironolactone [Aldactone] 25 mg PO DAILY #30 tab Sennosides [Senokot] 8.6 mg PO DAILY PRN tab PRN Reason: Constipation Pantoprazole Sodium [Protonix] 40 mg PO BID #60 tab Cephalexin [Keflex] 500 mg PO BID 3 Days #6 cap Aspirin 81 mg PO DAILY tab Lactulose [Cephulac] 30 gm PO BID #900 ml Furosemide [Lasix] 40 mg PO BID #60 tab Metoprolol Succinate (ER) [Toprol XL] 50 mg PO BID #60 tab metOLazone [Zaroxolyn] 5 mg PO DAILY #30 tab Potassium Chloride ER [K-Dur 20] 20 meq PO DAILY #30 tab Continue Levothyroxine Sodium [Levoxyl] 175 mcg PO DAILY Apixaban [Eliquis] 5 mg PO BID #0 FLUoxetine HCL [PROzac] 10 mg PO DAILY Rosuvastatin Calcium [Crestor] 40 mg PO HS Insulin Glargine,Hum.rec.anlog [Lantus Solostar Pen] 20 - 30 units SQ HS Insulin Aspart [NovoLOG Flexpen] 40 units SQ AC-TID Discontinued Isosorbide Mononitrate ER [Imdur] 30 mg PO DAILY Metoprolol Succinate (ER) [Toprol XL] 50 mg PO DAILY Furosemide [Lasix] 20 mg PO BID Discharge Medication List Levothyroxine Sodium [Levoxyl] 175 mcg PO DAILY 10/25/20 [History] FLUoxetine HCL [PROzac] 10 mg PO DAILY 10/08/24 [History] Insulin Aspart [NovoLOG Flexpen] 40 units SQ AC-TID 10/08/24 [History] Insulin Glargine,Hum.rec.anlog [Lantus Solostar Pen] 20 - 30 units SQ HS 10/08/24 [History] Rosuvastatin Calcium [Crestor] 40 mg PO HS 10/08/24 [History] Aspirin 81 mg PO DAILY tab 10/22/24 [Rx] Furosemide [Lasix] 40 mg PO BID #60 tab 10/22/24 [Rx] Lactulose [Cephulac] 30 gm PO BID #900 ml 10/22/24 [Rx] Metoprolol Succinate (ER) [Toprol XL] 50 mg PO BID #60 tab 10/22/24 [Rx] Sennosides [Senokot] 8.6 mg PO DAILY PRN tab 10/22/24 [Rx] Spironolactone [Aldactone] 25 mg PO DAILY #30 tab 10/22/24 [Rx] metOLazone [Zaroxolyn] 5 mg PO DAILY #30 tab 10/22/24 [Rx] Apixaban [Eliquis] 5 mg PO BID #0 10/30/24 [Rx] Cephalexin [Keflex] 500 mg PO BID 3 Days #6 cap 10/30/24 [Rx] Pantoprazole Sodium [Protonix] 40 mg PO BID #60 tab 10/30/24 [Rx] Potassium Chloride ER [K-Dur 20] 20 meq PO DAILY #30 tab 10/30/24 [Rx] Follow up Appointment(s)/Referral(s): Ricardo Duenas [STAFF PHYSICIAN] - 1 Week (Office will be contacting patient for Hematology workup) [facility], [NON-STAFF] - Caitie Watson MD [STAFF PHYSICIAN] - 1 Week Ibrahima Hua MD [Primary Care Provider] - 10/26/24 Little Allen MD [STAFF PHYSICIAN] - 1 Week ([facility] [address],[employer] [NON-STAFF] - As Needed ([employer] contact as requested. Please call them for any equipment needs (i.e. information on getting a ramp)) Ambulatory/Diagnostic Orders: Complete Blood Count w/diff [LAB.AMB] Time Frame: 3 Days, Location: None Selected Patient Instructions/Handouts: Anemia (DC) Discharge Disposition: HOME WITH HOME HEALTH SERVICES
== END 2024-10-30 12:39 | disposition home health service (06) | DRG 291 ==
LOC: EC 16:10 → 3SCARD 19:50 → 4SSUR 10-28 17:36
PROVIDERS: ADMIT Family Medicine; ATTEND Family Medicine
PROC: 5A09557 Assistance with Respiratory Ventilation, Greater than 96 Consecutive Hours, Continuous Positive Airway Pressure (ICD-10-PCS; 2024-10-09)
PROC: 30233N1 Transfusion of Nonautologous Red Blood Cells into Peripheral Vein, Percutaneous Approach (ICD-10-PCS; 2024-10-09)
PROC: 0DB78ZX Excision of Stomach, Pylorus, Via Natural or Artificial Opening Endoscopic, Diagnostic (ICD-10-PCS; 2024-10-19)
PROC: 0DB58ZX Excision of Esophagus, Via Natural or Artificial Opening Endoscopic, Diagnostic (ICD-10-PCS; 2024-10-19)
PROC: 0DB98ZX Excision of Duodenum, Via Natural or Artificial Opening Endoscopic, Diagnostic (ICD-10-PCS; principal; 2024-10-19 08:15)
PROC: 0DBH8ZZ Excision of Cecum, Via Natural or Artificial Opening Endoscopic (ICD-10-PCS; 2024-10-21)
PROC: 0DBL8ZZ Excision of Transverse Colon, Via Natural or Artificial Opening Endoscopic (ICD-10-PCS; 2024-10-21)
PROC: 0W9B3ZZ Drainage of Left Pleural Cavity, Percutaneous Approach (ICD-10-PCS; 2024-10-23)
PROC: 0DJ07ZZ Inspection of Upper Intestinal Tract, Via Natural or Artificial Opening (ICD-10-PCS; 2024-10-28)
DX: I13.0 Hypertensive heart and chronic kidney disease with heart failure and stage 1 through stage 4 chronic kidney disease, or unspecified chronic kidney disease (principal); I50.33 Acute on chronic diastolic (congestive) heart failure; J96.21 Acute and chronic respiratory failure with hypoxia; K31.811 Angiodysplasia of stomach and duodenum with bleeding; D62 Acute posthemorrhagic anemia; E87.3 Alkalosis; Z68.42 Body mass index [BMI] 45.0-49.9, adult; N17.9 Acute kidney failure, unspecified; N39.0 Urinary tract infection, site not specified; K22.10 Ulcer of esophagus without bleeding; I25.10 Atherosclerotic heart disease of native coronary artery without angina pectoris; I27.20 Pulmonary hypertension, unspecified; E78.5 Hyperlipidemia, unspecified; I42.8 Other cardiomyopathies; I48.0 Paroxysmal atrial fibrillation; E11.22 Type 2 diabetes mellitus with diabetic chronic kidney disease; G47.33 Obstructive sleep apnea (adult) (pediatric); E66.01 Morbid (severe) obesity due to excess calories; K64.4 Residual hemorrhoidal skin tags; K64.8 Other hemorrhoids; K29.50 Unspecified chronic gastritis without bleeding; K29.80 Duodenitis without bleeding; N18.9 Chronic kidney disease, unspecified; D12.6 Benign neoplasm of colon, unspecified; K63.89 Other specified diseases of intestine; K21.00 Gastro-esophageal reflux disease with esophagitis, without bleeding; K57.30 Diverticulosis of large intestine without perforation or abscess without bleeding; Z79.01 Long term (current) use of anticoagulants; Z95.3 Presence of xenogenic heart valve; Z79.890 Hormone replacement therapy; Z79.4 Long term (current) use of insulin; Z79.899 Other long term (current) drug therapy; Z88.8 Allergy status to other drugs, medicaments and biological substances; K31.7 Polyp of stomach and duodenum; Z66 Do not resuscitate; Z79.82 Long term (current) use of aspirin; Z95.5 Presence of coronary angioplasty implant and graft; Z96.652 Presence of left artificial knee joint; Z95.0 Presence of cardiac pacemaker; Z99.81 Dependence on supplemental oxygen
CPT/HCPCS: 36415; 36430; 43239; 45385; 71045; 76604; 80048; 80053; 81001; 82728; 83036; 83540; 83550; 83605; 83615; 83735; 83880; 84100; 84155; 84157; 84484; 85025; 85027; 85610; 85730; 86850; 86860; 86870; 86880; 86885; 86900; 86901; 86902; 86905; 86906; 86920; 87070; 87077; 87086; 87102; 87116; 87186; 87205; 87206; 87496; 87498; 87502; 87529; 87634; 87635; 87798; 88108; 88305; 89050; 91110; 93005; 93306; 94660; 94760; 96374; 96375; 96376; 99291

== ENCOUNTER 2024-11-17 11:46 | Emergency (ER) | payer MEDICARE ==
[2024-11-17 11:58] VITALS: RESP 18
--- NOTE | 2024-11-17 12:18 | ED ---
General Adult HPI - General Chief complaint: ENT Stated complaint: Nose Bleed Time Seen by Provider: 11/17/24 12:00 Source: patient, EMS, RN notes reviewed Mode of arrival: EMS Limitations: no limitations - History of Present Illness Initial comments: Patient is a 79-year-old female presenting to the emergency department with concern for nosebleed. Patient has had 5 nosebleeds in the last 2 days. Patient is on Eliquis 5 mg twice daily for secondary to mechanical heart valve. Patient did not take it yesterday nor this morning. Patient did have recent small intestine bleed however that is not a current problem. No rectal bleeding or melena. Recent hemoglobin was 7.1. - Related Data Home Medications Medication Instructions Recorded Confirmed Levothyroxine Sodium [Levoxyl] 175 mcg PO DAILY 10/25/20 10/08/24 FLUoxetine HCL [PROzac] 10 mg PO DAILY 10/08/24 10/08/24 Insulin Aspart [NovoLOG Flexpen] 40 units SQ AC-TID 10/08/24 10/08/24 Insulin Glargine,Hum.rec.anlog 20 - 30 units SQ HS 10/08/24 10/08/24 [Lantus Solostar Pen] Rosuvastatin Calcium [Crestor] 40 mg PO HS 10/08/24 10/08/24 Previous Rx's Medication Instructions Recorded Aspirin 81 mg PO DAILY tab 10/22/24 Furosemide [Lasix] 40 mg PO BID #60 tab 10/22/24 Lactulose [Cephulac] 30 gm PO BID #900 ml 10/22/24 Metoprolol Succinate (ER) [Toprol 50 mg PO BID #60 tab 10/22/24 XL] Sennosides [Senokot] 8.6 mg PO DAILY PRN tab 10/22/24 Spironolactone [Aldactone] 25 mg PO DAILY #30 tab 10/22/24 metOLazone [Zaroxolyn] 5 mg PO DAILY #30 tab 10/22/24 Apixaban [Eliquis] 5 mg PO BID #0 10/30/24 Cephalexin [Keflex] 500 mg PO BID 3 Days #6 cap 10/30/24 Pantoprazole Sodium [Protonix] 40 mg PO BID #60 tab 10/30/24 Potassium Chloride ER [K-Dur 20] 20 meq PO DAILY #30 tab 10/30/24 Allergies Allergy/AdvReac Type Severity Reaction Status Date / Time nitrofurantoin Allergy Rash/Hives Verified 11/17/24 11:58 macrocrystalline [From Macrodantin] phenazopyridine HCl Allergy Rash/Hives Verified 11/17/24 11:58 [From Pyridium] Review of Systems ROS Statement: Those systems with pertinent positive or pertinent negative responses have been documented in the HPI. ROS Other: All systems not noted in ROS Statement are negative. 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 HAD THYROID AND PARATHYROID REMOVAL. TOTAL LEFT KNEE REPLACEMENT, CATARACT RT EYE, CATARACT LEFT EYE SURGERY ,COLONOSCOPY, TVAR- 11/2018 , Aortic valve replacement 10/2018 Past Anesthesia/Blood Transfusion Reactions: No Reported Reaction Type of Cardiac Device: Permanent Pacemaker Device Placement Date:: PACEMAKER NOV 2017. Past Psychological History: No Psychological Hx Reported Smoking Status: Never smoker Past Alcohol Use History: None Reported Past Drug Use History: None Reported - Past Family History Daughter(s) Family Medical History: Deep Vein Thrombosis (DVT) Sister(s) Family Medical History: Cancer Additional Family Medical History / Comment(s): BREAST CANCER General Exam Limitations: no limitations General appearance: alert, in no apparent distress Head exam: Present: normocephalic Eye exam: Present: normal appearance, PERRL, EOMI ENT exam: Present: other (Active bleeding right anterior nasal) Neck exam: Present: normal inspection Respiratory exam: Present: normal lung sounds bilaterally Cardiovascular Exam: Present: regular rate, normal rhythm GI/Abdominal exam: Present: soft. Absent: tenderness Extremities exam: Present: normal inspection Neurological exam: Present: alert Skin exam: Present: normal color Course Vital Signs 11/17/24 11:54 Pulse Rate 62 Respiratory 18 Rate Blood Pressure 118/67 O2 Sat by Pulse 95 Oximetry Procedures - Procedures Initial comment: Epistaxis: Sprayed with Afrin nasal spray. Cauterized using silver nitrate stick with hemostasis obtained Medical Decision Making - Medical Decision Making MDM was pt. sent in by a medical professional or institution (, PA, HYDROGEN POWER PLANT ENGINEER, urgent care, hospital, or residential...) When possible be specific @ -No Did you speak to anyone other than the patient for history (EMS, parent, family, police, friend...)? What history was obtained from this source @ -No Did you review nursing and triage notes (agree or disagree)? Why? @ -I reviewed and agree with nursing and triage notes Were old charts reviewed (outside hosp., previous admission, EMS record, old EKG, old radiological studies, urgent care reports/EKG's, residential records)? Report findings @ -Previous hemoglobin reviewed including recent hemoglobin of 7.1 Differential Diagnosis (chest pain, altered mental status, abdominal pain women, abdominal pain men, vaginal bleeding, weakness, fever, dyspnea, syncope, headache, dizziness, GI bleed, back pain, seizure, CVA, palpatations, mental health, musculoskeletal)? @ -Differential Dizziness: Benign paroxysmal positional Vertigo, Meniere's disease, otitis media, acoustic neuroma, vertebrobasilar insufficiency, cerebellar stroke, encephalitis, hypovolemic, arrhythmia, coronary artery syndrome, anemia, this is not meant to be an all-inclusive list EKG interpreted by me (3pts min.). @ -As above X-rays interpreted by me (1pt min.). @ -None done CT interpreted by me (1pt min.). @ -None done U/S interpreted by me (1pt. min.). @ -None done What testing was considered but not performed or refused? (CT, X-rays, U/S, labs)? Why? @ -None What meds were considered but not given or refused? Why? @ -None Did you discuss the management of the patient with other professionals (professionals i.e. , PA, HYDROGEN POWER PLANT ENGINEER, lab, RT, psych nurse, social services manager, clinical radiologist, teacher, product safety officer, case packer and sealer)? Give summary @ -No Was smoking cessation discussed for >3mins.? @ -No Was critical care preformed (if so, how long)? @ -No Were there social determinants of health that impacted care today? How? (Homelessness, low income, unemployed, alcoholism, drug addiction, transportation, low edu. Level, literacy, decrease access to med. care, fdc, rehab)? @ -No Was there de-escalation of care discussed even if they declined (Discuss DNR or withdrawal of care, Hospice)? DNR status @ -No What co-morbidities impacted this encounter? (DM, HTN, Smoking, COPD, CAD, Cancer, CVA, ARF, Chemo, Hep., AIDS, mental health diagnosis, sleep apnea, morbid obesity)? @ -History of anticoagulant use with Eliquis Was patient admitted / discharged? Hospital course, mention meds given and route, prescriptions, significant lab abnormalities, going to OR and other pertinent info. @ -Patient presents with epistaxis. Cauterized with silver nitrate and maintains hemostasis. Patient and family updated on epistaxis care and need for close follow-up Undiagnosed new problem with uncertain prognosis? @ -No Drug Therapy requiring intensive monitoring for toxicity (Heparin, Nitro, Insulin, Cardizem)? @ -No Were any procedures done? @ -See above, cauterization Diagnosis/symptom? @ -Epistaxis Acute, or Chronic, or Acute on Chronic? @ -Acute Uncomplicated (without systemic symptoms) or Complicated (systemic symptoms)? @ -Default Side effects of treatment? @ -No Exacerbation, Progression, or Severe Exacerbation? @ -No Poses a threat to life or bodily function? How? (Chest pain, USA, PA, pneumonia, PE, COPD, DKA, ARF, appy, cholecystitis, CVA, Diverticulitis, Homicidal, Suicidal, threat to staff... and all critical care pts) @ -Threat to hemodynamic stability - Lab Data Result diagrams: 11/17/24 12:32 11/17/24 12:32 Lab Results 11/17/24 11/17/24 11/17/24 Range/Units 12:32 12:32 12:32 WBC 8.0 (3.8-10.6) k/uL RBC 2.63 L (3.80-5.40) m/uL Hgb 7.4 L (11.4-16.0) gm/dL Hct 23.5 L (34.0-46.0) % MCV 89.6 (80.0-100.0) fL MCH 28.0 (25.0-35.0) pg MCHC 31.3 (31.0-37.0) g/dL RDW 21.5 H (11.5-15.5) % Plt Count 150 (150-450) k/uL MPV 7.5 Neutrophils % 85 % Lymphocytes % 8 % Monocytes % 4 % Eosinophils % 2 % Basophils % 0 % Neutrophils # 6.7 (1.3-7.7) k/uL Lymphocytes # 0.6 L (1.0-4.8) k/uL Monocytes # 0.3 (0-1.0) k/uL Eosinophils # 0.1 (0-0.7) k/uL Basophils # 0.0 (0-0.2) k/uL Hypochromasia Marked Anisocytosis Moderate PT 11.6 (10.0-12.5) sec INR 1.1 (<1.2) APTT 21.2 L (22.0-30.0) sec Sodium 133 L (137-145) mmol/L Potassium 4.1 (3.5-5.1) mmol/L Chloride 96 L (98-107) mmol/L Carbon Dioxide 31 H (22-30) mmol/L Anion Gap 6 mmol/L BUN 29 H (7-17) mg/dL Creatinine 1.08 H (0.52-1.04) mg/dL Est GFR (CKD-EPI)AfAm 57 (>60 ml/min/1.73 sqM) Est GFR (CKD-EPI)NonAf 49 (>60 ml/min/1.73 sqM) Glucose 110 H (74-99) mg/dL Calcium 9.9 (8.4-10.2) mg/dL Disposition Clinical Impression: Epistaxis Disposition: HOME SELF-CARE Condition: Stable Instructions (If sedation given, give patient instructions): Nosebleed (ED) Additional Instructions: Please do follow-up with your primary care physician in the next day or 2 for recheck. Return for increased bleeding, bleeding from other areas, lightheadedness or shortness of breath, worsening symptoms or other concerns Is patient prescribed a controlled substance at d/c from ED?: No Referrals: Ibrahima Hua MD [Primary Care Provider] - 1-2 days Time of Disposition: 14:01
[2024-11-17] MEDS: OXYMETAZOLINE 0.05% NASL SPRAY 1 SPRAY BOTTLE NASAL STA (12:19)
[2024-11-17] MEDS: SILVER NITRATE APPLICATOR 1 EACH STICK..EA. TOPICAL STA (12:19)
[2024-11-17 12:43] LABS: Anisocytosis Moderate; Basophils % (A) 0 %; Eosinophils # (A) 0.1 k/uL (0-0.7); Eosinophils % (A) 2 %; HCT 23.5 % (34.0-46.0); HGB 7.4 gm/dL (11.4-16.0); Hypochromasia Marked; Lymphocytes # (A) 0.6 k/uL (1.0-4.8); Lymphocytes % (A) 8 %; MCHC 31.3 g/dL (31.0-37.0); MCV 89.6 fL (80.0-100.0); Mean Platelet Volume 7.5; Monocytes # (A) 0.3 k/uL (0-1.0); Monocytes % (A) 4 %; Neutrophils # (A) 6.7 k/uL (1.3-7.7); Neutrophils % (A) 85 %; Platelet Count 150 k/uL (150-450); RBC 2.63 m/uL (3.80-5.40); RDW 21.5 % (11.5-15.5)
[2024-11-17 12:55] LABS: African American GFR (CKD) 57 (>60 ml/min/1.73 sqM); Anion Gap 6 mmol/L; Blood Urea Nitrogen 29 mg/dL (7-17); Calcium 9.9 mg/dL (8.4-10.2); Carbon Dioxide 31 mmol/L (22-30); Chloride 96 mmol/L (98-107); Glucose 110 mg/dL (74-99); Non-African American GFR(CKD) 49 (>60 ml/min/1.73 sqM); Potassium 4.1 mmol/L (3.5-5.1); Sodium 133 mmol/L (137-145)
[2024-11-17 13:01] LABS: INR 1.1 (<1.2); Partial Thromboplastin Time 21.2 sec (22.0-30.0); Prothrombin Time 11.6 sec (10.0-12.5)
[2024-11-17 14:39] VITALS: BP 120/68; PULSE 68; TEMP 98.1
== END 2024-11-17 14:40 | disposition home or self-care (01) ==
LOC: EC 11:46
DX: R04.0 Epistaxis (principal); I48.91 Unspecified atrial fibrillation; Z88.1 Allergy status to other antibiotic agents; Z79.01 Long term (current) use of anticoagulants; Z95.0 Presence of cardiac pacemaker
CPT/HCPCS: 30901; 36415; 80048; 85025; 85610; 85730; 99284

== ENCOUNTER → 2024-11-23 | Outpatient (CLI) | payer MEDICARE | END | disposition home or self-care (01) | LOC: LABWHC1 12:47 | PROVIDERS: ATTEND Family Medicine | DX: D50.9 Iron deficiency anemia, unspecified (principal) | CPT/HCPCS: 86850; 86870; 86880; 86900; 86901 ==

== ENCOUNTER 2025-01-28 12:50 | Inpatient (IN) | payer MEDICARE ==
--- NOTE | 2025-01-28 13:17 | ED ---
General Adult HPI - General Stated complaint: edema Time Seen by Provider: 01/28/25 12:52 Source: patient, family, RN notes reviewed Limitations: no limitations - History of Present Illness Initial comments: Patient is a 80-year-old female present to the emergency department with concern for edema. Patient was in the hospital few months ago with similar symptoms. Patient has gained approximately 30 to 40 pounds in the past 2 months. Patient now has exertional dyspnea and is only able to walk around 6 feet. No chest pain. No fever. - Related Data Home Medications Medication Instructions Recorded Confirmed Levothyroxine Sodium [Levoxyl] 175 mcg PO DAILY 10/25/20 11/24/24 FLUoxetine HCL [PROzac] 10 mg PO DAILY 10/08/24 11/24/24 Insulin Aspart [NovoLOG Flexpen] 40 units SQ AC-TID 10/08/24 11/24/24 Insulin Glargine,Hum.rec.anlog 20 - 30 units SQ HS 10/08/24 11/24/24 [Lantus Solostar Pen] Rosuvastatin Calcium [Crestor] 40 mg PO HS 10/08/24 11/24/24 Previous Rx's Medication Instructions Recorded Aspirin 81 mg PO DAILY tab 10/22/24 Furosemide [Lasix] 40 mg PO BID #60 tab 10/22/24 Lactulose [Cephulac] 30 gm PO BID #900 ml 10/22/24 Metoprolol Succinate (ER) [Toprol 50 mg PO BID #60 tab 10/22/24 XL] Sennosides [Senokot] 8.6 mg PO DAILY PRN tab 10/22/24 Spironolactone [Aldactone] 25 mg PO DAILY #30 tab 10/22/24 metOLazone [Zaroxolyn] 5 mg PO DAILY #30 tab 10/22/24 Apixaban [Eliquis] 5 mg PO BID #0 10/30/24 Pantoprazole Sodium [Protonix] 40 mg PO BID #60 tab 10/30/24 Potassium Chloride ER [K-Dur 20] 20 meq PO DAILY #30 tab 10/30/24 Allergies Allergy/AdvReac Type Severity Reaction Status Date / Time nitrofurantoin Allergy Rash/Hives Verified 01/28/25 12:54 macrocrystalline [From Macrodantin] phenazopyridine HCl Allergy Rash/Hives Verified 01/28/25 12:54 [From Pyridium] Review of Systems ROS Statement: Those systems with pertinent positive or pertinent negative responses have been documented in the HPI. ROS Other: All systems not noted in ROS Statement are negative. Constitutional: Denies: fever Eyes: Denies: eye pain ENT: Denies: ear pain Respiratory: Reports: as per HPI. 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 HAD THYROID AND PARATHYROID REMOVAL. TOTAL LEFT KNEE REPLACEMENT, CATARACT RT EYE, CATARACT LEFT EYE SURGERY ,COLONOSCOPY, TVAR- 11/2018 , Aortic valve replacement 10/2018 Past Anesthesia/Blood Transfusion Reactions: No Reported Reaction Type of Cardiac Device: Permanent Pacemaker Device Placement Date:: PACEMAKER NOV 2017. Smoking Status: Never smoker - Past Family History Daughter(s) Family Medical History: Deep Vein Thrombosis (DVT) Sister(s) Family Medical History: Cancer Additional Family Medical History / Comment(s): BREAST CANCER General Exam Limitations: no limitations General appearance: alert, in no apparent distress Head exam: Present: normocephalic Eye exam: Present: normal appearance Neck exam: Present: normal inspection Respiratory exam: Present: normal lung sounds bilaterally Cardiovascular Exam: Present: regular rate, normal rhythm GI/Abdominal exam: Present: soft. Absent: tenderness Extremities exam: Present: pedal edema (Extending to upper legs and abdomen). Absent: calf tenderness Neurological exam: Present: alert Psychiatric exam: Present: normal affect, normal mood Skin exam: Present: normal color Course Vital Signs 01/28/25 12:55 Temperature 97.7 F Pulse Rate 63 Respiratory 22 Rate Blood Pressure 114/54 O2 Sat by Pulse 93 L Oximetry EKG Findings - EKG Results: EKG: interpreted by JANESD (Paced rhythm with a rate of 60. Indeterminate axis. Appearance of Q waves V1 through V3.), sinus rhythm, normal ST/T Medical Decision Making - Medical Decision Making Was pt. sent in by a medical professional or institution (, PA, TEST BORER HELPER, urgent care, hospital, or senior care...) When possible be specific @ -No Did you speak to anyone other than the patient for history (EMS, parent, family, police, friend...)? What history was obtained from this source @ -Daughter is present and helps provide history including history of previous visit and weight gain Did you review nursing and triage notes (agree or disagree)? Why? @ -I reviewed and agree with nursing and triage notes Were old charts reviewed (outside hosp., previous admission, EMS record, old EKG, old radiological studies, urgent care reports/EKG's, senior care records)? Report findings @ -No old charts were reviewed Differential Diagnosis (chest pain, altered mental status, abdominal pain women, abdominal pain men, vaginal bleeding, weakness, fever, dyspnea, syncope, headache, dizziness, GI bleed, back pain, seizure, CVA, palpatations, mental hea lth, musculoskeletal)? @ -Differential Dyspnea: Coronary syndrome, arrhythmia, tamponade, asthma, COPD, pulmonary embolism, pneumonia, pneumothorax, pulmonary effusion, anaphylaxis, diabetic ketoacidosis, flailed chest, pulmonary contusion, diaphragmatic rupture, anemia, neuromuscular, this is not meant to be an all-inclusive list. EKG interpreted by me (3pts min.). @ -As above X-rays interpreted by me (1pt min.). @ -Chest x-ray concerning for CHF CT interpreted by me (1pt min.). @ -None done U/S interpreted by me (1pt. min.). @ -None done What testing was considered but not performed or refused? (CT, X-rays, U/S, labs)? Why? @ -None What meds were considered but not given or refused? Why? @ -None Did you discuss the management of the patient with other professionals (professionals i.e. , PA, TEST BORER HELPER, lab, RT, psych nurse, clinical social work therapist, optician, teacher, environmental health officer, case therapist)? Give summary @ -[facility] dr lopez to admit covering Dr. Pulido Was smoking cessation discussed for >3mins.? @ -No Was critical care preformed (if so, how long)? @ -No Were there social determinants of health that impacted care today? How? (Homelessness, low income, unemployed, alcoholism, drug addiction, transportation, low edu. Level, literacy, decrease access to med. care, alf, rehab)? @ -No Was there de-escalation of care discussed even if they declined (Discuss DNR or withdrawal of care, Hospice)? DNR status @ -No What co-morbidities impacted this encounter? (DM, HTN, Smoking, COPD, CAD, Cancer, CVA, ARF, Chemo, Hep., AIDS, mental health diagnosis, sleep apnea, morbid obesity)? @ -History of edema and CHF Was patient admitted / discharged? Hospital course, mention meds given and route, prescriptions, significant lab abnormalities, going to OR and other pertinent info. @ -Patient presents with increased edema and weight gain and exertional dyspnea. Chest x-ray concerning for CHF. Patient will be admitted. Patient and family updated. Admission orders written. Cardiology will be put in consult. Undiagnosed new problem with uncertain prognosis? @ -No Drug Therapy requiring intensive monitoring for toxicity (Heparin, Nitro, Insulin, Cardizem)? @ -No Were any procedures done? @ -No Diagnosis/symptom? @ -CHF Acute, or Chronic, or Acute on Chronic? @ -Acute Uncomplicated (without systemic symptoms) or Complicated (systemic symptoms)? @ -Default Side effects of treatment? @ -No Exacerbation, Progression, or Severe Exacerbation? @ -No Poses a threat to life or bodily function? How? (Chest pain, USA, AR, pneumonia, PE, COPD, DKA, ARF, appy, cholecystitis, CVA, Diverticulitis, Homicidal, Suicidal, threat to staff... and all critical care pts) @ -Threat to cardiac and pulmonary function - Lab Data Result diagrams: 01/28/25 13:36 01/28/25 13:36 Lab Results 01/28/25 01/28/25 01/28/25 Range/Units 13:36 13:36 13:36 WBC 5.3 (3.8-10.6) k/uL RBC 2.81 L (3.80-5.40) m/uL Hgb 8.8 L (11.4-16.0) gm/dL Hct 28.3 L (34.0-46.0) % MCV 100.6 H (80.0-100.0) fL MCH 31.3 (25.0-35.0) pg MCHC 31.1 (31.0-37.0) g/dL RDW 17.6 H (11.5-15.5) % Plt Count 125 L (150-450) k/uL MPV 7.6 Neutrophils % 84 % Lymphocytes % 7 % Monocytes % 5 % Eosinophils % 2 % Basophils % 0 % Neutrophils # 4.5 (1.3-7.7) k/uL Lymphocytes # 0.4 L (1.0-4.8) k/uL Monocytes # 0.3 (0-1.0) k/uL Eosinophils # 0.1 (0-0.7) k/uL Basophils # 0.0 (0-0.2) k/uL Hypochromasia Marked Anisocytosis Slight Macrocytosis Slight PT 12.1 (10.0-12.5) sec INR 1.1 (<1.2) APTT 24.4 (22.0-30.0) sec Sodium 135 L (137-145) mmol/L Potassium 4.1 (3.5-5.1) mmol/L Chloride 94 L (98-107) mmol/L Carbon Dioxide 35 H (22-30) mmol/L Anion Gap 6 mmol/L BUN 25 H (7-17) mg/dL Creatinine 1.05 H (0.52-1.04) mg/dL Est GFR (CKD-EPI)AfAm 58 (>60 ml/min/1.73 sqM) Est GFR (CKD-EPI)NonAf 51 (>60 ml/min/1.73 sqM) Glucose 202 H (74-99) mg/dL Plasma Lactic Acid Jez (0.7-2.0) mmol/L Calcium 9.8 (8.4-10.2) mg/dL Magnesium 1.6 (1.6-2.3) mg/dL Total Bilirubin 0.7 (0.2-1.3) mg/dL AST 38 H (14-36) U/L ALT 25 (4-34) U/L Alkaline Phosphatase 130 H (38-126) U/L Troponin I (0.000-0.034) ng/mL NT-Pro-B Natriuret Pep 3830 pg/mL Total Protein 7.0 (6.3-8.2) g/dL Albumin 3.7 (3.5-5.0) g/dL 01/28/25 01/28/25 Range/Units 13:36 13:36 WBC (3.8-10.6) k/uL RBC (3.80-5.40) m/uL Hgb (11.4-16.0) gm/dL Hct (34.0-46.0) % MCV (80.0-100.0) fL MCH (25.0-35.0) pg MCHC (31.0-37.0) g/dL RDW (11.5-15.5) % Plt Count (150-450) k/uL MPV Neutrophils % % Lymphocytes % % Monocytes % % Eosinophils % % Basophils % % Neutrophils # (1.3-7.7) k/uL Lymphocytes # (1.0-4.8) k/uL Monocytes # (0-1.0) k/uL Eosinophils # (0-0.7) k/uL Basophils # (0-0.2) k/uL Hypochromasia Anisocytosis Macrocytosis PT (10.0-12.5) sec INR (<1.2) APTT (22.0-30.0) sec Sodium (137-145) mmol/L Potassium (3.5-5.1) mmol/L Chloride (98-107) mmol/L Carbon Dioxide (22-30) mmol/L Anion Gap mmol/L BUN (7-17) mg/dL Creatinine (0.52-1.04) mg/dL Est GFR (CKD-EPI)AfAm (>60 ml/min/1.73 sqM) Est GFR (CKD-EPI)NonAf (>60 ml/min/1.73 sqM) Glucose (74-99) mg/dL Plasma Lactic Acid Jez 1.4 (0.7-2.0) mmol/L Calcium (8.4-10.2) mg/dL Magnesium (1.6-2.3) mg/dL Total Bilirubin (0.2-1.3) mg/dL AST (14-36) U/L ALT (4-34) U/L Alkaline Phosphatase (38-126) U/L Troponin I <0.012 (0.000-0.034) ng/mL NT-Pro-B Natriuret Pep pg/mL Total Protein (6.3-8.2) g/dL Albumin (3.5-5.0) g/dL Disposition Clinical Impression: CHF (congestive heart failure) Disposition: ADMITTED IP TO THIS HOSP Is patient prescribed a controlled substance at d/c from ED?: No Referrals: Ibrahima Hua MD [Primary Care Provider] - 1-2 days Time of Disposition: 14:44
[2025-01-28 13:51] LABS: Anisocytosis Slight; Basophils % (A) 0 %; Eosinophils # (A) 0.1 k/uL (0-0.7); Eosinophils % (A) 2 %; HCT 28.3 % (34.0-46.0); HGB 8.8 gm/dL (11.4-16.0); Hypochromasia Marked; Lymphocytes # (A) 0.4 k/uL (1.0-4.8); Lymphocytes % (A) 7 %; MCH 31.3 pg (25.0-35.0); MCHC 31.1 g/dL (31.0-37.0); MCV 100.6 fL (80.0-100.0); Macrocytosis Slight; Mean Platelet Volume 7.6; Monocytes # (A) 0.3 k/uL (0-1.0); Monocytes % (A) 5 %; Neutrophils # (A) 4.5 k/uL (1.3-7.7); Neutrophils % (A) 84 %; Platelet Count 125 k/uL (150-450); RBC 2.81 m/uL (3.80-5.40); RDW 17.6 % (11.5-15.5); WBC 5.3 k/uL (3.8-10.6)
[2025-01-28] MEDS: FUROSEMIDE 10 MG/ML 4 ML VIAL IV STA (13:56)
[2025-01-28 14:16] LABS: ALT 25 U/L (4-34); AST 38 U/L (14-36); African American GFR (CKD) 58 (>60 ml/min/1.73 sqM); Albumin 3.7 g/dL (3.5-5.0); Alkaline Phosphatase 130 U/L (38-126); Anion Gap 6 mmol/L; Blood Urea Nitrogen 25 mg/dL (7-17); Calcium 9.8 mg/dL (8.4-10.2); Carbon Dioxide 35 mmol/L (22-30); Chloride 94 mmol/L (98-107); Glucose 202 mg/dL (74-99); INR 1.1 (<1.2); Magnesium 1.6 mg/dL (1.6-2.3); Non-African American GFR(CKD) 51 (>60 ml/min/1.73 sqM); Partial Thromboplastin Time 24.4 sec (22.0-30.0); Potassium 4.1 mmol/L (3.5-5.1); Prothrombin Time 12.1 sec (10.0-12.5); Sodium 135 mmol/L (137-145); Total Bilirubin 0.7 mg/dL (0.2-1.3)
--- NOTE | 2025-01-28 14:22 | XR ---
EXAMINATION TYPE: XR chest 2V DATE OF EXAM: 01/28/2025 2:14 PM COMPARISON: Chest radiographs from 10/23/2024 CLINICAL INDICATION: Female, 80 years old with history of difficulty breathing; TECHNIQUE: XR chest 2V Frontal and lateral views of the chest. FINDINGS: Lungs/Pleura: No evidence of focal consolidation or pneumothorax. Blunting of the costophrenic angles is present. Pulmonary vascularity: Unremarkable. Heart/mediastinum: Cardiomediastinal silhouette is unremarkable. Post aortic valve repair changes. T wo lead cardiac conduction device overlying the left hemithorax with lead tips projecting over the ri ght ventricle and right atrium. Musculoskeletal: No acute osseous pathology. IMPRESSION: Cardiomegaly, pulmonary vascular congestion and bilateral pleural effusions. Correlate with BNP for c ongestive heart failure. [facility], , 01/28/2025 2:20 PM
[2025-01-28 14:24] LABS: NT-Pro-B-Type Natriuretic Pept 3830 pg/mL
[2025-01-28] MEDS: ASPIRIN 325 MG TAB PO STA (15:09)
[2025-01-28] MEDS: NITROGLYCERIN OINT 1 INCH/GM PACKET TOPICAL SCH (15:09)
[2025-01-28 20:06] LABS: Glucose,Whole Blood 242 mg/dL (70-110)
[2025-01-28] MEDS: FUROSEMIDE 10 MG/ML 4 ML VIAL IV SCH (20:48)
[2025-01-28] MEDS: INSULIN LISPRO (HumaLOG) 100 UNIT/ML 10 mL VL SQ SCH (22:54)
[2025-01-28] MEDS: ACETAMINOPHEN TAB 325 MG TAB PO PRN (22:54)
[2025-01-28] MEDS: INSULIN GLARGINE (LANTUS) 100 UNIT/ML SYR SQ SCH (23:32)
[2025-01-29] MEDS: LEVOTHYROXINE 88 MCG TAB PO SCH (05:46)
[2025-01-29 06:45] LABS: Glucose,Whole Blood 124 mg/dL (70-110)
[2025-01-29] MEDS ORDERED: INSULIN LISPRO (HumaLOG) 100 UNIT/ML 10 mL VL SQ SCH (07:30)
[2025-01-29] MEDS: CALCIUM CARBONATE 500 MG CHEWABLE PO SCH (08:52)
[2025-01-29] MEDS: ASPIRIN 325 MG TAB PO SCH (08:52)
[2025-01-29] MEDS: METOPROLOL SUCCINATE (ER) 50 MG TAB.ER.24H PO SCH (08:52)
[2025-01-29] MEDS: APIXABAN 5 MG TAB PO SCH (08:52)
[2025-01-29] MEDS: FLUoxetine HCL 10 MG CAP PO SCH (08:53)
--- NOTE | 2025-01-29 10:02 | P.CRDCN ---
History of Present Illness Consult date: 01/29/25 Consult reason: congestive heart failure History of present illness: This is a 80-year-old female patient of Dr. Watson with past medical history of aortic valve replacement and mitral valve replacement and tricuspid valve repair at [facility] in May 2024, coronary artery disease, dual-chamber pacemaker, paroxysmal atrial fibrillation, hyperlipidemia, diabetes mellitus type 2, hypertension. We have been asked to evaluate the patient for CHF. Patient presented to the emergency center due to increase in edema to the lower extremities, shortness of breath and weight gain. Patient also complains of dyspnea on exertion and able to only walk a few feet at a time. Patient had a hospitalization in October 2024 at which time she presented with hemoglobin of 5.5. EGD EGD and colonoscopy did not show source of bleeding. At some point, patient was resumed back on Eliquis and has been taking it as ordered. Blood pressure 122/65, heart rate 64, pulse ox 100% on CPAP. Patient is seen today in the emergency center waiting for a bed on the cardiac stepdown unit. Patient has been started on IV Lasix 40 mg every 8 hours. -EKG: Atrial paced rhythm 60 bpm -Chest x-ray: Cardiomegaly, pulmonary vascular congestion and bilateral pleural effusions. -Laboratory studies: WBC 5.3, hemoglobin 8.8, platelet count 125. Sodium 135, CO2 35, BUN 25 creatinine 1.05. Troponin negative x 1. proBNP 3830. -Home cardiac medications: Eliquis 5 mg twice daily, Lasix 20 mg twice daily, metoprolol succinate 50 mg twice daily. -Echocardiogram reveals EF of 60 to 65%. Technically difficult study with poor acoustic window. Severe pulmonary hypertension with RVSP 56 mmHg. Status post mitral valve replacement, mild mitral stenosis. Aortic valve replacement. -Cardiovascular surgery 05/20/2024: Tissue AVR, tissue MVR, TV repair -Previous CV surgery 11/06/2018: TAVR. -Cardiac catheterization 2020 with stent placed in the mid D1, stent in the ostial PDA. Review Of Systems: At the time of my exam: CONSTITUTIONAL: Denies fever or chills. HEENT: Denies blurred vision, vision changes, or eye pain. Denies hemoptysis CARDIOVASCULAR: Denies chest pain. Denies orthopnea. Denies PND. Denies palpitations RESPIRATORY: Denies shortness of breath. GASTROINTESTINAL: Denies abdominal pain. Denies nausea or vomiting. HEMATOLOGIC: Denies bleeding disorders. GENITOURINARY: Denies any blood in urine. SKIN: Denies puritis. Denies rash. Physical examination: Gen: This is a 80-year-old morbidly obese female in no acute distress VS: reviewed HEENT: Head is atraumatic, normocephalic. Pupils equal, round. Sclerae is anicteric. NECK: Supple. No JVD. LUNGS: Clear to auscultation. No wheezes or rhonchi. No intercostal retractions. HEART: Regular rate and rhythm. No murmur. ABDOMEN: Soft No tenderness. EXTREMITIES: Significant bilateral lower extremity edema. No calf tenderness. NEUROLOGICAL: Patient is awake, alert and oriented x3. Assessment: Acute on chronic diastolic heart failure History of aortic valve replacement, mitral valve replacement, tricuspid valve repair May 2024 at [facility] Coronary artery disease with prior stenting Dual-chamber pacemaker, [facility], November 2017 Paroxysmal atrial fibrillation on Eliquis Hyperlipidemia Diabetes mellitus type 2 Hypertension Moderate to severe pulmonary hypertension Thrombocytopenia Chronic anemia with previous workup for GI bleed, both EGD and colonoscopy negative for source Morbid obesity with BMI of 51 Plan: Resume patient's home cardiac medications Continue IV Lasix 40 mg every 8 hours Discontinue Nitropaste Monitor ALICIA, daily weights, electrolytes and renal function Obtain 2-D echocardiogram and Doppler study to assess cardiac structure and function Further recommendations to follow based upon clinical course Thank you kindly for this consultation. Nurse practitioner note has been reviewed, I agree with documented findings and plan of care. Patient was seen and examined. 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 HAD THYROID AND PARATHYROID REMOVAL. TOTAL LEFT KNEE REPLACEMENT, CATARACT RT EYE, CATARACT LEFT EYE SURGERY ,COLONOSCOPY, TVAR- 11/2018 , Aortic valve replacement 10/2018 Past Anesthesia/Blood Transfusion Reactions: No Reported Reaction Type of Cardiac Device: Permanent Pacemaker Device Placement Date:: PACEMAKER NOV 2017. Smoking Status: Never smoker - Past Family History Daughter(s) Family Medical History: Deep Vein Thrombosis (DVT) Sister(s) Family Medical History: Cancer Additional Family Medical History / Comment(s): BREAST CANCER Medications and Allergies Home Medications Medication Instructions Recorded Confirmed Type Levothyroxine Sodium [Levoxyl] 175 mcg PO DAILY 10/25/20 01/28/25 History FLUoxetine HCL [PROzac] 10 mg PO DAILY 10/08/24 01/28/25 History Insulin Aspart [NovoLOG Flexpen] 40 units SQ TID-W/MEALS 10/08/24 01/28/25 History Insulin Glargine,Hum.rec.anlog 20 units SQ HS 10/08/24 01/28/25 History [Lantus Solostar Pen] Metoprolol Succinate (ER) [Toprol 50 mg PO BID #60 tab 10/22/24 01/28/25 Rx XL] Apixaban [Eliquis] 5 mg PO BID #0 10/30/24 01/28/25 Rx Calcium Carbonate [Calcium] 600 mg PO BID 01/28/25 01/28/25 History Furosemide [Lasix] 20 mg PO BID 01/28/25 01/28/25 History Allergies Allergy/AdvReac Type Severity Reaction Status Date / Time nitrofurantoin Allergy Rash/Hives Verified 01/28/25 16:01 macrocrystalline [From Macrodantin] phenazopyridine HCl Allergy Rash/Hives Verified 01/28/25 16:01 [From Pyridium] Physical Exam Vitals: Vital Signs Temp Pulse Pulse Resp BP BP Pulse Ox 01/29/25 05:52 97.4 F L 60 14 92/48 100 01/29/25 00:00 64 16 100/39 95 01/28/25 22:00 60 15 108/53 96 01/28/25 18:15 60 14 111/53 97 01/28/25 17:04 98.3 F 62 20 128/68 100 01/28/25 12:55 97.7 F 63 22 114/54 93 L Intake and Output 01/28/25 01/29/25 01/29/25 22:59 06:59 14:59 Output Total 500 Balance -500 Output: Urine 500 Other: Voiding Method External Catheter External Catheter Results 01/28/25 13:36 01/28/25 13:36 Cardiac Enzymes 01/28/25 01/28/25 Range/Units 13:36 13:36 AST 38 H (14-36) U/L Troponin I <0.012 (0.000-0.034) ng/mL Coagulation 01/28/25 Range/Units 13:36 PT 12.1 (10.0-12.5) sec APTT 24.4 (22.0-30.0) sec CBC 01/28/25 Range/Units 13:36 WBC 5.3 (3.8-10.6) k/uL RBC 2.81 L (3.80-5.40) m/uL Hgb 8.8 L (11.4-16.0) gm/dL Hct 28.3 L (34.0-46.0) % Plt Count 125 L (150-450) k/uL Comprehensive Metabolic Panel 01/28/25 Range/Units 13:36 Sodium 135 L (137-145) mmol/L Potassium 4.1 (3.5-5.1) mmol/L Chloride 94 L (98-107) mmol/L Carbon Dioxide 35 H (22-30) mmol/L BUN 25 H (7-17) mg/dL Creatinine 1.05 H (0.52-1.04) mg/dL Glucose 202 H (74-99) mg/dL Calcium 9.8 (8.4-10.2) mg/dL AST 38 H (14-36) U/L ALT 25 (4-34) U/L Alkaline Phosphatase 130 H (38-126) U/L Total Protein 7.0 (6.3-8.2) g/dL Albumin 3.7 (3.5-5.0) g/dL Current Medications Generic Name Dose Route Start Last Admin Trade Name Freq PRN Reason Stop Dose Admin Acetaminophen 650 mg 01/28/25 21:48 01/28/25 22:54 Acetaminophen Tab 325 Mg Tab PO 650 mg Q6HR PRN Administration Fever and/ or Pain Aspirin 325 mg 01/29/25 09:00 Aspirin 325 Mg Tab PO DAILY [facility] Calcium Carbonate/Glycine 500 mg 01/29/25 09:00 Calcium Carbonate 500 Mg Chewable PO BID [facility] Fluoxetine HCl 10 mg 01/29/25 09:00 Fluoxetine Hcl 10 Mg Cap PO DAILY [facility] Furosemide 40 mg 01/28/25 22:00 01/29/25 05:46 Furosemide 10 Mg/Ml 4 Ml Vial IV 40 mg Q8H LILIYA Administration Insulin Glargine 20 unit 01/28/25 22:00 01/28/25 23:32 Insulin Glargine (Lantus) 100 Unit/Ml Syr SQ 20 unit HS [facility] Administration Insulin Human Lispro 40 unit 01/28/25 21:49 01/28/25 22:54 Insulin Lispro (Humalog) 100 Unit/Ml 10 Ml Vl SQ 10 unit TID-W/MEALS [facility] Administration Levothyroxine Sodium 176 mcg 01/29/25 06:30 01/29/25 05:46 Levothyroxine 88 Mcg Tab PO 176 mcg DAILY@0630 [facility] Administration Metoprolol Succinate 50 mg 01/29/25 09:00 Metoprolol Succinate (Er) 50 Mg Tab.Er.24h PO BID [facility] Nitroglycerin 1 inch 01/28/25 15:00 01/29/25 05:46 Nitroglycerin Oint 1 Inch/Gm Packet TOPICAL 01/29/25 14:59 1 inch Q6HR [facility] Administration Intake and Output 01/28/25 01/29/25 01/29/25 22:59 06:59 14:59 Output Total 500 Balance -500 Output: Urine 500 Other: Voiding Method External Catheter External Catheter 01/28/25 13:36 01/28/25 13:36
[2025-01-29 12:34] LABS: Glucose,Whole Blood 277 mg/dL (70-110)
[2025-01-29] MEDS: FERROUS SULFATE 325 MG TAB PO SCH (12:48)
[2025-01-29 13:25] LABS: Anisocytosis Slight; Basophils % (A) 0 %; Eosinophils # (A) 0.1 k/uL (0-0.7); Eosinophils % (A) 3 %; HCT 28.1 % (34.0-46.0); HGB 8.7 gm/dL (11.4-16.0); Hypochromasia Marked; Lymphocytes # (A) 0.4 k/uL (1.0-4.8); Lymphocytes % (A) 8 %; MCH 31.3 pg (25.0-35.0); MCHC 30.8 g/dL (31.0-37.0); MCV 101.7 fL (80.0-100.0); Macrocytosis Moderate; Mean Platelet Volume 7.5; Monocytes # (A) 0.2 k/uL (0-1.0); Monocytes % (A) 4 %; Neutrophils # (A) 4.3 k/uL (1.3-7.7); Neutrophils % (A) 85 %; Platelet Count 124 k/uL (150-450); RBC 2.77 m/uL (3.80-5.40); RDW 17.6 % (11.5-15.5); WBC 5.1 k/uL (3.8-10.6)
[2025-01-29 13:44] LABS: African American GFR (CKD) 54 (>60 ml/min/1.73 sqM); Anion Gap 5 mmol/L; Blood Urea Nitrogen 27 mg/dL (7-17); Calcium 9.5 mg/dL (8.4-10.2); Carbon Dioxide 37 mmol/L (22-30); Chloride 94 mmol/L (98-107); Glucose 202 mg/dL (74-99); Non-African American GFR(CKD) 46 (>60 ml/min/1.73 sqM); Potassium 3.6 mmol/L (3.5-5.1); Sodium 136 mmol/L (137-145)
[2025-01-29 17:06] LABS: Glucose,Whole Blood 125 mg/dL (70-110)
[2025-01-29 20:25] LABS: Glucose,Whole Blood 99 mg/dL (70-110)
[2025-01-29] MEDS ORDERED: INSULIN GLARGINE (LANTUS) 100 UNIT/ML SYR SQ SCH (21:00)
[2025-01-30 06:16] LABS: Glucose,Whole Blood 265 mg/dL (70-110)
[2025-01-30] MEDS: DAPAGLIFLOZIN PROPANEDIOL 10 MG TABLET PO SCH (09:19)
[2025-01-30 09:33] LABS: BUN/Creat Ratio 17.92 Ratio (12.00-20.00); Blood Urea Nitrogen 21.5 mg/dL (9.0-27.0); Calcium 9.4 mg/dL (8.7-10.3); Carbon Dioxide 33.7 mmol/L (21.6-31.8); Chloride 96 mmol/L (96-109); Glucose 118 mg/dL (70-110); Potassium 3.4 mmol/L (3.5-5.5); Sodium 141 mmol/L (135-145)
--- NOTE | 2025-01-30 10:18 | P.PN ---
Subjective HISTORY OF PRESENT ILLNESS: This is a 80-year-old female patient of Dr. Watson with past medical history of aortic valve replacement and mitral valve replacement and tricuspid valve repair at [facility] in May 2024, coronary artery disease, dual-chamber pacemaker, paroxysmal atrial fibrillation, hyperlipidemia, diabetes mellitus type 2, hypertension. We have been asked to evaluate the patient for CHF. Patient presented to the emergency center due to increase in edema to the lower extremities, shortness of breath and weight gain. Patient also complains of dyspnea on exertion and able to only walk a few feet at a time. Patient had a hospitalization in September/October 2024 at which time she presented with hemoglobin of 5.5. EGD EGD and colonoscopy did not show source of bleeding. At some point, patient was resumed back on Eliquis and has been taking it as ordered. Blood pressure 122/65, heart rate 64, pulse ox 100% on CPAP. Patient is seen today in the emergency center waiting for a bed on the cardiac stepdown unit. Patient has been started on IV Lasix 40 mg every 8 hours. -EKG: Atrial paced rhythm 60 bpm -Chest x-ray: Cardiomegaly, pulmonary vascular congestion and bilateral pleural effusions. -Laboratory studies: WBC 5.3, hemoglobin 8.8, platelet count 125. Sodium 135, CO2 35, BUN 25 creatinine 1.05. Troponin negative x 1. proBNP 3830. -Home cardiac medications: Eliquis 5 mg twice daily, Lasix 20 mg twice daily, metoprolol succinate 50 mg twice daily. -Echocardiogram reveals EF of 60 to 65%. Technically difficult study with poor acoustic window. Severe pulmonary hypertension with RVSP 56 mmHg. Status post mitral valve replacement, mild mitral stenosis. Aortic valve replacement. -Cardiovascular surgery 05/20/2024: Tissue AVR, tissue MVR, TV repair -Previous CV surgery 11/06/2018: TAVR. -Cardiac catheterization 2020 with stent placed in the mid D1, stent in the ostial PDA. 01/30/2025 Patient examined this morning at the bedside. Patient currently denies chest pain or pressure. She states she is not feeling very well this morning. She continues to report shortness of breath. Patient is currently on IV Lasix 40 mg every 8 hours. BUN 21. Creatinine 1.2. Urine output over the last 24 hours is 1500 cc. PHYSICAL EXAM: VITAL SIGNS: Reviewed. GENERAL: Well-developed in no acute distress. NECK: Supple. No JVD or thyromegaly LUNGS: Respirations even and unlabored. Lungs essentially clear to auscultation bilaterally, diminished. HEART: Regular rate and rhythm. S1 and S2 heard. EXTREMITIES: Normal range of motion. No clubbing or cyanosis. Peripheral pulses intact. Bilateral lower extremity edema noted. ASSESSMENT: Acute on chronic diastolic heart failure History of aortic valve replacement, mitral valve replacement, tricuspid valve repair May 2024 at [facility] Coronary artery disease with prior stenting Dual-chamber pacemaker, [employer], November 2017 Paroxysmal atrial fibrillation on Eliquis Hyperlipidemia Diabetes mellitus type 2 Hypertension Moderate to severe pulmonary hypertension Thrombocytopenia Chronic anemia with previous workup for GI bleed, both EGD and colonoscopy negative for source Morbid obesity with BMI of 51 PLAN: Continue current cardiac medications including Eliquis and metoprolol Add Farxiga 10 mg daily Add atorvastatin 40 mg at night Continue IV Lasix 40 mg every 8 hours Daily weights, accurate intake and output, and monitoring of kidney function Further recommendations pending patient course Nurse practitioner note has been reviewed by physician. Signing provider agrees with the documented findings, assessment, and plan of care documented by [employer] as a scribe. Objective - Vital Signs Vital signs: Vital Signs Temp 97.5 F L 01/30/25 07:00 Pulse 80 01/30/25 07:00 Resp 15 01/30/25 07:00 BP 97/62 01/30/25 07:00 Pulse Ox 99 01/30/25 07:00 FiO2 Intake & Output 01/29/25 01/30/25 01/30/25 18:59 06:59 18:59 Output Total 800 720 Balance -800 -720 Weight 131.542 kg 135 kg Output: Urine 800 720 Other: Voiding Method External Catheter External Catheter # Voids 2 1 - Labs CBC & Chem 7: 01/29/25 13:05 01/30/25 05:58 Labs: Abnormal Lab Results - Last 24 Hours (Table) 01/29/25 01/29/25 01/29/25 Range/Units 12:33 13:05 13:05 RBC 2.77 L (3.80-5.40) m/uL Hgb 8.7 L (11.4-16.0) gm/dL Hct 28.1 L (34.0-46.0) % MCV 101.7 H (80.0-100.0) fL MCHC 30.8 L (31.0-37.0) g/dL RDW 17.6 H (11.5-15.5) % Plt Count 124 L (150-450) k/uL Lymphocytes # 0.4 L (1.0-4.8) k/uL Sodium 136 L (137-145) mmol/L Potassium (3.5-5.5) mmol/L Chloride 94 L (98-107) mmol/L Carbon Dioxide 37 H (22-30) mmol/L BUN 27 H (7-17) mg/dL Creatinine 1.13 H (0.52-1.04) mg/dL Est GFR (CKD-EPI) (>=60) Glucose 202 H (74-99) mg/dL POC Glucose (mg/dL) 277 H (70-110) mg/dL 01/29/25 01/30/25 01/30/25 Range/Units 17:05 05:58 06:14 RBC (3.80-5.40) m/uL Hgb (11.4-16.0) gm/dL Hct (34.0-46.0) % MCV (80.0-100.0) fL MCHC (31.0-37.0) g/dL RDW (11.5-15.5) % Plt Count (150-450) k/uL Lymphocytes # (1.0-4.8) k/uL Sodium (137-145) mmol/L Potassium 3.4 L (3.5-5.5) mmol/L Chloride (98-107) mmol/L Carbon Dioxide 33.7 H (22-30) mmol/L BUN (7-17) mg/dL Creatinine (0.52-1.04) mg/dL Est GFR (CKD-EPI) 46 L (>=60) Glucose 118 H (74-99) mg/dL POC Glucose (mg/dL) 125 H 265 H (70-110) mg/dL
[2025-01-30 10:25] LABS: Basophils # (A) 0.03 X 10*3/uL (0.00-0.10); Basophils % (A) 0.7 %; Eosinophils # (A) 0.09 X 10*3/uL (0.04-0.35); Eosinophils % (A) 2.1 %; HCT 26.5 % (37.2-46.3); Lymphocytes # (A) 0.62 X 10*3/uL (0.90-5.00); Lymphocytes % (A) 14.1 %; MCH 30.8 pg (27.0-32.0); MCHC 30.2 g/dL (32.0-37.0); MCV 101.9 FL (80.0-97.0); Mean Platelet Volume 10.4 FL (9.5-12.2); Monocytes # (A) 0.37 X 10*3/uL (0.20-1.00); Monocytes % (A) 8.4 %; NRBC Per 100 WBC 0 X 10*3/uL (0.00-0.01); Neutrophils # (A) 3.27 X 10*3/uL (1.80-7.70); Neutrophils % (A) 74.5 %; Platelet Count 118 X 10*3/uL (140-440); RDW 17.7 % (11.5-14.5); WBC 4.39 X 10*3/uL (4.50-10.00)
--- NOTE | 2025-01-30 11:29 | CA ---
Transthoracic Echo Report Name: Sheila Perales Age: 80 Gender: F : 1945 Exam Date: 01/30/2025 08:43 Exam Location: [facility] Ht (in): 63 Wt (lb): 290 Ordering Physician: Janna Verde Attending/Referring Phys: [id number], Ammon Sedimentationist Maria Alejandra De Oliveira RDCS Procedure CPT: Indications: eval heart structure Cardiac Hx: AV Replacement, MV Replacement, TV repair, Pacemaker Technical Quality: Very technically difficult study Contrast 1: Total Dose (mL): Contrast 2: Total Dose (mL): MEASUREMENTS (Male / Female) Normal Values M-MODE Aortic Root Diameter MM 3.5 cm LA Systolic Diameter MM 4.2 cm LA Ao Ratio MM 1.2 DOPPLER AV Peak Velocity 124.7 cm/s AV Peak Gradient 6.2 mmHg AV Mean Velocity 92.5 cm/s AV Mean Gradient 3.8 mmHg AV Velocity Time Integral 23.6 cm LVOT Peak Velocity 81.8 cm/s LVOT Peak Gradient 2.7 mmHg LVOT Velocity Time Integral 23.4 cm MV Peak Velocity 213.1 cm/s MV Peak Gradient 18.2 mmHg MV Mean Velocity 135.7 cm/s MV Mean Gradient 8.6 mmHg MV Velocity Time Integral 49.6 cm MV Area PHT 1.9 cm??? Mitral E Point Velocity 187.8 cm/s Mitral A Point Velocity 0.6 cm/s Mitral E to A Ratio 309.7 MV Deceleration Time 404.7 ms TV Peak Velocity 106.0 cm/s TR Peak Velocity 338.5 cm/s TR Peak Gradient 45.8 mmHg Right Ventricular Systolic Press 60.8 mmHg FINDINGS Left Ventricle Left ventricular ejection fraction is estimated at 40-45%. Mildly reduced global left ventricular systolic function. Left ventricle not well visualized. Right Ventricle Moderate right ventricular dilatation. Severe pulmonary hypertension. Right Atrium Moderate right atrial dilatation. Catheter/pacemaker wire in the right atrial cavity. Left Atrium Severe left atrial dilatation. Mitral Valve Mitral valve not well visualized. MV Replacement, MV Mean PG 8.6 mmHg. 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 Mild prosthetic mitral valve regurgitation. Rheumatic mitral valve. Severe subvalvular mitral calcification. Aortic Valve AV Repalcement, AV Mean PG 3.8 mmHg. Aortic valve not well visualized. No paravalvular aortic regurgitation. No central aortic regurgitation. Tricuspid Valve TV Repair Mean PG 2 mmHg. Moderate tricuspid regurgitation. Pulmonic Valve Pulmonic valve not well visualized. Pericardium No pericardial or pleural effusion. Aorta Aorta at upper limits of normal. CONCLUSIONS suboptimal EF 40-45% severe pulmonary HTN difficult to comment on valves Previewed by: Dr. Db Allen MD (Electronically Signed) Final Date: 30 January 2025 11:29
[2025-01-30] MEDS: POTASSIUM CHLORIDE ER 20 MEQ TAB.ER PO STA (12:04)
[2025-01-30 12:14] LABS: Glucose,Whole Blood 199 mg/dL (70-110)
[2025-01-30 13:44] VITALS: BMI 52.7
[2025-01-30 17:11] LABS: Glucose,Whole Blood 125 mg/dL (70-110)
[2025-01-30 19:24] LABS: Glucose,Whole Blood 120 mg/dL (70-110)
[2025-01-30] MEDS: ATORVASTATIN 40 MG TAB PO SCH (21:09)
[2025-01-31 06:02] LABS: Glucose,Whole Blood 119 mg/dL (70-110)
[2025-01-31 09:19] LABS: BUN/Creat Ratio 16.08 Ratio (12.00-20.00); Blood Urea Nitrogen 20.9 mg/dL (9.0-27.0); Chloride 95 mmol/L (96-109); Glucose 99 mg/dL (70-110); Potassium 3.6 mmol/L (3.5-5.5); Sodium 141 mmol/L (135-145)
[2025-01-31 09:20] LABS: Basophils # (A) 0.04 X 10*3/uL (0.00-0.10); Basophils % (A) 0.7 %; Calcium 9.4 mg/dL (8.7-10.3); Carbon Dioxide 34.5 mmol/L (21.6-31.8); Eosinophils # (A) 0.17 X 10*3/uL (0.04-0.35); HCT 26.8 % (37.2-46.3); HGB 8.2 g/dL (12.0-15.0); Lymphocytes # (A) 0.68 X 10*3/uL (0.90-5.00); Lymphocytes % (A) 12.2 %; MCH 30.8 pg (27.0-32.0); MCHC 30.6 g/dL (32.0-37.0); MCV 100.8 FL (80.0-97.0); Mean Platelet Volume 10.5 FL (9.5-12.2); Monocytes # (A) 0.56 X 10*3/uL (0.20-1.00); NRBC Per 100 WBC 0 X 10*3/uL (0.00-0.01); Neutrophils # (A) 4.11 X 10*3/uL (1.80-7.70); Neutrophils % (A) 73.7 %; Platelet Count 134 X 10*3/uL (140-440); RBC 2.66 X 10*6/uL (4.10-5.20); RDW 17.9 % (11.5-14.5); WBC 5.58 X 10*3/uL (4.50-10.00)
--- NOTE | 2025-01-31 10:30 | P.PN ---
Subjective HISTORY OF PRESENT ILLNESS: This is a 80-year-old female patient of Dr. Watson with past medical history of aortic valve replacement and mitral valve replacement and tricuspid valve repair at [facility] in May 2024, coronary artery disease, dual-chamber pacemaker, paroxysmal atrial fibrillation, hyperlipidemia, diabetes mellitus type 2, hypertension. We have been asked to evaluate the patient for CHF. Patient presented to the emergency center due to increase in edema to the lower extremities, shortness of breath and weight gain. Patient also complains of dyspnea on exertion and able to only walk a few feet at a time. Patient had a hospitalization in September/October 2024 at which time she presented with hemoglobin of 5.5. EGD EGD and colonoscopy did not show source of bleeding. At some point, patient was resumed back on Eliquis and has been taking it as ordered. Blood pressure 122/65, heart rate 64, pulse ox 100% on CPAP. Patient is seen today in the emergency center waiting for a bed on the cardiac stepdown unit. Patient has been started on IV Lasix 40 mg every 8 hours. -EKG: Atrial paced rhythm 60 bpm -Chest x-ray: Cardiomegaly, pulmonary vascular congestion and bilateral pleural effusions. -Laboratory studies: WBC 5.3, hemoglobin 8.8, platelet count 125. Sodium 135, CO2 35, BUN 25 creatinine 1.05. Troponin negative x 1. proBNP 3830. -Home cardiac medications: Eliquis 5 mg twice daily, Lasix 20 mg twice daily, metoprolol succinate 50 mg twice daily. -Echocardiogram reveals EF of 60 to 65%. Technically difficult study with poor acoustic window. Severe pulmonary hypertension with RVSP 56 mmHg. Status post mitral valve replacement, mild mitral stenosis. Aortic valve replacement. -Cardiovascular surgery 05/20/2024: Tissue AVR, tissue MVR, TV repair -Previous CV surgery 11/06/2018: TAVR. -Cardiac catheterization 2020 with stent placed in the mid D1, stent in the ostial PDA. 01/30/2025 Patient examined this morning at the bedside. Patient currently denies chest pain or pressure. She states she is not feeling very well this morning. She continues to report shortness of breath. Patient is currently on IV Lasix 40 mg every 8 hours. BUN 21. Creatinine 1.2. Urine output over the last 24 hours is 1500 cc. 01/31/2025 Patient examined this morning at bedside. Patient denies chest pain or pressure. She does report shortness of breath although improving. She continues to have significant edema although slowly improving. She remains on IV Lasix. Creatinine today 1.3. Patient's weight is down approximately 5 kg from yesterday. PHYSICAL EXAM: VITAL SIGNS: Reviewed. GENERAL: Well-developed in no acute distress. NECK: Supple. No JVD or thyromegaly LUNGS: Respirations even and unlabored. Lungs essentially clear to auscultation bilaterally, diminished. HEART: Regular rate and rhythm. S1 and S2 heard. EXTREMITIES: Normal range of motion. No clubbing or cyanosis. Peripheral p ulses intact. Bilateral lower extremity edema noted. ASSESSMENT: Acute on chronic diastolic heart failure History of aortic valve replacement, mitral valve replacement, tricuspid valve repair May 2024 at [facility] Coronary artery disease with prior stenting Dual-chamber pacemaker, [employer], November 2017 Paroxysmal atrial fibrillation on Eliquis Hyperlipidemia Diabetes mellitus type 2 Hypertension Moderate to severe pulmonary hypertension Thrombocytopenia Chronic anemia with previous workup for GI bleed, both EGD and colonoscopy negative for source Morbid obesity with BMI of 51 PLAN: Continue current cardiac medications including Eliquis and metoprolol Farxiga and atorvastatin added yesterday Continue IV Lasix 40 mg every 8 hours Daily weights, accurate intake and output, and monitoring of kidney function Further recommendations pending patient course Nurse practitioner note has been reviewed by physician. Signing provider agrees with the documented findings, assessment, and plan of care documented by [employer]URANCE [employer] as a scribe. Objective - Vital Signs Vital signs: Vital Signs Temp 98.8 F 01/31/25 07:00 Pulse 58 L 01/31/25 07:00 Resp 15 01/31/25 07:00 BP 114/68 01/31/25 07:00 Pulse Ox 98 01/31/25 08:09 FiO2 Intake & Output 01/30/25 01/31/25 01/31/25 18:59 06:59 18:59 Output Total 910 Balance -910 Weight 135 kg 130 kg Output: Urine 910 Other: Voiding Method External Catheter External Catheter - Labs CBC & Chem 7: 01/31/25 04:09 01/31/25 04:09 Labs: Abnormal Lab Results - Last 24 Hours (Table) 01/30/25 01/30/25 01/30/25 Range/Units 12:13 17:10 19:23 RBC (4.10-5.20) X 10*6/uL Hgb (12.0-15.0) g/dL Hct (37.2-46.3) % MCV (80.0-97.0) FL MCHC (32.0-37.0) g/dL RDW (11.5-14.5) % Plt Count (140-440) X 10*3/uL Lymphocytes # (0.90-5.00) X 10*3/uL Chloride (96-109) mmol/L Carbon Dioxide (21.6-31.8) mmol/L Est GFR (CKD-EPI) (>=60) POC Glucose (mg/dL) 199 H 125 H 120 H (70-110) mg/dL 01/31/25 01/31/25 01/31/25 Range/Units 04:09 04:09 06:01 RBC 2.66 L (4.10-5.20) X 10*6/uL Hgb 8.2 L (12.0-15.0) g/dL Hct 26.8 L (37.2-46.3) % MCV 100.8 H (80.0-97.0) FL MCHC 30.6 L (32.0-37.0) g/dL RDW 17.9 H (11.5-14.5) % Plt Count 134 L (140-440) X 10*3/uL Lymphocytes # 0.68 L (0.90-5.00) X 10*3/uL Chloride 95 L (96-109) mmol/L Carbon Dioxide 34.5 H (21.6-31.8) mmol/L Est GFR (CKD-EPI) 42 L (>=60) POC Glucose (mg/dL) 119 H (70-110) mg/dL
[2025-01-31 11:56] LABS: Glucose,Whole Blood 139 mg/dL (70-110)
--- NOTE | 2025-01-31 14:47 | P.HPIM ---
History of Present Illness H&P Date: 01/29/25 Chief Complaint: Generalized swelling/shortness of breath 80-year-old female present to the emergency department with concern for edema. Patient was in the hospital few months ago with similar symptoms. Patient has gained approximately 30 to 40 pounds in the past 2 months. Patient now has exertional dyspnea and is only able to walk around 6 feet. No chest pain. No fever. Blood work completed in ED reveals WBC of 5.1, hemoglobin of 8.7 and platelet count of 124, sodium 136, potassium 3.6, BUNs/creatinine of 27/1.13 and blood glucose of 202, AST mildly elevated at 38 with BNP of 3830, troponin less than 0.012 EKG: Paced rhythm with a rate of 60. Indeterminate axis. Appearance of Q waves V1 through V3.), sinus rhythm, normal ST/T Chest x-ray reveals cardiomegaly, pulmonary vascular congestion and bilateral pleural effusion Review of Systems REVIEW OF SYSTEMS: CONSTITUTIONAL: No fever, no malaise, no fatigue. HEENT: No recent visual problems or hearing problems. Denied any sore throat. CARDIOVASCULAR: No chest pain, orthopnea, PND, no palpitations, no syncope. PULMONARY: No shortness of breath, no cough, no hemoptysis. GASTROINTESTINAL: No diarrhea, no nausea, no vomiting, no abdominal pain. NEUROLOGICAL: No headaches, no weakness, no numbness. HEMATOLOGICAL: Denies any bleeding or petechiae. GENITOURINARY: Denies any burning micturition, frequency, or urgency. MUSCULOSKELETAL/RHEUMATOLOGICAL: Denies any joint pain, swelling, or any muscle pain. ENDOCRINE: Denies any polyuria or polydipsia. The rest of the 14-point review of systems is negative. 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 HAD THYROID AND PARATHYROID REMOVAL. TOTAL LEFT KNEE REPLACEMENT, CATARACT RT EYE, CATARACT LEFT EYE SURGERY ,COLONOSCOPY, TVAR- 11/2018 , Aortic valve replacement 10/2018 Past Anesthesia/Blood Transfusion Reactions: No Reported Reaction Type of Cardiac Device: Permanent Pacemaker Device Placement Date:: PACEMAKER NOV 2017. Smoking Status: Never smoker - Past Family History Daughter(s) Family Medical History: Deep Vein Thrombosis (DVT) Sister(s) Family Medical History: Cancer Additional Family Medical History / Comment(s): BREAST CANCER Medications and Allergies Home Medications Medication Instructions Recorded Confirmed Type Levothyroxine Sodium [Levoxyl] 175 mcg PO DAILY 10/25/20 01/28/25 History FLUoxetine HCL [PROzac] 10 mg PO DAILY 10/08/24 01/28/25 History Insulin Aspart [NovoLOG Flexpen] 40 units SQ TID-W/MEALS 10/08/24 01/28/25 History Insulin Glargine,Hum.rec.anlog 20 units SQ HS 10/08/24 01/28/25 History [Lantus Solostar Pen] Metoprolol Succinate (ER) [Toprol 50 mg PO BID #60 tab 10/22/24 01/28/25 Rx XL] Apixaban [Eliquis] 5 mg PO BID #0 10/30/24 01/28/25 Rx Calcium Carbonate [Calcium] 600 mg PO BID 01/28/25 01/28/25 History Furosemide [Lasix] 20 mg PO BID 01/28/25 01/28/25 History Allergies Allergy/AdvReac Type Severity Reaction Status Date / Time nitrofurantoin Allergy Rash/Hives Verified 01/28/25 16:01 macrocrystalline [From Macrodantin] phenazopyridine HCl Allergy Rash/Hives Verified 01/28/25 16:01 [From Pyridium] Physical Exam Vitals: Vital Signs Temp Pulse Pulse Resp BP BP Pulse Ox 01/29/25 11:17 97 01/29/25 08:00 64 16 122/65 100 01/29/25 05:52 97.4 F L 60 14 92/48 100 01/29/25 00:00 64 16 100/39 95 01/28/25 22:00 60 15 108/53 96 01/28/25 18:15 60 14 111/53 97 01/28/25 17:04 98.3 F 62 20 128/68 100 01/28/25 12:55 97.7 F 63 22 114/54 93 L Intake and Output 01/28/25 01/29/25 01/29/25 22:59 06:59 14:59 Output Total 500 Balance -500 Output: Urine 500 Other: Voiding Method External Catheter External Catheter External Catheter General appearance: alert, in no apparent distress Head exam: Present: normocephalic Eye exam: Present: normal appearance Neck exam: Present: normal inspection Respiratory exam: Present: normal lung sounds bilaterally Cardiovascular Exam: Present: regular rate, normal rhythm GI/Abdominal exam: Present: soft. Absent: tenderness Extremities exam: Present: pedal edema (Extending to upper legs and abdomen). Absent: calf tenderness Neurological exam: Present: alert Psychiatric exam: Present: normal affect, normal mood Skin exam: Present: normal color Results CBC & Chem 7: 01/31/25 04:09 01/31/25 04:09 Labs: Abnormal Lab Results - Last 24 Hours (Table) 01/28/25 01/28/25 01/28/25 Range/Units 13:36 13:36 20:04 RBC 2.81 L (3.80-5.40) m/uL Hgb 8.8 L (11.4-16.0) gm/dL Hct 28.3 L (34.0-46.0) % MCV 100.6 H (80.0-100.0) fL RDW 17.6 H (11.5-15.5) % Plt Count 125 L (150-450) k/uL Lymphocytes # 0.4 L (1.0-4.8) k/uL Sodium 135 L (137-145) mmol/L Chloride 94 L (98-107) mmol/L Carbon Dioxide 35 H (22-30) mmol/L BUN 25 H (7-17) mg/dL Creatinine 1.05 H (0.52-1.04) mg/dL Glucose 202 H (74-99) mg/dL POC Glucose (mg/dL) 242 H (70-110) mg/dL AST 38 H (14-36) U/L Alkaline Phosphatase 130 H (38-126) U/L 01/29/25 01/29/25 Range/Units 06:43 12:33 RBC (3.80-5.40) m/uL Hgb (11.4-16.0) gm/dL Hct (34.0-46.0) % MCV (80.0-100.0) fL RDW (11.5-15.5) % Plt Count (150-450) k/uL Lymphocytes # (1.0-4.8) k/uL Sodium (137-145) mmol/L Chloride (98-107) mmol/L Carbon Dioxide (22-30) mmol/L BUN (7-17) mg/dL Creatinine (0.52-1.04) mg/dL Glucose (74-99) mg/dL POC Glucose (mg/dL) 124 H 277 H (70-110) mg/dL AST (14-36) U/L Alkaline Phosphatase (38-126) U/L Assessment and Plan Assessment: 1. Acute exacerbation diastolic CHF -Echocardiogram reveals EF of 60 to 65% -Patient has been placed on Lasix 40 mg IV every 8 hours -Monitor strict ALICIA's, daily weight, low-salt and fluid restricted diet Cardiology on board; appreciate recommendations 2. Acute renal injury; we will monitor strict ALICIA's, daily weights, renal function electrolytes; avoid nephrotoxins and hypotension; hold off on IV fluid hydration given acute CHF 3. Paroxysmal atrial fibrillation; patient is anticoagulated with Eliquis 5 mg twice daily 4. Hypertension; metoprolol 50 mg twice daily 5. Hyperlipidemia; Lipitor 40 mg p.o. nightly 6. Diabetes mellitus type 2; Lantus 20 units SQ nightly; continue home dose of Humalog 40 units SQ before every meal; Farxiga 10 mg daily 7. Chronic anemia; patient is status post EGD and colonoscopy in the past which was negative for any acute abnormality 8. Hypothyroidism; levothyroxine 175 mcg daily DVT prophylaxis; SCDs/Eliquis CODE STATUS; full code
--- NOTE | 2025-01-31 14:48 | P.PN ---
Subjective Progress Note Date: 01/30/25 80-year-old female present to the emergency department with concern for edema. Patient was in the hospital few months ago with similar symptoms. Patient has gained approximately 30 to 40 pounds in the past 2 months. Patient now has exertional dyspnea and is only able to walk around 6 feet. No chest pain. No fever. Blood work completed in ED reveals WBC of 5.1, hemoglobin of 8.7 and platelet count of 124, sodium 136, potassium 3.6, BUNs/creatinine of 27/1.13 and blood glucose of 202, AST mildly elevated at 38 with BNP of 3830, troponin less than 0.012 EKG: Paced rhythm with a rate of 60. Indeterminate axis. Appearance of Q waves V1 through V3.), sinus rhythm, normal ST/T Chest x-ray reveals cardiomegaly, pulmonary vascular congestion and bilateral pleural effusion Objective - Vital Signs Vital signs: Vital Signs Temp 97.5 F L 01/30/25 07:00 Pulse 80 01/30/25 07:00 Resp 15 01/30/25 07:00 BP 97/62 01/30/25 07:00 Pulse Ox 99 01/30/25 07:00 FiO2 Intake & Output 01/29/25 01/30/25 01/30/25 18:59 06:59 18:59 Output Total 800 720 Balance -800 -720 Weight 131.542 kg 135 kg Output: Urine 800 720 Other: Voiding Method External Catheter External Catheter External Catheter # Voids 2 1 - Exam General appearance: alert, in no apparent distress Head exam: Present: normocephalic Eye exam: Present: normal appearance Neck exam: Present: normal inspection Respiratory exam: Present: normal lung sounds bilaterally Cardiovascular Exam: Present: regular rate, normal rhythm GI/Abdominal exam: Present: soft. Absent: tenderness Extremities exam: Present: pedal edema (Extending to upper legs and abdomen). Absent: calf tenderness Neurological exam: Present: alert Psychiatric exam: Present: normal affect, normal mood Skin exam: Present: normal color - Labs CBC & Chem 7: 01/31/25 04:09 01/31/25 04:09 Labs: Abnormal Lab Results - Last 24 Hours (Table) 01/29/25 01/29/25 01/29/25 Range/Units 12:33 13:05 13:05 WBC (4.50-10.00) X 10*3/uL RBC 2.77 L (3.80-5.40) m/uL Hgb 8.7 L (11.4-16.0) gm/dL Hct 28.1 L (34.0-46.0) % MCV 101.7 H (80.0-100.0) fL MCHC 30.8 L (31.0-37.0) g/dL RDW 17.6 H (11.5-15.5) % Plt Count 124 L (150-450) k/uL Lymphocytes # 0.4 L (1.0-4.8) k/uL Sodium 136 L (137-145) mmol/L Potassium (3.5-5.5) mmol/L Chloride 94 L (98-107) mmol/L Carbon Dioxide 37 H (22-30) mmol/L BUN 27 H (7-17) mg/dL Creatinine 1.13 H (0.52-1.04) mg/dL Est GFR (CKD-EPI) (>=60) Glucose 202 H (74-99) mg/dL POC Glucose (mg/dL) 277 H (70-110) mg/dL 01/29/25 01/30/25 01/30/25 Range/Units 17:05 05:58 05:58 WBC 4.39 L (4.50-10.00) X 10*3/uL RBC 2.60 L (3.80-5.40) m/uL Hgb 8.0 L (11.4-16.0) gm/dL Hct 26.5 L (34.0-46.0) % MCV 101.9 H (80.0-100.0) fL MCHC 30.2 L (31.0-37.0) g/dL RDW 17.7 H (11.5-15.5) % Plt Count 118 L (150-450) k/uL Lymphocytes # 0.62 L (1.0-4.8) k/uL Sodium (137-145) mmol/L Potassium 3.4 L (3.5-5.5) mmol/L Chloride (98-107) mmol/L Carbon Dioxide 33.7 H (22-30) mmol/L BUN (7-17) mg/dL Creatinine (0.52-1.04) mg/dL Est GFR (CKD-EPI) 46 L (>=60) Glucose 118 H (74-99) mg/dL POC Glucose (mg/dL) 125 H (70-110) mg/dL 01/30/25 Range/Units 06:14 WBC (4.50-10.00) X 10*3/uL RBC (3.80-5.40) m/uL Hgb (11.4-16.0) gm/dL Hct (34.0-46.0) % MCV (80.0-100.0) fL MCHC (31.0-37.0) g/dL RDW (11.5-15.5) % Plt Count (150-450) k/uL Lymphocytes # (1.0-4.8) k/uL Sodium (137-145) mmol/L Potassium (3.5-5.5) mmol/L Chloride (98-107) mmol/L Carbon Dioxide (22-30) mmol/L BUN (7-17) mg/dL Creatinine (0.52-1.04) mg/dL Est GFR (CKD-EPI) (>=60) Glucose (74-99) mg/dL POC Glucose (mg/dL) 265 H (70-110) mg/dL Assessment and Plan Assessment: 1. Acute exacerbation diastolic CHF -Echocardiogram reveals EF of 60 to 65% -Patient has been placed on Lasix 40 mg IV every 8 hours -Monitor strict ALICIA's, daily weight, low-salt and fluid restricted diet Cardiology on board; appreciate recommendations 2. Acute renal injury; we will monitor strict ALICIA's, daily weights, renal function electrolytes; avoid nephrotoxins and hypotension; hold off on IV fluid hydration given acute CHF 3. Paroxysmal atrial fibrillation; patient is anticoagulated with Eliquis 5 mg twice daily 4. Hypertension; metoprolol 50 mg twice daily 5. Hyperlipidemia; Lipitor 40 mg p.o. nightly 6. Diabetes mellitus type 2; Lantus 20 units SQ nightly; continue home dose of Humalog 40 units SQ before every meal; Farxiga 10 mg daily 7. Chronic anemia; patient is status post EGD and colonoscopy in the past which was negative for any acute abnormality 8. Hypothyroidism; levothyroxine 175 mcg daily DVT prophylaxis; SCDs/Eliquis CODE STATUS; full code
--- NOTE | 2025-01-31 14:50 | P.PN ---
Subjective Progress Note Date: 01/31/25 80-year-old female present to the emergency department with concern for edema. Patient was in the hospital few months ago with similar symptoms. Patient has gained approximately 30 to 40 pounds in the past 2 months. Patient now has exertional dyspnea and is only able to walk around 6 feet. No chest pain. No fever. Blood work completed in ED reveals WBC of 5.1, hemoglobin of 8.7 and platelet count of 124, sodium 136, potassium 3.6, BUNs/creatinine of 27/1.13 and blood glucose of 202, AST mildly elevated at 38 with BNP of 3830, troponin less than 0.012 EKG: Paced rhythm with a rate of 60. Indeterminate axis. Appearance of Q waves V1 through V3.), sinus rhythm, normal ST/T Chest x-ray reveals cardiomegaly, pulmonary vascular congestion and bilateral pleural effusion 01/31/2025 Patient is seen and evaluated with family at bedside; reports some improvement in breathing; continues to diurese well; weight down by almost 5 kg in last 24 hours Vital signs are reviewed and remained stable Lab review shows WBC of 5.5, hemoglobin of 8.2 and platelet count of 134, sodium 141, potassium 3.6, BUNs/creatinine of 20.9/1.3 -Patient remains on Lasix 40 mg IV every 8 hours; continues to diurese well -Cardiology on board and recommending to continue with IV diuresis for another 24 hours Objective - Vital Signs Vital signs: Vital Signs Temp 98.8 F 01/31/25 07:00 Pulse 58 L 01/31/25 07:00 Resp 15 01/31/25 07:00 BP 114/68 01/31/25 07:00 Pulse Ox 98 01/31/25 08:09 FiO2 Intake & Output 01/30/25 01/31/25 01/31/25 18:59 06:59 18:59 Intake Total 236 Output Total 910 Balance -910 236 Weight 135 kg 130 kg Intake: Oral 236 Output: Urine 910 Other: Voiding Method External Catheter External Catheter External Catheter - Exam General appearance: alert, in no apparent distress Head exam: Present: normocephalic Eye exam: Present: normal appearance Neck exam: Present: normal inspection Respiratory exam: Present: normal lung sounds bilaterally Cardiovascular Exam: Present: regular rate, normal rhythm GI/Abdominal exam: Present: soft. Absent: tenderness Extremities exam: Present: pedal edema (Extending to upper legs and abdomen). Absent: calf tenderness Neurological exam: Present: alert Psychiatric exam: Present: normal affect, normal mood Skin exam: Present: normal color - Labs CBC & Chem 7: 01/31/25 04:09 01/31/25 04:09 Labs: Abnormal Lab Results - Last 24 Hours (Table) 01/30/25 01/30/25 01/30/25 Range/Units 12:13 17:10 19:23 RBC (4.10-5.20) X 10*6/uL Hgb (12.0-15.0) g/dL Hct (37.2-46.3) % MCV (80.0-97.0) FL MCHC (32.0-37.0) g/dL RDW (11.5-14.5) % Plt Count (140-440) X 10*3/uL Lymphocytes # (0.90-5.00) X 10*3/uL Chloride (96-109) mmol/L Carbon Dioxide (21.6-31.8) mmol/L Est GFR (CKD-EPI) (>=60) POC Glucose (mg/dL) 199 H 125 H 120 H (70-110) mg/dL 01/31/25 01/31/25 01/31/25 Range/Units 04:09 04:09 06:01 RBC 2.66 L (4.10-5.20) X 10*6/uL Hgb 8.2 L (12.0-15.0) g/dL Hct 26.8 L (37.2-46.3) % MCV 100.8 H (80.0-97.0) FL MCHC 30.6 L (32.0-37.0) g/dL RDW 17.9 H (11.5-14.5) % Plt Count 134 L (140-440) X 10*3/uL Lymphocytes # 0.68 L (0.90-5.00) X 10*3/uL Chloride 95 L (96-109) mmol/L Carbon Dioxide 34.5 H (21.6-31.8) mmol/L Est GFR (CKD-EPI) 42 L (>=60) POC Glucose (mg/dL) 119 H (70-110) mg/dL Assessment and Plan Assessment: 1. Acute exacerbation diastolic CHF -Echocardiogram reveals EF of 60 to 65% -Patient has been placed on Lasix 40 mg IV every 8 hours -Monitor strict ALICIA's, daily weight, low-salt and fluid restricted diet Cardiology on board; appreciate recommendations 2. Acute renal injury; we will monitor strict ALICIA's, daily weights, renal function electrolytes; avoid nephrotoxins and hypotension; hold off on IV fluid hydration given acute CHF 3. Paroxysmal atrial fibrillation; patient is anticoagulated with Eliquis 5 mg twice daily 4. Hypertension; metoprolol 50 mg twice daily 5. Hyperlipidemia; Lipitor 40 mg p.o. nightly 6. Diabetes mellitus type 2; Lantus 20 units SQ nightly; continue home dose of Humalog 40 units SQ before every meal; Farxiga 10 mg daily 7. Chronic anemia; patient is status post EGD and colonoscopy in the past which was negative for any acute abnormality 8. Hypothyroidism; levothyroxine 175 mcg daily DVT prophylaxis; SCDs/Eliquis CODE STATUS; full code
[2025-01-31 18:10] LABS: Glucose,Whole Blood 128 mg/dL (70-110)
[2025-01-31 20:34] LABS: Glucose,Whole Blood 95 mg/dL (70-110)
[2025-02-01 05:50] LABS: Glucose,Whole Blood 101 mg/dL (70-110)
[2025-02-01 09:20] LABS: Basophils # (A) 0.03 X 10*3/uL (0.00-0.10); Basophils % (A) 0.6 %; Eosinophils # (A) 0.18 X 10*3/uL (0.04-0.35); Eosinophils % (A) 3.5 %; HCT 25.6 % (37.2-46.3); HGB 7.8 g/dL (12.0-15.0); Lymphocytes # (A) 0.54 X 10*3/uL (0.90-5.00); Lymphocytes % (A) 10.5 %; MCHC 30.5 g/dL (32.0-37.0); MCV 101.6 FL (80.0-97.0); Mean Platelet Volume 10.3 FL (9.5-12.2); Monocytes # (A) 0.49 X 10*3/uL (0.20-1.00); Monocytes % (A) 9.6 %; NRBC Per 100 WBC 0 X 10*3/uL (0.00-0.01); Neutrophils # (A) 3.86 X 10*3/uL (1.80-7.70); Neutrophils % (A) 75.4 %; Platelet Count 122 X 10*3/uL (140-440); RBC 2.52 X 10*6/uL (4.10-5.20); RDW 17.7 % (11.5-14.5); WBC 5.12 X 10*3/uL (4.50-10.00)
[2025-02-01 09:28] LABS: BUN/Creat Ratio 17.38 Ratio (12.00-20.00); Blood Urea Nitrogen 22.6 mg/dL (9.0-27.0); Calcium 9.2 mg/dL (8.7-10.3); Carbon Dioxide 35.4 mmol/L (21.6-31.8); Chloride 95 mmol/L (96-109); Glucose 94 mg/dL (70-110); Potassium 3.2 mmol/L (3.5-5.5); Sodium 142 mmol/L (135-145)
[2025-02-01] MEDS: metOLazone 2.5 MG TAB PO SCH (10:07)
--- NOTE | 2025-02-01 10:36 | P.PN ---
Subjective Progress Note Date: 02/01/25 HISTORY OF PRESENT ILLNESS: This is a 80-year-old female patient of Dr. Watson with past medical history of aortic valve replacement and mitral valve replacement and tricuspid valve repair at [facility] in May 2024, coronary artery disease, dual-chamber pacemaker, paroxysmal atrial fibrillation, hyperlipidemia, diabetes mellitus type 2, hypertension. We have been asked to evaluate the patient for CHF. Patient presented to the emergency center due to increase in edema to the lower extremities, shortness of breath and weight gain. Patient also complains of dyspnea on exertion and able to only walk a few feet at a time. Patient had a hospitalization in October 2024 at which time she presented with hemoglobin of 5.5. EGD EGD and colonoscopy did not show source of bleeding. At some point, patient was resumed back on Eliquis and has been taking it as ordered. Blood pressure 122/65, heart rate 64, pulse ox 100% on CPAP. Patient is seen today in the emergency center waiting for a bed on the cardiac stepdown unit. Patient has been started on IV Lasix 40 mg every 8 hours. -EKG: Atrial paced rhythm 60 bpm -Chest x-ray: Cardiomegaly, pulmonary vascular congestion and bilateral pleural effusions. -Laboratory studies: WBC 5.3, hemoglobin 8.8, platelet count 125. Sodium 135, CO2 35, BUN 25 creatinine 1.05. Troponin negative x 1. proBNP 3830. -Home cardiac medications: Eliquis 5 mg twice daily, Lasix 20 mg twice daily, metoprolol succinate 50 mg twice daily. -Echocardiogram reveals EF of 60 to 65%. Technically difficult study with poor acoustic window. Severe pulmonary hypertension with RVSP 56 mmHg. Status post mitral valve replacement, mild mitral stenosis. Aortic valve replacement. -Cardiovascular surgery 05/20/2024: Tissue AVR, tissue MVR, TV repair -Previous CV surgery 11/06/2018: TAVR. -Cardiac catheterization 2020 with stent placed in the mid D1, stent in the ostial PDA. 01/30/2025 Patient examined this morning at the bedside. Patient currently denies chest pain or pressure. She states she is not feeling very well this morning. She continues to report shortness of breath. Patient is currently on IV Lasix 40 mg every 8 hours. BUN 21. Creatinine 1.2. Urine output over the last 24 hours is 1500 cc. 01/31/2025 Patient examined this morning at bedside. Patient denies chest pain or pressure. She does report shortness of breath although improving. She continues to have significant edema although slowly improving. She remains on IV Lasix. Creatinine today 1.3. Patient's weight is down approximately 5 kg from yesterday. 02/01 Patient seen and examined. Patient is currently maintained on IV Lasix 40 mg every 8 hours. Patient has a negative fluid balance and weights do not appear to be accurate. Patient states the lower extremity edema is improved but she continues to have quite a bit. Repeat blood work reveals hemoglobin 7.8, platelet count 122, sodium 142, potassium 3.2, BUN 22 creatinine 1.3. Echocardiogram reveals EF of 40 to 45%, severe pulmonary hypertension. Difficult to comment on valves. PHYSICAL EXAM: VITAL SIGNS: Reviewed. GENERAL: Well-developed in no acute distress. NECK: Supple. No JVD or thyromegaly LUNGS: Respirations even and unlabored. Lungs essentially clear to auscultation bilaterally, diminished. HEART: Regular rate and rhythm. S1 and S2 heard. EXTREMITIES: No clubbing or cyanosis. Peripheral pulses intact. Bilateral lower extremity edema noted. ASSESSMENT: Acute on chronic diastolic heart failure History of aortic valve replacement, mitral valve replacement, tricuspid valve repair May 2024 at [facility] Coronary artery disease with prior stenting Dual-chamber pacemaker, [employer], November 2017 Paroxysmal atrial fibrillation on Eliquis Hyperlipidemia Diabetes mellitus type 2 Hypertension Moderate to severe pulmonary hypertension Thrombocytopenia Chronic anemia with previous workup for GI bleed, both EGD and colonoscopy negative for source Morbid obesity with BMI of 51 PLAN: Continue current cardiac medications including Eliquis and metoprolol Farxiga and atorvastatin added Continue IV Lasix 40 mg every 8 hours for another 24 hours Daily weights, accurate intake and output, and monitoring of kidney function Further recommendations pending patient course Nurse practitioner note has been reviewed by physician. Signing provider agrees with the documented findings, assessment, and plan of care documented by [facility] [employer] as a scribe. Objective - Vital Signs Vital signs: Vital Signs Temp 98.4 F 02/01/25 07:37 Pulse 60 02/01/25 07:37 Resp 16 02/01/25 07:37 BP 105/56 02/01/25 07:37 Pulse Ox 99 02/01/25 07:37 FiO2 Intake & Output 03/02/01/25 02/01/25 18:59 06:59 18:59 Intake Total 472 Output Total 1200 700 Balance -728 -700 Weight 131 kg Intake: Oral 472 Output: Urine 1200 700 Other: Voiding Method External Catheter External Catheter # Voids 1 # Bowel Movements 1 - Labs CBC & Chem 7: 02/01/25 04:31 02/01/25 04:31 Labs: Abnormal Lab Results - Last 24 Hours (Table) 01/31/25 01/31/25 01/31/25 Range/Units 04:09 04:09 11:54 RBC 2.66 L (4.10-5.20) X 10*6/uL Hgb 8.2 L (12.0-15.0) g/dL Hct 26.8 L (37.2-46.3) % MCV 100.8 H (80.0-97.0) FL MCHC 30.6 L (32.0-37.0) g/dL RDW 17.9 H (11.5-14.5) % Plt Count 134 L (140-440) X 10*3/uL Lymphocytes # 0.68 L (0.90-5.00) X 10*3/uL Chloride 95 L (96-109) mmol/L Carbon Dioxide 34.5 H (21.6-31.8) mmol/L Est GFR (CKD-EPI) 42 L (>=60) POC Glucose (mg/dL) 139 H (70-110) mg/dL 01/31/25 Range/Units 18:09 RBC (4.10-5.20) X 10*6/uL Hgb (12.0-15.0) g/dL Hct (37.2-46.3) % MCV (80.0-97.0) FL MCHC (32.0-37.0) g/dL RDW (11.5-14.5) % Plt Count (140-440) X 10*3/uL Lymphocytes # (0.90-5.00) X 10*3/uL Chloride (96-109) mmol/L Carbon Dioxide (21.6-31.8) mmol/L Est GFR (CKD-EPI) (>=60) POC Glucose (mg/dL) 128 H (70-110) mg/dL
[2025-02-01 11:59] LABS: Glucose,Whole Blood 139 mg/dL (70-110)
[2025-02-01] MEDS ORDERED: Potassium Replacement Protocol 1 EACH MISC MISCELLANE PRN (13:40)
[2025-02-01] MEDS: POTASSIUM CHLORIDE ER 20 MEQ TAB.ER PO SCH (13:59)
[2025-02-01 17:25] LABS: Glucose,Whole Blood 171 mg/dL (70-110)
--- NOTE | 2025-02-01 18:27 | P.PN ---
Subjective 80-year-old female present to the emergency department with concern for edema. Patient was in the hospital few months ago with similar symptoms. Patient has gained approximately 30 to 40 pounds in the past 2 months. Patient now has exertional dyspnea and is only able to walk around 6 feet. No chest pain. No fever. Blood work completed in ED reveals WBC of 5.1, hemoglobin of 8.7 and platelet count of 124, sodium 136, potassium 3.6, BUNs/creatinine of 27/1.13 and blood glucose of 202, AST mildly elevated at 38 with BNP of 3830, troponin less than 0.012 EKG: Paced rhythm with a rate of 60. Indeterminate axis. Appearance of Q waves V1 through V3.), sinus rhythm, normal ST/T Chest x-ray reveals cardiomegaly, pulmonary vascular congestion and bilateral pleural effusion 01/31/2025 Patient is seen and evaluated with family at bedside; reports some improvement in breathing; continues to diurese well; weight down by almost 5 kg in last 24 hours Vital signs are reviewed and remained stable Lab review shows WBC of 5.5, hemoglobin of 8.2 and platelet count of 134, sodium 141, potassium 3.6, BUNs/creatinine of 20.9/1.3 -Patient remains on Lasix 40 mg IV every 8 hours; continues to diurese well -Cardiology on board and recommending to continue with IV diuresis for another 24 hours 02/01 Patient still has extensive fluid overload with 3+ bilateral pitting leg edema. Patient sitting in chair with moving difficulty No much exertional dyspnea, she is currently on 5 L oxygen via nasal cannula mildly thickened Patient is obese and have distant heart sounds She remains on IV Lasix 40 mg 3 times a day and metolazone added Replace low potassium Further recommendation based on clinical response Check labs tomorrow Review of system: No chest pain, no specific GI/ symptom. No headache dizziness weakness numbness Active Medications Generic Name Dose Route Start Last Admin Trade Name Freq PRN Reason Stop Dose Admin Acetaminophen 650 mg 01/28/25 21:48 01/28/25 22:54 Acetaminophen Tab 325 Mg Tab PO 650 mg Q6HR PRN Administration Fever and/ or Pain Apixaban 5 mg 01/29/25 09:00 02/01/25 08:29 Apixaban 5 Mg Tab PO 5 mg BID LILIYA Administration Protocol Atorvastatin Calcium 40 mg 01/30/25 21:00 01/31/25 21:48 Atorvastatin 40 Mg Tab PO 40 mg HS LILIYA Administration Calcium Carbonate/Glycine 500 mg 01/29/25 09:00 02/01/25 08:29 Calcium Carbonate 500 Mg Chewable PO 500 mg BID LILIYA Administration Dapagliflozin 10 mg 01/30/25 09:00 02/01/25 08:29 Dapagliflozin Propanediol 10 Mg Tablet PO 10 mg DAILY LILIYA Administration Ferrous Sulfate 325 mg 01/29/25 12:30 02/01/25 13:00 Ferrous Sulfate 325 Mg Tab PO 325 mg W/LUNCH LILIYA Administration Fluoxetine HCl 10 mg 01/29/25 09:00 02/01/25 08:29 Fluoxetine Hcl 10 Mg Cap PO 10 mg DAILY LILIYA Administration Furosemide 40 mg 01/28/25 22:00 02/01/25 13:59 Furosemide 10 Mg/Ml 4 Ml Vial IV 40 mg Q8H LILIYA Administration Insulin Glargine 20 unit 01/28/25 22:00 01/31/25 21:48 Insulin Glargine (Lantus) 100 Unit/Ml Syr SQ 20 unit HS LILIYA Administration Insulin Human Lispro 40 unit 01/28/25 21:49 02/01/25 18:02 Insulin Lispro (Humalog) 100 Unit/Ml 10 Ml Vl SQ 20 unit TID-W/MEALS LILIYA Administration Levothyroxine Sodium 176 mcg 01/29/25 06:30 02/01/25 05:51 Levothyroxine 88 Mcg Tab PO 176 mcg DAILY@0630 LILIYA Administration Metolazone 2.5 mg 02/01/25 09:15 02/01/25 10:07 Metolazone 2.5 Mg Tab PO 2.5 mg DAILY LILIYA Administration Metoprolol Succinate 50 mg 01/29/25 09:00 02/01/25 08:29 Metoprolol Succinate (Er) 50 Mg Tab.Er.24h PO 50 mg BID LILIYA Administration Miscellaneous Information 1 each 02/01/25 13:40 Potassium Replacement Protocol 1 Each Misc MISCELLANE DAILY PRN Per Protocol Protocol Objective - Vital Signs Vital signs: Vital Signs Temp 98.7 F 02/01/25 14:00 Pulse 62 02/01/25 14:00 Resp 16 02/01/25 14:00 BP 112/66 02/01/25 14:00 Pulse Ox 100 02/01/25 14:00 FiO2 Intake & Output 01/31/25 02/01/25 02/01/25 18:59 06:59 18:59 Intake Total 472 236 Output Total 1200 700 250 Balance -728 -700 -14 Weight 131 kg Intake: Oral 472 236 Output: Urine 1200 700 250 Other: Voiding Method External Catheter External Catheter External Catheter # Voids 1 4 # Bowel Movements 1 - Exam GENERAL: The patient is alert and oriented x3, not in any acute distress. Well developed, well nourished. HEENT: Pupils are round and equally reacting to light. EOMI. No scleral icterus. No conjunctival pallor. Normocephalic, atraumatic. No pharyngeal erythema. No thyromegaly. CARDIOVASCULAR: S1 and S2 present. No murmurs, rubs, or gallops. PULMONARY: Chest is clear to auscultation, no wheezing , no crackles. ABDOMEN: Soft, nontender, nondistended, normoactive bowel sounds. No palpable organomegaly. MUSCULOSKELETAL: No joint swelling or deformity. -EXTREMITIES: No cyanosis, clubbing,. 3+ bilateral pitting leg edema. NEUROLOGICAL: Gross neurological examination did not reveal any focal deficits. SKIN: No rashes. no petechiae. - Labs CBC & Chem 7: 02/01/25 04:31 02/01/25 04:31 Labs: Abnormal Lab Results - Last 24 Hours (Table) 02/01/25 02/01/25 02/01/25 Range/Units 04:31 04:31 11:58 RBC 2.52 L (4.10-5.20) X 10*6/uL Hgb 7.8 L (12.0-15.0) g/dL Hct 25.6 L (37.2-46.3) % MCV 101.6 H (80.0-97.0) FL MCHC 30.5 L (32.0-37.0) g/dL RDW 17.7 H (11.5-14.5) % Plt Count 122 L (140-440) X 10*3/uL Lymphocytes # 0.54 L (0.90-5.00) X 10*3/uL Potassium 3.2 L (3.5-5.5) mmol/L Chloride 95 L (96-109) mmol/L Carbon Dioxide 35.4 H (21.6-31.8) mmol/L Est GFR (CKD-EPI) 42 L (>=60) POC Glucose (mg/dL) 139 H (70-110) mg/dL 02/01/25 Range/Units 17:24 RBC (4.10-5.20) X 10*6/uL Hgb (12.0-15.0) g/dL Hct (37.2-46.3) % MCV (80.0-97.0) FL MCHC (32.0-37.0) g/dL RDW (11.5-14.5) % Plt Count (140-440) X 10*3/uL Lymphocytes # (0.90-5.00) X 10*3/uL Potassium (3.5-5.5) mmol/L Chloride (96-109) mmol/L Carbon Dioxide (21.6-31.8) mmol/L Est GFR (CKD-EPI) (>=60) POC Glucose (mg/dL) 171 H (70-110) mg/dL Assessment and Plan Assessment: 1. Acute exacerbation diastolic CHF -Echocardiogram reveals EF of 60 to 65% -Patient has been placed on Lasix 40 mg IV every 8 hours, metolazone is added -Monitor strict ALICIA's, daily weight, low-salt and fluid restricted diet Cardiology on board; appreciate recommendations 2. Acute renal injury; we will monitor strict ALICIA's, daily weights, renal function electrolytes; avoid nephrotoxins and hypotension; hold off on IV fluid hydration given acute CHF 3. Paroxysmal atrial fibrillation; patient is anticoagulated with Eliquis 5 mg twice daily 4. Hypertension; metoprolol 50 mg twice daily 5. Hyperlipidemia; Lipitor 40 mg p.o. nightly 6. Diabetes mellitus type 2; Lantus 20 units SQ nightly; continue home dose of Humalog 40 units SQ before every meal; Farxiga 10 mg daily 7. Chronic anemia; patient is status post EGD and colonoscopy in the past which was negative for any acute abnormality 8. Hypothyroidism; levothyroxine 175 mcg daily DVT prophylaxis; SCDs/Eliquis CODE STATUS; full code
[2025-02-01 20:43] LABS: Glucose,Whole Blood 167 mg/dL (70-110)
[2025-02-01] MEDS: POTASSIUM CHLORIDE ER 20 MEQ TAB.ER PO STA (22:34)
[2025-02-02 06:35] LABS: Glucose,Whole Blood 89 mg/dL (70-110)
[2025-02-02 09:05] LABS: BUN/Creat Ratio 21.25 Ratio (12.00-20.00); Blood Urea Nitrogen 25.5 mg/dL (9.0-27.0); Calcium 9.4 mg/dL (8.7-10.3); Carbon Dioxide 37.8 mmol/L (21.6-31.8); Chloride 94 mmol/L (96-109); Glucose 95 mg/dL (70-110); Potassium 3.6 mmol/L (3.5-5.5); Sodium 141 mmol/L (135-145)
--- NOTE | 2025-02-02 11:48 | XR ---
EXAMINATION TYPE: XR chest 1V portable DATE OF EXAM: 02/02/2025 11:43 AM COMPARISON: 01/30/2025 CLINICAL INDICATION: Female, 80 years old with history of shortness of breath, TECHNIQUE: XR chest 1V portable views of the chest are obtained. FINDINGS: Demonstrated are scattered senescent parenchymal change. There is no evidence for focal infiltrate. Pulmonary venous congestion with small effusions and cardiomegaly suggest underlying congestive failu re. Correlate for BNP Hilar and mediastinal structures are within normal limits. Degenerative changes are seen of the dorsal spine. IMPRESSION: 1. Pulmonary venous congestion with small effusions and cardiomegaly suggest underlying congestive f ailure. Correlate for BNP [facility], , 02/02/2025 11:46 AM
[2025-02-02 12:26] LABS: Anisocytosis Slight; Basophils % (A) 1 %; Eosinophils # (A) 0.2 k/uL (0-0.7); Eosinophils % (A) 3 %; HCT 32.6 % (34.0-46.0); HGB 9.4 gm/dL (11.4-16.0); Hypochromasia Marked; Lymphocytes # (A) 0.5 k/uL (1.0-4.8); Lymphocytes % (A) 9 %; MCH 29.8 pg (25.0-35.0); MCHC 28.9 g/dL (31.0-37.0); MCV 103.2 fL (80.0-100.0); Macrocytosis Moderate; Mean Platelet Volume 8.1; Monocytes # (A) 0.3 k/uL (0-1.0); Monocytes % (A) 6 %; Neutrophils # (A) 4.3 k/uL (1.3-7.7); Neutrophils % (A) 81 %; Platelet Count 138 k/uL (150-450); RBC 3.16 m/uL (3.80-5.40); RDW 17.1 % (11.5-15.5); WBC 5.3 k/uL (3.8-10.6)
[2025-02-02 12:34] LABS: Glucose,Whole Blood 188 mg/dL (70-110)
--- NOTE | 2025-02-02 13:43 | P.PN ---
Subjective Progress Note Date: 02/02/25 HISTORY OF PRESENT ILLNESS: This is a 80-year-old female patient of Dr. Watson with past medical history of aortic valve replacement and mitral valve replacement and tricuspid valve repair at [facility] in May 2024, coronary artery disease, dual-chamber pacemaker, paroxysmal atrial fibrillation, hyperlipidemia, diabetes mellitus type 2, hypertension. We have been asked to evaluate the patient for CHF. Patient presented to the emergency center due to increase in edema to the lower extremities, shortness of breath and weight gain. Patient also complains of dyspnea on exertion and able to only walk a few feet at a time. Patient had a hospitalization in October 2024 at which time she presented with hemoglobin of 5.5. EGD EGD and colonoscopy did not show source of bleeding. At some point, patient was resumed back on Eliquis and has been taking it as ordered. Blood pressure 122/65, heart rate 64, pulse ox 100% on CPAP. Patient is seen today in the emergency center waiting for a bed on the cardiac stepdown unit. Patient has been started on IV Lasix 40 mg every 8 hours. -EKG: Atrial paced rhythm 60 bpm -Chest x-ray: Cardiomegaly, pulmonary vascular congestion and bilateral pleural effusions. -Laboratory studies: WBC 5.3, hemoglobin 8.8, platelet count 125. Sodium 135, CO2 35, BUN 25 creatinine 1.05. Troponin negative x 1. proBNP 3830. -Home cardiac medications: Eliquis 5 mg twice daily, Lasix 20 mg twice daily, metoprolol succinate 50 mg twice daily. -Echocardiogram reveals EF of 60 to 65%. Technically difficult study with poor acoustic window. Severe pulmonary hypertension with RVSP 56 mmHg. Status post mitral valve replacement, mild mitral stenosis. Aortic valve replacement. -Cardiovascular surgery 05/20/2024: Tissue AVR, tissue MVR, TV repair -Previous CV surgery 11/06/2018: TAVR. -Cardiac catheterization 2020 with stent placed in the mid D1, stent in the ostial PDA. 01/30/2025 Patient examined this morning at the bedside. Patient currently denies chest pain or pressure. She states she is not feeling very well this morning. She continues to report shortness of breath. Patient is currently on IV Lasix 40 mg every 8 hours. BUN 21. Creatinine 1.2. Urine output over the last 24 hours is 1500 cc. 01/31/2025 Patient examined this morning at bedside. Patient denies chest pain or pressure. She does report shortness of breath although improving. She continues to have significant edema although slowly improving. She remains on IV Lasix. Creatinine today 1.3. Patient's weight is down approximately 5 kg from yesterday. 02/01 Patient seen and examined. Patient is currently maintained on IV Lasix 40 mg every 8 hours. Patient has a negative fluid balance and weights do not appear to be accurate. Patient states the lower extremity edema is improved but she continues to have quite a bit. Repeat blood work reveals hemoglobin 7.8, platelet count 122, sodium 142, potassium 3.2, BUN 22 creatinine 1.3. Echocardiogram reveals EF of 40 to 45%, severe pulmonary hypertension. Difficult to comment on valves. 02/02 Patient seen and examined. Patient has been continued on IV Lasix 40 mg every 8 hours. Zaroxolyn 2.5 mg daily was started yesterday. Lower extremity edema is improved. Blood pressure 116/67, heart rate 65, pulse ox 99% on CPAP. Patient has a negative fluid balance and questionable whether weights are accurate. Repeat blood work reveals hemoglobin 9.4, BUN 25 creatinine 1.2 and potassium 3.6. Repeat chest x-ray reveals pulmonary venous congestion with small effusions, cardiomegaly. PHYSICAL EXAM: VITAL SIGNS: Reviewed. GENERAL: Well-developed in no acute distress. NECK: Supple. No JVD or thyromegaly LUNGS: Respirations even and unlabored. Lungs essentially clear to auscultation bilaterally, diminished. HEART: Regular rate and rhythm. S1 and S2 heard. EXTREMITIES: No clubbing or cyanosis. Peripheral pulses intact. Bilateral lower extremity edema noted. ASSESSMENT: Acute on chronic diastolic heart failure History of aortic valve replacement, mitral valve replacement, tricuspid valve repair May 2024 at [facility] Coronary artery disease with prior stenting Dual-chamber pacemaker, [facility] [employer], November 2017 Paroxysmal atrial fibrillation on Eliquis Hyperlipidemia Diabetes mellitus type 2 Hypertension Moderate to severe pulmonary hypertension Thrombocytopenia Chronic anemia with previous workup for GI bleed, both EGD and colonoscopy negative for source Morbid obesity with BMI of 51 PLAN: Continue current cardiac medications including Eliquis and metoprolol Farxiga and atorvastatin added Continue IV Lasix 40 mg every 8 hours for another 24 hours Continue metolazone 2.5 mg daily Daily weights, accurate intake and output, and monitoring of kidney function Further recommendations pending patient course. Possible discharge home tomorrow. Nurse practitioner note has been reviewed by physician. Signing provider agrees with the documented findings, assessment, and plan of care documented by [employer] as a scribe. Objective - Vital Signs Vital signs: Vital Signs Temp 97.7 F 02/02/25 04:31 Pulse 61 02/02/25 04:31 Resp 18 02/02/25 04:31 BP 104/57 02/02/25 04:31 Pulse Ox 95 02/02/25 04:31 FiO2 Intake & Output 02/01/25 02/02/25 02/02/25 18:59 06:59 18:59 Intake Total 236 Output Total 250 Balance -14 Weight 106 kg Intake: Oral 236 Output: Urine 250 Other: Voiding Method External Catheter Bedside Commode # Voids 4 - Labs CBC & Chem 7: 02/02/25 11:48 02/02/25 03:48 Labs: Abnormal Lab Results - Last 24 Hours (Table) 02/01/25 02/01/25 02/01/25 Range/Units 04:31 04:31 11:58 RBC 2.52 L (4.10-5.20) X 10*6/uL Hgb 7.8 L (12.0-15.0) g/dL Hct 25.6 L (37.2-46.3) % MCV 101.6 H (80.0-97.0) FL MCHC 30.5 L (32.0-37.0) g/dL RDW 17.7 H (11.5-14.5) % Plt Count 122 L (140-440) X 10*3/uL Lymphocytes # 0.54 L (0.90-5.00) X 10*3/uL Potassium 3.2 L (3.5-5.5) mmol/L Chloride 95 L (96-109) mmol/L Carbon Dioxide 35.4 H (21.6-31.8) mmol/L Est GFR (CKD-EPI) 42 L (>=60) POC Glucose (mg/dL) 139 H (70-110) mg/dL 02/01/25 02/01/25 Range/Units 17:24 20:42 RBC (4.10-5.20) X 10*6/uL Hgb (12.0-15.0) g/dL Hct (37.2-46.3) % MCV (80.0-97.0) FL MCHC (32.0-37.0) g/dL RDW (11.5-14.5) % Plt Count (140-440) X 10*3/uL Lymphocytes # (0.90-5.00) X 10*3/uL Potassium (3.5-5.5) mmol/L Chloride (96-109) mmol/L Carbon Dioxide (21.6-31.8) mmol/L Est GFR (CKD-EPI) (>=60) POC Glucose (mg/dL) 171 H 167 H (70-110) mg/dL
--- NOTE | 2025-02-02 16:17 | US ---
EXAMINATION TYPE: US chest DATE OF EXAM: 02/02/2025 COMPARISON: NONE CLINICAL INDICATION: Female, 80 years old with history of left pleural effusion; TECHNIQUE: Grayscale imaging of the chest. Targeted ultrasound of the posterior lower left hemithora x FINDINGS: EXAM MEASUREMENTS: Left Pleural Effusion pocket size: 8.4 cm Left skin surface to fluid distance: 3.7 cm Left side marked for possible thoracentesis outside the dept. Pulmonologists are able to review the images in the patient?s EMR. IMPRESSIONS: As above [facility], , 02/02/2025 4:15 PM
[2025-02-02] MEDS: IOPAMIDOL CONTRAST (ORAL USE) VIAL PO PRN (16:22)
[2025-02-02 17:18] LABS: Glucose,Whole Blood 190 mg/dL (70-110)
--- NOTE | 2025-02-02 20:10 | CT ---
EXAMINATION TYPE: CT ChestAbdPelvis wo con DATE OF EXAM: 02/02/2025 6:04 PM COMPARISON: None. CLINICAL INDICATION: Female, 80 years old with history of left pleural effusion; PHH, Left pleural ef fusion. Technique: CT ChestAbdPelvis wo con; Multiple axial images were obtained. Two-dimensional coronal and sagittal reconstructions were obtained. Oral contrast used: with Oral Contrast CT DLP: 1936.8 mGycm, Automated exposure control for dose reduction was used. Findings: CHEST: Examination is degraded by breathing motion artifact. Cardiomegaly without significant pericardial effusion. Severe mitral annular calcifications. Median s ternotomy wires and postsurgical changes suggestive of previous CABG. Partially visualized. Pacemaker leads terminating in the right atrium and right ventricle. Mildly prominent mediastinal lymph nodes with largest right lower paratracheal node measuring 12 mm in short axis. Limited evaluation for emil r lymphadenopathy given lack of IV contrast. No pathologic axillary lymphadenopathy. Small bilateral pleural effusions with adjacent compressive atelectasis. Mild interlobular septal thi ckening. No pneumothorax. Thoracic spine degenerative changes. ABDOMEN: Evaluation of the abdomen is limited by involuntary patient motion artifact. Cirrhotic liver morphology. Gallbladder not well visualized. Spleen appears normal in size and morpho logy. No suspicious adrenal gland nodule. Pancreas very limited evaluation given artifact. Next Small volume diffuse abdominal ascites. Moderate diffuse body wall edema/anasarca. Kidneys without ev idence of hydronephrosis No evidence of bowel obstruction. Colonic diverticulosis without acute diverticulitis. No contrast ex travasation. No evidence of free air/pneumoperitoneum in the abdomen or pelvis. Limited evaluation of the pelvis given extensive streak artifact right hip arthroplasty device. Multilevel lumbosacral spi ne degenerative changes. Calcified apical sclerotic disease of the abdominal aorta without aneurysmal dilatation. IMPRESSION: 1. Cardiomegaly, [id number] bilateral pleural effusions and interlobular septal thickening [place] ggestive pulmonary edema. 2. Diffuse small volume abdominopelvic ascites and moderate diffuse body wall edema/anasarca. 3. Cirrhotic liver morphology. 4. Colonic diverticulosis. 5. Additional nonacute findings as above. [facility], Workstation: [id number], 02/02/2025 8:08 PM
[2025-02-02 20:45] LABS: Glucose,Whole Blood 155 mg/dL (70-110)
--- NOTE | 2025-02-02 22:28 | PN ---
PROGRESS NOTE DATE OF SERVICE: 02/02/2025 SUBJECTIVE: This is a 80-year-old woman, who was admitted with CHF with acute exacerbation, also had renal injury. The patient has been closely monitored at this time. The most recent chest x-ray which I reviewed today showed significant pleural effusion on the left. PAST MEDICAL HISTORY: Reviewed. REVIEW OF SYSTEMS: A 14-point review of systems is negative except as mentioned earlier. CURRENT MEDICATIONS: Reviewed. PHYSICAL EXAMINATION: VITAL SIGNS: Pulse is 63, blood pressure 120/63, respirations 16. CHEST: A few scattered rhonchi and crackles. ABDOMEN: Soft. NERVOUS SYSTEM: Nonfocal. LABORATORY DATA: Creatinine is normal. Hemoglobin 9.4. ASSESSMENT: 1. Congestive heart failure with acute exacerbation with acute on chronic diastolic dysfunction with ejection fraction of 60% to 65%. 2. Left pleural effusion. 3. Acute renal injury. 4. Paroxysmal atrial fibrillation. 5. Hypertension. 6. Diabetes mellitus type 2. 7. Multiple medical issues. RECOMMENDATIONS AND DISCUSSION: I recommended to continue current management, continue symptomatic treatment. Continue diuretic. We also recommended CT scan of the chest. The patient had left pleural effusion about 10.5 cm in October. Recommended pulmonary consultation and also cytology was negative during that time. We will continue to monitor. Prognosis is guarded. MMODL / IJN: [id number] /
--- NOTE | 2025-02-03 03:53 | P.CNPUL ---
History of Present Illness Consult date: 02/03/25 Requesting physician: Maye Hager Reason for consult: pleural effusion (Left) Chief complaint: Difficulty in breathing History of present illness: Patient is 80-year-old female with past medical history significant for valvular heart disease with previous extensive open heart procedure at [facility] done May,. Of note, recent prolonged hospitalization at our facility September through October,. During this time she underwent a left-sided thoracentesis with Dr. Peña, and a total of 850 cc was removed from the left pleural space. Fluid was a transudate based on lights criteria, consistent with heart failure. Pleural fluid cytology negative. She was eventually discharged on a combination of Lasix, Aldactone, and Zaroxolyn. Her senior product development engineer is Dr. Watson. She also has past medical history significant for coronary artery disease with previous PCI/stent, dual-chamber pacemaker, paroxysmal atrial fibrillation, diabetes mellitus, hypothyroidism, hypertension, hyperlipidemia, obstructive sleep apnea with home CPAP. Presented back to the emergency department back on 01/28/2025 with a chief complaint of increasing shortness of breath with associated lower extremity edema. Approximately 30 to 40 pound weight gain over the last couple months. Follow-up echocardiogram showing reduced ejection fraction of 40 to 45% with severe pulmonary hypertension. Prior surgical valve replacement/repairs seen but not well-appreciated. She has been receiving Lasix 40 mg 3 times daily. Most recent labs: CBC 5.3, hemoglobin 9.4, platelets 138. CMP: Sodium 141, potassium 3.6, chloride 94, serum bicarb 38, BUN 25.5, creatinine 1.2, glucose 155. Troponin less than 0.012 on admission. NT proBNP was elevated at 3830. Patient currently being seen on the cardiac observation unit. She is on 6 L/min nasal cannula. No particular respiratory distress. Head of the bed is elevated, states she feels short of breath when lying flat. Her home CPAP is at the bedside. She is fluid positive with gross anasarca and pitting edema of the lower extremities. CT of the chest , abdomen, and pelvis without contrast showing cardiomegaly, small to moderate- sized bilateral pleural effusions and interlobular septal thickening suggestive of pulmonary edema. Diffuse small volume abdominal pelvic ascites and moderate diffuse body wall edema/anasarca. Additional incidental findings. Patient currently on Lasix 40 mg 3 times daily. Ultrasound of the chest showing a left-sided 8.4 cm pocket and is marked for possible thoracentesis. Patient is anticoagulated on Eliquis. Vital signs are stable. Review of Systems Constitutional: Reports fatigue, Reports weakness (Generalized), Reports weight gain, Denies chills, Denies fever, Denies poor appetite, Denies weight loss Ears, nose, mouth and throat: Denies headache, Denies nasal congestion, Denies nasal discharge, Denies post-nasal drip, Denies sinus pain, Denies sinus pressure, Denies sore throat Cardiovascular: Reports decreased exercise tolerance, Reports dyspnea on exertion, Reports edema, Reports leg edema, Reports orthopnea, Reports shortness of breath, Denies chest pain, Denies lightheadedness, Denies palpitations, Denie s paroxysmal nocturnal dyspnea, Denies syncope Respiratory: Reports sleep apnea, Denies congestion, Denies cough, Denies hemoptysis, Denies home oxygen, Denies respiratory infections Gastrointestinal: Denies abdominal pain, Denies change in bowel habits, Denies diarrhea, Denies hematemesis, Denies hematochezia, Denies loss of appetite, Denies melena, Denies nausea, Denies vomiting Genitourinary: Denies dysuria Musculoskeletal: Denies limitation of motion Integumentary: Denies rash, Denies wounds Neurological: Denies seizures, Denies syncope Psychiatric: Denies anxiety, Denies depression Past Medical History Past Medical History: Atrial Fibrillation, Diabetes Mellitus, Hearing Disorder / Deafness, Hyperlipidemia, Osteoarthritis (OA), Pneumonia, Sleep Apnea/CPAP/BIPAP, Thyroid Disorder Additional Past Medical History / Comment(s): USES BIPAP, AORTIC VALVE REPLACEMENT , HX A-FIB WITH PNEUMONIA,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 HAD THYROID AND PARATHYROID REMOVAL. TOTAL LEFT KNEE REPLACEMENT, CATARACT RT EYE, CATARACT LEFT EYE SURGERY ,COLONOSCOPY, TVAR- 11/2018 , Aortic valve replacement 10/2018 Past Anesthesia/Blood Transfusion Reactions: No Reported Reaction Type of Cardiac Device: Permanent Pacemaker Device Placement Date:: PACEMAKER NOV 2017. Smoking Status: Never smoker - Past Family History Daughter(s) Family Medical History: Deep Vein Thrombosis (DVT) Sister(s) Family Medical History: Cancer Additional Family Medical History / Comment(s): BREAST CANCER Medications and Allergies Home Medications Medication Instructions Recorded Confirmed Type Levothyroxine Sodium [Levoxyl] 175 mcg PO DAILY 10/25/20 01/28/25 History FLUoxetine HCL [PROzac] 10 mg PO DAILY 10/08/24 01/28/25 History Insulin Aspart [NovoLOG Flexpen] 40 units SQ TID-W/MEALS 10/08/24 01/28/25 History Insulin Glargine,Hum.rec.anlog 20 units SQ HS 10/08/24 01/28/25 History [Lantus Solostar Pen] Metoprolol Succinate (ER) [Toprol 50 mg PO BID #60 tab 10/22/24 01/28/25 Rx XL] Apixaban [Eliquis] 5 mg PO BID #0 10/30/24 01/28/25 Rx Calcium Carbonate [Calcium] 600 mg PO BID 01/28/25 01/28/25 History Furosemide [Lasix] 20 mg PO BID 01/28/25 01/28/25 History Allergies Allergy/AdvReac Type Severity Reaction Status Date / Time nitrofurantoin Allergy Rash/Hives Verified 01/28/25 16:01 macrocrystalline [From Macrodantin] phenazopyridine HCl Allergy Rash/Hives Verified 01/28/25 16:01 [From Pyridium] Physical Exam Vitals: Vital Signs Temp Pulse Resp BP Pulse Ox 02/03/25 02:06 98.2 F 64 15 114/71 100 02/02/25 19:05 98.0 F 61 15 107/65 98 02/02/25 12:55 98.2 F 63 16 130/68 100 02/02/25 07:40 97.4 F L 65 18 116/67 99 02/02/25 04:31 97.7 F 61 18 104/57 95 Intake and Output 02/02/25 02/02/25 02/03/25 14:59 22:59 06:59 Intake Total 236 708 Output Total 650 Balance 236 58 Intake: Oral 236 708 Output: Urine 650 Other: Voiding Method Bedside Commode Bedside Commode # Voids 4 GENERAL EXAM: Alert, 80-year-old female, sitting up in bed, on 6 L/min nasal cannula, comfortable in no apparent distress. HEAD: Normocephalic and atraumatic EYES: Normal reaction of pupils, equal size. NOSE: Clear with pink turbinates. THROAT: No erythema or exudates. NECK: No masses, no JVD. CHEST: No chest wall deformity. LUNGS: Equal air entry with diminished bibasilar lung sounds and inspiratory crackles. No conversational dyspnea or accessory muscle use while at rest CVS: S1 and S2 normal with soft systolic murmur, regular rhythm. No other extra heart sounds ABDOMEN: No hepatosplenomegaly, active bowel sounds, no guarding or rigidity. Gross anasarca. SPINE: No scoliosis or deformity SKIN: No rashes CENTRAL NERVOUS SYSTEM: No focal deficits, tone is normal in all 4 extremities. EXTREMITIES: There is 2-3+ bilateral lower extremity edema. No clubbing, or cyanosis. Peripheral pulses are intact. Results - Laboratory Findings CBC and BMP: 02/02/25 11:48 02/02/25 03:48 PT/INR, D-dimer PT 12.1 sec (10.0-12.5) 01/28/25 13:36 INR 1.1 (<1.2) 01/28/25 13:36 Abnormal lab findings: Abnormal Labs 01/28/25 01/28/25 01/28/25 13:36 13:36 20:04 WBC RBC 2.81 L Hgb 8.8 L Hct 28.3 L MCV 100.6 H MCHC RDW 17.6 H Plt Count 125 L Lymphocytes # 0.4 L Sodium 135 L Potassium Chloride 94 L Carbon Dioxide 35 H BUN 25 H Creatinine 1.05 H Est GFR (CKD-EPI) BUN/Creatinine Ratio Glucose 202 H POC Glucose (mg/dL) 242 H AST 38 H Alkaline Phosphatase 130 H 01/29/25 01/29/25 01/29/25 06:43 12:33 13:05 WBC RBC 2.77 L Hgb 8.7 L Hct 28.1 L MCV 101.7 H MCHC 30.8 L RDW 17.6 H Plt Count 124 L Lymphocytes # 0.4 L Sodium Potassium Chloride Carbon Dioxide BUN Creatinine Est GFR (CKD-EPI) BUN/Creatinine Ratio Glucose POC Glucose (mg/dL) 124 H 277 H AST Alkaline Phosphatase 01/29/25 01/29/25 01/30/25 13:05 17:05 05:58 WBC 4.39 L RBC 2.60 L Hgb 8.0 L Hct 26.5 L MCV 101.9 H MCHC 30.2 L RDW 17.7 H Plt Count 118 L Lymphocytes # 0.62 L Sodium 136 L Potassium Chloride 94 L Carbon Dioxide 37 H BUN 27 H Creatinine 1.13 H Est GFR (CKD-EPI) BUN/Creatinine Ratio Glucose 202 H POC Glucose (mg/dL) 125 H AST Alkaline Phosphatase 01/30/25 01/30/25 01/30/25 05:58 06:14 12:13 WBC RBC Hgb Hct MCV MCHC RDW Plt Count Lymphocytes # Sodium Potassium 3.4 L Chloride Carbon Dioxide 33.7 H BUN Creatinine Est GFR (CKD-EPI) 46 L BUN/Creatinine Ratio Glucose 118 H POC Glucose (mg/dL) 265 H 199 H AST Alkaline Phosphatase 01/30/25 01/30/25 01/31/25 17:10 19:23 04:09 WBC RBC 2.66 L Hgb 8.2 L Hct 26.8 L MCV 100.8 H MCHC 30.6 L RDW 17.9 H Plt Count 134 L Lymphocytes # 0.68 L Sodium Potassium Chloride Carbon Dioxide BUN Creatinine Est GFR (CKD-EPI) BUN/Creatinine Ratio Glucose POC Glucose (mg/dL) 125 H 120 H AST Alkaline Phosphatase 01/31/25 01/31/25 01/31/25 04:09 06:01 11:54 WBC RBC Hgb Hct MCV MCHC RDW Plt Count Lymphocytes # Sodium Potassium Chloride 95 L Carbon Dioxide 34.5 H BUN Creatinine Est GFR (CKD-EPI) 42 L BUN/Creatinine Ratio Glucose POC Glucose (mg/dL) 119 H 139 H AST Alkaline Phosphatase 01/31/25 02/01/25 02/01/25 18:09 04:31 04:31 WBC RBC 2.52 L Hgb 7.8 L Hct 25.6 L MCV 101.6 H MCHC 30.5 L RDW 17.7 H Plt Count 122 L Lymphocytes # 0.54 L Sodium Potassium 3.2 L Chloride 95 L Carbon Dioxide 35.4 H BUN Creatinine Est GFR (CKD-EPI) 42 L BUN/Creatinine Ratio Glucose POC Glucose (mg/dL) 128 H AST Alkaline Phosphatase 02/01/25 02/01/25 02/01/25 11:58 17:24 20:42 WBC RBC Hgb Hct MCV MCHC RDW Plt Count Lymphocytes # Sodium Potassium Chloride Carbon Dioxide BUN Creatinine Est GFR (CKD-EPI) BUN/Creatinine Ratio Glucose POC Glucose (mg/dL) 139 H 171 H 167 H AST Alkaline Phosphatase 02/02/25 02/02/25 02/02/25 03:48 11:48 12:32 WBC RBC 3.16 L Hgb 9.4 L Hct 32.6 L MCV 103.2 H MCHC 28.9 L RDW 17.1 H Plt Count 138 L Lymphocytes # 0.5 L Sodium Potassium Chloride 94 L Carbon Dioxide 37.8 H BUN Creatinine Est GFR (CKD-EPI) 46 L BUN/Creatinine Ratio 21.25 H Glucose POC Glucose (mg/dL) 188 H AST Alkaline Phosphatase 02/02/25 02/02/25 17:16 20:37 WBC RBC Hgb Hct MCV MCHC RDW Plt Count Lymphocytes # Sodium Potassium Chloride Carbon Dioxide BUN Creatinine Est GFR (CKD-EPI) BUN/Creatinine Ratio Glucose POC Glucose (mg/dL) 190 H 155 H AST Alkaline Phosphatase - Diagnostic Findings Chest x-ray: image reviewed CT scan - chest: image reviewed Assessment and Plan Assessment: Acute on chronic dyspnea, secondary to acute exacerbation of systolic congestive heart failure and valvular heart disease. Small to moderate sized bilateral pleural effusions Gross anasarca Acute hypoxemic respiratory failure, currently on 6 L/min nasal cannula, secondary to above History of valvular heart disease with previous aortic valve replacement, mitral valve replacement, and tricuspid valve repair, performed at the [facility] May, Dual-chamber pacemaker insertion, paced rhythm Paroxysmal A-fib maintained on anticoagulation with Eliquis Coronary artery disease with previous coronary stenting Diabetes mellitus, insulin-dependent History of hypothyroidism History of hyperlipidemia Hypertension Chronic anemia, hemoglobin stable at 9.4 g/dL Chronic metabolic alkalosis Severe pulmonary hypertension, group 2 History of obstructive sleep apnea with home CPAP Obesity, with a BMI of 41.4 kg/m Plan: Ultrasound the chest demonstrating a 8.4 cm left pleural effusion and is marked for possible left-sided thoracentesis Case will be discussed with Dr. Peña If thoracentesis is planned, Eliquis will have to be placed on hold In the meantime, continue with Lasix 40 mg 3 times daily Continue supplemental oxygen to maintain oxygen saturation 92% or greater Utilize CPAP at bedtime Further recommendations to follow I have personally seen and examined the patient, performed the documentation and the assessment and plan as written. Number of minutes spent on the visit:20 Time with Patient: Greater than 30
[2025-02-03 05:59] LABS: Glucose,Whole Blood 73 mg/dL (70-110)
[2025-02-03 08:28] LABS: Basophils # (A) 0.03 X 10*3/uL (0.00-0.10); Basophils % (A) 0.7 %; Eosinophils # (A) 0.17 X 10*3/uL (0.04-0.35); Eosinophils % (A) 3.7 %; HGB 7.9 g/dL (12.0-15.0); Lymphocytes # (A) 0.53 X 10*3/uL (0.90-5.00); Lymphocytes % (A) 11.5 %; MCH 30.4 pg (27.0-32.0); MCHC 30.4 g/dL (32.0-37.0); Mean Platelet Volume 10.5 FL (9.5-12.2); Monocytes # (A) 0.47 X 10*3/uL (0.20-1.00); Monocytes % (A) 10.2 %; NRBC Per 100 WBC 0 X 10*3/uL (0.00-0.01); Neutrophils # (A) 3.39 X 10*3/uL (1.80-7.70); Neutrophils % (A) 73.7 %; Platelet Count 115 X 10*3/uL (140-440); RDW 17.4 % (11.5-14.5)
[2025-02-03 08:40] LABS: BUN/Creat Ratio 19.54 Ratio (12.00-20.00); Blood Urea Nitrogen 25.4 mg/dL (9.0-27.0); Chloride 94 mmol/L (96-109); Glucose 61 mg/dL (70-110); Potassium 3.3 mmol/L (3.5-5.5); Sodium 143 mmol/L (135-145)
[2025-02-03 08:41] LABS: ALT 24 U/L (8-44); AST 43 U/L (13-35); Albumin 3.7 g/dL (3.8-4.9); Albumin/Globulin Ratio 1.23 Ratio (1.60-3.17); Alkaline Phosphatase 132 U/L (41-126); Calcium 9.4 mg/dL (8.7-10.3); Carbon Dioxide 38.3 mmol/L (21.6-31.8); Total Bilirubin 0.5 mg/dL (0.3-1.2); Total Protein 6.7 g/dL (6.2-8.2)
--- NOTE | 2025-02-03 10:40 | P.PN ---
Subjective Progress Note Date: 02/03/25 HISTORY OF PRESENT ILLNESS: This is a 80-year-old female patient of Dr. Watson with past medical history of aortic valve replacement and mitral valve replacement and tricuspid valve repair at [facility] in May 2024, coronary artery disease, dual-chamber pacemaker, paroxysmal atrial fibrillation, hyperlipidemia, diabetes mellitus type 2, hypertension. We have been asked to evaluate the patient for CHF. Patient presented to the emergency center due to increase in edema to the lower extremities, shortness of breath and weight gain. Patient also complains of dyspnea on exertion and able to only walk a few feet at a time. Patient had a hospitalization in October 2024 at which time she presented with hemoglobin of 5.5. EGD EGD and colonoscopy did not show source of bleeding. At some point, patient was resumed back on Eliquis and has been taking it as ordered. Blood pressure 122/65, heart rate 64, pulse ox 100% on CPAP. Patient is seen today in the emergency center waiting for a bed on the cardiac stepdown unit. Patient has been started on IV Lasix 40 mg every 8 hours. -EKG: Atrial paced rhythm 60 bpm -Chest x-ray: Cardiomegaly, pulmonary vascular congestion and bilateral pleural effusions. -Laboratory studies: WBC 5.3, hemoglobin 8.8, platelet count 125. Sodium 135, CO2 35, BUN 25 creatinine 1.05. Troponin negative x 1. proBNP 3830. -Home cardiac medications: Eliquis 5 mg twice daily, Lasix 20 mg twice daily, metoprolol succinate 50 mg twice daily. -Echocardiogram reveals EF of 60 to 65%. Technically difficult study with poor acoustic window. Severe pulmonary hypertension with RVSP 56 mmHg. Status post mitral valve replacement, mild mitral stenosis. Aortic valve replacement. -Cardiovascular surgery 05/20/2024: Tissue AVR, tissue MVR, TV repair -Previous CV surgery 11/06/2018: TAVR. -Cardiac catheterization 2020 with stent placed in the mid D1, stent in the ostial PDA. 01/30/2025 Patient examined this morning at the bedside. Patient currently denies chest pain or pressure. She states she is not feeling very well this morning. She continues to report shortness of breath. Patient is currently on IV Lasix 40 mg every 8 hours. BUN 21. Creatinine 1.2. Urine output over the last 24 hours is 1500 cc. 01/31/2025 Patient examined this morning at bedside. Patient denies chest pain or pressure. She does report shortness of breath although improving. She continues to have significant edema although slowly improving. She remains on IV Lasix. Creatinine today 1.3. Patient's weight is down approximately 5 kg from yesterday. 02/01 Patient seen and examined. Patient is currently maintained on IV Lasix 40 mg every 8 hours. Patient has a negative fluid balance and weights do not appear to be accurate. Patient states the lower extremity edema is improved but she continues to have quite a bit. Repeat blood work reveals hemoglobin 7.8, platelet count 122, sodium 142, potassium 3.2, BUN 22 creatinine 1.3. Echocardiogram reveals EF of 40 to 45%, severe pulmonary hypertension. Difficult to comment on valves. 02/02 Patient seen and examined. Patient has been continued on IV Lasix 40 mg every 8 hours. Zaroxolyn 2.5 mg daily was started yesterday. Lower extremity edema is improved. Blood pressure 116/67, heart rate 65, pulse ox 99% on CPAP. Patient has a negative fluid balance and questionable whether weights are accurate. Repeat blood work reveals hemoglobin 9.4, BUN 25 creatinine 1.2 and potassium 3.6. Repeat chest x-ray reveals pulmonary venous congestion with small effusions, cardiomegaly. 02/03 Patient seen and examined. Yesterday we recommended continuing the IV Lasix every 8 hours and the continuation of metolazone. Patient's breathing status and lower extremity edema continue to improve. She is diuresing well. Not sure that ALICIA's and weights are accurate. Blood pressure 110/58, heart rate 60, pulse ox 100% on BiPAP. Repeat blood work reveals potassium 3.3, BUN 25 creatinine 1.3, hemoglobin 7.9. Potassium will be replaced. CT chest abdomen and pelvis: Cardiomegaly. Small to moderate bilateral pleural effusions and interlobular septal thickening suggestive of pulmonary edema. Diffuse small volume abdominal pelvic ascites and moderate diffuse body wall edema. Cirrhotic liver morphology. Diverticulosis. PHYSICAL EXAM: VITAL SIGNS: Reviewed. GENERAL: Well-developed in no acute distress. NECK: Supple. No JVD or thyromegaly LUNGS: Respirations even and unlabored. Lungs essentially clear to auscultation bilaterally, diminished. HEART: Regular rate and rhythm. S1 and S2 heard. EXTREMITIES: No clubbing or cyanosis. Peripheral pulses intact. Bilateral lower extremity edema noted. ASSESSMENT: Acute on chronic diastolic heart failure Small to moderate bilateral pleural effusions History of aortic valve replacement, mitral valve replacement, tricuspid valve repair May 2024 at [facility] Coronary artery disease with prior stenting Dual-chamber pacemaker, [facility], November 2017 Paroxysmal atrial fibrillation on Eliquis Hyperlipidemia Diabetes mellitus type 2 Hypertension Moderate to severe pulmonary hypertension Thrombocytopenia Chronic anemia with previous workup for GI bleed, both EGD and colonoscopy negative for source Morbid obesity with BMI of 51 PLAN: Continue current cardiac medications including Eliquis and metoprolol Farxiga and atorvastatin added Continue IV Lasix 40 mg every 8 hours for another 24 hours Continue metolazone 2.5 mg daily Daily weights, accurate intake and output, and monitoring of kidney function Further recommendations pending patient course. Nurse practitioner note has been reviewed by physician. Signing provider agrees with the documented findings, assessment, and plan of care documented by IT SOFTWARE DEVELOPER as a scribe. Objective - Vital Signs Vital signs: Vital Signs Temp 96.3 F L 02/03/25 07:38 Pulse 60 02/03/25 07:38 Resp 16 02/03/25 07:38 BP 110/58 02/03/25 07:38 Pulse Ox 100 02/03/25 07:38 FiO2 Intake & Output 02/02/25 02/03/25 02/03/25 18:59 06:59 18:59 Intake Total 944 Output Total 650 700 Balance 294 -700 Weight 105.5 kg Intake: Oral 944 Output: Urine 650 700 Other: Voiding Method Bedside Commode Bedside Commode # Voids 4 - Labs CBC & Chem 7: 02/03/25 04:44 02/03/25 04:44 Labs: Abnormal Lab Results - Last 24 Hours (Table) 02/02/25 02/02/25 02/02/25 Range/Units 03:48 11:48 12:32 RBC 3.16 L (3.80-5.40) m/uL Hgb 9.4 L (11.4-16.0) gm/dL Hct 32.6 L (34.0-46.0) % MCV 103.2 H (80.0-100.0) fL MCHC 28.9 L (31.0-37.0) g/dL RDW 17.1 H (11.5-15.5) % Plt Count 138 L (150-450) k/uL Lymphocytes # 0.5 L (1.0-4.8) k/uL Chloride 94 L (96-109) mmol/L Carbon Dioxide 37.8 H (21.6-31.8) mmol/L Est GFR (CKD-EPI) 46 L (>=60) BUN/Creatinine Ratio 21.25 H (12.00-20.00) Ratio POC Glucose (mg/dL) 188 H (70-110) mg/dL 02/02/25 02/02/25 02/03/25 Range/Units 17:16 20:37 04:44 RBC 2.60 L (3.80-5.40) m/uL Hgb 7.9 L (11.4-16.0) gm/dL Hct 26.0 L (34.0-46.0) % MCV 100.0 H (80.0-100.0) fL MCHC 30.4 L (31.0-37.0) g/dL RDW 17.4 H (11.5-15.5) % Plt Count 115 L (150-450) k/uL Lymphocytes # 0.53 L (1.0-4.8) k/uL Chloride (96-109) mmol/L Carbon Dioxide (21.6-31.8) mmol/L Est GFR (CKD-EPI) (>=60) BUN/Creatinine Ratio (12.00-20.00) Ratio POC Glucose (mg/dL) 190 H 155 H (70-110) mg/dL
[2025-02-03] MEDS: POTASSIUM CHLORIDE ER 20 MEQ TAB.ER PO STA (10:57)
[2025-02-03] MEDS: SODIUM FERRIC GLUCONAT-SUCROSE 125 MG in SODIUM CHLORIDE 0.9% 100 ML IVPB ONE (10:57)
[2025-02-03 12:06] LABS: Glucose,Whole Blood 152 mg/dL (70-110)
--- NOTE | 2025-02-03 13:49 | P.CONS ---
History of Present Illness - Reason for Consult Consult date: 02/03/25 HHx of anemia, iron infusions Requesting physician: Deloris Roger - Chief Complaint swelling - History of Present Illness Mrs. Perales is a pleasant 80-year-old female patient initially seen in consult 10/28/2024 for severe anemia. She presented with progressive weakness and shortness of breath, hemoglobin 5.5 at that time. Patient was on Eliquis and baby aspirin on admission for a history of cardiac stents and heart valve replacement, also a history of atrial fibrillation. 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 She received IV iron inpatient, as well as as an outpatient in the office. During her hospitalization she had left-sided thoracentesis for a new pleural effusion, with cytology negative. She was seen for her first office visit on 01/06/25. In that time she remained quite debilitated and short of breath on exertion. She was able to ambulate for short distances only inside the house and was using a wheelchair outside. She had been on oxygen since hospitalization and reported overall low energy and variable appetite. She was placed back on baby aspirin and eliquis during her hospitalization and has continued on the same. She does not report any obvious bleeding. She has received iron in the outpatient setting. She was due for another dose of iron outpatient today. After hematological assessment, it was felt that iron deficient anemia was seco ndary to small bowel AVM related blood losses, exacerbated by anticoagulation and antiplatelet therapies. Patient did have improvement in her hemoglobin after parenteral iron infusions. It is noted that patient does have CKD which will affect hematopoiesis. Patient has remained on follow-up as directed, best hemoglobin achieved in the office lab results, was 9. Patient was admitted 4 days ago with complaints of worsening swelling, approximately 30 pound weight gain-per family. When reviewing the chart, pt has lost 25 kg since admission! She is still reporting significant edema in the low er extremities as well as the abdomen. She states her legs feel like "tree trunks", she denies any significant shortness of breath, she is not requiring oxygen. Cardiology is following. Chest ultrasound is showing a pleural effusion on the left 8.4 cm, this has been marked for possible thoracentesis. CT CAP without contrast done because of left pleural effusion and significant edema reporting diffuse small volume abdomen abdominal pelvic ascites and moderate dif fuse body wall anasarca. Hemoglobin 8.8 on admission, it is at 7.9 today. She has not received a transfusion since admission. . No bleeding to report. She was started recently on oral iron and yesterday noticed black stool. 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 HAD THYROID AND PARATHYROID REMOVAL. TOTAL LEFT KNEE REPLACEMENT, CATARACT RT EYE, CATARACT LEFT EYE SURGERY ,COLONOSCOPY, TVAR- 11/2018 , Aortic valve replacement 10/2018 Past Anesthesia/Blood Transfusion Reactions: No Reported Reaction Type of Cardiac Device: Permanent Pacemaker Device Placement Date:: PACEMAKER NOV 2017. Smoking Status: Never smoker - Past Family History Daughter(s) Family Medical History: Deep Vein Thrombosis (DVT) Sister(s) Family Medical History: Cancer Additional Family Medical History / Comment(s): BREAST CANCER Medications and Allergies Home Medications Medication Instructions Recorded Confirmed Type Levothyroxine Sodium [Levoxyl] 175 mcg PO DAILY 10/25/20 01/28/25 History FLUoxetine HCL [PROzac] 10 mg PO DAILY 10/08/24 01/28/25 History Insulin Aspart [NovoLOG Flexpen] 40 units SQ TID-W/MEALS 10/08/24 01/28/25 History Insulin Glargine,Hum.rec.anlog 20 units SQ HS 10/08/24 01/28/25 History [Lantus Solostar Pen] Metoprolol Succinate (ER) [Toprol 50 mg PO BID #60 tab 10/22/24 01/28/25 Rx XL] Apixaban [Eliquis] 5 mg PO BID #0 10/30/24 01/28/25 Rx Calcium Carbonate [Calcium] 600 mg PO BID 01/28/25 01/28/25 History Furosemide [Lasix] 20 mg PO BID 01/28/25 01/28/25 History Allergies Allergy/AdvReac Type Severity Reaction Status Date / Time nitrofurantoin Allergy Rash/Hives Verified 01/28/25 16:01 macrocrystalline [From Macrodantin] phenazopyridine HCl Allergy Rash/Hives Verified 01/28/25 16:01 [From Pyridium] Physical Exam Vitals: Vital Signs Temp Pulse Resp BP Pulse Ox 02/03/25 07:38 96.3 F L 60 16 110/58 100 02/03/25 02:06 98.2 F 64 15 114/71 100 02/02/25 19:05 98.0 F 61 15 107/65 98 Intake and Output 02/02/25 02/03/25 02/03/25 22:59 06:59 14:59 Intake Total 708 Output Total 650 700 Balance 58 -700 Intake: Oral 708 Output: Urine 650 700 Other: Voiding Method Bedside Commode Bedside Commode # Voids 4 Weight 105.5 kg - Constitutional General appearance: cooperative, no acute distress, obese - EENT Eyes: anicteric sclerae, EOMI ENT: hearing grossly normal, normal oropharynx - Neck Neck: no lymphadenopathy - Respiratory Respiratory: bilateral: CTA - Cardiovascular Rhythm: regular Heart sounds: normal: S1, S2 Abnormal Heart Sounds: no systolic murmur, no diastolic murmur, no rub, no S3 Gallop, no S4 Gallop, no click, no other leg Peripheral Edema: bilateral: 1+, Pitting - Gastrointestinal Soft tissue edema in the abdomen and thigh area General gastrointestinal: normal bowel sounds, soft - Integumentary Integumentary: pale - Neurologic Neurologic: CNII-XII intact - Musculoskeletal Musculoskeletal: generalized weakness - Psychiatric Psychiatric: A&O x's 3, appropriate affect, intact judgment & insight Results CBC & Chem 7: 02/03/25 04:44 02/03/25 04:44 Labs: Abnormal Lab Results - Last 24 Hours (Table) 02/02/25 02/02/25 02/03/25 Range/Units 17:16 20:37 04:44 RBC 2.60 L (4.10-5.20) X 10*6/uL Hgb 7.9 L (12.0-15.0) g/dL Hct 26.0 L (37.2-46.3) % MCV 100.0 H (80.0-97.0) FL MCHC 30.4 L (32.0-37.0) g/dL RDW 17.4 H (11.5-14.5) % Plt Count 115 L (140-440) X 10*3/uL Lymphocytes # 0.53 L (0.90-5.00) X 10*3/uL Potassium (3.5-5.5) mmol/L Chloride (96-109) mmol/L Carbon Dioxide (21.6-31.8) mmol/L Est GFR (CKD-EPI) (>=60) Glucose (70-110) mg/dL POC Glucose (mg/dL) 190 H 155 H (70-110) mg/dL AST (13-35) U/L Alkaline Phosphatase (41-126) U/L Albumin (3.8-4.9) g/dL Albumin/Globulin Ratio (1.60-3.17) Ratio 02/03/25 02/03/25 Range/Units 04:44 12:04 RBC (4.10-5.20) X 10*6/uL Hgb (12.0-15.0) g/dL Hct (37.2-46.3) % MCV (80.0-97.0) FL MCHC (32.0-37.0) g/dL RDW (11.5-14.5) % Plt Count (140-440) X 10*3/uL Lymphocytes # (0.90-5.00) X 10*3/uL Potassium 3.3 L (3.5-5.5) mmol/L Chloride 94 L (96-109) mmol/L Carbon Dioxide 38.3 H (21.6-31.8) mmol/L Est GFR (CKD-EPI) 42 L (>=60) Glucose 61 L (70-110) mg/dL POC Glucose (mg/dL) 152 H (70-110) mg/dL AST 43 H (13-35) U/L Alkaline Phosphatase 132 H (41-126) U/L Albumin 3.7 L (3.8-4.9) g/dL Albumin/Globulin Ratio 1.23 L (1.60-3.17) Ratio Comments: Echo reporting LVEF 40 to 45%, severe pulmonary hypertension CT scan - abdomen: report reviewed CT scan - chest: report reviewed CT scan - pelvis: report reviewed Assessment and Plan (1) Iron deficiency anemia Current Visit: Yes Status: Chronic Priority: Medium Code(s): D50.9 - IRON DEFICIENCY ANEMIA, UNSPECIFIED SNOMED Code(s): 67551850 Plan: Iron deficiency anemia -Patient has been seen, evaluated, assessed and worked up by hematology about 4 weeks ago. 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 She was maintaining a hemoglobin between 8 and 9 on recent checks in the office. She was currently receiving additional doses of IV iron outpatient. Will continue while inpatient. Will reschedule her IV iron outpatient. Discontinue oral iron, does not provide enough iron supplementation at the cost of side effects. -Baseline hemoglobin 8-9 range at this time. Also contributing to patient's anemia is felt to be a component of chronic kidney disease. Pending adequate iron supplementation before considering the addition of WENDY. -Patient will stay on follow-up as already scheduled with Dr. Duenas.
[2025-02-03 14:56] LABS: % Iron Saturation 15.47 (12.00-45.00)
[2025-02-03 17:23] LABS: Glucose,Whole Blood 199 mg/dL (70-110)
[2025-02-03 20:18] LABS: Glucose,Whole Blood 159 mg/dL (70-110)
--- NOTE | 2025-02-03 22:41 | PN ---
PROGRESS NOTE DATE OF SERVICE: 02/03/2025 SUBJECTIVE: This is a 80-year-old woman, who was admitted with CHF acute exacerbation, also had left pleural effusion. The patient also had acute renal injury and anemia and also has chronic liver disease also. Multiple consultants are following the patient closely. The patient is receiving IV iron infusion at this time. There is no history of any fever or rigors. The patient is also complaining of significant tiredness and weakness also. I would recommend PT, OT evaluation, possible ECF rehab also because of the multiple complex medical issues at this time. PAST MEDICAL HISTORY: Reviewed. REVIEW OF SYSTEMS: Fourteen-point review of systems is negative except as mentioned earlier. CURRENT MEDICATIONS: Reviewed. PHYSICAL EXAMINATION: VITAL SIGNS: Pulse is 60, blood pressure is 130/58, respirations 16. HEENT: Conjunctivae normal. NECK: No JVD. CARDIOVASCULAR: S1, S2. RESPIRATIONS: Breath sounds diminished at the bases. A few scattered rhonchi and crackles. ABDOMEN: Soft, nontender. LEGS: No edema. NERVOUS SYSTEM: Nonfocal. LABORATORY DATA: Hemoglobin 7.9. ASSESSMENT: 1. Congestive heart failure acute exacerbation with acute on chronic diastolic dysfunction, ejection fraction 60% to 65%. 2. Left pleural effusion. 3. Acute renal injury. 4. Possible chronic liver disease. 5. Paroxysmal atrial fibrillation. 6. Hypertension. 7. Diabetes mellitus, type 2. 8. Multiple medical issues. 9. Gait dysfunction. RECOMMENDATIONS: Recommend to continue current medications and continue symptomatic treatment. Otherwise, closely follow with multiple consultations. Dr. Ledbetter has evaluated the patient for possible paracentesis. Continue with IV Lasix, fluid restriction to 1200 mL per 24 hours. PT, OT evaluation, possible ECF rehab. Repeat labs will be ordered. Guarded prognosis because of multiple complex medical issues and further recommendations to follow. We will monitor hemoglobin closely. If hemoglobin shows a downward trend, I would also recommend 1 unit of transfusion for symptomatic anemia. MMODL / IJN: [id number] /
[2025-02-04 05:48] LABS: Glucose,Whole Blood 122 mg/dL (70-110)
[2025-02-04 08:37] LABS: Basophils # (A) 0.05 X 10*3/uL (0.00-0.10); Basophils % (A) 0.9 %; Eosinophils # (A) 0.13 X 10*3/uL (0.04-0.35); Eosinophils % (A) 2.3 %; HCT 25.8 % (37.2-46.3); HGB 7.9 g/dL (12.0-15.0); Lymphocytes # (A) 0.46 X 10*3/uL (0.90-5.00); Lymphocytes % (A) 8.3 %; MCH 30.7 pg (27.0-32.0); MCHC 30.6 g/dL (32.0-37.0); MCV 100.4 FL (80.0-97.0); Mean Platelet Volume 10.8 FL (9.5-12.2); Monocytes # (A) 0.56 X 10*3/uL (0.20-1.00); Monocytes % (A) 10.1 %; NRBC Per 100 WBC 0 X 10*3/uL (0.00-0.01); Neutrophils # (A) 4.34 X 10*3/uL (1.80-7.70); Platelet Count 128 X 10*3/uL (140-440); RBC 2.57 X 10*6/uL (4.10-5.20); RDW 17.3 % (11.5-14.5); WBC 5.56 X 10*3/uL (4.50-10.00)
[2025-02-04 09:29] LABS: ALT 25 U/L (8-44); AST 48 U/L (13-35); Albumin 3.6 g/dL (3.8-4.9); Albumin/Globulin Ratio 1.12 Ratio (1.60-3.17); Alkaline Phosphatase 149 U/L (41-126); BUN/Creat Ratio 21.23 Ratio (12.00-20.00); Blood Urea Nitrogen 27.6 mg/dL (9.0-27.0); Calcium 9.4 mg/dL (8.7-10.3); Carbon Dioxide 36.8 mmol/L (21.6-31.8); Chloride 91 mmol/L (96-109); Globulin 3.2 g/dL (1.6-3.3); Glucose 106 mg/dL (70-110); Potassium 3.5 mmol/L (3.5-5.5); Sodium 139 mmol/L (135-145); Total Bilirubin 0.4 mg/dL (0.3-1.2); Total Protein 6.8 g/dL (6.2-8.2)
[2025-02-04] MEDS: FUROSEMIDE 80 MG TAB PO SCH (09:32)
--- NOTE | 2025-02-04 10:16 | P.PN ---
Subjective Progress Note Date: 02/04/25 HISTORY OF PRESENT ILLNESS: This is a 80-year-old female patient of Dr. Watson with past medical history of aortic valve replacement and mitral valve replacement and tricuspid valve repair at [facility] in May 2024, coronary artery disease, dual-chamber pacemaker, paroxysmal atrial fibrillation, hyperlipidemia, diabetes mellitus type 2, hypertension. We have been asked to evaluate the patient for CHF. Patient presented to the emergency center due to increase in edema to the lower extremities, shortness of breath and weight gain. Patient also complains of dyspnea on exertion and able to only walk a few feet at a time. Patient had a hospitalization in October 2024 at which time she presented with hemoglobin of 5.5. EGD EGD and colonoscopy did not show source of bleeding. At some point, patient was resumed back on Eliquis and has been taking it as ordered. Blood pressure 122/65, heart rate 64, pulse ox 100% on CPAP. Patient is seen today in the emergency center waiting for a bed on the cardiac stepdown unit. Patient has been started on IV Lasix 40 mg every 8 hours. -EKG: Atrial paced rhythm 60 bpm -Chest x-ray: Cardiomegaly, pulmonary vascular congestion and bilateral pleural effusions. -Laboratory studies: WBC 5.3, hemoglobin 8.8, platelet count 125. Sodium 135, CO2 35, BUN 25 creatinine 1.05. Troponin negative x 1. proBNP 3830. -Home cardiac medications: Eliquis 5 mg twice daily, Lasix 20 mg twice daily, metoprolol succinate 50 mg twice daily. -Echocardiogram reveals EF of 60 to 65%. Technically difficult study with poor acoustic window. Severe pulmonary hypertension with RVSP 56 mmHg. Status post mitral valve replacement, mild mitral stenosis. Aortic valve replacement. -Cardiovascular surgery 05/20/2024: Tissue AVR, tissue MVR, TV repair -Previous CV surgery 11/06/2018: TAVR. -Cardiac catheterization 2020 with stent placed in the mid D1, stent in the ostial PDA. 01/30/2025 Patient examined this morning at the bedside. Patient currently denies chest pain or pressure. She states she is not feeling very well this morning. She continues to report shortness of breath. Patient is currently on IV Lasix 40 mg every 8 hours. BUN 21. Creatinine 1.2. Urine output over the last 24 hours is 1500 cc. 01/31/2025 Patient examined this morning at bedside. Patient denies chest pain or pressure. She does report shortness of breath although improving. She continues to have significant edema although slowly improving. She remains on IV Lasix. Creatinine today 1.3. Patient's weight is down approximately 5 kg from yesterday. 02/01 Patient seen and examined. Patient is currently maintained on IV Lasix 40 mg every 8 hours. Patient has a negative fluid balance and weights do not appear to be accurate. Patient states the lower extremity edema is improved but she continues to have quite a bit. Repeat blood work reveals hemoglobin 7.8, platelet count 122, sodium 142, potassium 3.2, BUN 22 creatinine 1.3. Echocardiogram reveals EF of 40 to 45%, severe pulmonary hypertension. Difficult to comment on valves. 02/02 Patient seen and examined. Patient has been continued on IV Lasix 40 mg every 8 hours. Zaroxolyn 2.5 mg daily was started yesterday. Lower extremity edema is improved. Blood pressure 116/67, heart rate 65, pulse ox 99% on CPAP. Patient has a negative fluid balance and questionable whether weights are accurate. Repeat blood work reveals hemoglobin 9.4, BUN 25 creatinine 1.2 and potassium 3.6. Repeat chest x-ray reveals pulmonary venous congestion with small effusions, cardiomegaly. 02/03 Patient seen and examined. Yesterday we recommended continuing the IV Lasix every 8 hours and the continuation of metolazone. Patient's breathing status and lower extremity edema continue to improve. She is diuresing well. Not sure that ALICIA's and weights are accurate. Blood pressure 110/58, heart rate 60, pulse ox 100% on BiPAP. Repeat blood work reveals potassium 3.3, BUN 25 creatinine 1.3, hemoglobin 7.9. Potassium will be replaced. CT chest abdomen and pelvis: Cardiomegaly. Small to moderate bilateral pleural effusions and interlobular septal thickening suggestive of pulmonary edema. Diffuse small volume abdominal pelvic ascites and moderate diffuse body wall edema. Cirrhotic liver morphology. Diverticulosis. 02/04 Patient seen and examined. Patient has been maintained on IV Lasix 40 mg every 12 hours as well as metolazone started on this admission at 2.5 mg daily. She has had improvement of her breathing and lower extremity edema. Blood pressure 114/69, heart rate 63, pulse ox 98% on CPAP. Repeat blood work reveals hemoglobin 7.9 and potassium 3.5, BUN 27 creatinine 1.3. PHYSICAL EXAM: VITAL SIGNS: Reviewed. GENERAL: Well-developed in no acute distress. NECK: Supple. No JVD or thyromegaly LUNGS: Respirations even and unlabored. Lungs essentially clear to auscultation bilaterally, diminished. HEART: Regular rate and rhythm. S1 and S2 heard. EXTREMITIES: No clubbing or cyanosis. Peripheral pulses intact. Bilateral lower extremity edema noted. ASSESSMENT: Acute on chronic diastolic heart failure Small to moderate bilateral pleural effusions History of aortic valve replacement, mitral valve replacement, tricuspid valve repair May 2024 at [facility] Coronary artery disease with prior stenting Dual-chamber pacemaker, [facility] [employer], November 2017 Paroxysmal atrial fibrillation on Eliquis Hyperlipidemia Diabetes mellitus type 2 Hypertension Moderate to severe pulmonary hypertension Thrombocytopenia Chronic anemia with previous workup for GI bleed, both EGD and colonoscopy negative for source Morbid obesity with BMI of 51 PLAN: Continue current cardiac medications including Eliquis and metoprolol Farxiga and atorvastatin added Transition IV Lasix to oral at 80 mg in the morning and 40 mg in the afternoon Continue metolazone 2.5 mg daily Daily weights, accurate intake and output, and monitoring of kidney function Monitor patient for another 24 hours and plan for discharge home tomorrow Further recommendations pending patient course. Nurse practitioner note has been reviewed by physician. Signing provider agrees with the documented findings, assessment, and plan of care documented by SANDING MACHINE TENDER as a scribe. Objective - Vital Signs Vital signs: Vital Signs Temp 98.0 F 02/04/25 08:00 Pulse 63 02/04/25 08:00 Resp 18 02/04/25 08:00 BP 114/69 02/04/25 08:00 Pulse Ox 98 02/04/25 08:00 FiO2 Intake & Output 02/03/25 02/04/25 02/04/25 18:59 06:59 18:59 Output Total 1000 Balance -1000 Output: Urine 1000 Other: Voiding Method Bedside Commode Bedside Commode - Labs CBC & Chem 7: 02/04/25 04:15 02/04/25 04:10 Labs: Abnormal Lab Results - Last 24 Hours (Table) 02/03/25 02/03/25 02/03/25 Range/Units 04:44 04:44 12:04 RBC (4.10-5.20) X 10*6/uL Hgb (12.0-15.0) g/dL Hct (37.2-46.3) % MCV (80.0-97.0) FL MCHC (32.0-37.0) g/dL RDW (11.5-14.5) % Plt Count (140-440) X 10*3/uL Lymphocytes # (0.90-5.00) X 10*3/uL Potassium 3.3 L (3.5-5.5) mmol/L Chloride 94 L (96-109) mmol/L Carbon Dioxide 38.3 H (21.6-31.8) mmol/L Est GFR (CKD-EPI) 42 L (>=60) Glucose 61 L (70-110) mg/dL POC Glucose (mg/dL) 152 H (70-110) mg/dL Iron 41 L (50-170) UG/DL Transferrin 189.0 L (204.0-354.0) mg/dL AST 43 H (13-35) U/L Alkaline Phosphatase 132 H (41-126) U/L Albumin 3.7 L (3.8-4.9) g/dL Albumin/Globulin Ratio 1.23 L (1.60-3.17) Ratio 02/03/25 02/03/25 02/04/25 Range/Units 17:21 20:08 04:15 RBC 2.57 L (4.10-5.20) X 10*6/uL Hgb 7.9 L (12.0-15.0) g/dL Hct 25.8 L (37.2-46.3) % MCV 100.4 H (80.0-97.0) FL MCHC 30.6 L (32.0-37.0) g/dL RDW 17.3 H (11.5-14.5) % Plt Count 128 L (140-440) X 10*3/uL Lymphocytes # 0.46 L (0.90-5.00) X 10*3/uL Potassium (3.5-5.5) mmol/L Chloride (96-109) mmol/L Carbon Dioxide (21.6-31.8) mmol/L Est GFR (CKD-EPI) (>=60) Glucose (70-110) mg/dL POC Glucose (mg/dL) 199 H 159 H (70-110) mg/dL Iron (50-170) UG/DL Transferrin (204.0-354.0) mg/dL AST (13-35) U/L Alkaline Phosphatase (41-126) U/L Albumin (3.8-4.9) g/dL Albumin/Globulin Ratio (1.60-3.17) Ratio / Range/Units 05:45 RBC (4.10-5.20) X 10*6/uL Hgb (12.0-15.0) g/dL Hct (37.2-46.3) % MCV (80.0-97.0) FL MCHC (32.0-37.0) g/dL RDW (11.5-14.5) % Plt Count (140-440) X 10*3/uL Lymphocytes # (0.90-5.00) X 10*3/uL Potassium (3.5-5.5) mmol/L Chloride (96-109) mmol/L Carbon Dioxide (21.6-31.8) mmol/L Est GFR (CKD-EPI) (>=60) Glucose (70-110) mg/dL POC Glucose (mg/dL) 122 H (70-110) mg/dL Iron (50-170) UG/DL Transferrin (204.0-354.0) mg/dL AST (13-35) U/L Alkaline Phosphatase (41-126) U/L Albumin (3.8-4.9) g/dL Albumin/Globulin Ratio (1.60-3.17) Ratio
[2025-02-04] MEDS: SODIUM FERRIC GLUCONAT-SUCROSE 125 MG in SODIUM CHLORIDE 0.9% 100 ML IVPB SCH (11:21)
--- NOTE | 2025-02-04 12:11 | P.PN ---
Subjective Progress Note Date: 02/04/25 Patient is 80-year-old female with past medical history significant for valvular heart disease with previous extensive open heart procedure at [facility] done May,. Of note, recent prolonged hospitalization at our facility September through October,. During this time she underwent a left-sided thoracentesis with Dr. Peña, and a total of 850 cc was removed from the left pleural space. Fluid was a transudate based on lights criteria, consistent with heart failure. Pleural fluid cytology negative. She was eventually discharged on a combination of Lasix, Aldactone, and Zaroxolyn. Her humanities teacher is Dr. Watson. She also has past medical history significant for coronary artery disease with previous PCI/stent, dual-chamber pacemaker, paroxysmal atrial fibrillation, diabetes mellitus, hypothyroidism, hypertension, hyperlipidemia, obstructive sleep apnea with home CPAP. Presented back to the emergency department back on 01/28/2025 with a chief complaint of increasing shortness of breath with associated lower extremity edema. Approximately 30 to 40 pound weight gain over the last couple months. Follow-up echocardiogram showing reduced ejection fraction of 40 to 45% with severe pulmonary hypertension. Prior surgical valve replacement/repairs seen but not well-appreciated. She has been receiving Lasix 40 mg 3 times daily. Most recent labs: CBC 5.3, hemoglobin 9.4, platelets 138. CMP: Sodium 141, potassium 3.6, chloride 94, serum bicarb 38, BUN 25.5, creatinine 1.2, glucose 155. Troponin less than 0.012 on admission. NT proBNP was elevated at 3830. Patient currently being seen on the cardiac observation unit. She is on 6 L/min nasal cannula. No particular respiratory distress. Head of the bed is elevated, states she feels short of breath when lying flat. Her home CPAP is at the bedside. She is fluid positive with gross anasarca and pitting edema of the lower extremities. CT of the chest, abdomen, and pelvis without contrast showing cardiomegaly, small to moderate-sized bilateral pleural effusions and interlobular septal thickening suggestive of pulmonary edema. Diffuse small volume abdominal pelvic ascites and moderate diffuse body wall edema/anasarca. Additional incidental findings. Patient currently on Lasix 40 mg 3 times daily. Ultrasound of the chest showing a left-sided 8.4 cm pocket and is marked for possible thoracentesis. Patient is anticoagulated on Eliquis. Vital signs are stable. The patient is seen today February 04, 2025 in follow-up on the regular medical floor. She is awake and alert in no acute distress. Up ambulating to the bathroom. She is maintaining O2 saturations in the 90s on 5 L/min per nasal cannula. Also utilizing her CPAP at night. She is afebrile. Hemodynamically stable. White count 5.5. Hemoglobin 7.9. Platelets 128. Sodium 139. Potassium 3.5. Bicarb 37. BUN 28. Creatinine 1.3. Glucose 106. She is continued on oral diuretics. Anticoagulated with Eliquis. Objective - Vital Signs Vital signs: Vital Signs Temp 98.0 F 02/04/25 08:00 Pulse 63 02/04/25 08:00 Resp 18 02/04/25 08:49 BP 114/69 02/04/25 08:00 Pulse Ox 98 02/04/25 08:00 FiO2 Intake & Output 02/03/25 02/04/25 02/04/25 18:59 06:59 18:59 Output Total 1000 Balance -1000 Weight 123.8 kg Output: Urine 1000 Other: Voiding Method Bedside Commode Bedside Commode External Catheter - Exam GENERAL EXAM: Alert, 80-year-old female, ambulating in her room, on 5 L/min nasal cannula, comfortable in no apparent distress. HEAD: Normocephalic and atraumatic EYES: Normal reaction of pupils, equal size. NOSE: Clear with pink turbinates. THROAT: No erythema or exudates. NECK: No masses, no JVD. CHEST: No chest wall deformity. LUNGS: Equal air entry with diminished bibasilar lung sounds and inspiratory crackles. No conversational dyspnea. CVS: S1 and S2 normal with soft systolic murmur, regular rhythm. No other extra heart sounds ABDOMEN: No hepatosplenomegaly, active bowel sounds, no guarding or rigidity. Gross anasarca. SPINE: No scoliosis or deformity SKIN: No rashes CENTRAL NERVOUS SYSTEM: No focal deficits, tone is normal in all 4 extremities. EXTREMITIES: There is 2-3+ bilateral lower extremity edema. No clubbing, or cyanosis. Peripheral pulses are intact. - Labs CBC & Chem 7: 02/04/25 04:15 02/04/25 04:10 Labs: Abnormal Lab Results - Last 24 Hours (Table) 02/03/25 02/03/25 02/03/25 Range/Units 04:44 12:04 17:21 RBC (4.10-5.20) X 10*6/uL Hgb (12.0-15.0) g/dL Hct (37.2-46.3) % MCV (80.0-97.0) FL MCHC (32.0-37.0) g/dL RDW (11.5-14.5) % Plt Count (140-440) X 10*3/uL Lymphocytes # (0.90-5.00) X 10*3/uL Chloride (96-109) mmol/L Carbon Dioxide (21.6-31.8) mmol/L BUN (9.0-27.0) mg/dL Est GFR (CKD-EPI) (>=60) BUN/Creatinine Ratio (12.00-20.00) Ratio POC Glucose (mg/dL) 152 H 199 H (70-110) mg/dL Iron 41 L (50-170) UG/DL Transferrin 189.0 L (204.0-354.0) mg/dL AST (13-35) U/L Alkaline Phosphatase (41-126) U/L Albumin (3.8-4.9) g/dL Albumin/Globulin Ratio (1.60-3.17) Ratio 02/03/25 02/04/25 02/04/25 Range/Units 20:08 04:10 04:15 RBC 2.57 L (4.10-5.20) X 10*6/uL Hgb 7.9 L (12.0-15.0) g/dL Hct 25.8 L (37.2-46.3) % MCV 100.4 H (80.0-97.0) FL MCHC 30.6 L (32.0-37.0) g/dL RDW 17.3 H (11.5-14.5) % Plt Count 128 L (140-440) X 10*3/uL Lymphocytes # 0.46 L (0.90-5.00) X 10*3/uL Chloride 91 L (96-109) mmol/L Carbon Dioxide 36.8 H (21.6-31.8) mmol/L BUN 27.6 H (9.0-27.0) mg/dL Est GFR (CKD-EPI) 42 L (>=60) BUN/Creatinine Ratio 21.23 H (12.00-20.00) Ratio POC Glucose (mg/dL) 159 H (70-110) mg/dL Iron (50-170) UG/DL Transferrin (204.0-354.0) mg/dL AST 48 H (13-35) U/L Alkaline Phosphatase 149 H (41-126) U/L Albumin 3.6 L (3.8-4.9) g/dL Albumin/Globulin Ratio 1.12 L (1.60-3.17) Ratio 02/04/25 Range/Units 05:45 RBC (4.10-5.20) X 10*6/uL Hgb (12.0-15.0) g/dL Hct (37.2-46.3) % MCV (80.0-97.0) FL MCHC (32.0-37.0) g/dL RDW (11.5-14.5) % Plt Count (140-440) X 10*3/uL Lymphocytes # (0.90-5.00) X 10*3/uL Chloride (96-109) mmol/L Carbon Dioxide (21.6-31.8) mmol/L BUN (9.0-27.0) mg/dL Est GFR (CKD-EPI) (>=60) BUN/Creatinine Ratio (12.00-20.00) Ratio POC Glucose (mg/dL) 122 H (70-110) mg/dL Iron (50-170) UG/DL Transferrin (204.0-354.0) mg/dL AST (13-35) U/L Alkaline Phosphatase (41-126) U/L Albumin (3.8-4.9) g/dL Albumin/Globulin Ratio (1.60-3.17) Ratio Assessment and Plan Assessment: Acute on chronic dyspnea, secondary to acute exacerbation of systolic congestive heart failure and valvular heart disease. Small to moderate sized bilateral pleural effusions Gross anasarca Acute hypoxemic respiratory failure, currently on 6 L/min nasal cannula, secondary to above History of valvular heart disease with previous aortic valve replacement, mitral valve replacement, and tricuspid valve repair, performed at the [facility] May, Dual-chamber pacemaker insertion, paced rhythm Paroxysmal A-fib maintained on anticoagulation with Eliquis Coronary artery disease with previous coronary stenting Diabetes mellitus, insulin-dependent History of hypothyroidism History of hyperlipidemia Hypertension Chronic anemia, hemoglobin stable at 9.4 g/dL Chronic metabolic alkalosis Severe pulmonary hypertension, group 2 History of obstructive sleep apnea with home CPAP Obesity, with a BMI of 41.4 kg/m Plan: The patient was seen and evaluated Labs and medications reviewed Continue on diuretics Anticoagulated with Eliquis No plans for thoracentesis at this time Currently on oxygen at 5 L/min per nasal cannula Titrate down the FiO2 as tolerated Increase her activity as tolerated We will continue to follow I have personally seen and examined the patient, performed the documentation and the assessment and plan as written. Number of minutes spent on the visit: 10 Dictation was produced using [employer] dictation software. Please excuse any grammatical, word or spelling errors.
--- NOTE | 2025-02-04 12:17 | US ---
EXAMINATION TYPE: US abdomen limited DATE OF EXAM: 02/04/2025 Exam done portable COMPARISON: NONE CLINICAL INDICATION: Female, 80 years old with history of ascites; TECHNIQUE: Grayscale imaging of the abdomen for ascites. FINDINGS: No ascites seen IMPRESSION: No evidence for ascites. [facility], , 02/04/2025 12:14 PM
[2025-02-04 12:32] LABS: Glucose,Whole Blood 104 mg/dL (70-110)
[2025-02-04 17:17] LABS: Glucose,Whole Blood 148 mg/dL (70-110)
[2025-02-04] MEDS: FUROSEMIDE 40 MG TAB PO SCH (17:44)
[2025-02-04 20:12] LABS: Glucose,Whole Blood 172 mg/dL (70-110)
[2025-02-05 05:51] LABS: Glucose,Whole Blood 138 mg/dL (70-110)
--- NOTE | 2025-02-05 09:45 | P.PN ---
Subjective Progress Note Date: 02/04/25 This is a 80-year-old female who was recently admitted with CHF exacerbation with cardiology following also noted to have a left pleural effusion. Patient with significant abdominal distention with concerns of possible ascites although underwent ultrasound with no concerns for ascites at this time. Patient will be transition to oral Lasix per cardiology and they have cleared the patient for discharge. Patient reports she has significant lower extremity edema and minimally improved. Patient was evaluated by physical therapy doing relatively well and reports she will be going home and has support at the home. Arrangements for home care being done by social work. Patient also being followed by hematology/oncology and was scheduled to receive IV ferricLit as she receives infusions outpatient and missed her initial dosing due to being hospitalized. Patient did receive 1 dose and per nursing staff patient is refusing her infusion today. Patient will need outpatient follow-up with hematology/oncology on discharge. Plan is for discharge planning in the next 24 hours. Review of systems: Constitutional: No reports of fatigue, fever, or chills Cardiovascular: No reports of chest pain or palpitations Respiratory: No reports of shortness of breath or cough GI: reports of nausea, no reports of vomiting, no diarrhea : No reports of dysuria or retention Neurovascular: reports of generalized weakness, reports of continued lower extremity swelling All medications have been reviewed PHYSICAL EXAMINATION: GENERAL: The patient is alert and oriented x4, Well developed, well nourished. Elderly appearing, morbidly obese HEENT: Pupils are round and equally reacting to light. EOMI. no scleral icterus. No conjunctival pallor. Normocephalic, atraumatic. No pharyngeal erythema. No thyromegaly. CARDIOVASCULAR: S1 and S2 muffled PULMONARY: diminished breath sounds bilaterally with no wheezing or rhonchi noted. ABDOMEN: soft. Nontender on exam. obese. non-distended, normoactive bowel sounds. No palpable organomegaly. MUSCULOSKELETAL: No joint swelling or deformity. EXTREMITIES: No cyanosis, clubbing, or pedal edema. Bilateral lower extremity edema noted with some improvement NEUROLOGICAL: Gross neurological examination did not reveal any focal deficits. Diffuse weakness SKIN: No rashes. Assessment: Congestive heart failure acute exacerbation with acute on chronic diastolic dysfunction, EF 60 to 65% Small to moderate bilateral pleural effusion Acute renal injury likely secondary to diuretic use History of chronic liver disease Paroxysmal atrial fibrillation history Hypertension Diabetes mellitus, type II Morbid obesity with a BMI of 48.3 Gait dysfunction with generalized weakness History of aortic valve replacement, mitral valve replacement and tricuspid repair in May 2024 at the [facility] History of coronary artery disease with previous stenting History of dual-chamber pacemaker [employer] in November 2017 History of moderate to severe pulmonary hypertension History of chronic anemia, iron deficiency, receives infusions outpatient with hematology/oncology Hyperlipidemia history Osteoarthritis Sleep apnea GI prophylaxis DVT prophylaxis Full code Plan: Recommend to continue with current medications and management with cardiology, pulmonary, hematology following Patient was given IV iron x 1 and was scheduled to receive daily as patient missed her outpatient dosing although refused yesterday. Patient will need outpatient follow-up with hematology Patient evaluated by cardiology and has been transition to oral Lasix and will continue metolazone and other cardiac medications and has cleared the patient for discharge Continue to elevate lower extremities while at rest and use Walker wraps or compression stockings for continued lower extremity edema PT/OT therapy to evaluate although patient did well and will not qualify for rehab. Home care being arranged per social work Encouraged increase activity as tolerated Will follow-up on repeat labs and monitor kidney functions closely Probable discharge planning in the next 24 hours Due to multiple complex medical issues, prognosis is guarded The impression and plan of care has been dictated by Deloris Roger, nurse practitioner as directed. Dr. Madan MD I have performed a history and examination and MDM of this patient, discussed the same with the dictator, and agree with the dictator's assessment and plan as written ,documented as a scribe. Based on total visit time, I have performed more than 50% of the visit. Any additional findings or plans will be noted. Objective - Vital Signs Vital signs: Vital Signs Temp 99.4 F 02/05/25 07:32 Pulse 64 02/05/25 07:32 Resp 16 02/05/25 07:32 BP 91/51 02/05/25 07:32 Pulse Ox 99 02/05/25 07:15 FiO2 Intake & Output 02/04/25 02/05/25 02/05/25 18:59 06:59 18:59 Intake Total 354 200 Output Total 400 150 Balance -46 50 Weight 123.8 kg Intake: Oral 354 200 Output: Urine 400 150 Other: Voiding Method Diaper Diaper External Catheter External Catheter # Voids 3 - Labs CBC & Chem 7: 02/04/25 04:15 02/04/25 04:10 Labs: Abnormal Lab Results - Last 24 Hours (Table) 02/04/25 02/04/25 02/05/25 Range/Units 17:15 20:08 05:50 POC Glucose (mg/dL) 148 H 172 H 138 H (70-110) mg/dL
[2025-02-05] MEDS: METOPROLOL SUCCINATE (ER) 50 MG TAB.ER.24H PO SCH (10:08)
[2025-02-05 10:23] LABS: BUN/Creat Ratio 19.79 Ratio (12.00-20.00); Blood Urea Nitrogen 27.7 mg/dL (9.0-27.0); Carbon Dioxide 38.3 mmol/L (21.6-31.8); Chloride 92 mmol/L (96-109); Glucose 135 mg/dL (70-110); Potassium 3.6 mmol/L (3.5-5.5); Sodium 140 mmol/L (135-145)
[2025-02-05 12:26] LABS: Glucose,Whole Blood 167 mg/dL (70-110)
--- NOTE | 2025-02-05 12:36 | P.PN ---
Subjective Progress Note Date: 02/05/25 HISTORY OF PRESENT ILLNESS: This is a 80-year-old female patient of Dr. Watson with past medical history of aortic valve replacement and mitral valve replacement and tricuspid valve repair at [facility] in May 2024, coronary artery disease, dual-chamber pacemaker, paroxysmal atrial fibrillation, hyperlipidemia, diabetes mellitus type 2, hypertension. We have been asked to evaluate the patient for CHF. Patient presented to the emergency center due to increase in edema to the lower extremities, shortness of breath and weight gain. Patient also complains of dyspnea on exertion and able to only walk a few feet at a time. Patient had a hospitalization in October 2024 at which time she presented with hemoglobin of 5.5. EGD EGD and colonoscopy did not show source of bleeding. At some point, patient was resumed back on Eliquis and has been taking it as ordered. Blood pressure 122/65, heart rate 64, pulse ox 100% on CPAP. Patient is seen today in the emergency center waiting for a bed on the cardiac stepdown unit. Patient has been started on IV Lasix 40 mg every 8 hours. -EKG: Atrial paced rhythm 60 bpm -Chest x-ray: Cardiomegaly, pulmonary vascular congestion and bilateral pleural effusions. -Laboratory studies: WBC 5.3, hemoglobin 8.8, platelet count 125. Sodium 135, CO2 35, BUN 25 creatinine 1.05. Troponin negative x 1. proBNP 3830. -Home cardiac medications: Eliquis 5 mg twice daily, Lasix 20 mg twice daily, metoprolol succinate 50 mg twice daily. -Echocardiogram reveals EF of 60 to 65%. Technically difficult study with poor acoustic window. Severe pulmonary hypertension with RVSP 56 mmHg. Status post mitral valve replacement, mild mitral stenosis. Aortic valve replacement. -Cardiovascular surgery 05/20/2024: Tissue AVR, tissue MVR, TV repair -Previous CV surgery 11/06/2018: TAVR. -Cardiac catheterization 2020 with stent placed in the mid D1, stent in the ostial PDA. 01/30/2025 Patient examined this morning at the bedside. Patient currently denies chest pain or pressure. She states she is not feeling very well this morning. She continues to report shortness of breath. Patient is currently on IV Lasix 40 mg every 8 hours. BUN 21. Creatinine 1.2. Urine output over the last 24 hours is 1500 cc. 01/31/2025 Patient examined this morning at bedside. Patient denies chest pain or pressure. She does report shortness of breath although improving. She continues to have significant edema although slowly improving. She remains on IV Lasix. Creatinine today 1.3. Patient's weight is down approximately 5 kg from yesterday. 02/01 Patient seen and examined. Patient is currently maintained on IV Lasix 40 mg every 8 hours. Patient has a negative fluid balance and weights do not appear to be accurate. Patient states the lower extremity edema is improved but she continues to have quite a bit. Repeat blood work reveals hemoglobin 7.8, platelet count 122, sodium 142, potassium 3.2, BUN 22 creatinine 1.3. Echocardiogram reveals EF of 40 to 45%, severe pulmonary hypertension. Difficult to comment on valves. 02/02 Patient seen and examined. Patient has been continued on IV Lasix 40 mg every 8 hours. Zaroxolyn 2.5 mg daily was started yesterday. Lower extremity edema is improved. Blood pressure 116/67, heart rate 65, pulse ox 99% on CPAP. Patient has a negative fluid balance and questionable whether weights are accurate. Repeat blood work reveals hemoglobin 9.4, BUN 25 creatinine 1.2 and potassium 3.6. Repeat chest x-ray reveals pulmonary venous congestion with small effusions, cardiomegaly. 02/03 Patient seen and examined. Yesterday we recommended continuing the IV Lasix every 8 hours and the continuation of metolazone. Patient's breathing status and lower extremity edema continue to improve. She is diuresing well. Not sure that ALICIA's and weights are accurate. Blood pressure 110/58, heart rate 60, pulse ox 100% on BiPAP. Repeat blood work reveals potassium 3.3, BUN 25 creatinine 1.3, hemoglobin 7.9. Potassium will be replaced. CT chest abdomen and pelvis: Cardiomegaly. Small to moderate bilateral pleural effusions and interlobular septal thickening suggestive of pulmonary edema. Diffuse small volume abdominal pelvic ascites and moderate diffuse body wall edema. Cirrhotic liver morphology. Diverticulosis. 02/04 Patient seen and examined. Patient has been maintained on IV Lasix 40 mg every 12 hours as well as metolazone started on this admission at 2.5 mg daily. She has had improvement of her breathing and lower extremity edema. Blood pressure 114/69, heart rate 63, pulse ox 98% on CPAP. Repeat blood work reveals hemoglobin 7.9 and potassium 3.5, BUN 27 creatinine 1.3. 02/05 Patient seen and examined. Yesterday we transition IV Lasix to oral at 80 mg in the morning and 40 mg in the afternoon. She has been continued on metolazone. Weights do not appear to be accurate. Repeat blood work today reveals potassium 3.6, sodium 140, BUN 27 creatinine 1.4. PHYSICAL EXAM: VITAL SIGNS: Reviewed. GENERAL: Well-developed in no acute distress. NECK: Supple. No JVD or thyromegaly LUNGS: Respirations even and unlabored. Lungs essentially clear to auscultation bilaterally, diminished. HEART: Regular rate and rhythm. S1 and S2 heard. EXTREMITIES: No clubbing or cyanosis. Peripheral pulses intact. Bilateral lower extremity edema noted. ASSESSMENT: Acute on chronic diastolic heart failure Small to moderate bilateral pleural effusions History of aortic valve replacement, mitral valve replacement, tricuspid valve repair May 2024 at [facility] Coronary artery disease with prior stenting Dual-chamber pacemaker, [facility] [employer], November 2017 Paroxysmal atrial fibrillation on Eliquis Hyperlipidemia Diabetes mellitus type 2 Hypertension Moderate to severe pulmonary hypertension Thrombocytopenia Chronic anemia with previous workup for GI bleed, both EGD and colonoscopy neg ative for source Morbid obesity with BMI of 51 PLAN: Continue Eliquis Continue metoprolol succinate 50 mg in the morning and decrease the nighttime to 25 mg Farxiga and atorvastatin added Continue oral Lasix 80 mg in the morning and 40 mg in the afternoon Continue metolazone 2.5 mg daily Daily weights, accurate intake and output, and monitoring of kidney function Further recommendations pending patient course. Nurse practitioner note has been reviewed by physician. Signing provider agrees with the documented findings, assessment, and plan of care documented by [employer] as a scribe. Objective - Vital Signs Vital signs: Vital Signs Temp 99.4 F 02/05/25 07:32 Pulse 64 02/05/25 07:32 Resp 16 02/05/25 07:32 BP 91/51 02/05/25 07:32 Pulse Ox 99 02/05/25 07:15 FiO2 Intake & Output 02/04/25 02/05/25 02/05/25 18:59 06:59 18:59 Intake Total 354 200 Output Total 400 150 Balance -46 50 Weight 123.8 kg Intake: Oral 354 200 Output: Urine 400 150 Other: Voiding Method Diaper Diaper External Catheter External Catheter # Voids 3 - Labs CBC & Chem 7: 02/04/25 04:15 02/05/25 06:28 Labs: Abnormal Lab Results - Last 24 Hours (Table) 02/04/25 02/04/25 02/04/25 Range/Units 04:10 04:15 17:15 RBC 2.57 L (4.10-5.20) X 10*6/uL Hgb 7.9 L (12.0-15.0) g/dL Hct 25.8 L (37.2-46.3) % MCV 100.4 H (80.0-97.0) FL MCHC 30.6 L (32.0-37.0) g/dL RDW 17.3 H (11.5-14.5) % Plt Count 128 L (140-440) X 10*3/uL Lymphocytes # 0.46 L (0.90-5.00) X 10*3/uL Chloride 91 L (96-109) mmol/L Carbon Dioxide 36.8 H (21.6-31.8) mmol/L BUN 27.6 H (9.0-27.0) mg/dL Est GFR (CKD-EPI) 42 L (>=60) BUN/Creatinine Ratio 21.23 H (12.00-20.00) Ratio POC Glucose (mg/dL) 148 H (70-110) mg/dL AST 48 H (13-35) U/L Alkaline Phosphatase 149 H (41-126) U/L Albumin 3.6 L (3.8-4.9) g/dL Albumin/Globulin Ratio 1.12 L (1.60-3.17) Ratio 02/04/25 02/05/25 Range/Units 20:08 05:50 RBC (4.10-5.20) X 10*6/uL Hgb (12.0-15.0) g/dL Hct (37.2-46.3) % MCV (80.0-97.0) FL MCHC (32.0-37.0) g/dL RDW (11.5-14.5) % Plt Count (140-440) X 10*3/uL Lymphocytes # (0.90-5.00) X 10*3/uL Chloride (96-109) mmol/L Carbon Dioxide (21.6-31.8) mmol/L BUN (9.0-27.0) mg/dL Est GFR (CKD-EPI) (>=60) BUN/Creatinine Ratio (12.00-20.00) Ratio POC Glucose (mg/dL) 172 H 138 H (70-110) mg/dL AST (13-35) U/L Alkaline Phosphatase (41-126) U/L Albumin (3.8-4.9) g/dL Albumin/Globulin Ratio (1.60-3.17) Ratio
[2025-02-05 12:52] LABS: Amorphous Sediment,Urine Rare /hpf; Appearance,Urine Cloudy (Clear); Bacteria,Urine Occasional /hpf; Bilirubin,Urine Negative (Negative); Blood,Urine Large (Negative); Color,Urine Colorless; Glucose,Urine (UA) 3+ (Negative); Ketones,Urine Negative (Negative); Leukocyte Esterase,Urine Large (Negative); Mucus,Urine Rare /hpf; Nitrite,Urine Negative (Negative); PH, Urine 6.5 (5.0-8.0); Protein,Urine Negative (Negative); RBC,Urine 63 /hpf (0-5); Squamous Epithelial Cell,Urine 6 /hpf (0-4); Urobilinogen,Urine <2.0 mg/dL (<2.0); WBC,Urine >182 /hpf (0-5)
--- NOTE | 2025-02-05 13:50 | P.PN ---
Subjective Progress Note Date: 02/05/25 Patient is 80-year-old female with past medical history significant for valvular heart disease with previous extensive open heart procedure at [facility] done May,. Of note, recent prolonged hospitalization at our facility September through October,. During this time she underwent a left-sided thoracentesis with Dr. Peña, and a total of 850 cc was removed from the left pleural space. Fluid was a transudate based on lights criteria, consistent with heart failure. Pleural fluid cytology negative. She was eventually discharged on a combination of Lasix, Aldactone, and Zaroxolyn. Her gas station clerk is Dr. Watson. She also has past medical history significant for coronary artery disease with previous PCI/stent, dual-chamber pacemaker, paroxysmal atrial fibrillation, diabetes mellitus, hypothyroidism, hypertension, hyperlipidemia, obstructive sleep apnea with home CPAP. Presented back to the emergency department back on 01/28/2025 with a chief complaint of increasing shortness of breath with associated lower extremity edema. Approximately 30 to 40 pound weight gain over the last couple months. Follow-up echocardiogram showing reduced ejection fraction of 40 to 45% with severe pulmonary hypertension. Prior surgical valve replacement/repairs seen but not well-appreciated. She has been receiving Lasix 40 mg 3 times daily. Most recent labs: CBC 5.3, hemoglobin 9.4, platelets 138. CMP: Sodium 141, potassium 3.6, chloride 94, serum bicarb 38, BUN 25.5, creatinine 1.2, glucose 155. Troponin less than 0.012 on admission. NT proBNP was elevated at 3830. Patient currently being seen on the cardiac observation unit. She is on 6 L/min nasal cannula. No particular respiratory distress. Head of the bed is elevated, states she feels short of breath when lying flat. Her home CPAP is at the bedside. She is fluid positive with gross anasarca and pitting edema of the lower extremities. CT of the chest, abdomen, and pelvis without contrast showing cardiomegaly, small to moderate-sized bilateral pleural effusions and interlobular septal thickening suggestive of pulmonary edema. Diffuse small volume abdominal pelvic ascites and moderate diffuse body wall edema/anasarca. Additional incidental findings. Patient currently on Lasix 40 mg 3 times daily. Ultrasound of the chest showing a left-sided 8.4 cm pocket and is marked for possible thoracentesis. Patient is anticoagulated on Eliquis. Vital signs are stable. The patient is seen today February 04, 2025 in follow-up on the regular medical floor. She is awake and alert in no acute distress. Up ambulating to the bathroom. She is maintaining O2 saturations in the 90s on 5 L/min per nasal cannula. Also utilizing her CPAP at night. She is afebrile. Hemodynamically stable. White count 5.5. Hemoglobin 7.9. Platelets 128. Sodium 139. Potassium 3.5. Bicarb 37. BUN 28. Creatinine 1.3. Glucose 106. She is continued on oral diuretics. Anticoagulated with Eliquis. The patient is seen today February 05, 2025 in follow-up on the regular medical floor. She is currently sitting up in bed. Awake and alert in no acute distress. Maintaining O2 saturations 5 L/min per nasal cannula. She is afebrile. Hemodynamically stable. Utilizing her home CPAP at night. Abdominal ultrasound revealed no evidence for ascites. Sodium 140. Potassium 3.6. Bicarb 38. BUN 28. Creatinine 1.4. Glucose 135. Urinalysis cloudy with 3+ glucose high leukocyte esterase high WBCs and occasional bacteria. Oral Lasix 80 mg in the a.m. and 40 mg in the p.m. Also on Zaroxolyn. Anticoagulated with Eliquis. Initiated on ceftriaxone. Objective - Vital Signs Vital signs: Vital Signs Temp 98.9 F 02/05/25 12:01 Pulse 60 02/05/25 12:01 Resp 16 02/05/25 12:01 BP 110/65 02/05/25 12:01 Pulse Ox 100 02/05/25 12:01 FiO2 Intake & Output 02/04/25 02/05/25 02/05/25 18:59 06:59 18:59 Intake Total 354 200 480 Output Total 400 150 Balance -46 50 480 Weight 123.8 kg Intake: Oral 354 200 480 Output: Urine 400 150 Other: Voiding Method Diaper Diaper External Catheter External Catheter External Catheter # Voids 3 - Exam GENERAL EXAM: Alert, obese 80-year-old female, sitting up in bed, on 5 L/min nasal cannula, in no apparent distress. HEAD: Normocephalic and atraumatic EYES: Normal reaction of pupils, equal size. NOSE: Clear with pink turbinates. THROAT: No erythema or exudates. NECK: No masses, no JVD. CHEST: No chest wall deformity. LUNGS: Equal air entry with diminished bibasilar lung sounds and inspiratory director craft center ckles. No conversational dyspnea. CVS: S1 and S2 normal with soft systolic murmur, regular rhythm. No other extra heart sounds ABDOMEN: No hepatosplenomegaly, active bowel sounds, no guarding or rigidity. Gross anasarca. SPINE: No scoliosis or deformity SKIN: No rashes CENTRAL NERVOUS SYSTEM: No focal deficits, tone is normal in all 4 extremities. EXTREMITIES: There is 2-3+ bilateral lower extremity edema. No clubbing, or cyanosis. Peripheral pulses are intact. - Labs CBC & Chem 7: 02/04/25 04:15 02/05/25 06:28 Labs: Abnormal Lab Results - Last 24 Hours (Table) 02/04/25 02/04/25 02/05/25 Range/Units 17:15 20:08 05:50 Chloride (96-109) mmol/L Carbon Dioxide (21.6-31.8) mmol/L BUN (9.0-27.0) mg/dL Est GFR (CKD-EPI) (>=60) Glucose (70-110) mg/dL POC Glucose (mg/dL) 148 H 172 H 138 H (70-110) mg/dL Urine Appearance (Clear) Urine Glucose (UA) (Negative) Urine Blood (Negative) Ur Leukocyte Esterase (Negative) Urine RBC (0-5) /hpf Urine WBC (0-5) /hpf Urine WBC Clumps (None) /hpf Ur Squamous Epith Cells (0-4) /hpf Amorphous Sediment (None) /hpf Urine Bacteria (None) /hpf Urine Mucus (None) /hpf 02/05/25 02/05/25 02/05/25 Range/Units 06:28 12:25 12:35 Chloride 92 L (96-109) mmol/L Carbon Dioxide 38.3 H (21.6-31.8) mmol/L BUN 27.7 H (9.0-27.0) mg/dL Est GFR (CKD-EPI) 38 L (>=60) Glucose 135 H (70-110) mg/dL POC Glucose (mg/dL) 167 H (70-110) mg/dL Urine Appearance Cloudy H (Clear) Urine Glucose (UA) 3+ H (Negative) Urine Blood Large H (Negative) Ur Leukocyte Esterase Large H (Negative) Urine RBC 63 H (0-5) /hpf Urine WBC >182 H (0-5) /hpf Urine WBC Clumps Few H (None) /hpf Ur Squamous Epith Cells 6 H (0-4) /hpf Amorphous Sediment Rare H (None) /hpf Urine Bacteria Occasional H (None) /hpf Urine Mucus Rare H (None) /hpf Assessment and Plan Assessment: Acute on chronic dyspnea, secondary to acute exacerbation of systolic congestive heart failure and valvular heart disease. Small to moderate sized bilateral pleural effusions Gross anasarca. Abdominal ultrasound reveals no evidence of ascites Acute hypoxemic respiratory failure, currently on 6 L/min nasal cannula, secondary to above History of valvular heart disease with previous aortic valve replacement, mitral valve replacement, and tricuspid valve repair, performed at the [facility] May, Dual-chamber pacemaker insertion, paced rhythm Paroxysmal A-fib maintained on anticoagulation with Eliquis Coronary artery disease with previous coronary stenting Diabetes mellitus, insulin-dependent History of hypothyroidism History of hyperlipidemia Hypertension Chronic anemia, hemoglobin stable at 9.4 g/dL Chronic metabolic alkalosis Severe pulmonary hypertension, group 2 History of obstructive sleep apnea with home CPAP Obesity, with a BMI of 48.3 kg/m Plan: The patient was seen and evaluated Labs and medications reviewed Continued on diuretics Anticoagulated with Eliquis Titrate down the FiO2 as tolerated Increase her activity as tolerated We will continue to follow I have personally seen and examined the patient, performed the documentation and the assessment and plan as written. Number of minutes spent on the visit: 10 Dictation was produced using [place] [employer] dictation software. Please excuse any grammatical, word or spelling errors.
[2025-02-05 14:35] VITALS: BP 100/52; PULSE 62; RESP 20; TEMP 99
--- NOTE | 2025-02-05 16:41 | P.PN ---
Subjective Progress Note Date: 02/05/25 No acute events overnight. Pt denies any acute bleeding episodes. CBC from yesterday showing stable hgb at 7.9. Plt 128,000 Objective - Vital Signs Vital signs: Vital Signs Temp 98.9 F 02/05/25 12:01 Pulse 60 02/05/25 12:01 Resp 16 02/05/25 12:01 BP 110/65 02/05/25 12:01 Pulse Ox 100 02/05/25 12:01 FiO2 Intake & Output 02/04/25 02/05/25 02/05/25 18:59 06:59 18:59 Intake Total 354 200 480 Output Total 400 150 Balance -46 50 480 Weight 123.8 kg Intake: Oral 354 200 480 Output: Urine 400 150 Other: Voiding Method Diaper Diaper External Catheter External Catheter External Catheter # Voids 3 - Constitutional General appearance: Present: no acute distress - EENT Eyes: Present: anicteric sclerae, EOMI ENT: Present: hearing grossly normal - Respiratory Details: breathing is even and unlabored - Cardiovascular Details: well perfused - Integumentary Integumentary: Absent: cyanotic, jaundiced - Psychiatric Psychiatric: Present: A&O x's 3 - Labs CBC & Chem 7: 02/04/25 04:15 02/05/25 06:28 Labs: Abnormal Lab Results - Last 24 Hours (Table) 02/04/25 02/04/25 02/05/25 Range/Units 17:15 20:08 05:50 Chloride (96-109) mmol/L Carbon Dioxide (21.6-31.8) mmol/L BUN (9.0-27.0) mg/dL Est GFR (CKD-EPI) (>=60) Glucose (70-110) mg/dL POC Glucose (mg/dL) 148 H 172 H 138 H (70-110) mg/dL 02/05/25 Range/Units 06:28 Chloride 92 L (96-109) mmol/L Carbon Dioxide 38.3 H (21.6-31.8) mmol/L BUN 27.7 H (9.0-27.0) mg/dL Est GFR (CKD-EPI) 38 L (>=60) Glucose 135 H (70-110) mg/dL POC Glucose (mg/dL) (70-110) mg/dL Assessment and Plan (1) CHF (congestive heart failure) Status: Acute Code(s): I50.9 - HEART FAILURE, UNSPECIFIED SNOMED Code(s): 40431881 (2) Iron deficiency anemia Status: Chronic Priority: Medium Code(s): D50.9 - IRON DEFICIENCY ANEMIA, UNSPECIFIED SNOMED Code(s): 23501044 Plan: Iron deficiency anemia -Patient has been seen, evaluated, assessed and worked up by hematology about 4 weeks ago. 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 She was maintaining a hemoglobin between 8 and 9 on recent checks in the office. She was currently receiving additional doses of IV iron outpatient. Will continue while inpatient. Will reschedule her IV iron outpatient. Discontinue oral iron, does not provide enough iron supplementation at the cost of side effects. -Baseline hemoglobin 8-9 range at this time. Also contributing to patient's anemia is felt to be a component of chronic kidney disease. Pending adequate iron supplementation before considering the addition of WENDY. -Patient will stay on follow-up as already scheduled with Dr. Duenas.
[2025-02-05] MEDS ORDERED: METOPROLOL SUCCINATE (ER) 25 MG TAB.ER.24H PO SCH (21:00)
--- NOTE | 2025-02-07 15:05 | P.DS ---
Providers Date of admission: 01/28/25 14:50 Expected date of discharge: 02/05/25 Attending physician: Maye Hager Consults: 01/28/25 14:49 Consult Physician Routine Consulting Provider: Caitie Watson Consult Reason/Comments: hf Do you want consulting provider notified?: Yes 02/02/25 15:10 Consult Physician Routine Consulting Provider: Liana Ledbetter Consult Reason/Comments: pl effusion left Do you want consulting provider notified?: Yes 02/03/25 09:50 Consult Physician Urgent Consulting Provider: Ricardo Duenas Consult Reason/Comments: chronic anemia, receives iron infusions outpatient Do you want consulting provider notified?: Yes Primary care physician: Ibrahima Hua MD Hospital Course: Final diagnosis Congestive heart failure acute exacerbation with acute on chronic diastolic dysfunction, EF 60 to 65% Small to moderate bilateral pleural effusion Acute renal injury likely secondary to diuretic use Acute urinary tract infection, present on admission with culture showing E. coli History of chronic liver disease Paroxysmal atrial fibrillation history Hypertension Diabetes mellitus, type II Morbid obesity with a BMI of 48.3 Gait dysfunction with generalized weakness History of aortic valve replacement, mitral valve replacement and tricuspid repair in May 2024 at the [facility] History of coronary artery disease with previous stenting History of dual-chamber pacemaker [facility] in November 2017 History of moderate to severe pulmonary hypertension History of chronic anemia, iron deficiency, receives infusions outpatient with hematology/oncology Hyperlipidemia history Osteoarthritis Sleep apnea GI prophylaxis DVT prophylaxis Full code Discharge disposition Patient is being discharged in a stable condition with guarded prognosis to home with home care. Patient will follow-up with Dr. Hua in the outpatient setting upon discharge. Patient is to continue with current medications including antibiotics for short course and outpatient follow-up with hematology as well as cardiology as scheduled. Total time taken is greater than 35 minutes. Hospital course This is a 80-year-old female who was recently admitted with CHF exacerbation b eing closely monitored maintained on IV diuresis. Patient showing some clinical improvement slowly and has transition to oral Lasix for discharge with cardiology following recommending outpatient follow-up. Patient noted to have pain and burning and frequency with urination and cultures finalized with E. coli with sensitivities. Will continue on Ceftin on discharge and recommend outpatient follow-up with primary care provider as well as cardiology. Patient does take Farxiga and is a diabetic with frequent urinary tract infections inform patient they should discuss this with cardiology and possibly adjust medications. Patient has been cleared by consultations. Please refer to consultation notes for further HPI. Patient showing weakness evaluated by physical therapy for possible ECF although recommending home with home care. Patient reports does have support in the home. Currently no reports of chest pain, shortness of breath, or palpitations. Patient is afebrile. No reports of nausea or vomiting and patient is tolerating diet. Patient will be discharged home today. Guarded prognosis. Physical exam: Gen: This is a 80-year-old female who is awake, alert and oriented x 3, well- developed, elderly appearing, morbidly obese HEENT: Head is atraumatic, normocephalic. Pupils equal, round. Sclerae is anicteric. NECK: Supple. No JVD. No lymphadenopathy. No thyromegaly. LUNGS: Diminished breath sounds bilaterally otherwise clear to auscultation. No wheezes or rhonchi. No intercostal retractions. HEART: Regular rate and rhythm. No murmur. ABDOMEN: Soft. Obese. Bowel sounds are present. No masses. No tenderness. EXTREMITIES: No pedal edema. No calf tenderness. Mild bilateral lower extremity swelling with edema noted, appears somewhat chronic as well NEUROLOGICAL: Patient is awake, alert and oriented x3. Cranial nerves 2 through 12 are grossly intact. Please refer to medication reconciliation sheet for a list of medications. The impression and plan of care has been dictated by Deloris Roger, Nurse Practitioner as directed. Dr. Madan MD I have performed a history and examination and MDM of this patient, discussed the same with the dictator, and agree with the dictator's assessment and plan as written ,documented as a scribe. Based on total visit time, I have performed more than 50% of the visit. Patient Condition at Discharge: Stable Plan - Discharge Summary Discharge Rx Participant: No New Discharge Prescriptions: New cefuroxime axetiL [Ceftin] 500 mg PO BID 5 Days #10 tab Dapagliflozin Propanediol [Farxiga] 10 mg PO DAILY #30 tab Metoprolol Succinate (ER) [Toprol XL] 50 mg PO DAILY tab Furosemide [Lasix] 40 mg PO 1600 #30 tab Furosemide [Lasix] 80 mg PO DAILY #30 tab Atorvastatin [Lipitor] 40 mg PO HS #30 tab Metoprolol Succinate (ER) [Toprol XL] 25 mg PO HS #30 tab Acetaminophen Tab [Tylenol] 650 mg PO Q6HR PRN tab PRN Reason: Fever And/ Or Pain metOLazone [Zaroxolyn] 2.5 mg PO DAILY #30 tab Continue Levothyroxine Sodium [Levoxyl] 175 mcg PO DAILY Apixaban [Eliquis] 5 mg PO BID #0 Calcium Carbonate [Calcium] 600 mg PO BID FLUoxetine HCL [PROzac] 10 mg PO DAILY Insulin Glargine,Hum.rec.anlog [Lantus Solostar Pen] 20 units SQ HS Insulin Aspart [NovoLOG Flexpen] 40 units SQ TID-W/MEALS Discontinued Furosemide [Lasix] 20 mg PO BID Metoprolol Succinate (ER) [Toprol XL] 50 mg PO BID #60 tab Discharge Medication List Levothyroxine Sodium [Levoxyl] 175 mcg PO DAILY 10/25/20 [History] FLUoxetine HCL [PROzac] 10 mg PO DAILY 10/08/24 [History] Insulin Aspart [NovoLOG Flexpen] 40 units SQ TID-W/MEALS 10/08/24 [History] Insulin Glargine,Hum.rec.anlog [Lantus Solostar Pen] 20 units SQ HS 10/08/24 [History] Apixaban [Eliquis] 5 mg PO BID #0 10/30/24 [Rx] Calcium Carbonate [Calcium] 600 mg PO BID 01/28/25 [History] Acetaminophen Tab [Tylenol] 650 mg PO Q6HR PRN tab 02/05/25 [Rx] Atorvastatin [Lipitor] 40 mg PO HS #30 tab 02/05/25 [Rx] Dapagliflozin Propanediol [Farxiga] 10 mg PO DAILY #30 tab 02/05/25 [Rx] Furosemide [Lasix] 40 mg PO 1600 #30 tab 02/05/25 [Rx] Furosemide [Lasix] 80 mg PO DAILY #30 tab 02/05/25 [Rx] Metoprolol Succinate (ER) [Toprol XL] 25 mg PO HS #30 tab 02/05/25 [Rx] Metoprolol Succinate (ER) [Toprol XL] 50 mg PO DAILY tab 02/05/25 [Rx] cefuroxime axetiL [Ceftin] 500 mg PO BID 5 Days #10 tab 02/05/25 [Rx] metOLazone [Zaroxolyn] 2.5 mg PO DAILY #30 tab 02/05/25 [Rx] Follow up Appointment(s)/Referral(s): Liana Ledbetter MD [STAFF PHYSICIAN] - 1 Week Ricardo Duenas [STAFF PHYSICIAN] - 02/17/25 1:30 pm [facility], [NON-STAFF] - As Needed Caitie Watson MD [STAFF PHYSICIAN] - 1 Week Ibrahima Hua MD [Primary Care Provider] - 1-2 days Patient Instructions/Handouts: Heart Failure (DC), Urinary Tract Infection in Women (DC) Activity/Diet/Wound Care/Special Instructions: Activity limited until follow-up Follow-up with primary care provider on discharge Continue taking medications as prescribed Follow-up with cardiology in 1 week Follow-up with hematology outpatient Discussed with physician practice market manager regarding continuing Farxiga as you have been having recurrent urinary tract infections and this is sometimes a contraindication in this medication especially with those that are diabetic Will follow-up on urine cultures and continue taking antibiotics until finished. If urine cultures have changed, you will be contacted regarding medication adjustments Discharge Disposition: HOME WITH HOME HEALTH SERVICES
== END 2025-02-05 15:36 | disposition home health service (06) | DRG 291 ==
LOC: EC 12:50 → 1SOBS 14:50 → 3SCARD 21:33 → 6NMEDSUR 01-29 13:09
PROVIDERS: ADMIT Hospitalist; ATTEND Hospitalist
DX: I13.0 Hypertensive heart and chronic kidney disease with heart failure and stage 1 through stage 4 chronic kidney disease, or unspecified chronic kidney disease (principal); I50.43 Acute on chronic combined systolic (congestive) and diastolic (congestive) heart failure; J96.01 Acute respiratory failure with hypoxia; E87.3 Alkalosis; D69.6 Thrombocytopenia, unspecified; I27.22 Pulmonary hypertension due to left heart disease; D63.1 Anemia in chronic kidney disease; Z68.43 Body mass index [BMI] 50.0-59.9, adult; E11.22 Type 2 diabetes mellitus with diabetic chronic kidney disease; E89.0 Postprocedural hypothyroidism; Z95.2 Presence of prosthetic heart valve; K76.9 Liver disease, unspecified; N18.9 Chronic kidney disease, unspecified; R18.8 Other ascites; N17.9 Acute kidney failure, unspecified; N39.0 Urinary tract infection, site not specified; I48.0 Paroxysmal atrial fibrillation; E66.01 Morbid (severe) obesity due to excess calories; Z79.4 Long term (current) use of insulin; D50.9 Iron deficiency anemia, unspecified; I25.10 Atherosclerotic heart disease of native coronary artery without angina pectoris; K55.20 Angiodysplasia of colon without hemorrhage; D53.9 Nutritional anemia, unspecified; Z79.01 Long term (current) use of anticoagulants; Z28.21 Immunization not carried out because of patient refusal; H91.90 Unspecified hearing loss, unspecified ear; T50.2X5A Adverse effect of carbonic-anhydrase inhibitors, benzothiadiazides and other diuretics, initial encounter; M19.90 Unspecified osteoarthritis, unspecified site; E89.2 Postprocedural hypoparathyroidism; G47.30 Sleep apnea, unspecified; E78.5 Hyperlipidemia, unspecified; Z79.82 Long term (current) use of aspirin; Z95.0 Presence of cardiac pacemaker; Z87.440 Personal history of urinary (tract) infections; Z95.5 Presence of coronary angioplasty implant and graft; Z96.693 Finger-joint replacement, bilateral; Z79.890 Hormone replacement therapy; Z96.653 Presence of artificial knee joint, bilateral; Z87.01 Personal history of pneumonia (recurrent)
CPT/HCPCS: 36415; 71045; 71046; 71250; 74176; 76604; 76705; 80048; 80053; 81001; 82728; 83540; 83550; 83605; 83735; 83880; 84132; 84484; 85025; 85610; 85730; 87077; 87086; 87186; 93005; 93306; 94660; 94760; 96374; 96376; 99285

== ENCOUNTER 2025-02-13 14:10 | Inpatient (IN) | payer MEDICARE ==
--- NOTE | 2025-02-13 14:33 | ED ---
SOB HPI - General Source: patient, RN notes reviewed, old records reviewed Mode of arrival: ambulatory Limitations: no limitations - History of Present Illness MD Complaint: shortness of breath, cough -: days(s) Severity: moderate Severity scale (1-10): 4 Consistency: constant Improves With: nothing Worsens With: nothing Known History Of: COPD, congestive heart failure Context: recent URI, anxiety, recent illness Associated Symptoms: denies other symptoms Treatments Prior to Arrival: none <Geovany Hutchinson - Last Filed: 02/16/25 13:17> - General Source: patient Mode of arrival: ambulatory Limitations: no limitations <Katie Hatch - Last Filed: 02/20/25 20:39> - General Chief Complaint: Shortness of Breath Stated Complaint: SOB Time Seen by Provider: 02/13/25 14:15 - History of Present Illness Initial Comments: This is a 80 female to ER with atrial fibrillation COPD and recent valve surgery and replacement, patient has severe shortness of breath here in the ER with recent exposure to coronavirus (Geovany Hutchinson) 80-year-old female past medical history of A-fib on Eliquis, COPD on 5 L home O2, sleep apnea on BiPAP who presents to the emergency department for worsening shortness of breath. Patient was recently hospitalized from the to the for CHF exacerbation. States that she has been doing well at home and has been watching her water and salt intake. She denies any worsening swelling in her legs. Her daughter got sick with COVID and subsequently she took a test yesterday and was found to be COVID-positive. She is not currently on any steroids. Denies any chest pain. She did take a breathing treatment at home and was provided an albuterol treatment and a DuoNeb treatment by EMS. Oxygen saturations were 92% on her home oxygen. She denies ripping or tearing sensation to her back. No weight gain. No abdominal pain. No nausea or vomiting. No other alleviating, precipitating or modifying factors no other alleviating, precipitating or modifying factors (Katie Hatch) - Related Data Home Medications Medication Instructions Recorded Confirmed Levothyroxine Sodium [Levoxyl] 175 mcg PO DAILY 10/25/20 02/13/25 FLUoxetine HCL [PROzac] 10 mg PO DAILY 10/08/24 02/13/25 Insulin Aspart [NovoLOG Flexpen] 40 units SQ TID-W/MEALS 10/08/24 02/13/25 Insulin Glargine,Hum.rec.anlog 20 units SQ HS 10/08/24 02/13/25 [Lantus Solostar Pen] Calcium Carbonate [Calcium] 600 mg PO BID 01/28/25 02/13/25 Furosemide [Lasix] 40 mg PO DAILY@1600 02/13/25 02/13/25 Previous Rx's Medication Instructions Recorded Apixaban [Eliquis] 5 mg PO BID #0 10/30/24 Acetaminophen Tab [Tylenol] 650 mg PO Q6HR PRN tab 02/05/25 Atorvastatin [Lipitor] 40 mg PO HS #30 tab 02/05/25 Dapagliflozin Propanediol [Farxiga] 10 mg PO DAILY #30 tab 02/05/25 Furosemide [Lasix] 80 mg PO DAILY #30 tab 02/05/25 Metoprolol Succinate (ER) [Toprol 25 mg PO HS #30 tab 02/05/25 XL] Metoprolol Succinate (ER) [Toprol 50 mg PO DAILY tab 02/05/25 XL] metOLazone [Zaroxolyn] 2.5 mg PO DAILY #30 tab 02/05/25 Allergies Allergy/AdvReac Type Severity Reaction Status Date / Time nitrofurantoin Allergy Rash/Hives Verified 02/13/25 17:52 macrocrystalline [From Macrodantin] phenazopyridine HCl Allergy Rash/Hives Verified 02/13/25 17:52 [From Pyridium] Review of Systems ROS Other: All systems not noted in ROS Statement are negative. <Geovany Hutchinson - Last Filed: 02/16/25 13:17> ROS Other: All systems not noted in ROS Statement are negative. <Katie Hatch - Last Filed: 02/20/25 20:39> ROS Statement: Those systems with pertinent positive or pertinent negative responses have been documented in the HPI. 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 HAD THYROID AND PARATHYROID REMOVAL. TOTAL LEFT KNEE REPLACEMENT, CATARACT RT EYE, CATARACT LEFT EYE SURGERY ,COLONOSCOPY, TVAR- 11/2018 , Aortic valve replacement 10/2018 Past Anesthesia/Blood Transfusion Reactions: No Reported Reaction Type of Cardiac Device: Permanent Pacemaker Device Placement Date:: PACEMAKER NOV 2017. Past Psychological History: No Psychological Hx Reported Smoking Status: Never smoker - Past Family History Daughter(s) Family Medical History: Deep Vein Thrombosis (DVT) Sister(s) Family Medical History: Cancer Additional Family Medical History / Comment(s): BREAST CANCER <Katie Hatch - Last Filed: 02/20/25 20:39> General Exam Limitations: no limitations General appearance: alert, in distress, obese Head exam: Present: atraumatic, normocephalic, normal inspection Eye exam: Present: normal appearance, PERRL, EOMI. Absent: scleral icterus, conjunctival injection, periorbital swelling ENT exam: Present: normal exam, mucous membranes moist Neck exam: Present: normal inspection. Absent: tenderness, meningismus, lymphadenopathy Respiratory exam: Present: normal lung sounds bilaterally, wheezes, decreased breath sounds, prolonged expiratory. Absent: respiratory distress, rales, rhonchi, stridor Cardiovascular Exam: Present: regular rate, normal rhythm, normal heart sounds. Absent: systolic murmur, diastolic murmur, rubs, gallop, clicks GI/Abdominal exam: Present: soft, normal bowel sounds. Absent: distended, tenderness, guarding, rebound, rigid Extremities exam: Present: normal inspection, full ROM, normal capillary refill. Absent: tenderness, pedal edema, joint swelling, calf tenderness Back exam: Present: normal inspection Neurological exam: Present: alert, oriented X3, CN II-XII intact Psychiatric exam: Present: normal affect, normal mood Skin exam: Present: warm, dry, intact, normal color. Absent: rash <Geovany Hutchinson - Last Filed: 02/16/25 13:17> Limitations: no limitations General appearance: alert, in no apparent distress Head exam: Present: atraumatic, normocephalic, normal inspection Eye exam: Present: normal appearance, PERRL, EOMI. Absent: scleral icterus, conjunctival injection, periorbital swelling ENT exam: Present: normal exam, mucous membranes moist Neck exam: Present: normal inspection. Absent: tenderness, meningismus, lymphadenopathy Respiratory exam: Present: rales, decreased breath sounds. Absent: respiratory distress, wheezes, rhonchi, stridor Cardiovascular Exam: Present: regular rate, irregular rhythm, normal heart sounds. Absent: systolic murmur, diastolic murmur, rubs, gallop, clicks GI/Abdominal exam: Present: soft, normal bowel sounds. Absent: distended, t enderness, guarding, rebound, rigid Extremities exam: Present: normal inspection, full ROM, normal capillary refill. Absent: tenderness, pedal edema, joint swelling, calf tenderness Back exam: Present: normal inspection Neurological exam: Present: alert, oriented X3, CN II-XII intact Psychiatric exam: Present: normal affect, normal mood Skin exam: Present: warm, dry, intact, normal color. Absent: rash <Katie Hatch A - Last Filed: 02/20/25 20:39> Course <Geovany Hutchinson B - Last Filed: 02/16/25 13:17> Vital Signs 02/13/25 02/13/25 02/13/25 14:13 17:12 18:05 Temperature 98.6 F Pulse Rate 87 79 71 Pulse Rate [ [employer]us ] Respiratory 18 20 Rate Blood Pressure 145/71 131/51 Blood Pressure [Right Arm] O2 Sat by Pulse 100 95 Oximetry 02/13/25 02/13/25 02/14/25 18:16 23:00 02:22 Temperature Pulse Rate 73 71 72 Pulse Rate [ [employer] ] Respiratory 18 18 Rate Blood Pressure 163/61 127/61 Blood Pressure [Right Arm] O2 Sat by Pulse 95 90 L Oximetry 02/14/25 02/14/25 02/14/25 04:25 05:42 06:00 Temperature Pulse Rate 67 65 68 Pulse Rate [ [employer] ] Respiratory 18 16 18 Rate Blood Pressure 122/52 116/38 116/54 Blood Pressure [Right Arm] O2 Sat by Pulse 95 92 L 97 Oximetry 02/14/25 02/14/25 02/14/25 08:20 12:00 13:27 Temperature 97.6 F 97.6 F Pulse Rate 61 Pulse Rate [ 71 60 [employer] ] Respiratory 18 20 20 Rate Blood Pressure 137/55 Blood Pressure 133/46 114/50 [Right Arm] O2 Sat by Pulse 95 91 L 96 Oximetry 02/14/25 02/14/25 02/15/25 16:00 20:00 00:00 Temperature 97.8 F 98.7 F 98.7 F Pulse Rate Pulse Rate [ 61 60 61 [employer] ] Respiratory 18 20 20 Rate Blood Pressure Blood Pressure 116/43 110/45 105/56 [Right Arm] O2 Sat by Pulse 97 90 L 95 Oximetry 02/15/25 02/15/25 02/15/25 04:00 08:34 14:13 Temperature 98.7 F 98.2 F 98.0 F Pulse Rate 67 62 Pulse Rate [ 62 [employer] ] Respiratory 20 22 Rate Blood Pressure 111/57 112/62 Blood Pressure 102/53 [Right Arm] O2 Sat by Pulse 94 L 98 100 Oximetry 02/15/25 02/15/25 02/15/25 17:29 21:03 22:23 Temperature 100.1 F H 98.7 F 98.5 F Pulse Rate 63 62 Pulse Rate [ 63 [employer] ] Respiratory 21 19 20 Rate Blood Pressure 94/40 120/60 Blood Pressure 157/69 [Right Arm] O2 Sat by Pulse 97 96 96 Oximetry - Reevaluation(s) Reevaluation #1: 02/13/25 17:32 Medical records reviewed (Geovany Hutchinson) Reevaluation #2: 02/13/25 17:32 Patient still very short of breath here in the emergency department (Geovany Hutchinson) Reevaluation #3: 02/13/25 17:32 Patient informed of results and questions answered (Geovany Hutchinson) Reevaluation #4: Differential Dyspnea: Coronary syndrome, arrhythmia, tamponade, asthma, COPD, pulmonary embolism, pneumonia, pneumothorax, pulmonary effusion, anaphylaxis, diabetic ketoacidosis, flailed chest, pulmonary contusion, diaphragmatic rupture, anemia, neuromuscular, this is not meant to be an all-inclusive list. (Estuardo Hutchinsone Loyd) - Consultations Consultation #1: Spoke with [facility] who agrees to admit this patient (JasperGeovany Harp) Medical Decision Making - Lab Data Result diagrams: 02/16/25 07:14 02/16/25 07:14 - Radiology Data Radiology results: report reviewed (Chest x-ray is positive for CHF), image reviewed <JenniferriazGeovany - Last Filed: 02/16/25 13:17> - Lab Data Result diagrams: 02/20/25 06:43 02/20/25 06:43 <Katie Hatch - Last Filed: 02/20/25 20:39> - Medical Decision Making 80 female to the ER for evaluation of severe COPD, found to have heart failure here in the emergency department as well as new diagnosis coronavirus. Patient admitted for breathing treatments, diuresis and supportive care (JenniferriazGeovany B) Was pt. sent in by a medical professional or institution (, PA, FISHING GUIDE, urgent care, hospital, or [facility]...) When possible be specific @ -No Did you speak to anyone other than the patient for history (EMS, parent, family, police, friend...)? What history was obtained from this source @ -Spoke with EMS for history Did you review nursing and triage notes (agree or disagree)? Why? @ -I reviewed and agree with nursing and triage notes Were old charts reviewed (outside hosp., previous admission, EMS record, old EKG, old radiological studies, urgent care reports/EKG's, [facility] records)? Report findings @ -I reviewed the discharge summary from February 05 Differential Diagnosis (chest pain, altered mental status, abdominal pain women, abdominal pain men, vaginal bleeding, weakness, fever, dyspnea, syncope, heada katherine, dizziness, GI bleed, back pain, seizure, CVA, palpatations, mental health, musculoskeletal)? @ -Differential Dyspnea: Coronary syndrome, arrhythmia, tamponade, asthma, COPD, pulmonary embolism, pneumonia, pneumothorax, pulmonary effusion, anaphylaxis, diabetic ketoacidosis, flailed chest, pulmonary contusion, diaphragmatic rupture, anemia, neuromuscular, this is not meant to be an all-inclusive list. EKG interpreted by me (3pts min.). @ -Yes and demonstrates ventricular rate of 77. QRS 165. QTc of 461. No acute ST segment elevations or depressions X-rays interpreted by me (1pt min.). @ -Yes which continues to demonstrate signs of heart failure CT interpreted by me (1pt min.). @ -None done U/S interpreted by me (1pt. min.). @ -None done What testing was considered but not performed or refused? (CT, X-rays, U/S, labs)? Why? @ -None What meds were considered but not given or refused? Why? @ -None Did you discuss the management of the patient with other professionals (pro fessionals i.e. , PA, FISHING GUIDE, lab, RT, psych nurse, social work associate, supervisor correspondence section, teacher, licensed mortgage loan officer, case management social worker)? Give summary @ -Spoke with Dr. Hutchinson who will manage the disposition of the patient as we are awaiting blood work results Was smoking cessation discussed for >3mins.? @ -No Was critical care preformed (if so, how long)? @ -No Were there social determinants of health that impacted care today? How? (Homelessness, low income, unemployed, alcoholism, drug addiction, transportation, low edu. Level, literacy, decrease access to med. care, senior care, rehab)? @ -No Was there de-escalation of care discussed even if they declined (Discuss DNR or withdrawal of care, Hospice)? DNR status @ -No What co-morbidities impacted this encounter? (DM, HTN, Smoking, COPD, CAD, Cancer, CVA, ARF, Chemo, Hep., AIDS, mental health diagnosis, sleep apnea, morbid obesity)? @ -COPD Was patient admitted / discharged? Hospital course, mention meds given and route, prescriptions, significant lab abnormalities, going to OR and other pertinent info. @ -Upon arrival patient seen and evaluated in bed 19. Thorough history and physical exam is performed. IV access was established and laboratory studies are conducted. Chest x-ray was performed. Patient is signed out to Dr. Hutchinson pending laboratory studies Undiagnosed new problem with uncertain prognosis? @ -No Drug Therapy requiring intensive monitoring for toxicity (Heparin, Nitro, Insulin, Cardizem)? @ -No Were any procedures done? @ -No Diagnosis/symptom? @ -Acute respiratory insufficiency, chronic respiratory failure, acute exacerba tion of CHF, COVID infection Acute, or Chronic, or Acute on Chronic? @ -Acute on chronic Uncomplicated (without systemic symptoms) or Complicated (systemic symptoms)? @ -Complicated Side effects of treatment? @ -No Exacerbation, Progression, or Severe Exacerbation? @ -Yes Poses a threat to life or bodily function? How? (Chest pain, [place], [place], pneumonia, PE, COPD, DKA, ARF, appy, cholecystitis, CVA, Diverticulitis, Homicidal, Suicidal, threat to staff... and all critical care pts) @ -No (Katie Hatch) - Lab Data Lab Results 02/13/25 02/13/25 02/13/25 Range/Units 14:27 14:27 14:27 WBC 5.2 (3.8-10.6) k/uL RBC 3.14 L (3.80-5.40) m/uL Hgb 9.7 L (11.4-16.0) gm/dL Hct 30.3 L (34.0-46.0) % MCV 96.6 D (80.0-100.0) fL MCH 31.0 (25.0-35.0) pg MCHC 32.1 (31.0-37.0) g/dL RDW 16.5 H (11.5-15.5) % Plt Count 182 (150-450) k/uL MPV 7.7 Neutrophils % 80 % Lymphocytes % 12 % Monocytes % 4 % Eosinophils % 2 % Basophils % 0 % Neutrophils # 4.2 (1.3-7.7) k/uL Lymphocytes # 0.6 L (1.0-4.8) k/uL Monocytes # 0.2 (0-1.0) k/uL Eosinophils # 0.1 (0-0.7) k/uL Basophils # 0.0 (0-0.2) k/uL Hypochromasia Marked Anisocytosis Slight PT 11.8 (10.0-12.5) sec INR 1.1 (<1.2) APTT 23.9 (22.0-30.0) sec Sodium 134 L (137-145) mmol/L Potassium 4.0 (3.5-5.1) mmol/L Chloride 86 L (98-107) mmol/L Carbon Dioxide 37 H (22-30) mmol/L Anion Gap 8 mmol/L BUN 38 H (7-17) mg/dL Creatinine 1.16 H (0.52-1.04) mg/dL Est GFR (CKD-EPI)AfAm 52 (>60 ml/min/1.73 sqM) Est GFR (CKD-EPI)NonAf 45 (>60 ml/min/1.73 sqM) Glucose 229 H (74-99) mg/dL Plasma Lactic Acid Jez (0.7-2.0) mmol/L Calcium 9.0 (8.4-10.2) mg/dL Total Bilirubin 0.8 (0.2-1.3) mg/dL AST 43 H (14-36) U/L ALT 24 (4-34) U/L Alkaline Phosphatase 152 H (38-126) U/L Troponin I (0.000-0.034) ng/mL NT-Pro-B Natriuret Pep 4390 pg/mL Total Protein 7.4 (6.3-8.2) g/dL Albumin 3.8 (3.5-5.0) g/dL Influenza Type A (PCR) (Not Detectd) Influenza Type B (PCR) (Not Detectd) RSV (PCR) (Not Detectd) SARS-CoV-2 (PCR) (Not Detectd) 02/13/25 02/13/25 02/13/25 Range/Units 14:27 14:27 14:28 WBC (3.8-10.6) k/uL RBC (3.80-5.40) m/uL Hgb (11.4-16.0) gm/dL Hct (34.0-46.0) % MCV (80.0-100.0) fL MCH (25.0-35.0) pg MCHC (31.0-37.0) g/dL RDW (11.5-15.5) % Plt Count (150-450) k/uL MPV Neutrophils % % Lymphocytes % % Monocytes % % Eosinophils % % Basophils % % Neutrophils # (1.3-7.7) k/uL Lymphocytes # (1.0-4.8) k/uL Monocytes # (0-1.0) k/uL Eosinophils # (0-0.7) k/uL Basophils # (0-0.2) k/uL Hypochromasia Anisocytosis PT (10.0-12.5) sec INR (<1.2) APTT (22.0-30.0) sec Sodium (137-145) mmol/L Potassium (3.5-5.1) mmol/L Chloride (98-107) mmol/L Carbon Dioxide (22-30) mmol/L Anion Gap mmol/L BUN (7-17) mg/dL Creatinine (0.52-1.04) mg/dL Est GFR (CKD-EPI)AfAm (>60 ml/min/1.73 sqM) Est GFR (CKD-EPI)NonAf (>60 ml/min/1.73 sqM) Glucose (74-99) mg/dL Plasma Lactic Acid Jez 1.7 (0.7-2.0) mmol/L Calcium (8.4-10.2) mg/dL Total Bilirubin (0.2-1.3) mg/dL AST (14-36) U/L ALT (4-34) U/L Alkaline Phosphatase (38-126) U/L Troponin I 0.043 H* (0.000-0.034) ng/mL NT-Pro-B Natriuret Pep pg/mL Total Protein (6.3-8.2) g/dL Albumin (3.5-5.0) g/dL Influenza Type A (PCR) Not Detected (Not Detectd) Influenza Type B (PCR) Not Detected (Not Detectd) RSV (PCR) Not Detected (Not Detectd) SARS-CoV-2 (PCR) Detected A (Not Detectd) Critical Care Time Critical Care Time: Yes Total Critical Care Time: 31 <Geovany Hutchinson - Last Filed: 02/16/25 13:17> Disposition Is patient prescribed a controlled substance at d/c from ED?: No Time of Disposition: 17:00 <Geovany Hutchinson - Last Filed: 02/16/25 13:17> <Katie Hatch - Last Filed: 02/20/25 20:39> Clinical Impression: Shortness of breath, CHF (congestive heart failure), Paroxysmal a-fib, Weakness, Coronavirus infection, Acute exacerbation of chronic obstructive pulmo nary disease, S/P TAVR (transcatheter aortic valve replacement), Pulmonary edema, Elevated troponin, NSTEMI (non-ST elevated myocardial infarction) Disposition: ADMITTED IP TO THIS HOSP Condition: Serious
[2025-02-13 14:50] LABS: Anisocytosis Slight; Basophils % (A) 0 %; Eosinophils # (A) 0.1 k/uL (0-0.7); Eosinophils % (A) 2 %; HCT 30.3 % (34.0-46.0); HGB 9.7 gm/dL (11.4-16.0); Hypochromasia Marked; Lymphocytes # (A) 0.6 k/uL (1.0-4.8); Lymphocytes % (A) 12 %; MCHC 32.1 g/dL (31.0-37.0); Mean Platelet Volume 7.7; Monocytes # (A) 0.2 k/uL (0-1.0); Monocytes % (A) 4 %; Neutrophils # (A) 4.2 k/uL (1.3-7.7); Neutrophils % (A) 80 %; Platelet Count 182 k/uL (150-450); RBC 3.14 m/uL (3.80-5.40); RDW 16.5 % (11.5-15.5); WBC 5.2 k/uL (3.8-10.6)
[2025-02-13 14:58] LABS: MCV 96.6 fL (80.0-100.0)
[2025-02-13 15:02] LABS: INR 1.1 (<1.2); Partial Thromboplastin Time 23.9 sec (22.0-30.0); Prothrombin Time 11.8 sec (10.0-12.5)
[2025-02-13 15:04] LABS: ALT 24 U/L (4-34); AST 43 U/L (14-36); African American GFR (CKD) 52 (>60 ml/min/1.73 sqM); Albumin 3.8 g/dL (3.5-5.0); Alkaline Phosphatase 152 U/L (38-126); Anion Gap 8 mmol/L; Blood Urea Nitrogen 38 mg/dL (7-17); Chloride 86 mmol/L (98-107); Glucose 229 mg/dL (74-99); Non-African American GFR(CKD) 45 (>60 ml/min/1.73 sqM); Sodium 134 mmol/L (137-145); Total Bilirubin 0.8 mg/dL (0.2-1.3); Total Protein 7.4 g/dL (6.3-8.2)
[2025-02-13 15:11] LABS: NT-Pro-B-Type Natriuretic Pept 4390 pg/mL
--- NOTE | 2025-02-13 15:17 | XR ---
EXAMINATION TYPE: XR chest 2V DATE OF EXAM: 02/13/2025 3:11 PM COMPARISON: 02/02/2025 CLINICAL INDICATION: Female, 80 years old with history of difficulty breathing, Shortness of breath FINDINGS: Noted is pulmonary venous congestion with scattered infiltrates. There is also cardiomegaly and small effusions. IMPRESSION: Findings compatible with congestive failure. Infiltrates of other etiology are not excluded. Clinical correlation and progress studies are recommended. Correlate with BNP [facility], , 02/13/2025 3:15 PM
[2025-02-13 15:18] LABS: Carbon Dioxide 37 mmol/L (22-30)
[2025-02-13 15:28] LABS: Influenza A Not Detected (Not Detectd); Influenza B Not Detected (Not Detectd); RSV Not Detected (Not Detectd)
[2025-02-13] MEDS ORDERED: NALOXONE 0.4 MG/ML 1 ML VIAL IV PRN (17:27)
[2025-02-13] MEDS ORDERED: ALBUTEROL NEBULIZED 2.5 MG/3 ML INHALATION PRN (17:27)
[2025-02-13] MEDS ORDERED: MORPHINE SULFATE 4 MG/ML SYRINGE IV PRN (17:27)
[2025-02-13] MEDS ORDERED: NALOXONE 0.4 MG/ML 1 ML VIAL IVP PRN (17:27)
[2025-02-13] MEDS ORDERED: ONDANSETRON 4 MG/2 ML VIAL IVP PRN (17:27)
[2025-02-13] MEDS: SODIUM CHLORIDE 0.9% 1,000 ML IV SCH (17:56)
[2025-02-13] MEDS: FUROSEMIDE 10 MG/ML 4 ML VIAL IV SCH (17:56)
[2025-02-13] MEDS: NITROGLYCERIN OINT 1 INCH/GM PACKET TOPICAL SCH (18:01)
[2025-02-13] MEDS: IPRATROPIUM-ALBUTEROL 3 ML NEB INHALATION STA (18:02)
[2025-02-14] MEDS ORDERED: ACETAMINOPHEN TAB 325 MG TAB PO PRN (00:16)
--- NOTE | 2025-02-14 00:24 | P.HPIM ---
History of Present Illness H&P Date: 02/13/25 Chief Complaint: Shortness of breath 80-year-old female past medical history of A-fib on Eliquis, COPD on 5 L home O2, sleep apnea on BiPAP who presents to the emergency department for worsening shortness of breath. Patient was recently hospitalized from the to the for CHF exacerbation. States that she has been doing well at home and has been watching her water and salt intake. She denies any worsening swelling in her legs. Her daughter got sick with COVID and subsequently she took a test yesterday and was found to be COVID-positive. She is not currently on any steroids. Denies any chest pain. She did take a breathing treatment at home and was provided an albuterol treatment and a DuoNeb treatment by EMS. Oxygen saturations were 92% on her home oxygen. She denies ripping or tearing sensation to her back. No weight gain. No abdominal pain. No nausea or vomiting. No other alleviating, precipitating or modifying factors no other alleviating, precipitating or modifying factors Blood work completed in ED reveals a WBC of 5.2, hemoglobin of 9.7 and platelet count of 182, sodium 134, potassium 4.2, BUNs/creatinine of 38/1.16 and blood glucose of 229; first set of troponin slightly elevated at 0.043; BNP of 4390 4 viral screen is positive for COVID-19 PCR Chest x-ray reveals findings compatible with congestive heart failure. Infiltrates of further etiology cannot be ruled out Review of Systems REVIEW OF SYSTEMS: CONSTITUTIONAL: No fever, no malaise, no fatigue. HEENT: No recent visual problems or hearing problems. Denied any sore throat. CARDIOVASCULAR: No chest pain, orthopnea, PND, no palpitations, no syncope. PULMONARY: No shortness of breath, no cough, no hemoptysis. GASTROINTESTINAL: No diarrhea, no nausea, no vomiting, no abdominal pain. NEUROLOGICAL: No headaches, no weakness, no numbness. HEMATOLOGICAL: Denies any bleeding or petechiae. GENITOURINARY: Denies any burning micturition, frequency, or urgency. MUSCULOSKELETAL/RHEUMATOLOGICAL: Denies any joint pain, swelling, or any muscle pain. ENDOCRINE: Denies any polyuria or polydipsia. The rest of the 14-point review of systems is negative. 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 HAD THYROID AND PARATHYROID REMOVAL. TOTAL LEFT KNEE REPLACEMENT, CATARACT RT EYE, CATARACT LEFT EYE SURGERY ,COLONOSCOPY, TVAR- 11/2018 , Aortic valve replacement 10/2018 Past Anesthesia/Blood Transfusion Reactions: No Reported Reaction Type of Cardiac Device: Permanent Pacemaker Device Placement Date:: PACEMAKER NOV 2017. Past Psychological History: No Psychological Hx Reported Smoking Status: Never smoker - Past Family History Daughter(s) Family Medical History: Deep Vein Thrombosis (DVT) Sister(s) Family Medical History: Cancer Additional Family Medical History / Comment(s): BREAST CANCER Medications and Allergies Home Medications Medication Instructions Recorded Confirmed Type Levothyroxine Sodium [Levoxyl] 175 mcg PO DAILY 10/25/20 02/13/25 History FLUoxetine HCL [PROzac] 10 mg PO DAILY 10/08/24 02/13/25 History Insulin Aspart [NovoLOG Flexpen] 40 units SQ TID-W/MEALS 10/08/24 02/13/25 History Insulin Glargine,Hum.rec.anlog 20 units SQ HS 10/08/24 02/13/25 History [Lantus Solostar Pen] Apixaban [Eliquis] 5 mg PO BID #0 10/30/24 02/13/25 Rx Calcium Carbonate [Calcium] 600 mg PO BID 01/28/25 02/13/25 History Acetaminophen Tab [Tylenol] 650 mg PO Q6HR PRN tab 02/05/25 02/13/25 Rx Atorvastatin [Lipitor] 40 mg PO HS #30 tab 02/05/25 02/13/25 Rx Dapagliflozin Propanediol [Farxiga] 10 mg PO DAILY #30 tab 02/05/25 02/13/25 Rx Furosemide [Lasix] 80 mg PO DAILY #30 tab 02/05/25 02/13/25 Rx Metoprolol Succinate (ER) [Toprol 25 mg PO HS #30 tab 02/05/25 02/13/25 Rx XL] Metoprolol Succinate (ER) [Toprol 50 mg PO DAILY tab 02/05/25 02/13/25 Rx XL] metOLazone [Zaroxolyn] 2.5 mg PO DAILY #30 tab 02/05/25 02/13/25 Rx Furosemide [Lasix] 40 mg PO DAILY@1600 02/13/25 02/13/25 History Allergies Allergy/AdvReac Type Severity Reaction Status Date / Time nitrofurantoin Allergy Rash/Hives Verified 02/13/25 17:52 macrocrystalline [From Macrodantin] phenazopyridine HCl Allergy Rash/Hives Verified 02/13/25 17:52 [From Pyridium] Physical Exam Vitals: Vital Signs Temp Pulse Resp BP Pulse Ox 02/13/25 18:16 73 02/13/25 18:05 71 02/13/25 17:12 79 20 131/51 95 02/13/25 14:13 98.6 F 87 18 145/71 100 Intake and Output 02/13/25 02/13/25 02/13/25 06:59 14:59 22:59 Other: Weight 117.934 kg General appearance: alert, in distress, obese Head exam: Present: atraumatic, normocephalic, normal inspection Eye exam: Present: normal appearance, PERRL, EOMI. Absent: scleral icterus, conjunctival injection, periorbital swelling ENT exam: Present: normal exam, mucous membranes moist Neck exam: Present: normal inspection. Absent: tenderness, meningismus, lymphadenopathy Respiratory exam: Present: normal lung sounds bilaterally, wheezes, decreased breath sounds, prolonged expiratory. Absent: respiratory distress, rales, rhonchi, stridor Cardiovascular Exam: Present: regular rate, normal rhythm, normal heart sounds. Absent: systolic murmur, diastolic murmur, rubs, gallop, clicks GI/Abdominal exam: Present: soft, normal bowel sounds. Absent: distended, tenderness, guarding, rebound, rigid Extremities exam: Present: normal inspection, full ROM, normal capillary refill. Absent: tenderness, pedal edema, joint swelling, calf tenderness Back exam: Present: normal inspection Neurological exam: Present: alert, oriented X3, CN II-XII intact Results CBC & Chem 7: 02/13/25 14:27 02/13/25 14:27 Labs: Abnormal Lab Results - Last 24 Hours (Table) 02/13/25 02/13/25 02/13/25 Range/Units 14:27 14:27 14:27 RBC 3.14 L (3.80-5.40) m/uL Hgb 9.7 L (11.4-16.0) gm/dL Hct 30.3 L (34.0-46.0) % RDW 16.5 H (11.5-15.5) % Lymphocytes # 0.6 L (1.0-4.8) k/uL Sodium 134 L (137-145) mmol/L Chloride 86 L (98-107) mmol/L Carbon Dioxide 37 H (22-30) mmol/L BUN 38 H (7-17) mg/dL Creatinine 1.16 H (0.52-1.04) mg/dL Glucose 229 H (74-99) mg/dL AST 43 H (14-36) U/L Alkaline Phosphatase 152 H (38-126) U/L Troponin I 0.043 H* (0.000-0.034) ng/mL SARS-CoV-2 (PCR) (Not Detectd) 02/13/25 Range/Units 14:28 RBC (3.80-5.40) m/uL Hgb (11.4-16.0) gm/dL Hct (34.0-46.0) % RDW (11.5-15.5) % Lymphocytes # (1.0-4.8) k/uL Sodium (137-145) mmol/L Chloride (98-107) mmol/L Carbon Dioxide (22-30) mmol/L BUN (7-17) mg/dL Creatinine (0.52-1.04) mg/dL Glucose (74-99) mg/dL AST (14-36) U/L Alkaline Phosphatase (38-126) U/L Troponin I (0.000-0.034) ng/mL SARS-CoV-2 (PCR) Detected A (Not Detectd) Assessment and Plan Assessment: 1. Acute exacerbation CHF -Patient has been placed on Lasix 40 mg IV every 8 hours; we will monitor strict ALICIA's, daily weights; low-salt and fluid restricted diet; continue with metolazone 2.5 mg daily -Recommend 2D echo; consult cardiology 2. Elevated troponin; first set of troponin was slightly elevated; insight is within normal limit; check 2D echo 2. Acute exacerbation COPD -Solu-Medrol 60 mg IV every 8 hours; DuoNeb nebulizer treatments 4 times daily and as needed -Add doxycycline 100 mg p.o. twice daily -Consult pulmonary 3. Acute COVID-19 infection; will add COVID-19 vitamin cocktail -Patient has been placed on Solu-Medrol; will consult pulmonary service for recommendations on remdesivir therapy; continue home dose of Eliquis 4. Paroxysmal atrial fibrillation; patient is rate controlled on metoprolol; continue and Eliquis for anticoagulation 5. Diabetes mellitus; long-term insulin use; continue with home dose of Lantus and Premeal insulin; monitor Accu-Cheks q. CHS with insulin sliding scale; Farxiga 10 mg daily 6. Hypothyroidism; levothyroxine 175 mcg daily 7. Hyperlipidemia; Lipitor 40 mg p.o. nightly DVT prophylaxis; CDs/Eliquis CODE STATUS; full code
[2025-02-14] MEDS: LEVOTHYROXINE 100 MCG TAB PO SCH (06:00)
[2025-02-14] MEDS: LEVOTHYROXINE 75 MCG TAB PO SCH (06:00)
[2025-02-14 06:55] LABS: African American GFR (CKD) 50 (>60 ml/min/1.73 sqM); Anion Gap 9 mmol/L; Blood Urea Nitrogen 36 mg/dL (7-17); Calcium 8.6 mg/dL (8.4-10.2); Chloride 85 mmol/L (98-107); Glucose 247 mg/dL (74-99); Non-African American GFR(CKD) 43 (>60 ml/min/1.73 sqM); Potassium 4.2 mmol/L (3.5-5.1); Sodium 134 mmol/L (137-145)
[2025-02-14 07:01] LABS: Anisocytosis Slight; Basophils % (A) 0 %; Eosinophils % (A) 1 %; HCT 26.9 % (34.0-46.0); Hypochromasia Moderate; Lymphocytes # (A) 0.5 k/uL (1.0-4.8); Lymphocytes % (A) 12 %; MCH 30.5 pg (25.0-35.0); MCHC 30.4 g/dL (31.0-37.0); MCV 100.4 fL (80.0-100.0); Macrocytosis Slight; Mean Platelet Volume 8.2; Monocytes # (A) 0.2 k/uL (0-1.0); Monocytes % (A) 5 %; Neutrophils # (A) 2.9 k/uL (1.3-7.7); Neutrophils % (A) 80 %; Platelet Count 176 k/uL (150-450); RBC 2.68 m/uL (3.80-5.40); RDW 16.8 % (11.5-15.5); WBC 3.6 k/uL (3.8-10.6)
[2025-02-14 07:02] LABS: HGB 8.2 gm/dL (11.4-16.0)
[2025-02-14 07:29] LABS: Carbon Dioxide 40 mmol/L (22-30)
[2025-02-14] MEDS: ALBUTEROL HFA INHALER INHALATION PRN (08:22)
[2025-02-14 08:27] LABS: Glucose,Whole Blood 280 mg/dL (70-110)
[2025-02-14] MEDS: APIXABAN 5 MG TAB PO SCH (09:26)
[2025-02-14] MEDS: CALCIUM CARBONATE 500 MG CHEWABLE PO SCH (09:26)
[2025-02-14] MEDS: METOPROLOL SUCCINATE (ER) 50 MG TAB.ER.24H PO SCH (09:26)
[2025-02-14] MEDS: ZINC SULFATE 220 MG CAP PO SCH (09:26)
[2025-02-14] MEDS: metOLazone 2.5 MG TAB PO SCH (09:26)
[2025-02-14] MEDS: ASCORBIC ACID 500 MG TAB PO SCH (09:26)
[2025-02-14] MEDS: FLUoxetine HCL 10 MG CAP PO SCH (09:26)
[2025-02-14] MEDS: CHOLECALCIFEROL 125 MCG (5000 IU) TABLET PO SCH (09:27)
[2025-02-14] MEDS: INSULIN LISPRO (HumaLOG) 100 UNIT/ML 10 mL VL SQ SCH (09:27)
[2025-02-14] MEDS: DAPAGLIFLOZIN PROPANEDIOL 10 MG TABLET PO SCH (09:34)
--- NOTE | 2025-02-14 10:14 | P.CRDCN ---
History of Present Illness Consult date: 02/14/25 History of present illness: The patient is a 80-year-old female patient who is known to our service from before with extensive cardiac history consistent of valvular heart disease status post aortic valve replacement and mitral valve replacement and tricuspid valve repair in May 2024 performed at [facility] as well as history of heart failure as well as cardiomyopathy and also diabetes and hypertension and dyslipidemia and chronic kidney disease and chronic anemia secondary to iron deficiency anemia and permanent pacemaker and permanent atrial fibrillation. The patient was seen by our service earlier this month after she was admitted with heart failure and she was discharged on oral diuretics and according to her she has been compliant with it. She presented back to the hospital not feeling well experiencing progressive exertional dyspnea associated with cough and congestions and fever as well and also bilateral lower extremities edema. No pain in the chest or dizziness or lightheadedness or any feeling of heart racing or fluttering or presyncope or syncope which she stated that she has been compliant with the current medical regimen including the current dose of oral diuretics. She stated that also she has been compliant with low-sodium diet. She underwent further evaluation including COVID test came in to be abnormal and also she underwent a chest x-ray showed finding consistent with heart failure as well as NT proBNP came to be around 4000. Hemoglobin came to be around 8 which is her baseline. Kidney function is at baseline as well. The EKG showed underlying atrial fibrillation with ventricular paced rhythm. She underwent an echo in January 2024 showed mildly impaired LV function with overall normally functioning aortic and mitral prosthesis. When she presented to the hospital she was hypoxic requiring oxygen. The physical examination is remarkable for extensive bilateral expiratory wheezing with a distant heart sounds and bilateral lower extremities pitting edema noted as well Assessment Acute hypoxic respiratory failure Heart failure exacerbation secondary to HFrEF Permanent atrial fibrillation with controlled heart rate Permanent pacemaker Valvular heart disease as described above Multiple comorbid conditions including morbid obesity and diabetes and hypertension and dyslipidemia and chronic kidney disease and chronic anemia Plan Continue the current medical regimen including current dose of IV diuretics Continue monitor the kidney function and electrolytes No need to repeat the echocardiogram in the light of recent echocardiogram as described above Follow-up with the patient Past Medical History Past Medical History: Atrial Fibrillation, Diabetes Mellitus, Hearing Disorder / Deafness, Hyperlipidemia, Osteoarthritis (OA), Pneumonia, Sleep Apnea/CPAP/BIPAP, Thyroid Disorder Additional Past Medical History / Comment(s): USES BIPAP, AORTIC VALVE REPLACEMENT , HX A-FIB WITH PNEUMONIA,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 HAD THYROID AND PARATHYROID REMOVAL. TOTAL LEFT KNEE REPLACEMENT, CATARACT RT EYE, CATARACT LEFT EYE SURGERY ,COLONOSCOPY, TVAR- 11/2018 , Aortic valve replacement 10/2018 Past Anesthesia/Blood Transfusion Reactions: No Reported Reaction Type of Cardiac Device: Permanent Pacemaker Device Placement Date:: PACEMAKER NOV 2017. Past Psychological History: No Psychological Hx Reported Smoking Status: Never smoker - Past Family History Daughter(s) Family Medical History: Deep Vein Thrombosis (DVT) Sister(s) Family Medical History: Cancer Additional Family Medical History / Comment(s): BREAST CANCER Medications and Allergies Home Medications Medication Instructions Recorded Confirmed Type Levothyroxine Sodium [Levoxyl] 175 mcg PO DAILY 10/25/20 02/13/25 History FLUoxetine HCL [PROzac] 10 mg PO DAILY 10/08/24 02/13/25 History Insulin Aspart [NovoLOG Flexpen] 40 units SQ TID-W/MEALS 10/08/24 02/13/25 History Insulin Glargine,Hum.rec.anlog 20 units SQ HS 10/08/24 02/13/25 History [Lantus Solostar Pen] Apixaban [Eliquis] 5 mg PO BID #0 10/30/24 02/13/25 Rx Calcium Carbonate [Calcium] 600 mg PO BID 01/28/25 02/13/25 History Acetaminophen Tab [Tylenol] 650 mg PO Q6HR PRN tab 02/05/25 02/13/25 Rx Atorvastatin [Lipitor] 40 mg PO HS #30 tab 02/05/25 02/13/25 Rx Dapagliflozin Propanediol [Farxiga] 10 mg PO DAILY #30 tab 02/05/25 02/13/25 Rx Furosemide [Lasix] 80 mg PO DAILY #30 tab 02/05/25 02/13/25 Rx Metoprolol Succinate (ER) [Toprol 25 mg PO HS #30 tab 02/05/25 02/13/25 Rx XL] Metoprolol Succinate (ER) [Toprol 50 mg PO DAILY tab 02/05/25 02/13/25 Rx XL] metOLazone [Zaroxolyn] 2.5 mg PO DAILY #30 tab 02/05/25 02/13/25 Rx Furosemide [Lasix] 40 mg PO DAILY@1600 02/13/25 02/13/25 History Allergies Allergy/AdvReac Type Severity Reaction Status Date / Time nitrofurantoin Allergy Rash/Hives Verified 02/13/25 17:52 macrocrystalline [From Macrodantin] phenazopyridine HCl Allergy Rash/Hives Verified 02/13/25 17:52 [From Pyridium] Physical Exam Vitals: Vital Signs Temp Pulse Resp BP Pulse Ox 02/14/25 06:00 68 18 116/54 97 02/14/25 05:42 65 16 116/38 92 L 02/14/25 04:25 67 18 122/52 95 02/14/25 02:22 72 18 127/61 90 L 02/13/25 23:00 71 18 163/61 95 02/13/25 18:16 73 02/13/25 18:05 71 02/13/25 17:12 79 20 131/51 95 02/13/25 14:13 98.6 F 87 18 145/71 100 Results 02/14/25 06:14 02/14/25 06:14 Cardiac Enzymes 02/13/25 02/13/25 02/13/25 Range/Units 14:27 14:27 18:07 AST 43 H (14-36) U/L Troponin I 0.043 H* 0.030 (0.000-0.034) ng/mL 02/13/25 Range/Units 23:26 AST (14-36) U/L Troponin I 0.046 H* (0.000-0.034) ng/mL Coagulation 02/13/25 Range/Units 14:27 PT 11.8 (10.0-12.5) sec APTT 23.9 (22.0-30.0) sec CBC 02/13/25 02/14/25 Range/Units 14:27 06:14 WBC 5.2 3.6 L (3.8-10.6) k/uL RBC 3.14 L 2.68 L (3.80-5.40) m/uL Hgb 9.7 L 8.2 L D (11.4-16.0) gm/dL Hct 30.3 L 26.9 L (34.0-46.0) % Plt Count 182 176 (150-450) k/uL Comprehensive Metabolic Panel 02/13/25 02/14/25 Range/Units 14:27 06:14 Sodium 134 L 134 L (137-145) mmol/L Potassium 4.0 4.2 (3.5-5.1) mmol/L Chloride 86 L 85 L (98-107) mmol/L Carbon Dioxide 37 H 40 H (22-30) mmol/L BUN 38 H 36 H (7-17) mg/dL Creatinine 1.16 H 1.20 H (0.52-1.04) mg/dL Glucose 229 H 247 H (74-99) mg/dL Calcium 9.0 8.6 (8.4-10.2) mg/dL AST 43 H (14-36) U/L ALT 24 (4-34) U/L Alkaline Phosphatase 152 H (38-126) U/L Total Protein 7.4 (6.3-8.2) g/dL Albumin 3.8 (3.5-5.0) g/dL Current Medications Generic Name Dose Route Start Last Admin Trade Name Freq PRN Reason Stop Dose Admin Acetaminophen 650 mg 02/14/25 00:16 Acetaminophen Tab 325 Mg Tab PO Q6HR PRN Fever and/ or Pain Albuterol Sulfate 2 puff 02/14/25 05:48 02/14/25 08:22 Albuterol Hfa Inhaler INHALATION 2 puff RT-Q4H PRN Administration Difficulty Breathing Apixaban 5 mg 02/14/25 09:00 02/14/25 09:26 Apixaban 5 Mg Tab PO 5 mg BID [facility] Administration Protocol Ascorbic Acid 500 mg 02/14/25 09:00 02/14/25 09:26 Ascorbic Acid 500 Mg Tab PO 500 mg DAILY LILIYA Administration Atorvastatin Calcium 40 mg 02/14/25 21:00 Atorvastatin 40 Mg Tab PO HS [facility] Calcium Carbonate/Glycine 500 mg 02/14/25 09:00 02/14/25 09:26 Calcium Carbonate 500 Mg Chewable PO 500 mg BID [facility] Administration Cholecalciferol 125 mcg 02/14/25 09:00 02/14/25 09:27 Cholecalciferol 125 Mcg (5000 Iu) Tablet PO 125 mcg DAILY LILIYA Administration Dapagliflozin 10 mg 02/14/25 09:00 02/14/25 09:34 Dapagliflozin Propanediol 10 Mg Tablet PO 10 mg DAILY LILIYA Administration Fluoxetine HCl 10 mg 02/14/25 09:00 02/14/25 09:26 Fluoxetine Hcl 10 Mg Cap PO 10 mg DAILY LILIYA Administration Furosemide 40 mg 02/13/25 17:30 02/14/25 06:01 Furosemide 10 Mg/Ml 4 Ml Vial IV 40 mg Q12H LILIYA Administration Sodium Chloride 1,000 mls @ 20 mls/hr 02/13/25 17:30 02/13/25 17:56 Saline 0.9% IV 20 mls/hr .Q24H LILIYA Administration Insulin Glargine 20 unit 02/14/25 21:00 Insulin Glargine (Lantus) 100 Unit/Ml Syr SQ HS [facility] Insulin Human Lispro 40 unit 02/14/25 07:30 02/14/25 09:31 Insulin Lispro (Humalog) 100 Unit/Ml 10 Ml Vl SQ Not Given TID-W/MEALS [facility] Levothyroxine Sodium 100 mcg 02/14/25 06:00 02/14/25 06:00 Levothyroxine 100 Mcg Tab PO 100 mcg DAILY@0600 [facility] Administration Levothyroxine Sodium 75 mcg 02/14/25 06:00 02/14/25 06:00 Levothyroxine 75 Mcg Tab PO 75 mcg DAILY@0600 [facility] Administration Metolazone 2.5 mg 02/14/25 09:00 02/14/25 09:26 Metolazone 2.5 Mg Tab PO 2.5 mg DAILY [facility] Administration Metoprolol Succinate 25 mg 02/14/25 21:00 Metoprolol Succinate (Er) 25 Mg Tab.Er.24h PO HS [facility] Metoprolol Succinate 50 mg 02/14/25 09:00 02/14/25 09:26 Metoprolol Succinate (Er) 50 Mg Tab.Er.24h PO 50 mg DAILY LILIYA Administration Morphine Sulfate 4 mg 02/13/25 17:27 Morphine Sulfate 4 Mg/Ml Syringe IV Q4HR PRN Severe Pain (Scale 7 to 10) Naloxone HCl 0.2 mg 02/13/25 17:27 Naloxone 0.4 Mg/Ml 1 Ml Vial IVP Q2M PRN Opioid Reversal Nitroglycerin 1 inch 02/13/25 18:00 02/14/25 06:00 Nitroglycerin Oint 1 Inch/Gm Packet TOPICAL 02/14/25 17:59 1 inch Q6HR LILIYA Administration Ondansetron HCl 4 mg 02/13/25 17:27 Ondansetron 4 Mg/2 Ml Vial IVP Q8HR PRN Nausea And Vomiting Zinc Sulfate 220 mg 02/14/25 09:00 02/14/25 09:26 Zinc Sulfate 220 Mg Cap PO 220 mg DAILY LILIYA Administration 02/14/25 06:14 02/14/25 06:14
--- NOTE | 2025-02-14 12:09 | P.PN ---
Subjective Progress Note Date: 02/14/25 80-year-old female past medical history of A-fib on Eliquis, COPD on 5 L home O2, sleep apnea on BiPAP who presents to the emergency department for worsening shortness of breath. Patient was recently hospitalized from the to the for CHF exacerbation. States that she has been doing well at home and has been watching her water and salt intake. She denies any worsening swelling in her legs. Her daughter got sick with COVID and subsequently she took a test yesterday and was found to be COVID-positive. She is not currently on any steroids. Denies any chest pain. She did take a breathing treatment at home and was provided an albuterol treatment and a DuoNeb treatment by EMS. Oxygen saturations were 92% on her home oxygen. She denies ripping or tearing sensation to her back. No weight gain. No abdominal pain. No nausea or vomiting. No other alleviating, precipitating or modifying factors no other alleviating, precipitating or modifying factors Blood work completed in ED reveals a WBC of 5.2, hemoglobin of 9.7 and platelet count of 182, sodium 134, potassium 4.2, BUNs/creatinine of 38/1.16 and blood glucose of 229; first set of troponin slightly elevated at 0.043; BNP of 4390 4 viral screen is positive for COVID-19 PCR Chest x-ray reveals findings compatible with congestive heart failure. Infiltrates of further etiology cannot be ruled out --Cardiology recommending to continue with the current dose of IV diuretics; continue to monitor renal function electrolytes; patient had an echocardiogram completed in January 2024 which revealed mildly impaired LV function; cardiology is not recommending repeat echo at this time Objective - Vital Signs Vital signs: Vital Signs Temp 98.6 F 02/13/25 14:13 Pulse 71 02/13/25 23:00 Resp 18 02/13/25 23:00 BP 163/61 02/13/25 23:00 Pulse Ox 95 02/13/25 23:00 FiO2 Intake & Output 02/13/25 02/13/25 02/14/25 06:59 18:59 06:59 Weight 117.934 kg - Exam General appearance: alert, in distress, obese Head exam: Present: atraumatic, normocephalic, normal inspection Eye exam: Present: normal appearance, PERRL, EOMI. Absent: scleral icterus, conjunctival injection, periorbital swelling ENT exam: Present: normal exam, mucous membranes moist Neck exam: Present: normal inspection. Absent: tenderness, meningismus, lymphadenopathy Respiratory exam: Present: normal lung sounds bilaterally, wheezes, decreased breath sounds, prolonged expiratory. Absent: respiratory distress, rales, rhonchi, stridor Cardiovascular Exam: Present: regular rate, normal rhythm, normal heart sounds. Absent: systolic murmur, diastolic murmur, rubs, gallop, clicks GI/Abdominal exam: Present: soft, normal bowel sounds. Absent: distended, tenderness, guarding, rebound, rigid Extremities exam: Present: normal inspection, full ROM, normal capillary refill. Absent: tenderness, pedal edema, joint swelling, calf tenderness Back exam: Present: normal inspection Neurological exam: Present: alert, oriented X3, CN II-XII intact - Labs CBC & Chem 7: 02/14/25 06:14 02/14/25 06:14 Labs: Abnormal Lab Results - Last 24 Hours (Table) 02/13/25 02/13/25 02/13/25 Range/Units 14:27 14:27 14:27 RBC 3.14 L (3.80-5.40) m/uL Hgb 9.7 L (11.4-16.0) gm/dL Hct 30.3 L (34.0-46.0) % RDW 16.5 H (11.5-15.5) % Lymphocytes # 0.6 L (1.0-4.8) k/uL Sodium 134 L (137-145) mmol/L Chloride 86 L (98-107) mmol/L Carbon Dioxide 37 H (22-30) mmol/L BUN 38 H (7-17) mg/dL Creatinine 1.16 H (0.52-1.04) mg/dL Glucose 229 H (74-99) mg/dL AST 43 H (14-36) U/L Alkaline Phosphatase 152 H (38-126) U/L Troponin I 0.043 H* (0.000-0.034) ng/mL SARS-CoV-2 (PCR) (Not Detectd) 02/13/25 Range/Units 14:28 RBC (3.80-5.40) m/uL Hgb (11.4-16.0) gm/dL Hct (34.0-46.0) % RDW (11.5-15.5) % Lymphocytes # (1.0-4.8) k/uL Sodium (137-145) mmol/L Chloride (98-107) mmol/L Carbon Dioxide (22-30) mmol/L BUN (7-17) mg/dL Creatinine (0.52-1.04) mg/dL Glucose (74-99) mg/dL AST (14-36) U/L Alkaline Phosphatase (38-126) U/L Troponin I (0.000-0.034) ng/mL SARS-CoV-2 (PCR) Detected A (Not Detectd) Assessment and Plan Assessment: 1. Acute exacerbation CHF -Patient has been placed on Lasix 40 mg IV every 8 hours; we will monitor strict ALICIA's, daily weights; low-salt and fluid restricted diet; continue with metolazone 2.5 mg daily -Recommend 2D echo; consult cardiology 2. Elevated troponin; first set of troponin was slightly elevated; insight is within normal limit; check 2D echo 2. Acute exacerbation COPD -Solu-Medrol 60 mg IV every 8 hours; DuoNeb nebulizer treatments 4 times daily and as needed -Add doxycycline 100 mg p.o. twice daily -Consult pulmonary 3. Acute COVID-19 infection; will add COVID-19 vitamin cocktail -Patient has been placed on Solu-Medrol; will consult pulmonary service for recommendations on remdesivir therapy; continue home dose of Eliquis 4. Paroxysmal atrial fibrillation; patient is rate controlled on metoprolol; continue and Eliquis for anticoagulation 5. Diabetes mellitus; long-term insulin use; continue with home dose of Lantus and Premeal insulin; monitor Accu-Cheks q. CHS with insulin sliding scale; Farxiga 10 mg daily 6. Hypothyroidism; levothyroxine 175 mcg daily 7. Hyperlipidemia; Lipitor 40 mg p.o. nightly DVT prophylaxis; CDs/Eliquis CODE STATUS; full code
--- NOTE | 2025-02-14 12:27 | P.CNPUL ---
History of Present Illness Consult date: 02/14/25 Requesting physician: Sergio E Maria Elena Reason for consult: dyspnea Chief complaint: Shortness of breath History of present illness: This is a 80-year-old female with past medical history significant for valvular heart disease with previous extensive open heart procedure at [facility] done May,. She also has past medical history significant for coronary artery disease with previous PCI/stent, dual-chamber pacemaker, paroxysmal atrial fibrillation, diabetes mellitus, hypothyroidism, hypertension, hyperlipidemia, obstructive sleep apnea with home CPAP. She has had recent multiple admissions here mostly for congestive heart failure. Most recently discharged home on 02/05/2025. She presented back to the emergency room again on 02/13/2025 with complaints of increasing shortness of breath. Her daughter was sick and was tested positive for COVID and the patient tested positive yesterday and felt the need to come to the emergency room. Chest x-ray reveals evidence of congestive heart failure with pulmonary venous congestion and scattered infiltrates. Small effusions. White count globin 8.2. Platelets 176. Sodium 134. Potassium 4.2. Bicarb 40. BUN 36. Creatinine 1.20. Glucose 247. Troponin 0.043, 0.030, 0.046. proBNP 4390. Viral screen positive for COVID. She is seen in consultation in the emergency department. She is currently resting on a stretcher currently wearing her home CPAP device with 5 L of oxygen bled in. Maintaining O2 saturations in the mid 90s. Afebrile. Hemodynamically stable. Breathing a bit easier today compared to yesterday. Review of Systems REVIEW OF SYSTEMS: CONSTITUTIONAL: Denies any recent significant weight loss or weight gain. EYES: Denies change in vision. EARS, NOSE, MOUTH, THROAT: Denies headaches, denies sore throat. CARDIOVASCULAR: Denies chest pain, palpitations or syncopal episodes. RESPIRATORY: Positive for shortness of breath, cough, congestion no hemoptysis. GASTROINTESTINAL: Denies change in appetite, denies abdominal pain GENITOURINARY: Denies hematuria, denies infections. MUSKULOSKELETAL: Denies pain, denies swelling. INTEGUMENTARY: Denies rash, denies eczema. NEUROLOGICAL: Denies recent memory loss, no recent seizure activity. PSYCHIATRIC: Denies anxiety, denies depression. HEMATOLOGIC/LYMPHATIC: Denies anemia, denies enlarged lymph nodes. 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 HAD THYROID AND PARATHYROID REMOVAL. TOTAL LEFT KNEE REPLACEMENT, CATARACT RT EYE, CATARACT LEFT EYE SURGERY ,COLONOSCOPY, TVAR- 11/2018 , Aortic valve replacement 10/2018 Past Anesthesia/Blood Transfusion Reactions: No Reported Reaction Type of Cardiac Device: Permanent Pacemaker Device Placement Date:: PACEMAKER NOV 2017. Past Psychological History: No Psychological Hx Reported Smoking Status: Never smoker - Past Family History Daughter(s) Family Medical History: Deep Vein Thrombosis (DVT) Sister(s) Family Medical History: Cancer Additional Family Medical History / Comment(s): BREAST CANCER Medications and Allergies Home Medications Medication Instructions Recorded Confirmed Type Levothyroxine Sodium [Levoxyl] 175 mcg PO DAILY 10/25/20 02/13/25 History FLUoxetine HCL [PROzac] 10 mg PO DAILY 10/08/24 02/13/25 History Insulin Aspart [NovoLOG Flexpen] 40 units SQ TID-W/MEALS 10/08/24 02/13/25 History Insulin Glargine,Hum.rec.anlog 20 units SQ HS 10/08/24 02/13/25 History [Lantus Solostar Pen] Apixaban [Eliquis] 5 mg PO BID #0 10/30/24 02/13/25 Rx Calcium Carbonate [Calcium] 600 mg PO BID 01/28/25 02/13/25 History Acetaminophen Tab [Tylenol] 650 mg PO Q6HR PRN tab 02/05/25 02/13/25 Rx Atorvastatin [Lipitor] 40 mg PO HS #30 tab 02/05/25 02/13/25 Rx Dapagliflozin Propanediol [Farxiga] 10 mg PO DAILY #30 tab 02/05/25 02/13/25 Rx Furosemide [Lasix] 80 mg PO DAILY #30 tab 02/05/25 02/13/25 Rx Metoprolol Succinate (ER) [Toprol 25 mg PO HS #30 tab 02/05/25 02/13/25 Rx XL] Metoprolol Succinate (ER) [Toprol 50 mg PO DAILY tab 02/05/25 02/13/25 Rx XL] metOLazone [Zaroxolyn] 2.5 mg PO DAILY #30 tab 02/05/25 02/13/25 Rx Furosemide [Lasix] 40 mg PO DAILY@1600 02/13/25 02/13/25 History Allergies Allergy/AdvReac Type Severity Reaction Status Date / Time nitrofurantoin Allergy Rash/Hives Verified 02/13/25 17:52 macrocrystalline [From Macrodantin] phenazopyridine HCl Allergy Rash/Hives Verified 02/13/25 17:52 [From Pyridium] Physical Exam Vitals: Vital Signs Temp Pulse Resp BP Pulse Ox 02/14/25 06:00 68 18 116/54 97 02/14/25 05:42 65 16 116/38 92 L 02/14/25 04:25 67 18 122/52 95 02/14/25 02:22 72 18 127/61 90 L 02/13/25 23:00 71 18 163/61 95 02/13/25 18:16 73 02/13/25 18:05 71 02/13/25 17:12 79 20 131/51 95 02/13/25 14:13 98.6 F 87 18 145/71 100 GENERAL EXAM: Alert, 80-year-old obese female, on her home CPAP, fairly comfortable in no apparent distress. HEAD: Normocephalic. EYES: Normal reaction of pupils, equal size. NOSE: Clear with pink turbinates. THROAT: No erythema or exudates. NECK: No masses, no JVD. CHEST: No chest wall deformity. LUNGS: Equal air entry with crackles in the bilateral bases. CVS: S1 and S2 normal with an audible murmur, paced rhythm. ABDOMEN: No hepatosplenomegaly, normal bowel sounds, no guarding or rigidity. SPINE: No scoliosis or deformity SKIN: No rashes CENTRAL NERVOUS SYSTEM: No focal deficits, tone is normal in all 4 extremities. EXTREMITIES: There is 1-2+ peripheral edema. No clubbing, no cyanosis. Peripheral pulses are intact. Results - Laboratory Findings CBC and BMP: 02/14/25 06:14 02/14/25 06:14 PT/INR, D-dimer PT 11.8 sec (10.0-12.5) 02/13/25 14:27 INR 1.1 (<1.2) 02/13/25 14:27 Abnormal lab findings: Abnormal Labs 02/13/25 02/13/25 02/13/25 14:27 14:27 14:27 WBC RBC 3.14 L Hgb 9.7 L Hct 30.3 L MCV MCHC RDW 16.5 H Lymphocytes # 0.6 L Sodium 134 L Chloride 86 L Carbon Dioxide 37 H BUN 38 H Creatinine 1.16 H Glucose 229 H POC Glucose (mg/dL) AST 43 H Alkaline Phosphatase 152 H Troponin I 0.043 H* SARS-CoV-2 (PCR) 02/13/25 02/13/25 02/14/25 14:28 23:26 06:14 WBC 3.6 L RBC 2.68 L Hgb 8.2 L D Hct 26.9 L MCV 100.4 H MCHC 30.4 L RDW 16.8 H Lymphocytes # 0.5 L Sodium Chloride Carbon Dioxide BUN Creatinine Glucose POC Glucose (mg/dL) AST Alkaline Phosphatase Troponin I 0.046 H* SARS-CoV-2 (PCR) Detected A 02/14/25 02/14/25 06:14 08:25 WBC RBC Hgb Hct MCV MCHC RDW Lymphocytes # Sodium 134 L Chloride 85 L Carbon Dioxide 40 H BUN 36 H Creatinine 1.20 H Glucose 247 H POC Glucose (mg/dL) 280 H AST Alkaline Phosphatase Troponin I SARS-CoV-2 (PCR) - Diagnostic Findings Chest x-ray: image reviewed Assessment and Plan Assessment: Acute on chronic hypoxic respiratory failure secondary to acute exacerbation of systolic congestive heart failure and valvular heart disease Acute COVID infection Severe pulmonary hypertension, group 2 History of obstructive sleep apnea with home CPAP Obesity, with a BMI of 46.13 kg/m History of valvular heart disease with previous aortic valve replacement, mitral valve replacement, and tricuspid valve repair, performed at the [facility] May, Dual-chamber pacemaker insertion, paced rhythm Paroxysmal A-fib maintained on anticoagulation with Eliquis Coronary artery disease with previous coronary stenting Diabetes mellitus, insulin-dependent Hypothyroidism Hyperlipidemia Hypertension Chronic anemia, hemoglobin stable at 8.2 g/dL Chronic metabolic alkalosis Plan: The patient was seen and evaluated Chest x-ray, labs and medications reviewed Currently on her home CPAP Continue oxygen at 5 L/min per nasal cannula Titrate as tolerated Initiated on Lasix 40 mg every 12 hours Monitor intake and output Anticoagulated with Eliquis Continue her home medications We will continue to follow and make further recommendations based on her clinical status I have personally seen and examined the patient, performed the documentation and the assessment and plan as written. Number of minutes spent on the visit: 20 Dictation was produced using [email or web address] dictation software. Please excuse any grammatical, word or spelling errors. Time with Patient: Greater than 30
[2025-02-14 12:35] LABS: Glucose,Whole Blood 252 mg/dL (70-110)
[2025-02-14 17:42] LABS: Glucose,Whole Blood 86 mg/dL (70-110)
[2025-02-14 20:34] LABS: Glucose,Whole Blood 120 mg/dL (70-110)
[2025-02-14] MEDS: ATORVASTATIN 40 MG TAB PO SCH (21:01)
[2025-02-14] MEDS: METOPROLOL SUCCINATE (ER) 25 MG TAB.ER.24H PO SCH (21:01)
[2025-02-14] MEDS: INSULIN GLARGINE (LANTUS) 100 UNIT/ML SYR SQ SCH (21:20)
[2025-02-15 07:29] LABS: Glucose,Whole Blood 184 mg/dL (70-110)
[2025-02-15 08:11] LABS: African American GFR (CKD) 48 (>60 ml/min/1.73 sqM); Blood Urea Nitrogen 33 mg/dL (7-17); Calcium 8.8 mg/dL (8.4-10.2); Chloride 86 mmol/L (98-107); Glucose 164 mg/dL (74-99); Non-African American GFR(CKD) 41 (>60 ml/min/1.73 sqM); Potassium 3.5 mmol/L (3.5-5.1); Sodium 135 mmol/L (137-145)
[2025-02-15 08:15] LABS: Anisocytosis Slight; Basophils % (A) 1 %; Eosinophils # (A) 0.1 k/uL (0-0.7); Eosinophils % (A) 2 %; HCT 30.1 % (34.0-46.0); Hypochromasia Moderate; Lymphocytes # (A) 0.4 k/uL (1.0-4.8); Lymphocytes % (A) 11 %; MCHC 29.9 g/dL (31.0-37.0); MCV 100.3 fL (80.0-100.0); Macrocytosis Slight; Mean Platelet Volume 8.7; Monocytes # (A) 0.2 k/uL (0-1.0); Monocytes % (A) 5 %; Neutrophils # (A) 3.1 k/uL (1.3-7.7); Neutrophils % (A) 80 %; Platelet Count 197 k/uL (150-450); RBC 3.01 m/uL (3.80-5.40); RDW 16.9 % (11.5-15.5); WBC 3.9 k/uL (3.8-10.6)
[2025-02-15 08:18] LABS: Anion Gap 6 mmol/L
[2025-02-15 08:46] LABS: Carbon Dioxide 43 mmol/L (22-30)
[2025-02-15 11:45] LABS: Glucose,Whole Blood 242 mg/dL (70-110)
[2025-02-15] MEDS: DEXAMETHASONE SOD PHOSPHATE 10 MG/ML 1 ML VIAL IVP SCH (14:08)
--- NOTE | 2025-02-15 16:34 | P.PN ---
Subjective Progress Note Date: 02/15/25 This is a 80-year-old female with past medical history significant for valvular heart disease with previous extensive open heart procedure at [facility] done May,. She also has past medical history significant for coronary artery disease with previous PCI/stent, dual-chamber pacemaker, paroxysmal atrial fibrillation, diabetes mellitus, hypothyroidism, hypertension, hyperlipidemia, obstructive sleep apnea with home CPAP. She has had recent multiple admissions here mostly for congestive heart failure. Most recently discharged home on 02/05/2025. She presented back to the emergency room again on 02/13/2025 with complaints of increasing shortness of breath. Her daughter was sick and was tested positive for COVID and the patient tested positive yesterday and felt the need to come to the emergency room. Chest x-ray reveals evidence of congestive heart failure with pulmonary venous congestion and scattered infiltrates. Small effusions. White count globin 8.2. Platelets 176. Sodium 134. Potassium 4.2. Bicarb 40. BUN 36. Creatinine 1.20. Glucose 247. Troponin 0.043, 0.030, 0.046. proBNP 4390. Viral screen positive for COVID. She is seen in consultation in the emergency department. She is currently resting on a stretcher currently wearing her home CPAP device with 5 L of oxygen bled in. Maintaining O2 saturations in the mid 90s. Afebrile. Hemodynamically stable. Breathing a bit easier today compared to yesterday. On today's evaluation of 02/15/2025, the patient is being seen for a follow-up. The patient was hospitalized for an acute decompensated heart failure and an acute COVID-19 infection. This morning, the patient is still in the emergency. She is calm and comfortable. She is utilizing on BiPAP machine from home which is set at a pressure of 18 over 14 cm of water. She is able to tolerate the BiPAP therapy without any major difficulties. She continues to have a congested cough. Noted her COVID-19 infection exacerbated his CHF. The patient had increased pulm vessel congestion and cardiomegaly and the patient is currently being subjected to diuretics. The patient is currently on Lasix 40 mg IV every 12 hours and Zaroxolyn 2.5 mg p.o. daily and Aldactone 12.5 mg p.o. daily. She remains on metoprolol 25 mg at bedtime and 50 mg in the morning. She remains on multiple anticoagulation with Eliquis. The patient was also started on Decadron regarding her COVID-19 infection. She has an extensive cardiac history including coronary disease, previous PCI and stenting, dual-chamber pacemaker insertion and paroxysmal A-fib. She is also known to have diabetes mellitus type 2, hypertension, hypothyroidism, hyperlipidemia in addition to obstructive sleep apnea maintained on BiPAP therapy on outpatient basis. Labs were reviewed. The white cell count of 3.9, hemoglobin 9 and a platelet count of 197. BUN is 33 with a creatinine of 1.24 and a sodium levels at 135 and a potassium level is at 3.5. Her troponin was at 0.046 max. She is free of any chest pain. proBNP level was 4390. Objective - Vital Signs Vital signs: Vital Signs Temp 98.7 F 02/15/25 04:00 Pulse 62 02/15/25 04:00 Resp 20 02/15/25 00:00 BP 102/53 02/15/25 04:00 Pulse Ox 94 L 02/15/25 04:00 FiO2 Intake & Output 02/14/25 02/15/25 02/15/25 18:59 06:59 18:59 Intake Total 40 Output Total 600 Balance 40 -600 Intake: Intake, IV Titration 40 Amount Sodium Chloride 0.9% 1, 40 000 ml @ 20 mls/hr IV . Q24H [facility] Rx#:[id number] Output: Urine 600 Other: Voiding Method Diaper Diaper External Catheter External Catheter # Voids 3 # Bowel Movements 0 - Exam GENERAL EXAM: Alert, 80-year-old obese female, on her home BiPAP machine, fairly comfortable in no apparent distress. HEAD: Normocephalic. EYES: Normal reaction of pupils, equal size. NOSE: Clear with pink turbinates. THROAT: No erythema or exudates. NECK: No masses, no JVD. CHEST: No chest wall deformity. LUNGS: Equal air entry with crackles in the bilateral bases. CVS: S1 and S2 normal with an audible murmur, paced rhythm. ABDOMEN: No hepatosplenomegaly, normal bowel sounds, no guarding or rigidity. SPINE: No scoliosis or deformity SKIN: No rashes CENTRAL NERVOUS SYSTEM: No focal deficits, tone is normal in all 4 extremities. EXTREMITIES: There is 1-2+ peripheral edema. No clubbing, no cyanosis. Peripheral pulses are intact. - Labs CBC & Chem 7: 02/15/25 07:00 02/15/25 07:00 Labs: Abnormal Lab Results - Last 24 Hours (Table) 02/14/25 02/14/25 02/14/25 Range/Units 08:25 12:33 20:32 POC Glucose (mg/dL) 280 H 252 H 120 H (70-110) mg/dL 02/15/25 Range/Units 07:28 POC Glucose (mg/dL) 184 H (70-110) mg/dL Assessment and Plan Plan: Acute on chronic hypoxic respiratory failure secondary to acute exacerbation of systolic congestive heart failure and valvular heart disease, echocardiogram from 01/30/2025 showed an EF of 40 to 45% along with severe tricuspid regurgitation. Mildly reduced global LV function. The mitral valve was not adequately visualized. 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 Acute COVID infection. She has had previous COVID infection and she has received original vaccination x2 Chronic hypoxic respiratory failure, maintained on 5 L of oxygen on outpatient basis Severe pulmonary hypertension, group 2 History of obstructive sleep apnea with BIPAP 18/14 cm H20, the patient has a AirFit N20 nasal mask which she is utilizing for now Obesity, with a BMI of 46.13 kg/m History of valvular heart disease with previous aortic valve replacement, mitral valve replacement, and tricuspid valve repair, performed at the [facility] May, Dual-chamber pacemaker insertion, paced rhythm Paroxysmal A-fib maintained on anticoagulation with Eliquis Coronary artery disease with previous coronary stenting Diabetes mellitus, insulin-dependent Hypothyroidism Hyperlipidemia Hypertension Chronic anemia, hemoglobin stable at 8.2 g/dL Chronic metabolic alkalosis Plan: Continue home BiPAP machine at a pressure of 18/14 cm of water. While off the BiPAP, the patient will continue oxygen 5 L. Continue continue Zaroxolyn 2.5 mg p.o. daily Lasix 40 mg every 12 hours Continue Aldactone Start the patient on Decadron 6 mg IV push every 24 hours Monitor intake and output Monitor renal function electrolytes Anticoagulated with Eliquis Continue her home medications We will continue to follow Time with Patient: Greater than 30
[2025-02-15 16:40] LABS: Glucose,Whole Blood 140 mg/dL (70-110)
--- NOTE | 2025-02-15 22:18 | CT ---
EXAMINATION TYPE: CT chest wo con DATE OF EXAM: 02/15/2025 10:10 PM COMPARISON: 02/02/2025 CLINICAL INDICATION: Female, 80 years old with history of elev d dimer, covid; , covid TECHNIQUE: Multiple axial images were obtained through the chest. Sagittal and coronal reformats were created for review. MIP was performed on a separate workstation. Contrast used: mL of (None if empty) Oral contrast used: (None if empty) CT DLP: 1254.2 mGycm, Automated exposure control for dose reduction was used. FINDINGS: LUNGS/ PLEURA: Similar small bilateral pleural effusions with scattered groundglass opacities now mor e probably benign. HEART:The heart is mild to moderately enlarged for size. Cardiac conduction leads terminating in the right ventricle and atrium. Aortic valve repair changes. Moderate atherosclerosis of the arterial vas culature. MEDIASTINUM: Enlarged right low paratracheal lymph node measuring up to 16 mm in short axis. VASCULATURE: No aortic aneurysm. MUSCULOSKELETAL: No acute osseous abnormalities, sternotomy wires present. SOFT TISSUES/LYMPH NODES: Unremarkable. LOWER NECK: No significant findings. UPPER ABDOMEN: No nodular contour to liver partially visualized. IMPRESSION: 1. Multifocal airspace opacities are more pronounced on today's exam compatible with infectious/infl ammatory process. 2. Similar small to moderate bilateral pleural effusions. 3. [id number] cardiomegaly. 4. Diffuse calcifications throughout the left ventricle correlate for prior injury. 5. Hepatic cirrhosis. [facility], , 02/15/2025 10:15 PM
[2025-02-15 22:29] LABS: Glucose,Whole Blood 198 mg/dL (70-110)
--- NOTE | 2025-02-15 22:44 | P.CONS ---
History of Present Illness - Reason for Consult Consult date: 02/15/25 COVID-19, ? Remdesivir Requesting physician: Maye Hager - Chief Complaint Shortness of breath and cough x days - History of Present Illness Patient is a 80-year-old female with a past medical history significant for atrial Fibrillation, Diabetes Mellitus, Hearing Disorder / Deafness, Hyperlipidemia, Osteoarthritis (OA), Pneumonia, Sleep Apnea/CPAP/BIPAP, Thyroid Disorder, has been exposed to her daughter who tested positive for COVID-19 about a week ago patient has been brought into the ER 2 days ago for evaluation of increasing shortness of breath that apparently has been getting worse over the last few days patient has been complaining of cough which has been moderate intensity with occasional sputum not clear about the color denies any pleuritic chest pain patient did have some nausea but no vomiting denies any abdominal pain or diarrhea on presentation to the hospital patient was afebrile and no fever have been recorded subsequently patient was nontachycardic or hypotensive currently on 5 L current oxygen which is baseline for her patient did have white count of 3.9 with lymphopenia BUN and creatinine has been mildly elevated troponins are mildly elevated as well as AST of 43 COVID PCR positive influenza RSV negative patient did have a chest x-ray findings compatible with congestive heart failure, infectious was consulted today regarding COVID-19 and question need for remdesivir Review of Systems Positive point and negatives has been mentioned in the HPI, complete review of systems was performed and all other systems are negative Past Medical History Past Medical History: Atrial Fibrillation, Diabetes Mellitus, Hearing Disorder / Deafness, Hyperlipidemia, Osteoarthritis (OA), Pneumonia, Sleep Apnea/CPAP/BIPAP, Thyroid Disorder Additional Past Medical History / Comment(s): USES BIPAP, AORTIC VALVE REPLACEMENT , HX A-FIB WITH PNEUMONIA,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 HAD THYROID AND PARATHYROID REMOVAL. TOTAL LEFT KNEE REPLACEMENT, CATARACT RT EYE, CATARACT LEFT EYE SURGERY ,COLONOSCOPY, TVAR- 11/2018 , Aortic valve replacement 10/2018 Past Anesthesia/Blood Transfusion Reactions: No Reported Reaction Type of Cardiac Device: Permanent Pacemaker Device Placement Date:: PACEMAKER NOV 2017. Past Psychological History: No Psychological Hx Reported Smoking Status: Never smoker - Past Family History Daughter(s) Family Medical History: Deep Vein Thrombosis (DVT) Sister(s) Family Medical History: Cancer Additional Family Medical History / Comment(s): BREAST CANCER Medications and Allergies Home Medications Medication Instructions Recorded Confirmed Type Levothyroxine Sodium [Levoxyl] 175 mcg PO DAILY 10/25/20 02/13/25 History FLUoxetine HCL [PROzac] 10 mg PO DAILY 10/08/24 02/13/25 History Insulin Aspart [NovoLOG Flexpen] 40 units SQ TID-W/MEALS 10/08/24 02/13/25 History Insulin Glargine,Hum.rec.anlog 20 units SQ HS 10/08/24 02/13/25 History [Lantus Solostar Pen] Apixaban [Eliquis] 5 mg PO BID #0 10/30/24 02/13/25 Rx Calcium Carbonate [Calcium] 600 mg PO BID 01/28/25 02/13/25 History Acetaminophen Tab [Tylenol] 650 mg PO Q6HR PRN tab 02/05/25 02/13/25 Rx Atorvastatin [Lipitor] 40 mg PO HS #30 tab 02/05/25 02/13/25 Rx Dapagliflozin Propanediol [Farxiga] 10 mg PO DAILY #30 tab 02/05/25 02/13/25 Rx Furosemide [Lasix] 80 mg PO DAILY #30 tab 02/05/25 02/13/25 Rx Metoprolol Succinate (ER) [Toprol 25 mg PO HS #30 tab 02/05/25 02/13/25 Rx XL] Metoprolol Succinate (ER) [Toprol 50 mg PO DAILY tab 02/05/25 02/13/25 Rx XL] metOLazone [Zaroxolyn] 2.5 mg PO DAILY #30 tab 02/05/25 02/13/25 Rx Furosemide [Lasix] 40 mg PO DAILY@1600 02/13/25 02/13/25 History Allergies Allergy/AdvReac Type Severity Reaction Status Date / Time nitrofurantoin Allergy Rash/Hives Verified 02/13/25 17:52 macrocrystalline [From Macrodantin] phenazopyridine HCl Allergy Rash/Hives Verified 02/13/25 17:52 [From Pyridium] Physical Exam Vitals: Vital Signs Temp Pulse Pulse Resp BP BP Pulse Ox 02/15/25 14:13 98.0 F 62 22 112/62 100 02/15/25 08:34 98.2 F 67 20 111/57 98 02/15/25 04:00 98.7 F 62 102/53 94 L 02/15/25 00:00 98.7 F 61 20 105/56 95 02/14/25 20:00 98.7 F 60 20 110/45 90 L 02/14/25 16:00 97.8 F 61 18 116/43 97 Intake and Output 02/15/25 02/15/25 02/15/25 06:59 14:59 22:59 Output Total 600 Balance -600 Output: Urine 600 Other: Voiding Method Diaper External Catheter GENERAL DESCRIPTION: Elderly female up in bed, no distress. No tachypnea or accessory muscle of respiration use. HEENT: Shows Pallor , no scleral icterus. Oral mucous membrane is dry. NECK: Trachea central, no thyromegaly. LUNGS: Unlabored breathing. Crackles bilaterally HEART: S1, S2, regular rate and rhythm. ABDOMEN: Soft, no tenderness , guarding or rigidity, no organomegaly EXTREMITIES: 1+ edema of feet. SKIN: No rash, no masses palpable. NEUROLOGICAL: The patient is awake, alert, oriented x3, mood and affect normal. Results CBC & Chem 7: 02/15/25 07:00 02/15/25 07:00 Labs: Abnormal Lab Results - Last 24 Hours (Table) 02/14/25 02/15/25 02/15/25 Range/Units 20:32 07:00 07:00 RBC 3.01 L (3.80-5.40) m/uL Hgb 9.0 L (11.4-16.0) gm/dL Hct 30.1 L (34.0-46.0) % MCV 100.3 H (80.0-100.0) fL MCHC 29.9 L (31.0-37.0) g/dL RDW 16.9 H (11.5-15.5) % Lymphocytes # 0.4 L (1.0-4.8) k/uL D-Dimer (<0.60) mg/L FEU Sodium 135 L (137-145) mmol/L Chloride 86 L (98-107) mmol/L Carbon Dioxide 43 H* (22-30) mmol/L BUN 33 H (7-17) mg/dL Creatinine 1.24 H (0.52-1.04) mg/dL Glucose 164 H (74-99) mg/dL POC Glucose (mg/dL) 120 H (70-110) mg/dL 02/15/25 02/15/25 02/15/25 Range/Units 07:28 11:43 13:16 RBC (3.80-5.40) m/uL Hgb (11.4-16.0) gm/dL Hct (34.0-46.0) % MCV (80.0-100.0) fL MCHC (31.0-37.0) g/dL RDW (11.5-15.5) % Lymphocytes # (1.0-4.8) k/uL D-Dimer 2.21 H (<0.60) mg/L FEU Sodium (137-145) mmol/L Chloride (98-107) mmol/L Carbon Dioxide (22-30) mmol/L BUN (7-17) mg/dL Creatinine (0.52-1.04) mg/dL Glucose (74-99) mg/dL POC Glucose (mg/dL) 184 H 242 H (70-110) mg/dL Assessment and Plan (1) Coronavirus infection Current Visit: Yes Status: Acute Code(s): B34.2 - CORONAVIRUS INFECTION, UNSPECIFIED SNOMED Code(s): 855455915 Plan: 1patient presented to hospital with increasing shortness of breath and cough which is likely multifactorial more likely related to fluid overload she also tested positive for COVID-19 however the patient is currently not running any fever and is on 5 L nasal cannula oxygen which is baseline for her move this factor with disqualify her for remdesivir per [facility] policy 2-patient will be treated with dexamethasone zinc ascorbic acid Eliquis and see clinical response 3-we will check a CRP and procalcitonin and try to obtain sputum for Gram stain and culture if the need for any antibiotic therapy 4droplet isolation Question concern answered We will follow on clinical condition and cultures to further adjust medication if needed Thank you for this consultation we will follow the patient along with you Dictation was produced using [employer] software. please excuse any grammatical, word or spelling errors. Time with Patient: Greater than 30
--- NOTE | 2025-02-16 00:49 | PN ---
PROGRESS NOTE DATE OF SERVICE: 02/15/2025 SUBJECTIVE: This is a 80-year-old woman, who was admitted with CHF acute exacerbation, also had COPD exacerbation as well as acute COVID-19 pneumonia also. The patient possibly has some amount of COVID-19 infection and pneumonia as well. The patient is on BiPAP. Because of acute respiratory failure, the patient is being closely monitored. The patient was recently admitted to hospital. PAST MEDICAL HISTORY: Reviewed. REVIEW OF SYSTEMS: A 14-point review of systems is negative except as mentioned earlier. CURRENT MEDICATIONS: Reviewed. PHYSICAL EXAMINATION: VITAL SIGNS: Pulse is 62, blood pressure 112/62, respirations 22. HEENT: Conjunctivae normal. CARDIOVASCULAR: S1, S2. RESPIRATIONS: Bilateral scattered rhonchi and crackles. ABDOMEN: Soft, obese. LEGS: No edema. NERVOUS SYSTEM: Nonfocal. LABORATORY DATA: D-dimer is 2.21. ASSESSMENT: 1. Shortness of breath, possibly multifactorial with congestive heart failure acute exacerbation as well as chronic obstructive pulmonary disease acute exacerbation. 2. Acute COVID-19 pneumonia infection with possible bilateral pneumonia. 3. Paroxysmal atrial fibrillation. 4. Diabetes mellitus, type 2. 5. Morbid obesity. 6. Multiple complex medical issues. RECOMMENDATIONS: Recommend to continue current management and continue symptomatic treatment. I would recommend CT scan as well as ProCal as well. The patient is on BiPAP. I recommend Infectious Disease for possible Remdesivir also. Guarded prognosis. Further recommendations to follow. MMODL / IJN: [id number] /
[2025-02-16 06:06] LABS: Glucose,Whole Blood 265 mg/dL (70-110)
[2025-02-16 08:39] LABS: Anisocytosis Slight; Basophils % (A) 0 %; Eosinophils % (A) 0 %; HCT 28.4 % (34.0-46.0); HGB 8.7 gm/dL (11.4-16.0); Hypochromasia Marked; Lymphocytes # (A) 0.4 k/uL (1.0-4.8); Lymphocytes % (A) 9 %; MCH 30.6 pg (25.0-35.0); MCHC 30.8 g/dL (31.0-37.0); MCV 99.4 fL (80.0-100.0); Macrocytosis Slight; Mean Platelet Volume 7.9; Monocytes # (A) 0.1 k/uL (0-1.0); Monocytes % (A) 3 %; Neutrophils # (A) 3.4 k/uL (1.3-7.7); Neutrophils % (A) 86 %; Platelet Count 184 k/uL (150-450); RBC 2.85 m/uL (3.80-5.40); RDW 16.5 % (11.5-15.5)
[2025-02-16 08:43] LABS: African American GFR (CKD) 51 (>60 ml/min/1.73 sqM); Blood Urea Nitrogen 30 mg/dL (7-17); Chloride 86 mmol/L (98-107); Glucose 212 mg/dL (74-99); Non-African American GFR(CKD) 44 (>60 ml/min/1.73 sqM); Potassium 3.8 mmol/L (3.5-5.1); Sodium 134 mmol/L (137-145)
[2025-02-16 08:50] LABS: Anion Gap 10 mmol/L
[2025-02-16 08:55] LABS: Carbon Dioxide 38 mmol/L (22-30)
--- NOTE | 2025-02-16 08:59 | XR ---
EXAMINATION TYPE: XR chest 2V DATE OF EXAM: 02/16/2025 8:48 AM COMPARISON: Chest radiographs from 02/13/2025 CLINICAL INDICATION: Female, 80 years old with history of Heart failure with reduced EF; TECHNIQUE: XR chest 2V Frontal and lateral views of the chest. FINDINGS: Lungs/Pleura: Blunting of the left costophrenic angle. There is no evidence of right pleural effusio n, focal consolidation, or pneumothorax Pulmonary vascularity: Unremarkable. Heart/mediastinum: Cardiomediastinal silhouette is enlarged. Two lead cardiac conduction device overl gabriella the left hemithorax with lead tips projecting over the right ventricle and right atrium. Musculoskeletal: No acute osseous pathology. Midline sternotomy wires are noted. IMPRESSION: 1. Cardiomegaly and mild pulmonary vascular congestion. Correlate with BNP for congestive heart fail ure. 2. Small left pleural effusion. [facility], , 02/16/2025 8:56 AM
[2025-02-16] MEDS: SPIRONOLACTONE 25 MG TAB PO SCH (10:03)
[2025-02-16] MEDS: LOSARTAN 25 MG TAB PO SCH (10:03)
[2025-02-16 11:35] LABS: Glucose,Whole Blood 364 mg/dL (70-110)
--- NOTE | 2025-02-16 14:57 | P.PN ---
Subjective Progress Note Date: 02/16/25 This is a 80-year-old female with past medical history significant for valvular heart disease with previous extensive open heart procedure at [facility] done May,. She also has past medical history significant for coronary artery disease with previous PCI/stent, dual-chamber pacemaker, paroxysmal atrial fibrillation, diabetes mellitus, hypothyroidism, hypertension, hyperlipidemia, obstructive sleep apnea with home CPAP. She has had recent multiple admissions here mostly for congestive heart failure. Most recently discharged home on 02/05/2025. She presented back to the emergency room again on 02/13/2025 with complaints of increasing shortness of breath. Her daughter was sick and was tested positive for COVID and the patient tested positive yesterday and felt the need to come to the emergency room. Chest x-ray reveals evidence of congestive heart failure with pulmonary venous congestion and scattered infiltrates. Small effusions. White count globin 8.2. Platelets 176. Sodium 134. Potassium 4.2. Bicarb 40. BUN 36. Creatinine 1.20. Glucose 247. Troponin 0.043, 0.030, 0.046. proBNP 4390. Viral screen positive for COVID. She is seen in consultation in the emergency department. She is currently resting on a stretcher currently wearing her home CPAP device with 5 L of oxygen bled in. Maintaining O2 saturations in the mid 90s. Afebrile. Hemodynamically stable. Breathing a bit easier today compared to yesterday. On today's evaluation of 02/15/2025, the patient is being seen for a follow-up. The patient was hospitalized for an acute decompensated heart failure and an acute COVID-19 infection. This morning, the patient is still in the emergency. She is calm and comfortable. She is utilizing on BiPAP machine from home which is set at a pressure of 18 over 14 cm of water. She is able to tolerate the BiPAP therapy without any major difficulties. She continues to have a congested cough. Noted her COVID-19 infection exacerbated his CHF. The patient had increased pulm vessel congestion and cardiomegaly and the patient is currently being subjected to diuretics. The patient is currently on Lasix 40 mg IV every 12 hours and Zaroxolyn 2.5 mg p.o. daily and Aldactone 12.5 mg p.o. daily. She remains on metoprolol 25 mg at bedtime and 50 mg in the morning. She remains on multiple anticoagulation with Eliquis. The patient was also started on Decadron regarding her COVID-19 infection. She has an extensive cardiac history including coronary disease, previous PCI and stenting, dual-chamber pacemaker insertion and paroxysmal A-fib. She is also known to have diabetes mellitus type 2, hypertension, hypothyroidism, hyperlipidemia in addition to obstructive sleep apnea maintained on BiPAP therapy on outpatient basis. Labs were reviewed. The white cell count of 3.9, hemoglobin 9 and a platelet count of 197. BUN is 33 with a creatinine of 1.24 and a sodium levels at 135 and a potassium level is at 3.5. Her troponin was at 0.046 max. She is free of any chest pain. proBNP level was 4390. On 02/16/2025, the patient is being seen for a follow-up with the patient is feeling better compared to yesterday. She seems to be less bronchospastic and wheezy and less congested. The patient is utilizing her BiPAP from home. She remains in the negative fluid balance as the patient is being diuresed with IV Lasix 40 mg IV every 12 hours. The patient is also on Decadron 6 mg IV every 24 hours regarding her acute COVID-19 infection. She remains on Aldactone 12.5 mg p.o. daily. Rest of the medications are unchanged. She remains on anti coagulation with Eliquis 5 mg p.o. twice a day. The white cell count is at 4 with a hemoglobin of 8.7 and a platelet count of 184. BUN 30 with a creatinine of 1.1 and a sodium levels at 134. No other significant events overnight. Blood sugar is slightly elevated. The patient was given Lantus insulin 20 units along with NovoLog 40 units 3 times daily with meals. She will be placed also on sliding scale coverage. She is on Farxiga 10 mg p.o. daily. Objective - Vital Signs Vital signs: Vital Signs Temp 97.8 F 02/16/25 09:59 Pulse 63 02/16/25 09:59 Resp 20 02/16/25 09:59 BP 102/53 02/16/25 09:59 Pulse Ox 97 02/16/25 09:59 FiO2 Intake & Output 02/15/25 02/16/25 02/16/25 18:59 06:59 18:59 Output Total 500 Balance -500 Weight 117.5 kg Output: Urine 500 Other: Voiding Method External Catheter External Catheter - Exam GENERAL EXAM: Alert, 80-year-old obese female, on her home BiPAP machine, fairly comfortable in no apparent distress. HEAD: Normocephalic. EYES: Normal reaction of pupils, equal size. NOSE: Clear with pink turbinates. THROAT: No erythema or exudates. NECK: No masses, no JVD. CHEST: No chest wall deformity. LUNGS: Equal air entry with crackles in the bilateral bases. CVS: S1 and S2 normal with an audible murmur, paced rhythm. ABDOMEN: No hepatosplenomegaly, normal bowel sounds, no guarding or rigidity. SPINE: No scoliosis or deformity SKIN: No rashes CENTRAL NERVOUS SYSTEM: No focal deficits, tone is normal in all 4 extremities. EXTREMITIES: There is 1-2+ peripheral edema. No clubbing, no cyanosis. Peripheral pulses are intact. - Labs CBC & Chem 7: 02/16/25 07:14 02/16/25 07:14 Labs: Abnormal Lab Results - Last 24 Hours (Table) 02/15/25 02/15/25 02/15/25 Range/Units 11:43 13:16 16:38 RBC (3.80-5.40) m/uL Hgb (11.4-16.0) gm/dL Hct (34.0-46.0) % MCHC (31.0-37.0) g/dL RDW (11.5-15.5) % Lymphocytes # (1.0-4.8) k/uL D-Dimer 2.21 H (<0.60) mg/L FEU Sodium (137-145) mmol/L Chloride (98-107) mmol/L Carbon Dioxide (22-30) mmol/L BUN (7-17) mg/dL Creatinine (0.52-1.04) mg/dL Glucose (74-99) mg/dL POC Glucose (mg/dL) 242 H 140 H (70-110) mg/dL 02/15/25 02/16/25 02/16/25 Range/Units 22:25 05:58 07:14 RBC 2.85 L (3.80-5.40) m/uL Hgb 8.7 L (11.4-16.0) gm/dL Hct 28.4 L (34.0-46.0) % MCHC 30.8 L (31.0-37.0) g/dL RDW 16.5 H (11.5-15.5) % Lymphocytes # 0.4 L (1.0-4.8) k/uL D-Dimer (<0.60) mg/L FEU Sodium (137-145) mmol/L Chloride (98-107) mmol/L Carbon Dioxide (22-30) mmol/L BUN (7-17) mg/dL Creatinine (0.52-1.04) mg/dL Glucose (74-99) mg/dL POC Glucose (mg/dL) 198 H 265 H (70-110) mg/dL 02/16/25 Range/Units 07:14 RBC (3.80-5.40) m/uL Hgb (11.4-16.0) gm/dL Hct (34.0-46.0) % MCHC (31.0-37.0) g/dL RDW (11.5-15.5) % Lymphocytes # (1.0-4.8) k/uL D-Dimer (<0.60) mg/L FEU Sodium 134 L (137-145) mmol/L Chloride 86 L (98-107) mmol/L Carbon Dioxide 38 H (22-30) mmol/L BUN 30 H (7-17) mg/dL Creatinine 1.17 H (0.52-1.04) mg/dL Glucose 212 H (74-99) mg/dL POC Glucose (mg/dL) (70-110) mg/dL Assessment and Plan Plan: Acute on chronic hypoxic respiratory failure secondary to acute exacerbation of systolic congestive heart failure and valvular heart disease, echocardiogram from 01/30/2025 showed an EF of 40 to 45% along with severe tricuspid regurgitat ion. Mildly reduced global LV function. The mitral valve was not adequately visualized. 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 The patient remains on 5 L of oxygen by nasal cannula. Clinically improving. Acute COVID infection. She has had previous COVID infection and she has received original vaccination x2 Chronic hypoxic respiratory failure, maintained on 5 L of oxygen on outpatient basis Severe pulmonary hypertension, group 2 History of obstructive sleep apnea with BIPAP 18/14 cm H20, the patient has a AirFit N20 nasal mask which she is utilizing for now Obesity, with a BMI of 46.13 kg/m History of valvular heart disease with previous aortic valve replacement, mitral valve replacement, and tricuspid valve repair, performed at the [facility] May, Dual-chamber pacemaker insertion, paced rhythm Paroxysmal A-fib maintained on anticoagulation with Eliquis Coronary artery disease with previous coronary stenting Diabetes mellitus, insulin-dependent Hypothyroidism Hyperlipidemia Hypertension Chronic anemia, hemoglobin stable at 8.2 g/dL Chronic metabolic alkalosis Plan: Continue same treatment. The patient feels better and she seems to be less short of breath. Patient currently on 5 L of O2 nasal cannula Continue home BiPAP machine at a pressure of 18/14 cm of water. While off the BiPAP, the patient will continue oxygen 5 L. Continue continue Zaroxolyn 2.5 mg p.o. daily Lasix 40 mg every 12 hours Continue Aldactone Continue Decadron 6 mg IV push every 24 hours Lantus insulin for blood sugar control in addition to NovoLog with meals and sliding scale coverage Monitor intake and output Monitor renal function electrolytes Anticoagulated with Eliquis Continue her home medications We will continue to follow Time with Patient: Greater than 30
--- NOTE | 2025-02-16 15:06 | P.PN ---
Subjective Progress Note Date: 02/15/25 The patient is a 80-year-old female patient who is known to our service from before with extensive cardiac history consistent of valvular heart disease status post aortic valve replacement and mitral valve replacement and tricuspid valve repair in May 2024 performed at [facility] as well as history of heart failure as well as cardiomyopathy and also diabetes and hypertension and dyslipidemia and chronic kidney disease and chronic anemia secondary to iron deficiency anemia and permanent pacemaker and permanent atrial fibrillation. The patient was seen by our service earlier this month after she was admitted with heart failure and she was discharged on oral diuretics and according to her she has been compliant with it. She presented back to the hospital not feeling well experiencing progressive exertional dyspnea associated with cough and congestions and fever as well and also bilateral lower extremities edema. No pain in the chest or dizziness or lightheadedness or any feeling of heart racing or fluttering or presyncope or syncope which she stated that she has been compliant with the current medical regimen including the current dose of oral diuretics. She stated that also she has been compliant with low-sodium diet. She underwent further evaluation including COVID test came in to be abnormal and also she underwent a chest x-ray showed finding consistent with heart failure as well as NT proBNP came to be around 4000. Hemoglobin came to be around 8 which is her baseline. Kidney function is at baseline as well. The EKG showed underlying atrial fibrillation with ventricular paced rhythm. She underwent an echo in January 2024 showed mildly impaired LV function with overall normally functioning aortic and mitral prosthesis. When she presented to the hospital she was hypoxic requiring oxygen. The physical examination is remarkable for extensive bilateral expiratory wheezing with a distant heart sounds and bilateral lower extremities pitting edema noted as well 02/15/2025 Patient continues to have shortness of breath, still appears volume overloaded 1-2+ pitting edema bilateral extremity, crackles and wheezing and mild rhonchi audible in bilateral lung castillo Elevated JVP Assessment Acute hypoxic respiratory failure Heart failure exacerbation secondary to HFrEF Permanent atrial fibrillation with controlled heart rate Permanent pacemaker Valvular heart disease as described above Multiple comorbid conditions including morbid obesity and diabetes and hyper tension and dyslipidemia and chronic kidney disease and chronic anemia Plan Continue the current medical regimen including current dose of IV diuretics Continue monitor the kidney function and electrolytes No need to repeat the echocardiogram in the light of recent echocardiogram as described above Follow-up with the patient Objective - Vital Signs Vital signs: Vital Signs Temp 97.8 F 02/16/25 09:59 Pulse 53 L 02/16/25 13:42 Resp 18 02/16/25 13:42 BP 119/56 02/16/25 13:42 Pulse Ox 98 02/16/25 13:42 FiO2 Intake & Output 02/15/25 02/16/25 02/16/25 18:59 06:59 18:59 Output Total 500 Balance -500 Weight 117.5 kg 117.5 kg Output: Urine 500 Other: Voiding Method External Catheter External Catheter - Labs CBC & Chem 7: 02/16/25 07:14 02/16/25 07:14 Labs: Abnormal Lab Results - Last 24 Hours (Table) 02/15/25 02/15/25 02/16/25 Range/Units 16:38 22:25 05:58 RBC (3.80-5.40) m/uL Hgb (11.4-16.0) gm/dL Hct (34.0-46.0) % MCHC (31.0-37.0) g/dL RDW (11.5-15.5) % Lymphocytes # (1.0-4.8) k/uL Sodium (137-145) mmol/L Chloride (98-107) mmol/L Carbon Dioxide (22-30) mmol/L BUN (7-17) mg/dL Creatinine (0.52-1.04) mg/dL Glucose (74-99) mg/dL POC Glucose (mg/dL) 140 H 198 H 265 H (70-110) mg/dL 02/16/25 02/16/25 02/16/25 Range/Units 07:14 07:14 11:34 RBC 2.85 L (3.80-5.40) m/uL Hgb 8.7 L (11.4-16.0) gm/dL Hct 28.4 L (34.0-46.0) % MCHC 30.8 L (31.0-37.0) g/dL RDW 16.5 H (11.5-15.5) % Lymphocytes # 0.4 L (1.0-4.8) k/uL Sodium 134 L (137-145) mmol/L Chloride 86 L (98-107) mmol/L Carbon Dioxide 38 H (22-30) mmol/L BUN 30 H (7-17) mg/dL Creatinine 1.17 H (0.52-1.04) mg/dL Glucose 212 H (74-99) mg/dL POC Glucose (mg/dL) 364 H (70-110) mg/dL
--- NOTE | 2025-02-16 15:09 | P.PN ---
Subjective Progress Note Date: 02/16/25 The patient is a 80-year-old female patient who is known to our service from before with extensive cardiac history consistent of valvular heart disease status post aortic valve replacement and mitral valve replacement and tricuspid valve repair in May 2024 performed at [facility] as well as history of heart failure as well as cardiomyopathy and also diabetes and hypertension and dyslipidemia and chronic kidney disease and chronic anemia secondary to iron deficiency anemia and permanent pacemaker and permanent atrial fibrillation. The patient was seen by our service earlier this month after she was admitted with heart failure and she was discharged on oral diuretics and according to her she has been compliant with it. She presented back to the hospital not feeling well experiencing progressive exertional dyspnea associated with cough and congestions and fever as well and also bilateral lower extremities edema. No pain in the chest or dizziness or lightheadedness or any feeling of heart racing or fluttering or presyncope or syncope which she stated that she has been compliant with the current medical regimen including the current dose of oral diuretics. She stated that also she has been compliant with low-sodium diet. She underwent further evaluation including COVID test came in to be abnormal and also she underwent a chest x-ray showed finding consistent with heart failure as well as NT proBNP came to be around 4000. Hemoglobin came to be around 8 which is her baseline. Kidney function is at baseline as well. The EKG showed underlying atrial fibrillation with ventricular paced rhythm. She underwent an echo in January 2024 showed mildly impaired LV function with overall normally functioning aortic and mitral prosthesis. When she presented to the hospital she was hypoxic requiring oxygen. The physical examination is remarkable for extensive bilateral expiratory wheezing with a distant heart sounds and bilateral lower extremities pitting edema noted as well 02/15/2025 Patient continues to have shortness of breath, still appears volume overloaded 1-2+ pitting edema bilateral extremity, crackles and wheezing and mild rhonchi audible in bilateral lung castillo Elevated JVP 02/16/2025 BP 160/65, heart rate 65 bpm, Telemetry shows underlying rhythm being atrial fibrillation with V paced rhythm Hemoglobin 8.7, BUN 30, creatinine 1.17, Assessment Acute hypoxic respiratory failure Heart failure exacerbation secondary to HFrEF with a EF of 40 to 45% Severe pulm hypertension Permanent atrial fibrillation with controlled heart rate Permanent pacemaker Valvular heart disease as described above Morbid obesity with MARILOU Multiple comorbid conditions including morbid obesity and diabetes and hypertension and dyslipidemia and chronic kidney disease and chronic anemia Plan Eliquis 5 mg twice daily, metoprolol 50 mg in a.m., 25 mg in evening Lasix 4 mg IV twice daily, metolazone 2.5 mg daily, Aldactone 12.5 mg daily Farxiga 10 mg daily Not on ARNI due to low BP Continue IV diuretics for next 24 to 48 hours and then transition to Bumex as patient had CHF exacerbation while being compliant to Lasix. Objective - Vital Signs Vital signs: Vital Signs Temp 97.8 F 02/16/25 09:59 Pulse 53 L 02/16/25 13:42 Resp 18 02/16/25 13:42 BP 119/56 02/16/25 13:42 Pulse Ox 98 02/16/25 13:42 FiO2 Intake & Output 02/15/25 02/16/25 02/16/25 18:59 06:59 18:59 Output Total 500 Balance -500 Weight 117.5 kg 117.5 kg Output: Urine 500 Other: Voiding Method External Catheter External Catheter - Labs CBC & Chem 7: 02/16/25 07:14 02/16/25 07:14 Labs: Abnormal Lab Results - Last 24 Hours (Table) 02/15/25 02/15/25 02/16/25 Range/Units 16:38 22:25 05:58 RBC (3.80-5.40) m/uL Hgb (11.4-16.0) gm/dL Hct (34.0-46.0) % MCHC (31.0-37.0) g/dL RDW (11.5-15.5) % Lymphocytes # (1.0-4.8) k/uL Sodium (137-145) mmol/L Chloride (98-107) mmol/L Carbon Dioxide (22-30) mmol/L BUN (7-17) mg/dL Creatinine (0.52-1.04) mg/dL Glucose (74-99) mg/dL POC Glucose (mg/dL) 140 H 198 H 265 H (70-110) mg/dL 02/16/25 02/16/25 02/16/25 Range/Units 07:14 07:14 11:34 RBC 2.85 L (3.80-5.40) m/uL Hgb 8.7 L (11.4-16.0) gm/dL Hct 28.4 L (34.0-46.0) % MCHC 30.8 L (31.0-37.0) g/dL RDW 16.5 H (11.5-15.5) % Lymphocytes # 0.4 L (1.0-4.8) k/uL Sodium 134 L (137-145) mmol/L Chloride 86 L (98-107) mmol/L Carbon Dioxide 38 H (22-30) mmol/L BUN 30 H (7-17) mg/dL Creatinine 1.17 H (0.52-1.04) mg/dL Glucose 212 H (74-99) mg/dL POC Glucose (mg/dL) 364 H (70-110) mg/dL
[2025-02-16] MEDS ORDERED: IPRATROPIUM-ALBUTEROL 3 ML NEB INHALATION PRN (15:39)
--- NOTE | 2025-02-16 15:52 | P.PN ---
Subjective Progress Note Date: 02/16/25 Principal diagnosis: Reason for follow-up is COVID-19 Patient is a 80-year-old female with a past medical history significant for atrial Fibrillation, Diabetes Mellitus, Hearing Disorder / Deafness, Hyperlipidemia, Osteoarthritis (OA), Pneumonia, Sleep Apnea/CPAP/BIPAP , Thyroid Disorder, has been exposed to her daughter who tested positive for COVID-19 about a week ago presented hospital with shortness of breath and cough has been diagnosed with COVID-19 and possible component of CHF exacerbation. On today's evaluation that is 02/16/2025, Patient is afebrile this morning patient denies having any chest pain breathing more comfortably did have a cough not bringing up any sputum patient is currently on 5 L nasal cannula oxygen no abdominal pain or diarrhea. Patient white count is 4.0, creatinine is 1.17 Objective - Vital Signs Vital signs: Vital Signs Temp 97.8 F 02/16/25 09:59 Pulse 53 L 02/16/25 13:42 Resp 18 02/16/25 13:42 BP 119/56 02/16/25 13:42 Pulse Ox 98 02/16/25 13:42 FiO2 Intake & Output 02/15/25 02/16/25 02/16/25 18:59 06:59 18:59 Output Total 500 Balance -500 Weight 117.5 kg 117.5 kg Output: Urine 500 Other: Voiding Method External Catheter External Catheter - Exam GENERAL DESCRIPTION: An elderly female up in bed in no distress RESPIRATORY SYSTEM: Unlabored breathing crackles Bilaterally HEART: S1 S2 regular rate and rhythm , ABDOMEN: Soft , no tenderness EXTREMITIES: Trace edema feet - Labs CBC & Chem 7: 02/16/25 07:14 02/16/25 07:14 Labs: Abnormal Lab Results - Last 24 Hours (Table) 02/15/25 02/15/25 02/16/25 Range/Units 16:38 22:25 05:58 RBC (3.80-5.40) m/uL Hgb (11.4-16.0) gm/dL Hct (34.0-46.0) % MCHC (31.0-37.0) g/dL RDW (11.5-15.5) % Lymphocytes # (1.0-4.8) k/uL Sodium (137-145) mmol/L Chloride (98-107) mmol/L Carbon Dioxide (22-30) mmol/L BUN (7-17) mg/dL Creatinine (0.52-1.04) mg/dL Glucose (74-99) mg/dL POC Glucose (mg/dL) 140 H 198 H 265 H (70-110) mg/dL 02/16/25 02/16/25 02/16/25 Range/Units 07:14 07:14 11:34 RBC 2.85 L (3.80-5.40) m/uL Hgb 8.7 L (11.4-16.0) gm/dL Hct 28.4 L (34.0-46.0) % MCHC 30.8 L (31.0-37.0) g/dL RDW 16.5 H (11.5-15.5) % Lymphocytes # 0.4 L (1.0-4.8) k/uL Sodium 134 L (137-145) mmol/L Chloride 86 L (98-107) mmol/L Carbon Dioxide 38 H (22-30) mmol/L BUN 30 H (7-17) mg/dL Creatinine 1.17 H (0.52-1.04) mg/dL Glucose 212 H (74-99) mg/dL POC Glucose (mg/dL) 364 H (70-110) mg/dL Assessment and Plan (1) Coronavirus infection Current Visit: Yes Status: Acute Code(s): B34.2 - CORONAVIRUS INFECTION, UNSPECIFIED SNOMED Code(s): 816014912 Plan: 1patient presented to hospital with increasing shortness of breath and cough which is likely multifactorial more likely related to fluid overload she also tested positive for COVID-19 however the patient is currently not running any f ever and is on 5 L nasal cannula oxygen which is baseline for her and no need for any worsening oxygen requirement 2-patient seem to have shown some clinical problem to continue with dexamethasone zinc ascorbic acid Eliquis and monitor clinical course closely Dictation was produced using [employer] dictation software. please excuse any grammatical, word or spelling errors. Time with Patient: Less than 30
[2025-02-16] MEDS ORDERED: ALBUTEROL HFA INHALER INHALATION PRN (16:18)
[2025-02-16 16:20] LABS: Glucose,Whole Blood 292 mg/dL (70-110)
[2025-02-16] MEDS: IPRATROPIUM-ALBUTEROL 3 ML NEB INHALATION SCH (16:31)
[2025-02-16] MEDS: ALBUTEROL HFA INHALER INHALATION SCH (17:07)
[2025-02-16] MEDS: TIOTROPIUM 2.5 MCG INHALER INHALATION SCH (17:07)
[2025-02-16] MEDS ORDERED: methylPREDNISolone SOD SUCCI 125 MG/2 ML VIAL IV SCH (18:00)
--- NOTE | 2025-02-16 18:35 | P.CONS ---
History of Present Illness - Reason for Consult Consult date: 02/16/25 anemia Requesting physician: Deloris Roger - Chief Complaint SOB, cough - History of Present Illness Mrs. Perales is a pleasant 80-year-old female patient initially seen in consult 10/28/2024 for severe anemia. She presented with progressive weakness and shortness of breath, hemoglobin 5.5 at that time. Patient was on Eliquis and baby aspirin on admission for a history of cardiac stents and heart valve replacement, also a history of atrial fibrillation. 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 She received IV iron inpatient, as well as as an outpatient in the office. During her hospitalization she had left-sided thoracentesis for a new pleural effusion, with cytology negative. She was seen for her first office visit on 01/06/25. In that time she remained quite debilitated and short of breath on exertion. She was able to ambulate for short distances only inside the house and was using a wheelchair outside. She had been on oxygen since hospitalization and reported overall low energy and variable appetite. She was placed back on baby aspirin and eliquis during her hospitalization and has continued on the same. She does not report any obvious bleeding. She has received iron in the outpatient setting. She was due for another dose of iron outpatient today. After hematological assessment, it was felt that iron deficient anemia was secondary to small bowel AVM related blood losses, exacerbated by anticoagulation and antiplatelet therapies. Patient did have improvement in her hemoglobin after parenteral iron infusions. It is noted that patient does have CKD which will affect hematopoiesis. Patient has remained on follow-up as directed, best hemoglobin achieved in the office lab results, was 9. Pt was recently seen on consult on 02/03/25. Hemoglobin 8.8 on admission, and later found at 7.9 today. She did receive IV iron during that admit, and was scheduled for 2nd feraheme infusion on 02/18/25. Pt represented to ER due to SOB and cough. She was admitted for CHF exacerbation and COVID infection. T max 100.1. BNP 4390. IV lasix started. WBC 4.0, hgb 8.7, MCV , plt 184,000. Creatinine 1.17, GFR 44. Denies acute b;eeding ,hematochezia, and melena. Iron studies obtained on 02/03/25, showed iron saturation 15%, ferritin 276. 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 HAD THYROID AND PARATHYROID REMOVAL. TOTAL LEFT KNEE REPLACEMENT, CATARACT RT EYE, CATARACT LEFT EYE SURGERY ,COLONOSCOPY, TVAR- 11/2018 , Aortic valve replacement 10/2018 Past Anesthesia/Blood Transfusion Reactions: No Reported Reaction Type of Cardiac Device: Permanent Pacemaker Device Placement Date:: PACEMAKER NOV 2017. Past Psychological History: No Psychological Hx Reported Smoking Status: Never smoker - Past Family History Daughter(s) Family Medical History: Deep Vein Thrombosis (DVT) Sister(s) Family Medical History: Cancer Additional Family Medical History / Comment(s): BREAST CANCER Medications and Allergies Home Medications Medication Instructions Recorded Confirmed Type Levothyroxine Sodium [Levoxyl] 175 mcg PO DAILY 10/25/20 02/13/25 History FLUoxetine HCL [PROzac] 10 mg PO DAILY 10/08/24 02/13/25 History Insulin Aspart [NovoLOG Flexpen] 40 units SQ TID-W/MEALS 10/08/24 02/13/25 H istory Insulin Glargine,Hum.rec.anlog 20 units SQ HS 10/08/24 02/13/25 History [Lantus Solostar Pen] Apixaban [Eliquis] 5 mg PO BID #0 10/30/24 02/13/25 Rx Calcium Carbonate [Calcium] 600 mg PO BID 01/28/25 02/13/25 History Acetaminophen Tab [Tylenol] 650 mg PO Q6HR PRN tab 02/05/25 02/13/25 Rx Atorvastatin [Lipitor] 40 mg PO HS #30 tab 02/05/25 02/13/25 Rx Dapagliflozin Propanediol [Farxiga] 10 mg PO DAILY #30 tab 02/05/25 02/13/25 Rx Furosemide [Lasix] 80 mg PO DAILY #30 tab 02/05/25 02/13/25 Rx Metoprolol Succinate (ER) [Toprol 25 mg PO HS #30 tab 02/05/25 02/13/25 Rx XL] Metoprolol Succinate (ER) [Toprol 50 mg PO DAILY tab 02/05/25 02/13/25 Rx XL] metOLazone [Zaroxolyn] 2.5 mg PO DAILY #30 tab 02/05/25 02/13/25 Rx Furosemide [Lasix] 40 mg PO DAILY@1600 02/13/25 02/13/25 History Allergies Allergy/AdvReac Type Severity Reaction Status Date / Time nitrofurantoin Allergy Rash/Hives Verified 02/13/25 17:52 macrocrystalline [From Macrodantin] phenazopyridine HCl Allergy Rash/Hives Verified 02/13/25 17:52 [From Pyridium] Physical Exam Vitals: Vital Signs Temp Pulse Pulse Resp BP BP Pulse Ox 02/16/25 09:59 97.8 F 63 20 102/53 97 02/16/25 04:31 65 18 116/65 96 02/16/25 00:20 60 20 109/59 94 L 02/15/25 22:23 98.5 F 63 20 157/69 96 02/15/25 21:03 98.7 F 62 19 120/60 96 02/15/25 17:29 100.1 F H 63 21 94/40 97 02/15/25 14:13 98.0 F 62 22 112/62 100 Intake and Output 02/15/25 02/16/25 02/16/25 22:59 06:59 14:59 Output Total 500 Balance -500 Output: Urine 500 Other: Voiding Method External Catheter External Catheter Weight 117.934 kg 117.5 kg 117.5 kg - Constitutional General appearance: average body habitus, no acute distress - EENT Eyes: anicteric sclerae, EOMI ENT: hearing grossly normal - Respiratory breathing is even and unlabored Respiratory: right: prolonged inspiration - Cardiovascular skin warm and dry - Gastrointestinal General gastrointestinal: soft, no tenderness - Integumentary Integumentary: no cyanotic - Neurologic Neurologic: CNII-XII intact - Musculoskeletal Musculoskeletal: strength equal bilaterally - Psychiatric Psychiatric: A&O x's 3 Results CBC & Chem 7: 02/16/25 07:14 02/16/25 07:14 Labs: Abnormal Lab Results - Last 24 Hours (Table) 02/15/25 02/15/25 02/15/25 Range/Units 11:43 13:16 16:38 RBC (3.80-5.40) m/uL Hgb (11.4-16.0) gm/dL Hct (34.0-46.0) % MCHC (31.0-37.0) g/dL RDW (11.5-15.5) % Lymphocytes # (1.0-4.8) k/uL D-Dimer 2.21 H (<0.60) mg/L FEU Sodium (137-145) mmol/L Chloride (98-107) mmol/L Carbon Dioxide (22-30) mmol/L BUN (7-17) mg/dL Creatinine (0.52-1.04) mg/dL Glucose (74-99) mg/dL POC Glucose (mg/dL) 242 H 140 H (70-110) mg/dL 02/15/25 02/16/25 02/16/25 Range/Units 22:25 05:58 07:14 RBC 2.85 L (3.80-5.40) m/uL Hgb 8.7 L (11.4-16.0) gm/dL Hct 28.4 L (34.0-46.0) % MCHC 30.8 L (31.0-37.0) g/dL RDW 16.5 H (11.5-15.5) % Lymphocytes # 0.4 L (1.0-4.8) k/uL D-Dimer (<0.60) mg/L FEU Sodium (137-145) mmol/L Chloride (98-107) mmol/L Carbon Dioxide (22-30) mmol/L BUN (7-17) mg/dL Creatinine (0.52-1.04) mg/dL Glucose (74-99) mg/dL POC Glucose (mg/dL) 198 H 265 H (70-110) mg/dL 02/16/25 02/16/25 Range/Units 07:14 11:34 RBC (3.80-5.40) m/uL Hgb (11.4-16.0) gm/dL Hct (34.0-46.0) % MCHC (31.0-37.0) g/dL RDW (11.5-15.5) % Lymphocytes # (1.0-4.8) k/uL D-Dimer (<0.60) mg/L FEU Sodium 134 L (137-145) mmol/L Chloride 86 L (98-107) mmol/L Carbon Dioxide 38 H (22-30) mmol/L BUN 30 H (7-17) mg/dL Creatinine 1.17 H (0.52-1.04) mg/dL Glucose 212 H (74-99) mg/dL POC Glucose (mg/dL) 364 H (70-110) mg/dL Chest x-ray: report reviewed CT scan - chest: report reviewed Assessment and Plan (1) CHF (congestive heart failure) Current Visit: Yes Status: Acute Code(s): I50.9 - HEART FAILURE, UNSPECIFIED SNOMED Code(s): 30505013 (2) Coronavirus infection Current Visit: Yes Status: Acute Code(s): B34.2 - CORONAVIRUS INFECTION, UNSPECIFIED SNOMED Code(s): 012811346 (3) Iron deficiency anemia Current Visit: Yes Status: Chronic Priority: Medium Code(s): D50.9 - IRON DEFICIENCY ANEMIA, UNSPECIFIED SNOMED Code(s): 87491293 Plan: Patient is a 80 year old female with a history of iron deficiency anemia. Admitted for CHF exacerbation and COVID-19 infection Iron deficiency anemia -History of SUZNANA, follows with Dr. Duenas -Etiology of patient's iron deficiency is felt to be secondary to chronic, small volume blood loss from gastrointestinal AVMs, exacerbated by anticoagulation and antiplatelet therapy for atrial fibrillation and cardiovascular stenting/valves, and also component of CKD -She was maintaining a hemoglobin between 8 and 9 on recent checks in the office. She was currently receiving additional doses of IV iron outpatient. During last admit, pt received IV iron. She was scheduled for 2nd dose feraheme on 02/18. Due to acute COVID infection will postpone iron transfusion till next week -Hgb stable today at 8.7. Also contributing to patient's anemia is felt to be a component of chronic kidney disease. Pending adequate iron supplementation before considering the addition of WENDY. -Patient will stay on follow-up as already scheduled with Dr. Duenas -Continue to monitor CBC
[2025-02-16 20:06] LABS: Glucose,Whole Blood 193 mg/dL (70-110)
[2025-02-16] MEDS: INSULIN GLARGINE (LANTUS) 100 UNIT/ML SYR SQ SCH (21:37)
--- NOTE | 2025-02-16 22:34 | PN ---
PROGRESS NOTE DATE OF SERVICE: 02/16/2025 SUBJECTIVE: This is a 80-year-old woman, who was admitted with shortness of breath multifactorial, COPD and CHF acute exacerbation also, had COVID also. The patient also has COVID pneumonia, which is rather extensive bilaterally with some pleural effusion also. PAST MEDICAL HISTORY: Reviewed. REVIEW OF SYSTEMS: Fourteen-point review of systems is negative except as mentioned earlier. CURRENT MEDICATIONS: Reviewed. PHYSICAL EXAMINATION: VITAL SIGNS: Pulse is 53, blood pressure 119/56, respirations 18. HEENT: Conjunctivae normal. CARDIOVASCULAR: S1, S2. RESPIRATIONS: Breath sounds diminished at the bases. Bilateral scattered rhonchi and crackles. ABDOMEN: Soft. NERVOUS SYSTEM: Nonfocal. LABORATORY DATA: Glucose 364. ASSESSMENT: 1. Shortness of breath possibly multifactorial with congestive heart failure acute exacerbation as well as chronic obstructive pulmonary disease acute exacerbation. 2. Acute COVID-19 pneumonia bilateral with acute COVID-19 infection. 3. Paroxysmal atrial fibrillation. 4. Diabetes mellitus, type 2. 5. Morbid obesity. 6. Multiple complex medical issues. RECOMMENDATIONS AND DISCUSSION: I recommend to continue current management and continue symptomatic treatment. Monitor blood sugars closely. The patient is receiving Humalog 40 t.i.d. with Lantus 20 at bedtime. I would recommend to increase the Lantus to 30 at bedtime and monitor closely. Closely follow with multiple consultants. The patient apparently is not a candidate for remdesivir. Prognosis guarded. Further recommendations to follow. MMODL / IJN: [id number] /
[2025-02-17 06:03] LABS: Glucose,Whole Blood 129 mg/dL (70-110)
[2025-02-17 11:07] LABS: Glucose,Whole Blood 204 mg/dL (70-110)
[2025-02-17 11:18] LABS: African American GFR (CKD) 48 (>60 ml/min/1.73 sqM); Blood Urea Nitrogen 36 mg/dL (7-17); Chloride 84 mmol/L (98-107); Glucose 141 mg/dL (74-99); Magnesium 1.8 mg/dL (1.6-2.3); Non-African American GFR(CKD) 42 (>60 ml/min/1.73 sqM); Sodium 137 mmol/L (137-145)
[2025-02-17 11:24] LABS: Anion Gap 10 mmol/L
[2025-02-17 11:35] LABS: Carbon Dioxide 43 mmol/L (22-30)
--- NOTE | 2025-02-17 11:40 | P.PN ---
Subjective Progress Note Date: 02/17/25 Principal diagnosis: Reason for follow-up is COVID-19 Patient is a 80-year-old female with a past medical history significant for atrial Fibrillation, Diabetes Mellitus, Hearing Disorder / Deafness, Hyperlipidemia, Osteoarthritis (OA), Pneumonia, Sleep Apnea/CPAP/BIPAP , Thyroid Disorder, has been exposed to her daughter who tested positive for COVID-19 about a week ago presented hospital with shortness of breath and cough has been diagnosed with COVID-19 and possible component of CHF exacerbation. On today's evaluation that is 02/17/2025,the patient denies any fever or any chills, patient is breathing slightly comfortably currently on 5 L nasal cannula oxygen, the patient denies chest pain shortness of breath and no worsening cough, patient denies abdominal pain, no nausea vomiting or diarrhea. Patient did have a creatinine 1.23 no CBC was done today sputum not collected Objective - Vital Signs Vital signs: Vital Signs Temp 98.2 F 02/16/25 20:31 Pulse 67 02/17/25 08:10 Resp 18 02/17/25 08:10 BP 103/54 02/17/25 08:10 Pulse Ox 96 02/17/25 08:10 FiO2 Intake & Output 02/16/25 02/17/25 02/17/25 18:59 06:59 18:59 Intake Total 500 180 Output Total 1150 900 Balance -650 -720 Weight 117.5 kg 117 kg Intake: Oral 500 180 Output: Urine 1150 900 Other: Voiding Method External Catheter Toilet Toilet External Catheter # Voids 2 3 - Exam GENERAL DESCRIPTION: An elderly female up in bed in no distress RESPIRATORY SYSTEM: Unlabored breathing crackles Bilaterally HEART: S1 S2 regular rate and rhythm , ABDOMEN: Soft , no tenderness EXTREMITIES: Trace edema feet - Labs CBC & Chem 7: 02/16/25 07:14 02/17/25 10:36 Labs: Abnormal Lab Results - Last 24 Hours (Table) 02/16/25 02/16/25 02/17/25 Range/Units 16:18 20:03 05:57 Chloride (98-107) mmol/L Carbon Dioxide (22-30) mmol/L BUN (7-17) mg/dL Creatinine (0.52-1.04) mg/dL Glucose (74-99) mg/dL POC Glucose (mg/dL) 292 H 193 H 129 H (70-110) mg/dL 02/17/25 02/17/25 Range/Units 10:36 11:05 Chloride 84 L (98-107) mmol/L Carbon Dioxide 43 H* (22-30) mmol/L BUN 36 H (7-17) mg/dL Creatinine 1.23 H (0.52-1.04) mg/dL Glucose 141 H (74-99) mg/dL POC Glucose (mg/dL) 204 H (70-110) mg/dL Assessment and Plan (1) Coronavirus infection Current Visit: Yes Status: Acute Code(s): B34.2 - CORONAVIRUS INFECTION, UNSPECIFIED SNOMED Code(s): 131955988 Plan: 1patient presented to hospital with increasing shortness of breath and cough which is likely multifactorial more likely related to fluid overload she also tested positive for COVID-19 however the patient is currently not running any fever and is on 5 L nasal cannula oxygen which is baseline for her and no need for any worsening oxygen requirement 2-patient breathing slightly comfortably he is afebrile white count normal, continue with dexamethasone zinc ascorbic acid Eliquis and monitor closely off antibiotic Dictation was produced using [employer] dictation software. please excuse any grammatical, word or spelling errors. Time with Patient: Less than 30
--- NOTE | 2025-02-17 12:08 | P.PN ---
Subjective HISTORY OF PRESENT ILLNESS: The patient is a 80-year-old female patient who is known to our service from before with extensive cardiac history consistent of valvular heart disease status post aortic valve replacement and mitral valve replacement and tricuspid valve repair in May 2024 performed at [facility] as well as history of heart failure as well as cardiomyopathy and also diabetes and hypertension and dyslipidemia and chronic kidney disease and chronic anemia secondary to iron deficiency anemia and permanent pacemaker and permanent atrial fibrillation. The patient was seen by our service earlier this month after she was admitted with heart failure and she was discharged on oral diuretics and according to her she has been compliant with it. She presented back to the hospital not feeling well experiencing progressive exertional dyspnea associated with cough and congestions and fever as well and also bilateral lower extremities edema. No pain in the chest or dizziness or lightheadedness or any feeling of heart racing or fluttering or presyncope or syncope which she stated that she has been compliant with the current medical regimen including the current dose of oral diuretics. She stated that also she has been compliant with low-sodium diet. She underwent further evaluation including COVID test came in to be abnormal and also she underwent a chest x-ray showed finding consistent with heart failure as well as NT proBNP came to be around 4000. Hemoglobin came to be around 8 which is her baseline. Kidney function is at baseline as well. The EKG showed underlying atrial fibrillation with ventricular paced rhythm. She underwent an echo in January 2024 showed mildly impaired LV function with overall normally functioning aortic and mitral prosthesis. When she presented to the hospital she was hypoxic requiring oxygen. The physical examination is remarkable for extensive bilateral expiratory wheezing with a distant heart sounds and bilateral lower extremities pitting edema noted as well 02/15/2025 Patient continues to have shortness of breath, still appears volume overloaded 1-2+ pitting edema bilateral extremity, crackles and wheezing and mild rhonchi audible in bilateral lung castillo Elevated JVP 02/16/2025 BP 160/65, heart rate 65 bpm, Telemetry shows underlying rhythm being atrial fibrillation with V paced rhythm Hemoglobin 8.7, BUN 30, creatinine 1.17, 02/17/2025 Patient examined this morning at the bedside. Patient continues to report shortness of breath. She has a frequent cough noted. She remains on IV diuretics. BUN 36. Creatinine 1.23. PHYSICAL EXAM: VITAL SIGNS: Reviewed. GENERAL: Well-developed in no acute distress. NECK: Supple. No JVD or thyromegaly LUNGS: Respirations even and unlabored. Lungs essentially clear to auscultation bilaterally. HEART: Regular rate and rhythm. S1 and S2 heard. EXTREMITIES: Normal range of motion. No clubbing or cyanosis. Peripheral p ulses intact. No lower extremity edema ASSESSMENT: Acute COVID-19 Acute on chronic heart failure with reduced EF, 40 to 45% Severe pulmonary hypertension Paroxysmal atrial fibrillation History of permanent pacemaker implantation, [facility], 2018 History of aortic valve replacement, mitral valve replacement, and tricuspid valve repair, May 2024 at [facility] Coronary artery disease with previous stenting Chronic anemia with previous workup for GI bleed, both EGD and colonoscopy negative for source Hypertension Hyperlipidemia Diabetes Morbid obesity: BMI 45.7 PLAN: Continue current cardiac medications including Eliquis, Lipitor, Farxiga, losartan, Zaroxolyn, and metoprolol Increase Aldactone to 25 mg daily Increase Zaroxolyn to 5 mg daily Continue IV Lasix 40 mg every 12 hours Daily weights, accurate intake and output, and monitoring of kidney function Obtain incentive spirometer and flutter valve for patient Further recommendations pending patient course Patient to follow-up postdischarge with Dr. Watson Nurse practitioner note has been reviewed by physician. Signing provider agrees with the documented findings, assessment, and plan of care documented by [employer] as a scribe. Objective - Vital Signs Vital signs: Vital Signs Temp 98.2 F 02/16/25 20:31 Pulse 67 02/17/25 08:10 Resp 18 02/17/25 08:10 BP 103/54 02/17/25 08:10 Pulse Ox 96 02/17/25 08:10 FiO2 Intake & Output 02/16/25 02/17/25 02/17/25 18:59 06:59 18:59 Intake Total 500 180 Output Total 1150 900 Balance -650 -720 Weight 117.5 kg 117 kg Intake: Oral 500 180 Output: Urine 1150 900 Other: Voiding Method External Catheter Toilet Toilet External Catheter # Voids 2 3 - Labs CBC & Chem 7: 02/16/25 07:14 02/17/25 10:36 Labs: Abnormal Lab Results - Last 24 Hours (Table) 02/16/25 02/16/25 02/17/25 Range/Units 16:18 20:03 05:57 Chloride (98-107) mmol/L Carbon Dioxide (22-30) mmol/L BUN (7-17) mg/dL Creatinine (0.52-1.04) mg/dL Glucose (74-99) mg/dL POC Glucose (mg/dL) 292 H 193 H 129 H (70-110) mg/dL 02/17/25 02/17/25 Range/Units 10:36 11:05 Chloride 84 L (98-107) mmol/L Carbon Dioxide 43 H* (22-30) mmol/L BUN 36 H (7-17) mg/dL Creatinine 1.23 H (0.52-1.04) mg/dL Glucose 141 H (74-99) mg/dL POC Glucose (mg/dL) 204 H (70-110) mg/dL
--- NOTE | 2025-02-17 14:10 | P.PN ---
Subjective Progress Note Date: 02/17/25 No acute events overnight. Pt reporting no acute changes. Hgb stable at 8.7 Objective - Vital Signs Vital signs: Vital Signs Temp 98.2 F 02/16/25 20:31 Pulse 67 02/17/25 08:10 Resp 18 02/17/25 08:10 BP 103/54 02/17/25 08:10 Pulse Ox 96 02/17/25 08:10 FiO2 Intake & Output 02/16/25 02/17/25 02/17/25 18:59 06:59 18:59 Intake Total 500 180 Output Total 1150 900 Balance -650 -720 Weight 117.5 kg 117 kg Intake: Oral 500 180 Output: Urine 1150 900 Other: Voiding Method External Catheter Toilet Toilet External Catheter # Voids 2 3 - Constitutional General appearance: Present: average body habitus, no acute distress - EENT Eyes: Present: anicteric sclerae, EOMI ENT: Present: hearing grossly normal - Respiratory Details: breathing is even and unlabored - Cardiovascular Details: skin warm and dry - Gastrointestinal General gastrointestinal: Present: soft. Absent: tenderness - Integumentary Integumentary: Absent: cyanotic - Psychiatric Psychiatric: Present: A&O x's 3 - Labs CBC & Chem 7: 02/16/25 07:14 02/17/25 10:36 Labs: Abnormal Lab Results - Last 24 Hours (Table) 02/16/25 02/16/25 02/16/25 Range/Units 11:34 16:18 20:03 POC Glucose (mg/dL) 364 H 292 H 193 H (70-110) mg/dL 02/17/25 Range/Units 05:57 POC Glucose (mg/dL) 129 H (70-110) mg/dL Assessment and Plan (1) CHF (congestive heart failure) Current Visit: Yes Status: Acute Code(s): I50.9 - HEART FAILURE, UNSPECIFIED SNOMED Code(s): 38507261 (2) Coronavirus infection Current Visit: Yes Status: Acute Code(s): B34.2 - CORONAVIRUS INFECTION, UNSPECIFIED SNOMED Code(s): 769027762 (3) Iron deficiency anemia Current Visit: Yes Status: Chronic Priority: Medium Code(s): D50.9 - IRON DEFICIENCY ANEMIA, UNSPECIFIED SNOMED Code(s): 75678437 Plan: Patient is a 80 year old female with a history of iron deficiency anemia. Admitted for CHF exacerbation and COVID-19 infection Iron deficiency anemia -History of SUZANNA, follows with Dr. Duenas -Etiology of patient's iron deficiency is felt to be secondary to chronic, small volume blood loss from gastrointestinal AVMs, exacerbated by anticoagulation and antiplatelet therapy for atrial fibrillation and cardiovascular stenting/valves, and also component of CKD -She was maintaining a hemoglobin between 8 and 9 on recent checks in the office. She was currently receiving additional doses of IV iron outpatient. During last admit, pt received IV iron. She was scheduled for 2nd dose feraheme on 02/18. Due to acute COVID infection will postpone iron transfusion till next week -Hgb stable at 8.7. Also contributing to patient's anemia is felt to be a component of chronic kidney disease. Pending adequate iron supplementation before considering the addition of WENDY. -Patient will stay on follow-up as already scheduled with Dr. Duenas -Continue to monitor CBC
--- NOTE | 2025-02-17 15:15 | P.PN ---
Subjective Progress Note Date: 02/17/25 This is a 80-year-old female with past medical history significant for valvular heart disease with previous extensive open heart procedure at [facility] done May,. She also has past medical history significant for coronary artery disease with previous PCI/stent, dual-chamber pacemaker, paroxysmal atrial fibrillation, diabetes mellitus, hypothyroidism, hypertension, hyperlipidemia, obstructive sleep apnea with home CPAP. She has had recent multiple admissions here mostly for congestive heart failure. Most recently discharged home on 02/05/2025. She presented back to the emergency room again on 02/13/2025 with complaints of increasing shortness of breath. Her daughter was sick and was tested positive for COVID and the patient tested positive yesterday and felt the need to come to the emergency room. Chest x-ray reveals evidence of congestive heart failure with pulmonary venous congestion and scattered infiltrates. Small effusions. White count globin 8.2. Platelets 176. Sodium 134. Potassium 4.2. Bicarb 40. BUN 36. Creatinine 1.20. Glucose 247. Troponin 0.043, 0.030, 0.046. proBNP 4390. Viral screen positive for COVID. She is seen in consultation in the emergency department. She is currently resting on a stretcher currently wearing her home CPAP device with 5 L of oxygen bled in. Maintaining O2 saturations in the mid 90s. Afebrile. Hemodynamically stable. Breathing a bit easier today compared to yesterday. On today's evaluation of 02/15/2025, the patient is being seen for a follow-up. The patient was hospitalized for an acute decompensated heart failure and an acute COVID-19 infection. This morning, the patient is still in the emergency. She is calm and comfortable. She is utilizing on BiPAP machine from home which is set at a pressure of 18 over 14 cm of water. She is able to tolerate the BiPAP therapy without any major difficulties. She continues to have a congested cough. Noted her COVID-19 infection exacerbated his CHF. The patient had increased pulm vessel congestion and cardiomegaly and the patient is currently being subjected to diuretics. The patient is currently on Lasix 40 mg IV every 12 hours and Zaroxolyn 2.5 mg p.o. daily and Aldactone 12.5 mg p.o. daily. She remains on metoprolol 25 mg at bedtime and 50 mg in the morning. She remains on multiple anticoagulation with Eliquis. The patient was also started on Decadron regarding her COVID-19 infection. She has an extensive cardiac history including coronary disease, previous PCI and stenting, dual-chamber pacemaker insertion and paroxysmal A-fib. She is also known to have diabetes mellitus type 2, hypertension, hypothyroidism, hyperlipidemia in addition to obstructive sleep apnea maintained on BiPAP therapy on outpatient basis. Labs were reviewed. The white cell count of 3.9, hemoglobin 9 and a platelet count of 197. BUN is 33 with a creatinine of 1.24 and a sodium levels at 135 and a potassium level is at 3.5. Her troponin was at 0.046 max. She is free of any chest pain. proBNP level was 4390. On 02/16/2025, the patient is being seen for a follow-up with the patient is feeling better compared to yesterday. She seems to be less bronchospastic and wheezy and less congested. The patient is utilizing her BiPAP from home. She remains in the negative fluid balance as the patient is being diuresed with IV Lasix 40 mg IV every 12 hours. The patient is also on Decadron 6 mg IV every 24 hours regarding her acute COVID-19 infection. She remains on Aldactone 12.5 mg p.o. daily. Rest of the medications are unchanged. She remains on anti coagulation with Eliquis 5 mg p.o. twice a day. The white cell count is at 4 with a hemoglobin of 8.7 and a platelet count of 184. BUN 30 with a creatinine of 1.1 and a sodium levels at 134. No other significant events overnight. Blood sugar is slightly elevated. The patient was given Lantus insulin 20 units along with NovoLog 40 units 3 times daily with meals. She will be placed also on sliding scale coverage. She is on Farxiga 10 mg p.o. daily. On today's evaluation of 02/17/2025, the patient continues to have some cough and congestion and limited bronchospasm wheezing. Noted the patient has an acute CHF exacerbation in addition to an acute COVID-19 infection. She remains on Decadron 6 mg IV every 24 hours. She remains on Lasix 40 mg IV every 12 hours. Remains on Zaroxolyn. Remains on Aldactone. Fluid balance is still negative and the patient is -650 cc over the past 24 hours. BUN 36 with a creatinine of 1.2 and the patient's creatinine remains essentially stable and sodium levels at 137 with a potassium level of 4 and a serum bicarb of 43. No fever. No chills. No nausea or emesis and the patient remains on 5 L of oxygen by nasal cannula with pulse ox of 99%. He is also utilizing her BiPAP which is at the bedside at a pressure of 18/14 cm of water. Rest of the medications are essentially unchanged. The patient is on Lantus insulin. The patient is on insulin/scale coverage. Remains on anticoagulation with Eliquis. Remains on Farxiga. Remains on losartan. Objective - Vital Signs Vital signs: Vital Signs Temp 98.2 F 02/16/25 20:31 Pulse 67 02/17/25 08:10 Resp 18 02/17/25 08:10 BP 103/54 02/17/25 08:10 Pulse Ox 96 02/17/25 08:10 FiO2 Intake & Output 02/16/25 02/17/25 02/17/25 18:59 06:59 18:59 Intake Total 500 180 Output Total 1150 900 Balance -650 -720 Weight 117.5 kg 117 kg Intake: Oral 500 180 Output: Urine 1150 900 Other: Voiding Method External Catheter Toilet Toilet External Catheter # Voids 2 3 - Exam GENERAL EXAM: Alert, 80-year-old obese female, on her home BiPAP machine, fairly comfortable in no apparent distress. Currently she is on 5 L of oxygen nasal cannula HEAD: Normocephalic. EYES: Normal reaction of pupils, equal size. NOSE: Clear with pink turbinates. THROAT: No erythema or exudates. NECK: No masses, no JVD. CHEST: No chest wall deformity. LUNGS: Equal air entry with crackles in the bilateral bases. CVS: S1 and S2 normal with an audible murmur, paced rhythm. ABDOMEN: No hepatosplenomegaly, normal bowel sounds, no guarding or rigidity. SPINE: No scoliosis or deformity SKIN: No rashes CENTRAL NERVOUS SYSTEM: No focal deficits, tone is normal in all 4 extremities. EXTREMITIES: There is 1-2+ peripheral edema. No clubbing, no cyanosis. Peripheral pulses are intact. - Labs CBC & Chem 7: 02/16/25 07:14 02/17/25 10:36 Labs: Abnormal Lab Results - Last 24 Hours (Table) 04/01/25 04/01/25 04/01/25 Range/Units 11:34 16:18 20:03 POC Glucose (mg/dL) 364 H 292 H 193 H (70-110) mg/dL 02/17/25 Range/Units 05:57 POC Glucose (mg/dL) 129 H (70-110) mg/dL Assessment and Plan Plan: Acute on chronic hypoxic respiratory failure secondary to acute exacerbation of systolic congestive heart failure and valvular heart disease, echocardiogram from 01/30/2025 showed an EF of 40 to 45% along with severe tricuspid regurgitation. Mildly reduced global LV function. The mitral valve was not adequately visualized. 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 The patient remains on 5 L of oxygen by nasal cannula. Clinically improving. Acute COVID infection. She has had previous COVID infection and she has received original vaccination x2 Chronic hypoxic respiratory failure, maintained on 5 L of oxygen on outpatient basis Severe pulmonary hypertension, group 2 History of obstructive sleep apnea with BIPAP 18/14 cm H20, the patient has a AirFit N20 nasal mask which she is utilizing for now Obesity, with a BMI of 46.13 kg/m History of valvular heart disease with previous aortic valve replacement, mitral valve replacement, and tricuspid valve repair, performed at the [facility] May, Dual-chamber pacemaker insertion, paced rhythm Paroxysmal A-fib maintained on anticoagulation with Eliquis Coronary artery disease with previous coronary stenting Diabetes mellitus, insulin-dependent Hypothyroidism Hyperlipidemia Hypertension Chronic anemia, hemoglobin stable at 8.2 g/dL Chronic metabolic alkalosis Plan: Continue same treatment. Stable and ongoing slow improvement in this patient. Patient currently on 5 L of O2 nasal cannula Continue home BiPAP machine at a pressure of 18/14 cm of water. While off the BiPAP, the patient will continue oxygen 5 L. Continue continue Zaroxolyn 2.5 mg p.o. daily Lasix 40 mg every 12 hours Continue Aldactone Continue Decadron 6 mg IV push every 24 hours Lantus insulin for blood sugar control in addition to NovoLog with meals and sliding scale coverage Monitor intake and output Monitor renal function electrolytes Anticoagulated with Eliquis Continue her home medications We will continue to follow Time with Patient: Greater than 30
[2025-02-17 16:36] LABS: Glucose,Whole Blood 321 mg/dL (70-110)
[2025-02-17 20:36] LABS: Glucose,Whole Blood 342 mg/dL (70-110)
--- NOTE | 2025-02-18 00:55 | PN ---
PROGRESS NOTE DATE OF SERVICE: 02/17/2025 SUBJECTIVE: This is a 80-year-old woman, who was admitted with shortness of breath which is multifactorial including CHF, also had possibly COVID-19 pneumonia also. The patient is being closely monitored. The patient has significant cough at this time. The patient has paroxysmal atrial fibrillation. PAST MEDICAL HISTORY: Reviewed. REVIEW OF SYSTEMS: A 14-point review of systems is negative except as mentioned earlier. CURRENT MEDICATIONS: Reviewed. PHYSICAL EXAMINATION: VITAL SIGNS: Pulse is 62, blood pressure 115/53, respirations 18. HEENT: Conjunctivae normal. CARDIOVASCULAR: S1, S2. RESPIRATIONS: Bilateral scattered rhonchi and crackles. ABDOMEN: Soft. NERVOUS SYSTEM: Nonfocal. LABORATORY DATA: Creatinine 1.3, stable. Hemoglobin 8.7. Troponin noted. ASSESSMENT: 1. Shortness of breath, possibly multifactorial including congestive heart failure acute exacerbation as well as chronic obstructive pulmonary disease acute exacerbation. 2. Acute COVID-19 pneumonia bilateral with acute COVID-19 infection. 3. Paroxysmal atrial fibrillation. 4. Diabetes mellitus, type 2. 5. Morbid obesity. 6. Multiple complex medical issues. RECOMMENDATIONS: Recommend to continue current medications, continue symptomatic treatment. Continue with diuretics. Continue with monitoring blood sugars. The patient is on Lasix 40 IV b.i.d. We will monitor creatinine closely and the blood sugar is better controlled today. Further recommendations to follow. MMODL / IJN: [id number] /
[2025-02-18 06:01] LABS: Glucose,Whole Blood 138 mg/dL (70-110)
[2025-02-18 07:55] LABS: African American GFR (CKD) 41 (>60 ml/min/1.73 sqM); Blood Urea Nitrogen 39 mg/dL (7-17); Calcium 8.8 mg/dL (8.4-10.2); Chloride 88 mmol/L (98-107); Glucose 120 mg/dL (74-99); Magnesium 1.8 mg/dL (1.6-2.3); Non-African American GFR(CKD) 36 (>60 ml/min/1.73 sqM); Potassium 3.9 mmol/L (3.5-5.1); Sodium 137 mmol/L (137-145)
[2025-02-18 08:01] LABS: Anion Gap 8 mmol/L
[2025-02-18] MEDS: metOLazone 5 MG TAB PO SCH (08:13)
[2025-02-18] MEDS: SPIRONOLACTONE 25 MG TAB PO SCH (08:13)
[2025-02-18 08:46] LABS: Carbon Dioxide 41 mmol/L (22-30)
[2025-02-18 11:21] LABS: Glucose,Whole Blood 254 mg/dL (70-110)
--- NOTE | 2025-02-18 11:32 | P.PN ---
Subjective HISTORY OF PRESENT ILLNESS: The patient is a 80-year-old female patient who is known to our service from before with extensive cardiac history consistent of valvular heart disease status post aortic valve replacement and mitral valve replacement and tricuspid valve repair in May 2024 performed at [facility] as well as history of heart failure as well as cardiomyopathy and also diabetes and hypertension and dyslipidemia and chronic kidney disease and chronic anemia secondary to iron deficiency anemia and permanent pacemaker and permanent atrial fibrillation. The patient was seen by our service earlier this month after she was admitted with heart failure and she was discharged on oral diuretics and according to her she has been compliant with it. She presented back to the hospital not feeling well experiencing progressive exertional dyspnea associated with cough and congestions and fever as well and also bilateral lower extremities edema. No pain in the chest or dizziness or lightheadedness or any feeling of heart racing or fluttering or presyncope or syncope which she stated that she has been compliant with the current medical regimen including the current dose of oral diuretics. She stated that also she has been compliant with low-sodium diet. She underwent further evaluation including COVID test came in to be abnormal and also she underwent a chest x-ray showed finding consistent with heart failure as well as NT proBNP came to be around 4000. Hemoglobin came to be around 8 which is her baseline. Kidney function is at baseline as well. The EKG showed underlying atrial fibrillation with ventricular paced rhythm. She underwent an echo in January 2024 showed mildly impaired LV function with overall normally functioning aortic and mitral prosthesis. When she presented to the hospital she was hypoxic requiring oxygen. The physical examination is remarkable for extensive bilateral expiratory wheezing with a distant heart sounds and bilateral lower extremities pitting edema noted as well 02/15/2025 Patient continues to have shortness of breath, still appears volume overloaded 1-2+ pitting edema bilateral extremity, crackles and wheezing and mild rhonchi audible in bilateral lung castillo Elevated JVP 02/16/2025 BP 160/65, heart rate 65 bpm, Telemetry shows underlying rhythm being atrial fibrillation with V paced rhythm Hemoglobin 8.7, BUN 30, creatinine 1.17, 02/17/2025 Patient examined this morning at the bedside. Patient continues to report shortness of breath. She has a frequent cough noted. She remains on IV diuretics. BUN 36. Creatinine 1.23. 02/18/2025 Patient examined this morning at the bedside. Patient's daughter is present. Patient currently denies chest pain or pressure. She continues to report shortness of breath with a frequent cough. Creatinine today 1.41. CO2 41. Pa virgil's daughter states she was up to the chair yesterday for most of the day. PHYSICAL EXAM: VITAL SIGNS: Reviewed. GENERAL: Well-developed in no acute distress. NECK: Supple. No JVD or thyromegaly LUNGS: Respirations even and unlabored. Lungs essentially clear to auscultation bilaterally. HEART: Regular rate and rhythm. S1 and S2 heard. EXTREMITIES: Normal range of motion. No clubbing or cyanosis. Peripheral pulses intact. No lower extremity edema ASSESSMENT: Acute COVID-19 Acute on chronic heart failure with reduced EF, 40 to 45% Severe pulmonary hypertension Paroxysmal atrial fibrillation History of permanent pacemaker implantation, [facility], 2018 History of aortic valve replacement, mitral valve replacement, and tricuspid valve repair, May 2024 at [facility] Coronary artery disease with previous stenting Chronic anemia with previous workup for GI bleed, both EGD and colonoscopy negative for source Hypertension Hyperlipidemia Diabetes Morbid obesity: BMI 45.7 PLAN: Continue current cardiac medications including Eliquis, Lipitor, Farxiga, losartan, Zaroxolyn, and metoprolol Discontinue Aldactone Give Diamox 250 mg x 2 doses Continue IV Lasix 40 mg every 12 hours Daily weights, accurate intake and output, and monitoring of kidney function Continue to encourage use of incentive spirometer and flutter valve Further recommendations pending patient course Patient to follow-up postdischarge with Dr. Watson Nurse practitioner note has been reviewed by physician. Signing provider agrees with the documented findings, assessment, and plan of care documented by ORDER MANAGER as a scribe. Objective - Vital Signs Vital signs: Vital Signs Temp 97.9 F 02/18/25 08:00 Pulse 62 02/18/25 08:00 Resp 16 02/18/25 08:00 BP 123/57 02/18/25 08:00 Pulse Ox 97 02/18/25 08:00 FiO2 Intake & Output 02/17/25 02/18/25 02/18/25 18:59 06:59 18:59 Intake Total 1380 236 Output Total 900 1100 500 Balance 480 -1100 -264 Intake: Oral 1380 236 Output: Urine 900 1100 500 Other: Voiding Method Toilet Toilet External Catheter External Catheter - Labs CBC & Chem 7: 02/16/25 07:14 02/18/25 06:29 Labs: Abnormal Lab Results - Last 24 Hours (Table) 02/17/25 02/17/25 02/17/25 Range/Units 10:36 16:35 20:34 Chloride 84 L (98-107) mmol/L Carbon Dioxide 43 H* (22-30) mmol/L BUN 36 H (7-17) mg/dL Creatinine 1.23 H (0.52-1.04) mg/dL Glucose 141 H (74-99) mg/dL POC Glucose (mg/dL) 321 H 342 H (70-110) mg/dL 02/18/25 02/18/25 02/18/25 Range/Units 05:59 06:29 11:19 Chloride 88 L (98-107) mmol/L Carbon Dioxide 41 H* (22-30) mmol/L BUN 39 H (7-17) mg/dL Creatinine 1.41 H (0.52-1.04) mg/dL Glucose 120 H (74-99) mg/dL POC Glucose (mg/dL) 138 H 254 H (70-110) mg/dL
--- NOTE | 2025-02-18 11:52 | XR ---
EXAMINATION TYPE: XR chest 1V portable DATE OF EXAM: 02/18/2025 11:47 AM COMPARISON: Chest radiographs from 02/16/2025 CLINICAL INDICATION: Female, 80 years old with history of pneumonia; TECHNIQUE: XR chest 1V portable Frontal view of the chest. FINDINGS: Lungs/Pleura: There is no evidence of pleural effusion, focal consolidation, or pneumothorax. Pulmonary vascularity: Pulmonary vascular congestion. Heart/mediastinum: Cardiomediastinal silhouette is enlarged. Atherosclerotic calcifications are seen in the aorta. Two lead cardiac conduction device overlying the left hemithorax with lead tips projec ting over the right ventricle and right atrium. Musculoskeletal: No acute osseous pathology. Midline sternotomy wires are noted. IMPRESSION: Cardiomegaly, pulmonary vascular congestion and bilateral pleural effusions. Correlate with BNP for c ongestive heart failure. [facility], , 02/18/2025 11:50 AM
[2025-02-18] MEDS: acetaZOLAMIDE 250 MG TAB PO SCH (12:09)
[2025-02-18] MEDS ORDERED: DEXTROSE 50% SYRINGE 50 ML IVP PRN ×2 (13:54)
--- NOTE | 2025-02-18 14:32 | P.PN ---
Subjective Progress Note Date: 02/18/25 Principal diagnosis: Reason for follow-up is COVID-19 Patient is a 80-year-old female with a past medical history significant for atrial Fibrillation, Diabetes Mellitus, Hearing Disorder / Deafness, Hyperlipidemia, Osteoarthritis (OA), Pneumonia, Sleep Apnea/CPAP/BIPAP , Thyroid Disorder, has been exposed to her daughter who tested positive for COVID-19 about a week ago presented hospital with shortness of breath and cough has been diagnosed with COVID-19 and possible component of CHF exacerbation. On today's evaluation that is 02/18/2025,the patient remains to be afebrile, patient is on 5 L nasal cannula supplemental oxygen and mention breathing slightly comfortably no chest pain or any worsening cough no abdominal pain or diarrhea. Patient did have a creatinine of 1.41 no CBC was done today chest x-ray from this morning cardiomegaly pulmonary vascular congestion bilateral effusion Objective - Vital Signs Vital signs: Vital Signs Temp 98.7 F 02/18/25 12:00 Pulse 62 02/18/25 12:00 Resp 16 02/18/25 12:00 BP 109/63 02/18/25 12:00 Pulse Ox 100 02/18/25 12:00 FiO2 Intake & Output 02/17/25 02/18/25 02/18/25 18:59 06:59 18:59 Intake Total 1380 236 Output Total 900 1100 500 Balance 480 -1100 -264 Intake: Oral 1380 236 Output: Urine 900 1100 500 Other: Voiding Method Toilet Toilet External Catheter External Catheter - Exam GENERAL DESCRIPTION: An elderly female up in bed in no distress RESPIRATORY SYSTEM: Unlabored breathing crackles Bilaterally HEART: S1 S2 regular rate and rhythm , ABDOMEN: Soft , no tenderness EXTREMITIES: Trace edema feet - Labs CBC & Chem 7: 02/16/25 07:14 02/18/25 06:29 Labs: Abnormal Lab Results - Last 24 Hours (Table) 02/17/25 02/17/25 02/18/25 Range/Units 16:35 20:34 05:59 Chloride (98-107) mmol/L Carbon Dioxide (22-30) mmol/L BUN (7-17) mg/dL Creatinine (0.52-1.04) mg/dL Glucose (74-99) mg/dL POC Glucose (mg/dL) 321 H 342 H 138 H (70-110) mg/dL 02/18/25 02/18/25 Range/Units 06:29 11:19 Chloride 88 L (98-107) mmol/L Carbon Dioxide 41 H* (22-30) mmol/L BUN 39 H (7-17) mg/dL Creatinine 1.41 H (0.52-1.04) mg/dL Glucose 120 H (74-99) mg/dL POC Glucose (mg/dL) 254 H (70-110) mg/dL Assessment and Plan (1) Coronavirus infection Current Visit: Yes Status: Acute Code(s): B34.2 - CORONAVIRUS INFECTION, UNSPECIFIED SNOMED Code(s): 045569919 Plan: 1patient presented to hospital with increasing shortness of breath and cough which is likely multifactorial more likely related to fluid overload she also tested positive for COVID-19 however the patient is currently not running any fever and is on 5 L nasal cannula oxygen which is baseline for her and no need for any worsening oxygen requirement 2-patient remains to be afebrile, white count normal chest x-ray is mostly suggestive of CHF, to continue with dexamethasone zinc ascorbic acid Eliquis and aggressive diuretics Dictation was produced using [employer] dictation software. please excuse any grammatical, word or spelling errors. Time with Patient: Less than 30
[2025-02-18] MEDS: FUROSEMIDE 10 MG/ML 2 ML VIAL IV SCH (14:40)
[2025-02-18 16:18] LABS: Glucose,Whole Blood 279 mg/dL (70-110)
[2025-02-18] MEDS: INSULIN LISPRO (HumaLOG) 100 UNIT/ML 10 mL VL SQ SCH (17:35)
[2025-02-18 19:48] LABS: Glucose,Whole Blood 276 mg/dL (70-110)
[2025-02-18] MEDS: INSULIN GLARGINE (LANTUS) 100 UNIT/ML SYR SQ SCH (20:21)
--- NOTE | 2025-02-18 21:22 | PN ---
PROGRESS NOTE DATE OF SERVICE: 02/18/2025 SUBJECTIVE: This is a 80-year-old woman, who is admitted with shortness of breath, multifactorial including CHF and COPD, who also had acute COVID-19 infection also. The patient has copious sputum at this time. The most recent chest x-ray which I reviewed personally showed some improvement in the chest x-ray. PAST MEDICAL HISTORY: Reviewed. REVIEW OF SYSTEMS: Fourteen-point review of systems negative except as mentioned earlier. CURRENT MEDICATIONS: Reviewed. PHYSICAL EXAMINATION: VITAL SIGNS: Pulse is 62, blood pressure 119/63, respirations 16. CHEST: A few scattered rhonchi and crackles. ABDOMEN: Soft. NERVOUS SYSTEM: Nonfocal. LABORATORY DATA: CO2 41, creatinine is 1.41, glucose 254. ASSESSMENT: 1. Shortness of breath, possibly multifactorial including congestive heart failure with acute exacerbation as well as chronic obstructive pulmonary disease with acute exacerbation. 2. Acute COVID-19 pneumonia bilateral with acute COVID-19 infection. 3. Paroxysmal atrial fibrillation. 4. Diabetes mellitus type 2. 5. Morbid obesity. 6. Multiple complex medical issues. RECOMMENDATIONS: Recommended to continue with current medications, continue with symptomatic treatment. The patient's CO2 is 41 at this time. The patient has renal failure with creatinine at 1.41. We will cut down the dose of the Lasix now and continue to monitor, limit the fluid intake to 1200 cc per 24 hours. Continue with the steroids. Monitor blood sugars closely. Guarded prognosis. Further recommendations to follow. MMODL / IJN: [id number] /
--- NOTE | 2025-02-18 21:53 | P.PN ---
Subjective Progress Note Date: 02/18/25 This is a 80-year-old female with past medical history significant for valvular heart disease with previous extensive open heart procedure at [facility] done May,. She also has past medical history significant for coronary artery disease with previous PCI/stent, dual-chamber pacemaker, paroxysmal atrial fibrillation, diabetes mellitus, hypothyroidism, hypertension, hyperlipidemia, obstructive sleep apnea with home CPAP. She has had recent multiple admissions here mostly for congestive heart failure. Most recently discharged home on 02/05/2025. She presented back to the emergency room again on 02/13/2025 with complaints of increasing shortness of breath. Her daughter was sick and was tested positive for COVID and the patient tested positive yesterday and felt the need to come to the emergency room. Chest x-ray reveals evidence of congestive heart failure with pulmonary venous congestion and scattered infiltrates. Small effusions. White count globin 8.2. Platelets 176. Sodium 134. Potassium 4.2. Bicarb 40. BUN 36. Creatinine 1.20. Glucose 247. Troponin 0.043, 0.030, 0.046. proBNP 4390. Viral screen positive for COVID. She is seen in consultation in the emergency department. She is currently resting on a stretcher currently wearing her home CPAP device with 5 L of oxygen bled in. Maintaining O2 saturations in the mid 90s. Afebrile. Hemodynamically stable. Breathing a bit easier today compared to yesterday. On today's evaluation of 02/15/2025, the patient is being seen for a follow-up. The patient was hospitalized for an acute decompensated heart failure and an acute COVID-19 infection. This morning, the patient is still in the emergency. She is calm and comfortable. She is utilizing on BiPAP machine from home which is set at a pressure of 18 over 14 cm of water. She is able to tolerate the BiPAP therapy without any major difficulties. She continues to have a congested cough. Noted her COVID-19 infection exacerbated his CHF. The patient had increased pulm vessel congestion and cardiomegaly and the patient is currently being subjected to diuretics. The patient is currently on Lasix 40 mg IV every 12 hours and Zaroxolyn 2.5 mg p.o. daily and Aldactone 12.5 mg p.o. daily. She remains on metoprolol 25 mg at bedtime and 50 mg in the morning. She remains on multiple anticoagulation with Eliquis. The patient was also started on Decadron regarding her COVID-19 infection. She has an extensive cardiac history including coronary disease, previous PCI and stenting, dual-chamber pacemaker insertion and paroxysmal A-fib. She is also known to have diabetes mellitus type 2, hypertension, hypothyroidism, hyperlipidemia in addition to obstructive sleep apnea maintained on BiPAP therapy on outpatient basis. Labs were reviewed. The white cell count of 3.9, hemoglobin 9 and a platelet count of 197. BUN is 33 with a creatinine of 1.24 and a sodium levels at 135 and a potassium level is at 3.5. Her troponin was at 0.046 max. She is free of any chest pain. proBNP level was 4390. On 02/16/2025, the patient is being seen for a follow-up with the patient is feeling better compared to yesterday. She seems to be less bronchospastic and wheezy and less congested. The patient is utilizing her BiPAP from home. She remains in the negative fluid balance as the patient is being diuresed with IV Lasix 40 mg IV every 12 hours. The patient is also on Decadron 6 mg IV every 24 hours regarding her acute COVID-19 infection. She remains on Aldactone 12.5 mg p.o. daily. Rest of the medications are unchanged. She remains on anti coagulation with Eliquis 5 mg p.o. twice a day. The white cell count is at 4 with a hemoglobin of 8.7 and a platelet count of 184. BUN 30 with a creatinine of 1.1 and a sodium levels at 134. No other significant events overnight. Blood sugar is slightly elevated. The patient was given Lantus insulin 20 units along with NovoLog 40 units 3 times daily with meals. She will be placed also on sliding scale coverage. She is on Farxiga 10 mg p.o. daily. On today's evaluation of 02/17/2025, the patient continues to have some cough and congestion and limited bronchospasm wheezing. Noted the patient has an acute CHF exacerbation in addition to an acute COVID-19 infection. She remains on Decadron 6 mg IV every 24 hours. She remains on Lasix 40 mg IV every 12 hours. Remains on Zaroxolyn. Remains on Aldactone. Fluid balance is still negative and the patient is -650 cc over the past 24 hours. BUN 36 with a creatinine of 1.2 and the patient's creatinine remains essentially stable and sodium levels at 137 with a potassium level of 4 and a serum bicarb of 43. No fever. No chills. No nausea or emesis and the patient remains on 5 L of oxygen by nasal cannula with pulse ox of 99%. He is also utilizing her BiPAP which is at the bedside at a pressure of 18/14 cm of water. Rest of the medications are essentially unchanged. The patient is on Lantus insulin. The patient is on insulin/scale coverage. Remains on anticoagulation with Eliquis. Remains on Farxiga. Remains on losartan. 02/18/2025, patient is feeling better. Continues to have some congested cough. Fluid balance is -620 cc and the patient remains on Decadron for COVID-19 infection. The patient remains on Lasix 20 mg IV every 12 hours. She is also on Zaroxolyn 5 mg p.o. daily basis. Remains on anticoagulation with Eliquis. No chest pain. Trace lower extremity edema. Blood work shows a white cell count of 4 with a hemoglobin 8.7. BUN 39 with a creatinine of 1.4 and a sodium levels at 137 and a potassium level is at 3.9. Awake and alert. Rest of the medications remain unchanged. Oxygenation remained stable and the patient is currently on 5 L of O2 nasal cannula. She is also utilizing BiPAP on and off during the day. Objective - Vital Signs Vital signs: Vital Signs Temp 97.9 F 02/18/25 08:00 Pulse 62 02/18/25 08:00 Resp 16 02/18/25 08:00 BP 123/57 02/18/25 08:00 Pulse Ox 97 02/18/25 08:00 FiO2 Intake & Output 02/17/25 02/18/25 02/18/25 18:59 06:59 18:59 Intake Total 1380 236 Output Total 900 1100 500 Balance 480 -1100 -264 Intake: Oral 1380 236 Output: Urine 900 1100 500 Other: Voiding Method Toilet Toilet External Catheter External Catheter - Exam GENERAL EXAM: Alert, 80-year-old obese female, on her home BiPAP machine, fairly comfortable in no apparent distress. Currently she is on 5 L of oxygen nasal cannula HEAD: Normocephalic. EYES: Normal reaction of pupils, equal size. NOSE: Clear with pink turbinates. THROAT: No erythema or exudates. NECK: No masses, no JVD. CHEST: No chest wall deformity. LUNGS: Equal air entry with crackles in the bilateral bases. CVS: S1 and S2 normal with an audible murmur, paced rhythm. ABDOMEN: No hepatosplenomegaly, normal bowel sounds, no guarding or rigidity. SPINE: No scoliosis or deformity SKIN: No rashes CENTRAL NERVOUS SYSTEM: No focal deficits, tone is normal in all 4 extremities. EXTREMITIES: There is 1-2+ peripheral edema. No clubbing, no cyanosis. Peripheral pulses are intact. - Labs CBC & Chem 7: 02/16/25 07:14 02/18/25 06:29 Labs: Abnormal Lab Results - Last 24 Hours (Table) 02/17/25 02/17/25 02/17/25 Range/Units 10:36 11:05 16:35 Chloride 84 L (98-107) mmol/L Carbon Dioxide 43 H* (22-30) mmol/L BUN 36 H (7-17) mg/dL Creatinine 1.23 H (0.52-1.04) mg/dL Glucose 141 H (74-99) mg/dL POC Glucose (mg/dL) 204 H 321 H (70-110) mg/dL 02/17/25 02/18/25 02/18/25 Range/Units 20:34 05:59 06:29 Chloride 88 L (98-107) mmol/L Carbon Dioxide 41 H* (22-30) mmol/L BUN 39 H (7-17) mg/dL Creatinine 1.41 H (0.52-1.04) mg/dL Glucose 120 H (74-99) mg/dL POC Glucose (mg/dL) 342 H 138 H (70-110) mg/dL Assessment and Plan Plan: Acute on chronic hypoxic respiratory failure secondary to acute exacerbation of systolic congestive heart failure and valvular heart disease, echocardiogram from 01/30/2025 showed an EF of 40 to 45% along with severe tricuspid regurgitation. Mildly reduced global LV function. The mitral valve was not adequately visualized. 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 The patient remains on 5 L of oxygen by nasal cannula. Clinically improving. Acute COVID infection. She has had previous COVID infection and she has received original vaccination x2 Chronic hypoxic respiratory failure, maintained on 5 L of oxygen on outpatient basis Severe pulmonary hypertension, group 2 History of obstructive sleep apnea with BIPAP 18/14 cm H20, the patient has a AirFit N20 nasal mask which she is utilizing for now Obesity, with a BMI of 46.13 kg/m History of valvular heart disease with previous aortic valve replacement, mitral valve replacement, and tricuspid valve repair, performed at the [facility] May, Dual-chamber pacemaker insertion, paced rhythm Paroxysmal A-fib maintained on anticoagulation with Eliquis Coronary artery disease with previous coronary stenting Diabetes mellitus, insulin-dependent Hypothyroidism Hyperlipidemia Hypertension Chronic anemia, hemoglobin stable at 8.2 g/dL Chronic metabolic alkalosis Plan: Continue same treatment. Less short of breath compared to yesterday Less bronchospastic and wheezing continues to have some crackles in lung base bilaterally Patient currently on 5 L of O2 nasal cannula Continue home BiPAP machine at a pressure of 18/14 cm of water. While off the BiPAP, the patient will continue oxygen 5 L. Continue continue Zaroxolyn 2.5 mg p.o. daily Lasix 40 mg every 12 hours Zaroxolyn 5 mg p.o. daily Continue Decadron 6 mg IV push every 24 hours Lantus insulin for blood sugar control in addition to NovoLog with meals and sliding scale coverage, currently on Lantus 30 units twice daily Monitor intake and output Monitor renal function electrolytes Anticoagulated with Eliquis Continue her home medications We will continue to follow Time with Patient: Greater than 30
[2025-02-19 06:03] LABS: Glucose,Whole Blood 203 mg/dL (70-110)
--- NOTE | 2025-02-19 06:58 | XR ---
EXAMINATION TYPE: XR chest 1V portable DATE OF EXAM: 02/19/2025 CLINICAL INDICATION: Female, 80 years old with history of shortness of breath, progress study. TECHNIQUE: Single AP portable upright view of the chest is obtained. COMPARISON: Chest x-ray from one day earlier and older studies. FINDINGS: Overlying sternal wires along with metallic aortic valve are redemonstrated. Persistent cardiomegaly with dual lead pacemaker. Persistent right basilar opacity. Right lung remain s clear. Osseous structures are intact. IMPRESSION: Persisting cardiomegaly with left basilar acute infiltrate and/or atelectasis. No signifi cant change from one day earlier. [facility], , 02/19/2025 6:56 AM
[2025-02-19 07:20] LABS: African American GFR (CKD) 39 (>60 ml/min/1.73 sqM); Anion Gap 5 mmol/L; Blood Urea Nitrogen 35 mg/dL (7-17); Calcium 8.8 mg/dL (8.4-10.2); Chloride 90 mmol/L (98-107); Glucose 186 mg/dL (74-99); Non-African American GFR(CKD) 34 (>60 ml/min/1.73 sqM); Potassium 3.9 mmol/L (3.5-5.1); Sodium 135 mmol/L (137-145)
[2025-02-19 07:29] LABS: Carbon Dioxide 40 mmol/L (22-30)
[2025-02-19 07:54] LABS: Anisocytosis Slight; Basophils % (A) 1 %; Eosinophils # (A) 0.1 k/uL (0-0.7); Eosinophils % (A) 2 %; HCT 28.6 % (34.0-46.0); HGB 8.4 gm/dL (11.4-16.0); Hypochromasia Marked; Lymphocytes # (A) 0.6 k/uL (1.0-4.8); Lymphocytes % (A) 12 %; MCH 29.6 pg (25.0-35.0); MCHC 29.2 g/dL (31.0-37.0); MCV 101.3 fL (80.0-100.0); Macrocytosis Slight; Mean Platelet Volume 8.1; Monocytes # (A) 0.3 k/uL (0-1.0); Monocytes % (A) 7 %; Neutrophils # (A) 3.5 k/uL (1.3-7.7); Neutrophils % (A) 76 %; Platelet Count 180 k/uL (150-450); RBC 2.83 m/uL (3.80-5.40); RDW 16.6 % (11.5-15.5); WBC 4.6 k/uL (3.8-10.6)
[2025-02-19 11:26] LABS: Glucose,Whole Blood 329 mg/dL (70-110)
--- NOTE | 2025-02-19 11:40 | US ---
EXAMINATION TYPE: US chest DATE OF EXAM: 02/19/2025 COMPARISON: Same day chest x-ray CLINICAL INDICATION: Female, 80 years old with history of left side ? effusion; TECHNIQUE: Grayscale imaging of the chest. Targeted ultrasound of the posterior lower FINDINGS: EXAM MEASUREMENTS: Left Pleural Effusion pocket size: 9.6 cm Left skin surface to fluid distance: 3.7 cm Fluid to lung tissue: 5.0cm Left side marked for possible thoracentesis outside the dept. Pulmonologists are able to review the images in the patient?s EMR. IMPRESSIONS: Moderate size left-sided pleural effusion on images saved correlates with same day x-ray [facility], , 02/19/2025 11:37 AM
--- NOTE | 2025-02-19 13:34 | P.PN ---
Subjective HISTORY OF PRESENT ILLNESS: The patient is a 80-year-old female patient who is known to our service from before with extensive cardiac history consistent of valvular heart disease status post aortic valve replacement and mitral valve replacement and tricuspid valve repair in May 2024 performed at [facility] as well as history of heart failure as well as cardiomyopathy and also diabetes and hypertension and dyslipidemia and chronic kidney disease and chronic anemia secondary to iron deficiency anemia and permanent pacemaker and permanent atrial fibrillation. The patient was seen by our service earlier this month after she was admitted with heart failure and she was discharged on oral diuretics and according to her she has been compliant with it. She presented back to the hospital not feeling well experiencing progressive exertional dyspnea associated with cough and congestions and fever as well and also bilateral lower extremities edema. No pain in the chest or dizziness or lightheadedness or any feeling of heart racing or fluttering or presyncope or syncope which she stated that she has been compliant with the current medical regimen including the current dose of oral diuretics. She stated that also she has been compliant with low-sodium diet. She underwent further evaluation including COVID test came in to be abnormal and also she underwent a chest x-ray showed finding consistent with heart failure as well as NT proBNP came to be around 4000. Hemoglobin came to be around 8 which is her baseline. Kidney function is at baseline as well. The EKG showed underlying atrial fibrillation with ventricular paced rhythm. She underwent an echo in January 2024 showed mildly impaired LV function with overall normally functioning aortic and mitral prosthesis. When she presented to the hospital she was hypoxic requiring oxygen. The physical examination is remarkable for extensive bilateral expiratory wheezing with a distant heart sounds and bilateral lower extremities pitting edema noted as well 02/15/2025 Patient continues to have shortness of breath, still appears volume overloaded 1-2+ pitting edema bilateral extremity, crackles and wheezing and mild rhonchi audible in bilateral lung castillo Elevated JVP 02/16/2025 BP 160/65, heart rate 65 bpm, Telemetry shows underlying rhythm being atrial fibrillation with V paced rhythm Hemoglobin 8.7, BUN 30, creatinine 1.17, 02/17/2025 Patient examined this morning at the bedside. Patient continues to report shortness of breath. She has a frequent cough noted. She remains on IV diuretics. BUN 36. Creatinine 1.23. 02/18/2025 Patient examined this morning at the bedside. Patient's daughter is present. Patient currently denies chest pain or pressure. She continues to report shortness of breath with a frequent cough. Creatinine today 1.41. CO2 41. Aron herman's daughter states she was up to the chair yesterday for most of the day. 02/19/2025 Patient examined this morning at the bedside. Patient currently denies chest pain or pressure. Patient continues to report mild shortness of breath with frequent coughing. Vital signs are stable. CO2 40. BUN 35. Creatinine 1.46. PHYSICAL EXAM: VITAL SIGNS: Reviewed. GENERAL: Well-developed in no acute distress. NECK: Supple. No JVD or thyromegaly LUNGS: Respirations even and unlabored. Lungs with bilateral rhonchi. Frequent coughing noted. HEART: Regular rate and rhythm. S1 and S2 heard. EXTREMITIES: Normal range of motion. No clubbing or cyanosis. Peripheral pulses intact. No lower extremity edema ASSESSMENT: Acute COVID-19 Acute on chronic heart failure with reduced EF, 40 to 45% Severe pulmonary hypertension Paroxysmal atrial fibrillation History of permanent pacemaker implantation, [facility], 2018 History of aortic valve replacement, mitral valve replacement, and tricuspid valve repair, May 2024 at [facility] Coronary artery disease with previous stenting Chronic anemia with previous workup for GI bleed, both EGD and colonoscopy negative for source Hypertension Hyperlipidemia Diabetes Morbid obesity: BMI 45.7 PLAN: Continue current cardiac medications including Eliquis, Lipitor, Farxiga, losartan, Zaroxolyn, and metoprolol Aldactone discontinued 02/18/2025 Increase Lasix to 40 mg every 12 hours Daily weights, accurate intake and output, and monitoring of kidney function Continue to encourage use of incentive spirometer and flutter valve Further recommendations pending patient course Patient to follow-up postdischarge with Dr. Watson Nurse practitioner note has been reviewed by physician. Signing provider agrees with the documented findings, assessment, and plan of care documented by TELEGRAPH INSTALLER as a scribe. Objective - Vital Signs Vital signs: Vital Signs Temp 97.9 F 02/18/25 20:00 Pulse 66 02/19/25 04:00 Resp 16 02/19/25 04:00 BP 117/75 02/19/25 04:00 Pulse Ox 99 02/19/25 04:00 FiO2 Intake & Output 04/03/25 04/04/25 04/04/25 18:59 06:59 18:59 Intake Total 476 200 Output Total 500 1400 Balance -24 -1200 Intake: Oral 476 200 Output: Urine 500 1400 Other: Voiding Method Toilet External Catheter - Labs CBC & Chem 7: 02/19/25 06:00 02/19/25 06:00 Labs: Abnormal Lab Results - Last 24 Hours (Table) 02/18/25 02/18/25 02/18/25 Range/Units 06:29 11:19 16:17 RBC (3.80-5.40) m/uL Hgb (11.4-16.0) gm/dL Hct (34.0-46.0) % MCV (80.0-100.0) fL MCHC (31.0-37.0) g/dL RDW (11.5-15.5) % Lymphocytes # (1.0-4.8) k/uL Sodium (137-145) mmol/L Chloride 88 L (98-107) mmol/L Carbon Dioxide 41 H* (22-30) mmol/L BUN 39 H (7-17) mg/dL Creatinine 1.41 H (0.52-1.04) mg/dL Glucose 120 H (74-99) mg/dL POC Glucose (mg/dL) 254 H 279 H (70-110) mg/dL 02/18/25 02/19/25 02/19/25 Range/Units 19:45 06:00 06:00 RBC 2.83 L (3.80-5.40) m/uL Hgb 8.4 L (11.4-16.0) gm/dL Hct 28.6 L (34.0-46.0) % MCV 101.3 H (80.0-100.0) fL MCHC 29.2 L (31.0-37.0) g/dL RDW 16.6 H (11.5-15.5) % Lymphocytes # 0.6 L (1.0-4.8) k/uL Sodium 135 L (137-145) mmol/L Chloride 90 L (98-107) mmol/L Carbon Dioxide 40 H (22-30) mmol/L BUN 35 H (7-17) mg/dL Creatinine 1.46 H (0.52-1.04) mg/dL Glucose 186 H (74-99) mg/dL POC Glucose (mg/dL) 276 H (70-110) mg/dL 02/19/25 Range/Units 06:01 RBC (3.80-5.40) m/uL Hgb (11.4-16.0) gm/dL Hct (34.0-46.0) % MCV (80.0-100.0) fL MCHC (31.0-37.0) g/dL RDW (11.5-15.5) % Lymphocytes # (1.0-4.8) k/uL Sodium (137-145) mmol/L Chloride (98-107) mmol/L Carbon Dioxide (22-30) mmol/L BUN (7-17) mg/dL Creatinine (0.52-1.04) mg/dL Glucose (74-99) mg/dL POC Glucose (mg/dL) 203 H (70-110) mg/dL
--- NOTE | 2025-02-19 15:21 | P.PN ---
Subjective Progress Note Date: 02/19/25 Principal diagnosis: Reason for follow-up is COVID-19 Patient is a 80-year-old female with a past medical history significant for atrial Fibrillation, Diabetes Mellitus, Hearing Disorder / Deafness, Hyperlipidemia, Osteoarthritis (OA), Pneumonia, Sleep Apnea/CPAP/BIPAP , Thyroid Disorder, has been exposed to her daughter who tested positive for COVID-19 about a week ago presented hospital with shortness of breath and cough has been diagnosed with COVID-19 and possible component of CHF exacerbation. On today's evaluation that is 02/19/2025, the patient continues to be afebrile, the patient is on 5 L nasal oxygen and breathing slightly comfortably, the Pt denies having any chest pain or any worsening cough, the patient denies having any abdominal pain no vomiting or any diarrhea, mentions feeling slightly better. Patient white count is 4.6, creatinine is 1.46 Objective - Vital Signs Vital signs: Vital Signs Temp 98.1 F 02/19/25 11:20 Pulse 62 02/19/25 11:20 Resp 16 02/19/25 11:20 BP 106/63 02/19/25 11:20 Pulse Ox 100 02/19/25 11:20 FiO2 Intake & Output 02/18/25 02/19/25 02/19/25 18:59 06:59 18:59 Intake Total 476 330 Output Total 500 2400 Balance - Intake: IV 10 Invasive Line 1 10 Oral 476 320 Output: Urine 500 2400 Other: Voiding Method Toilet External Catheter - Exam GENERAL DESCRIPTION: An elderly female up in bed in no distress RESPIRATORY SYSTEM: Unlabored breathing crackles Bilaterally HEART: S1 S2 regular rate and rhythm , ABDOMEN: Soft , no tenderness EXTREMITIES: Trace edema feet - Labs CBC & Chem 7: 02/19/25 06:00 02/19/25 06:00 Labs: Abnormal Lab Results - Last 24 Hours (Table) 02/18/25 02/18/25 02/19/25 Range/Units 16:17 19:45 06:00 RBC (3.80-5.40) m/uL Hgb (11.4-16.0) gm/dL Hct (34.0-46.0) % MCV (80.0-100.0) fL MCHC (31.0-37.0) g/dL RDW (11.5-15.5) % Lymphocytes # (1.0-4.8) k/uL Sodium (137-145) mmol/L Chloride (98-107) mmol/L Carbon Dioxide (22-30) mmol/L BUN (7-17) mg/dL Creatinine (0.52-1.04) mg/dL Glucose (74-99) mg/dL POC Glucose (mg/dL) 279 H 276 H (70-110) mg/dL Hemoglobin A1c 6.5 H (<=6.0) % 02/19/25 02/19/25 02/19/25 Range/Units 06:00 06:00 06:01 RBC 2.83 L (3.80-5.40) m/uL Hgb 8.4 L (11.4-16.0) gm/dL Hct 28.6 L (34.0-46.0) % MCV 101.3 H (80.0-100.0) fL MCHC 29.2 L (31.0-37.0) g/dL RDW 16.6 H (11.5-15.5) % Lymphocytes # 0.6 L (1.0-4.8) k/uL Sodium 135 L (137-145) mmol/L Chloride 90 L (98-107) mmol/L Carbon Dioxide 40 H (22-30) mmol/L BUN 35 H (7-17) mg/dL Creatinine 1.46 H (0.52-1.04) mg/dL Glucose 186 H (74-99) mg/dL POC Glucose (mg/dL) 203 H (70-110) mg/dL Hemoglobin A1c (<=6.0) % 02/19/25 Range/Units 11:24 RBC (3.80-5.40) m/uL Hgb (11.4-16.0) gm/dL Hct (34.0-46.0) % MCV (80.0-100.0) fL MCHC (31.0-37.0) g/dL RDW (11.5-15.5) % Lymphocytes # (1.0-4.8) k/uL Sodium (137-145) mmol/L Chloride (98-107) mmol/L Carbon Dioxide (22-30) mmol/L BUN (7-17) mg/dL Creatinine (0.52-1.04) mg/dL Glucose (74-99) mg/dL POC Glucose (mg/dL) 329 H (70-110) mg/dL Hemoglobin A1c (<=6.0) % Assessment and Plan (1) Coronavirus infection Current Visit: Yes Status: Acute Code(s): B34.2 - CORONAVIRUS INFECTION, UNSPECIFIED SNOMED Code(s): 506725393 Plan: 1patient presented to hospital with increasing shortness of breath and cough which is likely multifactorial more likely related to fluid overload she also tested positive for COVID-19 however the patient is currently not running any fever and is on 5 L nasal cannula oxygen which is baseline for her and no need for any worsening oxygen requirement 2-patient is afebrile the patient white count is normal, last chest x-ray is mostly suggestive of CHF, 3patient is currently being treated with dexamethasone zinc ascorbic acid Eliquis and monitor clinical course closely Dictation was produced using [employer] dictation software. please excuse any grammatical, word or spelling errors. Time with Patient: Less than 30
--- NOTE | 2025-02-19 15:50 | P.PN ---
Subjective Progress Note Date: 02/19/25 This is a 80-year-old female with past medical history significant for valvular heart disease with previous extensive open heart procedure at [facility] done May,. She also has past medical history significant for coronary artery disease with previous PCI/stent, dual-chamber pacemaker, paroxysmal atrial fibrillation, diabetes mellitus, hypothyroidism, hypertension, hyperlipidemia, obstructive sleep apnea with home CPAP. She has had recent multiple admissions here mostly for congestive heart failure. Most recently discharged home on 02/05/2025. She presented back to the emergency room again on 02/13/2025 with complaints of increasing shortness of breath. Her daughter was sick and was tested positive for COVID and the patient tested positive yesterday and felt the need to come to the emergency room. Chest x-ray reveals evidence of congestive heart failure with pulmonary venous congestion and scattered infiltrates. Small effusions. White count globin 8.2. Platelets 176. Sodium 134. Potassium 4.2. Bicarb 40. BUN 36. Creatinine 1.20. Glucose 247. Troponin 0.043, 0.030, 0.046. proBNP 4390. Viral screen positive for COVID. She is seen in consultation in the emergency department. She is currently resting on a stretcher currently wearing her home CPAP device with 5 L of oxygen bled in. Maintaining O2 saturations in the mid 90s. Afebrile. Hemodynamically stable. Breathing a bit easier today compared to yesterday. On today's evaluation of 02/15/2025, the patient is being seen for a follow-up. The patient was hospitalized for an acute decompensated heart failure and an acute COVID-19 infection. This morning, the patient is still in the emergency. She is calm and comfortable. She is utilizing on BiPAP machine from home which is set at a pressure of 18 over 14 cm of water. She is able to tolerate the BiPAP therapy without any major difficulties. She continues to have a congested cough. Noted her COVID-19 infection exacerbated his CHF. The patient had increased pulm vessel congestion and cardiomegaly and the patient is currently being subjected to diuretics. The patient is currently on Lasix 40 mg IV every 12 hours and Zaroxolyn 2.5 mg p.o. daily and Aldactone 12.5 mg p.o. daily. She remains on metoprolol 25 mg at bedtime and 50 mg in the morning. She remains on multiple anticoagulation with Eliquis. The patient was also started on Decadron regarding her COVID-19 infection. She has an extensive cardiac history including coronary disease, previous PCI and stenting, dual-chamber pacemaker insertion and paroxysmal A-fib. She is also known to have diabetes mellitus type 2, hypertension, hypothyroidism, hyperlipidemia in addition to obstructive sleep apnea maintained on BiPAP therapy on outpatient basis. Labs were reviewed. The white cell count of 3.9, hemoglobin 9 and a platelet count of 197. BUN is 33 with a creatinine of 1.24 and a sodium levels at 135 and a potassium level is at 3.5. Her troponin was at 0.046 max. She is free of any chest pain. proBNP level was 4390. On 02/16/2025, the patient is being seen for a follow-up with the patient is feeling better compared to yesterday. She seems to be less bronchospastic and wheezy and less congested. The patient is utilizing her BiPAP from home. She remains in the negative fluid balance as the patient is being diuresed with IV Lasix 40 mg IV every 12 hours. The patient is also on Decadron 6 mg IV every 24 hours regarding her acute COVID-19 infection. She remains on Aldactone 12.5 mg p.o. daily. Rest of the medications are unchanged. She remains on anti coagulation with Eliquis 5 mg p.o. twice a day. The white cell count is at 4 with a hemoglobin of 8.7 and a platelet count of 184. BUN 30 with a creatinine of 1.1 and a sodium levels at 134. No other significant events overnight. Blood sugar is slightly elevated. The patient was given Lantus insulin 20 units along with NovoLog 40 units 3 times daily with meals. She will be placed also on sliding scale coverage. She is on Farxiga 10 mg p.o. daily. On today's evaluation of 02/17/2025, the patient continues to have some cough and congestion and limited bronchospasm wheezing. Noted the patient has an acute CHF exacerbation in addition to an acute COVID-19 infection. She remains on Decadron 6 mg IV every 24 hours. She remains on Lasix 40 mg IV every 12 hours. Remains on Zaroxolyn. Remains on Aldactone. Fluid balance is still negative and the patient is -650 cc over the past 24 hours. BUN 36 with a creatinine of 1.2 and the patient's creatinine remains essentially stable and sodium levels at 137 with a potassium level of 4 and a serum bicarb of 43. No fever. No chills. No nausea or emesis and the patient remains on 5 L of oxygen by nasal cannula with pulse ox of 99%. He is also utilizing her BiPAP which is at the bedside at a pressure of 18/14 cm of water. Rest of the medications are essentially unchanged. The patient is on Lantus insulin. The patient is on insulin/scale coverage. Remains on anticoagulation with Eliquis. Remains on Farxiga. Remains on losartan. 02/18/2025, patient is feeling better. Continues to have some congested cough. Fluid balance is -620 cc and the patient remains on Decadron for COVID-19 infection. The patient remains on Lasix 20 mg IV every 12 hours. She is also on Zaroxolyn 5 mg p.o. daily basis. Remains on anticoagulation with Eliquis. No chest pain. Trace lower extremity edema. Blood work shows a white cell count of 4 with a hemoglobin 8.7. BUN 39 with a creatinine of 1.4 and a sodium levels at 137 and a potassium level is at 3.9. Awake and alert. Rest of the medications remain unchanged. Oxygenation remained stable and the patient is currently on 5 L of O2 nasal cannula. She is also utilizing BiPAP on and off during the day. 02/19/2025, the patient is being seen for a follow-up. No new complaints. Hemo dynamically stable. Continues to have edema lower extremities bilaterally. Fluid balance is -2.4 L over the past 24 hours and the patient continues to be on Lasix 40 mg IV every 12 hours. She remains on Decadron. She remains on anticoagulation with Eliquis. Blood sugars are being controlled with Lantus 30 units twice daily. Remains on tiotropium 1 puff a day and Ventolin 4 times a day. White cell count of 4.6, hemoglobin 8.4 and platelet count of 180. BUN 35 with a creatinine 1.4 and sodium levels at 135 and a potassium level is 3.9. Serum bicarb is at 40. No other significant events overnight. Sitting up in a chair. Calm and comfortable. Family is at the bedside. She is currently on 5 L of oxygen by nasal cannula with pulse ox of 99%. Utilizing her own BiPAP machine from home. Objective - Vital Signs Vital signs: Vital Signs Temp 97.7 F 02/19/25 09:10 Pulse 63 02/19/25 09:10 Resp 16 02/19/25 09:10 BP 112/52 02/19/25 09:10 Pulse Ox 100 02/19/25 09:10 FiO2 Intake & Output 02/18/25 02/19/25 02/19/25 18:59 06:59 18:59 Intake Total 476 330 Output Total 500 1850 Balance -24 -1520 Intake: IV 10 Invasive Line 1 10 Oral 476 320 Output: Urine 500 1850 Other: Voiding Method Toilet External Catheter - Exam GENERAL EXAM: Alert, 80-year-old obese female, on her home BiPAP machine, fairly comfortable in no apparent distress. Currently she is on 5 L of oxygen nasal cannula HEAD: Normocephalic. EYES: Normal reaction of pupils, equal size. NOSE: Clear with pink turbinates. THROAT: No erythema or exudates. NECK: No masses, no JVD. CHEST: No chest wall deformity. LUNGS: Equal air entry with crackles in the bilateral bases. CVS: S1 and S2 normal with an audible murmur, paced rhythm. ABDOMEN: No hepatosplenomegaly, normal bowel sounds, no guarding or rigidity. SPINE: No scoliosis or deformity SKIN: No rashes CENTRAL NERVOUS SYSTEM: No focal deficits, tone is normal in all 4 extremities. EXTREMITIES: There is 1-2+ peripheral edema. No clubbing, no cyanosis. Peripheral pulses are intact. - Labs CBC & Chem 7: 02/19/25 06:00 02/19/25 06:00 Labs: Abnormal Lab Results - Last 24 Hours (Table) 02/18/25 02/18/25 02/18/25 Range/Units 11:19 16:17 19:45 RBC (3.80-5.40) m/uL Hgb (11.4-16.0) gm/dL Hct (34.0-46.0) % MCV (80.0-100.0) fL MCHC (31.0-37.0) g/dL RDW (11.5-15.5) % Lymphocytes # (1.0-4.8) k/uL Sodium (137-145) mmol/L Chloride (98-107) mmol/L Carbon Dioxide (22-30) mmol/L BUN (7-17) mg/dL Creatinine (0.52-1.04) mg/dL Glucose (74-99) mg/dL POC Glucose (mg/dL) 254 H 279 H 276 H (70-110) mg/dL 02/19/25 02/19/25 02/19/25 Range/Units 06:00 06:00 06:01 RBC 2.83 L (3.80-5.40) m/uL Hgb 8.4 L (11.4-16.0) gm/dL Hct 28.6 L (34.0-46.0) % MCV 101.3 H (80.0-100.0) fL MCHC 29.2 L (31.0-37.0) g/dL RDW 16.6 H (11.5-15.5) % Lymphocytes # 0.6 L (1.0-4.8) k/uL Sodium 135 L (137-145) mmol/L Chloride 90 L (98-107) mmol/L Carbon Dioxide 40 H (22-30) mmol/L BUN 35 H (7-17) mg/dL Creatinine 1.46 H (0.52-1.04) mg/dL Glucose 186 H (74-99) mg/dL POC Glucose (mg/dL) 203 H (70-110) mg/dL Assessment and Plan Plan: Acute on chronic hypoxic respiratory failure secondary to acute exacerbation of systolic congestive heart failure and valvular heart disease, echocardiogram from 01/30/2025 showed an EF of 40 to 45% along with severe tricuspid regurgitation. Mildly reduced global LV function. The mitral valve was not adequately visualized. 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 The patient remains on 5 L of oxygen by nasal cannula. Clinically improving. Continues to be in negative fluid balance. Continues to have significant edema lower extremities bilaterally. Acute COVID infection. She has had previous COVID infection and she has received original vaccination x2 Chronic hypoxic respiratory failure, maintained on 5 L of oxygen on outpatient basis Severe pulmonary hypertension, group 2 History of obstructive sleep apnea with BIPAP 18/14 cm H20, the patient has a AirFit N20 nasal mask which she is utilizing for now Obesity, with a BMI of 46.13 kg/m History of valvular heart disease with previous aortic valve replacement, mitral valve replacement, and tricuspid valve repair, performed at the [facility] May, Dual-chamber pacemaker insertion, paced rhythm Paroxysmal A-fib maintained on anticoagulation with Eliquis Coronary artery disease with previous coronary stenting Diabetes mellitus, insulin-dependent Hypothyroidism Hyperlipidemia Hypertension Chronic anemia, hemoglobin stable at 8.2 g/dL Chronic metabolic alkalosis Plan: Continue same treatment. Shortness of breath is gradually improving. Patient currently on 5 L of O2 nasal cannula Continue home BiPAP machine at a pressure of 18/14 cm of water. While off the BiPAP, the patient will continue oxygen 5 L. Continue continue Zaroxolyn 5 mg p.o. daily Lasix 40 mg IV every 12 hours Continue Decadron 6 mg IV push every 24 hours, completed 10-day course Lantus insulin for blood sugar control in addition to NovoLog with meals and sliding scale coverage, currently on Lantus 30 units twice daily Monitor intake and output Monitor renal function electrolytes Anticoagulated with Eliquis Continue her home medications We will continue to follow Time with Patient: Greater than 30
[2025-02-19 16:19] LABS: Glucose,Whole Blood 461 mg/dL (70-110)
[2025-02-19 19:42] LABS: Glucose,Whole Blood 428 mg/dL (70-110)
[2025-02-19] MEDS: INSULIN LISPRO (HumaLOG) 100 UNIT/ML 10 mL VL SQ SCH (20:43)
[2025-02-19] MEDS: FUROSEMIDE 10 MG/ML 2 ML VIAL IV SCH (20:43)
[2025-02-19] MEDS: INSULIN GLARGINE (LANTUS) 100 UNIT/ML SYR SQ SCH (21:02)
[2025-02-20 01:59] LABS: Glucose,Whole Blood 248 mg/dL (70-110)
[2025-02-20 05:59] LABS: Glucose,Whole Blood 169 mg/dL (70-110)
[2025-02-20 07:32] LABS: African American GFR (CKD) 41 (>60 ml/min/1.73 sqM); Blood Urea Nitrogen 35 mg/dL (7-17); Chloride 90 mmol/L (98-107); Glucose 146 mg/dL (74-99); Magnesium 1.9 mg/dL (1.6-2.3); Non-African American GFR(CKD) 36 (>60 ml/min/1.73 sqM); Potassium 3.7 mmol/L (3.5-5.1); Sodium 136 mmol/L (137-145)
[2025-02-20 07:36] LABS: Basophils % (A) 0 %; Eosinophils # (A) 0.1 k/uL (0-0.7); Eosinophils % (A) 1 %; HCT 28.3 % (34.0-46.0); HGB 8.8 gm/dL (11.4-16.0); Hypochromasia Marked; Lymphocytes # (A) 0.7 k/uL (1.0-4.8); Lymphocytes % (A) 14 %; MCH 30.5 pg (25.0-35.0); MCV 98.3 fL (80.0-100.0); Macrocytosis Slight; Mean Platelet Volume 7.4; Monocytes # (A) 0.3 k/uL (0-1.0); Monocytes % (A) 7 %; Neutrophils % (A) 77 %; Platelet Count 167 k/uL (150-450); RBC 2.88 m/uL (3.80-5.40); WBC 5.2 k/uL (3.8-10.6)
[2025-02-20 07:39] LABS: Anion Gap 10 mmol/L
[2025-02-20 07:46] LABS: Carbon Dioxide 36 mmol/L (22-30)
--- NOTE | 2025-02-20 07:49 | P.PN ---
Subjective Progress Note Date: 02/19/25 This is a 80-year-old female who was recently admitted with increasing shortness of breath secondary to CHF as well as COPD and also noted to have COVID-19 infection being closely monitored with multiple consultations following. Patient is noted to have pleural effusions and pulmonary vascular congestion noted on recent chest x-ray is maintained on Lasix with increased dose. Patient is using CPAP and supplemental oxygen at 5 L. Patient kidney functions mildly elevated and being closely monitored again with nephrology following. Will follow-up on repeat labs and also monitor hemoglobin. Hemoglobin has been stable with no active bleeding noted. Hematology following for chronic anemia. Patient is afebrile continues to report shortness of breath with no worsening and is weak but reports has been getting up to the bathroom and back. Patient plans on going home on discharge. Review of systems: Constitutional: No reports of fatigue, fever, or chills Cardiovascular: No reports of chest pain or palpitations Respiratory: reports of shortness of breath and continued congested cough GI: No reports of nausea, no reports of vomiting, no diarrhea : No reports of dysuria or retention Neurovascular: reports of generalized weakness All medications have been reviewed PHYSICAL EXAMINATION: GENERAL: The patient is alert and oriented x4, Well developed, well nourished. Elderly appearing, morbidly obese HEENT: Pupils are round and equally reacting to light. EOMI. no scleral icterus. No conjunctival pallor. Normocephalic, atraumatic. No pharyngeal erythema. No thyromegaly. CARDIOVASCULAR: S1 and S2 muffled PULMONARY: diminished breath sounds bilaterally with no wheezing or rhonchi noted. ABDOMEN: soft. Nontender on exam. obese. non-distended, normoactive bowel sounds. No palpable organomegaly. MUSCULOSKELETAL: No joint swelling or deformity. EXTREMITIES: No cyanosis, clubbing, or pedal edema. NEUROLOGICAL: Gross neurological examination did not reveal any focal deficits. Diffuse weakness SKIN: No rashes. Assessment: Shortness of breath, possibly multifactorial including congestive heart failure with acute exacerbation as well as COPD acute exacerbation Acute COVID-19 pneumonia, bilateral with acute COVID-19 infection Paroxysmal atrial fibrillation history Diabetes mellitus, type II, uncontrolled with hyperglycemia Morbid obesity with a BMI of 45.6 History of chronic anemia, receives iron infusions outpatient with hematology GI prophylaxis DVT prophylaxis no code Plan: Recommend to continue with current medications and management with multiple co nsultations following Patient is using her CPAP and maintained on chronic 4 to 5 L via nasal cannula Continue with breathing treatments and supportive care Patient is on dexamethasone and also vitamin supplementation for COVID Continue monitoring Accu-Cheks AC and at bedtime and adjust insulins accordingly as patient's blood sugars have been elevated Encouraged increase activity as tolerated Due to multiple complex medical issues, overall prognosis is guarded The impression and plan of care has been dictated by Deloris Roger, nurse practitioner as directed. Dr. Madan MD I have performed a history and examination and MDM of this patient, discussed the same with the dictator, and agree with the dictator's assessment and plan as written ,documented as a scribe. Based on total visit time, I have performed more than 50% of the visit. Any additional findings or plans will be noted. Objective - Vital Signs Vital signs: Vital Signs Temp 98.1 F 02/19/25 11:20 Pulse 62 02/19/25 11:20 Resp 16 02/19/25 11:20 BP 106/63 02/19/25 11:20 Pulse Ox 100 02/19/25 11:20 FiO2 Intake & Output 02/18/25 02/19/25 02/19/25 18:59 06:59 18:59 Intake Total 476 330 Output Total 500 2750 Balance -24 -2420 Intake: IV 10 Invasive Line 1 10 Oral 476 320 Output: Urine 500 2750 Other: Voiding Method Toilet External Catheter - Labs CBC & Chem 7: 02/20/25 06:43 02/19/25 06:00 Labs: Abnormal Lab Results - Last 24 Hours (Table) 02/18/25 02/18/25 02/19/25 Range/Units 16:17 19:45 06:00 RBC (3.80-5.40) m/uL Hgb (11.4-16.0) gm/dL Hct (34.0-46.0) % MCV (80.0-100.0) fL MCHC (31.0-37.0) g/dL RDW (11.5-15.5) % Lymphocytes # (1.0-4.8) k/uL Sodium (137-145) mmol/L Chloride (98-107) mmol/L Carbon Dioxide (22-30) mmol/L BUN (7-17) mg/dL Creatinine (0.52-1.04) mg/dL Glucose (74-99) mg/dL POC Glucose (mg/dL) 279 H 276 H (70-110) mg/dL Hemoglobin A1c 6.5 H (<=6.0) % 02/19/25 02/19/25 02/19/25 Range/Units 06:00 06:00 06:01 RBC 2.83 L (3.80-5.40) m/uL Hgb 8.4 L (11.4-16.0) gm/dL Hct 28.6 L (34.0-46.0) % MCV 101.3 H (80.0-100.0) fL MCHC 29.2 L (31.0-37.0) g/dL RDW 16.6 H (11.5-15.5) % Lymphocytes # 0.6 L (1.0-4.8) k/uL Sodium 135 L (137-145) mmol/L Chloride 90 L (98-107) mmol/L Carbon Dioxide 40 H (22-30) mmol/L BUN 35 H (7-17) mg/dL Creatinine 1.46 H (0.52-1.04) mg/dL Glucose 186 H (74-99) mg/dL POC Glucose (mg/dL) 203 H (70-110) mg/dL Hemoglobin A1c (<=6.0) % 02/19/25 Range/Units 11:24 RBC (3.80-5.40) m/uL Hgb (11.4-16.0) gm/dL Hct (34.0-46.0) % MCV (80.0-100.0) fL MCHC (31.0-37.0) g/dL RDW (11.5-15.5) % Lymphocytes # (1.0-4.8) k/uL Sodium (137-145) mmol/L Chloride (98-107) mmol/L Carbon Dioxide (22-30) mmol/L BUN (7-17) mg/dL Creatinine (0.52-1.04) mg/dL Glucose (74-99) mg/dL POC Glucose (mg/dL) 329 H (70-110) mg/dL Hemoglobin A1c (<=6.0) %
[2025-02-20 11:39] LABS: Glucose,Whole Blood 251 mg/dL (70-110)
--- NOTE | 2025-02-20 13:42 | P.PN ---
Subjective Progress Note Date: 02/20/25 This is a 80-year-old female with past medical history significant for valvular heart disease with previous extensive open heart procedure at [facility] done May,. She also has past medical history significant for coronary artery disease with previous PCI/stent, dual-chamber pacemaker, paroxysmal atrial fibrillation, diabetes mellitus, hypothyroidism, hypertension, hyperlipidemia, obstructive sleep apnea with home CPAP. She has had recent multiple admissions here mostly for congestive heart failure. Most recently discharged home on 02/05/2025. She presented back to the emergency room again on 02/13/2025 with complaints of increasing shortness of breath. Her daughter was sick and was tested positive for COVID and the patient tested positive yesterday and felt the need to come to the emergency room. Chest x-ray reveals evidence of congestive heart failure with pulmonary venous congestion and scattered infiltrates. Small effusions. White count globin 8.2. Platelets 176. Sodium 134. Potassium 4.2. Bicarb 40. BUN 36. Creatinine 1.20. Glucose 247. Troponin 0.043, 0.030, 0.046. proBNP 4390. Viral screen positive for COVID. She is seen in consultation in the emergency department. She is currently resting on a stretcher currently wearing her home CPAP device with 5 L of oxygen bled in. Maintaining O2 saturations in the mid 90s. Afebrile. Hemodynamically stable. Breathing a bit easier today compared to yesterday. On today's evaluation of 02/15/2025, the patient is being seen for a follow-up. The patient was hospitalized for an acute decompensated heart failure and an acute COVID-19 infection. This morning, the patient is still in the emergency. She is calm and comfortable. She is utilizing on BiPAP machine from home which is set at a pressure of 18 over 14 cm of water. She is able to tolerate the BiPAP therapy without any major difficulties. She continues to have a congested cough. Noted her COVID-19 infection exacerbated his CHF. The patient had increased pulm vessel congestion and cardiomegaly and the patient is currently being subjected to diuretics. The patient is currently on Lasix 40 mg IV every 12 hours and Zaroxolyn 2.5 mg p.o. daily and Aldactone 12.5 mg p.o. daily. She remains on metoprolol 25 mg at bedtime and 50 mg in the morning. She remains on multiple anticoagulation with Eliquis. The patient was also started on Decadron regarding her COVID-19 infection. She has an extensive cardiac history including coronary disease, previous PCI and stenting, dual-chamber pacemaker insertion and paroxysmal A-fib. She is also known to have diabetes mellitus type 2, hypertension, hypothyroidism, hyperlipidemia in addition to obstructive sleep apnea maintained on BiPAP therapy on outpatient basis. Labs were reviewed. The white cell count of 3.9, hemoglobin 9 and a platelet count of 197. BUN is 33 with a creatinine of 1.24 and a sodium levels at 135 and a potassium level is at 3.5. Her troponin was at 0.046 max. She is free of any chest pain. proBNP level was 4390. On 02/16/2025, the patient is being seen for a follow-up with the patient is feeling better compared to yesterday. She seems to be less bronchospastic and wheezy and less congested. The patient is utilizing her BiPAP from home. She remains in the negative fluid balance as the patient is being diuresed with IV Lasix 40 mg IV every 12 hours. The patient is also on Decadron 6 mg IV every 24 hours regarding her acute COVID-19 infection. She remains on Aldactone 12.5 mg p.o. daily. Rest of the medications are unchanged. She remains on anti coagulation with Eliquis 5 mg p.o. twice a day. The white cell count is at 4 with a hemoglobin of 8.7 and a platelet count of 184. BUN 30 with a creatinine of 1.1 and a sodium levels at 134. No other significant events overnight. Blood sugar is slightly elevated. The patient was given Lantus insulin 20 units along with NovoLog 40 units 3 times daily with meals. She will be placed also on sliding scale coverage. She is on Farxiga 10 mg p.o. daily. On today's evaluation of 02/17/2025, the patient continues to have some cough and congestion and limited bronchospasm wheezing. Noted the patient has an acute CHF exacerbation in addition to an acute COVID-19 infection. She remains on Decadron 6 mg IV every 24 hours. She remains on Lasix 40 mg IV every 12 hours. Remains on Zaroxolyn. Remains on Aldactone. Fluid balance is still negative and the patient is -650 cc over the past 24 hours. BUN 36 with a creatinine of 1.2 and the patient's creatinine remains essentially stable and sodium levels at 137 with a potassium level of 4 and a serum bicarb of 43. No fever. No chills. No nausea or emesis and the patient remains on 5 L of oxygen by nasal cannula with pulse ox of 99%. He is also utilizing her BiPAP which is at the bedside at a pressure of 18/14 cm of water. Rest of the medications are essentially unchanged. The patient is on Lantus insulin. The patient is on insulin/scale coverage. Remains on anticoagulation with Eliquis. Remains on Farxiga. Remains on losartan. 02/18/2025, patient is feeling better. Continues to have some congested cough. Fluid balance is -620 cc and the patient remains on Decadron for COVID-19 infection. The patient remains on Lasix 20 mg IV every 12 hours. She is also on Zaroxolyn 5 mg p.o. daily basis. Remains on anticoagulation with Eliquis. No chest pain. Trace lower extremity edema. Blood work shows a white cell count of 4 with a hemoglobin 8.7. BUN 39 with a creatinine of 1.4 and a sodium levels at 137 and a potassium level is at 3.9. Awake and alert. Rest of the medications remain unchanged. Oxygenation remained stable and the patient is currently on 5 L of O2 nasal cannula. She is also utilizing BiPAP on and off during the day. 02/19/2025, the patient is being seen for a follow-up. No new complaints. Hemo dynamically stable. Continues to have edema lower extremities bilaterally. Fluid balance is -2.4 L over the past 24 hours and the patient continues to be on Lasix 40 mg IV every 12 hours. She remains on Decadron. She remains on anticoagulation with Eliquis. Blood sugars are being controlled with Lantus 30 units twice daily. Remains on tiotropium 1 puff a day and Ventolin 4 times a day. White cell count of 4.6, hemoglobin 8.4 and platelet count of 180. BUN 35 with a creatinine 1.4 and sodium levels at 135 and a potassium level is 3.9. Serum bicarb is at 40. No other significant events overnight. Sitting up in a chair. Calm and comfortable. Family is at the bedside. She is currently on 5 L of oxygen by nasal cannula with pulse ox of 99%. Utilizing her own BiPAP machine from home. On 02/20/2025, the patient is sitting up in a chair. Calm and comfortable. Denies having any specific complaints. She continues to produce adequate amount of urine output. Fluid balance is -3.7 L over the past 24 hours. She reports improvement in lower extremity edema. Cough and congestion still present although improving. BUN 35 creatinine 1.4. Sodium of 136 and a potassium level is at 3.7. White cell count of 5.2 with a hemoglobin of 8.8. Remains on Decadron 6 mg IV every 24 hours. Remains on Lasix 40 mg IV every 12 hours. Remains on anticoagulation with Eliquis. Rest of the medications are essentially unchanged. No new complaints otherwise known for now. Continues to utilize the BiPAP overnight. Objective - Vital Signs Vital signs: Vital Signs Temp 97.6 F 02/20/25 08:35 Pulse 64 02/20/25 08:35 Resp 18 02/20/25 08:35 BP 110/50 02/20/25 08:35 Pulse Ox 100 02/20/25 08:35 FiO2 Intake & Output 02/19/25 02/20/25 02/20/25 18:59 06:59 18:59 Intake Total 470 20 10 Output Total 2750 1500 Balance -2280 -1480 10 Weight 116.8 kg Intake: IV 30 20 10 Invasive Line 1 20 Invasive Line 2 10 20 10 Oral 440 Output: Urine 2750 1500 Other: Voiding Method Toilet Toilet External Catheter - Exam GENERAL EXAM: Alert, 80-year-old obese female, on her home BiPAP machine, fairly comfortable in no apparent distress. Currently she is on 5 L of oxygen nasal cannula HEAD: Normocephalic. EYES: Normal reaction of pupils, equal size. NOSE: Clear with pink turbinates. THROAT: No erythema or exudates. NECK: No masses, no JVD. CHEST: No chest wall deformity. LUNGS: Equal air entry with crackles in the bilateral bases. CVS: S1 and S2 normal with an audible murmur, paced rhythm. ABDOMEN: No hepatosplenomegaly, normal bowel sounds, no guarding or rigidity. SPINE: No scoliosis or deformity SKIN: No rashes CENTRAL NERVOUS SYSTEM: No focal deficits, tone is normal in all 4 extremities. EXTREMITIES: There is 1-2+ peripheral edema. No clubbing, no cyanosis. Peripheral pulses are intact. - Labs CBC & Chem 7: 02/20/25 06:43 02/20/25 06:43 Labs: Abnormal Lab Results - Last 24 Hours (Table) 02/19/25 02/19/25 02/19/25 Range/Units 06:00 11:24 16:16 RBC (3.80-5.40) m/uL Hgb (11.4-16.0) gm/dL Hct (34.0-46.0) % RDW (11.5-15.5) % Lymphocytes # (1.0-4.8) k/uL Sodium (137-145) mmol/L Chloride (98-107) mmol/L Carbon Dioxide (22-30) mmol/L BUN (7-17) mg/dL Creatinine (0.52-1.04) mg/dL Glucose (74-99) mg/dL POC Glucose (mg/dL) 329 H 461 H (70-110) mg/dL Hemoglobin A1c 6.5 H (<=6.0) % 02/19/25 02/20/25 02/20/25 Range/Units 19:40 01:58 05:58 RBC (3.80-5.40) m/uL Hgb (11.4-16.0) gm/dL Hct (34.0-46.0) % RDW (11.5-15.5) % Lymphocytes # (1.0-4.8) k/uL Sodium (137-145) mmol/L Chloride (98-107) mmol/L Carbon Dioxide (22-30) mmol/L BUN (7-17) mg/dL Creatinine (0.52-1.04) mg/dL Glucose (74-99) mg/dL POC Glucose (mg/dL) 428 H 248 H 169 H (70-110) mg/dL Hemoglobin A1c (<=6.0) % 02/20/25 02/20/25 Range/Units 06:43 06:43 RBC 2.88 L (3.80-5.40) m/uL Hgb 8.8 L (11.4-16.0) gm/dL Hct 28.3 L (34.0-46.0) % RDW 16.0 H (11.5-15.5) % Lymphocytes # 0.7 L (1.0-4.8) k/uL Sodium 136 L (137-145) mmol/L Chloride 90 L (98-107) mmol/L Carbon Dioxide 36 H (22-30) mmol/L BUN 35 H (7-17) mg/dL Creatinine 1.40 H (0.52-1.04) mg/dL Glucose 146 H (74-99) mg/dL POC Glucose (mg/dL) (70-110) mg/dL Hemoglobin A1c (<=6.0) % Assessment and Plan Plan: Acute on chronic hypoxic respiratory failure secondary to acute exacerbation of systolic congestive heart failure and valvular heart disease, echocardiogram from 01/30/2025 showed an EF of 40 to 45% along with severe tricuspid regurg itation. Mildly reduced global LV function. The mitral valve was not adequately visualized. 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 The patient remains on 5 L of oxygen by nasal cannula. Clinically improving. Con tinues to be in negative fluid balance. Continues to have significant edema lower extremities bilaterally. Acute COVID infection. She has had previous COVID infection and she has received original vaccination x2 Chronic hypoxic respiratory failure, maintained on 5 L of oxygen on outpatient basis Severe pulmonary hypertension, group 2 History of obstructive sleep apnea with BIPAP 18/14 cm H20, the patient has a AirFit N20 nasal mask which she is utilizing for now Obesity, with a BMI of 46.13 kg/m History of valvular heart disease with previous aortic valve replacement, mitral valve replacement, and tricuspid valve repair, performed at the [facility] [place], Dual-chamber pacemaker insertion, paced rhythm Paroxysmal A-fib maintained on anticoagulation with Eliquis Coronary artery disease with previous coronary stenting Diabetes mellitus, insulin-dependent Hypothyroidism Hyperlipidemia Hypertension Chronic anemia, hemoglobin stable at 8.2 g/dL Chronic metabolic alkalosis Plan: Continue same treatment. Clinically the patient is improving and she is in negative fluid balance and lower extremity edema is also improving. On examination, she seems to be much less congested and the cough is also subsiding. Shortness of breath is gradually improving. Patient currently on 5 L of O2 nasal cannula Continue home BiPAP machine at a pressure of 18/14 cm of water. While off the BiPAP, the patient will continue oxygen 5 L. Continue continue Zaroxolyn 5 mg p.o. daily Lasix 40 mg IV every 12 hours Continue Decadron 6 mg IV push every 24 hours, completed 10-day course Lantus insulin for blood sugar control in addition to NovoLog with meals and sliding scale coverage, currently on Lantus 40 units twice daily Monitor intake and output Monitor renal function electrolytes Anticoagulated with Eliquis Continue her home medications We will continue to follow Time with Patient: Greater than 30
--- NOTE | 2025-02-20 14:29 | P.PN ---
Subjective Progress Note Date: 02/20/25 Principal diagnosis: Reason for follow-up is COVID-19 Patient is a 80-year-old female with a past medical history significant for atrial Fibrillation, Diabetes Mellitus, Hearing Disorder / Deafness, Hyperlipidemia, Osteoarthritis (OA), Pneumonia, Sleep Apnea/CPAP/BIPAP , Thyroid Disorder, has been exposed to her daughter who tested positive for COVID-19 about a week ago presented hospital with shortness of breath and cough has been diagnosed with COVID-19 and possible component of CHF exacerbation. On today's evaluation that is 02/20/2025, patient did not have any fever and denies any chills, patient is breathing slightly comfortably on 5 L nasal cannula oxygen patient with no chest pain or any worsening cough patient did not have any abdominal pain nausea vomiting or any loose stools. Patient white count is 5.2, creatinine 1.40 chest x-ray cardiomegaly with left basilar infiltrate atelectasis chest ultrasound moderate-sized effusion Objective - Vital Signs Vital signs: Vital Signs Temp 98.1 F 02/20/25 11:44 Pulse 62 02/20/25 11:44 Resp 18 02/20/25 11:44 BP 120/73 02/20/25 11:44 Pulse Ox 100 02/20/25 11:44 FiO2 Intake & Output 02/19/25 02/20/25 02/20/25 18:59 06:59 18:59 Intake Total 470 20 250 Output Total 2750 1500 700 Balance -2280 -1480 -450 Weight 116.8 kg Intake: IV 30 20 10 Invasive Line 1 20 Invasive Line 2 10 20 10 Oral 440 240 Output: Urine 2750 1500 700 Other: Voiding Method Toilet Toilet External Catheter - Exam GENERAL DESCRIPTION: An elderly female up in bed in no distress RESPIRATORY SYSTEM: Unlabored breathing crackles Bilaterally HEART: S1 S2 regular rate and rhythm , ABDOMEN: Soft , no tenderness EXTREMITIES: Trace edema feet - Labs CBC & Chem 7: 02/20/25 06:43 02/20/25 06:43 Labs: Abnormal Lab Results - Last 24 Hours (Table) 02/19/25 02/19/25 02/20/25 Range/Units 16:16 19:40 01:58 RBC (3.80-5.40) m/uL Hgb (11.4-16.0) gm/dL Hct (34.0-46.0) % RDW (11.5-15.5) % Lymphocytes # (1.0-4.8) k/uL Sodium (137-145) mmol/L Chloride (98-107) mmol/L Carbon Dioxide (22-30) mmol/L BUN (7-17) mg/dL Creatinine (0.52-1.04) mg/dL Glucose (74-99) mg/dL POC Glucose (mg/dL) 461 H 428 H 248 H (70-110) mg/dL 02/20/25 02/20/25 02/20/25 Range/Units 05:58 06:43 06:43 RBC 2.88 L (3.80-5.40) m/uL Hgb 8.8 L (11.4-16.0) gm/dL Hct 28.3 L (34.0-46.0) % RDW 16.0 H (11.5-15.5) % Lymphocytes # 0.7 L (1.0-4.8) k/uL Sodium 136 L (137-145) mmol/L Chloride 90 L (98-107) mmol/L Carbon Dioxide 36 H (22-30) mmol/L BUN 35 H (7-17) mg/dL Creatinine 1.40 H (0.52-1.04) mg/dL Glucose 146 H (74-99) mg/dL POC Glucose (mg/dL) 169 H (70-110) mg/dL 02/20/25 Range/Units 11:37 RBC (3.80-5.40) m/uL Hgb (11.4-16.0) gm/dL Hct (34.0-46.0) % RDW (11.5-15.5) % Lymphocytes # (1.0-4.8) k/uL Sodium (137-145) mmol/L Chloride (98-107) mmol/L Carbon Dioxide (22-30) mmol/L BUN (7-17) mg/dL Creatinine (0.52-1.04) mg/dL Glucose (74-99) mg/dL POC Glucose (mg/dL) 251 H (70-110) mg/dL Assessment and Plan (1) Coronavirus infection Current Visit: Yes Status: Acute Code(s): B34.2 - CORONAVIRUS INFECTION, UNSPECIFIED SNOMED Code(s): 446161035 Plan: 1patient presented to hospital with increasing shortness of breath and cough which is likely multifactorial more likely related to fluid overload she also tested positive for COVID-19 however the patient is currently not running any fever and is on 5 L nasal cannula oxygen which is baseline for her and no need for any worsening oxygen requirement 2-patient is afebrile the patient white count is normal, last chest x-ray is mostly suggestive of CHF, some of the chest concern for left-sided effusion pulmonary is following 3patient seem to be slowly clinical improvement continue with 6 dexamethasone zinc ascorbic acid Eliquis and monitor clinical course closely Dictation was produced using [employer] dictation software. please excuse any grammatical, word or spelling errors. Time with Patient: Less than 30
[2025-02-20 16:26] LABS: Glucose,Whole Blood 426 mg/dL (70-110)
[2025-02-20 20:25] LABS: Glucose,Whole Blood 312 mg/dL (70-110)
--- NOTE | 2025-02-20 23:19 | P.PN ---
Subjective Progress Note Date: 02/20/25 HISTORY OF PRESENT ILLNESS: The patient is a 80-year-old female patient who is known to our service from before with extensive cardiac history consistent of valvular heart disease status post aortic valve replacement and mitral valve replacement and tricuspid valve repair in May 2024 performed at [facility] as well as history of heart failure as well as cardiomyopathy and also diabetes and hypertension and dyslipidemia and chronic kidney disease and chronic anemia secondary to iron deficiency anemia and permanent pacemaker and permanent atrial fibrillation. The patient was seen by our service earlier this month after she was admitted with heart failure and she was discharged on oral diuretics and according to her she has been compliant with it. She presented back to the hospital not feeling well experiencing progressive exertional dyspnea associated with cough and congestions and fever as well and also bilateral lower extremities edema. No pain in the chest or dizziness or lightheadedness or any feeling of heart racing or fluttering or presyncope or syncope which she stated that she has been compliant with the current medical regimen including the current dose of oral diuretics. She stated that also she has been compliant with low-sodium diet. She underwent further evaluation including COVID test came in to be abnormal and also she underwent a chest x-ray showed finding consistent with heart failure as well as NT proBNP came to be around 4000. Hemoglobin came to be around 8 which is her baseline. Kidney function is at baseline as well. The EKG showed underlying atrial fibrillation with ventricular paced rhythm. She underwent an echo in January 2024 showed mildly impaired LV function with overall normally functioning aortic and mitral prosthesis. When she presented to the hospital she was hypoxic requiring oxygen. The physical examination is remarkable for extensive bilateral expiratory wheezing with a distant heart sounds and bilateral lower extremities pitting edema noted as well 02/15/2025 Patient continues to have shortness of breath, still appears volume overloaded 1-2+ pitting edema bilateral extremity, crackles and wheezing and mild rhonchi audible in bilateral lung castillo Elevated JVP 02/16/2025 BP 160/65, heart rate 65 bpm, Telemetry shows underlying rhythm being atrial fibrillation with V paced rhythm Hemoglobin 8.7, BUN 30, creatinine 1.17, 02/17/2025 Patient examined this morning at the bedside. Patient continues to report shortness of breath. She has a frequent cough noted. She remains on IV diuretics. BUN 36. Creatinine 1.23. 02/18/2025 Patient examined this morning at the bedside. Patient's daughter is present. Patient currently denies chest pain or pressure. She continues to report shortness of breath with a frequent cough. Creatinine today 1.41. CO2 41. Patient's daughter states she was up to the chair yesterday for most of the day. 02/19/2025 Patient examined this morning at the bedside. Patient currently denies chest pain or pressure. Patient continues to report mild shortness of breath with frequent coughing. Vital signs are stable. CO2 40. BUN 35. Creatinine 1.46. 02/20/2025 BP 120/73, heart rate 60 reviewed failure Still appears volume overloaded PHYSICAL EXAM: VITAL SIGNS: Reviewed. GENERAL: Well-developed in no acute distress. NECK: Supple. No JVD or thyromegaly LUNGS: Respirations even and unlabored. Lungs with bilateral rhonchi. Frequent coughing noted. HEART: Regular rate and rhythm. S1 and S2 heard. EXTREMITIES: Normal range of motion. No clubbing or cyanosis. Peripheral pulse s intact. Swelling of bilateral legs ASSESSMENT: Acute COVID-19 Acute on chronic heart failure with reduced EF, 40 to 45% Severe pulmonary hypertension Paroxysmal atrial fibrillation History of permanent pacemaker implantation, [facility], 2018 History of aortic valve replacement, mitral valve replacement, and tricuspid valve repair, May 2024 at [facility] Coronary artery disease with previous stenting Chronic anemia with previous workup for GI bleed, both EGD and colonoscopy negative for source Hypertension Hyperlipidemia Diabetes Morbid obesity: BMI 45.7 PLAN: Continue current cardiac medications including Eliquis, Lipitor, Farxiga, losartan, Zaroxolyn, and metoprolol Aldactone discontinued 02/18/2025 due to low GFR at baseline Increase Lasix to 40 mg every 12 hours Daily weights, accurate intake and output, and monitoring of kidney function Continue to encourage use of incentive spirometer and flutter valve Further recommendations pending patient course Patient to follow-up postdischarge with Dr. Watson Objective - Vital Signs Vital signs: Vital Signs Temp 98.3 F 02/20/25 20:39 Pulse 60 02/20/25 20:39 Resp 18 02/20/25 20:39 BP 106/62 02/20/25 20:39 Pulse Ox 99 02/20/25 20:39 FiO2 Intake & Output 02/20/25 02/20/25 02/21/25 06:59 18:59 06:59 Intake Total 20 378 10 Output Total 1500 1200 Balance -1480 -822 10 Weight 116.8 kg Intake: IV 20 20 10 Invasive Line 2 20 20 10 Oral 358 Output: Urine 1500 1200 Other: Voiding Method Toilet Toilet Toilet External Catheter External Catheter # Voids 2 - Labs CBC & Chem 7: 02/20/25 06:43 02/20/25 06:43 Labs: Abnormal Lab Results - Last 24 Hours (Table) 02/20/25 02/20/25 02/20/25 Range/Units 01:58 05:58 06:43 RBC (3.80-5.40) m/uL Hgb (11.4-16.0) gm/dL Hct (34.0-46.0) % RDW (11.5-15.5) % Lymphocytes # (1.0-4.8) k/uL Sodium 136 L (137-145) mmol/L Chloride 90 L (98-107) mmol/L Carbon Dioxide 36 H (22-30) mmol/L BUN 35 H (7-17) mg/dL Creatinine 1.40 H (0.52-1.04) mg/dL Glucose 146 H (74-99) mg/dL POC Glucose (mg/dL) 248 H 169 H (70-110) mg/dL 02/20/25 02/20/25 02/20/25 Range/Units 06:43 11:37 16:25 RBC 2.88 L (3.80-5.40) m/uL Hgb 8.8 L (11.4-16.0) gm/dL Hct 28.3 L (34.0-46.0) % RDW 16.0 H (11.5-15.5) % Lymphocytes # 0.7 L (1.0-4.8) k/uL Sodium (137-145) mmol/L Chloride (98-107) mmol/L Carbon Dioxide (22-30) mmol/L BUN (7-17) mg/dL Creatinine (0.52-1.04) mg/dL Glucose (74-99) mg/dL POC Glucose (mg/dL) 251 H 426 H (70-110) mg/dL 02/20/25 Range/Units 20:23 RBC (3.80-5.40) m/uL Hgb (11.4-16.0) gm/dL Hct (34.0-46.0) % RDW (11.5-15.5) % Lymphocytes # (1.0-4.8) k/uL Sodium (137-145) mmol/L Chloride (98-107) mmol/L Carbon Dioxide (22-30) mmol/L BUN (7-17) mg/dL Creatinine (0.52-1.04) mg/dL Glucose (74-99) mg/dL POC Glucose (mg/dL) 312 H (70-110) mg/dL
--- NOTE | 2025-02-21 00:53 | PN ---
PROGRESS NOTE DATE OF SERVICE: 02/20/2025 SUBJECTIVE: This is a 80-year-old woman, who is admitted with CHF exacerbation, also had COVID pneumonia. No chest pain. No palpitation. The patient had left pleural effusion rather chronic and Dr. Helms is recommending conservative line of management. EXAM: VITAL SIGNS: Pulse 62, blood pressure 120/70, respirations 18. CHEST: Few scattered rhonchi and crackles. ABDOMEN: Soft. NERVOUS SYSTEM: Nonfocal. LABORATORY DATA: Reviewed. ASSESSMENT: 1. Shortness of breath, multifactorial, congestive heart failure acute exacerbation as well as chronic obstructive pulmonary disease with acute exacerbation. 2. Acute COVID-19 pneumonia. 3. Left pleural effusion. Medical conservative line of management. 4. Paroxysmal atrial fibrillation. 5. Diabetes mellitus, type 2. 6. Multiple complex medical issues. RECOMMENDATIONS AND DISCUSSION: I recommended to continue current management, continue symptomatic treatment. Otherwise, at this time I will recommend to continue the current medications. I would recommend to monitor creatinine closely. The patient is on 40 of Lasix at home. Closely follow with Cardiology. Guarded prognosis. Further recommendations to follow. MMODL / IJN: [id number] /
[2025-02-21 06:14] LABS: Glucose,Whole Blood 89 mg/dL (70-110)
[2025-02-21 07:14] LABS: Anisocytosis Slight; Basophils % (A) 1 %; Eosinophils % (A) 1 %; HCT 29.5 % (34.0-46.0); HGB 8.7 gm/dL (11.4-16.0); Hypochromasia Moderate; Lymphocytes # (A) 0.8 k/uL (1.0-4.8); Lymphocytes % (A) 13 %; MCH 29.3 pg (25.0-35.0); MCHC 29.6 g/dL (31.0-37.0); Macrocytosis Slight; Monocytes # (A) 0.3 k/uL (0-1.0); Monocytes % (A) 6 %; Neutrophils # (A) 4.4 k/uL (1.3-7.7); Neutrophils % (A) 78 %; Platelet Count 173 k/uL (150-450); RBC 2.98 m/uL (3.80-5.40); RDW 16.1 % (11.5-15.5); WBC 5.7 k/uL (3.8-10.6)
[2025-02-21 07:36] LABS: African American GFR (CKD) 39 (>60 ml/min/1.73 sqM); Anion Gap 7 mmol/L; Blood Urea Nitrogen 39 mg/dL (7-17); Calcium 9.1 mg/dL (8.4-10.2); Carbon Dioxide 36 mmol/L (22-30); Chloride 93 mmol/L (98-107); Glucose 75 mg/dL (74-99); Non-African American GFR(CKD) 34 (>60 ml/min/1.73 sqM); Potassium 3.8 mmol/L (3.5-5.1); Sodium 136 mmol/L (137-145)
--- NOTE | 2025-02-21 10:59 | P.PN ---
Subjective Progress Note Date: 02/21/25 This is a 80-year-old female with past medical history significant for valvular heart disease with previous extensive open heart procedure at [facility] done May,. She also has past medical history significant for coronary artery disease with previous PCI/stent, dual-chamber pacemaker, paroxysmal atrial fibrillation, diabetes mellitus, hypothyroidism, hypertension, hyperlipidemia, obstructive sleep apnea with home CPAP. She has had recent multiple admissions here mostly for congestive heart failure. Most recently discharged home on 02/05/2025. She presented back to the emergency room again on 02/13/2025 with complaints of increasing shortness of breath. Her daughter was sick and was tested positive for COVID and the patient tested positive yesterday and felt the need to come to the emergency room. Chest x-ray reveals evidence of congestive heart failure with pulmonary venous congestion and scattered infiltrates. Small effusions. White count globin 8.2. Platelets 176. Sodium 134. Potassium 4.2. Bicarb 40. BUN 36. Creatinine 1.20. Glucose 247. Troponin 0.043, 0.030, 0.046. proBNP 4390. Viral screen positive for COVID. She is seen in consultation in the emergency department. She is currently resting on a stretcher currently wearing her home CPAP device with 5 L of oxygen bled in. Maintaining O2 saturations in the mid 90s. Afebrile. Hemodynamically stable. Breathing a bit easier today compared to yesterday. On today's evaluation of 02/15/2025, the patient is being seen for a follow-up. The patient was hospitalized for an acute decompensated heart failure and an acute COVID-19 infection. This morning, the patient is still in the emergency. She is calm and comfortable. She is utilizing on BiPAP machine from home which is set at a pressure of 18 over 14 cm of water. She is able to tolerate the BiPAP therapy without any major difficulties. She continues to have a congested cough. Noted her COVID-19 infection exacerbated his CHF. The patient had increased pulm vessel congestion and cardiomegaly and the patient is currently being subjected to diuretics. The patient is currently on Lasix 40 mg IV every 12 hours and Zaroxolyn 2.5 mg p.o. daily and Aldactone 12.5 mg p.o. daily. She remains on metoprolol 25 mg at bedtime and 50 mg in the morning. She remains on multiple anticoagulation with Eliquis. The patient was also started on Decadron regarding her COVID-19 infection. She has an extensive cardiac history including coronary disease, previous PCI and stenting, dual-chamber pacemaker insertion and paroxysmal A-fib. She is also known to have diabetes mellitus type 2, hypertension, hypothyroidism, hyperlipidemia in addition to obstructive sleep apnea maintained on BiPAP therapy on outpatient basis. Labs were reviewed. The white cell count of 3.9, hemoglobin 9 and a platelet count of 197. BUN is 33 with a creatinine of 1.24 and a sodium levels at 135 and a potassium level is at 3.5. Her troponin was at 0.046 max. She is free of any chest pain. proBNP level was 4390. On 02/16/2025, the patient is being seen for a follow-up with the patient is feeling better compared to yesterday. She seems to be less bronchospastic and wheezy and less congested. The patient is utilizing her BiPAP from home. She remains in the negative fluid balance as the patient is being diuresed with IV Lasix 40 mg IV every 12 hours. The patient is also on Decadron 6 mg IV every 24 hours regarding her acute COVID-19 infection. She remains on Aldactone 12.5 mg p.o. daily. Rest of the medications are unchanged. She remains on anti coagulation with Eliquis 5 mg p.o. twice a day. The white cell count is at 4 with a hemoglobin of 8.7 and a platelet count of 184. BUN 30 with a creatinine of 1.1 and a sodium levels at 134. No other significant events overnight. Blood sugar is slightly elevated. The patient was given Lantus insulin 20 units along with NovoLog 40 units 3 times daily with meals. She will be placed also on sliding scale coverage. She is on Farxiga 10 mg p.o. daily. On today's evaluation of 02/17/2025, the patient continues to have some cough and congestion and limited bronchospasm wheezing. Noted the patient has an acute CHF exacerbation in addition to an acute COVID-19 infection. She remains on Decadron 6 mg IV every 24 hours. She remains on Lasix 40 mg IV every 12 hours. Remains on Zaroxolyn. Remains on Aldactone. Fluid balance is still negative and the patient is -650 cc over the past 24 hours. BUN 36 with a creatinine of 1.2 and the patient's creatinine remains essentially stable and sodium levels at 137 with a potassium level of 4 and a serum bicarb of 43. No fever. No chills. No nausea or emesis and the patient remains on 5 L of oxygen by nasal cannula with pulse ox of 99%. He is also utilizing her BiPAP which is at the bedside at a pressure of 18/14 cm of water. Rest of the medications are essentially unchanged. The patient is on Lantus insulin. The patient is on insulin/scale coverage. Remains on anticoagulation with Eliquis. Remains on Farxiga. Remains on losartan. 02/18/2025, patient is feeling better. Continues to have some congested cough. Fluid balance is -620 cc and the patient remains on Decadron for COVID-19 infection. The patient remains on Lasix 20 mg IV every 12 hours. She is also on Zaroxolyn 5 mg p.o. daily basis. Remains on anticoagulation with Eliquis. No chest pain. Trace lower extremity edema. Blood work shows a white cell count of 4 with a hemoglobin 8.7. BUN 39 with a creatinine of 1.4 and a sodium levels at 137 and a potassium level is at 3.9. Awake and alert. Rest of the medications remain unchanged. Oxygenation remained stable and the patient is currently on 5 L of O2 nasal cannula. She is also utilizing BiPAP on and off during the day. 02/19/2025, the patient is being seen for a follow-up. No new complaints. Hemo dynamically stable. Continues to have edema lower extremities bilaterally. Fluid balance is -2.4 L over the past 24 hours and the patient continues to be on Lasix 40 mg IV every 12 hours. She remains on Decadron. She remains on anticoagulation with Eliquis. Blood sugars are being controlled with Lantus 30 units twice daily. Remains on tiotropium 1 puff a day and Ventolin 4 times a day. White cell count of 4.6, hemoglobin 8.4 and platelet count of 180. BUN 35 with a creatinine 1.4 and sodium levels at 135 and a potassium level is 3.9. Serum bicarb is at 40. No other significant events overnight. Sitting up in a chair. Calm and comfortable. Family is at the bedside. She is currently on 5 L of oxygen by nasal cannula with pulse ox of 99%. Utilizing her own BiPAP machine from home. On 02/20/2025, the patient is sitting up in a chair. Calm and comfortable. Denies having any specific complaints. She continues to produce adequate amount of urine output. Fluid balance is -3.7 L over the past 24 hours. She reports improvement in lower extremity edema. Cough and congestion still present although improving. BUN 35 creatinine 1.4. Sodium of 136 and a potassium level is at 3.7. White cell count of 5.2 with a hemoglobin of 8.8. Remains on Decadron 6 mg IV every 24 hours. Remains on Lasix 40 mg IV every 12 hours. Remains on anticoagulation with Eliquis. Rest of the medications are essentially unchanged. No new complaints otherwise known for now. Continues to utilize the BiPAP overnight. 02/21/2025, the patient is being seen for a follow-up. She is sitting up in a chair and she remains on 5 L of oxygen by nasal cannula. She is still receiving IV Lasix 40 mg every 12 hours. Fluid balance is -1.2 L over the past 24 hours. Continues to have some congested cough. The white cell count of 5.7, hemoglobin 8.7 and platelet count of 173. BUN 39 with a creatinine of 1.4 and a sodium levels at 136. She remains on Decadron to complete a 10-day course. She re debbie on diuretics. She remains on anticoagulation with Eliquis. Rest of the medications are unchanged. She is also on Zaroxolyn 5 mg p.o. daily. Metoprolol 50 mg the morning and 25 mg in the evening for rate control regarding her atrial fibrillation. Objective - Vital Signs Vital signs: Vital Signs Temp 97.6 F 02/21/25 03:49 Pulse 61 02/21/25 03:49 Resp 18 02/21/25 03:49 BP 99/59 02/21/25 03:49 Pulse Ox 100 02/21/25 03:49 FiO2 Intake & Output 02/20/25 02/21/25 02/21/25 18:59 06:59 18:59 Intake Total 378 260 Output Total 1200 700 Balance -822 -440 Weight 106.4 kg Intake: IV 20 20 Invasive Line 2 20 20 Oral 358 240 Output: Urine 1200 700 Other: Voiding Method Toilet Toilet External Catheter External Catheter # Voids 2 1 - Exam GENERAL EXAM: Alert, 80-year-old obese female, on her home BiPAP machine, fairly comfortable in no apparent distress. Currently she is on 5 L of oxygen nasal cannula HEAD: Normocephalic. EYES: Normal reaction of pupils, equal size. NOSE: Clear with pink turbinates. THROAT: No erythema or exudates. NECK: No masses, no JVD. CHEST: No chest wall deformity. LUNGS: Equal air entry with crackles in the bilateral bases. CVS: S1 and S2 normal with an audible murmur, paced rhythm. ABDOMEN: No hepatosplenomegaly, normal bowel sounds, no guarding or rigidity. SPINE: No scoliosis or deformity SKIN: No rashes CENTRAL NERVOUS SYSTEM: No focal deficits, tone is normal in all 4 extremities. EXTREMITIES: There is 1-2+ peripheral edema. No clubbing, no cyanosis. Peripheral pulses are intact. - Labs CBC & Chem 7: 02/21/25 06:21 02/21/25 06:21 Labs: Abnormal Lab Results - Last 24 Hours (Table) 02/20/25 02/20/25 02/20/25 Range/Units 11:37 16:25 20:23 RBC (3.80-5.40) m/uL Hgb (11.4-16.0) gm/dL Hct (34.0-46.0) % MCHC (31.0-37.0) g/dL RDW (11.5-15.5) % Lymphocytes # (1.0-4.8) k/uL Sodium (137-145) mmol/L Chloride (98-107) mmol/L Carbon Dioxide (22-30) mmol/L BUN (7-17) mg/dL Creatinine (0.52-1.04) mg/dL POC Glucose (mg/dL) 251 H 426 H 312 H (70-110) mg/dL 02/21/25 02/21/25 Range/Units 06:21 06:21 RBC 2.98 L (3.80-5.40) m/uL Hgb 8.7 L (11.4-16.0) gm/dL Hct 29.5 L (34.0-46.0) % MCHC 29.6 L (31.0-37.0) g/dL RDW 16.1 H (11.5-15.5) % Lymphocytes # 0.8 L (1.0-4.8) k/uL Sodium 136 L (137-145) mmol/L Chloride 93 L (98-107) mmol/L Carbon Dioxide 36 H (22-30) mmol/L BUN 39 H (7-17) mg/dL Creatinine 1.46 H (0.52-1.04) mg/dL POC Glucose (mg/dL) (70-110) mg/dL Assessment and Plan Plan: Acute on chronic hypoxic respiratory failure secondary to acute exacerbation of systolic congestive heart failure and valvular heart disease, echocardiogram from 01/30/2025 showed an EF of 40 to 45% along with severe tricuspid regurgitation. Mildly reduced global LV function. The mitral valve was not adequately visualized. 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 The pat ient remains on 5 L of oxygen by nasal cannula. Clinically improving. Continues to be in negative fluid balance. Continues to have significant edema lower extremities bilaterally. Acute COVID infection. She has had previous COVID infection and she has received original vaccination x2 Chronic hypoxic respiratory failure, maintained on 5 L of oxygen on outpatient basis Severe pulmonary hypertension, group 2 History of obstructive sleep apnea with BIPAP 18/14 cm H20, the patient has a AirFit N20 nasal mask which she is utilizing for now Obesity, with a BMI of 46.13 kg/m History of valvular heart disease with previous aortic valve replacement, mitral valve replacement, and tricuspid valve repair, performed at the [facility] May, Dual-chamber pacemaker insertion, paced rhythm Paroxysmal A-fib maintained on anticoagulation with Eliquis Coronary artery disease with previous coronary stenting Diabetes mellitus, insulin-dependent Hypothyroidism Hyperlipidemia Hypertension Chronic anemia, hemoglobin stable at 8.2 g/dL Chronic metabolic alkalosis Plan: Clinically improving and the patient is sitting up in a chair Continue same treatment. Clinically the patient is improving and she is in negative fluid balance and lower extremity edema is also improving. On examination, she seems to be much less congested and the cough is also subsiding. The patient is 1.2 L negative fluid balance over the past 24 hours Shortness of breath is gradually improving. Patient currently on 5 L of O2 nasal cannula Continue home BiPAP machine at a pressure of 18/14 cm of water. While off the BiPAP, the patient will continue oxygen 5 L. Continue continue Zaroxolyn 5 mg p.o. daily Lasix 40 mg IV every 12 hours Continue Decadron 6 mg IV push every 24 hours, completed 10-day course Lantus insulin for blood sugar control in addition to NovoLog with meals and sliding scale coverage, currently on Lantus 40 units twice daily Monitor intake and output Monitor renal function electrolytes Anticoagulated with Eliquis Obtain follow-up chest x-ray in the morning Continue her home medications We will continue to follow Time with Patient: Greater than 30
[2025-02-21 11:44] LABS: Glucose,Whole Blood 140 mg/dL (70-110)
--- NOTE | 2025-02-21 13:08 | P.PN ---
Subjective Progress Note Date: 02/21/25 Principal diagnosis: Reason for follow-up is COVID-19 Patient is a 80-year-old female with a past medical history significant for atrial Fibrillation, Diabetes Mellitus, Hearing Disorder / Deafness, Hyperlipidemia, Osteoarthritis (OA), Pneumonia, Sleep Apnea/CPAP/BIPAP , Thyroid Disorder, has been exposed to her daughter who tested positive for COVID-19 about a week ago presented hospital with shortness of breath and cough has been diagnosed with COVID-19 and possible component of CHF exacerbation. On today's evaluation that is 02/21/2025, Patient is afebrile patient is currently on 5 L nasal oxygen and mention breathing slightly comfortably she could not have a cough no chest pain no abdominal pain or diarrhea. Patient white count is 5.7, creatinine 1.46 Objective - Vital Signs Vital signs: Vital Signs Temp 98.2 F 02/21/25 11:14 Pulse 61 02/21/25 11:14 Resp 16 02/21/25 11:14 BP 97/54 02/21/25 11:14 Pulse Ox 100 02/21/25 11:14 FiO2 Intake & Output 02/20/25 02/21/25 02/21/25 18:59 06:59 18:59 Intake Total 378 260 128 Output Total 1200 700 Balance -822 -440 128 Weight 106.4 kg Intake: IV 20 20 10 Invasive Line 2 20 20 10 Oral 358 240 118 Output: Urine 1200 700 Other: Voiding Method Toilet Toilet Toilet External Catheter External Catheter External Catheter # Voids 2 1 - Exam GENERAL DESCRIPTION: An elderly female up in bed in no distress RESPIRATORY SYSTEM: Unlabored breathing crackles Bilaterally HEART: S1 S2 regular rate and rhythm , ABDOMEN: Soft , no tenderness EXTREMITIES: Trace edema feet - Labs CBC & Chem 7: 02/21/25 06:21 02/21/25 06:21 Labs: Abnormal Lab Results - Last 24 Hours (Table) 02/20/25 02/20/25 02/21/25 Range/Units 16:25 20:23 06:21 RBC 2.98 L (3.80-5.40) m/uL Hgb 8.7 L (11.4-16.0) gm/dL Hct 29.5 L (34.0-46.0) % MCHC 29.6 L (31.0-37.0) g/dL RDW 16.1 H (11.5-15.5) % Lymphocytes # 0.8 L (1.0-4.8) k/uL Sodium (137-145) mmol/L Chloride (98-107) mmol/L Carbon Dioxide (22-30) mmol/L BUN (7-17) mg/dL Creatinine (0.52-1.04) mg/dL POC Glucose (mg/dL) 426 H 312 H (70-110) mg/dL 02/21/25 02/21/25 Range/Units 06:21 11:42 RBC (3.80-5.40) m/uL Hgb (11.4-16.0) gm/dL Hct (34.0-46.0) % MCHC (31.0-37.0) g/dL RDW (11.5-15.5) % Lymphocytes # (1.0-4.8) k/uL Sodium 136 L (137-145) mmol/L Chloride 93 L (98-107) mmol/L Carbon Dioxide 36 H (22-30) mmol/L BUN 39 H (7-17) mg/dL Creatinine 1.46 H (0.52-1.04) mg/dL POC Glucose (mg/dL) 140 H (70-110) mg/dL Assessment and Plan (1) Coronavirus infection Current Visit: Yes Status: Acute Code(s): B34.2 - CORONAVIRUS INFECTION, UNSPECIFIED SNOMED Code(s): 722701947 Plan: 1patient presented to hospital with increasing shortness of breath and cough which is likely multifactorial more likely related to fluid overload she also tested positive for COVID-19 however the patient is currently not running any fever and is on 5 L nasal cannula oxygen which is baseline for her and no need for any worsening oxygen requirement 2-patient mentions some improvement she remains to be afebrile and white count normal she will continue with dexamethasone zinc ascorbic acid Eliquchad and mata tor clinical course closely Dictation was produced using [employer]ormate[employer] software. please excuse any grammatical, word or spelling errors. Time with Patient: Less than 30
[2025-02-21 16:09] LABS: Glucose,Whole Blood 164 mg/dL (70-110)
--- NOTE | 2025-02-21 17:06 | P.PN ---
Subjective Progress Note Date: 02/21/25 HISTORY OF PRESENT ILLNESS: The patient is a 80-year-old female patient who is known to our service from before with extensive cardiac history consistent of valvular heart disease status post aortic valve replacement and mitral valve replacement and tricuspid valve repair in May 2024 performed at [facility] as well as history of heart failure as well as cardiomyopathy and also diabetes and hypertension and dyslipidemia and chronic kidney disease and chronic anemia secondary to iron deficiency anemia and permanent pacemaker and permanent atrial fibrillation. The patient was seen by our service earlier this month after she was admitted with heart failure and she was discharged on oral diuretics and according to her she has been compliant with it. She presented back to the hospital not feeling well experiencing progressive exertional dyspnea associated with cough and congestions and fever as well and also bilateral lower extremities edema. No pain in the chest or dizziness or lightheadedness or any feeling of heart racing or fluttering or presyncope or syncope which she stated that she has been compliant with the current medical regimen including the current dose of oral diuretics. She stated that also she has been compliant with low-sodium diet. She underwent further evaluation including COVID test came in to be abnormal and also she underwent a chest x-ray showed finding consistent with heart failure as well as NT proBNP came to be around 4000. Hemoglobin came to be around 8 which is her baseline. Kidney function is at baseline as well. The EKG showed underlying atrial fibrillation with ventricular paced rhythm. She underwent an echo in January 2024 showed mildly impaired LV function with overall normally functioning aortic and mitral prosthesis. When she presented to the hospital she was hypoxic requiring oxygen. The physical examination is remarkable for extensive bilateral expiratory wheezing with a distant heart sounds and bilateral lower extremities pitting edema noted as well 02/15/2025 Patient continues to have shortness of breath, still appears volume overloaded 1-2+ pitting edema bilateral extremity, crackles and wheezing and mild rhonchi audible in bilateral lung castillo Elevated JVP 02/16/2025 BP 160/65, heart rate 65 bpm, Telemetry shows underlying rhythm being atrial fibrillation with V paced rhythm Hemoglobin 8.7, BUN 30, creatinine 1.17, 02/17/2025 Patient examined this morning at the bedside. Patient continues to report shortness of breath. She has a frequent cough noted. She remains on IV diuretics. BUN 36. Creatinine 1.23. 02/18/2025 Patient examined this morning at the bedside. Patient's daughter is present. Patient currently denies chest pain or pressure. She continues to report shortness of breath with a frequent cough. Creatinine today 1.41. CO2 41. Patient's daughter states she was up to the chair yesterday for most of the day. 02/19/2025 Patient examined this morning at the bedside. Patient currently denies chest pain or pressure. Patient continues to report mild shortness of breath with frequent coughing. Vital signs are stable. CO2 40. BUN 35. Creatinine 1.46. 02/20/2025 BP 120/73, heart rate 60 reviewed failure Still appears volume overloaded 02/21/2025 BP 109/55, heart rate 60 bpm Kidney function is stable, still appears volume overloaded with crackles audible in bilateral lung castillo PHYSICAL EXAM: VITAL SIGNS: Reviewed. GENERAL: Well-developed in no acute distress. NECK: Supple. No JVD or thyromegaly LUNGS: Respirations even and unlabored. Lungs with bilateral rhonchi. Frequent coughing noted. HEART: Regular rate and rhythm. S1 and S2 heard. EXTREMITIES: Normal range of motion. No clubbing or cyanosis. Peripheral pulses intact. Swelling of bilateral legs ASSESSMENT: Acute COVID-19 Acute on chronic heart failure with reduced EF, 40 to 45% Severe pulmonary hypertension Paroxysmal atrial fibrillation History of permanent pacemaker implantation, [facility], 2017 History of aortic valve replacement, mitral valve replacement, and tricuspid valve repair, May 2024 at [facility] Coronary artery disease with previous stenting Chronic anemia with previous workup for GI bleed, both EGD and colonoscopy negative for source Hypertension Hyperlipidemia Diabetes Morbid obesity: BMI 45.7 PLAN: Continue current cardiac medications including Eliquis, Lipitor, Farxiga, losa rtan, Zaroxolyn, and metoprolol Aldactone discontinued 02/18/2025 due to low GFR at baseline Increase Lasix to 40 mg every 12 hours Daily weights, accurate intake and output, and monitoring of kidney function Continue to encourage use of incentive spirometer and flutter valve Further recommendations pending patient course Patient to follow-up postdischarge with Dr. Watson Objective - Vital Signs Vital signs: Vital Signs Temp 98.2 F 02/21/25 11:14 Pulse 61 02/21/25 11:14 Resp 16 02/21/25 11:14 BP 97/54 02/21/25 11:14 Pulse Ox 100 02/21/25 11:14 FiO2 Intake & Output 02/20/25 02/21/25 02/21/25 18:59 06:59 18:59 Intake Total 378 260 128 Output Total 1200 700 700 Balance -822 -440 -572 Weight 106.4 kg Intake: IV 20 20 10 Invasive Line 2 20 20 10 Oral 358 240 118 Output: Urine 1200 700 700 Other: Voiding Method Toilet Toilet Toilet External Catheter External Catheter External Catheter # Voids 2 1 - Labs CBC & Chem 7: 02/21/25 06:21 02/21/25 06:21 Labs: Abnormal Lab Results - Last 24 Hours (Table) 02/20/25 02/21/25 02/21/25 Range/Units 20:23 06:21 06:21 RBC 2.98 L (3.80-5.40) m/uL Hgb 8.7 L (11.4-16.0) gm/dL Hct 29.5 L (34.0-46.0) % MCHC 29.6 L (31.0-37.0) g/dL RDW 16.1 H (11.5-15.5) % Lymphocytes # 0.8 L (1.0-4.8) k/uL Sodium 136 L (137-145) mmol/L Chloride 93 L (98-107) mmol/L Carbon Dioxide 36 H (22-30) mmol/L BUN 39 H (7-17) mg/dL Creatinine 1.46 H (0.52-1.04) mg/dL POC Glucose (mg/dL) 312 H (70-110) mg/dL 02/21/25 02/21/25 Range/Units 11:42 16:07 RBC (3.80-5.40) m/uL Hgb (11.4-16.0) gm/dL Hct (34.0-46.0) % MCHC (31.0-37.0) g/dL RDW (11.5-15.5) % Lymphocytes # (1.0-4.8) k/uL Sodium (137-145) mmol/L Chloride (98-107) mmol/L Carbon Dioxide (22-30) mmol/L BUN (7-17) mg/dL Creatinine (0.52-1.04) mg/dL POC Glucose (mg/dL) 140 H 164 H (70-110) mg/dL
[2025-02-21 20:11] LABS: Glucose,Whole Blood 158 mg/dL (70-110)
[2025-02-21] MEDS: APIXABAN 2.5 MG TABLET PO SCH (20:44)
[2025-02-21] MEDS ORDERED: APIXABAN 5 MG TAB PO SCH (21:00)
[2025-02-22 00:06] LABS: Glucose,Whole Blood 100 mg/dL (70-110)
--- NOTE | 2025-02-22 02:11 | PN ---
PROGRESS NOTE DATE OF SERVICE: 02/21/2025 SUBJECTIVE: This is a 80-year-old woman, who was admitted with CHF acute exacerbation, also had COVID pneumonia. The patient also had left pleural effusion rather chronic. No chest pain. No palpitation. OBJECTIVE: VITAL SIGNS: Pulse 61, blood pressure 97/54, respirations 16. CHEST: A few scattered rhonchi. ABDOMEN: Soft. NERVOUS SYSTEM: Nonfocal. LABORATORY DATA: Hemoglobin 8.7. Creatinine is 1.46. ASSESSMENT: 1. Shortness of breath, multifactorial, congestive heart failure acute exacerbation as well as chronic obstructive pulmonary disease acute exacerbation. 2. Acute COVID-19 pneumonia. 3. Left pleural effusion, medical conservative management at this time. 4. Paroxysmal atrial fibrillation. 5. Diabetes mellitus, type 2. 6. Multiple medical issues. RECOMMENDATIONS: Recommended to continue current management and continue symptomatic treatment. Repeat labs. Closely follow with Pulmonary and Cardiology. Guarded prognosis. Further recommendations to follow. MMODL / IJN: [id number] /
[2025-02-22 03:11] LABS: Glucose,Whole Blood 117 mg/dL (70-110)
[2025-02-22 06:10] LABS: Glucose,Whole Blood 72 mg/dL (70-110)
[2025-02-22 06:35] LABS: Anisocytosis Slight; Basophils % (A) 1 %; Eosinophils # (A) 0.1 k/uL (0-0.7); Eosinophils % (A) 2 %; HCT 30.3 % (34.0-46.0); Hypochromasia Moderate; Lymphocytes # (A) 1.1 k/uL (1.0-4.8); Lymphocytes % (A) 16 %; MCH 29.3 pg (25.0-35.0); MCHC 29.6 g/dL (31.0-37.0); MCV 98.9 fL (80.0-100.0); Macrocytosis Slight; Mean Platelet Volume 8.5; Monocytes # (A) 0.5 k/uL (0-1.0); Monocytes % (A) 7 %; Neutrophils # (A) 5.2 k/uL (1.3-7.7); Neutrophils % (A) 73 %; Platelet Count 193 k/uL (150-450); RBC 3.06 m/uL (3.80-5.40); RDW 16.3 % (11.5-15.5); WBC 7.1 k/uL (3.8-10.6)
[2025-02-22 07:04] LABS: African American GFR (CKD) 33 (>60 ml/min/1.73 sqM); Anion Gap 5 mmol/L; Blood Urea Nitrogen 48 mg/dL (7-17); Calcium 8.7 mg/dL (8.4-10.2); Carbon Dioxide 38 mmol/L (22-30); Chloride 92 mmol/L (98-107); Glucose 58 mg/dL (74-99); Non-African American GFR(CKD) 28 (>60 ml/min/1.73 sqM); Potassium 3.8 mmol/L (3.5-5.1); Sodium 135 mmol/L (137-145)
[2025-02-22 08:42] LABS: Glucose,Whole Blood 67 mg/dL (70-110)
[2025-02-22] MEDS: FUROSEMIDE 40 MG TAB PO SCH (08:47)
[2025-02-22 09:41] LABS: Glucose,Whole Blood 120 mg/dL (70-110)
[2025-02-22] MEDS: metOLazone 2.5 MG TAB PO SCH (10:58)
[2025-02-22 11:26] LABS: Glucose,Whole Blood 188 mg/dL (70-110)
[2025-02-22 11:59] VITALS: RESP 17
--- NOTE | 2025-02-22 12:52 | P.PN ---
Subjective Progress Note Date: 02/22/25 Principal diagnosis: Reason for follow-up is COVID-19 Patient is a 80-year-old female with a past medical history significant for atrial Fibrillation, Diabetes Mellitus, Hearing Disorder / Deafness, Hyperlipidemia, Osteoarthritis (OA), Pneumonia, Sleep Apnea/CPAP/BIPAP , Thyroid Disorder, has been exposed to her daughter who tested positive for COVID-19 about a week ago presented hospital with shortness of breath and cough has been diagnosed with COVID-19 and possible component of CHF exacerbation. On today's evaluation that is 02/22/2025, patient has been afebrile, patient is breathing slightly comfortably and is currently on 5 L with current oxygen, patient denies having any chest pain or any worsening cough, patient denies nausea vomiting or diarrhea and no abdominal pain. Patient white count 7.1, creatinine 1.70 Objective - Vital Signs Vital signs: Vital Signs Temp 97.4 F L 02/22/25 08:30 Pulse 62 02/22/25 11:59 Resp 17 02/22/25 11:59 BP 104/54 02/22/25 11:59 Pulse Ox 100 02/22/25 11:59 FiO2 Intake & Output 02/21/25 02/22/25 02/22/25 18:59 06:59 18:59 Intake Total 364 240 Output Total 700 0 Balance -336 0 240 Weight 109.3 kg Intake: IV 10 Invasive Line 2 10 Oral 354 240 Output: Urine 700 0 Other: Voiding Method Toilet Toilet Toilet External Catheter External Catheter External Catheter # Voids 0 - Exam GENERAL DESCRIPTION: An elderly female up in bed in no distress RESPIRATORY SYSTEM: Unlabored breathing crackles Bilaterally HEART: S1 S2 regular rate and rhythm , ABDOMEN: Soft , no tenderness EXTREMITIES: Trace edema feet - Labs CBC & Chem 7: 02/22/25 06:18 02/22/25 06:18 Labs: Abnormal Lab Results - Last 24 Hours (Table) 02/21/25 02/21/25 02/22/25 Range/Units 16:07 20:10 03:09 RBC (3.80-5.40) m/uL Hgb (11.4-16.0) gm/dL Hct (34.0-46.0) % MCHC (31.0-37.0) g/dL RDW (11.5-15.5) % Sodium (137-145) mmol/L Chloride (98-107) mmol/L Carbon Dioxide (22-30) mmol/L BUN (7-17) mg/dL Creatinine (0.52-1.04) mg/dL Glucose (74-99) mg/dL POC Glucose (mg/dL) 164 H 158 H 117 H (70-110) mg/dL 02/22/25 02/22/25 02/22/25 Range/Units 06:18 06:18 08:41 RBC 3.06 L (3.80-5.40) m/uL Hgb 9.0 L (11.4-16.0) gm/dL Hct 30.3 L (34.0-46.0) % MCHC 29.6 L (31.0-37.0) g/dL RDW 16.3 H (11.5-15.5) % Sodium 135 L (137-145) mmol/L Chloride 92 L (98-107) mmol/L Carbon Dioxide 38 H (22-30) mmol/L BUN 48 H (7-17) mg/dL Creatinine 1.70 H (0.52-1.04) mg/dL Glucose 58 L (74-99) mg/dL POC Glucose (mg/dL) 67 L (70-110) mg/dL 02/22/25 02/22/25 Range/Units 09:39 11:24 RBC (3.80-5.40) m/uL Hgb (11.4-16.0) gm/dL Hct (34.0-46.0) % MCHC (31.0-37.0) g/dL RDW (11.5-15.5) % Sodium (137-145) mmol/L Chloride (98-107) mmol/L Carbon Dioxide (22-30) mmol/L BUN (7-17) mg/dL Creatinine (0.52-1.04) mg/dL Glucose (74-99) mg/dL POC Glucose (mg/dL) 120 H 188 H (70-110) mg/dL Assessment and Plan (1) Coronavirus infection Current Visit: Yes Status: Acute Code(s): B34.2 - CORONAVIRUS INFECTION, UNSPECIFIED SNOMED Code(s): 403887173 Plan: 1patient presented to hospital with increasing shortness of breath and cough which is likely multifactorial more likely related to fluid overload she also tested positive for COVID-19 however the patient is currently not running any fever and is on 5 L nasal cannula oxygen which is baseline for her and no need for any worsening oxygen requirement 2-patient remains to be afebrile and white count normal she will continue with dexamethasone zinc ascorbic acid Eliquis and continue with supportive care Dictation was produced using linkedü dictation software. please excuse any grammatical, word or spelling errors. Time with Patient: Less than 30
--- NOTE | 2025-02-22 13:24 | P.PN ---
Subjective Progress Note Date: 02/22/25 HISTORY OF PRESENT ILLNESS: The patient is a 80-year-old female patient who is known to our service from before with extensive cardiac history consistent of valvular heart disease status post aortic valve replacement and mitral valve replacement and tricuspid valve repair in May 2024 performed at [facility] as well as history of heart failure as well as cardiomyopathy and also diabetes and hypertension and dyslipidemia and chronic kidney disease and chronic anemia secondary to iron deficiency anemia and permanent pacemaker and permanent atrial fibrillation. The patient was seen by our service earlier this month after she was admitted with heart failure and she was discharged on oral diuretics and according to her she has been compliant with it. She presented back to the hospital not feeling well experiencing progressive exertional dyspnea associated with cough and congestions and fever as well and also bilateral lower extremities edema. No pain in the chest or dizziness or lightheadedness or any feeling of heart racing or fluttering or presyncope or syncope which she stated that she has been compliant with the current medical regimen including the current dose of oral diuretics. She stated that also she has been compliant with low-sodium diet. She underwent further evaluation including COVID test came in to be abnormal and also she underwent a chest x-ray showed finding consistent with heart failure as well as NT proBNP came to be around 4000. Hemoglobin came to be around 8 which is her baseline. Kidney function is at baseline as well. The EKG showed underlying atrial fibrillation with ventricular paced rhythm. She underwent an echo in January 2024 showed mildly impaired LV function with overall normally functioning aortic and mitral prosthesis. When she presented to the hospital she was hypoxic requiring oxygen. The physical examination is remarkable for extensive bilateral expiratory wheezing with a distant heart sounds and bilateral lower extremities pitting edema noted as well 02/15/2025 Patient continues to have shortness of breath, still appears volume overloaded 1-2+ pitting edema bilateral extremity, crackles and wheezing and mild rhonchi audible in bilateral lung castillo Elevated JVP 02/16/2025 BP 160/65, heart rate 65 bpm, Telemetry shows underlying rhythm being atrial fibrillation with V paced rhythm Hemoglobin 8.7, BUN 30, creatinine 1.17, 02/17/2025 Patient examined this morning at the bedside. Patient continues to report shortness of breath. She has a frequent cough noted. She remains on IV diuretics. BUN 36. Creatinine 1.23. 02/18/2025 Patient examined this morning at the bedside. Patient's daughter is present. Patient currently denies chest pain or pressure. She continues to report shortness of breath with a frequent cough. Creatinine today 1.41. CO2 41. Patient's daughter states she was up to the chair yesterday for most of the day. 02/19/2025 Patient examined this morning at the bedside. Patient currently denies chest pain or pressure. Patient continues to report mild shortness of breath with frequent coughing. Vital signs are stable. CO2 40. BUN 35. Creatinine 1.46. 02/20/2025 BP 120/73, heart rate 60 reviewed failure Still appears volume overloaded 02/21/2025 BP 109/55, heart rate 60 bpm Kidney function is stable, still appears volume overloaded with crackles audible in bilateral lung castillo 02/22 Patient is seen and examined. Patient states she is feeling better. She still has a cough and still having wheezing. Blood pressure was on the low side last evening and Lasix and beta-kevin were held. Blood pressure at that time was 80/30 and now 97/59. Creatinine also went up. She has been maintained on IV Lasix 40 mg every 12 hours. Heart rate is running in the 60s, pulse ox 100% on 5 L nasal cannula. Patient is on CPAP during the night. Repeat blood work is hemoglobin 9, BUN 48 and creatinine 1.7, potassium 3.8. PHYSICAL EXAM: VITAL SIGNS: Reviewed. GENERAL: Well-developed in no acute distress. NECK: Supple. No JVD or thyromegaly LUNGS: Respirations even and unlabored. Lungs with bilateral wheezing. Frequent coughing noted. HEART: Regular rate and rhythm. S1 and S2 heard. EXTREMITIES: Normal range of motion. No clubbing or cyanosis. Peripheral pulses intact. Swelling of bilateral legs ASSESSMENT: Acute COVID-19 Acute on chronic heart failure with reduced EF, 40 to 45% Severe pulmonary hypertension Paroxysmal atrial fibrillation History of permanent pacemaker implantation, [facility], 2018 History of aortic valve replacement, mitral valve replacement, and tricuspid valve repair, May 2024 at [facility] Coronary artery disease with previous stenting Chronic anemia with previous workup for GI bleed, both EGD and colonoscopy negative for source Hypertension Hyperlipidemia Diabetes Morbid obesity: BMI 45.7 PLAN: Continue current cardiac medications including Eliquis, Lipitor, Farxiga, losartan, and metoprolol Aldactone discontinued 02/18/2025 due to low GFR at baseline Transition IV Lasix to oral 40 mg twice daily Decrease metolazone to 2.5 mg daily Monitor Daily weights, intake and output, electrolytes and kidney function Further recommendations pending patient course Patient to follow-up postdischarge with Dr. Watson Nurse practitioner note has been reviewed, I agree with documented findings and plan of care. Patient was seen and examined. Objective - Vital Signs Vital signs: Vital Signs Temp 97.4 F L 02/22/25 08:30 Pulse 60 02/22/25 08:30 Resp 16 02/22/25 08:30 BP 97/59 02/22/25 08:30 Pulse Ox 99 02/22/25 08:30 FiO2 Intake & Output 02/21/25 02/22/25 02/22/25 18:59 06:59 18:59 Intake Total 364 Output Total 700 0 Balance -336 0 Weight 109.3 kg Intake: IV 10 Invasive Line 2 10 Oral 354 Output: Urine 700 0 Other: Voiding Method Toilet Toilet External Catheter External Catheter # Voids 0 - Labs CBC & Chem 7: 02/22/25 06:18 02/22/25 06:18 Labs: Abnormal Lab Results - Last 24 Hours (Table) 02/21/25 02/21/25 02/21/25 Range/Units 11:42 16:07 20:10 RBC (3.80-5.40) m/uL Hgb (11.4-16.0) gm/dL Hct (34.0-46.0) % MCHC (31.0-37.0) g/dL RDW (11.5-15.5) % Sodium (137-145) mmol/L Chloride (98-107) mmol/L Carbon Dioxide (22-30) mmol/L BUN (7-17) mg/dL Creatinine (0.52-1.04) mg/dL Glucose (74-99) mg/dL POC Glucose (mg/dL) 140 H 164 H 158 H (70-110) mg/dL 02/22/25 02/22/25 02/22/25 Range/Units 03:09 06:18 06:18 RBC 3.06 L (3.80-5.40) m/uL Hgb 9.0 L (11.4-16.0) gm/dL Hct 30.3 L (34.0-46.0) % MCHC 29.6 L (31.0-37.0) g/dL RDW 16.3 H (11.5-15.5) % Sodium 135 L (137-145) mmol/L Chloride 92 L (98-107) mmol/L Carbon Dioxide 38 H (22-30) mmol/L BUN 48 H (7-17) mg/dL Creatinine 1.70 H (0.52-1.04) mg/dL Glucose 58 L (74-99) mg/dL POC Glucose (mg/dL) 117 H (70-110) mg/dL 02/22/25 Range/Units 08:41 RBC (3.80-5.40) m/uL Hgb (11.4-16.0) gm/dL Hct (34.0-46.0) % MCHC (31.0-37.0) g/dL RDW (11.5-15.5) % Sodium (137-145) mmol/L Chloride (98-107) mmol/L Carbon Dioxide (22-30) mmol/L BUN (7-17) mg/dL Creatinine (0.52-1.04) mg/dL Glucose (74-99) mg/dL POC Glucose (mg/dL) 67 L (70-110) mg/dL
[2025-02-22 16:14] LABS: Glucose,Whole Blood 317 mg/dL (70-110)
--- NOTE | 2025-02-22 17:15 | P.PN ---
Subjective Progress Note Date: 02/22/25 Principal diagnosis: Acute on chronic hypoxic respiratory failure with acute COVID-19 infection and acute systolic congestive heart failure his is a 80-year-old female with past medical history significant for valvular heart disease with previous extensive open heart procedure at [facility] done May,. She also has past medical history significant for coronary artery disease with previous PCI/stent, dual-chamber pacemaker, paroxysmal atrial fibrillation, diabetes mellitus, hypothyroidism, hypertension, hyperlipidemia, obstructive sleep apnea with home CPAP. She has had recent multiple admissions here mostly for congestive heart failure. Most recently discharged home on 02/05/2025. She presented back to the emergency room again on 02/13/2025 with complaints of increasing shortness of breath. Her daughter was sick and was tested positive for COVID and the patient tested positive yesterday and felt the need to come to the emergency room. Chest x-ray reveals evidence of congestive heart failure with pulmonary venous congestion and scattered infiltrates. Small effusions. White count globin 8.2. Platelets 176. Sodium 134. Potassium 4.2. Bicarb 40. BUN 36. Creatinine 1.20. Glucose 247. Troponin 0.043, 0.030, 0.046. proBNP 4390. Viral screen positive for COVID. She is seen in consultation in the emergency department. She is currently res ting on a stretcher currently wearing her home CPAP device with 5 L of oxygen bled in. Maintaining O2 saturations in the mid 90s. Afebrile. Hemodynamically stable. Breathing a bit easier today compared to yesterday. On today's evaluation of 02/15/2025, the patient is being seen for a follow-up. The patient was hospitalized for an acute decompensated heart failure and an acute COVID-19 infection. This morning, the patient is still in the emergency. She is calm and comfortable. She is utilizing on BiPAP machine from home which is set at a pressure of 18 over 14 cm of water. She is able to tolerate the BiPAP therapy without any major difficulties. She continues to have a congested cough. Noted her COVID-19 infection exacerbated his CHF. The patient had increased pulm vessel congestion and cardiomegaly and the patient is currently being subjected to diuretics. The patient is currently on Lasix 40 mg IV every 12 hours and Zaroxolyn 2.5 mg p.o. daily and Aldactone 12.5 mg p.o. daily. She remains on metoprolol 25 mg at bedtime and 50 mg in the morning. She remains on multiple anticoagulation with Eliquis. The patient was also started on Decadron regarding her COVID-19 infection. She has an extensive cardiac history including coronary disease, previous PCI and stenting, dual-chamber pacemaker insertion and paroxysmal A-fib. She is also known to have diabetes mellitus type 2, hypertension, hypothyroidism, hyperlipidemia in addition to obstructive sleep apnea maintained on BiPAP therapy on outpatient basis. Labs were reviewed. The white cell count of 3.9, hemoglobin 9 and a platelet count of 197. BUN is 33 with a creatinine of 1.24 and a sodium levels at 135 and a potassium level is at 3.5. Her troponin was at 0.046 max. She is free of any chest pain. proBNP level was 4390. On 02/16/2025, the patient is being seen for a follow-up with the patient is feeli ng better compared to yesterday. She seems to be less bronchospastic and wheezy and less congested. The patient is utilizing her BiPAP from home. She remains in the negative fluid balance as the patient is being diuresed with IV Lasix 40 mg IV every 12 hours. The patient is also on Decadron 6 mg IV every 24 hours regarding her acute COVID-19 infection. She remains on Aldactone 12.5 mg p.o. daily. Rest of the medications are unchanged. She remains on anticoagulation with Eliquis 5 mg p.o. twice a day. The white cell count is at 4 with a hemoglobin of 8.7 and a platelet count of 184. BUN 30 with a creatinine of 1.1 and a sodium levels at 134. No other significant events overnight. Blood sugar is slightly elevated. The patient was given Lantus insulin 20 units along with NovoLog 40 units 3 times daily with meals. She will be placed also on sliding scale coverage. She is on Farxiga 10 mg p.o. daily. On today's evaluation of 02/17/2025, the patient continues to have some cough and congestion and limited bronchospasm wheezing. Noted the patient has an acute CHF exacerbation in addition to an acute COVID-19 infection. She remains on Decadron 6 mg IV every 24 hours. She remains on Lasix 40 mg IV every 12 hours. Remains on Zaroxolyn. Remains on Aldactone. Fluid balance is still negative and the patient is -650 cc over the past 24 hours. BUN 36 with a creatinine of 1.2 and the patient's creatinine remains essentially stable and sodium levels at 137 with a potassium level of 4 and a serum bicarb of 43. No fever. No chills. No nausea or emesis and the patient remains on 5 L of oxygen by nasal cannula with pulse ox of 99%. He is also utilizing her BiPAP which is at the bedside at a pressure of 18/14 cm of water. Rest of the medications are essentially unchan ged. The patient is on Lantus insulin. The patient is on insulin/scale coverage. Remains on anticoagulation with Eliquis. Remains on Farxiga. Remains on losartan. 02/18/2025, patient is feeling better. Continues to have some congested cough. Fluid balance is -620 cc and the patient remains on Decadron for COVID-19 infection. The patient remains on Lasix 20 mg IV every 12 hours. She is also on Zaroxolyn 5 mg p.o. daily basis. Remains on anticoagulation with Eliquis. No chest pain. Trace lower extremity edema. Blood work shows a white cell count of 4 with a hemoglobin 8.7. BUN 39 with a creatinine of 1.4 and a sodium levels at 137 and a potassium level is at 3.9. Awake and alert. Rest of the medications remain unchanged. Oxygenation remained stable and the patient is currently on 5 L of O2 nasal cannula. She is also utilizing BiPAP on and off during the day. 02/19/2025, the patient is being seen for a follow-up. No new complaints. Hemodynamically stable. Continues to have edema lower extremities bilaterally. Fluid balance is -2.4 L over the past 24 hours and the patient continues to be on Lasix 40 mg IV every 12 hours. She remains on Decadron. She remains on ant icoagulation with Eliquis. Blood sugars are being controlled with Lantus 30 units twice daily. Remains on tiotropium 1 puff a day and Ventolin 4 times a day. White cell count of 4.6, hemoglobin 8.4 and platelet count of 180. BUN 35 with a creatinine 1.4 and sodium levels at 135 and a potassium level is 3.9. Serum bicarb is at 40. No other significant events overnight. Sitting up in a chair. Calm and comfortable. Family is at the bedside. She is currently on 5 L of oxygen by nasal cannula with pulse ox of 99%. Utilizing her own BiPAP machine from home. On 02/20/2025, the patient is sitting up in a chair. Calm and comfortable. Denies having any specific complaints. She continues to produce adequate amount of urine output. Fluid balance is -3.7 L over the past 24 hours. She reports improvement in lower extremity edema. Cough and congestion still present although improving. BUN 35 creatinine 1.4. Sodium of 136 and a potassium level is at 3.7. White cell count of 5.2 with a hemoglobin of 8.8. Remains on Decadron 6 mg IV every 24 hours. Remains on Lasix 40 mg IV every 12 hours. Remains on anticoagulation with Eliquis. Rest of the medications are essentially unchanged. No new complaints otherwise known for now. Continues to utilize the BiPAP overnight. 02/21/2025, the patient is being seen for a follow-up. She is sitting up in a chair and she remains on 5 L of oxygen by nasal cannula. She is still receiving IV Lasix 40 mg every 12 hours. Fluid balance is -1.2 L over the past 24 hours. Continues to have some congested cough. The white cell count of 5.7, hemoglobin 8.7 and platelet count of 173. BUN 39 with a creatinine of 1.4 and a sodium levels at 136. She remains on Decadron to complete a 10-day course. She remains on diuretics. She remains on anticoagulation with Eliquis. Rest of the medications are unchanged. She is also on Zaroxolyn 5 mg p.o. daily. Metoprolol 50 mg the morning and 25 mg in the evening for rate control regarding her atrial fibrillation. Seen today on 02/22/2025 Remains marginal at best, remains on 5 L nasal cannula, still receiving diuretics, she had a negative fluid balance, patient remains on diuretics remains on bronchodilators, she is also anticoagulated, and she is on metoprolol. CBC is relatively normal except for low hemoglobin of 9 electrolytes are normal BUN however is 48 creatinine 1.70, has been gradually rising with diuretics. Ultrasound chest did show evidence of a left pleural effusion 9.6 cm pocket, however the patient was responding well to diuretics, and I chose not to do thoracentesis unless the pleural effusion does not improve with medical therapy. Objective - Vital Signs Vital signs: Vital Signs Temp 97.4 F L 02/22/25 08:30 Pulse 64 02/22/25 15:32 Resp 17 02/22/25 15:32 BP 107/65 02/22/25 15:32 Pulse Ox 100 02/22/25 15:32 FiO2 Intake & Output 02/21/25 02/22/25 02/22/25 18:59 06:59 18:59 Intake Total 364 240 Output Total 700 0 Balance -336 0 240 Weight 109.3 kg Intake: IV 10 Invasive Line 2 10 Oral 354 240 Output: Urine 700 0 Other: Voiding Method Toilet Toilet Toilet External Catheter External Catheter External Catheter # Voids 0 3 - Exam GENERAL EXAM: Revealed a 80-year-old female on 5 L nasal cannula, off BiPAP, in no distress HEAD: Normocephalic. EYES: Normal reaction of pupils, equal size. NOSE: Clear with pink turbinates. THROAT: No erythema or exudates. NECK: No masses, no JVD. CHEST: No chest wall deformity. LUNGS: Equal air entry with crackles in the bilateral bases. CVS: S1 and S2 normal with an audible murmur, paced rhythm. ABDOMEN: No hepatosplenomegaly, normal bowel sounds, no guarding or rigidity. SKIN: No rashes CENTRAL NERVOUS SYSTEM: No focal deficits, tone is normal in all 4 extremities. EXTREMITIES: There is 1-2+ peripheral edema. No clubbing, no cyanosis. Peripheral pulses are intact. - Labs CBC & Chem 7: 02/22/25 06:18 02/22/25 06:18 Labs: Abnormal Lab Results - Last 24 Hours (Table) 02/21/25 02/22/25 02/22/25 Range/Units 20:10 03:09 06:18 RBC 3.06 L (3.80-5.40) m/uL Hgb 9.0 L (11.4-16.0) gm/dL Hct 30.3 L (34.0-46.0) % MCHC 29.6 L (31.0-37.0) g/dL RDW 16.3 H (11.5-15.5) % Sodium (137-145) mmol/L Chloride (98-107) mmol/L Carbon Dioxide (22-30) mmol/L BUN (7-17) mg/dL Creatinine (0.52-1.04) mg/dL Glucose (74-99) mg/dL POC Glucose (mg/dL) 158 H 117 H (70-110) mg/dL 02/22/25 02/22/25 02/22/25 Range/Units 06:18 08:41 09:39 RBC (3.80-5.40) m/uL Hgb (11.4-16.0) gm/dL Hct (34.0-46.0) % MCHC (31.0-37.0) g/dL RDW (11.5-15.5) % Sodium 135 L (137-145) mmol/L Chloride 92 L (98-107) mmol/L Carbon Dioxide 38 H (22-30) mmol/L BUN 48 H (7-17) mg/dL Creatinine 1.70 H (0.52-1.04) mg/dL Glucose 58 L (74-99) mg/dL POC Glucose (mg/dL) 67 L 120 H (70-110) mg/dL 02/22/25 02/22/25 Range/Units 11:24 16:09 RBC (3.80-5.40) m/uL Hgb (11.4-16.0) gm/dL Hct (34.0-46.0) % MCHC (31.0-37.0) g/dL RDW (11.5-15.5) % Sodium (137-145) mmol/L Chloride (98-107) mmol/L Carbon Dioxide (22-30) mmol/L BUN (7-17) mg/dL Creatinine (0.52-1.04) mg/dL Glucose (74-99) mg/dL POC Glucose (mg/dL) 188 H 317 H (70-110) mg/dL Assessment and Plan Assessment: Impression: Acute on chronic hypoxic respiratory failure secondary to acute exacerbation of systolic congestive heart failure and valvular heart disease, echocardiogram from 01/30/2025 showed an EF of 40 to 45% along with severe tricuspid regurgitation. Mildly reduced global LV function. The mitral valve was not adequately visualized. 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 The patient remains on 5 L of oxygen by nasal cannula. Clinically improving. Continues to be in negative fluid balance. Continues to have significant edema lower extremities bilaterally. Acute COVID infection. She has had previous COVID infection and she has received original vaccination x2 Chronic hypoxic respiratory failure, maintained on 5 L of oxygen on outpatient basis Severe pulmonary hypertension, group 2 History of obstructive sleep apnea with BIPAP 18/14 cm H20, the patient has a AirFit N20 nasal mask which she is utilizing for now Obesity, with a BMI of 46.13 kg/m History of valvular heart disease with previous aortic valve replacement, mitral valve replacement, and tricuspid valve repair, performed at the [facility] May, Dual-chamber pacemaker insertion, paced rhythm Paroxysmal A-fib maintained on anticoagulation with Eliquis Coronary artery disease with previous coronary stenting Diabetes mellitus, insulin-dependent Hypothyroidism Hyperlipidemia Hypertension Chronic anemia, hemoglobin stable at 8.2 g/dL Chronic metabolic alkalosis Recommendation: Continue diuretics Continue oxygen and titrate accordingly Continue home BiPAP as needed Close monitoring of renal profile and adjust diuretics accordingly Continue Decadron, try to complete 10-day course and then stop it Continue insulin Monitor daily electrolytes and renal profile Repeat chest x-ray consider left-sided thoracentesis if no improvement in pleural effusion Not quite ready for discharge remains quite ill and she has multiple comorbidities as noted above. Will continue to follow Time with Patient: Less than 30
[2025-02-22 20:22] LABS: Glucose,Whole Blood 316 mg/dL (70-110)
[2025-02-22] MEDS: INSULIN GLARGINE (LANTUS) 100 UNIT/ML SYR SQ SCH (20:57)
--- NOTE | 2025-02-23 05:49 | P.PN ---
Subjective Progress Note Date: 02/22/25 This is a 80-year-old female who was recently admitted with increasing shortness of breath secondary to CHF as well as COPD and also noted to have COVID-19 infection being closely monitored with multiple consultations following. Patient is noted to have pleural effusions and pulmonary vascular congestion noted on recent chest x-ray is maintained on Lasix with increased dose. Patient is using CPAP and supplemental oxygen at 5 L. Patient kidney functions mildly elevated and being closely monitored again with nephrology following. Will follow-up on repeat labs and also monitor hemoglobin. Hemoglobin has been stable with no active bleeding noted. Hematology following for chronic anemia. Patient is afebrile continues to report shortness of breath with no worsening and is weak but reports has been getting up to the bathroom and back. Patient plans on going home on discharge. 02/22/2025 Patient is seen in follow-up with multiple consultations following has transition to oral Lasix as kidney functions show a creatinine of 1.7 and diuresing well with cardiology, pulmonary, infectious disease following. Patient continues on dexamethasone with elevated blood sugars and adjusting insulins accordingly. Patient was also noted to have COVID-19 pneumonia and left pleural effusion. Repeat chest x-ray ordered for a.m. and instructed patient to continue using incentive spirometer at least 10 times every hour while awake. Review of systems: Constitutional: No reports of fatigue, fever, or chills Cardiovascular: No reports of chest pain or palpitations Respiratory: reports of shortness of breath and continued congested cough GI: No reports of nausea, no reports of vomiting, no diarrhea : No reports of dysuria or retention Neurovascular: reports of generalized weakness All medications have been reviewed PHYSICAL EXAMINATION: GENERAL: The patient is alert and oriented x4, Well developed, well nourished. Elderly appearing, morbidly obese HEENT: Pupils are round and equally reacting to light. EOMI. no scleral icterus. No conjunctival pallor. Normocephalic, atraumatic. No pharyngeal erythema. No thyromegaly. CARDIOVASCULAR: S1 and S2 muffled PULMONARY: diminished breath sounds bilaterally with no wheezing and a few scattered rhonchi noted. ABDOMEN: soft. Nontender on exam. obese. non-distended, normoactive bowel sounds. No palpable organomegaly. MUSCULOSKELETAL: No joint swelling or deformity. EXTREMITIES: No cyanosis, clubbing, or pedal edema. NEUROLOGICAL: Gross neurological examination did not reveal any focal deficits. Diffuse weakness SKIN: No rashes. Assessment: Shortness of breath, possibly multifactorial including congestive heart failure with acute exacerbation as well as COPD acute exacerbation Acute COVID-19 pneumonia, bilateral with acute COVID-19 infection Paroxysmal atrial fibrillation history Left pleural effusion, continuing diuresis Diabetes mellitus, type II, uncontrolled with hyperglycemia, likely steroid effect Morbid obesity with a BMI of 45.6 History of chronic anemia, receives iron infusions outpatient with hematology GI prophylaxis DVT prophylaxis no code Plan: Recommend to continue with current medications and management with multiple consultations following Patient is using her CPAP and maintained on chronic 4 to 5 L via nasal cannula Repeat chest x-ray ordered for a.m. with pulmonary following and will discuss if patient is requiring thoracentesis or stable for discharge Continue with breathing treatments and supportive care Patient is on dexamethasone and also vitamin supplementation for COVID Continue monitoring Accu-Cheks AC and at bedtime and adjust insulins accordingly as patient's blood sugars have been elevated Encouraged increase activity as tolerated Due to multiple complex medical issues, overall prognosis is guarded Possible discharge planning in the next 24 to 48 hours The impression and plan of care has been dictated by Deloris Roger, nurse practitioner as directed. Dr. Madan MD I have performed a history and examination and MDM of this patient, discussed the same with the dictator, and agree with the dictator's assessment and plan as written ,documented as a scribe. Based on total visit time, I have performed more than 50% of the visit. Any additional findings or plans will be noted. Objective - Vital Signs Vital signs: Vital Signs Temp 97.4 F L 02/22/25 08:30 Pulse 62 02/22/25 11:59 Resp 17 02/22/25 11:59 BP 104/54 02/22/25 11:59 Pulse Ox 100 02/22/25 11:59 FiO2 Intake & Output 02/21/25 02/22/25 02/22/25 18:59 06:59 18:59 Intake Total 364 240 Output Total 700 0 Balance -336 0 240 Weight 109.3 kg Intake: IV 10 Invasive Line 2 10 Oral 354 240 Output: Urine 700 0 Other: Voiding Method Toilet Toilet Toilet External Catheter External Catheter External Catheter # Voids 0 3 - Labs CBC & Chem 7: 02/22/25 06:18 02/22/25 06:18 Labs: Abnormal Lab Results - Last 24 Hours (Table) 02/21/25 02/21/25 02/22/25 Range/Units 16:07 20:10 03:09 RBC (3.80-5.40) m/uL Hgb (11.4-16.0) gm/dL Hct (34.0-46.0) % MCHC (31.0-37.0) g/dL RDW (11.5-15.5) % Sodium (137-145) mmol/L Chloride (98-107) mmol/L Carbon Dioxide (22-30) mmol/L BUN (7-17) mg/dL Creatinine (0.52-1.04) mg/dL Glucose (74-99) mg/dL POC Glucose (mg/dL) 164 H 158 H 117 H (70-110) mg/dL 02/22/25 02/22/25 02/22/25 Range/Units 06:18 06:18 08:41 RBC 3.06 L (3.80-5.40) m/uL Hgb 9.0 L (11.4-16.0) gm/dL Hct 30.3 L (34.0-46.0) % MCHC 29.6 L (31.0-37.0) g/dL RDW 16.3 H (11.5-15.5) % Sodium 135 L (137-145) mmol/L Chloride 92 L (98-107) mmol/L Carbon Dioxide 38 H (22-30) mmol/L BUN 48 H (7-17) mg/dL Creatinine 1.70 H (0.52-1.04) mg/dL Glucose 58 L (74-99) mg/dL POC Glucose (mg/dL) 67 L (70-110) mg/dL 02/22/25 02/22/25 Range/Units 09:39 11:24 RBC (3.80-5.40) m/uL Hgb (11.4-16.0) gm/dL Hct (34.0-46.0) % MCHC (31.0-37.0) g/dL RDW (11.5-15.5) % Sodium (137-145) mmol/L Chloride (98-107) mmol/L Carbon Dioxide (22-30) mmol/L BUN (7-17) mg/dL Creatinine (0.52-1.04) mg/dL Glucose (74-99) mg/dL POC Glucose (mg/dL) 120 H 188 H (70-110) mg/dL
[2025-02-23 05:50] LABS: Glucose,Whole Blood 324 mg/dL (70-110)
[2025-02-23 06:42] LABS: Eosinophils # (A) 0.01 10*3/uL (0.04-0.35); Eosinophils % (A) 0.2 %; HCT 28.4 % (37.2-46.3); HGB 8.8 g/dL (12.0-15.0); Lymphocytes # (A) 0.69 10*3/uL (0.90-5.00); Lymphocytes % (A) 13.5 %; MCV 96.9 fL (80.0-97.0); Mean Platelet Volume 9.5 fL (9.5-12.2); Monocytes # (A) 0.43 10*3/uL (0.20-1.00); Monocytes % (A) 8.4 %; Neutrophils # (A) 3.96 10*3/uL (1.80-7.70); Neutrophils % (A) 77.3 %; Platelet Count 146 10*3/uL (140-440); RBC 2.93 10*6/uL (4.10-5.20); RDW 15.8 % (11.5-14.5); WBC 5.12 10*3/uL (4.50-10.00)
[2025-02-23 06:59] LABS: African American GFR (CKD) 32 (>60 ml/min/1.73 sqM); Anion Gap 7 mmol/L; Blood Urea Nitrogen 47 mg/dL (7-17); Calcium 8.7 mg/dL (8.4-10.2); Carbon Dioxide 36 mmol/L (22-30); Chloride 91 mmol/L (98-107); Glucose 292 mg/dL (74-99); Non-African American GFR(CKD) 28 (>60 ml/min/1.73 sqM); Potassium 4.1 mmol/L (3.5-5.1); Sodium 134 mmol/L (137-145)
[2025-02-23 07:42] VITALS: PULSE 62; TEMP 98.1
--- NOTE | 2025-02-23 08:11 | XR ---
EXAMINATION TYPE: XR chest 1V portable DATE OF EXAM: 02/23/2025 CLINICAL INDICATION: Female, 80 years old with history of Pleural effusion, progress study. TECHNIQUE: Single AP portable upright view of the chest is obtained. COMPARISON: Chest x-ray from 4 days earlier FINDINGS: Overlying sternal wires along with metallic aortic valve are redemonstrated. Persistent cardiomegaly with dual lead pacemaker. Persistent left basilar opacity. Developing medial right upper lung opacity. Osseous structures are intact. IMPRESSION: Persistent cardiomegaly with left basilar acute infiltrate and/or atelectasis and small l eft pleural effusion is redemonstrated. New Medial right upper lung acute infiltrate and/or edema not ed. [facility], , 02/23/2025 8:09 AM
[2025-02-23 11:47] LABS: Glucose,Whole Blood 193 mg/dL (70-110)
[2025-02-23 11:58] VITALS: BP 116/61
[2025-02-23 13:52] VITALS: BMI 42.7
--- NOTE | 2025-02-23 15:00 | P.PN ---
Subjective Progress Note Date: 02/23/25 Principal diagnosis: Acute on chronic hypoxic respiratory failure with acute COVID-19 infection and acute systolic congestive heart failure his is a 80-year-old female with past medical history significant for valvular heart disease with previous extensive open heart procedure at [facility] done May,. She also has past medical history significant for coronary artery disease with previous PCI/stent, dual-chamber pacemaker, paroxysmal atrial fibrillation, diabetes mellitus, hypothyroidism, hypertension, hyperlipidemia, obstructive sleep apnea with home CPAP. She has had recent multiple admissions here mostly for congestive heart failure. Most recently discharged home on 02/05/2025. She presented back to the emergency room again on 02/13/2025 with complaints of increasing shortness of breath. Her daughter was sick and was tested positive for COVID and the patient tested positive yesterday and felt the need to come to the emergency room. Chest x-ray reveals evidence of congestive heart failure with pulmonary venous congestion and scattered infiltrates. Small effusions. White count globin 8.2. Platelets 176. Sodium 134. Potassium 4.2. Bicarb 40. BUN 36. Creatinine 1.20. Glucose 247. Troponin 0.043, 0.030, 0.046. proBNP 4390. Viral screen positive for COVID. She is seen in consultation in the emergency department. She is currently res ting on a stretcher currently wearing her home CPAP device with 5 L of oxygen bled in. Maintaining O2 saturations in the mid 90s. Afebrile. Hemodynamically stable. Breathing a bit easier today compared to yesterday. On today's evaluation of 02/15/2025, the patient is being seen for a follow-up. The patient was hospitalized for an acute decompensated heart failure and an acute COVID-19 infection. This morning, the patient is still in the emergency. She is calm and comfortable. She is utilizing on BiPAP machine from home which is set at a pressure of 18 over 14 cm of water. She is able to tolerate the BiPAP therapy without any major difficulties. She continues to have a congested cough. Noted her COVID-19 infection exacerbated his CHF. The patient had increased pulm vessel congestion and cardiomegaly and the patient is currently being subjected to diuretics. The patient is currently on Lasix 40 mg IV every 12 hours and Zaroxolyn 2.5 mg p.o. daily and Aldactone 12.5 mg p.o. daily. She remains on metoprolol 25 mg at bedtime and 50 mg in the morning. She remains on multiple anticoagulation with Eliquis. The patient was also started on Decadron regarding her COVID-19 infection. She has an extensive cardiac history including coronary disease, previous PCI and stenting, dual-chamber pacemaker insertion and paroxysmal A-fib. She is also known to have diabetes mellitus type 2, hypertension, hypothyroidism, hyperlipidemia in addition to obstructive sleep apnea maintained on BiPAP therapy on outpatient basis. Labs were reviewed. The white cell count of 3.9, hemoglobin 9 and a platelet count of 197. BUN is 33 with a creatinine of 1.24 and a sodium levels at 135 and a potassium level is at 3.5. Her troponin was at 0.046 max. She is free of any chest pain. proBNP level was 4390. On 02/16/2025, the patient is being seen for a follow-up with the patient is feeli ng better compared to yesterday. She seems to be less bronchospastic and wheezy and less congested. The patient is utilizing her BiPAP from home. She remains in the negative fluid balance as the patient is being diuresed with IV Lasix 40 mg IV every 12 hours. The patient is also on Decadron 6 mg IV every 24 hours regarding her acute COVID-19 infection. She remains on Aldactone 12.5 mg p.o. daily. Rest of the medications are unchanged. She remains on anticoagulation with Eliquis 5 mg p.o. twice a day. The white cell count is at 4 with a hemoglobin of 8.7 and a platelet count of 184. BUN 30 with a creatinine of 1.1 and a sodium levels at 134. No other significant events overnight. Blood sugar is slightly elevated. The patient was given Lantus insulin 20 units along with NovoLog 40 units 3 times daily with meals. She will be placed also on sliding scale coverage. She is on Farxiga 10 mg p.o. daily. On today's evaluation of 02/17/2025, the patient continues to have some cough and congestion and limited bronchospasm wheezing. Noted the patient has an acute CHF exacerbation in addition to an acute COVID-19 infection. She remains on Decadron 6 mg IV every 24 hours. She remains on Lasix 40 mg IV every 12 hours. Remains on Zaroxolyn. Remains on Aldactone. Fluid balance is still negative and the patient is -650 cc over the past 24 hours. BUN 36 with a creatinine of 1.2 and the patient's creatinine remains essentially stable and sodium levels at 137 with a potassium level of 4 and a serum bicarb of 43. No fever. No chills. No nausea or emesis and the patient remains on 5 L of oxygen by nasal cannula with pulse ox of 99%. He is also utilizing her BiPAP which is at the bedside at a pressure of 18/14 cm of water. Rest of the medications are essentially unchan ged. The patient is on Lantus insulin. The patient is on insulin/scale coverage. Remains on anticoagulation with Eliquis. Remains on Farxiga. Remains on losartan. 02/18/2025, patient is feeling better. Continues to have some congested cough. Fluid balance is -620 cc and the patient remains on Decadron for COVID-19 infection. The patient remains on Lasix 20 mg IV every 12 hours. She is also on Zaroxolyn 5 mg p.o. daily basis. Remains on anticoagulation with Eliquis. No chest pain. Trace lower extremity edema. Blood work shows a white cell count of 4 with a hemoglobin 8.7. BUN 39 with a creatinine of 1.4 and a sodium levels at 137 and a potassium level is at 3.9. Awake and alert. Rest of the medications remain unchanged. Oxygenation remained stable and the patient is currently on 5 L of O2 nasal cannula. She is also utilizing BiPAP on and off during the day. 02/19/2025, the patient is being seen for a follow-up. No new complaints. Hemodynamically stable. Continues to have edema lower extremities bilaterally. Fluid balance is -2.4 L over the past 24 hours and the patient continues to be on Lasix 40 mg IV every 12 hours. She remains on Decadron. She remains on ant icoagulation with Eliquis. Blood sugars are being controlled with Lantus 30 units twice daily. Remains on tiotropium 1 puff a day and Ventolin 4 times a day. White cell count of 4.6, hemoglobin 8.4 and platelet count of 180. BUN 35 with a creatinine 1.4 and sodium levels at 135 and a potassium level is 3.9. Serum bicarb is at 40. No other significant events overnight. Sitting up in a chair. Calm and comfortable. Family is at the bedside. She is currently on 5 L of oxygen by nasal cannula with pulse ox of 99%. Utilizing her own BiPAP machine from home. On 02/20/2025, the patient is sitting up in a chair. Calm and comfortable. Denies having any specific complaints. She continues to produce adequate amount of urine output. Fluid balance is -3.7 L over the past 24 hours. She reports improvement in lower extremity edema. Cough and congestion still present although improving. BUN 35 creatinine 1.4. Sodium of 136 and a potassium level is at 3.7. White cell count of 5.2 with a hemoglobin of 8.8. Remains on Decadron 6 mg IV every 24 hours. Remains on Lasix 40 mg IV every 12 hours. Remains on anticoagulation with Eliquis. Rest of the medications are essentially unchanged. No new complaints otherwise known for now. Continues to utilize the BiPAP overnight. 02/21/2025, the patient is being seen for a follow-up. She is sitting up in a chair and she remains on 5 L of oxygen by nasal cannula. She is still receiving IV Lasix 40 mg every 12 hours. Fluid balance is -1.2 L over the past 24 hours. Continues to have some congested cough. The white cell count of 5.7, hemoglobin 8.7 and platelet count of 173. BUN 39 with a creatinine of 1.4 and a sodium levels at 136. She remains on Decadron to complete a 10-day course. She remains on diuretics. She remains on anticoagulation with Eliquis. Rest of the medications are unchanged. She is also on Zaroxolyn 5 mg p.o. daily. Metoprolol 50 mg the morning and 25 mg in the evening for rate control regarding her atrial fibrillation. Seen today on 02/22/2025 Remains marginal at best, remains on 5 L nasal cannula, still receiving diuretics, she had a negative fluid balance, patient remains on diuretics remains on bronchodilators, she is also anticoagulated, and she is on metoprolol. CBC is relatively normal except for low hemoglobin of 9 electrolytes are normal BUN however is 48 creatinine 1.70, has been gradually rising with diuretics. Ultrasound chest did show evidence of a left pleural effusion 9.6 cm pocket, however the patient was responding well to diuretics, and I chose not to do thoracentesis unless the pleural effusion does not improve with medical therapy. Patient was seen today on 02/23/2025, remains on 5 L nasal cannula, O2 saturation is in the high 90s, remains on diuretics and bronchodilators and she is anticoagulated. Patient is feeling better, she has intermittent episodes of shortness of breath but overall she is improving. WBC count is 5.1 hemoglobin 8.8 electrolytes are normal BUN is 47 creatinine 1.71, relatively unchanged compared to creatinine done yesterday. Chest x-ray today continues to show left lower lobe atelectasis, and small left pleural effusion.. The effusion is not large enough to consider thoracentesis, patient has been improving with diuretics all along, and I have no plans to perform thoracentesis on this patient. Objective - Vital Signs Vital signs: Vital Signs Temp 98.1 F 02/23/25 07:41 Pulse 62 02/23/25 11:56 Resp 17 02/23/25 11:56 BP 116/61 02/23/25 11:56 Pulse Ox 100 02/23/25 11:56 FiO2 Intake & Output 02/22/25 02/23/25 02/23/25 18:59 06:59 18:59 Intake Total 240 Output Total 475 Balance 240 -475 Weight 109.3 kg 109.3 kg Intake: Oral 240 Output: Urine 475 Other: Voiding Method Toilet Toilet Toilet External Catheter External Catheter # Voids 3 2 - Exam GENERAL EXAM: Revealed a 80-year-old female on 5 L nasal cannula, off BiPAP, in no distress, patient is on home O2 at 5 L/min HEAD: Normocephalic. EYES: Normal reaction of pupils, equal size. NOSE: Clear with pink turbinates. THROAT: No erythema or exudates. NECK: No masses, no JVD. CHEST: No chest wall deformity. LUNGS: Equal air entry with crackles mostly over the left base CVS: S1 and S2 normal with an audible murmur, paced rhythm. ABDOMEN: No hepatosplenomegaly, normal bowel sounds, no guarding or rigidity. SKIN: No rashes CENTRAL NERVOUS SYSTEM: No focal deficits, tone is normal in all 4 extremities. EXTREMITIES: There is 1-2+ peripheral edema. No clubbing, no cyanosis. P eripheral pulses are intact. - Labs CBC & Chem 7: 02/23/25 06:00 02/23/25 06:00 Labs: Abnormal Lab Results - Last 24 Hours (Table) 02/22/25 02/22/25 02/23/25 Range/Units 16:09 20:20 05:48 RBC (4.10-5.20) 10*6/uL Hgb (12.0-15.0) g/dL Hct (37.2-46.3) % MCHC (32.0-37.0) g/dL Lymphocytes # (0.90-5.00) 10*3/uL Eosinophils # (0.04-0.35) 10*3/uL Sodium (137-145) mmol/L Chloride (98-107) mmol/L Carbon Dioxide (22-30) mmol/L BUN (7-17) mg/dL Creatinine (0.52-1.04) mg/dL Glucose (74-99) mg/dL POC Glucose (mg/dL) 317 H 316 H 324 H (70-110) mg/dL 02/23/25 02/23/25 02/23/25 Range/Units 06:00 06:00 11:45 RBC 2.93 L (4.10-5.20) 10*6/uL Hgb 8.8 L (12.0-15.0) g/dL Hct 28.4 L (37.2-46.3) % MCHC 31.0 L (32.0-37.0) g/dL Lymphocytes # 0.69 L (0.90-5.00) 10*3/uL Eosinophils # 0.01 L (0.04-0.35) 10*3/uL Sodium 134 L (137-145) mmol/L Chloride 91 L (98-107) mmol/L Carbon Dioxide 36 H (22-30) mmol/L BUN 47 H (7-17) mg/dL Creatinine 1.71 H (0.52-1.04) mg/dL Glucose 292 H (74-99) mg/dL POC Glucose (mg/dL) 193 H (70-110) mg/dL Assessment and Plan Assessment: Impression: Acute on chronic hypoxic respiratory failure secondary to acute exacerbation of systolic congestive heart failure and valvular heart disease, echocardiogram from 01/30/2025 showed an EF of 40 to 45% along with severe tricuspid regurgitation. Mildly reduced global LV function. The mitral valve was not adequately visualized. 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 The patient remains on 5 L of oxygen by nasal cannula. Clinically improving. Continues to be in negative fluid balance. Continues to have significant edema lower extremities bilaterally. Acute COVID infection. She has had previous COVID infection and she has received original vaccination x2 Chronic hypoxic respiratory failure, maintained on 5 L of oxygen on outpatient b asis Severe pulmonary hypertension, group 2 History of obstructive sleep apnea with BIPAP 18/14 cm H20, the patient has a AirFit N20 nasal mask which she is utilizing for now Obesity, with a BMI of 46.13 kg/m History of valvular heart disease with previous aortic valve replacement, mitral valve replacement, and tricuspid valve repair, performed at the [facility] May, Dual-chamber pacemaker insertion, paced rhythm Paroxysmal A-fib maintained on anticoagulation with Eliquis Coronary artery disease with previous coronary stenting Diabetes mellitus, insulin-dependent Hypothyroidism Hyperlipidemia Hypertension Chronic anemia, hemoglobin stable at 8.2 g/dL Chronic metabolic alkalosis Recommendation: Continue diuretics Continue oxygen and titrate accordingly, patient is normally on home O2 at 5 L/min Continue home BiPAP as needed Close monitoring of renal profile and adjust diuretics accordingly Continue Decadron, try to complete 10-day course and then stop it Continue insulin Follow-up chest x-ray today was reviewed patient had a small left pleural effusion and left basilar atelectasis Consider discharge planning once cleared by other consultants. Will continue to follow Time with Patient: Less than 30
--- NOTE | 2025-02-23 22:23 | P.PN ---
Subjective Progress Note Date: 02/23/25 Principal diagnosis: Reason for follow-up is COVID-19 Patient is a 80-year-old female with a past medical history significant for atrial Fibrillation, Diabetes Mellitus, Hearing Disorder / Deafness, Hyperlipidemia, Osteoarthritis (OA), Pneumonia, Sleep Apnea/CPAP/BIPAP , Thyroid Disorder, has been exposed to her daughter who tested positive for COVID-19 about a week ago presented hospital with shortness of breath and cough has been diagnosed with COVID-19 and possible component of CHF exacerbation. On today's evaluation that is 02/23/2025, Patient is afebrile this morning patient denies having any chest pain breathing comfortably still have a cough with sputum production patient is on 5 L nasal cannula oxygen no abdominal pain or diarrhea. Patient white count is 5.12, creatinine is 1.71 Objective - Vital Signs Vital signs: Vital Signs Temp 98.1 F 02/23/25 07:41 Pulse 62 02/23/25 11:56 Resp 17 02/23/25 11:56 BP 116/61 02/23/25 11:56 Pulse Ox 100 02/23/25 11:56 FiO2 Intake & Output 02/22/25 02/23/25 02/23/25 18:59 06:59 18:59 Intake Total 240 Output Total 475 Balance 240 -475 Weight 109.3 kg 109.3 kg Intake: Oral 240 Output: Urine 475 Other: Voiding Method Toilet Toilet Toilet External Catheter External Catheter # Voids 3 2 - Exam GENERAL DESCRIPTION: An elderly female up in bed in no distress RESPIRATORY SYSTEM: Unlabored breathing crackles Bilaterally HEART: S1 S2 regular rate and rhythm , ABDOMEN: Soft , no tenderness EXTREMITIES: Trace edema feet - Labs CBC & Chem 7: 02/23/25 06:00 02/23/25 06:00 Labs: Abnormal Lab Results - Last 24 Hours (Table) 02/22/25 02/22/25 02/23/25 Range/Units 16:09 20:20 05:48 RBC (4.10-5.20) 10*6/uL Hgb (12.0-15.0) g/dL Hct (37.2-46.3) % MCHC (32.0-37.0) g/dL Lymphocytes # (0.90-5.00) 10*3/uL Eosinophils # (0.04-0.35) 10*3/uL Sodium (137-145) mmol/L Chloride (98-107) mmol/L Carbon Dioxide (22-30) mmol/L BUN (7-17) mg/dL Creatinine (0.52-1.04) mg/dL Glucose (74-99) mg/dL POC Glucose (mg/dL) 317 H 316 H 324 H (70-110) mg/dL 02/23/25 02/23/25 02/23/25 Range/Units 06:00 06:00 11:45 RBC 2.93 L (4.10-5.20) 10*6/uL Hgb 8.8 L (12.0-15.0) g/dL Hct 28.4 L (37.2-46.3) % MCHC 31.0 L (32.0-37.0) g/dL Lymphocytes # 0.69 L (0.90-5.00) 10*3/uL Eosinophils # 0.01 L (0.04-0.35) 10*3/uL Sodium 134 L (137-145) mmol/L Chloride 91 L (98-107) mmol/L Carbon Dioxide 36 H (22-30) mmol/L BUN 47 H (7-17) mg/dL Creatinine 1.71 H (0.52-1.04) mg/dL Glucose 292 H (74-99) mg/dL POC Glucose (mg/dL) 193 H (70-110) mg/dL Assessment and Plan (1) Coronavirus infection Current Visit: Yes Status: Acute Code(s): B34.2 - CORONAVIRUS INFECTION, UNSPECIFIED SNOMED Code(s): 064847002 Plan: 1patient presented to hospital with increasing shortness of breath and cough which is likely multifactorial more likely related to fluid overload she also tested positive for COVID-19 however the patient is currently not running any fever and is on 5 L nasal cannula oxygen which is baseline for her and no need for any worsening oxygen requirement 2-patient remains to be afebrile and white count normal 3patient has shown clinical improvement and continue dexamethasone zinc ascorbic acid Eliquis and continue with supportive care Dictation was produced using [employer] dictation software. please excuse any g rammatical, word or spelling errors.
--- NOTE | 2025-02-23 22:34 | P.PN ---
Subjective Progress Note Date: 02/23/25 Principal diagnosis: SUZANNA In f/u today pt reports that she is feeling better, still has cough, O2 needs are at baseline. No bleeding to report Objective - Vital Signs Vital signs: Vital Signs Temp 98.1 F 02/23/25 07:41 Pulse 62 02/23/25 11:56 Resp 17 02/23/25 11:56 BP 116/61 02/23/25 11:56 Pulse Ox 100 02/23/25 11:56 FiO2 Intake & Output 02/22/25 02/23/25 02/23/25 18:59 06:59 18:59 Intake Total 240 Output Total 475 Balance 240 -475 Weight 109.3 kg Intake: Oral 240 Output: Urine 475 Other: Voiding Method Toilet Toilet Toilet External Catheter External Catheter # Voids 3 - Exam WD,WN, NAD, A&Ox3, resp unlabored at rest, pt is sitting up in chair, good color, able to carry on conversation - Labs CBC & Chem 7: 02/23/25 06:00 02/23/25 06:00 Labs: Abnormal Lab Results - Last 24 Hours (Table) 02/22/25 02/22/25 02/23/25 Range/Units 16:09 20:20 05:48 RBC (4.10-5.20) 10*6/uL Hgb (12.0-15.0) g/dL Hct (37.2-46.3) % MCHC (32.0-37.0) g/dL Lymphocytes # (0.90-5.00) 10*3/uL Eosinophils # (0.04-0.35) 10*3/uL Sodium (137-145) mmol/L Chloride (98-107) mmol/L Carbon Dioxide (22-30) mmol/L BUN (7-17) mg/dL Creatinine (0.52-1.04) mg/dL Glucose (74-99) mg/dL POC Glucose (mg/dL) 317 H 316 H 324 H (70-110) mg/dL 02/23/25 02/23/25 02/23/25 Range/Units 06:00 06:00 11:45 RBC 2.93 L (4.10-5.20) 10*6/uL Hgb 8.8 L (12.0-15.0) g/dL Hct 28.4 L (37.2-46.3) % MCHC 31.0 L (32.0-37.0) g/dL Lymphocytes # 0.69 L (0.90-5.00) 10*3/uL Eosinophils # 0.01 L (0.04-0.35) 10*3/uL Sodium 134 L (137-145) mmol/L Chloride 91 L (98-107) mmol/L Carbon Dioxide 36 H (22-30) mmol/L BUN 47 H (7-17) mg/dL Creatinine 1.71 H (0.52-1.04) mg/dL Glucose 292 H (74-99) mg/dL POC Glucose (mg/dL) 193 H (70-110) mg/dL Assessment and Plan (1) Iron deficiency anemia Status: Chronic Priority: Medium Code(s): D50.9 - IRON DEFICIENCY ANEMIA, UN SPECIFIED SNOMED Code(s): 04865797 Plan: SUZANNA -Chronic, felt to be 2/2 chronic small volume blood loss form AVMs exacerbated by anticoagulation and antiplatelet therapy for a-fib, cardiovascular stents. Also, likely a component of CKD. -Baseline Hgb 8-9 range, Hgb 8.8 today, stable -Plans to continue IV iron outpt once recovered from covid infection. -Pending adequate iron supplementation before considering the addition of WENDY. -Pt follows with Dr. Duenas, cont the same
--- NOTE | 2025-02-24 07:00 | P.PN ---
Subjective Progress Note Date: 02/23/25 HISTORY OF PRESENT ILLNESS: The patient is a 80-year-old female patient who is known to our service from before with extensive cardiac history consistent of valvular heart disease status post aortic valve replacement and mitral valve replacement and tricuspid valve repair in May [address] [facility] as well as history of heart failure as well as cardiomyopathy and also diabetes and hypertension and dyslipidemia and chronic kidney disease and chronic anemia secondary to iron deficiency anemia and permanent pacemaker and permanent atrial fibrillation. The patient was seen by our service earlier this month after she was admitted with heart failure and she was discharged on oral diuretics and according to her she has been compliant with it. She presented back to the hospital not feeling well experiencing progressive exertional dyspnea associated with cough and congestions and fever as well and also bilateral lower extremities edema. No pain in the chest or dizziness or lightheadedness or any feeling of heart racing or fluttering or presyncope or syncope which she stated that she has been compliant with the current medical regimen including the current dose of oral diuretics. She stated that also she has been compliant with low-sodium diet. She underwent further evaluation including COVID test came in to be abnormal and also she underwent a chest x-ray showed finding consistent with heart failure as well as NT proBNP came to be around 4000. Hemoglobin came to be around 8 which is her baseline. Kidney function is at baseline as well. The EKG showed underlying atrial fibrillation with ventricular paced rhythm. She underwent an echo in January 2024 showed mildly impaired LV function with overall normally functioning aortic and mitral prosthesis. When she presented to the hospital she was hypoxic requiring oxygen. The physical examination is remarkable for extensive bilateral expiratory wheezing with a distant heart sounds and bilateral lower extremities pitting edema noted as well 02/15/2025 Patient continues to have shortness of breath, still appears volume overloaded 1-2+ pitting edema bilateral extremity, crackles and wheezing and mild rhonchi audible in bilateral lung castillo Elevated JVP 02/16/2025 BP 160/65, heart rate 65 bpm, Telemetry shows underlying rhythm being atrial fibrillation with V paced rhythm Hemoglobin 8.7, BUN 30, creatinine 1.17, 02/17/2025 Patient examined this morning at the bedside. Patient continues to report shortness of breath. She has a frequent cough noted. She remains on IV diuretics. BUN 36. Creatinine 1.23. 02/18/2025 Patient examined this morning at the bedside. Patient's daughter is present. Patient currently denies chest pain or pressure. She continues to report shortness of breath with a frequent cough. Creatinine today 1.41. CO2 41. Patient's daughter states she was up to the chair yesterday for most of the day. 02/19/2025 Patient examined this morning at the bedside. Patient currently denies chest pain or pressure. Patient continues to report mild shortness of breath with frequent coughing. Vital signs are stable. CO2 40. BUN 35. Creatinine 1.46. 02/20/2025 BP 120/73, heart rate 60 reviewed failure Still appears volume overloaded 02/21/2025 BP 109/55, heart rate 60 bpm Kidney function is stable, still appears volume overloaded with crackles audible in bilateral lung castillo 02/22 Patient is seen and examined. Patient states she is feeling better. She still has a cough and still having wheezing. Blood pressure was on the low side last evening and Lasix and beta-kevin were held. Blood pressure at that time was 80/30 and now 97/59. Creatinine also went up. She has been maintained on IV Lasix 40 mg every 12 hours. Heart rate is running in the 60s, pulse ox 100% on 5 L nasal cannula. Patient is on CPAP during the night. Repeat blood work is hemoglobin 9, BUN 48 and creatinine 1.7, potassium 3.8. 02/23 Patient seen and examined. Patient states that her breathing is better and she feels better in general. She feels stronger. She states that she slept well last night. Blood pressure readings are improved. She has minimal lower extremity edema. Blood pressure 116/61, heart rate 62, pulse ox 100% on 5 L nasal cannula. Repeat blood work reveals hemoglobin 8.8, BUN 47, creatinine 1.71, sodium 134 and potassium 4.1. Yesterday IV Lasix was transitioned to oral and metolazone was decreased. PHYSICAL EXAM: VITAL SIGNS: Reviewed. GENERAL: Well-developed in no acute distress. NECK: Supple. No JVD or thyromegaly LUNGS: Respirations even and unlabored. Lungs with bilateral wheezing. Frequent coughing noted. HEART: Regular rate and rhythm. S1 and S2 heard. EXTREMITIES: Normal range of motion. No clubbing or cyanosis. Peripheral pulses intact. Minimal edema bilateral legs ASSESSMENT: Acute COVID-19 Acute on chronic heart failure with reduced EF, 40 to 45% Severe pulmonary hypertension Paroxysmal atrial fibrillation History of permanent pacemaker implantation, [facility], 2018 History of aortic valve replacement, mitral valve replacement, and tricuspid valve repair, May [address] [facility] Coronary artery disease with previous stenting Chronic anemia with previous workup for GI bleed, both EGD and colonoscopy negative for source Hypertension Hyperlipidemia Diabetes Morbid obesity: BMI 45.7 PLAN: Continue current cardiac medications including Eliquis, Lipitor, Farxiga, losartan, and metoprolol Aldactone discontinued 02/18/2025 due to low GFR at baseline Continue Lasix oral 40 mg twice daily Continue decreased metolazone to 2.5 mg daily Monitor Daily weights, intake and output, electrolytes and kidney function Further recommendations pending patient course Patient to follow-up postdischarge with Dr. Watson. Nurse practitioner note has been reviewed, I agree with documented findings and plan of care. Patient was seen and examined. Objective - Vital Signs Vital signs: Vital Signs Temp 98.1 F 02/23/25 07:41 Pulse 62 02/23/25 07:41 Resp 17 02/23/25 07:41 BP 104/50 02/23/25 07:41 Pulse Ox 99 02/23/25 07:41 FiO2 Intake & Output 02/22/25 02/23/25 02/23/25 18:59 06:59 18:59 Intake Total 240 Output Total 475 Balance 240 -475 Weight 109.3 kg Intake: Oral 240 Output: Urine 475 Other: Voiding Method Toilet Toilet External Catheter External Catheter # Voids 3 - Labs CBC & Chem 7: 02/23/25 06:00 02/23/25 06:00 Labs: Abnormal Lab Results - Last 24 Hours (Table) 02/22/25 02/22/25 02/22/25 Range/Units 09:39 11:24 16:09 RBC (4.10-5.20) 10*6/uL Hgb (12.0-15.0) g/dL Hct (37.2-46.3) % MCHC (32.0-37.0) g/dL Lymphocytes # (0.90-5.00) 10*3/uL Eosinophils # (0.04-0.35) 10*3/uL Sodium (137-145) mmol/L Chloride (98-107) mmol/L Carbon Dioxide (22-30) mmol/L BUN (7-17) mg/dL Creatinine (0.52-1.04) mg/dL Glucose (74-99) mg/dL POC Glucose (mg/dL) 120 H 188 H 317 H (70-110) mg/dL 02/22/25 02/23/25 02/23/25 Range/Units 20:20 05:48 06:00 RBC (4.10-5.20) 10*6/uL Hgb (12.0-15.0) g/dL Hct (37.2-46.3) % MCHC (32.0-37.0) g/dL Lymphocytes # (0.90-5.00) 10*3/uL Eosinophils # (0.04-0.35) 10*3/uL Sodium 134 L (137-145) mmol/L Chloride 91 L (98-107) mmol/L Carbon Dioxide 36 H (22-30) mmol/L BUN 47 H (7-17) mg/dL Creatinine 1.71 H (0.52-1.04) mg/dL Glucose 292 H (74-99) mg/dL POC Glucose (mg/dL) 316 H 324 H (70-110) mg/dL 02/23/25 Range/Units 06:00 RBC 2.93 L (4.10-5.20) 10*6/uL Hgb 8.8 L (12.0-15.0) g/dL Hct 28.4 L (37.2-46.3) % MCHC 31.0 L (32.0-37.0) g/dL Lymphocytes # 0.69 L (0.90-5.00) 10*3/uL Eosinophils # 0.01 L (0.04-0.35) 10*3/uL Sodium (137-145) mmol/L Chloride (98-107) mmol/L Carbon Dioxide (22-30) mmol/L BUN (7-17) mg/dL Creatinine (0.52-1.04) mg/dL Glucose (74-99) mg/dL POC Glucose (mg/dL) (70-110) mg/dL
--- NOTE | 2025-02-24 10:21 | P.DS ---
Providers Date of admission: 02/13/25 17:27 Expected date of discharge: 02/23/25 Attending physician: Maye Hager Consults: 02/13/25 17:27 Consult Physician Routine Consulting Provider: Mehrdad Evans Consult Reason/Comments: copd Do you want consulting provider notified?: Yes Consult Physician Routine Consulting Provider: Caitie Watson Consult Reason/Comments: chf Do you want consulting provider notified?: Yes 02/15/25 14:52 Consult Physician Routine Consulting Provider: Mahin Armendariz Consult Reason/Comments: covid- remdesivir? Do you want consulting provider notified?: Yes 02/16/25 09:57 Consult Physician Routine Consulting Provider: Ricardo Duenas Consult Reason/Comments: iron transfusions outpt. anemia Do you want consulting provider notified?: Yes Primary care physician: Ibrahima Hua MD Hospital Course: Final diagnosis Shortness of breath, possibly multifactorial including congestive heart failure with acute exacerbation as well as COPD acute exacerbation Acute COVID-19 pneumonia, bilateral with acute COVID-19 infection Paroxysmal atrial fibrillation history Left pleural effusion, no plans for thoracentesis at this time Diabetes mellitus, type II, uncontrolled with hyperglycemia, likely steroid effect Morbid obesity with a BMI of 45.6 History of chronic anemia, receives iron infusions outpatient with hematology GI prophylaxis DVT prophylaxis no code Discharge disposition Patient is being discharged in a stable condition with guarded prognosis to home with home care. Patient will follow-up with Dr. Hua in the outpatient setting upon discharge. Patient is to continue with current medications and close outpatient follow-up with pulmonary as well as cardiology as scheduled. Repeat lab prescription provided on discharge to monitor kidney functions and electrolytes. Total time taken is greater than 35 minutes. Hospital course This is a 80-year-old female who was recently admitted with increasing shortness of breath multifactorial being closely monitored with multiple consultations. Patient was recently hospitalized and discharged for CHF exacerbation as well as chronic anemia. Patient returns with continued shortness of breath secondary to COPD as well as CHF also found to be acute COVID-19 positive. Concerns of pneumonia bilaterally and was maintained on antibiotics slowly showing some clinical improvement patient has significant comorbidities making it difficult to stay out of the hospital and has had frequent hospitalizations and readmissions, more frequently this year. Patient does have oxygen and a CPAP outpatient and has been cleared by pulmonary for discharge. Patient needs outpatient follow-up with repeat labs, cardiology, pulmonary, as well as oncology for her chronic anemia. Patient receives IV iron transfusions outpatient. Please refer to other consultation notes for further HPI. Currently no reports of chest pain, shortness of breath, or palpitations. Patient is afebrile. No reports of nausea or vomiting and patient is tolerating diet. Patient will be discharged home today. High risk for readmissions given significant comorbidities Physical exam: Gen: This is a 80-year-old female who is awake, alert and oriented x 3, well- developed, elderly appearing, morbidly obese HEENT: Head is atraumatic, normocephalic. Pupils equal, round. Sclerae is anicteric. NECK: Supple. No JVD. No lymphadenopathy. No thyromegaly. LUNGS: Diminished breath sounds bilaterally with no wheezes and coarse scattered rhonchi. Bronchial congested cough noted no intercostal retractions. HEART: S1, S2 are muffled ABDOMEN: Soft. Obese bowel sounds are present. No masses. No tenderness. EXTREMITIES: Bilateral lower extremity edema, chronic, showing some improvement, no calf tenderness. NEUROLOGICAL: Patient is awake, alert and oriented x3. Cranial nerves 2 through 12 are grossly intact. Diffusely weak Please refer to medication reconciliation sheet for a list of medications. The impression and plan of care has been dictated by Deloris Roger, Nurse Practitioner as directed. Dr. Madan MD I have performed a history and examination and MDM of this patient, discussed the same with the dictator, and agree with the dictator's assessment and plan as written ,documented as a scribe. Based on total visit time, I have performed more than 50% of the visit. Patient Condition at Discharge: Serious Plan - Discharge Summary New Discharge Prescriptions: New dexAMETHasone 4 mg PO DAILY 3 Days #10 tablet Apixaban [Eliquis] 2.5 mg PO BID #60 tab Losartan [Cozaar] 12.5 mg PO DAILY 30 Days #15 tab Furosemide [Lasix] 40 mg PO BID@0900,1600 tab Zinc Sulfate [Orazinc] 220 mg PO DAILY 15 Days #15 cap Ascorbic Acid [Vitamin C] 500 mg PO DAILY #30 tab Cholecalciferol [Vitamin D3 (125 Mcg = 5000 Iu)] 125 mcg PO DAILY #30 tab Continue Levothyroxine Sodium [Levoxyl] 175 mcg PO DAILY Calcium Carbonate [Calcium] 600 mg PO BID Dapagliflozin Propanediol [Farxiga] 10 mg PO DAILY #30 tab Metoprolol Succinate (ER) [Toprol XL] 50 mg PO DAILY tab FLUoxetine HCL [PROzac] 10 mg PO DAILY Insulin Glargine,Hum.rec.anlog [Lantus Solostar Pen] 20 units SQ HS Insulin Aspart [NovoLOG Flexpen] 40 units SQ TID-W/MEALS Atorvastatin [Lipitor] 40 mg PO HS #30 tab Metoprolol Succinate (ER) [Toprol XL] 25 mg PO HS #30 tab Acetaminophen Tab [Tylenol] 650 mg PO Q6HR PRN tab PRN Reason: Fever And/ Or Pain metOLazone [Zaroxolyn] 2.5 mg PO DAILY #30 tab Discontinued Apixaban [Eliquis] 5 mg PO BID #0 Furosemide [Lasix] 40 mg PO DAILY@1600 Furosemide [Lasix] 80 mg PO DAILY #30 tab Discharge Medication List Levothyroxine Sodium [Levoxyl] 175 mcg PO DAILY 10/25/20 [History] FLUoxetine HCL [PROzac] 10 mg PO DAILY 10/08/24 [History] Insulin Aspart [NovoLOG Flexpen] 40 units SQ TID-W/MEALS 10/08/24 [History] Insulin Glargine,Hum.rec.anlog [Lantus Solostar Pen] 20 units SQ HS 10/08/24 [History] Calcium Carbonate [Calcium] 600 mg PO BID 01/28/25 [History] Acetaminophen Tab [Tylenol] 650 mg PO Q6HR PRN tab 02/05/25 [Rx] Atorvastatin [Lipitor] 40 mg PO HS #30 tab 02/05/25 [Rx] Dapagliflozin Propanediol [Farxiga] 10 mg PO DAILY #30 tab 02/05/25 [Rx] Metoprolol Succinate (ER) [Toprol XL] 25 mg PO HS #30 tab 02/05/25 [Rx] Metoprolol Succinate (ER) [Toprol XL] 50 mg PO DAILY tab 02/05/25 [Rx] metOLazone [Zaroxolyn] 2.5 mg PO DAILY #30 tab 02/05/25 [Rx] Apixaban [Eliquis] 2.5 mg PO BID #60 tab 02/23/25 [Rx] Ascorbic Acid [Vitamin C] 500 mg PO DAILY #30 tab 02/23/25 [Rx] Cholecalciferol [Vitamin D3 (125 Mcg = 5000 Iu)] 125 mcg PO DAILY #30 tab 02/23/25 [Rx] Furosemide [Lasix] 40 mg PO BID@0900,1600 tab 02/23/25 [Rx] Losartan [Cozaar] 12.5 mg PO DAILY 30 Days #15 tab 02/23/25 [Rx] Zinc Sulfate [Orazinc] 220 mg PO DAILY 15 Days #15 cap 02/23/25 [Rx] dexAMETHasone 4 mg PO DAILY 3 Days #10 tablet 02/23/25 [Rx] Follow up Appointment(s)/Referral(s): Liana Ledbetter MD [STAFF PHYSICIAN] - 03/31/25 2:00 pm Ricardo Duenas [STAFF PHYSICIAN] - 6 Weeks (Dr. Duenas's ofc will contact pt next week to reschedule her IV iron and make a f/u appt with the MD or SENIOR POLICY ADVISOR at that time ) [facility], [NON-STAFF] - Ibrahima Hua MD [Primary Care Provider] - 02/25/25 11:30 am ([place] location. Please call when you arrive in the parking lot. ) Eber Owens DO [STAFF PHYSICIAN] - 03/08/25 10:15 am Ambulatory/Diagnostic Orders: Basic Metabolic Panel [LAB.AMB] Time Frame: 3 Days, Location: None Selected Patient Instructions/Handouts: Pulmonary Edema (DC), COPD (Chronic Obstructive Pulmonary Disease) (DC), COVID-19 (Coronavirus Disease 2019) (DC) Activity/Diet/Wound Care/Special Instructions: Activity limited until follow-up Follow-up with primary care provider on discharge Follow-up with cardiology outpatient Follow-up with hematology outpatient Follow-up with pulmonary outpatient Continue taking medications as prescribed Continue to wear a mask when out Continue with incentive spirometer use Elevate lower extremities while at rest Follow-up on repeat labs to monitor kidney functions Discharge Disposition: HOME WITH HOME HEALTH SERVICES
== END 2025-02-23 15:45 | disposition home health service (06) | DRG 291 ==
LOC: EC 14:10 → 3SCARD 17:27
PROVIDERS: ADMIT Hospitalist; ATTEND Hospitalist
PROC: 3E0F7SF Introduction of Other Gas into Respiratory Tract, Via Natural or Artificial Opening (ICD-10-PCS; principal; 2025-02-13)
DX: I13.0 Hypertensive heart and chronic kidney disease with heart failure and stage 1 through stage 4 chronic kidney disease, or unspecified chronic kidney disease (principal); I50.23 Acute on chronic systolic (congestive) heart failure; J12.82 Pneumonia due to coronavirus disease 2019; U07.1 COVID-19; J96.21 Acute and chronic respiratory failure with hypoxia; E87.3 Alkalosis; J44.0 Chronic obstructive pulmonary disease with (acute) lower respiratory infection; I27.22 Pulmonary hypertension due to left heart disease; D63.1 Anemia in chronic kidney disease; D72.810 Lymphocytopenia; E66.01 Morbid (severe) obesity due to excess calories; E11.22 Type 2 diabetes mellitus with diabetic chronic kidney disease; E03.9 Hypothyroidism, unspecified; Z95.2 Presence of prosthetic heart valve; N18.9 Chronic kidney disease, unspecified; J44.1 Chronic obstructive pulmonary disease with (acute) exacerbation; Z68.42 Body mass index [BMI] 45.0-49.9, adult; I48.21 Permanent atrial fibrillation; J98.11 Atelectasis; I42.9 Cardiomyopathy, unspecified; I48.0 Paroxysmal atrial fibrillation; E11.65 Type 2 diabetes mellitus with hyperglycemia; Z79.4 Long term (current) use of insulin; Z11.52 Encounter for screening for COVID-19; K55.20 Angiodysplasia of colon without hemorrhage; D50.9 Iron deficiency anemia, unspecified; Z79.890 Hormone replacement therapy; E78.5 Hyperlipidemia, unspecified; G47.33 Obstructive sleep apnea (adult) (pediatric); I25.10 Atherosclerotic heart disease of native coronary artery without angina pectoris; D53.9 Nutritional anemia, unspecified; H91.90 Unspecified hearing loss, unspecified ear; I07.1 Rheumatic tricuspid insufficiency; I25.2 Old myocardial infarction; Z79.01 Long term (current) use of anticoagulants; Z79.84 Long term (current) use of oral hypoglycemic drugs; Z79.899 Other long term (current) drug therapy; Z86.16 Personal history of COVID-19; Z95.0 Presence of cardiac pacemaker; Z96.652 Presence of left artificial knee joint; Z98.51 Tubal ligation status; Z98.42 Cataract extraction status, left eye; Z98.41 Cataract extraction status, right eye; Z95.5 Presence of coronary angioplasty implant and graft; Z88.8 Allergy status to other drugs, medicaments and biological substances
CPT/HCPCS: 36415; 71045; 71046; 71250; 76604; 80048; 80053; 83036; 83605; 83735; 83880; 84145; 84484; 85025; 85379; 85610; 85730; 87636; 93005; 94640; 96374; 96375; 96376; 99291

== ENCOUNTER 2025-03-07 23:20 | Inpatient (IN) | payer MEDICARE ==
[2025-03-07 23:26] LABS: Glucose,Whole Blood 402 mg/dL (70-110)
[2025-03-07] MEDS ORDERED: VANCOMYCIN IV PER PHARMACY 1 EACH MISC MISCELLANE PRN (23:44)
--- NOTE | 2025-03-07 23:48 | ED ---
General Adult HPI - General Chief complaint: Recheck/Abnormal Lab/Rx Stated complaint: weakness Time Seen by Provider: 03/07/25 23:30 Source: EMS Mode of arrival: EMS Limitations: no limitations - History of Present Illness Initial comments: Patient is a 80-year-old female past medical history of mitral valve replacement, atrial fibrillation, CHF, presenting today for generalized weakness. Found to be hyperglycemic and hypotensive by EMS personnel. Recently treated for UTI, currently antibiotics. Recent COVID-19. History no GI bleed. - Related Data Home Medications Medication Instructions Recorded Confirmed Levothyroxine Sodium [Levoxyl] 175 mcg PO DAILY 10/25/20 03/08/25 FLUoxetine HCL [PROzac] 10 mg PO DAILY 10/08/24 03/08/25 Insulin Aspart [NovoLOG Flexpen] 40 units SQ TID-W/MEALS 10/08/24 03/08/25 Insulin Glargine,Hum.rec.anlog 20 units SQ HS 10/08/24 03/08/25 [Lantus Solostar Pen] Calcium Carbonate [Calcium] 600 mg PO BID 01/28/25 03/08/25 Apixaban [Eliquis] 5 mg PO BID 03/08/25 03/08/25 Previous Rx's Medication Instructions Recorded Acetaminophen Tab [Tylenol] 650 mg PO Q6HR PRN tab 02/05/25 Atorvastatin [Lipitor] 40 mg PO HS #30 tab 02/05/25 Dapagliflozin Propanediol [Farxiga] 10 mg PO DAILY #30 tab 02/05/25 Metoprolol Succinate (ER) [Toprol 25 mg PO HS #30 tab 02/05/25 XL] Metoprolol Succinate (ER) [Toprol 50 mg PO DAILY tab 02/05/25 XL] metOLazone [Zaroxolyn] 2.5 mg PO DAILY #30 tab 02/05/25 Ascorbic Acid [Vitamin C] 500 mg PO DAILY #30 tab 02/23/25 Cholecalciferol [Vitamin D3 (125 125 mcg PO DAILY #30 tab 02/23/25 Mcg = 5000 Iu)] Furosemide [Lasix] 40 mg PO BID@0900,1600 tab 02/23/25 Losartan [Cozaar] 12.5 mg PO DAILY 30 Days #15 tab 02/23/25 Zinc Sulfate [Orazinc] 220 mg PO DAILY 15 Days #15 cap 02/23/25 Allergies Allergy/AdvReac Type Severity Reaction Status Date / Time nitrofurantoin Allergy Rash/Hives Verified 03/08/25 11:42 macrocrystalline [From Macrodantin] phenazopyridine HCl Allergy Rash/Hives Verified 03/08/25 11:42 [From Pyridium] Review of Systems ROS Statement: Those systems with pertinent positive or pertinent negative responses have been documented in the HPI. ROS Other: All systems not noted in ROS Statement are negative. Past Medical History Past Medical History: Atrial Fibrillation, Diabetes Mellitus, Hearing Disorder / Deafness, Hyperlipidemia, Osteoarthritis (OA), Pneumonia, Sleep Apnea/CPAP/BIPA P, Thyroid Disorder Additional Past Medical History / Comment(s): USES BIPAP, AORTIC VALVE REPLACEMENT , HX A-FIB WITH PNEUMONIA,CATARACT BL EYE History of Any Multi-Drug Resistant Organisms: VRE Date of last positivie culture/infection: 02/02/13 MDRO Source:: URINE Past Surgical History: Joint Replacement, Orthopedic Surgery, Pacemaker, Tonsillectomy, Tubal Ligation Additional Past Surgical History / Comment(s): JOSEPH THUMB JOINTS REPLACED; JOSEPH CA RPAL TUNNEL RELEASE ; JOSEPH KNEE ARTHROSCOPIES; TOTAL RT KNEE 04/2013, LATER HAD MANIPULATION OF KNEE. HAD THYROID AND PARATHYROID REMOVAL. TOTAL LEFT KNEE REPLACEMENT, CATARACT RT EYE, CATARACT LEFT EYE SURGERY ,COLONOSCOPY, TVAR- 11/2018 , Aortic valve replacement 10/2018 Past Anesthesia/Blood Transfusion Reactions: No Reported Reaction Type of Cardiac Device: Permanent Pacemaker Device Placement Date:: PACEMAKER NOV 2017. Past Psychological History: No Psychological Hx Reported Smoking Status: Never smoker Past Alcohol Use History: None Reported Past Drug Use History: None Reported - Past Family History Daughter(s) Family Medical History: Deep Vein Thrombosis (DVT) Sister(s) Family Medical History: Cancer Additional Family Medical History / Comment(s): BREAST CANCER General Exam - General Exam Comments Initial Comments: PE: CONSTITUTIONAL: Ill appearing, nontoxic, in NAD SKIN: Warm, dry, no jaundice, hives or petechiae Stage 2 decubitus ulcer on sacrum, no exudates, no crepitus when palpated EYES: Pupils are equally round, extraocular movements intact without nystagmus, clear conjunctiva, non-icteric sclera HENT: Normocephalic, atraumatic, exquitesitely dry mucus membranes, oropharynx clear without exudates NECK: , Full range of motion, normal appearance PULMONARY: Scant crackles in bilateral lung bases, no wheezes or rhonchi normal excursion, no accessory muscle use and no stridor CARDIOVASCULAR: Regular rate, rhythm, normal S1 and S2. No appreciated murmurs, rubs or gallops. Strong radial pulses with intact distal perfusion Scant 1+ pitting edema GASTROINTESTINAL: Soft, active bowel sounds throughout, non-tender, non- distended, no palpable masses, no rebound or guarding. No hepatosplenomegaly MUSCULOSKELETAL: Extremities have no gross deformity, no edema, redness, or swelling. No calf swelling NEUROLOGIC:_a/o x 3, GCS 15, normal mentation and speech. Moves all extremities x 4 without motor or sensory deficit PSYCHIATRIC:_normal mood and affect, thought process is clear and linear Limitations: no limitations Course Vital Signs 03/07/25 03/08/25 03/08/25 23:22 01:07 03:05 Temperature 98.4 F Pulse Rate 65 60 61 Pulse Rate [ Pulse Oximetery ] Respiratory 22 18 14 Rate Blood Pressure 83/41 97/45 99/50 Blood Pressure [Right Arm] O2 Sat by Pulse 93 L 96 96 Oximetry 03/08/25 03/08/25 03/08/25 04:37 06:33 08:00 Temperature Pulse Rate 65 65 63 Pulse Rate [ Pulse Oximetery ] Respiratory 18 18 20 Rate Blood Pressure 104/51 108/75 104/50 Blood Pressure [Right Arm] O2 Sat by Pulse 97 98 98 Oximetry 03/08/25 03/08/25 03/08/25 11:00 11:29 13:00 Temperature Pulse Rate 65 60 60 Pulse Rate [ Pulse Oximetery ] Respiratory 20 20 20 Rate Blood Pressure 121/62 121/62 100/60 Blood Pressure [Right Arm] O2 Sat by Pulse 95 97 96 Oximetry 03/08/25 03/08/25 03/08/25 14:54 17:40 18:36 Temperature Pulse Rate 61 65 60 Pulse Rate [ Pulse Oximetery ] Respiratory 20 20 20 Rate Blood Pressure 96/62 107/58 104/42 Blood Pressure [Right Arm] O2 Sat by Pulse 95 94 L 100 Oximetry 03/08/25 03/08/25 03/08/25 19:41 22:00 23:18 Temperature 98.8 F Pulse Rate 64 64 71 Pulse Rate [ Pulse Oximetery ] Respiratory 18 18 20 Rate Blood Pressure 102/48 112/62 120/62 Blood Pressure [Right Arm] O2 Sat by Pulse 97 98 98 Oximetry 03/09/25 00:00 Temperature 98.7 F Pulse Rate Pulse Rate [ 60 Pulse Oximetery ] Respiratory 24 Rate Blood Pressure Blood Pressure 114/71 [Right Arm] O2 Sat by Pulse 93 L Oximetry EKG Findings - EKG Comments: EKG Findings:: Electronic paced rhythm, rate 60 bpm WI interval 201 ms QT/QTc 473/474 ms, right axis deviation, some artifact present limiting interpretation though no significant ST elevations,Compared to EKG performed in 02/13/2025, new T wave inversion lead III, aVR, no new significant ST elevations Medical Decision Making - Medical Decision Making Was pt. sent in by a medical professional or institution (, PA, LIPCOAT SPRAYER, urgent care, hospital, or senior living...) When possible be specific @ -No Did you speak to anyone other than the patient for history (EMS, parent, family, police, friend...)? What history was obtained from this source I spoke with patient's daughter who assisted in providing history, states that patient has become progressively more confused over the last week especially over the last few days. Falls asleep easily during conversation. Thinks it is the nighttime when it is the daytime. Also notes that patient is currently on Eliquis and she is known to have a small "bleed" in her stomach that was found on a scope. She was directed to stop taking her Eliquis however the decision was made to continue the patient on her Eliquis due to her history of heart valve surgery patient has required blood transfusions in the past. Did you review nursing and triage notes (agree or disagree)? Why? @ -I reviewed and agree with nursing and triage notes Were old charts reviewed (outside hosp., previous admission, EMS record, old EKG, old radiological studies, urgent care reports/EKG's, senior living records)? Report findings @ -Medical records reviewed Differential Diagnosis (chest pain, altered mental status, abdominal pain women, abdominal pain men, vaginal bleeding, weakness, fever, dyspnea, syncope, headache, dizziness, GI bleed, back pain, seizure, CVA, palpatations, mental health, musculoskeletal)? Differential Altered Mental Status: Hypoglycemia, DKA, hypercapnia, ETOH, overdose, CO poisoning, trauma, myxedema coma, HTN encephalopathy, infection, encephalitis, psychosis, intercranial hemorrhage, hepatic encephalopathy, meningitis, CVA, this is not meant to be an all-inclusive list Differential Weakness: Hypoglycemia, shock, sepsis, hyponatremia, anemia, infection, [place], ETOH, adverse medicine reaction, overdose, stroke, this is not meant to be an all-inclusive list. EKG interpreted by me (3pts min.). @ -As above X-rays interpreted by me (1pt min.). Personally reviewed CXR, noted cardiomegaly, left pleural effusion, agree with radiologist interpretation CT interpreted by me (1pt min.). @reviewed CT brain, I see no evidence of hemorrahge, I agree with rad interpret ation U/S interpreted by me (1pt. min.). @reviewed US gallbladder, GB was not visualized, CBD not dilated, agree with radiologist interpretation What testing was considered but not performed or refused? (CT, X-rays, U/S, labs)? Why? @ -None What meds were considered but not given or refused? Why? @ lasix was considered however pt appeared dehydrated with dry MM and was hypotensive on arrival, recent UTI, giving concern for sepsis, so volume repletion was given instead; heparin was considered due to elevated troponin however pt anemic with know GI bleed, per daughter, so heparin withheld. Did you discuss the management of the patient with other professionals (professionals i.e. , PA, LIPCOAT SPRAYER, lab, RT, psych nurse, healthcare social worker, resistor winder, teacher, forward air controller/air officer, family service caseworker)? Give summary @ -No Was smoking cessation discussed for >3mins.? @ -No Was critical care preformed (if so, how long)? Yes 60 minutes Were there social determinants of health that impacted care today? How? (Homelessness, low income, unemployed, alcoholism, drug addiction, transportation, low edu. Level, literacy, decrease access to med. care, shelter, rehab)? @ -No Was there de-escalation of care discussed even if they declined (Discuss DNR or withdrawal of care, Hospice)? @ -No What co-morbidities impacted this encounter? (DM, HTN, Smoking, COPD, CAD, Cancer, CVA, ARF, Chemo, Hep., AIDS, mental health diagnosis, sleep apnea, morbid obesity)? @ atrial fibrillation on Eliquis, CHF Was patient admitted / discharged? Hospital course, mention meds given and route, prescriptions, significant lab abnormalities, going to OR and other pertinent info. @Admission- Patient is a 80-year-old female with a past medical history of atrial fibrillation on Eliquis, CHF, presenting today for generalized weakness and bodyaches. Per patient she has not felt well for the last week. States that her whole body hurts. Upon further history gathering from her daughter she states the patient has been gradually more confused over the course of last week and more weak. Please see above for history provided by the by daughter. Patient is still oriented x 4. Patient had COVID approximately 1 week ago and seems to have gone downhill since then, per luis. She also has started antibiotics recently for her recent UTI. On arrival patient is on home 3 L oxygen nasal cannula, does have scant 1+ bilateral pitting edema, abdomen is soft and nontender, possible slight crackles in the bilateral lower lobes of the lungs. Differential diagnosis remains broad at this point as well will her workup. Additionally, patient is hypotensive with MAPs less than 60 on arrival with dry MM. For this reason we will gradually fluid resuscitate. Will begin with 1 L normal saline, broad-spectrum antibiotics, source UTI vs cellutlis from decubitus ulcer, blood cultures. Patient's MAP 64 after fluid bolus. Her BNP is significantly elevated and sodium is 125 corrected for hyperglycemia. Will continue to gradually fluid res uscitate with NS due to persistent hypotension. Patient will be given additional 500 cc normal saline and started on 75 cc an hour of normal saline. Troponin 0.068. Patient denies any chest pain. I suspect this is secondary to demand ischemia. Patient's hemoglobin is 7.9, last checked on 02/23/2025 and was 8.8 at that time, patient apparently typically runs between 8 and 9 patient's platelets today are 30, much lower than they have been previously, on 02/23/2025 was 146, she appears to be pancytopenic, given elevated troponin, will transfuse 1 unit PRBC and 1 unit platelets for hgb >8. Discussed patient plan of care with patient's daughter. Of note patient is currently on her home CPAP, respirations are unlabored, an ABG was obtained out of concern that VBG reflected hypercapnia, however on ABG pCO2 was 40, PO2 within normal meds 83. On my reassessment blood pressure has since stabilized. She appears more comfortable, her coloring has improved. Will discontinue normal saline infusion and admit. Of note, due to complexity of pt's case, critical care was consulted, Ric LIPCOAT SPRAYER with critical care evaluated and at this time, feels patient is stable for step down. I agree with this given patient's improving blood pressure and clinical picture. Case discussed with Dr. Gaines, who kindly accepted pt for admission. Undiagnosed new problem with uncertain prognosis? @ -No Drug Therapy requiring intensive monitoring for toxicity (Heparin, Nitro, Insulin, Cardizem)? @ -No Were any procedures done? @ -No Diagnosis/symptom? @Hyponatremia, weakness, CHF exacerbation, hyperglycemia, possible sepsis , pancytopenia Acute, or Chronic, or Acute on Chronic? @ -acute Uncomplicated (without systemic symptoms) or Complicated (systemic symptoms)? @ complicated Side effects of treatment? @ -No Exacerbation, Progression, or Severe Exacerbation? @ -No Poses a threat to life or bodily function? How? (Chest pain, [place], [place], pneumonia, PE, COPD, DKA, ARF, appy, cholecystitis, CVA, Diverticulitis, Homicidal, Suicidal, threat to staff... and all critical care pts) @ -Yes - Lab Data Result diagrams: 03/10/25 05:46 03/10/25 05:46 Lab Results 03/07/25 03/07/25 03/07/25 Range/Units 23:25 23:46 23:46 WBC 4.41 L (4.50-10.00) 10*3/uL RBC 2.62 L (4.10-5.20) 10*6/uL Hgb 7.9 L (12.0-15.0) g/dL Hct 23.7 L (37.2-46.3) % MCV 90.5 D (80.0-97.0) fL MCH 30.2 (27.0-32.0) pg MCHC 33.3 (32.0-37.0) g/dL Plt Count 30 L D (140-440) 10*3/uL Immature Gran % (Auto) 1.4 % Neutrophils % 87.4 % Lymphocytes % 7.3 % Monocytes % 3.2 % Eosinophils % 0.2 % Basophils % 0.5 % Immature Gran # 0.06 H (0.00-0.04) 10*3/uL Neutrophils # 3.86 (1.80-7.70) 10*3/uL Lymphocytes # 0.32 L (0.90-5.00) 10*3/uL Monocytes # 0.14 L (0.20-1.00) 10*3/uL Eosinophils # 0.01 L (0.04-0.35) 10*3/uL Basophils # 0.02 (0.00-0.10) 10*3/uL Manual Slide Review Performed Ovalocytes Present PT 12.3 (10.0-12.5) sec INR 1.1 (<1.2) APTT 25.6 (22.0-30.0) sec Sample Site ABG pH (7.35-7.45) ABG pCO2 (35-45) mmHg ABG pO2 (83-108) mmHg ABG HCO3 (21-25) mmol/L ABG Total CO2 (19-24) mmol/L ABG O2 Saturation (94-97) % ABG Base Excess mmol/L David Test VBG pH (7.31-7.41) VBG pCO2 (37-51) mmHg VBG HCO3 (24-28) mmol/L Hemoglobin (11.4-16.0) gm/dL FiO2 % Sodium (137-145) mmol/L Potassium (3.5-5.1) mmol/L Chloride (98-107) mmol/L Carbon Dioxide (22-30) mmol/L Anion Gap mmol/L BUN (7-17) mg/dL Creatinine (0.52-1.04) mg/dL Est GFR (CKD-EPI)AfAm (>60 ml/min/1.73 sqM) Est GFR (CKD-EPI)NonAf (>60 ml/min/1.73 sqM) Glucose (74-99) mg/dL POC Glucose (mg/dL) 402 H (70-110) mg/dL POC Glu Binder Chainstitch ID Elder Arnold Lactic Ac Sepsis Rflx Plasma Lactic Acid Jez (0.7-2.0) mmol/L Calcium (8.4-10.2) mg/dL Phosphorus (2.5-4.5) mg/dL Magnesium (1.6-2.3) mg/dL Iron (50-170) UG/DL TIBC (228-460) UG/DL % Saturation (12.00-45.00) Transferrin (204.0-354.0) mg/dL Ferritin (10.0-291.0) ng/mL Total Bilirubin (0.2-1.3) mg/dL AST (14-36) U/L ALT (4-34) U/L Alkaline Phosphatase (38-126) U/L Troponin I (0.000-0.034) ng/mL NT-Pro-B Natriuret Pep pg/mL Total Protein (6.3-8.2) g/dL Albumin (3.5-5.0) g/dL Urine Color Urine Appearance (Clear) Urine pH (5.0-8.0) Ur Specific [place] (1.001-1.035) Urine Protein (Negative) Urine Glucose (UA) (Negative) Urine Ketones (Negative) Urine Blood (Negative) Urine Nitrite (Negative) Urine Bilirubin (Negative) Urine Urobilinogen (<2.0) mg/dL Ur Leukocyte Esterase (Negative) Urine Osmolality (400-1100) mOsm/kg Ur Random Sodium (40-220) mmol/L Acetone, Qual (Negative) Influenza Type A (PCR) (Not Detectd) Influenza Type B (PCR) (Not Detectd) RSV (PCR) (Not Detectd) SARS-CoV-2 (PCR) (Not Detectd) Blood Type Blood Type Recheck Bld Type Recheck Status Antibody Screen Antibody Identification Direct Antiglob Test VADIM, IgG Interpret VADIM, Poly Interpret Crossmatch Spec Expiration Date 03/07/25 03/07/25 03/07/25 Range/Units 23:46 23:46 23:46 WBC (4.50-10.00) 10*3/uL RBC (4.10-5.20) 10*6/uL Hgb (12.0-15.0) g/dL Hct (37.2-46.3) % MCV (80.0-97.0) fL MCH (27.0-32.0) pg MCHC (32.0-37.0) g/dL Plt Count (140-440) 10*3/uL Immature Gran % (Auto) % Neutrophils % % Lymphocytes % % Monocytes % % Eosinophils % % Basophils % % Immature Gran # (0.00-0.04) 10*3/uL Neutrophils # (1.80-7.70) 10*3/uL Lymphocytes # (0.90-5.00) 10*3/uL Monocytes # (0.20-1.00) 10*3/uL Eosinophils # (0.04-0.35) 10*3/uL Basophils # (0.00-0.10) 10*3/uL Manual Slide Review Ovalocytes PT (10.0-12.5) sec INR (<1.2) APTT (22.0-30.0) sec Sample Site ABG pH (7.35-7.45) ABG pCO2 (35-45) mmHg ABG pO2 (83-108) mmHg ABG HCO3 (21-25) mmol/L ABG Total CO2 (19-24) mmol/L ABG O2 Saturation (94-97) % ABG Base Excess mmol/L David Test VBG pH (7.31-7.41) VBG pCO2 (37-51) mmHg VBG HCO3 (24-28) mmol/L Hemoglobin (11.4-16.0) gm/dL FiO2 % Sodium 120 L (137-145) mmol/L Potassium 4.2 (3.5-5.1) mmol/L Chloride 86 L (98-107) mmol/L Carbon Dioxide 27 (22-30) mmol/L Anion Gap 7 mmol/L BUN 64 H (7-17) mg/dL Creatinine 1.46 H (0.52-1.04) mg/dL Est GFR (CKD-EPI)AfAm 39 (>60 ml/min/1.73 sqM) Est GFR (CKD-EPI)NonAf 34 (>60 ml/min/1.73 sqM) Glucose 390 H (74-99) mg/dL POC Glucose (mg/dL) (70-110) mg/dL POC Glu Binder Chainstitch ID Lactic Ac Sepsis Rflx Plasma Lactic Acid Jez 3.1 H* (0.7-2.0) mmol/L Calcium 8.4 (8.4-10.2) mg/dL Phosphorus (2.5-4.5) mg/dL Magnesium (1.6-2.3) mg/dL Iron (50-170) UG/DL TIBC (228-460) UG/DL % Saturation (12.00-45.00) Transferrin (204.0-354.0) mg/dL Ferritin (10.0-291.0) ng/mL Total Bilirubin 1.4 H (0.2-1.3) mg/dL AST 124 H (14-36) U/L ALT 106 H (4-34) U/L Alkaline Phosphatase 132 H (38-126) U/L Troponin I 0.087 H* (0.000-0.034) ng/mL NT-Pro-B Natriuret Pep 9750 pg/mL Total Protein 6.0 L (6.3-8.2) g/dL Albumin 2.9 L (3.5-5.0) g/dL Urine Color Urine Appearance (Clear) Urine pH (5.0-8.0) Ur Specific [place] (1.001-1.035) Urine Protein (Negative) Urine Glucose (UA) (Negative) Urine Ketones (Negative) Urine Blood (Negative) Urine Nitrite (Negative) Urine Bilirubin (Negative) Urine Urobilinogen (<2.0) mg/dL Ur Leukocyte Esterase (Negative) Urine Osmolality (400-1100) mOsm/kg Ur Random Sodium (40-220) mmol/L Acetone, Qual (Negative) Influenza Type A (PCR) (Not Detectd) Influenza Type B (PCR) (Not Detectd) RSV (PCR) (Not Detectd) SARS-CoV-2 (PCR) (Not Detectd) Blood Type Blood Type Recheck Bld Type Recheck Status Antibody Screen Antibody Identification Direct Antiglob Test VADIM, IgG Interpret VADIM, Poly Interpret Crossmatch Spec Expiration Date 03/07/25 03/07/25 03/07/25 Range/Units 23:46 23:49 23:58 WBC (4.50-10.00) 10*3/uL RBC (4.10-5.20) 10*6/uL Hgb (12.0-15.0) g/dL Hct (37.2-46.3) % MCV (80.0-97.0) fL MCH (27.0-32.0) pg MCHC (32.0-37.0) g/dL Plt Count (140-440) 10*3/uL Immature Gran % (Auto) % Neutrophils % % Lymphocytes % % Monocytes % % Eosinophils % % Basophils % % Immature Gran # (0.00-0.04) 10*3/uL Neutrophils # (1.80-7.70) 10*3/uL Lymphocytes # (0.90-5.00) 10*3/uL Monocytes # (0.20-1.00) 10*3/uL Eosinophils # (0.04-0.35) 10*3/uL Basophils # (0.00-0.10) 10*3/uL Manual Slide Review Ovalocytes PT (10.0-12.5) sec INR (<1.2) APTT (22.0-30.0) sec Sample Site ABG pH (7.35-7.45) ABG pCO2 (35-45) mmHg ABG pO2 (83-108) mmHg ABG HCO3 (21-25) mmol/L ABG Total CO2 (19-24) mmol/L ABG O2 Saturation (94-97) % ABG Base Excess mmol/L David Test VBG pH (7.31-7.41) VBG pCO2 (37-51) mmHg VBG HCO3 (24-28) mmol/L Hemoglobin (11.4-16.0) gm/dL FiO2 % Sodium (137-145) mmol/L Potassium (3.5-5.1) mmol/L Chloride (98-107) mmol/L Carbon Dioxide (22-30) mmol/L Anion Gap mmol/L BUN (7-17) mg/dL Creatinine (0.52-1.04) mg/dL Est GFR (CKD-EPI)AfAm (>60 ml/min/1.73 sqM) Est GFR (CKD-EPI)NonAf (>60 ml/min/1.73 sqM) Glucose (74-99) mg/dL POC Glucose (mg/dL) (70-110) mg/dL POC Glu Binder Chainstitch ID Lactic Ac Sepsis Rflx Plasma Lactic Acid Jez (0.7-2.0) mmol/L Calcium (8.4-10.2) mg/dL Phosphorus 2.9 (2.5-4.5) mg/dL Magnesium 2.0 (1.6-2.3) mg/dL Iron 32 L (50-170) UG/DL TIBC 189 L (228-460) UG/DL % Saturation 16.93 (12.00-45.00) Transferrin 135.0 L (204.0-354.0) mg/dL Ferritin 856.0 H (10.0-291.0) ng/mL Total Bilirubin (0.2-1.3) mg/dL AST (14-36) U/L ALT (4-34) U/L Alkaline Phosphatase (38-126) U/L Troponin I (0.000-0.034) ng/mL NT-Pro-B Natriuret Pep pg/mL Total Protein (6.3-8.2) g/dL Albumin (3.5-5.0) g/dL Urine Color Urine Appearance (Clear) Urine pH (5.0-8.0) Ur Specific [place] (1.001-1.035) Urine Protein (Negative) Urine Glucose (UA) (Negative) Urine Ketones (Negative) Urine Blood (Negative) Urine Nitrite (Negative) Urine Bilirubin (Negative) Urine Urobilinogen (<2.0) mg/dL Ur Leukocyte Esterase (Negative) Urine Osmolality (400-1100) mOsm/kg Ur Random Sodium (40-220) mmol/L Acetone, Qual Negative (Negative) Influenza Type A (PCR) Not Detected (Not Detectd) Influenza Type B (PCR) Not Detected (Not Detectd) RSV (PCR) Not Detected (Not Detectd) SARS-CoV-2 (PCR) Not Detected (Not Detectd) Blood Type Blood Type Recheck Bld Type Recheck Status Antibody Screen Antibody Identification Direct Antiglob Test VADIM, IgG Interpret VADIM, Poly Interpret Crossmatch Spec Expiration Date 03/08/25 03/08/25 03/08/25 Range/Units 00:34 01:35 02:45 WBC (4.50-10.00) 10*3/uL RBC (4.10-5.20) 10*6/uL Hgb (12.0-15.0) g/dL Hct (37.2-46.3) % MCV (80.0-97.0) fL MCH (27.0-32.0) pg MCHC (32.0-37.0) g/dL Plt Count (140-440) 10*3/uL Immature Gran % (Auto) % Neutrophils % % Lymphocytes % % Monocytes % % Eosinophils % % Basophils % % Immature Gran # (0.00-0.04) 10*3/uL Neutrophils # (1.80-7.70) 10*3/uL Lymphocytes # (0.90-5.00) 10*3/uL Monocytes # (0.20-1.00) 10*3/uL Eosinophils # (0.04-0.35) 10*3/uL Basophils # (0.00-0.10) 10*3/uL Manual Slide Review Ovalocytes PT (10.0-12.5) sec INR (<1.2) APTT (22.0-30.0) sec Sample Site rrad ABG pH 7.43 (7.35-7.45) ABG pCO2 40 (35-45) mmHg ABG pO2 83 (83-108) mmHg ABG HCO3 27 H (21-25) mmol/L ABG Total CO2 28 H (19-24) mmol/L ABG O2 Saturation 97.6 H (94-97) % ABG Base Excess 2.1 mmol/L David Test Yes VBG pH 7.34 (7.31-7.41) VBG pCO2 52 H (37-51) mmHg VBG HCO3 28 (24-28) mmol/L Hemoglobin 7.7 L (11.4-16.0) gm/dL FiO2 50 % Sodium (137-145) mmol/L Potassium (3.5-5.1) mmol/L Chloride (98-107) mmol/L Carbon Dioxide (22-30) mmol/L Anion Gap mmol/L BUN (7-17) mg/dL Creatinine (0.52-1.04) mg/dL Est GFR (CKD-EPI)AfAm (>60 ml/min/1.73 sqM) Est GFR (CKD-EPI)NonAf (>60 ml/min/1.73 sqM) Glucose (74-99) mg/dL POC Glucose (mg/dL) (70-110) mg/dL POC Glu Binder Chainstitch ID Lactic Ac Sepsis Rflx Y Plasma Lactic Acid Jez (0.7-2.0) mmol/L Calcium (8.4-10.2) mg/dL Phosphorus (2.5-4.5) mg/dL Magnesium (1.6-2.3) mg/dL Iron (50-170) UG/DL TIBC (228-460) UG/DL % Saturation (12.00-45.00) Transferrin (204.0-354.0) mg/dL Ferritin (10.0-291.0) ng/mL Total Bilirubin (0.2-1.3) mg/dL AST (14-36) U/L ALT (4-34) U/L Alkaline Phosphatase (38-126) U/L Troponin I (0.000-0.034) ng/mL NT-Pro-B Natriuret Pep pg/mL Total Protein (6.3-8.2) g/dL Albumin (3.5-5.0) g/dL Urine Color Urine Appearance (Clear) Urine pH (5.0-8.0) Ur Specific [place] (1.001-1.035) Urine Protein (Negative) Urine Glucose (UA) (Negative) Urine Ketones (Negative) Urine Blood (Negative) Urine Nitrite (Negative) Urine Bilirubin (Negative) Urine Urobilinogen (<2.0) mg/dL Ur Leukocyte Esterase (Negative) Urine Osmolality (400-1100) mOsm/kg Ur Random Sodium (40-220) mmol/L Acetone, Qual (Negative) Influenza Type A (PCR) (Not Detectd) Influenza Type B (PCR) (Not Detectd) RSV (PCR) (Not Detectd) SARS-CoV-2 (PCR) (Not Detectd) Blood Type Blood Type Recheck Bld Type Recheck Status Antibody Screen Antibody Identification Direct Antiglob Test VADIM, IgG Interpret VADIM, Poly Interpret Crossmatch Spec Expiration Date 03/08/25 03/08/25 03/08/25 Range/Units 04:23 04:23 05:00 WBC (4.50-10.00) 10*3/uL RBC (4.10-5.20) 10*6/uL Hgb (12.0-15.0) g/dL Hct (37.2-46.3) % MCV (80.0-97.0) fL MCH (27.0-32.0) pg MCHC (32.0-37.0) g/dL Plt Count (140-440) 10*3/uL Immature Gran % (Auto) % Neutrophils % % Lymphocytes % % Monocytes % % Eosinophils % % Basophils % % Immature Gran # (0.00-0.04) 10*3/uL Neutrophils # (1.80-7.70) 10*3/uL Lymphocytes # (0.90-5.00) 10*3/uL Monocytes # (0.20-1.00) 10*3/uL Eosinophils # (0.04-0.35) 10*3/uL Basophils # (0.00-0.10) 10*3/uL Manual Slide Review Ovalocytes PT (10.0-12.5) sec INR (<1.2) APTT (22.0-30.0) sec Sample Site ABG pH (7.35-7.45) ABG pCO2 (35-45) mmHg ABG pO2 (83-108) mmHg ABG HCO3 (21-25) mmol/L ABG Total CO2 (19-24) mmol/L ABG O2 Saturation (94-97) % ABG Base Excess mmol/L David Test VBG pH (7.31-7.41) VBG pCO2 (37-51) mmHg VBG HCO3 (24-28) mmol/L Hemoglobin (11.4-16.0) gm/dL FiO2 % Sodium (137-145) mmol/L Potassium (3.5-5.1) mmol/L Chloride (98-107) mmol/L Carbon Dioxide (22-30) mmol/L Anion Gap mmol/L BUN (7-17) mg/dL Creatinine (0.52-1.04) mg/dL Est GFR (CKD-EPI)AfAm (>60 ml/min/1.73 sqM) Est GFR (CKD-EPI)NonAf (>60 ml/min/1.73 sqM) Glucose (74-99) mg/dL POC Glucose (mg/dL) (70-110) mg/dL POC Glu Binder Chainstitch ID Lactic Ac Sepsis Rflx Plasma Lactic Acid Jez (0.7-2.0) mmol/L Calcium (8.4-10.2) mg/dL Phosphorus (2.5-4.5) mg/dL Magnesium (1.6-2.3) mg/dL Iron (50-170) UG/DL TIBC (228-460) UG/DL % Saturation (12.00-45.00) Transferrin (204.0-354.0) mg/dL Ferritin (10.0-291.0) ng/mL Total Bilirubin (0.2-1.3) mg/dL AST (14-36) U/L ALT (4-34) U/L Alkaline Phosphatase (38-126) U/L Troponin I 0.084 H* (0.000-0.034) ng/mL NT-Pro-B Natriuret Pep pg/mL Total Protein (6.3-8.2) g/dL Albumin (3.5-5.0) g/dL Urine Color Dark Yellow Urine Appearance Clear (Clear) Urine pH 5.5 (5.0-8.0) Ur Specific [place] 1.019 (1.001-1.035) Urine Protein Trace H (Negative) Urine Glucose (UA) Trace H (Negative) Urine Ketones Negative (Negative) Urine Blood Negative (Negative) Urine Nitrite Negative (Negative) Urine Bilirubin Negative (Negative) Urine Urobilinogen <2.0 (<2.0) mg/dL Ur Leukocyte Esterase Negative (Negative) Urine Osmolality (400-1100) mOsm/kg Ur Random Sodium (40-220) mmol/L Acetone, Qual (Negative) Influenza Type A (PCR) (Not Detectd) Influenza Type B (PCR) (Not Detectd) RSV (PCR) (Not Detectd) SARS-CoV-2 (PCR) (Not Detectd) Blood Type O Positive Blood Type Recheck O Pos Bld Type Recheck Status No Antibody Screen POSITIVE Antibody Identification Not Reportable Direct Antiglob Test Positive VADIM, IgG Interpret Cancelled VADIM, Poly Interpret Cancelled Crossmatch See Detail Spec Expiration Date 03/08/2025 03/08/25 03/08/25 03/08/25 Range/Units 05:00 05:00 05:00 WBC (4.50-10.00) 10*3/uL RBC (4.10-5.20) 10*6/uL Hgb (12.0-15.0) g/dL Hct (37.2-46.3) % MCV (80.0-97.0) fL MCH (27.0-32.0) pg MCHC (32.0-37.0) g/dL Plt Count (140-440) 10*3/uL Immature Gran % (Auto) % Neutrophils % % Lymphocytes % % Monocytes % % Eosinophils % % Basophils % % Immature Gran # (0.00-0.04) 10*3/uL Neutrophils # (1.80-7.70) 10*3/uL Lymphocytes # (0.90-5.00) 10*3/uL Monocytes # (0.20-1.00) 10*3/uL Eosinophils # (0.04-0.35) 10*3/uL Basophils # (0.00-0.10) 10*3/uL Manual Slide Review Ovalocytes PT (10.0-12.5) sec INR (<1.2) APTT (22.0-30.0) sec Sample Site ABG pH (7.35-7.45) ABG pCO2 (35-45) mmHg ABG pO2 (83-108) mmHg ABG HCO3 (21-25) mmol/L ABG Total CO2 (19-24) mmol/L ABG O2 Saturation (94-97) % ABG Base Excess mmol/L David Test VBG pH (7.31-7.41) VBG pCO2 (37-51) mmHg VBG HCO3 (24-28) mmol/L Hemoglobin (11.4-16.0) gm/dL FiO2 % Sodium (137-145) mmol/L Potassium (3.5-5.1) mmol/L Chloride (98-107) mmol/L Carbon Dioxide (22-30) mmol/L Anion Gap mmol/L BUN (7-17) mg/dL Creatinine (0.52-1.04) mg/dL Est GFR (CKD-EPI)AfAm (>60 ml/min/1.73 sqM) Est GFR (CKD-EPI)NonAf (>60 ml/min/1.73 sqM) Glucose (74-99) mg/dL POC Glucose (mg/dL) (70-110) mg/dL POC Glu Binder Chainstitch ID Lactic Ac Sepsis Rflx Plasma Lactic Acid Jez 2.1 H* (0.7-2.0) mmol/L Calcium (8.4-10.2) mg/dL Phosphorus (2.5-4.5) mg/dL Magnesium (1.6-2.3) mg/dL Iron (50-170) UG/DL TIBC (228-460) UG/DL % Saturation (12.00-45.00) Transferrin (204.0-354.0) mg/dL Ferritin (10.0-291.0) ng/mL Total Bilirubin (0.2-1.3) mg/dL AST (14-36) U/L ALT (4-34) U/L Alkaline Phosphatase (38-126) U/L Troponin I (0.000-0.034) ng/mL NT-Pro-B Natriuret Pep pg/mL Total Protein (6.3-8.2) g/dL Albumin (3.5-5.0) g/dL Urine Color Urine Appearance (Clear) Urine pH (5.0-8.0) Ur Specific [place] (1.001-1.035) Urine Protein (Negative) Urine Glucose (UA) (Negative) Urine Ketones (Negative) Urine Blood (Negative) Urine Nitrite (Negative) Urine Bilirubin (Negative) Urine Urobilinogen (<2.0) mg/dL Ur Leukocyte Esterase (Negative) Urine Osmolality 417 (400-1100) mOsm/kg Ur Random Sodium <20 L (40-220) mmol/L Acetone, Qual (Negative) Influenza Type A (PCR) (Not Detectd) Influenza Type B (PCR) (Not Detectd) RSV (PCR) (Not Detectd) SARS-CoV-2 (PCR) (Not Detectd) Blood Type Blood Type Recheck Bld Type Recheck Status Antibody Screen Antibody Identification Direct Antiglob Test VADIM, IgG Interpret VADIM, Poly Interpret Crossmatch Spec Expiration Date Disposition Clinical Impression: Hyponatremia, Pancytopenia, Severe sepsis Disposition: ADMITTED IP TO THIS HOSP Condition: Stable
[2025-03-08 00:20] LABS: INR 1.1 (<1.2); Partial Thromboplastin Time 25.6 sec (22.0-30.0); Prothrombin Time 12.3 sec (10.0-12.5)
[2025-03-08 00:24] LABS: ALT 106 U/L (4-34); AST 124 U/L (14-36); African American GFR (CKD) 39 (>60 ml/min/1.73 sqM); Albumin 2.9 g/dL (3.5-5.0); Alkaline Phosphatase 132 U/L (38-126); Anion Gap 7 mmol/L; Blood Urea Nitrogen 64 mg/dL (7-17); Calcium 8.4 mg/dL (8.4-10.2); Carbon Dioxide 27 mmol/L (22-30); Chloride 86 mmol/L (98-107); Glucose 390 mg/dL (74-99); Non-African American GFR(CKD) 34 (>60 ml/min/1.73 sqM); Potassium 4.2 mmol/L (3.5-5.1); Sodium 120 mmol/L (137-145); Total Bilirubin 1.4 mg/dL (0.2-1.3)
[2025-03-08 00:32] LABS: NT-Pro-B-Type Natriuretic Pept 9750 pg/mL
[2025-03-08 00:51] LABS: Influenza A Not Detected (Not Detectd); Influenza B Not Detected (Not Detectd); RSV Not Detected (Not Detectd)
[2025-03-08 00:53] LABS: Basophils # (A) 0.02 10*3/uL (0.00-0.10); Basophils % (A) 0.5 %; Eosinophils # (A) 0.01 10*3/uL (0.04-0.35); Eosinophils % (A) 0.2 %; HCT 23.7 % (37.2-46.3); HGB 7.9 g/dL (12.0-15.0); Lymphocytes # (A) 0.32 10*3/uL (0.90-5.00); Lymphocytes % (A) 7.3 %; MCH 30.2 pg (27.0-32.0); MCHC 33.3 g/dL (32.0-37.0); Monocytes # (A) 0.14 10*3/uL (0.20-1.00); Monocytes % (A) 3.2 %; Neutrophils # (A) 3.86 10*3/uL (1.80-7.70); Neutrophils % (A) 87.4 %; RBC 2.62 10*6/uL (4.10-5.20); WBC 4.41 10*3/uL (4.50-10.00)
[2025-03-08 00:57] LABS: Phosphorus 2.9 mg/dL (2.5-4.5)
[2025-03-08] MEDS: cefTRIAXone 2 GM in DEXTROSE 5% IN WATER 50 ML IVPB STA ×2 (00:59→01:05)
[2025-03-08] MEDS: LACTATED RINGERS 500 ML IV ONE (01:20)
[2025-03-08] MEDS: SODIUM CHLORIDE 0.9% 1,000 ML IV SCH (01:53)
[2025-03-08] MEDS: VANCOMYCIN 1,750 MG in SODIUM CHLORIDE 0.9% 500 ML 500 ML IVPB ONE (01:53)
--- NOTE | 2025-03-08 02:00 | XR ---
EXAM: XR Chest, 1 View CLINICAL HISTORY: ITS.REASON XR Reason: Fever, hx CHF TECHNIQUE: Frontal view of the chest. COMPARISON: No relevant prior studies available. FINDINGS: Lungs: Persistent left basilar airspace disease. Pleural space: No pneumothorax. Persistent small left pleural effusion. Heart: Sternotomy, aortic valve replacement, cardiomegaly. Bones/joints: No acute osseous findings. Tubes, lines and devices: Left chest wall dual-lead AICD-pacemaker. IMPRESSION: 1. Persistent left basilar airspace disease. This could represent atelectasis or pneumonia. 2. Persistent small left pleural effusion.
[2025-03-08 02:02] LABS: VBG PH 7.34 (7.31-7.41)
--- NOTE | 2025-03-08 02:07 | US ---
EXAM: US Abdomen Limited, Gallbladder CLINICAL HISTORY: ITS.REASON US Reason: elevated LFTS TECHNIQUE: Real-time ultrasound of the right upper quadrant with image documentation. COMPARISON: No relevant prior studies available. FINDINGS: Limitations: Body habitus. Liver: Liver measures 16.3 cm. Gallbladder: Gallbladder not visualized. Common bile duct: No biliary dilatation. CBD 4 mm. Pancreas: Pancreas obscured by bowel gas. Right kidney: Right kidney not visualized. IMPRESSION: 1. Gallbladder not visualized. 2. Right kidney not visualized.
[2025-03-08 02:08] LABS: Ovalocytes Present; Platelet Count 30 10*3/uL (140-440)
[2025-03-08 02:48] LABS: ABG Base Excess 2.1 mmol/L; ABG HCO3 27 mmol/L (21-25); ABG Oxygen Saturation 97.6 % (94-97); ABG PCO2 40 mmHg (35-45); ABG PH 7.43 (7.35-7.45); ABG PO2 83 mmHg (83-108); ABG TCO2 28 mmol/L (19-24); Allen Test Performed? Yes
--- NOTE | 2025-03-08 02:51 | CT ---
EXAM: CT Head Without Intravenous Contrast CLINICAL HISTORY: ITS.REASON CT Reason: AMS TECHNIQUE: Axial computed tomography images of the head/brain without intravenous contrast. CTDI is 49.1 mGy and DLP is 1186.4 mGy-cm. This CT exam was performed using one or more of the following dose reduction techniques: automated exposure control, adjustment of the mA and/or kV according to patient size, and/or use of iterative reconstruction technique. COMPARISON: No relevant prior studies available. FINDINGS: Brain: Age-related parenchymal volume loss. Mild chronic small vessel ischemic change. Bland-white matter differentiation maintained. No hemorrhage, mass effect, parenchymal edema, or midline shift. Ventricles: No hydrocephalus. Bones/joints: No acute fracture. Soft tissues: Unremarkable. Vasculature: Intracranial atherosclerosis. Sinuses: Unremarkable as visualized. Mastoid air cells: No significant mastoid effusion. Orbits: Lens replacements. IMPRESSION: No acute intracranial process.
[2025-03-08] MEDS: SODIUM CHLORIDE 0.9% 500 ML 500 ML IV ONE (03:10)
[2025-03-08] MEDS: PANTOPRAZOLE 40 MG/10 ML VIAL IVP ONE (04:58)
[2025-03-08] MEDS ORDERED: MAG HYDROX/AL HYDROX/SIMETH 30 ML CUP PO PRN (05:10)
[2025-03-08] MEDS ORDERED: ONDANSETRON 4 MG/2 ML VIAL IVP PRN (05:10)
[2025-03-08] MEDS ORDERED: NALOXONE 0.4 MG/ML 1 ML VIAL IV PRN (05:10)
[2025-03-08] MEDS ORDERED: CALCIUM CARBONATE 500 MG CHEWABLE PO PRN (05:10)
[2025-03-08 05:22] LABS: Appearance,Urine Clear (Clear); Bilirubin,Urine Negative (Negative); Blood,Urine Negative (Negative); Color,Urine Dark Yellow; Glucose,Urine (UA) Trace (Negative); Ketones,Urine Negative (Negative); Leukocyte Esterase,Urine Negative (Negative); Nitrite,Urine Negative (Negative); PH, Urine 5.5 (5.0-8.0); Protein,Urine Trace (Negative); Specific Gravity,Urine 1.019 (1.001-1.035); Urobilinogen,Urine <2.0 mg/dL (<2.0)
[2025-03-08 07:27] LABS: African American GFR (CKD) 48 (>60 ml/min/1.73 sqM); Anion Gap 8 mmol/L; Blood Urea Nitrogen 65 mg/dL (7-17); Calcium 8.1 mg/dL (8.4-10.2); Carbon Dioxide 23 mmol/L (22-30); Chloride 91 mmol/L (98-107); Glucose 354 mg/dL (74-99); Non-African American GFR(CKD) 42 (>60 ml/min/1.73 sqM); Sodium 122 mmol/L (137-145)
[2025-03-08 07:30] LABS: MCV 90.5 fL (80.0-97.0)
[2025-03-08 08:03] LABS: Potassium 4.5 mmol/L (3.5-5.1)
[2025-03-08] MEDS: APIXABAN 2.5 MG TABLET PO SCH (09:29)
[2025-03-08] MEDS: PANTOPRAZOLE 40 MG/10 ML VIAL IV SCH (09:31)
[2025-03-08 10:17] LABS: HCT 23.6 % (37.2-46.3); HGB 7.7 g/dL (12.0-15.0); MCH 30.2 pg (27.0-32.0); MCHC 32.6 g/dL (32.0-37.0); MCV 92.5 fL (80.0-97.0); Platelet Count 39 10*3/uL (140-440); RBC 2.55 10*6/uL (4.10-5.20); RDW 15.9 % (11.5-14.5); WBC 5.09 10*3/uL (4.50-10.00)
--- NOTE | 2025-03-08 10:54 | P.HPIM ---
History of Present Illness 80-year-old female with history of mitral valve replacement congestive heart failure EF of around 40 to 45% came in with complaints of generalized weakness. Patient is found to be hyponatremic. Patient is on 6 L of oxygen usually uses 4 to 5 L at home. Patient does have history of obstructive sleep apnea for which patient is on BiPAP at home. Patient had no fever or chills patient does not have any leukocytosis patient does not have any complaints of dysuria suprapubic pain urine is essentially within normal limits chest x-ray showed some nonspecific infiltrate not consistent with pneumonia. Will obtain a procalcitonin level patient's BNP is elevated to 8000 patient's previous BNP was 5000. Patient does have bilateral lower extremity pedal edema. Patient does have stage II decubitus ulcers does not appear to be infected. Patient was started on vancomycin probably for that reason in ER. Patient has minimally elevated troponins. REVIEW OF SYSTEMS: All other systems are negative except those mentioned in the HPI PHYSICAL EXAMINATION: GENERAL: The patient is alert and oriented x3,, he is in some respiratory distress without BiPAP. Obese HEENT: Pupils are round and equally reacting to light. EOMI. No scleral icterus. No conjunctival pallor. Normocephalic, atraumatic. No pharyngeal erythema. No thyromegaly. CARDIOVASCULAR: S1 and S2 present. No murmurs, rubs, or gallops. PULMONARY: Chest is clear to auscultation, no wheezing or crackles. ABDOMEN: Soft, nontender, nondistended, normoactive bowel sounds. No palpable organomegaly. MUSCULOSKELETAL: No joint swelling or deformity. EXTREMITIES: No cyanosis, clubbing, bilateral lower extremity pedal edema NEUROLOGICAL: Gross neurological examination did not reveal any focal deficits. SKIN: No rashes. Assessment and plan -Congestive heart failure chronic systolic function with acute exacerbation. Patient will be started on IV Lasix patient is also on metolazone which will be resumed once medications are verified - Hypervolemic hyponatremia patient will be started on IV Lasix expected to improve with IV Lasix nephrology was consulted from ER. - Acute on chronic hypoxic respiratory failure secondary to possible pulmonary edema. IV Lasix as mentioned above - Type 2 diabetes mellitus uncontrolled elevated blood sugars patient will be s tarted on 40 units of Lantus 20 units of Premeal insulin along with sliding scale titration depending on her blood sugars - History of atrial fibrillation: Patient is presently rate controlled patient probably has paroxysmal A-fib on Eliquis at home patient received 1 dose of Eliquis which is being held at this time with concerns of GI bleed although patient does not have any significant stools at this time her hemoglobin stayed stable for last 2 to 3 months receives IV iron transfusion as an outpatient - History of GI bleed in the past presently does not appear to have acute bleed or GI bleed at this time we will give IV iron transfusion will not require any blood transfusion at the time patient is receiving as needed blood transfusions and IV iron transfusions as an outpatient - History of bioprosthetic aortic valve replacement - Sleep apnea on CPAP machine Hypothyroidism DVT prophylaxis: Anticoagulation as mentioned above Past Medical History Past Medical History: Atrial Fibrillation, Diabetes Mellitus, Hearing Disorder / Deafness, Hyperlipidemia, Osteoarthritis (OA), Pneumonia, Sleep Apnea/CPAP/BIPAP, Thyroid Disorder Additional Past Medical History / Comment(s): USES BIPAP, AORTIC VALVE REPLACEMENT , HX A-FIB WITH PNEUMONIA,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 HAD THYROID AND PARATHYROID REMOVAL. TOTAL LEFT KNEE REPLACEMENT, CATARACT RT EYE, CATARACT LEFT EYE SURGERY ,COLONOSCOPY, TVAR- 11/2018 , Aortic valve replacement 10/2018 Past Anesthesia/Blood Transfusion Reactions: No Reported Reaction Type of Cardiac Device: Permanent Pacemaker Device Placement Date:: PACEMAKER NOV 2017. Past Psychological History: No Psychological Hx Reported Smoking Status: Never smoker Past Alcohol Use History: None Reported Past Drug Use History: None Reported - Past Family History Daughter(s) Family Medical History: Deep Vein Thrombosis (DVT) Sister(s) Family Medical History: Cancer Additional Family Medical History / Comment(s): BREAST CANCER Medications and Allergies Home Medications Medication Instructions Recorded Confirmed Type Levothyroxine Sodium [Levoxyl] 175 mcg PO DAILY 10/25/20 02/13/25 History FLUoxetine HCL [PROzac] 10 mg PO DAILY 10/08/24 02/13/25 History Insulin Aspart [NovoLOG Flexpen] 40 units SQ TID-W/MEALS 10/08/24 02/13/25 His tory Insulin Glargine,Hum.rec.anlog 20 units SQ HS 10/08/24 02/13/25 History [Lantus Solostar Pen] Calcium Carbonate [Calcium] 600 mg PO BID 01/28/25 02/13/25 History Acetaminophen Tab [Tylenol] 650 mg PO Q6HR PRN tab 02/05/25 02/13/25 Rx Atorvastatin [Lipitor] 40 mg PO HS #30 tab 02/05/25 02/13/25 Rx Dapagliflozin Propanediol [Farxiga] 10 mg PO DAILY #30 tab 02/05/25 02/13/25 Rx Metoprolol Succinate (ER) [Toprol 25 mg PO HS #30 tab 02/05/25 02/13/25 Rx XL] Metoprolol Succinate (ER) [Toprol 50 mg PO DAILY tab 02/05/25 02/13/25 Rx XL] metOLazone [Zaroxolyn] 2.5 mg PO DAILY #30 tab 02/05/25 02/13/25 Rx Apixaban [Eliquis] 2.5 mg PO BID #60 tab 02/23/25 Rx Ascorbic Acid [Vitamin C] 500 mg PO DAILY #30 tab 02/23/25 Rx Cholecalciferol [Vitamin D3 (125 125 mcg PO DAILY #30 tab 02/23/25 Rx Mcg = 5000 Iu)] Furosemide [Lasix] 40 mg PO BID@0900,1600 tab 02/23/25 Rx Losartan [Cozaar] 12.5 mg PO DAILY 30 Days #15 tab 02/23/25 Rx Zinc Sulfate [Orazinc] 220 mg PO DAILY 15 Days #15 cap 02/23/25 Rx dexAMETHasone 4 mg PO DAILY 3 Days #10 tablet 02/23/25 Rx Allergies Allergy/AdvReac Type Severity Reaction Status Date / Time nitrofurantoin Allergy Rash/Hives Verified 03/07/25 23:29 macrocrystalline [From Macrodantin] phenazopyridine HCl Allergy Rash/Hives Verified 03/07/25 23:29 [From Pyridium] Physical Exam Vitals: Vital Signs Temp Pulse Resp BP Pulse Ox 03/08/25 08:00 63 20 104/50 98 03/08/25 06:33 65 18 108/75 98 03/08/25 04:37 65 18 104/51 97 03/08/25 03:05 61 14 99/50 96 03/08/25 01:07 60 18 97/45 96 03/07/25 23:22 98.4 F 65 22 83/41 93 L Intake and Output 03/07/25 03/08/25 03/08/25 22:59 06:59 14:59 Other: Weight 108.862 kg Results CBC & Chem 7: 03/07/25 23:46 03/08/25 07:05 Labs: Abnormal Lab Results - Last 24 Hours (Table) 03/07/25 03/07/25 03/07/25 Range/Units 23:25 23:46 23:46 WBC 4.41 L (4.50-10.00) 10*3/uL RBC 2.62 L (4.10-5.20) 10*6/uL Hgb 7.9 L (12.0-15.0) g/dL Hct 23.7 L (37.2-46.3) % Plt Count 30 L D (140-440) 10*3/uL Immature Gran # 0.06 H (0.00-0.04) 10*3/uL Lymphocytes # 0.32 L (0.90-5.00) 10*3/uL Monocytes # 0.14 L (0.20-1.00) 10*3/uL Eosinophils # 0.01 L (0.04-0.35) 10*3/uL ABG HCO3 (21-25) mmol/L ABG Total CO2 (19-24) mmol/L ABG O2 Saturation (94-97) % VBG pCO2 (37-51) mmHg Hemoglobin (11.4-16.0) gm/dL Sodium 120 L (137-145) mmol/L Chloride 86 L (98-107) mmol/L BUN 64 H (7-17) mg/dL Creatinine 1.46 H (0.52-1.04) mg/dL Glucose 390 H (74-99) mg/dL POC Glucose (mg/dL) 402 H (70-110) mg/dL Plasma Lactic Acid Jez (0.7-2.0) mmol/L Calcium (8.4-10.2) mg/dL Total Bilirubin 1.4 H (0.2-1.3) mg/dL AST 124 H (14-36) U/L ALT 106 H (4-34) U/L Alkaline Phosphatase 132 H (38-126) U/L Troponin I (0.000-0.034) ng/mL Total Protein 6.0 L (6.3-8.2) g/dL Albumin 2.9 L (3.5-5.0) g/dL Urine Protein (Negative) Urine Glucose (UA) (Negative) Ur Random Sodium (40-220) mmol/L Stool Occult Blood (Negative) Crossmatch 03/07/25 03/07/25 03/08/25 Range/Units 23:46 23:46 01:35 WBC (4.50-10.00) 10*3/uL RBC (4.10-5.20) 10*6/uL Hgb (12.0-15.0) g/dL Hct (37.2-46.3) % Plt Count (140-440) 10*3/uL Immature Gran # (0.00-0.04) 10*3/uL Lymphocytes # (0.90-5.00) 10*3/uL Monocytes # (0.20-1.00) 10*3/uL Eosinophils # (0.04-0.35) 10*3/uL ABG HCO3 (21-25) mmol/L ABG Total CO2 (19-24) mmol/L ABG O2 Saturation (94-97) % VBG pCO2 52 H (37-51) mmHg Hemoglobin (11.4-16.0) gm/dL Sodium (137-145) mmol/L Chloride (98-107) mmol/L BUN (7-17) mg/dL Creatinine (0.52-1.04) mg/dL Glucose (74-99) mg/dL POC Glucose (mg/dL) (70-110) mg/dL Plasma Lactic Acid Jez 3.1 H* (0.7-2.0) mmol/L Calcium (8.4-10.2) mg/dL Total Bilirubin (0.2-1.3) mg/dL AST (14-36) U/L ALT (4-34) U/L Alkaline Phosphatase (38-126) U/L Troponin I 0.087 H* (0.000-0.034) ng/mL Total Protein (6.3-8.2) g/dL Albumin (3.5-5.0) g/dL Urine Protein (Negative) Urine Glucose (UA) (Negative) Ur Random Sodium (40-220) mmol/L Stool Occult Blood (Negative) Crossmatch 03/08/25 03/08/25 03/08/25 Range/Units 02:45 04:23 04:23 WBC (4.50-10.00) 10*3/uL RBC (4.10-5.20) 10*6/uL Hgb (12.0-15.0) g/dL Hct (37.2-46.3) % Plt Count (140-440) 10*3/uL Immature Gran # (0.00-0.04) 10*3/uL Lymphocytes # (0.90-5.00) 10*3/uL Monocytes # (0.20-1.00) 10*3/uL Eosinophils # (0.04-0.35) 10*3/uL ABG HCO3 27 H (21-25) mmol/L ABG Total CO2 28 H (19-24) mmol/L ABG O2 Saturation 97.6 H (94-97) % VBG pCO2 (37-51) mmHg Hemoglobin 7.7 L (11.4-16.0) gm/dL Sodium (137-145) mmol/L Chloride (98-107) mmol/L BUN (7-17) mg/dL Creatinine (0.52-1.04) mg/dL Glucose (74-99) mg/dL POC Glucose (mg/dL) (70-110) mg/dL Plasma Lactic Acid Jez (0.7-2.0) mmol/L Calcium (8.4-10.2) mg/dL Total Bilirubin (0.2-1.3) mg/dL AST (14-36) U/L ALT (4-34) U/L Alkaline Phosphatase (38-126) U/L Troponin I 0.084 H* (0.000-0.034) ng/mL Total Protein (6.3-8.2) g/dL Albumin (3.5-5.0) g/dL Urine Protein (Negative) Urine Glucose (UA) (Negative) Ur Random Sodium (40-220) mmol/L Stool Occult Blood (Negative) Crossmatch See Detail 03/08/25 03/08/25 03/08/25 Range/Units 05:00 05:00 05:00 WBC (4.50-10.00) 10*3/uL RBC (4.10-5.20) 10*6/uL Hgb (12.0-15.0) g/dL Hct (37.2-46.3) % Plt Count (140-440) 10*3/uL Immature Gran # (0.00-0.04) 10*3/uL Lymphocytes # (0.90-5.00) 10*3/uL Monocytes # (0.20-1.00) 10*3/uL Eosinophils # (0.04-0.35) 10*3/uL ABG HCO3 (21-25) mmol/L ABG Total CO2 (19-24) mmol/L ABG O2 Saturation (94-97) % VBG pCO2 (37-51) mmHg Hemoglobin (11.4-16.0) gm/dL Sodium (137-145) mmol/L Chloride (98-107) mmol/L BUN (7-17) mg/dL Creatinine (0.52-1.04) mg/dL Glucose (74-99) mg/dL POC Glucose (mg/dL) (70-110) mg/dL Plasma Lactic Acid Jez 2.1 H* (0.7-2.0) mmol/L Calcium (8.4-10.2) mg/dL Total Bilirubin (0.2-1.3) mg/dL AST (14-36) U/L ALT (4-34) U/L Alkaline Phosphatase (38-126) U/L Troponin I (0.000-0.034) ng/mL Total Protein (6.3-8.2) g/dL Albumin (3.5-5.0) g/dL Urine Protein Trace H (Negative) Urine Glucose (UA) Trace H (Negative) Ur Random Sodium <20 L (40-220) mmol/L Stool Occult Blood (Negative) Crossmatch 03/08/25 03/08/25 03/08/25 Range/Units 05:31 07:05 07:05 WBC (4.50-10.00) 10*3/uL RBC (4.10-5.20) 10*6/uL Hgb (12.0-15.0) g/dL Hct (37.2-46.3) % Plt Count (140-440) 10*3/uL Immature Gran # (0.00-0.04) 10*3/uL Lymphocytes # (0.90-5.00) 10*3/uL Monocytes # (0.20-1.00) 10*3/uL Eosinophils # (0.04-0.35) 10*3/uL ABG HCO3 (21-25) mmol/L ABG Total CO2 (19-24) mmol/L ABG O2 Saturation (94-97) % VBG pCO2 (37-51) mmHg Hemoglobin (11.4-16.0) gm/dL Sodium 122 L (137-145) mmol/L Chloride 91 L (98-107) mmol/L BUN 65 H (7-17) mg/dL Creatinine 1.23 H (0.52-1.04) mg/dL Glucose 354 H (74-99) mg/dL POC Glucose (mg/dL) (70-110) mg/dL Plasma Lactic Acid Jez (0.7-2.0) mmol/L Calcium 8.1 L (8.4-10.2) mg/dL Total Bilirubin (0.2-1.3) mg/dL AST (14-36) U/L ALT (4-34) U/L Alkaline Phosphatase (38-126) U/L Troponin I 0.084 H* (0.000-0.034) ng/mL Total Protein (6.3-8.2) g/dL Albumin (3.5-5.0) g/dL Urine Protein (Negative) Urine Glucose (UA) (Negative) Ur Random Sodium (40-220) mmol/L Stool Occult Blood Positive H (Negative) Crossmatch
--- NOTE | 2025-03-08 10:58 | P.NPCON ---
History of Present Illness - Reason for Consult acute renal failure, hyponatremia - History of Present Illness Reason for consultation: Acute kidney injury History of present illness: Patient is a 80-year-old female seen in new consultation for acute kidney injury and hyponatremia. Creatinine on admission was 1.46 and is 1.23 today. Patient has chronic kidney disease stage IIIa with baseline creatinine near 1.2-1.3. She came to the hospital due to generalized weakness going on for about 4 days now. Patient states her oral intake is also been poor for the last few days. She does admit to taking Motrin twice daily. She does wear oxygen at home 6 L. She has history of diabetes. Denies history of coronary artery disease. Sodium level on admission was 120 with blood glucose at 400. Today the sodium is 122 with blood glucose of 354. Chest x-ray does show small pleural effusion and potential pneumonia. Patient tested negative for influenza, RSV and COVID. She is currently on antibiotics. She was also started on IV Lasix 40 mg twice daily this morning. She did receive a fluid bolus on admission. Currently she is off all IV fluids. Home meds noted. I do see metolazone, Lasix, losartan as well as Farxiga on the list. Blood pressure as low as 83/41 on admission and was 104/50 this morning. Vital signs are stable. General: No acute distress. HEENT: Head exam is unremarkable. On nasal cannula. LUNGS: No audible rhonchi or wheezes. HEART: Rate and Rhythm are regular. ABDOMEN: Nontender. EXTREMITITES: No clubbing, cyanosis, o 1+ edema. Past Medical History Past Medical History: Atrial Fibrillation, Diabetes Mellitus, Hearing Disorder / Deafness, Hyperlipidemia, Osteoarthritis (OA), Pneumonia, Sleep Apnea/CPAP/BIPAP, Thyroid Disorder Additional Past Medical History / Comment(s): USES BIPAP, AORTIC VALVE R EPLACEMENT , HX A-FIB WITH PNEUMONIA,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 HAD THYROID AND PARATHYROID REMOVAL. TOTAL LEFT KNEE REPLACEMENT, CATARACT RT EYE, CATARACT LEFT EYE SURGERY ,COLONOSCOPY, TVAR- 11/2018 , Aortic valve replacement 10/2018 Past Anesthesia/Blood Transfusion Reactions: No Reported Reaction Type of Cardiac Device: Permanent Pacemaker Device Placement Date:: PACEMAKER NOV 2017. Past Psychological History: No Psychological Hx Reported Smoking Status: Never smoker Past Alcohol Use History: None Reported Past Drug Use History: None Reported - Past Family History Daughter(s) Family Medical History: Deep Vein Thrombosis (DVT) Sister(s) Family Medical History: Cancer Additional Family Medical History / Comment(s): BREAST CANCER Medications and Allergies Home Medications Medication Instructions Recorded Confirmed Type Levothyroxine Sodium [Levoxyl] 175 mcg PO DAILY 10/25/20 02/13/25 History FLUoxetine HCL [PROzac] 10 mg PO DAILY 10/08/24 02/13/25 History Insulin Aspart [NovoLOG Flexpen] 40 units SQ TID-W/MEALS 10/08/24 02/13/25 History Insulin Glargine,Hum.rec.anlog 20 units SQ HS 10/08/24 02/13/25 History [Lantus Solostar Pen] Calcium Carbonate [Calcium] 600 mg PO BID 01/28/25 02/13/25 History Acetaminophen Tab [Tylenol] 650 mg PO Q6HR PRN tab 02/05/25 02/13/25 Rx Atorvastatin [Lipitor] 40 mg PO HS #30 tab 02/05/25 02/13/25 Rx Dapagliflozin Propanediol [Farxiga] 10 mg PO DAILY #30 tab 02/05/25 02/13/25 Rx Metoprolol Succinate (ER) [Toprol 25 mg PO HS #30 tab 02/05/25 02/13/25 Rx XL] Metoprolol Succinate (ER) [Toprol 50 mg PO DAILY tab 02/05/25 02/13/25 Rx XL] metOLazone [Zaroxolyn] 2.5 mg PO DAILY #30 tab 02/05/25 02/13/25 Rx Apixaban [Eliquis] 2.5 mg PO BID #60 tab 02/23/25 Rx Ascorbic Acid [Vitamin C] 500 mg PO DAILY #30 tab 02/23/25 Rx Cholecalciferol [Vitamin D3 (125 125 mcg PO DAILY #30 tab 02/23/25 Rx Mcg = 5000 Iu)] Furosemide [Lasix] 40 mg PO BID@0900,1600 tab 02/23/25 Rx Losartan [Cozaar] 12.5 mg PO DAILY 30 Days #15 tab 02/23/25 Rx Zinc Sulfate [Orazinc] 220 mg PO DAILY 15 Days #15 cap 02/23/25 Rx dexAMETHasone 4 mg PO DAILY 3 Days #10 tablet 02/23/25 Rx Allergies Allergy/AdvReac Type Severity Reaction Status Date / Time nitrofurantoin Allergy Rash/Hives Verified 03/07/25 23:29 macrocrystalline [From Macrodantin] phenazopyridine HCl Allergy Rash/Hives Verified 03/07/25 23:29 [From Pyridium] Physical Exam Vitals: Vital Signs Temp Pulse Resp BP Pulse Ox 03/08/25 08:00 63 20 104/50 98 03/08/25 06:33 65 18 108/75 98 03/08/25 04:37 65 18 104/51 97 03/08/25 03:05 61 14 99/50 96 03/08/25 01:07 60 18 97/45 96 03/07/25 23:22 98.4 F 65 22 83/41 93 L Intake and Output 03/07/25 03/08/25 03/08/25 22:59 06:59 14:59 Other: Weight 108.862 kg Results - Lab Results Most recent lab results ABG pH 7.43 (7.35-7.45) 03/08/25 02:45 ABG pCO2 40 mmHg (35-45) 03/08/25 02:45 ABG pO2 83 mmHg (83-108) 03/08/25 02:45 ABG HCO3 27 mmol/L (21-25) H 03/08/25 02:45 ABG O2 Saturation 97.6 % (94-97) H 03/08/25 02:45 Calcium 8.1 mg/dL (8.4-10.2) L 03/08/25 07:05 Phosphorus 2.9 mg/dL (2.5-4.5) 03/07/25 23:49 Magnesium 2.0 mg/dL (1.6-2.3) 03/08/25 07:05 03/07/25 23:46 03/08/25 07:05 Assessment and Plan Plan: Assessment: 1. Acute kidney injury secondary to ATN secondary to hypotension. Also concern for cardiorenal syndrome. Creatinine 1.46 on admission and is 1.23 today. 2. Chronic kidney disease stage IIIa with baseline creatinine 1.2-1.3 secondary to diabetic kidney disease. 3. Volume overload. 4. Hyponatremia, hypervolemic. Also component of hypertonicity from hyperglycemia. Corrected sodium on admission was near 125. Urine sodium less than 20 and urine osmolality 417. 5. Diabetes mellitus. 6. Anemia. Rule out iron deficiency. Questionable GI bleed. Stool for occult blood positive. 7. Acute on chronic systolic CHF ejection fraction of 40 to 45% with severe pulmonary hypertension, moderate tricuspid regurgitation. Plan: Maintain IV Lasix. Blood glucose control. Check iron studies. Hold Cozaar as blood pressure is on the lower end. Avoid nephrotoxins. Continue to monitor renal function and urine output. Thank you for the consultation. I will continue to follow the patient with you during her hospital stay.
--- NOTE | 2025-03-08 11:01 | P.CONS ---
History of Present Illness - Reason for Consult Consult date: 03/08/25 wound care - History of Present Illness This is a 80-year-old patient with history of diabetes who presents with a stage II pressure ulcer to the sacrum. Patient has slough and nonviable tissue present. Minimal granulation noted. Review Of Systems: Constitutional: No fever, no chills, no night sweats. No weight change. No weakness, fatigue or lethargy. No daytime sleepiness. Integumentary:reports wounds, no lesions. No rash or pruritus. No unusual bruising. No change in hair or nails. Physical exam: General Appearance: Alert, cooperative, no distress, appears stated age. Skin: See HPI all other Skin color, texture, tugor normal, no rashes or lesions. Neurologic: Alert oriented x3 Assessment: 1. Stage II pressure ulcer sacrum 2. Diabetes with skin ulceration Plan: 1. Apply honey gel and bordered foam to the site. Turn patient every 2 hours. Utilize a offloading mattress and offloading cushion for sitting. Patient may benefit from advanced wound care and wound care center. We be happy to see them upon discharge. Thank for the consultation any questions please contact the wound care center. DNP note has been reviewed and discussed with Dr. Zhang and the impression and plan of care has been directed as dictated. 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 HAD THYROID AND PARATHYROID REMOVAL. TOTAL LEFT KNEE REPL ACEMENT, CATARACT RT EYE, CATARACT LEFT EYE SURGERY ,COLONOSCOPY, TVAR-11/2018 , Aortic valve replacement 10/2018 Past Anesthesia/Blood Transfusion Reactions: No Reported Reaction Type of Cardiac Device: Permanent Pacemaker Device Placement Date:: PACEMAKER NOV 2017. Past Psychological History: No Psychological Hx Reported Smoking Status: Never smoker Past Alcohol Use History: None Reported Past Drug Use History: None Reported - Past Family History Daughter(s) Family Medical History: Deep Vein Thrombosis (DVT) Sister(s) Family Medical History: Cancer Additional Family Medical History / Comment(s): BREAST CANCER Medications and Allergies Home Medications Medication Instructions Recorded Confirmed Type Levothyroxine Sodium [Levoxyl] 175 mcg PO DAILY 10/25/20 02/13/25 History FLUoxetine HCL [PROzac] 10 mg PO DAILY 10/08/24 02/13/25 History Insulin Aspart [NovoLOG Flexpen] 40 units SQ TID-W/MEALS 10/08/24 02/13/25 History Insulin Glargine,Hum.rec.anlog 20 units SQ HS 10/08/24 02/13/25 History [Lantus Solostar Pen] Calcium Carbonate [Calcium] 600 mg PO BID 01/28/25 02/13/25 History Acetaminophen Tab [Tylenol] 650 mg PO Q6HR PRN tab 02/05/25 02/13/25 Rx Atorvastatin [Lipitor] 40 mg PO HS #30 tab 02/05/25 02/13/25 Rx Dapagliflozin Propanediol [Farxiga] 10 mg PO DAILY #30 tab 02/05/25 02/13/25 Rx Metoprolol Succinate (ER) [Toprol 25 mg PO HS #30 tab 02/05/25 02/13/25 Rx XL] Metoprolol Succinate (ER) [Toprol 50 mg PO DAILY tab 02/05/25 02/13/25 Rx XL] metOLazone [Zaroxolyn] 2.5 mg PO DAILY #30 tab 02/05/25 02/13/25 Rx Apixaban [Eliquis] 2.5 mg PO BID #60 tab 02/23/25 Rx Ascorbic Acid [Vitamin C] 500 mg PO DAILY #30 tab 02/23/25 Rx Cholecalciferol [Vitamin D3 (125 125 mcg PO DAILY #30 tab 02/23/25 Rx Mcg = 5000 Iu)] Furosemide [Lasix] 40 mg PO BID@0900,1600 tab 02/23/25 Rx Losartan [Cozaar] 12.5 mg PO DAILY 30 Days #15 tab 02/23/25 Rx Zinc Sulfate [Orazinc] 220 mg PO DAILY 15 Days #15 cap 02/23/25 Rx dexAMETHasone 4 mg PO DAILY 3 Days #10 tablet 02/23/25 Rx Allergies Allergy/AdvReac Type Severity Reaction Status Date / Time nitrofurantoin Allergy Rash/Hives Verified 03/07/25 23:29 macrocrystalline [From Macrodantin] phenazopyridine HCl Allergy Rash/Hives Verified 03/07/25 23:29 [From Pyridium] Physical Exam Vitals: Vital Signs Temp Pulse Resp BP Pulse Ox 03/08/25 08:00 63 20 104/50 98 03/08/25 06:33 65 18 108/75 98 03/08/25 04:37 65 18 104/51 97 03/08/25 03:05 61 14 99/50 96 03/08/25 01:07 60 18 97/45 96 03/07/25 23:22 98.4 F 65 22 83/41 93 L Intake and Output 03/07/25 03/08/25 03/08/25 22:59 06:59 14:59 Other: Weight 108.862 kg Results CBC & Chem 7: 03/08/25 09:50 03/08/25 07:05 Labs: Abnormal Lab Results - Last 24 Hours (Table) 03/07/25 03/07/25 03/07/25 Range/Units 23:25 23:46 23:46 WBC 4.41 L (4.50-10.00) 10*3/uL RBC 2.62 L (4.10-5.20) 10*6/uL Hgb 7.9 L (12.0-15.0) g/dL Hct 23.7 L (37.2-46.3) % Plt Count 30 L D (140-440) 10*3/uL Immature Gran # 0.06 H (0.00-0.04) 10*3/uL Lymphocytes # 0.32 L (0.90-5.00) 10*3/uL Monocytes # 0.14 L (0.20-1.00) 10*3/uL Eosinophils # 0.01 L (0.04-0.35) 10*3/uL ABG HCO3 (21-25) mmol/L ABG Total CO2 (19-24) mmol/L ABG O2 Saturation (94-97) % VBG pCO2 (37-51) mmHg Hemoglobin (11.4-16.0) gm/dL Sodium 120 L (137-145) mmol/L Chloride 86 L (98-107) mmol/L BUN 64 H (7-17) mg/dL Creatinine 1.46 H (0.52-1.04) mg/dL Glucose 390 H (74-99) mg/dL POC Glucose (mg/dL) 402 H (70-110) mg/dL Plasma Lactic Acid Jez (0.7-2.0) mmol/L Calcium (8.4-10.2) mg/dL Total Bilirubin 1.4 H (0.2-1.3) mg/dL AST 124 H (14-36) U/L ALT 106 H (4-34) U/L Alkaline Phosphatase 132 H (38-126) U/L Troponin I (0.000-0.034) ng/mL Total Protein 6.0 L (6.3-8.2) g/dL Albumin 2.9 L (3.5-5.0) g/dL Urine Protein (Negative) Urine Glucose (UA) (Negative) Ur Random Sodium (40-220) mmol/L Stool Occult Blood (Negative) Crossmatch 03/07/25 03/07/25 03/08/25 Range/Units 23:46 23:46 01:35 WBC (4.50-10.00) 10*3/uL RBC (4.10-5.20) 10*6/uL Hgb (12.0-15.0) g/dL Hct (37.2-46.3) % Plt Count (140-440) 10*3/uL Immature Gran # (0.00-0.04) 10*3/uL Lymphocytes # (0.90-5.00) 10*3/uL Monocytes # (0.20-1.00) 10*3/uL Eosinophils # (0.04-0.35) 10*3/uL ABG HCO3 (21-25) mmol/L ABG Total CO2 (19-24) mmol/L ABG O2 Saturation (94-97) % VBG pCO2 52 H (37-51) mmHg Hemoglobin (11.4-16.0) gm/dL Sodium (137-145) mmol/L Chloride (98-107) mmol/L BUN (7-17) mg/dL Creatinine (0.52-1.04) mg/dL Glucose (74-99) mg/dL POC Glucose (mg/dL) (70-110) mg/dL Plasma Lactic Acid Jez 3.1 H* (0.7-2.0) mmol/L Calcium (8.4-10.2) mg/dL Total Bilirubin (0.2-1.3) mg/dL AST (14-36) U/L ALT (4-34) U/L Alkaline Phosphatase (38-126) U/L Troponin I 0.087 H* (0.000-0.034) ng/mL Total Protein (6.3-8.2) g/dL Albumin (3.5-5.0) g/dL Urine Protein (Negative) Urine Glucose (UA) (Negative) Ur Random Sodium (40-220) mmol/L Stool Occult Blood (Negative) Crossmatch 03/08/25 03/08/25 03/08/25 Range/Units 02:45 04:23 04:23 WBC (4.50-10.00) 10*3/uL RBC (4.10-5.20) 10*6/uL Hgb (12.0-15.0) g/dL Hct (37.2-46.3) % Plt Count (140-440) 10*3/uL Immature Gran # (0.00-0.04) 10*3/uL Lymphocytes # (0.90-5.00) 10*3/uL Monocytes # (0.20-1.00) 10*3/uL Eosinophils # (0.04-0.35) 10*3/uL ABG HCO3 27 H (21-25) mmol/L ABG Total CO2 28 H (19-24) mmol/L ABG O2 Saturation 97.6 H (94-97) % VBG pCO2 (37-51) mmHg Hemoglobin 7.7 L (11.4-16.0) gm/dL Sodium (137-145) mmol/L Chloride (98-107) mmol/L BUN (7-17) mg/dL Creatinine (0.52-1.04) mg/dL Glucose (74-99) mg/dL POC Glucose (mg/dL) (70-110) mg/dL Plasma Lactic Acid Jez (0.7-2.0) mmol/L Calcium (8.4-10.2) mg/dL Total Bilirubin (0.2-1.3) mg/dL AST (14-36) U/L ALT (4-34) U/L Alkaline Phosphatase (38-126) U/L Troponin I 0.084 H* (0.000-0.034) ng/mL Total Protein (6.3-8.2) g/dL Albumin (3.5-5.0) g/dL Urine Protein (Negative) Urine Glucose (UA) (Negative) Ur Random Sodium (40-220) mmol/L Stool Occult Blood (Negative) Crossmatch See Detail 03/08/25 03/08/25 03/08/25 Range/Units 05:00 05:00 05:00 WBC (4.50-10.00) 10*3/uL RBC (4.10-5.20) 10*6/uL Hgb (12.0-15.0) g/dL Hct (37.2-46.3) % Plt Count (140-440) 10*3/uL Immature Gran # (0.00-0.04) 10*3/uL Lymphocytes # (0.90-5.00) 10*3/uL Monocytes # (0.20-1.00) 10*3/uL Eosinophils # (0.04-0.35) 10*3/uL ABG HCO3 (21-25) mmol/L ABG Total CO2 (19-24) mmol/L ABG O2 Saturation (94-97) % VBG pCO2 (37-51) mmHg Hemoglobin (11.4-16.0) gm/dL Sodium (137-145) mmol/L Chloride (98-107) mmol/L BUN (7-17) mg/dL Creatinine (0.52-1.04) mg/dL Glucose (74-99) mg/dL POC Glucose (mg/dL) (70-110) mg/dL Plasma Lactic Acid Jez 2.1 H* (0.7-2.0) mmol/L Calcium (8.4-10.2) mg/dL Total Bilirubin (0.2-1.3) mg/dL AST (14-36) U/L ALT (4-34) U/L Alkaline Phosphatase (38-126) U/L Troponin I (0.000-0.034) ng/mL Total Protein (6.3-8.2) g/dL Albumin (3.5-5.0) g/dL Urine Protein Trace H (Negative) Urine Glucose (UA) Trace H (Negative) Ur Random Sodium <20 L (40-220) mmol/L Stool Occult Blood (Negative) Crossmatch 03/08/25 03/08/25 03/08/25 Range/Units 05:31 07:05 07:05 WBC (4.50-10.00) 10*3/uL RBC (4.10-5.20) 10*6/uL Hgb (12.0-15.0) g/dL Hct (37.2-46.3) % Plt Count (140-440) 10*3/uL Immature Gran # (0.00-0.04) 10*3/uL Lymphocytes # (0.90-5.00) 10*3/uL Monocytes # (0.20-1.00) 10*3/uL Eosinophils # (0.04-0.35) 10*3/uL ABG HCO3 (21-25) mmol/L ABG Total CO2 (19-24) mmol/L ABG O2 Saturation (94-97) % VBG pCO2 (37-51) mmHg Hemoglobin (11.4-16.0) gm/dL Sodium 122 L (137-145) mmol/L Chloride 91 L (98-107) mmol/L BUN 65 H (7-17) mg/dL Creatinine 1.23 H (0.52-1.04) mg/dL Glucose 354 H (74-99) mg/dL POC Glucose (mg/dL) (70-110) mg/dL Plasma Lactic Acid Jez (0.7-2.0) mmol/L Calcium 8.1 L (8.4-10.2) mg/dL Total Bilirubin (0.2-1.3) mg/dL AST (14-36) U/L ALT (4-34) U/L Alkaline Phosphatase (38-126) U/L Troponin I 0.084 H* (0.000-0.034) ng/mL Total Protein (6.3-8.2) g/dL Albumin (3.5-5.0) g/dL Urine Protein (Negative) Urine Glucose (UA) (Negative) Ur Random Sodium (40-220) mmol/L Stool Occult Blood Positive H (Negative) Crossmatch 03/08/25 Range/Units 09:50 WBC (4.50-10.00) 10*3/uL RBC 2.55 L (4.10-5.20) 10*6/uL Hgb 7.7 L (12.0-15.0) g/dL Hct 23.6 L (37.2-46.3) % Plt Count 39 L (140-440) 10*3/uL Immature Gran # (0.00-0.04) 10*3/uL Lymphocytes # (0.90-5.00) 10*3/uL Monocytes # (0.20-1.00) 10*3/uL Eosinophils # (0.04-0.35) 10*3/uL ABG HCO3 (21-25) mmol/L ABG Total CO2 (19-24) mmol/L ABG O2 Saturation (94-97) % VBG pCO2 (37-51) mmHg Hemoglobin (11.4-16.0) gm/dL Sodium (137-145) mmol/L Chloride (98-107) mmol/L BUN (7-17) mg/dL Creatinine (0.52-1.04) mg/dL Glucose (74-99) mg/dL POC Glucose (mg/dL) (70-110) mg/dL Plasma Lactic Acid Jez (0.7-2.0) mmol/L Calcium (8.4-10.2) mg/dL Total Bilirubin (0.2-1.3) mg/dL AST (14-36) U/L ALT (4-34) U/L Alkaline Phosphatase (38-126) U/L Troponin I (0.000-0.034) ng/mL Total Protein (6.3-8.2) g/dL Albumin (3.5-5.0) g/dL Urine Protein (Negative) Urine Glucose (UA) (Negative) Ur Random Sodium (40-220) mmol/L Stool Occult Blood (Negative) Crossmatch Assessment and Plan (1) Pressure ulcer of sacral region, stage 2 Current Visit: Yes Status: Acute Code(s): L89.152 - PRESSURE ULCER OF SACRAL REGION, STAGE 2 SNOMED Code(s): 85359380962628 (2) Type 2 diabetes mellitus with other skin ulcer Current Visit: Yes Status: Acute Code(s): E11.622 - TYPE 2 DIABETES MELLITUS WITH OTHER SKIN ULCER; L98.499 - NON-PRESSURE CHRONIC ULCER OF SKIN OF SITES W UNSP SEVERITY SNOMED Code(s): 641797503210947
[2025-03-08] MEDS: FUROSEMIDE 10 MG/ML 4 ML VIAL IV SCH (11:21)
[2025-03-08] MEDS: SODIUM FERRIC GLUCONAT-SUCROSE 125 MG in SODIUM CHLORIDE 0.9% 100 ML IVPB ONE (11:28)
[2025-03-08] MEDS: traMADol 50 MG TAB PO PRN (11:46)
--- NOTE | 2025-03-08 11:47 | P.CRDCN ---
History of Present Illness Consult date: 03/08/25 Consult reason: congestive heart failure History of present illness: This is a 80-year-old female patient of Dr. Watson with past medical history of TAVR in 2018 with open aortic valve replacement, MVR and tricuspid valve repair done at [facility] on 05/20/2024, paroxysmal atrial fibrillation, hypertension, dyslipidemia, diabetes mellitus type 2 insulin requiring, hypothyroidism, coronary artery disease with previous stent, history of left pleural effusion status post thoracentesis with removal of 850 cc 10/08/2024. We have been asked to evaluate the patient for CHF. Patient's last office visit with Dr. Watson was 06/24/2020 for. Patient has had multiple hospitalizations since that time including most recently 02/13 - 02/23/2025 at which time she was seen by cardiology. She was hospitalized at that time for COVID-19 and treated for acute on chronic systolic heart failure. At some point, patient's Eliquis was decreased to 2.5 mg twice daily. She has had positive occult blood in the past with anemia and underwent colonoscopy in October with Dr. Hines that found tubular adenoma x 2 without active bleeding. Patient gives history that she came into the hospital because she did not have any energy, no interest in anything and was sleeping a lot. She also complains of shortness of breath with minimal activity, no orthopnea. Patient is poor historian. Blood pressure 121/62, heart rates in the 60s, pulse ox 98% on 6 L nasal cannula. Patient was also on CPAP earlier. Patient has been started on IV Lasix 40 mg every 12 hours. -EKG: Atrial paced rhythm. -Chest x-ray: Persistent left basilar airspace disease atelectasis or pneumonia. Persistent small left pleural effusion. -Gallbladder ultrasound: Gallbladder not visualized. Right kidney not visualized. -CT head: No acute intracranial process. -Laboratory studies: Hemoglobin 7.9 repeat 7.7, platelet count 39, WBC 5.0. Sodium 122, potassium 4.5, BUN 65 and creatinine improved from 1.46-1.23. Lactic acid 3.1 repeat 2.0. Troponins 0.087, 0.084, 0.084. Urinalysis negative for infection. Stool for occult blood positive. Acetone negative. Cepheid viral panel not detected. -Home cardiac medications: Eliquis 2.5 mg twice daily, atorvastatin 40 mg at b edtime, Farxiga 10 mg daily, Lasix 40 mg twice daily, losartan 12.5 mg daily, metolazone 2.5 mg daily, metoprolol succinate 50 mg in the morning and 25 mg at bedtime. -Echocardiogram performed 01/30/2025 at [facility] revealed suboptimal study, EF 40 to 45%, severe pulmonary hypertension. -Cardiac PCI performed 01/05/2021 to the mid diagonal 1 and ostial PDA. -Cardiovascular surgery with TAVR 11/04/2018. -Cardiovascular surgery with tissue AVR, tissue MVR, tricuspid valve repair 05/20/2024 at [facility]. Review Of Systems: At the time of my exam: CONSTITUTIONAL: Denies fever or chills. HEENT: Denies blurred vision, vision changes, or eye pain. Denies hemoptysis CARDIOVASCULAR: Denies chest pain. Denies orthopnea. Denies PND. Denies palpitations RESPIRATORY: Denies shortness of breath. GASTROINTESTINAL: Denies abdominal pain. Denies nausea or vomiting. HEMATOLOGIC: Denies bleeding disorders. GENITOURINARY: Denies any blood in urine. SKIN: Denies puritis. Denies rash. Physical examination: Gen: This is a 80-year-old morbidly obese female in no acute respiratory distress. VS: reviewed HEENT: Head is atraumatic, normocephalic. Pupils equal, round. Sclerae is anicteric. NECK: Supple. No JVD. LUNGS: Clear to auscultation. No wheezes or rhonchi. No intercostal retractions. HEART: Regular rate and rhythm. No murmur. ABDOMEN: Soft No tenderness. EXTREMITIES: No pedal edema. No calf tenderness. NEUROLOGICAL: Patient is awake, alert but confused. Assessment: Generalized weakness most likely secondary to combination of hyponatremia, acute kidney injury, recent COVID Hyponatremia Acute kidney injury Recent COVID Pancytopenia Rule out sepsis Metabolic encephalopathy Chronic heart failure with EF of 40 to 45% Valvular heart disease status post TAVR status post open aortic valve replacement, mitral valve replacement, tricuspid valve repair in May 2024 Paroxysmal atrial fibrillation, paced rhythm Hypertension Dyslipidemia Diabetes mellitus type 2 insulin requiring Hypothyroidism Coronary artery disease with previous stent to the mid diagonal 1 and ostial PDA Plan: Resume patient's home cardiac medications with the following changes Would not advise IV Lasix but would start patient on oral Lasix 40 mg and decrease frequency to daily starting tomorrow Hold Eliquis due to occult blood positive and low hemoglobin Start patient on subcu heparin Hold on blood transfusion at this time and update attending No need to repeat echocardiogram Further recommendations to follow based upon clinical course Thank you kindly for this consultation. Nurse practitioner note has been reviewed, I agree with documented findings and plan of care. Patient was seen and examined. 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 HAD THYROID AND PARATHYROID REMOVAL. TOTAL LEFT KNEE REPLACEMENT, CATARACT RT EYE, CATARACT LEFT EYE SURGERY ,COLONOSCOPY, TVAR- 11/2018 , Aortic valve replacement 10/2018 Past Anesthesia/Blood Transfusion Reactions: No Reported Reaction Type of Cardiac Device: Permanent Pacemaker Device Placement Date:: PACEMAKER NOV 2017. Past Psychological History: No Psychological Hx Reported Smoking Status: Never smoker Past Alcohol Use History: None Reported Past Drug Use History: None Reported - Past Family History Daughter(s) Family Medical History: Deep Vein Thrombosis (DVT) Sister(s) Family Medical History: Cancer Additional Family Medical History / Comment(s): BREAST CANCER Medications and Allergies Home Medications Medication Instructions Recorded Confirmed Type Levothyroxine Sodium [Levoxyl] 175 mcg PO DAILY 10/25/20 02/13/25 History FLUoxetine HCL [PROzac] 10 mg PO DAILY 10/08/24 02/13/25 History Insulin Aspart [NovoLOG Flexpen] 40 units SQ TID-W/MEALS 10/08/24 02/13/25 History Insulin Glargine,Hum.rec.anlog 20 units SQ HS 10/08/24 02/13/25 History [Lantus Solostar Pen] Calcium Carbonate [Calcium] 600 mg PO BID 01/28/25 02/13/25 History Acetaminophen Tab [Tylenol] 650 mg PO Q6HR PRN tab 02/05/25 02/13/25 Rx Atorvastatin [Lipitor] 40 mg PO HS #30 tab 02/05/25 02/13/25 Rx Dapagliflozin Propanediol [Farxiga] 10 mg PO DAILY #30 tab 02/05/25 02/13/25 Rx Metoprolol Succinate (ER) [Toprol 25 mg PO HS #30 tab 02/05/25 02/13/25 Rx XL] Metoprolol Succinate (ER) [Toprol 50 mg PO DAILY tab 02/05/25 02/13/25 Rx XL] metOLazone [Zaroxolyn] 2.5 mg PO DAILY #30 tab 02/05/25 02/13/25 Rx Ascorbic Acid [Vitamin C] 500 mg PO DAILY #30 tab 02/23/25 Rx Cholecalciferol [Vitamin D3 (125 125 mcg PO DAILY #30 tab 02/23/25 Rx Mcg = 5000 Iu)] Furosemide [Lasix] 40 mg PO BID@0900,1600 tab 02/23/25 Rx Losartan [Cozaar] 12.5 mg PO DAILY 30 Days #15 tab 02/23/25 Rx Zinc Sulfate [Orazinc] 220 mg PO DAILY 15 Days #15 cap 02/23/25 Rx Apixaban [Eliquis] 5 mg PO BID 03/08/25 03/08/25 History Allergies Allergy/AdvReac Type Severity Reaction Status Date / Time nitrofurantoin Allergy Rash/Hives Verified 03/08/25 11:42 macrocrystalline [From Macrodantin] phenazopyridine HCl Allergy Rash/Hives Verified 03/08/25 11:42 [From Pyridium] Physical Exam Vitals: Vital Signs Temp Pulse Resp BP Pulse Ox 03/08/25 08:00 63 20 104/50 98 03/08/25 06:33 65 18 108/75 98 03/08/25 04:37 65 18 104/51 97 03/08/25 03:05 61 14 99/50 96 03/08/25 01:07 60 18 97/45 96 03/07/25 23:22 98.4 F 65 22 83/41 93 L Intake and Output 03/07/25 03/08/25 03/08/25 22:59 06:59 14:59 Other: Weight 108.862 kg Results 03/08/25 09:50 03/08/25 07:05 Cardiac Enzymes 03/07/25 03/07/25 03/08/25 Range/Units 23:46 23:46 04:23 AST 124 H (14-36) U/L Troponin I 0.087 H* 0.084 H* (0.000-0.034) ng/mL 03/08/25 Range/Units 07:05 AST (14-36) U/L Troponin I 0.084 H* (0.000-0.034) ng/mL Coagulation 03/07/25 Range/Units 23:46 PT 12.3 (10.0-12.5) sec APTT 25.6 (22.0-30.0) sec CBC 03/07/25 Range/Units 23:46 WBC 4.41 L (4.50-10.00) 10*3/uL RBC 2.62 L (4.10-5.20) 10*6/uL Hgb 7.9 L (12.0-15.0) g/dL Hct 23.7 L (37.2-46.3) % Plt Count 30 L D (140-440) 10*3/uL Comprehensive Metabolic Panel 03/07/25 03/08/25 Range/Units 23:46 07:05 Sodium 120 L 122 L (137-145) mmol/L Potassium 4.2 4.5 (3.5-5.1) mmol/L Chloride 86 L 91 L (98-107) mmol/L Carbon Dioxide 27 23 (22-30) mmol/L BUN 64 H 65 H (7-17) mg/dL Creatinine 1.46 H 1.23 H (0.52-1.04) mg/dL Glucose 390 H 354 H (74-99) mg/dL Calcium 8.4 8.1 L (8.4-10.2) mg/dL AST 124 H (14-36) U/L ALT 106 H (4-34) U/L Alkaline Phosphatase 132 H (38-126) U/L Total Protein 6.0 L (6.3-8.2) g/dL Albumin 2.9 L (3.5-5.0) g/dL Current Medications Generic Name Dose Route Start Last Admin Trade Name Freq PRN Reason Stop Dose Admin Al Hydroxide/Mg Hydroxide 15 ml 03/08/25 05:10 Mag Hydrox/Al Hydrox/Simeth 30 Ml Cup PO Q6HR PRN Indigestion Calcium Carbonate/Glycine 1,000 mg 03/08/25 05:10 Calcium Carbonate 500 Mg Chewable PO Q4HR PRN Dyspepsia Vancomycin HCl 1,750 mg/ 500 mls @ 167 mls/hr 03/09/25 06:00 Sodium Chloride IVPB Q48H LILIYA Naloxone HCl 0.2 mg 03/08/25 05:10 Naloxone 0.4 Mg/Ml 1 Ml Vial IV Q2M PRN Opioid Reversal Ondansetron HCl 4 mg 03/08/25 05:10 Ondansetron 4 Mg/2 Ml Vial IVP Q8HR PRN Nausea And Vomiting Pantoprazole Sodium 40 mg 03/08/25 09:00 Pantoprazole 40 Mg/10 Ml Vial IV DAILY LILIYA Tramadol HCl 50 mg 03/08/25 05:10 Tramadol 50 Mg Tab PO Q6H PRN Moderate Pain (Scale 4 to 6) Intake and Output 03/07/25 03/08/25 03/08/25 22:59 06:59 14:59 Other: Weight 108.862 kg 03/07/25 23:46 03/08/25 07:05
[2025-03-08 12:15] LABS: Glucose,Whole Blood 398 mg/dL (70-110)
[2025-03-08] MEDS: INSULIN LISPRO (HumaLOG) 100 UNIT/ML 10 mL VL SQ SCH ×2 (12:18→12:19)
[2025-03-08 13:49] LABS: Glucose,Whole Blood 342 mg/dL (70-110)
[2025-03-08 14:51] LABS: Glucose,Whole Blood 306 mg/dL (70-110)
[2025-03-08] MEDS ORDERED: HEPARIN SODIUM,PORCINE 5,000 UNIT/ML 1 ML VIAL SQ SCH (16:00)
[2025-03-08 16:13] LABS: % Iron Saturation 16.93 (12.00-45.00)
[2025-03-08 17:05] LABS: Glucose,Whole Blood 257 mg/dL (70-110)
[2025-03-08 20:07] LABS: Glucose,Whole Blood 181 mg/dL (70-110)
[2025-03-08] MEDS: HEPARIN SODIUM,PORCINE 5,000 UNIT/ML 1 ML VIAL SQ SCH (20:25)
[2025-03-08] MEDS: ATORVASTATIN 40 MG TAB PO SCH (20:26)
[2025-03-08] MEDS: METOPROLOL SUCCINATE (ER) 25 MG TAB.ER.24H PO SCH (20:26)
--- NOTE | 2025-03-08 21:33 | P.CONS ---
History of Present Illness - Reason for Consult Consult date: 03/08/25 Infected ulcer Requesting physician: Thalia Aviles - Chief Complaint Weakness x few days - History of Present Illness Patient is a 80-year-old female with multiple comorbidities including type 2 diabetes mellitus hypertension hyperlipidemia atrial fibrillation coronary artery disease did have TAVR in 2018 subsequently open aortic valve replacement MVR and tricuspid valve repair done at [facility] on 05/20/2024 recently admitted to hospital and treated for COVID-19 pneumonia patient has been brought into the hospital concerning for generalized weakness and not feeling well symptom has been getting worse for last 2 days on arrival of the EMS the patient was noted to be hypotensive and hyperglycemic patient daughter mentioned urine has been mostly concentrated and foul-smelling with patient denies significant abdominal pain no burning or frequency of urine denies any headache or URI symptoms no chest pain did have some shortness of breath no s ignificant cough or sputum production on presentation to the hospital the patient was afebrile no fever Recorded subsequently patient did have mild hypotension not requiring pressor support, mildly hypoxic with O2 sat of 93% currently on CPAP blood work including white count was 4.41 with a left shift BUN and creatinine has been mildly elevated lactic acid was 3.1 liver enzymes mildly elevated urine has been negative influenza RSV COVID testing was negative did have a gallbladder ultrasound which was inconclusive chest x-ray with left basilar airspace disease patient was started on vancomycin and ceftriaxone infectious he was consulted for further management concern for infected wound in this patient apparently has developed a stage II pressure ulcer to the sacral area has been recently noticed by the daughter patient denies significant pain or drainage to the urinary Review of Systems Positive point and negatives has been mentioned in the HPI, complete review of systems was performed and all other systems are negative Past Medical History Past Medical History: Atrial Fibrillation, Diabetes Mellitus, Hearing Disorder / Deafness, Hyperlipidemia, Osteoarthritis (OA), Pneumonia, Sleep Apnea/CPAP/BIPAP, Thyroid Disorder Additional Past Medical History / Comment(s): USES BIPAP, AORTIC VALVE REPLACEMENT , HX A-FIB WITH PNEUMONIA,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 HAD THYROID AND PARATHYROID REMOVAL. TOTAL LEFT KNEE REPLACEMENT, CATARACT RT EYE, CATARACT LEFT EYE SURGERY ,COLONOSCOPY, TVAR- 11/2018 , Aortic valve replacement 10/2018 Past Anesthesia/Blood Transfusion Reactions: No Reported Reaction Type of Cardiac Device: Permanent Pacemaker Device Placement Date:: PACEMAKER NOV 2017. Past Psychological History: No Psychological Hx Reported Smoking Status: Never smoker Past Alcohol Use History: None Reported Past Drug Use History: None Reported - Past Family History Daughter(s) Family Medical History: Deep Vein Thrombosis (DVT) Sister(s) Family Medical History: Cancer Additional Family Medical History / Comment(s): BREAST CANCER Medications and Allergies Home Medications Medication Instructions Recorded Confirmed Type Levothyroxine Sodium [Levoxyl] 175 mcg PO DAILY 10/25/20 03/08/25 History FLUoxetine HCL [PROzac] 10 mg PO DAILY 10/08/24 03/08/25 History Insulin Aspart [NovoLOG Flexpen] 40 units SQ TID-W/MEALS 10/08/24 03/08/25 History Insulin Glargine,Hum.rec.anlog 20 units SQ HS 10/08/24 03/08/25 History [Lantus Solostar Pen] Calcium Carbonate [Calcium] 600 mg PO BID 01/28/25 03/08/25 History Acetaminophen Tab [Tylenol] 650 mg PO Q6HR PRN tab 02/05/25 03/08/25 Rx Atorvastatin [Lipitor] 40 mg PO HS #30 tab 02/05/25 03/08/25 Rx Dapagliflozin Propanediol [Farxiga] 10 mg PO DAILY #30 tab 02/05/25 03/08/25 Rx Metoprolol Succinate (ER) [Toprol 25 mg PO HS #30 tab 02/05/25 03/08/25 Rx XL] Metoprolol Succinate (ER) [Toprol 50 mg PO DAILY tab 02/05/25 03/08/25 Rx XL] metOLazone [Zaroxolyn] 2.5 mg PO DAILY #30 tab 02/05/25 03/08/25 Rx Ascorbic Acid [Vitamin C] 500 mg PO DAILY #30 tab 02/23/25 03/08/25 Rx Cholecalciferol [Vitamin D3 (125 125 mcg PO DAILY #30 tab 02/23/25 03/08/25 Rx Mcg = 5000 Iu)] Furosemide [Lasix] 40 mg PO BID@0900,1600 tab 02/23/25 03/08/25 Rx Losartan [Cozaar] 12.5 mg PO DAILY 30 Days #15 tab 02/23/25 03/08/25 Rx Zinc Sulfate [Orazinc] 220 mg PO DAILY 15 Days #15 cap 02/23/25 03/08/25 Rx Apixaban [Eliquis] 5 mg PO BID 03/08/25 03/08/25 History Allergies Allergy/AdvReac Type Severity Reaction Status Date / Time nitrofurantoin Allergy Rash/Hives Verified 03/08/25 11:42 macrocrystalline [From Macrodantin] phenazopyridine HCl Allergy Rash/Hives Verified 03/08/25 11:42 [From Pyridium] Physical Exam Vitals: Vital Signs Temp Pulse Resp BP Pulse Ox 03/08/25 11:29 60 20 121/62 97 03/08/25 11:00 65 20 121/62 95 03/08/25 08:00 63 20 104/50 98 03/08/25 06:33 65 18 108/75 98 03/08/25 04:37 65 18 104/51 97 03/08/25 03:05 61 14 99/50 96 03/08/25 01:07 60 18 97/45 96 03/07/25 23:22 98.4 F 65 22 83/41 93 L Intake and Output 03/07/25 03/08/25 03/08/25 22:59 06:59 14:59 Other: Weight 108.862 kg GENERAL DESCRIPTION: Elderly female lying in bed, no distress. No tachypnea or accessory muscle of respiration use. HEENT: Shows Pallor , no scleral icterus. Oral mucous membrane is dry. NECK: Trachea central, no thyromegaly. LUNGS: Unlabored breathing. Decreased breath sound at the base HEART: S1, S2, regular rate and rhythm. No loud murmur ABDOMEN: Soft, no tenderness , EXTREMITIES: No edema of feet. SKIN: Stage II pressure ulcer to the sacral area no slough tissue NEUROLOGICAL: The patient is awake, alert, oriented x3, mood and affect normal. Results CBC & Chem 7: 03/08/25 09:50 03/08/25 07:05 Labs: Abnormal Lab Results - Last 24 Hours (Table) 03/07/25 03/07/25 03/07/25 Range/Units 23:25 23:46 23:46 WBC 4.41 L (4.50-10.00) 10*3/uL RBC 2.62 L (4.10-5.20) 10*6/uL Hgb 7.9 L (12.0-15.0) g/dL Hct 23.7 L (37.2-46.3) % Plt Count 30 L D (140-440) 10*3/uL Immature Gran # 0.06 H (0.00-0.04) 10*3/uL Lymphocytes # 0.32 L (0.90-5.00) 10*3/uL Monocytes # 0.14 L (0.20-1.00) 10*3/uL Eosinophils # 0.01 L (0.04-0.35) 10*3/uL ABG HCO3 (21-25) mmol/L ABG Total CO2 (19-24) mmol/L ABG O2 Saturation (94-97) % VBG pCO2 (37-51) mmHg Hemoglobin (11.4-16.0) gm/dL Sodium 120 L (137-145) mmol/L Chloride 86 L (98-107) mmol/L BUN 64 H (7-17) mg/dL Creatinine 1.46 H (0.52-1.04) mg/dL Glucose 390 H (74-99) mg/dL POC Glucose (mg/dL) 402 H (70-110) mg/dL Plasma Lactic Acid Jez (0.7-2.0) mmol/L Calcium (8.4-10.2) mg/dL Total Bilirubin 1.4 H (0.2-1.3) mg/dL AST 124 H (14-36) U/L ALT 106 H (4-34) U/L Alkaline Phosphatase 132 H (38-126) U/L Troponin I (0.000-0.034) ng/mL Total Protein 6.0 L (6.3-8.2) g/dL Albumin 2.9 L (3.5-5.0) g/dL Urine Protein (Negative) Urine Glucose (UA) (Negative) Ur Random Sodium (40-220) mmol/L Stool Occult Blood (Negative) Crossmatch 03/07/25 03/07/25 03/08/25 Range/Units 23:46 23:46 01:35 WBC (4.50-10.00) 10*3/uL RBC (4.10-5.20) 10*6/uL Hgb (12.0-15.0) g/dL Hct (37.2-46.3) % Plt Count (140-440) 10*3/uL Immature Gran # (0.00-0.04) 10*3/uL Lymphocytes # (0.90-5.00) 10*3/uL Monocytes # (0.20-1.00) 10*3/uL Eosinophils # (0.04-0.35) 10*3/uL ABG HCO3 (21-25) mmol/L ABG Total CO2 (19-24) mmol/L ABG O2 Saturation (94-97) % VBG pCO2 52 H (37-51) mmHg Hemoglobin (11.4-16.0) gm/dL Sodium (137-145) mmol/L Chloride (98-107) mmol/L BUN (7-17) mg/dL Creatinine (0.52-1.04) mg/dL Glucose (74-99) mg/dL POC Glucose (mg/dL) (70-110) mg/dL Plasma Lactic Acid Jez 3.1 H* (0.7-2.0) mmol/L Calcium (8.4-10.2) mg/dL Total Bilirubin (0.2-1.3) mg/dL AST (14-36) U/L ALT (4-34) U/L Alkaline Phosphatase (38-126) U/L Troponin I 0.087 H* (0.000-0.034) ng/mL Total Protein (6.3-8.2) g/dL Albumin (3.5-5.0) g/dL Urine Protein (Negative) Urine Glucose (UA) (Negative) Ur Random Sodium (40-220) mmol/L Stool Occult Blood (Negative) Crossmatch 03/08/25 03/08/25 03/08/25 Range/Units 02:45 04:23 04:23 WBC (4.50-10.00) 10*3/uL RBC (4.10-5.20) 10*6/uL Hgb (12.0-15.0) g/dL Hct (37.2-46.3) % Plt Count (140-440) 10*3/uL Immature Gran # (0.00-0.04) 10*3/uL Lymphocytes # (0.90-5.00) 10*3/uL Monocytes # (0.20-1.00) 10*3/uL Eosinophils # (0.04-0.35) 10*3/uL ABG HCO3 27 H (21-25) mmol/L ABG Total CO2 28 H (19-24) mmol/L ABG O2 Saturation 97.6 H (94-97) % VBG pCO2 (37-51) mmHg Hemoglobin 7.7 L (11.4-16.0) gm/dL Sodium (137-145) mmol/L Chloride (98-107) mmol/L BUN (7-17) mg/dL Creatinine (0.52-1.04) mg/dL Glucose (74-99) mg/dL POC Glucose (mg/dL) (70-110) mg/dL Plasma Lactic Acid Jez (0.7-2.0) mmol/L Calcium (8.4-10.2) mg/dL Total Bilirubin (0.2-1.3) mg/dL AST (14-36) U/L ALT (4-34) U/L Alkaline Phosphatase (38-126) U/L Troponin I 0.084 H* (0.000-0.034) ng/mL Total Protein (6.3-8.2) g/dL Albumin (3.5-5.0) g/dL Urine Protein (Negative) Urine Glucose (UA) (Negative) Ur Random Sodium (40-220) mmol/L Stool Occult Blood (Negative) Crossmatch See Detail 03/08/25 03/08/25 03/08/25 Range/Units 05:00 05:00 05:00 WBC (4.50-10.00) 10*3/uL RBC (4.10-5.20) 10*6/uL Hgb (12.0-15.0) g/dL Hct (37.2-46.3) % Plt Count (140-440) 10*3/uL Immature Gran # (0.00-0.04) 10*3/uL Lymphocytes # (0.90-5.00) 10*3/uL Monocytes # (0.20-1.00) 10*3/uL Eosinophils # (0.04-0.35) 10*3/uL ABG HCO3 (21-25) mmol/L ABG Total CO2 (19-24) mmol/L ABG O2 Saturation (94-97) % VBG pCO2 (37-51) mmHg Hemoglobin (11.4-16.0) gm/dL Sodium (137-145) mmol/L Chloride (98-107) mmol/L BUN (7-17) mg/dL Creatinine (0.52-1.04) mg/dL Glucose (74-99) mg/dL POC Glucose (mg/dL) (70-110) mg/dL Plasma Lactic Acid Jez 2.1 H* (0.7-2.0) mmol/L Calcium (8.4-10.2) mg/dL Total Bilirubin (0.2-1.3) mg/dL AST (14-36) U/L ALT (4-34) U/L Alkaline Phosphatase (38-126) U/L Troponin I (0.000-0.034) ng/mL Total Protein (6.3-8.2) g/dL Albumin (3.5-5.0) g/dL Urine Protein Trace H (Negative) Urine Glucose (UA) Trace H (Negative) Ur Random Sodium <20 L (40-220) mmol/L Stool Occult Blood (Negative) Crossmatch 03/08/25 03/08/25 03/08/25 Range/Units 05:31 07:05 07:05 WBC (4.50-10.00) 10*3/uL RBC (4.10-5.20) 10*6/uL Hgb (12.0-15.0) g/dL Hct (37.2-46.3) % Plt Count (140-440) 10*3/uL Immature Gran # (0.00-0.04) 10*3/uL Lymphocytes # (0.90-5.00) 10*3/uL Monocytes # (0.20-1.00) 10*3/uL Eosinophils # (0.04-0.35) 10*3/uL ABG HCO3 (21-25) mmol/L ABG Total CO2 (19-24) mmol/L ABG O2 Saturation (94-97) % VBG pCO2 (37-51) mmHg Hemoglobin (11.4-16.0) gm/dL Sodium 122 L (137-145) mmol/L Chloride 91 L (98-107) mmol/L BUN 65 H (7-17) mg/dL Creatinine 1.23 H (0.52-1.04) mg/dL Glucose 354 H (74-99) mg/dL POC Glucose (mg/dL) (70-110) mg/dL Plasma Lactic Acid Jez (0.7-2.0) mmol/L Calcium 8.1 L (8.4-10.2) mg/dL Total Bilirubin (0.2-1.3) mg/dL AST (14-36) U/L ALT (4-34) U/L Alkaline Phosphatase (38-126) U/L Troponin I 0.084 H* (0.000-0.034) ng/mL Total Protein (6.3-8.2) g/dL Albumin (3.5-5.0) g/dL Urine Protein (Negative) Urine Glucose (UA) (Negative) Ur Random Sodium (40-220) mmol/L Stool Occult Blood Positive H (Negative) Crossmatch 03/08/25 Range/Units 09:50 WBC (4.50-10.00) 10*3/uL RBC 2.55 L (4.10-5.20) 10*6/uL Hgb 7.7 L (12.0-15.0) g/dL Hct 23.6 L (37.2-46.3) % Plt Count 39 L (140-440) 10*3/uL Immature Gran # (0.00-0.04) 10*3/uL Lymphocytes # (0.90-5.00) 10*3/uL Monocytes # (0.20-1.00) 10*3/uL Eosinophils # (0.04-0.35) 10*3/uL ABG HCO3 (21-25) mmol/L ABG Total CO2 (19-24) mmol/L ABG O2 Saturation (94-97) % VBG pCO2 (37-51) mmHg Hemoglobin (11.4-16.0) gm/dL Sodium (137-145) mmol/L Chloride (98-107) mmol/L BUN (7-17) mg/dL Creatinine (0.52-1.04) mg/dL Glucose (74-99) mg/dL POC Glucose (mg/dL) (70-110) mg/dL Plasma Lactic Acid Jez (0.7-2.0) mmol/L Calcium (8.4-10.2) mg/dL Total Bilirubin (0.2-1.3) mg/dL AST (14-36) U/L ALT (4-34) U/L Alkaline Phosphatase (38-126) U/L Troponin I (0.000-0.034) ng/mL Total Protein (6.3-8.2) g/dL Albumin (3.5-5.0) g/dL Urine Protein (Negative) Urine Glucose (UA) (Negative) Ur Random Sodium (40-220) mmol/L Stool Occult Blood (Negative) Crossmatch Assessment and Plan (1) Elevated liver enzymes Current Visit: Yes Status: Acute Code(s): R74.8 - ABNORMAL LEVELS OF OTHER SERUM ENZYMES SNOMED Code(s): 738594907 (2) Pressure ulcer of sacral region, stage 2 Current Visit: Yes Status: Acute Code(s): L89.152 - PRESSURE ULCER OF SACRAL REGION, STAGE 2 SNOMED Code(s): 54341675797712 Plan: 1patient presented hospitalized weakness which is likely multifactorial in this patient who did have hypotension white count is normal but did have a left shift source question abdominal has the patient have elevated liver enzymes though the ultrasound was inconclusive possible left lower lobe pneumonia this patient recently did have COVID-19 pneumonia 2-patient did have a stage II sacral pressure ulcer but no significant cellulitis continue with local wound care as ordered 3-patient to continue with Rocephin and vancomycin while waiting for the culture to finalize Daughter at the bedside question answered We will follow on clinical condition and cultures to further adjust medication if needed Thank you for this consultation we will follow the patient along with you Dictation was produced using [employer] dictation software. please excuse any grammatical, word or spelling errors. Time with Patient: Greater than 30
[2025-03-08] MEDS: AMPICILLIN-SULBACTAM 3 GM in SODIUM CHLORIDE 0.9% 100 ML IVPB SCH (21:52)
[2025-03-09 00:07] LABS: Glucose,Whole Blood 82 mg/dL (70-110)
[2025-03-09] MEDS ORDERED: VANCOMYCIN 1,750 MG in SODIUM CHLORIDE 0.9% 500 ML 500 ML IVPB SCH (06:00)
[2025-03-09 06:37] LABS: ALT 83 U/L (4-34); AST 70 U/L (14-36); African American GFR (CKD) 47 (>60 ml/min/1.73 sqM); Albumin 2.9 g/dL (3.5-5.0); Alkaline Phosphatase 119 U/L (38-126); Anion Gap 9 mmol/L; Blood Urea Nitrogen 63 mg/dL (7-17); Calcium 8.6 mg/dL (8.4-10.2); Carbon Dioxide 27 mmol/L (22-30); Chloride 91 mmol/L (98-107); Glucose 120 mg/dL (74-99); Non-African American GFR(CKD) 41 (>60 ml/min/1.73 sqM); Potassium 3.7 mmol/L (3.5-5.1); Sodium 127 mmol/L (137-145); Total Bilirubin 1.1 mg/dL (0.2-1.3); Total Protein 6.1 g/dL (6.3-8.2)
[2025-03-09 07:00] LABS: Glucose,Whole Blood 127 mg/dL (70-110)
[2025-03-09] MEDS: INSULIN GLARGINE (LANTUS) 100 UNIT/ML SYR SQ SCH (07:10)
[2025-03-09 07:13] LABS: HCT 24.3 % (37.2-46.3); HGB 8.1 g/dL (12.0-15.0); MCH 29.7 pg (27.0-32.0); MCHC 33.3 g/dL (32.0-37.0); RBC 2.73 10*6/uL (4.10-5.20); RDW 16.1 % (11.5-14.5)
[2025-03-09 07:15] LABS: Platelet Count 37 10*3/uL (140-440)
[2025-03-09 08:13] LABS: Lymphocytes # (M) 0.68 k/uL (1.0-4.8); Monocytes # (M) 0.19 k/uL (0-1.0); Neutrophils # (M) 5.33 k/uL (1.3-7.7); Neutrophils % (M) 86 %; Nucleated Red Blood Cells 0 /100 WBC (0-0); Total Cells Counted 100
[2025-03-09 08:14] LABS: Anisocytosis (M) Present; Crenated RBC Present; Poikilocytosis (M) Present; Polychromasia Present
[2025-03-09] MEDS: FUROSEMIDE 40 MG TAB PO SCH (09:55)
--- NOTE | 2025-03-09 10:24 | P.PN ---
Subjective Patient is seen in follow-up for acute kidney injury on chronic kidney disease and hyponatremia. Renal function stable. Sodium level up to 127. Nonoliguric. Was n.p.o. but now on dysphagia 3 chopped diet. Vital signs are stable. General: No acute distress. HEENT: Head exam is unremarkable. On nasal cannula. LUNGS: No audible rhonchi or wheezes. HEART: Rate and Rhythm are regular. ABDOMEN: Nontender. EXTREMITITES: Trace edema. Objective - Vital Signs Vital signs: Vital Signs Temp 97.7 F 03/09/25 04:00 Pulse 98 03/09/25 04:00 Resp 17 03/09/25 04:00 BP 117/48 03/09/25 04:00 Pulse Ox 93 L 03/09/25 00:00 FiO2 Intake & Output 03/08/25 03/09/25 03/09/25 18:59 06:59 18:59 Output Total 1000 400 Balance -1000 -400 Weight 112 kg Output: Urine 1000 400 Other: Voiding Method Indwelling Catheter - Labs CBC & Chem 7: 03/09/25 05:54 03/09/25 05:54 Labs: Abnormal Lab Results - Last 24 Hours (Table) 03/07/25 03/08/25 03/08/25 Range/Units 23:46 09:50 12:13 RBC 2.55 L (4.10-5.20) 10*6/uL Hgb 7.7 L (12.0-15.0) g/dL Hct 23.6 L (37.2-46.3) % Plt Count 39 L (140-440) 10*3/uL Immature Gran # (0.00-0.04) 10*3/uL Lymphocytes # (Manual) (1.0-4.8) k/uL Sodium (137-145) mmol/L Chloride (98-107) mmol/L BUN (7-17) mg/dL Creatinine (0.52-1.04) mg/dL Glucose (74-99) mg/dL POC Glucose (mg/dL) 398 H (70-110) mg/dL Iron 32 L (50-170) UG/DL TIBC 189 L (228-460) UG/DL Transferrin 135.0 L (204.0-354.0) mg/dL Ferritin 856.0 H (10.0-291.0) ng/mL AST (14-36) U/L ALT (4-34) U/L Total Protein (6.3-8.2) g/dL Albumin (3.5-5.0) g/dL 03/08/25 03/08/25 03/08/25 Range/Units 13:46 14:50 17:03 RBC (4.10-5.20) 10*6/uL Hgb (12.0-15.0) g/dL Hct (37.2-46.3) % Plt Count (140-440) 10*3/uL Immature Gran # (0.00-0.04) 10*3/uL Lymphocytes # (Manual) (1.0-4.8) k/uL Sodium (137-145) mmol/L Chloride (98-107) mmol/L BUN (7-17) mg/dL Creatinine (0.52-1.04) mg/dL Glucose (74-99) mg/dL POC Glucose (mg/dL) 342 H 306 H 257 H (70-110) mg/dL Iron (50-170) UG/DL TIBC (228-460) UG/DL Transferrin (204.0-354.0) mg/dL Ferritin (10.0-291.0) ng/mL AST (14-36) U/L ALT (4-34) U/L Total Protein (6.3-8.2) g/dL Albumin (3.5-5.0) g/dL 03/08/25 03/09/25 03/09/25 Range/Units 20:05 05:54 05:54 RBC 2.73 L (4.10-5.20) 10*6/uL Hgb 8.1 L (12.0-15.0) g/dL Hct 24.3 L (37.2-46.3) % Plt Count 37 L (140-440) 10*3/uL Immature Gran # 0.12 H (0.00-0.04) 10*3/uL Lymphocytes # (Manual) 0.68 L (1.0-4.8) k/uL Sodium 127 L (137-145) mmol/L Chloride 91 L (98-107) mmol/L BUN 63 H (7-17) mg/dL Creatinine 1.26 H (0.52-1.04) mg/dL Glucose 120 H (74-99) mg/dL POC Glucose (mg/dL) 181 H (70-110) mg/dL Iron (50-170) UG/DL TIBC (228-460) UG/DL Transferrin (204.0-354.0) mg/dL Ferritin (10.0-291.0) ng/mL AST 70 H (14-36) U/L ALT 83 H (4-34) U/L Total Protein 6.1 L (6.3-8.2) g/dL Albumin 2.9 L (3.5-5.0) g/dL 03/09/25 Range/Units 06:58 RBC (4.10-5.20) 10*6/uL Hgb (12.0-15.0) g/dL Hct (37.2-46.3) % Plt Count (140-440) 10*3/uL Immature Gran # (0.00-0.04) 10*3/uL Lymphocytes # (Manual) (1.0-4.8) k/uL Sodium (137-145) mmol/L Chloride (98-107) mmol/L BUN (7-17) mg/dL Creatinine (0.52-1.04) mg/dL Glucose (74-99) mg/dL POC Glucose (mg/dL) 127 H (70-110) mg/dL Iron (50-170) UG/DL TIBC (228-460) UG/DL Transferrin (204.0-354.0) mg/dL Ferritin (10.0-291.0) ng/mL AST (14-36) U/L ALT (4-34) U/L Total Protein (6.3-8.2) g/dL Albumin (3.5-5.0) g/dL Microbiology - Last 24 Hours (Table) 03/08/25 00:11 Blood Culture Gram Stain - Preliminary Blood Blood Culture - Preliminary Molecular ID Assessment and Plan Plan: Assessment: 1. Acute kidney injury secondary to ATN secondary to hypotension. Also concern for cardiorenal syndrome. Creatinine 1.46 on admission and is 1.26 today. UA fairly benign. 2. Chronic kidney disease stage IIIa with baseline creatinine 1.2-1.3 secondary to diabetic kidney disease. 3. Volume overload. 4. Hyponatremia, hypervolemic. Also component of hypertonicity from hyperglycemia. Improving. Urine sodium less than 20 and urine osmolality 417. 5. Diabetes mellitus. 6. Anemia. Rule out iron deficiency. Questionable GI bleed. Stool for occult blood positive. 7. Acute on chronic systolic CHF ejection fraction of 40 to 45% with severe pulmonary hypertension, moderate tricuspid regurgitation. 8. Enterococcus bacteremia on antibiotics. Plan: Maintain oral Lasix. Blood glucose control. Hold off on IV iron due to active infection. Continue to hold Cozaar as blood pressure is on the lower end. Avoid nephrotoxins. Continue to monitor renal function and urine output. Repeat chest x-ray tomorrow morning.
[2025-03-09 11:39] LABS: Glucose,Whole Blood 167 mg/dL (70-110)
--- NOTE | 2025-03-09 11:54 | P.PN ---
Subjective Progress Note Date: 03/09/25 HPI: This lady is more lethargic today very sleepy on a CPAP at this time. She was admitted with generalized weakness lack of energy but not overt heart failure. She has history of a complex valvular disease with a aortic valve replacement with a tissue valve, mitral valve replacement with a tissue valve and tricuspid valve repair in May 2024 at [facility]. She has paroxysmal atrial fibrillation hypertension hyperlipidemia type 2 diabetes mellitus. She also has history of CAD with previous PCI details unavailable. She has a permanent dual-chamber pacemaker and is currently in paced rhythm. She came in with generalized weakness. This morning she is more lethargic has no significant communication but on a CPAP at this time. Creatinine has gone up modestly. She is on Lasix at 40 mg IV every 12 hours.. PHYSICIAL EXAM: JVD 1 cm no carotid bruit S1-S2 heard normally systolic murmur audible at the base as well as left lower sternal border lungs reveal bilateral air entry abdomen is soft lower extremities reveal trace edema Central nervous system generalized weakness. IMPRESSION: 1. Generalized weakness. 2. Status post multivalve surgery. 3. History of sick sinus syndrome with dual-chamber pacemaker.. 4. Recent COVID infection. 5.. RECOMMENDATIONS: Prognosis is poor overall continue supportive care no aggressive diuresis at this time. Prognosis remains guarded. Objective - Vital Signs Vital signs: Vital Signs Temp 97.7 F 03/09/25 04:00 Pulse 98 03/09/25 04:00 Resp 17 03/09/25 04:00 BP 117/48 03/09/25 04:00 Pulse Ox 93 L 03/09/25 00:00 FiO2 Intake & Output 03/08/25 03/09/25 03/09/25 18:59 06:59 18:59 Output Total 1000 400 Balance -1000 -400 Weight 112 kg Output: Urine 1000 400 Other: Voiding Method Indwelling Catheter - Labs CBC & Chem 7: 03/09/25 05:54 03/09/25 05:54 Labs: Abnormal Lab Results - Last 24 Hours (Table) 03/07/25 03/08/25 03/08/25 Range/Units 23:46 12:13 13:46 RBC (4.10-5.20) 10*6/uL Hgb (12.0-15.0) g/dL Hct (37.2-46.3) % Plt Count (140-440) 10*3/uL Immature Gran # (0.00-0.04) 10*3/uL Lymphocytes # (Manual) (1.0-4.8) k/uL Sodium (137-145) mmol/L Chloride (98-107) mmol/L BUN (7-17) mg/dL Creatinine (0.52-1.04) mg/dL Glucose (74-99) mg/dL POC Glucose (mg/dL) 398 H 342 H (70-110) mg/dL Iron 32 L (50-170) UG/DL TIBC 189 L (228-460) UG/DL Transferrin 135.0 L (204.0-354.0) mg/dL Ferritin 856.0 H (10.0-291.0) ng/mL AST (14-36) U/L ALT (4-34) U/L Total Protein (6.3-8.2) g/dL Albumin (3.5-5.0) g/dL 03/08/25 03/08/25 03/08/25 Range/Units 14:50 17:03 20:05 RBC (4.10-5.20) 10*6/uL Hgb (12.0-15.0) g/dL Hct (37.2-46.3) % Plt Count (140-440) 10*3/uL Immature Gran # (0.00-0.04) 10*3/uL Lymphocytes # (Manual) (1.0-4.8) k/uL Sodium (137-145) mmol/L Chloride (98-107) mmol/L BUN (7-17) mg/dL Creatinine (0.52-1.04) mg/dL Glucose (74-99) mg/dL POC Glucose (mg/dL) 306 H 257 H 181 H (70-110) mg/dL Iron (50-170) UG/DL TIBC (228-460) UG/DL Transferrin (204.0-354.0) mg/dL Ferritin (10.0-291.0) ng/mL AST (14-36) U/L ALT (4-34) U/L Total Protein (6.3-8.2) g/dL Albumin (3.5-5.0) g/dL 03/09/25 03/09/2525 Range/Units 05:54 05:54 06:58 RBC 2.73 L (4.10-5.20) 10*6/uL Hgb 8.1 L (12.0-15.0) g/dL Hct 24.3 L (37.2-46.3) % Plt Count 37 L (140-440) 10*3/uL Immature Gran # 0.12 H (0.00-0.04) 10*3/uL Lymphocytes # (Manual) 0.68 L (1.0-4.8) k/uL Sodium 127 L (137-145) mmol/L Chloride 91 L (98-107) mmol/L BUN 63 H (7-17) mg/dL Creatinine 1.26 H (0.52-1.04) mg/dL Glucose 120 H (74-99) mg/dL POC Glucose (mg/dL) 127 H (70-110) mg/dL Iron (50-170) UG/DL TIBC (228-460) UG/DL Transferrin (204.0-354.0) mg/dL Ferritin (10.0-291.0) ng/mL AST 70 H (14-36) U/L ALT 83 H (4-34) U/L Total Protein 6.1 L (6.3-8.2) g/dL Albumin 2.9 L (3.5-5.0) g/dL 03/09/25 Range/Units 11:37 RBC (4.10-5.20) 10*6/uL Hgb (12.0-15.0) g/dL Hct (37.2-46.3) % Plt Count (140-440) 10*3/uL Immature Gran # (0.00-0.04) 10*3/uL Lymphocytes # (Manual) (1.0-4.8) k/uL Sodium (137-145) mmol/L Chloride (98-107) mmol/L BUN (7-17) mg/dL Creatinine (0.52-1.04) mg/dL Glucose (74-99) mg/dL POC Glucose (mg/dL) 167 H (70-110) mg/dL Iron (50-170) UG/DL TIBC (228-460) UG/DL Transferrin (204.0-354.0) mg/dL Ferritin (10.0-291.0) ng/mL AST (14-36) U/L ALT (4-34) U/L Total Protein (6.3-8.2) g/dL Albumin (3.5-5.0) g/dL Microbiology - Last 24 Hours (Table) 03/08/25 00:11 Blood Culture Gram Stain - Preliminary Blood Blood Culture - Preliminary Molecular ID
[2025-03-09 12:58] LABS: Glucose,Whole Blood 243 mg/dL (70-110)
[2025-03-09 12:58] LABS: Glucose,Whole Blood 212 mg/dL (70-110)
--- NOTE | 2025-03-09 16:20 | P.PN ---
Subjective Progress Note Date: 03/09/25 80-year-old female with history of mitral valve replacement congestive heart failure EF of around 40 to 45% came in with complaints of generalized weakness. Patient is found to be hyponatremic. Patient is on 6 L of oxygen usually uses 4 to 5 L at home. Patient does have history of obstructive sleep apnea for which patient is on BiPAP at home. Patient had no fever or chills patient does not have any leukocytosis patient does not have any complaints of dysuria suprapubic pain urine is essentially within normal limits chest x-ray showed some nonspecific infiltrate not consistent with pneumonia. Will obtain a procalcitonin level patient's BNP is elevated to 8000 patient's previous BNP was 5000. Patient does have bilateral lower extremity pedal edema. Patient does have stage II decubitus ulcers does not appear to be infected. Patient was started on vancomycin probably for that reason in ER. Patient has minimally elevated troponins. 03/09/2025 Patient is evaluated today in follow up in the intensive care unit. Patient remains on antibiotics in the form of IV Unasyn. Her blood culture did come back positive for Enterococcus faecalis. It was repeated today and ID is following. Labs today reveal a white blood cell count of 6.20, hemoglobin 8.1, sodium 127, BUN of 63 creatinine of 1.26. AST and ALT are significantly improved. REVIEW OF SYSTEMS: Unable to complete patient currently on CPAP. PHYSICAL EXAMINATION: GENERAL: The patient is alert and oriented x3,, he is in some respiratory distress without BiPAP. Obese HEENT: Pupils are round and equally reacting to light. EOMI. No scleral icterus. No conjunctival pallor. Normocephalic, atraumatic. No pharyngeal erythema. No thyromegaly. CARDIOVASCULAR: S1 and S2 present. No murmurs, rubs, or gallops. PULMONARY: Chest is clear to auscultation, no wheezing or crackles. ABDOMEN: Soft, nontender, nondistended, normoactive bowel sounds. No palpable organomegaly. MUSCULOSKELETAL: No joint swelling or deformity. EXTREMITIES: No cyanosis, clubbing, bilateral lower extremity pedal edema NEUROLOGICAL: Gross neurological examination did not reveal any focal deficits. SKIN: No rashes. Assessment and plan -Sepsis and bacteremia -Congestive heart failure chronic systolic function with acute exacerbation. - Hypervolemic hyponatremia - Acute on chronic hypoxic respiratory failure secondary to possible pulmonary edema. - Type 2 diabetes mellitus uncontrolled elevated blood sugars - History of atrial fibrillation: Patient is presently rate controlled patient probably has paroxysmal A-fib on Eliquis at home - History of GI bleed in the past presently does not appear to have acute bleed or GI bleed at this time we will give IV iron transfusion will not require any blood transfusion at the time patient is receiving as needed blood transfusions and IV iron transfusions as an outpatient - History of pancytopenia follows with hematology outpatient this is because of the slow GI bleed - History of bioprosthetic aortic valve replacement - Sleep apnea on CPAP machine -Transaminitis likely from sepsis improving Hypothyroidism DVT prophylaxis: Anticoagulation as mentioned above Patient has been transitioned to oral Lasix 40 mg daily Patient is on IV Unasyn with repeat blood cultures pending. ID was consulted for the positive blood cultures. Wound care on for the stage II sacral decubitus ulcer continue with pressure offloading patient will be started on 40 units of Lantus 20 units of Premeal insulin along with sliding scale titration depending on her blood sugars patient received 1 dose of Eliquis which is being held at this time with concerns of GI bleed although patient does not have any significant stools at this time her hemoglobin stayed stable for last 2 to 3 months receives IV iron transfusion as an outpatient Repeat blood work in the morning The impression and plan of care has been dictated by Leti Robertson Nurse Practitioner as directed. Dr. Stefan MD I have performed a history and physical examination and medical decision making of this patient, discussed the same with the dictator, and agree with the dictators assessment and plan as written, documented as a scribe. Based on total visit time, I have performed more than 50% of this visit. Objective - Vital Signs Vital signs: Vital Signs Temp 97.7 F 03/09/25 04:00 Pulse 98 03/09/25 04:00 Resp 17 03/09/25 04:00 BP 117/48 03/09/25 04:00 Pulse Ox 93 L 03/09/25 00:00 FiO2 Intake & Output 03/08/25 03/09/25 03/09/25 18:59 06:59 18:59 Output Total 1000 400 Balance -1000 -400 Weight 112 kg Output: Urine 1000 400 Other: Voiding Method Indwelling Catheter - Labs CBC & Chem 7: 03/09/25 05:54 03/09/25 05:54 Labs: Abnormal Lab Results - Last 24 Hours (Table) 03/07/25 03/08/25 03/08/25 Range/Units 23:46 09:50 12:13 RBC 2.55 L (4.10-5.20) 10*6/uL Hgb 7.7 L (12.0-15.0) g/dL Hct 23.6 L (37.2-46.3) % Plt Count 39 L (140-440) 10*3/uL Immature Gran # (0.00-0.04) 10*3/uL Lymphocytes # (Manual) (1.0-4.8) k/uL Sodium (137-145) mmol/L Chloride (98-107) mmol/L BUN (7-17) mg/dL Creatinine (0.52-1.04) mg/dL Glucose (74-99) mg/dL POC Glucose (mg/dL) 398 H (70-110) mg/dL Iron 32 L (50-170) UG/DL TIBC 189 L (228-460) UG/DL Transferrin 135.0 L (204.0-354.0) mg/dL Ferritin 856.0 H (10.0-291.0) ng/mL AST (14-36) U/L ALT (4-34) U/L Total Protein (6.3-8.2) g/dL Albumin (3.5-5.0) g/dL 03/08/25 03/08/25 03/08/25 Range/Units 13:46 14:50 17:03 RBC (4.10-5.20) 10*6/uL Hgb (12.0-15.0) g/dL Hct (37.2-46.3) % Plt Count (140-440) 10*3/uL Immature Gran # (0.00-0.04) 10*3/uL Lymphocytes # (Manual) (1.0-4.8) k/uL Sodium (137-145) mmol/L Chloride (98-107) mmol/L BUN (7-17) mg/dL Creatinine (0.52-1.04) mg/dL Glucose (74-99) mg/dL POC Glucose (mg/dL) 342 H 306 H 257 H (70-110) mg/dL Iron (50-170) UG/DL TIBC (228-460) UG/DL Transferrin (204.0-354.0) mg/dL Ferritin (10.0-291.0) ng/mL AST (14-36) U/L ALT (4-34) U/L Total Protein (6.3-8.2) g/dL Albumin (3.5-5.0) g/dL 03/08/25 03/09/25 03/09/25 Range/Units 20:05 05:54 05:54 RBC 2.73 L (4.10-5.20) 10*6/uL Hgb 8.1 L (12.0-15.0) g/dL Hct 24.3 L (37.2-46.3) % Plt Count 37 L (140-440) 10*3/uL Immature Gran # 0.12 H (0.00-0.04) 10*3/uL Lymphocytes # (Manual) 0.68 L (1.0-4.8) k/uL Sodium 127 L (137-145) mmol/L Chloride 91 L (98-107) mmol/L BUN 63 H (7-17) mg/dL Creatinine 1.26 H (0.52-1.04) mg/dL Glucose 120 H (74-99) mg/dL POC Glucose (mg/dL) 181 H (70-110) mg/dL Iron (50-170) UG/DL TIBC (228-460) UG/DL Transferrin (204.0-354.0) mg/dL Ferritin (10.0-291.0) ng/mL AST 70 H (14-36) U/L ALT 83 H (4-34) U/L Total Protein 6.1 L (6.3-8.2) g/dL Albumin 2.9 L (3.5-5.0) g/dL 03/09/25 Range/Units 06:58 RBC (4.10-5.20) 10*6/uL Hgb (12.0-15.0) g/dL Hct (37.2-46.3) % Plt Count (140-440) 10*3/uL Immature Gran # (0.00-0.04) 10*3/uL Lymphocytes # (Manual) (1.0-4.8) k/uL Sodium (137-145) mmol/L Chloride (98-107) mmol/L BUN (7-17) mg/dL Creatinine (0.52-1.04) mg/dL Glucose (74-99) mg/dL POC Glucose (mg/dL) 127 H (70-110) mg/dL Iron (50-170) UG/DL TIBC (228-460) UG/DL Transferrin (204.0-354.0) mg/dL Ferritin (10.0-291.0) ng/mL AST (14-36) U/L ALT (4-34) U/L Total Protein (6.3-8.2) g/dL Albumin (3.5-5.0) g/dL Microbiology - Last 24 Hours (Table) 03/08/25 00:11 Blood Culture Gram Stain - Preliminary Blood Blood Culture - Preliminary Molecular ID Assessment and Plan Time with Patient: Less than 30
[2025-03-09 16:59] LABS: Glucose,Whole Blood 147 mg/dL (70-110)
[2025-03-09 17:54] LABS: Glucose,Whole Blood 155 mg/dL (70-110)
[2025-03-09 21:00] LABS: Glucose,Whole Blood 140 mg/dL (70-110)
[2025-03-10 06:09] LABS: Glucose,Whole Blood 143 mg/dL (70-110)
[2025-03-10 06:33] LABS: HCT 23.7 % (37.2-46.3); HGB 7.8 g/dL (12.0-15.0); Immature Platelet Fraction 13.8 % (1.1-6.1); MCH 30.2 pg (27.0-32.0); MCHC 32.9 g/dL (32.0-37.0); MCV 91.9 fL (80.0-97.0); Mean Platelet Volume 11.8 fL (9.5-12.2); RBC 2.58 10*6/uL (4.10-5.20); RDW 16.4 % (11.5-14.5)
[2025-03-10 07:10] LABS: African American GFR (CKD) 58 (>60 ml/min/1.73 sqM); Anion Gap 9 mmol/L; Blood Urea Nitrogen 55 mg/dL (7-17); Calcium 8.6 mg/dL (8.4-10.2); Carbon Dioxide 27 mmol/L (22-30); Chloride 94 mmol/L (98-107); Glucose 128 mg/dL (74-99); Magnesium 2.1 mg/dL (1.6-2.3); Non-African American GFR(CKD) 50 (>60 ml/min/1.73 sqM); Potassium 3.4 mmol/L (3.5-5.1); Sodium 130 mmol/L (137-145)
--- NOTE | 2025-03-10 08:04 | XR ---
EXAMINATION TYPE: XR chest 1V DATE OF EXAM: 03/10/2025 5:34 AM COMPARISON: Chest radiographs from 02/23/2025 TECHNIQUE: XR chest 1V Frontal view of the chest. CLINICAL INDICATION:Female, 80 years old with history of sob; FINDINGS: Lungs/Pleura: Small left pleural effusion. Left perihilar linear atelectasis. No pneumothorax. Pulmonary vascularity: Central pulmonary vascular congestion. Heart/mediastinum: Cardiomediastinal silhouette is enlarged and stable. Aortic valvular replacement. Dense mitral annulus calcifications Two lead cardiac conduction device overlying the left hemithorax with lead tips projecting over the right ventricle and right atrium. Musculoskeletal: No acute osseous pathology. Midline sternotomy wires are noted and stable. IMPRESSION: Cardiomegaly with small left pleural effusion and left perihilar linear atelectasis. Additional centr al pulmonary vessel congestion. Correlate clinically for possible CHF exacerbation. [facility], , 03/10/2025 8:02 AM
--- NOTE | 2025-03-10 08:39 | P.PN ---
Subjective Progress Note Date: 03/09/25 Principal diagnosis: Reason for follow-up is bacteremia Patient is a 80-year-old female with multiple comorbidities including type 2 diabetes mellitus hypertension hyperlipidemia atrial fibrillation coronary artery disease did have TAVR in 2018 subsequently open aortic valve replacement MVR and tricuspid valve repair done at [facility] on 05/20/2024 recently admitted to hospital and treated for COVID-19 pneumonia now being admitted to the hospital generalized weakness and did have a positive blood culture with Enterococcus On today's evaluation that is 03/09/2025, Patient is afebrile this morning patient currently on a CPAP she is breathing slightly comfortably no chest pain shortness of the Cough No Abdominal Pain Some Nausea but No Vomiting No Diarrhea Has Been Reported. Patient White Count Is 6.20 Creatinine Is 1.26 Blood Culture with Enterococcus Faecalis Objective - Vital Signs Vital signs: Vital Signs Temp 99.2 F 03/09/25 12:00 Pulse 69 03/09/25 12:00 Resp 12 03/09/25 12:00 BP 111/47 03/09/25 12:00 Pulse Ox 96 03/09/25 12:00 FiO2 Intake & Output 03/08/25 03/09/25 03/09/25 18:59 06:59 18:59 Output Total 1000 400 Balance -1000 -400 Weight 112 kg Output: Urine 1000 400 Other: Voiding Method Indwelling Catheter Indwelling Catheter - Exam GENERAL DESCRIPTION: An elderly female lying in bed in no distress RESPIRATORY SYSTEM: Unlabored breathing , decreased breath sounds at bases HEART: S1 S2 regular rate and rhythm , ABDOMEN: Soft , no tenderness EXTREMITIES: Swelling to the leg but no redness Stage II sacral wound but no intervention cellulitis - Labs CBC & Chem 7: 03/10/25 05:46 03/10/25 05:46 Labs: Abnormal Lab Results - Last 24 Hours (Table) 03/07/25 03/08/25 03/08/25 Range/Units 23:46 17:03 20:05 RBC (4.10-5.20) 10*6/uL Hgb (12.0-15.0) g/dL Hct (37.2-46.3) % Plt Count (140-440) 10*3/uL Immature Gran # (0.00-0.04) 10*3/uL Lymphocytes # (Manual) (1.0-4.8) k/uL Sodium (137-145) mmol/L Chloride (98-107) mmol/L BUN (7-17) mg/dL Creatinine (0.52-1.04) mg/dL Glucose (74-99) mg/dL POC Glucose (mg/dL) 257 H 181 H (70-110) mg/dL Iron 32 L (50-170) UG/DL TIBC 189 L (228-460) UG/DL Transferrin 135.0 L (204.0-354.0) mg/dL Ferritin 856.0 H (10.0-291.0) ng/mL AST (14-36) U/L ALT (4-34) U/L Total Protein (6.3-8.2) g/dL Albumin (3.5-5.0) g/dL 03/09/25 03/09/25 03/09/25 Range/Units 05:54 05:54 06:58 RBC 2.73 L (4.10-5.20) 10*6/uL Hgb 8.1 L (12.0-15.0) g/dL Hct 24.3 L (37.2-46.3) % Plt Count 37 L (140-440) 10*3/uL Immature Gran # 0.12 H (0.00-0.04) 10*3/uL Lymphocytes # (Manual) 0.68 L (1.0-4.8) k/uL Sodium 127 L (137-145) mmol/L Chloride 91 L (98-107) mmol/L BUN 63 H (7-17) mg/dL Creatinine 1.26 H (0.52-1.04) mg/dL Glucose 120 H (74-99) mg/dL POC Glucose (mg/dL) 127 H (70-110) mg/dL Iron (50-170) UG/DL TIBC (228-460) UG/DL Transferrin (204.0-354.0) mg/dL Ferritin (10.0-291.0) ng/mL AST 70 H (14-36) U/L ALT 83 H (4-34) U/L Total Protein 6.1 L (6.3-8.2) g/dL Albumin 2.9 L (3.5-5.0) g/dL 03/09/25 03/09/25 03/09/25 Range/Units 11:37 12:55 12:56 RBC (4.10-5.20) 10*6/uL Hgb (12.0-15.0) g/dL Hct (37.2-46.3) % Plt Count (140-440) 10*3/uL Immature Gran # (0.00-0.04) 10*3/uL Lymphocytes # (Manual) (1.0-4.8) k/uL Sodium (137-145) mmol/L Chloride (98-107) mmol/L BUN (7-17) mg/dL Creatinine (0.52-1.04) mg/dL Glucose (74-99) mg/dL POC Glucose (mg/dL) 167 H 243 H 212 H (70-110) mg/dL Iron (50-170) UG/DL TIBC (228-460) UG/DL Transferrin (204.0-354.0) mg/dL Ferritin (10.0-291.0) ng/mL AST (14-36) U/L ALT (4-34) U/L Total Protein (6.3-8.2) g/dL Albumin (3.5-5.0) g/dL Microbiology - Last 24 Hours (Table) 03/08/25 00:11 Blood Culture Gram Stain - Preliminary Blood Blood Culture - Preliminary Group D Enterococcus Molecular ID Assessment and Plan (1) Elevated liver enzymes Current Visit: Yes Status: Acute Code(s): R74.8 - ABNORMAL LEVELS OF OTHER SERUM ENZYMES SNOMED Code(s): 829611770 (2) Pressure ulcer of sacral region, stage 2 Current Visit: Yes Status: Acute Code(s): L89.152 - PRESSURE ULCER OF SACRAL REGION, STAGE 2 SNOMED Code(s): 08260325790293 (3) Bacteremia Current Visit: Yes Status: Acute Code(s): R78.81 - BACTEREMIA SNOMED Code(s): 6371687 Plan: 1patient presented hospitalized weakness which is likely multifactorial in this patient who did have hypotension white count is normal but did have a left shift source question abdominal has the patient have elevated liver enzymes though the ultrasound was inconclusive possible left lower lobe pneumonia this patient recently did have COVID-19 pneumonia 2-patient did have a stage II sacral pressure ulcer but no significant cellulitis continue with local wound care as ordered 3-patient blood culture came positive with Enterococcus faecalis questionable endovascular source will benefit from a echocardiogram 4antibiotic has been adjusted to Unasyn blood pressure has been repeated to document clearance Daughter at the bedside question answered Dictation was produced using [employer] dictation software. please excuse any grammatical, word or spelling errors. Time with Patient: Less than 30
[2025-03-10 08:53] LABS: Band Neutrophils % 1 %; Eosinophils # (M) 0.08 k/uL (0-0.7); Lymphocytes # (M) 0.76 k/uL (1.0-4.8); Metamyelocytes # (M) 0.08 k/uL (0); Metamyelocytes % 1 %; Monocytes # (M) 0.25 k/uL (0-1.0); Myelocytes # (M) 0.08 k/uL (0); Myelocytes % 1 %; Neutrophils % (M) 86 %; Nucleated Red Blood Cells 2 /100 WBC (0-0); Total Cells Counted 200
[2025-03-10 08:55] LABS: Anisocytosis (M) Present; Poikilocytosis (M) Present; Polychromasia Present; RBC Fragments Present
[2025-03-10 08:56] LABS: Platelet Count 32 10*3/uL (140-440)
[2025-03-10] MEDS ORDERED: Potassium Replacement Protocol 1 EACH MISC MISCELLANE PRN (09:17)
--- NOTE | 2025-03-10 09:48 | P.PN ---
Subjective Patient is seen in follow-up for acute kidney injury on chronic kidney disease and hyponatremia. Renal function better. Sodium level up to 130. Nonoliguric. Tolerating oral intake. Vital signs are stable. General: No acute distress. HEENT: Head exam is unremarkable. On CPAP. LUNGS: No audible rhonchi or wheezes. HEART: Rate and Rhythm are regular. ABDOMEN: Nontender. EXTREMITITES: Trace edema. Objective - Vital Signs Vital signs: Vital Signs Temp 99.0 F 03/10/25 04:00 Pulse 62 03/10/25 04:00 Resp 10 L 03/10/25 04:00 BP 109/57 03/10/25 04:00 Pulse Ox 97 03/10/25 04:00 FiO2 Intake & Output 03/09/25 03/10/25 03/10/25 18:59 06:59 18:59 Intake Total 350 Output Total 680 600 Balance -330 -600 Weight 116.2 kg Intake: Intake, IV Titration 200 Amount Ampicillin-Sulbactam 3 gm 200 In Sodium Chloride 0.9% 100 ml @ 200 mls/hr IVPB Q6H [facility] Rx#:[id number] Oral 150 Output: Urine 680 600 Other: Voiding Method Indwelling Catheter Indwelling Catheter - Labs CBC & Chem 7: 03/10/25 05:46 03/10/25 05:46 Labs: Abnormal Lab Results - Last 24 Hours (Table) 03/09/25 03/09/25 03/09/25 Range/Units 11:37 12:55 12:56 RBC (4.10-5.20) 10*6/uL Hgb (12.0-15.0) g/dL Hct (37.2-46.3) % Plt Count (140-440) 10*3/uL Immature Gran # (0.00-0.04) 10*3/uL Lymphocytes # (Manual) (1.0-4.8) k/uL Metamyelocytes # (Man) (0) k/uL Myelocytes # (Manual) (0) k/uL Nucleated RBCs (0-0) /100 WBC Immature Plt Fraction (1.1-6.1) % Sodium (137-145) mmol/L Potassium (3.5-5.1) mmol/L Chloride (98-107) mmol/L BUN (7-17) mg/dL Creatinine (0.52-1.04) mg/dL Glucose (74-99) mg/dL POC Glucose (mg/dL) 167 H 243 H 212 H (70-110) mg/dL 03/09/25 03/09/25 03/09/25 Range/Units 16:57 17:52 20:58 RBC (4.10-5.20) 10*6/uL Hgb (12.0-15.0) g/dL Hct (37.2-46.3) % Plt Count (140-440) 10*3/uL Immature Gran # (0.00-0.04) 10*3/uL Lymphocytes # (Manual) (1.0-4.8) k/uL Metamyelocytes # (Man) (0) k/uL Myelocytes # (Manual) (0) k/uL Nucleated RBCs (0-0) /100 WBC Immature Plt Fraction (1.1-6.1) % Sodium (137-145) mmol/L Potassium (3.5-5.1) mmol/L Chloride (98-107) mmol/L BUN (7-17) mg/dL Creatinine (0.52-1.04) mg/dL Glucose (74-99) mg/dL POC Glucose (mg/dL) 147 H 155 H 140 H (70-110) mg/dL 03/10/25 03/10/25 03/10/25 Range/Units 05:46 05:46 06:07 RBC 2.58 L (4.10-5.20) 10*6/uL Hgb 7.8 L (12.0-15.0) g/dL Hct 23.7 L (37.2-46.3) % Plt Count 32 L (140-440) 10*3/uL Immature Gran # 0.19 H (0.00-0.04) 10*3/uL Lymphocytes # (Manual) 0.76 L (1.0-4.8) k/uL Metamyelocytes # (Man) 0.08 H (0) k/uL Myelocytes # (Manual) 0.08 H (0) k/uL Nucleated RBCs 2 H (0-0) /100 WBC Immature Plt Fraction 13.8 H (1.1-6.1) % Sodium 130 L (137-145) mmol/L Potassium 3.4 L (3.5-5.1) mmol/L Chloride 94 L (98-107) mmol/L BUN 55 H (7-17) mg/dL Creatinine 1.06 H (0.52-1.04) mg/dL Glucose 128 H (74-99) mg/dL POC Glucose (mg/dL) 143 H (70-110) mg/dL Microbiology - Last 24 Hours (Table) 03/09/25 10:15 Blood Culture Gram Stain - Preliminary Blood 03/09/25 05:54 Blood Culture Gram Stain - Preliminary Blood 03/08/25 00:11 Blood Culture Gram Stain - Preliminary Blood Blood Culture - Preliminary Group D Enterococcus Molecular ID Assessment and Plan Plan: Assessment: 1. Acute kidney injury secondary to ATN secondary to hypotension. Also concern for cardiorenal syndrome. Creatinine 1.46 on admission and is 1.06 today. UA fairly benign. 2. Chronic kidney disease stage IIIa with baseline creatinine 1.2-1.3 secondary to diabetic kidney disease. 3. Volume overload. On Lasix. 4. Hyponatremia, hypervolemic. Also component of hypertonicity from hypergl ycemia. Improving. Urine sodium less than 20 and urine osmolality 417. 5. Diabetes mellitus. 6. Anemia. Rule out iron deficiency. Questionable GI bleed. Stool for occult blood positive. 7. Acute on chronic systolic CHF ejection fraction of 40 to 45% with severe pulmonary hypertension, moderate tricuspid regurgitation. 8. Enterococcus bacteremia on antibiotics. 9. Hypokalemia from diuresis. Being replaced. Plan: Maintain oral Lasix. Blood glucose control. Hold off on IV iron due to active infection. Continue to hold Cozaar as blood pressure is on the lower end. Avoid nephrotoxins. Continue to monitor renal function and urine output. Follow-up echocardiogram.
[2025-03-10] MEDS: POTASSIUM CHLORIDE 10 MEQ in WATER FOR INJECTION 1 100ML.BAG IVPB SCH (10:32)
[2025-03-10 11:01] LABS: Glucose,Whole Blood 178 mg/dL (70-110)
--- NOTE | 2025-03-10 13:32 | CDI ---
Date: 03/10/2025 From: Shruthi [email or web address] Email: [email or web address] Admit Date: 03/08/2025 05:13:00 AM Patient Name: Sheila Perales Visit Number: [id number] Discharge Date: N/A ATTENTION: The Clinical Documentation Specialists (CDI) and [facility] Coding Staff appreciate your assistance in clarifying documentation. Please respond to the clarification below the line at the bottom and electronically sign. The CDI & [facility] Coding staff will review the response and follow-up if needed. Please note: Queries are made part of the Legal Health Record. If you have any questions, please contact the author of this message via ITS. Dr. Thalia Aviles, Sepsis is documented in the ED Report on 03/07/2025 - which may lack sufficient clinical evidence/support in the medical record. Additional clarification is requested. History/Risk Factors: 80-year-old female presented to [facility] for evaluation due to generalized weakness. PMH: Recent COVID-19 infection, recent urinary tract infection status-post outpatient treatment, stage 2 sacral decubitus ulcer, type 2 diabetes mellitus, chronic systolic heart failure, atrial fibrillation, aortic valve replacement, hypothyroidism, chronic hypoxic respiratory failure, obstructive sleep apnea Clinical Indicators: Documentation Location: Electronic Medical Record Vital Sign Trend: Date Time Temperature HR RR BP SpO2 03/07/2025 23:22 98.4 F (Oral) 65 22 83/41 93% on 5L NC 03/08/2025 04:37 N/A 65 18 104/51 97% on CPAP 03/09/2025 00:00 98.7 F (Axillary) 60 24 114/71 93% on CPAP 03/09/2025 12:00 99.2 F (Axillary) 69 12 111/47 96% on CPAP 03/10/2025 04:00 99.0 F (Axillary) 62 10 109/57 97% on CPAP Lab Results: 03/07/2025 03/08/2025 03/09/2025 03/10/2025 WBC 4.41 5.09 6.20 8.40 Other Clinical Indicators: Blood Cultures (Preliminary Results): o Collected on 03/08/2025: Group D Enterococcus, Molecular ID o Collected on 03/09/2025: Enterococcus faecalis Venous Lactic Acid: (03/07/2025) 3.1 (03/08/2025) 2.1 2.0 ED Report (03/08/2025): Pancytopenia. Severe sepsis H&P Report (03/08/2025): o Patient had no fever or chills patient does not have any leukocytosis o Patient does have stage II decubitus ulcers does not appear to be infected. Patient was started on vancomycin probably for that reason in ER Internal Medicine Progress Note (03/09/2025): Sepsis and bacteremia Infectious Disease Progress Note (03/09/2025): Bacteremia Treatment: Infectious Disease Consultation Pertinent Labs Monitored with Trend Unasyn 3g IVPB Every 6 Hours Rocephin 2g IVPB x 1 Vancomycin 1750mg IVPB x 1 0.9% Sodium Chloride IV Bolus x 500mL After work up and study, please clarify which diagnosis is most appropriate? [ ] Enterococcus bacteremia without sepsis, present on admission (sepsis ruled out) [ x] Enterococcus sepsis (present on admission) is a valid diagnosis as evidenced by the following (please add rationale): [ ] Other, please specify [ ] Unable to determine SIRS Criteria (2 or more of the following may indicate SIRS): Temperature < 96.8F (36C) or > 101.0F (38.3C) Heart Rate > 90 bpm Respiratory Rate > 20 breaths/min or PaCO2 < 32 mmHg White Blood Cell Count > 12,000 or < 4,000 cells/mm3 or > 10% bands MTDD
[2025-03-10 13:44] LABS: Glucose,Whole Blood 227 mg/dL (70-110)
--- NOTE | 2025-03-10 13:57 | CDI ---
Date: 03/10/2025 From: Shruthi [email or web address] Email: [email or web address] Admit Date: 03/08/2025 05:13:00 AM Patient Name: Sheila Perales Visit Number: [id number] Discharge Date: N/A ATTENTION: The Clinical Documentation Specialists (CDI) and [facility] Coding Staff appreciate your assistance in clarifying documentation. Please respond to the clarification below the line at the bottom and electronically sign. The CDI & [facility] Coding staff will review the response and follow-up if needed. Please note: Queries are made part of the Legal Health Record. If you have any questions, please contact the author of this message via ITS. Dr. Karan Mcgowan, Conflicting documentation has been found in the medical record. As attending physician, please provide clarification. Nephrology Consultation Note (03/08/2025): o Acute kidney injury secondary to ATNCreatinine 1.46 on admission and is 1.23 today o Chronic kidney disease stage IIIa with baseline creatinine 1.2-1.3 History/Risk Factors: 80-year-old female presented to [facility] for evaluation due to generalized weakness. PMH: Stage 2a chronic kidney disease, recent COVID-19 infection, recent urinary tract infection status-post outpatient treatment, stage 2 sacral decubitus ulcer, type 2 diabetes mellitus, chronic systolic heart failure, atrial fibrillation, aortic valve replacement, hypothyroidism, chronic hypoxic respiratory failure, obstructive sleep apnea Clinical Indicators: Documentation Location: Electronic Medical Record Lab Trends: 03/07/2025 03/08/2025 03/09/2025 03/10/2025 Creatinine 1.46 1.23 1.26 1.06 BUN 64 65 63 55 GFR 34 42 41 50 Nephrology Consultation Note (03/08/2025): o She was also started on IV Lasix 40 mg twice daily this morning. She did receive a fluid bolus on admission. Currently she is off all IV fluids o Maintain IV Lasix o Creatinine on admission was 1.46 and is 1.23 today. Patient has chronic kidney disease stage IIIa with baseline creatinine near 1.2-1.3 Treatment: Nephrology Consultation Pertinent Labs Monitored with Trend 0.9% Sodium Chloride IV Bolus x 500mL After work up and study, please which diagnosis is most appropriate? [ ] Acute kidney injury ruled out. Patient has stable stage 3a chronic kidney disease (baseline creatinine 1.2-1.3 without an increase in serum creatinine by greater than or equal to 1.5 times baseline) [x ] Acute kidney injury with acute tubular necrosis (on stage 3a chronic kidney disease) is a valid diagnosis as evidenced by the following: rise in cr by >0.3 [ ] Unable to determine [ ] Other, please specify Reference: KDIGO AKASH Criteria An increase in serum creatinine by greater than or equal to 0.3 mg/dL within 48 hours; or An increase in serum creatinine by greater than or equal to 1.5 times baseline, which is known or presumed to have occurred within the prior 7 days; or A urine volume less than 0.5 ml/kg/h for 6 hours. When the baseline is unknown the lowest creatinine during admission assumed to be baseline MTDD
--- NOTE | 2025-03-10 14:18 | P.PN ---
Subjective Progress Note Date: 03/10/25 Principal diagnosis: HPI: [Patient is more alert clinically. She has a Enterococcus growing in her blood. She has also a decubitus ulcer on her back. She has history of multivalve her surgery and I am concerned about seeding. However she is on aggressive antibiotic therapy mentally she is more alert responsive to questions hemodynamically stable and no overt heart failure at this time. We will continue supportive care and current medical regimen. PHYSICIAL EXAM: Elevated JVD noted, S1-S2 heard normally systolic murmur is obvious at the base and apex. Patient is in a atrial and ventricular paced rhythm. Lungs reveal improved air entry abdomen is soft lower extremities reveal trace edema Central nervous system no focal deficits. IMPRESSION: 1. 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 2. Recent COVID. 3. Enterococcus bacteremia with back ulcer. 4.. 5.. RECOMMENDATIONS: Continue current medications prognosis remains guarded agree with aggressive antibiotic regimen.. Objective - Vital Signs Vital signs: Vital Signs Temp 99.0 F 03/10/25 04:00 Pulse 62 03/10/25 04:00 Resp 10 L 03/10/25 04:00 BP 109/57 03/10/25 04:00 Pulse Ox 97 03/10/25 04:00 FiO2 Intake & Output 03/09/25 03/10/25 03/10/25 18:59 06:59 18:59 Intake Total 350 Output Total 680 600 Balance -330 -600 Weight 116.2 kg Intake: Intake, IV Titration 200 Amount Ampicillin-Sulbactam 3 gm 200 In Sodium Chloride 0.9% 100 ml @ 200 mls/hr IVPB Q6H [facility] Rx#:[id number] Oral 150 Output: Urine 680 600 Other: Voiding Method Indwelling Catheter Indwelling Catheter - Labs CBC & Chem 7: 03/10/25 05:46 03/10/25 05:46 Labs: Abnormal Lab Results - Last 24 Hours (Table) 03/09/25 03/09/25 03/09/25 Range/Units 16:57 17:52 20:58 RBC (4.10-5.20) 10*6/uL Hgb (12.0-15.0) g/dL Hct (37.2-46.3) % Plt Count (140-440) 10*3/uL Immature Gran # (0.00-0.04) 10*3/uL Lymphocytes # (Manual) (1.0-4.8) k/uL Metamyelocytes # (Man) (0) k/uL Myelocytes # (Manual) (0) k/uL Nucleated RBCs (0-0) /100 WBC Immature Plt Fraction (1.1-6.1) % Sodium (137-145) mmol/L Potassium (3.5-5.1) mmol/L Chloride (98-107) mmol/L BUN (7-17) mg/dL Creatinine (0.52-1.04) mg/dL Glucose (74-99) mg/dL POC Glucose (mg/dL) 147 H 155 H 140 H (70-110) mg/dL 03/10/25 03/10/25 03/10/25 Range/Units 05:46 05:46 06:07 RBC 2.58 L (4.10-5.20) 10*6/uL Hgb 7.8 L (12.0-15.0) g/dL Hct 23.7 L (37.2-46.3) % Plt Count 32 L (140-440) 10*3/uL Immature Gran # 0.19 H (0.00-0.04) 10*3/uL Lymphocytes # (Manual) 0.76 L (1.0-4.8) k/uL Metamyelocytes # (Man) 0.08 H (0) k/uL Myelocytes # (Manual) 0.08 H (0) k/uL Nucleated RBCs 2 H (0-0) /100 WBC Immature Plt Fraction 13.8 H (1.1-6.1) % Sodium 130 L (137-145) mmol/L Potassium 3.4 L (3.5-5.1) mmol/L Chloride 94 L (98-107) mmol/L BUN 55 H (7-17) mg/dL Creatinine 1.06 H (0.52-1.04) mg/dL Glucose 128 H (74-99) mg/dL POC Glucose (mg/dL) 143 H (70-110) mg/dL 03/10/25 03/10/25 Range/Units 11:00 13:43 RBC (4.10-5.20) 10*6/uL Hgb (12.0-15.0) g/dL Hct (37.2-46.3) % Plt Count (140-440) 10*3/uL Immature Gran # (0.00-0.04) 10*3/uL Lymphocytes # (Manual) (1.0-4.8) k/uL Metamyelocytes # (Man) (0) k/uL Myelocytes # (Manual) (0) k/uL Nucleated RBCs (0-0) /100 WBC Immature Plt Fraction (1.1-6.1) % Sodium (137-145) mmol/L Potassium (3.5-5.1) mmol/L Chloride (98-107) mmol/L BUN (7-17) mg/dL Creatinine (0.52-1.04) mg/dL Glucose (74-99) mg/dL POC Glucose (mg/dL) 178 H 227 H (70-110) mg/dL Microbiology - Last 24 Hours (Table) 03/09/25 05:54 Blood Culture Gram Stain - Preliminary Blood Blood Culture - Preliminary Enterococcus faecalis 03/09/25 10:15 Blood Culture Gram Stain - Preliminary Blood 03/08/25 00:11 Blood Culture Gram Stain - Preliminary Blood Blood Culture - Preliminary Group D Enterococcus Molecular ID
--- NOTE | 2025-03-10 16:04 | CA ---
Transthoracic Echo Report Name: Sheila Perales Age: 80 Gender: F : 1945 Exam Date: 03/10/2025 14:32 Exam Location: [place] [facility] Ht (in): 63 Wt (lb): 256 Ordering Physician: Mahin Armendariz MD Attending/Referring Phys: Facility Service Associate Tereza Saldana RDCS Procedure CPT: Indications: bacteremia Cardiac Hx: Limited LVEF and valves. AVR, tricuspid and mitral repair Technical Quality: Technically difficult study Contrast 1: Definity Total Dose (mL): 5 Contrast 2: Total Dose (mL): MEASUREMENTS (Male / Female) Normal Values 2D ECHO LV Diastolic Diameter PLAX 4.8 cm 4.2 - 5.9 / 3.9 - 5.3 cm LV Systolic Diameter PLAX 3.4 cm IVS Diastolic Thickness 1.1 cm 0.6 - 1.0 / 0.6 - 0.9 cm LVPW Diastolic Thickness 1.0 cm 0.6 - 1.0 / 0.6 - 0.9 cm LV Relative Wall Thickness 0.5 LV Diastolic Volume MOD BP 103.2 cm??? 67 - 155 / 56 - 104 cm??? LV Systolic Volume MOD BP 41.2 cm??? 22 - 58 / 19 - 49 cm??? LV Ejection Fraction MOD BP 60.1 % >= 55 % LV Cardiac Index MOD BP 1696.2 cm???/min???m??? LV Diastolic Volume MOD 4C 104.5 cm??? LV Systolic Volume MOD 4C 41.7 cm??? LV Ejection Fraction MOD 4C 60.1 % LV Cardiac Index MOD 4C 1716.9 cm???/min???m??? LV Diastolic Length 4C 8.6 cm LV Systolic Length 4C 6.7 cm LV Diastolic Volume MOD 2C 97.3 cm??? LV Systolic Volume MOD 2C 38.9 cm??? LV Ejection Fraction MOD 2C 60.0 % LV Cardiac Index MOD 2C 1596.7 cm???/min???m??? LV Diastolic Length 2C 8.1 cm LV Systolic Length 2C 6.3 cm DOPPLER AV Peak Velocity 240.3 cm/s AV Peak Gradient 23.1 mmHg AV Mean Velocity 154.5 cm/s AV Mean Gradient 11.3 mmHg AV Velocity Time Integral 53.6 cm LVOT Peak Velocity 102.4 cm/s LVOT Peak Gradient 4.2 mmHg LVOT Velocity Time Integral 26.1 cm MV Peak Velocity 197.1 cm/s MV Peak Gradient 15.5 mmHg MV Mean Velocity 121.5 cm/s MV Mean Gradient 6.6 mmHg MV Velocity Time Integral 67.4 cm TV Peak Velocity 78.8 cm/s TR Peak Velocity 288.8 cm/s TR Peak Gradient 33.4 mmHg Right Atrial Pressure 10.0 mmHg Pulmonary Artery Systolic Pressu 43.4 mmHg Right Ventricular Systolic Press 43.4 mmHg PV Peak Velocity 131.4 cm/s PV Peak Gradient 6.9 mmHg FINDINGS Left Ventricle Left ventricular ejection fraction is estimated at 55-60 %. Normal left ventricular systolic function with no obvious regional wall motion abnormalities. Left ventricular cavity size normal. Right Ventricle Right ventricle not well visualized. Mild pulmonary hypertension. Right Atrium Left Atrium Mitral Valve Mitral valve repair. Mean gradient 7mmHg. No regurgitation. Aortic Valve Aortic valve replacement. Mean gradient 11mmHg. No paravalvular aortic regurgitation. No central aortic regurgitation.aortic valve not well visualized. Tricuspid Valve Tricuspid valve repair. Mean gradient 1mmHg. Mild tricuspid regurgitation. Tricuspid valve not well visualized. Pulmonic Valve Pulmonic valve not well visualized. No pulmonic stenosis. No pulmonic regurgitation. Pericardium No pericardial effusion. Aorta CONCLUSIONS Technically difficult study. Definity ECHO contrast used for improved visualization of the endocardial borders (inadequate visualization of two or more contiguous segments). Normal left ventricular size and systolic function Bioprosthetic aortic valve, thickened with a mean gradient of 11 mmHg Calcified mitral annulus, mitral valve was not felt repair was not well visualized Tricuspid valve repair with mild tricuspid regurgitation. Previewed by: Dr. Caitie Watson MD (Electronically Signed) Final Date: 10 March 2025 16:03
[2025-03-10 18:09] LABS: Glucose,Whole Blood 170 mg/dL (70-110)
[2025-03-10 18:46] LABS: Glucose,Whole Blood 192 mg/dL (70-110)
[2025-03-10 21:08] LABS: Glucose,Whole Blood 203 mg/dL (70-110)
--- NOTE | 2025-03-11 06:51 | P.PN ---
Subjective Progress Note Date: 03/10/25 80-year-old female with history of mitral valve replacement congestive heart failure EF of around 40 to 45% came in with complaints of generalized weakness. Patient is found to be hyponatremic. Patient is on 6 L of oxygen usually uses 4 to 5 L at home. Patient does have history of obstructive sleep apnea for which patient is on BiPAP at home. Patient had no fever or chills patient does not have any leukocytosis patient does not have any complaints of dysuria suprapubic pain urine is essentially within normal limits chest x-ray showed some nonspecific infiltrate not consistent with pneumonia. Will obtain a procalcitonin level patient's BNP is elevated to 8000 patient's previous BNP was 5000. Patient does have bilateral lower extremity pedal edema. Patient does have stage II decubitus ulcers does not appear to be infected. Patient was started on vancomycin probably for that reason in ER. Patient has minimally elevated troponins. 03/09/2025 Patient is evaluated today in follow up in the intensive care unit. Patient remains on antibiotics in the form of IV Unasyn. Her blood culture did come back positive for Enterococcus faecalis. It was repeated today and ID is following. Labs today reveal a white blood cell count of 6.20, hemoglobin 8.1, sodium 127, BUN of 63 creatinine of 1.26. AST and ALT are significantly improved. 03/10/2025 Patient evaluated in the intensive care unit remains on CPAP and tolerating well. More awake and alert. Repeat blood culture positive for enterococcus. Limited echocardiogram reveals EF 55-60%, mild pulmonary hypertension, mild TR, there is mitral valve and tricuspid valve repair as well as AVR. Technically difficult study. Does not appear to be any vegetation noted. Remains on IV unasyn. white blood cell count 8.40, hgb 7.8, platelet 32, sodium 130, potassium 4.2, BUN 55, creatinine 1.06. REVIEW OF SYSTEMS: Unable to complete patient currently on CPAP. PHYSICAL EXAMINATION: GENERAL: The patient is alert and oriented x3,, he is in some respiratory distress without BiPAP. Obese HEENT: Pupils are round and equally reacting to light. EOMI. No scleral icterus. No conjunctival pallor. Normocephalic, atraumatic. No pharyngeal erythema. No thyromegaly. CARDIOVASCULAR: S1 and S2 present. No murmurs, rubs, or gallops. PULMONARY: Chest is clear to auscultation, no wheezing or crackles. ABDOMEN: Soft, nontender, nondistended, normoactive bowel sounds. No palpable organomegaly. MUSCULOSKELETAL: No joint swelling or deformity. EXTREMITIES: No cyanosis, clubbing, bilateral lower extremity pedal edema NEUROLOGICAL: Gross neurological examination did not reveal any focal deficits. SKIN: No rashes. Assessment and plan -Sepsis and enterococcus bacteremia POA as blood culture collected on admission positive for enterococcus source of infection could be stage 2 decubitus ulceration vs other -Congestive heart failure chronic systolic function with acute exacerbation. - Hypervolemic hyponatremia - Acute on chronic hypoxic respiratory failure secondary to possible pulmonary edema. - Type 2 diabetes mellitus uncontrolled elevated blood sugars - History of atrial fibrillation: Patient is presently rate controlled patient probably has paroxysmal A-fib on Eliquis at home - History of GI bleed in the past presently does not appear to have acute bleed or GI bleed at this time we will give IV iron transfusion will not require any blood transfusion at the time patient is receiving as needed blood transfusions and IV iron transfusions as an outpatient - History of pancytopenia follows with hematology outpatient this is because of the slow GI bleed - History of bioprosthetic aortic valve replacement - Sleep apnea on CPAP machine -Transaminitis likely from sepsis improving Hypothyroidism DVT prophylaxis: Anticoagulation as mentioned above Patient has been transitioned to oral Lasix 40 mg daily Patient is on IV Unasyn with repeat blood cultures pending. ID was consulted for the positive blood cultures. Wound care on for the stage II sacral decubitus ulcer continue with pressure offloading patient will be started on 40 units of Lantus 20 units of Premeal insulin along with sliding scale titration depending on her blood sugars patient received 1 dose of Eliquis which is being held at this time with co ncerns of GI bleed, and her family she has a slow GI bleed which is followed closely by Dr Bailee Allen ,her hemoglobin stayed stable for last 2 to 3 months receives IV iron transfusion as an outpatient. Repeat blood work in the morning The impression and plan of care has been dictated by Leti Robertson, Nurse Practitioner as directed. Dr. Stefan MD I have performed a history and physical examination and medical decision making of this patient, discussed the same with the dictator, and agree with the dictators assessment and plan as written, documented as a scribe. Based on total visit time, I have performed more than 50% of this visit. Objective - Vital Signs Vital signs: Vital Signs Temp 98.5 F 03/11/25 04:00 Pulse 66 03/11/25 04:00 Resp 16 03/11/25 00:00 BP 117/65 03/11/25 04:00 Pulse Ox 95 03/11/25 04:00 FiO2 Intake & Output 03/10/25 03/10/25 03/11/25 06:59 18:59 06:59 Intake Total 850 450 Output Total 600 1500 1100 Balance -600 -650 -650 Weight 116.2 kg 118.2 kg Intake: IV 600 450 Ampicillin-Sulbactam 3 gm 200 In Sodium Chloride 0.9% 100 ml @ 200 mls/hr IVPB Q6H [facility] Rx#:[id number] Potassium Chloride 10 meq 400 450 In Water For Injection 1 100ml.bag @ 100 mls/hr IVPB Q1HR [facility] Rx#: [id number] Oral 250 Output: Urine 600 1500 1100 Other: Voiding Method Indwelling Catheter Indwelling Catheter Indwelling Catheter - Labs CBC & Chem 7: 03/10/25 05:46 03/10/25 23:47 Labs: Abnormal Lab Results - Last 24 Hours (Table) 03/10/25 03/10/25 03/10/25 Range/Units 05:46 05:46 11:00 RBC 2.58 L (4.10-5.20) 10*6/uL Hgb 7.8 L (12.0-15.0) g/dL Hct 23.7 L (37.2-46.3) % Plt Count 32 L (140-440) 10*3/uL Immature Gran # 0.19 H (0.00-0.04) 10*3/uL Lymphocytes # (Manual) 0.76 L (1.0-4.8) k/uL Metamyelocytes # (Man) 0.08 H (0) k/uL Myelocytes # (Manual) 0.08 H (0) k/uL Nucleated RBCs 2 H (0-0) /100 WBC Immature Plt Fraction 13.8 H (1.1-6.1) % Sodium 130 L (137-145) mmol/L Potassium 3.4 L (3.5-5.1) mmol/L Chloride 94 L (98-107) mmol/L BUN 55 H (7-17) mg/dL Creatinine 1.06 H (0.52-1.04) mg/dL Glucose 128 H (74-99) mg/dL POC Glucose (mg/dL) 178 H (70-110) mg/dL 03/10/25 03/10/25 03/10/25 Range/Units 13:43 18:06 18:44 RBC (4.10-5.20) 10*6/uL Hgb (12.0-15.0) g/dL Hct (37.2-46.3) % Plt Count (140-440) 10*3/uL Immature Gran # (0.00-0.04) 10*3/uL Lymphocytes # (Manual) (1.0-4.8) k/uL Metamyelocytes # (Man) (0) k/uL Myelocytes # (Manual) (0) k/uL Nucleated RBCs (0-0) /100 WBC Immature Plt Fraction (1.1-6.1) % Sodium (137-145) mmol/L Potassium (3.5-5.1) mmol/L Chloride (98-107) mmol/L BUN (7-17) mg/dL Creatinine (0.52-1.04) mg/dL Glucose (74-99) mg/dL POC Glucose (mg/dL) 227 H 170 H 192 H (70-110) mg/dL 03/10/25 Range/Units 21:08 RBC (4.10-5.20) 10*6/uL Hgb (12.0-15.0) g/dL Hct (37.2-46.3) % Plt Count (140-440) 10*3/uL Immature Gran # (0.00-0.04) 10*3/uL Lymphocytes # (Manual) (1.0-4.8) k/uL Metamyelocytes # (Man) (0) k/uL Myelocytes # (Manual) (0) k/uL Nucleated RBCs (0-0) /100 WBC Immature Plt Fraction (1.1-6.1) % Sodium (137-145) mmol/L Potassium (3.5-5.1) mmol/L Chloride (98-107) mmol/L BUN (7-17) mg/dL Creatinine (0.52-1.04) mg/dL Glucose (74-99) mg/dL POC Glucose (mg/dL) 203 H (70-110) mg/dL Microbiology - Last 24 Hours (Table) 03/08/25 00:11 Blood Culture Gram Stain - Final Blood Blood Culture - Final Enterococcus faecalis Molecular ID 03/09/25 05:54 Blood Culture Gram Stain - Preliminary Blood Blood Culture - Preliminary Enterococcus faecalis 03/09/25 10:15 Blood Culture Gram Stain - Preliminary Blood Assessment and Plan Time with Patient: Less than 30
[2025-03-11 06:52] LABS: Glucose,Whole Blood 115 mg/dL (70-110)
[2025-03-11] MEDS: SODIUM CHLORIDE 0.9% 500 ML 500 ML IV ONE (09:59)
--- NOTE | 2025-03-11 10:53 | P.PN ---
Subjective HISTORY OF PRESENT ILLNESS: This is a 80-year-old female patient of Dr. Watson with past medical history of TAVR in 2018 with open aortic valve replacement, MVR and tricuspid valve repair done at [facility] on 05/20/2024, paroxysmal atrial fibrillation, hypertension, dyslipidemia, diabetes mellitus type 2 insulin requiring, hypothyroidism, coronary artery disease with previous stent, history of left pleural effusion status post thoracentesis with removal of 850 cc 10/08/2024. We have been asked to evaluate the patient for CHF. Patient's last office visit with Dr. Watson was 06/24/2020 for. Patient has had multiple hospitalizations si [facility] that time including most recently 02/13 - 02/23/2025 at which time she was seen by cardiology. She was hospitalized at that time for COVID-19 and treated for acute on chronic systolic heart failure. At some point, patient's Eliquis was decreased to 2.5 mg twice daily. She has had positive occult blood in the past with anemia and underwent colonoscopy in October with Dr. Hines that found tubular adenoma x 2 without active bleeding. Patient gives history that she came into the hospital because she did not have any energy, no interest in anything and was sleeping a lot. She also complains of shortness of breath with minimal activity, no orthopnea. Patient is poor historian. Blood pressure 121/62, heart rates in the 60s, pulse ox 98% on 6 L nasal cannula. Patient was also on CPAP earlier. Patient has been started on IV Lasix 40 mg every 12 hours. -EKG: Atrial paced rhythm. -Chest x-ray: Persistent left basilar airspace disease atelectasis or pneumonia. Persistent small left pleural effusion. -Gallbladder ultrasound: Gallbladder not visualized. Right kidney not visualize d. -CT head: No acute intracranial process. -Laboratory studies: Hemoglobin 7.9 repeat 7.7, platelet count 39, WBC 5.0. Sodium 122, potassium 4.5, BUN 65 and creatinine improved from 1.46-1.23. Lact ic acid 3.1 repeat 2.0. Troponins 0.087, 0.084, 0.084. Urinalysis negative for infection. Stool for occult blood positive. Acetone negative. Cepheid viral panel not detected. -Home cardiac medications: Eliquis 2.5 mg twice daily, atorvastatin 40 mg at bedtime, Farxiga 10 mg daily, Lasix 40 mg twice daily, losartan 12.5 mg daily, metolazone 2.5 mg daily, metoprolol succinate 50 mg in the morning and 25 mg at bedtime. -Echocardiogram performed 01/30/2025 at [facility] revealed suboptimal study, EF 40 to 45%, severe pulmonary hypertension. -Cardiac PCI performed 01/05/2021 to the mid diagonal 1 and ostial PDA. -Cardiovascular surgery with TAVR 11/04/2018. -Cardiovascular surgery with tissue AVR, tissue MVR, tricuspid valve repair 05/20/2024 at [facility]. 03/10/2025 Patient is more alert clinically. She has a Enterococcus growing in her blood. She has also a decubitus ulcer on her back. She has history of multivalve her surgery and I am concerned about seeding. However she is on aggressive antibiotic therapy mentally she is more alert responsive to questions hemodynamically stable and no overt heart failure at this time. We will continue supportive care and current medical regimen. 03/11/2025 Patient examined this morning at the bedside. Patient currently denies chest pain or pressure. She denies shortness of breath. Vital signs are stable. PHYSICAL EXAM: VITAL SIGNS: Reviewed. GENERAL: Well-developed in no acute distress. NECK: Supple. No JVD or thyromegaly LUNGS: Respirations even and unlabored. Lungs essentially clear to auscultation bilaterally. HEART: Regular rate and rhythm. S1 and S2 heard. EXTREMITIES: Normal range of motion. No clubbing or cyanosis. Peripheral pulses intact. No lower extremity edema ASSESSMENT: Enterococcus bacteremia Generalized weakness most likely secondary to combination of hyponatremia, acute kidney injury, recent COVID Hyponatremia Acute kidney injury Recent COVID Pancytopenia Rule out sepsis Metabolic encephalopathy Chronic heart failure with EF of 40 to 45% Valvular heart disease status post TAVR status post open aortic valve replacement, mitral valve replacement, tricuspid valve repair in May 2024 Paroxysmal atrial fibrillation, paced rhythm Hypertension Dyslipidemia Diabetes mellitus type 2 insulin requiring Hypothyroidism Coronary artery disease with previous stent to the mid diagonal 1 and ostial PDA PLAN: Continue current cardiac medications including Lipitor, Lasix, and metoprolol Continue antibiotics per infectious disease Further recommendations pending patient course Nurse practitioner note has been reviewed by physician. Signing provider agrees with the documented findings, assessment, and plan of care documented by [employer]GE[employer] as a scribe. Objective - Vital Signs Vital signs: Vital Signs Temp 97.4 F L 03/11/25 08:10 Pulse 66 03/11/25 09:00 Resp 16 03/11/25 09:00 BP 99/60 03/11/25 09:00 Pulse Ox 95 03/11/25 09:00 FiO2 Intake & Output 03/10/25 03/11/25 03/11/25 18:59 06:59 18:59 Intake Total 850 450 Output Total 1500 1100 Balance -650 -650 Weight 118.2 kg Intake: IV 600 450 Ampicillin-Sulbactam 3 gm 200 In Sodium Chloride 0.9% 100 ml @ 200 mls/hr IVPB Q6H [facility] Rx#:[id number] Potassium Chloride 10 meq 400 450 In Water For Injection 1 100ml.bag @ 100 mls/hr IVPB Q1HR [facility] Rx#: [id number] Oral 250 Output: Urine 1500 1100 Other: Voiding Method Indwelling Catheter Indwelling Catheter - Labs CBC & Chem 7: 03/10/25 05:46 03/10/25 23:47 Labs: Abnormal Lab Results - Last 24 Hours (Table) 03/10/25 03/10/25 03/10/25 Range/Units 11:00 13:43 18:06 POC Glucose (mg/dL) 178 H 227 H 170 H (70-110) mg/dL 03/10/25 03/10/25 03/11/25 Range/Units 18:44 21:08 06:50 POC Glucose (mg/dL) 192 H 203 H 115 H (70-110) mg/dL Microbiology - Last 24 Hours (Table) 03/08/25 00:11 Blood Culture Gram Stain - Final Blood Blood Culture - Final Enterococcus faecalis Molecular ID 03/09/25 05:54 Blood Culture Gram Stain - Preliminary Blood Blood Culture - Preliminary Enterococcus faecalis
--- NOTE | 2025-03-11 11:45 | P.PN ---
Subjective Patient is seen in follow-up for acute kidney injury on chronic kidney disease and hyponatremia. Renal function improved. Sodium level up to 130 yesterday. Nonoliguric. Tolerating oral intake. Vital signs are stable. General: No acute distress. HEENT: Head exam is unremarkable. On CPAP. LUNGS: No audible rhonchi or wheezes. HEART: Rate and Rhythm are regular. ABDOMEN: Nontender. EXTREMITITES: Trace edema. Objective - Vital Signs Vital signs: Vital Signs Temp 97.4 F L 03/11/25 08:10 Pulse 66 03/11/25 09:00 Resp 16 03/11/25 09:00 BP 99/60 03/11/25 09:00 Pulse Ox 95 03/11/25 09:00 FiO2 Intake & Output 03/10/25 03/11/25 03/11/25 18:59 06:59 18:59 Intake Total 850 450 Output Total 1500 1100 Balance -650 -650 Weight 118.2 kg Intake: IV 600 450 Ampicillin-Sulbactam 3 gm 200 In Sodium Chloride 0.9% 100 ml @ 200 mls/hr IVPB Q6H [facility] Rx#:[id number] Potassium Chloride 10 meq 400 450 In Water For Injection 1 100ml.bag @ 100 mls/hr IVPB Q1HR [facility] Rx#: [id number] Oral 250 Output: Urine 1500 1100 Other: Voiding Method Indwelling Catheter Indwelling Catheter - Labs CBC & Chem 7: 03/10/25 05:46 03/10/25 23:47 Labs: Abnormal Lab Results - Last 24 Hours (Table) 03/10/25 03/10/25 03/10/25 Range/Units 13:43 18:06 18:44 POC Glucose (mg/dL) 227 H 170 H 192 H (70-110) mg/dL 03/10/25 03/11/25 Range/Units 21:08 06:50 POC Glucose (mg/dL) 203 H 115 H (70-110) mg/dL Microbiology - Last 24 Hours (Table) 03/09/25 10:15 Blood Culture Gram Stain - Final Blood Blood Culture - Final Enterococcus faecalis 03/09/25 05:54 Blood Culture Gram Stain - Preliminary Blood Blood Culture - Preliminary Enterococcus faecalis 03/08/25 00:11 Blood Culture Gram Stain - Final Blood Blood Culture - Final Enterococcus faecalis Molecular ID Assessment and Plan Plan: Assessment: 1. Acute kidney injury secondary to ATN secondary to hypotension. Also concern for cardiorenal syndrome. Creatinine 1.46 on admission -1.06 yesterday. UA fairly benign. 2. Chronic kidney disease stage IIIa with baseline creatinine 1.2-1.3 secondary to diabetic kidney disease. 3. Volume overload. On Lasix. 4. Hyponatremia, hypervolemic. Also component of hypertonicity from hyperglycemia. Improving. Urine sodium less than 20 and urine osmolality 417. 5. Diabetes mellitus. 6. Anemia. Rule out iron deficiency. Questionable GI bleed. Stool for occult blood positive. 7. Acute on chronic systolic CHF ejection fraction of 40 to 45% with severe pulmonary hypertension, moderate tricuspid regurgitation. 8. Enterococcus bacteremia on antibiotics. 9. Hypokalemia from diuresis. Being replaced. Plan: Maintain oral Lasix. Blood glucose control. Hold off on IV iron due to active infection. Continue to hold Cozaar as blood pressure is on the lower end. Avoid nephrotoxins. Continue to monitor renal function and urine output. Preserved ejection fraction noted on echocardiogram.
[2025-03-11] MEDS ORDERED: AMPICILLIN 2,000 MG in SODIUM CHLORIDE 0.9% 100 ML IVPB SCH (12:00)
[2025-03-11 12:11] LABS: Glucose,Whole Blood 226 mg/dL (70-110)
[2025-03-11] MEDS: cefTRIAXone 2 GM in DEXTROSE 5% IN WATER 50 ML IVPB SCH (13:23)
--- NOTE | 2025-03-11 14:16 | P.PN ---
Subjective Progress Note Date: 03/10/25 Principal diagnosis: Reason for follow-up is bacteremia Patient is a 80-year-old female with multiple comorbidities including type 2 diabetes mellitus hypertension hyperlipidemia atrial fibrillation coronary artery disease did have TAVR in 2018 subsequently open aortic valve replacement MVR and tricuspid valve repair done at [facility] on 05/20/2024 recently admitted to hospital and treated for COVID-19 pneumonia now being admitted to the hospital generalized weakness and did have a positive blood culture with Enterococcus On today's evaluation that is 03/10/2025,the patient denies any fever or any chills, patient is breathing comfortably on 6 L nasal cannula oxygen the patient denies chest pain shortness of breath and no significant cough, patient denies abdominal pain, no nausea vomiting or diarrhea. Patient did have white count 8.40 creatinine 1.06 Objective - Vital Signs Vital signs: Vital Signs Temp 99.0 F 03/10/25 04:00 Pulse 62 03/10/25 04:00 Resp 10 L 03/10/25 04:00 BP 109/57 03/10/25 04:00 Pulse Ox 97 03/10/25 04:00 FiO2 Intake & Output 03/09/25 03/10/25 03/10/25 18:59 06:59 18:59 Intake Total 350 Output Total 680 600 Balance -330 -600 Weight 116.2 kg Intake: Intake, IV Titration 200 Amount Ampicillin-Sulbactam 3 gm 200 In Sodium Chloride 0.9% 100 ml @ 200 mls/hr IVPB Q6H [facility] Rx#:[id number] Oral 150 Output: Urine 680 600 Other: Voiding Method Indwelling Catheter Indwelling Catheter - Exam GENERAL DESCRIPTION: An elderly female lying in bed in no distress RESPIRATORY SYSTEM: Unlabored breathing , decreased breath sounds at bases HEART: S1 S2 regular rate and rhythm , ABDOMEN: Soft , no tenderness EXTREMITIES: Swelling to the leg but no redness Stage II sacral wound but no intervention cellulitis - Labs CBC & Chem 7: 03/10/25 05:46 03/10/25 23:47 Labs: Abnormal Lab Results - Last 24 Hours (Table) 03/09/25 03/09/25 03/09/25 Range/Units 12:55 12:56 16:57 RBC (4.10-5.20) 10*6/uL Hgb (12.0-15.0) g/dL Hct (37.2-46.3) % Plt Count (140-440) 10*3/uL Immature Gran # (0.00-0.04) 10*3/uL Lymphocytes # (Manual) (1.0-4.8) k/uL Metamyelocytes # (Man) (0) k/uL Myelocytes # (Manual) (0) k/uL Nucleated RBCs (0-0) /100 WBC Immature Plt Fraction (1.1-6.1) % Sodium (137-145) mmol/L Potassium (3.5-5.1) mmol/L Chloride (98-107) mmol/L BUN (7-17) mg/dL Creatinine (0.52-1.04) mg/dL Glucose (74-99) mg/dL POC Glucose (mg/dL) 243 H 212 H 147 H (70-110) mg/dL 03/09/25 03/09/25 03/10/25 Range/Units 17:52 20:58 05:46 RBC 2.58 L (4.10-5.20) 10*6/uL Hgb 7.8 L (12.0-15.0) g/dL Hct 23.7 L (37.2-46.3) % Plt Count 32 L (140-440) 10*3/uL Immature Gran # 0.19 H (0.00-0.04) 10*3/uL Lymphocytes # (Manual) 0.76 L (1.0-4.8) k/uL Metamyelocytes # (Man) 0.08 H (0) k/uL Myelocytes # (Manual) 0.08 H (0) k/uL Nucleated RBCs 2 H (0-0) /100 WBC Immature Plt Fraction 13.8 H (1.1-6.1) % Sodium (137-145) mmol/L Potassium (3.5-5.1) mmol/L Chloride (98-107) mmol/L BUN (7-17) mg/dL Creatinine (0.52-1.04) mg/dL Glucose (74-99) mg/dL POC Glucose (mg/dL) 155 H 140 H (70-110) mg/dL 03/10/25 03/10/25 03/10/25 Range/Units 05:46 06:07 11:00 RBC (4.10-5.20) 10*6/uL Hgb (12.0-15.0) g/dL Hct (37.2-46.3) % Plt Count (140-440) 10*3/uL Immature Gran # (0.00-0.04) 10*3/uL Lymphocytes # (Manual) (1.0-4.8) k/uL Metamyelocytes # (Man) (0) k/uL Myelocytes # (Manual) (0) k/uL Nucleated RBCs (0-0) /100 WBC Immature Plt Fraction (1.1-6.1) % Sodium 130 L (137-145) mmol/L Potassium 3.4 L (3.5-5.1) mmol/L Chloride 94 L (98-107) mmol/L BUN 55 H (7-17) mg/dL Creatinine 1.06 H (0.52-1.04) mg/dL Glucose 128 H (74-99) mg/dL POC Glucose (mg/dL) 143 H 178 H (70-110) mg/dL Microbiology - Last 24 Hours (Table) 03/09/25 05:54 Blood Culture Gram Stain - Preliminary Blood Blood Culture - Preliminary Enterococcus faecalis 03/09/25 10:15 Blood Culture Gram Stain - Preliminary Blood 03/08/25 00:11 Blood Culture Gram Stain - Preliminary Blood Blood Culture - Preliminary Group D Enterococcus Molecular ID Assessment and Plan (1) Elevated liver enzymes Current Visit: Yes Status: Acute Code(s): R74.8 - ABNORMAL LEVELS OF OTHER SERUM ENZYMES SNOMED Code(s): 269772610 (2) Pressure ulcer of sacral region, stage 2 Current Visit: Yes Status: Acute Code(s): L89.152 - PRESSURE ULCER OF SACRAL REGION, STAGE 2 SNOMED Code(s): 58127684728192 (3) Bacteremia Current Visit: Yes Status: Acute Code(s): R78.81 - BACTEREMIA SNOMED Code(s): 7959506 Plan: 1patient presented hospitalized weakness which is likely multifactorial in this patient who did have hypotension white count is normal but did have a left shift source question abdominal has the patient have elevated liver enzymes though the ultrasound was inconclusive possible left lower lobe pneumonia this patient recently did have COVID-19 pneumonia 2-patient did have a stage II sacral pressure ulcer but no significant cellulitis continue with local wound care as ordered 3-patient blood culture came positive with Enterococcus faecalis questionable endovascular source, currently waiting for echocardiogram report 4patient is currently being treated with Unasyn while waiting for the workup to be completed Daughter at the bedside question answered Dictation was produced using [employer] dictation software. please excuse any grammatical, word or spelling errors. Time with Patient: Less than 30
--- NOTE | 2025-03-11 14:17 | P.PN ---
Subjective Progress Note Date: 03/11/25 Principal diagnosis: Reason for follow-up is bacteremia Patient is a 80-year-old female with multiple comorbidities including type 2 diabetes mellitus hypertension hyperlipidemia atrial fibrillation coronary artery disease did have TAVR in 2018 subsequently open aortic valve replacement MVR and tricuspid valve repair done at [facility] on 05/20/2024 recently admitted to hospital and treated for COVID-19 pneumonia now being admitted to the hospital generalized weakness and did have a positive blood culture with Enterococcus On today's evaluation that is 03/11/2025,the patient remains to be afebrile, patient is on 4 L nasal cannula supplemental oxygen and denies any shortness of breath no chest pain or cough.Patient denies having any nausea or vomiting, no abdominal pain and no diarrhea has been reported. No new labs has been obtained today, blood culture from 03/09/2025 also came back positive 2D echo did not mention any vegetation Objective - Vital Signs Vital signs: Vital Signs Temp 97.4 F L 03/11/25 08:10 Pulse 66 03/11/25 09:00 Resp 16 03/11/25 09:00 BP 99/60 03/11/25 09:00 Pulse Ox 95 03/11/25 09:00 FiO2 Intake & Output 03/10/25 03/11/25 03/11/25 18:59 06:59 18:59 Intake Total 850 450 Output Total 1500 1100 Balance -650 -650 Weight 118.2 kg Intake: IV 600 450 Ampicillin-Sulbactam 3 gm 200 In Sodium Chloride 0.9% 100 ml @ 200 mls/hr IVPB Q6H LILIYA Rx#:[id number] Potassium Chloride 10 meq 400 450 In Water For Injection 1 100ml.bag @ 100 mls/hr IVPB Q1HR LILIYA Rx#: [id number] Oral 250 Output: Urine 1500 1100 Other: Voiding Method Indwelling Catheter Indwelling Catheter - Exam GENERAL DESCRIPTION: An elderly female lying in bed in no distress RESPIRATORY SYSTEM: Unlabored breathing , decreased breath sounds at bases HEART: S1 S2 regular rate and rhythm , ABDOMEN: Soft , no tenderness EXTREMITIES: Swelling to the leg but no redness Stage II sacral wound but no intervention cellulitis - Labs CBC & Chem 7: 03/10/25 05:46 03/10/25 23:47 Labs: Abnormal Lab Results - Last 24 Hours (Table) 03/10/25 03/10/2503/10/25 Range/Units 13:43 18:06 18:44 POC Glucose (mg/dL) 227 H 170 H 192 H (70-110) mg/dL 03/10/25 03/11/25 Range/Units 21:08 06:50 POC Glucose (mg/dL) 203 H 115 H (70-110) mg/dL Microbiology - Last 24 Hours (Table) 03/09/25 10:15 Blood Culture Gram Stain - Final Blood Blood Culture - Final Enterococcus faecalis 03/09/25 05:54 Blood Culture Gram Stain - Preliminary Blood Blood Culture - Preliminary Enterococcus faecalis 03/08/25 00:11 Blood Culture Gram Stain - Final Blood Blood Culture - Final Enterococcus faecalis Molecular ID Assessment and Plan (1) Elevated liver enzymes Current Visit: Yes Status: Acute Code(s): R74.8 - ABNORMAL LEVELS OF OTHER SERUM ENZYMES SNOMED Code(s): 498651584 (2) Pressure ulcer of sacral region, stage 2 Current Visit: Yes Status: Acute Code(s): L89.152 - PRESSURE ULCER OF SACRAL REGION, STAGE 2 SNOMED Code(s): 39857713629856 (3) Bacteremia Current Visit: Yes Status: Acute Code(s): R78.81 - BACTEREMIA SNOMED Code(s): 8194235 Plan: 1patient presented hospitalized weakness which is likely multifactorial in this patient who did have hypotension white count is normal but did have a left shift source question abdominal has the patient have elevated liver enzymes though the ultrasound was inconclusive possible left lower lobe pneumonia this patient recently did have COVID-19 pneumonia 2-patient did have a stage II sacral pressure ulcer but no significant cellulitis continue with local wound care as ordered 3-patient did have persistent bacteremia with Enterococcus faecalis questionable endovascular source, 2D echocardiogram did not mention any vegetation will benefit from MELISSA this was discussed with admitting team 4patient empiric adjusted to ampicillin and Rocephin gentamicin could not be used because of her kidney function as high clinic suspicious for endocarditis blood cultures also repeated to document clearance of her bacteremia Dictation was produced using [employer] dictation software. please excuse any grammatical, word or spelling errors. Time with Patient: Less than 30
[2025-03-11] MEDS ORDERED: MIDAZOLAM 2 MG/2 ML VIAL IV PRN (14:21)
[2025-03-11] MEDS ORDERED: fentaNYL (PF) 50 MCG/ML 5 ML AMP IVP PRN (14:21)
--- NOTE | 2025-03-11 16:07 | P.PN ---
Subjective Progress Note Date: 03/11/25 80-year-old female with history of mitral valve replacement congestive heart failure EF of around 40 to 45% came in with complaints of generalized weakness. Patient is found to be hyponatremic. Patient is on 6 L of oxygen usually uses 4 to 5 L at home. Patient does have history of obstructive sleep apnea for which patient is on BiPAP at home. Patient had no fever or chills patient does not have any leukocytosis patient does not have any complaints of dysuria suprapubic pain urine is essentially within normal limits chest x-ray showed some nonspecific infiltrate not consistent with pneumonia. Will obtain a procalcitonin level patient's BNP is elevated to 8000 patient's previous BNP was 5000. Patient does have bilateral lower extremity pedal edema. Patient does have stage II decubitus ulcers does not appear to be infected. Patient was started on vancomycin probably for that reason in ER. Patient has minimally elevated troponins. 03/09/2025 Patient is evaluated today in follow up in the intensive care unit. Patient remains on antibiotics in the form of IV Unasyn. Her blood culture did come back positive for Enterococcus faecalis. It was repeated today and ID is following. Labs today reveal a white blood cell count of 6.20, hemoglobin 8.1, sodium 127, BUN of 63 creatinine of 1.26. AST and ALT are significantly improved. 03/10/2025 Patient evaluated in the intensive care unit remains on CPAP and tolerating well. More awake and alert. Repeat blood culture positive for enterococcus. Limited echocardiogram reveals EF 55-60%, mild pulmonary hypertension, mild TR, there is mitral valve and tricuspid valve repair as well as AVR. Technically difficult study. Does not appear to be any vegetation noted. Remains on IV unasyn. white blood cell count 8.40, hgb 7.8, platelet 32, sodium 130, potassium 4.2, BUN 55, creatinine 1.06. 03/11/2025 Patient is evaluated today in follow up; has been moved out of the ICU. Patient currently on oxygen via nasal cannula. Patient continues with persistent bacteremia with enterococcus faecalis and discussed echocardiogram findings with ID and recommendations made for MELISSA. Pt. will be going for the MELISSA on 03/12/[address] Watson. She will need to be NPO after midnight. Patient remains on IV unasyn and IV ceftriaxone. Blood pressure into the 90s this morning and a 500 cc bolus was given. She is tolerating oxygen via nasal cannula and also utilizing the CPAP at the bedside. Patient is more awake alert and oriented at this time. Review of Systems Constitutional: Denied any fatigue denied any fever. Cardio vascular: denied any chest pain, palpitations Gastrointestinal: denied any nausea, vomiting, diarrhea Pulmonary: Denied any shortness of breath cough Neurologic denied any new focal deficits All inpatient medications were reviewed and appropriate changes in these medications as dictated in the interval history and assessment and plan. PHYSICAL EXAMINATION: GENERAL: The patient is alert and oriented x3,, he is in some respiratory distress without BiPAP. Obese HEENT: Pupils are round and equally reacting to light. EOMI. No scleral icterus. No conjunctival pallor. Normocephalic, atraumatic. No pharyngeal erythema. No thyromegaly. CARDIOVASCULAR: S1 and S2 present. No murmurs, rubs, or gallops. PULMONARY: Chest is clear to auscultation, no wheezing or crackles. ABDOMEN: Soft, nontender, nondistended, normoactive bowel sounds. No palpable organomegaly. MUSCULOSKELETAL: No joint swelling or deformity. EXTREMITIES: No cyanosis, clubbing, bilateral lower extremity pedal edema NEUROLOGICAL: Gross neurological examination did not reveal any focal deficits. SKIN: No rashes. Assessment and plan - Sepsis and enterococcus bacteremia POA as blood culture collected on admission positive for enterococcus source of infection could be stage 2 decubitus ulceration vs possible infective endocarditis - Congestive heart failure chronic systolic function with acute exacerbation. - Hypervolemic hyponatremia - Acute on chronic hypoxic respiratory failure secondary to possible pulmonary edema. - Type 2 diabetes mellitus uncontrolled elevated blood sugars - History of atrial fibrillation: Patient is presently rate controlled patient probably has paroxysmal A-fib on Eliquis at home - History of GI bleed in the past presently does not appear to have acute bleed or GI bleed at this time we will give IV iron transfusion will not require any blood transfusion at the time patient is receiving as needed blood transfusions and IV iron transfusions as an outpatient - History of pancytopenia follows with hematology outpatient this is because of the slow GI bleed - History of bioprosthetic aortic valve replacement - Sleep apnea on CPAP machine -Transaminitis likely from sepsis improving -Hypothyroidism DVT prophylaxis: Anticoagulation as mentioned above GI prophylaxis: Protonix Full Code Plan Patient has been transitioned to oral Lasix 40 mg daily Patient is on IV Unasyn, IV ceftriaxone with repeat blood cultures pending. ID was consulted for the positive blood cultures. MELISSA was recommended to rule out infective endocarditis due to the persistent bacteremia with enterococcus faecalis. Wound care on for the stage II sacral decubitus ulcer continue with pressure offloading patient will be started on 40 units of Lantus 20 units of Premeal insulin along with sliding scale titration depending on her blood sugars patient received 1 dose of Eliquis which is being held at this time with c oncerns of GI bleed, and her family she has a slow GI bleed which is followed closely by Dr Bailee Allen ,her hemoglobin stayed stable for last 2 to 3 months receives IV iron transfusion as an outpatient. Repeat blood work in the morning PT/OT consulation The impression and plan of care has been dictated by Leti Robertson, Nurse Practitioner as directed. Dr. Stefan MD I have performed a history and physical examination and medical decision making of this patient, discussed the same with the dictator, and agree with the dictators assessment and plan as written, documented as a scribe. Based on total visit time, I have performed more than 50% of this visit. Objective - Vital Signs Vital signs: Vital Signs Temp 97.7 F 03/11/25 14:00 Pulse 60 03/11/25 14:00 Resp 17 03/11/25 14:00 BP 105/53 03/11/25 14:00 Pulse Ox 100 03/11/25 14:00 FiO2 Intake & Output 03/10/25 03/11/25 03/11/25 18:59 06:59 18:59 Intake Total 850 450 Output Total 1500 1100 1050 Balance -650 -650 -1050 Weight 118.2 kg Intake: IV 600 450 Ampicillin-Sulbactam 3 gm 200 In Sodium Chloride 0.9% 100 ml @ 200 mls/hr IVPB Q6H LIL[facility]YA Rx#:[id number] Potassium Chloride 10 meq 400 450 In Water For Injection 1 100ml.bag @ 100 mls/hr IVPB Q1HR LILIYA Rx#: [id number] Oral 250 Output: Urine 1500 1100 1050 Other: Voiding Method Indwelling Catheter Indwelling Catheter Indwelling Catheter - Labs CBC & Chem 7: 03/10/25 05:46 03/10/25 23:47 Labs: Abnormal Lab Results - Last 24 Hours (Table) 0403/10/25 03/10/25 Range/Units 18:06 18:44 21:08 POC Glucose (mg/dL) 170 H 192 H 203 H (70-110) mg/dL 03/11/25 03/11/25 Range/Units 06:50 12:10 POC Glucose (mg/dL) 115 H 226 H (70-110) mg/dL Microbiology - Last 24 Hours (Table) 03/09/25 10:15 Blood Culture Gram Stain - Final Blood Blood Culture - Final Enterococcus faecalis 03/09/25 05:54 Blood Culture Gram Stain - Preliminary Blood Blood Culture - Preliminary Enterococcus faecalis 03/08/25 00:11 Blood Culture Gram Stain - Final Blood Blood Culture - Final Enterococcus faecalis Molecular ID Assessment and Plan Time with Patient: Less than 30
[2025-03-11] MEDS: AMPICILLIN 2,000 MG in SODIUM CHLORIDE 0.9% 100 ML IVPB SCH (16:13)
[2025-03-11 16:54] LABS: Glucose,Whole Blood 223 mg/dL (70-110)
[2025-03-11 17:37] LABS: African American GFR (CKD) 65 (>60 ml/min/1.73 sqM); Anion Gap 13 mmol/L; Blood Urea Nitrogen 43 mg/dL (7-17); Calcium 8.7 mg/dL (8.4-10.2); Carbon Dioxide 25 mmol/L (22-30); Chloride 95 mmol/L (98-107); Glucose 196 mg/dL (74-99); Non-African American GFR(CKD) 56 (>60 ml/min/1.73 sqM); Potassium 3.5 mmol/L (3.5-5.1); Sodium 133 mmol/L (137-145)
[2025-03-11] MEDS: BENZOCAINE SPRAY 1 EACH MM SCH (18:20)
[2025-03-11 20:41] LABS: Glucose,Whole Blood 156 mg/dL (70-110)
[2025-03-11] MEDS ORDERED: cefTRIAXone 2 GM in DEXTROSE 5% IN WATER 50 ML IVPB SCH (21:00)
[2025-03-12 04:54] LABS: African American GFR (CKD) 71 (>60 ml/min/1.73 sqM); Anion Gap 9 mmol/L; Blood Urea Nitrogen 43 mg/dL (7-17); Calcium 8.7 mg/dL (8.4-10.2); Carbon Dioxide 29 mmol/L (22-30); Chloride 96 mmol/L (98-107); Glucose 51 mg/dL (74-99); Magnesium 1.9 mg/dL (1.6-2.3); Non-African American GFR(CKD) 62 (>60 ml/min/1.73 sqM); Potassium 3.7 mmol/L (3.5-5.1); Sodium 134 mmol/L (137-145)
[2025-03-12 05:27] LABS: Glucose,Whole Blood 53 mg/dL (70-110)
[2025-03-12] MEDS ORDERED: DEXTROSE 50% SYRINGE 50 ML IVP PRN (05:29)
[2025-03-12] MEDS: DEXTROSE 50% SYRINGE 50 ML IVP PRN (05:35)
[2025-03-12 05:59] LABS: Glucose,Whole Blood 103 mg/dL (70-110)
[2025-03-12] MEDS ORDERED: SODIUM CHLORIDE 0.9% 100 ML BAG ONE (08:00)
[2025-03-12] MEDS ORDERED: AMPICILLIN 2,000 MG VIAL IVPB ONE (08:00)
[2025-03-12 08:05] LABS: Glucose,Whole Blood 104 mg/dL (70-110)
[2025-03-12] MEDS: DEXTROSE 5%-0.9% NACL 1,000 ML IV SCH (08:15)
[2025-03-12] MEDS: SODIUM CHLORIDE 0.9% 500 ML 500 ML IV ONE (10:50)
[2025-03-12] MEDS: BENZOCAINE SPRAY 1 EACH MM ONE (10:50)
[2025-03-12] MEDS: fentaNYL (PF) 50 MCG/ML 2 ML AMP IVP ONE (11:20)
[2025-03-12] MEDS: MIDAZOLAM 2 MG/2 ML VIAL IVP ONE (11:20)
--- NOTE | 2025-03-12 11:30 | P.PN ---
Subjective Patient is seen in follow-up for acute kidney injury on chronic kidney disease and hyponatremia. Renal function improved. Sodium level up to 134. Nonoliguric. Tolerating oral intake. Vital signs are stable. General: No acute distress. HEENT: Head exam is unremarkable. On CPAP. LUNGS: No audible rhonchi or wheezes. HEART: Rate and Rhythm are regular. ABDOMEN: Nontender. EXTREMITITES: Trace edema. Objective - Vital Signs Vital signs: Vital Signs Temp 97.7 F 03/12/25 07:15 Pulse 62 03/12/25 10:51 Resp 16 03/12/25 10:51 BP 76/46 03/12/25 10:51 Pulse Ox 100 03/12/25 10:51 FiO2 Intake & Output 03/11/25 03/12/25 03/12/25 18:59 06:59 18:59 Output Total 1250 650 Balance -1250 -650 Weight 119 kg Output: Urine 1250 650 Other: Voiding Method Indwelling Catheter Indwelling Catheter - Labs CBC & Chem 7: 03/10/25 05:46 03/12/25 04:10 Labs: Abnormal Lab Results - Last 24 Hours (Table) 03/11/25 03/11/25 03/11/25 Range/Units 12:10 16:34 16:53 Sodium 133 L (137-145) mmol/L Chloride 95 L (98-107) mmol/L BUN 43 H (7-17) mg/dL Glucose 196 H (74-99) mg/dL POC Glucose (mg/dL) 226 H 223 H (70-110) mg/dL 03/11/25 03/12/25 03/12/25 Range/Units 20:40 04:10 05:25 Sodium 134 L (137-145) mmol/L Chloride 96 L (98-107) mmol/L BUN 43 H (7-17) mg/dL Glucose 51 L (74-99) mg/dL POC Glucose (mg/dL) 156 H 53 L (70-110) mg/dL Microbiology - Last 24 Hours (Table) 03/09/25 10:15 Blood Culture Gram Stain - Final Blood Blood Culture - Final Enterococcus faecalis 03/09/25 05:54 Blood Culture Gram Stain - Preliminary Blood Blood Culture - Preliminary Enterococcus faecalis Assessment and Plan Plan: Assessment: 1. Acute kidney injury secondary to ATN secondary to hypotension. Also concern for cardiorenal syndrome. Creatinine 1.46 on admission - 0.89 today. UA fairly benign. 2. Chronic kidney disease stage IIIa with baseline creatinine 1.2-1.3 secondary to diabetic kidney disease. 3. Volume overload. On Lasix. Improved. 4. Hyponatremia, hypervolemic. Also component of hypertonicity from hyperglycemia. Improving. Urine sodium less than 20 and urine osmolality 417. 5. Diabetes mellitus. 6. Anemia. Rule out iron deficiency. Questionable GI bleed. Stool for occult blood positive. 7. Acute on chronic systolic CHF ejection fraction of 40 to 45% with severe pulmonary hypertension, moderate tricuspid regurgitation. 8. Enterococcus bacteremia on antibiotics. 9. Hypokalemia from diuresis. Replaced. Plan: Hold Lasix due to hypotension. Started on D5 normal saline at 50 cc an hour this morning. Blood glucose control. Hold off on IV iron due to active infection. Avoid nephrotoxins. Continue to monitor renal function and urine output. Preserved ejection fraction noted on echocardiogram. Repeat labs in the morning.
--- NOTE | 2025-03-12 11:41 | P.PCN ---
Date of Procedure: 03/12/25 Description of Procedure: Indication: Bacteremia Procedure Description: After explaining the procedure to the patient, it's risk and complications, blood pressure, heart rate and O2 saturation were monitored. The throat was sprayed with Cetacaine. Patient received 1 mg intravenous Versed, 50 mcg intravenous fentanyl. The probe was introduced into the esophagus without difficulty. Images were obtained. Following that, the probe was removed. There was no immediate complication. Findings: Left atrial size is mildly dilated, left atrial appendage is normal. Left ventricular size and systolic function are normal. A bioprosthetic aortic valve is noted with normal functioning. Tricuspid valve annuloplasty was noted with no evidence of vegetations. Mitral valve annuloplasty was noted with normal motion of the leaflets but with a vegetation noted on the atrial side measuring 0.9 mm on the annulus and does not appear to be attached to the leaflet. Descending thoracic aorta appears to be normal. No pericardial effusion was noted. Contrast bubble study revealed no shunting across the interatrial septum with Valsalva maneuver. Doppler: Pulse wave and color Doppler were obtained, and revealed trace to mild mitral and mild tricuspid regurgitation. There was no shunting by color Doppler study Conclusion: 1. Normal appearance of the left atrial appendage 2. Normal ventricular size and systolic function 3. Evidence of vegetations on the atrial side of the mitral valve annuloplasty, measuring 0.9 mm. 4. Trace to mild mitral and mild tricuspid regurgitation 5. No shunting across the interatrial septum Duration of sedation 15 minutes.
[2025-03-12 12:14] LABS: Glucose,Whole Blood 126 mg/dL (70-110)
[2025-03-12] MEDS: AMPICILLIN 2,000 MG in SODIUM CHLORIDE 0.9% 100 ML IVPB SCH (12:15)
[2025-03-12] MEDS: POTASSIUM CHLORIDE ER 20 MEQ TAB.ER PO STA (12:25)
[2025-03-12 13:02] LABS: HCT 22.3 % (37.2-46.3); HGB 7.3 g/dL (12.0-15.0); MCH 30.4 pg (27.0-32.0); MCHC 32.7 g/dL (32.0-37.0); MCV 92.9 fL (80.0-97.0); Mean Platelet Volume 11.4 fL (9.5-12.2); WBC 9.01 10*3/uL (4.50-10.00)
[2025-03-12] MEDS: SODIUM CHLORIDE 0.9% 1,000 ML IV SCH (13:43)
[2025-03-12 13:57] LABS: Platelet Count 49 10*3/uL (140-440)
--- NOTE | 2025-03-12 15:40 | P.PN ---
Subjective Progress Note Date: 03/12/25 Principal diagnosis: Reason for follow-up is bacteremia Patient is a 80-year-old female with multiple comorbidities including type 2 diabetes mellitus hypertension hyperlipidemia atrial fibrillation coronary artery disease did have TAVR in 2018 subsequently open aortic valve replacement MVR and tricuspid valve repair done at [facility] on 05/20/2024 recently admitted to hospital and treated for COVID-19 pneumonia now being admitted to the hospital generalized weakness and did have a positive blood culture with Enterococcus On today's evaluation that is 03/12/2025, the patient continues to be afebrile, the patient is on 6 L nasal cannula oxygen and breathing comfortably, the Pt denies having any chest pain or cough, the patient denies having any abdominal pain no vomiting or any diarrhea has been reported by the nursing staff. Patient did have a white count of 9.01 creatinine 0.89 blood culture from 03/11/2025 so far pending MELISSA was suggestive of mitral wall endocarditis 0.9 mm Objective - Vital Signs Vital signs: Vital Signs Temp 97.7 F 03/12/25 07:15 Pulse 76 03/12/25 12:17 Resp 16 03/12/25 11:46 BP 133/69 03/12/25 12:17 Pulse Ox 95 03/12/25 11:46 FiO2 Intake & Output 03/11/25 03/12/25 03/12/25 18:59 06:59 18:59 Intake Total 100 Output Total 1250 650 Balance -1250 -650 100 Weight 119 kg Intake: IV 100 Output: Urine 1250 650 Other: Voiding Method Indwelling Catheter Indwelling Catheter Indwelling Catheter - Exam GENERAL DESCRIPTION: An elderly female lying in bed in no distress RESPIRATORY SYSTEM: Unlabored breathing , decreased breath sounds at bases HEART: S1 S2 regular rate and rhythm , ABDOMEN: Soft , no tenderness EXTREMITIES: Swelling to the leg but no redness Stage II sacral wound but no intervention cellulitis - Labs CBC & Chem 7: 03/12/25 12:50 03/12/25 04:10 Labs: Abnormal Lab Results - Last 24 Hours (Table) 03/11/25 03/11/25 03/11/25 Range/Units 16:34 16:53 20:40 Sodium 133 L (137-145) mmol/L Chloride 95 L (98-107) mmol/L BUN 43 H (7-17) mg/dL Glucose 196 H (74-99) mg/dL POC Glucose (mg/dL) 223 H 156 H (70-110) mg/dL 03/12/25 03/12/25 03/12/25 Range/Units 04:10 05:25 12:13 Sodium 134 L (137-145) mmol/L Chloride 96 L (98-107) mmol/L BUN 43 H (7-17) mg/dL Glucose 51 L (74-99) mg/dL POC Glucose (mg/dL) 53 L 126 H (70-110) mg/dL Microbiology - Last 24 Hours (Table) 03/09/25 10:15 Blood Culture Gram Stain - Final Blood Blood Culture - Final Enterococcus faecalis 03/09/25 05:54 Blood Culture Gram Stain - Preliminary Blood Blood Culture - Preliminary Enterococcus faecalis Assessment and Plan (1) Elevated liver enzymes Current Visit: Yes Status: Acute Code(s): R74.8 - ABNORMAL LEVELS OF OTHER SERUM ENZYMES SNOMED Code(s): 111399779 (2) Pressure ulcer of sacral region, stage 2 Current Visit: Yes Status: Acute Code(s): L89.152 - PRESSURE ULCER OF SACRAL REGION, STAGE 2 SNOMED Code(s): 65842572725828 (3) Bacteremia Current Visit: Yes Status: Acute Code(s): R78.81 - BACTEREMIA SNOMED Code(s): 6531209 Plan: 1patient presented hospitalized weakness which is likely multifactorial in this patient who did have hypotension white count is normal but did have a left shift source question abdominal has the patient have elevated liver enzymes though the ultrasound was inconclusive possible left lower lobe pneumonia this patient recently did have COVID-19 pneumonia 2-patient did have a stage II sacral pressure ulcer but no significant cellulitis continue with local wound care as ordered 3-patient did have persistent bacteremia with Enterococcus faecalis questionable endovascular source, 2D echocardiogram did not mention any vegetation, the patient is status post MELISSA with evidence of mitral valve endocarditis 4patient currently being treated with ampicillin and Rocephin for endocarditis blood cultures also repeated to document clearance of her bacteremia, will get a PICC line when she clear her bacteremia daughter at the bedside multiple question answered Dictation was produced using [employer] dictation software. please excuse any grammatical, word or spelling errors. Time with Patient: Less than 30
[2025-03-12 16:29] LABS: Glucose,Whole Blood 199 mg/dL (70-110)
[2025-03-12 21:33] LABS: Glucose,Whole Blood 310 mg/dL (70-110)
--- NOTE | 2025-03-13 01:19 | P.PN ---
Subjective Progress Note Date: 03/12/25 80-year-old female with history of mitral valve replacement congestive heart failure EF of around 40 to 45% came in with complaints of generalized weakness. Patient is found to be hyponatremic. Patient is on 6 L of oxygen usually uses 4 to 5 L at home. Patient does have history of obstructive sleep apnea for which patient is on BiPAP at home. Patient had no fever or chills patient does not have any leukocytosis patient does not have any complaints of dysuria suprapubic pain urine is essentially within normal limits chest x-ray showed some nonspecific infiltrate not consistent with pneumonia. Will obtain a procalcitonin level patient's BNP is elevated to 8000 patient's previous BNP was 5000. Patient does have bilateral lower extremity pedal edema. Patient does have stage II decubitus ulcers does not appear to be infected. Patient was started on vancomycin probably for that reason in ER. Patient has minimally elevated troponins. 03/09/2025 Patient is evaluated today in follow up in the intensive care unit. Patient remains on antibiotics in the form of IV Unasyn. Her blood culture did come back positive for Enterococcus faecalis. It was repeated today and ID is following. Labs today reveal a white blood cell count of 6.20, hemoglobin 8.1, sodium 127, BUN of 63 creatinine of 1.26. AST and ALT are significantly improved. 03/10/2025 Patient evaluated in the intensive care unit remains on CPAP and tolerating well. More awake and alert. Repeat blood culture positive for enterococcus. Limited echocardiogram reveals EF 55-60%, mild pulmonary hypertension, mild TR, there is mitral valve and tricuspid valve repair as well as AVR. Technically difficult study. Does not appear to be any vegetation noted. Remains on IV unasyn. white blood cell count 8.40, hgb 7.8, platelet 32, sodium 130, potassium 4.2, BUN 55, creatinine 1.06. 03/11/2025 Patient is evaluated today in follow up; has been moved out of the ICU. Patient currently on oxygen via nasal cannula. Patient continues with persistent bacteremia with enterococcus faecalis and discussed echocardiogram findings with ID and recommendations made for MELISSA. Pt. will be going for the MELISSA on 03/12/[address] Watson. She will need to be NPO after midnight. Patient remains on IV unasyn and IV ceftriaxone. Blood pressure into the 90s this morning and a 500 cc bolus was given. She is tolerating oxygen via nasal cannula and also utilizing the CPAP at the bedside. Patient is more awake alert and oriented at this time. 03/12/2025 Patient is seen in follow-up today currently n.p.o. continues on her CPAP ronak ne scheduled to undergo MELISSA with cardiology following. Multiple consultations following including infectious disease maintained on IV antibiotics and continues to have persistent bacteremia with Enterococcus awaiting MELISSA report. Patient is afebrile with no reports chest pain or worsening shortness of breath. Review of Systems Constitutional: Reports of fatigue fatigue, denied any fever. Cardio vascular: denied any chest pain, palpitations Gastrointestinal: denied any nausea, vomiting, diarrhea Pulmonary: Denied any shortness of breath cough Neurologic denied any new focal deficits All inpatient medications were reviewed and appropriate changes in these medications as dictated in the interval history and assessment and plan. PHYSICAL EXAMINATION: GENERAL: The patient is a 80-year-old female who is lethargic although arousable, alert and oriented x2,, currently on her CPAP, elderly appearing, morbidly obese HEENT: Pupils are round and equally reacting to light. EOMI. No scleral icterus. No conjunctival pallor. Normocephalic, atraumatic. No pharyngeal erythema. No thyromegaly. CARDIOVASCULAR: S1 and S2 muffled PULMONARY: Diminished breath sounds bilaterally otherwise chest is clear to auscultation, no wheezing or crackles. ABDOMEN: Soft, obese, nontender, nondistended, normoactive bowel sounds. No palpable organomegaly. MUSCULOSKELETAL: No joint swelling or deformity. EXTREMITIES: No cyanosis, clubbing, bilateral lower extremity pedal edema NEUROLOGICAL: Gross neurological examination did not reveal any focal deficits. Diffusely weak SKIN: No rashes. Assessment: - Sepsis and enterococcus bacteremia POA as blood culture collected on admission positive for enterococcus, status post MELISSA which was positive for mitral valve endocarditis - Congestive heart failure chronic systolic function with acute exacerbation. - Hypervolemic hyponatremia, improving - Acute on chronic hypoxic respiratory failure secondary to pulmonary edema. - Type 2 diabetes mellitus uncontrolled with elevated blood sugars - History of atrial fibrillation: Patient is presently rate controlled patient probably has paroxysmal A-fib on Eliquis at home - History of GI bleed in the past presently does not appear to have acute bleed or GI bleed at this time we will give IV iron transfusion will not require any blood transfusion at the time patient is receiving as needed blood transfusions and IV iron transfusions as an outpatient - History of pancytopenia follows with hematology outpatient this is because of the slow GI bleed - History of bioprosthetic aortic valve replacement - Sleep apnea on CPAP machine -Transaminitis likely from sepsis improving -Hypothyroidism - Morbid obesity with a BMI of 46.5 DVT prophylaxis: Anticoagulation as mentioned above GI prophylaxis: Protonix Full Code Plan: Patient has been transitioned to oral Lasix 40 mg daily with cardiology following. Patient did undergo MELISSA today showing mitral valve endocarditis Infectious disease following and is continued on antibiotics. Most recent repeat blood cultures negative thus far for 24 hours. Will need to monitor for clearance of bacteremia and patient will receive a PICC line for outpatient IV antibiotic therapy. Wound care on for the stage II sacral decubitus ulcer continue with pressure of floading patient will be continued on Accu-Cheks ACHS and will adjust insulins accordingly patient received 1 dose of Eliquis which is being held at this time with concerns of GI bleed, and her family she has a slow GI bleed which is followed closely by Dr Bailee Allen Repeat blood work in the morning and monitor closely PT/OT evaluation in the event patient requires ECF on discharge The impression and plan of care has been dictated by Leti Robertson Nurse Practitioner as directed. Dr. Stefan MD I have performed a history and physical examination and medical decision making of this patient, discussed the same with the dictator, and agree with the dictators assessment and plan as written, documented as a scribe. Based on total visit time, I have performed more than 50% of this visit. Objective - Vital Signs Vital signs: Vital Signs Temp 97.7 F 03/12/25 07:15 Pulse 62 03/12/25 07:15 Resp 17 03/12/25 07:15 BP 109/64 03/12/25 07:15 Pulse Ox 96 03/12/25 07:15 FiO2 Intake & Output 03/11/25 03/12/25 03/12/25 18:59 06:59 18:59 Output Total 1250 650 Balance -1250 -650 Weight 119 kg Output: Urine 1250 650 Other: Voiding Method Indwelling Catheter Indwelling Catheter - Labs CBC & Chem 7: 03/12/25 12:50 03/12/25 04:10 Labs: Abnormal Lab Results - Last 24 Hours (Table) 03/11/25 03/11/25 03/11/25 Range/Units 12:10 16:34 16:53 Sodium 133 L (137-145) mmol/L Chloride 95 L (98-107) mmol/L BUN 43 H (7-17) mg/dL Glucose 196 H (74-99) mg/dL POC Glucose (mg/dL) 226 H 223 H (70-110) mg/dL 03/11/25 03/12/25 03/12/25 Range/Units 20:40 04:10 05:25 Sodium 134 L (137-145) mmol/L Chloride 96 L (98-107) mmol/L BUN 43 H (7-17) mg/dL Glucose 51 L (74-99) mg/dL POC Glucose (mg/dL) 156 H 53 L (70-110) mg/dL Microbiology - Last 24 Hours (Table) 03/09/25 10:15 Blood Culture Gram Stain - Final Blood Blood Culture - Final Enterococcus faecalis 03/09/25 05:54 Blood Culture Gram Stain - Preliminary Blood Blood Culture - Preliminary Enterococcus faecalis
[2025-03-13 01:51] LABS: Glucose,Whole Blood 274 mg/dL (70-110)
[2025-03-13 06:09] LABS: Glucose,Whole Blood 243 mg/dL (70-110)
[2025-03-13 11:28] LABS: BUN/Creat Ratio 30.36 Ratio (12.00-20.00); Blood Urea Nitrogen 33.4 mg/dL (9.0-27.0); Calcium 8.2 mg/dL (8.7-10.3); Carbon Dioxide 25.5 mmol/L (21.6-31.8); Chloride 94 mmol/L (96-109); Glucose 223 mg/dL (70-110); Magnesium 1.9 mg/dL (1.5-2.4); Potassium 3.4 mmol/L (3.5-5.5); Sodium 132 mmol/L (135-145)
[2025-03-13 11:50] LABS: Glucose,Whole Blood 181 mg/dL (70-110)
--- NOTE | 2025-03-13 12:10 | P.PN ---
Subjective Patient is seen for follow-up for acute kidney injury. Labs have improved with serum creatinine staying at 0.9 to 1.1 mg/dL. IV fluids discontinued Sodium is down to 132 today. No significant complaints. Objective - Vital Signs Vital signs: Vital Signs Temp 97.8 F 03/13/25 07:47 Pulse 62 03/13/25 07:47 Resp 17 03/13/25 07:47 BP 109/67 03/13/25 07:47 Pulse Ox 95 03/13/25 09:02 FiO2 Intake & Output 03/12/25 03/13/25 03/13/25 18:59 06:59 18:59 Intake Total 300 Output Total 900 900 Balance -600 -900 Weight 117.4 kg Intake: IV 100 Oral 200 Output: Urine 900 900 Other: Voiding Method Indwelling Catheter Indwelling Catheter Indwelling Catheter - Exam Patient is awake, comfortable, no acute distress Maintained on CPAP Examination of the heart S1 and S2 Examination of the lungs decreased breath sounds at the bases Abdomen is soft obese nontender Examination of lower extremities shows trace edema FACULTY PHYSICIAN exam grossly intact - Labs CBC & Chem 7: 03/12/25 12:50 03/13/25 05:50 Labs: Abnormal Lab Results - Last 24 Hours (Table) 03/12/25 03/12/25 03/12/25 Range/Units 12:13 12:50 16:27 RBC 2.40 L (4.10-5.20) 10*6/uL Hgb 7.3 L (12.0-15.0) g/dL Hct 22.3 L (37.2-46.3) % RDW 17.0 H (11.5-14.5) % Plt Count 49 L D (140-440) 10*3/uL Sodium (135-145) mmol/L Potassium (3.5-5.5) mmol/L Chloride (96-109) mmol/L Anion Gap (4.00-12.00) mmol/L BUN (9.0-27.0) mg/dL Est GFR (CKD-EPI) (>=60) BUN/Creatinine Ratio (12.00-20.00) Ratio Glucose (70-110) mg/dL POC Glucose (mg/dL) 126 H 199 H (70-110) mg/dL Calcium (8.7-10.3) mg/dL 03/12/25 03/13/25 03/13/25 Range/Units 21:31 01:47 05:50 RBC (4.10-5.20) 10*6/uL Hgb (12.0-15.0) g/dL Hct (37.2-46.3) % RDW (11.5-14.5) % Plt Count (140-440) 10*3/uL Sodium 132 L (135-145) mmol/L Potassium 3.4 L (3.5-5.5) mmol/L Chloride 94 L (96-109) mmol/L Anion Gap 12.50 H (4.00-12.00) mmol/L BUN 33.4 H (9.0-27.0) mg/dL Est GFR (CKD-EPI) 51 L (>=60) BUN/Creatinine Ratio 30.36 H (12.00-20.00) Ratio Glucose 223 H (70-110) mg/dL POC Glucose (mg/dL) 310 H 274 H (70-110) mg/dL Calcium 8.2 L (8.7-10.3) mg/dL 03/13/25 03/13/25 Range/Units 06:07 11:49 RBC (4.10-5.20) 10*6/uL Hgb (12.0-15.0) g/dL Hct (37.2-46.3) % RDW (11.5-14.5) % Plt Count (140-440) 10*3/uL Sodium (135-145) mmol/L Potassium (3.5-5.5) mmol/L Chloride (96-109) mmol/L Anion Gap (4.00-12.00) mmol/L BUN (9.0-27.0) mg/dL Est GFR (CKD-EPI) (>=60) BUN/Creatinine Ratio (12.00-20.00) Ratio Glucose (70-110) mg/dL POC Glucose (mg/dL) 243 H 181 H (70-110) mg/dL Calcium (8.7-10.3) mg/dL Microbiology - Last 24 Hours (Table) 03/11/25 12:00 Blood Culture - Preliminary Blood Assessment and Plan Assessment: 1. Acute kidney injury secondary to ATN secondary to hypotension. Also concern for cardiorenal syndrome. Creatinine 1.46 on admission -1.1 today. UA fairly benign. 2. Chronic kidney disease stage IIIa with baseline creatinine 1.2-1.3 secondary to diabetic kidney disease. 3. Volume overload. On Lasix. Improved. 4. Hyponatremia, hypervolemic. Also component of hypertonicity from hyperglycemia. Improving. Urine sodium less than 20 and urine osmolality 417. 5. Diabetes mellitus. 6. Anemia. Rule out iron deficiency. Questionable GI bleed. Stool for occult blood positive. 7. Acute on chronic systolic CHF ejection fraction of 40 to 45% with severe pulmonary hypertension, moderate tricuspid regurgitation. 8. Enterococcus bacteremia on antibiotics. 9. Hypokalemia from diuresis. Replaced. Plan: Continue off of IV fluids Replace potassium Repeat labs in a.m.
[2025-03-13] MEDS: POTASSIUM CHLORIDE ER 20 MEQ TAB.ER PO SCH (12:27)
--- NOTE | 2025-03-13 14:35 | P.PN ---
Subjective Progress Note Date: 03/13/25 Principal diagnosis: Reason for follow-up is bacteremia Patient is a 80-year-old female with multiple comorbidities including type 2 diabetes mellitus hypertension hyperlipidemia atrial fibrillation coronary artery disease did have TAVR in 2018 subsequently open aortic valve replacement MVR and tricuspid valve repair done at [facility] on 05/20/2024 recently admitted to hospital and treated for COVID-19 pneumonia now being admitted to the hospital generalized weakness and did have a positive blood culture with Enterococcus On today's evaluation that is 03/13/2025, Patient is afebrile patient is currently on 6 L CPAP and denies having any shortness of breath, the patient denies any chest pain or cough, the patient denies any nausea vomiting did not have any abdominal pain and no diarrhea complaining of some stuffed up nose. Patient did have a creatinine of 1.1 blood culture from 03/11/2025 so far pending Objective - Vital Signs Vital signs: Vital Signs Temp 97.8 F 03/13/25 07:47 Pulse 62 03/13/25 07:47 Resp 17 03/13/25 07:47 BP 109/67 03/13/25 07:47 Pulse Ox 95 03/13/25 09:02 FiO2 Intake & Output 03/12/25 03/13/25 03/13/25 18:59 06:59 18:59 Intake Total 300 Output Total 900 900 Balance -600 -900 Weight 117.4 kg Intake: IV 100 Oral 200 Output: Urine 900 900 Other: Voiding Method Indwelling Catheter Indwelling Catheter Indwelling Catheter - Exam GENERAL DESCRIPTION: An elderly female lying in bed in no distress RESPIRATORY SYSTEM: Unlabored breathing , decreased breath sounds at bases HEART: S1 S2 regular rate and rhythm , ABDOMEN: Soft , no tenderness EXTREMITIES: Swelling to the leg but no redness Stage II sacral wound but no intervention cellulitis - Labs CBC & Chem 7: 03/12/25 12:50 03/13/25 05:50 Labs: Abnormal Lab Results - Last 24 Hours (Table) 03/12/25 03/12/25 03/13/25 Range/Units 16:27 21:31 01:47 Sodium (135-145) mmol/L Potassium (3.5-5.5) mmol/L Chloride (96-109) mmol/L Anion Gap (4.00-12.00) mmol/L BUN (9.0-27.0) mg/dL Est GFR (CKD-EPI) (>=60) BUN/Creatinine Ratio (12.00-20.00) Ratio Glucose (70-110) mg/dL POC Glucose (mg/dL) 199 H 310 H 274 H (70-110) mg/dL Calcium (8.7-10.3) mg/dL 03/13/25 03/13/25 03/13/25 Range/Units 05:50 06:07 11:49 Sodium 132 L (135-145) mmol/L Potassium 3.4 L (3.5-5.5) mmol/L Chloride 94 L (96-109) mmol/L Anion Gap 12.50 H (4.00-12.00) mmol/L BUN 33.4 H (9.0-27.0) mg/dL Est GFR (CKD-EPI) 51 L (>=60) BUN/Creatinine Ratio 30.36 H (12.00-20.00) Ratio Glucose 223 H (70-110) mg/dL POC Glucose (mg/dL) 243 H 181 H (70-110) mg/dL Calcium 8.2 L (8.7-10.3) mg/dL Microbiology - Last 24 Hours (Table) 03/11/25 12:00 Blood Culture - Preliminary Blood Assessment and Plan (1) Elevated liver enzymes Current Visit: Yes Status: Acute Code(s): R74.8 - ABNORMAL LEVELS OF OTHER SERUM ENZYMES SNOMED Code(s): 328118618 (2) Pressure ulcer of sacral region, stage 2 Current Visit: Yes Status: Acute Code(s): L89.152 - PRESSURE ULCER OF SACRAL REGION, STAGE 2 SNOMED Code(s): 63501610995551 (3) Bacteremia Current Visit: Yes Status: Acute Code(s): R78.81 - BACTEREMIA SNOMED Code(s): 2537645 Plan: 1patient presented hospitalized weakness which is likely multifactorial in this patient who did have hypotension white count is normal but did have a left shift source question abdominal has the patient have elevated liver enzymes though the ultrasound was inconclusive possible left lower lobe pneumonia this patient recently did have COVID-19 pneumonia 2-patient did have a stage II sacral pressure ulcer but no significant yogesh lulitis continue with local wound care as ordered 3-patient did have persistent bacteremia with Enterococcus faecalis questionable endovascular source, 2D echocardiogram did not mention any vegetation, the patient is status post MELISSA with evidence of mitral valve endocarditis 4patient currently being treated with ampicillin and Rocephin for endocarditis blood cultures 03/11/2025 so far negative if remains to be negative she will get a PICC line for outpatient IV antibiotic therapy Dictation was produced using [employer] dictation software. please excuse any grammatical, word or spelling errors. Time with Patient: Less than 30
--- NOTE | 2025-03-13 16:23 | P.PN ---
Subjective Progress Note Date: 03/13/25 80-year-old female with history of mitral valve replacement congestive heart failure EF of around 40 to 45% came in with complaints of generalized weakness. Patient is found to be hyponatremic. Patient is on 6 L of oxygen usually uses 4 to 5 L at home. Patient does have history of obstructive sleep apnea for which patient is on BiPAP at home. Patient had no fever or chills patient does not have any leukocytosis patient does not have any complaints of dysuria suprapubic pain urine is essentially within normal limits chest x-ray showed some nonspecific infiltrate not consistent with pneumonia. Will obtain a procalcitonin level patient's BNP is elevated to 8000 patient's previous BNP was 5000. Patient does have bilateral lower extremity pedal edema. Patient does have stage II decubitus ulcers does not appear to be infected. Patient was started on vancomycin probably for that reason in ER. Patient has minimally elevated troponins. 03/09/2025 Patient is evaluated today in follow up in the intensive care unit. Patient remains on antibiotics in the form of IV Unasyn. Her blood culture did come back positive for Enterococcus faecalis. It was repeated today and ID is following. Labs today reveal a white blood cell count of 6.20, hemoglobin 8.1, sodium 127, BUN of 63 creatinine of 1.26. AST and ALT are significantly improved. 03/10/2025 Patient evaluated in the intensive care unit remains on CPAP and tolerating well. More awake and alert. Repeat blood culture positive for enterococcus. Limited echocardiogram reveals EF 55-60%, mild pulmonary hypertension, mild TR, there is mitral valve and tricuspid valve repair as well as AVR. Technically difficult study. Does not appear to be any vegetation noted. Remains on IV unasyn. white blood cell count 8.40, hgb 7.8, platelet 32, sodium 130, potassium 4.2, BUN 55, creatinine 1.06. 03/11/2025 Patient is evaluated today in follow up; has been moved out of the ICU. Patient currently on oxygen via nasal cannula. Patient continues with persistent bacteremia with enterococcus faecalis and discussed echocardiogram findings with ID and recommendations made for MELISSA. Pt. will be going for the MELISSA on 03/12/[address] Watson. She will need to be NPO after midnight. Patient remains on IV unasyn and IV ceftriaxone. Blood pressure into the 90s this morning and a 500 cc bolus was given. She is tolerating oxygen via nasal cannula and also utilizing the CPAP at the bedside. Patient is more awake alert and oriented at this time. 03/12/2025 Patient is seen in follow-up today currently n.p.o. continues on her CPAP machine scheduled to undergo MELISSA with cardiology following. Multiple consultations following including infectious disease maintained on IV antibiotics and continues to have persistent bacteremia with Enterococcus awaiting MELISSA report. Patient is afebrile with no reports chest pain or worsening shortness of breath. 03/13. Patient seen and examined. Vitals this morning show temperature 99.3, heart rate 63, blood pressure 109/65 REVIEW OF SYSTEMS: CONSTITUTIONAL: No fever, no malaise,. CARDIOVASCULAR: No chest pain, no palpitations, no syncope. PULMONARY: No shortness of breath, no cough, GASTROINTESTINAL: No diarrhea, no nausea, no vomiting, no abdominal pain. NEUROLOGICAL: No headaches, no weakness, PHYSICAL EXAMINATION: GENERAL: The patient is alert and oriented x3, ill looking HEENT: Pupils are round and equally reacting to light. EOMI. No scleral icterus. No conjunctival pallor. Normocephalic, atraumatic. No pharyngeal erythema. No thyromegaly. CARDIOVASCULAR: S1 and S2 present. No murmurs, rubs, or gallops. PULMONARY: Chest is clear to auscultation, no wheezing or crackles. ABDOMEN: Soft, nontender, nondistended, normoactive bowel sounds. No palpable organomegaly. MUSCULOSKELETAL: No joint swelling or deformity. EXTREMITIES: No cyanosis, clubbing, or pedal edema. NEUROLOGICAL: Gross neurological examination did not reveal any focal deficits. SKIN: No rashes. Assessment and plan - Sepsis and enterococcus bacteremia POA as blood culture collected on admission positive for enterococcus, status post MELISSA which was positive for mitral valve endocarditis - Congestive heart failure chronic systolic function with acute exacerbation. - Hypervolemic hyponatremia, improving - Acute on chronic hypoxic respiratory failure secondary to pulmonary edema. - Type 2 diabetes mellitus uncontrolled with elevated blood sugars - History of atrial fibrillation: Patient is presently rate controlled patient probably has paroxysmal A-fib on Eliquis at home - History of GI bleed in the past presently does not appear to have acute bleed or GI bleed at this time we will give IV iron transfusion will not require any blood transfusion at the time patient is receiving as needed blood transfusions and IV iron transfusions as an outpatient - History of pancytopenia follows with hematology outpatient this is because of the slow GI bleed - History of bioprosthetic aortic valve replacement - Sleep apnea on CPAP machine -Transaminitis likely from sepsis improving -Hypothyroidism - Morbid obesity with a BMI of 46.5 Monitor vital signs Monitor CBC Monitor CMP Continue telemetry monitoring MELISSA showing mitral valve endocarditis Continue Unasyn and Rocephin Continue Lipitor ID following Nephrology following Labs and medication were reviewed.. Continue same treatment. Continue with symptomatic treatment. Resume home medication. Monitor labs and vitals. DVT and GI prophylaxis. Further recommendations as per clinical course of the patient Dictation was produced using [employer] dictation software. please excuse any grammatical, word or spelling errors. Objective - Vital Signs Vital signs: Vital Signs Temp 97.3 F L 03/13/25 02:00 Pulse 63 03/13/25 02:00 Resp 16 03/13/25 02:00 BP 109/65 03/13/25 02:00 Pulse Ox 97 03/13/25 02:00 FiO2 Intake & Output 03/12/25 03/13/25 03/13/25 18:59 06:59 18:59 Intake Total 300 Output Total 900 900 Balance -600 -900 Weight 117.4 kg Intake: IV 100 Oral 200 Output: Urine 900 900 Other: Voiding Method Indwelling Catheter Indwelling Catheter - Labs CBC & Chem 7: 03/12/25 12:50 03/13/25 05:50 Labs: Abnormal Lab Results - Last 24 Hours (Table) 03/12/25 03/12/25 03/12/25 Range/Units 12:13 12:50 16:27 RBC 2.40 L (4.10-5.20) 10*6/uL Hgb 7.3 L (12.0-15.0) g/dL Hct 22.3 L (37.2-46.3) % RDW 17.0 H (11.5-14.5) % Plt Count 49 L D (140-440) 10*3/uL POC Glucose (mg/dL) 126 H 199 H (70-110) mg/dL 03/12/25 03/13/25 03/13/25 Range/Units 21:31 01:47 06:07 RBC (4.10-5.20) 10*6/uL Hgb (12.0-15.0) g/dL Hct (37.2-46.3) % RDW (11.5-14.5) % Plt Count (140-440) 10*3/uL POC Glucose (mg/dL) 310 H 274 H 243 H (70-110) mg/dL Microbiology - Last 24 Hours (Table) 03/11/25 12:00 Blood Culture - Preliminary Blood
[2025-03-13 16:50] LABS: Glucose,Whole Blood 195 mg/dL (70-110)
[2025-03-13 20:13] LABS: Glucose,Whole Blood 227 mg/dL (70-110)
[2025-03-13 22:29] LABS: Glucose,Whole Blood 263 mg/dL (70-110)
--- NOTE | 2025-03-13 22:57 | P.PN ---
Subjective Progress Note Date: 03/13/25 HISTORY OF PRESENT ILLNESS: This is a 80-year-old female patient of Dr. Watson with past medical history of TAVR in 2018 with open aortic valve replacement, MVR and tricuspid valve repair done at [facility] on 05/20/2024, paroxysmal atrial fibrillation, hypertension, dyslipidemia, diabetes mellitus type 2 insulin requiring, hypothyroidism, coronary artery disease with previous stent, history of left pleural effusion status post thoracentesis with removal of 850 cc 10/08/2024. We have been asked to evaluate the patient for CHF. Patient's last office visit with Dr. Watson was 06/24/2020 for. Patient has had multiple hospitalizations since that time including most recently 02/13 - 02/23/2025 at which time she was seen by cardiology. She was hospitalized at that time for COVID-19 and treated for acute on chronic systolic heart failure. At some point, patient's Eliquis was decreased to 2.5 mg twice daily. She has had positive occult blood in the past with anemia and underwent colonoscopy in October with Dr. Hines that found tubular adenoma x 2 without active bleeding. Patient gives history that she came into the hospital because she did not have any energy, no interest in anything and was sleeping a lot. She also complains of shortness of breath with minimal activity, no orthopnea. Patient is poor historian. Blood pressure 121/62, heart rates in the 60s, pulse ox 98% on 6 L nasal cannula. Patient was also on CPAP earlier. Patient has been started on IV Lasix 40 mg every 12 hours. -EKG: Atrial paced rhythm. -Chest x-ray: Persistent left basilar airspace disease atelectasis or pneumonia. Persistent small left pleural effusion. -Gallbladder ultrasound: Gallbladder not visualized. Right kidney not visualized. -CT head: No acute intracranial process. -Laboratory studies: Hemoglobin 7.9 repeat 7.7, platelet count 39, WBC 5.0. Sodium 122, potassium 4.5, BUN 65 and creatinine improved from 1.46-1.23. Lactic acid 3.1 repeat 2.0. Troponins 0.087, 0.084, 0.084. Urinalysis negative for infection. Stool for occult blood positive. Acetone negative. Cepheid viral panel not detected. -Home cardiac medications: Eliquis 2.5 mg twice daily, atorvastatin 40 mg at b edtime, Farxiga 10 mg daily, Lasix 40 mg twice daily, losartan 12.5 mg daily, metolazone 2.5 mg daily, metoprolol succinate 50 mg in the morning and 25 mg at bedtime. -Echocardiogram performed 01/30/2025 at [facility] revealed suboptimal study, EF 40 to 45%, severe pulmonary hypertension. -Cardiac PCI performed 01/05/2021 to the mid diagonal 1 and ostial PDA. -Cardiovascular surgery with TAVR 11/04/2018. -Cardiovascular surgery with tissue AVR, tissue MVR, tricuspid valve repair 05/20/2024 at [facility]. 03/10/2025 Patient is more alert clinically. She has a Enterococcus growing in her blood. She has also a decubitus ulcer on her back. She has history of multivalve her surgery and I am concerned about seeding. However she is on aggressive antibiotic therapy mentally she is more alert responsive to questions hemodynamically stable and no overt heart failure at this time. We will rico nue supportive care and current medical regimen. 03/11/2025 Patient examined this morning at the bedside. Patient currently denies chest pain or pressure. She denies shortness of breath. Vital signs are stable. 03/13/2025 Patient is seen and examined at bedside this a.m. She underwent a MELISSA yesterday which showed evidence of vegetation attached to the mitral plastering towards the atrial side suggestive of endocarditis. bp 113/65 hr 64 bpm PHYSICAL EXAM: VITAL SIGNS: Reviewed. GENERAL: Well-developed in no acute distress. NECK: Supple. No JVD or thyromegaly LUNGS: Respirations even and unlabored. Lungs essentially clear to auscultation bilaterally. HEART: Regular rate and rhythm. S1 and S2 heard. EXTREMITIES: Normal range of motion. No clubbing or cyanosis. Peripheral pulses intact. No lower extremity edema ASSESSMENT: Enterococcus bacteremia with evidence of endocarditis, likely source from sacral ulcer stage II Generalized weakness most likely secondary to combination of hyponatremia, acute kidney injury, recent COVID Hyponatremia Acute kidney injury Recent COVID Pancytopenia Rule out sepsis Metabolic encephalopathy Chronic heart failure with EF of 40 to 45% Valvular heart disease status post TAVR status post open aortic valve replacement, mitral valve replacement, tricuspid valve repair in May 2024 Paroxysmal atrial fibrillation, paced rhythm Hypertension Dyslipidemia Diabetes mellitus type 2 insulin requiring Hypothyroidism Coronary artery disease with previous stent to the mid diagonal 1 and ostial PDA PLAN: Continue Lipitor. Continue metoprolol XL 25 mg daily. I noticed that patient is not on diuretics. I will start Bumex 1 mg p.o. daily from tomorrow and Aldactone 12.5 mg daily Continue antibiotics per infectious disease Because of anemia her Eliquis has been held Because of low blood pressure she is not getting her home losartan. She is not getting Farxiga because of decub ulcer. Objective - Vital Signs Vital signs: Vital Signs Temp 97.4 F L 03/13/25 19:57 Pulse 64 03/13/25 19:57 Resp 18 03/13/25 19:57 BP 113/65 03/13/25 19:57 Pulse Ox 96 03/13/25 19:57 FiO2 Intake & Output 03/13/25 03/13/25 03/14/25 06:59 18:59 06:59 Output Total 900 700 Balance -900 -700 Weight 117.4 kg Output: Urine 900 700 Other: Voiding Method Indwelling Catheter Indwelling Catheter - Labs CBC & Chem 7: 03/12/25 12:50 03/13/25 16:35 Labs: Abnormal Lab Results - Last 24 Hours (Table) 03/13/25 03/13/25 03/13/25 Range/Units 01:47 05:50 06:07 Sodium 132 L (135-145) mmol/L Potassium 3.4 L (3.5-5.5) mmol/L Chloride 94 L (96-109) mmol/L Anion Gap 12.50 H (4.00-12.00) mmol/L BUN 33.4 H (9.0-27.0) mg/dL Est GFR (CKD-EPI) 51 L (>=60) BUN/Creatinine Ratio 30.36 H (12.00-20.00) Ratio Glucose 223 H (70-110) mg/dL POC Glucose (mg/dL) 274 H 243 H (70-110) mg/dL Calcium 8.2 L (8.7-10.3) mg/dL 03/13/25 03/13/25 03/13/25 Range/Units 11:49 16:35 16:49 Sodium (135-145) mmol/L Potassium 3.4 L (3.5-5.5) mmol/L Chloride (96-109) mmol/L Anion Gap (4.00-12.00) mmol/L BUN (9.0-27.0) mg/dL Est GFR (CKD-EPI) (>=60) BUN/Creatinine Ratio (12.00-20.00) Ratio Glucose (70-110) mg/dL POC Glucose (mg/dL) 181 H 195 H (70-110) mg/dL Calcium (8.7-10.3) mg/dL 03/13/25 03/13/25 Range/Units 20:11 22:24 Sodium (135-145) mmol/L Potassium (3.5-5.5) mmol/L Chloride (96-109) mmol/L Anion Gap (4.00-12.00) mmol/L BUN (9.0-27.0) mg/dL Est GFR (CKD-EPI) (>=60) BUN/Creatinine Ratio (12.00-20.00) Ratio Glucose (70-110) mg/dL POC Glucose (mg/dL) 227 H 263 H (70-110) mg/dL Calcium (8.7-10.3) mg/dL Microbiology - Last 24 Hours (Table) 03/11/25 12:00 Blood Culture - Preliminary Blood
[2025-03-14] MEDS: AMPICILLIN 2,000 MG in SODIUM CHLORIDE 0.9% 100 ML IVPB SCH (04:09)
[2025-03-14 06:17] LABS: Glucose,Whole Blood 188 mg/dL (70-110)
[2025-03-14] MEDS: SPIRONOLACTONE 25 MG TAB PO SCH (09:21)
[2025-03-14] MEDS: BUMETANIDE 1 MG TAB PO SCH (09:21)
[2025-03-14 11:07] LABS: Basophils # (A) 0.02 X 10*3/uL (0.00-0.10); Basophils % (A) 0.3 %; Eosinophils % (A) 1.5 %; HCT 17.1 % (37.2-46.3); HGB 5.3 g/dL (12.0-15.0); Immature Platelet Fraction 6.3 % (1.1-6.1); Lymphocytes # (A) 0.87 X 10*3/uL (0.90-5.00); MCH 29.1 pg (27.0-32.0); Mean Platelet Volume 12.6 FL (9.5-12.2); Monocytes # (A) 0.39 X 10*3/uL (0.20-1.00); Monocytes % (A) 5.8 %; NRBC Per 100 WBC 0 X 10*3/uL (0.00-0.01); Neutrophils # (A) 5.21 X 10*3/uL (1.80-7.70); Neutrophils % (A) 77.9 %; Platelet Count 61 X 10*3/uL (140-440); RBC 1.82 X 10*6/uL (4.10-5.20); RBC Morphology Normal (Normal); RDW 17.2 % (11.5-14.5); WBC 6.69 X 10*3/uL (4.50-10.00)
[2025-03-14] MEDS ORDERED: FUROSEMIDE 10 MG/ML 4 ML VIAL IV PRN (11:21)
[2025-03-14 11:32] LABS: Glucose,Whole Blood 223 mg/dL (70-110)
--- NOTE | 2025-03-14 11:34 | P.PN ---
Subjective Patient is seen for follow-up for acute kidney injury. Labs have improved with serum creatinine staying at 0.9 to 1.1 mg/dL. Hemoglobin was 5.3 today. Status post packed RBCs transfusion. Scheduled to receive IV Lasix post RBCs transfusion Sodium is pending from today. It was 132 yesterday. No significant complaints. Objective - Vital Signs Vital signs: Vital Signs Temp 97.5 F L 03/14/25 07:23 Pulse 65 03/14/25 07:23 Resp 19 03/14/25 07:23 BP 122/71 03/14/25 07:23 Pulse Ox 97 03/14/25 07:23 FiO2 Intake & Output 03/13/25 03/14/25 03/14/25 18:59 06:59 18:59 Intake Total 120 Output Total 700 600 Balance -700 -480 Weight 117 kg Intake: Oral 120 Output: Urine 700 600 Other: Voiding Method Indwelling Catheter Indwelling Catheter # Bowel Movements 1 - Exam Patient is awake, comfortable, no acute distress Maintained on CPAP Examination of the heart S1 and S2 Examination of the lungs decreased breath sounds at the bases Abdomen is soft obese nontender Examination of lower extremities shows trace edema [employer] exam grossly intact - Labs CBC & Chem 7: 03/14/25 04:38 03/13/25 16:35 Labs: Abnormal Lab Results - Last 24 Hours (Table) 03/13/25 03/13/25 03/13/25 Range/Units 11:49 16:35 16:49 RBC (4.10-5.20) X 10*6/uL Hgb (12.0-15.0) g/dL Hct (37.2-46.3) % MCHC (32.0-37.0) g/dL RDW (11.5-14.5) % Plt Count (140-440) X 10*3/uL MPV (9.5-12.2) FL Immature Gran # (0.00-0.04) X 10*3/uL Lymphocytes # (0.90-5.00) X 10*3/uL Immature Plt Fraction (1.1-6.1) % Potassium 3.4 L (3.5-5.1) mmol/L POC Glucose (mg/dL) 181 H 195 H (70-110) mg/dL 03/13/25 03/13/25 03/14/25 Range/Units 20:11 22:24 04:38 RBC 1.82 L (4.10-5.20) X 10*6/uL Hgb 5.3 A* (12.0-15.0) g/dL Hct 17.1 A* (37.2-46.3) % MCHC 31.0 L (32.0-37.0) g/dL RDW 17.2 H (11.5-14.5) % Plt Count 61 L (140-440) X 10*3/uL MPV 12.6 H (9.5-12.2) FL Immature Gran # 0.10 H (0.00-0.04) X 10*3/uL Lymphocytes # 0.87 L (0.90-5.00) X 10*3/uL Immature Plt Fraction 6.3 H (1.1-6.1) % Potassium (3.5-5.1) mmol/L POC Glucose (mg/dL) 227 H 263 H (70-110) mg/dL 03/14/25 03/14/25 Range/Units 06:16 11:30 RBC (4.10-5.20) X 10*6/uL Hgb (12.0-15.0) g/dL Hct (37.2-46.3) % MCHC (32.0-37.0) g/dL RDW (11.5-14.5) % Plt Count (140-440) X 10*3/uL MPV (9.5-12.2) FL Immature Gran # (0.00-0.04) X 10*3/uL Lymphocytes # (0.90-5.00) X 10*3/uL Immature Plt Fraction (1.1-6.1) % Potassium (3.5-5.1) mmol/L POC Glucose (mg/dL) 188 H 223 H (70-110) mg/dL Microbiology - Last 24 Hours (Table) 03/11/25 12:00 Blood Culture - Preliminary Blood Assessment and Plan Assessment: 1. Acute kidney injury secondary to ATN secondary to hypotension. Also concern for cardiorenal syndrome. Creatinine 1.46 on admission -1.1 yesterday. UA fairly benign. 2. Chronic kidney disease stage IIIa with baseline creatinine 1.2-1.3 secondary to diabetic kidney disease. 3. Volume overload. On Lasix. Improved. 4. Hyponatremia, hypervolemic. Also component of hypertonicity from hyperglycemia. Improving. Urine sodium less than 20 and urine osmolality 417. 5. Diabetes mellitus. 6. Anemia. Rule out iron deficiency. Questionable GI bleed. Stool for occult blood positive. Packed RBCs transfusion today for hemoglobin of 5.3. 7. Acute on chronic systolic CHF ejection fraction of 40 to 45% with severe pulmonary hypertension, moderate tricuspid regurgitation. 8. Enterococcus bacteremia on antibiotics. 9. Hypokalemia from diuresis. Replaced. Plan: Continue off of IV fluids Replace potassium Repeat labs in a.m.
[2025-03-14 13:55] LABS: ALT 34 U/L (4-34); AST 29 U/L (14-36); African American GFR (CKD) 62 (>60 ml/min/1.73 sqM); Albumin 2.8 g/dL (3.5-5.0); Albumin/Globulin Ratio 0.7; Alkaline Phosphatase 159 U/L (38-126); Anion Gap 8 mmol/L; Blood Urea Nitrogen 27 mg/dL (7-17); Calcium 8.1 mg/dL (8.4-10.2); Carbon Dioxide 30 mmol/L (22-30); Chloride 93 mmol/L (98-107); Globulin 3.9 g/dL; Glucose 312 mg/dL (74-99); Non-African American GFR(CKD) 54 (>60 ml/min/1.73 sqM); Potassium 3.4 mmol/L (3.5-5.1); Sodium 131 mmol/L (137-145); Total Bilirubin 0.8 mg/dL (0.2-1.3); Total Protein 6.7 g/dL (6.3-8.2)
--- NOTE | 2025-03-14 14:39 | P.PN ---
Subjective Progress Note Date: 03/14/25 Principal diagnosis: Reason for follow-up is bacteremia Patient is a 80-year-old female with multiple comorbidities including type 2 diabetes mellitus hypertension hyperlipidemia atrial fibrillation coronary artery disease did have TAVR in 2018 subsequently open aortic valve replacement MVR and tricuspid valve repair done at [facility] on 05/20/2024 recently admitted to hospital and treated for COVID-19 pneumonia now being admitted to the hospital generalized weakness and did have a positive blood culture with Enterococcus On today's evaluation that is 03/14/2025, patient has been afebrile, patient is breathing comfortably and is currently on CPAP, patient denies having any chest pain and cough, patient denies nausea vomiting or diarrhea and no abdominal pain. Patient white count 6.69 hemoglobin is 5.3 creatinine is 1.0 blood culture repeat has been negative so far Objective - Vital Signs Vital signs: Vital Signs Temp 97.5 F L 03/14/25 07:23 Pulse 60 03/14/25 12:51 Resp 19 03/14/25 07:23 BP 108/66 03/14/25 12:51 Pulse Ox 97 03/14/25 07:23 FiO2 Intake & Output 03/13/25 03/14/25 03/14/25 18:59 06:59 18:59 Intake Total 120 Output Total 700 600 Balance -700 -480 Weight 117 kg Intake: Oral 120 Output: Urine 700 600 Other: Voiding Method Indwelling Catheter Indwelling Catheter # Bowel Movements 1 - Exam GENERAL DESCRIPTION: An elderly female lying in bed in no distress RESPIRATORY SYSTEM: Unlabored breathing , decreased breath sounds at bases HEART: S1 S2 regular rate and rhythm , ABDOMEN: Soft , no tenderness EXTREMITIES: Swelling to the leg but no redness - Labs CBC & Chem 7: 03/14/25 04:38 03/14/25 12:52 Labs: Abnormal Lab Results - Last 24 Hours (Table) 03/13/25 03/13/25 03/13/25 Range/Units 16:35 16:49 20:11 RBC (4.10-5.20) X 10*6/uL Hgb (12.0-15.0) g/dL Hct (37.2-46.3) % MCHC (32.0-37.0) g/dL RDW (11.5-14.5) % Plt Count (140-440) X 10*3/uL MPV (9.5-12.2) FL Immature Gran # (0.00-0.04) X 10*3/uL Lymphocytes # (0.90-5.00) X 10*3/uL Immature Plt Fraction (1.1-6.1) % Potassium 3.4 L (3.5-5.1) mmol/L POC Glucose (mg/dL) 195 H 227 H (70-110) mg/dL 03/13/25 03/14/25 03/14/25 Range/Units 22:24 04:38 06:16 RBC 1.82 L (4.10-5.20) X 10*6/uL Hgb 5.3 A* (12.0-15.0) g/dL Hct 17.1 A* (37.2-46.3) % MCHC 31.0 L (32.0-37.0) g/dL RDW 17.2 H (11.5-14.5) % Plt Count 61 L (140-440) X 10*3/uL MPV 12.6 H (9.5-12.2) FL Immature Gran # 0.10 H (0.00-0.04) X 10*3/uL Lymphocytes # 0.87 L (0.90-5.00) X 10*3/uL Immature Plt Fraction 6.3 H (1.1-6.1) % Potassium (3.5-5.1) mmol/L POC Glucose (mg/dL) 263 H 188 H (70-110) mg/dL 03/14/25 Range/Units 11:30 RBC (4.10-5.20) X 10*6/uL Hgb (12.0-15.0) g/dL Hct (37.2-46.3) % MCHC (32.0-37.0) g/dL RDW (11.5-14.5) % Plt Count (140-440) X 10*3/uL MPV (9.5-12.2) FL Immature Gran # (0.00-0.04) X 10*3/uL Lymphocytes # (0.90-5.00) X 10*3/uL Immature Plt Fraction (1.1-6.1) % Potassium (3.5-5.1) mmol/L POC Glucose (mg/dL) 223 H (70-110) mg/dL Microbiology - Last 24 Hours (Table) 03/11/25 12:00 Blood Culture - Preliminary Blood Assessment and Plan (1) Elevated liver enzymes Current Visit: Yes Status: Acute Code(s): R74.8 - ABNORMAL LEVELS OF OTHER SERUM ENZYMES SNOMED Code(s): 239128302 (2) Pressure ulcer of sacral region, stage 2 Current Visit: Yes Status: Acute Code(s): L89.152 - PRESSURE ULCER OF SACRAL REGION, STAGE 2 SNOMED Code(s): 14023433364075 (3) Bacteremia Current Visit: Yes Status: Acute Code(s): R78.81 - BACTEREMIA SNOMED Code(s): 3700228 Plan: 1patient presented hospitalized weakness which is likely multifactorial in this patient who did have hypotension white count is normal but did have a left shift source question abdominal has the patient have elevated liver enzymes though the ultrasound was inconclusive possible left lower lobe pneumonia this patient recently did have COVID-19 pneumonia 2-patient did have a stage II sacral pressure ulcer but no significant cellulitis continue with local wound care as ordered 3-patient did have persistent bacteremia with Enterococcus faecalis questionable endovascular source, 2D echocardiogram did not mention any vegetation, the patient is status post MELISSA with evidence of mitral valve endocarditis 4patient to continue ampicillin and Rocephin for endocarditis blood cultures 03/11/2025 as well as 03/13/2025 so far negative we will order PICC line for outpatient IV antibiotics Daughter at the bedside question answered Dictation was produced using [employer] dictation software. please excuse any grammatical, word or spelling errors. Time with Patient: Less than 30
[2025-03-14] MEDS: LORATADINE 10 MG TAB PO SCH (15:25)
[2025-03-14 16:18] LABS: Glucose,Whole Blood 224 mg/dL (70-110)
--- NOTE | 2025-03-14 16:28 | P.PN ---
Subjective Progress Note Date: 03/14/25 80-year-old female with history of mitral valve replacement congestive heart failure EF of around 40 to 45% came in with complaints of generalized weakness. Patient is found to be hyponatremic. Patient is on 6 L of oxygen usually uses 4 to 5 L at home. Patient does have history of obstructive sleep apnea for which patient is on BiPAP at home. Patient had no fever or chills patient does not have any leukocytosis patient does not have any complaints of dysuria suprapubic pain urine is essentially within normal limits chest x-ray showed some nonspecific infiltrate not consistent with pneumonia. Will obtain a procalcitonin level patient's BNP is elevated to 8000 patient's previous BNP was 5000. Patient does have bilateral lower extremity pedal edema. Patient does have stage II decubitus ulcers does not appear to be infected. Patient was started on vancomycin probably for that reason in ER. Patient has minimally elevated troponins. 03/09/2025 Patient is evaluated today in follow up in the intensive care unit. Patient remains on antibiotics in the form of IV Unasyn. Her blood culture did come back positive for Enterococcus faecalis. It was repeated today and ID is following. Labs today reveal a white blood cell count of 6.20, hemoglobin 8.1, sodium 127, BUN of 63 creatinine of 1.26. AST and ALT are significantly improved. 03/10/2025 Patient evaluated in the intensive care unit remains on CPAP and tolerating well. More awake and alert. Repeat blood culture positive for enterococcus. Limited echocardiogram reveals EF 55-60%, mild pulmonary hypertension, mild TR, there is mitral valve and tricuspid valve repair as well as AVR. Technically difficult study. Does not appear to be any vegetation noted. Remains on IV unasyn. white blood cell count 8.40, hgb 7.8, platelet 32, sodium 130, potassium 4.2, BUN 55, creatinine 1.06. 03/11/2025 Patient is evaluated today in follow up; has been moved out of the ICU. Patient currently on oxygen via nasal cannula. Patient continues with persistent bacteremia with enterococcus faecalis and discussed echocardiogram findings with ID and recommendations made for MELISSA. Pt. will be going for the MELISSA on 03/12/[address] Watson. She will need to be NPO after midnight. Patient remains on IV unasyn and IV ceftriaxone. Blood pressure into the 90s this morning and a 500 cc bolus was given. She is tolerating oxygen via nasal cannula and also utilizing the CPAP at the bedside. Patient is more awake alert and oriented at this time. 03/12/2025 Patient is seen in follow-up today currently n.p.o. continues on her CPAP machine scheduled to undergo MELISSA with cardiology following. Multiple consultations following including infectious disease maintained on IV antibiotics and continues to have persistent bacteremia with Enterococcus awaiting MELISSA report. Patient is afebrile with no reports chest pain or worsening shortness of breath. 03/13. Patient seen and examined. Vitals this morning show temperature 99.3, heart rate 63, blood pressure 109/65 03/14. Patient seen and examined. Hemoglobin this morning is 5.3, patient being given 2 units of packed red blood cell. Had an episode of dark stool this morning. FOBT is positive REVIEW OF SYSTEMS: CONSTITUTIONAL: No fever, no malaise,. CARDIOVASCULAR: No chest pain, no palpitations, no syncope. PULMONARY: No shortness of breath, no cough, GASTROINTESTINAL: No diarrhea, no nausea, no vomiting, no abdominal pain. NEUROLOGICAL: No headaches, no weakness, PHYSICAL EXAMINATION: GENERAL: The patient is alert and oriented x3, ill looking HEENT: Pupils are round and equally reacting to light. EOMI. No scleral icterus. No conjunctival pallor. Normocephalic, atraumatic. No pharyngeal erythema. No thyromegaly. CARDIOVASCULAR: S1 and S2 present. No murmurs, rubs, or gallops. PULMONARY: Chest is clear to auscultation, no wheezing or crackles. ABDOMEN: Soft, nontender, nondistended, normoactive bowel sounds. No palpable organomegaly. MUSCULOSKELETAL: No joint swelling or deformity. EXTREMITIES: No cyanosis, clubbing, or pedal edema. NEUROLOGICAL: Gross neurological examination did not reveal any focal deficits. SKIN: No rashes. Assessment and plan - Sepsis and enterococcus bacteremia POA as blood culture collected on admission positive for enterococcus, status post MELISSA which was positive for mitral valve endocarditis Acute blood loss anemia GI bleed - Congestive heart failure chronic systolic function with acute exacerbation. - Hypervolemic hyponatremia, improving - Acute on chronic hypoxic respiratory failure secondary to pulmonary edema. - Type 2 diabetes mellitus uncontrolled with elevated blood sugars - History of atrial fibrillation: Patient is presently rate controlled patient probably has paroxysmal A-fib on Eliquis at home - History of GI bleed - History of pancytopenia follows with hematology outpatient this is because of the slow GI bleed - History of bioprosthetic aortic valve replacement - Sleep apnea on CPAP machine -Transaminitis likely from sepsis improving -Hypothyroidism - Morbid obesity with a BMI of 46.5 Monitor vital signs Monitor CBC Monitor CMP Continue telemetry monitoring MELISSA showing mitral valve endocarditis Continue Unasyn and Rocephin Ordered anemia workup Will transfuse 2unit of packed red blood cell Continue Lipitor ID following Nephrology following Surgery consulted Labs and medication were reviewed.. Continue same treatment. Continue with symptomatic treatment. Resume home medication. Monitor labs and vitals. DVT and GI prophylaxis. Further recommendations as per clinical course of the patient Dictation was produced using [employer] dictation software. please excuse any gramma tical, word or spelling errors. Objective - Vital Signs Vital signs: Vital Signs Temp 97.5 F L 03/14/25 07:23 Pulse 60 03/14/25 12:51 Resp 19 03/14/25 07:23 BP 108/66 03/14/25 12:51 Pulse Ox 97 03/14/25 07:23 FiO2 Intake & Output 03/13/25 03/14/25 03/14/25 18:59 06:59 18:59 Intake Total 120 Output Total 700 600 900 Balance -700 -480 -900 Weight 117 kg Intake: Oral 120 Output: Urine 700 600 900 Other: Voiding Method Indwelling Catheter Indwelling Catheter # Bowel Movements 1 - Labs CBC & Chem 7: 03/14/25 04:38 03/14/25 12:52 Labs: Abnormal Lab Results - Last 24 Hours (Table) 03/13/25 03/13/25 03/13/25 Range/Units 16:35 16:49 20:11 RBC (4.10-5.20) X 10*6/uL Hgb (12.0-15.0) g/dL Hct (37.2-46.3) % MCHC (32.0-37.0) g/dL RDW (11.5-14.5) % Plt Count (140-440) X 10*3/uL MPV (9.5-12.2) FL Immature Gran # (0.00-0.04) X 10*3/uL Lymphocytes # (0.90-5.00) X 10*3/uL Immature Plt Fraction (1.1-6.1) % Sodium (137-145) mmol/L Potassium 3.4 L (3.5-5.1) mmol/L Chloride (98-107) mmol/L BUN (7-17) mg/dL Glucose (74-99) mg/dL POC Glucose (mg/dL) 195 H 227 H (70-110) mg/dL Calcium (8.4-10.2) mg/dL Alkaline Phosphatase (38-126) U/L Albumin (3.5-5.0) g/dL Crossmatch Blood Bank [facility] 03/13/25 03/14/25 03/14/25 Range/Units 22:24 04:38 06:16 RBC 1.82 L (4.10-5.20) X 10*6/uL Hgb 5.3 A* (12.0-15.0) g/dL Hct 17.1 A* (37.2-46.3) % MCHC 31.0 L (32.0-37.0) g/dL RDW 17.2 H (11.5-14.5) % Plt Count 61 L (140-440) X 10*3/uL MPV 12.6 H (9.5-12.2) FL Immature Gran # 0.10 H (0.00-0.04) X 10*3/uL Lymphocytes # 0.87 L (0.90-5.00) X 10*3/uL Immature Plt Fraction 6.3 H (1.1-6.1) % Sodium (137-145) mmol/L Potassium (3.5-5.1) mmol/L Chloride (98-107) mmol/L BUN (7-17) mg/dL Glucose (74-99) mg/dL POC Glucose (mg/dL) 263 H 188 H (70-110) mg/dL Calcium (8.4-10.2) mg/dL Alkaline Phosphatase (38-126) U/L Albumin (3.5-5.0) g/dL [facility] 03/14/25 03/14/25 03/14/25 Range/Units 11:30 12:48 12:52 RBC (4.10-5.20) X 10*6/uL Hgb (12.0-15.0) g/dL Hct (37.2-46.3) % MCHC (32.0-37.0) g/dL RDW (11.5-14.5) % Plt Count (140-440) X 10*3/uL MPV (9.5-12.2) FL Immature Gran # (0.00-0.04) X 10*3/uL Lymphocytes # (0.90-5.00) X 10*3/uL Immature Plt Fraction (1.1-6.1) % Sodium 131 L (137-145) mmol/L Potassium 3.4 L (3.5-5.1) mmol/L Chloride 93 L (98-107) mmol/L BUN 27 H (7-17) mg/dL Glucose 312 H (74-99) mg/dL POC Glucose (mg/dL) 223 H (70-110) mg/dL Calcium 8.1 L (8.4-10.2) mg/dL Alkaline Phosphatase 159 H (38-126) U/L Albumin 2.8 L (3.5-5.0) g/dL Crossmatch See Detail Blood Bank Comment Sent to [facility] 03/14/25 Range/Units 16:16 RBC (4.10-5.20) X 10*6/uL Hgb (12.0-15.0) g/dL Hct (37.2-46.3) % MCHC (32.0-37.0) g/dL RDW (11.5-14.5) % Plt Count (140-440) X 10*3/uL MPV (9.5-12.2) FL Immature Gran # (0.00-0.04) X 10*3/uL Lymphocytes # (0.90-5.00) X 10*3/uL Immature Plt Fraction (1.1-6.1) % Sodium (137-145) mmol/L Potassium (3.5-5.1) mmol/L Chloride (98-107) mmol/L BUN (7-17) mg/dL Glucose (74-99) mg/dL POC Glucose (mg/dL) 224 H (70-110) mg/dL Calcium (8.4-10.2) mg/dL Alkaline Phosphatase (38-126) U/L Albumin (3.5-5.0) g/dL Crossmatch Blood Bank Comment Microbiology - Last 24 Hours (Table) 03/13/25 05:50 Blood Culture - Preliminary Blood 03/11/25 12:00 Blood Culture - Preliminary Blood
[2025-03-14 20:01] LABS: Glucose,Whole Blood 153 mg/dL (70-110)
[2025-03-14] MEDS: PANTOPRAZOLE 40 MG/10 ML VIAL IV SCH (20:05)
[2025-03-14] MEDS: POTASSIUM CHLORIDE ER 20 MEQ TAB.ER PO SCH (23:44)
[2025-03-15 06:37] LABS: Glucose,Whole Blood 199 mg/dL (70-110)
[2025-03-15 07:28] LABS: Basophils # (A) 0.03 10*3/uL (0.00-0.10); Basophils % (A) 0.3 %; Eosinophils # (A) 0.09 10*3/uL (0.04-0.35); HCT 29.5 % (37.2-46.3); Lymphocytes # (A) 0.94 10*3/uL (0.90-5.00); Lymphocytes % (A) 10.5 %; MCH 29.9 pg (27.0-32.0); MCHC 31.9 g/dL (32.0-37.0); MCV 93.9 fL (80.0-97.0); Monocytes # (A) 0.47 10*3/uL (0.20-1.00); Monocytes % (A) 5.2 %; Neutrophils # (A) 7.29 10*3/uL (1.80-7.70); Neutrophils % (A) 81.2 %; RBC 3.14 10*6/uL (4.10-5.20); RDW 16.6 % (11.5-14.5); WBC 8.98 10*3/uL (4.50-10.00)
[2025-03-15 07:41] LABS: African American GFR (CKD) 69 (>60 ml/min/1.73 sqM); Anion Gap 8 mmol/L; Blood Urea Nitrogen 26 mg/dL (7-17); Calcium 8.2 mg/dL (8.4-10.2); Carbon Dioxide 26 mmol/L (22-30); Chloride 98 mmol/L (98-107); Glucose 178 mg/dL (74-99); Non-African American GFR(CKD) 60 (>60 ml/min/1.73 sqM); Potassium 4.1 mmol/L (3.5-5.1); Sodium 132 mmol/L (137-145)
[2025-03-15 09:08] LABS: HGB 9.4 g/dL (12.0-15.0)
[2025-03-15 09:09] LABS: Platelet Count 94 10*3/uL (140-440)
--- NOTE | 2025-03-15 10:59 | P.PN ---
Subjective Patient is seen for follow-up for acute kidney injury. Labs have improved with serum creatinine staying at 0.9 to 1.1 mg/dL. Hemoglobin was 5.3 yesterday and patient received packed RBCs transfusion Sodium is 132 No significant complaints. Objective - Vital Signs Vital signs: Vital Signs Temp 97.5 F L 03/15/25 04:15 Pulse 62 03/15/25 04:15 Resp 18 03/15/25 04:15 BP 132/61 03/15/25 04:15 Pulse Ox 100 03/15/25 04:15 FiO2 Intake & Output 03/14/25 03/15/25 03/15/25 18:59 06:59 18:59 Intake Total 360 630 240 Output Total 900 700 Balance -540 -70 240 Weight 118 kg Intake: IV 10 Invasive Line 3 10 Oral 360 240 Blood Product 620 Rc As-1 Unit 310 [id number] Rc As-1 Unit 310 [id number] Output: Urine 900 700 Other: Voiding Method Indwelling Catheter Indwelling Catheter # Bowel Movements 1 - Exam Patient is awake, comfortable, no acute distress Maintained on CPAP Examination of the heart S1 and S2 Examination of the lungs decreased breath sounds at the bases Abdomen is soft obese nontender Examination of lower extremities shows 1+ edema 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 exam grossly intact - Labs CBC & Chem 7: 03/15/25 07:09 03/15/25 07:09 Labs: Abnormal Lab Results - Last 24 Hours (Table) 03/14/25 03/14/25 03/14/25 Range/Units 04:38 11:30 12:48 RBC 1.82 L (4.10-5.20) X 10*6/uL Hgb 5.3 A* (12.0-15.0) g/dL Hct 17.1 A* (37.2-46.3) % MCHC 31.0 L (32.0-37.0) g/dL RDW 17.2 H (11.5-14.5) % Plt Count 61 L (140-440) X 10*3/uL MPV 12.6 H (9.5-12.2) FL Immature Gran # 0.10 H (0.00-0.04) X 10*3/uL Lymphocytes # 0.87 L (0.90-5.00) X 10*3/uL Immature Plt Fraction 6.3 H (1.1-6.1) % Sodium (137-145) mmol/L Potassium (3.5-5.1) mmol/L Chloride (98-107) mmol/L BUN (7-17) mg/dL Glucose (74-99) mg/dL POC Glucose (mg/dL) 223 H (70-110) mg/dL Calcium (8.4-10.2) mg/dL Alkaline Phosphatase (38-126) U/L Albumin (3.5-5.0) g/dL Crossmatch See Detail Blood Bank Comment Sent to [facility] A 03/14/25 03/14/25 03/14/25 Range/Units 12:52 16:16 19:59 RBC (4.10-5.20) X 10*6/uL Hgb (12.0-15.0) g/dL Hct (37.2-46.3) % MCHC (32.0-37.0) g/dL RDW (11.5-14.5) % Plt Count (140-440) X 10*3/uL MPV (9.5-12.2) FL Immature Gran # (0.00-0.04) X 10*3/uL Lymphocytes # (0.90-5.00) X 10*3/uL Immature Plt Fraction (1.1-6.1) % Sodium 131 L (137-145) mmol/L Potassium 3.4 L (3.5-5.1) mmol/L Chloride 93 L (98-107) mmol/L BUN 27 H (7-17) mg/dL Glucose 312 H (74-99) mg/dL POC Glucose (mg/dL) 224 H 153 H (70-110) mg/dL Calcium 8.1 L (8.4-10.2) mg/dL Alkaline Phosphatase 159 H (38-126) U/L Albumin 2.8 L (3.5-5.0) g/dL Crossmatch Blood Bank Comment 03/15/25 03/15/25 03/15/25 Range/Units 06:36 07:09 07:09 RBC 3.14 L (4.10-5.20) X 10*6/uL Hgb 9.4 L D (12.0-15.0) g/dL Hct 29.5 L (37.2-46.3) % MCHC 31.9 L (32.0-37.0) g/dL RDW (11.5-14.5) % Plt Count 94 L D (140-440) X 10*3/uL MPV (9.5-12.2) FL Immature Gran # 0.16 H (0.00-0.04) X 10*3/uL Lymphocytes # (0.90-5.00) X 10*3/uL Immature Plt Fraction (1.1-6.1) % Sodium 132 L (137-145) mmol/L Potassium (3.5-5.1) mmol/L Chloride (98-107) mmol/L BUN 26 H (7-17) mg/dL Glucose 178 H (74-99) mg/dL POC Glucose (mg/dL) 199 H (70-110) mg/dL Calcium 8.2 L (8.4-10.2) mg/dL Alkaline Phosphatase (38-126) U/L Albumin (3.5-5.0) g/dL Crossmatch Blood Bank Comment Microbiology - Last 24 Hours (Table) 03/11/25 12:00 Blood Culture - Preliminary Blood 03/13/25 05:50 Blood Culture - Preliminary Blood Assessment and Plan Assessment: 1. Acute kidney injury secondary to ATN secondary to hypotension. Also concern for cardiorenal syndrome. Creatinine 1.46 on admission - 0.9 today. UA fairly benign. 2. Chronic kidney disease stage IIIa with baseline creatinine 1.2-1.3 secondary to diabetic kidney disease. 3. Volume overload. On Lasix. Improved. 4. Hyponatremia, hypervolemic. Also component of hypertonicity from hyperglycemia. Improving. Urine sodium less than 20 and urine osmolality 417. 5. Diabetes mellitus. 6. Anemia. Rule out iron deficiency. Questionable GI bleed. Stool for occult blood positive. Packed RBCs transfusion for hemoglobin of 5.3 on 03/14/2025. 7. Acute on chronic systolic CHF ejection fraction of 40 to 45% with severe pulmonary hypertension, moderate tricuspid regurgitation. 8. Enterococcus bacteremia on antibiotics. 9. Hypokalemia from diuresis. Replaced. Plan: Continue off of IV fluids Repeat labs in a.m.
[2025-03-15 11:16] LABS: % Iron Saturation 54.67 (12.00-45.00)
[2025-03-15 11:31] LABS: Glucose,Whole Blood 174 mg/dL (70-110)
--- NOTE | 2025-03-15 11:33 | P.PN ---
Subjective HISTORY OF PRESENT ILLNESS: This is a 80-year-old female patient of Dr. 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 We have been asked to evaluate the patient for CHF. Patient's last office visit with Dr. Watson was 06/24/2020 for. Patient has had multiple hospitalizations [facility] that time including most recently 02/13 - 02/23/2025 at which time she was seen by cardiology. She was hospitalized at that time for COVID-19 and treated for acute on chronic systolic heart failure. At some point, patient's Eliquis was decreased to 2.5 mg twice daily. She has had positive occult blood in the past with anemia and underwent colonoscopy in October with Dr. Hines that found tubular adenoma x 2 without active bleeding. Patient gives history that she came into the hospital because she did not have any energy, no interest in anything and was sleeping a lot. She also complains of shortness of breath with minimal activity, no orthopnea. Patient is poor historian. Blood pressure 121/62, heart rates in the 60s, pulse ox 98% on 6 L nasal cannula. Patient was also on CPAP earlier. Patient has been started on IV Lasix 40 mg every 12 hours. -EKG: Atrial paced rhythm. -Chest x-ray: Persistent left basilar airspace disease atelectasis or pneumonia. Persistent small left pleural effusion. -Gallbladder ultrasound: Gallbladder not visualized. Right kidney not visualize d. -CT head: No acute intracranial process. -Laboratory studies: Hemoglobin 7.9 repeat 7.7, platelet count 39, WBC 5.0. Sodium 122, potassium 4.5, BUN 65 and creatinine improved from 1.46-1.23. Lact ic acid 3.1 repeat 2.0. Troponins 0.087, 0.084, 0.084. Urinalysis negative for infection. Stool for occult blood positive. Acetone negative. Cepheid viral panel not detected. -Home cardiac medications: Eliquis 2.5 mg twice daily, atorvastatin 40 mg at bedtime, Farxiga 10 mg daily, Lasix 40 mg twice daily, losartan 12.5 mg daily, metolazone 2.5 mg daily, metoprolol succinate 50 mg in the morning and 25 mg at bedtime. -Echocardiogram performed 01/30/2025 at [facility] revealed suboptimal study, EF 40 to 45%, severe pulmonary hypertension. -Cardiac PCI performed 01/05/2021 to the mid diagonal 1 and ostial PDA. -Cardiovascular surgery with TAVR 11/04/2018. -Cardiovascular surgery with tissue AVR, tissue MVR, tricuspid valve repair 05/20/2024 at [facility]. 03/10/2025 Patient is more alert clinically. She has a Enterococcus growing in her blood. She has also a decubitus ulcer on her back. She has history of multivalve her surgery and I am concerned about seeding. However she is on aggressive antibiotic therapy mentally she is more alert responsive to questions hemodynamically stable and no overt heart failure at this time. We will continue supportive care and current medical regimen. 03/11/2025 Patient examined this morning at the bedside. Patient currently denies chest pain or pressure. She denies shortness of breath. Vital signs are stable. 03/13/2025 Patient is seen and examined at bedside this a.m. She underwent a MELISSA yesterday which showed evidence of vegetation attached to the mitral plastering towards the atrial side suggestive of endocarditis. bp 113/65 hr 64 bpm 03/15/2025 Patient examined this morning at the bedside. She is currently sitting up in the chair. Patient's daughter is present. Patient is emotional this morning regarding everything going on with her health. Patient is currently wearing her home CPAP. Patient's hemoglobin yesterday was 5.3. She received 2 units RBCs. Repeat hemoglobin today 9.4. PHYSICAL EXAM: VITAL SIGNS: Reviewed. GENERAL: Well-developed in no acute distress. NECK: Supple. No JVD or thyromegaly LUNGS: Respirations even and unlabored. Lungs essentially clear to auscultation bilaterally. HEART: Regular rate and rhythm. S1 and S2 heard. EXTREMITIES: Normal range of motion. No clubbing or cyanosis. Peripheral pulses intact. 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, likely source from sacral ulcer stage II Generalized weakness most likely secondary to combination of hyponatremia, acute kidney injury, recent COVID Hyponatremia Acute kidney injury Recent COVID Pancytopenia Rule out sepsis Metabolic encephalopathy Acute on chronic heart failure with EF of 40 to 45% Valvular heart disease status post TAVR status post open aortic valve replacement, mitral valve replacement, tricuspid valve repair in May 2024 Paroxysmal atrial fibrillation, paced rhythm Hypertension Dyslipidemia Diabetes mellitus type 2 insulin requiring Hypothyroidism Coronary artery disease with previous stent to the mid diagonal 1 and ostial PDA Anemia with questionable GI bleed, stool for occult blood positive, status post 2 units RBCs 03/14/2025 PLAN: Anticoagulation has been discontinued during hospitalization secondary to anemia Continue current cardiac medications including Lipitor, Bumex, metoprolol succinate, and Aldactone Daily weights, accurate intake and output, monitoring of kidney function Continue antibiotics per infectious disease Further recommendations pending patient course Nurse practitioner note has been reviewed by physician. Signing provider agrees with the documented findings, assessment, and plan of care documented by DRY CLEANER HELPER as a scribe. Objective - Vital Signs Vital signs: Vital Signs Temp 97.5 F L 03/15/25 04:15 Pulse 62 03/15/25 04:15 Resp 18 03/15/25 04:15 BP 132/61 03/15/25 04:15 Pulse Ox 100 03/15/25 04:15 FiO2 Intake & Output 03/14/25 03/15/25 03/15/25 18:59 06:59 18:59 Intake Total 360 630 240 Output Total 900 700 Balance -540 -70 240 Weight 118 kg Intake: IV 10 Invasive Line 3 10 Oral 360 240 Blood Product 620 Rc As-1 Unit 310 [id number] Rc As-1 Unit 310 [id number] Output: Urine 900 700 Other: Voiding Method Indwelling Catheter Indwelling Catheter # Bowel Movements 1 - Labs CBC & Chem 7: 03/15/25 07:09 03/15/25 07:09 Labs: Abnormal Lab Results - Last 24 Hours (Table) 03/14/25 03/14/25 03/14/25 Range/Units 11:30 12:48 12:52 RBC (4.10-5.20) 10*6/uL Hgb (12.0-15.0) g/dL Hct (37.2-46.3) % MCHC (32.0-37.0) g/dL Plt Count (140-440) 10*3/uL Immature Gran # (0.00-0.04) 10*3/uL Sodium 131 L (137-145) mmol/L Potassium 3.4 L (3.5-5.1) mmol/L Chloride 93 L (98-107) mmol/L BUN 27 H (7-17) mg/dL Glucose 312 H (74-99) mg/dL POC Glucose (mg/dL) 223 H (70-110) mg/dL Calcium 8.1 L (8.4-10.2) mg/dL TIBC (228-460) UG/DL % Saturation (12.00-45.00) Transferrin (204.0-354.0) mg/dL Ferritin (10.0-291.0) ng/mL Alkaline Phosphatase 159 H (38-126) U/L Albumin 2.8 L (3.5-5.0) g/dL Crossmatch See Detail Blood Bank Comment Sent to [facility] A 03/14/25 03/14/25 03/15/25 Range/Units 16:16 19:59 06:36 RBC (4.10-5.20) 10*6/uL Hgb (12.0-15.0) g/dL Hct (37.2-46.3) % MCHC (32.0-37.0) g/dL Plt Count (140-440) 10*3/uL Immature Gran # (0.00-0.04) 10*3/uL Sodium (137-145) mmol/L Potassium (3.5-5.1) mmol/L Chloride (98-107) mmol/L BUN (7-17) mg/dL Glucose (74-99) mg/dL POC Glucose (mg/dL) 224 H 153 H 199 H (70-110) mg/dL Calcium (8.4-10.2) mg/dL TIBC (228-460) UG/DL % Saturation (12.00-45.00) Transferrin (204.0-354.0) mg/dL Ferritin (10.0-291.0) ng/mL Alkaline Phosphatase (38-126) U/L Albumin (3.5-5.0) g/dL Crossmatch Blood Bank Comment 03/15/25 03/15/25 03/15/25 Range/Units 07:09 07:09 07:09 RBC 3.14 L (4.10-5.20) 10*6/uL Hgb 9.4 L D (12.0-15.0) g/dL Hct 29.5 L (37.2-46.3) % MCHC 31.9 L (32.0-37.0) g/dL Plt Count 94 L D (140-440) 10*3/uL Immature Gran # 0.16 H (0.00-0.04) 10*3/uL Sodium 132 L (137-145) mmol/L Potassium (3.5-5.1) mmol/L Chloride (98-107) mmol/L BUN 26 H (7-17) mg/dL Glucose 178 H (74-99) mg/dL POC Glucose (mg/dL) (70-110) mg/dL Calcium 8.2 L (8.4-10.2) mg/dL TIBC 214 L (228-460) UG/DL % Saturation 54.67 H (12.00-45.00) Transferrin 153.0 L (204.0-354.0) mg/dL Ferritin 493.0 H (10.0-291.0) ng/mL Alkaline Phosphatase (38-126) U/L Albumin (3.5-5.0) g/dL Crossmatch Blood Bank Comment Microbiology - Last 24 Hours (Table) 03/11/25 12:00 Blood Culture - Preliminary Blood 03/13/25 05:50 Blood Culture - Preliminary Blood
--- NOTE | 2025-03-15 13:06 | P.PN ---
Subjective Progress Note Date: 03/15/25 80-year-old female with history of mitral valve replacement congestive heart failure EF of around 40 to 45% came in with complaints of generalized weakness. Patient is found to be hyponatremic. Patient is on 6 L of oxygen usually uses 4 to 5 L at home. Patient does have history of obstructive sleep apnea for which patient is on BiPAP at home. Patient had no fever or chills patient does not have any leukocytosis patient does not have any complaints of dysuria suprapubic pain urine is essentially within normal limits chest x-ray showed some nonspecific infiltrate not consistent with pneumonia. Will obtain a procalcitonin level patient's BNP is elevated to 8000 patient's previous BNP was 5000. Patient does have bilateral lower extremity pedal edema. Patient does have stage II decubitus ulcers does not appear to be infected. Patient was started on vancomycin probably for that reason in ER. Patient has minimally elevated troponins. 03/09/2025 Patient is evaluated today in follow up in the intensive care unit. Patient remains on antibiotics in the form of IV Unasyn. Her blood culture did come back positive for Enterococcus faecalis. It was repeated today and ID is following. Labs today reveal a white blood cell count of 6.20, hemoglobin 8.1, sodium 127, BUN of 63 creatinine of 1.26. AST and ALT are significantly improved. 03/10/2025 Patient evaluated in the intensive care unit remains on CPAP and tolerating well. More awake and alert. Repeat blood culture positive for enterococcus. Limited echocardiogram reveals EF 55-60%, mild pulmonary hypertension, mild TR, there is mitral valve and tricuspid valve repair as well as AVR. Technically difficult study. Does not appear to be any vegetation noted. Remains on IV unasyn. white blood cell count 8.40, hgb 7.8, platelet 32, sodium 130, potassium 4.2, BUN 55, creatinine 1.06. 03/11/2025 Patient is evaluated today in follow up; has been moved out of the ICU. Patient currently on oxygen via nasal cannula. Patient continues with persistent bacteremia with enterococcus faecalis and discussed echocardiogram findings with ID and recommendations made for MELISSA. Pt. will be going for the MELISSA on 03/12/[address] Watson. She will need to be NPO after midnight. Patient remains on IV unasyn and IV ceftriaxone. Blood pressure into the 90s this morning and a 500 cc bolus was given. She is tolerating oxygen via nasal cannula and also utilizing the CPAP at the bedside. Patient is more awake alert and oriented at this time. 03/12/2025 Patient is seen in follow-up today currently n.p.o. continues on her CPAP machine scheduled to undergo MELISSA with cardiology following. Multiple consultations following including infectious disease maintained on IV antibiotics and continues to have persistent bacteremia with Enterococcus awaiting MELISSA report. Patient is afebrile with no reports chest pain or worsening shortness of breath. 03/13. Patient seen and examined. Vitals this morning show temperature 99.3, heart rate 63, blood pressure 109/65 03/14. Patient seen and examined. Hemoglobin this morning is 5.3, patient being given 2 units of packed red blood cell. Had an episode of dark stool this morning. FOBT is positive 03/15. Patient seen and examined. Blood work done this morning showed WBC 8.98, hemoglobin 9.4, sodium 132, potassium 4.1. Patient very emotional this morning. Was concerned about her overall health. Explained to her the need for her to be evaluated with surgery for anemia REVIEW OF SYSTEMS: CONSTITUTIONAL: No fever, no malaise,. CARDIOVASCULAR: No chest pain, no palpitations, no syncope. PULMONARY: No shortness of breath, no cough, GASTROINTESTINAL: No diarrhea, no nausea, no vomiting, no abdominal pain. NEUROLOGICAL: No headaches, no weakness, PHYSICAL EXAMINATION: GENERAL: The patient is alert and oriented x3, ill looking HEENT: Pupils are round and equally reacting to light. EOMI. No scleral icterus. No conjunctival pallor. Normocephalic, atraumatic. No pharyngeal erythema. No thyromegaly. CARDIOVASCULAR: S1 and S2 present. No murmurs, rubs, or gallops. PULMONARY: Chest is clear to auscultation, no wheezing or crackles. ABDOMEN: Soft, nontender, nondistended, normoactive bowel sounds. No palpable organomegaly. MUSCULOSKELETAL: No joint swelling or deformity. EXTREMITIES: No cyanosis, clubbing, or pedal edema. NEUROLOGICAL: Gross neurological examination did not reveal any focal deficits. SKIN: No rashes. Assessment and plan - Sepsis and enterococcus bacteremia POA as blood culture collected on admission positive for enterococcus, status post MELISSA which was positive for mitral valve endocarditis Acute blood loss anemia GI bleed - Congestive heart failure chronic systolic function with acute exacerbation. - Hypervolemic hyponatremia, improving - Acute on chronic hypoxic respiratory failure secondary to pulmonary edema. - Type 2 diabetes mellitus uncontrolled with elevated blood sugars - History of atrial fibrillation: Patient is presently rate controlled patient probably has paroxysmal A-fib on Eliquis at home - History of GI bleed - History of pancytopenia follows with hematology outpatient this is because of the slow GI bleed - History of bioprosthetic aortic valve replacement - Sleep apnea on CPAP machine -Transaminitis likely from sepsis improving -Hypothyroidism - Morbid obesity with a BMI of 46.5 Monitor vital signs Monitor CBC Monitor CMP Continue telemetry monitoring MELISSA showing mitral valve endocarditis Continue Unasyn and Rocephin Status post 2 units of packed red blood cells on03/14 Continue Lipitor ID following Nephrology following Surgery consulted Labs and medication were reviewed.. Continue same treatment. Continue with symptomatic treatment. Resume home medication. Monitor labs and vitals. DVT and GI prophylaxis. Further recommendations as per clinical course of the patient Dictation was produced using [employer] dictation software. please excuse any grammatical, word or spelling errors. Objective - Vital Signs Vital signs: Vital Signs Temp 97.5 F L 03/15/25 04:15 Pulse 62 03/15/25 04:15 Resp 18 03/15/25 04:15 BP 132/61 03/15/25 04:15 Pulse Ox 100 03/15/25 04:15 FiO2 Intake & Output 03/14/25 03/15/25 03/15/25 18:59 06:59 18:59 Intake Total 360 630 240 Output Total 900 700 Balance -540 -70 240 Weight 118 kg Intake: IV 10 Invasive Line 3 10 Oral 360 240 Blood Product 620 As-1 Unit 310 [id number] As-1 Unit 310 [id number] Output: Urine 900 700 Other: Voiding Method Indwelling Catheter Indwelling Catheter # Bowel Movements 1 - Labs CBC & Chem 7: 03/15/25 07:09 03/15/25 07:09 Labs: Abnormal Lab Results - Last 24 Hours (Table) 03/14/25 03/14/25 03/14/25 Range/Units 04:38 11:30 12:48 RBC 1.82 L (4.10-5.20) X 10*6/uL Hgb 5.3 A* (12.0-15.0) g/dL Hct 17.1 A* (37.2-46.3) % MCHC 31.0 L (32.0-37.0) g/dL RDW 17.2 H (11.5-14.5) % Plt Count 61 L (140-440) X 10*3/uL MPV 12.6 H (9.5-12.2) FL Immature Gran # 0.10 H (0.00-0.04) X 10*3/uL Lymphocytes # 0.87 L (0.90-5.00) X 10*3/uL Immature Plt Fraction 6.3 H (1.1-6.1) % Sodium (137-145) mmol/L Potassium (3.5-5.1) mmol/L Chloride (98-107) mmol/L BUN (7-17) mg/dL Glucose (74-99) mg/dL POC Glucose (mg/dL) 223 H (70-110) mg/dL Calcium (8.4-10.2) mg/dL Alkaline Phosphatase (38-126) U/L Albumin (3.5-5.0) g/dL Crossmatch See Detail [facility] 03/14/25 03/14/25 03/14/25 Range/Units 12:52 16:16 19:59 RBC (4.10-5.20) X 10*6/uL Hgb (12.0-15.0) g/dL Hct (37.2-46.3) % MCHC (32.0-37.0) g/dL RDW (11.5-14.5) % Plt Count (140-440) X 10*3/uL MPV (9.5-12.2) FL Immature Gran # (0.00-0.04) X 10*3/uL Lymphocytes # (0.90-5.00) X 10*3/uL Immature Plt Fraction (1.1-6.1) % Sodium 131 L (137-145) mmol/L Potassium 3.4 L (3.5-5.1) mmol/L Chloride 93 L (98-107) mmol/L BUN 27 H (7-17) mg/dL Glucose 312 H (74-99) mg/dL POC Glucose (mg/dL) 224 H 153 H (70-110) mg/dL Calcium 8.1 L (8.4-10.2) mg/dL Alkaline Phosphatase 159 H (38-126) U/L Albumin 2.8 L (3.5-5.0) g/dL Crossmatch Blood Bank Comment 03/15/25 03/15/25 03/15/25 Range/Units 06:36 07:09 07:09 RBC 3.14 L (4.10-5.20) X 10*6/uL Hgb 9.4 L D (12.0-15.0) g/dL Hct 29.5 L (37.2-46.3) % MCHC 31.9 L (32.0-37.0) g/dL RDW (11.5-14.5) % Plt Count (140-440) X 10*3/uL MPV (9.5-12.2) FL Immature Gran # 0.16 H (0.00-0.04) X 10*3/uL Lymphocytes # (0.90-5.00) X 10*3/uL Immature Plt Fraction (1.1-6.1) % Sodium 132 L (137-145) mmol/L Potassium (3.5-5.1) mmol/L Chloride (98-107) mmol/L BUN 26 H (7-17) mg/dL Glucose 178 H (74-99) mg/dL POC Glucose (mg/dL) 199 H (70-110) mg/dL Calcium 8.2 L (8.4-10.2) mg/dL Alkaline Phosphatase (38-126) U/L Albumin (3.5-5.0) g/dL Crossmatch Blood Bank Comment Microbiology - Last 24 Hours (Table) 03/11/25 12:00 Blood Culture - Preliminary Blood 03/13/25 05:50 Blood Culture - Preliminary Blood
--- NOTE | 2025-03-15 13:40 | P.GSCN ---
History of Present Illness Consult date: 03/15/25 History of present illness: CHIEF COMPLAINT: Weakness HISTORY OF PRESENT ILLNESS: This is a 80-year-old female with history of aortic valve replacement, mitral valve replacement, tricuspid valve repair in May 2024.. Patient had evidence of sepsis with evidence of mitral valve endocarditis. She is on antibiotics. Followed by infectious disease. She did have a hemoglobin of 5.3 with dark stools. She received 2 units of blood and hemoglobin is up to 9.4. Patient's last colonoscopy was in October 2024 with colon polyps, tubular adenomas. Last EGD also October 2024 reported gastritis and esophagitis. Patient denies any abdominal pain. She is currently off of anticoagulation due to the anemia. Her last dark stool was this morning per nursing staff. Patient is a poor historian. PAST MEDICAL HISTORY: Atrial Fibrillation, Diabetes Mellitus, Hearing Disorder / Deafness, Hyperlipidemia, Osteoarthritis (OA), Pneumonia, Sleep Apnea/CPAP/BIPAP, Thyroid Disorder PAST SURGICAL HISTORY: JOSEPH THUMB JOINTS REPLACED; JOSEPH CARPAL TUNNEL RELEASE ; JOSEPH KNEE ARTHROSCOPIES; TOTAL RT KNEE 04/2013, LATER HAD MANIPULATION OF KNEE. HAD THYROID AND PARATHYROID REMOVAL. TOTAL LEFT KNEE REPLACEMENT, CATARACT RT EYE, CATARACT LEFT EYE SURGERY ,COLONOSCOPY, TVAR-11/2018 , Aortic valve replacement 10/2018 MEDICATIONS: See below ALLERGIES: See below SOCIAL HISTORY: No illicit drug use. REVIEW OF SYSTEMS: CONSTITUTIONAL: Denies fever or chills. HEENT: Denies blurred vision, vision changes, or eye pain. Denies hemoptysis CARDIOVASCULAR: Denies chest pain or pressure. RESPIRATORY: No shortness of breath. GASTROINTESTINAL: See HPI for pertinent findings HEMATOLOGIC: Denies bleeding disorders. GENITOURINARY: Denies any blood in urine or increased urinary frequency. SKIN: Denies pruitis. Denies rash. PHYSICAL EXAM: VITAL SIGNS: Reviewed GENERAL: Well-developed in no acute distress. HEENT: No sclera icterus. Extraocular movements grossly intact. Moist buccal mucosa. Head is atraumatic, normocephalic. No nasal drainage. ABDOMEN: Soft. Obese. Nondistended. Nontender NEUROLOGIC: Alert and oriented. Cranial nerves II through XII grossly intact. LABORATORY DATA: WBC 8.98 Hgb 5.3 up to 9.4 platelets 94 Sodium 132 potassium 4.1 creatinine 0.91 Iron 117 IMAGING: ASSESSMENT: 1. Anemia with melanotic stools, has required blood transfusion 2. Mitral valve endocarditis PLAN: - Patient scheduled for EGD and colonoscopy on with Dr. Tolbert - Continue to monitor hemoglobin - Continue to monitor for any signs or symptoms of bleeding - Continue IV Protonix twice a day - Continue to hold anticoagulation Physician Glue Spreading Machine Operator note has been reviewed by physician. Signing provider agrees with the documented findings, assessment, and plan of care. 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 HAD THYROID AND PARATHYROID REMOVAL. TOTAL LEFT KNEE REPLACEMENT, CATARACT RT EYE, CATARACT LEFT EYE SURGERY ,COLONOSCOPY, TVAR- 11/2018 , Aortic valve replacement 10/2018 Past Anesthesia/Blood Transfusion Reactions: No Reported Reaction Type of Cardiac Device: Permanent Pacemaker Device Placement Date:: PACEMAKER NOV 2017. Past Psychological History: No Psychological Hx Reported Smoking Status: Never smoker Past Alcohol Use History: None Reported Past Drug Use History: None Reported - Past Family History Daughter(s) Family Medical History: Deep Vein Thrombosis (DVT) Sister(s) Family Medical History: Cancer Additional Family Medical History / Comment(s): BREAST CANCER Medications and Allergies Home Medications Medication Instructions Recorded Confirmed Type Levothyroxine Sodium [Levoxyl] 175 mcg PO DAILY 10/25/20 03/08/25 History FLUoxetine HCL [PROzac] 10 mg PO DAILY 10/08/24 03/08/25 History Insulin Aspart [NovoLOG Flexpen] 40 units SQ TID-W/MEALS 10/08/24 03/08/25 History Insulin Glargine,Hum.rec.anlog 20 units SQ HS 10/08/24 03/08/25 History [Lantus Solostar Pen] Calcium Carbonate [Calcium] 600 mg PO BID 01/28/25 03/08/25 History Acetaminophen Tab [Tylenol] 650 mg PO Q6HR PRN tab 02/05/25 03/08/25 Rx Atorvastatin [Lipitor] 40 mg PO HS #30 tab 02/05/25 03/08/25 Rx Dapagliflozin Propanediol [Farxiga] 10 mg PO DAILY #30 tab 02/05/25 03/08/25 Rx Metoprolol Succinate (ER) [Toprol 25 mg PO HS #30 tab 02/05/25 03/08/25 Rx XL] Metoprolol Succinate (ER) [Toprol 50 mg PO DAILY tab 02/05/25 03/08/25 Rx XL] metOLazone [Zaroxolyn] 2.5 mg PO DAILY #30 tab 02/05/25 03/08/25 Rx Ascorbic Acid [Vitamin C] 500 mg PO DAILY #30 tab 02/23/25 03/08/25 Rx Cholecalciferol [Vitamin D3 (125 125 mcg PO DAILY #30 tab 02/23/25 03/08/25 Rx Mcg = 5000 Iu)] Furosemide [Lasix] 40 mg PO BID@0900,1600 tab 02/23/25 03/08/25 Rx Losartan [Cozaar] 12.5 mg PO DAILY 30 Days #15 tab 02/23/25 03/08/25 Rx Zinc Sulfate [Orazinc] 220 mg PO DAILY 15 Days #15 cap 02/23/25 03/08/25 Rx Apixaban [Eliquis] 5 mg PO BID 03/08/25 03/08/25 History Allergies Allergy/AdvReac Type Severity Reaction Status Date / Time azithromycin Allergy Rash/Hives Verified 03/10/25 19:01 nitrofurantoin Allergy Rash/Hives Verified 03/08/25 11:42 macrocrystalline [From Macrodantin] phenazopyridine HCl Allergy Rash/Hives Verified 03/08/25 11:42 [From Pyridium] Surgical - Exam Vital Signs Temp Pulse Resp BP Pulse Ox 98.4 F 65 22 83/41 93 L 03/07/25 23:22 03/07/25 23:22 03/07/25 23:22 03/07/25 23:22 03/07/25 23:22 Results - Labs 03/15/25 07:09 03/15/25 07:09 Abnormal Lab Results - Last 24 Hours (Table) 03/14/25 03/14/25 03/14/25 Range/Units 12:48 12:52 16:16 RBC (4.10-5.20) 10*6/uL Hgb (12.0-15.0) g/dL Hct (37.2-46.3) % MCHC (32.0-37.0) g/dL Plt Count (140-440) 10*3/uL Immature Gran # (0.00-0.04) 10*3/uL Sodium 131 L (137-145) mmol/L Potassium 3.4 L (3.5-5.1) mmol/L Chloride 93 L (98-107) mmol/L BUN 27 H (7-17) mg/dL Glucose 312 H (74-99) mg/dL POC Glucose (mg/dL) 224 H (70-110) mg/dL Calcium 8.1 L (8.4-10.2) mg/dL TIBC (228-460) UG/DL % Saturation (12.00-45.00) Transferrin (204.0-354.0) mg/dL Ferritin (10.0-291.0) ng/mL Alkaline Phosphatase 159 H (38-126) U/L Albumin 2.8 L (3.5-5.0) g/dL Crossmatch See Detail Blood Bank Comment Sent to [facility] 03/14/25 03/15/25 03/15/25 Range/Units 19:59 06:36 07:09 RBC (4.10-5.20) 10*6/uL Hgb (12.0-15.0) g/dL Hct (37.2-46.3) % MCHC (32.0-37.0) g/dL Plt Count (140-440) 10*3/uL Immature Gran # (0.00-0.04) 10*3/uL Sodium (137-145) mmol/L Potassium (3.5-5.1) mmol/L Chloride (98-107) mmol/L BUN (7-17) mg/dL Glucose (74-99) mg/dL POC Glucose (mg/dL) 153 H 199 H (70-110) mg/dL Calcium (8.4-10.2) mg/dL TIBC 214 L (228-460) UG/DL % Saturation 54.67 H (12.00-45.00) Transferrin 153.0 L (204.0-354.0) mg/dL Ferritin 493.0 H (10.0-291.0) ng/mL Alkaline Phosphatase (38-126) U/L Albumin (3.5-5.0) g/dL Crossmatch Blood Bank Comment 03/15/25 03/15/25 03/15/25 Range/Units 07:09 07:09 11:30 RBC 3.14 L (4.10-5.20) 10*6/uL Hgb 9.4 L D (12.0-15.0) g/dL Hct 29.5 L (37.2-46.3) % MCHC 31.9 L (32.0-37.0) g/dL Plt Count 94 L D (140-440) 10*3/uL Immature Gran # 0.16 H (0.00-0.04) 10*3/uL Sodium 132 L (137-145) mmol/L Potassium (3.5-5.1) mmol/L Chloride (98-107) mmol/L BUN 26 H (7-17) mg/dL Glucose 178 H (74-99) mg/dL POC Glucose (mg/dL) 174 H (70-110) mg/dL Calcium 8.2 L (8.4-10.2) mg/dL TIBC (228-460) UG/DL % Saturation (12.00-45.00) Transferrin (204.0-354.0) mg/dL Ferritin (10.0-291.0) ng/mL Alkaline Phosphatase (38-126) U/L Albumin (3.5-5.0) g/dL Crossmatch Blood Bank Comment Microbiology - Last 24 Hours (Table) 03/13/25 05:50 Blood Culture - Preliminary Blood 03/11/25 12:00 Blood Culture - Preliminary Blood Diabetes panel 03/14/25 03/15/25 Range/Units 12:52 07:09 Sodium 131 L 132 L (137-145) mmol/L Potassium 3.4 L 4.1 (3.5-5.1) mmol/L Chloride 93 L 98 (98-107) mmol/L Carbon Dioxide 30 26 (22-30) mmol/L BUN 27 H 26 H (7-17) mg/dL Creatinine 1.00 0.91 (0.52-1.04) mg/dL Glucose 312 H 178 H (74-99) mg/dL Calcium 8.1 L 8.2 L (8.4-10.2) mg/dL AST 29 (14-36) U/L ALT 34 (4-34) U/L Alkaline Phosphatase 159 H (38-126) U/L Total Protein 6.7 (6.3-8.2) g/dL Albumin 2.8 L (3.5-5.0) g/dL Calcium panel 03/14/25 03/15/25 Range/Units 12:52 07:09 Calcium 8.1 L 8.2 L (8.4-10.2) mg/dL Albumin 2.8 L (3.5-5.0) g/dL Pituitary panel 03/14/25 03/15/25 Range/Units 12:52 07:09 Sodium 131 L 132 L (137-145) mmol/L Potassium 3.4 L 4.1 (3.5-5.1) mmol/L Chloride 93 L 98 (98-107) mmol/L Carbon Dioxide 30 26 (22-30) mmol/L BUN 27 H 26 H (7-17) mg/dL Creatinine 1.00 0.91 (0.52-1.04) mg/dL Glucose 312 H 178 H (74-99) mg/dL Calcium 8.1 L 8.2 L (8.4-10.2) mg/dL Adrenal panel 03/14/25 03/15/25 Range/Units 12:52 07:09 Sodium 131 L 132 L (137-145) mmol/L Potassium 3.4 L 4.1 (3.5-5.1) mmol/L Chloride 93 L 98 (98-107) mmol/L Carbon Dioxide 30 26 (22-30) mmol/L BUN 27 H 26 H (7-17) mg/dL Creatinine 1.00 0.91 (0.52-1.04) mg/dL Glucose 312 H 178 H (74-99) mg/dL Calcium 8.1 L 8.2 L (8.4-10.2) mg/dL Total Bilirubin 0.8 (0.2-1.3) mg/dL AST 29 (14-36) U/L ALT 34 (4-34) U/L Alkaline Phosphatase 159 H (38-126) U/L Total Protein 6.7 (6.3-8.2) g/dL Albumin 2.8 L (3.5-5.0) g/dL
--- NOTE | 2025-03-15 16:05 | XR ---
EXAMINATION TYPE: XR chest 1V DATE OF EXAM: 03/15/2025 COMPARISON: 03/10/2025 CLINICAL INDICATION: Female, 80 years old with history of For placement of PICC line; TECHNIQUE: Single frontal view of the chest is obtained. FINDINGS: Right PICC tip not clearly seen beyond the lower right subclavian level. Left anterior chest wall pac emaker generator with right atrial and ventricular leads. Median sternotomy wires and prosthetic aort ic valve. Heart remains more like to mildly enlarged. Ongoing small left pleural effusion with left b asilar opacity. Ongoing interstitial densities. IMPRESSION: 1. Right PICC line tip not clearly seen beyond the lower right subclavian vein level. 2. Ongoing mild CHF with pulmonary vascular congestion. 3. Ongoing small left pleural effusion with adjacent atelectasis and/or consolidation. [facility], , 03/15/2025 4:02 PM
[2025-03-15 16:34] LABS: Glucose,Whole Blood 132 mg/dL (70-110)
[2025-03-15 19:48] LABS: Glucose,Whole Blood 133 mg/dL (70-110)
[2025-03-16 06:07] LABS: Glucose,Whole Blood 181 mg/dL (70-110)
--- NOTE | 2025-03-16 07:41 | P.PN ---
Subjective Progress Note Date: 03/15/25 Principal diagnosis: Reason for follow-up is bacteremia Patient is a 80-year-old female with multiple comorbidities including type 2 diabetes mellitus hypertension hyperlipidemia atrial fibrillation coronary artery disease did have TAVR in 2018 subsequently open aortic valve replacement MVR and tricuspid valve repair done at [facility] on 05/20/2024 recently admitted to hospital and treated for COVID-19 pneumonia now being admitted to the hospital generalized weakness and did have a positive blood culture with Enterococcus On today's evaluation that is 03/15/2025, Patient is afebrile this morning patient denies having any chest pain shortness of breath or cough, the patient is currently on CPAP, patient denies any abdominal pain no diarrhea no nausea no vomiting. Patient white count is 8.98, creatinine 0.9,Blood culture repeat has been negative Objective - Vital Signs Vital signs: Vital Signs Temp 97.5 F L 03/15/25 08:00 Pulse 62 03/15/25 12:00 Resp 18 03/15/25 08:00 BP 142/87 03/15/25 12:00 Pulse Ox 100 03/15/25 12:00 FiO2 Intake & Output 03/14/25 03/15/25 03/15/25 18:59 06:59 18:59 Intake Total 360 630 240 Output Total 900 700 Balance -540 -70 240 Weight 118 kg Intake: IV 10 Invasive Line 3 10 Oral 360 240 Blood Product 620 As-1 Unit 310 [id number] Rc As-1 Unit 310 [id number] Output: Urine 900 700 Other: Voiding Method Indwelling Catheter Indwelling Catheter Indwelling Catheter # Bowel Movements 1 - Exam GENERAL DESCRIPTION: An elderly female lying in bed in no distress RESPIRATORY SYSTEM: Unlabored breathing , decreased breath sounds at bases HEART: S1 S2 regular rate and rhythm , ABDOMEN: Soft , no tenderness EXTREMITIES: Swelling to the leg but no redness - Labs CBC & Chem 7: 03/15/25 07:09 03/15/25 07:09 Labs: Abnormal Lab Results - Last 24 Hours (Table) 03/14/25 03/14/25 03/14/25 Range/Units 12:48 12:52 16:16 RBC (4.10-5.20) 10*6/uL Hgb (12.0-15.0) g/dL Hct (37.2-46.3) % MCHC (32.0-37.0) g/dL Plt Count (140-440) 10*3/uL Immature Gran # (0.00-0.04) 10*3/uL Sodium 131 L (137-145) mmol/L Potassium 3.4 L (3.5-5.1) mmol/L Chloride 93 L (98-107) mmol/L BUN 27 H (7-17) mg/dL Glucose 312 H (74-99) mg/dL POC Glucose (mg/dL) 224 H (70-110) mg/dL Calcium 8.1 L (8.4-10.2) mg/dL TIBC (228-460) UG/DL % Saturation (12.00-45.00) Transferrin (204.0-354.0) mg/dL Ferritin (10.0-291.0) ng/mL Alkaline Phosphatase 159 H (38-126) U/L Albumin 2.8 L (3.5-5.0) g/dL Crossmatch See Detail Blood Bank Comment Sent to [facility] A 03/14/25 03/15/25 03/15/25 Range/Units 19:59 06:36 07:09 RBC (4.10-5.20) 10*6/uL Hgb (12.0-15.0) g/dL Hct (37.2-46.3) % MCHC (32.0-37.0) g/dL Plt Count (140-440) 10*3/uL Immature Gran # (0.00-0.04) 10*3/uL Sodium (137-145) mmol/L Potassium (3.5-5.1) mmol/L Chloride (98-107) mmol/L BUN (7-17) mg/dL Glucose (74-99) mg/dL POC Glucose (mg/dL) 153 H 199 H (70-110) mg/dL Calcium (8.4-10.2) mg/dL TIBC 214 L (228-460) UG/DL % Saturation 54.67 H (12.00-45.00) Transferrin 153.0 L (204.0-354.0) mg/dL Ferritin 493.0 H (10.0-291.0) ng/mL Alkaline Phosphatase (38-126) U/L Albumin (3.5-5.0) g/dL Crossmatch Blood Bank Comment 03/15/25 03/15/25 03/15/25 Range/Units 07:09 07:09 11:30 RBC 3.14 L (4.10-5.20) 10*6/uL Hgb 9.4 L D (12.0-15.0) g/dL Hct 29.5 L (37.2-46.3) % MCHC 31.9 L (32.0-37.0) g/dL Plt Count 94 L D (140-440) 10*3/uL Immature Gran # 0.16 H (0.00-0.04) 10*3/uL Sodium 132 L (137-145) mmol/L Potassium (3.5-5.1) mmol/L Chloride (98-107) mmol/L BUN 26 H (7-17) mg/dL Glucose 178 H (74-99) mg/dL POC Glucose (mg/dL) 174 H (70-110) mg/dL Calcium 8.2 L (8.4-10.2) mg/dL TIBC (228-460) UG/DL % Saturation (12.00-45.00) Transferrin (204.0-354.0) mg/dL Ferritin (10.0-291.0) ng/mL Alkaline Phosphatase (38-126) U/L Albumin (3.5-5.0) g/dL Crossmatch Blood Bank Comment Microbiology - Last 24 Hours (Table) 03/13/25 05:50 Blood Culture - Preliminary Blood 03/11/25 12:00 Blood Culture - Preliminary Blood Assessment and Plan (1) Elevated liver enzymes Current Visit: Yes Status: Acute Code(s): R74.8 - ABNORMAL LEVELS OF OTHER SERUM ENZYMES SNOMED Code(s): 875093621 (2) Pressure ulcer of sacral region, stage 2 Current Visit: Yes Status: Acute Code(s): L89.152 - PRESSURE ULCER OF SACRAL REGION, STAGE 2 SNOMED Code(s): 76240624415088 (3) Bacteremia Current Visit: Yes Status: Acute Code(s): R78.81 - BACTEREMIA SNOMED Code(s): 3442824 Plan: 1patient presented hospitalized weakness which is likely multifactorial in this patient who did have hypotension white count is normal but did have a left shift source question abdominal has the patient have elevated liver enzymes though the ultrasound was inconclusive possible left lower lobe pneumonia this patient recently did have COVID-19 pneumonia 2-patient did have a stage II sacral pressure ulcer but no significant cellulitis continue with local wound care as ordered along with air mattress 3-patient did have persistent bacteremia with Enterococcus faecalis questionable endovascular source, 2D echocardiogram did not mention any vegetation, the patient is status post MELISSA with evidence of mitral valve endocarditis 4patient to continue ampicillin and Rocephin for endocarditis blood cultures 03/11/2025 as well as 03/13/2025 so far negative, PICC line has been ordered for outpatient antibiotic therapy Dictation was produced using [employer] dictation software. please excuse any grammatical, word or spelling errors. Time with Patient: Less than 30
[2025-03-16 10:48] LABS: Basophils # (A) 0.03 10*3/uL (0.00-0.10); Basophils % (A) 0.3 %; Eosinophils # (A) 0.08 10*3/uL (0.04-0.35); Eosinophils % (A) 0.9 %; HCT 27.3 % (37.2-46.3); HGB 8.8 g/dL (12.0-15.0); Lymphocytes # (A) 0.77 10*3/uL (0.90-5.00); Lymphocytes % (A) 8.8 %; MCH 30.6 pg (27.0-32.0); MCHC 32.2 g/dL (32.0-37.0); MCV 94.8 fL (80.0-97.0); Mean Platelet Volume 10.5 fL (9.5-12.2); Monocytes # (A) 0.55 10*3/uL (0.20-1.00); Monocytes % (A) 6.3 %; Neutrophils # (A) 7.19 10*3/uL (1.80-7.70); Neutrophils % (A) 82.4 %; RBC 2.88 10*6/uL (4.10-5.20); RDW 16.7 % (11.5-14.5); WBC 8.73 10*3/uL (4.50-10.00)
[2025-03-16 10:58] LABS: Platelet Count 92 10*3/uL (140-440)
--- NOTE | 2025-03-16 11:07 | P.PN ---
Subjective HISTORY OF PRESENT ILLNESS: This is a 80-year-old female patient of Dr. Watson with past medical history of TAVR in 2018 with open aortic valve replacement, MVR and tricuspid valve repair done at [facility] on 05/20/2024, paroxysmal atrial fibrillation, hypertension, dyslipidemia, diabetes mellitus type 2 insulin requiring, hypothyroidism, coronary artery disease with previous stent, history of left pleural effusion status post thoracentesis with removal of 850 cc 10/08/2024. We have been asked to evaluate the patient for CHF. Patient's last office visit with Dr. Watson was 06/24/2020 for. Patient has had multiple hospitalizations [facility] that time including most recently 02/13 - 02/23/2025 at which time she was seen by cardiology. She was hospitalized at that time for COVID-19 and treated for acute on chronic systolic heart failure. At some point, patient's Eliquis was decreased to 2.5 mg twice daily. She has had positive occult blood in the past with anemia and underwent colonoscopy in October with Dr. Hines that found tubular adenoma x 2 without active bleeding. Patient gives history that she came into the hospital because she did not have any energy, no interest in anything and was sleeping a lot. She also complains of shortness of breath with minimal activity, no orthopnea. Patient is poor historian. Blood pressure 121/62, heart rates in the 60s, pulse ox 98% on 6 L nasal cannula. Patient was also on CPAP earlier. Patient has been started on IV Lasix 40 mg every 12 hours. -EKG: Atrial paced rhythm. -Chest x-ray: Persistent left basilar airspace disease atelectasis or pneumonia. Persistent small left pleural effusion. -Gallbladder ultrasound: Gallbladder not visualized. Right kidney not visualize d. -CT head: No acute intracranial process. -Laboratory studies: Hemoglobin 7.9 repeat 7.7, platelet count 39, WBC 5.0. Sodium 122, potassium 4.5, BUN 65 and creatinine improved from 1.46-1.23. Lact ic acid 3.1 repeat 2.0. Troponins 0.087, 0.084, 0.084. Urinalysis negative for infection. Stool for occult blood positive. Acetone negative. Cepheid viral panel not detected. -Home cardiac medications: Eliquis 2.5 mg twice daily, atorvastatin 40 mg at bedtime, Farxiga 10 mg daily, Lasix 40 mg twice daily, losartan 12.5 mg daily, metolazone 2.5 mg daily, metoprolol succinate 50 mg in the morning and 25 mg at bedtime. -Echocardiogram performed 01/30/2025 at [facility] revealed suboptimal study, EF 40 to 45%, severe pulmonary hypertension. -Cardiac PCI performed 01/05/2021 to the mid diagonal 1 and ostial PDA. -Cardiovascular surgery with TAVR 11/04/2018. -Cardiovascular surgery with tissue AVR, tissue MVR, tricuspid valve repair 05/20/2024 at [facility]. 03/10/2025 Patient is more alert clinically. She has a Enterococcus growing in her blood. She has also a decubitus ulcer on her back. She has history of multivalve her surgery and I am concerned about seeding. However she is on aggressive antibiotic therapy mentally she is more alert responsive to questions hemodynamically stable and no overt heart failure at this time. We will continue supportive care and current medical regimen. 03/11/2025 Patient examined this morning at the bedside. Patient currently denies chest pain or pressure. She denies shortness of breath. Vital signs are stable. 03/13/2025 Patient is seen and examined at bedside this a.m. She underwent a MELISSA yesterday which showed evidence of vegetation attached to the mitral plastering towards the atrial side suggestive of endocarditis. bp 113/65 hr 64 bpm 03/15/2025 Patient examined this morning at the bedside. She is currently sitting up in the chair. Patient's daughter is present. Patient is emotional this morning regarding everything going on with her health. Patient is currently wearing her home CPAP. Patient's hemoglobin yesterday was 5.3. She received 2 units RBCs. Repeat hemoglobin today 9.4. 03/16/2025 Patient examined this morning at the bedside. Patient states she is feeling better today. She denies chest pain or pressure. Denies shortness of breath. General surgery has been consulted and is planning for endoscopy on . PHYSICAL EXAM: VITAL SIGNS: Reviewed. GENERAL: Well-developed in no acute distress. NECK: Supple. No JVD or thyromegaly LUNGS: Respirations even and unlabored. Lungs essentially clear to auscultation bilaterally. HEART: Regular rate and rhythm. S1 and S2 heard. EXTREMITIES: Normal range of motion. No clubbing or cyanosis. Peripheral pulses intact. 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, likely source from sacral ulcer stage II Generalized weakness most likely secondary to combination of hyponatremia, acute kidney injury, recent COVID Hyponatremia Acute kidney injury Recent COVID Pancytopenia Rule out sepsis Metabolic encephalopathy Acute on chronic heart failure with EF of 40 to 45% Valvular heart disease status post TAVR status post open aortic valve replacement, mitral valve replacement, tricuspid valve repair in May 2024 Paroxysmal atrial fibrillation, paced rhythm Hypertension Dyslipidemia Diabetes mellitus type 2 insulin requiring Hypothyroidism Coronary artery disease with previous stent to the mid diagonal 1 and ostial PDA Anemia with questionable GI bleed, stool for occult blood positive, status post 2 units RBCs 03/14/2025 PLAN: Anticoagulation has been discontinued during hospitalization secondary to anemia Continue current cardiac medications including Lipitor, Bumex, metoprolol succinate, and Aldactone Daily weights, accurate intake and output, monitoring of kidney function Continue antibiotics per infectious disease General Surgery planning for endoscopy on . Further recommendations pending patient course Nurse practitioner note has been reviewed by physician. Signing provider agrees with the documented findings, assessment, and plan of care documented by [employer] as a scribe. Objective - Vital Signs Vital signs: Vital Signs Temp 97.6 F 03/16/25 03:50 Pulse 64 03/16/25 03:50 Resp 17 03/16/25 03:50 BP 118/67 03/16/25 03:50 Pulse Ox 100 03/16/25 03:50 FiO2 Intake & Output 03/15/25 03/16/25 03/16/25 18:59 06:59 18:59 Intake Total 540 180 Output Total 1100 500 Balance -560 -500 180 Weight 118 kg 121.9 kg Intake: Intake, IV Titration 300 Amount Ampicillin 2,000 mg In 200 Sodium Chloride 0.9% 100 ml @ 200 mls/hr IVPB Q6H LILIYA Rx#:[id number] cefTRIAXone 2 gm In 100 Dextrose 5% in Water 50 ml @ 100 mls/hr IVPB Q12H LILIYA Rx#:[id number] Oral 240 180 Output: Urine 1100 500 Other: Voiding Method Indwelling Catheter Indwelling Catheter # Bowel Movements 1 - Labs CBC & Chem 7: 03/16/25 10:34 03/15/25 07:09 Labs: Abnormal Lab Results - Last 24 Hours (Table) 03/15/25 03/15/25 03/15/25 Range/Units 07:09 11:30 16:33 RBC (4.10-5.20) 10*6/uL Hgb (12.0-15.0) g/dL Hct (37.2-46.3) % Plt Count (140-440) 10*3/uL Immature Gran # (0.00-0.04) 10*3/uL Lymphocytes # (0.90-5.00) 10*3/uL POC Glucose (mg/dL) 174 H 132 H (70-110) mg/dL TIBC 214 L (228-460) UG/DL % Saturation 54.67 H (12.00-45.00) Transferrin 153.0 L (204.0-354.0) mg/dL Ferritin 493.0 H (10.0-291.0) ng/mL 03/15/25 03/16/25 03/16/25 Range/Units 19:45 06:05 10:34 RBC 2.88 L (4.10-5.20) 10*6/uL Hgb 8.8 L (12.0-15.0) g/dL Hct 27.3 L (37.2-46.3) % Plt Count 92 L (140-440) 10*3/uL Immature Gran # 0.11 H (0.00-0.04) 10*3/uL Lymphocytes # 0.77 L (0.90-5.00) 10*3/uL POC Glucose (mg/dL) 133 H 181 H (70-110) mg/dL TIBC (228-460) UG/DL % Saturation (12.00-45.00) Transferrin (204.0-354.0) mg/dL Ferritin (10.0-291.0) ng/mL Microbiology - Last 24 Hours (Table) 03/09/25 05:54 Blood Culture Gram Stain - Final Blood Blood Culture - Final Enterococcus faecalis 03/13/25 05:50 Blood Culture - Preliminary Blood
[2025-03-16 11:08] LABS: ALT 32 U/L (4-34); AST 39 U/L (14-36); African American GFR (CKD) 73 (>60 ml/min/1.73 sqM); Albumin 2.7 g/dL (3.5-5.0); Alkaline Phosphatase 170 U/L (38-126); Anion Gap 9 mmol/L; Blood Urea Nitrogen 20 mg/dL (7-17); Calcium 7.9 mg/dL (8.4-10.2); Carbon Dioxide 29 mmol/L (22-30); Chloride 95 mmol/L (98-107); Glucose 167 mg/dL (74-99); Non-African American GFR(CKD) 64 (>60 ml/min/1.73 sqM); Potassium 3.9 mmol/L (3.5-5.1); Sodium 133 mmol/L (137-145); Total Bilirubin 0.5 mg/dL (0.2-1.3); Total Protein 6.3 g/dL (6.3-8.2)
[2025-03-16 11:23] LABS: Glucose,Whole Blood 182 mg/dL (70-110)
--- NOTE | 2025-03-16 11:39 | P.PN ---
Subjective Patient is seen for follow-up for acute kidney injury. Labs have improved with serum creatinine down to 0.8 Hemoglobin 8.8 today Sodium is 133 No significant complaints. Objective - Vital Signs Vital signs: Vital Signs Temp 97.7 F 03/16/25 08:00 Pulse 65 03/16/25 08:00 Resp 18 03/16/25 08:00 BP 148/65 03/16/25 08:00 Pulse Ox 99 03/16/25 08:00 FiO2 Intake & Output 03/15/25 03/16/25 03/16/25 18:59 06:59 18:59 Intake Total 540 180 Output Total 1100 500 Balance -560 -500 180 Weight 118 kg 121.9 kg Intake: Intake, IV Titration 300 Amount Ampicillin 2,000 mg In 200 Sodium Chloride 0.9% 100 ml @ 200 mls/hr IVPB Q6H [facility] Rx#:[id number] cefTRIAXone 2 gm In 100 Dextrose 5% in Water 50 ml @ 100 mls/hr IVPB Q12H [facility] Rx#:[id number] Oral 240 180 Output: Urine 1100 500 Other: Voiding Method Indwelling Catheter Indwelling Catheter Indwelling Catheter # Bowel Movements 1 - Exam Patient is awake, comfortable, no acute distress Maintained on CPAP Examination of the heart S1 and S2 Examination of the lungs decreased breath sounds at the bases Abdomen is soft obese nontender Examination of lower extremities shows 1+ edema LOIN TRIMMER exam grossly intact - Labs CBC & Chem 7: 03/16/25 10:34 03/16/25 10:34 Labs: Abnormal Lab Results - Last 24 Hours (Table) 03/15/25 03/15/25 03/16/25 Range/Units 16:33 19:45 06:05 RBC (4.10-5.20) 10*6/uL Hgb (12.0-15.0) g/dL Hct (37.2-46.3) % Plt Count (140-440) 10*3/uL Immature Gran # (0.00-0.04) 10*3/uL Lymphocytes # (0.90-5.00) 10*3/uL Sodium (137-145) mmol/L Chloride (98-107) mmol/L BUN (7-17) mg/dL Glucose (74-99) mg/dL POC Glucose (mg/dL) 132 H 133 H 181 H (70-110) mg/dL Calcium (8.4-10.2) mg/dL AST (14-36) U/L Alkaline Phosphatase (38-126) U/L Albumin (3.5-5.0) g/dL 03/16/25 03/16/25 03/16/25 Range/Units 10:34 10:34 11:22 RBC 2.88 L (4.10-5.20) 10*6/uL Hgb 8.8 L (12.0-15.0) g/dL Hct 27.3 L (37.2-46.3) % Plt Count 92 L (140-440) 10*3/uL Immature Gran # 0.11 H (0.00-0.04) 10*3/uL Lymphocytes # 0.77 L (0.90-5.00) 10*3/uL Sodium 133 L (137-145) mmol/L Chloride 95 L (98-107) mmol/L BUN 20 H (7-17) mg/dL Glucose 167 H (74-99) mg/dL POC Glucose (mg/dL) 182 H (70-110) mg/dL Calcium 7.9 L (8.4-10.2) mg/dL AST 39 H (14-36) U/L Alkaline Phosphatase 170 H (38-126) U/L Albumin 2.7 L (3.5-5.0) g/dL Microbiology - Last 24 Hours (Table) 03/09/25 05:54 Blood Culture Gram Stain - Final Blood Blood Culture - Final Enterococcus faecalis 03/13/25 05:50 Blood Culture - Preliminary Blood Assessment and Plan Assessment: 1. Acute kidney injury secondary to ATN secondary to hypotension. Also concern for cardiorenal syndrome. Creatinine 1.46 on admission - 0.8 today. UA fairly benign. 2. Chronic kidney disease stage IIIa with baseline creatinine 1.2-1.3 secondary to diabetic kidney disease. 3. Volume overload. On Lasix. Improved. 4. Hyponatremia, hypervolemic. Also component of hypertonicity from hyperglycemia. Improving. Urine sodium less than 20 and urine osmolality 417. 5. Diabetes mellitus. 6. Anemia. Rule out iron deficiency. Questionable GI bleed. Stool for occult blood positive. Packed RBCs transfusion for hemoglobin of 5.3 on 03/14/2025. 7. Acute on chronic systolic CHF ejection fraction of 40 to 45% with severe pulmonary hypertension, moderate tricuspid regurgitation. 8. Enterococcus bacteremia on antibiotics. 9. Hypokalemia from diuresis. Replaced. Plan: Continue off of IV fluids Continue with Bumex Repeat labs in a.m.
--- NOTE | 2025-03-16 14:06 | P.PN ---
Subjective Progress Note Date: 03/16/25 SURGICAL PROGRESS NOTE CHIEF COMPLAINT: Endocarditis HISTORY OF PRESENT ILLNESS: Surgical service following regards to patient's anemia. Patient has required 2 units of blood during this admission. She reports that she had black stools x 2 episodes yesterday. Vital stable. On CPAP. Hemoglobin is down from 9.4-8.8 PHYSICAL EXAM: VITAL SIGNS: Reviewed. GENERAL: Well-developed in no acute distress. ABDOMEN: Soft. Nondistended. Nontender. NEUROLOGIC: Alert and oriented. Cranial nerves II through XII grossly intact. ASSESSMENT: 1. Anemia with melanotic stools, has required blood transfusion 2. Mitral valve endocarditis PLAN: - Patient scheduled for EGD and colonoscopy on with Dr. Tolbert - Start clear liquid diet in the morning - Start bowel prep in the a.m. - Continue to monitor hemoglobin - Continue to monitor for any signs or symptoms of bleeding - Continue IV Protonix twice a day - Continue to hold anticoagulation Physician Diver Tender note has been reviewed by physician. Signing provider agrees with the documented findings, assessment, and plan of care. Objective - Vital Signs Vital signs: Vital Signs Temp 97.7 F 03/16/25 08:00 Pulse 65 03/16/25 08:00 Resp 18 03/16/25 08:00 BP 148/65 03/16/25 08:00 Pulse Ox 99 03/16/25 08:00 FiO2 Intake & Output 03/15/25 03/16/25 03/16/25 18:59 06:59 18:59 Intake Total 540 180 Output Total 1100 500 Balance -560 -500 180 Weight 118 kg 121.9 kg Intake: Intake, IV Titration 300 Amount Ampicillin 2,000 mg In 200 Sodium Chloride 0.9% 100 ml @ 200 mls/hr IVPB Q6H [facility] Rx#:[id number] cefTRIAXone 2 gm In 100 Dextrose 5% in Water 50 ml @ 100 mls/hr IVPB Q12H [facility] Rx#:[id number] Oral 240 180 Output: Urine 1100 500 Other: Voiding Method Indwelling Catheter Indwelling Catheter Indwelling Catheter # Bowel Movements 1 - Labs CBC & Chem 7: 03/16/25 10:34 03/16/25 10:34 Labs: Abnormal Lab Results - Last 24 Hours (Table) 03/15/25 03/15/25 03/15/25 Range/Units 07:09 16:33 19:45 RBC (4.10-5.20) 10*6/uL Hgb (12.0-15.0) g/dL Hct (37.2-46.3) % Plt Count (140-440) 10*3/uL Immature Gran # (0.00-0.04) 10*3/uL Lymphocytes # (0.90-5.00) 10*3/uL Sodium (137-145) mmol/L Chloride (98-107) mmol/L BUN (7-17) mg/dL Glucose (74-99) mg/dL POC Glucose (mg/dL) 132 H 133 H (70-110) mg/dL Calcium (8.4-10.2) mg/dL AST (14-36) U/L Alkaline Phosphatase (38-126) U/L Albumin (3.5-5.0) g/dL RBC Folate 920 H (280 - 791) ng/mL 03/16/25 03/16/25 03/16/25 Range/Units 06:05 10:34 10:34 RBC 2.88 L (4.10-5.20) 10*6/uL Hgb 8.8 L (12.0-15.0) g/dL Hct 27.3 L (37.2-46.3) % Plt Count 92 L (140-440) 10*3/uL Immature Gran # 0.11 H (0.00-0.04) 10*3/uL Lymphocytes # 0.77 L (0.90-5.00) 10*3/uL Sodium 133 L (137-145) mmol/L Chloride 95 L (98-107) mmol/L BUN 20 H (7-17) mg/dL Glucose 167 H (74-99) mg/dL POC Glucose (mg/dL) 181 H (70-110) mg/dL Calcium 7.9 L (8.4-10.2) mg/dL AST 39 H (14-36) U/L Alkaline Phosphatase 170 H (38-126) U/L Albumin 2.7 L (3.5-5.0) g/dL RBC Folate (280 - 791) ng/mL 03/16/25 Range/Units 11:22 RBC (4.10-5.20) 10*6/uL Hgb (12.0-15.0) g/dL Hct (37.2-46.3) % Plt Count (140-440) 10*3/uL Immature Gran # (0.00-0.04) 10*3/uL Lymphocytes # (0.90-5.00) 10*3/uL Sodium (137-145) mmol/L Chloride (98-107) mmol/L BUN (7-17) mg/dL Glucose (74-99) mg/dL POC Glucose (mg/dL) 182 H (70-110) mg/dL Calcium (8.4-10.2) mg/dL AST (14-36) U/L Alkaline Phosphatase (38-126) U/L Albumin (3.5-5.0) g/dL RBC Folate (280 - 791) ng/mL Microbiology - Last 24 Hours (Table) 03/13/25 05:50 Blood Culture - Preliminary Blood 03/09/25 05:54 Blood Culture Gram Stain - Final Blood Blood Culture - Final Enterococcus faecalis
--- NOTE | 2025-03-16 14:13 | P.PN ---
Subjective Progress Note Date: 03/16/25 80-year-old female with history of mitral valve replacement congestive heart failure EF of around 40 to 45% came in with complaints of generalized weakness. Patient is found to be hyponatremic. Patient is on 6 L of oxygen usually uses 4 to 5 L at home. Patient does have history of obstructive sleep apnea for which patient is on BiPAP at home. Patient had no fever or chills patient does not have any leukocytosis patient does not have any complaints of dysuria suprapubic pain urine is essentially within normal limits chest x-ray showed some nonspecific infiltrate not consistent with pneumonia. Will obtain a procalcitonin level patient's BNP is elevated to 8000 patient's previous BNP was 5000. Patient does have bilateral lower extremity pedal edema. Patient does have stage II decubitus ulcers does not appear to be infected. Patient was started on vancomycin probably for that reason in ER. Patient has minimally elevated troponins. 03/09/2025 Patient is evaluated today in follow up in the intensive care unit. Patient remains on antibiotics in the form of IV Unasyn. Her blood culture did come back positive for Enterococcus faecalis. It was repeated today and ID is following. Labs today reveal a white blood cell count of 6.20, hemoglobin 8.1, sodium 127, BUN of 63 creatinine of 1.26. AST and ALT are significantly improved. 03/10/2025 Patient evaluated in the intensive care unit remains on CPAP and tolerating well. More awake and alert. Repeat blood culture positive for enterococcus. Limited echocardiogram reveals EF 55-60%, mild pulmonary hypertension, mild TR, there is mitral valve and tricuspid valve repair as well as AVR. Technically difficult study. Does not appear to be any vegetation noted. Remains on IV unasyn. white blood cell count 8.40, hgb 7.8, platelet 32, sodium 130, potassium 4.2, BUN 55, creatinine 1.06. 03/11/2025 Patient is evaluated today in follow up; has been moved out of the ICU. Patient currently on oxygen via nasal cannula. Patient continues with persistent bacteremia with enterococcus faecalis and discussed echocardiogram findings with ID and recommendations made for MELISSA. Pt. will be going for the MELISSA on 03/12/[address] Watson. She will need to be NPO after midnight. Patient remains on IV unasyn and IV ceftriaxone. Blood pressure into the 90s this morning and a 500 cc bolus was given. She is tolerating oxygen via nasal cannula and also utilizing the CPAP at the bedside. Patient is more awake alert and oriented at this time. 03/12/2025 Patient is seen in follow-up today currently n.p.o. continues on her CPAP machine scheduled to undergo MELISSA with cardiology following. Multiple consultations following including infectious disease maintained on IV antibiotics and continues to have persistent bacteremia with Enterococcus awaiting MELISSA report. Patient is afebrile with no reports chest pain or worsening shortness of breath. 03/13. Patient seen and examined. Vitals this morning show temperature 99.3, heart rate 63, blood pressure 109/65 03/14. Patient seen and examined. Hemoglobin this morning is 5.3, patient being given 2 units of packed red blood cell. Had an episode of dark stool this morning. FOBT is positive 03/15. Patient seen and examined. Blood work done this morning showed WBC 8.98, hemoglobin 9.4, sodium 132, potassium 4.1. Patient very emotional this morning. Was concerned about her overall health. Explained to her the need for her to be evaluated with surgery for anemia 03/16. Patient seen and examined. Surgery evaluated, planning EGD and colonoscopy on . States breathing remains the same. Denies any chest pain or shortness of breath. REVIEW OF SYSTEMS: CONSTITUTIONAL: No fever, no malaise,. CARDIOVASCULAR: No chest pain, no palpitations, no syncope. PULMONARY: No shortness of breath, no cough, GASTROINTESTINAL: No diarrhea, no nausea, no vomiting, no abdominal pain. NEUROLOGICAL: No headaches, no weakness, PHYSICAL EXAMINATION: GENERAL: The patient is alert and oriented x3, ill looking HEENT: Pupils are round and equally reacting to light. EOMI. No scleral icterus. No conjunctival pallor. Normocephalic, atraumatic. No pharyngeal erythema. No thyromegaly. CARDIOVASCULAR: S1 and S2 present. No murmurs, rubs, or gallops. PULMONARY: Diminished breath sounds at the bases bilaterally, no wheezing or crackles. ABDOMEN: Soft, nontender, nondistended, normoactive bowel sounds. No palpable organomegaly. MUSCULOSKELETAL: No joint swelling or deformity. EXTREMITIES: No cyanosis, clubbing, or pedal edema. NEUROLOGICAL: Gross neurological examination did not reveal any focal deficits. SKIN: No rashes. Assessment and plan - Sepsis and enterococcus bacteremia POA as blood culture collected on admission positive for enterococcus, status post MELISSA which was positive for mitral valve endocarditis Acute blood loss anemia GI bleed - Congestive heart failure chronic systolic function with acute exacerbation. - Hypervolemic hyponatremia, improving - Acute on chronic hypoxic respiratory failure secondary to pulmonary edema. - Type 2 diabetes mellitus uncontrolled with elevated blood sugars - History of atrial fibrillation: Patient is presently rate controlled patient probably has paroxysmal A-fib on Eliquis at home - History of GI bleed - History of pancytopenia follows with hematology outpatient this is because of the slow GI bleed - History of bioprosthetic aortic valve replacement - Sleep apnea on CPAP machine -Transaminitis likely from sepsis improving -Hypothyroidism - Morbid obesity with a BMI of 46.5 Monitor vital signs Monitor CBC Monitor CMP Continue telemetry monitoring MELISSA showing mitral valve endocarditis Continue Unasyn and Rocephin Status post 2 units of packed red blood cells on03/14 Continue Lipitor ID following Nephrology following Surgery following, planning EGD and colonoscopy on Labs and medication were reviewed.. Continue same treatment. Continue with symptomatic treatment. Resume home medication. Monitor labs and vitals. DVT and GI prophylaxis. Further recommendations as per clinical course of the patient Dictation was produced using [employer] dictation software. please excuse any gra mmatical, word or spelling errors. Objective - Vital Signs Vital signs: Vital Signs Temp 97.6 F 03/16/25 03:50 Pulse 64 03/16/25 03:50 Resp 17 03/16/25 03:50 BP 118/67 03/16/25 03:50 Pulse Ox 100 03/16/25 03:50 FiO2 Intake & Output 03/15/25 03/16/25 03/16/25 18:59 06:59 18:59 Intake Total 540 180 Output Total 1100 500 Balance -560 -500 180 Weight 118 kg 121.9 kg Intake: Intake, IV Titration 300 Amount Ampicillin 2,000 mg In 200 Sodium Chloride 0.9% 100 ml @ 200 mls/hr IVPB Q6H [facility] Rx#:[id number] cefTRIAXone 2 gm In 100 Dextrose 5% in Water 50 ml @ 100 mls/hr IVPB Q12H [facility] Rx#:[id number] Oral 240 180 Output: Urine 1100 500 Other: Voiding Method Indwelling Catheter Indwelling Catheter # Bowel Movements 1 - Labs CBC & Chem 7: 03/16/25 10:34 03/16/25 10:34 Labs: Abnormal Lab Results - Last 24 Hours (Table) 03/15/25 03/15/25 03/15/25 Range/Units 07:09 07:09 11:30 Plt Count 94 L D (140-440) 10*3/uL POC Glucose (mg/dL) 174 H (70-110) mg/dL TIBC 214 L (228-460) UG/DL % Saturation 54.67 H (12.00-45.00) Transferrin 153.0 L (204.0-354.0) mg/dL Ferritin 493.0 H (10.0-291.0) ng/mL 03/15/25 03/15/25 03/16/25 Range/Units 16:33 19:45 06:05 Plt Count (140-440) 10*3/uL POC Glucose (mg/dL) 132 H 133 H 181 H (70-110) mg/dL TIBC (228-460) UG/DL % Saturation (12.00-45.00) Transferrin (204.0-354.0) mg/dL Ferritin (10.0-291.0) ng/mL Microbiology - Last 24 Hours (Table) 03/09/25 05:54 Blood Culture Gram Stain - Final Blood Blood Culture - Final Enterococcus faecalis 03/13/25 05:50 Blood Culture - Preliminary Blood
--- NOTE | 2025-03-16 14:58 | P.PN ---
Subjective Progress Note Date: 03/16/25 Principal diagnosis: Reason for follow-up is bacteremia Patient is a 80-year-old female with multiple comorbidities including type 2 diabetes mellitus hypertension hyperlipidemia atrial fibrillation coronary artery disease did have TAVR in 2018 subsequently open aortic valve replacement MVR and tricuspid valve repair done at [facility] on 05/20/2024 recently admitted to hospital and treated for COVID-19 pneumonia now being admitted to the hospital generalized weakness and did have a positive blood culture with Enterococcus On today's evaluation that is 03/16/2025,the patient denies any fever or any chills, patient is breathing comfortably on 6 L CPAP, the patient denies chest pain shortness of breath and no significant cough, patient denies abdominal nirav n, no nausea vomiting or diarrhea. Patient white count is 8.73, creatinine 0.87 blood culture repeat has been negative Objective - Vital Signs Vital signs: Vital Signs Temp 97.7 F 03/16/25 08:00 Pulse 65 03/16/25 08:00 Resp 18 03/16/25 08:00 BP 148/65 03/16/25 08:00 Pulse Ox 99 03/16/25 08:00 FiO2 Intake & Output 03/15/25 03/16/25 03/16/25 18:59 06:59 18:59 Intake Total 540 180 Output Total 1100 500 Balance -560 -500 180 Weight 118 kg 121.9 kg Intake: Intake, IV Titration 300 Amount Ampicillin 2,000 mg In 200 Sodium Chloride 0.9% 100 ml @ 200 mls/hr IVPB Q6H [facility] Rx#:[id number] cefTRIAXone 2 gm In 100 Dextrose 5% in Water 50 ml @ 100 mls/hr IVPB Q12H [facility] Rx#:[id number] Oral 240 180 Output: Urine 1100 500 Other: Voiding Method Indwelling Catheter Indwelling Catheter Indwelling Catheter # Bowel Movements 1 - Exam GENERAL DESCRIPTION: An elderly female lying in bed in no distress RESPIRATORY SYSTEM: Unlabored breathing , decreased breath sounds at bases HEART: S1 S2 regular rate and rhythm , ABDOMEN: Soft , no tenderness EXTREMITIES: Swelling to the leg but no redness - Labs CBC & Chem 7: 03/16/25 10:34 03/16/25 10:34 Labs: Abnormal Lab Results - Last 24 Hours (Table) 03/15/25 03/15/25 03/16/25 Range/Units 16:33 19:45 06:05 RBC (4.10-5.20) 10*6/uL Hgb (12.0-15.0) g/dL Hct (37.2-46.3) % Plt Count (140-440) 10*3/uL Immature Gran # (0.00-0.04) 10*3/uL Lymphocytes # (0.90-5.00) 10*3/uL Sodium (137-145) mmol/L Chloride (98-107) mmol/L BUN (7-17) mg/dL Glucose (74-99) mg/dL POC Glucose (mg/dL) 132 H 133 H 181 H (70-110) mg/dL Calcium (8.4-10.2) mg/dL AST (14-36) U/L Alkaline Phosphatase (38-126) U/L Albumin (3.5-5.0) g/dL 03/16/25 03/16/25 03/16/25 Range/Units 10:34 10:34 11:22 RBC 2.88 L (4.10-5.20) 10*6/uL Hgb 8.8 L (12.0-15.0) g/dL Hct 27.3 L (37.2-46.3) % Plt Count 92 L (140-440) 10*3/uL Immature Gran # 0.11 H (0.00-0.04) 10*3/uL Lymphocytes # 0.77 L (0.90-5.00) 10*3/uL Sodium 133 L (137-145) mmol/L Chloride 95 L (98-107) mmol/L BUN 20 H (7-17) mg/dL Glucose 167 H (74-99) mg/dL POC Glucose (mg/dL) 182 H (70-110) mg/dL Calcium 7.9 L (8.4-10.2) mg/dL AST 39 H (14-36) U/L Alkaline Phosphatase 170 H (38-126) U/L Albumin 2.7 L (3.5-5.0) g/dL Microbiology - Last 24 Hours (Table) 03/09/25 05:54 Blood Culture Gram Stain - Final Blood Blood Culture - Final Enterococcus faecalis 03/13/25 05:50 Blood Culture - Preliminary Blood Assessment and Plan (1) Elevated liver enzymes Current Visit: Yes Status: Acute Code(s): R74.8 - ABNORMAL LEVELS OF OTHER SERUM ENZYMES SNOMED Code(s): 033447099 (2) Pressure ulcer of sacral region, stage 2 Current Visit: Yes Status: Acute Code(s): L89.152 - PRESSURE ULCER OF SACRAL REGION, STAGE 2 SNOMED Code(s): 18815125511403 (3) Bacteremia Current Visit: Yes Status: Acute Code(s): R78.81 - BACTEREMIA SNOMED Code(s): 8487583 Plan: 1patient presented hospitalized weakness which is likely multifactorial in this patient who did have hypotension white count is normal but did have a left shift source question abdominal has the patient have elevated liver enzymes though the ultrasound was inconclusive possible left lower lobe pneumonia this patient recently did have COVID-19 pneumonia 2-patient did have a stage II sacral pressure ulcer but no significant cellulitis continue with local wound care as ordered along with air mattress 3-patient did have persistent bacteremia with Enterococcus faecalis questionable endovascular source, 2D echocardiogram did not mention any vegetation, the patient is status post MELISSA with evidence of mitral valve endocarditis 4patient currently being treated with ampicillin and Rocephin awaiting stabilization of her other condition before transfer to the rehab for completion of her antibiotic therapy Dictation was produced using [employer] dictation software. please excuse any grammatical, word or spelling errors. Time with Patient: Less than 30
[2025-03-16 16:25] LABS: Glucose,Whole Blood 281 mg/dL (70-110)
[2025-03-16 19:55] LABS: Glucose,Whole Blood 255 mg/dL (70-110)
[2025-03-17 06:03] LABS: Glucose,Whole Blood 109 mg/dL (70-110)
[2025-03-17 07:53] LABS: Basophils # (A) 0.04 10*3/uL (0.00-0.10); Basophils % (A) 0.5 %; Eosinophils # (A) 0.06 10*3/uL (0.04-0.35); Eosinophils % (A) 0.7 %; HCT 29.2 % (37.2-46.3); HGB 9.2 g/dL (12.0-15.0); Lymphocytes # (A) 0.79 10*3/uL (0.90-5.00); Lymphocytes % (A) 9.3 %; MCH 30.5 pg (27.0-32.0); MCHC 31.5 g/dL (32.0-37.0); MCV 96.7 fL (80.0-97.0); Mean Platelet Volume 13.1 fL (9.5-12.2); Monocytes # (A) 0.59 10*3/uL (0.20-1.00); Neutrophils # (A) 6.89 10*3/uL (1.80-7.70); Neutrophils % (A) 81.6 %; RBC 3.02 10*6/uL (4.10-5.20); RDW 16.7 % (11.5-14.5); WBC 8.45 10*3/uL (4.50-10.00)
[2025-03-17 08:02] LABS: Platelet Count 84 10*3/uL (140-440)
[2025-03-17 08:18] LABS: ALT 38 U/L (4-34); African American GFR (CKD) 76 (>60 ml/min/1.73 sqM); Albumin 2.8 g/dL (3.5-5.0); Anion Gap 3 mmol/L; Blood Urea Nitrogen 18 mg/dL (7-17); Calcium 7.7 mg/dL (8.4-10.2); Carbon Dioxide 32 mmol/L (22-30); Chloride 97 mmol/L (98-107); Glucose 92 mg/dL (74-99); Non-African American GFR(CKD) 66 (>60 ml/min/1.73 sqM); Sodium 132 mmol/L (137-145); Total Bilirubin 0.7 mg/dL (0.2-1.3); Total Protein 6.6 g/dL (6.3-8.2)
[2025-03-17 08:22] LABS: Potassium 4.4 mmol/L (3.5-5.1)
[2025-03-17 08:23] LABS: AST 55 U/L (14-36); Alkaline Phosphatase 188 U/L (38-126)
[2025-03-17] MEDS: PEG 3350 (236 GM/BTL) + LYTES 4,000 ML BOTTLE PO ONE (09:20)
[2025-03-17 11:22] LABS: Glucose,Whole Blood 122 mg/dL (70-110)
--- NOTE | 2025-03-17 11:41 | P.PN ---
Subjective HISTORY OF PRESENT ILLNESS: This is a 80-year-old female patient of Dr. 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 We have been asked to evaluate the patient for CHF. Patient's last office visit with Dr. Watson was 06/24/2020 for. Patient has had multiple hospitalizations [facility] that time including most recently 02/13 - 02/23/2025 at which time she was seen by cardiology. She was hospitalized at that time for COVID-19 and treated for acute on chronic systolic heart failure. At some point, patient's Eliquis was decreased to 2.5 mg twice daily. She has had positive occult blood in the past with anemia and underwent colonoscopy in October with Dr. Hines that found tubular adenoma x 2 without active bleeding. Patient gives history that she came into the hospital because she did not have any energy, no interest in anything and was sleeping a lot. She also complains of shortness of breath with minimal activity, no orthopnea. Patient is poor historian. Blood pressure 121/62, heart rates in the 60s, pulse ox 98% on 6 L nasal cannula. Patient was also on CPAP earlier. Patient has been started on IV Lasix 40 mg every 12 hours. -EKG: Atrial paced rhythm. -Chest x-ray: Persistent left basilar airspace disease atelectasis or pneumonia. Persistent small left pleural effusion. -Gallbladder ultrasound: Gallbladder not visualized. Right kidney not visualize d. -CT head: No acute intracranial process. -Laboratory studies: Hemoglobin 7.9 repeat 7.7, platelet count 39, WBC 5.0. Sodium 122, potassium 4.5, BUN 65 and creatinine improved from 1.46-1.23. Lact ic acid 3.1 repeat 2.0. Troponins 0.087, 0.084, 0.084. Urinalysis negative for infection. Stool for occult blood positive. Acetone negative. Cepheid viral panel not detected. -Home cardiac medications: Eliquis 2.5 mg twice daily, atorvastatin 40 mg at bedtime, Farxiga 10 mg daily, Lasix 40 mg twice daily, losartan 12.5 mg daily, metolazone 2.5 mg daily, metoprolol succinate 50 mg in the morning and 25 mg at bedtime. -Echocardiogram performed 01/30/2025 at [facility] revealed suboptimal study, EF 40 to 45%, severe pulmonary hypertension. -Cardiac PCI performed 01/05/2021 to the mid diagonal 1 and ostial PDA. -Cardiovascular surgery with TAVR 11/04/2018. -Cardiovascular surgery with tissue AVR, tissue MVR, tricuspid valve repair 05/20/2024 at [facility]. 03/10/2025 Patient is more alert clinically. She has a Enterococcus growing in her blood. She has also a decubitus ulcer on her back. She has history of multivalve her surgery and I am concerned about seeding. However she is on aggressive antibiotic therapy mentally she is more alert responsive to questions hemodynamically stable and no overt heart failure at this time. We will continue supportive care and current medical regimen. 03/11/2025 Patient examined this morning at the bedside. Patient currently denies chest pain or pressure. She denies shortness of breath. Vital signs are stable. 03/13/2025 Patient is seen and examined at bedside this a.m. She underwent a MELISSA yesterday which showed evidence of vegetation attached to the mitral plastering towards the atrial side suggestive of endocarditis. bp 113/65 hr 64 bpm 03/15/2025 Patient examined this morning at the bedside. She is currently sitting up in the chair. Patient's daughter is present. Patient is emotional this morning regarding everything going on with her health. Patient is currently wearing her home CPAP. Patient's hemoglobin yesterday was 5.3. She received 2 units RBCs. Repeat hemoglobin today 9.4. 03/16/2025 Patient examined this morning at the bedside. Patient states she is feeling better today. She denies chest pain or pressure. Denies shortness of breath. General surgery has been consulted and is planning for endoscopy on . 03/17/2025 Patient examined this morning at the bedside. Patient currently denies chest p ain or pressure. She denies shortness of breath. Patient is currently undergoing bowel prep for endoscopy tomorrow. Hemoglobin 9.2. PHYSICAL EXAM: VITAL SIGNS: Reviewed. GENERAL: Well-developed in no acute distress. NECK: Supple. No JVD or thyromegaly LUNGS: Respirations even and unlabored. Lungs essentially clear to auscultation bilaterally. HEART: Regular rate and rhythm. S1 and S2 heard. EXTREMITIES: Normal range of motion. No clubbing or cyanosis. Peripheral pulses intact. 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, likely source from sacral ulcer stage II Generalized weakness most likely secondary to combination of hyponatremia, acute kidney injury, recent COVID Hyponatremia Acute kidney injury Recent COVID Pancytopenia Rule out sepsis Metabolic encephalopathy Acute on chronic heart failure with EF of 40 to 45% Valvular heart disease status post TAVR status post open aortic valve replacement, mitral valve replacement, tricuspid valve repair in May 2024 Paroxysmal atrial fibrillation, paced rhythm Hypertension Dyslipidemia Diabetes mellitus type 2 insulin requiring Hypothyroidism Coronary artery disease with previous stent to the mid diagonal 1 and ostial PDA Anemia with questionable GI bleed, stool for occult blood positive, status post 2 units RBCs 03/14/2025 PLAN: Anticoagulation has been discontinued during hospitalization secondary to anemia Continue current cardiac medications including Lipitor, Bumex, metoprolol succinate, and Aldactone Daily weights, accurate intake and output, monitoring of kidney function Continue antibiotics per infectious disease General Surgery planning for endoscopy on . Further recommendations pending patient course Nurse practitioner note has been reviewed by physician. Signing provider agrees with the documented findings, assessment, and plan of care documented by [employer] as a scribe. Objective - Vital Signs Vital signs: Vital Signs Temp 97.7 F 03/17/25 08:00 Pulse 67 03/17/25 08:00 Resp 16 03/17/25 08:00 BP 136/64 03/17/25 08:00 Pulse Ox 100 03/17/25 08:00 FiO2 Intake & Output 03/16/25 03/17/25 03/17/25 18:59 06:59 18:59 Intake Total 920 30 120 Output Total 775 Balance 920 -745 120 Weight 119.9 kg Intake: IV 30 Invasive Line 4 10 Invasive Line 5 20 Intake, IV Titration 500 Amount Ampicillin 2,000 mg In 200 Sodium Chloride 0.9% 100 ml @ 200 mls/hr IVPB Q6H [facility] Rx#:[id number] Sodium Chloride 0.9% 1, 200 000 ml @ 20 mls/hr IV . Q24H [facility] Rx#:[id number] cefTRIAXone 2 gm In 100 Dextrose 5% in Water 50 ml @ 100 mls/hr IVPB Q12H [facility] Rx#:[id number] Oral 420 120 Output: Urine 775 Other: Voiding Method Indwelling Catheter Indwelling Catheter # Bowel Movements 0 - Labs CBC & Chem 7: 03/17/25 06:48 03/17/25 06:48 Labs: Abnormal Lab Results - Last 24 Hours (Table) 03/15/25 03/16/25 03/16/25 Range/Units 07:09 10:34 10:34 RBC 2.88 L (4.10-5.20) 10*6/uL Hgb 8.8 L (12.0-15.0) g/dL Hct 27.3 L (37.2-46.3) % MCHC (32.0-37.0) g/dL Plt Count 92 L (140-440) 10*3/uL MPV (9.5-12.2) fL Immature Gran # 0.11 H (0.00-0.04) 10*3/uL Lymphocytes # 0.77 L (0.90-5.00) 10*3/uL Sodium 133 L (137-145) mmol/L Chloride 95 L (98-107) mmol/L Carbon Dioxide (22-30) mmol/L BUN 20 H (7-17) mg/dL Glucose 167 H (74-99) mg/dL POC Glucose (mg/dL) (70-110) mg/dL Calcium 7.9 L (8.4-10.2) mg/dL AST 39 H (14-36) U/L ALT (4-34) U/L Alkaline Phosphatase 170 H (38-126) U/L Albumin 2.7 L (3.5-5.0) g/dL RBC Folate 920 H (280 - 791) ng/mL 03/16/25 03/16/25 03/16/25 Range/Units 11:22 16:24 19:53 RBC (4.10-5.20) 10*6/uL Hgb (12.0-15.0) g/dL Hct (37.2-46.3) % MCHC (32.0-37.0) g/dL Plt Count (140-440) 10*3/uL MPV (9.5-12.2) fL Immature Gran # (0.00-0.04) 10*3/uL Lymphocytes # (0.90-5.00) 10*3/uL Sodium (137-145) mmol/L Chloride (98-107) mmol/L Carbon Dioxide (22-30) mmol/L BUN (7-17) mg/dL Glucose (74-99) mg/dL POC Glucose (mg/dL) 182 H 281 H 255 H (70-110) mg/dL Calcium (8.4-10.2) mg/dL AST (14-36) U/L ALT (4-34) U/L Alkaline Phosphatase (38-126) U/L Albumin (3.5-5.0) g/dL RBC Folate (280 - 791) ng/mL 03/17/25 03/17/25 Range/Units 06:48 06:48 RBC 3.02 L (4.10-5.20) 10*6/uL Hgb 9.2 L (12.0-15.0) g/dL Hct 29.2 L (37.2-46.3) % MCHC 31.5 L (32.0-37.0) g/dL Plt Count 84 L (140-440) 10*3/uL MPV 13.1 H (9.5-12.2) fL Immature Gran # 0.08 H (0.00-0.04) 10*3/uL Lymphocytes # 0.79 L (0.90-5.00) 10*3/uL Sodium 132 L (137-145) mmol/L Chloride 97 L (98-107) mmol/L Carbon Dioxide 32 H (22-30) mmol/L BUN 18 H (7-17) mg/dL Glucose (74-99) mg/dL POC Glucose (mg/dL) (70-110) mg/dL Calcium 7.7 L (8.4-10.2) mg/dL AST 55 H (14-36) U/L ALT 38 H (4-34) U/L Alkaline Phosphatase 188 H (38-126) U/L Albumin 2.8 L (3.5-5.0) g/dL RBC Folate (280 - 791) ng/mL Microbiology - Last 24 Hours (Table) 03/11/25 12:00 Blood Culture - Final Blood 03/13/25 05:50 Blood Culture - Preliminary Blood
[2025-03-17] MEDS: FUROSEMIDE 10 MG/ML 2 ML VIAL IV ONE (13:02)
--- NOTE | 2025-03-17 13:37 | P.PN ---
Subjective Progress Note Date: 03/17/25 SURGICAL PROGRESS NOTE CHIEF COMPLAINT: Endocarditis HISTORY OF PRESENT ILLNESS: Surgical service following regards to patient's anemia. Patient has required 2 units of blood during this admission. She had been having black stools. Hemoglobin did go up from 8.8-9.2. She is on CPAP. Patient seen and examined with Dr. Tolbert PHYSICAL EXAM: VITAL SIGNS: Reviewed. GENERAL: Well-developed in no acute distress. ABDOMEN: Soft. Nondistended. Nontender. NEUROLOGIC: Alert and oriented. Cranial nerves II through XII grossly intact. ASSESSMENT: 1. Anemia with melanotic stools, has required blood transfusion 2. Mitral valve endocarditis PLAN: - Patient scheduled for EGD and colonoscopy tomorrow with Dr. Tolbert - Start GoLytely bowel prep - Clear liquid diet today - N.p.o. after midnight - Continue to monitor hemoglobin - Continue to monitor for any signs or symptoms of bleeding - Continue IV Protonix twice a day - Continue to hold anticoagulation - Lasix 10 mg IV x 1 for fluid overload. Chest x-ray from 03/15/2025 had reported mild ongoing CHF with pulmonary vascular congestion Physician [employer] Win[employer] note has been reviewed by physician. Signing provider agrees with the documented findings, assessment, and plan of care. Objective - Vital Signs Vital signs: Vital Signs Temp 97.7 F 03/17/25 08:00 Pulse 60 03/17/25 12:00 Resp 16 03/17/25 12:00 BP 121/53 03/17/25 12:00 Pulse Ox 99 03/17/25 12:00 FiO2 Intake & Output 03/16/25 03/17/25 03/17/25 18:59 06:59 18:59 Intake Total 920 30 140 Output Total 775 1430 Balance 920 -745 -1290 Weight 119.9 kg Intake: IV 30 20 Invasive Line 4 10 10 Invasive Line 5 20 10 Intake, IV Titration 500 Amount Ampicillin 2,000 mg In 200 Sodium Chloride 0.9% 100 ml @ 200 mls/hr IVPB Q6H [facility] Rx#:[id number] Sodium Chloride 0.9% 1, 200 000 ml @ 20 mls/hr IV . Q24H [facility] Rx#:[id number] cefTRIAXone 2 gm In 100 Dextrose 5% in Water 50 ml @ 100 mls/hr IVPB Q12H [facility] Rx#:[id number] Oral 420 120 Output: Urine 775 1430 Other: Voiding Method Indwelling Catheter Indwelling Catheter Indwelling Catheter # Bowel Movements 0 - Labs CBC & Chem 7: 03/17/25 06:48 03/17/25 06:48 Labs: Abnormal Lab Results - Last 24 Hours (Table) 03/15/25 03/16/25 03/16/25 Range/Units 07:09 16:24 19:53 RBC (4.10-5.20) 10*6/uL Hgb (12.0-15.0) g/dL Hct (37.2-46.3) % MCHC (32.0-37.0) g/dL Plt Count (140-440) 10*3/uL MPV (9.5-12.2) fL Immature Gran # (0.00-0.04) 10*3/uL Lymphocytes # (0.90-5.00) 10*3/uL Sodium (137-145) mmol/L Chloride (98-107) mmol/L Carbon Dioxide (22-30) mmol/L BUN (7-17) mg/dL POC Glucose (mg/dL) 281 H 255 H (70-110) mg/dL Calcium (8.4-10.2) mg/dL AST (14-36) U/L ALT (4-34) U/L Alkaline Phosphatase (38-126) U/L Albumin (3.5-5.0) g/dL RBC Folate 920 H (280 - 791) ng/mL 03/17/25 03/17/25 03/17/25 Range/Units 06:48 06:48 11:21 RBC 3.02 L (4.10-5.20) 10*6/uL Hgb 9.2 L (12.0-15.0) g/dL Hct 29.2 L (37.2-46.3) % MCHC 31.5 L (32.0-37.0) g/dL Plt Count 84 L (140-440) 10*3/uL MPV 13.1 H (9.5-12.2) fL Immature Gran # 0.08 H (0.00-0.04) 10*3/uL Lymphocytes # 0.79 L (0.90-5.00) 10*3/uL Sodium 132 L (137-145) mmol/L Chloride 97 L (98-107) mmol/L Carbon Dioxide 32 H (22-30) mmol/L BUN 18 H (7-17) mg/dL POC Glucose (mg/dL) 122 H (70-110) mg/dL Calcium 7.7 L (8.4-10.2) mg/dL AST 55 H (14-36) U/L ALT 38 H (4-34) U/L Alkaline Phosphatase 188 H (38-126) U/L Albumin 2.8 L (3.5-5.0) g/dL RBC Folate (280 - 791) ng/mL Microbiology - Last 24 Hours (Table) 03/11/25 12:00 Blood Culture - Final Blood 03/13/25 05:50 Blood Culture - Preliminary Blood
--- NOTE | 2025-03-17 14:52 | P.PN ---
Subjective Progress Note Date: 03/17/25 80-year-old female with history of mitral valve replacement congestive heart failure EF of around 40 to 45% came in with complaints of generalized weakness. Patient is found to be hyponatremic. Patient is on 6 L of oxygen usually uses 4 to 5 L at home. Patient does have history of obstructive sleep apnea for which patient is on BiPAP at home. Patient had no fever or chills patient does not have any leukocytosis patient does not have any complaints of dysuria suprapubic pain urine is essentially within normal limits chest x-ray showed some nonspecific infiltrate not consistent with pneumonia. Will obtain a procalcitonin level patient's BNP is elevated to 8000 patient's previous BNP was 5000. Patient does have bilateral lower extremity pedal edema. Patient does have stage II decubitus ulcers does not appear to be infected. Patient was started on vancomycin probably for that reason in ER. Patient has minimally elevated troponins. 03/09/2025 Patient is evaluated today in follow up in the intensive care unit. Patient remains on antibiotics in the form of IV Unasyn. Her blood culture did come back positive for Enterococcus faecalis. It was repeated today and ID is following. Labs today reveal a white blood cell count of 6.20, hemoglobin 8.1, sodium 127, BUN of 63 creatinine of 1.26. AST and ALT are significantly improved. 03/10/2025 Patient evaluated in the intensive care unit remains on CPAP and tolerating well. More awake and alert. Repeat blood culture positive for enterococcus. Limited echocardiogram reveals EF 55-60%, mild pulmonary hypertension, mild TR, there is mitral valve and tricuspid valve repair as well as AVR. Technically difficult study. Does not appear to be any vegetation noted. Remains on IV unasyn. white blood cell count 8.40, hgb 7.8, platelet 32, sodium 130, potassium 4.2, BUN 55, creatinine 1.06. 03/11/2025 Patient is evaluated today in follow up; has been moved out of the ICU. Patient currently on oxygen via nasal cannula. Patient continues with persistent bacteremia with enterococcus faecalis and discussed echocardiogram findings with ID and recommendations made for MELISSA. Pt. will be going for the MELISSA on 03/12/[address] Watson. She will need to be NPO after midnight. Patient remains on IV unasyn and IV ceftriaxone. Blood pressure into the 90s this morning and a 500 cc bolus was given. She is tolerating oxygen via nasal cannula and also utilizing the CPAP at the bedside. Patient is more awake alert and oriented at this time. 03/12/2025 Patient is seen in follow-up today currently n.p.o. continues on her CPAP machine scheduled to undergo MELISSA with cardiology following. Multiple consultations following including infectious disease maintained on IV antibiotics and continues to have persistent bacteremia with Enterococcus awaiting MELISSA report. Patient is afebrile with no reports chest pain or worsening shortness of breath. 03/13. Patient seen and examined. Vitals this morning show temperature 99.3, heart rate 63, blood pressure 109/65 03/14. Patient seen and examined. Hemoglobin this morning is 5.3, patient being given 2 units of packed red blood cell. Had an episode of dark stool this morning. FOBT is positive 03/15. Patient seen and examined. Blood work done this morning showed WBC 8.98, hemoglobin 9.4, sodium 132, potassium 4.1. Patient very emotional this morning. Was concerned about her overall health. Explained to her the need for her to be evaluated with surgery for anemia 03/16. Patient seen and examined. Surgery evaluated, planning EGD and colonoscopy on . States breathing remains the same. Denies any chest pain or shortness of breath. 03/17/2025 Patient evaluated in follow-up on the medical floor. Patient is currently undergoing bowel prep she will be going for EGD colonoscopy tomorrow. She states that she is still having dark bowel movements. Patient continues on IV Unasyn and IV Rocephin for the Enterococcus in the blood. MELISSA did reveal vegetation on the mitral valve. Patient has received PICC line for discharge antibiotics. Pending insurance auth for discharge to [facility] REVIEW OF SYSTEMS: CONSTITUTIONAL: No fever, no malaise,. CARDIOVASCULAR: No chest pain, no palpitations, no syncope. PULMONARY: No shortness of breath, no cough, GASTROINTESTINAL: No diarrhea, no nausea, no vomiting, no abdominal pain. NEUROLOGICAL: No headaches, no weakness, PHYSICAL EXAMINATION: GENERAL: The patient is alert and oriented x3, ill looking HEENT: Pupils are round and equally reacting to light. EOMI. No scleral icterus. No conjunctival pallor. Normocephalic, atraumatic. No pharyngeal erythema. No thyromegaly. CARDIOVASCULAR: S1 and S2 present. No murmurs, rubs, or gallops. PULMONARY: Diminished breath sounds at the bases bilaterally, no wheezing or crackles. ABDOMEN: Soft, nontender, nondistended, normoactive bowel sounds. No palpable organomegaly. MUSCULOSKELETAL: No joint swelling or deformity. EXTREMITIES: No cyanosis, clubbing, or pedal edema. NEUROLOGICAL: Gross neurological examination did not reveal any focal deficits. SKIN: No rashes. Assessment and plan - Sepsis and enterococcus bacteremia POA as blood culture collected on admission positive for enterococcus, status post MELISSA which was positive for mitral valve endocarditis -Acute blood loss anemia -GI bleed - Congestive heart failure chronic systolic function with acute exacerbation. - Hypervolemic hyponatremia, improving - Acute on chronic hypoxic respiratory failure secondary to pulmonary edema. - Type 2 diabetes mellitus uncontrolled with elevated blood sugars - History of atrial fibrillation: Patient is presently rate controlled patient probably has paroxysmal A-fib on Eliquis at home - History of GI bleed - History of pancytopenia follows with hematology outpatient this is because of the slow GI bleed - History of bioprosthetic aortic valve replacement - Sleep apnea on CPAP machine -Transaminitis likely from sepsis improving -Hypothyroidism - Morbid obesity with a BMI of 46.5 Full Code Plan Monitor vital signs Monitor CBC Monitor CMP Continue telemetry monitoring MELISSA showing mitral valve endocarditis Continue Unasyn and Rocephin; PICC line in place pending final antibiotic recommendations Status post 2 units of packed red blood cells on03/14 Continue Lipitor ID following Nephrology following Surgery following, planning EGD and colonoscopy on and patient has started bowel prep Plans for [facility] on discharge pending insurance authorization Dictation was produced using [employer] dictation software. please excuse any grammatical, word or spelling errors. The impression and plan of care has been dictated by Leti Robertson, Nurse Practitioner as directed. Dr. Stefan MD I have performed a history and physical examination and medical decision making of this patient, discussed the same with the dictator, and agree with the dictators assessment and plan as written, documented as a scribe. Based on total visit time, I have performed more than 50% of this visit. Objective - Vital Signs Vital signs: Vital Signs Temp 97.7 F 03/17/25 08:00 Pulse 67 03/17/25 08:00 Resp 16 03/17/25 08:00 BP 136/64 03/17/25 08:00 Pulse Ox 100 03/17/25 08:00 FiO2 Intake & Output 03/16/25 03/17/25 03/17/25 18:59 06:59 18:59 Intake Total 920 30 120 Output Total 775 Balance 920 -745 120 Weight 119.9 kg Intake: IV 30 Invasive Line 4 10 Invasive Line 5 20 Intake, IV Titration 500 Amount Ampicillin 2,000 mg In 200 Sodium Chloride 0.9% 100 ml @ 200 mls/hr IVPB Q6H [facility] Rx#:[id number] Sodium Chloride 0.9% 1, 200 000 ml @ 20 mls/hr IV . Q24H [facility] Rx#:[id number] cefTRIAXone 2 gm In 100 Dextrose 5% in Water 50 ml @ 100 mls/hr IVPB Q12H [facility] Rx#:[id number] Oral 420 120 Output: Urine 775 Other: Voiding Method Indwelling Catheter Indwelling Catheter # Bowel Movements 0 - Labs CBC & Chem 7: 03/17/25 06:48 03/17/25 06:48 Labs: Abnormal Lab Results - Last 24 Hours (Table) 03/15/25 03/16/25 03/16/25 Range/Units 07:09 10:34 10:34 RBC 2.88 L (4.10-5.20) 10*6/uL Hgb 8.8 L (12.0-15.0) g/dL Hct 27.3 L (37.2-46.3) % MCHC (32.0-37.0) g/dL Plt Count 92 L (140-440) 10*3/uL MPV (9.5-12.2) fL Immature Gran # 0.11 H (0.00-0.04) 10*3/uL Lymphocytes # 0.77 L (0.90-5.00) 10*3/uL Sodium 133 L (137-145) mmol/L Chloride 95 L (98-107) mmol/L Carbon Dioxide (22-30) mmol/L BUN 20 H (7-17) mg/dL Glucose 167 H (74-99) mg/dL POC Glucose (mg/dL) (70-110) mg/dL Calcium 7.9 L (8.4-10.2) mg/dL AST 39 H (14-36) U/L ALT (4-34) U/L Alkaline Phosphatase 170 H (38-126) U/L Albumin 2.7 L (3.5-5.0) g/dL RBC Folate 920 H (280 - 791) ng/mL 03/16/25 03/16/25 03/16/25 Range/Units 11:22 16:24 19:53 RBC (4.10-5.20) 10*6/uL Hgb (12.0-15.0) g/dL Hct (37.2-46.3) % MCHC (32.0-37.0) g/dL Plt Count (140-440) 10*3/uL MPV (9.5-12.2) fL Immature Gran # (0.00-0.04) 10*3/uL Lymphocytes # (0.90-5.00) 10*3/uL Sodium (137-145) mmol/L Chloride (98-107) mmol/L Carbon Dioxide (22-30) mmol/L BUN (7-17) mg/dL Glucose (74-99) mg/dL POC Glucose (mg/dL) 182 H 281 H 255 H (70-110) mg/dL Calcium (8.4-10.2) mg/dL AST (14-36) U/L ALT (4-34) U/L Alkaline Phosphatase (38-126) U/L Albumin (3.5-5.0) g/dL RBC Folate (280 - 791) ng/mL 03/17/25 03/17/25 Range/Units 06:48 06:48 RBC 3.02 L (4.10-5.20) 10*6/uL Hgb 9.2 L (12.0-15.0) g/dL Hct 29.2 L (37.2-46.3) % MCHC 31.5 L (32.0-37.0) g/dL Plt Count 84 L (140-440) 10*3/uL MPV 13.1 H (9.5-12.2) fL Immature Gran # 0.08 H (0.00-0.04) 10*3/uL Lymphocytes # 0.79 L (0.90-5.00) 10*3/uL Sodium 132 L (137-145) mmol/L Chloride 97 L (98-107) mmol/L Carbon Dioxide 32 H (22-30) mmol/L BUN 18 H (7-17) mg/dL Glucose (74-99) mg/dL POC Glucose (mg/dL) (70-110) mg/dL Calcium 7.7 L (8.4-10.2) mg/dL AST 55 H (14-36) U/L ALT 38 H (4-34) U/L Alkaline Phosphatase 188 H (38-126) U/L Albumin 2.8 L (3.5-5.0) g/dL RBC Folate (280 - 791) ng/mL Microbiology - Last 24 Hours (Table) 03/11/25 12:00 Blood Culture - Final Blood 03/13/25 05:50 Blood Culture - Preliminary Blood Assessment and Plan Time with Patient: Less than 30
[2025-03-17 16:11] LABS: Glucose,Whole Blood 85 mg/dL (70-110)
--- NOTE | 2025-03-17 17:00 | P.PN ---
Subjective Progress Note Date: 03/17/25 Principal diagnosis: Reason for follow-up is bacteremia Patient is a 80-year-old female with multiple comorbidities including type 2 diabetes mellitus hypertension hyperlipidemia atrial fibrillation coronary artery disease did have TAVR in 2018 subsequently open aortic valve replacement MVR and tricuspid valve repair done at [facility] on 05/20/2024 recently admitted to hospital and treated for COVID-19 pneumonia now being admitted to the hospital generalized weakness and did have a positive blood culture with Enterococcus On today's evaluation that is 03/17/2025,the patient remains to be afebrile, patient is on 5 L nasal cannula supplemental oxygen and denies any shortness of breath no chest pain or cough.Patient denies having any nausea or vomiting, no abdominal pain and no diarrhea has been reported. Patient white count is 8.5, creatinine 0.84 Objective - Vital Signs Vital signs: Vital Signs Temp 97.7 F 03/17/25 08:00 Pulse 60 03/17/25 12:00 Resp 16 03/17/25 12:00 BP 121/53 03/17/25 12:00 Pulse Ox 99 03/17/25 12:00 FiO2 Intake & Output 03/16/25 03/17/25 03/17/25 18:59 06:59 18:59 Intake Total 920 30 140 Output Total 775 1430 Balance 920 -745 -1290 Weight 119.9 kg Intake: IV 30 20 Invasive Line 4 10 10 Invasive Line 5 20 10 Intake, IV Titration 500 Amount Ampicillin 2,000 mg In 200 Sodium Chloride 0.9% 100 ml @ 200 mls/hr IVPB Q6H LILIYA Rx#:[id number] Sodium Chloride 0.9% 1, 200 000 ml @ 20 mls/hr IV . Q24H LILIYA Rx#:[id number] cefTRIAXone 2 gm In 100 Dextrose 5% in Water 50 ml @ 100 mls/hr IVPB Q12H LILIYA Rx#:[id number] Oral 420 120 Output: Urine 775 1430 Other: Voiding Method Indwelling Catheter Indwelling Catheter Indwelling Catheter # Bowel Movements 0 - Exam GENERAL DESCRIPTION: An elderly female lying in bed in no distress RESPIRATORY SYSTEM: Unlabored breathing , decreased breath sounds at bases HEART: S1 S2 regular rate and rhythm , ABDOMEN: Soft , no tenderness EXTREMITIES: Swelling to the leg but no redness - Labs CBC & Chem 7: 03/17/25 06:48 03/17/25 06:48 Labs: Abnormal Lab Results - Last 24 Hours (Table) 03/15/25 03/16/25 03/16/25 Range/Units 07:09 16:24 19:53 RBC (4.10-5.20) 10*6/uL Hgb (12.0-15.0) g/dL Hct (37.2-46.3) % MCHC (32.0-37.0) g/dL Plt Count (140-440) 10*3/uL MPV (9.5-12.2) fL Immature Gran # (0.00-0.04) 10*3/uL Lymphocytes # (0.90-5.00) 10*3/uL Sodium (137-145) mmol/L Chloride (98-107) mmol/L Carbon Dioxide (22-30) mmol/L BUN (7-17) mg/dL POC Glucose (mg/dL) 281 H 255 H (70-110) mg/dL Calcium (8.4-10.2) mg/dL AST (14-36) U/L ALT (4-34) U/L Alkaline Phosphatase (38-126) U/L Albumin (3.5-5.0) g/dL RBC Folate 920 H (280 - 791) ng/mL 03/17/25 03/17/25 03/17/25 Range/Units 06:48 06:48 11:21 RBC 3.02 L (4.10-5.20) 10*6/uL Hgb 9.2 L (12.0-15.0) g/dL Hct 29.2 L (37.2-46.3) % MCHC 31.5 L (32.0-37.0) g/dL Plt Count 84 L (140-440) 10*3/uL MPV 13.1 H (9.5-12.2) fL Immature Gran # 0.08 H (0.00-0.04) 10*3/uL Lymphocytes # 0.79 L (0.90-5.00) 10*3/uL Sodium 132 L (137-145) mmol/L Chloride 97 L (98-107) mmol/L Carbon Dioxide 32 H (22-30) mmol/L BUN 18 H (7-17) mg/dL POC Glucose (mg/dL) 122 H (70-110) mg/dL Calcium 7.7 L (8.4-10.2) mg/dL AST 55 H (14-36) U/L ALT 38 H (4-34) U/L Alkaline Phosphatase 188 H (38-126) U/L Albumin 2.8 L (3.5-5.0) g/dL RBC Folate (280 - 791) ng/mL Microbiology - Last 24 Hours (Table) 03/11/25 12:00 Blood Culture - Final Blood 03/13/25 05:50 Blood Culture - Preliminary Blood Assessment and Plan (1) Elevated liver enzymes Current Visit: Yes Status: Acute Code(s): R74.8 - ABNORMAL LEVELS OF OTHER SERUM ENZYMES SNOMED Code(s): 056268350 (2) Pressure ulcer of sacral region, stage 2 Current Visit: Yes Status: Acute Code(s): L89.152 - PRESSURE ULCER OF SACRAL REGION, STAGE 2 SNOMED Code(s): 70725828837788 (3) Bacteremia Current Visit: Yes Status: Acute Code(s): R78.81 - BACTEREMIA SNOMED Code(s): 7921365 Plan: 1patient presented hospitalized weakness which is likely multifactorial in this patient who did have hypotension white count is normal but did have a left shift source question abdominal has the patient have elevated liver enzymes though the ultrasound was inconclusive possible left lower lobe pneumonia this patient recently did have COVID-19 pneumonia 2-patient did have a stage II sacral pressure ulcer but no significant cellulitis continue with local wound care as ordered along with air mattress 3-patient did have persistent bacteremia with Enterococcus faecalis questionable endovascular source, 2D echocardiogram did not mention any vegetation, the patient is status post MELISSA with evidence of mitral valve endocarditis 4patient currently undergoing workup for her anemia and is getting GI prep I will continue with ampicillin and Rocephin and monitor clinical course closely Dictation was produced using [employer] dictation software. please excuse any grammatical, word or spelling errors. Time with Patient: Less than 30
[2025-03-17 20:25] LABS: Glucose,Whole Blood 81 mg/dL (70-110)
[2025-03-18 06:29] LABS: Glucose,Whole Blood 52 mg/dL (70-110)
[2025-03-18 06:47] LABS: Glucose,Whole Blood 96 mg/dL (70-110)
[2025-03-18 08:11] LABS: Basophils # (A) 0.05 10*3/uL (0.00-0.10); Basophils % (A) 0.5 %; Eosinophils # (A) 0.03 10*3/uL (0.04-0.35); Eosinophils % (A) 0.3 %; HGB 8.9 g/dL (12.0-15.0); Immature Platelet Fraction 3.4 % (1.1-6.1); Lymphocytes # (A) 0.65 10*3/uL (0.90-5.00); MCH 30.3 pg (27.0-32.0); MCHC 31.8 g/dL (32.0-37.0); MCV 95.2 fL (80.0-97.0); Mean Platelet Volume 9.5 fL (9.5-12.2); Monocytes # (A) 0.58 10*3/uL (0.20-1.00); Monocytes % (A) 5.3 %; Neutrophils # (A) 9.51 10*3/uL (1.80-7.70); Neutrophils % (A) 87.4 %; Platelet Count 100 10*3/uL (140-440); RBC 2.94 10*6/uL (4.10-5.20); RDW 16.5 % (11.5-14.5); WBC 10.87 10*3/uL (4.50-10.00)
[2025-03-18 08:28] LABS: African American GFR (CKD) 67 (>60 ml/min/1.73 sqM); Anion Gap 6 mmol/L; Blood Urea Nitrogen 15 mg/dL (7-17); Calcium 7.5 mg/dL (8.4-10.2); Carbon Dioxide 33 mmol/L (22-30); Chloride 93 mmol/L (98-107); Glucose 56 mg/dL (74-99); Magnesium 1.8 mg/dL (1.6-2.3); Non-African American GFR(CKD) 58 (>60 ml/min/1.73 sqM); Potassium 3.8 mmol/L (3.5-5.1); Sodium 132 mmol/L (137-145)
[2025-03-18 11:00] VITALS: BMI 49.0
[2025-03-18 11:37] LABS: Glucose,Whole Blood 45 mg/dL (70-110)
--- NOTE | 2025-03-18 11:57 | P.PN ---
Subjective Patient is seen for follow-up for acute kidney injury. Labs have improved with serum creatinine down to 0.8 Hemoglobin 9.2 today Sodium is 133 No significant complaints. Objective - Vital Signs Vital signs: Vital Signs Temp 97.5 F L 03/18/25 04:00 Pulse 66 03/18/25 11:54 Resp 16 03/18/25 11:54 BP 93/47 03/18/25 11:54 Pulse Ox 100 03/18/25 11:54 FiO2 Intake & Output 03/17/25 03/18/25 03/18/25 18:59 06:59 18:59 Intake Total 340 30 10 Output Total 3030 620 Balance -2690 -590 10 Weight 125.6 kg 125.6 kg Intake: IV 20 30 10 Invasive Line 4 10 10 Invasive Line 5 10 20 10 Oral 320 Output: Urine 3030 620 Other: Voiding Method Indwelling Catheter Indwelling Catheter Indwelling Catheter # Bowel Movements 1 - Exam Patient is awake, comfortable, no acute distress Maintained on CPAP Examination of the heart S1 and S2 Examination of the lungs decreased breath sounds at the bases Abdomen is soft obese nontender Examination of lower extremities shows 1+ edema FIRE CAPTAIN exam grossly intact - Labs CBC & Chem 7: 03/18/25 07:37 03/18/25 07:37 Labs: Abnormal Lab Results - Last 24 Hours (Table) 03/14/25 03/18/25 03/18/25 Range/Units 12:48 06:28 07:37 WBC 10.87 H (4.50-10.00) 10*3/uL RBC 2.94 L (4.10-5.20) 10*6/uL Hgb 8.9 L (12.0-15.0) g/dL Hct 28.0 L (37.2-46.3) % MCHC 31.8 L (32.0-37.0) g/dL Plt Count 100 L (140-440) 10*3/uL Immature Gran # 0.05 H (0.00-0.04) 10*3/uL Neutrophils # 9.51 H (1.80-7.70) 10*3/uL Lymphocytes # 0.65 L (0.90-5.00) 10*3/uL Eosinophils # 0.03 L (0.04-0.35) 10*3/uL Sodium (137-145) mmol/L Chloride (98-107) mmol/L Carbon Dioxide (22-30) mmol/L Glucose (74-99) mg/dL POC Glucose (mg/dL) 52 L (70-110) mg/dL Calcium (8.4-10.2) mg/dL Reference Lab Result See BBK REF Reports A 03/18/25 03/18/25 Range/Units 07:37 11:36 WBC (4.50-10.00) 10*3/uL RBC (4.10-5.20) 10*6/uL Hgb (12.0-15.0) g/dL Hct (37.2-46.3) % MCHC (32.0-37.0) g/dL Plt Count (140-440) 10*3/uL Immature Gran # (0.00-0.04) 10*3/uL Neutrophils # (1.80-7.70) 10*3/uL Lymphocytes # (0.90-5.00) 10*3/uL Eosinophils # (0.04-0.35) 10*3/uL Sodium 132 L (137-145) mmol/L Chloride 93 L (98-107) mmol/L Carbon Dioxide 33 H (22-30) mmol/L Glucose 56 L (74-99) mg/dL POC Glucose (mg/dL) 45 L* (70-110) mg/dL Calcium 7.5 L (8.4-10.2) mg/dL Reference Lab Result Assessment and Plan Assessment: 1. Acute kidney injury secondary to ATN secondary to hypotension. Also concern for cardiorenal syndrome. Creatinine 1.46 on admission - 0.8 today. UA fairly benign. 2. Chronic kidney disease stage IIIa with baseline creatinine 1.2-1.3 secondary to diabetic kidney disease. 3. Volume overload. On Lasix. Improved. 4. Hyponatremia, hypervolemic. Also component of hypertonicity from hyperglycemia. Improving. Urine sodium less than 20 and urine osmolality 417. 5. Diabetes mellitus. 6. Anemia. Rule out iron deficiency. Questionable GI bleed. Stool for occult blood positive. Packed RBCs transfusion for hemoglobin of 5.3 on 03/14/2025. 7. Acute on chronic systolic CHF ejection fraction of 40 to 45% with severe pulmonary hypertension, moderate tricuspid regurgitation. 8. Enterococcus bacteremia on antibiotics. 9. Hypokalemia from diuresis. Replaced. Plan: Continue off of IV fluids Continue with Bumex Repeat labs in a.m.
--- NOTE | 2025-03-18 11:58 | P.PN ---
Subjective Patient is seen for follow-up for acute kidney injury. Labs have improved with serum creatinine down to 0.8 Hemoglobin 8.9 today Sodium is 132 No significant complaints. Scheduled for EGD and colonoscopy today. Objective - Vital Signs Vital signs: Vital Signs Temp 97.5 F L 03/18/25 04:00 Pulse 66 03/18/25 11:54 Resp 16 03/18/25 11:54 BP 93/47 03/18/25 11:54 Pulse Ox 100 03/18/25 11:54 FiO2 Intake & Output 03/17/25 03/18/25 03/18/25 18:59 06:59 18:59 Intake Total 340 30 10 Output Total 3030 620 Balance -2690 -590 10 Weight 125.6 kg 125.6 kg Intake: IV 20 30 10 Invasive Line 4 10 10 Invasive Line 5 10 20 10 Oral 320 Output: Urine 3030 620 Other: Voiding Method Indwelling Catheter Indwelling Catheter Indwelling Catheter # Bowel Movements 1 - Exam Patient is awake, comfortable, no acute distress Maintained on CPAP Examination of the heart S1 and S2 Examination of the lungs decreased breath sounds at the bases Abdomen is soft obese nontender Examination of lower extremities shows trace edema SHELLFISH MANAGER exam grossly intact - Labs CBC & Chem 7: 03/18/25 07:37 03/18/25 07:37 Labs: Abnormal Lab Results - Last 24 Hours (Table) 03/14/25 03/18/25 03/18/25 Range/Units 12:48 06:28 07:37 WBC 10.87 H (4.50-10.00) 10*3/uL RBC 2.94 L (4.10-5.20) 10*6/uL Hgb 8.9 L (12.0-15.0) g/dL Hct 28.0 L (37.2-46.3) % MCHC 31.8 L (32.0-37.0) g/dL Plt Count 100 L (140-440) 10*3/uL Immature Gran # 0.05 H (0.00-0.04) 10*3/uL Neutrophils # 9.51 H (1.80-7.70) 10*3/uL Lymphocytes # 0.65 L (0.90-5.00) 10*3/uL Eosinophils # 0.03 L (0.04-0.35) 10*3/uL Sodium (137-145) mmol/L Chloride (98-107) mmol/L Carbon Dioxide (22-30) mmol/L Glucose (74-99) mg/dL POC Glucose (mg/dL) 52 L (70-110) mg/dL Calcium (8.4-10.2) mg/dL Reference Lab Result See BBK REF Reports A 03/18/25 03/18/25 Range/Units 07:37 11:36 WBC (4.50-10.00) 10*3/uL RBC (4.10-5.20) 10*6/uL Hgb (12.0-15.0) g/dL Hct (37.2-46.3) % MCHC (32.0-37.0) g/dL Plt Count (140-440) 10*3/uL Immature Gran # (0.00-0.04) 10*3/uL Neutrophils # (1.80-7.70) 10*3/uL Lymphocytes # (0.90-5.00) 10*3/uL Eosinophils # (0.04-0.35) 10*3/uL Sodium 132 L (137-145) mmol/L Chloride 93 L (98-107) mmol/L Carbon Dioxide 33 H (22-30) mmol/L Glucose 56 L (74-99) mg/dL POC Glucose (mg/dL) 45 L* (70-110) mg/dL Calcium 7.5 L (8.4-10.2) mg/dL Reference Lab Result Assessment and Plan Assessment: 1. Acute kidney injury secondary to ATN secondary to hypotension. Also concern for cardiorenal syndrome. Creatinine 1.46 on admission - 0.8 today. UA fairly benign. 2. Chronic kidney disease stage IIIa with baseline creatinine 1.2-1.3 secondary to diabetic kidney disease. 3. Volume overload. On Lasix. Improved. 4. Hyponatremia, hypervolemic. Also component of hypertonicity from hyperglycemia. Improving. Urine sodium less than 20 and urine osmolality 417. 5. Diabetes mellitus. 6. Anemia. Rule out iron deficiency. Questionable GI bleed. Stool for occult blood positive. Packed RBCs transfusion for hemoglobin of 5.3 on 03/14/2025. 7. Acute on chronic systolic CHF ejection fraction of 40 to 45% with severe pulmonary hypertension, moderate tricuspid regurgitation. 8. Enterococcus bacteremia on antibiotics. 9. Hypokalemia from diuresis. Replaced. Plan: Continue off of IV fluids Continue with Bumex Repeat labs in a.m.
[2025-03-18 12:01] LABS: Glucose,Whole Blood 98 mg/dL (70-110)
[2025-03-18] MEDS: IV FLUID CONTINUATION 1,000 ML IV ONE ×2 (12:28→12:44)
[2025-03-18] MEDS ORDERED: PROPOFOL 10 MG/ML 20 ML VIAL IV ONE (12:28)
--- NOTE | 2025-03-18 12:34 | P.PN ---
Subjective HISTORY OF PRESENT ILLNESS: This is a 80-year-old female patient of Dr. Watson with past medical history of TAVR in 2018 with open aortic valve replacement, MVR and tricuspid valve repair done at [facility] on 05/20/2024, paroxysmal atrial fibrillation, hypertension, dyslipidemia, diabetes mellitus type 2 insulin requiring, hypothyroidism, coronary artery disease with previous stent, history of left pleural effusion status post thoracentesis with removal of 850 cc 10/08/2024. We have been asked to evaluate the patient for CHF. Patient's last office visit with Dr. Watson was 06/24/2020 for. Patient has had multiple hospitalizations [facility] that time including most recently 02/13 - 02/23/2025 at which time she was seen by cardiology. She was hospitalized at that time for COVID-19 and treated for acute on chronic systolic heart failure. At some point, patient's Eliquis was decreased to 2.5 mg twice daily. She has had positive occult blood in the past with anemia and underwent colonoscopy in October with Dr. Hines that found tubular adenoma x 2 without active bleeding. Patient gives history that she came into the hospital because she did not have any energy, no interest in anything and was sleeping a lot. She also complains of shortness of breath with minimal activity, no orthopnea. Patient is poor historian. Blood pressure 121/62, heart rates in the 60s, pulse ox 98% on 6 L nasal cannula. Patient was also on CPAP earlier. Patient has been started on IV Lasix 40 mg every 12 hours. -EKG: Atrial paced rhythm. -Chest x-ray: Persistent left basilar airspace disease atelectasis or pneumonia. Persistent small left pleural effusion. -Gallbladder ultrasound: Gallbladder not visualized. Right kidney not visualize d. -CT head: No acute intracranial process. -Laboratory studies: Hemoglobin 7.9 repeat 7.7, platelet count 39, WBC 5.0. Sodium 122, potassium 4.5, BUN 65 and creatinine improved from 1.46-1.23. Lact ic acid 3.1 repeat 2.0. Troponins 0.087, 0.084, 0.084. Urinalysis negative for infection. Stool for occult blood positive. Acetone negative. Cepheid viral panel not detected. -Home cardiac medications: Eliquis 2.5 mg twice daily, atorvastatin 40 mg at bedtime, Farxiga 10 mg daily, Lasix 40 mg twice daily, losartan 12.5 mg daily, metolazone 2.5 mg daily, metoprolol succinate 50 mg in the morning and 25 mg at bedtime. -Echocardiogram performed 01/30/2025 at [facility] revealed suboptimal study, EF 40 to 45%, severe pulmonary hypertension. -Cardiac PCI performed 01/05/2021 to the mid diagonal 1 and ostial PDA. -Cardiovascular surgery with TAVR 11/04/2018. -Cardiovascular surgery with tissue AVR, tissue MVR, tricuspid valve repair 05/20/2024 at [facility]. 03/10/2025 Patient is more alert clinically. She has a Enterococcus growing in her blood. She has also a decubitus ulcer on her back. She has history of multivalve her surgery and I am concerned about seeding. However she is on aggressive antibiotic therapy mentally she is more alert responsive to questions hemodynamically stable and no overt heart failure at this time. We will continue supportive care and current medical regimen. 03/11/2025 Patient examined this morning at the bedside. Patient currently denies chest pain or pressure. She denies shortness of breath. Vital signs are stable. 03/13/2025 Patient is seen and examined at bedside this a.m. She underwent a MELISSA yesterday which showed evidence of vegetation attached to the mitral plastering towards the atrial side suggestive of endocarditis. bp 113/65 hr 64 bpm 03/15/2025 Patient examined this morning at the bedside. She is currently sitting up in the chair. Patient's daughter is present. Patient is emotional this morning regarding everything going on with her health. Patient is currently wearing her home CPAP. Patient's hemoglobin yesterday was 5.3. She received 2 units RBCs. Repeat hemoglobin today 9.4. 03/16/2025 Patient examined this morning at the bedside. Patient states she is feeling better today. She denies chest pain or pressure. Denies shortness of breath. General surgery has been consulted and is planning for endoscopy on . 03/17/2025 Patient examined this morning at the bedside. Patient currently denies chest p ain or pressure. She denies shortness of breath. Patient is currently undergoing bowel prep for endoscopy tomorrow. Hemoglobin 9.2. 03/18/2025 Patient examined this morning at bedside. Patient currently denies chest pain or pressure. She denies shortness of breath. She is scheduled to undergo e ndoscopy today with general surgery. Hemoglobin today 8.9. PHYSICAL EXAM: VITAL SIGNS: Reviewed. GENERAL: Well-developed in no acute distress. NECK: Supple. No JVD or thyromegaly LUNGS: Respirations even and unlabored. Lungs essentially clear to auscultation bilaterally. HEART: Regular rate and rhythm. S1 and S2 heard. EXTREMITIES: Normal range of motion. No clubbing or cyanosis. Peripheral pulses intact. 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, likely source from sacral ulcer stage II Generalized weakness most likely secondary to combination of hyponatremia, acute kidney injury, recent COVID Hyponatremia Acute kidney injury Recent COVID Pancytopenia Rule out sepsis Metabolic encephalopathy Acute on chronic heart failure with EF of 40 to 45% Valvular heart disease status post TAVR status post open aortic valve replacement, mitral valve replacement, tricuspid valve repair in May 2024 Paroxysmal atrial fibrillation, paced rhythm Hypertension Dyslipidemia Diabetes mellitus type 2 insulin requiring Hypothyroidism Coronary artery disease with previous stent to the mid diagonal 1 and ostial PDA Anemia with questionable GI bleed, stool for occult blood positive, status post 2 units RBCs 03/14/2025 PLAN: Anticoagulation has been discontinued during hospitalization secondary to anemia Continue current cardiac medications including Lipitor, Bumex, metoprolol succinate, and Aldactone Daily weights, accurate intake and output, monitoring of kidney function Continue antibiotics per infectious disease General Surgery planning for endoscopy today. Await results. Further recommendations pending patient course Nurse practitioner note has been reviewed by physician. Signing provider agrees with the documented findings, assessment, and plan of care documented by BUGGY MAN as a scribe. Objective - Vital Signs Vital signs: Vital Signs Temp 97.5 F L 03/18/25 04:00 Pulse 66 03/18/25 11:54 Resp 16 03/18/25 11:54 BP 93/47 03/18/25 11:54 Pulse Ox 100 03/18/25 11:54 FiO2 Intake & Output 03/17/25 03/18/25 03/18/25 18:59 06:59 18:59 Intake Total 340 30 10 Output Total 3030 620 750 Balance -2690 -590 -740 Weight 125.6 kg 125.6 kg Intake: IV 20 30 10 Invasive Line 4 10 10 Invasive Line 5 10 20 10 Oral 320 Output: Urine 3030 620 750 Other: Voiding Method Indwelling Catheter Indwelling Catheter Indwelling Catheter # Bowel Movements 1 - Labs CBC & Chem 7: 03/18/25 07:37 03/18/25 07:37 Labs: Abnormal Lab Results - Last 24 Hours (Table) 03/14/25 03/18/25 03/18/25 Range/Units 12:48 06:28 07:37 WBC 10.87 H (4.50-10.00) 10*3/uL RBC 2.94 L (4.10-5.20) 10*6/uL Hgb 8.9 L (12.0-15.0) g/dL Hct 28.0 L (37.2-46.3) % MCHC 31.8 L (32.0-37.0) g/dL Plt Count 100 L (140-440) 10*3/uL Immature Gran # 0.05 H (0.00-0.04) 10*3/uL Neutrophils # 9.51 H (1.80-7.70) 10*3/uL Lymphocytes # 0.65 L (0.90-5.00) 10*3/uL Eosinophils # 0.03 L (0.04-0.35) 10*3/uL Sodium (137-145) mmol/L Chloride (98-107) mmol/L Carbon Dioxide (22-30) mmol/L Glucose (74-99) mg/dL POC Glucose (mg/dL) 52 L (70-110) mg/dL Calcium (8.4-10.2) mg/dL Reference Lab Result See BBK REF Reports A 03/18/25 03/18/25 Range/Units 07:37 11:36 WBC (4.50-10.00) 10*3/uL RBC (4.10-5.20) 10*6/uL Hgb (12.0-15.0) g/dL Hct (37.2-46.3) % MCHC (32.0-37.0) g/dL Plt Count (140-440) 10*3/uL Immature Gran # (0.00-0.04) 10*3/uL Neutrophils # (1.80-7.70) 10*3/uL Lymphocytes # (0.90-5.00) 10*3/uL Eosinophils # (0.04-0.35) 10*3/uL Sodium 132 L (137-145) mmol/L Chloride 93 L (98-107) mmol/L Carbon Dioxide 33 H (22-30) mmol/L Glucose 56 L (74-99) mg/dL POC Glucose (mg/dL) 45 L* (70-110) mg/dL Calcium 7.5 L (8.4-10.2) mg/dL Reference Lab Result
--- NOTE | 2025-03-18 12:48 | P.OP ---
Date of Procedure: 03/18/25 Preoperative Diagnosis: GI bleed Postoperative Diagnosis: Antral gastritis Poor colon prep Procedure(s) Performed: EGD Anesthesia: MAC Surgeon: Negrito Tolbert Pathology: other (Antrum) Condition: stable Disposition: PACU Description of Procedure: The patient was placed on the endoscopy table in the lateral position. She received IV sedation. The Gastroflux oropharynx passed in the esophagus and stomach. Scope was then placed through the pylorus. The first second portion of duodenum appeared normal. Scope was then brought back to the antrum this appeared mildly inflamed. A biopsy performed. Scope was then retroflexed A and the remainder of the stomach appeared normal. The GE junction was at 40 cm. The distal esophagus appeared normal. The proximal esophagus appeared normal. There was no evidence of any active upper GI bleed. The patient was then rotated. The patient had large solid bowel movements noted in her on her briefs. Due to the poor prep it was decided to cancel the colonoscopy. There was no evidence of any GI bleed. It was unclear where her bleeding originated from.
--- NOTE | 2025-03-18 13:38 | P.PN ---
Subjective Progress Note Date: 03/18/25 SURGICAL PROGRESS NOTE CHIEF COMPLAINT: Endocarditis HISTORY OF PRESENT ILLNESS: Surgical service following regards to patient's anemia. Patient lying in bed comfortably. Denies any shortness of breath. On nasal cannula. Afebrile. Hgb 8.9 PHYSICAL EXAM: VITAL SIGNS: Reviewed. GENERAL: Well-developed in no acute distress. ABDOMEN: Soft. Nondistended. Nontender. NEUROLOGIC: Alert and oriented. Cranial nerves II through XII grossly intact. ASSESSMENT: 1. Anemia with melanotic stools, has required blood transfusion 2. Mitral valve endocarditis PLAN: - Patient scheduled for EGD and colonoscopy today Physician Treating Engineer Helper note has been reviewed by physician. Signing provider agrees with the documented findings, assessment, and plan of care. Objective - Vital Signs Vital signs: Vital Signs Temp 97.5 F L 03/18/25 04:00 Pulse 66 03/18/25 11:54 Resp 16 03/18/25 11:54 BP 93/47 03/18/25 11:54 Pulse Ox 100 03/18/25 11:54 FiO2 Intake & Output 03/17/25 03/18/25 03/18/25 18:59 06:59 18:59 Intake Total 340 30 110 Output Total 3030 620 750 Balance -3109 -584 -640 Weight 125.6 kg 125.6 kg Intake: IV 20 30 110 Invasive Line 4 10 10 Invasive Line 5 10 20 10 Oral 320 Output: Urine 3030 620 750 Other: Voiding Method Indwelling Catheter Indwelling Catheter Indwelling Catheter # Bowel Movements 1 2 - Labs CBC & Chem 7: 03/18/25 07:37 03/18/25 07:37 Labs: Abnormal Lab Results - Last 24 Hours (Table) 03/14/25 03/18/25 03/18/25 Range/Units 12:48 06:28 07:37 WBC 10.87 H (4.50-10.00) 10*3/uL RBC 2.94 L (4.10-5.20) 10*6/uL Hgb 8.9 L (12.0-15.0) g/dL Hct 28.0 L (37.2-46.3) % MCHC 31.8 L (32.0-37.0) g/dL Plt Count 100 L (140-440) 10*3/uL Immature Gran # 0.05 H (0.00-0.04) 10*3/uL Neutrophils # 9.51 H (1.80-7.70) 10*3/uL Lymphocytes # 0.65 L (0.90-5.00) 10*3/uL Eosinophils # 0.03 L (0.04-0.35) 10*3/uL Sodium (137-145) mmol/L Chloride (98-107) mmol/L Carbon Dioxide (22-30) mmol/L Glucose (74-99) mg/dL POC Glucose (mg/dL) 52 L (70-110) mg/dL Calcium (8.4-10.2) mg/dL Reference Lab Result See BBK REF Reports A 03/18/25 03/18/25 Range/Units 07:37 11:36 WBC (4.50-10.00) 10*3/uL RBC (4.10-5.20) 10*6/uL Hgb (12.0-15.0) g/dL Hct (37.2-46.3) % MCHC (32.0-37.0) g/dL Plt Count (140-440) 10*3/uL Immature Gran # (0.00-0.04) 10*3/uL Neutrophils # (1.80-7.70) 10*3/uL Lymphocytes # (0.90-5.00) 10*3/uL Eosinophils # (0.04-0.35) 10*3/uL Sodium 132 L (137-145) mmol/L Chloride 93 L (98-107) mmol/L Carbon Dioxide 33 H (22-30) mmol/L Glucose 56 L (74-99) mg/dL POC Glucose (mg/dL) 45 L* (70-110) mg/dL Calcium 7.5 L (8.4-10.2) mg/dL Reference Lab Result Microbiology - Last 24 Hours (Table) 03/13/25 05:50 Blood Culture - Final Blood
[2025-03-18 16:55] LABS: Glucose,Whole Blood 114 mg/dL (70-110)
--- NOTE | 2025-03-18 20:09 | P.PN ---
Subjective Progress Note Date: 03/18/25 Principal diagnosis: Reason for follow-up is bacteremia Patient is a 80-year-old female with multiple comorbidities including type 2 diabetes mellitus hypertension hyperlipidemia atrial fibrillation coronary artery disease did have TAVR in 2018 subsequently open aortic valve replacement MVR and tricuspid valve repair done at [facility] on 05/20/2024 recently admitted to hospital and treated for COVID-19 pneumonia now being admitted to the hospital generalized weakness and did have a positive blood culture with Enterococcus On today's evaluation that is 03/18/2025, the patient continues to be afebrile, the patient is on r 6 L nasal oxygen and breathing comfortably, the Pt denies having any chest pain or cough, the patient denies having any abdominal pain no vomiting did have multiple bowel movements after bowel prep. Patient white count is 10.87, creatinine 0.94 blood culture repeat has been negative Objective - Vital Signs Vital signs: Vital Signs Temp 97.5 F L 03/18/25 04:00 Pulse 66 03/18/25 11:54 Resp 16 03/18/25 11:54 BP 93/47 03/18/25 11:54 Pulse Ox 100 03/18/25 11:54 FiO2 Intake & Output 03/17/25 03/18/25 03/18/25 18:59 06:59 18:59 Intake Total 340 30 110 Output Total 3030 620 1750 Balance -9995 -417 -9615 Weight 125.6 kg 125.6 kg Intake: IV 20 30 110 Invasive Line 4 10 10 Invasive Line 5 10 20 10 Oral 320 Output: Urine 3030 620 1750 Other: Voiding Method Indwelling Catheter Indwelling Catheter Indwelling Catheter # Bowel Movements 1 1 - Exam GENERAL DESCRIPTION: An elderly female lying in bed in no distress RESPIRATORY SYSTEM: Unlabored breathing , decreased breath sounds at bases HEART: S1 S2 regular rate and rhythm , ABDOMEN: Soft , no tenderness EXTREMITIES: Swelling to the leg but no redness - Labs CBC & Chem 7: 03/18/25 07:37 03/18/25 07:37 Labs: Abnormal Lab Results - Last 24 Hours (Table) 03/14/25 03/18/25 03/18/25 Range/Units 12:48 06:28 07:37 WBC 10.87 H (4.50-10.00) 10*3/uL RBC 2.94 L (4.10-5.20) 10*6/uL Hgb 8.9 L (12.0-15.0) g/dL Hct 28.0 L (37.2-46.3) % MCHC 31.8 L (32.0-37.0) g/dL Plt Count 100 L (140-440) 10*3/uL Immature Gran # 0.05 H (0.00-0.04) 10*3/uL Neutrophils # 9.51 H (1.80-7.70) 10*3/uL Lymphocytes # 0.65 L (0.90-5.00) 10*3/uL Eosinophils # 0.03 L (0.04-0.35) 10*3/uL Sodium (137-145) mmol/L Chloride (98-107) mmol/L Carbon Dioxide (22-30) mmol/L Glucose (74-99) mg/dL POC Glucose (mg/dL) 52 L (70-110) mg/dL Calcium (8.4-10.2) mg/dL Reference Lab Result See [facility] REF Reports A 03/18/25 03/18/25 Range/Units 07:37 11:36 WBC (4.50-10.00) 10*3/uL RBC (4.10-5.20) 10*6/uL Hgb (12.0-15.0) g/dL Hct (37.2-46.3) % MCHC (32.0-37.0) g/dL Plt Count (140-440) 10*3/uL Immature Gran # (0.00-0.04) 10*3/uL Neutrophils # (1.80-7.70) 10*3/uL Lymphocytes # (0.90-5.00) 10*3/uL Eosinophils # (0.04-0.35) 10*3/uL Sodium 132 L (137-145) mmol/L Chloride 93 L (98-107) mmol/L Carbon Dioxide 33 H (22-30) mmol/L Glucose 56 L (74-99) mg/dL POC Glucose (mg/dL) 45 L* (70-110) mg/dL Calcium 7.5 L (8.4-10.2) mg/dL Reference Lab Result Microbiology - Last 24 Hours (Table) 03/13/25 05:50 Blood Culture - Final Blood Assessment and Plan (1) Elevated liver enzymes Current Visit: Yes Status: Acute Code(s): R74.8 - ABNORMAL LEVELS OF OTHER SERUM ENZYMES SNOMED Code(s): 573763339 (2) Pressure ulcer of sacral region, stage 2 Current Visit: Yes Status: Acute Code(s): L89.152 - PRESSURE ULCER OF SACRAL REGION, STAGE 2 SNOMED Code(s): 67032547973358 (3) Bacteremia Current Visit: Yes Status: Acute Code(s): R78.81 - BACTEREMIA SNOMED Code(s): 9916724 Plan: 1patient presented hospitalized weakness which is likely multifactorial in this patient who did have hypotension white count is normal but did have a left shift source question abdominal has the patient have elevated liver enzymes though the ultrasound was inconclusive possible left lower lobe pneumonia this patient recently did have COVID-19 pneumonia 2-patient did have a stage II sacral pressure ulcer but no significant cellulitis continue with local wound care as ordered along with air mattress 3-patient did have Enterococcus faecalis bacteremia secondary to endovascular source, 2D echocardiogram did not mention any vegetation, the patient is status post MELISSA with evidence of mitral valve endocarditis 4patient to continue with ampicillin and Rocephin and monitor clinical course closely Daughter at the bedside question answered Dictation was produced using [email or web address] dictation software. please excuse any grammatical, word or spelling errors. Time with Patient: Less than 30
[2025-03-18 20:24] LABS: Glucose,Whole Blood 210 mg/dL (70-110)
--- NOTE | 2025-03-18 22:03 | P.PN ---
Subjective Progress Note Date: 03/18/25 80-year-old female with history of mitral valve replacement congestive heart failure EF of around 40 to 45% came in with complaints of generalized weakness. Patient is found to be hyponatremic. Patient is on 6 L of oxygen usually uses 4 to 5 L at home. Patient does have history of obstructive sleep apnea for which patient is on BiPAP at home. Patient had no fever or chills patient does not have any leukocytosis patient does not have any complaints of dysuria suprapubic pain urine is essentially within normal limits chest x-ray showed some nonspecific infiltrate not consistent with pneumonia. Will obtain a procalcitonin level patient's BNP is elevated to 8000 patient's previous BNP was 5000. Patient does have bilateral lower extremity pedal edema. Patient does have stage II decubitus ulcers does not appear to be infected. Patient was started on vancomycin probably for that reason in ER. Patient has minimally elevated troponins. 03/09/2025 Patient is evaluated today in follow up in the intensive care unit. Patient remains on antibiotics in the form of IV Unasyn. Her blood culture did come back positive for Enterococcus faecalis. It was repeated today and ID is following. Labs today reveal a white blood cell count of 6.20, hemoglobin 8.1, sodium 127, BUN of 63 creatinine of 1.26. AST and ALT are significantly improved. 03/10/2025 Patient evaluated in the intensive care unit remains on CPAP and tolerating well. More awake and alert. Repeat blood culture positive for enterococcus. Limited echocardiogram reveals EF 55-60%, mild pulmonary hypertension, mild TR, there is mitral valve and tricuspid valve repair as well as AVR. Technically difficult study. Does not appear to be any vegetation noted. Remains on IV unasyn. white blood cell count 8.40, hgb 7.8, platelet 32, sodium 130, potassium 4.2, BUN 55, creatinine 1.06. 03/11/2025 Patient is evaluated today in follow up; has been moved out of the ICU. Patient currently on oxygen via nasal cannula. Patient continues with persistent bacteremia with enterococcus faecalis and discussed echocardiogram findings with ID and recommendations made for MELISSA. Pt. will be going for the MELISSA on 03/12/[address] Watson. She will need to be NPO after midnight. Patient remains on IV unasyn and IV ceftriaxone. Blood pressure into the 90s this morning and a 500 cc bolus was given. She is tolerating oxygen via nasal cannula and also utilizing the CPAP at the bedside. Patient is more awake alert and oriented at this time. 03/12/2025 Patient is seen in follow-up today currently n.p.o. continues on her CPAP machine scheduled to undergo MELISSA with cardiology following. Multiple consultations following including infectious disease maintained on IV antibiotics and continues to have persistent bacteremia with Enterococcus awaiting MELISSA report. Patient is afebrile with no reports chest pain or worsening shortness of breath. 03/13. Patient seen and examined. Vitals this morning show temperature 99.3, heart rate 63, blood pressure 109/65 03/14. Patient seen and examined. Hemoglobin this morning is 5.3, patient being given 2 units of packed red blood cell. Had an episode of dark stool this morning. FOBT is positive 03/15. Patient seen and examined. Blood work done this morning showed WBC 8.98, hemoglobin 9.4, sodium 132, potassium 4.1. Patient very emotional this morning. Was concerned about her overall health. Explained to her the need for her to be evaluated with surgery for anemia 03/16. Patient seen and examined. Surgery evaluated, planning EGD and colonoscopy on . States breathing remains the same. Denies any chest pain or shortness of breath. 03/17/2025 Patient evaluated in follow-up on the medical floor. Patient is currently undergoing bowel prep she will be going for EGD colonoscopy tomorrow. She states that she is still having dark bowel movements. Patient continues on IV Unasyn and IV Rocephin for the Enterococcus in the blood. MELISSA did reveal vegetation on the mitral valve. Patient has received PICC line for discharge antibiotics. Pending insurance auth for discharge to [facility] 03/18/2025 Patient is evaluated today in follow up. Pending colonoscopy. Hemoglobin 8.9 today. White blood cell count 10.87. Sodium 132. Magnesium 1.8. REVIEW OF SYSTEMS: CONSTITUTIONAL: No fever, no malaise,. CARDIOVASCULAR: No chest pain, no palpitations, no syncope. PULMONARY: No shortness of breath, no cough, GASTROINTESTINAL: No diarrhea, no nausea, no vomiting, no abdominal pain. NEUROLOGICAL: No headaches, no weakness, PHYSICAL EXAMINATION: GENERAL: The patient is alert and oriented x3, ill looking HEENT: Pupils are round and equally reacting to light. EOMI. No scleral icterus. No conjunctival pallor. Normocephalic, atraumatic. No pharyngeal erythema. No thyromegaly. CARDIOVASCULAR: S1 and S2 present. No murmurs, rubs, or gallops. PULMONARY: Diminished breath sounds at the bases bilaterally, no wheezing or crackles. ABDOMEN: Soft, nontender, nondistended, normoactive bowel sounds. No palpable organomegaly. MUSCULOSKELETAL: No joint swelling or deformity. EXTREMITIES: No cyanosis, clubbing, or pedal edema. NEUROLOGICAL: Gross neurological examination did not reveal any focal deficits. SKIN: No rashes. Assessment and plan - Sepsis and enterococcus bacteremia POA as blood culture collected on admission positive for enterococcus, status post MELISSA which was positive for mitral valve endocarditis -Acute blood loss anemia -GI bleed -Stage II sacral ulcer - Congestive heart failure chronic systolic function with acute exacerbation. - Hypervolemic hyponatremia, improving - Acute on chronic hypoxic respiratory failure secondary to pulmonary edema. on 5L of oxygen outpatient - Type 2 diabetes mellitus uncontrolled with elevated blood sugars - History of atrial fibrillation: Patient is presently rate controlled patient probably has paroxysmal A-fib on Eliquis at home - History of GI bleed - History of pancytopenia follows with hematology outpatient this is because of the slow GI bleed - History of bioprosthetic aortic valve replacement - Sleep apnea on CPAP machine -Transaminitis likely from sepsis improving -Hypothyroidism - Morbid obesity with a BMI of 46.5 Full Code Plan Monitor vital signs Monitor CBC Monitor CMP Continue telemetry monitoring MELISSA showing mitral valve endocarditis Continue Unasyn and Rocephin; PICC line in place pending final antibiotic recommendations Status post 2 units of packed red blood cells on03/14 Continue Lipitor ID following Nephrology following Surgery following, pending endoscopy reports. Plans for [facility] on discharge pending insurance authorization Dictation was produced using [facility] dictation software. please excuse any grammatical, word or spelling errors. The impression and plan of care has been dictated by Leti Robertson, Nurse Practitioner as directed. Dr. Stefan MD I have performed a history and physical examination and medical decision making of this patient, discussed the same with the dictator, and agree with the dictators assessment and plan as written, documented as a scribe. Based on total visit time, I have performed more than 50% of this visit. Objective - Vital Signs Vital signs: Vital Signs Temp 97.5 F L 03/18/25 04:00 Pulse 65 03/18/25 16:00 Resp 16 03/18/25 16:00 BP 145/61 03/18/25 16:00 Pulse Ox 99 03/18/25 16:00 FiO2 Intake & Output 03/18/25 03/18/25 03/19/25 06:59 18:59 06:59 Intake Total 30 360 Output Total 620 2500 Balance -590 -2140 Weight 125.6 kg 125.6 kg Intake: IV 30 110 Invasive Line 4 10 Invasive Line 5 20 10 Intake, IV Titration 250 Amount Ampicillin 2,000 mg In 200 Sodium Chloride 0.9% 100 ml @ 200 mls/hr IVPB Q6H [facility] Rx#:[id number] cefTRIAXone 2 gm In 50 Dextrose 5% in Water 50 ml @ 100 mls/hr IVPB Q12H [facility] Rx#:[id number] Output: Urine 620 2500 Other: Voiding Method Indwelling Catheter Indwelling Catheter # Bowel Movements 1 2 1 - Labs CBC & Chem 7: 03/18/25 07:37 03/18/25 07:37 Labs: Abnormal Lab Results - Last 24 Hours (Table) 03/18/25 03/18/25 03/18/25 Range/Units 06:28 07:37 07:37 WBC 10.87 H (4.50-10.00) 10*3/uL RBC 2.94 L (4.10-5.20) 10*6/uL Hgb 8.9 L (12.0-15.0) g/dL Hct 28.0 L (37.2-46.3) % MCHC 31.8 L (32.0-37.0) g/dL Plt Count 100 L (140-440) 10*3/uL Immature Gran # 0.05 H (0.00-0.04) 10*3/uL Neutrophils # 9.51 H (1.80-7.70) 10*3/uL Lymphocytes # 0.65 L (0.90-5.00) 10*3/uL Eosinophils # 0.03 L (0.04-0.35) 10*3/uL Sodium 132 L (137-145) mmol/L Chloride 93 L (98-107) mmol/L Carbon Dioxide 33 H (22-30) mmol/L Glucose 56 L (74-99) mg/dL POC Glucose (mg/dL) 52 L (70-110) mg/dL Calcium 7.5 L (8.4-10.2) mg/dL 03/18/25 03/18/25 03/18/25 Range/Units 11:36 16:54 20:23 WBC (4.50-10.00) 10*3/uL RBC (4.10-5.20) 10*6/uL Hgb (12.0-15.0) g/dL Hct (37.2-46.3) % MCHC (32.0-37.0) g/dL Plt Count (140-440) 10*3/uL Immature Gran # (0.00-0.04) 10*3/uL Neutrophils # (1.80-7.70) 10*3/uL Lymphocytes # (0.90-5.00) 10*3/uL Eosinophils # (0.04-0.35) 10*3/uL Sodium (137-145) mmol/L Chloride (98-107) mmol/L Carbon Dioxide (22-30) mmol/L Glucose (74-99) mg/dL POC Glucose (mg/dL) 45 L* 114 H 210 H (70-110) mg/dL Calcium (8.4-10.2) mg/dL Microbiology - Last 24 Hours (Table) 03/13/25 05:50 Blood Culture - Final Blood Assessment and Plan Time with Patient: Less than 30
[2025-03-19 04:20] VITALS: RESP 16
[2025-03-19 06:20] LABS: Glucose,Whole Blood 208 mg/dL (70-110)
[2025-03-19 06:43] LABS: Basophils # (A) 0.04 10*3/uL (0.00-0.10); Basophils % (A) 0.6 %; Eosinophils # (A) 0.07 10*3/uL (0.04-0.35); HCT 24.7 % (37.2-46.3); HGB 7.8 g/dL (12.0-15.0); Immature Platelet Fraction 2.6 % (1.1-6.1); Lymphocytes # (A) 0.68 10*3/uL (0.90-5.00); Lymphocytes % (A) 9.4 %; MCH 29.9 pg (27.0-32.0); MCHC 31.6 g/dL (32.0-37.0); MCV 94.6 fL (80.0-97.0); Mean Platelet Volume 10.3 fL (9.5-12.2); Monocytes # (A) 0.51 10*3/uL (0.20-1.00); Monocytes % (A) 7.1 %; Neutrophils # (A) 5.89 10*3/uL (1.80-7.70); Neutrophils % (A) 81.5 %; RBC 2.61 10*6/uL (4.10-5.20); RDW 16.4 % (11.5-14.5); WBC 7.22 10*3/uL (4.50-10.00)
[2025-03-19 06:47] LABS: Platelet Count 88 10*3/uL (140-440)
[2025-03-19 07:01] LABS: ALT 35 U/L (4-34); AST 50 U/L (14-36); African American GFR (CKD) 71 (>60 ml/min/1.73 sqM); Albumin 2.5 g/dL (3.5-5.0); Alkaline Phosphatase 195 U/L (38-126); Anion Gap 5 mmol/L; Blood Urea Nitrogen 14 mg/dL (7-17); Calcium 7.2 mg/dL (8.4-10.2); Carbon Dioxide 33 mmol/L (22-30); Chloride 94 mmol/L (98-107); Glucose 185 mg/dL (74-99); Non-African American GFR(CKD) 62 (>60 ml/min/1.73 sqM); Potassium 4.2 mmol/L (3.5-5.1); Sodium 132 mmol/L (137-145); Total Bilirubin 0.6 mg/dL (0.2-1.3)
--- NOTE | 2025-03-19 10:19 | P.PN ---
Subjective Progress Note Date: 03/19/25 Principal diagnosis: Reason for follow-up is bacteremia Patient is a 80-year-old female with multiple comorbidities including type 2 diabetes mellitus hypertension hyperlipidemia atrial fibrillation coronary artery disease did have TAVR in 2018 subsequently open aortic valve replacement MVR and tricuspid valve repair done at [facility] on 05/20/2024 recently admitted to hospital and treated for COVID-19 pneumonia now being admitted to the hospital generalized weakness and did have a positive blood culture with Enterococcus On today's evaluation that is 03/19/2025, Patient is afebrile patient is currently on 4 L nasal oxygen and denies having any shortness of breath, the patient denies any chest pain or cough, the patient denies any nausea vomiting did not have any abdominal pain and no diarrhea. Patient white count 7.22, creatinine 0.89 blood culture repeat has been negative so far Objective - Vital Signs Vital signs: Vital Signs Temp 98.6 F 03/19/25 04:00 Pulse 77 03/19/25 04:00 Resp 16 03/19/25 04:00 BP 133/69 03/19/25 04:00 Pulse Ox 97 03/19/25 04:00 FiO2 Intake & Output 03/18/25 03/19/25 03/19/25 18:59 06:59 18:59 Intake Total 360 20 118 Output Total 2500 650 Balance -2140 -630 118 Weight 125.6 kg Intake: IV 110 20 Invasive Line 4 10 Invasive Line 5 10 10 Intake, IV Titration 250 Amount Ampicillin 2,000 mg In 200 Sodium Chloride 0.9% 100 ml @ 200 mls/hr IVPB Q6H [facility] Rx#:[id number] cefTRIAXone 2 gm In 50 Dextrose 5% in Water 50 ml @ 100 mls/hr IVPB Q12H [facility] Rx#:[id number] Oral 118 Output: Urine 2500 650 Other: Voiding Method Indwelling Catheter Indwelling Catheter # Bowel Movements 2 1 2 - Exam GENERAL DESCRIPTION: An elderly female lying in bed in no distress RESPIRATORY SYSTEM: Unlabored breathing , decreased breath sounds at bases HEART: S1 S2 regular rate and rhythm , ABDOMEN: Soft , no tenderness EXTREMITIES: Swelling to the leg but no redness - Labs CBC & Chem 7: 03/19/25 06:05 03/19/25 06:05 Labs: Abnormal Lab Results - Last 24 Hours (Table) 03/18/25 03/18/2525 Range/Units 11:36 16:54 20:23 RBC (4.10-5.20) 10*6/uL Hgb (12.0-15.0) g/dL Hct (37.2-46.3) % MCHC (32.0-37.0) g/dL Plt Count (140-440) 10*3/uL Lymphocytes # (0.90-5.00) 10*3/uL Sodium (137-145) mmol/L Chloride (98-107) mmol/L Carbon Dioxide (22-30) mmol/L Glucose (74-99) mg/dL POC Glucose (mg/dL) 45 L* 114 H 210 H (70-110) mg/dL Calcium (8.4-10.2) mg/dL AST (14-36) U/L ALT (4-34) U/L Alkaline Phosphatase (38-126) U/L Total Protein (6.3-8.2) g/dL Albumin (3.5-5.0) g/dL 03/19/25 03/19/25 03/19/25 Range/Units 06:05 06:05 06:19 RBC 2.61 L (4.10-5.20) 10*6/uL Hgb 7.8 L (12.0-15.0) g/dL Hct 24.7 L (37.2-46.3) % MCHC 31.6 L (32.0-37.0) g/dL Plt Count 88 L (140-440) 10*3/uL Lymphocytes # 0.68 L (0.90-5.00) 10*3/uL Sodium 132 L (137-145) mmol/L Chloride 94 L (98-107) mmol/L Carbon Dioxide 33 H (22-30) mmol/L Glucose 185 H (74-99) mg/dL POC Glucose (mg/dL) 208 H (70-110) mg/dL Calcium 7.2 L (8.4-10.2) mg/dL AST 50 H (14-36) U/L ALT 35 H (4-34) U/L Alkaline Phosphatase 195 H (38-126) U/L Total Protein 6.0 L (6.3-8.2) g/dL Albumin 2.5 L (3.5-5.0) g/dL Microbiology - Last 24 Hours (Table) 03/13/25 05:50 Blood Culture - Final Blood Assessment and Plan (1) Elevated liver enzymes Current Visit: Yes Status: Acute Code(s): R74.8 - ABNORMAL LEVELS OF OTHER SERUM ENZYMES SNOMED Code(s): 836579086 (2) Pressure ulcer of sacral region, stage 2 Current Visit: Yes Status: Acute Code(s): L89.152 - PRESSURE ULCER OF SACRAL REGION, STAGE 2 SNOMED Code(s): 15480618172101 (3) Bacteremia Current Visit: Yes Status: Acute Code(s): R78.81 - BACTEREMIA SNOMED Code(s): 1589581 Plan: 1patient presented hospitalized weakness which is likely multifactorial in this patient who did have hypotension white count is normal but did have a left shift source question abdominal has the patient have elevated liver enzymes though the ultrasound was inconclusive possible left lower lobe pneumonia this patient recently did have COVID-19 pneumonia 2-patient did have a stage II sacral pressure ulcer but no significant cellulitis continue with local wound care as ordered along with air mattress 3-patient did have Enterococcus faecalis bacteremia secondary to endovascular source, 2D echocardiogram did not mention any vegetation, the patient is status post MELISSA with evidence of mitral valve endocarditis 4patient currently being treated with ampicillin and Rocephin which she will need for another 5 weeks to finish her 6-week course of therapy Dictation was produced using [employer] dictation software. please excuse any grammatical, word or spelling errors. Time with Patient: Less than 30
--- NOTE | 2025-03-19 10:59 | P.PN ---
Subjective HISTORY OF PRESENT ILLNESS: This is a 80-year-old female patient of Dr. 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 on 05/20/2024, paroxysmal atrial fibrillation, hypertension, dyslipidemia, diabetes mellitus type 2 insulin requiring, hypothyroidism, coronary artery disease with previous stent, history of left pleural effusion status post thoracentesis with removal of 850 cc 10/08/2024. We have been asked to evaluate the patient for CHF. Patient's last office visit with Dr. Watson was 06/24/2020 for. Patient has had multiple hospitalizations si [facility] that time including most recently 02/13 - 02/23/2025 at which time she was seen by cardiology. She was hospitalized at that time for COVID-19 and treated for acute on chronic systolic heart failure. At some point, patient's Eliquis was decreased to 2.5 mg twice daily. She has had positive occult blood in the past with anemia and underwent colonoscopy in October with Dr. Hines that found tubular adenoma x 2 without active bleeding. Patient gives history that she came into the hospital because she did not have any energy, no interest in anything and was sleeping a lot. She also complains of shortness of breath with minimal activity, no orthopnea. Patient is poor historian. Blood pressure 121/62, heart rates in the 60s, pulse ox 98% on 6 L nasal cannula. Patient was also on CPAP earlier. Patient has been started on IV Lasix 40 mg every 12 hours. -EKG: Atrial paced rhythm. -Chest x-ray: Persistent left basilar airspace disease atelectasis or pneumonia. Persistent small left pleural effusion. -Gallbladder ultrasound: Gallbladder not visualized. Right kidney not visualize d. -CT head: No acute intracranial process. -Laboratory studies: Hemoglobin 7.9 repeat 7.7, platelet count 39, WBC 5.0. Sodium 122, potassium 4.5, BUN 65 and creatinine improved from 1.46-1.23. Lact ic acid 3.1 repeat 2.0. Troponins 0.087, 0.084, 0.084. Urinalysis negative for infection. Stool for occult blood positive. Acetone negative. Cepheid viral panel not detected. -Home cardiac medications: Eliquis 2.5 mg twice daily, atorvastatin 40 mg at bedtime, Farxiga 10 mg daily, Lasix 40 mg twice daily, losartan 12.5 mg daily, metolazone 2.5 mg daily, metoprolol succinate 50 mg in the morning and 25 mg at bedtime. -Echocardiogram performed 01/30/2025 at [facility] revealed suboptimal study, EF 40 to 45%, severe pulmonary hypertension. -Cardiac PCI performed 01/05/2021 to the mid diagonal 1 and ostial PDA. -Cardiovascular surgery with TAVR 11/04/2018. -Cardiovascular surgery with tissue AVR, tissue MVR, tricuspid valve repair 05/20/[address] [facility]. 03/10/2025 Patient is more alert clinically. She has a Enterococcus growing in her blood. She has also a decubitus ulcer on her back. She has history of multivalve her surgery and I am concerned about seeding. However she is on aggressive antibiotic therapy mentally she is more alert responsive to questions hemodynamically stable and no overt heart failure at this time. We will continue supportive care and current medical regimen. 03/11/2025 Patient examined this morning at the bedside. Patient currently denies chest pain or pressure. She denies shortness of breath. Vital signs are stable. 03/13/2025 Patient is seen and examined at bedside this a.m. She underwent a MELISSA yesterday which showed evidence of vegetation attached to the mitral plastering towards the atrial side suggestive of endocarditis. bp 113/65 hr 64 bpm 03/15/2025 Patient examined this morning at the bedside. She is currently sitting up in the chair. Patient's daughter is present. Patient is emotional this morning regarding everything going on with her health. Patient is currently wearing her home CPAP. Patient's hemoglobin yesterday was 5.3. She received 2 units RBCs. Repeat hemoglobin today 9.4. 03/16/2025 Patient examined this morning at the bedside. Patient states she is feeling better today. She denies chest pain or pressure. Denies shortness of breath. General surgery has been consulted and is planning for endoscopy on . 03/17/2025 Patient examined this morning at the bedside. Patient currently denies chest p ain or pressure. She denies shortness of breath. Patient is currently undergoing bowel prep for endoscopy tomorrow. Hemoglobin 9.2. 03/18/2025 Patient examined this morning at bedside. Patient currently denies chest pain or pressure. She denies shortness of breath. She is scheduled to undergo e ndoscopy today with general surgery. Hemoglobin today 8.9. 03/19/2025 Patient examined this morning at bedside. She is s/p EGD yesterday with no acute findings. Colonoscopy was canceled due to poor bowel prep. PHYSICAL EXAM: VITAL SIGNS: Reviewed. GENERAL: Well-developed in no acute distress. NECK: Supple. No JVD or thyromegaly LUNGS: Respirations even and unlabored. Lungs essentially clear to auscultation bilaterally. HEART: Regular rate and rhythm. S1 and S2 heard. EXTREMITIES: Normal range of motion. No clubbing or cyanosis. Peripheral pulses intact. 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, likely source from sacral ulcer stage II Generalized weakness most likely secondary to combination of hyponatremia, acute kidney injury, recent COVID Hyponatremia Acute kidney injury Recent COVID Pancytopenia Rule out sepsis Metabolic encephalopathy Acute on chronic heart failure with EF of 40 to 45% Valvular heart disease status post TAVR status post open aortic valve replacement, mitral valve replacement, tricuspid valve repair in May 2024 Paroxysmal atrial fibrillation, paced rhythm Hypertension Dyslipidemia Diabetes mellitus type 2 insulin requiring Hypothyroidism Coronary artery disease with previous stent to the mid diagonal 1 and ostial PDA Anemia with questionable GI bleed, stool for occult blood positive, status post 2 units RBCs 03/14/2025 PLAN: Anticoagulation has been discontinued during hospitalization secondary to anemia. Consider Watchman device on an outpatient basis Continue current cardiac medications including Lipitor, Bumex, metoprolol succinate, and Aldactone Daily weights, accurate intake and output, monitoring of kidney function Continue antibiotics per infectious disease Stable from a cardiac perspective Further recommendations pending patient course Nurse practitioner note has been reviewed by physician. Signing provider agrees with the documented findings, assessment, and plan of care documented by SOURCING CONSULTANT as a scribe. Objective - Vital Signs Vital signs: Vital Signs Temp 98.6 F 03/19/25 04:00 Pulse 77 03/19/25 04:00 Resp 16 03/19/25 04:00 BP 133/69 03/19/25 04:00 Pulse Ox 97 03/19/25 04:00 FiO2 Intake & Output 03/18/25 03/19/25 03/19/25 18:59 06:59 18:59 Intake Total 360 20 118 Output Total 2500 650 200 Balance -2140 -630 -82 Weight 125.6 kg Intake: IV 110 20 Invasive Line 4 10 Invasive Line 5 10 10 Intake, IV Titration 250 Amount Ampicillin 2,000 mg In 200 Sodium Chloride 0.9% 100 ml @ 200 mls/hr IVPB Q6H [facility] Rx#:[id number] cefTRIAXone 2 gm In 50 Dextrose 5% in Water 50 ml @ 100 mls/hr IVPB Q12H [facility] Rx#:[id number] Oral 118 Output: Urine 2500 650 200 Other: Voiding Method Indwelling Catheter Indwelling Catheter # Bowel Movements 2 1 2 - Labs CBC & Chem 7: 03/19/25 06:05 03/19/25 06:05 Labs: Abnormal Lab Results - Last 24 Hours (Table) 03/18/25 03/18/25 03/18/25 Range/Units 11:36 16:54 20:23 RBC (4.10-5.20) 10*6/uL Hgb (12.0-15.0) g/dL Hct (37.2-46.3) % MCHC (32.0-37.0) g/dL Plt Count (140-440) 10*3/uL Lymphocytes # (0.90-5.00) 10*3/uL Sodium (137-145) mmol/L Chloride (98-107) mmol/L Carbon Dioxide (22-30) mmol/L Glucose (74-99) mg/dL POC Glucose (mg/dL) 45 L* 114 H 210 H (70-110) mg/dL Calcium (8.4-10.2) mg/dL AST (14-36) U/L ALT (4-34) U/L Alkaline Phosphatase (38-126) U/L Total Protein (6.3-8.2) g/dL Albumin (3.5-5.0) g/dL 03/19/25 03/19/25 03/19/25 Range/Units 06:05 06:05 06:19 RBC 2.61 L (4.10-5.20) 10*6/uL Hgb 7.8 L (12.0-15.0) g/dL Hct 24.7 L (37.2-46.3) % MCHC 31.6 L (32.0-37.0) g/dL Plt Count 88 L (140-440) 10*3/uL Lymphocytes # 0.68 L (0.90-5.00) 10*3/uL Sodium 132 L (137-145) mmol/L Chloride 94 L (98-107) mmol/L Carbon Dioxide 33 H (22-30) mmol/L Glucose 185 H (74-99) mg/dL POC Glucose (mg/dL) 208 H (70-110) mg/dL Calcium 7.2 L (8.4-10.2) mg/dL AST 50 H (14-36) U/L ALT 35 H (4-34) U/L Alkaline Phosphatase 195 H (38-126) U/L Total Protein 6.0 L (6.3-8.2) g/dL Albumin 2.5 L (3.5-5.0) g/dL Microbiology - Last 24 Hours (Table) 03/13/25 05:50 Blood Culture - Final Blood
[2025-03-19 11:28] LABS: Glucose,Whole Blood 239 mg/dL (70-110)
--- NOTE | 2025-03-19 12:41 | P.PN ---
Subjective Progress Note Date: 03/19/25 SURGICAL PROGRESS NOTE CHIEF COMPLAINT: Endocarditis HISTORY OF PRESENT ILLNESS: Surgical service following regards to patient's anemia. Patient sitting up in bed comfortably. Denies any abdominal pain. Status post EGD that reported antral gastritis. And had a poor colon prep. Nursing staff reports stools are now brown in color. Hemoglobin 7.8. Patient seen and examined with Dr. Tolbert PHYSICAL EXAM: VITAL SIGNS: Reviewed. GENERAL: Well-developed in no acute distress. ABDOMEN: Soft. Nondistended. Nontender. NEUROLOGIC: Alert and oriented. Cranial nerves II through XII grossly intact. ASSESSMENT: 1. Anemia with melanotic stools, has required blood transfusion 2. Mitral valve endocarditis PLAN: -Discharge per medicine service -Continue PPI -Recommend outpatient follow-up for biopsy results with Dr. Tolbert -Surgical service will sign off. Please call with any questions or concerns. Physician Malted Milk Masher note has been reviewed by physician. Signing provider agrees with the documented findings, assessment, and plan of care. Objective - Vital Signs Vital signs: Vital Signs Temp 98.4 F 03/19/25 08:50 Pulse 73 03/19/25 08:50 Resp 16 03/19/25 08:50 BP 153/79 03/19/25 08:50 Pulse Ox 98 03/19/25 08:50 FiO2 Intake & Output 03/18/25 03/19/25 03/19/25 18:59 06:59 18:59 Intake Total 360 20 118 Output Total 2500 650 200 Balance -3350 630 -82 Weight 125.6 kg Intake: IV 110 20 Invasive Line 4 10 Invasive Line 5 10 10 Intake, IV Titration 250 Amount Ampicillin 2,000 mg In 200 Sodium Chloride 0.9% 100 ml @ 200 mls/hr IVPB Q6H [facility] Rx#:[id number] cefTRIAXone 2 gm In 50 Dextrose 5% in Water 50 ml @ 100 mls/hr IVPB Q12H [facility] Rx#:[id number] Oral 118 Output: Urine 2500 650 200 Other: Voiding Method Indwelling Catheter Indwelling Catheter Indwelling Catheter # Bowel Movements 2 1 2 - Labs CBC & Chem 7: 03/19/25 06:05 03/19/25 06:05 Labs: Abnormal Lab Results - Last 24 Hours (Table) 03/18/25 03/18/25 03/19/25 Range/Units 16:54 20:23 06:05 RBC 2.61 L (4.10-5.20) 10*6/uL Hgb 7.8 L (12.0-15.0) g/dL Hct 24.7 L (37.2-46.3) % MCHC 31.6 L (32.0-37.0) g/dL Plt Count 88 L (140-440) 10*3/uL Lymphocytes # 0.68 L (0.90-5.00) 10*3/uL Sodium (137-145) mmol/L Chloride (98-107) mmol/L Carbon Dioxide (22-30) mmol/L Glucose (74-99) mg/dL POC Glucose (mg/dL) 114 H 210 H (70-110) mg/dL Calcium (8.4-10.2) mg/dL AST (14-36) U/L ALT (4-34) U/L Alkaline Phosphatase (38-126) U/L Total Protein (6.3-8.2) g/dL Albumin (3.5-5.0) g/dL 03/19/25 03/19/25 03/19/25 Range/Units 06:05 06:19 11:26 RBC (4.10-5.20) 10*6/uL Hgb (12.0-15.0) g/dL Hct (37.2-46.3) % MCHC (32.0-37.0) g/dL Plt Count (140-440) 10*3/uL Lymphocytes # (0.90-5.00) 10*3/uL Sodium 132 L (137-145) mmol/L Chloride 94 L (98-107) mmol/L Carbon Dioxide 33 H (22-30) mmol/L Glucose 185 H (74-99) mg/dL POC Glucose (mg/dL) 208 H 239 H (70-110) mg/dL Calcium 7.2 L (8.4-10.2) mg/dL AST 50 H (14-36) U/L ALT 35 H (4-34) U/L Alkaline Phosphatase 195 H (38-126) U/L Total Protein 6.0 L (6.3-8.2) g/dL Albumin 2.5 L (3.5-5.0) g/dL Microbiology - Last 24 Hours (Table) 03/13/25 05:50 Blood Culture - Final Blood
[2025-03-19 12:43] VITALS: BP 97/41; PULSE 113; TEMP 98.9
--- NOTE | 2025-03-19 14:17 | P.DS ---
Providers Date of admission: 03/08/25 05:13 Attending physician: Jensen Gaines MD Consults: 03/08/25 05:10 Consult Physician Urgent Consulting Provider: [facility] Consult Reason/Comments: CHF Do you want consulting provider notified?: Yes, Notify in am 03/08/25 05:13 Consult Physician Urgent Consulting Provider: Karan Mcgowan Consult Reason/Comments: Hyponatremia Do you want consulting provider notified?: Yes, Notify in am 03/08/25 10:44 Consult Physician Urgent Consulting Provider: Mahin Armendariz Consult Reason/Comments: infection/ wounds Do you want consulting provider notified?: Yes Primary care physician: Ibrahima Hua MD Hospital Course: Final Diagnosis - Sepsis and enterococcus bacteremia POA as blood culture collected on admission positive for enterococcus, status post MELISSA which was positive for mitral valve endocarditis -Acute blood loss anemia -GI bleed -Stage II sacral ulcer - Congestive heart failure chronic systolic function with acute exacerbation. - Hypervolemic hyponatremia, improving - Acute on chronic hypoxic respiratory failure secondary to pulmonary edema. on 5L of oxygen outpatient - Type 2 diabetes mellitus uncontrolled with elevated blood sugars - History of atrial fibrillation: Patient is presently rate controlled patient probably has paroxysmal A-fib on Eliquis at home - History of GI bleed - History of pancytopenia follows with hematology outpatient this is because of the slow GI bleed - History of bioprosthetic aortic valve replacement - Sleep apnea on CPAP machine -Transaminitis likely from sepsis improving -Hypothyroidism - Morbid obesity with a BMI of 46.5 Full Code Discharge Disposition Patient is stable for discharge to [facility]. Patient has PICC line in place. Patient to continue IV antibiotics for 5 week course with IV rocephin and IV unasyn. Cardiac medications and diuretics have been adjusted. Follow up with Dr Armendariz on Discharge in 1 week. Patient to continue pressure offloading on the stage 2 sacral wound and also to continue zinc barrier paste to the ulcer twice daily. Monitor electrolytes and renal function. Hospital Course This is a 80-year-old female with history of mitral valve replacement congestive heart failure EF of around 40 to 45% came in with complaints of generalized weakness. Patient is found to be hyponatremic. Patient is on 6 L of oxygen usually uses 4 to 5 L at home. Patient does have history of obstructive sleep apnea for which patient is on BiPAP at home. Patient had no fever or chills patient does not have any leukocytosis patient does not have any complaints of dysuria suprapubic pain. Urine was not abnormal on admission,; chest x-ray showed some nonspecific infiltrate not consistent with pneumonia. BNP is elevated to 8000 patient's previous BNP was 5000. Patient does have bilateral lower extremity pedal edema. Patient does have stage II decubitus ulcers does not appear to be infected. troponin were minimally elevated. patient was admitted to the ICU requiring small dose of levophed on admission with concern for sepsis and septic shock. Found to have Enterococcus faecalis bacteremia with concern for possible endocarditis as patient does have a history of valvular replacement and repair echocardiogram was completed to be any noted vegetation. However patient did have persistent Enterococcus bacteremia. She underwent MELISSA on March 12, 2020 with findings of infective endocarditis on the mitral valve. She has been continued on antibiotics in the form of Unasyn and Rocephin infectious disease recommending 5 weeks of continued IV antibiotic therapy and PICC line in place. Patient has been transition from IV diuretics to oral Bumex daily. There was concern for possible GI bleed due to a drop in hemoglobin. Underwent upper endoscopy with findings of antral gastritis with poor bowel prep patient did have a large normal bowel movement in the endo lab which was nonbloody. Colonoscopy was canceled. Hemoglobin has remained stable at 7.9 and patient has received 2 units of blood this hospital stay. She is awake alert and oriented and has been moved out of the intensive care unit. She is having no active complaints today. She is cleared for discharge to [facility]. Please see medication reconciliation for a list of current medications. Thank you for allowing us to participate in the care of this patient. The impression and plan of care has been dictated by Leti Robertson, Nurse Practitioner as directed. Dr. Stefan MD I have performed a history and physical examination and medical decision making of this patient, discussed the same with the dictator, and agree with the dictators assessment and plan as written, documented as a scribe. Based on total visit time, I have performed more than 50% of this visit. Patient Condition at Discharge: Stable Plan - Discharge Summary Discharge Rx Participant: No New Discharge Prescriptions: New cefTRIAXone [Rocephin] 2 gm IVPB Q12H #70 each Ampicillin Sodium 2 gm IVPB Q6HR #140 each Spironolactone [Aldactone] 12.5 mg PO DAILY tab Bumetanide [BUMEX] 1 mg PO DAILY #0 tab INSULIN LISPRO (HumaLOG) [HumaLOG] 20 unit SQ AC-TID each Loratadine [Claritin] 10 mg PO DAILY tab Continue Levothyroxine Sodium [Levoxyl] 175 mcg PO DAILY Calcium Carbonate [Calcium] 600 mg PO BID Dapagliflozin Propanediol [Farxiga] 10 mg PO DAILY #30 tab FLUoxetine HCL [PROzac] 10 mg PO DAILY Insulin Glargine,Hum.rec.anlog [Lantus Solostar Pen] 20 units SQ HS Atorvastatin [Lipitor] 40 mg PO HS #30 tab Metoprolol Succinate (ER) [Toprol XL] 25 mg PO HS #30 tab Acetaminophen Tab [Tylenol] 650 mg PO Q6HR PRN tab PRN Reason: Fever And/ Or Pain Zinc Sulfate [Orazinc] 220 mg PO DAILY 15 Days #15 cap Ascorbic Acid [Vitamin C] 500 mg PO DAILY #30 tab Cholecalciferol [Vitamin D3 (125 Mcg = 5000 Iu)] 125 mcg PO DAILY #30 tab Discontinued Metoprolol Succinate (ER) [Toprol XL] 50 mg PO DAILY tab Insulin Aspart [NovoLOG Flexpen] 40 units SQ TID-W/MEALS metOLazone [Zaroxolyn] 2.5 mg PO DAILY #30 tab Losartan [Cozaar] 12.5 mg PO DAILY 30 Days #15 tab Furosemide [Lasix] 40 mg PO BID@0900,1600 tab Apixaban [Eliquis] 5 mg PO BID Discharge Medication List Levothyroxine Sodium [Levoxyl] 175 mcg PO DAILY 10/25/20 [History] FLUoxetine HCL [PROzac] 10 mg PO DAILY 10/08/24 [History] Insulin Glargine,Hum.rec.anlog [Lantus Solostar Pen] 20 units SQ HS 10/08/24 [History] Calcium Carbonate [Calcium] 600 mg PO BID 01/28/25 [History] Acetaminophen Tab [Tylenol] 650 mg PO Q6HR PRN tab 02/05/25 [Rx] Atorvastatin [Lipitor] 40 mg PO HS #30 tab 02/05/25 [Rx] Dapagliflozin Propanediol [Farxiga] 10 mg PO DAILY #30 tab 02/05/25 [Rx] Metoprolol Succinate (ER) [Toprol XL] 25 mg PO HS #30 tab 02/05/25 [Rx] Ascorbic Acid [Vitamin C] 500 mg PO DAILY #30 tab 02/23/25 [Rx] Cholecalciferol [Vitamin D3 (125 Mcg = 5000 Iu)] 125 mcg PO DAILY #30 tab 02/23/25 [Rx] Zinc Sulfate [Orazinc] 220 mg PO DAILY 15 Days #15 cap 02/23/25 [Rx] Ampicillin Sodium 2 gm IVPB Q6HR #140 each 03/19/25 [Rx] Bumetanide [BUMEX] 1 mg PO DAILY #0 tab 03/19/25 [Rx] INSULIN LISPRO (HumaLOG) [HumaLOG] 20 unit SQ AC-TID each 03/19/25 [Rx] Loratadine [Claritin] 10 mg PO DAILY tab 03/19/25 [Rx] Spironolactone [Aldactone] 12.5 mg PO DAILY tab 03/19/25 [Rx] cefTRIAXone [Rocephin] 2 gm IVPB Q12H #70 each 03/19/25 [Rx] Follow up Appointment(s)/Referral(s): Ibrahima Hua MD [Primary Care Provider] - 1-2 days Mahin Armendariz MD [STAFF PHYSICIAN] - 1 Week Negrito Tolbert MD [STAFF PHYSICIAN] - 10 Days Ambulatory/Diagnostic Orders: Basic Metabolic Panel [LAB.AMB] Location: None Selected C Reactive Protein [LAB.AMB] Location: None Selected Complete Blood Count w/diff [LAB.AMB] Location: None Selected Erythrocyte Sedimentation Rate [LAB.AMB] Location: None Selected Activity/Diet/Wound Care/Special Instructions: DC to [facility] Continue 5 weeks of IV antibiotic therapy through PICC line Follow up with Dr Armendariz in 1 week Discontinue eliquis on DC and follow up with Cardiology regarding Watchmen procedure Discharge Disposition: TRANSFER TO SNF/ECF
--- NOTE | 2025-03-19 16:57 | P.PN ---
Subjective Patient is seen for follow-up for acute kidney injury. Labs have improved with serum creatinine down to 0.8 Sodium is stable at 132 No significant complaints. Possible discharge today stable at Objective - Vital Signs Vital signs: Vital Signs Temp 98.9 F 03/19/25 12:10 Pulse 113 H 03/19/25 12:10 Resp 16 03/19/25 12:10 BP 97/41 03/19/25 12:10 Pulse Ox 100 03/19/25 12:10 FiO2 Intake & Output 03/18/25 03/19/25 03/19/25 18:59 06:59 18:59 Intake Total 360 20 236 Output Total 2500 650 200 Balance -2140 -630 36 Weight 125.6 kg Intake: IV 110 20 Invasive Line 4 10 Invasive Line 5 10 10 Intake, IV Titration 250 Amount Ampicillin 2,000 mg In 200 Sodium Chloride 0.9% 100 ml @ 200 mls/hr IVPB Q6H [facility] Rx#:[id number] cefTRIAXone 2 gm In 50 Dextrose 5% in Water 50 ml @ 100 mls/hr IVPB Q12H [facility] Rx#:[id number] Oral 236 Output: Urine 2500 650 200 Other: Voiding Method Indwelling Catheter Indwelling Catheter Indwelling Catheter # Bowel Movements 2 1 2 - Exam Patient is awake, comfortable, no acute distress Maintained on CPAP Examination of the heart S1 and S2 Examination of the lungs decreased breath sounds at the bases Abdomen is soft obese nontender Examination of lower extremities shows trace edema HAND CLOTH FOLDER exam grossly intact - Labs CBC & Chem 7: 03/19/25 06:05 03/19/25 06:05 Labs: Abnormal Lab Results - Last 24 Hours (Table) 03/18/25 03/18/25 03/19/25 Range/Units 16:54 20:23 06:05 RBC 2.61 L (4.10-5.20) 10*6/uL Hgb 7.8 L (12.0-15.0) g/dL Hct 24.7 L (37.2-46.3) % MCHC 31.6 L (32.0-37.0) g/dL Plt Count 88 L (140-440) 10*3/uL Lymphocytes # 0.68 L (0.90-5.00) 10*3/uL Sodium (137-145) mmol/L Chloride (98-107) mmol/L Carbon Dioxide (22-30) mmol/L Glucose (74-99) mg/dL POC Glucose (mg/dL) 114 H 210 H (70-110) mg/dL Calcium (8.4-10.2) mg/dL AST (14-36) U/L ALT (4-34) U/L Alkaline Phosphatase (38-126) U/L Total Protein (6.3-8.2) g/dL Albumin (3.5-5.0) g/dL 03/19/25 03/19/25 03/19/25 Range/Units 06:05 06:19 11:26 RBC (4.10-5.20) 10*6/uL Hgb (12.0-15.0) g/dL Hct (37.2-46.3) % MCHC (32.0-37.0) g/dL Plt Count (140-440) 10*3/uL Lymphocytes # (0.90-5.00) 10*3/uL Sodium 132 L (137-145) mmol/L Chloride 94 L (98-107) mmol/L Carbon Dioxide 33 H (22-30) mmol/L Glucose 185 H (74-99) mg/dL POC Glucose (mg/dL) 208 H 239 H (70-110) mg/dL Calcium 7.2 L (8.4-10.2) mg/dL AST 50 H (14-36) U/L ALT 35 H (4-34) U/L Alkaline Phosphatase 195 H (38-126) U/L Total Protein 6.0 L (6.3-8.2) g/dL Albumin 2.5 L (3.5-5.0) g/dL Microbiology - Last 24 Hours (Table) 03/13/25 05:50 Blood Culture - Final Blood Assessment and Plan Assessment: 1. Acute kidney injury secondary to ATN secondary to hypotension. Also concern for cardiorenal syndrome. Creatinine 1.46 on admission - 0.8 now. UA fairly benign. 2. Chronic kidney disease stage IIIa with baseline creatinine 1.2-1.3 secondary to diabetic kidney disease. 3. Volume overload. On Lasix. Improved. 4. Hyponatremia, hypervolemic. Also component of hypertonicity from hyperglycemia. Improving. Urine sodium less than 20 and urine osmolality 417. 5. Diabetes mellitus. 6. Anemia. Rule out iron deficiency. Questionable GI bleed. Stool for occult blood positive. Packed RBCs transfusion for hemoglobin of 5.3 on 03/14/2025. 7. Acute on chronic systolic CHF ejection fraction of 40 to 45% with severe pulmonary hypertension, moderate tricuspid regurgitation. 8. Enterococcus bacteremia on antibiotics. 9. Hypokalemia from diuresis. Replaced. Plan: Continue off of IV fluids Continue with Bumex Repeat labs in a.m.
--- NOTE | 2025-03-22 18:58 | CDI ---
Documentation Clarification Form Date: 03/22/2025 06:42:29 PM From: Rupinder White Phone: Admit Date: 03/08/2025 05:13:00 AM Patient Name: Sheila Perales Visit Number: [id number] Discharge Date: 03/19/2025 04:44:00 PM ATTENTION: The Clinical Documentation Specialists (CDI) and [facility] Coding Staff appreciate your assistance in clarifying documentation. Please respond to the clarification below the line at the bottom and electronically sign. The CDI & [facility] Coding staff will review the response and follow-up if needed. Please note: Queries are made part of the Legal Health Record. If you have any questions, please contact the author of this message via ITS. Doctor/Provider: Negrito Tolbert The final diagnosis of the pathology report states chronic gastritis. Coding guidelines do not allow coding professionals to code based on pathology results; therefore, clarification is requested. 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 Antrum appeared mildlyinflamed. Treatment: EGD w Bx. Scope was then retroflexed A and the remainder of the stomach appeared normal. Antralgastritiswith poor bowel prep patient did have a large normal bowel movement in the endo lab which was nonbloody. Colonoscopywas canceled. Hemoglobin has remained stable at 7. 9 and patient has received 2u PRBC this hospital stay. She is awake alert and oriented and has been moved out of the intensive care unit. She is having no active complaints today. Please clarify if you agree with the pathology report diagnosis of chronic gastritis: [ ] Yes [ ] No [ ] Other (please specify) [ ] Unable to determine (Template Last Revised: January 2021) MTDD
--- NOTE | 2025-04-23 15:45 | CDI ---
Documentation Clarification Form Date: 04/23/2025 03:38:24 PM From: Rupinder White Phone: Admit Date: 03/08/2025 05:13:00 AM Patient Name: Sheila Perales Visit Number: [id number] Discharge Date: 03/19/2025 04:44:00 PM ATTENTION: The Clinical Documentation Specialists (CDI) and [facility] Coding Staff appreciate your assistance in clarifying documentation. Please respond to the clarification below the line at the bottom and electronically sign. The CDI & [facility] Coding staff will review the response and follow-up if needed. Please note: Queries are made part of the Legal Health Record. If you have any questions, please contact the author of this message via ITS. Doctor/Provider: Jensen Gaines The final diagnosis of the pathology report stateschronic gastritis. Coding guidelines do not allow coding professionals to code based on pathology results; therefore, clarification is requested. History/risk factors: 80yo F,Sepsisandenterococcus,MV endocarditis,ABLA, GIB, stage II sacralulcer, ACSHF, hypoN, ACHRF on O2, uncontrolled IDDMII,PAF, pancytopenia, MVannuloplasty,TAVR,MARILOU,postop hypothyroidism,morbid obesity Clinical Indicators: Antralgastritis, GIB. Antrum appeared mildlyinflamed. Treatment:EGDwBx. Scope was then retroflexed A and the remainder of the stomach appeared normal. Antralgastritiswith poor bowel prep patient did have a large normal bowel movement in the endo lab which was nonbloody. Colonoscopywas canceled. Hgb has remained stable at 7. 9 and patient hasreceived 2u PRBCthis hospital stay. She is awake alert and oriented and has been moved out of the intensive care unit. She is having no active complaints today. Please clarify if you agree with the pathology report diagnosis ofchronic gastritis: [x ] Yes [ ] No [ ] Other (please specify) [ ] Unable to determine (Template LastRevised: January 2021) MTDD
== END 2025-03-19 16:44 | DRG 871 ==
LOC: EC 23:20 → 3SCARD 03-08 05:13 → 2SICU 03-08 23:12 → 4SSUR 03-11 08:13 → 3SCARD 03-14 14:48
PROVIDERS: ADMIT Internal Medicine; ATTEND Internal Medicine
PROC: B24BZZ4 Ultrasonography of Heart with Aorta, Transesophageal (ICD-10-PCS; 2025-03-12)
PROC: B241YZZ Ultrasonography of Multiple Coronary Arteries using Other Contrast (ICD-10-PCS; principal; 2025-03-12 09:00)
PROC: 30233N1 Transfusion of Nonautologous Red Blood Cells into Peripheral Vein, Percutaneous Approach (ICD-10-PCS; 2025-03-14)
PROC: 02HV33Z Insertion of Infusion Device into Superior Vena Cava, Percutaneous Approach (ICD-10-PCS; 2025-03-15)
PROC: 0DB78ZX Excision of Stomach, Pylorus, Via Natural or Artificial Opening Endoscopic, Diagnostic (ICD-10-PCS; 2025-03-18)
DX: A41.81 Sepsis due to Enterococcus (principal); G93.41 Metabolic encephalopathy; I50.23 Acute on chronic systolic (congestive) heart failure; N17.0 Acute kidney failure with tubular necrosis; J96.21 Acute and chronic respiratory failure with hypoxia; I33.0 Acute and subacute infective endocarditis; K29.51 Unspecified chronic gastritis with bleeding; I27.22 Pulmonary hypertension due to left heart disease; D61.818 Other pancytopenia; I13.0 Hypertensive heart and chronic kidney disease with heart failure and stage 1 through stage 4 chronic kidney disease, or unspecified chronic kidney disease; E11.65 Type 2 diabetes mellitus with hyperglycemia; E66.01 Morbid (severe) obesity due to excess calories; N18.31 Chronic kidney disease, stage 3a; E89.0 Postprocedural hypothyroidism; Z68.42 Body mass index [BMI] 45.0-49.9, adult; E87.1 Hypo-osmolality and hyponatremia; T82.09XA Other mechanical complication of heart valve prosthesis, initial encounter; D62 Acute posthemorrhagic anemia; L89.152 Pressure ulcer of sacral region, stage 2; R65.20 Severe sepsis without septic shock; I48.0 Paroxysmal atrial fibrillation; E11.22 Type 2 diabetes mellitus with diabetic chronic kidney disease; Z79.4 Long term (current) use of insulin; E11.622 Type 2 diabetes mellitus with other skin ulcer; I08.1 Rheumatic disorders of both mitral and tricuspid valves; Z53.09 Procedure and treatment not carried out because of other contraindication; H91.90 Unspecified hearing loss, unspecified ear; I25.10 Atherosclerotic heart disease of native coronary artery without angina pectoris; E78.5 Hyperlipidemia, unspecified; G47.33 Obstructive sleep apnea (adult) (pediatric); E87.6 Hypokalemia; T50.2X5A Adverse effect of carbonic-anhydrase inhibitors, benzothiadiazides and other diuretics, initial encounter; Z99.81 Dependence on supplemental oxygen; Z95.3 Presence of xenogenic heart valve; Z79.01 Long term (current) use of anticoagulants; Z79.84 Long term (current) use of oral hypoglycemic drugs; Z95.5 Presence of coronary angioplasty implant and graft; Z79.890 Hormone replacement therapy; Z86.16 Personal history of COVID-19; Z95.0 Presence of cardiac pacemaker; Z79.899 Other long term (current) drug therapy; Z86.018 Personal history of other benign neoplasm; Y71.2 Prosthetic and other implants, materials and accessory cardiovascular devices associated with adverse incidents; Z96.653 Presence of artificial knee joint, bilateral; Z96.693 Finger-joint replacement, bilateral
CPT/HCPCS: 36415; 36573; 36600; 43239; 51702; 70450; 71045; 76705; 80048; 80053; 81003; 82009; 82272; 82728; 82747; 82803; 82805; 83540; 83550; 83605; 83735; 83880; 83930; 83935; 84100; 84132; 84300; 84443; 84484; 85025; 85027; 85610; 85730; 86850; 86870; 86880; 86900; 86901; 86902; 86920; 87040; 87077; 87186; 87636; 88305; 93005; 93308; 93312; 93320; 93325; 94760; 96365; 96366; 96367; 96375; 99291

== ENCOUNTER 2025-03-28 19:51 | Inpatient (IN) | payer MEDICARE ==
--- NOTE | 2025-03-28 20:25 | ED ---
Altered Mental Status HPI - General Source: patient, family, EMS Mode of arrival: EMS Limitations: altered mental status - History of Present Illness MD Complaint: altered mental status, confusion Onset/Timin -: days(s) Associated Symptoms: headaches, shortness of breath <AdryanKeeley - Last Filed: 03/29/25 00:32> - General Source: patient, family, EMS, RN notes reviewed, old records reviewed Limitations: altered mental status <Geovany Hutchinson - Last Filed: 04/06/25 19:43> - General Chief Complaint: Altered Mental Status Stated Complaint: Difficulty Breathing, AMS - History of Present Illness Initial Comments: Patient is a 80-year-old female with history of multiple cardiac valve replacement, systolic heart failure presenting for altered mental status and difficulty breathing. Daughter at bedside states that earlier today she noticed that patient was more confused, became lethargic later in the day, and Van sent her here. Of note she was recently discharged for acute/subacute endocarditis with a PICC line and IV Rocephin and Unasyn. Patient reporting a headache at this time. No chest pain, fever/chills, nausea/vomiting, hematuria, dysuria, melena/hematochezia. (Keeley Cornelius) This is a 80-year-old female to ER for evaluation of altered mental status exacerbated by difficulty breathing and confusion throughout the day with worsening symptoms (Geovany Hutchinson) - Related Data Home Medications Medication Instructions Recorded Confirmed Levothyroxine Sodium [Levoxyl] 175 mcg PO DAILY 10/25/20 03/29/25 FLUoxetine HCL [PROzac] 10 mg PO DAILY 10/08/24 03/29/25 Insulin Glargine,Hum.rec.anlog 20 units SQ HS 10/08/24 03/29/25 [Lantus Solostar Pen] Calcium Carbonate [Calcium] 600 mg PO BID 01/28/25 03/29/25 Apixaban [Eliquis] 5 mg PO BID 03/29/25 03/29/25 Bumetanide [BUMEX] 2 mg PO DAILY 03/29/25 03/29/25 Omeprazole [PriLOSEC] 20 mg PO DAILY 03/29/25 03/29/25 Saline Flush 0.9% 10 ml IV Q6H 03/29/25 03/29/25 Spironolactone [Aldactone] 25 mg PO DAILY 03/29/25 03/29/25 Previous Rx's Medication Instructions Recorded Acetaminophen Tab [Tylenol] 650 mg PO Q6HR PRN tab 02/05/25 Atorvastatin [Lipitor] 40 mg PO HS #30 tab 02/05/25 Dapagliflozin Propanediol [Farxiga] 10 mg PO DAILY #30 tab 02/05/25 Metoprolol Succinate (ER) [Toprol 25 mg PO HS #30 tab 02/05/25 XL] Ascorbic Acid [Vitamin C] 500 mg PO DAILY #30 tab 02/23/25 Cholecalciferol [Vitamin D3 (125 125 mcg PO DAILY #30 tab 02/23/25 Mcg = 5000 Iu)] Zinc Sulfate [Orazinc] 220 mg PO DAILY 15 Days #15 cap 02/23/25 Ampicillin Sodium 2 gm IVPB Q6HR #140 each 03/19/25 INSULIN LISPRO (HumaLOG) [HumaLOG] 20 unit SQ AC-TID each 03/19/25 Loratadine [Claritin] 10 mg PO DAILY tab 03/19/25 cefTRIAXone [Rocephin] 2 gm IVPB Q12H #70 each 03/19/25 Aspirin 81 mg PO DAILY tab 04/02/25 Allergies Allergy/AdvReac Type Severity Reaction Status Date / Time azithromycin Allergy Rash/Hives Verified 03/29/25 09:48 nitrofurantoin Allergy Rash/Hives Verified 03/29/25 09:48 macrocrystalline [From Macrodantin] phenazopyridine HCl Allergy Rash/Hives Verified 03/29/25 09:48 [From Pyridium] Review of Systems ROS Other: All systems not noted in ROS Statement are negative. <Keeley Cornelius - Last Filed: 03/29/25 00:32> ROS Other: All systems not noted in ROS Statement are negative. <Geovany Hutchinson - Last Filed: 04/06/25 19:43> ROS Statement: Those systems with pertinent positive or pertinent negative responses have been documented in the HPI. Past Medical History Past Medical History: Atrial Fibrillation, Diabetes Mellitus, Hearing Disorder / Deafness, Hyperlipidemia, Osteoarthritis (OA), Pneumonia, Sleep Apnea/CPAP/BIPAP, Thyroid Disorder Additional Past Medical History / Comment(s): USES BIPAP, AORTIC VALVE REPLA CEMENT , HX A-FIB WITH PNEUMONIA,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 HAD THYROID AND PARATHYROID REMOVAL. TOTAL LEFT KNEE REPLACEMENT, CATARACT RT EYE, CATARACT LEFT EYE SURGERY ,COLONOSCOPY, TVAR- 11/2018 , Aortic valve replacement 10/2018 Past Anesthesia/Blood Transfusion Reactions: No Reported Reaction Type of Cardiac Device: Permanent Pacemaker Device Placement Date:: PACEMAKER NOV 2017. Past Psychological History: No Psychological Hx Reported Smoking Status: Never smoker Past Alcohol Use History: None Reported Past Drug Use History: None Reported - Past Family History Daughter(s) Family Medical History: Deep Vein Thrombosis (DVT) Sister(s) Family Medical History: Cancer Additional Family Medical History / Comment(s): BREAST CANCER <Keeley Cornelius - Last Filed: 03/29/25 00:32> General Exam Limitations: altered mental status General appearance: alert, in no apparent distress Head exam: Present: atraumatic Eye exam: Present: normal appearance ENT exam: Present: mucous membranes moist Cardiovascular Exam: Present: regular rate, normal rhythm, systolic murmur GI/Abdominal exam: Present: soft, normal bowel sounds. Absent: distended, tenderness Extremities exam: Present: pedal edema (2+) Neurological exam: Present: alert, altered <AdryanKeeley - Last Filed: 03/29/25 00:32> Limitations: altered mental status General appearance: in distress Head exam: Present: atraumatic, normocephalic, normal inspection Eye exam: Present: normal appearance, PERRL, EOMI. Absent: scleral icterus, conjunctival injection, periorbital swelling ENT exam: Present: normal exam, mucous membranes dry Neck exam: Present: normal inspection. Absent: tenderness, meningismus, lymphadenopathy Respiratory exam: Present: respiratory distress, accessory muscle use, decreased breath sounds. Absent: wheezes, rales, rhonchi, stridor Cardiovascular Exam: Present: regular rate, normal rhythm, normal heart sounds. Absent: systolic murmur, diastolic murmur, rubs, gallop, clicks GI/Abdominal exam: Present: soft, normal bowel sounds. Absent: distended, tenderness, guarding, rebound, rigid Extremities exam: Present: normal inspection, full ROM, normal capillary refill. Absent: tenderness, pedal edema, joint swelling, calf tenderness Back exam: Present: normal inspection Neurological exam: Present: alert, oriented X3, CN II-XII intact Psychiatric exam: Present: normal affect, normal mood Skin exam: Present: warm, dry, intact, normal color. Absent: rash <Geovany Hutchinson - Last Filed: 04/06/25 19:43> Course <Geovany Hutchinson - Last Filed: 04/06/25 19:43> Vital Signs 03/28/25 03/28/25 03/28/25 19:53 20:03 22:17 Temperature 97.9 F Pulse Rate 68 68 Respiratory 20 20 18 Rate Blood Pressure 113/63 120/59 O2 Sat by Pulse 100 100 Oximetry 03/28/25 23:36 Temperature Pulse Rate 68 Respiratory 18 Rate Blood Pressure 120/59 O2 Sat by Pulse 100 Oximetry - Reevaluation(s) Reevaluation #1: Medical records reviewed (Geovany Hutchinson) Reevaluation #2: Symptoms unchanged throughout ER stay (Geovany Hutchinson) Medical Decision Making - Lab Data Result diagrams: 03/28/25 20:43 03/28/25 20:43 <Keeley Cornelius - Last Filed: 03/29/25 00:32> - Lab Data Result diagrams: 04/04/25 08:33 04/05/25 07:03 <Geovany Hutchinson - Last Filed: 04/06/25 19:43> - Medical Decision Making Was pt. sent in by a medical professional or institution (, PA, BOILER HOUSE OPERATOR, urgent care, hospital, or snf...) When possible be specific @ -[facility] Did you speak to anyone other than the patient for history (EMS, parent, family, police, friend...)? What history was obtained from this source @ -Daughter. She states that this morning she noticed that the patient was more confused and seemingly having a harder time breathing but still on her baseline 5-6 L of oxygen which she has been on since her repair/replacement in May. She is also reporting that this afternoon patient became more lethargic but is now more alert. She notes the patient was here for sepsis and was discharged about a week agorecords reviewed and patient had endocarditis and was discharged with PICC line and IV antibiotics. Daughter also mentions that she has a GI bleed that they are treating with blood and iron transfusions/infusions. She states that upon discharge the Eliquis was stopped by GI but cardiology unaware so Eliquis restarted yesterday. Daughter reports that some of the symptoms were similar to what happened when she was diagnosed with endocarditis. Did you review nursing and triage notes (agree or disagree)? Why? @ -I reviewed and agree with nursing and triage notes Were old charts reviewed (outside hosp., previous admission, EMS record, old EKG, old radiological studies, urgent care reports/EKG's, snf records)? Report findings @ -Medical records reviewed Differential Diagnosis? @ -Differential Altered Mental Status: Hypoglycemia, DKA, hypercapnia, ETOH, overdose, CO poisoning, trauma, myxedema coma, HTN encephalopathy, infection, encephalitis, psychosis, intercranial hemorrhage, hepatic encephalopathy, meningitis, CVA, this is not meant to be an all-inclusive list EKG interpreted by me (3pts min.). @ -Paced, rate 68 bpm X-rays interpreted by me (1pt min.). @ -Cardiomegaly, bilateral perihilar opacities CT interpreted by me (1pt min.). @ -No intracranial mass or hemorrhage U/S interpreted by me (1pt. min.). @ -None done What testing was considered but not performed or refused? (CT, X-rays, U/S, l abs)? Why? @ -None What meds were considered but not given or refused? Why? @ -None Did you discuss the management of the patient with other professionals (professionals i.e. , PA, BOILER HOUSE OPERATOR, lab, RT, psych nurse, licensed master social worker, brush washer, teacher, sba business development officer, case repairer)? Give summary @ -No Was smoking cessation discussed for >3mins.? @ -No Was critical care preformed (if so, how long)? @ -No Were there social determinants of health that impacted care today? How? (Homelessness, low income, unemployed, alcoholism, drug addiction, transportation, low edu. Level, literacy, decrease access to med. care, group home, rehab)? @ -No Was there de-escalation of care discussed even if they declined (Discuss DNR or withdrawal of care, Hospice)? DNR status @ -No What co-morbidities impacted this encounter? (DM, HTN, Smoking, COPD, CAD, Cancer, CVA, ARF, Chemo, Hep., AIDS, mental health diagnosis, sleep apnea, morbid obesity)? @ -DM, CHF Was patient admitted / discharged? Hospital course, mention meds given and route, prescriptions, significant lab abnormalities, going to OR and other pertinent info. @ -Patient is a 80-year-old female sent in by [facility] for 1 day of altered mental status and reported difficulty breathing. Patient alert and oriented to self. CBC, CMP, BNP, troponin, VBG, urinalysis, ammonia, TSH, lactic acid, chest x-ray, head CT obtained. Troponin 0.281heparin drip started. Urinalysis positive for UTI. Dr. Hutchinson discussed admission with [facility] and patient was accepted. Undiagnosed new problem with uncertain prognosis? @ -No Drug Therapy requiring intensive monitoring for toxicity (Heparin, Nitro, Insulin, Cardizem)? @ -No Were any procedures done? @ -No Diagnosis/symptom? @ -Altered mental status, UTI, CHF Acute, or Chronic, or Acute on Chronic? @ -Acute, acute on chronic Uncomplicated (without systemic symptoms) or Complicated (systemic symptoms)? @ -Complicated Side effects of treatment? @ -No Exacerbation, Progression, or Severe Exacerbation? @ -No Poses a threat to life or bodily function? How? (Chest pain, [place], [place], pneumonia, PE, COPD, DKA, ARF, appy, cholecystitis, CVA, Diverticulitis, Homicidal, Suicidal, threat to staff... and all critical care pts) @ -Yes (Keeley Cornelius) 80 female to ER for altered mental status will be admitted in acute CHF exacerbation, significant UTI elevated troponin. I personally saw the patient and performed the critical portion of the service. I discussed the patient care with the Dr Cornelius. I directed management, care planning and final disposition of the patient. This includes, but not limited to, review of all lab work, radiological studies, EKG's, consultations, vital signs, and nursing notes. EKG interpreted by me (3pts min.) @ [as above] X-Rays interpreted by me (1 pt min.) @ [Yes positive for CHF] CT interpreted by me ( 1pt min.) @ [none] U/S interpreted by me (1 pt min.) @ [none] Critical care time of [31] minutes excluding separately billable procedures was spent in conjunction with critical care activities provided by the Resident and Attending simultaneously. I was present during [no procedures] for all critical portions of the procedure and as immediately available to furnish service during the entire procedure. (Geovany Hutchinson) - Lab Data Lab Results 03/28/25 03/28/25 03/28/25 Range/Units 20:40 20:43 20:43 WBC 6.56 (4.50-10.00) 10*3/uL RBC 2.41 L (4.10-5.20) 10*6/uL Hgb 7.4 L (12.0-15.0) g/dL Hct 22.5 L (37.2-46.3) % MCV 93.4 (80.0-97.0) fL MCH 30.7 (27.0-32.0) pg MCHC 32.9 (32.0-37.0) g/dL Plt Count 109 L (140-440) 10*3/uL MPV 9.8 (9.5-12.2) fL Immature Gran % (Auto) 0.5 % Neutrophils % 79.0 % Lymphocytes % 11.6 % Monocytes % 6.4 % Eosinophils % 2.0 % Basophils % 0.5 % Immature Gran # 0.03 (0.00-0.04) 10*3/uL Neutrophils # 5.19 (1.80-7.70) 10*3/uL Lymphocytes # 0.76 L (0.90-5.00) 10*3/uL Monocytes # 0.42 (0.20-1.00) 10*3/uL Eosinophils # 0.13 (0.04-0.35) 10*3/uL Basophils # 0.03 (0.00-0.10) 10*3/uL PT 11.8 (10.0-12.5) sec INR 1.1 (<1.2) APTT 24.0 (22.0-30.0) sec VBG pH (7.31-7.41) VBG pCO2 (37-51) mmHg VBG HCO3 (24-28) mmol/L Sodium 133 L (137-145) mmol/L Potassium 3.7 (3.5-5.1) mmol/L Chloride 94 L (98-107) mmol/L Carbon Dioxide 31 H (22-30) mmol/L Anion Gap 8 mmol/L BUN 26 H (7-17) mg/dL Creatinine 1.19 H (0.52-1.04) mg/dL Est GFR (CKD-EPI)AfAm 50 (>60 ml/min/1.73 sqM) Est GFR (CKD-EPI)NonAf 44 (>60 ml/min/1.73 sqM) Glucose 158 H (74-99) mg/dL Plasma Lactic Acid Jez (0.7-2.0) mmol/L Calcium 8.5 (8.4-10.2) mg/dL Total Bilirubin 0.5 (0.2-1.3) mg/dL AST 34 (14-36) U/L ALT 21 (4-34) U/L Alkaline Phosphatase 214 H (38-126) U/L Ammonia (<30) umol/L Troponin I (0.000-0.034) ng/mL NT-Pro-B Natriuret Pep 6420 pg/mL Total Protein 6.3 (6.3-8.2) g/dL Albumin 2.8 L (3.5-5.0) g/dL TSH 10.100 H (0.465-4.680) mIU/L Free T4 1.04 (0.78-2.19) ng/dL Urine Color Urine Appearance (Clear) Urine pH (5.0-8.0) Ur Specific [place] (1.001-1.035) Urine Protein (Negative) Urine Glucose (UA) (Negative) Urine Ketones (Negative) Urine Blood (Negative) Urine Nitrite (Negative) Urine Bilirubin (Negative) Urine Urobilinogen (<2.0) mg/dL Ur Leukocyte Esterase (Negative) Urine RBC (0-5) /hpf Urine WBC (0-5) /hpf Urine WBC Clumps (None) /hpf Ur Squamous Epith Cells (0-4) /hpf Urine Mucus (None) /hpf Urine Yeast (Budding) (None) /hpf Urine Legionella Ag (Negative) 03/28/25 03/28/25 03/28/25 Range/Units 20:43 20:43 20:43 WBC (4.50-10.00) 10*3/uL RBC (4.10-5.20) 10*6/uL Hgb (12.0-15.0) g/dL Hct (37.2-46.3) % MCV (80.0-97.0) fL MCH (27.0-32.0) pg MCHC (32.0-37.0) g/dL Plt Count (140-440) 10*3/uL MPV (9.5-12.2) fL Immature Gran % (Auto) % Neutrophils % % Lymphocytes % % Monocytes % % Eosinophils % % Basophils % % Immature Gran # (0.00-0.04) 10*3/uL Neutrophils # (1.80-7.70) 10*3/uL Lymphocytes # (0.90-5.00) 10*3/uL Monocytes # (0.20-1.00) 10*3/uL Eosinophils # (0.04-0.35) 10*3/uL Basophils # (0.00-0.10) 10*3/uL PT (10.0-12.5) sec INR (<1.2) APTT (22.0-30.0) sec VBG pH 7.42 H (7.31-7.41) VBG pCO2 51 (37-51) mmHg VBG HCO3 33 H (24-28) mmol/L Sodium (137-145) mmol/L Potassium (3.5-5.1) mmol/L Chloride (98-107) mmol/L Carbon Dioxide (22-30) mmol/L Anion Gap mmol/L BUN (7-17) mg/dL Creatinine (0.52-1.04) mg/dL Est GFR (CKD-EPI)AfAm (>60 ml/min/1.73 sqM) Est GFR (CKD-EPI)NonAf (>60 ml/min/1.73 sqM) Glucose (74-99) mg/dL Plasma Lactic Acid Jez 1.5 (0.7-2.0) mmol/L Calcium (8.4-10.2) mg/dL Total Bilirubin (0.2-1.3) mg/dL AST (14-36) U/L ALT (4-34) U/L Alkaline Phosphatase (38-126) U/L Ammonia 23 (<30) umol/L Troponin I 0.231 H* (0.000-0.034) ng/mL NT-Pro-B Natriuret Pep pg/mL Total Protein (6.3-8.2) g/dL Albumin (3.5-5.0) g/dL TSH (0.465-4.680) mIU/L Free T4 (0.78-2.19) ng/dL Urine Color Urine Appearance (Clear) Urine pH (5.0-8.0) Ur Specific [place] (1.001-1.035) Urine Protein (Negative) Urine Glucose (UA) (Negative) Urine Ketones (Negative) Urine Blood (Negative) Urine Nitrite (Negative) Urine Bilirubin (Negative) Urine Urobilinogen (<2.0) mg/dL Ur Leukocyte Esterase (Negative) Urine RBC (0-5) /hpf Urine WBC (0-5) /hpf Urine WBC Clumps (None) /hpf Ur Squamous Epith Cells (0-4) /hpf Urine Mucus (None) /hpf Urine Yeast (Budding) (None) /hpf Urine Legionella Ag (Negative) 03/28/25 03/28/25 Range/Units 21:50 21:50 WBC (4.50-10.00) 10*3/uL RBC (4.10-5.20) 10*6/uL Hgb (12.0-15.0) g/dL Hct (37.2-46.3) % MCV (80.0-97.0) fL MCH (27.0-32.0) pg MCHC (32.0-37.0) g/dL Plt Count (140-440) 10*3/uL MPV (9.5-12.2) fL Immature Gran % (Auto) % Neutrophils % % Lymphocytes % % Monocytes % % Eosinophils % % Basophils % % Immature Gran # (0.00-0.04) 10*3/uL Neutrophils # (1.80-7.70) 10*3/uL Lymphocytes # (0.90-5.00) 10*3/uL Monocytes # (0.20-1.00) 10*3/uL Eosinophils # (0.04-0.35) 10*3/uL Basophils # (0.00-0.10) 10*3/uL PT (10.0-12.5) sec INR (<1.2) APTT (22.0-30.0) sec VBG pH (7.31-7.41) VBG pCO2 (37-51) mmHg VBG HCO3 (24-28) mmol/L Sodium (137-145) mmol/L Potassium (3.5-5.1) mmol/L Chloride (98-107) mmol/L Carbon Dioxide (22-30) mmol/L Anion Gap mmol/L BUN (7-17) mg/dL Creatinine (0.52-1.04) mg/dL Est GFR (CKD-EPI)AfAm (>60 ml/min/1.73 sqM) Est GFR (CKD-EPI)NonAf (>60 ml/min/1.73 sqM) Glucose (74-99) mg/dL Plasma Lactic Acid Jez (0.7-2.0) mmol/L Calcium (8.4-10.2) mg/dL Total Bilirubin (0.2-1.3) mg/dL AST (14-36) U/L ALT (4-34) U/L Alkaline Phosphatase (38-126) U/L Ammonia (<30) umol/L Troponin I (0.000-0.034) ng/mL NT-Pro-B Natriuret Pep pg/mL Total Protein (6.3-8.2) g/dL Albumin (3.5-5.0) g/dL TSH (0.465-4.680) mIU/L Free T4 (0.78-2.19) ng/dL Urine Color Light Yellow Urine Appearance Cloudy H (Clear) Urine pH 5.5 (5.0-8.0) Ur Specific [place] 1.018 (1.001-1.035) Urine Protein 1+ H (Negative) Urine Glucose (UA) 4+ H (Negative) Urine Ketones Negative (Negative) Urine Blood Moderate H (Negative) Urine Nitrite Negative (Negative) Urine Bilirubin Negative (Negative) Urine Urobilinogen <2.0 (<2.0) mg/dL Ur Leukocyte Esterase Large H (Negative) Urine RBC 175 H (0-5) /hpf Urine WBC >182 H (0-5) /hpf Urine WBC Clumps Many H (None) /hpf Ur Squamous Epith Cells <1 (0-4) /hpf Urine Mucus Rare H (None) /hpf Urine Yeast (Budding) Moderate H (None) /hpf Urine Legionella Ag Negative (Negative) Critical Care Time Critical Care Time: Yes Total Critical Care Time: 31 <Geovany Hutchinson - Last Filed: 04/06/25 19:43> Disposition Is patient prescribed a controlled substance at d/c from ED?: No <Keeley Cornelius - Last Filed: 03/29/25 00:32> <Geovany Hutchinson - Last Filed: 04/06/25 19:43> Clinical Impression: UTI (urinary tract infection), Altered mental status, CHF (congestive heart failure), Palpitations, Weakness, Shortness of breath, Coronary artery disease, Atrial fibrillation, Elevated troponin Disposition: ADMITTED IP TO THIS HOSP Condition: Serious
--- NOTE | 2025-03-28 20:51 | XR ---
EXAMINATION TYPE: XR chest 1V portable DATE OF EXAM: 03/28/2025 8:41 PM COMPARISON: Multiple radiographs, with the most recent on 03/15/2025 TECHNIQUE: XR chest 1V portable Portable AP radiograph of the chest. CLINICAL INDICATION:Female, 80 years old with history of whitney; FINDINGS: Lungs/Pleura: There is no evidence of pleural effusion or pneumothorax. Increased bilateral perihilar opacities and left basilar opacity. Heart/mediastinum: Cardiomediastinal silhouette is enlarged and stable. Atherosclerotic calcificatio ns are seen in the aorta. Two lead cardiac conduction device overlying the left hemithorax with lead tips projecting over the right ventricle and right atrium. Musculoskeletal: No acute osseous pathology. Midline sternotomy wires are noted and stable. Aortic va lvular repair changes. Right shoulder arthropathy. Other: Right PICC line again demonstrated with tip in the region of the brachiocephalic superior vena cava. IMPRESSION: Cardiomegaly with bilateral perihilar opacities and left basilar opacity which may represent pulmonar y edema from CHF exacerbation versus multifocal pneumonia. Correlate clinically. [facility], , 03/28/2025 8:49 PM
[2025-03-28 21:01] LABS: VBG PH 7.42 (7.31-7.41)
--- NOTE | 2025-03-28 21:05 | CT ---
EXAMINATION TYPE: CT brain wo con CT DLP: 1144.9 mGycm, Automated exposure control for dose reduction was used. DATE OF EXAM: 03/28/2025 8:56 PM COMPARISON: CT brain 03/08/2025 CLINICAL INDICATION:Female, 80 years old with history of ams, Pt arrives from [facility] with complaints of SOB and AMS, AOx self On 5-6L at baseline. TECHNIQUE: Brain: Multiple axial CT images of the brain were obtained without IV contrast. . Coronal and sagitta l reformats reviewed. FINDINGS: Brain: Extra-axial spaces: No abnormal extra-axial fluid collections. Ventricular system: Within normal limits Cerebral parenchyma: Cerebral atrophy. No acute intraparenchymal hemorrhage or mass effect. The camejo -white junction is well differentiated. Subtle hypodense region within the left thalamus. Scattered h ypoattenuating areas are seen within the periventricular and subcortical white matter. Cerebellum: Unremarkable. Mass effect: No evidence of midline shift. Intracranial vasculature: Atherosclerotic calcifications of the intracranial vessels. Soft tissues: Normal. Calvarium/osseous structures: No depressed skull fracture. Benign hyperostosis frontalis noted. Paranasal sinuses and mastoid air cells: The mastoid air cells are clear. Mild mucosal thickening in the inferior right maxillary sinus. The remaining paranasal sinuses are clear. Nasal septal deviation to the left. Visualized orbits: Bilateral aphakia IMPRESSION: 1. New lacunar infarct within the left thalamus from prior CT 03/08/2025. No evidence for intracranial hemorrhage. 2. Nonspecific white matter changes, likely secondary to chronic small vessel ischemic disease. [facility], , 03/28/2025 9:03 PM
[2025-03-28 21:15] LABS: Basophils # (A) 0.03 10*3/uL (0.00-0.10); Basophils % (A) 0.5 %; Eosinophils # (A) 0.13 10*3/uL (0.04-0.35); HCT 22.5 % (37.2-46.3); HGB 7.4 g/dL (12.0-15.0); Lymphocytes # (A) 0.76 10*3/uL (0.90-5.00); Lymphocytes % (A) 11.6 %; MCH 30.7 pg (27.0-32.0); MCHC 32.9 g/dL (32.0-37.0); MCV 93.4 fL (80.0-97.0); Mean Platelet Volume 9.8 fL (9.5-12.2); Monocytes # (A) 0.42 10*3/uL (0.20-1.00); Monocytes % (A) 6.4 %; Neutrophils # (A) 5.19 10*3/uL (1.80-7.70); Platelet Count 109 10*3/uL (140-440); RBC 2.41 10*6/uL (4.10-5.20); RDW 16.9 % (11.5-14.5); WBC 6.56 10*3/uL (4.50-10.00)
[2025-03-28 21:25] LABS: ALT 21 U/L (4-34); AST 34 U/L (14-36); African American GFR (CKD) 50 (>60 ml/min/1.73 sqM); Albumin 2.8 g/dL (3.5-5.0); Alkaline Phosphatase 214 U/L (38-126); Anion Gap 8 mmol/L; Blood Urea Nitrogen 26 mg/dL (7-17); Calcium 8.5 mg/dL (8.4-10.2); Carbon Dioxide 31 mmol/L (22-30); Chloride 94 mmol/L (98-107); Glucose 158 mg/dL (74-99); Lactic Acid, Venous 1.5 mmol/L (0.7-2.0); Non-African American GFR(CKD) 44 (>60 ml/min/1.73 sqM); Potassium 3.7 mmol/L (3.5-5.1); Sodium 133 mmol/L (137-145); Total Bilirubin 0.5 mg/dL (0.2-1.3); Total Protein 6.3 g/dL (6.3-8.2)
[2025-03-28 21:34] LABS: NT-Pro-B-Type Natriuretic Pept 6420 pg/mL
[2025-03-28] MEDS ORDERED: HEPARIN SODIUM 1,000 UN/ML (10ML VL) IV PRN (21:52)
[2025-03-28 22:09] LABS: Appearance,Urine Cloudy (Clear); Bilirubin,Urine Negative (Negative); Blood,Urine Moderate (Negative); Budding Yeast,Urine Moderate /hpf; Color,Urine Light Yellow; Glucose,Urine (UA) 4+ (Negative); Ketones,Urine Negative (Negative); Leukocyte Esterase,Urine Large (Negative); Mucus,Urine Rare /hpf; Nitrite,Urine Negative (Negative); PH, Urine 5.5 (5.0-8.0); Protein,Urine 1+ (Negative); RBC,Urine 175 /hpf (0-5); Specific Gravity,Urine 1.018 (1.001-1.035); Squamous Epithelial Cell,Urine <1 /hpf (0-4); Urobilinogen,Urine <2.0 mg/dL (<2.0); WBC,Urine >182 /hpf (0-5)
[2025-03-28 22:10] LABS: INR 1.1 (<1.2); Prothrombin Time 11.8 sec (10.0-12.5)
[2025-03-28] MEDS ORDERED: NALOXONE 0.4 MG/ML 1 ML VIAL IV PRN (22:15)
[2025-03-28] MEDS ORDERED: IPRATROPIUM-ALBUTEROL 3 ML NEB INHALATION PRN (22:15)
[2025-03-28] MEDS ORDERED: ONDANSETRON 4 MG/2 ML VIAL IVP PRN (22:15)
[2025-03-28] MEDS ORDERED: MORPHINE SULFATE 4 MG/ML SYRINGE IV PRN (22:15)
[2025-03-28] MEDS ORDERED: PNEUMONIA PROTOCOL UTILIZED 1 EACH MISC PO PRN (22:15)
[2025-03-28] MEDS: HEPARIN SODIUM 1,000 UN/ML (10ML VL) IV ONE (22:18)
[2025-03-28] MEDS: HEPARIN SOD,PORK IN 0.45% NACL 25,000 UNIT in 0.45% NACL 1 250ML.BAG IV SCH (22:19)
[2025-03-28 22:37] LABS: T4, Free (Free Thyroxine) 1.04 ng/dL (0.78-2.19)
[2025-03-29] MEDS: FUROSEMIDE 10 MG/ML 4 ML VIAL IV SCH (00:24)
[2025-03-29] MEDS: SODIUM CHLORIDE 0.9% 1,000 ML IV SCH (00:26)
[2025-03-29] MEDS: PIPERACILLIN-TAZOBACTAM 3.375 GM in SODIUM CHLORIDE 0.9% 100 ML IVPB SCH (00:26)
[2025-03-29 04:48] LABS: Basophils # (A) 0.04 10*3/uL (0.00-0.10); Basophils % (A) 0.5 %; Eosinophils # (A) 0.21 10*3/uL (0.04-0.35); Eosinophils % (A) 2.6 %; HCT 23.8 % (37.2-46.3); HGB 7.4 g/dL (12.0-15.0); Lymphocytes # (A) 0.83 10*3/uL (0.90-5.00); Lymphocytes % (A) 10.3 %; MCH 29.6 pg (27.0-32.0); MCHC 31.1 g/dL (32.0-37.0); MCV 95.2 fL (80.0-97.0); Monocytes # (A) 0.43 10*3/uL (0.20-1.00); Monocytes % (A) 5.3 %; Neutrophils # (A) 6.52 10*3/uL (1.80-7.70); Neutrophils % (A) 80.7 %; Platelet Count 100 10*3/uL (140-440); RDW 17.2 % (11.5-14.5); WBC 8.08 10*3/uL (4.50-10.00)
[2025-03-29 04:55] LABS: INR 1.1 (<1.2); Partial Thromboplastin Time 43.1 sec (22.0-30.0); Prothrombin Time 11.8 sec (10.0-12.5)
[2025-03-29 05:55] LABS: ALT 22 U/L (4-34); AST 36 U/L (14-36); African American GFR (CKD) 50 (>60 ml/min/1.73 sqM); Albumin 2.8 g/dL (3.5-5.0); Alkaline Phosphatase 213 U/L (38-126); Anion Gap 8 mmol/L; Blood Urea Nitrogen 26 mg/dL (7-17); Calcium 8.6 mg/dL (8.4-10.2); Carbon Dioxide 32 mmol/L (22-30); Chloride 94 mmol/L (98-107); Glucose 136 mg/dL (74-99); Magnesium 1.8 mg/dL (1.6-2.3); Non-African American GFR(CKD) 43 (>60 ml/min/1.73 sqM); Phosphorus 4.9 mg/dL (2.5-4.5); Potassium 3.7 mmol/L (3.5-5.1); Sodium 134 mmol/L (137-145); Total Bilirubin 0.6 mg/dL (0.2-1.3); Total Protein 6.4 g/dL (6.3-8.2)
--- NOTE | 2025-03-29 08:30 | XR ---
EXAMINATION TYPE: XR chest 1V DATE OF EXAM: 03/29/2025 COMPARISON: 03/28/2025 CLINICAL INDICATION: Female, 80 years old with history of chf; TECHNIQUE: Single frontal view of the chest is obtained. FINDINGS: The left anterior chest wall pacemaker generator with right atrial and right ventricular l shahida. Median sternotomy wires and prosthetic aortic valve. Heart remains mildly enlarged. Diffuse int erstitial densities persist. Uncoiling moderate left pleural effusion and retrocardiac/left basilar o pacity. Interstitium shows improvement from prior. IMPRESSION: 1. Some interval improvement in CHF but with residual pulmonary vascular congestion. 2. Similar moderate left pleural effusion with adjacent atelectasis and/or consolidation. [facility], , 03/29/2025 8:27 AM
[2025-03-29] MEDS: cefTRIAXone 2 GM in DEXTROSE 5% IN WATER 50 ML IVPB SCH ×2 (09:59→21:42)
--- NOTE | 2025-03-29 10:16 | P.CRDCN ---
History of Present Illness History of present illness: HISTORY OF PRESENT ILLNESS: This is a 80-year-old female with a past medical history significant for TAVR in 2018 with subsequent aortic valve replacement, mitral valve replacement, tricu spid valve repair done at [facility] in May 2024, paroxysmal atrial fibrillation, hypertension, hyperlipidemia, diabetes, coronary artery disease, pleural effusion with previous thoracentesis, congestive heart failure, endocarditis, and pacemaker implantation. Patient follows in the office with Dr. Watson. We have been asked to see the patient in consultation for elevated troponins. Patient examined at the bedside. Patient's daughter is at the bedside. Patient has been at [facility] after recent hospitalization here. Yesterday she was confused and did not know where she was at and was asking where her sister was who had a few years ago. Patient's daughter states that she then became very lethargic and was not acting like herself and the decision was made to bring her to the hospital for further evaluation. The patient remains lethargic this morning. She is currently on BiPAP. DIAGNOSTICS: - EKG reveals ventricular paced rhythm. - Chest xray cardiomegaly with bilateral perihilar opacities and left basilar opacity which may represent pulmonary edema from CHF exacerbation versus multifocal pneumonia -CT of the brain new lacunar infarct within the left thalamus - Laboratory data: WBC 8.08. Hemoglobin 7.4. Platelet count 100. Sodium 134. Potassium 3.7. BUN 26. Creatinine 1.20. Troponin 0.231. 0.238. 0.206. - Current home cardiac medications include Aldactone 25 mg daily, Bumex 2 mg daily, Lipitor 40 mg at night. - Most recent echocardiogram obtained in February 2025 revealed ejection fraction of 55 to 60%, no obvious regional wall motion abnormalities bioprosthetic aortic valve with mean gradient 11 mmHg, tricuspid valve repair with mild tricuspid regurgitation - Cardiac catheterization history: 12/2020 with PCI to the mid diagonal 1 and ostial PDA REVIEW OF SYSTEMS: At the time of my exam: Unable to obtain through review of systems secondary to altered mental status PHYSICAL EXAM: VITAL SIGNS: Reviewed. GENERAL: Well-developed in no acute distress. HEENT: Head is normocephalic. Pupils are equal, round. Sclerae anicteric. Mucous membranes of the mouth are moist. Neck supple. No JVD or thyromegaly LUNGS: Respirations even and unlabored. Lungs diminished bilaterally. HEART: Regular rate and rhythm. S1 and S2 heard. ABDOMEN: Soft. Nondistended. Nontender. EXTREMITIES: Normal range of motion. No clubbing or cyanosis. Peripheral pul ses intact. 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, likely source from sacral decubitus ulcer Acute on chronic heart failure with reduced EF, 40 to 45% Valvular heart disease status post TAVR 2017 with subsequent open aortic valve replacement, mitral valve replacement, and tricuspid valve repair, May 2024 at [facility] Paroxysmal atrial fibrillation Coronary artery disease with previous stenting to mid diagonal 1 and ostial PDA History of anemia with questionable GI bleed requiring RBC transfusion History of pacemaker implantation Hypertension Hyperlipidemia Diabetes Hypothyroidism PLAN: Patient not anticoagulated on outpatient basis secondary to anemia requiring RBC transfusion. Recommend evaluation for Watchman device on an outpatient basis. Continue IV Lasix 40 mg every 12 hours Daily weights, accurate intake and output, monitoring of kidney function Resume additional home cardiac medications Consult neurology secondary to abnormal CT Discontinue IV heparin due to risk of hemorrhage due to possibility of septic embolization Further recommendations pending patient course Nurse practitioner note has been reviewed by physician. Signing provider agrees with the documented findings, assessment, and plan of care documented by PHLEBOTOMY DIRECTOR as a scribe. Past Medical History Past Medical History: Atrial Fibrillation, Diabetes Mellitus, Hearing Disorder / Deafness, Hyperlipidemia, Osteoarthritis (OA), Pneumonia, Sleep Apnea/CPAP/BIPAP, Thyroid Disorder Additional Past Medical History / Comment(s): USES BIPAP, AORTIC VALVE REPLA CEMENT , HX A-FIB WITH PNEUMONIA,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 HAD THYROID AND PARATHYROID REMOVAL. TOTAL LEFT KNEE REPLACEMENT, CATARACT RT EYE, CATARACT LEFT EYE SURGERY ,COLONOSCOPY, TVAR- 11/2018 , Aortic valve replacement 10/2018 Past Anesthesia/Blood Transfusion Reactions: No Reported Reaction Type of Cardiac Device: Permanent Pacemaker Device Placement Date:: PACEMAKER NOV 2017. Past Psychological History: No Psychological Hx Reported Smoking Status: Never smoker Past Alcohol Use History: None Reported Past Drug Use History: None Reported - Past Family History Daughter(s) Family Medical History: Deep Vein Thrombosis (DVT) Sister(s) Family Medical History: Cancer Additional Family Medical History / Comment(s): BREAST CANCER Medications and Allergies Home Medications Medication Instructions Recorded Confirmed Type Levothyroxine Sodium [Levoxyl] 175 mcg PO DAILY 10/25/20 03/29/25 History FLUoxetine HCL [PROzac] 10 mg PO DAILY 10/08/24 03/29/25 History Insulin Glargine,Hum.rec.anlog 20 units SQ HS 10/08/24 03/29/25 History [Lantus Solostar Pen] Calcium Carbonate [Calcium] 600 mg PO BID 01/28/25 03/29/25 History Acetaminophen Tab [Tylenol] 650 mg PO Q6HR PRN tab 02/05/25 03/29/25 Rx Atorvastatin [Lipitor] 40 mg PO HS #30 tab 02/05/25 03/29/25 Rx Dapagliflozin Propanediol [Farxiga] 10 mg PO DAILY #30 tab 02/05/25 03/29/25 Rx Metoprolol Succinate (ER) [Toprol 25 mg PO HS #30 tab 02/05/25 03/29/25 Rx XL] Ascorbic Acid [Vitamin C] 500 mg PO DAILY #30 tab 02/23/25 03/29/25 Rx Cholecalciferol [Vitamin D3 (125 125 mcg PO DAILY #30 tab 02/23/25 03/29/25 Rx Mcg = 5000 Iu)] Zinc Sulfate [Orazinc] 220 mg PO DAILY 15 Days #15 cap 02/23/25 03/29/25 Rx Ampicillin Sodium 2 gm IVPB Q6HR #140 each 03/19/25 03/29/25 Rx INSULIN LISPRO (HumaLOG) [HumaLOG] 20 unit SQ AC-TID each 03/19/25 03/29/25 Rx Loratadine [Claritin] 10 mg PO DAILY tab 03/19/25 03/29/25 Rx cefTRIAXone [Rocephin] 2 gm IVPB Q12H #70 each 03/19/25 03/29/25 Rx Apixaban [Eliquis] 5 mg PO BID 03/29/25 03/29/25 History Bumetanide [BUMEX] 2 mg PO DAILY 03/29/25 03/29/25 History Omeprazole [PriLOSEC] 20 mg PO DAILY 03/29/25 03/29/25 History Saline Flush 0.9% 10 ml IV Q6H 03/29/25 03/29/25 History Spironolactone [Aldactone] 25 mg PO DAILY 03/29/25 03/29/25 History Allergies Allergy/AdvReac Type Severity Reaction Status Date / Time azithromycin Allergy Rash/Hives Verified 03/29/25 09:48 nitrofurantoin Allergy Rash/Hives Verified 03/29/25 09:48 macrocrystalline [From Macrodantin] phenazopyridine HCl Allergy Rash/Hives Verified 03/29/25 09:48 [From Pyridium] Physical Exam Vitals: Vital Signs Temp Pulse Pulse Resp BP BP Pulse Ox 03/29/25 04:37 97.6 F 75 20 123/66 03/29/25 02:00 18 03/29/25 00:20 97.7 F 71 20 122/70 99 03/28/25 23:36 68 18 120/59 100 03/28/25 22:17 68 18 120/59 100 03/28/25 20:03 20 03/28/25 19:53 97.9 F 68 20 113/63 100 Intake and Output 03/28/25 03/29/25 03/29/25 22:59 06:59 14:59 Other: Voiding Method Incontinent External Catheter # Voids 1 Weight 127.006 kg 121 kg Results 03/29/25 04:32 03/29/25 04:32 Cardiac Enzymes 03/28/25 03/28/25 03/28/25 Range/Units 20:43 20:43 23:55 AST 34 (14-36) U/L Troponin I 0.231 H* 0.238 H* (0.000-0.034) ng/mL 03/29/25 03/29/25 Range/Units 04:32 04:32 AST 36 (14-36) U/L Troponin I 0.206 H* (0.000-0.034) ng/mL Coagulation 03/28/25 03/29/25 Range/Units 20:40 04:32 PT 11.8 11.8 (10.0-12.5) sec APTT 24.0 43.1 H (22.0-30.0) sec CBC 03/28/25 03/29/25 Range/Units 20:43 04:32 WBC 6.56 8.08 (4.50-10.00) 10*3/uL RBC 2.41 L 2.50 L (4.10-5.20) 10*6/uL Hgb 7.4 L 7.4 L (12.0-15.0) g/dL Hct 22.5 L 23.8 L (37.2-46.3) % Plt Count 109 L 100 L (140-440) 10*3/uL Comprehensive Metabolic Panel 03/28/25 03/29/25 Range/Units 20:43 04:32 Sodium 133 L 134 L (137-145) mmol/L Potassium 3.7 3.7 (3.5-5.1) mmol/L Chloride 94 L 94 L (98-107) mmol/L Carbon Dioxide 31 H 32 H (22-30) mmol/L BUN 26 H 26 H (7-17) mg/dL Creatinine 1.19 H 1.20 H (0.52-1.04) mg/dL Glucose 158 H 136 H (74-99) mg/dL Calcium 8.5 8.6 (8.4-10.2) mg/dL AST 34 36 (14-36) U/L ALT 21 22 (4-34) U/L Alkaline Phosphatase 214 H 213 H (38-126) U/L Total Protein 6.3 6.4 (6.3-8.2) g/dL Albumin 2.8 L 2.8 L (3.5-5.0) g/dL Current Medications Generic Name Dose Route Start Last Admin Trade Name Freq PRN Reason Stop Dose Admin Albuterol/Ipratropium 3 ml 03/28/25 22:15 Ipratropium-Albuterol 3 Ml Neb INHALATION RT-Q4H PRN shortness of breath Furosemide 40 mg 03/28/25 22:15 03/29/25 00:24 Furosemide 10 Mg/Ml 4 Ml Vial IV 40 mg Q12H LILIYA Administration Heparin Sodium (Porcine) 0 unit 03/28/25 21:52 Heparin Sodium 1,000 Un/Ml (10ml Vl) IV PER PROTOCOL PRN Low PTT Protocol Heparin Sodium/Sodium Chloride 250 mls @ 9.995 mls/hr 03/28/25 22:00 03/28/25 22:19 25,000 unit/ Sodium Chloride IV 7.87 units/kg/hr .Q24H LILIYA 9.995 mls/hr Administration Protocol 7.87 UNITS/KG/HR Sodium Chloride 1,000 mls @ 100 mls/hr 03/28/25 22:15 03/29/25 00:26 Saline 0.9% IV 100 mls/hr .Q10H LILIYA Administration Piperacillin Sod/Tazobactam 100 mls @ 25 mls/hr 03/29/25 00:00 03/29/25 00:26 Sod 3.375 gm/ Sodium Chloride IVPB 04/03/25 00:00 25 mls/hr Q8HR LILIYA Administration Protocol Ceftriaxone Sodium 2 gm/ 50 mls @ 100 mls/hr 03/29/25 09:00 Sodium Chloride IVPB 04/01/25 09:29 Q24HR LILIYA Protocol Miscellaneous Information 1 each 03/28/25 22:15 Pneumonia Protocol Utilized 1 Each Misc PO ONCE PRN Per Protocol Morphine Sulfate 4 mg 03/28/25 22:15 Morphine Sulfate 4 Mg/Ml Syringe IV Q4HR PRN Severe Pain (Scale 7 to 10) Naloxone HCl 0.2 mg 03/28/25 22:15 Naloxone 0.4 Mg/Ml 1 Ml Vial IV Q2M PRN Opioid Reversal Ondansetron HCl 4 mg 03/28/25 22:15 Ondansetron 4 Mg/2 Ml Vial IVP Q8HR PRN Nausea And Vomiting Intake and Output 03/28/25 03/29/25 03/29/25 22:59 06:59 14:59 Other: Voiding Method Incontinent External Catheter # Voids 1 Weight 127.006 kg 121 kg 03/29/25 04:32 03/29/25 04:32
[2025-03-29] MEDS: SPIRONOLACTONE 25 MG TAB PO SCH (11:06)
--- NOTE | 2025-03-29 11:50 | P.HPIM ---
History of Present Illness H&P Date: 03/29/25 Patient is a 80-year-old female with a history of mitral valve replacement has pacemaker, congestive heart failure (EF of 40 to 45%), obstructive sleep apnea on BiPAP at home, on home oxygen at 5 L during the day was brought to the emergency department yesterday after she was found to be confused and altered in a shelter facility where she is undergoing rehab. Patient was recently hospitalized for sepsis, Enterococcus bacteremia, infective endocarditis and was discharged to [facility] on PICC line on IV Rocephin and ampicillin. Currently, patient is feeling better and is AA0 x 1. Her daughter was in the room and as per her shoes less confused and more alert and oriented compared to yesterday but still she is not at her baseline mentation. Patient otherwise denies any shortness of breath, cough, chest pain, nausea, vomiting, diarrhea or constipation. Reports no focal neurological deficits, no dysarthria, asymmetry of the face, no numbness or weakness in upper or lower extremities. Initial lab work shows WBC of 6.56, hemoglobin 7.4, sodium 133, potassium 4.7, BUN 26, creatinine 1.17, glucose 158, alkaline phosphatase 241, troponin I 0.231, NT proBNP 6420, TSH 10.1, free T41.03. Repeat blood work shows WBC 8.0, hemoglobin 7.4, sodium 134, potassium 3.7, BUN 26, creatinine 1.20, troponin I 0.238 and 0.206. Urinalysis shows proteinuria, glycosuria, leukocyte Estrace positive. Chest x-ray shows cardiomegaly with bilateral perihilar opacities with left pleural effusion and vascular congestion noted. EKG shows no ST segment elevation, nonspecific ST-T wave changes, ventricular r ate 68 bpm, MO interval 139 ms, QRS duration 154 ms, QTc 478. Brain CT shows new lacunar infarct within the left thalamus and no evidence of intracranial hemorrhage. Review of systems: Pertinent positives and negatives as discussed in HPI, a complete review of systems was performed and all other systems are negative. Physical examination: Vital signs reviewed General: non toxic, no distress, appears at stated age, morbidly obese Derm: no unusual rashes/lesions, warm Head: atraumatic, normocephalic, symmetric Eyes: EOMI, no lid lag, anicteric sclera, pupils equal round reactive to light ENT: Nose and ears atraumatic Neck: No cervical lymphadenopathy, trachea midline, supple Mouth: no lip lesion, mucus membranes moist Cardiovascular: S1S2 reg, no murmur, positive dorsalis pedis pulse bilateral, 2+ pitting edema Lungs: CTA bilateral, no rhonchi, no rales, no accessory muscle use Abdominal: soft, nontender to palpation, no guarding Ext: muscle strength 5 out of 5 in all 4 extremities grossly, no gross muscle atrophy, no contractures, Neuro: CN II-XI grossly intact, no gross focal neuro deficits Psych: Alert, oriented, appropriate affect Assessment/Plan: Patient is a 80-year-old female with a history of mitral valve replacement has pacemaker, congestive heart failure (EF of 40 to 45%), obstructive sleep apnea on BiPAP at home, on home oxygen at 5 L during the day was brought to the emergency department for altered mental status. Case was discussed with the Emergency Room provider and decision was made to admit the patient for altered mental status. Labs and images: WBC of 6.56, hemoglobin 7.4, sodium 133, potassium 4.7, BUN 26, creatinine 1.17, glucose 158, alkaline phosphatase 241, troponin I 0.231, NT proBNP 6420, TSH 10.1, free T41.03. Repeat blood work shows WBC 8.0, hemoglobin 7.4, sodium 134, potassium 3.7, BUN 26, creatinine 1.20, troponin I 0.238 and 0.206. Urinalysis shows proteinuria, glycosuria, leukocyte Estrace positive. Chest x-ray shows cardiomegaly with bilateral perihilar opacities with left pleural effusion and vascular congestion noted. EKG shows no ST segment elevation, nonspecific ST-T wave changes, ventricular rate 68 bpm, MO interval 139 ms, QRS duration 154 ms, QTc 478. Brain CT shows new lacunar infarct within the left thalamus and no evidence of intracranial hemorrhage. Active: #Acute toxic metabolic encephalopathy, infectious versus neurologic #Complicated UTI #Left lacunar infarct on CT brain #Recent history of Enterococcus bacteremia and infective endocarditis on IV Rocephin and ampicillin through PICC line Consult infectious disease Continue with IV Rocephin and ampicillin Chest x-ray does show left pleural opacity but no pneumonia less likely Blood culture, sputum culture, urine culture, urine Legionella antigen has been ordered by ED, report pending Urinalysis is positive for UTI Consult neurology Start patient on aspirin 81 mg once daily Order carotid duplex ultrasound #Elevated troponins likely secondary to type II NSTEMI #Valvular heart disease status post TAVR (2017), subsequently aortic valve replacement, mitral valve replacement, tricuspid valve repair in May 2024 #Acute on chronic HFpEF, echocardiogram on 03/10/2025 with ejection fraction of 55 to 60% Troponin I trending flat Continue with Lasix 40 mg IV every 12 hour Consult cardiology Continue with Aldactone 25 mg p.o. daily and Toprol-XL 25 mg p.o. at bedtime Resume Farxiga #Obesity hypoventilation syndrome on 5 L of oxygen at home #Obstructive sleep apnea on BiPAP at home DuoNebs as needed Continue with oxygen, patient currently at baseline Chronic: Hypothyroidism: Resume Synthroid Anxiety/depression: Resume Prozac GERD: Resume omeprazole DVT prophylaxis: Eliquis 5 mg p.o. twice daily GI prophylaxis: Omeprazole F: None E: Replete as needed N: Heart healthy diet A: Ambulatory at baseline The patient is admitted with an anticipated more than than 2 midnight stay for evaluation of altered mental status CODE STATUS: Full code Discussed with: Patient Anticipated discharge place: Pending clinical course Dictation was produced using [employer] dictation software. Please excuse any grammatical, word or spelling errors. insert Past Medical History Past Medical History: Atrial Fibrillation, Diabetes Mellitus, Hearing Disorder / Deafness, Hyperlipidemia, Osteoarthritis (OA), Pneumonia, Sleep Apnea/CPAP/BIPAP, Thyroid Disorder Additional Past Medical History / Comment(s): USES BIPAP, AORTIC VALVE REPLACEMENT , HX A-FIB WITH PNEUMONIA,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 HAD THYROID AND PARATHYROID REMOVAL. TOTAL LEFT KNEE REPLACEMENT, CATARACT RT EYE, CATARACT LEFT EYE SURGERY ,COLONOSCOPY, TVAR- 11/2018 , Aortic valve replacement 10/2018 Past Anesthesia/Blood Transfusion Reactions: No Reported Reaction Type of Cardiac Device: Permanent Pacemaker Device Placement Date:: PACEMAKER NOV 2017. Past Psychological History: No Psychological Hx Reported Smoking Status: Never smoker Past Alcohol Use History: None Reported Past Drug Use History: None Reported - Past Family History Daughter(s) Family Medical History: Deep Vein Thrombosis (DVT) Sister(s) Family Medical History: Cancer Additional Family Medical History / Comment(s): BREAST CANCER Medications and Allergies Home Medications Medication Instructions Recorded Confirmed Type Levothyroxine Sodium [Levoxyl] 175 mcg PO DAILY 10/25/20 03/29/25 History FLUoxetine HCL [PROzac] 10 mg PO DAILY 10/08/24 03/29/25 History Insulin Glargine,Hum.rec.anlog 20 units SQ HS 10/08/24 03/29/25 History [Lantus Solostar Pen] Calcium Carbonate [Calcium] 600 mg PO BID 01/28/25 03/29/25 History Acetaminophen Tab [Tylenol] 650 mg PO Q6HR PRN tab 02/05/25 03/29/25 Rx Atorvastatin [Lipitor] 40 mg PO HS #30 tab 02/05/25 03/29/25 Rx Dapagliflozin Propanediol [Farxiga] 10 mg PO DAILY #30 tab 02/05/25 03/29/25 Rx Metoprolol Succinate (ER) [Toprol 25 mg PO HS #30 tab 02/05/25 03/29/25 Rx XL] Ascorbic Acid [Vitamin C] 500 mg PO DAILY #30 tab 02/23/25 03/29/25 Rx Cholecalciferol [Vitamin D3 (125 125 mcg PO DAILY #30 tab 02/23/25 03/29/25 Rx Mcg = 5000 Iu)] Zinc Sulfate [Orazinc] 220 mg PO DAILY 15 Days #15 cap 02/23/25 03/29/25 Rx Ampicillin Sodium 2 gm IVPB Q6HR #140 each 03/19/25 03/29/25 Rx INSULIN LISPRO (HumaLOG) [HumaLOG] 20 unit SQ AC-TID each 03/19/25 03/29/25 Rx Loratadine [Claritin] 10 mg PO DAILY tab 03/19/25 03/29/25 Rx cefTRIAXone [Rocephin] 2 gm IVPB Q12H #70 each 03/19/25 03/29/25 Rx Apixaban [Eliquis] 5 mg PO BID 03/29/25 03/29/25 History Bumetanide [BUMEX] 2 mg PO DAILY 03/29/25 03/29/25 History Omeprazole [PriLOSEC] 20 mg PO DAILY 03/29/25 03/29/25 History Saline Flush 0.9% 10 ml IV Q6H 03/29/25 03/29/25 History Spironolactone [Aldactone] 25 mg PO DAILY 03/29/25 03/29/25 History Aspirin 81 mg PO DAILY tab 04/02/25 Rx Allergies Allergy/AdvReac Type Severity Reaction Status Date / Time azithromycin Allergy Rash/Hives Verified 03/29/25 09:48 nitrofurantoin Allergy Rash/Hives Verified 03/29/25 09:48 macrocrystalline [From Macrodantin] phenazopyridine HCl Allergy Rash/Hives Verified 03/29/25 09:48 [From Pyridium] Physical Exam Vitals: Vital Signs Temp Pulse Pulse Resp BP BP Pulse Ox 03/29/25 04:37 97.6 F 75 20 123/66 03/29/25 02:00 18 03/29/25 00:20 97.7 F 71 20 122/70 99 03/28/25 23:36 68 18 120/59 100 03/28/25 22:17 68 18 120/59 100 03/28/25 20:03 20 03/28/25 19:53 97.9 F 68 20 113/63 100 Intake and Output 03/28/25 03/29/25 03/29/25 22:59 06:59 14:59 Other: Voiding Method Incontinent External Catheter # Voids 1 Weight 127.006 kg 121 kg Results CBC & Chem 7: 04/04/25 08:33 04/05/25 07:03 Labs: Abnormal Lab Results - Last 24 Hours (Table) 03/28/25 03/28/25 03/28/25 Range/Units 20:43 20:43 20:43 RBC 2.41 L (4.10-5.20) 10*6/uL Hgb 7.4 L (12.0-15.0) g/dL Hct 22.5 L (37.2-46.3) % MCHC (32.0-37.0) g/dL Plt Count 109 L (140-440) 10*3/uL MPV (9.5-12.2) fL Immature Gran # (0.00-0.04) 10*3/uL Lymphocytes # 0.76 L (0.90-5.00) 10*3/uL APTT (22.0-30.0) sec VBG pH (7.31-7.41) VBG HCO3 (24-28) mmol/L Sodium 133 L (137-145) mmol/L Chloride 94 L (98-107) mmol/L Carbon Dioxide 31 H (22-30) mmol/L BUN 26 H (7-17) mg/dL Creatinine 1.19 H (0.52-1.04) mg/dL Glucose 158 H (74-99) mg/dL Phosphorus (2.5-4.5) mg/dL Alkaline Phosphatase 214 H (38-126) U/L Troponin I 0.231 H* (0.000-0.034) ng/mL Albumin 2.8 L (3.5-5.0) g/dL TSH 10.100 H (0.465-4.680) mIU/L Urine Appearance (Clear) Urine Protein (Negative) Urine Glucose (UA) (Negative) Urine Blood (Negative) Ur Leukocyte Esterase (Negative) Urine RBC (0-5) /hpf Urine WBC (0-5) /hpf Urine WBC Clumps (None) /hpf Urine Mucus (None) /hpf Urine Yeast (Budding) (None) /hpf 03/28/25 03/28/25 03/28/25 Range/Units 20:43 21:50 23:55 RBC (4.10-5.20) 10*6/uL Hgb (12.0-15.0) g/dL Hct (37.2-46.3) % MCHC (32.0-37.0) g/dL Plt Count (140-440) 10*3/uL MPV (9.5-12.2) fL Immature Gran # (0.00-0.04) 10*3/uL Lymphocytes # (0.90-5.00) 10*3/uL APTT (22.0-30.0) sec VBG pH 7.42 H (7.31-7.41) VBG HCO3 33 H (24-28) mmol/L Sodium (137-145) mmol/L Chloride (98-107) mmol/L Carbon Dioxide (22-30) mmol/L BUN (7-17) mg/dL Creatinine (0.52-1.04) mg/dL Glucose (74-99) mg/dL Phosphorus (2.5-4.5) mg/dL Alkaline Phosphatase (38-126) U/L Troponin I 0.238 H* (0.000-0.034) ng/mL Albumin (3.5-5.0) g/dL TSH (0.465-4.680) mIU/L Urine Appearance Cloudy H (Clear) Urine Protein 1+ H (Negative) Urine Glucose (UA) 4+ H (Negative) Urine Blood Moderate H (Negative) Ur Leukocyte Esterase Large H (Negative) Urine RBC 175 H (0-5) /hpf Urine WBC >182 H (0-5) /hpf Urine WBC Clumps Many H (None) /hpf Urine Mucus Rare H (None) /hpf Urine Yeast (Budding) Moderate H (None) /hpf 03/29/25 03/29/25 03/29/25 Range/Units 04:32 04:32 04:32 RBC 2.50 L (4.10-5.20) 10*6/uL Hgb 7.4 L (12.0-15.0) g/dL Hct 23.8 L (37.2-46.3) % MCHC 31.1 L (32.0-37.0) g/dL Plt Count 100 L (140-440) 10*3/uL MPV 9.0 L (9.5-12.2) fL Immature Gran # 0.05 H (0.00-0.04) 10*3/uL Lymphocytes # 0.83 L (0.90-5.00) 10*3/uL APTT 43.1 H (22.0-30.0) sec VBG pH (7.31-7.41) VBG HCO3 (24-28) mmol/L Sodium (137-145) mmol/L Chloride (98-107) mmol/L Carbon Dioxide (22-30) mmol/L BUN (7-17) mg/dL Creatinine (0.52-1.04) mg/dL Glucose (74-99) mg/dL Phosphorus (2.5-4.5) mg/dL Alkaline Phosphatase (38-126) U/L Troponin I 0.206 H* (0.000-0.034) ng/mL Albumin (3.5-5.0) g/dL TSH (0.465-4.680) mIU/L Urine Appearance (Clear) Urine Protein (Negative) Urine Glucose (UA) (Negative) Urine Blood (Negative) Ur Leukocyte Esterase (Negative) Urine RBC (0-5) /hpf Urine WBC (0-5) /hpf Urine WBC Clumps (None) /hpf Urine Mucus (None) /hpf Urine Yeast (Budding) (None) /hpf 03/29/25 Range/Units 04:32 RBC (4.10-5.20) 10*6/uL Hgb (12.0-15.0) g/dL Hct (37.2-46.3) % MCHC (32.0-37.0) g/dL Plt Count (140-440) 10*3/uL MPV (9.5-12.2) fL Immature Gran # (0.00-0.04) 10*3/uL Lymphocytes # (0.90-5.00) 10*3/uL APTT (22.0-30.0) sec VBG pH (7.31-7.41) VBG HCO3 (24-28) mmol/L Sodium 134 L (137-145) mmol/L Chloride 94 L (98-107) mmol/L Carbon Dioxide 32 H (22-30) mmol/L BUN 26 H (7-17) mg/dL Creatinine 1.20 H (0.52-1.04) mg/dL Glucose 136 H (74-99) mg/dL Phosphorus 4.9 H (2.5-4.5) mg/dL Alkaline Phosphatase 213 H (38-126) U/L Troponin I (0.000-0.034) ng/mL Albumin 2.8 L (3.5-5.0) g/dL TSH (0.465-4.680) mIU/L Urine Appearance (Clear) Urine Protein (Negative) Urine Glucose (UA) (Negative) Urine Blood (Negative) Ur Leukocyte Esterase (Negative) Urine RBC (0-5) /hpf Urine WBC (0-5) /hpf Urine WBC Clumps (None) /hpf Urine Mucus (None) /hpf Urine Yeast (Budding) (None) /hpf Thrombosis Risk Factor Assmnt - Choose All That Apply Any of the Below Risk Factors Present?: Yes Each Factor Represents 1 point: Obesity (BMI >25), Sepsis (< 1month), Varicose veins Other Risk Factors: Yes Each Risk Factor Represents 3 Points: Family history of DVT/PE Other congenital or acquired thrombophilia - If yes, enter type in comment: No Thrombosis Risk Factor Assessment Total Risk Factor Score: 6 Thrombosis Risk Factor Assessment Level: High Risk Assessment and Plan Assessment: Attestation Attestation/ Seafood Fisherman Note: Attestation to History and physical, Participation (I saw and evaluated the patient with the Resident, and I reviewed and discussed the patient with the Resident and agree with the Resident's findings and plans as documented above., management reviewed and discussed), I agree with findings & plan, Provider Signature (ENRICO DANIELLE, ALEX Vela Time with Patient: Greater than 30
[2025-03-29] MEDS: AMPICILLIN 2,000 MG in SODIUM CHLORIDE 0.9% 100 ML IVPB SCH (13:10)
[2025-03-29] MEDS ORDERED: ACETAMINOPHEN TAB 325 MG TAB PO PRN (13:44)
--- NOTE | 2025-03-29 14:41 | US ---
EXAMINATION TYPE: US carotid duplex BILAT DATE OF EXAM: 03/29/2025 COMPARISON: NONE CLINICAL INDICATION: Female, 80 years old with history of CVA; Dizziness TECHNIQUE: Grayscale, color Doppler and spectral Doppler evaluation of the bilateral carotid systems and vertebral arteries. Indirect Doppler criteria was utilized. FINDINGS: EXAM MEASUREMENTS: RIGHT: Peak Systolic Velocity (PSV) cm/sec ----- Right CCA: 60.2 ----- Right ICA: 116 ----- Right ECA: 98.5 ICA/CCA ratio: 1.9 RIGHT: End Diastole cm/sec ----- Right CCA: 7.5 ----- Right ICA: 22.8 ----- Right ECA: 6.2 LEFT: Peak Systolic Velocity (PSV) cm/sec ----- Left CCA: 110 ----- Left ICA: 118 ----- Left ECA: 78.2 ICA/CCA ratio: 1.1 LEFT: End Diastole cm/sec ----- Left CCA: 18.2 ----- Left ICA: 34.9 ----- Left ECA: 18.0 VERTEBRALS (direction of flow): Right Vertebral: Antegrade Left Vertebral: Antegrade Rhythm: Normal NETWORK SPECIALIST NOTES: limited scan due to pt body habitus, unable to sit still. No elevated velocities. Bilateral plaque seen Color Doppler imaging shows patency with blood flow throughout the carotid artery. Spectral waveforms are within normal limits. IMPRESSION: No hemodynamically significant internal carotid artery stenosis on either side. Criteria for Assigning % of Stenosis / Diameter reduction (Estimation based on the indirect measurements of the internal carotid artery velocities (ICA PSV). 1. Normal (no stenosis)=ICA PSV < 180 cm/s: ratio < 2.0: ICA EDV<40 cm/s. 2. Less than 50% stenosis=ICA PSV < 180 cm/s: ratio < 2.0: ICA EDV<40 cm/s. 3. 50 to 69% stenosis=ICA PSV of 180 to 230 cm/s: ration 2.0 ? 4.0: ICA EDV 40-100 cm/s. PSV 125-180 cm/sec and ICA/CCA PSV Ratio ? 2.0 is also consistent with 50-69% stenosis 4. Greater than 70% stenosis to near occlusion= ICA PSV > 230 cm/s: ratio > 4.0: ICA EDV > 100 cm/s. 5. Near occlusion= ICA PSV velocities may be low or undetectable: variable ratio and ICA EDV. 6. Total occlusion=unable to detect flow. [facility], , 03/29/2025 2:39 PM
[2025-03-29] MEDS: LEVOTHYROXINE 88 MCG TAB PO SCH (15:01)
[2025-03-29] MEDS: DAPAGLIFLOZIN PROPANEDIOL 10 MG TABLET PO SCH (15:01)
[2025-03-29] MEDS: LORATADINE 10 MG TAB PO SCH (15:01)
[2025-03-29] MEDS: APIXABAN 5 MG TAB PO SCH (15:01)
[2025-03-29] MEDS: PANTOPRAZOLE 40 MG TABLET PO SCH (15:01)
[2025-03-29] MEDS: ASPIRIN 81 MG PO SCH (15:01)
[2025-03-29] MEDS: FLUoxetine HCL 10 MG CAP PO SCH (15:07)
[2025-03-29] MEDS: METOPROLOL SUCCINATE (ER) 25 MG TAB.ER.24H PO SCH (21:41)
[2025-03-29] MEDS: CALCIUM CARBONATE 500 MG CHEWABLE PO SCH (21:41)
[2025-03-29] MEDS: ATORVASTATIN 40 MG TAB PO SCH (21:41)
[2025-03-29] MEDS: INSULIN GLARGINE (LANTUS) 100 UNIT/ML SYR SQ SCH (21:46)
[2025-03-30 07:37] LABS: Basophils # (A) 0.05 10*3/uL (0.00-0.10); Basophils % (A) 0.8 %; Eosinophils # (A) 0.16 10*3/uL (0.04-0.35); Eosinophils % (A) 2.6 %; HCT 25.1 % (37.2-46.3); HGB 7.7 g/dL (12.0-15.0); Lymphocytes # (A) 0.72 10*3/uL (0.90-5.00); Lymphocytes % (A) 11.8 %; MCH 29.8 pg (27.0-32.0); MCHC 30.7 g/dL (32.0-37.0); MCV 97.3 fL (80.0-97.0); Mean Platelet Volume 9.1 fL (9.5-12.2); Monocytes # (A) 0.33 10*3/uL (0.20-1.00); Monocytes % (A) 5.4 %; Neutrophils # (A) 4.81 10*3/uL (1.80-7.70); Neutrophils % (A) 78.7 %; Platelet Count 108 10*3/uL (140-440); RBC 2.58 10*6/uL (4.10-5.20); RDW 17.3 % (11.5-14.5); WBC 6.11 10*3/uL (4.50-10.00)
[2025-03-30 07:59] LABS: African American GFR (CKD) 49 (>60 ml/min/1.73 sqM); Anion Gap 7 mmol/L; Blood Urea Nitrogen 32 mg/dL (7-17); Calcium 8.2 mg/dL (8.4-10.2); Carbon Dioxide 32 mmol/L (22-30); Chloride 95 mmol/L (98-107); Glucose 225 mg/dL (74-99); Non-African American GFR(CKD) 43 (>60 ml/min/1.73 sqM); Sodium 134 mmol/L (137-145)
[2025-03-30] MEDS: CHOLECALCIFEROL 125 MCG (5000 IU) TABLET PO SCH (09:52)
[2025-03-30] MEDS: ASCORBIC ACID 500 MG TAB PO SCH (09:52)
--- NOTE | 2025-03-30 09:57 | P.CONS ---
History of Present Illness - Reason for Consult Consult date: 03/29/25 Sepsis Requesting physician: Geovany Hutchinson - Chief Complaint Weakness mental status changes x 1 day - History of Present Illness Patient is a 80-year-old female with a past medical history significant for diabetes mellitus hypertension hyperlipidemia atrial fibrillation recent admission to this facility patient did have a Enterococcus faecalis bacteremia MELISSA did shows evidence of mitral valve endocarditis patient did get a PICC line and was advised a 6-week course of ampicillin and Rocephin with the patient was receiving [facility]25. Patient has not been brought back to the hospital for evaluation of increasing confusion and the patient noticed to be more lethargic no clear history of any fever or any chills and on presentation to the hospital patient was afebrile and no fever have been called subsequently patient denies having any headache or URI symptoms no chest pain mild shortness of breath no significant cough or sputum production no abdominal pain no diarrhea and no urinary symptoms on presentation the hospital patient was afebrile no fever have been called subsequently patient was not tachycardic or hypotensive mildly hypoxic currently on nasal cannula oxygen patient did have what was 6.56 creatinine is 1.19 troponins are positive urine has been positive urine for Legionella antigen negative patient did have a chest x-ray cardiomegaly with bilateral perihilar opacities and left basilar opacity may represent pulmonary edema versus multifocal pneumonia patient was started on Zosyn and Rocephin infectious disease was consulted for further management of antibiotic therapy Review of Systems Positive point and negatives has been mentioned in the HPI, complete review of systems was performed and all other systems are negative Past Medical History Past Medical History: Atrial Fibrillation, Diabetes Mellitus, Hearing Disorder / Deafness, Hyperlipidemia, Osteoarthritis (OA), Pneumonia, Sleep Apnea/CP AP/BIPAP, Thyroid Disorder Additional Past Medical History / Comment(s): USES BIPAP, AORTIC VALVE REPLACEMENT , HX A-FIB WITH PNEUMONIA,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 HAD THYROID AND PARATHYROID REMOVAL. TOTAL LEFT KNEE REPLACEMENT, CATARACT RT EYE, CATARACT LEFT EYE SURGERY ,COLONOSCOPY, TVAR- 11/2018 , Aortic valve replacement 10/2018 Past Anesthesia/Blood Transfusion Reactions: No Reported Reaction Type of Cardiac Device: Permanent Pacemaker Device Placement Date:: PACEMAKER NOV 2017. Past Psychological History: No Psychological Hx Reported Smoking Status: Never smoker Past Alcohol Use History: None Reported Past Drug Use History: None Reported - Past Family History Daughter(s) Family Medical History: Deep Vein Thrombosis (DVT) Sister(s) Family Medical History: Cancer Additional Family Medical History / Comment(s): BREAST CANCER Medications and Allergies Home Medications Medication Instructions Recorded Confirmed Type Levothyroxine Sodium [Levoxyl] 175 mcg PO DAILY 10/25/20 03/29/25 History FLUoxetine HCL [PROzac] 10 mg PO DAILY 10/08/24 03/29/25 History Insulin Glargine,Hum.rec.anlog 20 units SQ HS 10/08/24 03/29/25 History [Lantus Solostar Pen] Calcium Carbonate [Calcium] 600 mg PO BID 01/28/25 03/29/25 History Acetaminophen Tab [Tylenol] 650 mg PO Q6HR PRN tab 02/05/25 03/29/25 Rx Atorvastatin [Lipitor] 40 mg PO HS #30 tab 02/05/25 03/29/25 Rx Dapagliflozin Propanediol [Farxiga] 10 mg PO DAILY #30 tab 02/05/25 03/29/25 Rx Metoprolol Succinate (ER) [Toprol 25 mg PO HS #30 tab 02/05/25 03/29/25 Rx XL] Ascorbic Acid [Vitamin C] 500 mg PO DAILY #30 tab 02/23/25 03/29/25 Rx Cholecalciferol [Vitamin D3 (125 125 mcg PO DAILY #30 tab 02/23/25 03/29/25 Rx Mcg = 5000 Iu)] Zinc Sulfate [Orazinc] 220 mg PO DAILY 15 Days #15 cap 02/23/25 03/29/25 Rx Ampicillin Sodium 2 gm IVPB Q6HR #140 each 03/19/25 03/29/25 Rx INSULIN LISPRO (HumaLOG) [HumaLOG] 20 unit SQ AC-TID each 03/19/25 03/29/25 Rx Loratadine [Claritin] 10 mg PO DAILY tab 03/19/25 03/29/25 Rx cefTRIAXone [Rocephin] 2 gm IVPB Q12H #70 each 03/19/25 03/29/25 Rx Apixaban [Eliquis] 5 mg PO BID 03/29/25 03/29/25 History Bumetanide [BUMEX] 2 mg PO DAILY 03/29/25 03/29/25 History Omeprazole [PriLOSEC] 20 mg PO DAILY 03/29/25 03/29/25 History Saline Flush 0.9% 10 ml IV Q6H 03/29/25 03/29/25 History Spironolactone [Aldactone] 25 mg PO DAILY 03/29/25 03/29/25 History Allergies Allergy/AdvReac Type Severity Reaction Status Date / Time azithromycin Allergy Rash/Hives Verified 03/29/25 09:48 nitrofurantoin Allergy Rash/Hives Verified 03/29/25 09:48 macrocrystalline [From Macrodantin] phenazopyridine HCl Allergy Rash/Hives Verified 03/29/25 09:48 [From Pyridium] Physical Exam Vitals: Vital Signs Temp Pulse Pulse Resp BP BP Pulse Ox 03/29/25 08:18 97.5 F L 72 20 122/71 92 L 03/29/25 04:37 97.6 F 75 20 123/66 03/29/25 02:00 18 03/29/25 00:20 97.7 F 71 20 122/70 99 03/28/25 23:36 68 18 120/59 100 03/28/25 22:17 68 18 120/59 100 03/28/25 20:03 20 03/28/25 19:53 97.9 F 68 20 113/63 100 Intake and Output 03/28/25 03/29/25 03/29/25 22:59 06:59 14:59 Other: Voiding Method Incontinent Diaper External Catheter Incontinent # Voids 1 Weight 127.006 kg 121 kg GENERAL DESCRIPTION: Elderly female lying in bed, no distress. No tachypnea or accessory muscle of respiration use. HEENT: Shows Pallor , no scleral icterus. Oral mucous membrane is dry. NECK: Trachea central, no thyromegaly. LUNGS: Unlabored breathing. Decreased breath sounds at the base. HEART: S1, S2, regular rate and rhythm. ABDOMEN: Soft, no tenderness , guarding or rigidity, no organomegaly EXTREMITIES: No edema of feet. SKIN: No rash, no masses palpable. NEUROLOGICAL: The patient is awake, alert, oriented x3, mood and affect normal. Results CBC & Chem 7: 03/30/25 07:07 03/30/25 07:07 Labs: Abnormal Lab Results - Last 24 Hours (Table) 03/28/25 03/28/25 03/28/25 Range/Units 20:43 20:43 20:43 RBC 2.41 L (4.10-5.20) 10*6/uL Hgb 7.4 L (12.0-15.0) g/dL Hct 22.5 L (37.2-46.3) % MCHC (32.0-37.0) g/dL Plt Count 109 L (140-440) 10*3/uL MPV (9.5-12.2) fL Immature Gran # (0.00-0.04) 10*3/uL Lymphocytes # 0.76 L (0.90-5.00) 10*3/uL APTT (22.0-30.0) sec VBG pH (7.31-7.41) VBG HCO3 (24-28) mmol/L Sodium 133 L (137-145) mmol/L Chloride 94 L (98-107) mmol/L Carbon Dioxide 31 H (22-30) mmol/L BUN 26 H (7-17) mg/dL Creatinine 1.19 H (0.52-1.04) mg/dL Glucose 158 H (74-99) mg/dL Phosphorus (2.5-4.5) mg/dL Alkaline Phosphatase 214 H (38-126) U/L Troponin I 0.231 H* (0.000-0.034) ng/mL Albumin 2.8 L (3.5-5.0) g/dL TSH 10.100 H (0.465-4.680) mIU/L Urine Appearance (Clear) Urine Protein (Negative) Urine Glucose (UA) (Negative) Urine Blood (Negative) Ur Leukocyte Esterase (Negative) Urine RBC (0-5) /hpf Urine WBC (0-5) /hpf Urine WBC Clumps (None) /hpf Urine Mucus (None) /hpf Urine Yeast (Budding) (None) /hpf 05/11/25 05/11/25 05/11/25 Range/Units 20:43 21:50 23:55 RBC (4.10-5.20) 10*6/uL Hgb (12.0-15.0) g/dL Hct (37.2-46.3) % MCHC (32.0-37.0) g/dL Plt Count (140-440) 10*3/uL MPV (9.5-12.2) fL Immature Gran # (0.00-0.04) 10*3/uL Lymphocytes # (0.90-5.00) 10*3/uL APTT (22.0-30.0) sec VBG pH 7.42 H (7.31-7.41) VBG HCO3 33 H (24-28) mmol/L Sodium (137-145) mmol/L Chloride (98-107) mmol/L Carbon Dioxide (22-30) mmol/L BUN (7-17) mg/dL Creatinine (0.52-1.04) mg/dL Glucose (74-99) mg/dL Phosphorus (2.5-4.5) mg/dL Alkaline Phosphatase (38-126) U/L Troponin I 0.238 H* (0.000-0.034) ng/mL Albumin (3.5-5.0) g/dL TSH (0.465-4.680) mIU/L Urine Appearance Cloudy H (Clear) Urine Protein 1+ H (Negative) Urine Glucose (UA) 4+ H (Negative) Urine Blood Moderate H (Negative) Ur Leukocyte Esterase Large H (Negative) Urine RBC 175 H (0-5) /hpf Urine WBC >182 H (0-5) /hpf Urine WBC Clumps Many H (None) /hpf Urine Mucus Rare H (None) /hpf Urine Yeast (Budding) Moderate H (None) /hpf 03/29/25 03/29/25 03/29/25 Range/Units 04:32 04:32 04:32 RBC 2.50 L (4.10-5.20) 10*6/uL Hgb 7.4 L (12.0-15.0) g/dL Hct 23.8 L (37.2-46.3) % MCHC 31.1 L (32.0-37.0) g/dL Plt Count 100 L (140-440) 10*3/uL MPV 9.0 L (9.5-12.2) fL Immature Gran # 0.05 H (0.00-0.04) 10*3/uL Lymphocytes # 0.83 L (0.90-5.00) 10*3/uL APTT 43.1 H (22.0-30.0) sec VBG pH (7.31-7.41) VBG HCO3 (24-28) mmol/L Sodium (137-145) mmol/L Chloride (98-107) mmol/L Carbon Dioxide (22-30) mmol/L BUN (7-17) mg/dL Creatinine (0.52-1.04) mg/dL Glucose (74-99) mg/dL Phosphorus (2.5-4.5) mg/dL Alkaline Phosphatase (38-126) U/L Troponin I 0.206 H* (0.000-0.034) ng/mL Albumin (3.5-5.0) g/dL TSH (0.465-4.680) mIU/L Urine Appearance (Clear) Urine Protein (Negative) Urine Glucose (UA) (Negative) Urine Blood (Negative) Ur Leukocyte Esterase (Negative) Urine RBC (0-5) /hpf Urine WBC (0-5) /hpf Urine WBC Clumps (None) /hpf Urine Mucus (None) /hpf Urine Yeast (Budding) (None) /hpf 03/29/25 Range/Units 04:32 RBC (4.10-5.20) 10*6/uL Hgb (12.0-15.0) g/dL Hct (37.2-46.3) % MCHC (32.0-37.0) g/dL Plt Count (140-440) 10*3/uL MPV (9.5-12.2) fL Immature Gran # (0.00-0.04) 10*3/uL Lymphocytes # (0.90-5.00) 10*3/uL APTT (22.0-30.0) sec VBG pH (7.31-7.41) VBG HCO3 (24-28) mmol/L Sodium 134 L (137-145) mmol/L Chloride 94 L (98-107) mmol/L Carbon Dioxide 32 H (22-30) mmol/L BUN 26 H (7-17) mg/dL Creatinine 1.20 H (0.52-1.04) mg/dL Glucose 136 H (74-99) mg/dL Phosphorus 4.9 H (2.5-4.5) mg/dL Alkaline Phosphatase 213 H (38-126) U/L Troponin I (0.000-0.034) ng/mL Albumin 2.8 L (3.5-5.0) g/dL TSH (0.465-4.680) mIU/L Urine Appearance (Clear) Urine Protein (Negative) Urine Glucose (UA) (Negative) Urine Blood (Negative) Ur Leukocyte Esterase (Negative) Urine RBC (0-5) /hpf Urine WBC (0-5) /hpf Urine WBC Clumps (None) /hpf Urine Mucus (None) /hpf Urine Yeast (Budding) (None) /hpf Assessment and Plan (1) Endocarditis of mitral valve Current Visit: Yes Status: Acute Code(s): I05.9 - RHEUMATIC MITRAL VALVE DISEASE, UNSPECIFIED SNOMED Code(s): 68423693 (2) Bacteremia Current Visit: No Status: Acute Code(s): R78.81 - BACTEREMIA SNOMED C ode(s): 9394962 Plan: 1patient with recent admission to the hospital and this patient at that time did have Enterococcus faecalis bacteremia with a workup that shows evidence of mitral valve endocarditis for the patient was receiving IV ampicillin and Roce phin has been brought back to the hospital concerning for mental status change and lethargy, clinically not behaving as pneumonia chest x-ray findings are mostly suggestive of CHF in the setting of endocarditis with benefit from repeat echocardiogram to evaluate integrity of the mitral valve patient did have a significantly positive UA but no urinary symptoms questionable asymptomatic bacteriuria. 2patient with multiple antibiotic ALLERGIES that would limit the number of antibiotic safe to use 3will discontinue Zosyn 4we will start the patient on ampicillin 2 g Q6 and switch Rocephin to 2 g every 12 5check inflammatory markers We will follow on clinical condition and cultures to further adjust medication if needed Thank you for this consultation we will follow the patient along with you Dictation was produced using [employer] dictation software. please excuse any grammatical, word or spelling errors. Time with Patient: Greater than 30
[2025-03-30 11:36] LABS: Glucose,Whole Blood 293 mg/dL (70-110)
--- NOTE | 2025-03-30 11:54 | P.CNNES ---
History of Present Illness Consult date: 03/29/25 Requesting physician: Lien Pinto Reason for Consult: abnormal CT History of Present Illness: Patient is a 80-year-old right-handed female came to the hospital by ambulance yesterday at 7:51 PM for increased confusion, lethargy and breathing difficulty. Patient is quite confused, not able to provide much history. As per EMS flowsheet, when they arrived, they were called because patient had increased confusion, increased lethargy, increased work of breathing. Patient normally oriented and moves about nursing center. Patient has been in bed most of the day. Patient was awake oriented x 1. Patient is on continuous home oxygen at 6 L/min by nasal cannula. EKG showed pacemaker rhythm. Patient's blood glucose was 197. Blood pressure was 109/45, pulse rate 68, respiration 18 saturation 100%. Blood test shows CBC with decreased hemoglobin 7.4, platelets 109. PT PTT normal. VBG with pH of 7.42, pCO2 51, HCO3 33. Sodium 133, BUN 26 creatinine 1.19. Ammonia is normal. TSH 10.1, free T41.04. UA shows large amount of leukocyte Estrace, more than 122 WBCs and many clumps. Troponin are mildly elevated. Chest x-ray showed cardiomegaly with bilateral perihilar opacities and left basilar opacity which may represent pulmonary edema from CHF exacerbation versus multifocal pneumonia. Correlate clinically. EKG showed electronic ventricular pacemaker. CT head showed new lacunar infarct within the left thalamus from prior CT 03/08/2025. No evidence for intracranial hemorrhage. Nonspecific white matter changes, likely secondary to chronic small vessel ischemic disease. I personally reviewed CT head, agree with the findings. Patient currently on Lipitor 40 mg, Eliquis 5 mg twice daily, levothyroxine and multiple other medications. I spoke to patient's daughter, who provided with detailed history. She states that patient has no history of dementia, she is very sharp. She was recently hospitalized from 03/08/2025 and discharged on 03/19/2025 with sepsis from Enterococcus faecalis. She was discharged to [facility] for couple weeks to complete her course of antibiotics for sepsis. Since discharge from the hospital she was doing very well. However on the day of admission, on 03/28/2025, in the morning when patient's daughter went to see her, patient asked when her sister is coming to see her, who apparently had about 4 years ago. Patient was also delusional, thinking that she was bitten by a dog. Therefore patient's daughter requested patient to come back to the hospital. Patient's daughter has not noticed any motor deficits. She has been sleeping all day today. Patient has history of aortic and mitral valve replacement on 05/20/2024 at [facility]. Subsequently she had developed CHF. She was recommended oxygen because of persistent difficulty with breathing. Patient has no history of tobacco or alcohol use. She does have diabetes but no hypertension. Patient's daughter also mentioned that she was not discharged on Eliquis on 03/19/2025. It was patient who noticed that she has not been receiving Eliquis, and patient's daughter notified the staff at [facility] and she was resumed on Eliquis on 03/26/2025. Patient denies any headache, dizziness any numbness or tingling, focal weakness, facial droop or slurred speech. Denies any problem with the vision., Review of Systems All pertinent positive and negative review of systems mentioned in the HPI, otherwise unremarkable. Past Medical History Past Medical History: Atrial Fibrillation, Diabetes Mellitus, Hearing Disorder / Deafness, Hyperlipidemia, Osteoarthritis (OA), Pneumonia, Sleep Apnea/CPAP/BIPA P, Thyroid Disorder Additional Past Medical History / Comment(s): USES BIPAP, AORTIC VALVE REPLACEMENT , HX A-FIB WITH PNEUMONIA,CATARACT BL EYE History of Any Multi-Drug Resistant Organisms: VRE Date of last positivie culture/infection: 02/02/13 MDRO Source:: URINE Past Surgical History: Joint Replacement, Orthopedic Surgery, Pacemaker, Tonsillectomy, Tubal Ligation Additional Past Surgical History / Comment(s): JOSEPH THUMB JOINTS REPLACED; JOSEPH CA RPAL TUNNEL RELEASE ; JOSEPH KNEE ARTHROSCOPIES; TOTAL RT KNEE 04/2013, LATER HAD MANIPULATION OF KNEE. HAD THYROID AND PARATHYROID REMOVAL. TOTAL LEFT KNEE REPLACEMENT, CATARACT RT EYE, CATARACT LEFT EYE SURGERY ,COLONOSCOPY, TVAR- 11/2018 , Aortic valve replacement 10/2018 Past Anesthesia/Blood Transfusion Reactions: No Reported Reaction Type of Cardiac Device: Permanent Pacemaker Device Placement Date:: PACEMAKER NOV 2017. Past Psychological History: No Psychological Hx Reported Smoking Status: Never smoker Past Alcohol Use History: None Reported Past Drug Use History: None Reported - Past Family History Daughter(s) Family Medical History: Deep Vein Thrombosis (DVT) Sister(s) Family Medical History: Cancer Additional Family Medical History / Comment(s): BREAST CANCER Medications and Allergies Home Medications Medication Instructions Recorded Confirmed Type Levothyroxine Sodium [Levoxyl] 175 mcg PO DAILY 10/25/20 03/29/25 History FLUoxetine HCL [PROzac] 10 mg PO DAILY 10/08/24 03/29/25 History Insulin Glargine,Hum.rec.anlog 20 units SQ HS 10/08/24 03/29/25 History [Lantus Solostar Pen] Calcium Carbonate [Calcium] 600 mg PO BID 01/28/25 03/29/25 History Acetaminophen Tab [Tylenol] 650 mg PO Q6HR PRN tab 02/05/25 03/29/25 Rx Atorvastatin [Lipitor] 40 mg PO HS #30 tab 02/05/25 03/29/25 Rx Dapagliflozin Propanediol [Farxiga] 10 mg PO DAILY #30 tab 02/05/25 03/29/25 Rx Metoprolol Succinate (ER) [Toprol 25 mg PO HS #30 tab 02/05/25 03/29/25 Rx XL] Ascorbic Acid [Vitamin C] 500 mg PO DAILY #30 tab 02/23/25 03/29/25 Rx Cholecalciferol [Vitamin D3 (125 125 mcg PO DAILY #30 tab 02/23/25 03/29/25 Rx Mcg = 5000 Iu)] Zinc Sulfate [Orazinc] 220 mg PO DAILY 15 Days #15 cap 02/23/25 03/29/25 Rx Ampicillin Sodium 2 gm IVPB Q6HR #140 each 03/19/25 03/29/25 Rx INSULIN LISPRO (HumaLOG) [HumaLOG] 20 unit SQ AC-TID each 03/19/25 03/29/25 Rx Loratadine [Claritin] 10 mg PO DAILY tab 03/19/25 03/29/25 Rx cefTRIAXone [Rocephin] 2 gm IVPB Q12H #70 each 03/19/25 03/29/25 Rx Apixaban [Eliquis] 5 mg PO BID 03/29/25 03/29/25 History Bumetanide [BUMEX] 2 mg PO DAILY 03/29/25 03/29/25 History Omeprazole [PriLOSEC] 20 mg PO DAILY 03/29/25 03/29/25 History Saline Flush 0.9% 10 ml IV Q6H 03/29/25 03/29/25 History Spironolactone [Aldactone] 25 mg PO DAILY 03/29/25 03/29/25 History Allergies Allergy/AdvReac Type Severity Reaction Status Date / Time azithromycin Allergy Rash/Hives Verified 03/29/25 09:48 nitrofurantoin Allergy Rash/Hives Verified 03/29/25 09:48 macrocrystalline [From Macrodantin] phenazopyridine HCl Allergy Rash/Hives Verified 03/29/25 09:48 [From Pyridium] Physical Examination - Vital Signs Vital Signs: Vital Signs Temp Pulse Pulse Resp BP BP Pulse Ox 03/29/25 16:07 97.4 F L 65 20 123/68 99 03/29/25 12:50 98.1 F 67 20 121/65 100 03/29/25 08:18 97.5 F L 72 20 122/71 92 L 03/29/25 04:37 97.6 F 75 20 123/66 03/29/25 02:00 18 03/29/25 00:20 97.7 F 71 20 122/70 99 03/28/25 23:36 68 18 120/59 100 03/28/25 22:17 68 18 120/59 100 03/28/25 20:03 20 03/28/25 19:53 97.9 F 68 20 113/63 100 Intake and Output 03/29/25 03/29/25 03/29/25 06:59 14:59 22:59 Intake Total 100 Output Total 650 Balance -550 Intake: Oral 100 Output: Urine 650 Other: Voiding Method Incontinent Incontinent External Catheter External Catheter # Voids 1 Weight 121 kg 121 kg Patient is an elderly female, appears to have some difficulty with breathing. Patient admits to having some chest pain. She has nasal BiPAP on. Patient was sleeping, but after waking her up, she does become somewhat alert and awake. Patient states it is January and the year is 1997. She knows that she is in the hospital but does not know the name of the hospital. When I asked the city, patient states "[place]". Then she said [facility]. Regarding president, patient states "[place]". I asked if it is Obama, she states "yes". I then asked if it is Mr. Roberto, patient states "yes". Patient states that she lives with her daughter. She knows her date of 1945. She states her age is "47", but then said her age is "61", then "I guess 71". Patient was able to name objects presented like knuckles or earlobe and can repeat very well. No aphasia or dysarthria. Attention, concentration and fund of knowledge are all very limited. On cranial nerve examination, pupils are equal, round and reacting to light, visual castillo are full on confrontation, with no neglect on double simultaneous stimulation. Extraocular muscles are intact with no nystagmus. Face is symmetric, tongue protrudes to the midline. Palatal elevation and sensation normal, hearing is slightly decreased and shoulder shrug normal, facial sensation normal. On muscle strength testing, there is no pronator drift and the strength is normal in arms and legs distally and proximally. Deep tendon reflexes are symmetric 1+ and plantars are withdrawal bilaterally. Sensory to touch is equal with no neglect on double simultaneous stimulation. Cerebellar function showed no ataxia for [id number] testing. No dysdiadochokinesia. No ataxia for [id number] testing on either side. Tone and bulk of muscles normal. Gait deferred.. On general examination, there is no carotid bruit or murmur, S1-S2 audible. Chest is clear on consultation. Abdomen is soft nontender. No organomegaly, bowel sounds present. Peripheral pulses are present. There is moderate peripheral edema. Results - Laboratory Findings CBC and BMP: 03/30/25 07:07 03/30/25 07:07 Abnormal Lab Findings: Abnormal Labs 03/28/25 03/28/25 03/28/25 20:43 20:43 20:43 RBC 2.41 L Hgb 7.4 L Hct 22.5 L MCHC Plt Count 109 L MPV Immature Gran # Lymphocytes # 0.76 L APTT VBG pH VBG HCO3 Sodium 133 L Chloride 94 L Carbon Dioxide 31 H BUN 26 H Creatinine 1.19 H Glucose 158 H Phosphorus Alkaline Phosphatase 214 H Troponin I 0.231 H* Albumin 2.8 L TSH 10.100 H Urine Appearance Urine Protein Urine Glucose (UA) Urine Blood Ur Leukocyte Esterase Urine RBC Urine WBC Urine WBC Clumps Urine Mucus Urine Yeast (Budding) 03/28/25 03/28/25 03/28/25 20:43 21:50 23:55 RBC Hgb Hct MCHC Plt Count MPV Immature Gran # Lymphocytes # APTT VBG pH 7.42 H VBG HCO3 33 H Sodium Chloride Carbon Dioxide BUN Creatinine Glucose Phosphorus Alkaline Phosphatase Troponin I 0.238 H* Albumin TSH Urine Appearance Cloudy H Urine Protein 1+ H Urine Glucose (UA) 4+ H Urine Blood Moderate H Ur Leukocyte Esterase Large H Urine RBC 175 H Urine WBC >182 H Urine WBC Clumps Many H Urine Mucus Rare H Urine Yeast (Budding) Moderate H 03/29/25 03/29/25 03/29/25 04:32 04:32 04:32 RBC 2.50 L Hgb 7.4 L Hct 23.8 L MCHC 31.1 L Plt Count 100 L MPV 9.0 L Immature Gran # 0.05 H Lymphocytes # 0.83 L APTT 43.1 H VBG pH VBG HCO3 Sodium Chloride Carbon Dioxide BUN Creatinine Glucose Phosphorus Alkaline Phosphatase Troponin I 0.206 H* Albumin TSH Urine Appearance Urine Protein Urine Glucose (UA) Urine Blood Ur Leukocyte Esterase Urine RBC Urine WBC Urine WBC Clumps Urine Mucus Urine Yeast (Budding) 03/29/25 04:32 RBC Hgb Hct MCHC Plt Count MPV Immature Gran # Lymphocytes # APTT VBG pH VBG HCO3 Sodium 134 L Chloride 94 L Carbon Dioxide 32 H BUN 26 H Creatinine 1.20 H Glucose 136 H Phosphorus 4.9 H Alkaline Phosphatase 213 H Troponin I Albumin 2.8 L TSH Urine Appearance Urine Protein Urine Glucose (UA) Urine Blood Ur Leukocyte Esterase Urine RBC Urine WBC Urine WBC Clumps Urine Mucus Urine Yeast (Budding) Assessment and Plan Assessment: * Abnormal CT head, with evidence of possible lacunar infarct within the left thalamus. Clinically, there are no focal deficits noted at this time. * Altered mental status, likely due to toxic metabolic encephalopathy. Reasons multifactorial as mentioned below. * Anemia * Thrombocytopenia * Hypercapnia * Mild renal insufficiency * Elevated troponins * Abnormal UA, rule out UTI * Hyponatremia * Hypothyroidism * Abnormal chest x-ray, rule out CHF exacerbation versus pneumonia * Atrial fibrillation, on Eliquis * Diabetes * Hyperlipidemia * Sleep apnea * History of aortic valve replacement 10/2018 * Pacemaker Plan: * CT head reported new lacunar infarct within the left thalamus from prior CT 03/08/2025. No evidence for intracranial hemorrhage. Nonspecific white matter changes, likely secondary to chronic small vessel ischemic disease. * I personally reviewed CT head, agree with the findings. There is hypodensity in the left thalamus, which could be real or could be artifactual as well. However patient has no obvious deficits at this time. Mental confusion could be related to metabolic encephalopathy. * Patient cannot have MRI of the brain because of presence of pacemaker. * Repeat CT head in a couple days to rule out any evolving stroke. * Carotid Doppler revealed no hemodynamically significant stenosis of the ICA on either side. Antegrade flow in both vertebral arteries. * 2D echo performed 01/30/2025 revealed suboptimal study with EF 40 to 45%. Mildly reduced global left ventricular systolic function. Moderate right ventricular dilation. Severe pulmonary hypertension. Moderate right atrial dilation. Severe left atrial dilation. * Continue Eliquis 5 mg twice daily. Also on aspirin 81 mg daily. * Lipid panel with cholesterol 159, LDL 90, HDL 48 and triglycerides 99. Continue Lipitor 40 mg daily. * Hemoglobin A1c 7.4 on 03/22/2025. Recommend optimize control of diabetes to target A1c <7.0. * Patient currently on ampicillin 2 g every 6 hours, ceftriaxone 2 g every 12 hours. ID following. * Treatment of further medical conditions as per IM and other specialties on board. * Thank you for the consult. Time with Patient: Greater than 30
--- NOTE | 2025-03-30 12:12 | P.PN ---
Subjective HISTORY OF PRESENT ILLNESS: This is a 80-year-old female with a past medical history significant for TAVR in 2018 with subsequent aortic valve replacement, mitral valve replacement, tricuspid valve repair done at [facility] in May 2024, paroxysmal atrial fibrillation, hypertension, hyperlipidemia, diabetes, coronary artery disease, pleural effusion with previous thoracentesis, congestive heart failure, endocarditis, and pacemaker implantation. Patient follows in the office with Dr. Watson. We have been asked to see the patient in consultation for elevated troponins. Patient examined at the bedside. Patient's daughter is at the [facility]. Patient has been at [facility] after recent hospitalization here. Yesterday she was confused and did not know where she was at and was asking where her sister was who had a few years ago. Patient's daughter states that she then became very lethargic and was not acting like herself and the decision was made to bring her to the hospital for further evaluation. The patient remains lethargic this morning. She is currently on BiPAP. DIAGNOSTICS: - EKG reveals ventricular paced rhythm. - Chest xray cardiomegaly with bilateral perihilar opacities and left basilar opacity which may represent pulmonary edema from CHF exacerbation versus multifocal pneumonia -CT of the brain new lacunar infarct within the left thalamus - Laboratory data: WBC 8.08. Hemoglobin 7.4. Platelet count 100. Sodium 134. Potassium 3.7. BUN 26. Creatinine 1.20. Troponin 0.231. 0.238. 0.206. - Current home cardiac medications include Aldactone 25 mg daily, Bumex 2 mg daily, Lipitor 40 mg at night. - Most recent echocardiogram obtained in February 2025 revealed ejection fraction of 55 to 60%, no obvious regional wall motion abnormalities bioprosthetic aortic valve with mean gradient 11 mmHg, tricuspid valve repair with mild tricuspid regurgitation - Cardiac catheterization history: 12/2020 with PCI to the mid diagonal 1 and ostial PDA 03/30/2025 Patient examined this morning at the bedside. Patient's daughter is present. Patients mentation has improved today. She is awake and alert and responding appropriately. No complaints of chest pain or shortness of breath. Vital signs are stable. PHYSICAL EXAM: VITAL SIGNS: Reviewed. GENERAL: Well-developed in no acute distress. HEENT: Head is normocephalic. Pupils are equal, round. Sclerae anicteric. Mucous membranes of the mouth are moist. Neck supple. No JVD or thyromegaly LUNGS: Respirations even and unlabored. Lungs diminished bilaterally. HEART: Regular rate and rhythm. S1 and S2 heard. ABDOMEN: Soft. Nondistended. Nontender. EXTREMITIES: Normal range of motion. No clubbing or cyanosis. Peripheral pulses intact. 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 Paroxysmal atrial fibrillation Coronary artery disease with previous stenting to mid diagonal 1 and ostial PDA History of anemia with questionable GI bleed requiring RBC transfusion History of pacemaker implantation Hypertension Hyperlipidemia Diabetes Hypothyroidism PLAN: During recent hospitalization, patient's Eliquis was discontinued due to anemia requiring RBC transfusion with hemoglobin as low as 5.3. Cardiology recommended eventual evaluation for Watchman device. However, patient's Eliquis has been resumed by primary medicine during this admission. Will ultimately defer to their service. Discontinue IV Lasix. Resume home Bumex. Daily weights, accurate intake and output, monitoring of kidney function Further recommendations pending patient course Nurse practitioner note has been reviewed by physician. Signing provider agrees with the documented findings, assessment, and plan of care documented by [employer] as a scribe. Objective - Vital Signs Vital signs: Vital Signs Temp 96.5 F L 03/30/25 08:00 Pulse 63 03/30/25 08:00 Resp 18 03/30/25 08:00 BP 115/68 03/30/25 08:00 Pulse Ox 96 03/30/25 08:00 FiO2 Intake & Output 03/29/25 03/30/25 03/30/25 18:59 06:59 18:59 Intake Total 100 118 Output Total 650 1600 600 Balance -550 -1600 -482 Weight 121 kg 123.5 kg Intake: Oral 100 118 Output: Urine 650 1600 600 Other: Voiding Method Incontinent Incontinent External Catheter External Catheter # Voids 1 - Labs CBC & Chem 7: 03/30/25 07:07 03/30/25 07:07 Labs: Abnormal Lab Results - Last 24 Hours (Table) 03/30/25 03/30/25 03/30/25 Range/Units 07:07 07:07 11:35 RBC 2.58 L (4.10-5.20) 10*6/uL Hgb 7.7 L (12.0-15.0) g/dL Hct 25.1 L (37.2-46.3) % MCV 97.3 H (80.0-97.0) fL MCHC 30.7 L (32.0-37.0) g/dL Plt Count 108 L (140-440) 10*3/uL MPV 9.1 L (9.5-12.2) fL Lymphocytes # 0.72 L (0.90-5.00) 10*3/uL Sodium 134 L (137-145) mmol/L Chloride 95 L (98-107) mmol/L Carbon Dioxide 32 H (22-30) mmol/L BUN 32 H (7-17) mg/dL Creatinine 1.21 H (0.52-1.04) mg/dL Glucose 225 H (74-99) mg/dL POC Glucose (mg/dL) 293 H (70-110) mg/dL Calcium 8.2 L (8.4-10.2) mg/dL
[2025-03-30] MEDS ORDERED: DEXTROSE 50% SYRINGE 50 ML IVP PRN ×2 (12:56)
--- NOTE | 2025-03-30 13:03 | P.PN ---
Subjective Progress Note Date: 03/30/25 Hospital course: Patient is a 80-year-old female with a history of mitral valve replacement has pacemaker, congestive heart failure (EF of 40 to 45%), obstructive sleep apnea on BiPAP at home, on home oxygen at 5 L during the day was brought to the emergency department yesterday after she was found to be confused and altered in a longterm facility where she is undergoing rehab. Patient was recently hospitalized for sepsis, Enterococcus bacteremia, infective endocarditis and was discharged to [facility] on PICC line on IV Rocephin and ampicillin. Currently, patient is feeling better and is AA0 x 1. Her daughter was in the room and as per her shoes less confused and more alert and oriented compared to yesterday but still she is not at her baseline mentation. Patient otherwise denies any shortness of breath, cough, chest pain, nausea, vomiting, diarrhea or constipation. Reports no focal neurological deficits, no dysarthria, asymmetry of the face, no numbness or weakness in upper or lower extremities. Initial lab work shows WBC of 6.56, hemoglobin 7.4, sodium 133, potassium 4.7, BUN 26, creatinine 1.17, glucose 158, alkaline phosphatase 241, troponin I 0.231, NT proBNP 6420, TSH 10.1, free T41.03. Repeat blood work shows WBC 8.0, hemoglobin 7.4, sodium 134, potassium 3.7, BUN 26, creatinine 1.20, troponin I 0.238 and 0.206. Urinalysis shows proteinuria, glycosuria, leukocyte Estrace positive. Chest x-ray shows cardiomegaly with bilateral perihilar opacities with left pleural effusion and vascular congestion noted. EKG shows no ST segment elevation, nonspecific ST-T wave changes, ventricular rate 68 bpm, IA interval 139 ms, QRS duration 154 ms, QTc 478. Brain CT shows new lacunar infarct within the left thalamus and no evidence of intracranial hemorrhage. 03/30/2025: Patient seen and examined at the bedside. Daughter was present in the room. No acute events overnight. No new complaints. Patient is currently on anticoagulation with Eliquis and had a discussion with the neurologist Dr. Mcgill to continue with Eliquis and will repeat CAT scan of the brain today to rule out any evolving stroke. No concerns for active bleeding. Lab work from today shows stable hemoglobin of 7.7. Platelet count 108. Sodium 134, potassium 4.0, BUN 32, creatinine 1.21, glucose 225, calcium 8.2. Risk versus benefit of being on anticoagulation has also been discussed with patient's daughter who was present at the bedside today. Physical examination: Vital signs reviewed General: non toxic, no distress, appears at stated age, morbidly obese Derm: no unusual rashes/lesions, warm Head: atraumatic, normocephalic, symmetric Eyes: EOMI, no lid lag, anicteric sclera, pupils equal round reactive to light ENT: Nose and ears atraumatic Neck: No cervical lymphadenopathy, trachea midline, supple Mouth: no lip lesion, mucus membranes moist Cardiovascular: S1S2 reg, no murmur, positive dorsalis pedis pulse bilateral, 2+ pitting edema Lungs: CTA bilateral, no rhonchi, no rales, no accessory muscle use Abdominal: soft, nontender to palpation, no guarding Ext: muscle strength 5 out of 5 in all 4 extremities grossly, no gross muscle atrophy, no contractures, Neuro: CN II-XI grossly intact, no gross focal neuro deficits Psych: Alert, oriented, appropriate affect Assessment/Plan: Patient is a 80-year-old female with a history of mitral valve replacement has pacemaker, congestive heart failure (EF of 40 to 45%), obstructive sleep apnea on BiPAP at home, on home oxygen at 5 L during the day was brought to the emergency department for altered mental status. Case was discussed with the Emergency Room provider and decision was made to admit the patient for altered mental status. Active: #Acute toxic metabolic encephalopathy, infectious versus neurologic #Complicated UTI #Left lacunar infarct on CT brain #Recent history of Enterococcus bacteremia and infective endocarditis on IV Rocephin and ampicillin through PICC line Infectious disease on board Continue with IV Rocephin and ampicillin Chest x-ray does show left pleural opacity but no pneumonia less likely Blood culture, sputum culture, urine culture, urine Legionella antigen has been ordered by ED, report pending Urinalysis is positive for UTI Neurology on board Continue aspirin 81 mg once daily and Eliquis 5 mg p.o. twice daily Carotid duplex ultrasound normal Plan discussed with neurologist Dr. Mcgill, will repeat CAT scan of the brain today to rule out any evolving stroke, will continue with Eliquis and aspirin for now. 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 daily and Toprol-XL 25 mg p.o. at bedtime Resume Farxizoie #Obesity hypoventilation syndrome on 5 L of oxygen at home #Obstructive sleep apnea on BiPAP at home DuoNebs as needed Continue with oxygen, patient currently at baseline #Type 2 diabetes mellitus Continue with the Lantus 20 units at bedtime Start patient on sliding scale insulin Continue monitor for hypoglycemia Chronic: Hypothyroidism: Resume Synthroid Anxiety/depression: Resume Prozac GERD: Resume omeprazole DVT prophylaxis: Eliquis 5 mg p.o. twice daily GI prophylaxis: Omeprazole F: None E: Replete as needed N: Heart healthy diet A: Ambulatory at baseline CODE STATUS: Full code Discussed with: Patient Anticipated discharge place: Pending clinical course Dictation was produced using Program[employer] dictation software. Please excuse any grammatical, word or spelling errors. Objective - Vital Signs Vital signs: Vital Signs Temp 97.4 F L 03/30/25 12:00 Pulse 68 03/30/25 12:00 Resp 14 03/30/25 12:00 BP 120/67 03/30/25 12:00 Pulse Ox 99 03/30/25 12:00 FiO2 Intake & Output 03/29/25 03/30/25 03/30/25 18:59 06:59 18:59 Intake Total 100 118 Output Total 650 1600 600 Balance -254 -1600 -570 Weight 121 kg 123.5 kg Intake: Oral 100 118 Output: Urine 650 1600 600 Other: Voiding Method Incontinent Incontinent External Catheter External Catheter # Voids 1 - Labs CBC & Chem 7: 04/04/25 08:33 04/05/25 07:03 Labs: Abnormal Lab Results - Last 24 Hours (Table) 03/30/25 03/30/25 03/30/25 Range/Units 07:07 07:07 11:35 RBC 2.58 L (4.10-5.20) 10*6/uL Hgb 7.7 L (12.0-15.0) g/dL Hct 25.1 L (37.2-46.3) % MCV 97.3 H (80.0-97.0) fL MCHC 30.7 L (32.0-37.0) g/dL Plt Count 108 L (140-440) 10*3/uL MPV 9.1 L (9.5-12.2) fL Lymphocytes # 0.72 L (0.90-5.00) 10*3/uL Sodium 134 L (137-145) mmol/L Chloride 95 L (98-107) mmol/L Carbon Dioxide 32 H (22-30) mmol/L BUN 32 H (7-17) mg/dL Creatinine 1.21 H (0.52-1.04) mg/dL Glucose 225 H (74-99) mg/dL POC Glucose (mg/dL) 293 H (70-110) mg/dL Calcium 8.2 L (8.4-10.2) mg/dL Assessment and Plan Assessment: Attestation Attestation/ Software Designer Note: Attestation to Progress Note, Participation (I saw and evaluated the patient with the Resident, and I reviewed and discussed the patient with the Resident and agree with the Resident's findings and plans as documented above., management reviewed and discussed), I agree with findings & plan, Provider Signature (ALEX WESTON MD Time with Patient: Greater than 30
--- NOTE | 2025-03-30 14:43 | CT ---
EXAMINATION TYPE: CT brain wo con DATE OF EXAM: 03/30/2025 COMPARISON: 03/28/2025 CLINICAL INDICATION: Female, 80 years old with history of follow up cva; [facility], FOLLOW UP CVA CT DLP: 1171.4 mGycm Automated exposure control for dose reduction was used. Findings: The ventricles, basal cisterns and sulci over convexities are moderately enlarged consistent with mod erate age-appropriate atrophy. There is mild to moderate decreased density in the periventricular white matter consistent with mild to moderate chronic ischemic white matter demyelination. There is no mass effect or shift of the midline structures. The acute infarct in the left thalamus is again seen. There is no acute intra or extra-axial hemorrhage. Posterior fossa is grossly normal. The intraorbital contents appear normal with symmetric. There is a mucous retention cyst or polyp in the right maxillary sinus otherwise the paranasal sinuse s and mastoid air cells are well aerated. IMPRESSION: 1. Acute infarct in left thalamus again seen. Appears slightly more prominent in size. 2. No acute intra or extra-axial hemorrhage. No mass effect or shift of midline structures. 3. Moderate age-appropriate atrophy and chronic ischemic white matter demyelination. [facility], , 03/30/2025 2:41 PM
[2025-03-30 16:10] LABS: Glucose,Whole Blood 333 mg/dL (70-110)
--- NOTE | 2025-03-30 16:21 | P.PN ---
Subjective Progress Note Date: 03/30/25 Principal diagnosis: Reason for follow-up is mitral valve endocarditis Patient is a 80-year-old female with a past medical history significant for diabetes mellitus hypertension hyperlipidemia atrial fibrillation recent admission to this facility patient did have a Enterococcus faecalis bacteremia MELISSA did shows evidence of mitral valve endocarditis and the patient was on outpatient IV biotics and brought back to the hospital with confusion mental status changes did have abnormal x-ray concerning for possible CHF. On today's evaluation that is 03/30/2025, the patient continues to be afebrile, the patient is on 5 L nasal oxygen and breathing comfortably, the Pt denies having any chest pain or cough, the patient denies having any abdominal pain no vomiting or any diarrhea. Patient white count 6.1, creatinine is 1.21 urine is growing yeast blood cultures so far negative Objective - Vital Signs Vital signs: Vital Signs Temp 97.4 F L 03/30/25 12:00 Pulse 68 03/30/25 12:00 Resp 14 03/30/25 12:00 BP 120/67 03/30/25 12:00 Pulse Ox 99 03/30/25 12:00 FiO2 Intake & Output 03/29/25 03/30/25 03/30/25 18:59 06:59 18:59 Intake Total 100 118 Output Total 650 1600 600 Balance -089 -1600 -266 Weight 121 kg 123.5 kg Intake: Oral 100 118 Output: Urine 650 1600 600 Other: Voiding Method Incontinent Incontinent External Catheter External Catheter # Voids 1 - Exam GENERAL DESCRIPTION: An elderly female lying in bed in no distress RESPIRATORY SYSTEM: Unlabored breathing , decreased breath sounds at bases HEART: S1 S2 regular rate and rhythm , ABDOMEN: Soft , no tenderness - Labs CBC & Chem 7: 03/30/25 07:07 03/30/25 07:07 Labs: Abnormal Lab Results - Last 24 Hours (Table) 03/30/25 03/30/25 03/30/25 Range/Units 07:07 07:07 11:35 RBC 2.58 L (4.10-5.20) 10*6/uL Hgb 7.7 L (12.0-15.0) g/dL Hct 25.1 L (37.2-46.3) % MCV 97.3 H (80.0-97.0) fL MCHC 30.7 L (32.0-37.0) g/dL Plt Count 108 L (140-440) 10*3/uL MPV 9.1 L (9.5-12.2) fL Lymphocytes # 0.72 L (0.90-5.00) 10*3/uL Sodium 134 L (137-145) mmol/L Chloride 95 L (98-107) mmol/L Carbon Dioxide 32 H (22-30) mmol/L BUN 32 H (7-17) mg/dL Creatinine 1.21 H (0.52-1.04) mg/dL Glucose 225 H (74-99) mg/dL POC Glucose (mg/dL) 293 H (70-110) mg/dL Calcium 8.2 L (8.4-10.2) mg/dL Assessment and Plan (1) Endocarditis of mitral valve Current Visit: Yes Status: Acute Code(s): I05.9 - RHEUMATIC MITRAL VALVE DISEASE, UNSPECIFIED SNOMED Code(s): 16781102 (2) Bacteremia Current Visit: No Status: Acute Code(s): R78.81 - BACTEREMIA SNOMED Code(s): 3682215 Plan: 1patient with recent admission to the hospital and this patient at that time did have Enterococcus faecalis bacteremia with a workup that shows evidence of mitral valve endocarditis for the patient was receiving IV ampicillin and Rocephin has been brought back to the hospital concerning for mental status change and lethargy, clinically not behaving as pneumonia chest x-ray findings are mostly suggestive of CHF in the setting of endocarditis with benefit from repeat echocardiogram to evaluate integrity of the mitral valve which will be ordered 2-patient did have a significantly positive UA but no urinary symptoms questionable asymptomatic bacteriuria. 3patient with multiple antibiotic ALLERGIES that would limit the number of antibiotic safe to use 4patient to continue ampicillin 2 g Q6 and switch Rocephin to 2 g every 12 and monitor clinical course closely Dictation was produced using Y[employer] dictation software. please excuse any grammatical, word or spelling errors. Time with Patient: Less than 30
[2025-03-30] MEDS: INSULIN LISPRO (HumaLOG) 100 UNIT/ML 10 mL VL SQ SCH (17:46)
[2025-03-30 20:24] LABS: Glucose,Whole Blood 318 mg/dL (70-110)
[2025-03-31 06:07] LABS: Glucose,Whole Blood 167 mg/dL (70-110)
[2025-03-31 07:24] LABS: African American GFR (CKD) 46 (>60 ml/min/1.73 sqM); Anion Gap 5 mmol/L; Blood Urea Nitrogen 32 mg/dL (7-17); Calcium 8.6 mg/dL (8.4-10.2); Carbon Dioxide 36 mmol/L (22-30); Chloride 95 mmol/L (98-107); Glucose 154 mg/dL (74-99); Non-African American GFR(CKD) 40 (>60 ml/min/1.73 sqM); Potassium 3.9 mmol/L (3.5-5.1); Sodium 136 mmol/L (137-145)
[2025-03-31] MEDS: BUMETANIDE 1 MG TAB PO SCH (09:09)
--- NOTE | 2025-03-31 09:38 | P.PN ---
Subjective Progress Note Date: 03/31/25 Hospital course: Patient is a 80-year-old female with a history of mitral valve replacement has pacemaker, congestive heart failure (EF of 40 to 45%), obstructive sleep apnea on BiPAP at home, on home oxygen at 5 L during the day was brought to the emergency department yesterday after she was found to be confused and altered in a [facility] facility where she is undergoing rehab. Patient was recently hospitalized for sepsis, Enterococcus bacteremia, infective endocarditis and was discharged to [facility] on PICC line on IV Rocephin and ampicillin. Currently, patient is feeling better and is AA0 x 1. Her daughter was in the room and as per her shoes less confused and more alert and oriented compared to yesterday but still she is not at her baseline mentation. Patient otherwise denies any shortness of breath, cough, chest pain, nausea, vomiting, diarrhea or constipation. Reports no focal neurological deficits, no dysarthria, asymmetry of the face, no numbness or weakness in upper or lower extremities. Initial lab work shows WBC of 6.56, hemoglobin 7.4, sodium 133, potassium 4.7, BUN 26, creatinine 1.17, glucose 158, alkaline phosphatase 241, troponin I 0.231, NT proBNP 6420, TSH 10.1, free T41.03. Repeat blood work shows WBC 8.0, hemoglobin 7.4, sodium 134, potassium 3.7, BUN 26, creatinine 1.20, troponin I 0.238 and 0.206. Urinalysis shows proteinuria, glycosuria, leukocyte Estrace positive. Chest x-ray shows cardiomegaly with bilateral perihilar opacities with left pleural effusion and vascular congestion noted. EKG shows no ST segment elevation, nonspecific ST-T wave changes, ventricular rate 68 bpm, CT interval 139 ms, QRS duration 154 ms, QTc 478. Brain CT shows new lacunar infarct within the left thalamus and no evidence of intracranial hemorrhage. 03/30/2025: Patient seen and examined at the bedside. Daughter was present in the room. No acute events overnight. No new complaints. Patient is currently on anticoagulation with Eliquis and had a discussion with the neurologist Dr. Mcgill to continue with Eliquis and will repeat CAT scan of the brain today to rule out any evolving stroke. No concerns for active bleeding. Lab work from today shows stable hemoglobin of 7.7. Platelet count 108. Sodium 134, potassium 4.0, BUN 32, creatinine 1.21, glucose 225, calcium 8.2. Risk versus benefit of being on anticoagulation has also been discussed with patient's daughter who was present at the bedside today. 03/31/2025: Patient seen and examined at the bedside. Daughter was present in the room. No acute events overnight. No new complaints. Patient is AAO x 1. As per daughter, patient is still not at her baseline mentation. Patient on home BiPAP overnight for sleeping with settings of FiO2 40, flow rate of 5. Patient continues to be on Eliquis and aspirin. Repeat CT of the brain showed evolving left lacunar infarct. No new focal neurological deficit. No concerns for active bleeding. Sodium 136, potassium 3.9, chloride 95, bicarb 36, BUN 32, cr eatinine 1.29, glucose 154, calcium 8.6. Physical examination: Vital signs reviewed General: non toxic, no distress, appears at stated age, morbidly obese Derm: no unusual rashes/lesions, warm Head: atraumatic, normocephalic, symmetric Eyes: EOMI, no lid lag, anicteric sclera, pupils equal round reactive to light ENT: Nose and ears atraumatic Neck: No cervical lymphadenopathy, trachea midline, supple Mouth: no lip lesion, mucus membranes moist Cardiovascular: S1S2 reg, no murmur, positive dorsalis pedis pulse bilateral, 2+ pitting edema Lungs: CTA bilateral, no rhonchi, no rales, no accessory muscle use Abdominal: soft, nontender to palpation, no guarding Ext: muscle strength 5 out of 5 in all 4 extremities grossly, no gross muscle atrophy, no contractures, Neuro: CN II-XI grossly intact, no gross focal neuro deficits Psych: Alert, oriented, appropriate affect Assessment/Plan: Patient is a 80-year-old female with a history of mitral valve replacement has pacemaker, congestive heart failure (EF of 40 to 45%), obstructive sleep apnea on BiPAP at home, on home oxygen at 5 L during the day was brought to the emergency department for altered mental status. Case was discussed with the Emergency Room provider and decision was made to admit the patient for altered mental status. Active: #Acute toxic metabolic encephalopathy, infectious versus neurologic #Complicated UTI #Left lacunar infarct on CT brain #Recent history of Enterococcus bacteremia and infective endocarditis on IV Rocephin and ampicillin through PICC line Infectious disease on board Continue with IV Rocephin and ampicillin Chest x-ray does show left pleural opacity but no pneumonia less likely Blood culture, sputum culture, urine culture, urine Legionella antigen has been ordered by ED, report pending Urinalysis is positive for UTI Neurology on board Continue aspirin 81 mg once daily and Eliquis 5 mg p.o. twice daily Carotid duplex ultrasound normal Repeat CT of the brain showed evolving left lacunar stroke, continue on Eliquis #Elevated troponins likely secondary to type II NSTEMI #Valvular heart disease status post TAVR (2017), subsequently aortic valve repl acement, mitral valve replacement, tricuspid valve repair in May 2024 #Acute on chronic HFpEF, echocardiogram on 03/10/2025 with ejection fraction of 55 to 60% Troponin I trending flat Continue with Bumex 2 mg p.o. daily Cardiology on board Continue with Aldactone 25 mg p.o. daily and Toprol-XL 25 mg p.o. at bedtime Continue Farxiga #Obesity hypoventilation syndrome on 5 L of oxygen at home #Obstructive sleep apnea on BiPAP at home DuoNebs as needed Continue with oxygen, patient currently at baseline #Type 2 diabetes mellitus Continue with the Lantus 20 units at bedtime Start patient on sliding scale insulin Continue monitor for hypoglycemia #Subclinical hypothyroidism Continue with Synthroid Chronic: Hypothyroidism: Resume Synthroid Anxiety/depression: Resume Prozac GERD: Resume omeprazole DVT prophylaxis: Eliquis 5 mg p.o. twice daily GI prophylaxis: Omeprazole F: None E: Replete as needed N: Heart healthy diet A: Ambulatory at baseline CODE STATUS: Full code Discussed with: Patient Anticipated discharge place: Pending clinical course Dictation was produced using [employer] dictation software. Please excuse any grammatical, word or spelling errors. Objective - Vital Signs Vital signs: Vital Signs Temp 97.8 F 03/31/25 09:02 Pulse 80 03/31/25 09:02 Resp 14 03/31/25 09:02 BP 118/65 03/31/25 09:02 Pulse Ox 100 03/31/25 09:02 FiO2 40 03/31/25 04:17 Intake & Output 03/30/25 03/31/25 03/31/25 18:59 06:59 18:59 Intake Total 354 120 Output Total 1999 500 Balance -1646 -500 120 Weight 118.5 kg Intake: Oral 354 120 Output: Urine 1999 Other: Voiding Method External Catheter External Catheter # Voids 550 1 - Labs CBC & Chem 7: 04/04/25 08:33 04/05/25 07:03 Labs: Abnormal Lab Results - Last 24 Hours (Table) 03/30/25 03/30/25 03/30/25 Range/Units 07:07 07:07 11:35 Sodium (137-145) mmol/L Chloride (98-107) mmol/L Carbon Dioxide (22-30) mmol/L BUN (7-17) mg/dL Creatinine (0.52-1.04) mg/dL Glucose (74-99) mg/dL POC Glucose (mg/dL) 293 H (70-110) mg/dL Vitamin B12 1033.0 H (200.0-944.0) pg/mL Folate 4.20 L (4.40-31.00) ng/mL 03/30/25 03/30/25 03/31/25 Range/Units 16:09 20:21 06:05 Sodium (137-145) mmol/L Chloride (98-107) mmol/L Carbon Dioxide (22-30) mmol/L BUN (7-17) mg/dL Creatinine (0.52-1.04) mg/dL Glucose (74-99) mg/dL POC Glucose (mg/dL) 333 H 318 H 167 H (70-110) mg/dL Vitamin B12 (200.0-944.0) pg/mL Folate (4.40-31.00) ng/mL 03/31/25 Range/Units 06:45 Sodium 136 L (137-145) mmol/L Chloride 95 L (98-107) mmol/L Carbon Dioxide 36 H (22-30) mmol/L BUN 32 H (7-17) mg/dL Creatinine 1.29 H (0.52-1.04) mg/dL Glucose 154 H (74-99) mg/dL POC Glucose (mg/dL) (70-110) mg/dL Vitamin B12 (200.0-944.0) pg/mL Folate (4.40-31.00) ng/mL Microbiology - Last 24 Hours (Table) 03/28/25 21:50 Urine Culture - Preliminary Urine,Voided Yeast species 03/28/25 23:19 Blood Culture - Preliminary Blood Assessment and Plan Assessment: Attestation Attestation/ Grades 7 8 Tutor Note: Attestation to Progress Note, Participation (I saw and evaluated the patient with the Resident, and I reviewed and discussed the patient with the Resident and agree with the Resident's findings and plans as documented above., management reviewed and discussed), I agree with findings & plan, Provider Signature (ENRICO DANIELLE, ALEX Vela Time with Patient: Greater than 30
[2025-03-31 09:54] LABS: Basophils # (A) 0.05 10*3/uL (0.00-0.10); Basophils % (A) 0.8 %; Eosinophils # (A) 0.17 10*3/uL (0.04-0.35); Eosinophils % (A) 2.6 %; HCT 26.1 % (37.2-46.3); HGB 8.2 g/dL (12.0-15.0); Lymphocytes # (A) 0.73 10*3/uL (0.90-5.00); MCH 30.5 pg (27.0-32.0); MCHC 31.4 g/dL (32.0-37.0); Mean Platelet Volume 10.1 fL (9.5-12.2); Monocytes # (A) 0.34 10*3/uL (0.20-1.00); Monocytes % (A) 5.1 %; Neutrophils # (A) 5.31 10*3/uL (1.80-7.70); Neutrophils % (A) 79.7 %; Platelet Count 155 10*3/uL (140-440); RBC 2.69 10*6/uL (4.10-5.20); RDW 17.3 % (11.5-14.5); WBC 6.65 10*3/uL (4.50-10.00)
--- NOTE | 2025-03-31 10:22 | P.PN ---
Subjective Progress Note Date: 03/30/25 Patient was seen for a follow-up. Patient is laying comfortably in the bed. Patient's daughter was present at the bedside. Patient continues to have somewhat slow mentation. Objective - Vital Signs Vital signs: Vital Signs Temp 97.4 F L 03/30/25 12:00 Pulse 68 03/30/25 12:00 Resp 14 03/30/25 12:00 BP 120/67 03/30/25 12:00 Pulse Ox 99 03/30/25 12:00 FiO2 Intake & Output 03/29/25 03/30/25 03/30/25 18:59 06:59 18:59 Intake Total 100 236 Output Total 650 1600 1400 Balance -550 1600 1169 Weight 121 kg 123.5 kg Intake: Oral 100 236 Output: Urine 650 1600 1400 Other: Voiding Method Incontinent Incontinent External Catheter External Catheter External Catheter # Voids 1 550 - Exam Patient is more alert and awake. She believes it is March 1994 and then said is 1997. She knows that she is in [place], but could not tell the city. She can name knuckles. Speech has no dysarthria. Attention, concentration, fund of knowledge is limited. Patient has slow mentation. Delayed latency time to answer questions. There is no ataxia for [id number] testing. No pronator drift. Sensations appears equal. - Labs CBC & Chem 7: 03/31/25 06:45 03/31/25 06:45 Labs: Abnormal Lab Results - Last 24 Hours (Table) 03/30/25 03/30/25 03/30/25 Range/Units 07:07 07:07 07:07 RBC 2.58 L (4.10-5.20) 10*6/uL Hgb 7.7 L (12.0-15.0) g/dL Hct 25.1 L (37.2-46.3) % MCV 97.3 H (80.0-97.0) fL MCHC 30.7 L (32.0-37.0) g/dL Plt Count 108 L (140-440) 10*3/uL MPV 9.1 L (9.5-12.2) fL Lymphocytes # 0.72 L (0.90-5.00) 10*3/uL Sodium 134 L (137-145) mmol/L Chloride 95 L (98-107) mmol/L Carbon Dioxide 32 H (22-30) mmol/L BUN 32 H (7-17) mg/dL Creatinine 1.21 H (0.52-1.04) mg/dL Glucose 225 H (74-99) mg/dL POC Glucose (mg/dL) (70-110) mg/dL Calcium 8.2 L (8.4-10.2) mg/dL Vitamin B12 1033.0 H (200.0-944.0) pg/mL Folate (4.40-31.00) ng/mL 03/30/25 03/30/25 03/30/25 Range/Units 07:07 11:35 16:09 RBC (4.10-5.20) 10*6/uL Hgb (12.0-15.0) g/dL Hct (37.2-46.3) % MCV (80.0-97.0) fL MCHC (32.0-37.0) g/dL Plt Count (140-440) 10*3/uL MPV (9.5-12.2) fL Lymphocytes # (0.90-5.00) 10*3/uL Sodium (137-145) mmol/L Chloride (98-107) mmol/L Carbon Dioxide (22-30) mmol/L BUN (7-17) mg/dL Creatinine (0.52-1.04) mg/dL Glucose (74-99) mg/dL POC Glucose (mg/dL) 293 H 333 H (70-110) mg/dL Calcium (8.4-10.2) mg/dL Vitamin B12 (200.0-944.0) pg/mL Folate 4.20 L (4.40-31.00) ng/mL Microbiology - Last 24 Hours (Table) 03/28/25 21:50 Urine Culture - Preliminary Urine,Voided Yeast species 03/28/25 23:19 Blood Culture - Preliminary Blood Assessment and Plan Assessment: * 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 Patient had mild aphasia, improving. * Altered mental status, likely due to toxic metabolic encephalopathy. Reasons multifactorial as mentioned below. * Anemia * Thrombocytopenia * Hypercapnia * Mild renal insufficiency * Elevated troponins * Abnormal UA, rule out UTI * Hyponatremia * Hypothyroidism * Abnormal chest x-ray, rule out CHF exacerbation versus pneumonia * Atrial fibrillation, on Eliquis * Diabetes * Hyperlipidemia * Sleep apnea * History of aortic valve replacement 10/2018 * Pacemaker * Folate deficiency Plan: * Repeat CT head performed today revealed acute infarct in the left thalamus. Appears slightly more prominent in size. No acute intra or extra-axial hemorrhage. No mass effect or midline shift. Moderate age-appropriate atrophy and chronic ischemic white matter demyelination. I personally reviewed CT head, agree with the findings. There is evidence of an acute to subacute left thalamic infarct. * Initial CT head reported new lacunar infarct within the left thalamus from prior CT 03/08/2025. No evidence for intracranial hemorrhage. Nonspecific white matter changes, likely secondary to chronic small vessel ischemic disease. * Carotid Doppler revealed no hemodynamically significant stenosis of the ICA on either side. Antegrade flow in both vertebral arteries. * 2D echo performed 01/30/2025 revealed suboptimal study with EF 40 to 45%. Mildly reduced global left ventricular systolic function. Moderate right ventricular dilation. Severe pulmonary hypertension. Moderate right atrial dilation. Severe left atrial dilation. * Continue Eliquis 5 mg twice daily. Also on aspirin 81 mg daily. May stop aspirin, if okay with cardiology. Neurologically patient only needs Eliquis. * Lipid panel with cholesterol 159, LDL 90, HDL 48 and triglycerides 99. Co ntinue Lipitor 40 mg daily. * Hemoglobin A1c 7.4 on 03/22/2025. Recommend optimize control of diabetes to target A1c <7.0. * B12 1033, folate is low 4.20. We will start folate replacement. TSH is 10.10 and free T4 1.04. We will defer to IM to address hypothyroidism. * Patient currently on ampicillin 2 g every 6 hours, ceftriaxone 2 g every 12 hours. ID following. * Treatment of further medical conditions as per IM and other specialties on board. * Discussed with patient's daughter, cardiology and primary team.
[2025-03-31 11:29] LABS: Glucose,Whole Blood 246 mg/dL (70-110)
[2025-03-31] MEDS: FOLIC ACID 1 MG TAB PO SCH (12:09)
--- NOTE | 2025-03-31 13:16 | P.PN ---
Subjective HISTORY OF PRESENT ILLNESS: This is a 80-year-old female with a past medical history significant for TAVR in 2018 with subsequent aortic valve replacement, mitral valve replacement, tricuspid valve repair done at [facility] in May 2024, paroxysmal atrial fibrillation, hypertension, hyperlipidemia, diabetes, coronary artery disease, pleural effusion with previous thoracentesis, congestive heart failure, endocarditis, and pacemaker implantation. Patient follows in the office with Dr. Watson. We have been asked to see the patient in consultation for elevated troponins. Patient examined at the bedside. Patient's daughter is at the [facility]. Patient has been at [facility] after recent hospitalization here. Yesterday she was confused and did not know where she was at and was asking where her sister was who had a few years ago. Patient's daughter states that she then became very lethargic and was not acting like herself and the decision was made to bring her to the hospital for further evaluation. The patient remains lethargic this morning. She is currently on BiPAP. DIAGNOSTICS: - EKG reveals ventricular paced rhythm. - Chest xray cardiomegaly with bilateral perihilar opacities and left basilar opacity which may represent pulmonary edema from CHF exacerbation versus multifocal pneumonia -CT of the brain new lacunar infarct within the left thalamus - Laboratory data: WBC 8.08. Hemoglobin 7.4. Platelet count 100. Sodium 134. Potassium 3.7. BUN 26. Creatinine 1.20. Troponin 0.231. 0.238. 0.206. - Current home cardiac medications include Aldactone 25 mg daily, Bumex 2 mg daily, Lipitor 40 mg at night. - Most recent echocardiogram obtained in February 2025 revealed ejection fraction of 55 to 60%, no obvious regional wall motion abnormalities bioprosthetic aortic valve with mean gradient 11 mmHg, tricuspid valve repair with mild tricuspid regurgitation - Cardiac catheterization history: 12/2020 with PCI to the mid diagonal 1 and ostial PDA 03/30/2025 Patient examined this morning at the bedside. Patient's daughter is present. Patients mentation has improved today. She is awake and alert and responding appropriately. No complaints of chest pain or shortness of breath. Vital signs are stable. 03/31/2025 Patient examined this morning at the bedside. Repeat CT of the brain yesterday revealed acute infarct in left thalamus. No evidence of hemorrhage. Patient is currently awake and eating lunch. She denies any chest pain or pressure. She denies any shortness of breath. Vital signs are stable. PHYSICAL EXAM: VITAL SIGNS: Reviewed. GENERAL: Well-developed in no acute distress. HEENT: Head is normocephalic. Pupils are equal, round. Sclerae anicteric. Mucous membranes of the mouth are moist. Neck supple. No JVD or thyromegaly LUNGS: Respirations even and unlabored. Lungs diminished bilaterally. HEART: Regular rate and rhythm. S1 and S2 heard. ABDOMEN: Soft. Nondistended. Nontender. EXTREMITIES: Normal range of motion. No clubbing or cyanosis. Peripheral pulses intact. 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, likely source from sacral decubitus ulcer Acute on chronic heart failure with reduced EF, 40 to 45% Valvular heart disease status post TAVR 2017 with subsequent open aortic valve replacement, mitral valve replacement, and tricuspid valve repair, May 2024 at [facility] Paroxysmal atrial fibrillation Coronary artery disease with previous stenting to mid diagonal 1 and ostial PDA History of anemia with questionable GI bleed requiring RBC transfusion History of pacemaker implantation Hypertension Hyperlipidemia Diabetes Hypothyroidism PLAN: Continue cardiac medications including Eliquis, aspirin, Lipitor, Bumex, Farxiga, metoprolol, and Aldactone Further recommendations pending patient course Nurse practitioner note has been reviewed by physician. Signing provider agrees with the documented findings, assessment, and plan of care documented by CUTTING MACHINE OPERATOR as a scribe. Objective - Vital Signs Vital signs: Vital Signs Temp 97.8 F 03/31/25 09:02 Pulse 80 03/31/25 09:02 Resp 14 03/31/25 09:02 BP 118/65 03/31/25 09:02 Pulse Ox 100 03/31/25 09:02 FiO2 40 03/31/25 04:17 Intake & Output 03/30/25 03/31/25 03/31/25 18:59 06:59 18:59 Intake Total 354 120 Output Total 1999 500 Balance -1646 -500 120 Weight 118.5 kg Intake: Oral 354 120 Output: Urine 1999 500 Other: Voiding Method External Catheter External Catheter # Voids 550 1 - Labs CBC & Chem 7: 03/31/25 06:45 03/31/25 06:45 Labs: Abnormal Lab Results - Last 24 Hours (Table) 03/30/25 03/30/25 03/30/25 Range/Units 07:07 07:07 11:35 RBC (4.10-5.20) 10*6/uL Hgb (12.0-15.0) g/dL Hct (37.2-46.3) % MCHC (32.0-37.0) g/dL Immature Gran # (0.00-0.04) 10*3/uL Lymphocytes # (0.90-5.00) 10*3/uL Sodium (137-145) mmol/L Chloride (98-107) mmol/L Carbon Dioxide (22-30) mmol/L BUN (7-17) mg/dL Creatinine (0.52-1.04) mg/dL Glucose (74-99) mg/dL POC Glucose (mg/dL) 293 H (70-110) mg/dL Vitamin B12 1033.0 H (200.0-944.0) pg/mL Folate 4.20 L (4.40-31.00) ng/mL 03/30/25 03/30/25 03/31/25 Range/Units 16:09 20:21 06:05 RBC (4.10-5.20) 10*6/uL Hgb (12.0-15.0) g/dL Hct (37.2-46.3) % MCHC (32.0-37.0) g/dL Immature Gran # (0.00-0.04) 10*3/uL Lymphocytes # (0.90-5.00) 10*3/uL Sodium (137-145) mmol/L Chloride (98-107) mmol/L Carbon Dioxide (22-30) mmol/L BUN (7-17) mg/dL Creatinine (0.52-1.04) mg/dL Glucose (74-99) mg/dL POC Glucose (mg/dL) 333 H 318 H 167 H (70-110) mg/dL Vitamin B12 (200.0-944.0) pg/mL Folate (4.40-31.00) ng/mL 03/31/25 03/31/25 Range/Units 06:45 06:45 RBC 2.69 L (4.10-5.20) 10*6/uL Hgb 8.2 L (12.0-15.0) g/dL Hct 26.1 L (37.2-46.3) % MCHC 31.4 L (32.0-37.0) g/dL Immature Gran # 0.05 H (0.00-0.04) 10*3/uL Lymphocytes # 0.73 L (0.90-5.00) 10*3/uL Sodium 136 L (137-145) mmol/L Chloride 95 L (98-107) mmol/L Carbon Dioxide 36 H (22-30) mmol/L BUN 32 H (7-17) mg/dL Creatinine 1.29 H (0.52-1.04) mg/dL Glucose 154 H (74-99) mg/dL POC Glucose (mg/dL) (70-110) mg/dL Vitamin B12 (200.0-944.0) pg/mL Folate (4.40-31.00) ng/mL Microbiology - Last 24 Hours (Table) 03/28/25 21:50 Urine Culture - Preliminary Urine,Voided Yeast species 03/28/25 23:19 Blood Culture - Preliminary Blood
[2025-03-31 16:14] LABS: Glucose,Whole Blood 245 mg/dL (70-110)
[2025-03-31] MEDS ORDERED: INSULIN LISPRO (HumaLOG) 100 UNIT/ML 10 mL VL SQ SCH (17:30)
[2025-03-31] MEDS: INSULIN LISPRO (HumaLOG) 100 UNIT/ML 10 mL VL SQ SCH (18:15)
[2025-03-31 20:35] LABS: Glucose,Whole Blood 199 mg/dL (70-110)
--- NOTE | 2025-03-31 21:55 | EEG ---
DATE OF SERVICE: 03/31/2025 ELECTROENCEPHALOGRAM REPORT PREAMBLE: This is a 80-year-old female with altered mental status. EEG FINDINGS: This is a 21-channel digital EEG recorded with video component, utilizing 20 international system with referential and bipolar montages. The background consists of moderately well-developed, poorly regulated, mixed frequencies of 4-6 hertz theta, intermixed with some 2-hertz delta activity in bihemispheric region. Background does not seem to be reactive to eye opening and closing. Photic driving response was not seen. Different stages of sleep were not seen. No focal or generalized epileptiform activity was seen. IMPRESSION: This is an abnormal EEG due to background slowing of moderate degree. This is a generalized cerebral dysfunction as can be seen with toxic metabolic encephalopathy or related to diffuse structural brain abnormality. Clinical correlation is recommended. No epileptiform activity was seen. MMMARIA VICTORIAL / IJOdette: [id number] / MTDD
[2025-04-01 06:19] LABS: Glucose,Whole Blood 118 mg/dL (70-110)
[2025-04-01 07:49] LABS: Basophils # (A) 0.05 10*3/uL (0.00-0.10); Basophils % (A) 0.7 %; Eosinophils # (A) 0.22 10*3/uL (0.04-0.35); Eosinophils % (A) 3.2 %; HGB 7.9 g/dL (12.0-15.0); Lymphocytes # (A) 0.81 10*3/uL (0.90-5.00); Lymphocytes % (A) 11.7 %; MCH 29.6 pg (27.0-32.0); MCHC 30.4 g/dL (32.0-37.0); MCV 97.4 fL (80.0-97.0); Mean Platelet Volume 9.1 fL (9.5-12.2); Monocytes # (A) 0.39 10*3/uL (0.20-1.00); Monocytes % (A) 5.6 %; Neutrophils # (A) 5.37 10*3/uL (1.80-7.70); Neutrophils % (A) 77.8 %; Platelet Count 145 10*3/uL (140-440); RBC 2.67 10*6/uL (4.10-5.20); RDW 17.8 % (11.5-14.5); WBC 6.91 10*3/uL (4.50-10.00)
[2025-04-01 08:13] LABS: African American GFR (CKD) 47 (>60 ml/min/1.73 sqM); Anion Gap 6 mmol/L; Blood Urea Nitrogen 33 mg/dL (7-17); Calcium 8.8 mg/dL (8.4-10.2); Carbon Dioxide 34 mmol/L (22-30); Chloride 96 mmol/L (98-107); Glucose 104 mg/dL (74-99); Non-African American GFR(CKD) 40 (>60 ml/min/1.73 sqM); Sodium 136 mmol/L (137-145)
--- NOTE | 2025-04-01 10:26 | P.PN ---
Subjective Progress Note Date: 03/31/25 Patient was seen for a follow-up. Patient is laying comfortably in the bed. Patient's daughter was present at the bedside. Patient's mentation has improved. No new focal symptoms. Patient's daughter states that she is comprehending better, watching TV, as previously she was just watching, not showing any reaction or response. She laughed at one of the joke on the TV. Objective - Vital Signs Vital signs: Vital Signs Temp 97.9 F 03/31/25 16:22 Pulse 80 03/31/25 16:22 Resp 14 03/31/25 16:22 BP 106/65 03/31/25 16:22 Pulse Ox 100 03/31/25 16:22 FiO2 40 03/31/25 04:17 Intake & Output 03/30/25 03/31/25 03/31/25 18:59 06:59 18:59 Intake Total 354 240 Output Total 2000 500 700 Balance -1646 -500 -460 Weight 118.5 kg Intake: Oral 354 240 Output: Urine 2000 500 700 Other: Voiding Method External Catheter External Catheter External Catheter # Voids 550 1 - Exam Patient is more alert and awake. Her face is slightly more animated. Patient states it is April and the year is 1994. She knows that she is in [facility]. She was able to name the fingers, but not the knuckles. She was able to name earlobe and can repeat. Speech has no dysarthria. Attention, concentration, fund of knowledge is limited. Patient has slow mentation. Delayed latency time to answer questions, although better than yesterday. There is no ataxia for [id number] testing. No pronator drift. Sensations appears equal. - Labs CBC & Chem 7: 04/01/25 07:12 04/01/25 07:12 Labs: Abnormal Lab Results - Last 24 Hours (Table) 03/30/25 03/31/25 03/31/25 Range/Units 20:21 06:05 06:45 RBC (4.10-5.20) 10*6/uL Hgb (12.0-15.0) g/dL Hct (37.2-46.3) % MCHC (32.0-37.0) g/dL Immature Gran # (0.00-0.04) 10*3/uL Lymphocytes # (0.90-5.00) 10*3/uL Sodium 136 L (137-145) mmol/L Chloride 95 L (98-107) mmol/L Carbon Dioxide 36 H (22-30) mmol/L BUN 32 H (7-17) mg/dL Creatinine 1.29 H (0.52-1.04) mg/dL Glucose 154 H (74-99) mg/dL POC Glucose (mg/dL) 318 H 167 H (70-110) mg/dL 03/31/25 03/31/25 03/31/25 Range/Units 06:45 11:27 16:13 RBC 2.69 L (4.10-5.20) 10*6/uL Hgb 8.2 L (12.0-15.0) g/dL Hct 26.1 L (37.2-46.3) % MCHC 31.4 L (32.0-37.0) g/dL Immature Gran # 0.05 H (0.00-0.04) 10*3/uL Lymphocytes # 0.73 L (0.90-5.00) 10*3/uL Sodium (137-145) mmol/L Chloride (98-107) mmol/L Carbon Dioxide (22-30) mmol/L BUN (7-17) mg/dL Creatinine (0.52-1.04) mg/dL Glucose (74-99) mg/dL POC Glucose (mg/dL) 246 H 245 H (70-110) mg/dL Microbiology - Last 24 Hours (Table) 03/28/25 21:50 Urine Culture - Final Urine,Voided Lori tropicalis 03/28/25 23:19 Blood Culture - Preliminary Blood Assessment and Plan Assessment: * 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 Patient had mild aphasia, improving. * Altered mental status, likely due to toxic metabolic encephalopathy. Reasons multifactorial as mentioned below. * Anemia * Thrombocytopenia * Hypercapnia * Mild renal insufficiency * Elevated troponins * Abnormal UA, rule out UTI * Hyponatremia * Hypothyroidism * Abnormal chest x-ray, rule out CHF exacerbation versus pneumonia * Atrial fibrillation, on Eliquis * Diabetes * Hyperlipidemia * Sleep apnea * History of aortic valve replacement 10/2018 * Pacemaker * Folate deficiency Plan: * Repeat CT head performed today revealed acute infarct in the left thalamus. Appears slightly more prominent in size. No acute intra or extra-axial hemorrhage. No mass effect or midline shift. Moderate age-appropriate atrophy and chronic ischemic white matter demyelination. I personally reviewed CT head, agree with the findings. There is evidence of an acute to subacute left thalamic infarct. * Initial CT head reported new lacunar infarct within the left thalamus from prior CT 03/08/2025. No evidence for intracranial hemorrhage. Nonspecific white matter changes, likely secondary to chronic small vessel ischemic disease. * Carotid Doppler revealed no hemodynamically significant stenosis of the ICA on either side. Antegrade flow in both vertebral arteries. * 2D echo performed 01/30/2025 revealed suboptimal study with EF 40 to 45%. Mildly reduced global left ventricular systolic function. Moderate right ventricular dilation. Severe pulmonary hypertension. Moderate right atrial dilation. Severe left atrial dilation. * Continue Eliquis 5 mg twice daily. Also on aspirin 81 mg daily. May stop aspirin, if okay with cardiology. Neurologically patient only needs Eliquis. * Lipid panel with cholesterol 159, LDL 90, HDL 48 and triglycerides 99. Continue Lipitor 40 mg daily. * Hemoglobin A1c 7.4 on 03/22/2025. Recommend optimize control of diabetes to target A1c <7.0. * B12 1033, folate is low 4.20. We will start folate replacement. TSH is 10.10 and free T4 1.04. We will defer to IM to address hypothyroidism. * EEG was abnormal due to background slowing of moderate degree. This is suggestive of generalized cerebral dysfunction as can be seen with toxic m etabolic encephalopathy, or related to diffuse structural brain abnormality. Clinical correlation is recommended. No epileptiform activity was seen. * Patient currently on ampicillin 2 g every 6 hours, ceftriaxone 2 g every 12 hours. ID following. * Treatment of further medical conditions as per IM and other specialties on board. * Discussed with patient's daughter. Neurologically clear.
--- NOTE | 2025-04-01 11:22 | P.PN ---
Subjective HISTORY OF PRESENT ILLNESS: This is a 80-year-old female with a past medical history significant for TAVR in 2018 with subsequent aortic valve replacement, mitral valve replacement, tricuspid valve repair done at [facility] in May 2024, paroxysmal atrial fibrillation, hypertension, hyperlipidemia, diabetes, coronary artery disease, pleural effusion with previous thoracentesis, congestive heart failure, endocarditis, and pacemaker implantation. Patient follows in the office with Dr. Watson. We have been asked to see the patient in consultation for elevated troponins. Patient examined at the bedside. Patient's daughter is at the [facility]. Patient has been at [facility] after recent hospitalization here. Yesterday she was confused and did not know where she was at and was asking where her sister was who had a few years ago. Patient's daughter states that she then became very lethargic and was not acting like herself and the decision was made to bring her to the hospital for further evaluation. The patient remains lethargic this morning. She is currently on BiPAP. DIAGNOSTICS: - EKG reveals ventricular paced rhythm. - Chest xray cardiomegaly with bilateral perihilar opacities and left basilar opacity which may represent pulmonary edema from CHF exacerbation versus multifocal pneumonia -CT of the brain new lacunar infarct within the left thalamus - Laboratory data: WBC 8.08. Hemoglobin 7.4. Platelet count 100. Sodium 134. Potassium 3.7. BUN 26. Creatinine 1.20. Troponin 0.231. 0.238. 0.206. - Current home cardiac medications include Aldactone 25 mg daily, Bumex 2 mg daily, Lipitor 40 mg at night. - Most recent echocardiogram obtained in February 2025 revealed ejection fraction of 55 to 60%, no obvious regional wall motion abnormalities bioprosthetic aortic valve with mean gradient 11 mmHg, tricuspid valve repair with mild tricuspid regurgitation - Cardiac catheterization history: 12/2020 with PCI to the mid diagonal 1 and ostial PDA 03/30/2025 Patient examined this morning at the bedside. Patient's daughter is present. Patients mentation has improved today. She is awake and alert and responding appropriately. No complaints of chest pain or shortness of breath. Vital signs are stable. 03/31/2025 Patient examined this morning at the bedside. Repeat CT of the brain yesterday revealed acute infarct in left thalamus. No evidence of hemorrhage. Patient is currently awake and eating lunch. She denies any chest pain or pressure. She denies any shortness of breath. Vital signs are stable. 04/01/2025 Patient examined this morning at the bedside. Patient currently denies chest pain or pressure. She denies shortness of breath. Vital signs are stable. She remains on antibiotics per infectious disease PHYSICAL EXAM: VITAL SIGNS: Reviewed. GENERAL: Well-developed in no acute distress. HEENT: Head is normocephalic. Pupils are equal, round. Sclerae anicteric. Mucous membranes of the mouth are moist. Neck supple. No JVD or thyromegaly LUNGS: Respirations even and unlabored. Lungs diminished bilaterally. HEART: Regular rate and rhythm. S1 and S2 heard. ABDOMEN: Soft. Nondistended. Nontender. EXTREMITIES: Normal range of motion. No clubbing or cyanosis. Peripheral pulses intact. 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, likely source from sacral decubitus ulcer Acute on chronic heart failure with reduced EF, 40 to 45% Valvular heart disease status post TAVR 2017 with subsequent open aortic valve replacement, mitral valve replacement, and tricuspid valve repair, May 2024 at [facility] Paroxysmal atrial fibrillation Coronary artery disease with previous stenting to mid diagonal 1 and ostial PDA History of anemia with questionable GI bleed requiring RBC transfusion History of pacemaker implantation Hypertension Hyperlipidemia Diabetes Hypothyroidism PLAN: Continue cardiac medications including Eliquis, aspirin, Lipitor, Bumex, Farxiga, metoprolol, and Aldactone Patient is stable for discharge back to [facility] from a cardiac standpoint We will sign off. Please reconsult if needed. Nurse practitioner note has been reviewed by physician. Signing provider agrees with the documented findings, assessment, and plan of care documented by [employer] as a scribe. Objective - Vital Signs Vital signs: Vital Signs Temp 96.8 F L 04/01/25 08:37 Pulse 63 04/01/25 08:37 Resp 14 04/01/25 08:37 BP 103/52 04/01/25 08:37 Pulse Ox 97 04/01/25 08:37 FiO2 40 03/31/25 04:17 Intake & Output 03/31/25 04/01/25 04/01/25 18:59 06:59 18:59 Intake Total 240 118 Output Total 700 900 Balance -460 -900 118 Weight 115 kg Intake: Oral 240 118 Output: Urine 700 900 Other: Voiding Method External Catheter External Catheter - Labs CBC & Chem 7: 04/01/25 07:12 04/01/25 07:12 Labs: Abnormal Lab Results - Last 24 Hours (Table) 03/31/25 03/31/25 03/31/25 Range/Units 11:27 16:13 20:34 RBC (4.10-5.20) 10*6/uL Hgb (12.0-15.0) g/dL Hct (37.2-46.3) % MCV (80.0-97.0) fL MCHC (32.0-37.0) g/dL MPV (9.5-12.2) fL Immature Gran # (0.00-0.04) 10*3/uL Lymphocytes # (0.90-5.00) 10*3/uL Sodium (137-145) mmol/L Chloride (98-107) mmol/L Carbon Dioxide (22-30) mmol/L BUN (7-17) mg/dL Creatinine (0.52-1.04) mg/dL Glucose (74-99) mg/dL POC Glucose (mg/dL) 246 H 245 H 199 H (70-110) mg/dL 04/01/25 04/01/25 04/01/25 Range/Units 06:17 07:12 07:12 RBC 2.67 L (4.10-5.20) 10*6/uL Hgb 7.9 L (12.0-15.0) g/dL Hct 26.0 L (37.2-46.3) % MCV 97.4 H (80.0-97.0) fL MCHC 30.4 L (32.0-37.0) g/dL MPV 9.1 L (9.5-12.2) fL Immature Gran # 0.07 H (0.00-0.04) 10*3/uL Lymphocytes # 0.81 L (0.90-5.00) 10*3/uL Sodium 136 L (137-145) mmol/L Chloride 96 L (98-107) mmol/L Carbon Dioxide 34 H (22-30) mmol/L BUN 33 H (7-17) mg/dL Creatinine 1.27 H (0.52-1.04) mg/dL Glucose 104 H (74-99) mg/dL POC Glucose (mg/dL) 118 H (70-110) mg/dL Microbiology - Last 24 Hours (Table) 03/28/25 21:50 Urine Culture - Final Urine,Voided Lori tropicalis 03/28/25 23:19 Blood Culture - Preliminary Blood
[2025-04-01 11:27] LABS: Glucose,Whole Blood 245 mg/dL (70-110)
--- NOTE | 2025-04-01 16:04 | P.PN ---
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 On today's evaluation that is 03/31/2025, Patient is afebrile patient is currently on 5 L nasal oxygen and denies having any shortness of breath, the patient denies any chest pain or cough, the patient denies any nausea vomiting did not have any abdominal pain and no diarrhea. Patient did have a white count of 6.65, creatinine is 1.29 Objective - Vital Signs Vital signs: Vital Signs Temp 97.8 F 03/31/25 09:02 Pulse 80 03/31/25 12:13 Resp 16 03/31/25 12:13 BP 109/62 03/31/25 12:13 Pulse Ox 93 L 03/31/25 12:13 FiO2 40 03/31/25 04:17 Intake & Output 03/30/25 03/31/25 03/31/25 18:59 06:59 18:59 Intake Total 354 120 Output Total 2000 500 Balance -1646 -500 120 Weight 118.5 kg Intake: Oral 354 120 Output: Urine 2000 500 Other: Voiding Method External Catheter External Catheter External Catheter # Voids 550 1 - Exam GENERAL DESCRIPTION: An elderly female lying in bed in no distress RESPIRATORY SYSTEM: Unlabored breathing , decreased breath sounds at bases HEART: S1 S2 regular rate and rhythm , ABDOMEN: Soft , no tenderness - Labs CBC & Chem 7: 04/01/25 07:12 04/01/25 07:12 Labs: Abnormal Lab Results - Last 24 Hours (Table) 03/30/25 03/30/25 03/30/25 Range/Units 07:07 07:07 16:09 RBC (4.10-5.20) 10*6/uL Hgb (12.0-15.0) g/dL Hct (37.2-46.3) % MCHC (32.0-37.0) g/dL Immature Gran # (0.00-0.04) 10*3/uL Lymphocytes # (0.90-5.00) 10*3/uL Sodium (137-145) mmol/L Chloride (98-107) mmol/L Carbon Dioxide (22-30) mmol/L BUN (7-17) mg/dL Creatinine (0.52-1.04) mg/dL Glucose (74-99) mg/dL POC Glucose (mg/dL) 333 H (70-110) mg/dL Vitamin B12 1033.0 H (200.0-944.0) pg/mL Folate 4.20 L (4.40-31.00) ng/mL 03/30/25 03/31/25 03/31/25 Range/Units 20:21 06:05 06:45 RBC (4.10-5.20) 10*6/uL Hgb (12.0-15.0) g/dL Hct (37.2-46.3) % MCHC (32.0-37.0) g/dL Immature Gran # (0.00-0.04) 10*3/uL Lymphocytes # (0.90-5.00) 10*3/uL Sodium 136 L (137-145) mmol/L Chloride 95 L (98-107) mmol/L Carbon Dioxide 36 H (22-30) mmol/L BUN 32 H (7-17) mg/dL Creatinine 1.29 H (0.52-1.04) mg/dL Glucose 154 H (74-99) mg/dL POC Glucose (mg/dL) 318 H 167 H (70-110) mg/dL Vitamin B12 (200.0-944.0) pg/mL Folate (4.40-31.00) ng/mL 03/31/25 03/31/25 Range/Units 06:45 11:27 RBC 2.69 L (4.10-5.20) 10*6/uL Hgb 8.2 L (12.0-15.0) g/dL Hct 26.1 L (37.2-46.3) % MCHC 31.4 L (32.0-37.0) g/dL Immature Gran # 0.05 H (0.00-0.04) 10*3/uL Lymphocytes # 0.73 L (0.90-5.00) 10*3/uL Sodium (137-145) mmol/L Chloride (98-107) mmol/L Carbon Dioxide (22-30) mmol/L BUN (7-17) mg/dL Creatinine (0.52-1.04) mg/dL Glucose (74-99) mg/dL POC Glucose (mg/dL) 246 H (70-110) mg/dL Vitamin B12 (200.0-944.0) pg/mL Folate (4.40-31.00) ng/mL Microbiology - Last 24 Hours (Table) 03/28/25 21:50 Urine Culture - Preliminary Urine,Voided Yeast species 03/28/25 23:19 Blood Culture - Preliminary Blood Assessment and Plan (1) Endocarditis of mitral valve Current Visit: Yes Status: Acute Code(s): I05.9 - RHEUMATIC MITRAL VALVE DISEASE, UNSPECIFIED SNOMED Code(s): 15106530 (2) Bacteremia Current Visit: No Status: Acute Code(s): R78.81 - BACTEREMIA SNOMED Code(s): 6836413 Plan: 1patient with recent admission to the hospital and this patient at that time did have Enterococcus faecalis bacteremia with a workup that shows evidence of mitral valve endocarditis for the patient was receiving IV ampicillin and Rocephin has been brought back to the hospital concerning for mental status change and lethargy, clinically not behaving as pneumonia chest x-ray findings are mostly suggestive of CHF in the setting of endocarditis with benefit from repeat echocardiogram to evaluate integrity of the mitral valve which was ordered 2-patient did have a significantly positive UA but no urinary symptoms likely asymptomatic bacteriuria. 3patient with multiple antibiotic ALLERGIES that would limit the number of antibiotic safe to use 4patient is afebrile white count normal to continue ampicillin 2 g Q6 and switch Rocephin to 2 g every 12 and monitor clinical course closely Dictation was produced using [employer] dictation software. please excuse any grammatical, word or spelling errors. Time with Patient: Less than 30
--- NOTE | 2025-04-01 16:05 | P.PN ---
Subjective Progress Note Date: 04/01/25 Principal diagnosis: Reason for follow-up is mitral valve endocarditis Patient is a 80-year-old female with a past medical history significant for diabetes mellitus hypertension hyperlipidemia atrial fibrillation recent admission to this facility patient did have a Enterococcus faecalis bacteremia MELISSA did shows evidence of mitral valve endocarditis and the patient was on outpatient IV biotics and brought back to the hospital with confusion mental status changes did have abnormal x-ray concerning for possible CHF. On today's evaluation that is 04/01/2025, patient has been afebrile, patient is breathing comfortably and is currently on 5 L nasal oxygen patient denies having any chest pain and cough, patient denies nausea vomiting or diarrhea and no abdominal pain. The patient did have a white count of 6.91, creatinine is 1.27 blood culture negative urine is growing Lori Objective - Vital Signs Vital signs: Vital Signs Temp 97.9 F 04/01/25 11:38 Pulse 66 04/01/25 11:38 Resp 14 04/01/25 11:38 BP 110/66 04/01/25 11:38 Pulse Ox 100 04/01/25 11:43 FiO2 40 03/31/25 04:17 Intake & Output 03/31/25 04/01/25 04/01/25 18:59 06:59 18:59 Intake Total 240 236 Output Total 700 900 Balance -460 -900 236 Weight 115 kg Intake: Oral 240 236 Output: Urine 700 900 Other: Voiding Method External Catheter External Catheter - Exam GENERAL DESCRIPTION: An elderly female lying in bed in no distress RESPIRATORY SYSTEM: Unlabored breathing , decreased breath sounds at bases HEART: S1 S2 regular rate and rhythm , ABDOMEN: Soft , no tenderness - Labs CBC & Chem 7: 04/01/25 07:12 04/01/25 07:12 Labs: Abnormal Lab Results - Last 24 Hours (Table) 03/31/25 03/31/25 04/01/25 Range/Units 16:13 20:34 06:17 RBC (4.10-5.20) 10*6/uL Hgb (12.0-15.0) g/dL Hct (37.2-46.3) % MCV (80.0-97.0) fL MCHC (32.0-37.0) g/dL MPV (9.5-12.2) fL Immature Gran # (0.00-0.04) 10*3/uL Lymphocytes # (0.90-5.00) 10*3/uL Sodium (137-145) mmol/L Chloride (98-107) mmol/L Carbon Dioxide (22-30) mmol/L BUN (7-17) mg/dL Creatinine (0.52-1.04) mg/dL Glucose (74-99) mg/dL POC Glucose (mg/dL) 245 H 199 H 118 H (70-110) mg/dL 04/01/25 04/01/25 04/01/25 Range/Units 07:12 07:12 11:26 RBC 2.67 L (4.10-5.20) 10*6/uL Hgb 7.9 L (12.0-15.0) g/dL Hct 26.0 L (37.2-46.3) % MCV 97.4 H (80.0-97.0) fL MCHC 30.4 L (32.0-37.0) g/dL MPV 9.1 L (9.5-12.2) fL Immature Gran # 0.07 H (0.00-0.04) 10*3/uL Lymphocytes # 0.81 L (0.90-5.00) 10*3/uL Sodium 136 L (137-145) mmol/L Chloride 96 L (98-107) mmol/L Carbon Dioxide 34 H (22-30) mmol/L BUN 33 H (7-17) mg/dL Creatinine 1.27 H (0.52-1.04) mg/dL Glucose 104 H (74-99) mg/dL POC Glucose (mg/dL) 245 H (70-110) mg/dL Microbiology - Last 24 Hours (Table) 03/28/25 23:19 Blood Culture - Preliminary Blood 03/28/25 21:50 Urine Culture - Final Urine,Voided Lori tropicalis Assessment and Plan (1) Endocarditis of mitral valve Current Visit: Yes Status: Acute Code(s): I05.9 - RHEUMATIC MITRAL VALVE DISEASE, UNSPECIFIED SNOMED Code(s): 70788041 (2) Bacteremia Current Visit: No Status: Acute Code(s): R78.81 - BACTEREMIA SNOMED Code(s): 8357078 Plan: 1patient with recent admission to the hospital and this patient at that time did have Enterococcus faecalis bacteremia with a workup that shows evidence of mitral valve endocarditis for the patient was receiving IV ampicillin and Rocephin has been brought back to the hospital concerning for mental status change and lethargy, clinically not behaving as pneumonia chest x-ray findings are mostly suggestive of CHF in the setting of endocarditis with benefit from repeat echocardiogram to evaluate integrity of the mitral valve which was ordered 2-patient did have a significantly positive UA but no urinary symptoms likely asymptomatic bacteriuria. 3patient with multiple antibiotic ALLERGIES that would limit the number of antibiotic safe to use 4patient is afebrile white count normal Patient to continue ampicillin 2 g Q6 and switch Rocephin to 2 g every 12 to finish her 6-week course of therapy Dictation was produced using [employer] dictation software. please excuse any grammatical, word or spelling errors. Time with Patient: Less than 30
[2025-04-01 16:22] LABS: Glucose,Whole Blood 201 mg/dL (70-110)
--- NOTE | 2025-04-01 17:12 | P.PN ---
Subjective Progress Note Date: 04/01/25 Hospital course: Patient is a 80-year-old female with a history of mitral valve replacement has pacemaker, congestive heart failure (EF of 40 to 45%), obstructive sleep apnea on BiPAP at home, on home oxygen at 5 L during the day was brought to the emergency department yesterday after she was found to be confused and altered in a [facility] where [facility] undergoing [facility]. Patient was recently hospitalized for sepsis, Enterococcus bacteremia, infective endocarditis and was discharged to [facility] on PICC line on IV Rocephin and ampicillin. Currently, patient is feeling better and is AA0 x 1. Her daughter was in the room and as per her shoes less confused and more alert and oriented compared to yesterday but still she is not at her baseline mentation. Patient otherwise denies any shortness of breath, cough, chest pain, nausea, vomiting, diarrhea or constipation. Reports no focal neurological deficits, no dysarthria, asymmetry of the face, no numbness or weakness in upper or lower extremities. Initial lab work shows WBC of 6.56, hemoglobin 7.4, sodium 133, potassium 4.7, BUN 26, creatinine 1.17, glucose 158, alkaline phosphatase 241, troponin I 0.231, NT proBNP 6420, TSH 10.1, free T41.03. Repeat blood work shows WBC 8.0, hemoglobin 7.4, sodium 134, potassium 3.7, BUN 26, creatinine 1.20, troponin I 0.238 and 0.206. Urinalysis shows proteinuria, glycosuria, leukocyte Estrace positive. Chest x-ray shows cardiomegaly with bilateral perihilar opacities with left pleural effusion and vascular congestion noted. EKG shows no ST segment elevation, nonspecific ST-T wave changes, ventricular rate 68 bpm, OR interval 139 ms, QRS duration 154 ms, QTc 478. Brain CT shows new lacunar infarct within the left thalamus and no evidence of intracranial hemorrhage. 03/30/2025: Patient seen and examined at the bedside. Daughter was present in the room. No acute events overnight. No new complaints. Patient is currently on anticoagulation with Eliquis and had a discussion with the neurologist Dr. Mcgill to continue with Eliquis and will repeat CAT scan of the brain today to rule out any evolving stroke. No concerns for active bleeding. Lab work from today shows stable hemoglobin of 7.7. Platelet count 108. Sodium 134, potassium 4.0, BUN 32, creatinine 1.21, glucose 225, calcium 8.2. Risk versus benefit of being on anticoagulation has also been discussed with patient's daughter who was present at the bedside today. 03/31/2025: Patient seen and examined at the bedside. Daughter was present in the room. No acute events overnight. No new complaints. Patient is AAO x 1. As per daughter, patient is still not at her baseline mentation. Patient on home BiPAP overnight for sleeping with settings of FiO2 40, flow rate of 5. Patient continues to be on Eliquis and aspirin. Repeat CT of the brain showed evolving left lacunar infarct. No new focal neurological deficit. No concerns for active bleeding. Sodium 136, potassium 3.9, chloride 95, bicarb 36, BUN 32, cr eatinine 1.29, glucose 154, calcium 8.6. 04/01/2025: Patient seen and examined at the bedside. No acute events overnight. No new complaint. Patient continues to be AAO x 1. Lab work from today shows WBC 6.91, hemoglobin 7.9, sodium 136, BUN 33, creatinine 1.27, glucose 2 1, calcium 8.8. Patient likely to be discharged tomorrow. Physical examination: Vital signs reviewed General: non toxic, no distress, appears at stated age, morbidly obese Derm: no unusual rashes/lesions, warm Head: atraumatic, normocephalic, symmetric Eyes: EOMI, no lid lag, anicteric sclera, pupils equal round reactive to light ENT: Nose and ears atraumatic Neck: No cervical lymphadenopathy, trachea midline, supple Mouth: no lip lesion, mucus membranes moist Cardiovascular: S1S2 reg, no murmur, positive dorsalis pedis pulse bilateral, 2+ pitting edema Lungs: CTA bilateral, no rhonchi, no rales, no accessory muscle use Abdominal: soft, nontender to palpation, no guarding Ext: muscle strength 5 out of 5 in all 4 extremities grossly, no gross muscle atrophy, no contractures, Neuro: CN II-XI grossly intact, no gross focal neuro deficits Psych: Alert, oriented, appropriate affect Assessment/Plan: Patient is a 80-year-old female with a history of mitral valve replacement has pacemaker, congestive heart failure (EF of 40 to 45%), obstructive sleep apnea on BiPAP at home, on home oxygen at 5 L during the day was brought to the emergency department for altered mental status. Case was discussed with the [facility] Room provider and decision was made to admit the patient for altered mental status. Active: #Acute toxic metabolic encephalopathy, infectious versus neurologic #Complicated UTI #Left lacunar infarct on CT brain #Recent history of Enterococcus bacteremia and infective endocarditis on IV Rocephin and ampicillin through PICC line Infectious disease on board Continue with IV Rocephin and ampicillin Chest x-ray does show left pleural opacity but no pneumonia less likely Blood culture, sputum culture, urine culture, urine Legionella antigen has been ordered by ED, report pending Urinalysis is positive for UTI Neurology on board Continue aspirin 81 mg once daily and Eliquis 5 mg p.o. twice daily Carotid duplex ultrasound normal Repeat CT of the brain showed evolving left lacunar stroke, continue on Eliquis #Elevated troponins likely secondary to type II NSTEMI #Valvular heart disease status post TAVR (2017), subsequently aortic valve replacement, mitral valve replacement, tricuspid valve repair in May 2024 #Acute on chronic HFpEF, echocardiogram on 03/10/2025 with ejection fraction of 55 to 60% Troponin I trending flat Continue with Bumex 2 mg p.o. daily Cardiology on board Continue with Aldactone 25 mg p.o. daily and Toprol-XL 25 mg p.o. at bedtime Continue Farxiga #Obesity hypoventilation syndrome on 5 L of oxygen at home #Obstructive sleep apnea on BiPAP at home DuoNebs as needed Continue with oxygen, patient currently at baseline #Type 2 diabetes mellitus Continue with the Lantus 20 units at bedtime Start patient on sliding scale insulin Continue monitor for hypoglycemia #Subclinical hypothyroidism Continue with Synthroid Chronic: Hypothyroidism: Resume Synthroid Anxiety/depression: Resume Prozac GERD: Resume omeprazole DVT prophylaxis: Eliquis 5 mg p.o. twice daily GI prophylaxis: Omeprazole F: None E: Replete as needed N: Heart healthy diet A: Ambulatory at baseline CODE STATUS: Full code Discussed with: Patient Anticipated discharge place: Pending clinical course Dictation was produced using [employer] dictation software. Please excuse any grammatical, word or spelling errors. Objective - Vital Signs Vital signs: Vital Signs Temp 98 F 04/01/25 16:40 Pulse 71 04/01/25 16:40 Resp 14 04/01/25 16:40 BP 134/67 04/01/25 16:40 Pulse Ox 100 04/01/25 16:40 FiO2 40 03/31/25 04:17 Intake & Output 03/31/25 04/01/25 04/01/25 18:59 06:59 18:59 Intake Total 240 236 Output Total 700 900 450 Balance -460 900 -214 Weight 115 kg Intake: Oral 240 236 Output: Urine 700 900 450 Other: Voiding Method External Catheter External Catheter External Catheter - Labs CBC & Chem 7: 04/04/25 08:33 04/05/25 07:03 Labs: Abnormal Lab Results - Last 24 Hours (Table) 03/31/25 04/01/25 04/01/25 Range/Units 20:34 06:17 07:12 RBC 2.67 L (4.10-5.20) 10*6/uL Hgb 7.9 L (12.0-15.0) g/dL Hct 26.0 L (37.2-46.3) % MCV 97.4 H (80.0-97.0) fL MCHC 30.4 L (32.0-37.0) g/dL MPV 9.1 L (9.5-12.2) fL Immature Gran # 0.07 H (0.00-0.04) 10*3/uL Lymphocytes # 0.81 L (0.90-5.00) 10*3/uL Sodium (137-145) mmol/L Chloride (98-107) mmol/L Carbon Dioxide (22-30) mmol/L BUN (7-17) mg/dL Creatinine (0.52-1.04) mg/dL Glucose (74-99) mg/dL POC Glucose (mg/dL) 199 H 118 H (70-110) mg/dL 04/01/25 04/01/25 04/01/25 Range/Units 07:12 11:26 16:21 RBC (4.10-5.20) 10*6/uL Hgb (12.0-15.0) g/dL Hct (37.2-46.3) % MCV (80.0-97.0) fL MCHC (32.0-37.0) g/dL MPV (9.5-12.2) fL Immature Gran # (0.00-0.04) 10*3/uL Lymphocytes # (0.90-5.00) 10*3/uL Sodium 136 L (137-145) mmol/L Chloride 96 L (98-107) mmol/L Carbon Dioxide 34 H (22-30) mmol/L BUN 33 H (7-17) mg/dL Creatinine 1.27 H (0.52-1.04) mg/dL Glucose 104 H (74-99) mg/dL POC Glucose (mg/dL) 245 H 201 H (70-110) mg/dL Microbiology - Last 24 Hours (Table) 03/28/25 23:19 Blood Culture - Preliminary Blood 03/28/25 21:50 Urine Culture - Final Urine,Voided Lori tropicalis Assessment and Plan Assessment: 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
[2025-04-01 20:22] LABS: Glucose,Whole Blood 197 mg/dL (70-110)
[2025-04-02 06:12] LABS: Glucose,Whole Blood 163 mg/dL (70-110)
[2025-04-02 07:45] LABS: Basophils # (A) 0.04 10*3/uL (0.00-0.10); Basophils % (A) 0.5 %; Eosinophils # (A) 0.15 10*3/uL (0.04-0.35); Eosinophils % (A) 2.1 %; HGB 7.6 g/dL (12.0-15.0); Lymphocytes # (A) 0.76 10*3/uL (0.90-5.00); Lymphocytes % (A) 10.4 %; MCH 29.6 pg (27.0-32.0); MCHC 30.4 g/dL (32.0-37.0); MCV 97.3 fL (80.0-97.0); Mean Platelet Volume 9.1 fL (9.5-12.2); Monocytes # (A) 0.44 10*3/uL (0.20-1.00); Neutrophils # (A) 5.85 10*3/uL (1.80-7.70); Neutrophils % (A) 80.3 %; Platelet Count 144 10*3/uL (140-440); RBC 2.57 10*6/uL (4.10-5.20); RDW 17.9 % (11.5-14.5); WBC 7.29 10*3/uL (4.50-10.00)
[2025-04-02 07:59] LABS: African American GFR (CKD) 47 (>60 ml/min/1.73 sqM); Anion Gap 8 mmol/L; Blood Urea Nitrogen 38 mg/dL (7-17); Calcium 8.7 mg/dL (8.4-10.2); Carbon Dioxide 32 mmol/L (22-30); Chloride 94 mmol/L (98-107); Glucose 140 mg/dL (74-99); Non-African American GFR(CKD) 41 (>60 ml/min/1.73 sqM); Potassium 3.9 mmol/L (3.5-5.1); Sodium 134 mmol/L (137-145)
[2025-04-02] MEDS: FUROSEMIDE 10 MG/ML 4 ML VIAL IV STA (11:04)
[2025-04-02 11:22] LABS: Glucose,Whole Blood 240 mg/dL (70-110)
--- NOTE | 2025-04-02 11:38 | P.PN ---
Subjective Progress Note Date: 04/01/25 Patient was seen for a follow-up. Patient is laying comfortably in the bed. Patient's daughter was present at the bedside. Patient's mentation has improved. No new focal symptoms. Per daughter, orientation has improved. She has been sitting up in recliner most of the day. Just recently has been placed back in the bed. She has now got air mattress. Her speech is clear. Patient has been disoriented because she has no set schedule for the last 1 month. Per daughter report, she stood up with physical therapy and transferred to the recliner. Also received the bath. Now she is just resting. Objective - Vital Signs Vital signs: Vital Signs Temp 98 F 04/01/25 16:40 Pulse 71 04/01/25 16:40 Resp 14 04/01/25 16:40 BP 134/67 04/01/25 16:40 Pulse Ox 100 04/01/25 16:40 FiO2 40 03/31/25 04:17 Intake & Output 03/31/25 04/01/25 04/01/25 18:59 06:59 18:59 Intake Total 240 354 Output Total 700 900 450 Balance -460 -900 -96 Weight 115 kg Intake: Oral 240 354 Output: Urine 700 900 450 Other: Voiding Method External Catheter External Catheter External Catheter - Exam Patient is more alert and awake. Her face is slightly more animated. Detailed testing deferred today. Please refer to patient's daughter's report as above. Speech has no dysarthria. Attention, concentration, fund of knowledge is limited. Patient has slow mentation. Delayed latency time to answer questions. There is no ataxia for [id number] testing. No pronator drift. Sensations appears equal. - Labs CBC & Chem 7: 04/02/25 07:29 04/02/25 07:29 Labs: Abnormal Lab Results - Last 24 Hours (Table) 03/31/25 04/01/25 04/01/25 Range/Units 20:34 06:17 07:12 RBC 2.67 L (4.10-5.20) 10*6/uL Hgb 7.9 L (12.0-15.0) g/dL Hct 26.0 L (37.2-46.3) % MCV 97.4 H (80.0-97.0) fL MCHC 30.4 L (32.0-37.0) g/dL MPV 9.1 L (9.5-12.2) fL Immature Gran # 0.07 H (0.00-0.04) 10*3/uL Lymphocytes # 0.81 L (0.90-5.00) 10*3/uL Sodium (137-145) mmol/L Chloride (98-107) mmol/L Carbon Dioxide (22-30) mmol/L BUN (7-17) mg/dL Creatinine (0.52-1.04) mg/dL Glucose (74-99) mg/dL POC Glucose (mg/dL) 199 H 118 H (70-110) mg/dL 04/01/25 04/01/25 04/01/25 Range/Units 07:12 11:26 16:21 RBC (4.10-5.20) 10*6/uL Hgb (12.0-15.0) g/dL Hct (37.2-46.3) % MCV (80.0-97.0) fL MCHC (32.0-37.0) g/dL MPV (9.5-12.2) fL Immature Gran # (0.00-0.04) 10*3/uL Lymphocytes # (0.90-5.00) 10*3/uL Sodium 136 L (137-145) mmol/L Chloride 96 L (98-107) mmol/L Carbon Dioxide 34 H (22-30) mmol/L BUN 33 H (7-17) mg/dL Creatinine 1.27 H (0.52-1.04) mg/dL Glucose 104 H (74-99) mg/dL POC Glucose (mg/dL) 245 H 201 H (70-110) mg/dL Microbiology - Last 24 Hours (Table) 03/28/25 23:19 Blood Culture - Preliminary Blood Assessment and Plan Assessment: * 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 Patient had mild aphasia, improving. * Altered mental status, likely due to toxic metabolic encephalopathy. Reasons multifactorial as mentioned below. * Anemia * Thrombocytopenia, resolved * Hypercapnia * Mild renal insufficiency * Elevated troponins * Abnormal UA, rule out UTI * Recent history of endocarditis of mitral valve, on IV antibiotics. * Hyponatremia * Hypothyroidism * Acute on chronic heart failure with EF 40 to 45%. 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 * Pacemaker * Folate deficiency Plan: * Repeat CT head 03/30/2025 revealed acute infarct in the left thalamus. Appears slightly more prominent in size. No acute intra or extra-axial hemorrhage. No mass effect or midline shift. Moderate age-appropriate atrophy and chronic ischemic white matter demyelination. I personally reviewed CT head, agree with the findings. There is evidence of an acute to subacute left thalamic infarct. * Initial CT head reported new lacunar infarct within the left thalamus from prior CT 03/08/2025. No evidence for intracranial hemorrhage. Nonspecific white matter changes, likely secondary to chronic small vessel ischemic disease. * Carotid Doppler revealed no hemodynamically significant stenosis of the ICA on either side. Antegrade flow in both vertebral arteries. * 2D echo performed 01/30/2025 revealed suboptimal study with EF 40 to 45%. Mildly reduced global left ventricular systolic function. Moderate right ventricular dilation. Severe pulmonary hypertension. Moderate right atrial dilation. Severe left atrial dilation. * Continue Eliquis 5 mg twice daily. Also on aspirin 81 mg daily. * Lipid panel with cholesterol 159, LDL 90, HDL 48 and triglycerides 99. Continue Lipitor 40 mg daily. * Hemoglobin A1c 7.4 on 03/22/2025. Recommend optimize control of diabetes to tar get A1c <7.0. * B12 1033, folate is low 4.20. We will start folate replacement. TSH is 10.10 and free T4 1.04. We will defer to IM to address hypothyroidism. * EEG was abnormal due to background slowing of moderate degree. This is suggestive of generalized cerebral dysfunction as can be seen with toxic metabolic encephalopathy, or related to diffuse structural brain abnormality. Clinical correlation is recommended. No epileptiform activity was seen. * Patient currently on ampicillin 2 g every 6 hours, ceftriaxone 2 g every 12 hours. ID following. * Treatment of further medical conditions as per IM and other specialties on board. * Discussed with patient's daughter.
[2025-04-02] MEDS: LACTULOSE 20 GM/30 ML CUP PO STA (11:43)
--- NOTE | 2025-04-02 13:24 | P.DS ---
Providers Date of admission: 03/28/25 22:19 Attending physician: Maye Hager Consults: 03/28/25 22:15 Consult Physician Routine Consulting Provider: Mahin Armendariz Consult Reason/Comments: sepsis Do you want consulting provider notified?: Yes 03/29/25 09:29 Consult Physician Routine Consulting Provider: Caleb Evans Consult Reason/Comments: abnormal CT Do you want consulting provider notified?: Yes Primary care physician: Ibrahima Hua MD Hospital Course: Discharge Diagnosis: #Complicated UTI #Left lacunar infarct on CT brain, #Mild aphasia, improving #Recent history of Enterococcus bacteremia and infective endocarditis on IV Rocephin and ampicillin through PICC line #Elevated troponin, type II NSTEMI, ACS ruled out #Valvular heart disease status post TAVR (2017), subsequently aortic valve replacement, mitral valve replacement, tricuspid valve repair in May 2024 #Acute on chronic HFpEF, echocardiogram on 03/10/2025 with ejection fraction of 55 to 60% #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 Patient was recently hospitalized for sepsis, Enterococcus bacteremia, infective endocarditis and was discharged to [facility] on PICC line on IV Rocephin and ampicillin. Currently, patient is feeling better and is AA0 x 1. Her daughter was in the room and as per her shoes less confused and more alert and oriented compared to yesterday but still she is not at her baseline mentation. Patient otherwise denies any shortness of breath, cough, chest pain, nausea, vomiting, diarrhea or constipation. Reports no focal neurological deficits, no dysarthria, asymmetry of the face, no numbness or weakness in upper or lower extremities. Initial lab work shows WBC of 6.56, hemoglobin 7.4, sodium 133, potassium 4.7, BUN 26, creatinine 1.17, glucose 158, alkaline phosphatase 241, troponin I 0.231, NT proBNP 6420, TSH 10.1, free T41.03. Repeat blood work shows WBC 8.0, hemoglobin 7.4, sodium 134, potassium 3.7, BUN 26, creatinine 1.20, troponin I 0.238 and 0.206. Urinalysis shows proteinuria, glycosuria, leukocyte Estrace positive. Chest x-ray shows cardiomegaly with bilateral perihilar opacities with left pleural effusion and vascular congestion noted. EKG shows no ST segment elevation, nonspecific ST-T wave changes, ventricular rate 68 bpm, SC interval 139 ms, QRS duration 154 ms, QTc 478. Brain CT shows new lacunar infarct within the left thalamus and no evidence of intracranial hemorrhage. 03/30/2025: Patient seen and examined at the bedside. Daughter was present in the room. No acute events overnight. No new complaints. Patient is currently on anticoagulation with Eliquis and had a discussion with the neurologist Dr. Mcgill to continue with Eliquis and will repeat CAT scan of the brain today to rule out any evolving stroke. No concerns for active bleeding. Lab work from today shows stable hemoglobin of 7.7. Platelet count 108. Sodium 134, potassium 4.0, BUN 32, creatinine 1.21, glucose 225, calcium 8.2. Risk versus benefit of being on anticoagulation has also been discussed with patient's daughter who was present at the bedside today. 03/31/2025: Patient seen and examined at the bedside. Daughter was present in the room. No acute events overnight. No new complaints. Patient is AAO x 1. As per daughter, patient is still not at her baseline mentation. Patient on home BiPAP overnight for sleeping with settings of FiO2 40, flow rate of 5. Patient continues to be on Eliquis and aspirin. Repeat CT of the brain showed evolving left lacunar infarct. No new focal neurological deficit. No concerns for active bleeding. Sodium 136, potassium 3.9, chloride 95, bicarb 36, BUN 32, creatinine 1.29, glucose 154, calcium 8.6. 04/01/2025: Patient seen and examined at the bedside. No acute events overnight. No new complaint. Patient continues to be AAO x 1. Lab work from today shows WBC 6.91, hemoglobin 7.9, sodium 136, BUN 33, creatinine 1.27, glucose 2 1, calcium 8.8. 04/02/2025: Patient is at her baseline mentation. Will continue on aspirin and Eliquis. Risk versus benefit of anticoagulation antiplatelet were discussed with the patient as well as daughter. Patient will return to subacute rehab and will continue to finish her course of IV antibiotics. Patient will follow-up with her PCP and infectious disease posthospital discharge. Cardiology, infectious disease, neurology cleared patient for discharge. Discharge disposition: [facility]/ECF Vital signs reviewed General: non toxic, no distress, appears at stated age, morbidly obese Derm: no unusual rashes/lesions, warm Head: atraumatic, normocephalic, symmetric Eyes: EOMI, no lid lag, anicteric sclera, pupils equal round reactive to light ENT: Nose and ears atraumatic Neck: No cervical lymphadenopathy, trachea midline, supple Mouth: no lip lesion, mucus membranes moist Cardiovascular: S1S2 reg, no murmur, positive dorsalis pedis pulse bilateral, 2+ pitting edema Lungs: CTA bilateral, no rhonchi, no rales, no accessory muscle use Abdominal: soft, nontender to palpation, no guarding Ext: muscle strength 5 out of 5 in all 4 extremities grossly, no gross muscle atrophy, no contractures, Neuro: CN II-XI grossly intact, no gross focal neuro deficits Psych: Alert, oriented, appropriate affect Dictation was produced using [employer] dictation software. Please excuse any grammatical, word or spelling errors. Attestation I have seen and examined this patient with my resident , discussed the same with the resident/EYAD, and agree with the dictator's assessment and plan as written Dr. Jensen lopez Patient Condition at Discharge: Serious Plan - Discharge Summary Discharge Rx Participant: No New Discharge Prescriptions: New Aspirin 81 mg PO DAILY tab Continue Levothyroxine Sodium [Levoxyl] 175 mcg PO DAILY Calcium Carbonate [Calcium] 600 mg PO BID Dapagliflozin Propanediol [Farxiga] 10 mg PO DAILY #30 tab cefTRIAXone [Rocephin] 2 gm IVPB Q12H #70 each Ampicillin Sodium 2 gm IVPB Q6HR #140 each INSULIN LISPRO (HumaLOG) [HumaLOG] 20 unit SQ AC-TID each Apixaban [Eliquis] 5 mg PO BID Omeprazole [PriLOSEC] 20 mg PO DAILY FLUoxetine HCL [PROzac] 10 mg PO DAILY Insulin Glargine,Hum.rec.anlog [Lantus Solostar Pen] 20 units SQ HS Atorvastatin [Lipitor] 40 mg PO HS #30 tab Metoprolol Succinate (ER) [Toprol XL] 25 mg PO HS #30 tab Acetaminophen Tab [Tylenol] 650 mg PO Q6HR PRN tab PRN Reason: Fever And/ Or Pain Zinc Sulfate [Orazinc] 220 mg PO DAILY 15 Days #15 cap Ascorbic Acid [Vitamin C] 500 mg PO DAILY #30 tab Cholecalciferol [Vitamin D3 (125 Mcg = 5000 Iu)] 125 mcg PO DAILY #30 tab Loratadine [Claritin] 10 mg PO DAILY tab Saline Flush 0.9% 10 ml IV Q6H Bumetanide [BUMEX] 2 mg PO DAILY Spironolactone [Aldactone] 25 mg PO DAILY Discharge Medication List Levothyroxine Sodium [Levoxyl] 175 mcg PO DAILY 10/25/20 [History] FLUoxetine HCL [PROzac] 10 mg PO DAILY 10/08/24 [History] Insulin Glargine,Hum.rec.anlog [Lantus Solostar Pen] 20 units SQ HS 10/08/24 [History] Calcium Carbonate [Calcium] 600 mg PO BID 01/28/25 [History] Acetaminophen Tab [Tylenol] 650 mg PO Q6HR PRN tab 02/05/25 [Rx] Atorvastatin [Lipitor] 40 mg PO HS #30 tab 02/05/25 [Rx] Dapagliflozin Propanediol [Farxiga] 10 mg PO DAILY #30 tab 02/05/25 [Rx] Metoprolol Succinate (ER) [Toprol XL] 25 mg PO HS #30 tab 02/05/25 [Rx] Ascorbic Acid [Vitamin C] 500 mg PO DAILY #30 tab 02/23/25 [Rx] Cholecalciferol [Vitamin D3 (125 Mcg = 5000 Iu)] 125 mcg PO DAILY #30 tab 07/12 [Rx] Zinc Sulfate [Orazinc] 220 mg PO DAILY 15 Days #15 cap 02/23/25 [Rx] Ampicillin Sodium 2 gm IVPB Q6HR #140 each 03/19/25 [Rx] INSULIN LISPRO (HumaLOG) [HumaLOG] 20 unit SQ AC-TID each 03/19/25 [Rx] Loratadine [Claritin] 10 mg PO DAILY tab 03/19/25 [Rx] cefTRIAXone [Rocephin] 2 gm IVPB Q12H #70 each 03/19/25 [Rx] Apixaban [Eliquis] 5 mg PO BID 03/29/25 [History] Bumetanide [BUMEX] 2 mg PO DAILY 03/29/25 [History] Omeprazole [PriLOSEC] 20 mg PO DAILY 03/29/25 [History] Saline Flush 0.9% 10 ml IV Q6H 03/29/25 [History] Spironolactone [Aldactone] 25 mg PO DAILY 03/29/25 [History] Aspirin 81 mg PO DAILY tab 04/02/25 [Rx] Follow up Appointment(s)/Referral(s): Ibrahima Hua MD [Primary Care Provider] - 1-2 days Mahin Armendariz MD [STAFF PHYSICIAN] - 1 Week Patient Instructions/Handouts: Urinary Tract Infection in Women (DC), Ischemic Stroke (DC), Altered Mental Status (ED) Activity/Diet/Wound Care/Special Instructions: Follow-up with PCP and infectious disease within 1 week postop. Discharge. Continue with IV ampicillin and IV Rocephin to complete total course of 6 weeks. Discharge Disposition: TRANSFER TO SNF/ECF
[2025-04-02 14:02] VITALS: BMI 50.9
--- NOTE | 2025-04-02 14:53 | P.PN ---
Subjective Progress Note Date: 04/02/25 Principal diagnosis: Reason for follow-up is mitral valve endocarditis Patient is a 80-year-old female with a past medical history significant for diabetes mellitus hypertension hyperlipidemia atrial fibrillation recent admission to this facility patient did have a Enterococcus faecalis bacteremia MELISSA did shows evidence of mitral valve endocarditis and the patient was on outpatient IV biotics and brought back to the hospital with confusion mental status changes did have abnormal x-ray concerning for possible CHF. On today's evaluation that is 04/02/2025, Patient is afebrile this morning patient denies having any chest pain shortness of breath or cough, the patient is currently on 5 L nasal cannula oxygen, patient denies any abdominal pain no diarrhea no nausea no vomiting Patient white count 7.29, creatinine is 1.26 blood culture this admission has been negative Objective - Vital Signs Vital signs: Vital Signs Temp 97.4 F L 04/02/25 08:00 Pulse 63 04/02/25 12:00 Resp 16 04/02/25 12:00 BP 123/65 04/02/25 12:00 Pulse Ox 99 04/02/25 12:00 FiO2 40 03/31/25 04:17 Intake & Output 04/01/25 04/02/25 04/02/25 18:59 06:59 18:59 Intake Total 354 360 Output Total 172 707 1103 Balance -96 -800 -690 Weight 143.2 kg Intake: Oral 354 360 Output: Urine 012 648 4112 Other: Voiding Method External Catheter External Catheter External Catheter - Exam GENERAL DESCRIPTION: An elderly female lying in bed in no distress RESPIRATORY SYSTEM: Unlabored breathing , decreased breath sounds at bases HEART: S1 S2 regular rate and rhythm , ABDOMEN: Soft , no tenderness - Labs CBC & Chem 7: 04/02/25 07:29 04/02/25 07:29 Labs: Abnormal Lab Results - Last 24 Hours (Table) 04/01/25 04/01/25 04/02/25 Range/Units 16:21 20:21 06:11 RBC (4.10-5.20) 10*6/uL Hgb (12.0-15.0) g/dL Hct (37.2-46.3) % MCV (80.0-97.0) fL MCHC (32.0-37.0) g/dL MPV (9.5-12.2) fL Immature Gran # (0.00-0.04) 10*3/uL Lymphocytes # (0.90-5.00) 10*3/uL Sodium (137-145) mmol/L Chloride (98-107) mmol/L Carbon Dioxide (22-30) mmol/L BUN (7-17) mg/dL Creatinine (0.52-1.04) mg/dL Glucose (74-99) mg/dL POC Glucose (mg/dL) 201 H 197 H 163 H (70-110) mg/dL 04/02/25 04/02/25 04/02/25 Range/Units 07:29 07:29 11:21 RBC 2.57 L (4.10-5.20) 10*6/uL Hgb 7.6 L (12.0-15.0) g/dL Hct 25.0 L (37.2-46.3) % MCV 97.3 H (80.0-97.0) fL MCHC 30.4 L (32.0-37.0) g/dL MPV 9.1 L (9.5-12.2) fL Immature Gran # 0.05 H (0.00-0.04) 10*3/uL Lymphocytes # 0.76 L (0.90-5.00) 10*3/uL Sodium 134 L (137-145) mmol/L Chloride 94 L (98-107) mmol/L Carbon Dioxide 32 H (22-30) mmol/L BUN 38 H (7-17) mg/dL Creatinine 1.26 H (0.52-1.04) mg/dL Glucose 140 H (74-99) mg/dL POC Glucose (mg/dL) 240 H (70-110) mg/dL Microbiology - Last 24 Hours (Table) 03/28/25 23:19 Blood Culture - Preliminary Blood Assessment and Plan (1) Endocarditis of mitral valve Current Visit: Yes Status: Acute Code(s): I05.9 - RHEUMATIC MITRAL VALVE DISEASE, UNSPECIFIED SNOMED Code(s): 72105454 (2) Bacteremia Current Visit: No Status: Acute Code(s): R78.81 - BACTEREMIA SNOMED Code(s): 5137114 Plan: 1patient with recent admission to the hospital and this patient at that time did have Enterococcus faecalis bacteremia with a workup that shows evidence of mitral valve endocarditis for the patient was receiving IV ampicillin and Rocephin has been brought back to the hospital concerning for mental status change and lethargy, clinically not behaving as pneumonia chest x-ray findings are mostly suggestive of CHF in the setting of endocarditis with benefit from repeat echocardiogram to evaluate integrity of the mitral valve which was ordered 2-patient did have a significantly positive UA but no urinary symptoms likely asymptomatic bacteriuria urine did show yeast. 3patient with multiple antibiotic ALLERGIES that would limit the number of antibiotic safe to use 4patient is afebrile white count normal, plan is to continue ampicillin 2 g Q6 and switch Rocephin to 2 g every 12 to finish her 6-week course of therapy with end date of 04/24/2025 discussed with resident physician Dictation was produced using [employer] dictation software. please excuse any grammatical, word or spelling errors. Time with Patient: Less than 30
[2025-04-02 16:22] LABS: Glucose,Whole Blood 181 mg/dL (70-110)
--- NOTE | 2025-04-02 16:22 | P.PN ---
Subjective Progress Note Date: 04/02/25 Hospital course: Patient is a 80-year-old female with a history of mitral valve replacement has pacemaker, congestive heart failure (EF of 40 to 45%), obstructive sleep apnea on BiPAP at home, on home oxygen at 5 L during the day was brought to the emergency department yesterday after she was found to be confused and altered in a retirement facility where she is undergoing rehab. Patient was recently hospitalized for sepsis, Enterococcus bacteremia, infective endocarditis and was discharged to [facility] on PICC line on IV Rocephin and ampicillin. Currently, patient is feeling better and is AA0 x 1. Her daughter was in the room and as per her shoes less confused and more alert and oriented compared to yesterday but still she is not at her baseline mentation. Patient otherwise denies any shortness of breath, cough, chest pain, nausea, vomiting, diarrhea or constipation. Reports no focal neurological deficits, no dysarthria, asymmetry of the face, no numbness or weakness in upper or lower extremities. Initial lab work shows WBC of 6.56, hemoglobin 7.4, sodium 133, potassium 4.7, BUN 26, creatinine 1.17, glucose 158, alkaline phosphatase 241, troponin I 0.231, NT proBNP 6420, TSH 10.1, free T41.03. Repeat blood work shows WBC 8.0, hemoglobin 7.4, sodium 134, potassium 3.7, BUN 26, creatinine 1.20, troponin I 0.238 and 0.206. Urinalysis shows proteinuria, glycosuria, leukocyte Estrace positive. Chest x-ray shows cardiomegaly with bilateral perihilar opacities with left pleural effusion and vascular congestion noted. EKG shows no ST segment elevation, nonspecific ST-T wave changes, ventricular rate 68 bpm, PA interval 139 ms, QRS duration 154 ms, QTc 478. Brain CT shows new lacunar infarct within the left thalamus and no evidence of intracranial hemorrhage. 03/30/2025: Patient seen and examined at the bedside. Daughter was present in the room. No acute events overnight. No new complaints. Patient is currently on anticoagulation with Eliquis and had a discussion with the neurologist Dr. Mcgill to continue with Eliquis and will repeat CAT scan of the brain today to rule out any evolving stroke. No concerns for active bleeding. Lab work from today shows stable hemoglobin of 7.7. Platelet count 108. Sodium 134, potassium 4.0, BUN 32, creatinine 1.21, glucose 225, calcium 8.2. Risk versus benefit of being on anticoagulation has also been discussed with patient's daughter who was present at the bedside today. 03/31/2025: Patient seen and examined at the bedside. Daughter was present in the room. No acute events overnight. No new complaints. Patient is AAO x 1. As per daughter, patient is still not at her baseline mentation. Patient on home BiPAP overnight for sleeping with settings of FiO2 40, flow rate of 5. Patient continues to be on Eliquis and aspirin. Repeat CT of the brain showed evolving left lacunar infarct. No new focal neurological deficit. No concerns for active bleeding. Sodium 136, potassium 3.9, chloride 95, bicarb 36, BUN 32, cr eatinine 1.29, glucose 154, calcium 8.6. 04/01/2025: Patient seen and examined at the bedside. No acute events overnight. No new complaint. Patient continues to be AAO x 1. Lab work from today shows WBC 6.91, hemoglobin 7.9, sodium 136, BUN 33, creatinine 1.27, glucose 2 1, calcium 8.8. Patient likely to be discharged tomorrow. 04/02/2025: Patient seen and examined at the bedside. No acute events overnight. No new complaints. Patient is at her baseline mentation which is AAO x 1. Preaut horization to subacute rehab, SNF is still pending. Discussed with caser up and patient will most likely to be discharged on Saturday. Lab work shows WBC 7.29, hemoglobin 7.6, sodium 134, BUN 38, creatinine 1.26 glucose 140, calcium 8.7. Physical examination: Vital signs reviewed General: non toxic, no distress, appears at stated age, morbidly obese Derm: no unusual rashes/lesions, warm Head: atraumatic, normocephalic, symmetric Eyes: EOMI, no lid lag, anicteric sclera, pupils equal round reactive to light ENT: Nose and ears atraumatic Neck: No cervical lymphadenopathy, trachea midline, supple Mouth: no lip lesion, mucus membranes moist Cardiovascular: S1S2 reg, no murmur, positive dorsalis pedis pulse bilateral, 2+ pitting edema Lungs: CTA bilateral, no rhonchi, no rales, no accessory muscle use Abdominal: soft, nontender to palpation, no guarding Ext: muscle strength 5 out of 5 in all 4 extremities grossly, no gross muscle atrophy, no contractures, Neuro: CN II-XI grossly intact, no gross focal neuro deficits Psych: Alert, oriented, appropriate affect Assessment/Plan: Patient is a 80-year-old female with a history of mitral valve replacement has pacemaker, congestive heart failure (EF of 40 to 45%), obstructive sleep apnea on BiPAP at home, on home oxygen at 5 L during the day was brought to the emergency department for altered mental status. Case was discussed with the Emergency Room provider and decision was made to admit the patient for altered mental status. Active: #Acute toxic metabolic encephalopathy, infectious versus neurologic, patient at baseline mentation #Complicated UTI, continue with IV antibiotics empirically #Left lacunar infarct on CT brain #Recent history of Enterococcus bacteremia and infective endocarditis on IV Rocephin and ampicillin through PICC line Infectious disease on board Continue with IV Rocephin and ampicillin Chest x-ray does show left pleural opacity but no pneumonia less likely Blood culture, sputum culture, urine culture, urine Legionella antigen has been ordered by ED, report pending Urinalysis is positive for UTI Neurology on board Continue aspirin 81 mg once daily and Eliquis 5 mg p.o. twice daily Carotid duplex ultrasound normal Repeat CT of the brain showed evolving left lacunar stroke, continue on Eliquis #Elevated troponins likely secondary to type II NSTEMI #Valvular heart disease status post TAVR (2017), subsequently aortic valve replacement, mitral valve replacement, tricuspid valve repair in May 2024 #Acute on chronic HFpEF, echocardiogram on 03/10/2025 with ejection fraction of 55 to 60% Troponin I trending flat Continue with Bumex 2 mg p.o. daily Cardiology on board Continue with Aldactone 25 mg p.o. daily and Toprol-XL 25 mg p.o. at bedtime Continue Farxiga #Obesity hypoventilation syndrome on 5 L of oxygen at home #Obstructive sleep apnea on BiPAP at home DuoNebs as needed Continue with oxygen, patient currently at baseline #Type 2 diabetes mellitus Continue with the Lantus 20 units at bedtime Start patient on sliding scale insulin Continue monitor for hypoglycemia #Subclinical hypothyroidism Continue with Synthroid Chronic: Hypothyroidism: Resume Synthroid Anxiety/depression: Resume Prozac GERD: Resume omeprazole DVT prophylaxis: Eliquis 5 mg p.o. twice daily GI prophylaxis: Omeprazole F: None E: Replete as needed N: Heart healthy diet A: Ambulatory at baseline CODE STATUS: Full code Discussed with: Patient Anticipated discharge place: Pending clinical course Dictation was produced using [employer] dictation software. Please excuse any gr ammatical, word or spelling errors. Objective - Vital Signs Vital signs: Vital Signs Temp 97.7 F 04/02/25 15:37 Pulse 61 04/02/25 15:37 Resp 16 04/02/25 15:37 BP 116/65 04/02/25 15:37 Pulse Ox 95 04/02/25 15:37 FiO2 40 03/31/25 04:17 Intake & Output 04/01/25 04/02/25 04/02/25 18:59 06:59 18:59 Intake Total 354 720 Output Total 675 701 9339 Balance -96 -800 -730 Weight 143.2 kg 143.2 kg Intake: Oral 354 720 Output: Urine 432 857 6459 Other: Voiding Method External Catheter External Catheter External Catheter - Labs CBC & Chem 7: 04/04/25 08:33 04/05/25 07:03 Labs: Abnormal Lab Results - Last 24 Hours (Table) 04/01/25 04/01/25 04/02/25 Range/Units 16:21 20:21 06:11 RBC (4.10-5.20) 10*6/uL Hgb (12.0-15.0) g/dL Hct (37.2-46.3) % MCV (80.0-97.0) fL MCHC (32.0-37.0) g/dL MPV (9.5-12.2) fL Immature Gran # (0.00-0.04) 10*3/uL Lymphocytes # (0.90-5.00) 10*3/uL Sodium (137-145) mmol/L Chloride (98-107) mmol/L Carbon Dioxide (22-30) mmol/L BUN (7-17) mg/dL Creatinine (0.52-1.04) mg/dL Glucose (74-99) mg/dL POC Glucose (mg/dL) 201 H 197 H 163 H (70-110) mg/dL 04/02/25 04/02/25 04/02/25 Range/Units 07:29 07:29 11:21 RBC 2.57 L (4.10-5.20) 10*6/uL Hgb 7.6 L (12.0-15.0) g/dL Hct 25.0 L (37.2-46.3) % MCV 97.3 H (80.0-97.0) fL MCHC 30.4 L (32.0-37.0) g/dL MPV 9.1 L (9.5-12.2) fL Immature Gran # 0.05 H (0.00-0.04) 10*3/uL Lymphocytes # 0.76 L (0.90-5.00) 10*3/uL Sodium 134 L (137-145) mmol/L Chloride 94 L (98-107) mmol/L Carbon Dioxide 32 H (22-30) mmol/L BUN 38 H (7-17) mg/dL Creatinine 1.26 H (0.52-1.04) mg/dL Glucose 140 H (74-99) mg/dL POC Glucose (mg/dL) 240 H (70-110) mg/dL Microbiology - Last 24 Hours (Table) 03/28/25 23:19 Blood Culture - Preliminary Blood Assessment and Plan Assessment: Attestation Attestation/ News Gathering Technician Note: Attestation to Progress Note, Participation (I saw and evaluated the patient with the Resident, and I reviewed and discussed the patient with the Resident and agree with the Resident's findings and plans as documented above., management reviewed and discussed), I agree with findings & plan, Provider Signature (ENRICO DANIELLE, [facility] Vela Time with Patient: Greater than 30
--- NOTE | 2025-04-02 19:52 | P.PN ---
Subjective Progress Note Date: 04/02/25 Patient was seen for a follow-up. Patient is laying comfortably in the bed. Family members were not present. Patient states she is feeling good. Denies headache. Still somewhat encephalopathic. Objective - Vital Signs Vital signs: Vital Signs Temp 97.7 F 04/02/25 15:37 Pulse 61 04/02/25 15:37 Resp 16 04/02/25 15:37 BP 116/65 04/02/25 15:37 Pulse Ox 95 04/02/25 15:37 FiO2 40 03/31/25 04:17 Intake & Output 04/02/25 04/02/25 04/03/25 06:59 18:59 06:59 Intake Total 840 Output Total 800 1450 Balance -800 -610 Weight 143.2 kg 143.2 kg Intake: Oral 840 Output: Urine 800 1450 Other: Voiding Method External Catheter External Catheter External Catheter - Exam Patient is more alert and awake. Her face is slightly more animated. Patient knows that she is in [place] in [place] but does not know the name of the building. She states it is January and the year is 2007. Speech has no dysarthria. Attention, concentration, fund of knowledge is limited. Patient has slow mentation. Delayed latency time to answer questions. Face is symmetric, visual castillo are full with no neglect. Extraocular muscles are intact. There is no ataxia for [id number] testing. No pronator drift. Strength is completely normal in arms and legs distally and proximally. Sensations appears equal with no neglect on double simultaneous stimulation. - Labs CBC & Chem 7: 04/02/25 07:29 04/02/25 07:29 Labs: Abnormal Lab Results - Last 24 Hours (Table) 04/01/25 04/02/25 04/02/25 Range/Units 20:21 06:11 07:29 RBC 2.57 L (4.10-5.20) 10*6/uL Hgb 7.6 L (12.0-15.0) g/dL Hct 25.0 L (37.2-46.3) % MCV 97.3 H (80.0-97.0) fL MCHC 30.4 L (32.0-37.0) g/dL MPV 9.1 L (9.5-12.2) fL Immature Gran # 0.05 H (0.00-0.04) 10*3/uL Lymphocytes # 0.76 L (0.90-5.00) 10*3/uL Sodium (137-145) mmol/L Chloride (98-107) mmol/L Carbon Dioxide (22-30) mmol/L BUN (7-17) mg/dL Creatinine (0.52-1.04) mg/dL Glucose (74-99) mg/dL POC Glucose (mg/dL) 197 H 163 H (70-110) mg/dL 04/02/25 04/02/25 04/02/25 Range/Units 07:29 11:21 16:20 RBC (4.10-5.20) 10*6/uL Hgb (12.0-15.0) g/dL Hct (37.2-46.3) % MCV (80.0-97.0) fL MCHC (32.0-37.0) g/dL MPV (9.5-12.2) fL Immature Gran # (0.00-0.04) 10*3/uL Lymphocytes # (0.90-5.00) 10*3/uL Sodium 134 L (137-145) mmol/L Chloride 94 L (98-107) mmol/L Carbon Dioxide 32 H (22-30) mmol/L BUN 38 H (7-17) mg/dL Creatinine 1.26 H (0.52-1.04) mg/dL Glucose 140 H (74-99) mg/dL POC Glucose (mg/dL) 240 H 181 H (70-110) mg/dL Assessment and Plan Assessment: * 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 Patient had mild aphasia, improving. * Altered mental status, likely due to toxic metabolic encephalopathy. Reasons multifactorial as mentioned below. * Anemia * Thrombocytopenia, resolved * Hypercapnia * Mild renal insufficiency * Elevated troponins * Abnormal UA, rule out UTI * Recent history of endocarditis of mitral valve, on IV antibiotics. * Hyponatremia * Hypothyroidism * Acute on chronic heart failure with EF 40 to 45%. 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 * Pacemaker * Folate deficiency Plan: * Repeat CT head 03/30/2025 revealed acute infarct in the left thalamus. Appears slightly more prominent in size. No acute intra or extra-axial hemorrhage. No mass effect or midline shift. Moderate age-appropriate atrophy and chronic ischemic white matter demyelination. I personally reviewed CT head, agree with the findings. There is evidence of an acute to subacute left thalamic infarct. * Initial CT head reported new lacunar infarct within the left thalamus from prior CT 03/08/2025. No evidence for intracranial hemorrhage. Nonspecific white matter changes, likely secondary to chronic small vessel ischemic disease. * Carotid Doppler revealed no hemodynamically significant stenosis of the ICA on either side. Antegrade flow in both vertebral arteries. * 2D echo performed 01/30/2025 revealed suboptimal study with EF 40 to 45%. Mildly reduced global left ventricular systolic function. Moderate right ventricular dilation. Severe pulmonary hypertension. Moderate right atrial dilation. Severe left atrial dilation. * Continue Eliquis 5 mg twice daily. Also on aspirin 81 mg daily. * Lipid panel with cholesterol 159, LDL 90, HDL 48 and triglycerides 99. Continue Lipitor 40 mg daily. * Hemoglobin A1c 7.4 on 03/22/2025. Recommend optimize control of diabetes to target A1c <7.0. * B12 1033, folate is low 4.20. We will start folate replacement. TSH is 10.10 and free T4 1.04. We will defer to IM to address hypothyroidism. * EEG was abnormal due to background slowing of moderate degree. This is suggestive of generalized cerebral dysfunction as can be seen with toxic metabolic encephalopathy, or related to diffuse structural brain abnormality. Clinical correlation is recommended. No epileptiform activity was seen. * Patient currently on ampicillin 2 g every 6 hours, ceftriaxone 2 g every 12 hours. ID following. * Treatment of further medical conditions as per IM and other specialties on board. * Discussed with patient's daughter. * Patient awaiting bed in rehab facility. Neurology will sign off. Please reconsult neurology if any concerns. Dr. Evans starting neurology service in the morning.
[2025-04-02 20:25] LABS: Glucose,Whole Blood 141 mg/dL (70-110)
[2025-04-03 06:21] LABS: Glucose,Whole Blood 134 mg/dL (70-110)
[2025-04-03 08:43] LABS: HCT 26.4 % (37.2-46.3); HGB 8.2 g/dL (12.0-15.0); MCH 30.6 pg (27.0-32.0); MCHC 31.1 g/dL (32.0-37.0); MCV 98.5 fL (80.0-97.0); Mean Platelet Volume 9.6 fL (9.5-12.2); Platelet Count 145 10*3/uL (140-440); RBC 2.68 10*6/uL (4.10-5.20); WBC 7.13 10*3/uL (4.50-10.00)
[2025-04-03 09:10] LABS: African American GFR (CKD) 52 (>60 ml/min/1.73 sqM); Anion Gap 8 mmol/L; Blood Urea Nitrogen 39 mg/dL (7-17); Calcium 8.8 mg/dL (8.4-10.2); Carbon Dioxide 32 mmol/L (22-30); Chloride 96 mmol/L (98-107); Glucose 111 mg/dL (74-99); Non-African American GFR(CKD) 45 (>60 ml/min/1.73 sqM); Potassium 4.1 mmol/L (3.5-5.1); Sodium 136 mmol/L (137-145)
[2025-04-03 11:35] LABS: Glucose,Whole Blood 235 mg/dL (70-110)
--- NOTE | 2025-04-03 13:32 | P.PN ---
Subjective Progress Note Date: 04/03/25 Hospital course: Patient is a 80-year-old female with a history of mitral valve replacement has pacemaker, congestive heart failure (EF of 40 to 45%), obstructive sleep apnea on BiPAP at home, on home oxygen at 5 L during the day was brought to the emergency department yesterday after she was found to be confused and altered in a skilled nursing facility where she is undergoing rehab. Patient was recently hospitalized for sepsis, Enterococcus bacteremia, infective endocarditis and was discharged to [facility] on PICC line on IV Rocephin and ampicillin. Currently, patient is feeling better and is AA0 x 1. Her daughter was in the room and as per her shoes less confused and more alert and oriented compared to yesterday but still she is not at her baseline mentation. Patient otherwise denies any shortness of breath, cough, chest pain, nausea, vomiting, diarrhea or constipation. Reports no focal neurological deficits, no dysarthria, asymmetry of the face, no numbness or weakness in upper or lower extremities. Initial lab work shows WBC of 6.56, hemoglobin 7.4, sodium 133, potassium 4.7, BUN 26, creatinine 1.17, glucose 158, alkaline phosphatase 241, troponin I 0.231, NT proBNP 6420, TSH 10.1, free T41.03. Repeat blood work shows WBC 8.0, hemoglobin 7.4, sodium 134, potassium 3.7, BUN 26, creatinine 1.20, troponin I 0.238 and 0.206. Urinalysis shows proteinuria, glycosuria, leukocyte Estrace positive. Chest x-ray shows cardiomegaly with bilateral perihilar opacities with left pleural effusion and vascular congestion noted. EKG shows no ST segment elevation, nonspecific ST-T wave changes, ventricular rate 68 bpm, DE interval 139 ms, QRS duration 154 ms, QTc 478. Brain CT shows new lacunar infarct within the left thalamus and no evidence of intracranial hemorrhage. 03/30/2025: Patient seen and examined at the bedside. Daughter was present in the room. No acute events overnight. No new complaints. Patient is currently on anticoagulation with Eliquis and had a discussion with the neurologist Dr. Mcgill to continue with Eliquis and will repeat CAT scan of the brain today to rule out any evolving stroke. No concerns for active bleeding. Lab work from today shows stable hemoglobin of 7.7. Platelet count 108. Sodium 134, potassium 4.0, BUN 32, creatinine 1.21, glucose 225, calcium 8.2. Risk versus benefit of being on anticoagulation has also been discussed with patient's daughter who was present at the bedside today. 03/31/2025: Patient seen and examined at the bedside. Daughter was present in the room. No acute events overnight. No new complaints. Patient is AAO x 1. As per daughter, patient is still not at her baseline mentation. Patient on home BiPAP overnight for sleeping with settings of FiO2 40, flow rate of 5. Patient continues to be on Eliquis and aspirin. Repeat CT of the brain showed evolving left lacunar infarct. No new focal neurological deficit. No concerns for active bleeding. Sodium 136, potassium 3.9, chloride 95, bicarb 36, BUN 32, cr eatinine 1.29, glucose 154, calcium 8.6. 04/01/2025: Patient seen and examined at the bedside. No acute events overnight. No new complaint. Patient continues to be AAO x 1. Lab work from today shows WBC 6.91, hemoglobin 7.9, sodium 136, BUN 33, creatinine 1.27, glucose 2 1, calcium 8.8. Patient likely to be discharged tomorrow. 04/02/2025: Patient seen and examined at the bedside. No acute events overnight. No new complaints. Patient is at her baseline mentation which is AAO x 1. Preaut horization to subacute rehab, SNF is still pending. Discussed with case assistant and patient will most likely to be discharged on Saturday. Lab work shows WBC 7.29, hemoglobin 7.6, sodium 134, BUN 38, creatinine 1.26 glucose 140, calcium 8.7. 04/03/2025: Patient seen and examined at the bedside. No acute events overnight. Patient is at her baseline mentation. Preauthorization for subacute rehab is pending. Likely discharge on Saturday. No reported today shows WBC 7.13, hemoglobin 8.2, sodium 136, potassium 4.1, BUN 39, creatinine 1.16. Physical examination: Vital signs reviewed General: non toxic, no distress, appears at stated age, morbidly obese Derm: no unusual rashes/lesions, warm Head: atraumatic, normocephalic, symmetric Eyes: EOMI, no lid lag, anicteric sclera, pupils equal round reactive to light ENT: Nose and ears atraumatic Neck: No cervical lymphadenopathy, trachea midline, supple Mouth: no lip lesion, mucus membranes moist Cardiovascular: S1S2 reg, no murmur, positive dorsalis pedis pulse bilateral, 2+ pitting edema Lungs: CTA bilateral, no rhonchi, no rales, no accessory muscle use Abdominal: soft, nontender to palpation, no guarding Ext: muscle strength 5 out of 5 in all 4 extremities grossly, no gross muscle atrophy, no contractures, Neuro: CN II-XI grossly intact, no gross focal neuro deficits Psych: Alert, oriented, appropriate affect Assessment/Plan: Patient is a 80-year-old female with a history of mitral valve replacement has pacemaker, congestive heart failure (EF of 40 to 45%), obstructive sleep apnea on BiPAP at home, on home oxygen at 5 L during the day was brought to the emergency department for altered mental status. Case was discussed with the Emergency Room provider and decision was made to admit the patient for altered mental status. Active: #Acute toxic metabolic encephalopathy, infectious versus neurologic, patient at baseline mentation #Complicated UTI, continue with IV antibiotics empirically #Left lacunar infarct on CT brain #Recent history of Enterococcus bacteremia and infective endocarditis on IV Rocephin and ampicillin through PICC line Infectious disease on board Continue with IV Rocephin and ampicillin Chest x-ray does show left pleural opacity but no pneumonia less likely Blood culture, sputum culture, urine culture, urine Legionella antigen has been ordered by ED, report pending Urinalysis is positive for UTI Neurology on board Continue aspirin 81 mg once daily and Eliquis 5 mg p.o. twice daily Carotid duplex ultrasound normal Repeat CT of the brain showed evolving left lacunar stroke, continue on Eliquis #Elevated troponins likely secondary to type II NSTEMI #Valvular heart disease status post TAVR (2017), subsequently aortic valve replacement, mitral valve replacement, tricuspid valve repair in May 2024 #Acute on chronic HFpEF, echocardiogram on 03/10/2025 with ejection fraction of 55 to 60% Troponin I trending flat Continue with Bumex 2 mg p.o. daily Cardiology on board Continue with Aldactone 25 mg p.o. daily and Toprol-XL 25 mg p.o. at bedtime Continue Farxiga #Obesity hypoventilation syndrome on 5 L of oxygen at home #Obstructive sleep apnea on BiPAP at home DuoNebs as needed Continue with oxygen, patient currently at baseline #Type 2 diabetes mellitus Continue with the Lantus 20 units at bedtime Start patient on sliding scale insulin Continue monitor for hypoglycemia #Subclinical hypothyroidism Continue with Synthroid Chronic: Hypothyroidism: Resume Synthroid Anxiety/depression: Resume Prozac GERD: Resume omeprazole DVT prophylaxis: Eliquis 5 mg p.o. twice daily GI prophylaxis: Omeprazole F: None E: Replete as needed N: Heart healthy diet A: Ambulatory at baseline CODE STATUS: Full code Discussed with: Patient Anticipated discharge place: Pending clinical course Dictation was produced using [employer] dictation software. Please excuse any grammatical, word or spelling errors. Objective - Vital Signs Vital signs: Vital Signs Temp 97.9 F 04/02/25 20:00 Pulse 60 04/03/25 04:00 Resp 16 04/03/25 04:00 BP 115/66 04/03/25 04:00 Pulse Ox 98 04/03/25 04:00 FiO2 40 03/31/25 04:17 Intake & Output 04/02/25 04/03/25 04/03/25 18:59 06:59 18:59 Intake Total 840 Output Total 1450 200 Balance -610 -200 Weight 143.2 kg 142 kg Intake: Oral 840 Output: Urine 1450 200 Other: Voiding Method External Catheter External Catheter - Labs CBC & Chem 7: 04/04/25 08:33 04/05/25 07:03 Labs: Abnormal Lab Results - Last 24 Hours (Table) 04/02/25 04/02/25 04/02/25 Range/Units 11:21 16:20 20:24 POC Glucose (mg/dL) 240 H 181 H 141 H (70-110) mg/dL 04/03/25 Range/Units 06:20 POC Glucose (mg/dL) 134 H (70-110) mg/dL Assessment and Plan Assessment: Attestation Attestation/ Office Helper Note: Attestation to Progress Note, Participation (I saw and evaluated the patient with the Resident, and I reviewed and discussed the patient with the Resident and agree with the Resident's findings and plans as documented above., management reviewed and discussed), I agree with findings & plan, Provider Signature (ENRICO DANIELLE, ALEX Vela
[2025-04-03] MEDS: DOCUSATE 100 MG CAP PO SCH (13:37)
--- NOTE | 2025-04-03 16:32 | P.PN ---
Subjective Progress Note Date: 04/03/25 Principal diagnosis: Reason for follow-up is mitral valve endocarditis Patient is a 80-year-old female with a past medical history significant for diabetes mellitus hypertension hyperlipidemia atrial fibrillation recent admission to this facility patient did have a Enterococcus faecalis bacteremia MELISSA did shows evidence of mitral valve endocarditis and the patient was on outpatient IV biotics and brought back to the hospital with confusion mental status changes did have abnormal x-ray concerning for possible CHF. On today's evaluation that is 04/03/2025,the patient denies any fever or any chills, patient is breathing comfortably on 5 L nasal oxygen, the patient denies chest pain shortness of breath and no significant cough, patient denies abdominal pain, no nausea vomiting or diarrhea. The patient white count 7.13, creatinine 1.16 blood culture has been negative. Objective - Vital Signs Vital signs: Vital Signs Temp 97.5 F L 04/03/25 16:00 Pulse 57 L 04/03/25 16:00 Resp 17 04/03/25 16:00 BP 124/66 04/03/25 16:00 Pulse Ox 100 04/03/25 16:00 FiO2 40 03/31/25 04:17 Intake & Output 04/02/25 04/03/25 04/03/25 18:59 06:59 18:59 Intake Total 840 720 Output Total 4720 884 8697 Balance -610 -200 -480 Weight 143.2 kg 142 kg Intake: Oral 840 720 Output: Urine 0697 590 8425 Other: Voiding Method External Catheter External Catheter External Catheter # Voids 3 # Bowel Movements 2 - Exam GENERAL DESCRIPTION: An elderly female lying in bed in no distress RESPIRATORY SYSTEM: Unlabored breathing , decreased breath sounds at bases HEART: S1 S2 regular rate and rhythm , ABDOMEN: Soft , no tenderness - Labs CBC & Chem 7: 04/03/25 08:21 04/03/25 08:21 Labs: Abnormal Lab Results - Last 24 Hours (Table) 04/02/25 04/03/25 04/03/25 Range/Units 20:24 06:20 08:21 RBC 2.68 L (4.10-5.20) 10*6/uL Hgb 8.2 L (12.0-15.0) g/dL Hct 26.4 L (37.2-46.3) % MCV 98.5 H (80.0-97.0) fL MCHC 31.1 L (32.0-37.0) g/dL Sodium (137-145) mmol/L Chloride (98-107) mmol/L Carbon Dioxide (22-30) mmol/L BUN (7-17) mg/dL Creatinine (0.52-1.04) mg/dL Glucose (74-99) mg/dL POC Glucose (mg/dL) 141 H 134 H (70-110) mg/dL 04/03/25 04/03/25 Range/Units 08:21 11:33 RBC (4.10-5.20) 10*6/uL Hgb (12.0-15.0) g/dL Hct (37.2-46.3) % MCV (80.0-97.0) fL MCHC (32.0-37.0) g/dL Sodium 136 L (137-145) mmol/L Chloride 96 L (98-107) mmol/L Carbon Dioxide 32 H (22-30) mmol/L BUN 39 H (7-17) mg/dL Creatinine 1.16 H (0.52-1.04) mg/dL Glucose 111 H (74-99) mg/dL POC Glucose (mg/dL) 235 H (70-110) mg/dL Microbiology - Last 24 Hours (Table) 03/28/25 23:19 Blood Culture - Final Blood Assessment and Plan (1) Endocarditis of mitral valve Current Visit: Yes Status: Acute Code(s): I05.9 - RHEUMATIC MITRAL VALVE DISEASE, UNSPECIFIED SNOMED Code(s): 32420644 (2) Bacteremia Current Visit: No Status: Acute Code(s): R78.81 - BACTEREMIA SNOMED Code(s): 0634793 Plan: 1patient with recent admission to the hospital and this patient at that time did have Enterococcus faecalis bacteremia with a workup that shows evidence of mitral valve endocarditis for the patient was receiving IV ampicillin and Rocephin has been brought back to the hospital concerning for mental status change and lethargy, clinically not behaving as pneumonia chest x-ray findings are mostly suggestive of CHF in the setting of endocarditis with benefit from repeat echocardiogram to evaluate integrity of the mitral valve which was ordered 2-patient did have a significantly positive UA but no urinary symptoms likely asymptomatic bacteriuria urine did show yeast. 3patient with multiple antibiotic ALLERGIES that would limit the number of antibiotic safe to use 4patient is afebrile white count normal 5patient is currently being treated with ampicillin 2 g Q6 and switch Rocephin to 2 g every 12 to finish her 6-week course of therapy, waiting for placement Dictation was produced using [employer] dictation software. please excuse any grammatical, word or spelling errors. Time with Patient: Less than 30
[2025-04-03 16:37] LABS: Glucose,Whole Blood 178 mg/dL (70-110)
[2025-04-03 19:55] LABS: Glucose,Whole Blood 217 mg/dL (70-110)
[2025-04-04 05:57] LABS: Glucose,Whole Blood 105 mg/dL (70-110)
[2025-04-04 08:39] LABS: Basophils # (A) 0.05 10*3/uL (0.00-0.10); Basophils % (A) 0.7 %; Eosinophils # (A) 0.24 10*3/uL (0.04-0.35); Eosinophils % (A) 3.2 %; HCT 25.7 % (37.2-46.3); Lymphocytes # (A) 0.73 10*3/uL (0.90-5.00); Lymphocytes % (A) 9.8 %; MCH 30.2 pg (27.0-32.0); MCHC 31.1 g/dL (32.0-37.0); Mean Platelet Volume 9.1 fL (9.5-12.2); Monocytes # (A) 0.36 10*3/uL (0.20-1.00); Monocytes % (A) 4.9 %; Neutrophils # (A) 5.99 10*3/uL (1.80-7.70); Neutrophils % (A) 80.7 %; Platelet Count 146 10*3/uL (140-440); RBC 2.65 10*6/uL (4.10-5.20); RDW 18.1 % (11.5-14.5); WBC 7.42 10*3/uL (4.50-10.00)
[2025-04-04 09:04] LABS: African American GFR (CKD) 50 (>60 ml/min/1.73 sqM); Anion Gap 5 mmol/L; Blood Urea Nitrogen 38 mg/dL (7-17); Calcium 8.4 mg/dL (8.4-10.2); Carbon Dioxide 32 mmol/L (22-30); Chloride 99 mmol/L (98-107); Glucose 93 mg/dL (74-99); Non-African American GFR(CKD) 44 (>60 ml/min/1.73 sqM); Potassium 4.1 mmol/L (3.5-5.1); Sodium 136 mmol/L (137-145)
[2025-04-04] MEDS: ZINC OXIDE PASTE (Z-GUARD) 1 APPLIC TOPICAL PRN (09:10)
[2025-04-04 11:19] LABS: Glucose,Whole Blood 154 mg/dL (70-110)
--- NOTE | 2025-04-04 15:09 | P.PN ---
Subjective Progress Note Date: 04/04/25 Principal diagnosis: Reason for follow-up is mitral valve endocarditis Patient is a 80-year-old female with a past medical history significant for diabetes mellitus hypertension hyperlipidemia atrial fibrillation recent admission to this facility patient did have a Enterococcus faecalis bacteremia MELISSA did shows evidence of mitral valve endocarditis and the patient was on outpatient IV biotics and brought back to the hospital with confusion mental status changes did have abnormal x-ray concerning for possible CHF. On today's evaluation that is 04/04/2025,the patient remains to be afebrile, patient is on 5 L nasal cannula supplemental oxygen and denies any shortness of breath no chest pain or cough.Patient denies having any nausea or vomiting, no abdominal pain and no diarrhea has been reported. Patient white count 7.4, creatinine is 1.19 Objective - Vital Signs Vital signs: Vital Signs Temp 97.6 F 04/04/25 08:00 Pulse 65 04/04/25 11:44 Resp 16 04/04/25 11:44 BP 130/64 04/04/25 11:44 Pulse Ox 100 04/04/25 11:44 FiO2 40 03/31/25 04:17 Intake & Output 04/03/25 04/04/25 04/04/25 18:59 06:59 18:59 Intake Total 960 660 Output Total 0843 768 3520 Balance -740 -450 -690 Weight 138.544 kg Intake: Oral 960 660 Output: Urine 3455 252 8153 Other: Voiding Method External Catheter External Catheter External Catheter # Voids 3 # Bowel Movements 2 - Exam GENERAL DESCRIPTION: An elderly female lying in bed in no distress RESPIRATORY SYSTEM: Unlabored breathing , decreased breath sounds at bases HEART: S1 S2 regular rate and rhythm , ABDOMEN: Soft , no tenderness - Labs CBC & Chem 7: 04/04/25 08:33 04/04/25 08:33 Labs: Abnormal Lab Results - Last 24 Hours (Table) 04/03/25 04/03/25 04/04/25 Range/Units 16:35 19:53 08:33 RBC 2.65 L (4.10-5.20) 10*6/uL Hgb 8.0 L (12.0-15.0) g/dL Hct 25.7 L (37.2-46.3) % MCHC 31.1 L (32.0-37.0) g/dL MPV 9.1 L (9.5-12.2) fL Immature Gran # 0.05 H (0.00-0.04) 10*3/uL Lymphocytes # 0.73 L (0.90-5.00) 10*3/uL Sodium (137-145) mmol/L Carbon Dioxide (22-30) mmol/L BUN (7-17) mg/dL Creatinine (0.52-1.04) mg/dL POC Glucose (mg/dL) 178 H 217 H (70-110) mg/dL 04/04/25 04/04/25 Range/Units 08:33 11:17 RBC (4.10-5.20) 10*6/uL Hgb (12.0-15.0) g/dL Hct (37.2-46.3) % MCHC (32.0-37.0) g/dL MPV (9.5-12.2) fL Immature Gran # (0.00-0.04) 10*3/uL Lymphocytes # (0.90-5.00) 10*3/uL Sodium 136 L (137-145) mmol/L Carbon Dioxide 32 H (22-30) mmol/L BUN 38 H (7-17) mg/dL Creatinine 1.19 H (0.52-1.04) mg/dL POC Glucose (mg/dL) 154 H (70-110) mg/dL Microbiology - Last 24 Hours (Table) 03/28/25 23:19 Blood Culture - Final Blood Assessment and Plan (1) Endocarditis of mitral valve Current Visit: Yes Status: Acute Code(s): I05.9 - RHEUMATIC MITRAL VALVE DI SEASE, UNSPECIFIED SNOMED Code(s): 78243414 (2) Bacteremia Current Visit: No Status: Acute Code(s): R78.81 - BACTEREMIA SNOMED Code(s): 2550377 Plan: 1patient with recent admission to the hospital and this patient at that time did have Enterococcus faecalis bacteremia with a workup that shows evidence of mitral valve endocarditis for the patient was receiving IV ampicillin and Rocephin has been brought back to the hospital concerning for mental status change and lethargy, clinically not behaving as pneumonia chest x-ray findings are mostly suggestive of CHF in the setting of endocarditis with benefit from repeat echocardiogram to evaluate integrity of the mitral valve which was ordered 2-patient did have a significantly positive UA but no urinary symptoms likely asymptomatic bacteriuria urine did show yeast. 3patient with multiple antibiotic ALLERGIES that would limit the number of antibiotic safe to use 4patient is afebrile white count normal, patient to continue with ampicillin 2 g Q6 and switch Rocephin to 2 g every 12 to finish her 6-week course of therapy, waiting for placement Daughter at the bedside question answered Dictation was produced using [employer] dictation software. please excuse any grammatical, word or spelling errors. Time with Patient: Less than 30
[2025-04-04 16:24] LABS: Glucose,Whole Blood 218 mg/dL (70-110)
[2025-04-04 20:12] LABS: Glucose,Whole Blood 234 mg/dL (70-110)
--- NOTE | 2025-04-04 22:39 | P.PN ---
Subjective Progress Note Date: 04/04/25 Patient is a 80-year-old female with a history of mitral valve replacement has pacemaker, congestive heart failure (EF of 40 to 45%), obstructive sleep apnea on BiPAP at home, on home oxygen at 5 L during the day was brought to the emergency department yesterday after she was found to be confused and altered in a [facility] facility where she is undergoing [facility]. Patient was recently hospitalized for sepsis, Enterococcus bacteremia, infective endocarditis and was discharged to [facility] on PICC line on IV Rocephin and ampicillin. Currently, patient is feeling better and is AA0 x 1. Her daughter was in the room and as per her shoes less confused and more alert and oriented compared to yesterday but still she is not at her baseline mentation. Patient otherwise denies any shortness of breath, cough, chest pain, nausea, vomiting, diarrhea or constipation. Reports no focal neurological deficits, no dysarthria, asymmetry of the face, no numbness or weakness in upper or lower extremities. Initial lab work shows WBC of 6.56, hemoglobin 7.4, sodium 133, potassium 4.7, BUN 26, creatinine 1.17, glucose 158, alkaline phosphatase 241, troponin I 0.231, NT proBNP 6420, TSH 10.1, free T41.03. Repeat blood work shows WBC 8.0, hemoglobin 7.4, sodium 134, potassium 3.7, BUN 26, creatinine 1.20, troponin I 0.238 and 0.206. Urinalysis shows proteinuria, glycosuria, leukocyte Estrace positive. Chest x-ray shows cardiomegaly with bilateral perihilar opacities with left pleural effusion and vascular congestion noted. EKG shows no ST segment elevation, nonspecific ST-T wave changes, ventricular rate 68 bpm, W[place] interval 139 ms, QRS duration 154 ms, QTc 478. Brain CT shows new lacunar infarct within the left thalamus and no evidence of intracranial hemorrhage. 03/30/2025: Patient seen and examined at the bedside. Daughter was present in the room. No acute events overnight. No new complaints. Patient is currently on anticoagulation with Eliquis and had a discussion with the neurologist Dr. Mcgill to continue with Eliquis and will repeat CAT scan of the brain today to rule out any evolving stroke. No concerns for active bleeding. Lab work from today shows stable hemoglobin of 7.7. Platelet count 108. Sodium 134, potassium 4.0, BUN 32, creatinine 1.21, glucose 225, calcium 8.2. Risk versus benefit of being on anticoagulation has also been discussed with patient's daughter who was pr esent at the bedside today. 03/31/2025: Patient seen and examined at the bedside. Daughter was present in the room. No acute events overnight. No new complaints. Patient is AAO x 1. As per daught er, patient is still not at her baseline mentation. Patient on home BiPAP overnight for sleeping with settings of FiO2 40, flow rate of 5. Patient continues to be on Eliquis and aspirin. Repeat CT of the brain showed evolving left lacunar infarct. No new focal neurological deficit. No concerns for active bleeding. Sodium 136, potassium 3.9, chloride 95, bicarb 36, BUN 32, creatinine 1.29, glucose 154, calcium 8.6. 04/01/2025: Patient seen and examined at the bedside. No acute events overnight. No new complaint. Patient continues to be AAO x 1. Lab work from today shows WBC 6.91, hemoglobin 7.9, sodium 136, BUN 33, creatinine 1.27, glucose 2 1, calcium 8.8. Patient likely to be discharged tomorrow. 04/02/2025: Patient seen and examined at the bedside. No acute events overnight. No new complaints. Patient is at her baseline mentation which is AAO x 1. Preauthorization to subacute rehab, SNF is still pending. Discussed with director case and patient will most likely to be discharged on Saturday. Lab work shows WBC 7.29, hemoglobin 7.6, sodium 134, BUN 38, creatinine 1.26 glucose 140, calcium 8.7. 04/03/2025: Patient seen and examined at the bedside. No acute events overnight. Patient is at her baseline mentation. Preauthorization for subacute rehab is pending. Likely discharge on Saturday. No reported today shows WBC 7.13, hemoglobin 8.2, sodium 136, potassium 4.1, BUN 39, creatinine 1.16. 04/04/2025 Patient is sitting in the chair. Awake alert and mentation is at baseline. No complaints of chest pain or shortness of breath. Able to tolerate oral diet. Afebrile. No nausea or vomiting or abdominal pain or diarrhea. Laboratory data WBC 7.4 hemoglobin 8.0 and platelets 146 sodium 136 potassium 4.1 chloride, bicarb 32, BUN 38 and creatinine 1.19 and blood sugar 93 and calcium 8.4. Patient is being continued on antibiotics in the form of ampicillin IV and ceftriaxone 2 g every 12 Physical examination: Vital signs reviewed General: non toxic, no distress, appears at stated age, morbidly obese Derm: no unusual rashes/lesions, warm Head: atraumatic, normocephalic, symmetric Eyes: EOMI, no lid lag, anicteric sclera, pupils equal round reactive to light ENT: Nose and ears atraumatic Neck: No cervical lymphadenopathy, trachea midline, supple Mouth: no lip lesion, mucus membranes moist Cardiovascular: S1S2 reg, no murmur, positive dorsalis pedis pulse bilateral, 2+ pitting edema Lungs: CTA bilateral, no rhonchi, no rales, no accessory muscle use Abdominal: soft, nontender to palpation, no guarding Ext: muscle strength 5 out of 5 in all 4 extremities grossly, no gross muscle atrophy, no contractures, Neuro: CN II-XI grossly intact, no gross focal neuro deficits Psych: Alert, oriented, appropriate affect Assessment/Plan: Patient is a 80-year-old female with a history of mitral valve replacement has pacemaker, congestive heart failure (EF of 40 to 45%), obstructive sleep apnea on BiPAP at home, on home oxygen at 5 L during the day was brought to the emergency department for altered mental status. Case was discussed with the Emergency Room provider and decision was made to admit the patient for altered mental status. Active: #Acute toxic metabolic encephalopathy, infectious versus neurologic, patient at baseline mentation #Complicated UTI, continue with IV antibiotics empirically #Left lacunar infarct on CT brain #Recent history of Enterococcus bacteremia and infective endocarditis on IV Rocephin and ampicillin through PICC line Infectious disease on board Continue with IV Rocephin and ampicillin Chest x-ray does show left pleural opacity but no pneumonia less likely Blood culture, sputum culture, urine culture, urine Legionella antigen has been ordered by ED, report pending Urinalysis is positive for UTI Neurology on board Continue aspirin 81 mg once daily and Eliquis 5 mg p.o. twice daily Carotid duplex ultrasound normal Repeat CT of the brain showed evolving left lacunar stroke, continue on Eliquis #Elevated troponins likely secondary to type II NSTEMI #Valvular heart disease status post TAVR (2017), subsequently aortic valve replacement, mitral valve replacement, tricuspid valve repair in May 2024 #Acute on chronic HFpEF, echocardiogram on 03/10/2025 with ejection fraction of 55 to 60% Troponin I trending flat Continue with Bumex 2 mg p.o. daily Cardiology on board Continue with Aldactone 25 mg p.o. daily and Toprol-XL 25 mg p.o. at bedtime Continue Farxinh #Obesity hypoventilation syndrome on 5 L of oxygen at home #Obstructive sleep apnea on BiPAP at home DuoNebs as needed Continue with oxygen, patient currently at baseline #Type 2 diabetes mellitus Continue with the Lantus 20 units at bedtime Start patient on sliding scale insulin Continue monitor for hypoglycemia #Subclinical hypothyroidism Continue with Synthroid Chronic: Hypothyroidism: Resume Synthroid Anxiety/depression: Resume Prozac GERD: Resume omeprazole DVT prophylaxis: Eliquis 5 mg p.o. twice daily GI prophylaxis: Omeprazole F: None E: Replete as needed N: Heart healthy diet A: Ambulatory at baseline CODE STATUS: Full code Discussed with: Patient Anticipated discharge place: Pending clinical course Dictation was produced using [employer] dictation software. Please excuse any grammatical, word or spelling errors. Objective - Vital Signs Vital signs: Vital Signs Temp 98.0 F 04/04/25 19:55 Pulse 66 04/04/25 19:55 Resp 20 04/04/25 19:55 BP 115/72 04/04/25 19:55 Pulse Ox 99 04/04/25 19:55 FiO2 40 03/31/25 04:17 Intake & Output 04/04/25 04/04/25 04/05/25 06:59 18:59 06:59 Intake Total 1920 Output Total 450 2350 250 Balance -450 -430 -250 Weight 138.544 kg Intake: Oral 1920 Output: Urine 450 2350 250 Other: Voiding Method External Catheter External Catheter - Labs CBC & Chem 7: 04/04/25 08:33 04/04/25 08:33 Labs: Abnormal Lab Results - Last 24 Hours (Table) 04/04/25 04/04/25 04/04/25 Range/Units 08:33 08:33 11:17 RBC 2.65 L (4.10-5.20) 10*6/uL Hgb 8.0 L (12.0-15.0) g/dL Hct 25.7 L (37.2-46.3) % MCHC 31.1 L (32.0-37.0) g/dL MPV 9.1 L (9.5-12.2) fL Immature Gran # 0.05 H (0.00-0.04) 10*3/uL Lymphocytes # 0.73 L (0.90-5.00) 10*3/uL Sodium 136 L (137-145) mmol/L Carbon Dioxide 32 H (22-30) mmol/L BUN 38 H (7-17) mg/dL Creatinine 1.19 H (0.52-1.04) mg/dL POC Glucose (mg/dL) 154 H (70-110) mg/dL 04/04/25 04/04/25 Range/Units 16:23 20:11 RBC (4.10-5.20) 10*6/uL Hgb (12.0-15.0) g/dL Hct (37.2-46.3) % MCHC (32.0-37.0) g/dL MPV (9.5-12.2) fL Immature Gran # (0.00-0.04) 10*3/uL Lymphocytes # (0.90-5.00) 10*3/uL Sodium (137-145) mmol/L Carbon Dioxide (22-30) mmol/L BUN (7-17) mg/dL Creatinine (0.52-1.04) mg/dL POC Glucose (mg/dL) 218 H 234 H (70-110) mg/dL Assessment and Plan Time with Patient: Greater than 30
[2025-04-05 06:03] LABS: Glucose,Whole Blood 165 mg/dL (70-110)
[2025-04-05 08:16] LABS: ALT 20 U/L (4-34); AST 42 U/L (14-36); African American GFR (CKD) 51 (>60 ml/min/1.73 sqM); Albumin 2.9 g/dL (3.5-5.0); Alkaline Phosphatase 186 U/L (38-126); Anion Gap 7 mmol/L; Blood Urea Nitrogen 44 mg/dL (7-17); Calcium 8.5 mg/dL (8.4-10.2); Carbon Dioxide 34 mmol/L (22-30); Chloride 98 mmol/L (98-107); Glucose 137 mg/dL (74-99); Non-African American GFR(CKD) 44 (>60 ml/min/1.73 sqM); Potassium 3.8 mmol/L (3.5-5.1); Sodium 139 mmol/L (137-145); Total Bilirubin 0.6 mg/dL (0.2-1.3); Total Protein 6.5 g/dL (6.3-8.2)
[2025-04-05 08:50] VITALS: RESP 16; TEMP 98
[2025-04-05 11:18] LABS: Glucose,Whole Blood 198 mg/dL (70-110)
--- NOTE | 2025-04-05 12:44 | P.DS ---
Providers Date of admission: 03/28/25 22:19 Attending physician: Maye Hager Consults: 03/28/25 22:15 Consult Physician Routine Consulting Provider: Mahin Armendariz Consult Reason/Comments: sepsis Do you want consulting provider notified?: Yes 03/29/25 09:29 Consult Physician Routine Consulting Provider: Caleb Evans Consult Reason/Comments: abnormal CT Do you want consulting provider notified?: Yes Primary care physician: Ibrahima Hua MD Hospital Course: Discharge Diagnosis: #Complicated UTI #Left lacunar infarct on CT brain, #Mild aphasia, improving #Recent history of Enterococcus bacteremia and infective endocarditis on IV Rocephin and ampicillin through PICC line #Elevated troponin, type II NSTEMI, ACS ruled out #Valvular heart disease status post TAVR (2017), subsequently aortic valve replacement, mitral valve replacement, tricuspid valve repair in May 2024 #Acute on chronic HFpEF, echocardiogram on 03/10/2025 with ejection fraction of 55 to 60% #Obesity ventilation syndrome on 5 L of oxygen at home #Obstructive sleep apnea on BiPAP at at home #Type 2 diabetes mellitus #Subclinical hypothyroidism #Acute toxic metabolic encephalopathy, multifactorial as above Hospital Course: Patient is a 80-year-old female with a history of mitral valve replacement has pacemaker, congestive heart failure (EF of 40 to 45%), obstructive sleep apnea on BiPAP at home, on home oxygen at 5 L during the day was brought to the emergency department yesterday after she was found to be confused and altered in a [facility] facility where she is undergoing [facility]hab. Patient was recently hospitalized for sepsis, Enterococcus bacteremia, infective endocarditis and was discharged to [facility] on PICC line on IV Rocephin and ampicillin. Currently, patient is feeling better and is AA0 x 1. Her daughter was in the room and as per her shoes less confused and more alert and oriented compared to yesterday but still she is not at her baseline mentation. Patient otherwise denies any shortness of breath, cough, chest pain, nausea, vomiting, diarrhea or constipation. Reports no focal neurological deficits, no dysarthria, asymmetry of the face, no numbness or weakness in upper or lower extremities. Initial lab work shows WBC of 6.56, hemoglobin 7.4, sodium 133, potassium 4.7, BUN 26, creatinine 1.17, glucose 158, alkaline phosphatase 241, troponin I 0.231, NT proBNP 6420, TSH 10.1, free T41.03. Repeat blood work shows WBC 8.0, hemoglobin 7.4, sodium 134, potassium 3.7, BUN 26, creatinine 1.20, troponin I 0.238 and 0.206. Urinalysis shows proteinuria, glycosuria, leukocyte Estrace positive. Chest x-ray shows cardiomegaly with bilateral perihilar opacities with left pleural effusion and vascular congestion noted. EKG shows no ST segment elevation, nonspecific ST-T wave changes, ventricular rate 68 bpm, [place] interval 139 ms, QRS duration 154 ms, QTc 478. Brain CT shows new lacunar infarct within the left thalamus and no evidence of intracranial hemorrhage. 03/30/2025: Patient seen and examined at the bedside. Daughter was present in the room. No acute events overnight. No new complaints. Patient is currently on anticoagulation with Eliquis and had a discussion with the neurologist Dr. Mcgill to continue with Eliquis and will repeat CAT scan of the brain today to rule out any evolving stroke. No concerns for active bleeding. Lab work from today shows stable hemoglobin of 7.7. Platelet count 108. Sodium 134, potassium 4.0, BUN 32, creatinine 1.21, glucose 225, calcium 8.2. Risk versus benefit of being on anticoagulation has also been discussed with patient's daughter who was present at the bedside today. 03/31/2025: Patient seen and examined at the bedside. Daughter was present in the room. No acute events overnight. No new complaints. Patient is AAO x 1. As per daughter, patient is still not at her baseline mentation. Patient on home BiPAP overnight for sleeping with settings of FiO2 40, flow rate of 5. Patient continues to be on Eliquis and aspirin. Repeat CT of the brain showed evolving left lacunar infarct. No new focal neurological deficit. No concerns for active bleeding. Sodium 136, potassium 3.9, chloride 95, bicarb 36, BUN 32, creatinine 1.29, glucose 154, calcium 8.6. 04/01/2025: Patient seen and examined at the bedside. No acute events overnight. No new complaint. Patient continues to be AAO x 1. Lab work from today shows WBC 6.91, hemoglobin 7.9, sodium 136, BUN 33, creatinine 1.27, glucose 2 1, calcium 8.8. 04/02/2025: Patient is at her baseline mentation. Will continue on aspirin and Eliquis. Risk versus benefit of anticoagulation antiplatelet were discussed with the patient as well as daughter. 04/03/2025: Patient seen and examined at the bedside. No acute events overnight. Patient i s at her baseline mentation. Preauthorization for subacute rehab is pending. Likely discharge on Saturday. No reported today shows WBC 7.13, hemoglobin 8.2, sodium 136, potassium 4.1, BUN 39, creatinine 1.16. 04/04/2025 Patient is sitting in the chair. Awake alert and mentation is at baseline. No complaints of chest pain or shortness of breath. Able to tolerate oral diet. Afebrile. No nausea or vomiting or abdominal pain or diarrhea. Laboratory data WBC 7.4 hemoglobin 8.0 and platelets 146 sodium 136 potassium 4.1 chloride, bicarb 32, BUN 38 and creatinine 1.19 and blood sugar 93 and yaakov cium 8.4. Patient is being continued on antibiotics in the form of ampicillin IV and ceftriaxone 2 g every 12 04/05/2025: Patient is at her baseline mentation. Will continue on aspirin and Eliquis. Risk versus benefit of anticoagulation antiplatelet were discussed with the patient as well as daughter. Patient will return to subacute rehab and will continue to finish her course of IV antibiotics. Patient will follow-up with her PCP and infectious disease posthospital discharge. Cardiology, infectious disease, neurology cleared patient for discharge. Discharge disposition: [facility]/ECF Vital signs reviewed General: non toxic, no distress, appears at stated age, morbidly obese Derm: no unusual rashes/lesions, warm Head: atraumatic, normocephalic, symmetric Eyes: EOMI, no lid lag, anicteric sclera, pupils equal round reactive to light ENT: Nose and ears atraumatic Neck: No cervical lymphadenopathy, trachea midline, supple Mouth: no lip lesion, mucus membranes moist Cardiovascular: S1S2 reg, no murmur, positive dorsalis pedis pulse bilateral, 2+ pitting edema Lungs: CTA bilateral, no rhonchi, no rales, no accessory muscle use Abdominal: soft, nontender to palpation, no guarding Ext: muscle strength 5 out of 5 in all 4 extremities grossly, no gross muscle atrophy, no contractures, Neuro: CN II-XI grossly intact, no gross focal neuro deficits Psych: Alert, oriented, appropriate affect Dictation was produced using [employer] dictation software. Please excuse any grammatical, word or spelling errors. Attestation I have seen and examined this patient with my resident , discussed the same with the resident/EYAD, and agree with the dictator's assessment and plan as written Dr. Jensen lopez Plan - Discharge Summary Discharge Rx Participant: No New Discharge Prescriptions: New Aspirin 81 mg PO DAILY tab Continue Levothyroxine Sodium [Levoxyl] 175 mcg PO DAILY Calcium Carbonate [Calcium] 600 mg PO BID Dapagliflozin Propanediol [Farxiga] 10 mg PO DAILY #30 tab cefTRIAXone [Rocephin] 2 gm IVPB Q12H #70 each Ampicillin Sodium 2 gm IVPB Q6HR #140 each INSULIN LISPRO (HumaLOG) [HumaLOG] 20 unit SQ AC-TID each Apixaban [Eliquis] 5 mg PO BID Omeprazole [PriLOSEC] 20 mg PO DAILY FLUoxetine HCL [PROzac] 10 mg PO DAILY Insulin Glargine,Hum.rec.anlog [Lantus Solostar Pen] 20 units SQ HS Atorvastatin [Lipitor] 40 mg PO HS #30 tab Metoprolol Succinate (ER) [Toprol XL] 25 mg PO HS #30 tab Acetaminophen Tab [Tylenol] 650 mg PO Q6HR PRN tab PRN Reason: Fever And/ Or Pain Zinc Sulfate [Orazinc] 220 mg PO DAILY 15 Days #15 cap Ascorbic Acid [Vitamin C] 500 mg PO DAILY #30 tab Cholecalciferol [Vitamin D3 (125 Mcg = 5000 Iu)] 125 mcg PO DAILY #30 tab Loratadine [Claritin] 10 mg PO DAILY tab Saline Flush 0.9% 10 ml IV Q6H Bumetanide [BUMEX] 2 mg PO DAILY Spironolactone [Aldactone] 25 mg PO DAILY Discharge Medication List Levothyroxine Sodium [Levoxyl] 175 mcg PO DAILY 10/25/20 [History] FLUoxetine HCL [PROzac] 10 mg PO DAILY 10/08/24 [History] Insulin Glargine,Hum.rec.anlog [Lantus Solostar Pen] 20 units SQ HS 10/08/24 [History] Calcium Carbonate [Calcium] 600 mg PO BID 01/28/25 [History] Acetaminophen Tab [Tylenol] 650 mg PO Q6HR PRN tab 02/05/25 [Rx] Atorvastatin [Lipitor] 40 mg PO HS #30 tab 02/05/25 [Rx] Dapagliflozin Propanediol [Farxiga] 10 mg PO DAILY #30 tab 02/05/25 [Rx] Metoprolol Succinate (ER) [Toprol XL] 25 mg PO HS #30 tab 02/05/25 [Rx] Ascorbic Acid [Vitamin C] 500 mg PO DAILY #30 tab 02/23/25 [Rx] Cholecalciferol [Vitamin D3 (125 Mcg = 5000 Iu)] 125 mcg PO DAILY #30 tab 02/23/25 [Rx] Zinc Sulfate [Orazinc] 220 mg PO DAILY 15 Days #15 cap 02/23/25 [Rx] Ampicillin Sodium 2 gm IVPB Q6HR #140 each 03/19/25 [Rx] INSULIN LISPRO (HumaLOG) [HumaLOG] 20 unit SQ AC-TID each 03/19/25 [Rx] Loratadine [Claritin] 10 mg PO DAILY tab 03/19/25 [Rx] cefTRIAXone [Rocephin] 2 gm IVPB Q12H #70 each 03/19/25 [Rx] Apixaban [Eliquis] 5 mg PO BID 03/29/25 [History] Bumetanide [BUMEX] 2 mg PO DAILY 03/29/25 [History] Omeprazole [PriLOSEC] 20 mg PO DAILY 03/29/25 [History] Saline Flush 0.9% 10 ml IV Q6H 03/29/25 [History] Spironolactone [Aldactone] 25 mg PO DAILY 03/29/25 [History] Aspirin 81 mg PO DAILY tab 04/02/25 [Rx] Follow up Appointment(s)/Referral(s): Ibrahima Hua MD [Primary Care Provider] - 1-2 days Mahin Armendariz MD [STAFF PHYSICIAN] - 1 Week Patient Instructions/Handouts: Urinary Tract Infection in Women (DC), Ischemic Stroke (DC), Altered Mental Status (ED) Activity/Diet/Wound Care/Special Instructions: Follow-up with PCP and infectious disease within 1 week postop. Discharge. Continue with IV ampicillin and IV Rocephin to complete total course of 6 weeks. Discharge Disposition: TRANSFER TO SNF/ECF
[2025-04-05 12:58] VITALS: BP 130/65; PULSE 65
--- NOTE | 2025-04-05 16:25 | P.PN ---
Subjective Progress Note Date: 04/05/25 Principal diagnosis: Reason for follow-up is mitral valve endocarditis Patient is a 80-year-old female with a past medical history significant for diabetes mellitus hypertension hyperlipidemia atrial fibrillation recent admission to this facility patient did have a Enterococcus faecalis bacteremia MELISSA did shows evidence of mitral valve endocarditis and the patient was on outpatient IV biotics and brought back to the hospital with confusion mental status changes did have abnormal x-ray concerning for possible CHF. On today's evaluation that is 04/05/2025, the patient continues to be afebrile, the patient is on 5 L nasal oxygen and breathing comfortably, the Pt denies having any chest pain or cough, the patient denies having any abdominal pain no vomiting or any diarrhea, mention feeling better. Patient did have a creatinine of 1.17 no CBC was done today blood culture this admission has been negative Objective - Vital Signs Vital signs: Vital Signs Temp 98.0 F 04/05/25 08:00 Pulse 64 04/05/25 08:00 Resp 16 04/05/25 08:00 BP 128/69 04/05/25 08:00 Pulse Ox 100 04/05/25 08:00 FiO2 40 03/31/25 04:17 Intake & Output 04/04/25 04/05/25 04/05/25 18:59 06:59 18:59 Intake Total 1920 20 10 Output Total 2350 250 Balance -430 -230 10 Weight 136.5 kg Intake: IV 20 10 Invasive Line 1 20 10 Oral 1920 Output: Urine 2350 250 Other: Voiding Method External Catheter External Catheter # Voids 1 - Exam GENERAL DESCRIPTION: An elderly female lying in bed in no distress RESPIRATORY SYSTEM: Unlabored breathing , decreased breath sounds at bases HEART: S1 S2 regular rate and rhythm , ABDOMEN: Soft , no tenderness - Labs CBC & Chem 7: 04/04/25 08:33 04/05/25 07:03 Labs: Abnormal Lab Results - Last 24 Hours (Table) 04/04/25 04/04/25 04/04/25 Range/Units 11:17 16:23 20:11 Carbon Dioxide (22-30) mmol/L BUN (7-17) mg/dL Creatinine (0.52-1.04) mg/dL Glucose (74-99) mg/dL POC Glucose (mg/dL) 154 H 218 H 234 H (70-110) mg/dL AST (14-36) U/L Alkaline Phosphatase (38-126) U/L Albumin (3.5-5.0) g/dL 04/05/25 04/05/25 Range/Units 06:01 07:03 Carbon Dioxide 34 H (22-30) mmol/L BUN 44 H (7-17) mg/dL Creatinine 1.17 H (0.52-1.04) mg/dL Glucose 137 H (74-99) mg/dL POC Glucose (mg/dL) 165 H (70-110) mg/dL AST 42 H (14-36) U/L Alkaline Phosphatase 186 H (38-126) U/L Albumin 2.9 L (3.5-5.0) g/dL Assessment and Plan (1) Endocarditis of mitral valve Status: Acute Code(s): I05.9 - RHEUMATIC MITRAL VALVE DISEASE, UNSPECIFIED SNOMED Code(s): 61282634 (2) Bacteremia Status: Acute Code(s): R78.81 - BACTEREMIA SNOMED Code(s): 8816454 Plan: 1patient with recent admission to the hospital and this patient at that time did have Enterococcus faecalis bacteremia with a workup that shows evidence of mitral valve endocarditis for the patient was receiving IV ampicillin and Rocephin has been brought back to the hospital concerning for mental status change and lethargy, clinically not behaving as pneumonia chest x-ray findings are mostly suggestive of CHF in the setting of endocarditis with benefit from repeat echocardiogram to evaluate integrity of the mitral valve which was ordered 2-patient did have a significantly positive UA but no urinary symptoms likely asymptomatic bacteriuria urine did show yeast. 3patient with multiple antibiotic ALLERGIES that would limit the number of antibiotic safe to use 4patient is afebrile white count normal blood culture this admission has been negative as well, 5patient to continue with ampicillin 2 g Q6 and switch Rocephin to 2 g every 12 to finish her 6-week course of therapy, and a close outpatient follow-up Daughter at the bedside question answered Dictation was produced using [employer] software. please excuse any grammatical, word or spelling errors. Time with Patient: Less than 30
== END 2025-04-05 15:32 | DRG 64 ==
LOC: EC 19:51 → 3SCARD 22:19
PROVIDERS: ADMIT Hospitalist; ATTEND Hospitalist
PROC: 5A09357 Assistance with Respiratory Ventilation, Less than 24 Consecutive Hours, Continuous Positive Airway Pressure (ICD-10-PCS; principal; 2025-03-29)
DX: I63.81 Other cerebral infarction due to occlusion or stenosis of small artery (principal); G92.8 Other toxic encephalopathy; I50.43 Acute on chronic combined systolic (congestive) and diastolic (congestive) heart failure; I21.A1 Myocardial infarction type 2; D69.6 Thrombocytopenia, unspecified; E66.2 Morbid (severe) obesity with alveolar hypoventilation; E87.1 Hypo-osmolality and hyponatremia; I48.0 Paroxysmal atrial fibrillation; R47.01 Aphasia; E11.9 Type 2 diabetes mellitus without complications; I11.0 Hypertensive heart disease with heart failure; E89.0 Postprocedural hypothyroidism; F32.A Depression, unspecified; Z95.2 Presence of prosthetic heart valve; D64.9 Anemia, unspecified; Z68.42 Body mass index [BMI] 45.0-49.9, adult; N39.0 Urinary tract infection, site not specified; Z79.4 Long term (current) use of insulin; E53.8 Deficiency of other specified B group vitamins; E78.5 Hyperlipidemia, unspecified; Z99.81 Dependence on supplemental oxygen; E89.2 Postprocedural hypoparathyroidism; F41.9 Anxiety disorder, unspecified; H91.90 Unspecified hearing loss, unspecified ear; I05.9 Rheumatic mitral valve disease, unspecified; I25.10 Atherosclerotic heart disease of native coronary artery without angina pectoris; I25.2 Old myocardial infarction; K21.9 Gastro-esophageal reflux disease without esophagitis; N28.9 Disorder of kidney and ureter, unspecified; Z79.01 Long term (current) use of anticoagulants; Z79.82 Long term (current) use of aspirin; Z79.84 Long term (current) use of oral hypoglycemic drugs; Z79.890 Hormone replacement therapy; Z79.899 Other long term (current) drug therapy; Z86.79 Personal history of other diseases of the circulatory system; Z95.0 Presence of cardiac pacemaker; Z95.5 Presence of coronary angioplasty implant and graft; Z96.653 Presence of artificial knee joint, bilateral; Z86.19 Personal history of other infectious and parasitic diseases; Z96.693 Finger-joint replacement, bilateral; Z87.01 Personal history of pneumonia (recurrent)
CPT/HCPCS: 36415; 70450; 71045; 80048; 80053; 81001; 82140; 82607; 82746; 82803; 83605; 83735; 83880; 84100; 84439; 84443; 84484; 85025; 85027; 85610; 85730; 87040; 87086; 87449; 93880; 94660; 94760; 95816; 96365; 99285